=== PATIENT | female | born 1965 | race Caucasian/White ===

== ENCOUNTER 2016-07-28 15:19 | Emergency (ER) | payer OTHER, BC ==
[~2016-07-28 15:19] MED LIST: AVALOX; CEFT2ADD IM; DIFL150T OR; EFFE150C OR; HYDR25TA6 OR; IBUP800T OR; LEVAQUIN PO; LISI40TA OR; LODINE; LYRI300C OR; PREV30TA OR; VIT D 2000 PO; XOPE1.252 IN; ZYZOL PO
[2016-07-28] MEDS ORDERED: PERCOCET 5MG/325MG TAB As Ordered ONE (16:57)
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
--- NOTE | 2016-07-28 18:33 | REP ---
Bilateral wrist series: Eight views: History: Trauma. Findings: Four views of the right wrist demonstrate normal bones, joints, and soft tissues. No fracture or subluxation is seen. Four views of the left wrist demonstrate normal bones, joints, and soft tissues as well. Impression: Negative bilateral wrist series. No fracture seen. Signed by Oziel Davison MD 07/28/2016 08:06 P
--- NOTE | 2016-07-28 18:34 | REP ---
Right knee series: Five views: History: Trauma. Findings: There is medial and patellofemoral compartment osteoarthritic spurring. No fracture or subluxation is seen. No evidence of joint effusion. Impression: Osteoarthritis. No fracture or other acute bony abnormality. Signed by Oziel Davison MD 07/28/2016 08:06 P
--- NOTE | 2016-07-28 18:35 | REP ---
Left ankle series: Four views: History: Trauma. Comparison radiographs of the left foot are reviewed from 11/27/2010. Findings: Four views of the left ankle demonstrate tibiotalar osteophyte formation posteriorly. Plantar calcaneal spurring is noted. No fracture is seen. Ankle mortise is intact. Impression: No fracture noted. Signed by Oziel Davison MD 07/28/2016 08:06 P
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
== END 2016-07-28 17:51 | disposition home or self-care (01) ==
LOC: M ED 15:19
DX: S60.211A Contusion of right wrist, initial encounter (principal); S60.212A Contusion of left wrist, initial encounter; S80.01XA Contusion of right knee, initial encounter; S90.02XA Contusion of left ankle, initial encounter; J30.2 Other seasonal allergic rhinitis; M06.9 Rheumatoid arthritis, unspecified; I10 Essential (primary) hypertension; Z79.899 Other long term (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; Z91.030 Bee allergy status; V49.40XA Driver injured in collision with unspecified motor vehicles in traffic accident, initial encounter; Y92.410 Unspecified street and highway as the place of occurrence of the external cause; Y93.89 Activity, other specified; Y99.9 Unspecified external cause status

== ENCOUNTER → 2016-08-05 | Outpatient (CLI) | payer BC, OTHER ==
[~2016-08-05] MED LIST changes: +METHACHOLINE KIT (J7674) INH ONE
== END ==
LOC: M CARPUL 07-15 13:00
PROVIDERS: ATTEND Nurse Practitioner Adult Health
DX: R05 Cough (principal); Z53.9 Procedure and treatment not carried out, unspecified reason

== ENCOUNTER → 2016-08-08 | Outpatient (CLI) | payer OTHER, BC ==
[~2016-08-08] MED LIST changes: -METHACHOLINE KIT (J7674) INH ONE
--- NOTE | 2016-08-08 12:51 | REP ---
THORACIC SPINE, THREE VIEWS: HISTORY: Muscle strain. There is no acute fracture or subluxation. The intervertebral discs are normal in height. Osteophytes are present in the mid and lower thoracic spine. A dorsal column stimulator is present in the spinal canal with the tip at the T6-7 level. IMPRESSION: Degenerative change as described above. Signed by Ramu Dunbar MD 08/08/2016 01:02 P
--- NOTE | 2016-08-08 12:53 | REP ---
LUMBAR SPINE, FIVE VIEWS: HISTORY: Muscle strain. COMPARISON: 02/09/2005. The patient is status post L5-S1 anterior and posterior spinal fusion. Metal cages are present anteriorly and metal rods and pedicle screws posteriorly. There is no acute fracture or subluxation. The L3-4 and L4-5 intervertebral discs are decreased in height consistent with disc degeneration. Osteophytes are present on L3 and 4. The facet joints are normal in appearance. IMPRESSION: The patient is status post L5-S1 anterior and posterior spinal fusion. There is anatomic alignment of the lumbar spine. Signed by Ramu Dunbar MD 08/08/2016 01:02 P
== END ==
LOC: M RAD 11:58
PROVIDERS: ATTEND Nurse Practitioner Family
DX: M51.34 Other intervertebral disc degeneration, thoracic region (principal); M51.26 Other intervertebral disc displacement, lumbar region; M54.16 Radiculopathy, lumbar region; M96.1 Postlaminectomy syndrome, not elsewhere classified; Z98.1 Arthrodesis status; M25.539 Pain in unspecified wrist; G62.9 Polyneuropathy, unspecified; I10 Essential (primary) hypertension; T14.8 Other injury of unspecified body region; Y92.89 Other specified places as the place of occurrence of the external cause; M25.572 Pain in left ankle and joints of left foot; M25.561 Pain in right knee

== ENCOUNTER → 2016-08-15 | Outpatient (CLI) | payer BC, OTHER ==
--- NOTE | 2016-08-15 17:06 | REP ---
Focused left breast sonography: History: Left breast cellulitis 4 o'clock. Question abscess. Findings: The left breast is scanned at about the 4 o'clock region. No abnormal fluid collection is seen. Slightly heterogeneous fibroglandular background echotexture is seen. Impression: BIRADS category 1 negative focused left breast sonography. No evidence of mass or abscess. Signed by Oziel Davison MD 08/15/2016 05:47 P
== END ==
LOC: M RAD 14:55
PROVIDERS: ATTEND Family Medicine
DX: N61.0 Mastitis without abscess (principal)

== ENCOUNTER → 2017-01-01 | Outpatient (CLI) | payer OTHER, BC ==
[2017-01-01 11:45] LABS: ANION GAP 8 MEQ/L (8-16); BLOOD UREA NITROGEN 13 MG/DL (7-18); CALCIUM LEVEL 8.7 MG/DL (8.5-10.1); CARBON DIOXIDE LEVEL 31 MEQ/L (21-32); CHLORIDE LEVEL 102 MEQ/L (98-107); CREATININE FOR GFR 0.62 MG/DL (0.55-1.02); GLOMERULAR FILTRATION RATE > 60.0 (>51); GLUCOSE, FASTING 133 MG/DL (70-105); SODIUM LEVEL 141 MEQ/L (136-145)
== END ==
LOC: M LAB 10:54
PROVIDERS: ATTEND Orthopaedic Surgery
DX: Z51.81 Encounter for therapeutic drug level monitoring (principal); Z79.899 Other long term (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

== ENCOUNTER → 2017-01-05 | Outpatient (CLI) | payer BC, OTHER ==
[2017-01-05 14:53] LABS: ANION GAP 11 MEQ/L (8-16); BLOOD UREA NITROGEN 14 MG/DL (7-18); CALCIUM LEVEL 8.2 MG/DL (8.5-10.1); CARBON DIOXIDE LEVEL 27 MEQ/L (21-32); CHLORIDE LEVEL 103 MEQ/L (98-107); CREATININE FOR GFR 0.56 MG/DL (0.55-1.02); GLOMERULAR FILTRATION RATE > 60.0 (>51); GLUCOSE, FASTING 117 MG/DL (70-105); POTASSIUM SERUM 3.5 MEQ/L (3.5-5.1); SODIUM LEVEL 141 MEQ/L (136-145)
== END ==
LOC: M WUC 12:32
PROVIDERS: ATTEND Physician Assistant Medical
DX: R73.01 Impaired fasting glucose (principal); Z79.899 Other long term (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

== ENCOUNTER 2017-05-19 09:04 | Outpatient (RCR) | payer OTHER | END 2017-05-31 | LOC: M PT 09:04 | DX: Z51.89 Encounter for other specified aftercare (principal); M25.561 Pain in right knee; G89.29 Other chronic pain | CPT/HCPCS: 97010 ==

== ENCOUNTER 2017-06-03 12:47 | Outpatient (RCR) | payer OTHER | END 2017-07-01 | LOC: M PT 12:47 | DX: Z51.89 Encounter for other specified aftercare (principal); M25.511 Pain in right shoulder; G89.29 Other chronic pain | CPT/HCPCS: 97010 ==

== ENCOUNTER → 2017-07-17 | Outpatient (CLI) | payer BC, OTHER ==
[2017-07-17 13:26] LABS: BASO # 0.1 10^3/uL (0.0-0.2); BASO % 0.7 % (0.0-1.0); EOS # 0.2 10^3/uL (0.0-0.50); EOS % 2.6 % (0.0-3.0); HEMATOCRIT 39.2 % (36.0-47.0); HEMOGLOBIN 12.6 g/dl (12.0-16.0); IMMATURE GRANULOCYTE % 0.4 % (0-3.0); LYMPH # 3.2 10^3/uL (1.5-4.5); LYMPH % 46.2 % (24.0-44.0); MEAN CORPUSCULAR HEMOGLOBIN 29.2 pg (27.0-33.0); MEAN CORPUSCULAR HGB CONC 32.1 g/dl (32.0-36.5); MEAN CORPUSCULAR VOLUME 90.7 fl (80.0-96.0); MONO # 0.3 10^3/uL (0.0-0.8); MONO % 4.9 % (0.0-5.0); NEUTROPHILS # 3.1 10^3/uL (1.8-7.7); NEUTROPHILS % 45.2 % (36.0-66.0); PLATELET COUNT, AUTOMATED 267 10^3/uL (150-450); RED BLOOD COUNT 4.32 10^6/uL (4.00-5.40); RED CELL DISTRIBUTION WIDTH 13.5 % (11.5-14.5); WHITE BLOOD COUNT 6.9 10^3/uL (4.0-10.0)
[2017-07-17 13:48] LABS: ESTIMATED AVERAGE GLUCOSE 137 MG/DL (60-110); HEMOGLOBIN A1c 6.4 %
[2017-07-17 13:54] LABS: ALBUMIN/GLOBULIN RATIO 1.21 (1.00-1.93); ALKALINE PHOSPHATASE 72 U/L (45-117); ALT/SGPT 42 U/L (12-78); ANION GAP 7 MEQ/L (8-16); AST/SGOT 22 U/L (7-37); BILIRUBIN,TOTAL 0.6 MG/DL (0.2-1.0); BLOOD UREA NITROGEN 17 MG/DL (7-18); CALCIUM LEVEL 8.7 MG/DL (8.5-10.1); CARBON DIOXIDE LEVEL 32 MEQ/L (21-32); CHLORIDE LEVEL 102 MEQ/L (98-107); CHOLESTEROL LEVEL 155 MG/DL (<200); CHOLESTEROL RISK RATIO 2.719 (<5); CREATININE FOR GFR 0.68 MG/DL (0.55-1.30); GLOMERULAR FILTRATION RATE > 60.0 (>51); GLUCOSE, FASTING 108 MG/DL (70-100); HDL CHOLESTEROL 57 MG/DL (>40); NON-HDL-C 98 MG/DL; POTASSIUM SERUM 3.9 MEQ/L (3.5-5.1); SODIUM LEVEL 141 MEQ/L (136-145); TOTAL PROTEIN 7.3 GM/DL (6.4-8.2); TRIGLYCERIDES LEVEL 145 MG/DL (<150)
[2017-07-17 14:07] LABS: CREATININE, URINE 29.7 MG/DL; MALB URINE SIEMENS < 5.0 MG/L; MAU/CREAT RATIO 16.8 MCG/MG (0.0-30.0)
== END ==
LOC: M SMT 11:46
DX: E11.9 Type 2 diabetes mellitus without complications (principal); I10 Essential (primary) hypertension
CPT/HCPCS: 80053

== ENCOUNTER 2017-11-26 07:58 | Day surgery (SDC) | payer BC, OTHER ==
[~2017-11-26 07:58] MED LIST changes: -AVALOX; -CEFT2ADD IM; -DIFL150T OR; -EFFE150C OR; -HYDR25TA6 OR; -IBUP800T OR; -LEVAQUIN PO; +LIDOCAINE 2% INJ 100 MG/5 ML SDV (FOR ANES.) As Ordered; -LISI40TA OR; -LODINE; -LYRI300C OR; -PREV30TA OR; +PROPOFOL 200 MG/20 ML VIAL As Ordered; -VIT D 2000 PO; -XOPE1.252 IN; -ZYZOL PO
[2017-11-26] MEDS: NS 1,000 ML IV (08:15)
[2017-11-26] MEDS ORDERED: LABETALOL HCL 100 MG/20 ML VIAL As Ordered ×2 (09:12)
== END 2017-11-26 10:04 | disposition home or self-care (01) ==
LOC: M OPP 07:58
DX: Z12.11 Encounter for screening for malignant neoplasm of colon (principal); R00.8 Other abnormalities of heart beat; I10 Essential (primary) hypertension; E78.5 Hyperlipidemia, unspecified; E11.9 Type 2 diabetes mellitus without complications; M06.9 Rheumatoid arthritis, unspecified; M54.9 Dorsalgia, unspecified; M79.7 Fibromyalgia; M35.00 Sjogren syndrome, unspecified; M51.9 Unspecified thoracic, thoracolumbar and lumbosacral intervertebral disc disorder; F41.9 Anxiety disorder, unspecified; R51 Headache; Z97.8 Presence of other specified devices; Z78.0 Asymptomatic menopausal state; G47.30 Sleep apnea, unspecified; J45.909 Unspecified asthma, uncomplicated; Z98.1 Arthrodesis status; Z98.84 Bariatric surgery status; Z88.1 Allergy status to other antibiotic agents; Z91.030 Bee allergy status; Z79.4 Long term (current) use of insulin; Z79.899 Other long term (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
CPT/HCPCS: G0121

== ENCOUNTER → 2018-02-15 | Outpatient (CLI) | payer BC, OTHER ==
[2018-02-15 15:08] LABS: ANION GAP 10 MEQ/L (8-16); BLOOD UREA NITROGEN 24 MG/DL (7-18); CALCIUM LEVEL 9.1 MG/DL (8.5-10.1); CARBON DIOXIDE LEVEL 30 MEQ/L (21-32); CHLORIDE LEVEL 102 MEQ/L (98-107); CHOLESTEROL LEVEL 137 MG/DL (<200); CHOLESTEROL RISK RATIO 2.537 (<5); GLOMERULAR FILTRATION RATE > 60.0 (>51); GLUCOSE, FASTING 113 MG/DL (70-100); HDL CHOLESTEROL 54 MG/DL (>40); LDL CHOLESTEROL 59 MG/DL (<100); NON-HDL-C 83 MG/DL; SODIUM LEVEL 142 MEQ/L (136-145); TRIGLYCERIDES LEVEL 119 MG/DL (<150)
[2018-02-15 15:27] LABS: ESTIMATED AVERAGE GLUCOSE 128 MG/DL (60-110); HEMOGLOBIN A1c 6.1 %
== END ==
LOC: M SMT 08:47
DX: E11.9 Type 2 diabetes mellitus without complications (principal)
CPT/HCPCS: 83036

== ENCOUNTER → 2018-06-07 | Outpatient (CLI) | payer OTHER, BC ==
[~2018-06-07] MED LIST changes: +ALDA25TA2 PO; +ATOR40TA75 PO; +AVALOX; +CEFT2ADD IM; +CLON1TAB8 PO; +CYCL10TA PO; +DICL75TA PO; +DIFL150T OR; +EFFE150C PO; +FISH1000 PO; +GABA-843 PO; +HUMI40KI2 SC; +HYDR-3716 PO; +HYDR25TA6 OR; +HYDR25TAB PO; +IBUP800T OR; +LEUC5TA PO; +LEVAQUIN PO; -LIDOCAINE 2% INJ 100 MG/5 ML SDV (FOR ANES.) As Ordered; +LISI40TA OR; +LODINE; +LOSA100T50 PO; +LYRI300C OR; +METF10004 PO; +METH2.5T48 PO; +POTA10TA16 PO; +POTA10TA17 PO; +PREV30TA OR; -PROPOFOL 200 MG/20 ML VIAL As Ordered; +REST0.057 OU; +VIT D 2000 PO; +XOPE1.252 IN; +ZYZOL PO
[2018-06-07 13:31] LABS: BLOOD UREA NITROGEN 21 MG/DL (7-18); CALCIUM LEVEL 8.3 MG/DL (8.5-10.1); CARBON DIOXIDE LEVEL 27 MEQ/L (21-32); CHLORIDE LEVEL 104 MEQ/L (98-107); CREATININE FOR GFR 0.71 MG/DL (0.55-1.30); GLOMERULAR FILTRATION RATE > 60.0 (>51); GLUCOSE, FASTING 129 MG/DL (70-100); POTASSIUM SERUM 3.8 MEQ/L (3.5-5.1); SODIUM LEVEL 141 MEQ/L (136-145)
[2018-06-07 14:06] LABS: HEMOGLOBIN A1c 6.6 %
== END ==
LOC: M WUC 09:52
PROVIDERS: ATTEND Family Medicine
DX: I10 Essential (primary) hypertension (principal); E11.9 Type 2 diabetes mellitus without complications

== ENCOUNTER → 2018-09-21 | Outpatient (CLI) | payer BC, OTHER, MEDICARE ==
[~2018-09-21] MED LIST changes: +ACTE20IN SC; +BACL10TA2; +CEVI30CAP PO; +KLON0.5T PO; +LACRILUBE
[2018-09-21 19:06] LABS: BASO # 0.1 10^3/uL (0.0-0.2); BASO % 1.1 % (0.0-1.0); EOS # 0.3 10^3/uL (0.0-0.50); EOS % 3.9 % (0.0-3.0); HEMOGLOBIN 13.4 g/dl (12.0-15.5); LYMPH # 3.2 10^3/uL (1.5-4.5); LYMPH % 39.7 % (24.0-44.0); MEAN CORPUSCULAR HGB CONC 33.5 g/dl (32.0-36.5); MEAN CORPUSCULAR VOLUME 95.5 fl (80.0-96.0); MONO # 0.6 10^3/uL (0.0-0.8); MONO % 7.6 % (0.0-5.0); NEUTROPHILS # 3.8 10^3/uL (1.8-7.7); NEUTROPHILS % 46.8 % (36.0-66.0); PLATELET COUNT, AUTOMATED 291 10^3/uL (150-450); RED BLOOD COUNT 4.19 10^6/uL (4.00-5.40)
[2018-09-21 20:08] LABS: ALBUMIN 4.2 GM/DL (3.2-5.2); ALT/SGPT 35 U/L (12-78); BILIRUBIN,TOTAL 0.5 MG/DL (0.2-1.0); BLOOD UREA NITROGEN 19 MG/DL (7-18); CALCIUM LEVEL 8.7 MG/DL (8.5-10.1); CARBON DIOXIDE LEVEL 29 MEQ/L (21-32); CHLORIDE LEVEL 104 MEQ/L (98-107); CREATININE FOR GFR 0.92 MG/DL (0.55-1.30); FREE T4 1.03 NG/DL (0.76-1.46); GLOMERULAR FILTRATION RATE > 60.0 (>51); GLUCOSE, FASTING 75 MG/DL (70-100); POTASSIUM SERUM 4.3 MEQ/L (3.5-5.1); SODIUM LEVEL 141 MEQ/L (136-145); TOTAL 25(OH) VITAMIN D 36.8 NG/ML (30.0-100.0); TOTAL PROTEIN 7.2 GM/DL (6.4-8.2)
== END ==
LOC: M SMT 14:19
PROVIDERS: ATTEND Physician Assistant
DX: R53.83 Other fatigue (principal)

== ENCOUNTER → 2018-09-22 | Outpatient (REF) | payer OTHER, MEDICARE | LOC: M LAB REF 18:08 | PROVIDERS: ATTEND Physician Assistant | DX: J20.9 Acute bronchitis, unspecified (principal) ==

== ENCOUNTER → 2018-10-27 | Outpatient (CLI) | payer OTHER, MEDICARE ==
[2018-10-27 18:28] LABS: ALBUMIN 4.1 GM/DL (3.2-5.2); ALT/SGPT 56 U/L (12-78); BILIRUBIN,TOTAL 0.8 MG/DL (0.2-1.0); BLOOD UREA NITROGEN 17 MG/DL (7-18); CALCIUM LEVEL 8.8 MG/DL (8.5-10.1); CARBON DIOXIDE LEVEL 30 MEQ/L (21-32); CHLORIDE LEVEL 103 MEQ/L (98-107); CREATININE FOR GFR 0.78 MG/DL (0.55-1.30); GLOMERULAR FILTRATION RATE > 60.0 (>51); GLUCOSE, FASTING 115 MG/DL (70-100); MAGNESIUM LEVEL 1.6 MG/DL (1.8-2.4); POTASSIUM SERUM 3.6 MEQ/L (3.5-5.1); SODIUM LEVEL 142 MEQ/L (136-145)
[2018-10-27 18:43] LABS: BASO # 0.1 10^3/uL (0.0-0.2); BASO % 1.2 % (0.0-1.0); EOS # 0.2 10^3/uL (0.0-0.50); EOS % 2.8 % (0.0-3.0); HEMATOCRIT 37.8 % (36.0-47.0); HEMOGLOBIN 12.8 g/dl (12.0-15.5); LYMPH # 2.3 10^3/uL (1.5-4.5); MEAN CORPUSCULAR HEMOGLOBIN 31.9 pg (27.0-33.0); MEAN CORPUSCULAR HGB CONC 33.9 g/dl (32.0-36.5); MEAN CORPUSCULAR VOLUME 94.3 fl (80.0-96.0); MONO # 0.6 10^3/uL (0.0-0.8); MONO % 9.1 % (0.0-5.0); NEUTROPHILS # 3.3 10^3/uL (1.8-7.7); NEUTROPHILS % 51.4 % (36.0-66.0); PLATELET COUNT, AUTOMATED 251 10^3/uL (150-450); RED BLOOD COUNT 4.01 10^6/uL (4.00-5.40); WHITE BLOOD COUNT 6.5 10^3/uL (4.0-10.0)
== END ==
LOC: M SMT 14:46
PROVIDERS: ATTEND Physician Assistant
DX: R19.7 Diarrhea, unspecified (principal)

== ENCOUNTER → 2018-12-14 | Outpatient (CLI) | payer OTHER, MEDICARE ==
[2018-12-14 17:57] LABS: ALBUMIN 4.3 GM/DL (3.2-5.2); ALT/SGPT 38 U/L (12-78); BILIRUBIN,TOTAL 0.7 MG/DL (0.2-1.0); BLOOD UREA NITROGEN 15 MG/DL (7-18); CALCIUM LEVEL 9.3 MG/DL (8.5-10.1); CARBON DIOXIDE LEVEL 31 MEQ/L (21-32); CHLORIDE LEVEL 102 MEQ/L (98-107); CREATININE FOR GFR 0.73 MG/DL (0.55-1.30); GLOMERULAR FILTRATION RATE > 60.0 (>51); GLUCOSE, FASTING 92 MG/DL (70-100); POTASSIUM SERUM 3.4 MEQ/L (3.5-5.1); SODIUM LEVEL 140 MEQ/L (136-145); TOTAL PROTEIN 7.2 GM/DL (6.4-8.2)
[2018-12-14 18:43] LABS: HEMOGLOBIN A1c 5.8 %
== END ==
LOC: M SMT 14:31
PROVIDERS: ATTEND Physician Assistant
DX: Z01.818 Encounter for other preprocedural examination (principal); E11.9 Type 2 diabetes mellitus without complications

== ENCOUNTER → 2019-03-17 | Outpatient (CLI) | payer OTHER, MEDICARE ==
[2019-03-17 13:18] LABS: BASO # 0.1 10^3/uL (0.0-0.2); BASO % 1.2 % (0.0-1.0); EOS # 0.2 10^3/uL (0.0-0.5); EOS % 3.6 % (0.0-3.0); HEMATOCRIT 39.2 % (36.0-47.0); HEMOGLOBIN 13.2 g/dl (12.0-15.5); LYMPH # 2.2 10^3/uL (1.5-5.0); LYMPH % 44.4 % (24.0-44.0); MEAN CORPUSCULAR HEMOGLOBIN 31.2 pg (27.0-33.0); MEAN CORPUSCULAR HGB CONC 33.7 g/dl (32.0-36.5); MEAN CORPUSCULAR VOLUME 92.7 fl (80.0-96.0); MONO # 0.4 10^3/uL (0.0-0.8); MONO % 8.8 % (0.0-5.0); NEUTROPHILS # 2.1 10^3/uL (1.5-8.5); NEUTROPHILS % 41.8 % (36.0-66.0); PLATELET COUNT, AUTOMATED 202 10^3/uL (150-450); RED BLOOD COUNT 4.23 10^6/uL (4.00-5.40)
[2019-03-17 13:31] LABS: ALT/SGPT 26 U/L (12-78); BILIRUBIN,TOTAL 0.8 MG/DL (0.2-1.0); BLOOD UREA NITROGEN 13 MG/DL (7-18); CALCIUM LEVEL 9.1 MG/DL (8.5-10.1); CARBON DIOXIDE LEVEL 26 MEQ/L (21-32); CHLORIDE LEVEL 108 MEQ/L (98-107); CREATININE FOR GFR 0.77 MG/DL (0.55-1.30); FREE T4 0.84 NG/DL (0.76-1.46); GLOMERULAR FILTRATION RATE > 60.0 (>51); GLUCOSE, FASTING 118 MG/DL (70-100); POTASSIUM SERUM 3.6 MEQ/L (3.5-5.1); SODIUM LEVEL 142 MEQ/L (136-145); THYROID STIMULATING HORMONE 0.776 uIU/ML (0.358-3.740); TOTAL PROTEIN 6.8 GM/DL (6.4-8.2)
[2019-03-17 13:37] LABS: HEMOGLOBIN A1c 6.1 %
== END ==
LOC: M WUC 10:46
PROVIDERS: ATTEND Family Medicine
DX: R63.4 Abnormal weight loss (principal); E11.9 Type 2 diabetes mellitus without complications

== ENCOUNTER → 2019-04-08 | Outpatient (REF) | payer OTHER, MEDICARE | LOC: M LAB REF 12:09 | PROVIDERS: ATTEND Internal Medicine Gastroenterology | DX: R19.7 Diarrhea, unspecified (principal); R10.84 Generalized abdominal pain ==

== ENCOUNTER → 2019-04-26 | Outpatient (CLI) | payer BC, OTHER, MEDICARE ==
[2019-04-26 15:33] LABS: BLOOD UREA NITROGEN 11 MG/DL (7-18); GLOMERULAR FILTRATION RATE > 60.0 (>51)
== END ==
LOC: M LAB 14:24
PROVIDERS: ATTEND Family Medicine
DX: R19.7 Diarrhea, unspecified (principal)

== ENCOUNTER → 2019-05-08 | Outpatient (CLI) | payer BC, OTHER, MEDICARE ==
[2019-05-08 20:18] LABS: ALBUMIN 3.8 GM/DL (3.2-5.2); ALT/SGPT 27 U/L (12-78); BILIRUBIN,TOTAL 0.6 MG/DL (0.2-1.0); BLOOD UREA NITROGEN 13 MG/DL (7-18); CALCIUM LEVEL 8.9 MG/DL (8.5-10.1); CARBON DIOXIDE LEVEL 32 MEQ/L (21-32); CHLORIDE LEVEL 104 MEQ/L (98-107); CREATININE FOR GFR 0.76 MG/DL (0.55-1.30); GLOMERULAR FILTRATION RATE > 60.0 (>51); GLUCOSE, FASTING 108 MG/DL (70-100); POTASSIUM SERUM 3.7 MEQ/L (3.5-5.1); SODIUM LEVEL 141 MEQ/L (136-145)
== END ==
LOC: M WUC 15:23
PROVIDERS: ATTEND Internal Medicine Gastroenterology
DX: R10.84 Generalized abdominal pain (principal); R19.7 Diarrhea, unspecified; R11.2 Nausea with vomiting, unspecified

== ENCOUNTER → 2019-05-16 | Outpatient (CLI) | payer BC, OTHER, MEDICARE ==
[~2019-05-16] MED LIST changes: +GASTROGRAFIN SOLUTION 30ML (Q9963) As Ordered ONE; +ISOVUE-370 76% 100ML VIAL (Q9967) As Ordered ONE
--- NOTE | 2019-05-16 14:18 | REP ---
CT ABDOMEN AND PELVIS WITH ORAL AND IV CONTRAST: TECHNIQUE: Axial contrast enhanced images from the lung bases to the pubic symphysis using 100 mL Isovue 370 intravenous contrast material with multiplanar reformations. The visualized lung bases demonstrate no infiltrate. The liver demonstrates a cyst at the dome 1.6 cm in diameter. No biliary dilatation is seen. Spleen is normal in size with no intrinsic abnormality. There is a left adrenal nodule, which is unchanged since the prior CT of 06/08/2015 measuring 1.5 cm in diameter. Pancreas demonstrates no mass. Kidneys demonstrate no mass or hydronephrosis. There is no abdominal aortic aneurysm. There is no adenopathy. There is no free air or free fluid. There is no bowel wall thickening. The patient has had a hysterectomy. There is a cystic structure in the left ovary which is unchanged since the 06/08/2015 CT measuring 1.5 cm in diameter. Urinary bladder is mildly distended and appears grossly unremarkable. Metallic fixation is seen at the lumbosacral junction. Surgical sutures are seen in the upper abdomen. IMPRESSION: Stable left adrenal nodule and stable small cystic structure left ovary. No adenopathy, free air or free fluid. No bowel wall abnormality. No pelvic mass. Electronically Signed by Jose Joy MD 05/17/2019 03:55 P
== END ==
LOC: M RAD 11:11
PROVIDERS: ATTEND Internal Medicine Gastroenterology
DX: R10.84 Generalized abdominal pain (principal); R19.7 Diarrhea, unspecified; R11.2 Nausea with vomiting, unspecified
CPT/HCPCS: 74177; Q9963; Q9967

== ENCOUNTER → 2019-07-12 | Outpatient (REF) | payer OTHER, MEDICARE ==
[~2019-07-12] MED LIST changes: -GASTROGRAFIN SOLUTION 30ML (Q9963) As Ordered ONE; -ISOVUE-370 76% 100ML VIAL (Q9967) As Ordered ONE
== END ==
LOC: M LAB REF 14:45
PROVIDERS: ATTEND Internal Medicine Gastroenterology
DX: R19.7 Diarrhea, unspecified (principal); K58.0 Irritable bowel syndrome with diarrhea; R10.9 Unspecified abdominal pain; R63.4 Abnormal weight loss

== ENCOUNTER → 2019-07-18 | Outpatient (CLI) | payer BC, OTHER, MEDICARE ==
[~2019-07-18] MED LIST changes: +E-Z-PAQUE 96% w/w SUSP 176GM BTL As Ordered ONE
--- NOTE | 2019-07-19 10:55 | REP ---
Examination Requested: SBFT Reason For Exam: Diarrhea Small Bowel Follow Through The procedure was performed by ARIK Buckner, under the direct supervision of Dr. Davison. The images were reviewed with Dr. Davison. The stewardesses teacher film shows no organomegaly or pathological masses. There is a dorsal column stimulator in the right upper quadrant. The transverse colon is distended with air. There is moderate amount of stool visualized in the ascending and descending colon. The barium was administered and the barium column was followed through the small bowel to the level of the terminal ileum. Small bowel transit time was approximately 5 hours and 30 minutes. During fluoroscopy gentle palpation shows all loops are freely mobile and pliable. There are no fixed or angulated loops. The small bowel mucosal pattern is normal in course and caliber. There is no transition to suggest a partial small-bowel obstruction. Spot filming of the terminal ileum shows it to be unremarkable. Impression: 1. Delayed small bowel transit with unremarkable spot imaging of the terminal ileum. 0.5 minutes of fluoroscopy time was utilized for this procedure. Some fluoroscopic images are performed with last image hold technology. These images require no additional radiation. Reviewed by ARIK Toney 07/18/2019 04:38 P Electronically Signed by Oziel Davison MD 07/19/2019 10:46 A
== END ==
LOC: M RAD 08:06
PROVIDERS: ATTEND Internal Medicine Gastroenterology
DX: R19.7 Diarrhea, unspecified (principal)

== ENCOUNTER → 2019-08-19 | Outpatient (REF) | payer OTHER, MEDICARE ==
[~2019-08-19] MED LIST changes: -E-Z-PAQUE 96% w/w SUSP 176GM BTL As Ordered ONE
== END ==
LOC: M LAB REF 15:18
PROVIDERS: ATTEND Physician Assistant
DX: J06.9 Acute upper respiratory infection, unspecified (principal)
CPT/HCPCS: 87486; 87581; 87633; 87798; U0002

== ENCOUNTER → 2019-10-03 | Outpatient (CLI) | payer OTHER, MEDICARE ==
[~2019-10-03] MED LIST changes: +CYCL-707 PO; -CYCL10TA PO
[2019-10-03 12:51] LABS: BLOOD UREA NITROGEN 21 MG/DL (7-18); CREATININE FOR GFR 0.76 MG/DL (0.55-1.30); GLOMERULAR FILTRATION RATE > 60.0 (>51)
[2019-10-06 08:06] LABS: GASTRIN 18 pg/mL (0-115); SEROTONIN QUANTITATIVE LEVEL 9 ng/mL (0-420)
== END ==
LOC: M WUC 09:16
PROVIDERS: ATTEND Internal Medicine Gastroenterology
DX: R19.7 Diarrhea, unspecified (principal)

== ENCOUNTER → 2019-10-30 | Outpatient (CLI) | payer BC, MEDICARE | LOC: M LAB 08:04 | PROVIDERS: ATTEND Internal Medicine Gastroenterology ==

== ENCOUNTER → 2019-10-31 | Outpatient (REF) | payer BC, MEDICARE | LOC: M LAB REF 10:38 | PROVIDERS: ATTEND Internal Medicine Gastroenterology | DX: K31.89 Other diseases of stomach and duodenum (principal); K22.8 Other specified diseases of esophagus; K22.2 Esophageal obstruction; Z48.815 Encounter for surgical aftercare following surgery on the digestive system ==

== ENCOUNTER 2020-01-19 10:47 | Emergency (ER) | payer BC, OTHER, MEDICARE ==
--- NOTE | 2020-01-19 11:36 | REPVR ---
PROCEDURE INFORMATION: Exam: XR Chest, 1 View Exam date and time: 01/19/2020 11:15 AM Age: 54 years old Clinical indication: Cough and dyspnea; Additional info: Dyspnea/cough TECHNIQUE: Imaging protocol: XR of the chest Views: 1 view. COMPARISON: CR Chest, 1 view 09/01/2018 7:51 PM FINDINGS: Tubes, catheters and devices: AICD. Neuro muscular stimulation device. Lungs: Hypoinflation, without acute airspace disease. Pleural space: No pleural effusion. Heart/Mediastinum: No cardiomegaly. Bones/joints: Right shoulder arthroplasty. Degenerative change. Gastrointestinal tract: Bowel dilatation and prominent stool in the visualized upper abdomen. IMPRESSION: Hypoinflation, without acute airspace or pleural disease. Electronically signed by: Lucien Gomes On 01/19/2020 11:37:09 AM
[2020-01-19 12:37] LABS: BASO # 0.1 10^3/uL (0.0-0.2); BASO % 0.7 % (0.0-1.0); EOS # 0.1 10^3/uL (0.0-0.5); EOS % 1.8 % (0.0-3.0); HEMATOCRIT 39.7 % (36.0-47.0); HEMOGLOBIN 13.4 g/dl (12.0-15.5); LYMPH # 1.2 10^3/uL (1.5-5.0); LYMPH % 17.4 % (24.0-44.0); MEAN CORPUSCULAR HGB CONC 33.8 g/dl (32.0-36.5); MEAN CORPUSCULAR VOLUME 94.7 fl (80.0-96.0); MONO # 0.4 10^3/uL (0.0-0.8); MONO % 5.8 % (0.0-5.0); NEUTROPHILS % 73.7 % (36.0-66.0); PLATELET COUNT, AUTOMATED 152 10^3/uL (150-450); RED BLOOD COUNT 4.19 10^6/uL (4.00-5.40); WHITE BLOOD COUNT 6.8 10^3/uL (4.0-10.0)
[2020-01-19 13:11] LABS: ALBUMIN 3.4 GM/DL (3.2-5.2); ALT/SGPT 74 U/L (12-78); BILIRUBIN,DIRECT 0.1 MG/DL (0.0-0.2); BILIRUBIN,TOTAL 0.6 MG/DL (0.2-1.0); BLOOD UREA NITROGEN 19 MG/DL (7-18); CALCIUM LEVEL 8.3 MG/DL (8.5-10.1); CARBON DIOXIDE LEVEL 30 MEQ/L (21-32); CHLORIDE LEVEL 106 MEQ/L (98-107); CK-MB VALUE MASS < 1.0 NG/ML (<3.6); CPK CREATINE PHOSPHOKINASE 66 U/L (26-192); CREATININE FOR GFR 0.76 MG/DL (0.55-1.30); GLOMERULAR FILTRATION RATE > 60.0 (>51); GLUCOSE, FASTING 114 MG/DL (70-100); MB/CK RELATIVE INDEX 1.52 (< OR =4); NT-PRO BNP 127 PG/ML (<125); POTASSIUM SERUM 3.9 MEQ/L (3.5-5.1); SODIUM LEVEL 139 MEQ/L (136-145); TOTAL PROTEIN 6.5 GM/DL (6.4-8.2); TROPONIN I < 0.02 NG/ML (< 0.10)
[2020-01-19 14:45] VITALS: BP 133/58
--- NOTE | 2020-02-09 13:17 | ECGEPIP ---
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
== END 2020-01-19 14:45 | disposition home or self-care (01) ==
LOC: M ED 10:47
DX: J06.9 Acute upper respiratory infection, unspecified (principal); R94.31 Abnormal electrocardiogram [ECG] [EKG]; I10 Essential (primary) hypertension; K21.9 Gastro-esophageal reflux disease without esophagitis; M06.9 Rheumatoid arthritis, unspecified; Z98.84 Bariatric surgery status; Z88.1 Allergy status to other antibiotic agents; Z91.030 Bee allergy status; Z79.899 Other long term (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

== ENCOUNTER → 2020-02-08 | Outpatient (CLI) | payer OTHER, BC, MEDICARE ==
[2020-02-08 18:47] LABS: BASO # 0.1 10^3/uL (0.0-0.2); EOS # 0.2 10^3/uL (0.0-0.5); EOS % 1.8 % (0.0-3.0); HEMATOCRIT 39.6 % (36.0-47.0); HEMOGLOBIN 13.4 g/dl (12.0-15.5); LYMPH # 3.3 10^3/uL (1.5-5.0); LYMPH % 34.8 % (24.0-44.0); MEAN CORPUSCULAR HEMOGLOBIN 32.6 pg (27.0-33.0); MEAN CORPUSCULAR HGB CONC 33.8 g/dl (32.0-36.5); MEAN CORPUSCULAR VOLUME 96.4 fl (80.0-96.0); MONO # 0.7 10^3/uL (0.0-0.8); NEUTROPHILS # 5.2 10^3/uL (1.5-8.5); NEUTROPHILS % 54.6 % (36.0-66.0); PLATELET COUNT, AUTOMATED 216 10^3/uL (150-450); RED BLOOD COUNT 4.11 10^6/uL (4.00-5.40); WHITE BLOOD COUNT 9.6 10^3/uL (4.0-10.0)
[2020-02-08 18:55] LABS: ALBUMIN 4.2 GM/DL (3.2-5.2); ALT/SGPT 54 U/L (12-78); BLOOD UREA NITROGEN 21 MG/DL (7-18); CALCIUM LEVEL 8.9 MG/DL (8.5-10.1); CARBON DIOXIDE LEVEL 31 MEQ/L (21-32); CHLORIDE LEVEL 103 MEQ/L (98-107); CHOLESTEROL LEVEL 151 MG/DL (<200); CHOLESTEROL RISK RATIO 1.986 (<5); CREATININE FOR GFR 0.78 MG/DL (0.55-1.30); GLOMERULAR FILTRATION RATE > 60.0 (>51); GLUCOSE, FASTING 109 MG/DL (70-100); HDL CHOLESTEROL 76 MG/DL (>40); LDL CHOLESTEROL 51 MG/DL (<100); NON-HDL-C 75 MG/DL; POTASSIUM SERUM 3.3 MEQ/L (3.5-5.1); SODIUM LEVEL 139 MEQ/L (136-145); TOTAL PROTEIN 6.6 GM/DL (6.4-8.2); TRIGLYCERIDES LEVEL 118 MG/DL (<150)
[2020-02-08 19:12] LABS: HEMOGLOBIN A1c 6.7 %
== END ==
LOC: M WUC 11:25
PROVIDERS: ATTEND Family Medicine
DX: I10 Essential (primary) hypertension (principal); E11.9 Type 2 diabetes mellitus without complications; E78.2 Mixed hyperlipidemia

== ENCOUNTER → 2020-05-21 | Outpatient (REF) | payer OTHER, MEDICARE | LOC: M LAB REF 17:46 | PROVIDERS: ATTEND Family Medicine | DX: N39.0 Urinary tract infection, site not specified (principal) ==

== ENCOUNTER → 2020-05-23 | Outpatient (REF) | payer OTHER, MEDICARE | LOC: M LAB REF 17:51 | PROVIDERS: ATTEND Family Medicine | DX: R07.89 Other chest pain (principal); R50.9 Fever, unspecified ==

== ENCOUNTER 2020-07-11 17:45 | Inpatient (IN) | payer BC, OTHER, MEDICARE ==
[~2020-07-11] VITALS: Ht 162.6 cm; Wt 94.0 kg
[2020-07-11] MEDS: HYOSCYAMINE SULFATE 0.125 MG SUBL TABLET PO SCH (03:00)
[2020-07-11] MEDS: OMEGA-3 1000MG CAPSULE PO SCH (03:00)
[~2020-07-11 17:45] MED LIST changes: +GABA-282 PO; -GABA-843 PO; +HYDR-3490 PO; -HYDR25TAB PO
--- OUTSIDE RECORDS SUMMARY | 2020-07-11 17:52 | CCD ---
Author Organization Unknown Address [address] [place] [address] Phone [phone] Care Team Providers Care Generator Technician Name Role Phone GERARDO OGLESBY DO 3 [phone] Allergies Code Code System Name Reaction Severity Status Onset 850419 RxNorm Venom- honey Bee Active 09/27/19 16 723 RxNorm Amoxicillin Rash Mild to Moderate Active Medications Name Status Start Date Stop Date Actemra 1 injection every week Completed 06/21/2020 Actemra 162 mg/0.9 mL subcutaneous syringe Active Not available albuterol sulfate HFA 90 mcg/actuation a erosol inhaler INHALE 2 PUFFS EVERY 4 HOURS NEEDED FOR WHEEZING Active Not available amitriptyline 25 mg tablet Completed 06/21 amitriptyline 50 mg tablet TAKE 1 TABLET BY MOUTH EVERY NIGHT AT BEDTIME Active Not available aspirin 81 mg tablet,delayed release Completed 01/04/2019 atorvastatin 40 mg tablet TAKE 1 TABLET BY MOUTH ONCE EVERY EVENING Active Not available baclofen 10 mg tablet Active Not availa ble Belsomra 20 mg tablet Active Not availa ble carisoprodol 350 mg tablet Completed 06/21 cefdinir 300 mg capsule Completed 01/06/20 cefuroxime axetil 500 mg tablet Completed 06/21/2020 cevimeline 30 mg capsule TAKE 1 CAPSULE BY MOUTH THREE TIMES A DAY Active Not available cholestyramine (with sugar) 4 gram powder for susp in a packet A ctive Not available clindamycin HCl 300 mg capsule Completed 0 06/21/2020 clonazepam 1 mg disintegrating tablet DISSOLVE 1 TAB BY MOUTH DAILY IN THE MORNING FOR ANXIETY NEEDED & WITH EVENING DOSE /EQUAL 3MG Active Not available clonazepam 2 mg tablet TAKE 1 TABLET BY MOUTH ONCE NIGHTLY AT BEDTIME Active Not available colesevelam 625 mg tablet TAKE 1 TABLET BY MOUTH TWICE A DAY Active Not available cyclobenzaprine 10 mg tablet Completed diclofenac sodium 25 mg tablet,delayed r elease Take 1 tablet twice a day by oral route. Completed 06/21/2020 diclofenac sodium 75 mg tablet,delayed release Completed 06/21/2020 dicyclomine 10 mg capsule Completed 2020 dicyclomine 20 mg tablet Completed 021 diphenoxylate-atropine 2.5 mg-0.025 mg t ablet TAKE 1 TABLET BY MOUTH 4 TIMES A DAY NEEDED FOR DIARRHEA Active Not available doxycycline hyclate 100 mg tablet Completed 01/05/2019 doxycycline monohydrate 100 mg tablet Completed 07/26/2019 epinephrine 0.3 mg/0.3 mL injection, auto-injector Active Not available Fish Oil 1,000 mg (120 mg-180 mg) capsul e Take 1 capsule twice a day by oral route. Active Not available Flucelvax Quad (PF) 60 mcg (15 mcg x 4)/0.5 mL IM syringe PHARMACY ADMINISTERED Active Not available fluconazole 100 mg tablet Completed 2018 fluconazole 150 mg tablet TAKE 1 TABLET BY MOUTH THEN REPEAT IN 3 DAYS IF SYMPTOMS NOT IMPROVED Active Not available Fluzone Quad (PF) 60 mcg (15 m cg x 4)/0.5 mL IM syringe TO BE ADMINISTERED BY PHARMACIST FOR IMMUNIZATION Active Not available gabapentin 300 mg capsule Completed 2019 GaviLyte-G 236 gram-22.74 gram-6.74 gram-5.86 gram oral solution Active Not available hydrochlorothiazide 25 mg tablet TAKE 1 TABLET BY MOUTH ONCE DAILY. Active Not available hydrocodone 7.5 mg-acetaminophen 300 mg tablet Take 1 tablet as needed by oral route. Completed 07/21/2018 hydrocodone 7.5 mg-acetaminophen 325 mg tablet Take 1 tablet 3 times a day by oral route as needed. Active Not available hyoscyamine ER 0.375 mg tablet,extended release,12 hr TAKE 1 TABLET BY MOUTH TWICE A DAY Active Not available hyoscyamine sulfate 0.125 mg tablet Active Not available leucovorin calcium 5 mg tablet Active N ot available losartan 100 mg tablet TAKE 1 TABLET BY MOUTH ONCE DAILY Active Not a vailable metformin 1,000 mg tablet Completed 2020 methotrexate sodium 2.5 mg tablet Active Not available metoprolol tartrate 25 mg tablet Active Not available metronidazole 500 mg tablet Active Not available Narcan 4 mg/actuation nasal spray Active Not available nystatin 100,000 unit/gram topical cream APPLY TO RASH UNDER THE ABDOMINAL SKIN FOLDS TWICE DAILY Active Not available nystatin 100,000 unit/mL oral suspension Active Not available ondansetron 8 mg disintegrating tablet Completed 01/04/2019 Orencia ClickJect 125 mg/mL subcutaneous auto-injector Inject 1 mL every week by subcutaneous route. Active Not available oxycodone 5 mg tablet as needed Completed 01/04/2019 07/26/2019 Ozempic 0.25 mg or 0.5 mg (2 mg/1.5 mL) subcutaneous pen injector INJECT 0.5 MG SUBCUTANEOUSLY ONCE WEEKLY Active Not available phenazopyridine 200 mg tablet TAKE 1 TABLET BY MOUTH THREE TIMES A DAY FOR 7 DAYS Active Not available potassium chloride 20 mEq oral packet Take 1 packet every day by oral route. Active Not available potassium chloride ER 10 mEq tablet,extended release Active Not available potassium chloride ER 20 mEq tablet,extended release Completed 01/04/2019 potassium citrate ER 10 mEq (1,080 mg) t ablet,extended release Take 1 tablet every day by oral route. Active Not available prednisone 10 mg tablet Completed 06/21/19 prednisone 20 mg tablet Completed 07/26/19 20 prednisone 5 mg tablet Active Not avail able promethazine 25 mg tablet as needed Active Not available Restasis 0.05 % eye drops in a dropperet te INSTILL 1 DROP INTO BOTH EYES BY OPHTHALMIC ROUTE EVERY 12 HOURS Active Not available spironolactone 25 mg tablet TAKE 1 TABLET BY MOUTH EVERY DAY Active Not av ailable sulfamethoxazole 800 mg-trimethoprim 160 mg tablet TAKE 1 TABLET BY MOUTH TWICE A DAY FOR 10 DAYS Completed 06/21/2020 Suprep Bowel Prep Kit 17.5 gram-3.13 gram-1.6 gram oral solution Active Not available triamcinolone acetonide 0.1 % topical cr eam as needed Active Not available venlafaxine ER 150 mg capsule,extended release 24 hr Active Not available venlafaxine ER 75 mg capsule,extended re lease 24 hr TAKE 1 CAPSULE BY MOUTH EVERY DAY, TAKE WITH 150MG Active Not available Viberzi 75 mg tablet TAKE 1 TABLET BY MOUTH EVERY DAY Active Not av ailable Xifaxan 550 mg tablet Completed 06/21/2020 Problems Name Status Onset Date Source Neuropathy Active 08/17/2013 History Hypertensive Disorder Active 08/17/2013 History Post-laminectomy Syndrome Active 08/17/2013 Histor y Lumbosacral Radiculopathy Active 08/17/2013 Histor y Neuralgia Unknown 08/17/2013 History Pain in Left Foot Active 08/17/2013 History Transient Arthropathy Unknown 08/17/2013 History Displacement of Lumbar Intervertebral Disc without Myelopath y Unknown 09/07/2013 History Prolapsed Lumbar Intervertebral Disc Active 09/07/2013 History Traumatic AND/OR Non-traumatic Injury Active 07/31/2016 History Pain in Right Knee Active 07/31/2016 History Finding of Ankle or Foot Unknown 07/31/2016 History Finding of Wrist Region Unknown 07/31/2016 History Muscle Pain Active 02/13/2017 History Finding of Upper Limb Unknown 03/17/2017 History Inflammation of Sacroiliac Joint Active 03/09/2018 History Procedures Date Name Performed by Prosthetic Arthroplasty of Shoulder Info rmation not available 10/25/2019 CT, Lumbar Spine, W/o Contrast [facility] [address] [place] [address] (Work Place) 11/29/2019 CT, Lumbar Spine, W/o Contrast [facility] [address] [address] (Work Place) Notes: T&A in 1974, ovarian cysts and D& C in 1980 and 1985, breast reduction in 1998, total vaginal hysterectomy in 1999, laser discetomy L5-S1 in 1994 (Dr. Fisher), lumbar fusion with hardware ([address] Fisher [address] Sarmiento in [place]), gastric bypass in 2007, TVT in 2008, right knee surgery Dr. Beckford 01/15/2017, right rotator cuff Jul 28, 2017 08/24/2017 Results Lab Results Date Name Specimen Result Interpretation Description Value Range Status Address 07/26/2019 Drug Screen, Urine Urine No observation recorde d. [facility]: [address] [place] [address] 07/26/2019 [employer] Pdf Report UR No observation recorded. [facility]: [address] [place] [address] 07/26/2019 Drug Screen, Urine Urine Amphetamines: negati ve Main Office: [address], [place] Urine Thc negative Main Off ice: [address], [place] Urine Cocaine: negative Main Office: [address], [place] Urine Opiates: negative Main Office: [address], [place] Urine Barbiturates: negative Main Office: [address], [place] Urine Benzodiazepines: negative Main Office: [address], [place] Urine Methamphetamine negative Main Office: [address], [place] Urine Pcp negative Main Off ice: [address], [place] Urine Mtd negative Main Off ice: [address], [place] Urine Oxy negative Main Off ice: [address], [place] 07/26/2019 Tricyclic Antidepressants, Quantitative, Urine U Tricyclics Ur Ql Cfm >=10 NG/mL >=10 NG/mL Final [employer] [facility]: [address] [place] [address] U Amitrip Ur Cfm-mcnc 153 NG/mL >=10 N G/mL Final [employer] [employer]: [address] [place] [address] U Nortrip Ur Cfm-mcnc 24 NG/mL >=10 NG /mL Final [employer]: [address] [place] [address] 07/26/2019 Baclofen, QN, Urine U Baclofen Ur Ql C fm <500 NG/mL >=500 NG/mL Final [employer]: [address] [place] [address] 07/26/2019 Cyclobenzaprine, Quant, Urine U Cyclobenzaprine Ur Ql <10 NG/mL >=10 NG/mL Final [employer]: [address] [place] [address] 07/26/2019 Drug Screen, Urine U Buprenorphine Ur Ql Cfm <1 NG/mL >=1 NG/mL Final [employer]: [address] [place] [address] U Alcohol Metabolites Ur Ql Cfm <200 N G/mL >=200 NG/mL Final [employer]: [address] [place] [address] U Ethyl Glucuronide Ur Cfm-mcnc <500 N G/mL >=500 NG/mL Final [employer]: [address] [place] [address] U Ethyl Sulfate Ur Cfm-mcnc <200 NG/mL >=200 NG/mL Final [employer]: [address] [place] [address] U Tapentadol Ur Ql Cfm <100 NG/mL >=10 0 NG/mL Final [employer]: [address] [place] [address] U Amphetamines Ur Ql Cfm <0 NG/mL >=0 NG/mL Final [employer]: [address] [place] [address] U Benzodiaz Ur Ql Cfm >=50 NG/mL >=50 NG/mL Final [employer]: [address] [place] [address] U 7Aminoclonazepam Ur Cfm-mcnc 917 NG/ mL >=50 NG/mL Final [employer]: [address] [place] [address] U Gabapentinpregabalin Ur Ql Cfm <5 mc g/mL >=5 mcg/mL Final [employer]: [address] [place] [address] U Bze Ur Ql Cfm <50 NG/mL >=50 NG/mL F inal [employer]: [address] [place] [address] U Opiates Ur Ql Cfm <100 NG/mL >=100 N G/mL Final [employer]: [address] [place] [address] U 6Mam Ur Ql Cfm <10 NG/mL >=10 NG/mL Final [employer]: [address] [place] [address] U Methadone Ur Ql Cfm <200 NG/mL >=200 NG/mL Final [employer]: [address] [place] [address] U Meperidine Ur Ql Cfm <100 NG/mL >=10 0 NG/mL Final [employer]: [address] [place] [address] U Fentanyl+norfentanyl Ur Ql Cfm <5 NG /mL >=5 NG/mL Final [employer]: [address] [place] [address] U Carisoprodol+meprob Ur Ql Scn <200 N G/mL >=200 NG/mL Final [employer]: [address] [place] [address] U Tramadol Ur Ql Cfm <100 NG/mL >=100 NG/mL Final [employer]: [address] [place] [address] U Cotinine Ur Ql Cfm <125 NG/mL >=125 NG/mL Final [employer]: [address] [place] [address] U Normal pH Ur 8.01 4.5 - 9.0 Final [employer]: [address] [place] [address] U Normal Creat Ur-mcnc 69.8 mg/dL 20 - 370 mg /dL Final [employer]: [address] [place] [address] 07/26/2019 Antidepressants, Qualitative, Urine U Sn Reuptake Inhibitors Ur Ql >=50 NG/mL >=50 NG/mL Final [employer] [facility]: [address] [place] [address] U Venlafaxine Ur Cfm-mcnc 1800 NG/mL > =5 NG/mL Final [employer]: [address] [place] [address] U Odv Ur Cfm-mcnc [address] NG/mL >=50 NG/ mL Final [employer]: [address] [place] [address] 07/26/2019 Drug Screen, Urine [place] [address] NG/mL >=5 NG/mL Final [employer]: [address] [place] [address] UR Normal Amitrip Ur CMP 178 NG/mL >=10 NG/mL Final [employer] [facility]: [address] [place] [address] UR Normal Clonazepam Ur CMP 917 NG/mL >=50 NG/ mL Final [employer]: [address] [place] [address] UR ABNORMAL Cyclobenzaprine Ur CMP <10 NG/mL > =10 NG/mL Final [facility]: [address] [place] [address] UR ABNORMAL Baclofen Ur CMP <500 NG/mL >=500 N G/mL Final [facility] [employer]: [address] [place] [address] UR ABNORMAL Hydrocodone Ur CMP <100 NG/mL >=10 0 NG/mL Final [facility]: [address] [place] [address] 04/08/2019 Gastrointestinal (GI) Panel STOOL No observatio n recorded. : 830 [facility] 04/08/2019 Chymotrypsin, Stool Normal Chymotrypsin, St ool 2.5 U/g 2.30- 51.40 U/g [facility]: 83 0 [facility] 04/08/2019 Fat Fecal Qualitative Normal Fats Neutral norm al . [facility]: 830 [facility] Normal Fats Total normal . Final [facility]: 830 [facility] 04/08/2019 Calprotectin, Stool Normal Calprotectin Sto ol 24 ug/g 0-120 ug/g [facility]: 83 0 [facility] Past Encounters 06/21/2020 Pain in Right Knee; Pain in Left Foot; Post-laminectomy Syndrome; Inflammation of Sacroiliac Joint; Muscle Pain; Degeneration of Lumbar Intervertebral Disc; Degeneration of Lumbosacral Intervertebral Disc; Displacement of Lumbar Intervertebral Disc without Myelopathy; Intervertebral Disc Disorder; Spondylosis without Myelopathy; Lumbosacral Spondylosis without Myelopathy; Lumbar Radiculopathy; Long-term Drug Therapy Wendi Christiansonjuvencio Magdaleno PERMIT TECHNICIAN: [address] [facility], [place] [address], Ph. 03/30/2020 Pain in Right Knee; Pain in Left Foot; Post-laminectomy Syndrome; Inflammation of Sacroiliac Joint; Muscle Pain; Degeneration of Lumbar Intervertebral Disc; Degeneration of Lumbosacral Intervertebral Disc; Displacement of Lumbar Intervertebral Disc without Myelopathy; Intervertebral Disc Disorder; Spondylosis without Myelopathy; Lumbosacral Spondylosis without Myelopathy; Lumbar Radiculopathy; Long-term Drug Therapy Wendi Dolan PERMIT TECHNICIAN: [address] [address], [place] [address], Ph. 01/23/2020 Pain in Right Knee; Pain in Left Foot; Post-laminectomy Syndrome; Inflammation of Sacroiliac Joint; Muscle Pain; Degeneration of Lumbar Intervertebral Disc; Degeneration of Lumbosacral Intervertebral Disc; Displacement of Lumbar Intervertebral Disc without Myelopathy; Intervertebral Disc Disorder; Spondylosis without Myelopathy; Lumbosacral Spondylosis without Myelopathy; Lumbar Radiculopathy; Long-term Drug Therapy Wendi Dolan PERMIT TECHNICIAN: [address] [facility], [place] [address], Ph. 12/28/2019 Pain in Right Knee; Pain in Left Foot; Post-laminectomy Syndrome; Inflammation of Sacroiliac Joint; Muscle Pain; Degeneration of Lumbar Intervertebral Disc; Degeneration of Lumbosacral Intervertebral Disc; Displacement of Lumbar Intervertebral Disc without Myelopathy; Intervertebral Disc Disorder; Spondylosis without Myelopathy; Lumbosacral Spondylosis without Myelopathy; Lumbar Radiculopathy; Long-term Drug Therapy Wendi Dolan PERMIT TECHNICIAN: [address] [facility], [place] [address], Ph. 11/29/2019 Pain in Right Knee; Pain in Left Foot; Post-laminectomy Syndrome; Inflammation of Sacroiliac Joint; Muscle Pain; Degeneration of Lumbar Intervertebral Disc; Degeneration of Lumbosacral Intervertebral Disc; Displacement of Lumbar Intervertebral Disc without Myelopathy; Intervertebral Disc Disorder; Spondylosis without Myelopathy; Lumbosacral Spondylosis without Myelopathy; Lumbar Radiculopathy; Long-term Drug Therapy Wendi Dolan PERMIT TECHNICIAN: [address] [facility], [place] [address], Ph. 10/25/2019 Pain in Right Knee; Pain in Left Foot; Post-laminectomy Syndrome; Inflammation of Sacroiliac Joint; Muscle Pain; Degeneration of Lumbar Intervertebral Disc; Degeneration of Lumbosacral Intervertebral Disc; Displacement of Lumbar Intervertebral Disc without Myelopathy; Intervertebral Disc Disorder; Spondylosis without Myelopathy; Lumbosacral Spondylosis without Myelopathy; Lumbar Radiculopathy; Long-term Drug Therapy Wendi Dolan PERMIT TECHNICIAN: [address] [address], Ph. 09/26/2019 Pain in Right Knee; Pain in Left Foot; Post-laminectomy Syndrome; Inflammation of Sacroiliac Joint; Muscle Pain; Degeneration of Lumbar Intervertebral Disc; Degeneration of Lumbosacral Intervertebral Disc; Displacement of Lumbar Intervertebral Disc without Myelopathy; Intervertebral Disc Disorder; Spondylosis without Myelopathy; Lumbosacral Spondylosis without Myelopathy; Lumbar Radiculopathy; Long-term Drug Therapy Wendi Dolan PERMIT TECHNICIAN: [address] [address], Ph. 07/26/2019 Pain in Right Knee; Pain in Left Foot; Post-laminectomy Syndrome; Inflammation of Sacroiliac Joint; Muscle Pain; Degeneration of Lumbar Intervertebral Disc; Degeneration of Lumbosacral Intervertebral Disc; Displacement of Lumbar Intervertebral Disc without Myelopathy; Intervertebral Disc Disorder; Spondylosis without Myelopathy; Lumbosacral Spondylosis without Myelopathy; Lumbar Radiculopathy; Long-term Drug Therapy Wendi Dolan PERMIT TECHNICIAN: [address], [place] [address], Ph. 06/14/2019 Pain in Right Knee; Pain in Left Foot; Post-laminectomy Syndrome; Inflammation of Sacroiliac Joint; Muscle Pain; Degeneration of Lumbar Intervertebral Disc; Degeneration of Lumbosacral Intervertebral Disc; Displacement of Lumbar Intervertebral Disc without Myelopathy; Intervertebral Disc Disorder; Spondylosis without Myelopathy; Lumbosacral Spondylosis without Myelopathy; Lumbar Radiculopathy Wendi Jimenez Kanikasarmadmonty, PERMIT TECHNICIAN: [address], [place] [address], Ph. 02/11/2019 Pain in Right Knee; Pain in Left Foot; Post-laminectomy Syndrome; Inflammation of Sacroiliac Joint; Muscle Pain; Degeneration of Lumbar Intervertebral Disc; Degeneration of Lumbosacral Intervertebral Disc; Displacement of Lumbar Intervertebral Disc without Myelopathy; Intervertebral Disc Disorder; Spondylosis without Myelopathy; Lumbosacral Spondylosis without Myelopathy; Lumbar Radiculopathy Wendi Tony Magdaleno PERMIT TECHNICIAN: [address] [facility] [address], [place] [address], Ph. 01/04/2019 Pain in Right Knee; Pain in Left Foot; Post-laminectomy Syndrome; Inflammation of Sacroiliac Joint; Muscle Pain; Degeneration of Lumbar Intervertebral Disc; Degeneration of Lumbosacral Intervertebral Disc; Displacement of Lumbar Intervertebral Disc without Myelopathy; Intervertebral Disc Disorder; Spondylosis without Myelopathy; Lumbosacral Spondylosis without Myelopathy; Lumbar Radiculopathy Wendi Tony Magdaleno, PERMIT TECHNICIAN: [address], [place] [address], Ph. 09/01/2018 Pain in Right Knee; Pain in Left Foot; Post-laminectomy Syndrome; Inflammation of Sacroiliac Joint; Muscle Pain; Degeneration of Lumbar Intervertebral Disc; Degeneration of Lumbosacral Intervertebral Disc; Displacement of Lumbar Intervertebral Disc without Myelopathy; Intervertebral Disc Disorder; Spondylosis without Myelopathy; Lumbosacral Spondylosis without Myelopathy; Lumbar Radiculopathy Wendialejandro Dolan, PERMIT TECHNICIAN: [address], [place] [address], Ph. 07/21/2018 Pain in Right Knee; Pain in Left Foot; Post-laminectomy Syndrome; Inflammation of Sacroiliac Joint; Muscle Pain; Degeneration of Lumbar Intervertebral Disc; Degeneration of Lumbosacral Intervertebral Disc; Displacement of Lumbar Intervertebral Disc without Myelopathy; Intervertebral Disc Disorder; Spondylosis without Myelopathy; Lumbosacral Spondylosis without Myelopathy; Lumbar Radiculopathy Wendi Dolan, PERMIT TECHNICIAN: [address], [place] [address], Ph. 06/09/2018 Pain in Right Knee; Pain in Left Foot; Post-laminectomy Syndrome; Inflammation of Sacroiliac Joint; Muscle Pain; Degeneration of Lumbar Intervertebral Disc; Degeneration of Lumbosacral Intervertebral Disc; Displacement of Lumbar Intervertebral Disc without Myelopathy; Intervertebral Disc Disorder; Spondylosis without Myelopathy; Lumbosacral Spondylosis without Myelopathy; Lumbar Radiculopathy Wendi Dolan, PERMIT TECHNICIAN: [address], [facility] [place] [address], Ph. Social History Tobacco Smoking Status Never Smoker Vaccine List None recorded. Plan of Care Reminders Provider Appointments None recorded. Lab None recorded. Referral None recorded. Procedures None recorded. Surgeries None recorded. Imaging None recorded. Vitals 11/29/2019 11:30AM Telehealth Height 5 ft 4 in 07/26/2019 11:00AM FOLLOW-UP Height Blood Pressure 5 ft 4 in 129/81 mm[Hg] 06/14/2019 03:30PM FOLLOW-UP Height Blood Pressure 5 ft 4 in 140/80 mm[Hg] 02/11/2019 11:30AM FOLLOW-UP Height Weight BMI Blood Pressure 5 ft 4 in 188 lbs 32.3 kg/m2 128/984 mm[Hg] 01/04/2019 03:00PM FOLLOW-UP Height Weight BMI Blood Pressure 5 ft 4 in 188 lbs 32.3 kg/m2 145/86 mm[Hg] 09/01/2018 10:30AM FOLLOW-UP Height Blood Pressure 5 ft 4 in 140/84 mm[Hg] 07/21/2018 10:15AM FOLLOW-UP Height Weight BMI Blood Pressure 5 ft 4 in 221 lbs 37.9 kg/m2 153/74 mm[Hg] 06/09/2018 01:30PM FOLLOW-UP Blood Pressure 140/91 mm[Hg] 03/09/2018 Blood Pressure 158/86 mm[Hg] 12/31/2017 Weight BMI Blood Pressure 234 lbs 40.31 kg/m2 153/83 mm[Hg] 08/24/2017 Weight BMI Blood Pressure 234 lbs 40.31 kg/m2 163/85 mm[Hg] 06/26/2017 Weight BMI Blood Pressure 234 lbs 40.31 kg/m2 147/93 mm[Hg] 04/17/2017 Weight BMI Blood Pressure 234 lbs 40.31 kg/m2 122/76 mm[Hg] 03/17/2017 Weight BMI Blood Pressure 233 lbs 40.14 kg/m2 158/94 mm[Hg] 03/03/2017 Blood Pressure 142/80 mm[Hg] 02/13/2017 Blood Pressure 134/64 mm[Hg] 01/01/2017 Blood Pressure 134/86 mm[Hg] 10/29/2016 Blood Pressure 154/101 mm[Hg] 10/03/2016 Blood Pressure 128/78 mm[Hg] 08/28/2016 Blood Pressure 146/91 mm[Hg] 07/31/2016 Blood Pressure 123/62 mm[Hg] 02/13/2016 Blood Pressure 147/83 mm[Hg] 12/12/2015 Blood Pressure 128/61 mm[Hg] 09/27/2015 Blood Pressure 153/91 mm[Hg] 03/17/2014 Blood Pressure 99/64 mm[Hg] 02/17/2014 Blood Pressure 116/70 mm[Hg] 01/20/2014 Weight BMI Blood Pressure 202 lbs 34.80 kg/m2 116/73 mm[Hg] 12/20/2013 Blood Pressure 125/75 mm[Hg] 12/15/2013 Blood Pressure 136/70 mm[Hg] 12/07/2013 Blood Pressure 136/68 mm[Hg] 11/23/2013 Blood Pressure 136/85 mm[Hg] 09/07/2013 Blood Pressure 134/80 mm[Hg] 08/17/2013 Height Weight BMI Blood Pressure 5 ft 4 in 225 lbs 38.76 kg/m2 123/89 mm[Hg]
--- OUTSIDE RECORDS SUMMARY | 2020-07-11 17:53 | CCD | Continuity of Care Document ---
Author Author [facility] Organization [facility] Address Unknown Phone Unavailable Care Team Providers [employer] Leader Name Role Phone Wall Sky DOHERTY Unavailable Unavailable Allergies, Adverse Reactions, Alerts Substance Reaction Status Criticality amoxicillin Hives / Skin Rash Active No Information No Known Drug Allergies Active No Information Medications Medication Instructions Dosage Effective Dates (start - stop) Sta tus Comments Orencia ClickJect 125 mg/mL subcutaneous auto-injector inject 1 milliliter by subcutaneous route every week 125 MG - Active methotrexate sodium 2.5 mg tablet take 8 Tablet by oral route ev mara week - Active CEVIMELINE HCL 30 MG CAPSULE TAKE 1 CAPSULE BY MOUTH THREE TIMES A DAY - Active LEUCOVORIN CALCIUM 5 MG TAB TAKE 1 TABLET BY MOUTH EVERY WEEK 5 MG - Active Actemra 162 mg/0.9 mL subcutaneous syringe INJECT ONE SYRINGE SUBCUTANEOUSLY EVERY 7 DAYS. KEEP REFRIGERATED. - Active cyclobenzaprine 10 mg tablet TAKE 1 TABLET BY MOUTH 3 TIMES TEMI Y DIRECTED - Active LOSARTAN POTASSIUM (unknown strength) take 1 tablet by oral route every day Not Available - Active Viberzi 75 mg tablet take 1 tablet by oral route every day 75 MG - Active Ozempic 0.25 mg or 0.5 mg (2 mg/1.5 mL) subcutaneous p en injector inject (0.25MG) by subcutaneous route every week for 4 weeks then inject 0.5 mg subcutaneously once weekly using rotating injectionsites 0.25 MG - Active amitriptyline 25 mg tablet take 1 tablet by oral route ever y day at bedtime 25 MG - Active hyoscyamine sulfate 0.125 mg tablet take 1 tablet by o ral route every 4 hours as needed 0.125 MG - Active clonazepam 2 mg tablet take 1 tablet by oral route 3 times every da y 2 MG - Active Fiber (psyllium husk) 0.52 gram capsule - Active LOPRESSOR (unknown strength) take 1 tablet by oral rou te 2 times every day with meals Not Available - Active triamcinolone acetonide 0.1 % topical cream apply by t opical route 2 times every day a thin layer to the affected area(s) 0.00 - Active Lipitor 40 mg tablet take 1 tablet by oral route every day 40 MG - Active Klonopin 1 mg tablet take 1 tablet by oral route every bedtime as needed 1 MG - Active baclofen 10 mg tablet take 1 tablet by oral route 3 times every day 10 MG - Active dicyclomine 10 mg capsule take 1 capsule by oral route ever y day as needed 10 MG - Active Lomotil 2.5 mg-0.025 mg tablet take 1 Tablet by oral r oute 2 times every day as needed 2.5 MG - Active Fish Oil 1,000 mg (120 mg-180 mg) capsule - Active Restasis 0.05 % eye drops in a dropperette instill 1 d rop by ophthalmic route every 12 hours into affected eye(s) 1.00 drop - Active hydrocodone 7.5 mg-acetaminophen 325 mg tablet take 1 tablet by oral route every 4 hours as needed for pain 1 tablet - Active spironolactone 25 mg Tab take 1/2 Tablet (12.5MG) by oral r oute every day 12.5 MG - Active Klor-Con 10 10 mEq Tab take 1 Tablet (10MEQ) by or al route 2 times every day with food 10 MEQ - Active OTC SUPPLEMENTS mvi, D3 400 units bid, [id number] units bid - Active Orencia ClickJect 125 mg/mL subcutaneous auto-injector inject 1 milliliter by subcutaneous route every week 125 MG - No Longer Active Problems Condition Type Effective Dates (start - stop) Clinical S tatus Comments Unspecified juvenile rheumatoid arthritis, multiple si zoie Diagnosis interpretation (observable entity) - Other longterm (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 Diagnosis inter pretation (observable entity) Unspecified juvenile rheumatoid arthritis, multiple si zoie Diagnosis interpretation (observable entity) Other longterm (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 Diagnosis inter pretation (observable entity) Pain in joint Diagnosis interpretation (observable entity) Unspecified juvenile rheumatoid arthritis, multiple si zoie Diagnosis interpretation (observable entity) Other door liner helper (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 Diagnosis inter pretation (observable entity) Pain in joint Diagnosis interpretation (observable entity) Unspecified juvenile rheumatoid arthritis, multiple si zoie Diagnosis interpretation (observable entity) Other longterm (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 Diagnosis inter pretation (observable entity) Sicca syndrome, unspecified Diagnosis interpretation (observable en tity) Unspecified juvenile rheumatoid arthritis, multiple si zoie Diagnosis interpretation (observable entity) Sicca syndrome, unspecified Diagnosis interpretation (observable en tity) Other longterm (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 Diagnosis inter pretation (observable entity) Diarrhea, unspecified Diagnosis interpretation (observable entity) Unspecified juvenile rheumatoid arthritis, multiple si zoie Diagnosis interpretation (observable entity) Sicca syndrome, unspecified Diagnosis interpretation (observable en tity) Fibromyalgia Diagnosis interpretation (observable entity) Osteoarthritis Diagnosis interpretation (observable entity) Other door liner helper (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 Diagnosis inter pretation (observable entity) Candidal stomatitis Diagnosis interpretation (observable entity) Sicca syndrome, unspecified Diagnosis interpretation (observable en tity) Unspecified juvenile rheumatoid arthritis, multiple si zoie Diagnosis interpretation (observable entity) Fibromyalgia Diagnosis interpretation (observable entity) Unspecified juvenile rheumatoid arthritis, multiple si zoie Diagnosis interpretation (observable entity) Other longterm (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 Diagnosis inter pretation (observable entity) Unspecified juvenile rheumatoid arthritis, multiple si zoie Diagnosis interpretation (observable entity) Sicca syndrome, unspecified Diagnosis interpretation (observable en tity) Fibromyalgia Diagnosis interpretation (observable entity) Other door liner helper (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 Diagnosis inter pretation (observable entity) Diarrhea Diagnosis interpretation (observable entity) Unspecified juvenile rheumatoid arthritis, multiple si zoie Diagnosis interpretation (observable entity) Sicca syndrome, unspecified Diagnosis interpretation (observable en tity) Fibromyalgia Diagnosis interpretation (observable entity) Other door liner helper (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 Diagnosis inter pretation (observable entity) Unspecified juvenile rheumatoid arthritis, multiple si zoie Diagnosis interpretation (observable entity) Fibromyalgia Diagnosis interpretation (observable entity) Other door liner helper (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 Diagnosis inter pretation (observable entity) Sicca syndrome, unspecified Diagnosis interpretation (observable en tity) Unspecified juvenile rheumatoid arthritis, multiple si zoie Diagnosis interpretation (observable entity) Fibromyalgia Diagnosis interpretation (observable entity) Other door liner helper (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 Diagnosis inter pretation (observable entity) Acute sinusitis Diagnosis interpretation (observable entity) Sicca syndrome Diagnosis interpretation (observable entity) Juvenile rheumatoid arthritis of multiple sites Diagno sis interpretation (observable entity) Other door liner helper (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 Diagnosis inter pretation (observable entity) Fibromyalgia Diagnosis interpretation (observable entity) Sicca syndrome Diagnosis interpretation (observable entity) Juvenile rheumatoid arthritis of multiple sites Diagno sis interpretation (observable entity) Fibromyalgia Diagnosis interpretation (observable entity) Other longterm (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 Diagnosis inter pretation (observable entity) Juvenile rheumatoid arthritis of multiple sites Diagno sis interpretation (observable entity) Fibromyalgia Diagnosis interpretation (observable entity) Other door liner helper (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 Diagnosis inter pretation (observable entity) Pain in joint of lt foot Diagnosis interpretation (observable entit y) Pain in joint of rt foot Diagnosis interpretation (observable entit y) Juvenile rheumatoid arthritis of multiple sites Diagno sis interpretation (observable entity) Other door liner helper (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 Diagnosis inter pretation (observable entity) Fibromyalgia Diagnosis interpretation (observable entity) Pain in right shoulder Diagnosis interpretation (observable entity) Juvenile rheumatoid arthritis of multiple sites Diagno sis interpretation (observable entity) Fibromyalgia Diagnosis interpretation (observable entity) Other longterm (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 Diagnosis inter pretation (observable entity) Pain in right knee Diagnosis interpretation (observable entity) Juvenile rheumatoid arthritis of multiple sites Diagno sis interpretation (observable entity) Other door liner helper (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 Diagnosis inter pretation (observable entity) Medial epicondylitis, right elbow Diagnosis interpretation ( observable entity) Pain in right knee Diagnosis interpretation (observable entity) Pain in left knee Diagnosis interpretation (observable entity) Fibromyalgia Diagnosis interpretation (observable entity) Juvenile rheumatoid arthritis of multiple sites Diagno sis interpretation (observable entity) Other longterm (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 Diagnosis inter pretation (observable entity) Pain in right knee Diagnosis interpretation (observable entity) Cough Diagnosis interpretation (observable entity) Juvenile rheumatoid arthritis of multiple sites Diagno sis interpretation (observable entity) Fibromyalgia Diagnosis interpretation (observable entity) Other longterm (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 Diagnosis inter pretation (observable entity) Juvenile rheumatoid arthritis of multiple sites Diagno sis interpretation (observable entity) Cervicalgia Diagnosis interpretation (observable entity) Other longterm (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 Diagnosis inter pretation (observable entity) Fibromyalgia Diagnosis interpretation (observable entity) Juvenile rheumatoid arthritis of multiple sites Diagno sis interpretation (observable entity) Fibromyalgia Diagnosis interpretation (observable entity) Other door liner helper (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 Diagnosis inter pretation (observable entity) Juvenile rheumatoid arthritis of multiple sites Diagno sis interpretation (observable entity) Other longterm (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 Diagnosis inter pretation (observable entity) Fibromyalgia Diagnosis interpretation (observable entity) Other specified abnormal findings of blood chemistry D iagnosis interpretation (observable entity) Juvenile rheumatoid arthritis of multiple sites Diagno sis interpretation (observable entity) Fibromyalgia Diagnosis interpretation (observable entity) Other door liner helper (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 Diagnosis inter pretation (observable entity) Juvenile rheumatoid arthritis of multiple sites Diagno sis interpretation (observable entity) Fibromyalgia Diagnosis interpretation (observable entity) Lumbosacral intervertebral disc disorder Diagnosis int erpretation (observable entity) Rheumatoid arthritis, unspecified Diagnosis interpretation ( observable entity) Other door liner helper (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 Diagnosis inter pretation (observable entity) Juvenile rheumatoid arthritis of multiple sites Diagno sis interpretation (observable entity) Other longterm (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 Diagnosis inter pretation (observable entity) High risk drug monitoring status Problem (finding) - A ctive Mapped from [facility] Chronic Conditions table on 10/09/2014 by the ICD9 to SNOMED Bulk Mapping Utility. The mapped diagnosis code was nurse wound use of medication, V58.69, added by Lucho Amador MD, with responsible provider Lucho Amador MD. Onset date 03/26/2012; last addressed on 04/04/2014. Juvenile rheumatoid arthritis Problem (finding) - Acti ve Mapped from [facility] Chronic Conditions table on 09/12/2014 by the ICD9 to SNOMED Bulk Mapping Utility. 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 Onset date 03/26/2012; last addressed on 04/04/2014. Rheumatoid factor negative Problem (finding) - Active Procedures Procedure Date No Information Results Test Name Date and Time Measure Units Reference Range Abnormal Flag St atus Comments No Information Advance Directives Directive Yes / No Effective Date File Name No Information Encounters Encounter Description Practice Location Reason(s) For Visit Diagnose s Date Provider Providers Copied on Encounter [facility], [address] [place] [address], [id number], tel:[phone] [facility] No Information Kev Swanson. [address] [place] [address], [id number], [place]. tel:[phone] [facility], [address] [place] [address], [id number], [place] tel:[phone] [facility] Unspecified juvenile rheumatoid arthritis, multiple sitesOther longterm (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 Wiley Osuna. [address] [place] [address], [id number], [place]. tel:[phone] Referring Provider: [place], [address] [facility] [address], [place], [place], [id number]. tel:[phone] [facility], [address] [place] [address], [id number], [place] tel:[phone] [facility] No Information Wiley Osuna. [address] [place] [address], [id number], [place]. tel:[phone] [facility], [address] [place] [address], [id number], [place] tel:[phone] [facility] No Information Wiley Osuna. [address] [place] [address], [id number], [place]. tel:[phone] [facility], [address] [place] [address], [id number], [place] tel:[phone] [facility] No Information Perry Yepez. [address] [place] [address], [id number], [place]. tel:[phone] [facility], [address] [place] [address], [id number], [place] tel:[phone] [facility] No Information Wiley Osuna. [address] [place] [address], [id number], [place]. tel:[phone] [facility], [address] [place] [address], [id number], [place] tel:[phone] [facility] Unspecified juvenile rheumatoid arthritis, multiple sitesOther door liner helper (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Pain in joint Wiley Osuna. [address] [place], [place], [id number], [place]. tel:[phone] Referring Provider: Cele Choi, [address] [place] [address]. tel:[phone] [facility], [address] [place] [address], [id number], [place] tel:[phone] [facility] Unspecified juvenile rheumatoid arthritis, multiple sitesOther door liner helper (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Pain in joint Wiley Osuna. [address] [place] [address], [id number], [place]. tel:[phone] Specialist: Sky Rodriguez MD, [address] [place] [address], [address]. tel:[phone]: Ilan Ha MD, [address] [place] [address], [address]. tel:[phone] Provider: Cele Choi, [address] [place] [address]. tel:[phone] [facility], [address] [place] [address], [id number], [place] tel:[phone] [facility] Unspecified juvenile rheumatoid arthritis, multiple sitesOther longterm (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Sicca syndrome, unspecified Wiley Osuna. [address] [place] [address], [id number], [place]. tel:[phone] Specialist: Sky Rodriguez MD, [address] [place] [address], [address]. tel:[phone]: Ilan Ha MD, [address] [place] [address], [address]. tel:[phone] Provider: Cele Choi, [address] [place] [address]. tel:[phone] [facility], [address] [place] [address], [id number], [place] tel:[phone] [facility] Unspecified juvenile rheumatoid arthritis, multiple sitesSicca syndrome, unspecifiedOther door liner helper (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Diarrhea, unspecified Perry Yepez. [address] [place] [address], [id number], [place]. tel:[phone] Specialist: Sky Rodriguez MD, [address] [place] [address], [address]. tel:[phone]: Ilan Ha MD, [address] [place] [address], [address]. tel:[phone] Provider: Cele Choi, [address] [place] [address]. tel:[phone] [facility], [address] [place] [address], [id number], [place] tel:[phone] [facility] Unspecified juvenile rheumatoid arthritis, multiple sitesSicca syndrome, unspecifiedFibromyalgiaOsteoarthritisOther door liner helper (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 Wiley Osuna. [address] [place] [address], [id number], [place]. tel:[phone] Specialist: Sky Rodriguez MD, [address] [place] [address], [address]. tel:[phone]: Ilan Ha MD, [address] [place] [address], [address]. tel:[phone]: Efrain Yepez MD, [address] [place] [address], [place], [address]. tel:[phone] Provider: Cele Choi, [address] [place] [address]. tel:[phone] [facility], [address] [place] [address], [id number], [place] tel:[phone] [facility] Candidal stomatitisSicca syndrome, unspecifiedUnspecified juvenile rheumatoid arthritis, multiple sitesFibromyalgia Wiley Osuna. [address] [place] [address], [id number], [place]. tel:[phone] Specialist: Sky Rodriguez MD, [address] [place] [address], [address]. tel:[phone]: Ilan Ha MD, [address] [place] [address], [address]. tel:[phone]: Efrain Yepez MD, [facility] [place], [address]. tel:[phone] Provider: Cele Choi, [address] [place] [address]. tel:[phone] [facility], [address] [place] [address], [id number], [place] tel:[phone] [facility] Unspecified juvenile rheumatoid arthritis, multiple sitesOther door liner helper (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 Wiley Osuna. [address] [place] [address], [id number], [place]. tel:[phone] Specialist: Sky Rodriguez MD, [address] [place] [address], [address]. tel:[phone]: Ilan Ha MD, [address] [place] [address], [address]. tel:[phone]: Efrain Yepez MD, [facility] [place], [address]. tel:[phone] Provider: Cele Choi, [address] [place] [address]. tel:[phone] [facility], [address] [place] [address], [id number], [place] tel:[phone] [facility] Unspecified juvenile rheumatoid arthritis, multiple sitesSicca syndrome, unspecifiedFibromyalgiaOther longterm (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Diarrhea Perry Yepez. [address] [place] [address], [id number], [place]. tel:[phone] Specialist: Sky Rodriguez MD, [address], [place], [address]. tel:[phone]: Ilan Ha MD, [address] [place] [address], [address]. tel:[phone]: Efrain Yepez MD, [address], [place], [address]. tel:[phone] Provider: Cele Choi, [address] [place] [address]. tel:[phone] [facility], [address] [place] [address], [id number], [place] tel:[phone] [facility] Unspecified juvenile rheumatoid arthritis, multiple sitesSicca syndrome, unspecifiedFibromyalgiaOther longterm (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 Wiley Osuna. [address] [place] [address], [id number], [place]. tel:[phone] Specialist: Sky Rodriguez MD, [address], [place], [address]. tel:[phone]: Ilan Ha MD, [address] [place] [address], [address]. tel:[phone]: Efrain Yepez MD, [address], [place], [address]. tel:[phone] Provider: Cele Choi, [address] [place] [address]. tel:[phone] [facility], [address] [place] [address], [id number], [place] tel:[phone] [facility] Unspecified juvenile rheumatoid arthritis, multiple sitesFibromyalgiaOther door liner helper (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Sicca syndrome, unspecified Luzma Osuna. [address] [place] [address], [id number], [place]. tel:[phone] Specialist: Sky Rodriguez MD, [address] [place] [address], [address]. tel:[phone]: Ilan Ha MD, [address] [place] [address], [address]. tel:[phone]: Efrain Yepez MD, [facility], [place], [address]. tel:[phone] Provider: Cele Choi, [address] [place] [address]. tel:[phone] [facility], [address] [place] [address], [id number], [place] tel:[phone] [facility] Unspecified juvenile rheumatoid arthritis, multiple sitesFibromyalgiaOther longterm (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Acute sinusitisSicca syndrome Sagar Yepez. [address] [place] [address], [id number], [place]. tel:[phone] Specialist: Sky Rodriguez MD, [address] [place] [address], [address]. tel:[phone]: Ilan Ha MD, [address] [place] [address], [address]. tel:[phone]: Efrain Yepez MD, [facility], [place], [address]. tel:[phone] Provider: Cele Choi, [address] [place] [address]. tel:[phone] [facility], [address] [place] [address], [id number], [place] tel:[phone] [facility] Juvenile rheumatoid arthritis of multiple sitesOther door liner helper (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FibromyalgiaSicca syndrome [facility]. [address] [place], [place], [id number], [place]. tel:[phone] Specialist: Sky Rodriguez MD, [address] [place] [address], [address]. tel:[phone]: Ilan Ha MD, [address] [place] [address], [address]. tel:[phone] Specialist: Efrain Yepez MD, [facility] [place], [address]. tel:[phone] Provider: Cele Choi, [address] [place] [address]. tel:[phone] [facility], [address] [place] [address], [id number], [place] tel:[phone] [facility] Juvenile rheumatoid arthritis of multiple sitesFibromyalgiaOther door liner helper (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 Perry Yepez. [address] [place], [place], [id number], [place]. tel:[phone] Specialist: Sky Rodriguez MD, [address] [place] [address], [address]. tel:[phone]: Ilan Ha MD, [address] [place] [address], [address]. tel:[phone]: Efrain Yepez MD, [facility] [place], [address]. tel:[phone] Provider: Cele Choi, [address] [place] [address]. tel:[phone] [facility], [address] [place] [address], [id number], [place] tel:[phone] [facility] Juvenile rheumatoid arthritis of multiple sitesFibromyalgiaOther door liner helper (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Pain in joint of lt footPain in joint of rt foot Ninfa Arteaga. [address] [place] [address], [id number], [place]. tel:[phone] Specialist: Sky Rodriguez MD, [address] [facility], [place], [address]. tel:[phone]: Ilan Ha MD, [address] [place], [address]. tel:[phone]: Efrain Yepez MD, [address] [place] [address], [place], [address]. tel:[phone] Provider: Cele Choi, [address] [place] [address]. tel:[phone] [facility], [address] [place] [address], [id number], [place] tel:[phone] [facility] Juvenile rheumatoid arthritis of multiple sitesOther longterm (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FibromyalgiaPain in right shoulder Perry krishnan. [address] [place] [address], [id number], [place]. tel:[phone] Referring Provider: Cele Choi, [address] [place] [address]. tel:[phone] [facility], [address] [place] [address], [id number], [place] tel:[phone] [facility] Juvenile rheumatoid arthritis of multiple sitesFibromyalgiaOther longterm (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Pain in right knee Perry Yepez. [address] [place] [address], [id number], [place]. tel:[phone] Referring Provider: Cele Choi, [address] [place] [address]. tel:[phone] [facility], [address] [place] [address], [id number], [place] tel:[phone] [facility] Juvenile rheumatoid arthritis of multiple sitesOther door liner helper (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Medial epicondylitis, right elbowPain in right kneePain in left kneeFibromyalgia [facility]. [address] [place], [place], [id number], [place]. tel:[phone] Referring Provider: Cele Choi, [address] [facility] [address], [place]. tel:[phone] [facility], [address] [place] [address], [id number], [place] tel:[phone] [facility] Juvenile rheumatoid arthritis of multiple sitesOther longterm (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Pain in right kneeCough [facility]. [address] [place] [address], [id number], [place]. tel:[phone] Referring Provider: Cele Choi [address] tel:[phone] [facility], [address] [place] [address], [id number], [place] tel:[phone] [facility] Juvenile rheumatoid arthritis of multiple sitesFibromyalgiaOther door liner helper (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 Jo-Ann Levy. [address] [place], [place], [id number], [place]. tel:[phone] Referring Provider: Cele Choi, [address] tel:[phone] [facility], [address] [place] [address], [id number], [place] tel:[phone] [facility] Juvenile rheumatoid arthritis of multiple sitesCervicalgiaOther longterm (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Fibromyalgia Perry Yepez. [address] [place], [place], [id number], [place]. tel:[phone] Referring Provider: Cele Choi, [address] tel:[phone] [facility], [address] [place] [address], [id number], [place] tel:[phone] [facility] Juvenile rheumatoid arthritis of multiple sitesFibromyalgiaOther door liner helper (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 Maximus Bela. [address] [place] [address], [id number], [place]. tel:[phone] Referring Provider: Luiza Henderson [address] tel:[phone] [facility], [address] [place] [address], [id number], [place] tel:[phone] [facility] Juvenile rheumatoid arthritis of multiple sitesOther longterm (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Fibromyalgia Perry Yepez. [address] [place] [address], [id number], [place]. tel:[phone] Referring Provider: Luiza Henderson [address] tel:[phone] [facility], [address] [place] [address], [id number], [place] tel:[phone] [facility] Other specified abnormal findings of blood chemistry Brandyn Levy. [address] [place] [address], [id number], [place]. tel:[phone] [facility], [address] [place] [address], [id number], [place] tel:[phone] [facility] Juvenile rheumatoid arthritis of multiple sitesFibromyalgiaOther longterm (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 Jo-Ann Levy. [address] [place] [address], [id number], [place]. tel:[phone] Referring Provider: Luiza Henderson [facility] [address], [place]. tel:[phone] [facility], [address] [place] [address], [id number], [place] tel:[phone] [facility] Juvenile rheumatoid arthritis of multiple sitesFibromyalgiaLumbosacral intervertebral disc disorder [facility] Bela. [address] [place] [address], [id number], [place]. tel:[phone] Referring Provider: Luiza Henderson [address] tel:[phone] [facility], [address] [place] [address], [id number], [place] tel:[phone] [facility] Rheumatoid arthritis, unspecifiedOther longterm (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 Morgan Ludwig. [address] [place] [address], [id number], [place]. tel:[phone] Referring Provider: Luiza Henderson [address] tel:[phone] [facility], [address] [place] [address], [id number], [place] tel:[phone] [facility] Juvenile rheumatoid arthritis of multiple sitesOther door liner helper (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 Morgan Ludwig. [address] [place] [address], [id number], [place]. tel:[phone] Referring Provider: Luiza Henderson [address] tel:[phone] [facility], [address] [place] [address], [id number], [place] tel:[phone] [facility] No Information [facility] Bela. [address] [place] [address], [id number], [place]. tel:[phone] Referring Provider: Luiza eHnderson [address] tel:[phone] [facility], [address] [place] [address], [place], [id number], tel:[phone] [facility] No Information Perry Yepez. [address] [place], [place], [id number], [place]. tel:[phone] Referring Provider: Cele Choi [address] tel:[phone] [facility], [address] [place] [address], [id number], tel:[phone] [facility] No Information Perry Yepez. [address] [place] [address], [id number], [place]. tel:[phone] Referring Provider: Cele Choi [address] tel:[phone] [facility], [address] [place] [address], [id number], [place] tel:[phone] [facility] No Information Morgan Ludwig. [address] [place] [address], [id number], . tel:[phone] Referring Provider: Cele Choi [address] [place] [address]. tel:[phone] [facility], [address] [place] [address], [id number], tel:[phone] [facility] No Information Ciroyesy Yepez. [address] [place], [place], [id number], [place]. tel:[phone] Referring Provider: Cele Choi [address] [place] [address]. tel:[phone] Family History Family Member Type Diagnosis Age At Onset Mother Problem (finding) Immunizations Vaccine Date Status Comments Flucelvax administered Source: Othe r Provider Influenza, injectable, MDCK, preservativ e free, 0.5 mL dosage, Flucelvax Quad administered Source: Other Provid er Influenza, injectable, MDCK, Flucelvax Quad 18 administered Source: Other Provider Influenza, injectable, quadrivalent, spl it virus, 18 years or older Afluria Quad administered Note: approx ; Sourc e: Other Provider Influenza, injectable, trivalent, split virus, 4 years and older, Fluvirin administered Note: Invalid docume nted admin date was . ; Source: Other Provider Influenza, split virus, injectable, 3 years and older Fluvirin [id number] administered Source: Other Provider Influenza virus vaccine, Injection administered Source: Other Provider pneumo (2 yrs or older) (PPV23) administered Source: Source Unspecified Influenza virus vaccine, Injection administered Source: Source Unspecified pneumo (2 yrs or older) (PPV23) administered Source: Source Unspecified Payers Payer name Insurance type Covered democrat ID Authorization(s ) [facility] [id number] Medicare MB [id number] Social History Type Description Quantity Date Captured Comments Alcohol Use Details Unknown Caffeine Use Details Unknown Tobacco Use Status No Information Smoking Status No Information Sex Female Vital Signs Date / Time: Height Weight BMI Pulse Rate Blood Pressure Temperatu re Respiratory Rate Body Surface Area Head Circumference BMI percentile Pulse Ox In haled Ox No Information Chief Complaint And Reason For Visit No Information Reason For Referral Reason For Referral No Information Plan Of Treatment Date Type Action Status Referral Ordered: *FOOT X-RAY, 2 VIEWS Right foot ordered Referral Ordered: *ANKLE X-RAYS, 2 VIEWS Left ankle ordered Referral Ordered: *ANKLE X-RAYS, 2 VIEWS Right ankle ordered Referral Ordered: *FOOT X-RAY, 2 VIEWS Left foot ordered Referral Ordered: *KNEE X-RAY, 1 OR 2 VIEWS Right knee ordered Referral Ordered: *KNEE X-RAY, 1 OR 2 VIEWS Left knee ordered Referral Ordered: CERVICAL SPINE X-RAY, COMPLETE AND FLEXION EXTENSION ordered Appointment Elena Marroquin BOOKED History Of Present Illness Encounter Date Complaint History Of Present I llness No Information Functional Status Date Functional Assessment No Information Medications Administered Medication Instructions Dosage Effective Dates (start - stop) Sta tus Comments No Information Instructions Date Instruction Additional Informati on Risks/benefits of medications reviewed Risks/benefits of medications discussed, handout given on [facility] Conservative medical care me asures discussed. Moderate activities regarding symptomatic joints. Labs ordered to check disease activity. Call if symptoms return Labs ordered to check blood counts, liver and kidney functions to monitor safety of medication. Discussed / Reviewed Labs continue same medication plan call if symptoms worsen Risks/benefits of medications reviewed Labs ordered to check disease activity. Call if symptoms return Labs ordered to check blood counts, liver and kidney functions to monitor safety of medication. Discussed / Reviewed Labs continue same medication plan call if symptoms worsen Risks/benefits of medications reviewed Labs ordered to check disease activity. Call if symptoms return Labs ordered to check blood counts, liver and kidney functions to monitor safety of medication. Discussed / Reviewed Labs continue same medication plan call if symptoms worsen Risks/benefits of medications reviewed Labs ordered to check disease activity. Call if symptoms return Labs ordered to check blood counts, liver and kidney functions to monitor safety of medication. Discussed / Reviewed Labs continue same medication plan call if symptoms worsen Risks/benefits of medications reviewed Conservative medical care me asures discussed. Moderate activities regarding symptomatic joints. Educated regarding diagnosis and treatme nt options. Call if symptoms return call if symptoms worsen Discussed importance of hold ing DMARDs/ biologics if patient develops an infection and to notify the treating physician Risks/benefits of medications reviewed Conservative medical care me asures discussed. Moderate activities regarding symptomatic joints. For sleep, the need to add a dequate relaxation, rest and exercise was discussed Labs ordered to check disease activity. Call if symptoms return Labs ordered to check blood counts, liver and kidney functions to monitor safety of medication. Daily range of motion exercises for symp tomatic joints recommended. Discussed / Reviewed Labs continue same medication plan call if symptoms worsen Call if symptoms return Labs ordered to check blood counts, liver and kidney functions to monitor safety of medication. Discussed / Reviewed Labs hold medication and call if any side eff ect develops continue same medication plan call if symptoms worsen Risks/benefits of medications reviewed Discussed importance of hold ing DMARDs/ biologics if patient develops an infection and to notify the treating physician Labs ordered to check disease activity. Risks/benefits of medications reviewed Labs ordered to check disease activity. Call if symptoms return Labs ordered to check blood counts, liver and kidney functions to monitor safety of medication. Discussed / Reviewed Labs continue same medication plan Weight reduction urged. Risks/benefits of medications reviewed Discussed importance of hold ing DMARDs/ biologics if patient develops an infection and to notify the treating physician Stretching Labs ordered to check disease activity. Yoga Labs ordered to check blood counts, liver and kidney functions to monitor safety of medication. Discussed / Reviewed Labs Patient plan printed and given along wit h recommendations call if symptoms worsen maintain adequate water intake every day Reviewed importance of compl iance/adherence to medications prescribed Diet: avoid alcohol Avoid live vaccines Avoid live vaccines Discussed importance of hold ing DMARDs/ biologics if patient develops an infection and to notify the treating physician call if symptoms worsen Avoid live vaccines Discussed importance of hold ing DMARDs/ biologics if patient develops an infection and to notify the treating physician Stretching Labs ordered to check disease activity. Labs ordered to check blood counts, liver and kidney functions to monitor safety of medication. Daily range of motion exercises for symp tomatic joints recommended. call if symptoms worsen Exercise more Risks/benefits of medications reviewed Discussed importance of hold ing DMARDs/ biologics if patient develops an infection and to notify the treating physician Risks/benefits of medications reviewed Labs ordered to check disease activity. Labs ordered to check blood counts, liver and kidney functions to monitor safety of medication. Discussed / Reviewed Labs Physical Examination Exam Findings Details No Information
--- OUTSIDE RECORDS SUMMARY | 2020-07-11 17:53 | CCD | Continuity of Care Document ---
Author Author [facility] Organization [facility] Address Unknown Phone Unavailable Care Team Providers Care Hyster Machine Operator Name Role Phone Wall Sky DOHERTY Unavailable [...] OTC SUPPLEMENTS mvi, D3 400 units bid, [id number] units bid - Active Orencia ClickJect 125 mg/mL subcutaneous auto-injector inject 1 milliliter by subcutaneous route every week 125 MG - No Longer Active Problems Condition Type Effective Dates (start - stop) Clinical S tatus Comments Unspecified juvenile rheumatoid arthritis, multiple si zoie Diagnosis interpretation (observable entity) - Other chcf (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 Diagnosis inter pretation (observable entity) Unspecified juvenile rheumatoid arthritis, multiple si zoie Diagnosis interpretation (observable entity) Other chcf (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 Diagnosis inter pretation (observable entity) Pain in joint Diagnosis interpretation (observable entity) Unspecified juvenile rheumatoid arthritis, multiple si zoie Diagnosis interpretation (observable entity) Other long term acute care registered nurse (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 Diagnosis inter pretation (observable entity) Pain in joint Diagnosis interpretation (observable entity) Unspecified juvenile rheumatoid arthritis, multiple si zoie Diagnosis interpretation (observable entity) Other chcf (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 Diagnosis inter pretation (observable entity) Sicca syndrome, unspecified Diagnosis interpretation (observable en tity) Unspecified juvenile rheumatoid arthritis, multiple si zoie Diagnosis interpretation (observable entity) Sicca syndrome, unspecified Diagnosis interpretation (observable en tity) Other chcf (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 Diagnosis inter pretation (observable entity) Diarrhea, unspecified Diagnosis interpretation (observable entity) Unspecified juvenile rheumatoid arthritis, multiple si zoie Diagnosis interpretation (observable entity) Sicca syndrome, unspecified Diagnosis interpretation (observable en tity) Fibromyalgia Diagnosis interpretation (observable entity) Osteoarthritis Diagnosis interpretation (observable entity) Other long term acute care registered nurse (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 Diagnosis inter pretation (observable entity) Candidal stomatitis Diagnosis interpretation (observable entity) Sicca syndrome, unspecified Diagnosis interpretation (observable en tity) Unspecified juvenile rheumatoid arthritis, multiple si zoie Diagnosis interpretation (observable entity) Fibromyalgia Diagnosis interpretation (observable entity) Unspecified juvenile rheumatoid arthritis, multiple si zoie Diagnosis interpretation (observable entity) Other chcf (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 Diagnosis inter pretation (observable entity) Unspecified juvenile rheumatoid arthritis, multiple si zoie Diagnosis interpretation (observable entity) Sicca syndrome, unspecified Diagnosis interpretation (observable en tity) Fibromyalgia Diagnosis interpretation (observable entity) Other long term acute care registered nurse (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 Diagnosis inter pretation (observable entity) Diarrhea Diagnosis interpretation (observable entity) Unspecified juvenile rheumatoid arthritis, multiple si zoie Diagnosis interpretation (observable entity) Sicca syndrome, unspecified Diagnosis interpretation (observable en tity) Fibromyalgia Diagnosis interpretation (observable entity) Other long term acute care registered nurse (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 Diagnosis inter pretation (observable entity) Unspecified juvenile rheumatoid arthritis, multiple si zoie Diagnosis interpretation (observable entity) Fibromyalgia Diagnosis interpretation (observable entity) Other long term acute care registered nurse (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 Diagnosis inter pretation (observable entity) Sicca syndrome, unspecified Diagnosis interpretation (observable en tity) Unspecified juvenile rheumatoid arthritis, multiple si zoie Diagnosis interpretation (observable entity) Fibromyalgia Diagnosis interpretation (observable entity) Other long term acute care registered nurse (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 Diagnosis inter pretation (observable entity) Acute sinusitis Diagnosis interpretation (observable entity) Sicca syndrome Diagnosis interpretation (observable entity) Juvenile rheumatoid arthritis of multiple sites Diagno sis interpretation (observable entity) Other long term acute care registered nurse (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 Diagnosis inter pretation (observable entity) Fibromyalgia Diagnosis interpretation (observable entity) Sicca syndrome Diagnosis interpretation (observable entity) Juvenile rheumatoid arthritis of multiple sites Diagno sis interpretation (observable entity) Fibromyalgia Diagnosis interpretation (observable entity) Other chcf (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 Diagnosis inter pretation (observable entity) Juvenile rheumatoid arthritis of multiple sites Diagno sis interpretation (observable entity) Fibromyalgia Diagnosis interpretation (observable entity) Other long term acute care registered nurse (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 Diagnosis inter pretation (observable entity) Pain in joint of lt foot Diagnosis interpretation (observable entit y) Pain in joint of rt foot Diagnosis interpretation (observable entit y) Juvenile rheumatoid arthritis of multiple sites Diagno sis interpretation (observable entity) Other long term acute care registered nurse (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 Diagnosis inter pretation (observable entity) Fibromyalgia Diagnosis interpretation (observable entity) Pain in right shoulder Diagnosis interpretation (observable entity) Juvenile rheumatoid arthritis of multiple sites Diagno sis interpretation (observable entity) Fibromyalgia Diagnosis interpretation (observable entity) Other chcf (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 Diagnosis inter pretation (observable entity) Pain in right knee Diagnosis interpretation (observable entity) Juvenile rheumatoid arthritis of multiple sites Diagno sis interpretation (observable entity) Other long term acute care registered nurse (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 Diagnosis inter pretation (observable entity) Medial epicondylitis, right elbow Diagnosis interpretation ( observable entity) Pain in right knee Diagnosis interpretation (observable entity) Pain in left knee Diagnosis interpretation (observable entity) Fibromyalgia Diagnosis interpretation (observable entity) Juvenile rheumatoid arthritis of multiple sites Diagno sis interpretation (observable entity) Other chcf (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 Diagnosis inter pretation (observable entity) Pain in right knee Diagnosis interpretation (observable entity) Cough Diagnosis interpretation (observable entity) Juvenile rheumatoid arthritis of multiple sites Diagno sis interpretation (observable entity) Fibromyalgia Diagnosis interpretation (observable entity) Other chcf (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 Diagnosis inter pretation (observable entity) Juvenile rheumatoid arthritis of multiple sites Diagno sis interpretation (observable entity) Cervicalgia Diagnosis interpretation (observable entity) Other chcf (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 Diagnosis inter pretation (observable entity) Fibromyalgia Diagnosis interpretation (observable entity) Juvenile rheumatoid arthritis of multiple sites Diagno sis interpretation (observable entity) Fibromyalgia Diagnosis interpretation (observable entity) Other long term acute care registered nurse (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 Diagnosis inter pretation (observable entity) Juvenile rheumatoid arthritis of multiple sites Diagno sis interpretation (observable entity) Other chcf (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 Diagnosis inter pretation (observable entity) Fibromyalgia Diagnosis interpretation (observable entity) Other specified abnormal findings of blood chemistry D iagnosis interpretation (observable entity) Juvenile rheumatoid arthritis of multiple sites Diagno sis interpretation (observable entity) Fibromyalgia Diagnosis interpretation (observable entity) Other long term acute care registered nurse (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 Diagnosis inter pretation (observable entity) Juvenile rheumatoid arthritis of multiple sites Diagno sis interpretation (observable entity) Fibromyalgia Diagnosis interpretation (observable entity) Lumbosacral intervertebral disc disorder Diagnosis int erpretation (observable entity) Rheumatoid arthritis, unspecified Diagnosis interpretation ( observable entity) Other long term acute care registered nurse (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 Diagnosis inter pretation (observable entity) Juvenile rheumatoid arthritis of multiple sites Diagno sis interpretation (observable entity) Other chcf (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 Diagnosis inter pretation (observable entity) High risk drug monitoring status Problem (finding) - A ctive Mapped from [facility] Chronic Conditions table on 10/09/2014 by the ICD9 to [employer] Bulk Mapping Utility. The mapped diagnosis code was termite helper use of medication, V58.69, added by Lucho Amador MD, with responsible provider Lucho Amador MD. Onset date 03/26/2012; last addressed on 04/04/2014. Juvenile rheumatoid arthritis Problem (finding) - Acti ve Mapped from [facility] Chronic Conditions table on 09/12/2014 by the [...] s Date Provider Providers Copied on Encounter [facility], [address] [place] [address], [id number], tel:[phone] Critical [facility] hospital No Information Kev Swanson. [address] [place] [address], [id number], [place]. tel:[phone] [facility], [address] [place] [address], [id number], [place] tel:[phone] [facility] Unspecified juvenile rheumatoid arthritis, multiple sitesOther chcf (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 Wiley Osuna. [address] [place] [address], [id number], [place]. tel:[phone] Referring Provider: [place], [address] [facility] [address], [place], [place], [id number]. tel:[phone] [facility], [address] [place] [address], [id number], [place] tel:[phone] [facility] No Information Wiley Osuna. [address] [place] [address], [id number], [place]. tel:[phone] [facility], [address] [place] [address], [id number], [place] tel:[phone] [facility] No Information Perry Yepez. [address] [place] [address], [id number], [place]. tel:[phone] [facility], [address] [place] [address], [id number], [place] tel:[phone] [facility] No Information Wiley Osuna. [address] [place] [address], [id number], [place]. tel:[phone] [facility], [address] [place] [address], [id number], [place] tel:[phone] [facility] Unspecified juvenile rheumatoid arthritis, multiple sitesOther chcf (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Pain in joint Wiley Osuna. [address] [place] [address] [place], [id number], [place]. tel:[phone] Referring Provider: Cele Choi [address] [place] [address]. tel:[phone] [facility], [address] [place] [address], [id number], [place] tel:[phone] [facility] Unspecified juvenile rheumatoid arthritis, multiple sitesOther chcf (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Pain in joint Wiley Osuna. [address] [place] [address], [id number], [place]. tel:[phone] Specialist: Sky Rodriguez MD, [address] [place] [address], [address]. tel:[phone]: Ilan Ha MD, [address] [place] [address], [address]. tel:[phone] Provider: Cele Choi [address] tel:[phone] [facility], [address] [place] [address], [id number], [place] tel:[phone] [facility] Unspecified juvenile rheumatoid arthritis, multiple sitesOther long term acute care registered nurse (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Sicca syndrome, unspecified Wiley Osuna. [address] [place] [address], [id number], [place]. tel:[phone] Specialist: Sky Rodriguez MD, [address] [place] [address], [address]. tel:[phone]: Ilan Ha MD, [address] [place] [address], [address]. tel:[phone] Provider: Cele Choi [address] tel:[phone] [facility], [address] [place] [address], [id number], [place] tel:[phone] [facility] Unspecified juvenile rheumatoid arthritis, multiple sitesSicca syndrome, unspecifiedOther long term acute care registered nurse (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Diarrhea, unspecified Perry Yepez. [address] [place] [address], [id number], [place]. tel:[phone] Specialist: Sky Rodriguez MD, [address] [place] [address], [address]. tel:[phone]: Ilan Ha MD, [address] [place] [address], [address]. tel:[phone] Provider: Cele Choi, [address] [place] [address]. tel:[phone] [facility], [address] [place] [address], [id number], [place] tel:[phone] [facility] Unspecified juvenile rheumatoid arthritis, multiple sitesSicca syndrome, unspecifiedFibromyalgiaOsteoarthritisOther long term acute care registered nurse (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 Wiley Osuna. [address] [place] [address], [id number], [place]. tel:[phone] Specialist: Sky Rodriguez MD, [address] [place] [address], [address]. tel:[phone]: Ilan Ha MD, [address] [place] [address], [address]. tel:[phone]: Efrain Yepez MD, [address] [place] [address], [address]. tel:[phone] Provider: Cele Choi, [address] tel:[phone] [facility], [address] [place] [address], [id number], [place] tel:[phone] [facility] Candidal stomatitisSicca syndrome, unspecifiedUnspecified juvenile rheumatoid arthritis, multiple sitesFibromyalgia Wiley Osuna. [address] [place] [address], [id number], [place]. tel:[phone] Specialist: Sky Rodriguez MD, [address] [place] [address], [address]. tel:[phone]: Ilan Ha MD, [address] [place] [address], [address]. tel:[phone]: Efrain Yepez MD, [facility] [place], [address]. tel:[phone] Provider: Cele Choi, [address] [place] [address]. tel:[phone] [facility], [address] [place] [address], [id number], [place] tel:[phone] [facility] Unspecified juvenile rheumatoid arthritis, multiple sitesOther long term acute care registered nurse (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 Wiley Osuna. [address] [place] [address], [id number], [place]. tel:[phone] Specialist: Sky Rodriguez MD, [address] [place] [address], [address]. tel:[phone]: Ilan Ha MD, [address] [place] [address], [address]. tel:[phone]: Efrain Yepez MD, [facility] [place], [address]. tel:[phone] Provider: Cele Choi, [address] [place] [address]. tel:[phone] [facility], [address] [place] [address], [id number], [place] tel:[phone] [facility] Unspecified juvenile rheumatoid arthritis, multiple sitesSicca syndrome, unspecifiedFibromyalgiaOther long term acute care registered nurse (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Diarrhea Perry Yepez. [address] [place] [address], [id number], [place]. tel:[phone] Specialist: Sky Rodriguez MD, [address] [place] [address], [address]. tel:[phone]: Ilan Ha MD, [address] [place] [address], [address]. tel:[phone]: Efrain Yepez MD, [address] [place] [address], [address]. tel:[phone] Provider: Cele Choi, [address] [place] [address]. tel:[phone] [facility], [address] [place] [address], [id number], [place] tel:[phone] [facility] Unspecified juvenile rheumatoid arthritis, multiple sitesSicca syndrome, unspecifiedFibromyalgiaOther long term acute care registered nurse (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 Wiley Osuna. [address] [place] [address], [id number], [place]. tel:[phone] Specialist: Sky Rodriguez MD, [address] [place] [address], [address]. tel:[phone]: Ilan Ha MD, [address] [place] [address], [address]. tel:[phone]: Efrain Yepez MD, [address] [place] [address], [address]. tel:[phone] Provider: Cele Choi, [address] [place] [address]. tel:[phone] [facility], [address] [place] [address], [id number], [place] tel:[phone] [facility] Unspecified juvenile rheumatoid arthritis, multiple sitesFibromyalgiaOther chcf (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Sicca syndrome, unspecified Luzma Osuna. [address] [place] [address], [id number], [place]. tel:[phone] Specialist: Sky Rodriguez MD, [address] [place] [address], [address]. tel:[phone]: Ilan Ha MD, [address] [place] [address], [address]. tel:[phone]: Efrain Yepez MD, [address] [place] [address], [address]. tel:[phone] Provider: Cele Choi, [address] tel:[phone] [facility], [address] [place] [address], [id number], [place] tel:[phone] [facility] Unspecified juvenile rheumatoid arthritis, multiple sitesFibromyalgiaOther long term acute care registered nurse (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Acute sinusitisSicca syndrome [facility]. [address] [place] [address], [id number], [place]. tel:[phone] Specialist: Sky Rodriguez MD, [address] [place] [address], [address]. tel:[phone]: Ilan Ha MD, [address] [place] [address], [address]. tel:[phone]: Efrain Yepez MD, [address] [place] [address], [place], [address]. tel:[phone] Provider: Cele Choi, [address] tel:[phone] [facility], [address] [place] [address], [id number], [place] tel:[phone] [facility] Juvenile rheumatoid arthritis of multiple sitesOther long term acute care registered nurse (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FibromyalgiaSicca syndrome [facility]. [address] [place] [address], [id number], [place]. tel:[phone] Specialist: Sky Rodriguez MD, [address] [place] [address], [address]. tel:[phone]: Ilan Ha MD, [address] [place] [address], [address]. tel:[phone] Specialist: Efrain Yepez MD, [place], [address]. tel:[phone] Provider: Cele Choi, [address] [place] [address]. tel:[phone] [facility], [address] [place] [address], [id number], tel:[phone] [facility] Juvenile rheumatoid arthritis of multiple sitesFibromyalgiaOther chcf (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 Perry Yepez. [address] [place] [address], [id number], . tel:[phone] Specialist: Sky Rodriguez MD, [address] [place] [address], [address]. tel:[phone]: Ilan Ha MD, [address] [place] [address], [address]. tel:[phone]: Efrain Yepez MD, [address] [place], [place] [address]eulogio, [place], [address]. tel:[phone] Provider: Cele Cohi, [address] [place] [address]. tel:[phone] [facility], [address] [place] [address], [id number], tel:[phone] [facility] Juvenile rheumatoid arthritis of multiple sitesFibromyalgiaOther chcf (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Pain in joint of lt footPain in joint of rt foot Ninfa Arteaga. [address] [place] [address], [id number], [place]. tel:[phone] Specialist: Sky Rodriguez MD, [address] [place] [address], [address]. tel:[phone]: Ilan Ha MD, [address] [place] [address], [address]. tel:[phone]: Efrain Yepez MD, [address] [facility], [place], [address]. tel:[phone] Provider: Cele Choi [address] [place] [address]. tel:[phone] [facility], [address] [place] [address], [id number], [place] tel:[phone] [facility] Juvenile rheumatoid arthritis of multiple sitesOther long term acute care registered nurse (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FibromyalgiaPain in right shoulder Perry krishnan. [address] [place] [address], [id number], [place]. tel:[phone] Referring Provider: Cele Choi, [address] [place] [address]. tel:[phone] [facility], [address] [place] [address], [id number], [place] tel:[phone] [facility] Juvenile rheumatoid arthritis of multiple sitesFibromyalgiaOther long term acute care registered nurse (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Pain in right knee Perry Yepez. [address] [place] [address], [id number], [place]. tel:[phone] Referring Provider: Cele Choi, [address] [place] [address]. tel:[phone] [facility], [address] [place] [address], [id number], [place] tel:[phone] [facility] Juvenile rheumatoid arthritis of multiple sitesOther chcf (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Medial epicondylitis, right elbowPain in right kneePain in left kneeFibromyalgia Maximus Cramer. [address] [place] [address], [id number], [place]. tel:[phone] Referring Provider: Cele Choi [address] [place] [address]. tel:[phone] [facility], [address], [place], [id number], [place] tel:[phone] [facility] Juvenile rheumatoid arthritis of multiple sitesOther chcf (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Pain in right kneeCough [facility]. [address], [place], [id number], [place]. tel:[phone] Referring Provider: Cele Choi [address] [place] [address], [place]. tel:[phone] [facility], [address] [place] [address], [id number], [place] tel:[phone] [facility] Juvenile rheumatoid arthritis of multiple sitesFibromyalgiaOther long term acute care registered nurse (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 Jo-Ann Levy. [address], [place], [id number], [place]. tel:[phone] Referring Provider: Cele Choi [address] [place] [address]. tel:[phone] [facility], [address] [place] [address], [id number], [place] tel:[phone] [facility] Juvenile rheumatoid arthritis of multiple sitesCervicalgiaOther long term acute care registered nurse (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Fibromyalgia Perry Yepez. [address] [place], [place], [id number], [place]. tel:[phone] Referring Provider: Cele Choi [address] [place] [address]. tel:[phone] [facility], [address] [place] [address], [id number], [place] tel:[phone] [facility] Juvenile rheumatoid arthritis of multiple sitesFibromyalgiaOther long term acute care registered nurse (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 [facility] Bela. [address], [place], [id number], [place]. tel:[phone] Referring Provider: Luiza Henderson [address] tel:[phone] [facility], [address] [place] [address], [id number], [place] tel:[phone] [facility] Juvenile rheumatoid arthritis of multiple sitesOther [facility] (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Fibromyalgia Perry Yepez. [address] [place], [place], [id number], [place]. tel:[phone] Referring Provider: Cele Choi [address] tel:[phone] [facility], [address] [place] [address], [id number], [place] tel:[phone] [facility] Other specified abnormal findings of blood chemistry Brandyn Levy. [address] [place] [address], [id number], [place]. tel:[phone] [facility], [address] [place] [address], [id number], [place] tel:[phone] [facility] Juvenile rheumatoid arthritis of multiple sitesFibromyalgiaOther [facility] (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 Jo-Ann Levy. [address] [place] [place], [place], [id number], [place]. tel:[phone] Referring Provider: Luiza Henderson [address] tel:[phone] [facility], [address] [place] [address], [id number], [place] tel:[phone] [facility] Juvenile rheumatoid arthritis of multiple sitesFibromyalgiaLumbosacral intervertebral disc disorder Maximus Cramer. [address] [place] [address], [id number], [place]. tel:[phone] Referring Provider: Luiza Henderson [address] tel:[phone] [facility], [address] [place] [address], [id number], tel:[phone] [facility] Rheumatoid arthritis, unspecifiedOther long term acute care registered nurse (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 Morgan Ludwig. [address] [place] [address], [id number], [place]. tel:[phone] Referring Provider: Cele Choi 3 [facility] [address] [place] [address]. tel:[phone] [facility], [address] [place] [address], [id number], tel:[phone] [facility] Juvenile rheumatoid arthritis of multiple sitesOther [facility] (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 Morgan Ludwig. [address] [place] [address], [id number], [place]. tel:[phone] Referring Provider: Cele Choi 3 [facility] [address] , [place], [place]. tel:[phone] [facility], [address] [place] [address], [id number], [place] tel:[phone] [facility] No Information Maximus Ramiresher. [address] [place] [address], [id number], [place]. tel:[phone] Referring Provider: Cele Choi 3 [facility] [address] [place] [address]. tel:[phone] [facility], [address] [place] [address], [id number], [place] tel:[phone] [facility] No Information Perry Yepez. [address] [place] [address], [id number], [place]. tel:[phone] Referring Provider: Luiza Henderson [facility] [address], [place]. tel:[phone] [facility], [address] [place] [address], [id number], [place] tel:[phone] [facility] No Information Perry Yepez. [address] [place], [place], [id number], [place]. tel:[phone] Referring Provider: Cele Choi [address] tel:[phone] [facility], [address] [place] [address], [id number], [place] tel:[phone] [facility] No Information Morgan Ludwig. [address] [place] [address], [id number], [place]. tel:[phone] Referring Provider: Cele Choi [address] tel:[phone] [facility], [address] [place] [address], [id number], [place] tel:[phone] [facility] No Information Ciroyesy Yepez. [address] [place] [address], [id number], [place]. tel:[phone] Referring Provider: Cele Choi [address] tel:[phone] Family History Family Member Type Diagnosis Age [...] virus, injectable, 3 years and older Fluvirin [id number] administered Source: Other Provider Influenza virus vaccine, Injection administered Source: Other Provider pneumo (2 yrs or older) (PPV23) administered Source: Source Unspecified Influenza virus vaccine, Injection administered Source: Source Unspecified pneumo (2 yrs or older) (PPV23) administered Source: Source Unspecified Payers Payer name Insurance type Covered green party ID Authorization(s ) [facility] [id number] Medicare MB [id number] Social History Type Description Quantity Date Captured Comments Sex Female Smoking Status No Information Vital Signs Date / Time: Height Weight [...]
--- OUTSIDE RECORDS SUMMARY | 2020-07-11 17:53 | CCD | Continuity of Care Document ---
Author Author [facility] Organization [facility] Address Unknown Phone Unavailable Care Team Providers Care Merchandising Lead Name Role Phone Wall Sky DOHERTY Unavailable [...] OTC SUPPLEMENTS mvi, D3 400 units bid, [id number] units bid - Active Orencia ClickJect 125 mg/mL subcutaneous auto-injector inject 1 milliliter by subcutaneous route every week 125 MG - No Longer Active Problems Condition Type Effective Dates (start - stop) Clinical S tatus Comments Unspecified juvenile rheumatoid arthritis, multiple si zoie Diagnosis interpretation (observable entity) - Other senior living (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 Diagnosis inter pretation (observable entity) Unspecified juvenile rheumatoid arthritis, multiple si zoie Diagnosis interpretation (observable entity) Other senior living (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 Diagnosis inter pretation (observable entity) Pain in joint Diagnosis interpretation (observable entity) Unspecified juvenile rheumatoid arthritis, multiple si zoie Diagnosis interpretation (observable entity) 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 Diagnosis inter pretation (observable entity) Pain in joint Diagnosis interpretation (observable entity) Unspecified juvenile rheumatoid arthritis, multiple si zoie Diagnosis interpretation (observable entity) Other senior living (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 Diagnosis inter pretation (observable entity) Sicca syndrome, unspecified Diagnosis interpretation (observable en tity) Unspecified juvenile rheumatoid arthritis, multiple si zoie Diagnosis interpretation (observable entity) Sicca syndrome, unspecified Diagnosis interpretation (observable en tity) Other senior living (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 Diagnosis inter pretation (observable entity) Diarrhea, unspecified Diagnosis interpretation (observable entity) Unspecified juvenile rheumatoid arthritis, multiple si zoie Diagnosis interpretation (observable entity) Sicca syndrome, unspecified Diagnosis interpretation (observable en tity) Fibromyalgia Diagnosis interpretation (observable entity) Osteoarthritis Diagnosis interpretation (observable entity) 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 Diagnosis inter pretation (observable entity) Candidal stomatitis Diagnosis interpretation (observable entity) Sicca syndrome, unspecified Diagnosis interpretation (observable en tity) Unspecified juvenile rheumatoid arthritis, multiple si zoie Diagnosis interpretation (observable entity) Fibromyalgia Diagnosis interpretation (observable entity) Unspecified juvenile rheumatoid arthritis, multiple si zoie Diagnosis interpretation (observable entity) Other senior living (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 Diagnosis inter pretation (observable entity) Unspecified juvenile rheumatoid arthritis, multiple si zoie Diagnosis interpretation (observable entity) Sicca syndrome, unspecified Diagnosis interpretation (observable en tity) Fibromyalgia Diagnosis interpretation (observable entity) 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 Diagnosis inter pretation (observable entity) Diarrhea Diagnosis interpretation (observable entity) Unspecified juvenile rheumatoid arthritis, multiple si zoie Diagnosis interpretation (observable entity) Sicca syndrome, unspecified Diagnosis interpretation (observable en tity) Fibromyalgia Diagnosis interpretation (observable entity) 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 Diagnosis inter pretation (observable entity) Unspecified juvenile rheumatoid arthritis, multiple si zoie Diagnosis interpretation (observable entity) Fibromyalgia Diagnosis interpretation (observable entity) 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 Diagnosis inter pretation (observable entity) Sicca syndrome, unspecified Diagnosis interpretation (observable en tity) Unspecified juvenile rheumatoid arthritis, multiple si zoie Diagnosis interpretation (observable entity) Fibromyalgia Diagnosis interpretation (observable entity) 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 Diagnosis inter pretation (observable entity) Acute sinusitis Diagnosis interpretation (observable entity) Sicca syndrome Diagnosis interpretation (observable entity) Juvenile rheumatoid arthritis of multiple sites Diagno sis interpretation (observable entity) 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 Diagnosis inter pretation (observable entity) Fibromyalgia Diagnosis interpretation (observable entity) Sicca syndrome Diagnosis interpretation (observable entity) Juvenile rheumatoid arthritis of multiple sites Diagno sis interpretation (observable entity) Fibromyalgia Diagnosis interpretation (observable entity) Other senior living (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 Diagnosis inter pretation (observable entity) Juvenile rheumatoid arthritis of multiple sites Diagno sis interpretation (observable entity) Fibromyalgia Diagnosis interpretation (observable entity) 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 Diagnosis inter pretation (observable entity) Pain in joint of lt foot Diagnosis interpretation (observable entit y) Pain in joint of rt foot Diagnosis interpretation (observable entit y) Juvenile rheumatoid arthritis of multiple sites Diagno sis interpretation (observable entity) 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 Diagnosis inter pretation (observable entity) Fibromyalgia Diagnosis interpretation (observable entity) Pain in right shoulder Diagnosis interpretation (observable entity) Juvenile rheumatoid arthritis of multiple sites Diagno sis interpretation (observable entity) Fibromyalgia Diagnosis interpretation (observable entity) Other senior living (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 Diagnosis inter pretation (observable entity) Pain in right knee Diagnosis interpretation (observable entity) Juvenile rheumatoid arthritis of multiple sites Diagno sis interpretation (observable entity) 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 Diagnosis inter pretation (observable entity) Medial epicondylitis, right elbow Diagnosis interpretation ( observable entity) Pain in right knee Diagnosis interpretation (observable entity) Pain in left knee Diagnosis interpretation (observable entity) Fibromyalgia Diagnosis interpretation (observable entity) Juvenile rheumatoid arthritis of multiple sites Diagno sis interpretation (observable entity) Other senior living (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 Diagnosis inter pretation (observable entity) Pain in right knee Diagnosis interpretation (observable entity) Cough Diagnosis interpretation (observable entity) Juvenile rheumatoid arthritis of multiple sites Diagno sis interpretation (observable entity) Fibromyalgia Diagnosis interpretation (observable entity) Other senior living (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 Diagnosis inter pretation (observable entity) Juvenile rheumatoid arthritis of multiple sites Diagno sis interpretation (observable entity) Cervicalgia Diagnosis interpretation (observable entity) Other senior living (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 Diagnosis inter pretation (observable entity) Fibromyalgia Diagnosis interpretation (observable entity) Juvenile rheumatoid arthritis of multiple sites Diagno sis interpretation (observable entity) Fibromyalgia Diagnosis interpretation (observable entity) 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 Diagnosis inter pretation (observable entity) Juvenile rheumatoid arthritis of multiple sites Diagno sis interpretation (observable entity) Other senior living (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 Diagnosis inter pretation (observable entity) Fibromyalgia Diagnosis interpretation (observable entity) Other specified abnormal findings of blood chemistry D iagnosis interpretation (observable entity) Juvenile rheumatoid arthritis of multiple sites Diagno sis interpretation (observable entity) Fibromyalgia Diagnosis interpretation (observable entity) 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 Diagnosis inter pretation (observable entity) Juvenile rheumatoid arthritis of multiple sites Diagno sis interpretation (observable entity) Fibromyalgia Diagnosis interpretation (observable entity) Lumbosacral intervertebral disc disorder Diagnosis int erpretation (observable entity) Rheumatoid arthritis, unspecified Diagnosis interpretation ( observable entity) 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 Onset date 03/26/2012; last addressed on 04/04/2014. Juvenile rheumatoid arthritis Problem (finding) - Acti ve Mapped from [facility] Chronic Conditions table on 09/12/2014 by the ICD9 to SNOMED Bulk Mapping Utility. 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 Onset date 03/26/2012; last addressed on 04/04/2014. Rheumatoid factor negative Problem (finding) - Active Procedures Procedure Date PHONE E/M BY PHYS 5-10 MIN Results Test Name Date and Time Measure Units Reference Range Abnormal Flag St atus Comments No Information Advance Directives Directive Yes / No Effective Date File Name No Information Encounters Encounter Description Practice Location Reason(s) For Visit Diagnose s Date Provider Providers Copied on Encounter [facility], [address], [place], [id number], [place] tel:[phone] [facility] No Information Kev Swanson. [address] [place] [address], [id number], [place]. tel:[phone] PHONE E/M BY NATANAEL 5-10 MIN [facility], [address] [place] [address], [id number], [place] tel:[phone] [facility] Unspecified juvenile rheumat oid arthritis, multiple sites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 Wiley Osuna. [address] [place] [address], [id number], [place]. tel:[phone] Referring Provider: Ivon Phelps DO, [facility] [address], [place], [place], [id number]. tel:[phone] [facility], [address] [place] [address], [id number], [place] tel:[phone] [facility] No Information Wiley Osuna. [address] [place] [address], [id number], [place]. tel:[phone] [facility], [address] [place] [address], [id number], [place] tel:[phone] [facility] No Information Perry Yepez. [address] [place] [address], [id number], [place]. tel:[phone] [facility], [address] [place] [address], [id number], [place] tel:[phone] [facility] No Information Wiley Osuna. [address] [place] [address], [id number], [place]. tel:[phone] [facility], [address] [place] [address], [id number], [place] tel:[phone] [facility] Unspecified juvenile rheumatoid arthritis, multiple sites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Pain in joint Wiley Eppss. [address], [place], [id number], [place]. tel:[phone] Referring Provider: Cele Choi, [address] [place] [address]. tel:[phone] [facility], [address] [place] [address], [id number], [place] tel:[phone] [facility] Unspecified juvenile rheumatoid arthritis, multiple sites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Pain in joint Wiley Enrrique. [address], [place], [id number], [place]. tel:[phone] Specialist: Sky Rodriguez MD, [address] [place] [address], [address]. tel:[phone]: Ilan Ha MD, [address] [place] [address], [address]. tel:[phone] Provider: Cele Choi, [address] [place] [address]. tel:[phone] [facility], [address] [place] [address], [id number], [place] tel:[phone] [facility] Unspecified juvenile rheumatoid arthritis, multiple sites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Sicca syndrome, unspecified Wiley Osuna. [address] [place] [address], [id number], [place]. tel:[phone] Specialist: Sky Rodriguez MD, [address] [place] [address], [address]. tel:[phone]: Ilan Ha MD, [address] [place] [address], [address]. tel:[phone] Provider: Cele Choi, [address] [place] [address]. tel:[phone] [facility], [address] [place] [address], [id number], [place] tel:[phone] [facility] Unspecified juvenile rheumatoid arthritis, multiple sitesSicca syndrome, unspecified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Diarrhea, unspecified Perry Lucho. [address] [place] [address], [id number], [place]. tel:[phone] Specialist: Sky Rodriguez MD, [address] [place] [address], [address]. tel:[phone]: Ilan Ha MD, [address] [place] [address], [address]. tel:[phone] Provider: Cele Choi, [address] [place] [address]. tel:[phone] [facility], [address] [place] [address], [id number], [place] tel:[phone] [facility] Unspecified juvenile rheumatoid arthritis, multiple sitesSicca syndrome, unspecifiedFibromyalgiaOsteoarthritis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 Wiley Osuna. [address] [place] [address], [id number], [place]. tel:[phone] Specialist: Sky Rodriguez MD, [address] [place] [address], [address]. tel:[phone]: Ilan Ha MD, [address] [place] [address], [address]. tel:[phone]: Efrain Yepez MD, [address] [place] [address], [place], [address]. tel:[phone] Provider: Cele Choi, [address] [place] [address]. tel:[phone] [facility], [address] [place] [address], [id number], [place] tel:[phone] [facility] Candidal stomatitisSicca syndrome, unspecifiedUnspecified juvenile rheumatoid arthritis, multiple sitesFibromyalgia Wiley Osuna. [address] [place] [address], [id number], [place]. tel:[phone] Specialist: Sky Rodriguez MD, [address] [place] [address], [address]. tel:[phone]: Ilan Ha MD, [address] [place] [address], [address]. tel:[phone]: Efrain Yepez MD, [address] [place], [address]. tel:[phone] Provider: Cele Choi, [address] [place] [address]. tel:[phone] [facility], [address] [place] [address], [id number], [place] tel:[phone] [facility] Unspecified juvenile rheumatoid arthritis, multiple sites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 Wiley Osuna. [address] [place] [address], [id number], [place]. tel:[phone] Specialist: kSy Rodriguez MD, [address] [place] [address], [address]. tel:[phone]: Ilan Ha MD, [address] [place] [address], [address]. tel:[phone]: Efrain Yepez MD, [address] [place], [address]. tel:[phone] Provider: Cele Choi, [address] [place] [address]. tel:[phone] [facility], [address] [place] [address], [id number], [place] tel:[phone] [facility] Unspecified juvenile rheumatoid arthritis, multiple sitesSicca syndrome, unspecifiedFibromyalgia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Diarrhea Perry Yepez. [address] [place] [address], [id number], [place]. tel:[phone] Specialist: Sky Rodriguez MD, [address], [place], [address]. tel:[phone]: Ilan Ha MD, [address] [place] [address], [address]. tel:[phone]: Efrain Yepez MD, [address] [place], [address]. tel:[phone] Provider: Cele Choi, [address] [place] [address]. tel:[phone] [facility], [address] [place] [address], [id number], [place] tel:[phone] [facility] Unspecified juvenile rheumatoid arthritis, multiple sitesSicca syndrome, unspecifiedFibromyalgia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 Wiley Osuna. [address] [place] [address], [id number], [place]. tel:[phone] Specialist: Sky Rodriguez MD, [address], [place], [address]. tel:[phone]: Ilan Ha MD, [address] [place] [address], [address]. tel:[phone]: Efrain Yepez MD, [address] [facility], [address]. tel:[phone] Provider: Cele Choi, [address] [place] [address]. tel:[phone] [facility], [address] [place] [address], [id number], [place] tel:[phone] [facility] Unspecified juvenile rheumatoid arthritis, multiple sitesFibromyalgia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Sicca syndrome, unspecified Luzma Osuna. [address] [place] [address], [id number], [place]. tel:[phone] Specialist: Sky Rodriguez MD, [address] [place] [address], [address]. tel:[phone]: Ilan Ha MD, [address] [place] [address], [address]. tel:[phone]: Efrain Yepez MD, [address] [facility], [place], [address]. tel:[phone] Provider: Cele Choi, [address] [place] [address]. tel:[phone] [facility], [address] [place] [address], [id number], [place] tel:[phone] [facility] Unspecified juvenile rheumatoid arthritis, multiple sitesFibromyalgiaOther senior living (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Acute sinusitisSicca syndrome [facility]. [address] [place] [address], [id number], [place]. tel:[phone] Specialist: Sky Rodriguez MD, [address] [place] [address], [address]. tel:[phone]: Ilan Ha MD, [address] [place] [address], [address]. tel:[phone]: Efrain Yepez MD, [address] [place] [address], [place], [address]. tel:[phone] Provider: Cele Choi, [address] [place] [address]. tel:[phone] [facility], [address] [place] [address], [id number], [place] tel:[phone] [facility] Juvenile rheumatoid arthritis of multiple sitesOther senior living (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FibromyalgiaSicca syndrome [facility]. [address], [place], [id number], [place]. tel:[phone] Specialist: Sky Rodriguez MD, [address] [place] [address], [address]. tel:[phone]: Ilan Ha MD, [address] [place] [address], [address]. tel:[phone] Specialist: Efrain Yepez MD, [address] [place] [address], [address]. tel:[phone] Provider: Cele Choi, [address] [place] [address]. tel:[phone] [facility], [address] [place] [address], [id number], [place] tel:[phone] [facility] Juvenile rheumatoid arthritis of multiple sitesFibromyalgiaOther senior living (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 Perry Yepez. [address] [place] [address], [id number], [place]. tel:[phone] Specialist: Sky Rodriguez MD, [address] [place] [address], [address]. tel:[phone]: Ilan Ha MD, [address] [place] [address], [address]. tel:[phone]: Efrain Yepez MD, [address] [place] [address], [address]. tel:[phone] Provider: Ceel Choi, [address] [place] [address]. tel:[phone] [facility], [address] [place] [address], [id number], [place] tel:[phone] [facility] Juvenile rheumatoid arthritis of multiple sitesFibromyalgia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Pain in joint of lt footPain in joint of rt foot Ninfa Arteaga. [address] [place] [address], [id number], [place]. tel:[phone] Specialist: Sky Rodriguez MD, [address] [place] [address], [address]. tel:[phone]: Ilan Ha MD, [address] [facility], [place], [address]. tel:[phone]: Efrain Yepez MD, [address] [place] [address], [place], [address]. tel:[phone] Provider: Cele Choi, [address] [place] [address]. tel:[phone] [facility], [address] [place] [address], [id number], [place] tel:[phone] [facility] Juvenile rheumatoid arthritis of multiple sites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FibromyalgiaPain in right shoulder Perry krishnan. [address] [place] [address], [id number], [place]. tel:[phone] Referring Provider: Cele Choi, [address] [place] [address]. tel:[phone] [facility], [address] [place] [address], [id number], [place] tel:[phone] [facility] Juvenile rheumatoid arthritis of multiple sitesFibromyalgiaOther senior living (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Pain in right knee Perry Yepez. [address] [place] [address], [id number], [place]. tel:[phone] Referring Provider: Cele Choi, [address] [place] [address]. tel:[phone] [facility], [address] [place] [address], [id number], [place] tel:[phone] [facility] Juvenile rheumatoid arthritis of multiple sites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Medial epicondylitis, right elbowPain in right kneePain in left kneeFibromyalgia Maximus Cramer. [address] [place] [address], [id number], [place]. tel:[phone] Referring Provider: Cele Choi [address] [facility] [address], [place]. tel:[phone] [facility], [address] [place] [address], [id number], tel:[phone] [facility] Juvenile rheumatoid arthritis of multiple sites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Pain in right kneeCough [facility]. [address] [place] [address], [id number], [place]. tel:[phone] Referring Provider: Cele Choi, [address] tel:[phone] [facility], [address] [place] [address], [id number], [place] tel:[phone] [facility] Juvenile rheumatoid arthritis of multiple sitesFibromyalgia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 Jo-Ann Levy. [address] [place] [address], [id number], [place]. tel:[phone] Referring Provider: Cele Choi, [address] tel:[phone] [facility], [address] [place] [address], [id number], [place] tel:[phone] [facility] Juvenile rheumatoid arthritis of multiple sitesCervicalgiaOther senior living (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Fibromyalgia Perry Yepez. [address], [place], [id number], [place]. tel:[phone] Referring Provider: Cele Choi [address] tel:[phone] [facility], [address] [place] [address], [id number], [place] tel:[phone] [facility] Juvenile rheumatoid arthritis of multiple sitesFibromyalgiaOther senior living (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 [facility]. [address] [place] [address], [id number], [place]. tel:[phone] Referring Provider: Luiza Henderson [address] tel:[phone] [facility], [address] [place] [address], [id number], [place] tel:[phone] [facility] Juvenile rheumatoid arthritis of multiple sites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Fibromyalgia Mtanos Lucho. [address], [place], [id number], [place]. tel:[phone] Referring Provider: Luiza Henderson [address] tel:[phone] [facility], [address] [place] [address], [id number], [place] tel:[phone] [facility] Other specified abnormal findings of blood chemistry Brandyn Levy. [address] [place] [address], [id number], [place]. tel:[phone] [facility], [address] [place] [address], [id number], [place] tel:[phone] [facility] Juvenile rheumatoid arthritis of multiple sitesFibromyalgiaOther senior living (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 Jo-Ann Levy. [address] [place], [place], [id number], [place]. tel:[phone] Referring Provider: Luiza Henderson [address] [address], [place], [place]. tel:[phone] [facility], [address] [place] [address], [id number], [place] tel:[phone] [facility] Juvenile rheumatoid arthritis of multiple sitesFibromyalgiaLumbosacral intervertebral disc disorder [facility]. [address] [place] [address] [place], [id number], [place]. tel:[phone] Referring Provider: Luiza Henderson [address] tel:[phone] [facility], [address] [place] [address], [id number], [place] tel:[phone] [facility] Rheumatoid arthritis, unspecified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 Morgan Ludwig. [address] [place] [address], [id number], [place]. tel:[phone] Referring Provider: Luiza Henderson [address] tel:[phone] [facility], [address] [place] [address], [id number], [place] tel:[phone] [facility] Juvenile rheumatoid arthritis of multiple sitesOther senior living (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 Morgan Ludwig. [address] [place] [address], [id number], [place]. tel:[phone] Referring Provider: Luiza Henderson [address] tel:[phone] [facility], [address] [place] [address], [id number], [place] tel:[phone] [facility] No Information Machoveraul Bela. [address] [place] [address], [id number], [place]. tel:[phone] Referring Provider: Luiza Henderson [address] tel:[phone] [facility], [address] [place] [address], [id number], [place] tel:[phone] [facility] No Information Perry Yepez. [address] [place] [address], [id number], [place]. tel:[phone] Referring Provider: Cele Choi 3 [facility] [address], [place]. tel:[phone] [facility], [address] [place] [address], [id number], tel:[phone] [facility] No Information Perry Lucho. [address] [place] [address], [id number], . tel:[phone] Referring Provider: Cele Choi [address] tel:[phone] [facility], [address] [place] [address], [id number], tel:[phone] [facility] No Information Morgan Ludwig. [address] [place] [address], [id number], . tel:[phone] Referring Provider: Cele Choi [address] tel:[phone] [facility], [address] [place] [address], [id number], tel:[phone] [facility] No Information Perry Yepez. [address] [place] [address], [id number], . tel:[phone] Referring Provider: Cele Choi [address] tel:[phone] Family History Family Member Type Diagnosis Age At Onset Mother Problem (finding) Immunizations Vaccine Date Status Comments Flucelvax administered Source: Othe r Provider Influenza, injectable, MDCK, preservativ e free, 0.5 mL dosage, Flucelvax Quad administered Source: Other Provid er Influenza, injectable, MDCK, Flucelvax Quad 18 administered Source: Other Provider Influenza, injectable, quadrivalent, spl it virus, 18 years or older Afluria Quad 9437-7768 administered Note: approx ; Sourc e: Other Provider Influenza, injectable, trivalent, split virus, 4 years and older, Fluvirin administered Note: Invalid docume nted admin date was . ; Source: Other Provider Influenza, split virus, injectable, 3 years and older Fluvirin administered Source: Other Provider Influenza virus vaccine, Injection administered Source: Other Provider pneumo (2 yrs or older) (PPV23) administered Source: Source Unspecified Influenza virus vaccine, Injection administered Source: Source Unspecified pneumo (2 yrs or older) (PPV23) administered Source: Source Unspecified Payers Payer name Insurance type Covered green party ID Authorization(s ) [facility] [id number] Medicare MB [id number] Social History Type Description Quantity Date Captured [...] AND FLEXION EXTENSION ordered Appointment Elena Marroquin [place] History Of Present Illness Encounter Date Complaint [...]
--- OUTSIDE RECORDS SUMMARY | 2020-07-11 17:54 | CCD | Continuity of Care Document ---
Author Author [facility] Organization [facility] Address Unknown Phone Unavailable Care Team Providers Care Braille Teacher Name Role Phone Enrrique Jama NP Unavailable Unavailable Allergies, Adverse Reactions, Alerts Substance Reaction Status Criticality amoxicillin Hives / Skin Rash Active No Information No Known Drug Allergies Active No Information Medications Medication Instructions Dosage Effective Dates (start - stop) Sta tus Comments methotrexate sodium 2.5 mg tablet take 8 Tablet by oral route ev mara week - Active CEVIMELINE HCL 30 MG CAPSULE TAKE 1 CAPSULE BY MOUTH THREE TIMES A DAY - Active LEUCOVORIN CALCIUM 5 MG TAB TAKE 1 TABLET BY MOUTH EVERY WEEK 5 MG - Active Orencia ClickJect 125 mg/mL subcutaneous auto-injector inject 1 milliliter by subcutaneous route every week 125 MG - Active Actemra 162 mg/0.9 mL [...] OTC SUPPLEMENTS mvi, D3 400 units bid, [id number] units bid - Active Problems Condition Type Effective Dates (start - stop) Clinical S tatus Comments Unspecified juvenile rheumatoid arthritis, multiple si zoie Diagnosis interpretation (observable entity) Other correction (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 Diagnosis inter pretation (observable entity) Pain in joint Diagnosis interpretation (observable entity) Unspecified juvenile rheumatoid arthritis, multiple si zoie Diagnosis interpretation (observable entity) Other rat exterminator (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 Diagnosis inter pretation (observable entity) Pain in joint Diagnosis interpretation (observable entity) Unspecified juvenile rheumatoid arthritis, multiple si zoie Diagnosis interpretation (observable entity) Other correction (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 Diagnosis inter pretation (observable entity) Sicca syndrome, unspecified Diagnosis interpretation (observable en tity) Unspecified juvenile rheumatoid arthritis, multiple si zoie Diagnosis interpretation (observable entity) Sicca syndrome, unspecified Diagnosis interpretation (observable en tity) Other correction (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 Diagnosis inter pretation (observable entity) Diarrhea, unspecified Diagnosis interpretation (observable entity) Unspecified juvenile rheumatoid arthritis, multiple si zoie Diagnosis interpretation (observable entity) Sicca syndrome, unspecified Diagnosis interpretation (observable en tity) Fibromyalgia Diagnosis interpretation (observable entity) Osteoarthritis Diagnosis interpretation (observable entity) Other correction (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 Diagnosis inter pretation (observable entity) Candidal stomatitis Diagnosis interpretation (observable entity) Sicca syndrome, unspecified Diagnosis interpretation (observable en tity) Unspecified juvenile rheumatoid arthritis, multiple si zoie Diagnosis interpretation (observable entity) Fibromyalgia Diagnosis interpretation (observable entity) Unspecified juvenile rheumatoid arthritis, multiple si zoie Diagnosis interpretation (observable entity) Other correction (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 Diagnosis inter pretation (observable entity) Unspecified juvenile rheumatoid arthritis, multiple si zoie Diagnosis interpretation (observable entity) Sicca syndrome, unspecified Diagnosis interpretation (observable en tity) Fibromyalgia Diagnosis interpretation (observable entity) Other rat exterminator (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 Diagnosis inter pretation (observable entity) Diarrhea Diagnosis interpretation (observable entity) Unspecified juvenile rheumatoid arthritis, multiple si zoie Diagnosis interpretation (observable entity) Sicca syndrome, unspecified Diagnosis interpretation (observable en tity) Fibromyalgia Diagnosis interpretation (observable entity) Other correction (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 Diagnosis inter pretation (observable entity) Unspecified juvenile rheumatoid arthritis, multiple si zoie Diagnosis interpretation (observable entity) Fibromyalgia Diagnosis interpretation (observable entity) Other rat exterminator (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 Diagnosis inter pretation (observable entity) Sicca syndrome, unspecified Diagnosis interpretation (observable en tity) Unspecified juvenile rheumatoid arthritis, multiple si zoie Diagnosis interpretation (observable entity) Fibromyalgia Diagnosis interpretation (observable entity) Other rat exterminator (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 Diagnosis inter pretation (observable entity) Acute sinusitis Diagnosis interpretation (observable entity) Sicca syndrome Diagnosis interpretation (observable entity) Juvenile rheumatoid arthritis of multiple sites Diagno sis interpretation (observable entity) Other rat exterminator (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 Diagnosis inter pretation (observable entity) Fibromyalgia Diagnosis interpretation (observable entity) Sicca syndrome Diagnosis interpretation (observable entity) Juvenile rheumatoid arthritis of multiple sites Diagno sis interpretation (observable entity) Fibromyalgia Diagnosis interpretation (observable entity) Other correction (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 Diagnosis inter pretation (observable entity) Juvenile rheumatoid arthritis of multiple sites Diagno sis interpretation (observable entity) Fibromyalgia Diagnosis interpretation (observable entity) Other correction (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 Diagnosis inter pretation (observable entity) Pain in joint of lt foot Diagnosis interpretation (observable entit y) Pain in joint of rt foot Diagnosis interpretation (observable entit y) Juvenile rheumatoid arthritis of multiple sites Diagno sis interpretation (observable entity) Other correction (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 Diagnosis inter pretation (observable entity) Fibromyalgia Diagnosis interpretation (observable entity) Pain in right shoulder Diagnosis interpretation (observable entity) Juvenile rheumatoid arthritis of multiple sites Diagno sis interpretation (observable entity) Fibromyalgia Diagnosis interpretation (observable entity) Other rat exterminator (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 Diagnosis inter pretation (observable entity) Pain in right knee Diagnosis interpretation (observable entity) Juvenile rheumatoid arthritis of multiple sites Diagno sis interpretation (observable entity) Other rat exterminator (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 Diagnosis inter pretation (observable entity) Medial epicondylitis, right elbow Diagnosis interpretation ( observable entity) Pain in right knee Diagnosis interpretation (observable entity) Pain in left knee Diagnosis interpretation (observable entity) Fibromyalgia Diagnosis interpretation (observable entity) Juvenile rheumatoid arthritis of multiple sites Diagno sis interpretation (observable entity) Other rat exterminator (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 Diagnosis inter pretation (observable entity) Pain in right knee Diagnosis interpretation (observable entity) Cough Diagnosis interpretation (observable entity) Juvenile rheumatoid arthritis of multiple sites Diagno sis interpretation (observable entity) Fibromyalgia Diagnosis interpretation (observable entity) Other correction (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 Diagnosis inter pretation (observable entity) Juvenile rheumatoid arthritis of multiple sites Diagno sis interpretation (observable entity) Cervicalgia Diagnosis interpretation (observable entity) Other correction (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 Diagnosis inter pretation (observable entity) Fibromyalgia Diagnosis interpretation (observable entity) Juvenile rheumatoid arthritis of multiple sites Diagno sis interpretation (observable entity) Fibromyalgia Diagnosis interpretation (observable entity) Other correction (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 Diagnosis inter pretation (observable entity) Juvenile rheumatoid arthritis of multiple sites Diagno sis interpretation (observable entity) Other rat exterminator (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 Diagnosis inter pretation (observable entity) Fibromyalgia Diagnosis interpretation (observable entity) Other specified abnormal findings of blood chemistry D iagnosis interpretation (observable entity) Juvenile rheumatoid arthritis of multiple sites Diagno sis interpretation (observable entity) Fibromyalgia Diagnosis interpretation (observable entity) Other rat exterminator (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 Diagnosis inter pretation (observable entity) Juvenile rheumatoid arthritis of multiple sites Diagno sis interpretation (observable entity) Fibromyalgia Diagnosis interpretation (observable entity) Lumbosacral intervertebral disc disorder Diagnosis int erpretation (observable entity) Rheumatoid arthritis, unspecified Diagnosis interpretation ( observable entity) Other correction (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 Diagnosis inter pretation (observable entity) Juvenile rheumatoid arthritis of multiple sites Diagno sis interpretation (observable entity) Other rat exterminator (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 Diagnosis inter pretation (observable entity) High risk drug monitoring status Problem (finding) - A ctive Mapped from [facility] Chronic Conditions table on 10/09/2014 by the ICD9 to [employer] Bulk Mapping Utility. The mapped diagnosis code was rat exterminator use of medication, V58.69, added by Lucho Amador MD, with responsible provider Lucho Amador MD. Onset date 03/26/2012; last addressed on 04/04/2014. Juvenile rheumatoid arthritis Problem (finding) - Acti ve Mapped from [facility] Chronic Conditions table on 09/12/2014 by the [...] s Date Provider Providers Copied on Encounter [facility], [address] [place] [address], [id number], tel:[phone] [facility] No Information Wiley Osuna. [address] [place] [address], [id number], . tel:[phone] [facility], [address] [place] [address], [id number], tel:[phone] [facility] No Information Wiley Osuna. [address] [place] [address], [id number], [place]. tel:[phone] [facility], [address] [place] [address], [id number], [place] tel:[phone] [facility] No Information Perry Yepez. [address] [place] [address], [id number], [place]. tel:[phone] [facility], [address] [place] [address], [id number], [place] tel:[phone] [facility] No Information Wiley Osuna. [address] [place] [address], [id number], [place]. tel:[phone] [facility], [address] [place] [address], [id number], [place] tel:[phone] [facility] Unspecified juvenile rheumatoid arthritis, multiple sitesOther correction (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Pain in joint Wiley Osuna. [address] [place] [address], [id number], [place]. tel:[phone] Referring Provider: Cele Choi, [address] [place] [address]. tel:[phone] [facility], [address] [place] [address], [id number], [place] tel:[phone] [facility] Unspecified juvenile rheumatoid arthritis, multiple sitesOther rat exterminator (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Pain in joint Wiley Osuna. [address] [place] [address], [id number], [place]. tel:[phone] Specialist: Sky Rodriguez MD, [address] [place], [address]. tel:[phone]: Ilan Ha MD, [address] [place], [address]. tel:[phone] Provider: Cele Choi, [address] tel:[phone] [facility], [address] [place] [address], [id number], [place] tel:[phone] [facility] Unspecified juvenile rheumatoid arthritis, multiple sitesOther correction (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Sicca syndrome, unspecified Wiley Osuna. [address] [place] [address], [id number], [place]. tel:[phone] Specialist: Sky Rodriguez MD, [address] [place] [address], [address]. tel:[phone]: Ilan Ha MD, [address] [place] [address], [address]. tel:[phone] Provider: Cele Choi, [address] tel:[phone] [facility], [address] [place] [address], [id number], [place] tel:[phone] [facility] Unspecified juvenile rheumatoid arthritis, multiple sitesSicca syndrome, unspecifiedOther correction (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Diarrhea, unspecified Perry Yepez. [address] [place] [address], [id number], [place]. tel:[phone] Specialist: Sky Rodriguez MD, [address] [place] [address], [address]. tel:[phone]: Ilan Ha MD, [address] [place] [address], [address]. tel:[phone] Provider: Cele Choi, [address] tel:[phone] [facility], [address] [place] [address], [id number], [place] tel:[phone] [facility] Unspecified juvenile rheumatoid arthritis, multiple sitesSicca syndrome, unspecifiedFibromyalgiaOsteoarthritisOther rat exterminator (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 Wiley Osuna. [address] [place] [address], [id number], [place]. tel:[phone] Specialist: Sky Rodriguez MD, [address] [place] [address], [address]. tel:[phone]: Ilna Ha MD, [address] [place] [address], [address]. tel:[phone]: Efrain Yepez MD, [address] [place], [address]. tel:[phone] Provider: Cele Choi, [address] [place] [address]. tel:[phone] [facility], [address] [place] [address], [id number], [place] tel:[phone] [facility] Candidal stomatitisSicca syndrome, unspecifiedUnspecified juvenile rheumatoid arthritis, multiple sitesFibromyalgia Wiley Osuna. [address] [place] [address], [id number], [place]. tel:[phone] Specialist: Sky Rodriguez MD, [address] [place] [address], [address]. tel:[phone]: Ilan Ha MD, [address] [place] [address], [address]. tel:[phone]: Efrain Yepez MD, [facility] GarciaGeorge C[facility] [place], [address]. tel:[phone] Provider: Cele Choi, [address] [place] [address]. tel:[phone] [facility], [address] [place] [address], [id number], [place] tel:[phone] [facility] Unspecified juvenile rheumatoid arthritis, multiple sitesOther correction (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 Wiley Osuna. [address] [place] [address], [id number], [place]. tel:[phone] Specialist: Sky Rodriguez MD, [address], [place], [address]. tel:[phone]: Ilan Ha MD, [address] [place] [address], [address]. tel:[phone]: Efrain Yepez MD, [address] [place], [address]. tel:[phone] Provider: Cele Choi, [address] tel:[phone] [facility], [address] [place] [address], [id number], [place] tel:[phone] [facility] Unspecified juvenile rheumatoid arthritis, multiple sitesSicca syndrome, unspecifiedFibromyalgiaOther correction (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Diarrpremier health [facility] Perry Yepez. [address] [place] [address], [id number], [place]. tel:[phone] Specialist: Sky Rodriguez MD, [address], [place], [address]. tel:[phone]: Ilan Ha MD, [address] [place] [address], [address]. tel:[phone]: Efrain Yepez MD, [address], [place], [address]. tel:[phone] Provider: Cele Choi, [address] tel:[phone] [facility], [address] [place] [address], [id number], [place] tel:[phone] [facility] Unspecified juvenile rheumatoid arthritis, multiple sitesSicca syndrome, unspecifiedFibromyalgiaOther rat exterminator (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 Wiley Osuna. [address] [place] [address] [place], [id number], [place]. tel:[phone] Specialist: Sky Rodriguez MD, [address] [place] [address], [address]. tel:[phone]: Ilan Ha MD, [address] [place] [address], [address]. tel:[phone]: Efrain Yepez MD, [address] [place] [address], [address]. tel:[phone] Provider: Cele Choi, [address] [place] [address]. tel:[phone] [facility], [address] [place] [address], [id number], [place] tel:[phone] [facility] Unspecified juvenile rheumatoid arthritis, multiple sitesFibromyalgiaOther correction (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Sicca syndrome, unspecified Luzma Osuna. [address] [place] [address], [id number], [place]. tel:[phone] Specialist: Sky Rodriguez MD, [address] [place] [address], [address]. tel:[phone]: Ilan Ha MD, [address] [place] [address], [address]. tel:[phone]: Efrain Yepez MD, [address] [place] [address], [address]. tel:[phone] Provider: Cele Choi, [address] [place] [address]. tel:[phone] [facility], [address] [place] [address], [id number], [place] tel:[phone] [facility] Unspecified juvenile rheumatoid arthritis, multiple sitesFibromyalgiaOther rat exterminator (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Acute sinusitisSicca syndrome Sagar Yepez. [address] [place] [address], [id number], [place]. tel:[phone] Specialist: Sky Rodriguez MD, [address] [place] [address], [address]. tel:[phone]: Ilan Ha MD, [address] [place] [address], [address]. tel:[phone]: Efrain Yepez MD, [facility] [place], [address]. tel:[phone] Provider: Cele Choi, [address] [place] [address]. tel:[phone] [facility], [address] [place] [address], [id number], [place] tel:[phone] [facility] Juvenile rheumatoid arthritis of multiple sitesOther rat exterminator (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FibromyalgiaSicca syndrome [facility]. [address] [place] [address], [id number], [place]. tel:[phone] Specialist: Sky Rodriguez MD, [address] [place] [address], [address]. tel:[phone]: Ilan Ha MD, [address] [place] [address], [address]. tel:[phone] Specialist: Efrain Yepez MD, [address] [place] [address], [address]. tel:[phone] Provider: Cele Choi, [address] [place] [address]. tel:[phone] [facility], [address] [place] [address], [id number], [place] tel:[phone] [facility] Juvenile rheumatoid arthritis of multiple sitesFibromyalgiaOther correction (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 Perry Yepez. [address] [place], [place], [id number], [place]. tel:[phone] Specialist: Sky Rodriguez MD, [address] [place] [address], [address]. tel:[phone]: Ilan Ha MD, [address] [place] [address], [address]. tel:[phone]: Efrain Yepez MD, [address] [place] [address], [address]. tel:[phone] Provider: Cele Choi, [address] tel:[phone] [facility], [address] [place] [address], [id number], [place] tel:[phone] [facility] Juvenile rheumatoid arthritis of multiple sitesFibromyalgiaOther correction (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Pain in joint of lt footPain in joint of rt foot Ninfa Arteaga. [address] [place] [address], [id number], . tel:[phone] Specialist: Sky Rodriguez MD, [address] [place] [address], [address]. tel:[phone]: Ilan Ha MD, [address] [place] [address], [address]. tel:[phone]: Efrain Yepez MD, [address] [place] [address], [address]. tel:[phone] Provider: Cele Choi, [address] tel:[phone] [facility], [address] [place] [address], [id number], [place] tel:[phone] [facility] Juvenile rheumatoid arthritis of multiple sitesOther rat exterminator (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FibromyalgiaPain in right shoulder Perry epstein [address] [place] [address], [id number], [place]. tel:[phone] Referring Provider: Cele Choi, [address] tel:[phone] [facility], [address] [place], [place], [id number], [place] tel:[phone] [facility] Juvenile rheumatoid arthritis of multiple sitesFibromyalgiaOther rat exterminator (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Pain in right knee Perry Yepez. [address] [place], [place], [id number], [place]. tel:[phone] Referring Provider: Cele Choi, [address] [place] [address]. tel:[phone] [facility], [address] [place] [address], [id number], [place] tel:[phone] [facility] Juvenile rheumatoid arthritis of multiple sitesOther rat exterminator (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Medial epicondylitis, right elbowPain in right kneePain in left kneeFibromyalgia Maya Bela. [address] [place] [address], [id number], [place]. tel:[phone] Referring Provider: Cele Choi [address] tel:[phone] [facility], [address] [place] [address], [id number], [place] tel:[phone] [facility] Juvenile rheumatoid arthritis of multiple sitesOther rat exterminator (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Pain in right kneeCough Wangconfluence health Bela. [address] [place], [place], [id number], [place]. tel:[phone] Referring Provider: Cele Choi, [address] [place] [address]. tel:[phone] [facility], [address] [place] [address], [id number], [place] tel:[phone] [facility] Juvenile rheumatoid arthritis of multiple sitesFibromyalgiaOther correction (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 Jo-Ann Levy. [address] [place], [place], [id number], [place]. tel:[phone] Referring Provider: Luiza [address] [address], [place], [place]. tel:[phone] [facility], [address] [place] [address], [id number], [place] tel:[phone] [facility] Juvenile rheumatoid arthritis of multiple sitesCervicalgiaOther rat exterminator (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Fibromyalgia Perry Yepez. [address] [place], [place], [id number], [place]. tel:[phone] Referring Provider: Cele Choi [address] tel:[phone] [facility], [address] [place] [address], [id number], [place] tel:[phone] [facility] Juvenile rheumatoid arthritis of multiple sitesFibromyalgiaOther correction (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 Maximus Cramer. [address] [place] [address], [id number], [place]. tel:[phone] Referring Provider: Luiza Henderson [address] [address], [place], [place]. tel:[phone] [facility], [address] [place] [address], [id number], [place] tel:[phone] [facility] Juvenile rheumatoid arthritis of multiple sitesOther rat exterminator (current) drug therapyFibromyalgia Perry Yepez. [address] [place], [place], [id number], [place]. tel:[phone] Referring Provider: Cele Choi [address] [address], [place], [place]. tel:[phone] [facility], [address] [place] [address], [id number], [place] tel:[phone] [facility] Other specified abnormal findings of blood chemistry Brandyn lai Mildred. [address] [place] [address], [id number], [place]. tel:[phone] [facility], [address] [place] [address], [id number], [place] tel:[phone] [facility] Juvenile rheumatoid arthritis of multiple sitesFibromyalgiaOther correction (current) drug therapy Jo-Ann Mildred. [address] [place], [place], [id number], [place]. tel:[phone] Referring Provider: Luiza Henderson [address] tel:[phone] [facility], [address] [place] [address], [id number], [place] tel:[phone] [facility] Juvenile rheumatoid arthritis of multiple sitesFibromyalgiaLumbosacral intervertebral disc disorder Maximus Cramer. [address] [place] [address], [id number], [place]. tel:[phone] Referring Provider: Luiza Henderson [address] tel:[phone] [facility], [address] [place] [address], [id number], [place] tel:[phone] [facility] Rheumatoid arthritis, unspecifiedOther rat exterminator (current) drug therapy Morgan Ludwig. [address] [place] [address], [id number], [place]. tel:[phone] Referring Provider: Luiza Henderson [address] tel:[phone] [facility], [address] [place] [address], [id number], [place] tel:[phone] [facility] Juvenile rheumatoid arthritis of multiple sitesOther rat exterminator (current) drug therapy Morgan Ludwig. [address] [place] [address], [id number], [place]. tel:[phone] Referring Provider: Luiza Henderson [facility] [address], [place], [place]. tel:[phone] [facility], [address] [place] [address], [id number], [place] tel:[phone] [facility] No Information Maximus Bela. [address] [place], [place], [id number], [place]. tel:[phone] Referring Provider: Luiza Henderson [facility] [address], [place], [place]. tel:[phone] [facility], [address] [place] [address], [id number], [place] tel:[phone] [facility] No Information Perry Yepez. [address] [place] [address], [id number], [place]. tel:[phone] Referring Provider: Luiza Henderson [facility] [address], [place]. tel:[phone] [facility], [address] [place] [address], [id number], [place] tel:[phone] [facility] No Information Perry Yepez. [address] [place] [address], [id number], [place]. tel:[phone] Referring Provider: Luiza Henderson [facility] [address] , [place], [place]. tel:[phone] [facility], [address] [place] [address], [id number], [place] tel:[phone] [facility] No Information Morgan Ludwig. [address] [place], [place], [id number], [place]. tel:[phone] Referring Provider: Cele Choi, [address] [facility] [address], [place]. tel:[phone] [facility], [address] [place], [place], [id number], tel:[phone] [facility] No Information Perry Yepez. [address] [place], [place], [id number], . tel:[phone] Referring Provider: Cele Choi, [address] [facility] [address], [place]. tel:[phone] Family History Family Member Type Diagnosis Age [...] virus, injectable, 3 years and older Fluvirin [id number] administered Source: Other Provider Influenza virus vaccine, Injection administered Source: Other Provider pneumo (2 yrs or older) (PPV23) administered Source: Source Unspecified Influenza virus vaccine, Injection administered Source: Source Unspecified pneumo (2 yrs or older) (PPV23) administered Source: Source Unspecified Payers Payer name Insurance type Covered republican ID Authorization(s ) Kam CALVIN [id number] Medicare MB [id number] Social History Type Description Quantity Date Captured [...] Risks/benefits of medications discussed, handout given on [employer] Conservative medical care me asures discussed. Moderate [...]
--- OUTSIDE RECORDS SUMMARY | 2020-07-11 17:54 | CCD | Continuity of Care Document ---
Author Author [facility] Organization [facility] Address Unknown Phone Unavailable Care Team Providers Care Adobe Architect Name Role Phone Enrrique Jama NP Unavailable [...] OTC SUPPLEMENTS mvi, D3 400 units bid, [id number] units bid - Active methotrexate sodium 2.5 mg tablet take 8 Tablet by oral route e very week 20 MG - No Longer Active methotrexate sodium 2.5 mg tablet take 8 Tablet by oral route e very week 20 MG - No Longer Active Problems Condition Type Effective Dates (start - stop) Clinical S tatus Comments Unspecified juvenile rheumatoid arthritis, multiple si zoie Diagnosis interpretation (observable entity) Other retirement (current) drug therapy Diagnosis inter pretation (observable entity) Pain in joint Diagnosis interpretation (observable entity) Unspecified juvenile rheumatoid arthritis, multiple si zoie Diagnosis interpretation (observable entity) Other intermodal dispatcher (current) drug therapy Diagnosis inter pretation (observable entity) Pain in joint Diagnosis interpretation (observable entity) Unspecified juvenile rheumatoid arthritis, multiple si zoie Diagnosis interpretation (observable entity) Other retirement (current) drug therapy Diagnosis inter pretation (observable entity) Sicca syndrome, unspecified Diagnosis interpretation (observable en tity) Unspecified juvenile rheumatoid arthritis, multiple si zoie Diagnosis interpretation (observable entity) Sicca syndrome, unspecified Diagnosis interpretation (observable en tity) Other intermodal dispatcher (current) drug therapy Diagnosis inter pretation (observable entity) Diarrhea, unspecified Diagnosis interpretation (observable entity) Unspecified juvenile rheumatoid arthritis, multiple si zoie Diagnosis interpretation (observable entity) Sicca syndrome, unspecified Diagnosis interpretation (observable en tity) Fibromyalgia Diagnosis interpretation (observable entity) Osteoarthritis Diagnosis interpretation (observable entity) Other intermodal dispatcher (current) drug therapy Diagnosis inter pretation (observable entity) Candidal stomatitis Diagnosis interpretation (observable entity) Sicca syndrome, unspecified Diagnosis interpretation (observable en tity) Unspecified juvenile rheumatoid arthritis, multiple si zoie Diagnosis interpretation (observable entity) Fibromyalgia Diagnosis interpretation (observable entity) Unspecified juvenile rheumatoid arthritis, multiple si zoie Diagnosis interpretation (observable entity) Other retirement (current) drug therapy Diagnosis inter pretation (observable entity) Unspecified juvenile rheumatoid arthritis, multiple si zoie Diagnosis interpretation (observable entity) Sicca syndrome, unspecified Diagnosis interpretation (observable en tity) Fibromyalgia Diagnosis interpretation (observable entity) Other retirement (current) drug therapy Diagnosis inter pretation (observable entity) Diarrhea Diagnosis interpretation (observable entity) Unspecified juvenile rheumatoid arthritis, multiple si zoie Diagnosis interpretation (observable entity) Sicca syndrome, unspecified Diagnosis interpretation (observable en tity) Fibromyalgia Diagnosis interpretation (observable entity) Other retirement (current) drug therapy Diagnosis inter pretation (observable entity) Unspecified juvenile rheumatoid arthritis, multiple si zoie Diagnosis interpretation (observable entity) Fibromyalgia Diagnosis interpretation (observable entity) Other retirement (current) drug therapy Diagnosis inter pretation (observable entity) Sicca syndrome, unspecified Diagnosis interpretation (observable en tity) Unspecified juvenile rheumatoid arthritis, multiple si zoie Diagnosis interpretation (observable entity) Fibromyalgia Diagnosis interpretation (observable entity) Other retirement (current) drug therapy Diagnosis inter pretation (observable entity) Acute sinusitis Diagnosis interpretation (observable entity) Sicca syndrome Diagnosis interpretation (observable entity) Juvenile rheumatoid arthritis of multiple sites Diagno sis interpretation (observable entity) Other retirement (current) drug therapy Diagnosis inter pretation (observable entity) Fibromyalgia Diagnosis interpretation (observable entity) Sicca syndrome Diagnosis interpretation (observable entity) Juvenile rheumatoid arthritis of multiple sites Diagno sis interpretation (observable entity) Fibromyalgia Diagnosis interpretation (observable entity) Other retirement (current) drug therapy Diagnosis inter pretation (observable entity) Juvenile rheumatoid arthritis of multiple sites Diagno sis interpretation (observable entity) Fibromyalgia Diagnosis interpretation (observable entity) Other intermodal dispatcher (current) drug therapy Diagnosis inter pretation (observable entity) Pain in joint of lt foot Diagnosis interpretation (observable entit y) Pain in joint of rt foot Diagnosis interpretation (observable entit y) Juvenile rheumatoid arthritis of multiple sites Diagno sis interpretation (observable entity) Other intermodal dispatcher (current) drug therapy Diagnosis inter pretation (observable entity) Fibromyalgia Diagnosis interpretation (observable entity) Pain in right shoulder Diagnosis interpretation (observable entity) Juvenile rheumatoid arthritis of multiple sites Diagno sis interpretation (observable entity) Fibromyalgia Diagnosis interpretation (observable entity) Other intermodal dispatcher (current) drug therapy Diagnosis inter pretation (observable entity) Pain in right knee Diagnosis interpretation (observable entity) Juvenile rheumatoid arthritis of multiple sites Diagno sis interpretation (observable entity) Other retirement (current) drug therapy Diagnosis inter pretation (observable entity) Medial epicondylitis, right elbow Diagnosis interpretation ( observable entity) Pain in right knee Diagnosis interpretation (observable entity) Pain in left knee Diagnosis interpretation (observable entity) Fibromyalgia Diagnosis interpretation (observable entity) Juvenile rheumatoid arthritis of multiple sites Diagno sis interpretation (observable entity) Other intermodal dispatcher (current) drug therapy Diagnosis inter pretation (observable entity) Pain in right knee Diagnosis interpretation (observable entity) Cough Diagnosis interpretation (observable entity) Juvenile rheumatoid arthritis of multiple sites Diagno sis interpretation (observable entity) Fibromyalgia Diagnosis interpretation (observable entity) Other intermodal dispatcher (current) drug therapy Diagnosis inter pretation (observable entity) Juvenile rheumatoid arthritis of multiple sites Diagno sis interpretation (observable entity) Cervicalgia Diagnosis interpretation (observable entity) Other intermodal dispatcher (current) drug therapy Diagnosis inter pretation (observable entity) Fibromyalgia Diagnosis interpretation (observable entity) Juvenile rheumatoid arthritis of multiple sites Diagno sis interpretation (observable entity) Fibromyalgia Diagnosis interpretation (observable entity) Other retirement (current) drug therapy Diagnosis inter pretation (observable entity) Juvenile rheumatoid arthritis of multiple sites Diagno sis interpretation (observable entity) Other intermodal dispatcher (current) drug therapy Diagnosis inter pretation (observable entity) Fibromyalgia Diagnosis interpretation (observable entity) Other specified abnormal findings of blood chemistry D iagnosis interpretation (observable entity) Juvenile rheumatoid arthritis of multiple sites Diagno sis interpretation (observable entity) Fibromyalgia Diagnosis interpretation (observable entity) Other retirement (current) drug therapy Diagnosis inter pretation (observable entity) Juvenile rheumatoid arthritis of multiple sites Diagno sis interpretation (observable entity) Fibromyalgia Diagnosis interpretation (observable entity) Lumbosacral intervertebral disc disorder Diagnosis int erpretation (observable entity) Rheumatoid arthritis, unspecified Diagnosis interpretation ( observable entity) Other retirement (current) drug therapy Diagnosis inter pretation (observable entity) Juvenile rheumatoid arthritis of multiple sites Diagno sis interpretation (observable entity) Other intermodal dispatcher (current) drug therapy Diagnosis inter pretation (observable entity) High risk drug monitoring status Problem (finding) - A ctive Mapped from [facility] Chronic Conditions table on 10/09/2014 by the ICD9 to SNOM[employer] Bulk Mapping Utility. 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 Onset date 03/26/2012; last addressed on 04/04/2014. Juvenile rheumatoid arthritis Problem (finding) - Acti ve Mapped from [facility] Chronic Conditions table on 09/12/2014 by the [...] s Date Provider Providers Copied on Encounter [facility], [address] [place] [address], [id number], [place] tel:[phone] [facility] No Information Wiley Osuna. [address] [place] [address], [id number], [place]. tel:[phone] [facility], [address] [place] [address], [id number], [place] tel:[phone] [facility] No Information Perry Yepez. [address] [place], [place], [id number], [place]. tel:[phone] [facility], [address] [place] [address], [id number], [place] tel:[phone] [facility] No Information Wiley Enrrique. [address] [place] [address], [id number], [place]. tel:[phone] [facility], [address] [place] [address], [id number], [place] tel:[phone] [facility] Unspecified juvenile rheumatoid arthritis, multiple sitesOther intermodal dispatcher (current) drug therapyPain in joint Wiley Osuna. [address] [place] [address], [id number], [place]. tel:[phone] Referring Provider: Cele Choi, [address] [place] [address]. tel:[phone] [facility], [address] [place] [address], [id number], [place] tel:[phone] [facility] Unspecified juvenile rheumatoid arthritis, multiple sitesOther retirement (current) drug therapyPain in joint Wiley Osuna. [address] [place] [address], [id number], [place]. tel:[phone] Specialist: Sky Rodriguez MD, [address] [facility], [place], [address]. tel:[phone]: Ilan Ha MD, [address] [place], [address]. tel:[phone] Provider: Cele Choi, [address] tel:[phone] [facility], [address] [place] [address], [id number], [place] tel:[phone] [facility] Unspecified juvenile rheumatoid arthritis, multiple sitesOther retirement (current) drug therapySicca syndrome, unspecified Wiley Osuna. [address] [place] [address], [id number], [place]. tel:[phone] Specialist: Sky Rodriguez MD, [address] [place] [address], [address]. tel:[phone]: Ilan Ha MD, [address] [place] [address], [address]. tel:[phone] Provider: Cele Choi, [address] [place] [address]. tel:[phone] [facility], [address] [place] [address], [id number], [place] tel:[phone] [facility] Unspecified juvenile rheumatoid arthritis, multiple sitesSicca syndrome, unspecifiedOther retirement (current) drug therapyDiarrhea, unspecified Perry Yepez. [address] [place] [address], [id number], [place]. tel:[phone] Specialist: Sky Rodriguez MD, [address] [place] [address], [address]. tel:[phone]: Ilan Ha MD, [address] [place] [address], [address]. tel:[phone] Provider: Cele Choi, [address] [place] [address]. tel:[phone] [facility], [address] [place] [address], [id number], [place] tel:[phone] [facility] Unspecified juvenile rheumatoid arthritis, multiple sitesSicca syndrome, unspecifiedFibromyalgiaOsteoarthritisOther retirement (current) drug therapy Wiley Osuna. [address] [place] [address], [id number], [place]. tel:[phone] Specialist: Sky Rodriguez MD, [address] [place] [address], [address]. tel:[phone]: Ilan Ha MD, [address] [place] [address], [address]. tel:[phone]: Efrain Yepez MD, [address] [place] [address], [address]. tel:[phone] Provider: Cele Choi, [address] [place] [address]. tel:[phone] [facility], [address] [place] [address], [id number], [place] tel:[phone] [facility] Candidal stomatitisSicca syndrome, unspecifiedUnspecified juvenile rheumatoid arthritis, multiple sitesFibromyalgia Wiley Osuna. [address] [place] [address], [id number], [place]. tel:[phone] Specialist: Sky Rodriguez MD, [address] [place] [address], [address]. tel:[phone]: Ilan Ha MD, [address] [place] [address], [address]. tel:[phone]: Efrain Yepez MD, [address] [place] [address], [place], [address]. tel:[phone] Provider: Cele Choi, [address] [place] [address]. tel:[phone] [facility], [address] [place] [address], [id number], [place] tel:[phone] [facility] Unspecified juvenile rheumatoid arthritis, multiple sitesOther intermodal dispatcher (current) drug therapy Wiley Osuna. [address] [place] [address], [id number], [place]. tel:[phone] Specialist: Sky Rodriguez MD, [address], [place], [address]. tel:[phone]: Ilan Ha MD, [address] [place] [address], [address]. tel:[phone]: Efrain Yepez MD, [address] [place], [address]. tel:[phone] Provider: Cele Choi, [address] [place] [address]. tel:[phone] [facility], [address] [place] [address], [id number], [place] tel:[phone] [facility] Unspecified juvenile rheumatoid arthritis, multiple sitesSicca syndrome, unspecifiedFibromyalgiaOther intermodal dispatcher (current) drug therapyDiarrhea Perry Yepez. [address] [place] [address], [id number], [place]. tel:[phone] Specialist: Sky Rodriguez MD, [address], [place], [address]. tel:[phone]: Ilan Ha MD, [address] [place] [address], [address]. tel:[phone]: Efrain Yepez MD, [address] [place] [address], [address]. tel:[phone] Provider: Cele Choi, [address] [place] [address]. tel:[phone] [facility], [address] [place] [address], [id number], [place] tel:[phone] [facility] Unspecified juvenile rheumatoid arthritis, multiple sitesSicca syndrome, unspecifiedFibromyalgiaOther intermodal dispatcher (current) drug therapy Wiley Osuna. [address] [place] [address], [id number], [place]. tel:[phone] Specialist: Sky Rodriguez MD, [address] [place] [address], [address]. tel:[phone]: Ilan Ha MD, [address] [place] [address], [address]. tel:[phone]: Efrain Yepez MD, [address] [place] [address], [address]. tel:[phone] Provider: Cele Choi, [address] [place] [address]. tel:[phone] [facility], [address] [place] [address], [id number], [place] tel:[phone] [facility] Unspecified juvenile rheumatoid arthritis, multiple sitesFibromyalgiaOther intermodal dispatcher (current) drug therapySicca syndrome, unspecified Tydom yaquelin Osuna. [address] [place] [address], [id number], [place]. tel:[phone] Specialist: Sky Rodriguez MD, [address] [place] [address], [address]. tel: [phone]: Ilan Ha MD, [address] [place] [address], [address]. tel:[phone]: Efrain Yepez MD, [address] [place] [address], [address]. tel:[phone] Provider: Cele Choi, [address] [place] [address]. tel:[phone] [facility], [address] [place] [address], [id number], [place] tel:[phone] [facility] Unspecified juvenile rheumatoid arthritis, multiple sitesFibromyalgiaOther retirement (current) drug therapyAcute sinusitisSicca syndrome Sagar browne Lucho. [address] [place] [address], [id number], [place]. tel:[phone] Specialist: Sky Rodriguez MD, [address] [place] [address], [address]. tel:[phone]: Ilan Ha MD, [address] [place] [address], [address]. tel:[phone]: Efrain Yepez MD, [address] [place] [address], [address]. tel:[phone] Provider: Cele Choi, [address] [place] [address]. tel:[phone] [facility], [address] [place] [address], [id number], [place] tel:[phone] [facility] Juvenile rheumatoid arthritis of multiple sitesOther retirement (current) drug therapyFibromyalgiaSicca syndrome [facility]. [address] [place] [address], [id number], [place]. tel:[phone] Specialist: Sky Rodriguez MD, [address] [place] [address], [address]. tel:[phone]: Ilan Ha MD, [address] [place] [address], [address]. tel:[phone] Specialist: Efrain Yepez MD, [address] [place] [address], [address]. tel:[phone] Provider: Cele Choi, [address] [place] [address]. tel:[phone] [facility], [address] [place] [address], [id number], [place] tel:[phone] [facility] Juvenile rheumatoid arthritis of multiple sitesFibromyalgiaOther retirement (current) drug therapy Perry Yepez. [address] [place] [address], [id number], [place]. tel:[phone] Specialist: Sky Rodriguez MD, [address] [place] [address], [address]. tel:[phone]: Ilan Ha MD, [address] [place] [address], [address]. tel:[phone]: Efrain Yepez MD, [facility] [address], [place], [address]. tel:[phone] Provider: Cele Choi, [address] [place] [address]. tel:[phone] [facility], [address] [place] [address], [id number], [place] tel:[phone] [facility] Juvenile rheumatoid arthritis of multiple sitesFibromyalgiaOther retirement (current) drug therapyPain in joint of lt footPain in joint of rt foot Ninfa Arteaga. [address] [place] [address], [id number], [place]. tel:[phone] Specialist: Sky Rodriguez MD, [address] [place] [address], [address]. tel:[phone]: Ilan Ha MD, [address] [place] [address], [address]. tel:[phone]: Efrain Yepez MD, [facility] [address], [place], [address]. tel:[phone] Provider: eCle Choi, [address] [place] [address]. tel:[phone] [facility], [address] [place] [address], [id number], [place] tel:[phone] [facility] Juvenile rheumatoid arthritis of multiple sitesOther intermodal dispatcher (current) drug therapyFibromyalgiaPain in right shoulder Perry krishnan. [address] [place] [address], [id number], [place]. tel:[phone] Referring Provider: Cele Choi, [address] tel:[phone] [facility], [address] [place] [address], [id number], [place] tel:[phone] [facility] Juvenile rheumatoid arthritis of multiple sitesFibromyalgiaOther intermodal dispatcher (current) drug therapyPain in right knee Perry Yepez. [address] [place], [place], [id number], [place]. tel:[phone] Referring Provider: Cele Choi [address] [place] [address]. tel:[phone] [facility], [address] [place], [place], [id number], [place] tel:[phone] [facility] Juvenile rheumatoid arthritis of multiple sitesOther retirement (current) drug therapyMedial epicondylitis, right elbowPain in right kneePain in left kneeFibromyalgia [facility] Bela. [address] [place], [place], [id number], [place]. tel:[phone] Referring Provider: Cele Choi [address] [place] [address]. tel:[phone] [facility], [address] [place] [address], [id number], [place] tel:[phone] [facility] Juvenile rheumatoid arthritis of multiple sitesOther intermodal dispatcher (current) drug therapyPain in right kneeCough [facility] Bela. [address] [place], [place], [id number], [place]. tel:[phone] Referring Provider: Cele Choi [address] [place] [address]. tel:[phone] [facility], [address] [place], [place], [id number], [place] tel:[phone] [facility] Juvenile rheumatoid arthritis of multiple sitesFibromyalgiaOther retirement (current) drug therapy Jo-Ann Levy. [address] [place], [place], [id number], [place]. tel:[phone] Referring Provider: Luiza Henderson [facility] [address] [place], [place]. tel:[phone] [facility], [address] [place] [address], [id number], tel:[phone] [facility] Juvenile rheumatoid arthritis of multiple sitesCervicalgiaOther intermodal dispatcher (current) drug therapyFibromyalgia Perry Yepez. [address] [place] [address], [id number], [place]. tel:[phone] Referring Provider: Cele Choi [address] [facility] [address], [place]. tel:[phone] [facility], [address] [place] [address], [id number], [place] tel:[phone] [facility] Juvenile rheumatoid arthritis of multiple sitesFibromyalgiaOther retirement (current) drug therapy Maximus Cramer. [address] [place] [address], [id number], [place]. tel:[phone] Referring Provider: Cele Choi [address] [facility] [address] [place], [place]. tel:[phone] [facility], [address] [place] [address], [id number], [place] tel:[phone] [facility] Juvenile rheumatoid arthritis of multiple sitesOther retirement (current) drug therapyFibromyalgia Perry Yepez. [address] [place] [address], [id number], [place]. tel:[phone] Referring Provider: Cele Choi 3 [facility], [place], [place]. tel:[phone] [facility], [address] [place] [address], [id number], [place] tel:[phone] [facility] Other specified abnormal findings of blood chemistry Brandyn Levy. [address] [place] [address], [id number], [place]. tel:[phone] [facility], [address] [place] [address], [id number], [place] tel:[phone] [facility] Juvenile rheumatoid arthritis of multiple sitesFibromyalgiaOther retirement (current) drug therapy Jo-Ann Levy. [address] [place] [address], [id number], . tel:[phone] Referring Provider: Cele Choi [address] tel:[phone] [facility], [address] [place] [address], [id number], tel:[phone] [facility] Juvenile rheumatoid arthritis of multiple sitesFibromyalgiaLumbosacral intervertebral disc disorder Maximus Cramer. [address] [place] [address], [id number], . tel:[phone] Referring Provider: Cele Choi [address] tel:[phone] [facility], [address] [place] [address], [id number], [place] tel:[phone] [facility] Rheumatoid arthritis, unspecifiedOther retirement (current) drug therapy Morgan Ludwig. [address] [place] [address], [id number], [place]. tel:[phone] Referring Provider: Luiza Henderson [address] tel:[phone] [facility], [address] [place] [address], [id number], [place] tel:[phone] [facility] Juvenile rheumatoid arthritis of multiple sitesOther intermodal dispatcher (current) drug therapy Morgan Ludwig. [address] [place] [address], [id number], [place]. tel:[phone] Referring Provider: Luiza Henderson [facility] [address], [place], [place]. tel:[phone] [facility], [address] [place] [address], [id number], [place] tel:[phone] [facility] No Information Wangfrances Cramer. [address] [place], [place], [id number], [place]. tel:[phone] Referring Provider: Luiza Henderson [facility] [address], [place], [place]. tel:[phone] [facility], [address] [place] [address], [id number], [place] tel:[phone] [facility] No Information Yancijerzy Yepez. [address] [place] [address], [id number], [place]. tel:[phone] Referring Provider: Luiza Henderson [facility] [address] [place] [address]. tel:[phone] [facility], [address] [place] [address], [id number], [place] tel:[phone] [facility] No Information Perry Yepez. [address] [place] [address], [id number], [place]. tel:[phone] Referring Provider: Cele Choi 3 [facility] [address], [place]. tel:[phone] [facility], [address] [place] [address], [id number], [place] tel:[phone] [facility] No Information Morgan Ludwig. [address] [place], [place], [id number], [place]. tel:[phone] Referring Provider: Luiza Henderson [address] tel:[phone] [facility], [address] [place], [place], [id number], [place] tel:[phone] [facility] No Information Perry Yepez. [address] [place], [place], [id number], [place]. tel:[phone] Referring Provider: Cele Choi, 3 [facility] [address], [place], [place]. tel:[phone] Family History Family Member Type Diagnosis Age [...] virus, injectable, 3 years and older Fluvirin [id number] administered Source: Other Provider Influenza virus vaccine, Injection administered Source: Other Provider pneumo (2 yrs or older) (PPV23) administered Source: Source Unspecified Influenza virus vaccine, Injection administered Source: Source Unspecified pneumo (2 yrs or older) (PPV23) administered Source: Source Unspecified Payers Payer name Insurance type Covered republican ID Authorization(s ) Kam CALVIN [id number] Medicare MB [id number] Social History Type Description Quantity Date Captured [...] tablet take 8 Tablet by oral route e very week 20 MG - No Longer Active Instructions Date Instruction Additional Informati on Risks/benefits of medications reviewed Risks/benefits of medications discussed, handout given on [facility] Conservative medical care me asures discussed. Moderate [...] infection and to notify the treating physician Conservative medical care me asures discussed. Moderate activities regarding symptomatic joints. continue same medication plan call if symptoms worsen For sleep, the need to add a dequate relaxation, rest and exercise was discussed Labs ordered to check disease activity. Call if symptoms return Labs ordered to check blood counts, liver and kidney functions to monitor safety of medication. Daily range of motion exercises for symp tomatic joints recommended. Risks/benefits of medications reviewed Discussed / Reviewed Labs Call if symptoms return Labs ordered to check blood counts, liver and kidney functions to monitor safety of medication. Discussed / Reviewed Labs call if symptoms worsen hold medication and call if any side eff ect develops continue same medication plan Risks/benefits of medications reviewed Discussed importance of hold ing DMARDs/ biologics if patient develops an infection and to notify the treating physician Labs ordered to check disease activity. Discussed / Reviewed Labs continue same medication plan Risks/benefits of medications reviewed Labs ordered to check disease activity. Call if symptoms return Labs ordered to check blood counts, liver and kidney functions to monitor safety of medication. Weight reduction urged. Risks/benefits of medications reviewed [...] the treating physician call if symptoms worsen Stretching Labs ordered to check disease activity. Labs ordered to check blood counts, liver and kidney functions to monitor safety of medication. Daily range of motion exercises for symp tomatic joints recommended. call if symptoms worsen Avoid live vaccines Discussed importance of hold ing DMARDs/ biologics if patient develops an infection and to notify the treating physician Exercise more Risks/benefits of medications reviewed Discussed [...]
--- OUTSIDE RECORDS SUMMARY | 2020-07-11 17:54 | CCD | Continuity of Care Document ---
Author Author Elena FAYE D.O. Organization Unknown Address [facility] [address] [place] [address] Phone [phone] Care Team Providers Care Resistor Inspector Name Role Phone Ivon Faye D.O. AUTM [phone] Problems Active Problems Provider Date Hyperlipidemia Ivon Faye D.O. Onset: 2014 Essential hypertension Ivon Faye D.O. Onset: Chronic polyarticular juvenile rheumatoid arthritis Ivon Bang D.O. Onset: 08/14/2014 Generalized anxiety disorder Ivon Faye D.O. Onse t: 08/14/2014 Allergic rhinitis Ivon Faye D.O. Onset: 2014 Bariatric Surgery Status Ivon Faye D.O. Onset: 0 08/14/2014 Migraine with aura Ivon Faye D.O. Onset: 2014 Bursitis Ivon Faye D.O. Onset: 2014 Headache Ivon Faye D.O. Onset: 2014 Insomnia Ivon Faye D.O. Onset: 2014 Nonallopathic lesion of the pelvic region Ivon spain D.O. Onset: 08/14/2014 Refractory migraine with aura Ivon Faye D.O. Ons et: 08/17/2014 Acute upper respiratory infection of multiple sites Ivon Bang D.O. Onset: 09/11/2014 Nonallopathic lesion of the thoracic region Michelle CraigOPaulo Onset: 11/08/2014 Nonallopathic lesion of sacral region Michelle FowlerOPaulo Onset: 11/08/2014 Nonallopathic lesion of lumbar region Michelle FowlerOPaulo Onset: 11/08/2014 Arthralgia of the pelvic region and thigh Ivon Miles erMichelleOPaulo Onset: 11/08/2014 Nonallopathic lesion of the head region Lia Fowler.OPaulo Onset: 11/08/2014 Obstructive sleep apnea syndrome Michelle FowlerOPaulo Onset: 12/25/2014 Thromboembolism of vein Michelle FowlerO. Onset: Contact dermatitis Ivon Faye D.O. Onset: 2015 Heart sounds abnormal Ivon Faye D.O. Onset: 12/2015 Neoplasm of uncertain behavior of breast Ivon Madrigal rRegulo Onset: 08/21/2015 Obesity Ivon Faye D.O. Onset: 2015 Body mass index 30+ - obesity Ivon Faye D.O. Ons et: 08/21/2015 Low back pain Ivon Faye D.O. Onset: 2015 Pain in limb Ivon Faye D.O. Onset: 2015 Fibromyalgia Lia Fowler.O. Onset: 2015 Immunization Lia Fowler.OPaulo Onset: 2015 Psychophysiologic insomnia Lia Fowler.OPaulo Onset: 03/24/2016 Mastitis Lia Fowler.O. Onset: 2016 Cellulitis Lia Fowler.OPaulo Onset: 2016 Mixed hyperlipidemia Ivon Faye D.O. Onset: 04/10 Type 2 diabetes mellitus CHRISTEN Lynch Onset: 018 Social History Type Date Description Comments Sex Unknown ETOH Use Denies alcohol use Tobacco Use Start: Unknown Patient has never smoked Smoking Status Reviewed: 05/21/20 Patient has never smoked Allergies, Adverse Reactions, Alerts Active Allergies Reaction Severity Comments Date Bee Sting 08/17/2014 Amoxicillin Hives Severe 04/27/2018 Inactive Allergies NKDA 08/14/2014 Medications Active Medications SIG Qnty Indications Ordering Provide r Date Fluconazole 150mg Tablets 1 tablet then repeat in 3 days if symptoms not improved 2tabs B37.2 Ivon Faye D.O. 05/21/2020 Nystatin 550448Qcti/GM Cream apply to rash under the abdominal skin folds twice daily 90gm B37.2 Lia Fowler.O. 05/21/2020 Sulfamethoxazole/Trimethoprim DS 800-160mg Tablets one tablet by mouth twice daily for 10 days 20tabs N39. 0 Lia Miguel.O. 05/21/2020 Pyridium 200mg Tablets 1 by mouth three times a day for 7 days 21tabs N39.0 Ivon Faye D.O . 05/21/2020 Ozempic (0.25 Or 0.5 MG/Dose) 2mg/1.5ML Solution Pen-Inject 0.5 mg inject Subcutaneously once weekly 4.5ml E11.9 Ivon Faye D.O. 03/28/2020 Potassium Chloride ER 10Meq Tablet s ER Take 2 Tablets By Mouth Every Morning And 1 Tablet Every Night 270tabs Lia Fowler.O. 08/25/2019 Clonazepam 1mg Tablets Dispers 1 tab by mouth daily in the morning for anxiety as needed with evening dose to equal 3mg daily istop: [id number] 60tabs F41.1 Lia Fowler.O . 06/21/2019 Clonazepam 2mg Tablets 1 tab by mouth every day at bedtime istop: [id number] 30tabs F41.1 Michelle HolbrookO. 06/20/2019 Levalbuterol HCL 1.25mg/3ML Nebuli zer Inhale 1 Vial Via Nebulizer Every 4 Hours as Needed 144units Michelle MiguelOPaulo 03/16/2018 Venlafaxine HCL ER 75mg Caps ER 24 HR Take 1 Capsule By Mouth Every Day, Take With 150MG 90caps Michelle FowlerOPaulo 01/25/2018 Replacement Cpap Machine set to [id number] with heated humidifier and heated tubing 1units G47.33 Michelle FowlerOPaulo 12/14 Atorvastatin Calcium 40mg Tablets take 1 tablet by mouth once every evening 90tabs E78.2 Michelle VivasOPaulo 04/10/2017 Hydrochlorothiazide 25mg Tablets Take 1 Tablet By Mouth Once Daily. 90tabs Michelle FowlerOPaulo 06/25/2016 Losartan Potassium 100mg Tablets Take 1 Tablet By Mouth Once Daily 90tabs I10 Michelle FowlerOPaulo 07/09/2015 Triamcinolone Acetonide 0.1% Cream apply externally to affected skin on lower leg twice a day as needed for flare ups 80gm L30.9 Michelle FowlerOPaulo 07/09/2015 C-Pap Mask And Supplies icd-9 code: 327.23 Dispense 1 mask and necessary supplies for 1 year supply Prognosis: Fair Duration: 99 1units G47. 33 Michelle FowlerOPaulo 12/25/2014 Epipen 2-Christian 0.3mg/0 .3ML Solution Auto-Inject inject once in anterolateral thigh may r epeat after 5-15 min if symptoms persist 2units Z91.030 Michelle FowlerOPaulo 08/17 Multivitamins Capsules 1 by mouth every day 30caps Michelle FowlerOPaulo 08/14 Spironolactone 25mg Tablets Take 1 Tablet By Mouth Every Day 90tabs Michelle FowlerOPaulo Venlafaxine HCL ER 150mg Caps ER 2 4HR take 1 capsule by mouth every day 90caps Michelle AndinoO. 08/14/2014 Cholestyramine 4gm Packet 1 packet twice a day Unknown Diphenoxylate-Atropine 2.5-0.025mg Tablets take one tablets by mouth every 6 hours as needed for diarrhea istop#: [id number] Unknown Hyoscyamine Sulfate 0.125mg Tablet s two tabs four times a day as needed for pain Unknow n Dicyclomine HCL 10mg Capsules 1 tablets every three times a day as needed for pain Unkno wn Amitriptyline HCL 50mg Tablets 1 by mouth every day at bedtime Unknown Promethazine HCL 25mg Tablets 1 tab by mouth every 6 hours nausea Unknown Oxycodone HCL 5mg Tablets 1-2 tablets by mouth every 4 hours as needed for up to 3 days U nknown Cyclobenzaprine HCL 10mg Tablets 1 tablets by mouth 3 times a day 540tabs Lia Fowler.O . Acetaminophen 325mg Tablets take 2 tabs by mouth every 6 hours as needed for pain Unknown Metoprolol Tartrate 25mg Tablets 1 tab by mouth twice a day 180tabs Lia Fowler.O. Actemra 162mg/0.9ML Soln Prefill S yringe inject 0.9 ml SQ weekly Unknown 00 Cevimeline HCL 30mg Capsules 1 by mouth 3 times a day Unknown Leucovorin Calcium 5mg Tablets 1 tab every Z01.818 Unknown Lacri Lube OU QHS Unknown Restasis 0.05% Emulsion Unknown Fish Oil 1000mg Capsules 1 by mouth twice a day Unknown Methotrexate 2.5mg Tablets take 8 tabs 1x a week Unknown Dorsal Column Stimulator Unknown History Medications Prednisone 10mg Tablets 4 tabs daily for 5 days then 3 tabs for 3 days then 2 tabs for 2 days then 1 tab daily for 2 days, then go back to tapered dose rheumatolog qs J20.9 Ivon Carrasco D.O. 01/26/2020 - 03/28/2020 Cefuroxime Axetil 500mg Tablets 1 by mouth twice a day x 10 days 20tabs J20.9 Lia Fowler.O. 01/26/2020 - 03/28/2020 Medications Administered in Office Medication SIG Qnty Indications Ordering Provider Date Injection Ceftriaxone Sodium Per 250 MG (Rocephin) Injection Lia Vivas.OPaulo 05/23/2020 Injection Ceftriaxone Sodium Per 250 MG (Rocephin) Injection Lia Vivas.O. 05/21/2020 Immunization Administration Single Or Co mbination Injection CHRISTEN Lynch Immunization Administration Single Or Co mbination Injection Nurse 03/09/2018 Immunization Administration Single Or Co mbination Injection Lia Fowler .O. 04/10/2017 Immunization Administration Single Or Co mbination Injection Lia Fowler .O. 03/24/2016 Injection Ketorolac Tromethamine Per 15 MG (Toradol) Injection CHRISTEN Rizo 05/08/2015 Therapeutic, Prophylactic Or Diagnostic Injection Subq/Im Injection Lia Vivas.O. 05/08/2015 Immunizations CPT Code Status Date Vaccine Lot # [id number] Given 06/20/2019 Pneumococcal Con jugate Vaccine 13 Valent For Intramuscular Use [id number] U-Flu Given 03/28/2019 Influenza,Unspecified [id number] Given 09/21/2018 Tetanus, Diphthe steven Toxoids/Acellular Pertussis Vaccine 7 Or > [id number] 86644 Given 03/09/2018 Influenza Vaccin e Quadrivalent Preser/Antibiotic Free Im Use [id number] Given 04/10/2017 Influenza Vaccin e Quadrivalent Preser/Antibiotic Free Im Use [id number] 18967 Given 03/24/2016 Influenza Virus Vaccine, Quadrivalent, Split, Preservative Free [id number] Vital Signs Date Vital Result Comment 05/23/2020 3:29pm BP Systolic 140 mmHg BP Diastolic 84 mmHg Height 64 inches 5'4" Weight 189.00 lb BMI (Body Mass Index) 32.4 kg/m2 Heart Rate 121 /min Respiratory Rate 18 /min Body Temperature 99.4 F O2 % BldC Oximetry 97 % Orange Body Weight 120 lb 05/21/2020 3:58pm BP Systolic 132 mmHg BP Diastolic 88 mmHg Height 64 inches 5'4" Heart Rate 112 /min Respiratory Rate 20 /min Body Temperature 98.6 F O2 % BldC Oximetry 99 % Orange Body Weight 120 lb Results Test Acquired Date Facility Test Result H/L Range Note Inhouse Ua 05/21/2020 Inhouse Inhouse Leukocytes +++ Inhouse Nitrite + Inhouse Urobilinogen ++ Inhouse Protein ++ Inhouse PH 7.0 Inhouse Hemoglobin large Inhouse Specific [place] 1.007 Inhouse Ketones +++ Inhouse Bilirubin + Inhouse Glucose <pending> Laboratory test finding 05/21/[address] [address] [phone] Urine Culture FULL REPORT IN L <SEE NOTE> Normal 1 Comprehensive Metabolic Profil 02/08/[address] [address] [phone] Glucose, Fasting 109 mg/dL High 70-100 Blood Urea Nitrogen 21 mg/dL High 7-18 Creatinine For GFR 0.78 mg/dL Normal 0.55-1.30 Glomerular Filtration Rate > 60.0 Normal >51 2 Sodium Level 139 mEq/L Normal 136-145 Potassium Serum 3.3 mEq/L Low 3.5-5.1 Chloride Level 103 mEq/L Normal 98-107 Carbon Dioxide Level 31 mEq/L Normal 21-32 Anion Gap 5 mEq/L Low 8-16 Calcium Level 8.9 mg/dL Normal 8.5-10.1 Ast/Sgot 19 U/L Normal 7-37 Alt/SGPT 54 U/L Normal 12-78 Alkaline Phosphatase 50 U/L Normal 45-117 Bilirubin,Total 1.0 mg/dL Normal 0.2-1.0 Total Protein 6.6 GM/DL Normal 6.4-8.2 Albumin 4.2 GM/DL Normal 3.2-5.2 Albumin/Globulin Ratio 1.8 Normal 1.2-2.2 Hemoglobin A1c 02/08/[address] [address] [phone] Hemoglobin A1c 6.7 % Normal 3 Estimated Average Glucose 146 mg/dL High 60-110 Lipid Panel 02/08/[address] [id number] [phone] Triglycerides Level 118 mg/dL Normal <150 Cholesterol Level 151 mg/dL Normal <200 HDL Cholesterol 76 mg/dL Normal >40 LDL Cholesterol 51 mg/dL Normal <100 Non-HDL-C 75 mg/dL Normal Cholesterol Risk Ratio 1.986 Normal <5 CBC With Differential 02/08/[address] [id number] [phone] White Blood Count 9.6 10 Normal 4.0-10.0 Red Blood Count 4.11 10 Normal 4.00-5.40 Hemoglobin 13.4 g/dL Normal 12.0-15.5 Hematocrit 39.6 % Normal 36.0-47.0 Mean Corpuscular Volume 96.4 fl High 80.0-96.0 Mean Corpuscular Hemoglobin 32.6 pg Normal 27.0-33.0 Mean Corpuscular HGB Conc 33.8 g/dL Normal 32.0-36.5 Red Cell Distribution Width 13.0 % Normal 11.5-14.5 Platelet Count, Automated 216 10 Normal 150-450 Neutrophils % 54.6 % Normal 36.0-66.0 Lymph % 34.8 % Normal 24.0-44.0 Scott % 7.0 % High 0.0-5.0 Eos % 1.8 % Normal 0.0-3.0 Baso % 1.0 % Normal 0.0-1.0 Immature Granulocyte % 0.8 % Normal 0-3.0 Nucleated Red Blood Cell % 0.0 % Normal 0-0 Neutrophils # 5.2 10 Normal 1.5-8.5 Lymph # 3.3 10 Normal 1.5-5.0 Scott # 0.7 10 Normal 0.0-0.8 Eos # 0.2 10 Normal 0.0-0.5 Baso # 0.1 10 Normal 0.0-0.2 1 FULL REPORT IN LAB NOTES (eC W and [facility]). ORGANISM 1: ESCHERICHIA COLI COLONY COUNT >100,000 ORGANISM 1: ESCHERICHIA COLI ESCHERICHIA COLI: REACTION TRIMETHOPRIM/SULFAMETHOXAZOLE IV 160mg TMP & 800mg SMXq6h <=20 S TRIMETHOPRIM/SULFAMETHOXAZOLE PO Bactrim DS Bid <=20 S AMPICILLIN IV 500mg q6h <=2 S AMPICILLIN PO 500mg q6h fasting <=2 S GENTAMICIN IV 80mg q8h <=1 S NITROFURANTOIN PO 100mg BID <=16 S CEFAZOLIN IV 1gm q8h <=4 S LEVOFLOXACIN IV 500mg qd <=0.12 S LEVOFLOXACIN PO 250mg qd <=0.12 S LEVOFLOXACIN PO 500mg qd <=0.12 S TOBRAMYCIN IV 80mg q8h <=1 S CEFTRIAXONE IV 1gm q24h <=1 S CEFTAZIDIME IV 1gm q8h <=1 S AMPICILLIN/SULBACTAM IV 1.5g q6h <=2 S PIPERACILLIN/TAZOBACTAM IV 2.25 gm q6h <=4 S AZTREONAM IV 1gm q8h <=1 S ERTAPENEM IV 1gm qd <=0.5 S MEROPENEM IV 1 gm q8h <=0.25 S MEROPENEM IV 500 mg q8h <=0.25 S TIGECYCLINE IV 50mg q12h <=0.5 S CEFEPIME IV 1 gm q12h <=1 S CEFEPIME IV 2 gm q12h <=1 S EXTD BRD SPCTRM BETA LACTAMASE IV NEGATIVE FOR ESBL 2 Units are mL/min/1.73 m2 Chronic Kidney Disease Staging per NKF: Stage I & II GFR >=60 Normal to Mildly Decreased Stage III GFR 30-59 Moderately Decreased Stage IV GFR 15-29 Severely Decreased Stage V GFR <15 Very Little GFR Left ESRD GFR <15 on [employer]RILLING [employer] OPERATOR 3 REFERENCE RANGES: <=5.6% NORMAL 5.7-6.4% SUGGESTS IMPAIRED GLUCOSE META BOLISM/PREDIABETIC >= 6.5% ABNORMAL Procedures Description No Information Available Medical Devices Description No Information Available Encounters Type Date Location Provider Dx Diagnosis Office Visit 05/23/2020 3:30p [facility] Manpreet Faye D.O. N39.0 Urinary tract infection, sit e not specified R07.89 Other chest pain R50.9 Fever, unspecified Office Visit 05/21/2020 3:40p [facility] Manpreet Faye D.O. N39.0 Urinary tract infection, sit e not specified M08.00 Unsp juvenile rheumatoid art hritis of unspecified site B37.2 Candidiasis of skin and nail Office Visit 03/28/2020 11:20a Family Medicine [facility] Ivon Faye, D.O. I10 Essential (primary) hyperten janina E11.9 Type 2 diabetes mellitus wit hout complications G47.33 Obstructive sleep apnea (filiberto lt) (pediatric) F41.1 Generalized anxiety disorder E78.2 Mixed hyperlipidemia K58.0 Irritable bowel syndrome wit h diarrhea M08.00 Unsp juvenile rheumatoid art hritis of unspecified site M79.7 Fibromyalgia Z88.1 Allergy status to other anti biotic agents Z79.899 Other terminal system operator (current) dr nahs therapy Z79.84 director long term care (current) use of o ral hypoglycemic drugs Z79.52 director long term care (current) use of s ystemic steroids Office Visit 01/26/2020 2:30p Family [facility] Ivon Faye D.O. J20.9 Acute bronchitis, unspecifie d Office Visit 12/19/2019 10:40a Family [facility] CHRISTEN Lynch Z00.00 Encntr for general adult med ical exam w/o abnormal findings Z12.31 Encntr screen mammogram for malignant neoplasm of breast Assessments Date Code Description Provider 05/23/2020 N39.0 Urinary tract infection, site no t specified Ivon Phelps, D.O. 05/23/2020 R07.89 Other chest pain Ivon blackmon D.O. 05/23/2020 R50.9 Fever, unspecified Ivon Grimes, D.O. 05/21/2020 N39.0 Urinary tract infection, site no t specified Ivon Fairchild- Lenin, D.O. 05/21/2020 M08.00 Unspecified juvenile rheumatoid arthritis of unspecified sit Ivon Faye, D.O. 05/21/2020 B37.2 Candidiasis of skin and nail Molly Faye, D.O. 03/28/2020 I10 Essential (primary) hypertension Ivon Faye, D.O. 03/28/2020 E11.9 Type 2 diabetes mellitus without complications Ivon Phelps D.O. 03/28/2020 G47.33 Obstructive sleep apnea (adult) (pediatric) Ivon Phelps D.O. 03/28/2020 F41.1 Generalized anxiety disorder Molly jasmin Yunier D.O. 03/28/2020 E78.2 Mixed hyperlipidemia Ivon Choi D.O. 03/28/2020 K58.0 Irritable bowel syndrome with di arrhea Ivon Faye D.O. 03/28/2020 M08.00 Unspecified juvenile rheumatoid arthritis of unspecified sit Ivon Faye D.O. 03/28/2020 M79.7 Fibromyalgia Ivon ortiz D.O. 03/28/2020 Z88.1 Allergy status to other antibiot ic agents Ivon Faye D.O. 03/28/2020 Z79.899 Other terminal system operator (current) drug t herapy Lia Fowler.O. 03/28/2020 Z79.84 snf (current) use of oral hypoglycemic drugs Ivon Faye D.O. 03/28/2020 Z79.52 snf (current) use of syste [place] steroids Ivon Phelps D.O. 01/26/2020 J20.9 Acute bronchitis, unspecified Hunter Faye D.O. 12/19/2019 Z00.00 Encounter for genera l adult medical examination without abnormal findings CHRISTEN Lynch 12/19/2019 Z12.31 Encounter for screen ing mammogram for malignant neoplasm of breast CHRISTEN Lynch Plan of Treatment Future Appointment(s):* 06/28/2020 11:00 am - CHRISTEN Lynch at [facility] Functional Status Description No Information Available Mental Status Description No Information Available Referrals Description No Information Available
--- OUTSIDE RECORDS SUMMARY | 2020-07-11 17:54 | CCD | Continuity of Care Document ---
Author Author [facility] Organization [facility] Address Unknown Phone Unavailable Care Team Providers Care Human Resources Generalist Name Role Phone Enrrique Jama NP Unavailable [...] OTC SUPPLEMENTS mvi, D3 400 units bid, [id number] units bid - Active methotrexate sodium 2.5 mg tablet take 8 Tablet by oral route e very week 20 MG - No Longer Active cevimeline 30 mg capsule TAKE 1 CAPSULE BY MOUTH THREE TIMES A D AY - No Longer Active methotrexate sodium 2.5 mg tablet take 8 Tablet by oral route e very week 20 MG - No Longer Active Problems Condition Type Effective Dates (start - stop) Clinical S tatus Comments Unspecified juvenile rheumatoid arthritis, multiple si zoie Diagnosis interpretation (observable entity) Other assisted (current) drug therapy Diagnosis inter pretation (observable entity) Pain in joint Diagnosis interpretation (observable entity) Unspecified juvenile rheumatoid arthritis, multiple si zoie Diagnosis interpretation (observable entity) Other administrative services assistant (current) drug therapy Diagnosis inter pretation (observable entity) Pain in joint Diagnosis interpretation (observable entity) Unspecified juvenile rheumatoid arthritis, multiple si zoie Diagnosis interpretation (observable entity) Other assisted (current) drug therapy Diagnosis inter pretation (observable entity) Sicca syndrome, unspecified Diagnosis interpretation (observable en tity) Unspecified juvenile rheumatoid arthritis, multiple si zoie Diagnosis interpretation (observable entity) Sicca syndrome, unspecified Diagnosis interpretation (observable en tity) Other assisted (current) drug therapy Diagnosis inter pretation (observable entity) Diarrhea, unspecified Diagnosis interpretation (observable entity) Unspecified juvenile rheumatoid arthritis, multiple si ozie Diagnosis interpretation (observable entity) Sicca syndrome, unspecified Diagnosis interpretation (observable en tity) Fibromyalgia Diagnosis interpretation (observable entity) Osteoarthritis Diagnosis interpretation (observable entity) Other assisted (current) drug therapy Diagnosis inter pretation (observable entity) Candidal stomatitis Diagnosis interpretation (observable entity) Sicca syndrome, unspecified Diagnosis interpretation (observable en tity) Unspecified juvenile rheumatoid arthritis, multiple si zoie Diagnosis interpretation (observable entity) Fibromyalgia Diagnosis interpretation (observable entity) Unspecified juvenile rheumatoid arthritis, multiple si zoie Diagnosis interpretation (observable entity) Other administrative services assistant (current) drug therapy Diagnosis inter pretation (observable entity) Unspecified juvenile rheumatoid arthritis, multiple si zoie Diagnosis interpretation (observable entity) Sicca syndrome, unspecified Diagnosis interpretation (observable en tity) Fibromyalgia Diagnosis interpretation (observable entity) Other assisted (current) drug therapy Diagnosis inter pretation (observable entity) Diarrhea Diagnosis interpretation (observable entity) Unspecified juvenile rheumatoid arthritis, multiple si zoie Diagnosis interpretation (observable entity) Sicca syndrome, unspecified Diagnosis interpretation (observable en tity) Fibromyalgia Diagnosis interpretation (observable entity) Other administrative services assistant (current) drug therapy Diagnosis inter pretation (observable entity) Unspecified juvenile rheumatoid arthritis, multiple si zoie Diagnosis interpretation (observable entity) Fibromyalgia Diagnosis interpretation (observable entity) Other assisted (current) drug therapy Diagnosis inter pretation (observable entity) Sicca syndrome, unspecified Diagnosis interpretation (observable en tity) Unspecified juvenile rheumatoid arthritis, multiple si zoie Diagnosis interpretation (observable entity) Fibromyalgia Diagnosis interpretation (observable entity) Other administrative services assistant (current) drug therapy Diagnosis inter pretation (observable entity) Acute sinusitis Diagnosis interpretation (observable entity) Sicca syndrome Diagnosis interpretation (observable entity) Juvenile rheumatoid arthritis of multiple sites Diagno sis interpretation (observable entity) Other administrative services assistant (current) drug therapy Diagnosis inter pretation (observable entity) Fibromyalgia Diagnosis interpretation (observable entity) Sicca syndrome Diagnosis interpretation (observable entity) Juvenile rheumatoid arthritis of multiple sites Diagno sis interpretation (observable entity) Fibromyalgia Diagnosis interpretation (observable entity) Other assisted (current) drug therapy Diagnosis inter pretation (observable entity) Juvenile rheumatoid arthritis of multiple sites Diagno sis interpretation (observable entity) Fibromyalgia Diagnosis interpretation (observable entity) Other assisted (current) drug therapy Diagnosis inter pretation (observable entity) Pain in joint of lt foot Diagnosis interpretation (observable entit y) Pain in joint of rt foot Diagnosis interpretation (observable entit y) Juvenile rheumatoid arthritis of multiple sites Diagno sis interpretation (observable entity) Other assisted (current) drug therapy Diagnosis inter pretation (observable entity) Fibromyalgia Diagnosis interpretation (observable entity) Pain in right shoulder Diagnosis interpretation (observable entity) Juvenile rheumatoid arthritis of multiple sites Diagno sis interpretation (observable entity) Fibromyalgia Diagnosis interpretation (observable entity) Other administrative services assistant (current) drug therapy Diagnosis inter pretation (observable entity) Pain in right knee Diagnosis interpretation (observable entity) Juvenile rheumatoid arthritis of multiple sites Diagno sis interpretation (observable entity) Other administrative services assistant (current) drug therapy Diagnosis inter pretation (observable entity) Medial epicondylitis, right elbow Diagnosis interpretation ( observable entity) Pain in right knee Diagnosis interpretation (observable entity) Pain in left knee Diagnosis interpretation (observable entity) Fibromyalgia Diagnosis interpretation (observable entity) Juvenile rheumatoid arthritis of multiple sites Diagno sis interpretation (observable entity) Other assisted (current) drug therapy Diagnosis inter pretation (observable entity) Pain in right knee Diagnosis interpretation (observable entity) Cough Diagnosis interpretation (observable entity) Juvenile rheumatoid arthritis of multiple sites Diagno sis interpretation (observable entity) Fibromyalgia Diagnosis interpretation (observable entity) Other administrative services assistant (current) drug therapy Diagnosis inter pretation (observable entity) Juvenile rheumatoid arthritis of multiple sites Diagno sis interpretation (observable entity) Cervicalgia Diagnosis interpretation (observable entity) Other assisted (current) drug therapy Diagnosis inter pretation (observable entity) Fibromyalgia Diagnosis interpretation (observable entity) Juvenile rheumatoid arthritis of multiple sites Diagno sis interpretation (observable entity) Fibromyalgia Diagnosis interpretation (observable entity) Other assisted (current) drug therapy Diagnosis inter pretation (observable entity) Juvenile rheumatoid arthritis of multiple sites Diagno sis interpretation (observable entity) Other administrative services assistant (current) drug therapy Diagnosis inter pretation (observable entity) Fibromyalgia Diagnosis interpretation (observable entity) Other specified abnormal findings of blood chemistry D iagnosis interpretation (observable entity) Juvenile rheumatoid arthritis of multiple sites Diagno sis interpretation (observable entity) Fibromyalgia Diagnosis interpretation (observable entity) Other administrative services assistant (current) drug therapy Diagnosis inter pretation (observable entity) Juvenile rheumatoid arthritis of multiple sites Diagno sis interpretation (observable entity) Fibromyalgia Diagnosis interpretation (observable entity) Lumbosacral intervertebral disc disorder Diagnosis int erpretation (observable entity) Rheumatoid arthritis, unspecified Diagnosis interpretation ( observable entity) Other administrative services assistant (current) drug therapy Diagnosis inter pretation (observable entity) Juvenile rheumatoid arthritis of multiple sites Diagno sis interpretation (observable entity) Other administrative services assistant (current) drug therapy Diagnosis inter pretation (observable entity) High risk drug monitoring status Problem (finding) - A ctive Mapped from [facility] Chronic Conditions table on 10/09/2014 by the ICD9 to [employer]OM[employer] Bulk Mapping Utility. The mapped diagnosis code was longterm use of medication, V58.69, added by Lucho Amador MD, with responsible provider Lucho Amador MD. Onset date 03/26/2012; last addressed on 04/04/2014. Juvenile rheumatoid arthritis Problem (finding) - Acti ve Mapped from [facility] Chronic Conditions table on 09/12/2014 [...] s Date Provider Providers Copied on Encounter [facility], [address] [place], [place], [id number], [place] tel:[phone] [facility] No Information Wiley Osuna. [address] [place] [address], [id number], [place]. tel:[phone] [facility], [address] [place] [address], [id number], [place] tel:[phone] [facility] No Information Perry Yepez. [address] [place] [address], [id number], [place]. tel:[phone] [facility], [address] [place] [address], [id number], [place] tel:[phone] [facility] No Information Wiley Osuna. [address] [place] [address], [id number], [place]. tel:[phone] [facility], [address] [place] [address], [id number], [place] tel:[phone] [facility] Unspecified juvenile rheumatoid arthritis, multiple sitesOther administrative services assistant (current) drug therapyPain in joint Wiley Osuna. [address] [place] [address], [id number], [place]. tel:[phone] Referring Provider: Cele Choi, [address] [place] [address]. tel:[phone] [facility], [address] [place] [address], [id number], [place] tel:[phone] [facility] No Information Perry Yepez. [address] [place] [address], [id number], [place]. tel:[phone] [facility], [address] [place] [address], [id number], [place] tel:[phone] [facility] Unspecified juvenile rheumatoid arthritis, multiple sitesOther administrative services assistant (current) drug therapyPain in joint Wiley Osuna. [address] [place] [address], [id number], [place]. tel:[phone] Specialist: Sky Rodriguez MD, [address] [place] [address], [address]. tel:[phone]: Ilan Ha MD, [address] [place] [address], [address]. tel:[phone] Provider: Cele Choi, [address] [place] [address]. tel:[phone] [facility], [address] [place] [address], [id number], [place] tel:[phone] [facility] Unspecified juvenile rheumatoid arthritis, multiple sitesOther administrative services assistant (current) drug therapySicca syndrome, unspecified Tykristin Enrrique. [address] [place] [address], [id number], [place]. tel:[phone] Specialist: Sky Rodriguez MD, [address] [place] [address], [address]. tel:[phone]: Ilan Ha MD, [address] [place] [address], [address]. tel:[phone] Provider: Cele Choi, [address] [place] [address]. tel:[phone] [facility], [address] [place] [address], [id number], [place] tel:[phone] [facility] Unspecified juvenile rheumatoid arthritis, multiple sitesSicca syndrome, unspecifiedOther administrative services assistant (current) drug therapyDiarrhea, unspecified Perry Yepez. [address] [place] [address], [id number], [place]. tel:[phone] Specialist: Sky Rodriguez MD, [address] [place] [address], [address]. tel:[phone]: Ilan Ha MD, [address] [place] [address], [address]. tel:[phone] Provider: Cele Choi, [address] tel:[phone] [facility], [address] [place] [address], [id number], [place] tel:[phone] [facility] Unspecified juvenile rheumatoid arthritis, multiple sitesSicca syndrome, unspecifiedFibromyalgiaOsteoarthritisOther administrative services assistant (current) drug therapy Wiley Osuna. [address] [place] [address], [id number], [place]. tel:[phone] Specialist: Sky Rodriguez MD, [address] [place] [address], [address]. tel:[phone]: Ilan Ha MD, [address] [place] [address], [address]. tel:[phone]: Efrain Yepez MD, [address] [place], [address]. tel:[phone] Provider: Cele Choi, [address] tel:[phone] [facility], [address] [place] [address], [id number], [place] tel:[phone] [facility] Candidal stomatitisSicca syndrome, unspecifiedUnspecified juvenile rheumatoid arthritis, multiple sitesFibromyalgia Wiley Osuna. [address] [place] [address], [id number], [place]. tel:[phone] Specialist: Sky Rodriguez MD, [address] [place] [address], [address]. tel:[phone]: Ilan Ha MD, [address] [place] [address], [address]. tel:[phone]: Efrain Yepez MD, [address] [place], [address]. tel:[phone] Provider: Cele Choi, [address] tel:[phone] [facility], [address] [place] [address], [id number], [place] tel:[phone] [facility] Unspecified juvenile rheumatoid arthritis, multiple sitesOther assisted (current) drug therapy Wiley Osuna. [address] [place] [address], [id number], [place]. tel:[phone] Specialist: Sky Rodriguez MD, [address], [place], [address]. tel:[phone]: Ilan Ha MD, [address] [place] [address], [address]. tel:[phone]: Efrain Yepez MD, [address] [place], [address]. tel:[phone] Provider: Cele Choi, [address] [place] [address]. tel:[phone] [facility], [address] [place] [address], [id number], [place] tel:[phone] [facility] Unspecified juvenile rheumatoid arthritis, multiple sitesSicca syndrome, unspecifiedFibromyalgiaOther administrative services assistant (current) drug therapyDiarrhea Perry eYpez. [address] [place] [address], [id number], [place]. tel:[phone] Specialist: Sky Rodriguez MD, [address], [place], [address]. tel:[phone]: Ilan Ha MD, [address] [place] [address], [address]. tel:[phone]: Efrain Yepez MD, [address] [place], [address]. tel:[phone] Provider: Cele Choi, [address] [place] [address]. tel:[phone] [facility], [address] [place] [address], [id number], [place] tel:[phone] [facility] Unspecified juvenile rheumatoid arthritis, multiple sitesSicca syndrome, unspecifiedFibromyalgiaOther assisted (current) drug therapy Wiley Osuna. [address] [place] [address], [id number], [place]. tel:[phone] Specialist: Sky Rodriguez MD, [address] [place] [address], [address]. tel:[phone]: Ilan Ha MD, [address] [place] [address], [address]. tel:[phone]: Efrain Yepez MD, [address] [place], [address]. tel:[phone] Provider: Cele Choi, [address] [place] [address]. tel:[phone] [facility], [address] [place] [address], [id number], [place] tel:[phone] [facility] Unspecified juvenile rheumatoid arthritis, multiple sitesFibromyalgiaOther assisted (current) drug therapySicca syndrome, unspecified Luzma Osuna. [address] [place] [address], [id number], [place]. tel:[phone] Specialist: Sky Rodriguez MD, [address] [place] [address], [address]. tel:[phone]: Ilan Ha MD, [address] [place] [address], [address]. tel:[phone]: Efrain Yepez MD, [address] [place], [address]. tel:[phone] Provider: Cele Choi, [address] [place] [address]. tel:[phone] [facility], [address] [place] [address], [id number], [place] tel:[phone] [facility] Unspecified juvenile rheumatoid arthritis, multiple sitesFibromyalgiaOther administrative services assistant (current) drug therapyAcute sinusitisSicca syndrome Sagar Yepez. [address] [place] [address], [id number], [place]. tel:[phone] Specialist: Sky Rodriguez MD, [address] [place] [address], [address]. tel:[phone]: Ilan Ha MD, [address] [place] [address], [address]. tel:[phone]: Efrain Yepez MD, [facility] [address], [place], [address]. tel:[phone] Provider: Cele Choi, [address] [place] [address]. tel:[phone] [facility], [address] [place] [address], [id number], [place] tel:[phone] [facility] Juvenile rheumatoid arthritis of multiple sitesOther administrative services assistant (current) drug therapyFibromyalgiaSicca syndrome [facility]. [address] [place] [address], [id number], [place]. tel:[phone] Specialist: Sky Rodriguez MD, [address] [place] [address], [address]. tel:[phone]: Ilan Ha MD, [address] [place] [address], [address]. tel:[phone] Specialist: Efrain Yepez MD, [facility] [address], [place], [address]. tel:[phone] Provider: Cele Choi, [address] [place] [address]. tel:[phone] [facility], [address] [place] [address], [id number], [place] tel:[phone] [facility] Juvenile rheumatoid arthritis of multiple sitesFibromyalgiaOther assisted (current) drug therapy Perry Yepez. [address] [place] [address], [id number], [place]. tel:[phone] Specialist: Sky Rodriguez MD, [address] [place] [address], [address]. tel:[phone]: Ilan Ha MD, [address] [place] [address], [address]. tel:[phone]: Efrain Yepez MD, [place], [address]. tel:[phone] Provider: Cele Choi, [address] [place] [address]. tel:[phone] [facility], [address] [place] [address], [id number], [place] tel:[phone] [facility] Juvenile rheumatoid arthritis of multiple sitesFibromyalgiaOther administrative services assistant (current) drug therapyPain in joint of lt footPain in joint of rt foot Ninfa Arteaga. [address] [place] [address], [id number], [place]. tel:[phone] Specialist: Sky Rodriguez MD, [address] [place] [address], [address]. tel:[phone]: Ilan Ha MD, [address] [place] [address], [address]. tel:[phone]: Efrain Yepez MD, [facility] [address], [address]. tel:[phone] Provider: Cele Choi, [address] [place] [address]. tel:[phone] [facility], [address] [place] [address], [id number], [place] tel:[phone] [facility] Juvenile rheumatoid arthritis of multiple sitesOther assisted (current) drug therapyFibromyalgiaPain in right shoulder Perry krishnan. [address] [place], [place], [id number], [place]. tel:[phone] Referring Provider: Cele Choi, [address] tel:[phone] [facility], [address] [place] [address], [id number], [place] tel:[phone] [facility] Juvenile rheumatoid arthritis of multiple sitesFibromyalgiaOther administrative services assistant (current) drug therapyPain in right knee Perry Yepez. [address] [place], [place], [id number], [place]. tel:[phone] Referring Provider: Cele Choi, [address] tel:[phone] [facility], [address] [place] [address], [id number], [place] tel:[phone] [facility] Juvenile rheumatoid arthritis of multiple sitesOther administrative services assistant (current) drug therapyMedial epicondylitis, right elbowPain in right kneePain in left kneeFibromyalgia [facility] Bel[facility]. [address] [place], [place], [id number], [place]. tel:[phone] Referring Provider: Cele Choi, [address] [place] [address]. tel:[phone] [facility], [address] [place] [address], [id number], [place] tel:[phone] [facility] Juvenile rheumatoid arthritis of multiple sitesOther administrative services assistant (current) drug therapyPain in right kneeCough [facility]. [address] [place], [place], [id number], [place]. tel:[phone] Referring Provider: Cele Choi, [address] tel:[phone] [facility], [address] [place] [address], [id number], [place] tel:[phone] [facility] Juvenile rheumatoid arthritis of multiple sitesFibromyalgiaOther administrative services assistant (current) drug therapy TylerPraveenaCem Levy. [address] [place], [place], [id number], [place]. tel:[phone] Referring Provider: Cele Choi [address] tel:[phone] [facility], [address] [place] [address], [id number], [place] tel:[phone] [facility] Juvenile rheumatoid arthritis of multiple sitesCervicalgiaOther administrative services assistant (current) drug therapyFibromyalgia Perry Yepez. [address] [place], [place], [id number], [place]. tel:[phone] Referring Provider: Cele Choi [address] tel:[phone] [facility], [address] [place] [address], [id number], [place] tel:[phone] [facility] Juvenile rheumatoid arthritis of multiple sitesFibromyalgiaOther assisted (current) drug therapy Maximus Cramer. [address] [place], [place], [id number], [place]. tel:[phone] Referring Provider: Cele Choi [address] tel:[phone] [facility], [address] [place] [address], [id number], [place] tel:[phone] [facility] Juvenile rheumatoid arthritis of multiple sitesOther assisted (current) drug therapyFibromyalgia Perry Yepez. [address] [place], [place], [id number], [place]. tel:[phone] Referring Provider: Cele Choi [address] [place] [address]. tel:[phone] [facility], [address] [place] [address], [id number], [place] tel:[phone] [facility] Other specified abnormal findings of blood chemistry Brandyn Levy. [address] [place] [address], [id number], [place]. tel:[phone] [facility], [address] [place] [address], [id number], [place] tel:[phone] [facility] Juvenile rheumatoid arthritis of multiple sitesFibromyalgiaOther administrative services assistant (current) drug therapy Jo-Ann Levy. [address] [place] [address], [id number], [place]. tel:[phone] Referring Provider: Luiza Henderson [address] tel:[phone] [facility], [address] [place] [address], [id number], [place] tel:[phone] [facility]th[facility] Juvenile rheumatoid arthritis of multiple sitesFibromyalgiaLumbosacral intervertebral disc disorder Maya Bela. [address] [place] [address], [id number], [place]. tel:[phone] Referring Provider: Cele Choi [address] tel:[phone] Arthritis [facility], [address] [place] [address], [id number], [place] tel:[phone] [facility]th[facility] Rheumatoid arthritis, unspecifiedOther assisted (current) drug therapy Morgan Ludwig. [address] [place] [address], [id number], [place]. tel:[phone] Referring Provider: Luiza Henderson [facility] [address], [place], [place]. tel:[phone] [facility], [address] [place] [address], [id number], [place] tel:[phone] Arthritis [facility] Juvenile rheumatoid arthritis of multiple sitesOther administrative services assistant (current) drug therapy Morgan Ludwig. [address] [place] [address], [id number], [place]. tel:[phone] Referring Provider: Cele Choi 3 [facility] [address], [place], [place]. tel:[phone] [facility], [address] [place] [address], [id number], [place] tel:[phone] [facility] No Information Maximus Bela. [address] [place] [address], [id number], [place]. tel:[phone] Referring Provider: Cele Choi 3 [facility] [address] [place] [address]. tel:[phone] Arthritis [facility], [address] [place] [address], [id number], [place] tel:[phone] [facility] No Information Perry Yepez. [address] [place], [place], [id number], [place]. tel:[phone] Referring Provider: Cele Choi 3 [facility] [address], [place], [place]. tel:[phone] [facility], [address] [place] [address], [id number], [place] tel:[phone] [facility]th[facility] No Information Perry Yepez. [address] [place], [place], [id number], [place]. tel:[phone] Referring Provider: Cele Choi 3 [facility] [address], [place], [place]. tel:[phone] [facility], [address] [place], [place], [id number], [place] tel:[phone] [facility] No Information Morgan Ludwig. [address] [place], [place], [id number], [place]. tel:[phone] Referring Provider: Cele Choi, [address] tel:[phone] [facility], [address] [place], [place], [id number], [place] tel:[phone] [facility] No Information Perry Yepez. [address] [place], [place], [id number], [place]. tel:[phone] Referring Provider: Cele Choi, [address] tel:[phone] Family History Family Member Type Diagnosis Age [...] virus, injectable, 3 years and older Fluvirin [id number] administered Source: Other Provider Influenza virus vaccine, Injection administered Source: Other Provider pneumo (2 yrs or older) (PPV23) administered Source: Source Unspecified Influenza virus vaccine, Injection administered Source: Source Unspecified pneumo (2 yrs or older) (PPV23) administered Source: Source Unspecified Payers Payer name Insurance type Covered alliance party ID Authorization(s ) Kam CALVIN [id number] Medicare MB [id number] Social History Type Description Quantity Date Captured [...] Risks/benefits of medications discussed, handout given on [employer] Conservative medical care me asures discussed. Moderate [...]
--- OUTSIDE RECORDS SUMMARY | 2020-07-11 17:54 | CCD ---
Continuity of Care Document (CCD) Created on: 05/24/2020 Elena Marroquin External Reference #: [id number] : [id number] Sex: Female Author Author Elena FAYE D.O. Organization Unknown Address [facility] [employer] [address] [place] [address] Phone [phone] Care Team Providers Care Field Traffic Investigator Name Role Phone Ivon Faye D.O. AUTM Problems Active Problems Provider Date Hyperlipidemia Ivon [...] 2tabs B37.2 Ivon Faye D.O. 05/21/2020 Nystatin 092589Samd/GM Cream apply to rash under the abdominal [...] evening dose to equal 3mg daily istop: [id number] 60tabs F41.1 Lia Fowler.O . 06/21/2019 Clonazepam 2mg Tablets 1 tab by mouth every day at bedtime istop: [id number] 30tabs F41.1 Michelle HolbrookO. 06/20/2019 Levalbuterol HCL 1.25mg/3ML Nebuli zer Inhale 1 Vial Via Nebulizer Every 4 Hours as Needed 144units Michelle MiguelOPaulo 03/16/2018 Venlafaxine HCL ER 75mg Caps ER 24 HR Take 1 Capsule By Mouth Every Day, Take With 150MG 90caps Michelle FowlerOPaulo 01/25/2018 Replacement Cpap Machine set to +[id number] with heated humidifier and heated tubing 1units [...] 6 hours as needed for diarrhea istop#: [id number] Unknown Hyoscyamine Sulfate 0.125mg Tablet s two [...] back to tapered dose rheumatolog qs J20.9 Ivno Carrasco D.O. 01/26/2020 - 03/28/2020 Cefuroxime Axetil [...] CPT Code Status Date Vaccine Lot # [id number] Given 06/20/2019 Pneumococcal Con jugate Vaccine 13 Valent For Intramuscular Use [id number] U-Flu Given 03/28/2019 Influenza,Unspecified [id number] Given 09/21/2018 Tetanus, Diphthe steven Toxoids/Acellular Pertussis Vaccine 7 Or > [id number] Given 03/09/2018 Influenza Vaccin e Quadrivalent Preser/Antibiotic Free Im Use [id number] 64339 Given 04/10/2017 Influenza Vaccin e Quadrivalent Preser/Antibiotic Free Im Use [id number] 17156 Given 03/24/2016 Influenza Virus Vaccine, Quadrivalent, Split, Preservative Free [id number] Vital Signs Date Vital Result Comment 05/23/2020 3:29pm BP Systolic 140 mmHg BP Diastolic 84 mmHg Height 64 inches 5'4" Weight 189.00 lb BMI (Body Mass Index) 32.4 kg/m2 Heart Rate 121 /min Respiratory Rate 18 /min Body Temperature 99.4 F O2 % BldC Oximetry 97 % [place] Body Weight 120 lb 05/21/2020 3:58pm BP Systolic 132 mmHg BP Diastolic 88 mmHg Height 64 inches 5'4" Heart Rate 112 /min Respiratory Rate 20 /min Body Temperature 98.6 F O2 % BldC Oximetry 99 % [place] Body Weight 120 lb Results Test Acquired Date Facility Test Result H/L Range Note Respiratory Panel 05/23/2020 [facility] [address] [address] [phone] Respiratory Panel This respiratory <SEE NOTE> 1 Inhouse Ua 05/21/2020 Inhouse Inhouse Leukocytes +++ Inhouse Nitrite + Inhouse Urobilinogen ++ Inhouse Protein ++ Inhouse PH 7.0 Inhouse Hemoglobin large Inhouse Specific [place] 1.007 Inhouse Ketones +++ Inhouse Bilirubin + Inhouse Glucose <pending> Laboratory test finding 05/21/[address] [address] [phone] Urine Culture FULL REPORT IN L <SEE NOTE> Normal 2 Comprehensive Metabolic Profil 02/08/[address] [address] [phone] Glucose, Fasting 109 mg/dL High 70-100 Blood Urea Nitrogen 21 mg/dL High 7-18 Creatinine For GFR 0.78 mg/dL Normal 0.55-1.30 Glomerular Filtration Rate > 60.0 Normal >51 3 Sodium Level 139 mEq/L Normal 136-145 Potassium [...] Ratio 1.8 Normal 1.2-2.2 Hemoglobin A1c 02/08/2020 [facility] [address] [address] [phone] Hemoglobin A1c 6.7 % Normal 4 Estimated Average Glucose 146 mg/dL High 60-110 Lipid Panel 02/08/2020 [facility] [address] [place] [address] [phone] Triglycerides Level 118 mg/dL Normal <150 Cholesterol Level 151 mg/dL Normal <200 HDL Cholesterol 76 mg/dL Normal >40 LDL Cholesterol 51 mg/dL Normal <100 Non-HDL-C 75 mg/dL Normal Cholesterol Risk Ratio 1.986 Normal <5 CBC With Differential 02/08/2020 [facility] [address] [place] [address] [phone] White Blood Count 9.6 10 Normal 4.0-10.0 [...] 36.0-66.0 Lymph % 34.8 % Normal 24.0-44.0 Patrick % 7.0 % High 0.0-5.0 Eos % 1.8 % Normal 0.0-3.0 Baso % 1.0 % Normal 0.0-1.0 Immature Granulocyte % 0.8 % Normal 0-3.0 Nucleated Red Blood Cell % 0.0 % Normal 0-0 Neutrophils # 5.2 10 Normal 1.5-8.5 Lymph # 3.3 10 Normal 1.5-5.0 Patrick # 0.7 10 Normal 0.0-0.8 Eos # 0.2 10 Normal 0.0-0.5 Baso # 0.1 10 Normal 0.0-0.2 1 This respiratory PCR panel d etects Influenza A H1, H3 and 2009 H1 viruses, Influenza B virus, Resp iratory Syncytial Virus, Human metapneumovirus, Parainfluenza virus 1, 2, 3 and 4, Adenovirus, Rhinovirus/Enterovirus, Coronavirus HKU1, NL63, OC43, 229E and SARS-CoV-2 (COVID 19), Bordetella pertussis, Bordetella parapertussis, Mycoplasma pneumoniae and Chlamydia pneumoniae. NEGATIVE by MULTIPLEXED NUCLEIC ACID PCR SARS-CoV-2 (COVID 19) NEGATIVE - SARS-CoV-2 (COVID19) 2 FULL REPORT IN LAB NOTES (eC W and Medarnaldo). ORGANISM 1: ESCHERICHIA COLI COLONY COUNT >100,000 [...] SPCTRM BETA LACTAMASE IV NEGATIVE FOR ESBL 3 Units are mL/min/1.73 m2 Chronic Kidney Disease Staging per NKF: Stage I & II GFR >=60 Normal to Mildly Decreased Stage III GFR 30-59 Moderately Decreased Stage IV GFR 15-29 Severely Decreased Stage V GFR <15 Very Little GFR Left ESRD GFR <15 on SIGHTER 4 REFERENCE RANGES: <=5.6% NORMAL 5.7-6.4% SUGGESTS IMPAIRED GLUCOSE META BOLISM/PREDIABETIC >= 6.5% ABNORMAL Procedures Description No Information Available Medical Devices Description No Information Available Encounters Type Date Location Provider Dx Diagnosis Office Visit 05/23/2020 3:30p [facility] Lia Fowler.OPaulo N39.0 Urinary tract infection, sit e not specified R07.89 Other chest pain R50.9 Fever, unspecified Office Visit 05/21/2020 3:40p [facility] Lia Fowler.OPaulo N39.0 Urinary tract infection, sit e not specified 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 I10 Essential (primary) hyperten janina E11.9 Type 2 diabetes mellitus wit hout complications G47.33 Obstructive sleep apnea (filiberto lt) (pediatric) F41.1 Generalized anxiety disorder E78.2 Mixed hyperlipidemia K58.0 Irritable bowel syndrome wit h diarrhea M08.00 Uns juvenile rheumatoid art hritis of unspecified site M79.7 Fibromyalgia Z88.1 Allergy status to other anti biotic agents Z79.899 Other intermediate teacher (current) dr charity therapy Z79.84 senior living (current) use of o ral hypoglycemic drugs Z79.52 senior living (current) use of s ystemic steroids Office Visit 01/26/2020 2:30p [facility] Ivon Faye D.OPaulo J20.9 Acute bronchitis, unspecifie d Office Visit 12/19/2019 10:40a [facility] CHRISTEN Lynch Z00.00 Encntr for general adult med ical exam w/o abnormal findings Z12.31 Encntr screen mammogram for malignant neoplasm of breast Assessments Date Code Description Provider 05/23/2020 N39.0 Urinary tract infection, site no t specified Ivon Phelps D.OPaulo 05/23/2020 R07.89 Other chest pain Michelle GuillaumeOPaulo 05/23/2020 R50.9 Fever, unspecified Ivon Grimes, D.O. 05/21/2020 N39.0 Urinary tract infection, site no t specified Ivon Phelps, D.O. 05/21/2020 M08.00 Unspecified juvenile rheumatoid arthritis of unspecified sit Ivon Faye, D.O. 05/21/2020 B37.2 Candidiasis of skin and nail Molly jasmin Yunier, D.O. 03/28/2020 I10 Essential (primary) hypertension Ivon Faye, D.O. 03/28/2020 E11.9 Type 2 diabetes mellitus without complications Ivon Phelps, D.O. 03/28/2020 G47.33 Obstructive sleep apnea (adult) (pediatric) Ivon Phelps, D.O. 03/28/2020 F41.1 Generalized anxiety disorder Molly jasmin Yunier, D.O. 03/28/2020 E78.2 Mixed hyperlipidemia Ivon Choi, D.O. 03/28/2020 K58.0 Irritable bowel syndrome with di arrhea Ivon Faye, D.O. 03/28/2020 M08.00 Unspecified juvenile rheumatoid arthritis of unspecified sit Ivon Faye, D.O. 03/28/2020 M79.7 Fibromyalgia Ivon ortiz, D.O. 03/28/2020 Z88.1 Allergy status to other antibiot ic agents Ivon Faye, D.O. 03/28/2020 Z79.899 Other intermediate teacher (current) drug t herapy Ivon Faye, D.O. 03/28/2020 Z79.84 long term care administrator (current) use of oral hypoglycemic drugs Ivon Faye, D.O. 03/28/2020 Z79.52 senior living (current) use of syste lourdes steroids Ivon Phelps, D.O. 01/26/2020 J20.9 Acute bronchitis, unspecified Hunter Faye, D.O. 12/19/2019 Z00.00 Encounter for genera l adult medical examination without abnormal findings CHRISTEN Lynch 12/19/2019 Z12.31 Encounter for screen ing mammogram for malignant neoplasm of breast CHRISTEN Lynch Plan of Treatment Future Appointment(s):* 06/28/2020 11:00 am - CHRISTEN Lynch at [facility] Functional Status Description No Information Available Mental Status Description No Information Available Referrals Description No Information Available
--- OUTSIDE RECORDS SUMMARY | 2020-07-11 17:55 | CCD | Continuity of Care Document ---
Author Author Elena FAYE D.O. Organization Unknown Address [facility] [employer] [address] [place] [address] Phone [phone] Care Team Providers Care Medical Records Field Technician Name Role Phone Ivon Faye D.O. AUTM [phone] Problems Active Problems Provider Date Hyperlipidemia Ivon [...] limb Ivon Faye D.O. Onset: 2015 Fibromyalgia iLa Fowler.O. Onset: 2015 Immunization Lia Fowler.OPaulo Onset: [...] 2tabs B37.2 Ivon Faye D.O. 05/21/2020 Nystatin 597681Rzyf/GM Cream apply to rash under the abdominal [...] evening dose to equal 3mg daily istop: 085471714 60tabs F41.1 Lia Fowler.O . 06/21/2019 Clonazepam 2mg Tablets 1 tab by mouth every day at bedtime istop: 403702581 30tabs F41.1 Michelle HolbrookO. 06/20/2019 Levalbuterol HCL 1.25mg/3ML Nebuli zer Inhale 1 Vial Via Nebulizer Every 4 Hours as Needed 144units Michelle MiguelOPaulo 03/16/2018 Venlafaxine HCL ER 75mg Caps ER 24 HR Take 1 Capsule By Mouth Every Day, Take With 150MG 90caps Michelle FowlerOPaulo 01/25/2018 Replacement Cpap Machine set to +[id number] with heated humidifier and heated tubing 1units [...] as needed for flare ups 80gm L30.9 Mihcelle FowlerOPaulo 07/09/2015 C-Pap Mask And Supplies icd-9 [...] 6 hours as needed for diarrhea istop#: [id number] Unknown Hyoscyamine Sulfate 0.125mg Tablet s two [...] a day x 10 days 20tabs J20.9 Michelle FowlerOPaulo 01/26/2020 - 03/28/2020 Medications Administered in Office Medication SIG Qnty Indications Ordering Provider Date Injection Ceftriaxone Sodium Per 250 MG (Rocephin) Injection Michelle VivasOPaulo 05/21/2020 Immunization Administration Single Or Co mbination Injection CHRISTEN Lynch Immunization Administration Single Or Co mbination Injection Nurse 03/09/2018 Immunization Administration Single Or Co mbination Injection Lia Fowler .OPaulo 04/10/2017 Immunization Administration Single Or Co mbination Injection Lia Fowler .OPaulo 03/24/2016 Injection Ketorolac Tromethamine Per 15 MG (Toradol) Injection CHRISTEN Rizo 05/08/2015 Therapeutic, Prophylactic Or Diagnostic Injection Subq/Im Injection Michelle VivasOPaulo 05/08/2015 Immunizations CPT Code Status Date Vaccine Lot # [id number] Given 06/20/2019 Pneumococcal Con jugate Vaccine 13 Valent For Intramuscular Use [id number] U-Flu Given 03/28/2019 Influenza,Unspecified 92165 Given 09/21/2018 Tetanus, Diphthe steven Toxoids/Acellular Pertussis Vaccine 7 Or > [id number] 72188 Given 03/09/2018 Influenza Vaccin e Quadrivalent Preser/Antibiotic Free Im Use [id number] 74106 Given 04/10/2017 Influenza Vaccin e Quadrivalent Preser/Antibiotic Free Im Use [id number] 15269 Given 03/24/2016 Influenza Virus Vaccine, Quadrivalent, Split, Preservative Free [id number] Vital Signs Date Vital Result Comment 05/21/2020 3:58pm BP Systolic 132 mmHg BP Diastolic 88 mmHg Height 64 inches 5'4" Heart Rate 112 /min Respiratory Rate 20 /min Body Temperature 98.6 F O2 % BldC Oximetry 99 % [place] Body Weight 120 lb 03/28/2020 11:33am BP Systolic 132 mmHg BP Diastolic 76 mmHg Height 64 inches 5'4" Weight 202.50 lb BMI (Body Mass Index) 34.8 kg/m2 Heart Rate 96 /min Respiratory Rate 18 /min Body Temperature 98.9 F O2 % BldC Oximetry 98 % [place] Body Weight 120 lb Results Test Acquired Date Facility Test Result H/L Range Note Comprehensive Metabolic Profil 02/08/[address] [address] [phone] Glucose, Fasting 109 mg/dL High 70-100 Blood Urea Nitrogen 21 mg/dL High 7-18 Creatinine For GFR 0.78 mg/dL Normal 0.55-1.30 Glomerular Filtration Rate > 60.0 Normal >51 1 Sodium Level 139 mEq/L Normal 136-145 Potassium [...] Ratio 1.8 Normal 1.2-2.2 Hemoglobin A1c 02/08/[address] [address] [phone] Hemoglobin A1c 6.7 % Normal 2 Estimated Average Glucose 146 mg/dL High 60-110 Lipid Panel 02/08/[address] [address] [phone] Triglycerides Level 118 mg/dL Normal <150 Cholesterol Level 151 mg/dL Normal <200 HDL Cholesterol 76 mg/dL Normal >40 LDL Cholesterol 51 mg/dL Normal <100 Non-HDL-C 75 mg/dL Normal Cholesterol Risk Ratio 1.986 Normal <5 CBC With Differential 02/08/[address] [address] [phone] White Blood Count 9.6 10 Normal 4.0-10.0 [...] 36.0-66.0 Lymph % 34.8 % Normal 24.0-44.0 [place] % 7.0 % High 0.0-5.0 Eos % 1.8 % Normal 0.0-3.0 Baso % 1.0 % Normal 0.0-1.0 Immature Granulocyte % 0.8 % Normal 0-3.0 Nucleated Red Blood Cell % 0.0 % Normal 0-0 Neutrophils # 5.2 10 Normal 1.5-8.5 Lymph # 3.3 10 Normal 1.5-5.0 [place] # 0.7 10 Normal 0.0-0.8 Eos # 0.2 10 Normal 0.0-0.5 Baso # 0.1 10 Normal 0.0-0.2 1 Units are mL/min/1.73 m2 Chronic Kidney Disease Staging per NKF: Stage I & II GFR >=60 Normal to Mildly Decreased Stage III GFR 30-59 Moderately Decreased Stage IV GFR 15-29 Severely Decreased Stage V GFR <15 Very Little GFR Left ESRD GFR <15 on CHILD AND ADOLESCENT PSYCHIATRIST 2 REFERENCE RANGES: <=5.6% NORMAL 5.7-6.4% SUGGESTS IMPAIRED GLUCOSE META BOLISM/PREDIABETIC >= 6.5% ABNORMAL Procedures Description No Information Available Medical Devices Description No Information Available Encounters Type Date Location Provider Dx Diagnosis Office Visit 05/21/2020 3:40p [facility] Manpreet Faye D.O. 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 J20.9 Acute bronchitis, unspecifie d Office Visit 12/19/2019 10:40a [facility] CHRISTEN Lynch Z00.00 Encntr for general adult med ical exam w/o abnormal findings Z12.31 Encntr screen mammogram for malignant neoplasm of breast Assessments Date Code Description Provider 05/21/2020 N39.0 Urinary tract infection, site no [...] 03/28/2020 F41.1 Generalized anxiety disorder Molly jasmin Faye D.O. 03/28/2020 E78.2 Mixed hyperlipidemia Ivon Choi, D.O. 03/28/2020 K58.0 Irritable bowel syndrome with di arrhea Ivon Faye, D.O. 03/28/2020 M08.00 Unspecified juvenile rheumatoid arthritis of unspecified sit Ivon Faye D.O. 03/28/2020 M79.7 Fibromyalgia Michelle CraigOPaulo 03/28/2020 Z88.1 Allergy status to other antibiot ic agents Lia Fowler.O. 03/28/2020 Z79.899 Other retirement (current) drug t herapy Lia Fowler.O. 03/28/2020 Z79.84 correction (current) use of oral hypoglycemic drugs Lia Fowler.O. 03/28/2020 Z79.52 termite helper (current) use of syste lourdes steroids Lia Miguel.OPaulo 01/26/2020 J20.9 Acute bronchitis, unspecified Michelle LangfordOPaulo 12/19/2019 Z00.00 Encounter for genera l adult medical examination without abnormal findings CHRISTEN Lynch 12/19/2019 Z12.31 Encounter for screen ing mammogram for malignant neoplasm of breast CHRISTEN Lynch Plan of Treatment Future Appointment(s):* 06/28/2020 11:00 am - CHRISTEN Lynch at [facility] Functional Status Description No Information Available Mental Status Description No Information Available Referrals Description No Information Available
--- OUTSIDE RECORDS SUMMARY | 2020-07-11 17:55 | CCD | Continuity of Care Document ---
Author Author Elena FAYE D.O. Organization Unknown Address [facility] [address] [place] [address] Phone [phone] Care Team Providers Care Template Clerk Name Role Phone Ivon Faye D.O. AUTM [...] Lia Fowler.OPaulo Onset: 2016 Mixed hyperlipidemia Ivon Fyae D.O. Onset: 04/10 Type 2 diabetes mellitus [...] 2tabs B37.2 Ivon Faye D.O. 05/21/2020 Nystatin [id number]/GM Cream apply to rash under the abdominal [...] evening dose to equal 3mg daily istop: [id number] 60tabs F41.1 Lia Fowler.O . 06/21/2019 Clonazepam 2mg Tablets 1 tab by mouth every day at bedtime istop: [id number] 30tabs F41.1 Michelle HolbrookO. 06/20/2019 Levalbuterol HCL 1.25mg/3ML Nebuli zer Inhale 1 Vial Via Nebulizer Every 4 Hours as Needed 144units Michelle MiguelOPaulo 03/16/2018 Venlafaxine HCL ER 75mg Caps ER 24 HR Take 1 Capsule By Mouth Every Day, Take With 150MG 90caps Michelle FowlerOPaulo 01/25/2018 Replacement Cpap Machine set to [id number] with heated humidifier and heated tubing 1units [...] 6 hours as needed for diarrhea istop#: [id number] Unknown Hyoscyamine Sulfate 0.125mg Tablet s two [...] CPT Code Status Date Vaccine Lot # 36369 Given 06/20/2019 Pneumococcal Con jugate Vaccine 13 Valent For Intramuscular Use [id number] U-Flu Given 03/28/2019 Influenza,Unspecified 83877 Given 09/21/2018 Tetanus, Diphthe steven Toxoids/Acellular Pertussis Vaccine 7 Or > [id number] 06931 Given 03/09/2018 Influenza Vaccin e Quadrivalent Preser/Antibiotic Free Im Use [id number] 75390 Given 04/10/2017 Influenza Vaccin e Quadrivalent Preser/Antibiotic Free Im Use [id number] Given 03/24/2016 Influenza Virus Vaccine, Quadrivalent, Split, Preservative Free [id number] Vital Signs Date Vital Result Comment 05/21/2020 3:58pm BP Systolic 132 mmHg BP Diastolic 88 mmHg Height 64 inches 5'4" Heart Rate 112 /min Respiratory Rate 20 /min Body Temperature 98.6 F O2 % BldC Oximetry 99 % [place] Body Weight 120 lb 03/28/2020 11:33am BP Systolic 132 mmHg BP Diastolic 76 mmHg Height 64 inches 5'4" Weight 202.50 lb BMI (Body Mass Index) 34.8 kg/m2 Heart Rate 96 /min Respiratory Rate 18 /min Body Temperature 98.9 F O2 % BldC Oximetry 98 % [place] Body Weight 120 lb Results Test Acquired Date Facility Test Result H/L Range Note Inhouse Ua 05/21/2020 Inhouse Inhouse Leukocytes +++ Inhouse Nitrite + Inhouse Urobilinogen ++ Inhouse Protein ++ Inhouse PH 7.0 Inhouse Hemoglobin large Inhouse Specific [place] 1.007 Inhouse Ketones +++ Inhouse Bilirubin + Inhouse Glucose <pending> Laboratory test finding 05/21/[address] [address] [phone] Urine Culture FULL REPORT IN L <SEE NOTE> Normal 1 Comprehensive Metabolic Profil 02/08/[address] [address] [phone] Glucose, Fasting 109 mg/dL High 70-100 Blood [...] Ratio 1.8 Normal 1.2-2.2 Hemoglobin A1c 02/08/[address] [address] [phone] Hemoglobin A1c 6.7 % Normal 3 Estimated Average Glucose 146 mg/dL High 60-110 Lipid Panel 02/08/[address] [address] [phone] Triglycerides Level 118 mg/dL Normal <150 Cholesterol Level 151 mg/dL Normal <200 HDL Cholesterol 76 mg/dL Normal >40 LDL Cholesterol 51 mg/dL Normal <100 Non-HDL-C 75 mg/dL Normal Cholesterol Risk Ratio 1.986 Normal <5 CBC With Differential 02/08/[address] [id number] [phone] White Blood Count 9.6 10 Normal 4.0-10.0 [...] 36.0-66.0 Lymph % 34.8 % Normal 24.0-44.0 [place] % 7.0 % High 0.0-5.0 Eos % 1.8 % Normal 0.0-3.0 Baso % 1.0 % Normal 0.0-1.0 Immature Granulocyte % 0.8 % Normal 0-3.0 Nucleated Red Blood Cell % 0.0 % Normal 0-0 Neutrophils # 5.2 10 Normal 1.5-8.5 Lymph # 3.3 10 Normal 1.5-5.0 [place] # 0.7 10 Normal 0.0-0.8 Eos # [...] Little GFR Left ESRD GFR <15 on BUILDING INSPECTOR 3 REFERENCE RANGES: <=5.6% NORMAL 5.7-6.4% SUGGESTS IMPAIRED GLUCOSE META BOLISM/PREDIABETIC >= 6.5% ABNORMAL Procedures Description No Information Available Medical Devices Description No Information Available Encounters Type Date Location Provider Dx Diagnosis Office Visit 05/21/2020 3:40p [facility] Manpreet Faye D.O. 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 J20.9 Acute bronchitis, unspecifie d Office Visit 12/19/2019 10:40a [facility] CHRISTEN Lynch Z00.00 Encntr for general adult med ical exam w/o abnormal findings Z12.31 Encntr screen mammogram for malignant neoplasm of breast Assessments Date Code Description Provider 05/21/2020 N39.0 Urinary tract infection, site no t specified Ivon Phelps D.O. 05/21/2020 M08.00 Unspecified juvenile rheumatoid arthritis of unspecified sit Ivon Faye D.O. 05/21/2020 B37.2 Candidiasis of skin and nail Molly Faye D.O. 03/28/2020 I10 Essential (primary) hypertension Ivon Faye D.O. 03/28/2020 E11.9 Type 2 diabetes mellitus without complications Ivon Phelps D.O. 03/28/2020 G47.33 Obstructive sleep apnea (adult) (pediatric) Ivon Phelps D.O. 03/28/2020 F41.1 Generalized anxiety disorder Molly Faye D.O. 03/28/2020 E78.2 Mixed hyperlipidemia Ivon Choi D.O. 03/28/2020 K58.0 Irritable bowel syndrome with di arrhea Ivon Faye D.O. 03/28/2020 M08.00 Unspecified juvenile rheumatoid arthritis of unspecified sit Ivon Faye D.O. 03/28/2020 M79.7 Fibromyalgia Ivon ortiz D.O. 03/28/2020 Z88.1 Allergy status to other antibiot ic agents Lia Fowler.O. 03/28/2020 Z79.899 Other filler leaf cutter long (current) drug t herapy Lia Fowler.O. 03/28/2020 Z79.84 moth exterminator (current) use of oral hypoglycemic drugs Lia Fowler.O. 03/28/2020 Z79.52 moth exterminator (current) use of syste [place] steroids Lia Miguel.O. 01/26/2020 J20.9 Acute bronchitis, unspecified Hunter Faye D.OPaulo 12/19/2019 Z00.00 Encounter for genera l adult [...]
--- OUTSIDE RECORDS SUMMARY | 2020-07-11 17:55 | CCD ---
Continuity of Care Document (CCD) Created on: 05/21/2020 Elena Marroquin External Reference #: [id number] : [id number] Sex: Female Author Author Elena FAYE D.O. Organization Unknown Address [facility] [employer] [address] [place] [address] Phone [phone] Care Team Providers Care Special Procedure Technologist Name Role Phone Ivon Faye D.O. AUTM [...] 2tabs B37.2 Ivon Faye D.O. 05/21/2020 Nystatin 289479Tzpw/GM Cream apply to rash under the abdominal [...] evening dose to equal 3mg daily istop: [id number] 60tabs F41.1 Lia Fowler.O . 06/21/2019 Clonazepam 2mg Tablets 1 tab by mouth every day at bedtime istop: [id number] 30tabs F41.1 Michelle HolbrookO. 06/20/2019 Levalbuterol HCL 1.25mg/3ML Nebuli zer Inhale 1 Vial Via Nebulizer Every 4 Hours as Needed 144units Michelle MiguelOPaulo 03/16/2018 Venlafaxine HCL ER 75mg Caps ER 24 HR Take 1 Capsule By Mouth Every Day, Take With 150MG 90caps Michelle FowlerOPaulo 01/25/2018 Replacement Cpap Machine set to [id number] with heated humidifier and heated tubing 1units [...] 6 hours as needed for diarrhea istop#: [id number] Unknown Hyoscyamine Sulfate 0.125mg Tablet s two [...] CPT Code Status Date Vaccine Lot # 61510 Given 06/20/2019 Pneumococcal Con jugate Vaccine 13 Valent For Intramuscular Use [id number] U-Flu Given 03/28/2019 Influenza,Unspecified 19651 Given 09/21/2018 Tetanus, Diphthe steven Toxoids/Acellular Pertussis Vaccine 7 Or > [id number] 16272 Given 03/09/2018 Influenza Vaccin e Quadrivalent Preser/Antibiotic Free Im Use [id number] 69309 Given 04/10/2017 Influenza Vaccin e Quadrivalent Preser/Antibiotic Free Im Use [id number] 73263 Given 03/24/2016 Influenza Virus Vaccine, Quadrivalent, Split, Preservative Free [id number] Vital Signs Date Vital Result Comment 05/21/2020 3:58pm BP Systolic 132 mmHg BP Diastolic 88 mmHg Height 64 inches 5'4" Heart Rate 112 /min Respiratory Rate 20 /min Body Temperature 98.6 F O2 % BldC Oximetry 99 % [place] Body Weight 120 lb 03/28/2020 11:33am BP Systolic 132 mmHg BP Diastolic 76 mmHg Height 64 inches 5'4" Weight 202.50 lb BMI (Body Mass Index) 34.8 kg/m2 Heart Rate 96 /min Respiratory Rate 18 /min Body Temperature 98.9 F O2 % BldC Oximetry 98 % [place] Body Weight 120 lb Results Test Acquired Date Facility Test Result H/L Range Note Inhouse Ua 05/21/2020 Inhouse Inhouse Leukocytes +++ Inhouse Nitrite + Inhouse Urobilinogen ++ Inhouse Protein ++ Inhouse PH 7.0 Inhouse Hemoglobin large Inhouse Specific [place] 1.007 Inhouse Ketones +++ Inhouse Bilirubin + Inhouse Glucose <pending> Comprehensive Metabolic Profil 02/08/[address] [address] [phone] Glucose, Fasting 109 mg/dL High 70-100 Blood [...] Ratio 1.8 Normal 1.2-2.2 Hemoglobin A1c 02/08/[address] [facility] [address] [address] [phone] Hemoglobin A1c 6.7 % Normal 2 Estimated Average Glucose 146 mg/dL High 60-110 Lipid Panel 02/08/[address] [facility] [address] [address] [phone] Triglycerides Level 118 mg/dL Normal <150 Cholesterol Level 151 mg/dL Normal <200 HDL Cholesterol 76 mg/dL Normal >40 LDL Cholesterol 51 mg/dL Normal <100 Non-HDL-C 75 mg/dL Normal Cholesterol Risk Ratio 1.986 Normal <5 CBC With Differential 02/08/[address] [address]61 [phone] White Blood Count 9.6 10 Normal 4.0-10.0 [...] 36.0-66.0 Lymph % 34.8 % Normal 24.0-44.0 [place] % 7.0 % High 0.0-5.0 Eos % 1.8 % Normal 0.0-3.0 Baso % 1.0 % Normal 0.0-1.0 Immature Granulocyte % 0.8 % Normal 0-3.0 Nucleated Red Blood Cell % 0.0 % Normal 0-0 Neutrophils # 5.2 10 Normal 1.5-8.5 Lymph # 3.3 10 Normal 1.5-5.0 [place] # 0.7 10 Normal 0.0-0.8 Eos # 0.2 10 Normal 0.0-0.5 Baso # 0.1 10 Normal 0.0-0.2 1 Units are mL/min/1.73 m2 Chronic Kidney Disease Staging per NKF: Stage I & II GFR >=60 Normal to Mildly Decreased Stage III GFR 30-59 Moderately Decreased Stage IV GFR 15-29 Severely Decreased Stage V GFR <15 Very Little GFR Left ESRD GFR <15 on RUG HOOKER 2 REFERENCE RANGES: <=5.6% NORMAL 5.7-6.4% SUGGESTS IMPAIRED GLUCOSE META BOLISM/PREDIABETIC >= 6.5% ABNORMAL Procedures Description No Information Available Medical Devices Description No Information Available Encounters Type Date Location Provider Dx Diagnosis Office Visit 05/21/2020 3:40p [facility] Manpreet Faye D.O. 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 J20.9 Acute bronchitis, unspecifie d Office Visit 12/19/2019 10:40a Family [facility] CHRISTEN Lynch Z00.00 Encntr for general [...] E11.9 Type 2 diabetes mellitus without complications Lia Miguel.O. 03/28/2020 G47.33 Obstructive sleep apnea (adult) (pediatric) Ivon Phelps D.O. 03/28/2020 F41.1 Generalized anxiety disorder Molly Faye D.O. 03/28/2020 E78.2 Mixed hyperlipidemia Ivon Choi D.O. 03/28/2020 K58.0 Irritable bowel syndrome with di arrhea Lia Fowler.O. 03/28/2020 M08.00 Unspecified juvenile rheumatoid arthritis of unspecified sit Lia Fowler.O. 03/28/2020 M79.7 Fibromyalgia Lia Craig.O. 03/28/2020 Z88.1 Allergy status to other antibiot ic agents Lia Fowler.O. 03/28/2020 Z79.899 Other rat exterminator (current) drug t herapy Lia Fowler.O. 03/28/2020 Z79.84 nursing home (current) use of oral hypoglycemic drugs Lia Fowler.O. 03/28/2020 Z79.52 nursing home (current) use of syste lourdes steroids Lia Miguel.O. 01/26/2020 J20.9 Acute bronchitis, unspecified Lia Langford.O. 12/19/2019 Z00.00 Encounter for genera l adult medical examination without abnormal findings CHRISTEN Lynch 12/19/2019 Z12.31 Encounter for screen ing mammogram for malignant neoplasm of breast CHRISTEN Lynch Plan of Treatment Future Appointment(s):* 06/28/2020 11:00 am - CHRISTEN Lynch at [facility] Functional Status Description No Information Available Mental Status Description No Information Available Referrals Description No Information Available
--- OUTSIDE RECORDS SUMMARY | 2020-07-11 17:55 | CCD | Continuity of Care Document ---
Author Author Elena FAYE D.O. Organization Unknown Address [facility] [employer] [address] [place] [address] Phone [phone] Care Team Providers Care Nuclear Equipment Operator Name Role Phone Ivon Faye D.O. AUTM [...] 2tabs B37.2 Ivon Faye D.O. 05/21/2020 Nystatin 343469Yvuo/GM Cream apply to rash under the abdominal [...] evening dose to equal 3mg daily istop: [id number] 60tabs F41.1 Lia Fowler.O . 06/21/2019 Clonazepam 2mg Tablets 1 tab by mouth every day at bedtime istop: [id number] 30tabs F41.1 Michelle HolbrookO. 06/20/2019 Levalbuterol HCL 1.25mg/3ML Nebuli zer Inhale 1 Vial Via Nebulizer Every 4 Hours as Needed 144units Michelle MiguelOPaulo 03/16/2018 Venlafaxine HCL ER 75mg Caps ER 24 HR Take 1 Capsule By Mouth Every Day, Take With 150MG 90caps Michelle FowlerOPaulo 01/25/2018 Replacement Cpap Machine set to +[id number] with heated humidifier and heated tubing 1units [...] 6 hours as needed for diarrhea istop#: [id number] Unknown Hyoscyamine Sulfate 0.125mg Tablet s two [...] CPT Code Status Date Vaccine Lot # 34274 Given 06/20/2019 Pneumococcal Con jugate Vaccine 13 Valent For Intramuscular Use [id number] U-Flu Given 03/28/2019 Influenza,Unspecified 66189 Given 09/21/2018 Tetanus, Diphthe steven Toxoids/Acellular Pertussis Vaccine 7 Or > [id number] 83233 Given 03/09/2018 Influenza Vaccin e Quadrivalent Preser/Antibiotic Free Im Use [id number] 92730 Given 04/10/2017 Influenza Vaccin e Quadrivalent Preser/Antibiotic Free Im Use [id number] 86678 Given 03/24/2016 Influenza Virus Vaccine, Quadrivalent, Split, Preservative Free [id number] Vital Signs Date Vital Result Comment 05/21/2020 3:58pm BP Systolic 132 mmHg BP Diastolic 88 mmHg Height 64 inches 5'4" Heart Rate 112 /min Respiratory Rate 20 /min Body Temperature 98.6 F O2 % BldC Oximetry 99 % [place] Body Weight 120 lb 03/28/2020 11:33am BP Systolic 132 mmHg BP Diastolic 76 mmHg Height 64 inches 5'4" Weight 202.50 lb BMI (Body Mass Index) 34.8 kg/m2 Heart Rate 96 /min Respiratory Rate 18 /min Body Temperature 98.9 F O2 % BldC Oximetry 98 % [place] Body Weight 120 lb Results Test Acquired Date Facility Test Result H/L Range Note Comprehensive Metabolic Profil 02/08/[address] [address] [phone] Glucose, Fasting 109 mg/dL High 70-100 Blood [...] Ratio 1.8 Normal 1.2-2.2 Hemoglobin A1c 02/08/[address] [address] [phone] Hemoglobin A1c 6.7 % Normal 2 Estimated Average Glucose 146 mg/dL High 60-110 Lipid Panel 02/08/[address] [address] [phone] Triglycerides Level 118 mg/dL Normal <150 Cholesterol Level 151 mg/dL Normal <200 HDL Cholesterol 76 mg/dL Normal >40 LDL Cholesterol 51 mg/dL Normal <100 Non-HDL-C 75 mg/dL Normal Cholesterol Risk Ratio 1.986 Normal <5 CBC With Differential 02/08/[address] [address] [phone] White Blood Count 9.6 10 Normal 4.0-10.0 [...] 36.0-66.0 Lymph % 34.8 % Normal 24.0-44.0 [place] % 7.0 % High 0.0-5.0 Eos % 1.8 % Normal 0.0-3.0 Baso % 1.0 % Normal 0.0-1.0 Immature Granulocyte % 0.8 % Normal 0-3.0 Nucleated Red Blood Cell % 0.0 % Normal 0-0 Neutrophils # 5.2 10 Normal 1.5-8.5 Lymph # 3.3 10 Normal 1.5-5.0 [place] # 0.7 10 Normal 0.0-0.8 Eos # 0.2 10 Normal 0.0-0.5 Baso # 0.1 10 Normal 0.0-0.2 1 Units are mL/min/1.73 m2 Chronic Kidney Disease Staging per NKF: Stage I & II GFR >=60 Normal to Mildly Decreased Stage III GFR 30-59 Moderately Decreased Stage IV GFR 15-29 Severely Decreased Stage V GFR <15 Very Little GFR Left ESRD GFR <15 on STAGE PRODUCER 2 REFERENCE RANGES: <=5.6% NORMAL 5.7-6.4% SUGGESTS IMPAIRED GLUCOSE META BOLISM/PREDIABETIC >= 6.5% ABNORMAL Procedures Description No Information Available Medical Devices Description No Information Available Encounters Type Date Location Provider Dx Diagnosis Office Visit 05/21/2020 3:40p [facility] Manpreet Faye D.O. 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 Ivon Faye D.O. J20.9 Acute bronchitis, unspecifie d Office Visit 12/19/2019 10:40a [facility] CHRISTEN Lynch Z00.00 Encntr for general adult [...] ic agents Lia Fowler.O. 03/28/2020 Z79.899 Other [facility] (current) drug t herapy Lia Fowler.O. 03/28/2020 Z79.84 group home (current) use of oral hypoglycemic drugs Lia Fowler.O. 03/28/2020 Z79.52 buttermaker helper (current) use of syste lourdes steroids Lia Miguel.OPaulo 01/26/2020 J20.9 Acute bronchitis, unspecified Michelle LangfordOPaulo 12/19/2019 Z00.00 Encounter for genera l adult medical examination without abnormal findings CHRISTEN Lynch 12/19/2019 Z12.31 Encounter for screen ing mammogram for malignant neoplasm of breast CHRISTEN Lynch Plan of Treatment Future Appointment(s):* 06/28/2020 11:00 am - CHRISTEN Lynch at [facility] Functional Status Description No Information Available Mental Status Description No Information Available Referrals Description No Information Available
--- OUTSIDE RECORDS SUMMARY | 2020-07-11 17:55 | CCD | Continuity of Care Document ---
Author Author Elena FAYE D.O. Organization Unknown Address [facility] [address] [place] [address] Phone [phone] Care Team Providers Care Floor Clerk Name Role Phone Ivon Faye D.O. AUTM Problems Active Problems Provider Date Hyperlipidemia Ivno Faye D.O. Onset: 2014 Essential hypertension Ivon [...] 2tabs B37.2 Ivon Faye D.O. 05/21/2020 Nystatin [id number]/GM Cream apply to rash under the abdominal [...] evening dose to equal 3mg daily istop: [id number] 60tabs F41.1 Lia Fowler.O . 06/21/2019 Clonazepam 2mg Tablets 1 tab by mouth every day at bedtime istop: [id number] 30tabs F41.1 Michelle HolbrookO. 06/20/2019 Levalbuterol HCL 1.25mg/3ML Nebuli zer Inhale 1 Vial Via Nebulizer Every 4 Hours as Needed 144units Michelle MiguelOPaulo 03/16/2018 Venlafaxine HCL ER 75mg Caps ER 24 HR Take 1 Capsule By Mouth Every Day, Take With 150MG 90caps Michelle FowlerOPaulo 01/25/2018 Replacement Cpap Machine set to [id number] with heated humidifier and heated tubing 1units [...] 6 hours as needed for diarrhea istop#: [id number] Unknown Hyoscyamine Sulfate 0.125mg Tablet s two [...] CPT Code Status Date Vaccine Lot # [id number] Given 06/20/2019 Pneumococcal Con jugate Vaccine 13 Valent For Intramuscular Use [id number] U-Flu Given 03/28/2019 Influenza,Unspecified [id number] Given 09/21/2018 Tetanus, Diphthe steven Toxoids/Acellular Pertussis Vaccine 7 Or > [id number] Given 03/09/2018 Influenza Vaccin e Quadrivalent Preser/Antibiotic Free Im Use [id number] 65979 Given 04/10/2017 Influenza Vaccin e Quadrivalent Preser/Antibiotic Free Im Use [id number] Given 03/24/2016 Influenza Virus Vaccine, Quadrivalent, Split, Preservative Free [id number] Vital Signs Date Vital Result Comment 05/23/2020 3:29pm BP Systolic 140 mmHg BP Diastolic 84 mmHg Height 64 inches 5'4" Weight 189.00 lb BMI (Body Mass Index) 32.4 kg/m2 Heart Rate 121 /min Respiratory Rate 18 /min Body Temperature 99.4 F O2 % BldC Oximetry 97 % [place] Body Weight 120 lb 05/21/2020 3:58pm BP Systolic 132 mmHg BP Diastolic 88 mmHg Height 64 inches 5'4" Heart Rate 112 /min Respiratory Rate 20 /min Body Temperature 98.6 F O2 % BldC Oximetry 99 % [place] Body Weight 120 lb Results Test Acquired Date Facility Test Result H/L Range Note Inhouse Ua 05/21/2020 Inhouse Inhouse Leukocytes +++ Inhouse Nitrite + Inhouse Urobilinogen ++ Inhouse Protein ++ Inhouse PH 7.0 Inhouse Hemoglobin large Inhouse Specific [place] 1.007 Inhouse Ketones +++ Inhouse Bilirubin + Inhouse Glucose <pending> Laboratory test finding 05/21/[address] [address] [phone] Urine Culture FULL REPORT IN L <SEE NOTE> Normal 1 Comprehensive Metabolic Profil 02/08/[address] [address] [phone] Glucose, Fasting 109 mg/dL High 70-100 Blood [...] Ratio 1.8 Normal 1.2-2.2 Hemoglobin A1c 02/08/[address] [address] [phone] Hemoglobin A1c 6.7 % Normal 3 Estimated Average Glucose 146 mg/dL High 60-110 Lipid Panel 02/08/[address] [id number] [phone] Triglycerides Level 118 mg/dL Normal <150 Cholesterol Level 151 mg/dL Normal <200 HDL Cholesterol 76 mg/dL Normal >40 LDL Cholesterol 51 mg/dL Normal <100 Non-HDL-C 75 mg/dL Normal Cholesterol Risk Ratio 1.986 Normal <5 CBC With Differential 02/08/[address] [id number] [phone] White Blood Count 9.6 10 Normal 4.0-10.0 [...] 36.0-66.0 Lymph % 34.8 % Normal 24.0-44.0 [place] % 7.0 % High 0.0-5.0 Eos % 1.8 % Normal 0.0-3.0 Baso % 1.0 % Normal 0.0-1.0 Immature Granulocyte % 0.8 % Normal 0-3.0 Nucleated Red Blood Cell % 0.0 % Normal 0-0 Neutrophils # 5.2 10 Normal 1.5-8.5 Lymph # 3.3 10 Normal 1.5-5.0 [place] # 0.7 10 Normal 0.0-0.8 Eos # [...] Little GFR Left ESRD GFR <15 on MEDICAL RECORDS CUSTODIAN 3 REFERENCE RANGES: <=5.6% NORMAL 5.7-6.4% SUGGESTS IMPAIRED GLUCOSE META BOLISM/PREDIABETIC >= 6.5% ABNORMAL Procedures Description No Information Available Medical Devices Description No Information Available Encounters Type Date Location Provider Dx Diagnosis Office Visit 05/23/2020 3:30p [facility] Manpreet Faye D.O. N39.0 Urinary tract infection, sit e not specified R07.89 Other chest pain R50.9 Fever, unspecified Office Visit 05/21/2020 3:40p [facility] Manpreet Faye D.O. 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 Ivon Faye, D.O. 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 J20.9 Acute bronchitis, unspecifie d Office Visit 12/19/2019 10:40a Family [facility] CHRISTEN Lynch Z00.00 Encntr for general [...] Yunier D.O. 03/28/2020 E78.2 Mixed hyperlipidemia Ivon Charlene Choi D.O. 03/28/2020 K58.0 Irritable bowel syndrome with di arrhea Lia Fowler.O. 03/28/2020 M08.00 Unspecified juvenile rheumatoid arthritis of unspecified sit Ivon Faye D.O. 03/28/2020 M79.7 Fibromyalgia Ivon ortiz D.O. 03/28/2020 Z88.1 Allergy status to other antibiot ic agents Ivon Faye D.O. 03/28/2020 Z79.899 Other termite treater (current) drug t herapy Lia Fowler.O. 03/28/2020 Z79.84 longterm (current) use of oral hypoglycemic drugs Ivon Faye D.O. 03/28/2020 Z79.52 longterm (current) use of syste [place] steroids Ivon Phelps D.O. 01/26/2020 J20.9 Acute bronchitis, unspecified Hunter Faye D.O. 12/19/2019 Z00.00 Encounter for genera l adult medical examination without abnormal findings CHRISTEN Lynch 12/19/2019 Z12.31 Encounter for screen ing mammogram for malignant neoplasm of breast CHRISTEN Lynch Plan of Treatment Future Appointment(s):* 06/28/2020 11:00 am - CHRISTEN Lynch at [facility] 05/23/2020 - Ivon Faye D.O.* N39.0 Urinary tract infection, site not specified* Comments:* continue bactrim, 500 mg IM rocephin given today * R07.89 Other chest pain* New Labs:* Respiratory Panel, Ordered: 05/23/20 * Comments:* Given chest pain, fatigue and fever despite treatment of UTI, will check for COVID * R50.9 Fever, unspecified* New Labs:* Respiratory Panel, Ordered: 05/23/20 Functional Status Description No Information Available Mental Status Description No Information Available Referrals Description No Information Available
--- OUTSIDE RECORDS SUMMARY | 2020-07-11 17:56 | CCD | Continuity of Care Document ---
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 Role Phone Enrrique Jama NP Unavailable Unavailable Allergies, Adverse Reactions, Alerts Substance Reaction Status Criticality amoxicillin Hives / Skin Rash Active No Information No Known Drug Allergies Active No Information Medications Medication Instructions Dosage Effective Dates (start - stop) Sta tus Comments Orencia ClickJect 125 mg/mL subcutaneous auto-injector inject 1 milliliter by subcutaneous route every week 125 MG - Active cevimeline 30 mg capsule TAKE 1 CAPSULE BY MOUTH THREE TIMES A D AY - Active Actemra 162 mg/0.9 mL subcutaneous syringe INJECT ONE SYRINGE SUBCUTANEOUSLY EVERY 7 DAYS. KEEP REFRIGERATED. - Active leucovorin calcium 5 mg tablet take 1 tablet by oral route ever y week 5 MG - Active cyclobenzaprine 10 mg tablet TAKE 1 TABLET BY MOUTH 3 TIMES TEMI Y DIRECTED - Active methotrexate sodium 2.5 mg tablet take 8 Tablet by oral route e very week 20 MG - Active LOSARTAN POTASSIUM (unknown strength) take [...] OTC SUPPLEMENTS mvi, D3 400 units bid, [id number] units bid - Active Problems Condition Type Effective Dates (start - stop) Clinical S tatus Comments Unspecified juvenile rheumatoid arthritis, multiple si zoie Diagnosis interpretation (observable entity) Other long-term (current) drug therapy Diagnosis inter pretation (observable entity) Pain in joint Diagnosis interpretation (observable entity) Unspecified juvenile rheumatoid arthritis, multiple si zoie Diagnosis interpretation (observable entity) 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 rig manager (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 Diagnosis inter pretation (observable entity) Pain in joint Diagnosis interpretation (observable entity) Unspecified juvenile rheumatoid arthritis, multiple si zoie Diagnosis interpretation (observable entity) Other rig manager (current) drug therapy Diagnosis inter pretation (observable entity) Sicca syndrome, unspecified Diagnosis interpretation (observable en tity) Unspecified juvenile rheumatoid arthritis, multiple si zoie Diagnosis interpretation (observable entity) Sicca syndrome, unspecified Diagnosis interpretation (observable en tity) Other rig manager (current) drug therapy Diagnosis inter pretation (observable entity) Diarrhea, unspecified Diagnosis interpretation (observable entity) Unspecified juvenile rheumatoid arthritis, multiple si zoie Diagnosis interpretation (observable entity) Sicca syndrome, unspecified Diagnosis interpretation (observable en tity) Fibromyalgia Diagnosis interpretation (observable entity) Osteoarthritis Diagnosis interpretation (observable entity) Other rig manager (current) drug therapy Diagnosis inter pretation (observable entity) Candidal stomatitis Diagnosis interpretation (observable entity) Sicca syndrome, unspecified Diagnosis interpretation (observable en tity) Unspecified juvenile rheumatoid arthritis, multiple si zoie Diagnosis interpretation (observable entity) Fibromyalgia Diagnosis interpretation (observable entity) Unspecified juvenile rheumatoid arthritis, multiple si zoie Diagnosis interpretation (observable entity) Other rig manager (current) drug therapy Diagnosis inter pretation (observable entity) Unspecified juvenile rheumatoid arthritis, multiple si zoie Diagnosis interpretation (observable entity) Sicca syndrome, unspecified Diagnosis interpretation (observable en tity) Fibromyalgia Diagnosis interpretation (observable entity) Other long-term (current) drug therapy Diagnosis inter pretation (observable entity) Diarrhea Diagnosis interpretation (observable entity) Unspecified juvenile rheumatoid arthritis, multiple si zoie Diagnosis interpretation (observable entity) Sicca syndrome, unspecified Diagnosis interpretation (observable en tity) Fibromyalgia Diagnosis interpretation (observable entity) Other rig manager (current) drug therapy Diagnosis inter pretation (observable entity) Unspecified juvenile rheumatoid arthritis, multiple si zoie Diagnosis interpretation (observable entity) Fibromyalgia Diagnosis interpretation (observable entity) Other long-term (current) drug therapy Diagnosis inter pretation (observable entity) Sicca syndrome, unspecified Diagnosis interpretation (observable en tity) Unspecified juvenile rheumatoid arthritis, multiple si zoie Diagnosis interpretation (observable entity) Fibromyalgia Diagnosis interpretation (observable entity) Other long-term (current) drug therapy Diagnosis inter pretation (observable entity) Acute sinusitis Diagnosis interpretation (observable entity) Sicca syndrome Diagnosis interpretation (observable entity) Juvenile rheumatoid arthritis of multiple sites Diagno sis interpretation (observable entity) Other long-term (current) drug therapy Diagnosis inter pretation (observable entity) Fibromyalgia Diagnosis interpretation (observable entity) Sicca syndrome Diagnosis interpretation (observable entity) Juvenile rheumatoid arthritis of multiple sites Diagno sis interpretation (observable entity) Fibromyalgia Diagnosis interpretation (observable entity) Other long-term (current) drug therapy Diagnosis inter pretation (observable entity) Juvenile rheumatoid arthritis of multiple sites Diagno sis interpretation (observable entity) Fibromyalgia Diagnosis interpretation (observable entity) Other rig manager (current) drug therapy Diagnosis inter pretation (observable entity) Pain in joint of lt foot Diagnosis interpretation (observable entit y) Pain in joint of rt foot Diagnosis interpretation (observable entit y) Juvenile rheumatoid arthritis of multiple sites Diagno sis interpretation (observable entity) Other long-term (current) drug therapy Diagnosis inter pretation (observable entity) Fibromyalgia Diagnosis interpretation (observable entity) Pain in right shoulder Diagnosis interpretation (observable entity) Juvenile rheumatoid arthritis of multiple sites Diagno sis interpretation (observable entity) Fibromyalgia Diagnosis interpretation (observable entity) Other long-term (current) drug therapy Diagnosis inter pretation (observable entity) Pain in right knee Diagnosis interpretation (observable entity) Juvenile rheumatoid arthritis of multiple sites Diagno sis interpretation (observable entity) Other rig manager (current) drug therapy Diagnosis inter pretation (observable entity) Medial epicondylitis, right elbow Diagnosis interpretation ( observable entity) Pain in right knee Diagnosis interpretation (observable entity) Pain in left knee Diagnosis interpretation (observable entity) Fibromyalgia Diagnosis interpretation (observable entity) Juvenile rheumatoid arthritis of multiple sites Diagno sis interpretation (observable entity) Other long-term (current) drug therapy Diagnosis inter pretation (observable entity) Pain in right knee Diagnosis interpretation (observable entity) Cough Diagnosis interpretation (observable entity) Juvenile rheumatoid arthritis of multiple sites Diagno sis interpretation (observable entity) Fibromyalgia Diagnosis interpretation (observable entity) Other long-term (current) drug therapy Diagnosis inter pretation (observable entity) Juvenile rheumatoid arthritis of multiple sites Diagno sis interpretation (observable entity) Cervicalgia Diagnosis interpretation (observable entity) Other long-term (current) drug therapy Diagnosis inter pretation (observable entity) Fibromyalgia Diagnosis interpretation (observable entity) Juvenile rheumatoid arthritis of multiple sites Diagno sis interpretation (observable entity) Fibromyalgia Diagnosis interpretation (observable entity) Other long-term (current) drug therapy Diagnosis inter pretation (observable entity) Juvenile rheumatoid arthritis of multiple sites Diagno sis interpretation (observable entity) Other rig manager (current) drug therapy Diagnosis inter pretation (observable entity) Fibromyalgia Diagnosis interpretation (observable entity) Other specified abnormal findings of blood chemistry D iagnosis interpretation (observable entity) Juvenile rheumatoid arthritis of multiple sites Diagno sis interpretation (observable entity) Fibromyalgia Diagnosis interpretation (observable entity) Other rig manager (current) drug therapy Diagnosis inter pretation (observable entity) Juvenile rheumatoid arthritis of multiple sites Diagno sis interpretation (observable entity) Fibromyalgia Diagnosis interpretation (observable entity) Lumbosacral intervertebral disc disorder Diagnosis int erpretation (observable entity) Rheumatoid arthritis, unspecified Diagnosis interpretation ( observable entity) Other rig manager (current) drug therapy Diagnosis inter pretation (observable entity) Juvenile rheumatoid arthritis of multiple sites Diagno sis interpretation (observable entity) Other rig manager (current) drug therapy Diagnosis inter pretation (observable entity) High risk drug monitoring status Problem (finding) - A ctive Mapped from [facility] Chronic Conditions table on 10/09/2014 by the ICD9 to [employer] Bulk Mapping Utility. The mapped diagnosis code was intermediate use of medication, V58.69, added by Lucho Amador MD, with responsible provider Lucho Amador MD. Onset date 03/26/2012; last addressed on 04/04/2014. Juvenile rheumatoid arthritis Problem (finding) - Acti ve Mapped from [facility] Chronic Conditions table on 09/12/2014 by the [...] s Date Provider Providers Copied on Encounter [facility], [address] [place] [address], [id number], [place] tel:[phone] [facility] No Information Wiley Osuna. [address] [place] [address], [id number], [place]. tel:[phone] [facility], [address] [place] [address], [id number], [place] tel:[phone] [facility] Unspecified juvenile rheumatoid arthritis, multiple sitesOther rig manager (current) drug therapyPain in joint Wiley Osuna. [address] [place], [place], [id number], [place]. tel:[phone] Referring Provider: Cele Choi, [address] [place] [address]. tel:[phone] [facility], [address] [place] [address], [id number], [place] tel:[phone] [facility] No Information Perry eYpez. [address] [place], [place], [id number], [place]. tel:[phone] [facility], [address] [place] [address], [id number], [place] tel:[phone] [facility] Unspecified juvenile rheumatoid arthritis, multiple sitesOther long-term (current) drug therapyPain in joint Wiley Osuna. [address] [place], [place], [id number], [place]. tel:[phone] Specialist: Sky Rodriguez MD, [address] [place] [address], [address]. tel:[phone]: Ilan Ha MD, [address] [place] [address], [address]. tel:[phone] Provider: Cele Choi, [address] tel:[phone] [facility], [address] [place] [address], [id number], [place] tel:[phone] [facility] Unspecified juvenile rheumatoid arthritis, multiple sitesOther rig manager (current) drug therapySicca syndrome, unspecified Wiley Osuna. [address] [facility] [place], [id number], [place]. tel:[phone] Specialist: Sky Rodriguez MD, [address] [place] [address], [address]. tel:[phone]: Ilan Ha MD, [address] [place] [address], [address]. tel:[phone] Provider: Cele Choi, [address] [place] [address]. tel:[phone] [facility], [address] [place] [address], [id number], [place] tel:[phone] [facility] Unspecified juvenile rheumatoid arthritis, multiple sitesSicca syndrome, unspecifiedOther long-term (current) drug therapyDiarrhea, unspecified Perry Yepez. [address] [place] [address], [id number], [place]. tel:[phone] Specialist: Sky Rodriguez MD, [address] [place] [address], [address]. tel:[phone]: Ilan Ha MD, [address] [place] [address], [address]. tel:[phone] Provider: Cele Choi, [address] [place] [address]. tel:[phone] [facility], [address] [place] [address], [id number], [place] tel:[phone] [facility] Unspecified juvenile rheumatoid arthritis, multiple sitesSicca syndrome, unspecifiedFibromyalgiaOsteoarthritisOther long-term (current) drug therapy Wiley Osuna. [address] [place] [address], [id number], [place]. tel:[phone] Specialist: Sky Rodriguez MD, [address] [place] [address], [address]. tel:[phone]: Ilan Ha MD, [address] [place] [address], [address]. tel:[phone]: Efrain Yepez MD, [address] [place] [address], [place], [address]. tel:[phone] Provider: Cele Choi, [address] tel:[phone] [facility], [address] [place] [address], [id number], [place] tel:[phone] [facility] Candidal stomatitisSicca syndrome, unspecifiedUnspecified juvenile rheumatoid arthritis, multiple sitesFibromyalgia Wiley Osuna. [address] [place] [address], [id number], [place]. tel:[phone] Specialist: Sky Rodriguez MD, [address] [place] [address], [address]. tel:[phone]: Ilan Ha MD, [address] [place] [address], [address]. tel:[phone]: Efrain Yepez MD, [facility] [address] [place], [address]. tel:[phone] Provider: Cele Choi [address] tel:[phone] [facility], [address] [place] [address], [id number], [place] tel:[phone] [facility] Unspecified juvenile rheumatoid arthritis, multiple sitesOther long-term (current) drug therapy Wiley Osuna. [address] [place] [address], [id number], [place]. tel:[phone] Specialist: Sky Rodriguez MD, [address] [place] [address], [address]. tel:[phone]: Ilan Ha MD, [address] [place] [address], [address]. tel:[phone]: Efrain Yepez MD, [facility] [address] [place], [address]. tel:[phone] Provider: Cele Choi, [address] [place] [address]. tel:[phone] [facility], [address] [place] [address], [id number], [place] tel:[phone] [facility] Unspecified juvenile rheumatoid arthritis, multiple sitesSicca syndrome, unspecifiedFibromyalgiaOther rig manager (current) drug therapyDiarrhea Perry Lucho. [address] [place] [address], [id number], [place]. tel:[phone] Specialist: Sky Rodriguez MD, [address], [place], [address]. tel:[phone]: Ilan Ha MD, [address] [place] [address], [address]. tel:[phone]: Efrain Yepez MD, [facility], [place], [address]. tel:[phone] Provider: Cele Choi, [address] [place] [address]. tel:[phone] [facility], [address] [place] [address], [id number], [place] tel:[phone] [facility] Unspecified juvenile rheumatoid arthritis, multiple sitesSicca syndrome, unspecifiedFibromyalgiaOther rig manager (current) drug therapy Morganelaine Enrrique. [address] [place] [address], [id number], [place]. tel:[phone] Specialist: Sky Rodriguez MD, [address], [place], [address]. tel:[phone]: Ilan Ha MD, [address] [place] [address], [address]. tel:[phone]: Efrain Yepez MD, [facility] [place], [address]. tel:[phone] Provider: Cele Choi, [address] [place] [address]. tel:[phone] [facility], [address] [place] [address], [id number], [place] tel:[phone] [facility] Unspecified juvenile rheumatoid arthritis, multiple sitesFibromyalgiaOther long-term (current) drug therapySicca syndrome, unspecified Luzma Osuna. [address] [place] [address], [id number], [place]. tel:[phone] Specialist: Sky Rodriguez MD, [address] [place] [address], [address]. tel:[phone]: Ilan Ha MD, [address] [place] [address], [address]. tel:[phone]: Efrain Yepez MD, [facility], [place], [address]. tel:[phone] Provider: Cele Choi, [address] [place] [address]. tel:[phone] [facility], [address] [place] [address], [id number], [place] tel:[phone] [facility] Unspecified juvenile rheumatoid arthritis, multiple sitesFibromyalgiaOther rig manager (current) drug therapyAcute sinusitisSicca syndrome Ne hollie Yepez. [address] [place] [address], [id number], [place]. tel:[phone] Specialist: Sky Rodriguez MD, [address] [place] [address], [address]. tel:[phone]: Ilan Ha MD, [address] [place] [address], [address]. tel:[phone]: Efrain Yepez MD, [facility], [place], [address]. tel:[phone] Provider: Cele Choi, [address] [place] [address]. tel:[phone] [facility], [address] [place] [address], [id number], [place] tel:[phone] [facility] Juvenile rheumatoid arthritis of multiple sitesOther rig manager (current) drug therapyFibromyalgiaSicca syndrome [facility] Bela. [address] [place] [address], [id number], [place]. tel:[phone] Specialist: Sky Rodriguez MD, [address] [place] [address], [address]. tel:[phone]: Ilan Ha MD, [address] [place] [address], [address]. tel:[phone] Specialist: Efrain Yepez MD, [facility] [address] [place], [address]. tel:[phone] Provider: Cele Choi, [address] [place] [address]. tel:[phone] [facility], [address] [place] [address], [id number], [place] tel:[phone] [facility] Juvenile rheumatoid arthritis of multiple sitesFibromyalgiaOther long-term (current) drug therapy Perry Yepez. [address] [place] [address], [id number], [place]. tel:[phone] Specialist: Sky Rodriguez MD, [address] [place] [address], [address]. tel:[phone]: Ilan Ha MD, [address] [place] [address], [address]. tel:[phone]: Efrain Yepez MD, [facility] [address], [place], [address]. tel:[phone] Provider: Cele Choi[address] tel:[phone] [facility], [address] [place] [address], [id number], [place] tel:[phone] [facility] Juvenile rheumatoid arthritis of multiple sitesFibromyalgiaOther long-term (current) drug therapyPain in joint of lt footPain in joint of rt foot Ninfa Arteaga. [address] [place] [address], [id number], [place]. tel:[phone] Specialist: Sky Rodriguez MD, [address] [facility], [place], [address]. tel:[phone]: Ilan Ha MD, [address] [place], [address]. tel:[phone]: Efrain Yepez MD, [address] [place] [address], [place], [address]. tel:[phone] Provider: Cele Choi, [address] [place] [address]. tel:[phone] [facility], [address] [place] [address], [id number], [place] tel:[phone] [facility] Juvenile rheumatoid arthritis of multiple sitesOther long-term (current) drug therapyFibromyalgiaPain in right shoulder Perry krishnan. [address] [place] [address], [id number], [place]. tel:[phone] Referring Provider: Cele Choi, [address] [place] [address]. tel:[phone] [facility], [address] [place] [address], [id number], [place] tel:[phone] [facility] Juvenile rheumatoid arthritis of multiple sitesFibromyalgiaOther long-term (current) drug therapyPain in right knee Perry Yepez. [address] [place] [address], [id number], [place]. tel:[phone] Referring Provider: Cele Choi, [address] [place] [address]. tel:[phone] [facility], [address] [place] [address], [id number], [place] tel:[phone] [facility] Juvenile rheumatoid arthritis of multiple sitesOther rig manager (current) drug therapyMedial epicondylitis, right elbowPain in right kneePain in left kneeFibromyalgia [facility]. [address] [place] [address], [id number], [place]. tel:[phone] Referring Provider: Cele Choi [address] tel:[phone] [facility], [address] [place] [address], [id number], [place] tel:[phone] [facility] Juvenile rheumatoid arthritis of multiple sitesOther long-term (current) drug therapyPain in right kneeCough [facility]. [address] [place] [address], [id number], [place]. tel:[phone] Referring Provider: Cele Choi [address] tel:[phone] [facility], [address] [place] [address], [id number], [place] tel:[phone] [facility] Juvenile rheumatoid arthritis of multiple sitesFibromyalgiaOther rig manager (current) drug therapy Jo-Ann Levy. [address] [place], [place], [id number], [place]. tel:[phone] Referring Provider: Luiza Henderson [address] tel:[phone] [facility], [address] [place] [address], [id number], [place] tel:[phone] [facility] Juvenile rheumatoid arthritis of multiple sitesCervicalgiaOther rig manager (current) drug therapyFibromyalgia Perry Yepez. [address] [place], [place], [id number], [place]. tel:[phone] Referring Provider: Cele Choi [address] tel:[phone] [facility], [address] [place] [address], [id number], [place] tel:[phone] [facility] Juvenile rheumatoid arthritis of multiple sitesFibromyalgiaOther rig manager (current) drug therapy Maximus Bela. [address] [place] [address], [id number], [place]. tel:[phone] Referring Provider: Luiza Henderson [facility] [address], [place]. tel:[phone] [facility], [address] [place] [address], [id number], [place] tel:[phone] [facility] Juvenile rheumatoid arthritis of multiple sitesOther long-term (current) drug therapyFibromyalgia Perry Yepez. [address] [place] [address], [id number], [place]. tel:[phone] Referring Provider: Cele Choi 3 [facility] [address], [place]. tel:[phone] [facility], [address] [place] [address], [id number], [place] tel:[phone] [facility] Other specified abnormal findings of blood chemistry Brandyn Levy. [address] [place] [address], [id number], [place]. tel:[phone] [facility], [address] [place] [address], [id number], [place] tel:[phone] [facility] Juvenile rheumatoid arthritis of multiple sitesFibromyalgiaOther rig manager (current) drug therapy Jo-Ann Levy. [address] [place], [place], [id number], [place]. tel:[phone] Referring Provider: Cele Choi 3 [facility] [address], [place]. tel:[phone] [facility], [address] [place] [address], [id number], [place] tel:[phone] [facility] Juvenile rheumatoid arthritis of multiple sitesFibromyalgiaLumbosacral intervertebral disc disorder [facility] Bela. [address] [place] [address], [id number], [place]. tel:[phone] Referring Provider: Cele Choi [address] tel:[phone] [facility], [address] [place] [address], [id number], [place] tel:[phone] [facility] Rheumatoid arthritis, unspecifiedOther long-term (current) drug therapy Morgan Ludwig. [address] [place] [address], [id number], [place]. tel:[phone] Referring Provider: Luiza Henderson [address] tel:[phone] [facility], [address] [place] [address], [id number], [place] tel:[phone] [facility] Juvenile rheumatoid arthritis of multiple sitesOther long-term (current) drug therapy Morgan Ludwig. [address] [place] [address], [id number], [place]. tel:[phone] Referring Provider: Luiza Henderson [address] tel:[phone] [facility], [address] [place] [address], [id number], [place] tel:[phone] [facility] No Information [facility] Bela. [address] [place] [address], [id number], [place]. tel:[phone] Referring Provider: Luiza Henderson [facility] [address], [place]. tel:[phone] [facility], [address] [place] [address], [id number], [place] tel:[phone] [facility] No Information Yancijerzy Yepez. [address] [place] [address], [id number], [place]. tel:[phone] Referring Provider: Luiza Henderson [address] tel:[phone] [facility], [address] [place] [address], [id number], [place] tel:[phone] [facility] No Information Perry Yepez. [address] [place] [address], [id number], [place]. tel:[phone] Referring Provider: Luiza Henderson [address] tel:[phone] [facility], [address] [place] [address], [id number], [place] tel:[phone] [facility] No Information Morgan Ludwig. [address] [place] [address], [id number], [place]. tel:[phone] Referring Provider: Luiza Henderson [address] tel:[phone] [facility], [address] [place] [address], [id number], [place] tel:[phone] [facility] No Information Perry Yepez. [address] [place] [address], [id number], [place]. tel:[phone] Referring Provider: Luiza Henderson [address] tel:[phone] Family History Family Member Type Diagnosis Age [...] virus, injectable, 3 years and older Fluvirin [id number] administered Source: Other Provider Influenza virus vaccine, Injection administered Source: Other Provider pneumo (2 yrs or older) (PPV23) administered Source: Source Unspecified Influenza virus vaccine, Injection administered Source: Source Unspecified pneumo (2 yrs or older) (PPV23) administered Source: Source Unspecified Payers Payer name Insurance type Covered green party ID Authorization(s ) [facility] [id number] Medicare MB [id number] Social History Type Description Quantity Date Captured [...] physician Labs ordered to check disease activity. Call [...]
--- OUTSIDE RECORDS SUMMARY | 2020-07-11 17:56 | CCD | Continuity of Care Document ---
Author Author [facility] Organization [facility] Address Unknown Phone Unavailable Care Team Providers Care Sample Room Supervisor Name Role Phone Enrrique Jama NP [...] OTC SUPPLEMENTS mvi, D3 400 units bid, [id number] units bid - Active Problems Condition Type Effective Dates (start - stop) Clinical S tatus Comments Unspecified juvenile rheumatoid arthritis, multiple si zoie Diagnosis interpretation (observable entity) Other group home (current) drug therapy Diagnosis inter pretation (observable entity) Pain in joint Diagnosis interpretation (observable entity) Unspecified juvenile rheumatoid arthritis, multiple si zoie Diagnosis interpretation (observable entity) Other buttermaker (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) drug therapy Diagnosis inter pretation (observable entity) Pain in joint Diagnosis interpretation (observable entity) Unspecified juvenile rheumatoid arthritis, multiple si zoie Diagnosis interpretation (observable entity) Other buttermaker (current) drug therapy Diagnosis inter pretation (observable entity) Sicca syndrome, unspecified Diagnosis interpretation (observable en tity) Unspecified juvenile rheumatoid arthritis, multiple si zoie Diagnosis interpretation (observable entity) Sicca syndrome, unspecified Diagnosis interpretation (observable en tity) Other buttermaker (current) drug therapy Diagnosis inter pretation (observable entity) Diarrhea, unspecified Diagnosis interpretation (observable entity) Unspecified juvenile rheumatoid arthritis, multiple si zoie Diagnosis interpretation (observable entity) Sicca syndrome, unspecified Diagnosis interpretation (observable en tity) Fibromyalgia Diagnosis interpretation (observable entity) Osteoarthritis Diagnosis interpretation (observable entity) Other buttermaker (current) drug therapy Diagnosis inter pretation (observable entity) Candidal stomatitis Diagnosis interpretation (observable entity) Sicca syndrome, unspecified Diagnosis interpretation (observable en tity) Unspecified juvenile rheumatoid arthritis, multiple si zoie Diagnosis interpretation (observable entity) Fibromyalgia Diagnosis interpretation (observable entity) Unspecified juvenile rheumatoid arthritis, multiple si zoie Diagnosis interpretation (observable entity) Other buttermaker (current) drug therapy Diagnosis inter pretation (observable entity) Unspecified juvenile rheumatoid arthritis, multiple si zoie Diagnosis interpretation (observable entity) Sicca syndrome, unspecified Diagnosis interpretation (observable en tity) Fibromyalgia Diagnosis interpretation (observable entity) Other group home (current) drug therapy Diagnosis inter pretation (observable entity) Diarrhea Diagnosis interpretation (observable entity) Unspecified juvenile rheumatoid arthritis, multiple si zoie Diagnosis interpretation (observable entity) Sicca syndrome, unspecified Diagnosis interpretation (observable en tity) Fibromyalgia Diagnosis interpretation (observable entity) Other buttermaker (current) drug therapy Diagnosis inter pretation (observable entity) Unspecified juvenile rheumatoid arthritis, multiple si zoie Diagnosis interpretation (observable entity) Fibromyalgia Diagnosis interpretation (observable entity) Other group home (current) drug therapy Diagnosis inter pretation (observable entity) Sicca syndrome, unspecified Diagnosis interpretation (observable en tity) Unspecified juvenile rheumatoid arthritis, multiple si zoie Diagnosis interpretation (observable entity) Fibromyalgia Diagnosis interpretation (observable entity) Other group home (current) drug therapy Diagnosis inter pretation (observable entity) Acute sinusitis Diagnosis interpretation (observable entity) Sicca syndrome Diagnosis interpretation (observable entity) Juvenile rheumatoid arthritis of multiple sites Diagno sis interpretation (observable entity) Other group home (current) drug therapy Diagnosis inter pretation (observable entity) Fibromyalgia Diagnosis interpretation (observable entity) Sicca syndrome Diagnosis interpretation (observable entity) Juvenile rheumatoid arthritis of multiple sites Diagno sis interpretation (observable entity) Fibromyalgia Diagnosis interpretation (observable entity) Other group home (current) drug therapy Diagnosis inter pretation (observable entity) Juvenile rheumatoid arthritis of multiple sites Diagno sis interpretation (observable entity) Fibromyalgia Diagnosis interpretation (observable entity) Other buttermaker (current) drug therapy Diagnosis inter pretation (observable entity) Pain in joint of lt foot Diagnosis interpretation (observable entit y) Pain in joint of rt foot Diagnosis interpretation (observable entit y) Juvenile rheumatoid arthritis of multiple sites Diagno sis interpretation (observable entity) Other group home (current) drug therapy Diagnosis inter pretation (observable entity) Fibromyalgia Diagnosis interpretation (observable entity) Pain in right shoulder Diagnosis interpretation (observable entity) Juvenile rheumatoid arthritis of multiple sites Diagno sis interpretation (observable entity) Fibromyalgia Diagnosis interpretation (observable entity) Other group home (current) drug therapy Diagnosis inter pretation (observable entity) Pain in right knee Diagnosis interpretation (observable entity) Juvenile rheumatoid arthritis of multiple sites Diagno sis interpretation (observable entity) Other buttermaker (current) drug therapy Diagnosis inter pretation (observable entity) Medial epicondylitis, right elbow Diagnosis interpretation ( observable entity) Pain in right knee Diagnosis interpretation (observable entity) Pain in left knee Diagnosis interpretation (observable entity) Fibromyalgia Diagnosis interpretation (observable entity) Juvenile rheumatoid arthritis of multiple sites Diagno sis interpretation (observable entity) Other group home (current) drug therapy Diagnosis inter pretation (observable entity) Pain in right knee Diagnosis interpretation (observable entity) Cough Diagnosis interpretation (observable entity) Juvenile rheumatoid arthritis of multiple sites Diagno sis interpretation (observable entity) Fibromyalgia Diagnosis interpretation (observable entity) Other group home (current) drug therapy Diagnosis inter pretation (observable entity) Juvenile rheumatoid arthritis of multiple sites Diagno sis interpretation (observable entity) Cervicalgia Diagnosis interpretation (observable entity) Other group home (current) drug therapy Diagnosis inter pretation (observable entity) Fibromyalgia Diagnosis interpretation (observable entity) Juvenile rheumatoid arthritis of multiple sites Diagno sis interpretation (observable entity) Fibromyalgia Diagnosis interpretation (observable entity) Other group home (current) drug therapy Diagnosis inter pretation (observable entity) Juvenile rheumatoid arthritis of multiple sites Diagno sis interpretation (observable entity) Other buttermaker (current) drug therapy Diagnosis inter pretation (observable entity) Fibromyalgia Diagnosis interpretation (observable entity) Other specified abnormal findings of blood chemistry D iagnosis interpretation (observable entity) Juvenile rheumatoid arthritis of multiple sites Diagno sis interpretation (observable entity) Fibromyalgia Diagnosis interpretation (observable entity) Other buttermaker (current) drug therapy Diagnosis inter pretation (observable entity) Juvenile rheumatoid arthritis of multiple sites Diagno sis interpretation (observable entity) Fibromyalgia Diagnosis interpretation (observable entity) Lumbosacral intervertebral disc disorder Diagnosis int erpretation (observable entity) Rheumatoid arthritis, unspecified Diagnosis interpretation ( observable entity) Other buttermaker (current) drug therapy Diagnosis inter pretation (observable entity) Juvenile rheumatoid arthritis of multiple sites Diagno sis interpretation (observable entity) Other buttermaker (current) drug therapy Diagnosis inter pretation (observable entity) High risk drug monitoring status Problem (finding) - A ctive Mapped from [facility] Chronic Conditions table on 10/09/2014 by the ICD9 to SNOM[employer] Bulk Mapping Utility. The mapped diagnosis code was penitentiary use of medication, V58.69, added by Lucho Amador MD, with responsible provider Lucho Amador MD. Onset date 03/26/2012; last addressed on 04/04/2014. Juvenile rheumatoid arthritis Problem (finding) - Acti ve Mapped from [facility] Chronic Conditions table on 09/12/2014 by the [...] s Date Provider Providers Copied on Encounter [facility], [address] [place] [address], [id number], [place] tel:[phone] [facility] No Information Wiley Osuna. [address] [place] [address], [id number], [place]. tel:[phone] [facility], [address] [place] [address], [id number], [place] tel:[phone] [facility] Unspecified juvenile rheumatoid arthritis, multiple sitesOther buttermaker (current) drug therapyPain in joint Wiley Osuna. [address], [place], [id number], [place]. tel:[phone] Referring Provider: Cele Choi, [address] [place] [address]. tel:[phone] [facility], [address] [place] [address], [id number], [place] tel:[phone] [facility] No Information Perry Yepez. [address] [place], [place], [id number], [place]. tel:[phone] [facility], [address] [place] [address], [id number], [place] tel:[phone] [facility] Unspecified juvenile rheumatoid arthritis, multiple sitesOther group home (current) drug therapyPain in joint Wiley Osuna. [address], [place], [id number], [place]. tel:[phone] Specialist: Sky Rodriguez MD, [address] [place] [address], [address]. tel:[phone]: Ilan Ha MD, [address] [place] [address], [address]. tel:[phone] Provider: Cele Choi, [address] tel:[phone] [facility], [address] [place] [address], [id number], [place] tel:[phone] [facility] Unspecified juvenile rheumatoid arthritis, multiple sitesOther buttermaker (current) drug therapySicca syndrome, unspecified Wiley Osuna. [address] [facility] [place], [id number], [place]. tel:[phone] Specialist: Sky Rodriguez MD, [address] [place] [address], [address]. tel:[phone]: Ilan Ha MD, [address] [place] [address], [address]. tel:[phone] Provider: Cele Choi, [address] [place] [address]. tel:[phone] [facility], [address] [place] [address], [id number], [place] tel:[phone] [facility] Unspecified juvenile rheumatoid arthritis, multiple sitesSicca syndrome, unspecifiedOther group home (current) drug therapyDiarrhea, unspecified Perry Yepez. [address] [place] [address], [id number], [place]. tel:[phone] Specialist: Sky Rodriguez MD, [address] [place] [address], [address]. tel:[phone]: Ilan Ha MD, [address] [place] [address], [address]. tel:[phone] Provider: Cele Choi, [address] [place] [address]. tel:[phone] [facility], [address] [place] [address], [id number], [place] tel:[phone] [facility] Unspecified juvenile rheumatoid arthritis, multiple sitesSicca syndrome, unspecifiedFibromyalgiaOsteoarthritisOther group home (current) drug therapy Wiley Osuna. [address] [place] [address], [id number], [place]. tel:[phone] Specialist: Sky Rodriguez MD, [address] [place] [address], [address]. tel:[phone]: Ilan Ha MD, [address] [place] [address], [address]. tel:[phone]: Efrain Yepez MD, [address] [place] [address], [place], [address]. tel:[phone] Provider: Cele Choi, [address] tel:[phone] [facility], [address] [place] [address], [id number], [place] tel:[phone] [facility] Candidal stomatitisSicca syndrome, unspecifiedUnspecified juvenile rheumatoid arthritis, multiple sitesFibromyalgia Wiley Osuna. [address] [place] [address], [id number], [place]. tel:[phone] Specialist: Sky Rodriguez MD, [address] [place] [address], [address]. tel:[phone]: Ilan Ha MD, [address] [place] [address], [address]. tel:[phone]: Efrain Yepez MD, [facility] [address] [place], [address]. tel:[phone] Provider: Cele Choi [address] tel:[phone] [facility], [address] [place] [address], [id number], [place] tel:[phone] [facility] Unspecified juvenile rheumatoid arthritis, multiple sitesOther group home (current) drug therapy Wiley Osuna. [address] [place] [address], [id number], [place]. tel:[phone] Specialist: Sky Rodriguez MD, [address] [place] [address], [address]. tel:[phone]: Ilan Ha MD, [address] [place] [address], [address]. tel:[phone]: Efrain Yepez MD, [facility] [address] [place], [address]. tel:[phone] Provider: Cele Choi, [address] [place] [address]. tel:[phone] [facility], [address] [place] [address], [id number], [place] tel:[phone] [facility] Unspecified juvenile rheumatoid arthritis, multiple sitesSicca syndrome, unspecifiedFibromyalgiaOther buttermaker (current) drug therapyDiarrhea Perry Lucho. [address] [place] [address], [id number], [place]. tel:[phone] Specialist: Sky Rodriguez MD, [address], [place], [address]. tel:[phone]: Ilan Ha MD, [address] [place] [address], [address]. tel:[phone]: Efrain Yepez MD, [facility], [place], [address]. tel:[phone] Provider: Cele Choi, [address] [place] [address]. tel:[phone] [facility], [address] [place] [address], [id number], [place] tel:[phone] [facility] Unspecified juvenile rheumatoid arthritis, multiple sitesSicca syndrome, unspecifiedFibromyalgiaOther buttermaker (current) drug therapy Morganelaine Enrrique. [address] [place] [address], [id number], [place]. tel:[phone] Specialist: Sky Rodriguez MD, [address], [place], [address]. tel:[phone]: Ilan Ha MD, [address] [place] [address], [address]. tel:[phone]: Efrain Yepez MD, [facility] [place], [address]. tel:[phone] Provider: Cele Choi, [address] [place] [address]. tel:[phone] [facility], [address] [place] [address], [id number], [place] tel:[phone] [facility] Unspecified juvenile rheumatoid arthritis, multiple sitesFibromyalgiaOther group home (current) drug therapySicca syndrome, unspecified Luzma Osuna. [address] [place] [address], [id number], [place]. tel:[phone] Specialist: Sky Rodriguez MD, [address] [place] [address], [address]. tel:[phone]: Ilan Ha MD, [address] [place] [address], [address]. tel:[phone]: Efrain Yepez MD, [facility], [place], [address]. tel:[phone] Provider: Cele Choi, [address] [place] [address]. tel:[phone] [facility], [address] [place] [address], [id number], [place] tel:[phone] [facility] Unspecified juvenile rheumatoid arthritis, multiple sitesFibromyalgiaOther buttermaker (current) drug therapyAcute sinusitisSicca syndrome Or hollie Yepez. [address] [place] [address], [id number], [place]. tel:[phone] Specialist: Sky Rodriguez MD, [address] [place] [address], [address]. tel:[phone]: Ilan Ha MD, [address] [place] [address], [address]. tel:[phone]: Efrain Yepez MD, [facility], [place], [address]. tel:[phone] Provider: Cele Choi, [address] [place] [address]. tel:[phone] [facility], [address] [place] [address], [id number], [place] tel:[phone] [facility] Juvenile rheumatoid arthritis of multiple sitesOther buttermaker (current) drug therapyFibromyalgiaSicca syndrome [facility]. [address] [place] [address], [id number], [place]. tel:[phone] Specialist: Sky Rodriguez MD, [address] [place] [address], [address]. tel:[phone]: Ilan Ha MD, [address] [place] [address], [address]. tel:[phone] Specialist: Efrain Yepez MD, [facility] [address] [place], [address]. tel:[phone] Provider: Cele Choi, [address] [place] [address]. tel:[phone] [facility], [address] [place] [address], [id number], [place] tel:[phone] [facility] Juvenile rheumatoid arthritis of multiple sitesFibromyalgiaOther group home (current) drug therapy Perry Yepez. [address] [place] [address], [id number], [place]. tel:[phone] Specialist: Sky Rodriguez MD, [address] [place] [address], [address]. tel:[phone]: Ilan Ha MD, [address] [place] [address], [address]. tel:[phone]: Efrain Yepez MD, [facility] [address] [place], [address]. tel:[phone] Provider: Cele Choi[address] tel:[phone] [facility], [address] [place] [address], [id number], [place] tel:[phone] [facility] Juvenile rheumatoid arthritis of multiple sitesFibromyalgiaOther group home (current) drug therapyPain in joint of lt footPain in joint of rt foot Ninfa Arteaga. [address] [place] [address], [id number], [place]. tel:[phone] Specialist: Sky Rodriguez MD, [address] [facility], [place], [address]. tel:[phone]: Ilan Ha MD, [address] [place], [address]. tel:[phone]: Efrain Yepez MD, [address] [place] [address], [place], [address]. tel:[phone] Provider: Cele Choi, [address] [place] [address]. tel:[phone] [facility], [address] [place] [address], [id number], [place] tel:[phone] [facility] Juvenile rheumatoid arthritis of multiple sitesOther group home (current) drug therapyFibromyalgiaPain in right shoulder Perry krishnan. [address] [place] [address], [id number], [place]. tel:[phone] Referring Provider: Cele Choi, [address] [place] [address]. tel:[phone] [facility], [address] [place] [address], [id number], [place] tel:[phone] [facility] Juvenile rheumatoid arthritis of multiple sitesFibromyalgiaOther group home (current) drug therapyPain in right knee Perry Yepez. [address] [place] [address], [id number], [place]. tel:[phone] Referring Provider: Cele Choi, [address] [place] [address]. tel:[phone] [facility], [address] [place] [address], [id number], [place] tel:[phone] [facility] Juvenile rheumatoid arthritis of multiple sitesOther buttermaker (current) drug therapyMedial epicondylitis, right elbowPain in right kneePain in left kneeFibromyalgia [facility]. [address] [place] [address], [id number], [place]. tel:[phone] Referring Provider: Cele Choi [address] tel:[phone] [facility], [address] [place] [address], [id number], [place] tel:[phone] [facility] Juvenile rheumatoid arthritis of multiple sitesOther group home (current) drug therapyPain in right kneeCough [facility]. [address] [place] [address], [id number], [place]. tel:[phone] Referring Provider: Cele Choi [address] tel:[phone] [facility], [address] [place] [address], [id number], [place] tel:[phone] [facility] Juvenile rheumatoid arthritis of multiple sitesFibromyalgiaOther buttermaker (current) drug therapy Jo-Ann Levy. [address] [place], [place], [id number], [place]. tel:[phone] Referring Provider: Luiza Henderson [address] tel:[phone] [facility], [address] [place] [address], [id number], [place] tel:[phone] [facility] Juvenile rheumatoid arthritis of multiple sitesCervicalgiaOther buttermaker (current) drug therapyFibromyalgia Perry Yepez. [address] [place], [place], [id number], [place]. tel:[phone] Referring Provider: Cele Choi [address] tel:[phone] [facility], [address] [place] [address], [id number], [place] tel:[phone] [facility] Juvenile rheumatoid arthritis of multiple sitesFibromyalgiaOther buttermaker (current) drug therapy Maximus Bela. [address] [place] [address], [id number], [place]. tel:[phone] Referring Provider: Luiza Henderson [facility] [address], [place]. tel:[phone] [facility], [address] [place] [address], [id number], [place] tel:[phone] [facility] Juvenile rheumatoid arthritis of multiple sitesOther group home (current) drug therapyFibromyalgia Perry Yepez. [address] [place] [address], [id number], [place]. tel:[phone] Referring Provider: Cele Choi 3 [facility] [address], [place]. tel:[phone] [facility], [address] [place] [address], [id number], [place] tel:[phone] [facility] Other specified abnormal findings of blood chemistry Brandyn Levy. [address] [place] [address], [id number], [place]. tel:[phone] [facility], [address] [place] [address], [id number], [place] tel:[phone] [facility] Juvenile rheumatoid arthritis of multiple sitesFibromyalgiaOther buttermaker (current) drug therapy Jo-Ann Levy. [address] [place], [place], [id number], [place]. tel:[phone] Referring Provider: Cele Choi [facility] [address], [place]. tel:[phone] [facility], [address] [place] [address], [id number], [place] tel:[phone] [facility] Juvenile rheumatoid arthritis of multiple sitesFibromyalgiaLumbosacral intervertebral disc disorder [facility] [place]a. [address] [place] [address], [id number], [place]. tel:[phone] Referring Provider: Cele Choi [address] tel:[phone] [facility], [address] [place] [address], [id number], [place] tel:[phone] [facility] Rheumatoid arthritis, unspecifiedOther group home (current) drug therapy Morgan Ludwig. [address] [place] [address], [id number], [place]. tel:[phone] Referring Provider: Luiza Henderson [address] tel:[phone] [facility], [address] [place] [address], [id number], [place] tel:[phone] [facility] Juvenile rheumatoid arthritis of multiple sitesOther group home (current) drug therapy Morgan Ludwig. [address] [place] [address], [id number], [place]. tel:[phone] Referring Provider: Luiza Henderson [address] tel:[phone] [facility], [address] [place] [address], [id number], [place] tel:[phone] [facility] No Information [facility] [place] [address] [place] [address], [id number], [place]. tel:[phone] Referring Provider: Luiza Henderson [facility] [address], [place]. tel:[phone] [facility], [address] [place] [address], [id number], [place] tel:[phone] [facility] No Information Yancijerzy Yepez. [address] [place] [address], [id number], [place]. tel:[phone] Referring Provider: Luiza Henderson [address] tel:[phone] [facility], [address] [place] [address], [id number], [place] tel:[phone] [facility] No Information Perry Yepez. [address] [place] [address], [id number], [place]. tel:[phone] Referring Provider: Luiza Henderson [address] tel:[phone] [facility], [address] [place] [address], [id number], [place] tel:[phone] [facility] No Information Morgan Ludwig. [address] [place] [address], [id number], [place]. tel:[phone] Referring Provider: Luiza Henderson [address] tel:[phone] [facility], [address] [place] [address], [id number], [place] tel:[phone] [facility] No Information Perry Yepez. [address] [place] [address], [id number], [place]. tel:[phone] Referring Provider: Luiza Henderson [address] tel:[phone] Family History Family Member Type Diagnosis Age [...] virus, injectable, 3 years and older Fluvirin [id number] administered Source: Other Provider Influenza virus vaccine, Injection administered Source: Other Provider pneumo (2 yrs or older) (PPV23) administered Source: Source Unspecified Influenza virus vaccine, Injection administered Source: Source Unspecified pneumo (2 yrs or older) (PPV23) administered Source: Source Unspecified Payers Payer name Insurance type Covered alliance party ID Authorization(s ) [facility] [id number] Medicare MB [id number] Social History Type Description Quantity Date Captured [...]
--- OUTSIDE RECORDS SUMMARY | 2020-07-11 18:08 | CCD ---
Author Author [facility] Address Unknown Phone Unavailable Care Team Providers Care Deblocker Name Role Phone Ryan NEWELL MD Unavailable Unavailable Ryan NEWELL MD Unavailable Unavailable Ryan NEWELL MD Unavailable Unavailable Ryan NEWELL MD Unavailable Unavailable Ryan NEWELL MD Unavailable Unavailable Ryan NEWELL MD Unavailable Unavailable Ryan NEWELL MD Unavailable Unavailable Ryan NEWELL MD Unavailable Unavailable Ryan NWEELL MD Unavailable Unavailable Ryan NEWELL MD Unavailable Unavailable Ryan NEWELL MD Unavailable Unavailable Ryan NEWELL MD Unavailable Unavailable Ryan NEWELL MD Unavailable Unavailable Ryan NEWELL MD Unavailable Unavailable Ryan NEWELL MD Unavailable Unavailable Ryan NEWELL MD Unavailable Unavailable Ryan NEWELL MD Unavailable Unavailable Ryan NEWELL MD Unavailable Unavailable Ryan NEWELL MD Unavailable Unavailable Ryan NEWELL MD Unavailable Unavailable Ryan NEWELL MD Unavailable Unavailable Ryan NEWELL MD Unavailable Unavailable Ryan NEWELL MD Unavailable Unavailable Ryan NEWELL MD Unavailable Unavailable Ryan NEWELL MD Unavailable Unavailable Ryan NEWELL MD Unavailable Unavailable SETTERRyan MD Unavailable Unavailable SETTERRyan MD Unavailable Unavailable SETTERRyan MD Unavailable Unavailable SETTERRyan MD Unavailable Unavailable SETTER, Ryan PURVIS MD Unavailable Unavailable SETTER, Ryan PURVIS MD Unavailable Unavailable SETTER, Ryan PURVIS MD Unavailable Unavailable SETTERRyan MD Unavailable Unavailable SETTERRyan MD Unavailable Unavailable SETTER, Ryan PURVIS MD Unavailable Unavailable SETTER, Ryan PURVIS MD Unavailable Unavailable SETTER, Ryan PURVIS MD Unavailable Unavailable SETTER, Ryan PURVIS MD Unavailable Unavailable SETTER, Ryan PURVIS MD Unavailable Unavailable SETTER, Ryan PURVIS MD Unavailable Unavailable SETTER, Ryan PURVIS MD Unavailable Unavailable SETTER, Ryan PURVIS MD Unavailable Unavailable SETTER, Ryan PURVIS MD Unavailable Unavailable SETTER, Ryan PURVIS MD Unavailable Unavailable SETTER, Ryan PURVIS MD Unavailable Unavailable SETTERRyan MD Unavailable Unavailable SETTERRyan MD Unavailable Unavailable SETTER, Ryan PURVIS MD Unavailable Unavailable SETTER, Ryan PURVIS MD Unavailable Unavailable SETTERRyan MD Unavailable Unavailable SETTERRyan MD Unavailable Unavailable SETTERRyan MD Unavailable Unavailable SETTERRyan MD Unavailable Unavailable SETTERRyan MD Unavailable Unavailable SETTERRyan MD Unavailable Unavailable SETTERRyan MD Unavailable Unavailable SETTERRyan MD Unavailable Unavailable SETTERRyan MD Unavailable Unavailable SETTERRyan MD Unavailable Unavailable SETTERRyan MD Unavailable Unavailable SETTERRyan MD Unavailable Unavailable SETTERRyan MD Unavailable Unavailable SETTERRyan MD Unavailable Unavailable SETTERRyan MD Unavailable Unavailable SETTERRyan MD Unavailable Unavailable SETTERRyan MD Unavailable Unavailable SETTERRyan MD Unavailable Unavailable SETTERRyan MD Unavailable Unavailable SETTERRyan MD Unavailable Unavailable SETTERRyan MD Unavailable Unavailable SETTERRyan MD Unavailable Unavailable SETTERRyan MD Unavailable Unavailable SETTERRyan MD Unavailable Unavailable SETTERRyan MD Unavailable Unavailable SETTERRyan MD Unavailable Unavailable SETTERRyan MD Unavailable Unavailable SETTERRyan MD Unavailable Unavailable SETTERRyan MD Unavailable Unavailable SETTERRyan MD Unavailable Unavailable SETTERRyan MD Unavailable Unavailable SETTERRyan MD Unavailable Unavailable SETTER, Ryan PURVIS MD Unavailable Unavailable SETTER, Ryan PURVIS MD Unavailable Unavailable SETTER, Ryan PURVIS MD Unavailable Unavailable SETTER, Ryan PURVIS MD Unavailable Unavailable SETTER, Ryan PURVIS MD Unavailable Unavailable SETTER, Ryan PURVIS MD Unavailable Unavailable SETTER, Ryan PURVIS MD Unavailable Unavailable SETTER, Ryan PURVIS MD Unavailable Unavailable SETTER, Ryan PURVIS MD Unavailable Unavailable SETTER, Ryan PURVIS MD Unavailable Unavailable SETTER, Ryan PURVIS MD Unavailable Unavailable SETTER, Ryan PURVIS MD Unavailable Unavailable SETTER, Ryan PURVIS MD Unavailable Unavailable SETTER, Ryan PURVIS MD Unavailable Unavailable SETTER, Ryan PURVIS MD Unavailable Unavailable SETTER, Ryan PURVIS MD Unavailable Unavailable SETTER, Ryan PURVIS MD Unavailable Unavailable SETTER, Ryan PURVIS MD Unavailable Unavailable SETTER, Ryan PURVIS MD Unavailable Unavailable SETTER, Ryan PURVIS MD Unavailable Unavailable SETTER, Ryan PURVIS MD Unavailable Unavailable SETTER, Ryan PURVIS MD Unavailable Unavailable SETTER, Ryan PURVIS MD Unavailable Unavailable SETTER, Ryan PURVIS MD Unavailable Unavailable SETTER, Ryan PURVIS MD Unavailable Unavailable Wall MEDIA MARKETING MANAGER, A Hyun Unavailable [phone] Wall MEDIA MARKETING MANAGER, A Hyun Unavailable [phone] Wall MEDIA MARKETING MANAGER, A Hyun Unavailable [phone] Wall MEDIA MARKETING MANAGER, A Hyun Unavailable [phone] Wall MEDIA MARKETING MANAGER, A Hyun Unavailable [phone] Sunita Sen MD Unavailable Unavailable Sunita Sen MD Unavailable Unavailable Al Sunita Esparza MD Unavailable Unavailable Sunita Sen MD Unavailable Unavailable Al Sunita Esparza MD Unavailable Unavailable Sunita Sen MD Unavailable Unavailable Al Sunita Esparza MD Unavailable Unavailable Sunita Sen MD Unavailable Unavailable Sunita Sen MD Unavailable Unavailable Sunita Sen MD Unavailable Unavailable Sunita Sen MD Unavailable Unavailable Sunita Sen MD Unavailable Unavailable Sunita Sen MD Unavailable Unavailable Sunita Sen MD Unavailable Unavailable Sunita Sen MD Unavailable Unavailable Sunita Sen MD Unavailable Unavailable Sunita Sen MD Unavailable Unavailable Al Mudamgha, A Ali MD Unavailable Unavailable Al Mudamgha, A Ali MD Unavailable Unavailable Al Mudamgha, A Ali MD Unavailable Unavailable Al Mudamgha, A Ali MD Unavailable Unavailable Al Mudamgha, A Ali MD Unavailable Unavailable Al Mudamgha, A Ali MD Unavailable Unavailable Al Mudamgha, A Ali MD Unavailable Unavailable Al Mudamgha, A Ali MD Unavailable Unavailable Al Mudamgha, A Ali MD Unavailable Unavailable Al Mudamgha, A Ali MD Unavailable Unavailable Al Mudamgha, A Ali MD Unavailable Unavailable Al Mudamgha, A Ali MD Unavailable Unavailable Al Mudamgha, A Ali MD Unavailable Unavailable Al Mudamgha, A Ali MD Unavailable Unavailable Al Mudamgha, A Ali MD Unavailable Unavailable Al Mudamgha, A Ali MD Unavailable Unavailable Al Mudamgha, A Ali MD Unavailable Unavailable Al Mudamgha, A Ali MD Unavailable Unavailable Al Mudamgha, A Ali MD Unavailable Unavailable Al Mudamgha, A Ali MD Unavailable Unavailable Al Mudamgha, A Ali MD Unavailable Unavailable Al Mudamgha, A Ali MD Unavailable Unavailable Al Mudamgha, A Ali MD Unavailable Unavailable Al Mudamgha, A Ali MD Unavailable Unavailable Al Mudamgha, A Ali MD Unavailable Unavailable Al Mudamgha, A Ali MD Unavailable Unavailable Al Mudamgha, A Ali MD Unavailable Unavailable Al Mudamgha, A Ali MD Unavailable Unavailable Al Mudamgha, A Ali MD Unavailable Unavailable Al Mudamgha, A Ali MD Unavailable Unavailable Al Mudamgha, A Ali MD Unavailable Unavailable Al Mudamgha, A Ali MD Unavailable Unavailable Al Mudamgha, A Ali MD Unavailable Unavailable Al Mudamgha, A Ali MD Unavailable Unavailable Al Mudamgha, A Ali MD Unavailable Unavailable Al Mudamgha, A Ali MD Unavailable Unavailable Al Mudamgha, A Ali MD Unavailable Unavailable Al Mudamgha, A Ali MD Unavailable Unavailable Al Mudamgha, A Ali MD Unavailable Unavailable Al Mudamgha, A Ali MD Unavailable Unavailable Al Mudamgha, A Ali MD Unavailable Unavailable Al Mudamgha, A Ali MD Unavailable Unavailable Al Mudamgha, A Ali MD Unavailable Unavailable Al Mudamgha, A Ali MD Unavailable Unavailable Al Mudamgha, A Ali MD Unavailable Unavailable Al Mudamgha, A Ali MD Unavailable Unavailable Al Mudamgha, Sunita Foy MD Unavailable Unavailable Al Mudamgha, Sunita Foy MD Unavailable Unavailable Al Mudamgha, Sunita Foy MD Unavailable Unavailable Al Mudamgha, Sunita Foy MD Unavailable Unavailable Al Mudamgha, Sunita Foy MD Unavailable Unavailable Al Mudamgha, Sunita Foy MD Unavailable Unavailable Al Mudamgha, Sunita Foy MD Unavailable Unavailable Al Mudamgha, Sunita Foy MD Unavailable Unavailable Al Mudamgha, Sunita Foy MD Unavailable Unavailable Al Mudamgha, Sunita Foy MD Unavailable Unavailable Al Mudamgha, Sunita Foy MD Unavailable Unavailable Al Mudamgha, Sunita Foy MD Unavailable Unavailable Al Mudamgha, Sunita Foy MD Unavailable Unavailable Al Mudamgha, Sunita Foy MD Unavailable Unavailable Al Mudamgha, Sunita Foy MD Unavailable Unavailable Al Mudamgha, Sunita Foy MD Unavailable Unavailable Al Mudamgha, Sunita Foy MD Unavailable Unavailable Jumalon, M Wendi MEDIA MARKETING MANAGER Unavailable Unavailable Jumalon, M Wendi MEDIA MARKETING MANAGER Unavailable Unavailable Jumalon, M Wendi MEDIA MARKETING MANAGER Unavailable Unavailable Jumalon, M Wendi MEDIA MARKETING MANAGER Unavailable Unavailable Jumalon, M Wendi MEDIA MARKETING MANAGER Unavailable Unavailable Jumalon, M Wendi MEDIA MARKETING MANAGER Unavailable Unavailable Jumalon, M Wendi MEDIA MARKETING MANAGER Unavailable Unavailable Jumalon, M Wendi MEDIA MARKETING MANAGER Unavailable Unavailable Jumalon, M Wendi MEDIA MARKETING MANAGER Unavailable Unavailable Jumalon, M Wendi MEDIA MARKETING MANAGER Unavailable Unavailable Jumalon, M Wendi MEDIA MARKETING MANAGER Unavailable Unavailable Jumalon, M Wendi MEDIA MARKETING MANAGER Unavailable Unavailable Jumalon, M Wendi MEDIA MARKETING MANAGER Unavailable Unavailable Jumalon, M Wendi MEDIA MARKETING MANAGER Unavailable Unavailable Jumalon, M Wendi MEDIA MARKETING MANAGER Unavailable Unavailable Jumalon, M Wendi MEDIA MARKETING MANAGER Unavailable Unavailable Jumalon, M Wendi MEDIA MARKETING MANAGER Unavailable Unavailable Jumalon, M Wendi MEDIA MARKETING MANAGER Unavailable Unavailable Jumalon, M Wendi MEDIA MARKETING MANAGER Unavailable Unavailable Jumalon, M Wendi MEDIA MARKETING MANAGER Unavailable Unavailable Jumalon, M Wendi MEDIA MARKETING MANAGER Unavailable Unavailable Jumalon, M Wendi MEDIA MARKETING MANAGER Unavailable Unavailable Jumalon, M Wendi MEDIA MARKETING MANAGER Unavailable Unavailable Jumalon, M Wendi MEDIA MARKETING MANAGER Unavailable Unavailable Jumalon, M Wendi MEDIA MARKETING MANAGER Unavailable Unavailable Jumalon, M Wendi MEDIA MARKETING MANAGER Unavailable Unavailable Jumalon, M Wendi MEDIA MARKETING MANAGER Unavailable Unavailable Jumalon, M Wendi MEDIA MARKETING MANAGER Unavailable Unavailable Berlin, Lexa PA Unavailable Unavailable Berlin, Lexa PA Unavailable Unavailable Berlin, Lexa PA Unavailable Unavailable Berlin, Lexa PA Unavailable Unavailable Berlin, Lexa PA Unavailable Unavailable Berlin, Lexa PA Unavailable Unavailable Berlin, Lexa PA Unavailable Unavailable Berlin, Lexa PA Unavailable Unavailable Berlin, Lexa PA Unavailable Unavailable Berlin, Lexa PA Unavailable Unavailable Berlin, Lexa PA Unavailable Unavailable Berlin, Lexa PA Unavailable Unavailable Berlin, Lexa PA Unavailable Unavailable Berlin, Lexa PA Unavailable Unavailable Berlin, Lexa PA Unavailable Unavailable Berlin, Lexa PA Unavailable Unavailable Berlin, Lexa PA Unavailable Unavailable Berlin, Lexa PA Unavailable Unavailable Berlin, Lexa PA Unavailable Unavailable Berlin, Lexa PA Unavailable Unavailable Berlin, Lexa PA Unavailable Unavailable Berlin, Lexa PA Unavailable Unavailable Berlin, Lexa PA Unavailable Unavailable Berlin, Lexa PA Unavailable Unavailable Berlin, Lexa PA Unavailable Unavailable Berlin, Lexa PA Unavailable Unavailable Berlin, Lexa PA Unavailable Unavailable Berlin, Lexa PA Unavailable Unavailable Berlin, Lexa PA Unavailable Unavailable Berlin, Lexa PA Unavailable Unavailable Berlin, Lexa PA Unavailable Unavailable Berlin, Lexa PA Unavailable Unavailable Berlin, Lexa PA Unavailable Unavailable Berlin, Lexa PA Unavailable Unavailable Berlin, Lexa PA Unavailable Unavailable Berlin, Lexa PA Unavailable Unavailable Berlin, Lexa PA Unavailable Unavailable Berlin, Lexa PA Unavailable Unavailable Berlin, Lexa PA Unavailable Unavailable Berlin, Lexa PA Unavailable Unavailable Berlin, Lexa PA Unavailable Unavailable [place], Lexa PA Unavailable Unavailable Berlin, Lexa PA Unavailable Unavailable Berlin, Lexa PA Unavailable Unavailable [place], Lexa PA Unavailable Unavailable Berlin, Lexa PA Unavailable Unavailable Berlin, Lexa PA Unavailable Unavailable Berlin, Lexa PA Unavailable Unavailable Berlin, Lexa PA Unavailable Unavailable MEDENT_806, NA Unavailable Unavailable Tucker, Esau Norma RPA Unavailable Unavailable Tucker, [place] Norma RPA Unavailable Unavailable Tucker, [place] Norma RPA Unavailable Unavailable Tucker, [place] Norma RPA Unavailable Unavailable Tucker, [place] Norma RPA Unavailable Unavailable Tucker, Esau Norma RPA Unavailable Unavailable Tucker, Esau Norma RPA Unavailable Unavailable Tucker, [place] Norma RPA Unavailable Unavailable Tucker, [place] Norma RPA Unavailable Unavailable Tucker, Esau Norma RPA Unavailable Unavailable Tucker, [place] Norma RPA Unavailable Unavailable Tucker, [place] Norma RPA Unavailable Unavailable Tucker, [place] Norma RPA Unavailable Unavailable Tucker, Esau Norma RPA Unavailable Unavailable Tucker, [place] Norma RPA Unavailable Unavailable Tucker, [place] Norma RPA Unavailable Unavailable Tucker, [place] Norma RPA Unavailable Unavailable Tucker, Esau Norma RPA Unavailable Unavailable Tucker, Esau Norma RPA Unavailable Unavailable Tucker, [place] Norma RPA Unavailable Unavailable Tucker, Esau Norma RPA Unavailable Unavailable Tucker, Esau Norma RPA Unavailable Unavailable Tucker, Esau Norma RPA Unavailable Unavailable MARK-CAROLEE, GERARDO DO Unavailable Unavailable MARK-CAROLEE, GERARDO DO Unavailable Unavailable MARK-CAROLEE, GERARDO DO Unavailable Unavailable MARK-CAROLEE, GERARDO DO Unavailable Unavailable MARK-CAROLEE, GERARDO DO Unavailable Unavailable MARK-CAROLEE, GERARDO DO Unavailable Unavailable MARK-CAROLEE, GERARDO DO Unavailable Unavailable MARK-CAROLEE, GERARDO DO Unavailable Unavailable MARK-CAROLEE, GERARDO DO Unavailable Unavailable MARK-CAROLEE, GERARDO DO Unavailable Unavailable MARK-CAROLEE, GERARDO DO Unavailable Unavailable MARK-CAROLEE, GERARDO DO Unavailable Unavailable MARK-CAROLEE, GERARDO DO Unavailable Unavailable MARK-CAROLEE, GERRADO DO Unavailable Unavailable MARK-CAROLEE, GERARDO DO Unavailable Unavailable MARK-CAROLEE, GERARDO DO Unavailable Unavailable MARK-CAROLEE, GERARDO DO Unavailable Unavailable MARK-CAROLEE, GERARDO DO Unavailable Unavailable MARK-CAROLEE, GERARDO DO Unavailable Unavailable MARK-CAROLEE, GERARDO DO Unavailable Unavailable MARK-CAROLEE, GERARDO DO Unavailable Unavailable MARK-CAROLEE, GERARDO DO Unavailable Unavailable MARK-CAROLEE, GERARDO DO Unavailable Unavailable MARK-CAROLEE, GERARDO DO Unavailable Unavailable MARK-CAROLEE, GERARDO DO Unavailable Unavailable MARK-CAROLEE, GERARDO DO Unavailable Unavailable MARK-CAROLEE, GERARDO DO Unavailable Unavailable MARK-CAROLEE, GERARDO DO Unavailable Unavailable MARK-CAROLEE, GERARDO DO Unavailable Unavailable MARK-CAROLEE, GERARDO DO Unavailable Unavailable MARK-CAROLEE, GERARDO DO Unavailable Unavailable MARK-CAROLEE, GERARDO DO Unavailable Unavailable MARK-CAROLEE, GERARDO DO Unavailable Unavailable MARK-CAROLEE, GERARDO DO Unavailable Unavailable MARK-CAROLEE, GERARDO DO Unavailable Unavailable MARK-CAROLEE, GERARDO DO Unavailable Unavailable MARK-CAROLEE, GERARDO DO Unavailable Unavailable MARK-CAROLEE, GERARDO DO Unavailable Unavailable MARK-CAROLEE, GERARDO DO Unavailable Unavailable MARK-CAROLEE, GERARDO DO Unavailable Unavailable MARK-CAROLEE, GERARDO DO Unavailable Unavailable MARK-CAROLEE, GERARDO DO Unavailable Unavailable MARK-CAROLEE, GERARDO DO Unavailable Unavailable MARK-CAROLEE, GERARDO DO Unavailable Unavailable MARK-CAROLEE, GERARDO DO Unavailable Unavailable MARK-CAROLEE, GERARDO DO Unavailable Unavailable MARK-CAROLEE, GERARDO DO Unavailable Unavailable MARK-CAROLEE, GERARDO DO Unavailable Unavailable MARK-CAROLEE, GERARDO DO Unavailable Unavailable MARK-CAROLEE, GERARDO DO Unavailable Unavailable MARK-CAROLEE, GERARDO DO Unavailable Unavailable MARK-CAROLEE, GERARDO DO Unavailable Unavailable MARK-CAROLEE, GERARDO DO Unavailable Unavailable MARK-CAROLEE, GERARDO DO Unavailable Unavailable MARK-CAROLEE, GERARDO DO Unavailable Unavailable MARK-CAROLEE, GERARDO DO Unavailable Unavailable MARK-CAROLEE, GERARDO DO Unavailable Unavailable MARK-CAROLEE, GERARDO DO Unavailable Unavailable MARK-CAROLEE, GERARDO DO Unavailable Unavailable MARK-CAROLEE, GERARDO DO Unavailable Unavailable MARK-CAROLEE, GERARDO DO Unavailable Unavailable MARK-CAROLEE, GERARDO DO Unavailable Unavailable MARK-CAROLEE, GERARDO DO Unavailable Unavailable MARK-CAROLEE, GERARDO DO Unavailable Unavailable MARK-CAROLEE, GERARDO DO Unavailable Unavailable MARK-CAROLEE, GERARDO DO Unavailable Unavailable MARK-CAROLEE, GERARDO DO Unavailable Unavailable MARK-CAROLEE, GERARDO DO Unavailable Unavailable MARK-CAROLEE, GERARDO DO Unavailable Unavailable MARK-CAROLEE, GERARDO DO Unavailable Unavailable MARK-CAROLEE, GERARDO DO Unavailable Unavailable MARK-CAROLEE, GERARDO DO Unavailable Unavailable MARK-CAROLEE, GERARDO DO Unavailable Unavailable MARK-CAROLEE, GERARDO DO Unavailable Unavailable MARK-CAROLEE, GERARDO DO Unavailable Unavailable MARK-CAROLEE, GERARDO DO Unavailable Unavailable MARK-CAROLEE, GERARDO DO Unavailable Unavailable MARK-CAROLEE, GERARDO DO Unavailable Unavailable MARK-CAROLEE, GERARDO DO Unavailable Unavailable MARK-CAROLEE, GERARDO DO Unavailable Unavailable MARK-CAROLEE, GERARDO DO Unavailable Unavailable MARK-CAROLEE, GERARDO DO Unavailable Unavailable Jumalon, M Wendi MEDIA MARKETING MANAGER Unavailable Unavailable Jumalon, M Wendi MEDIA MARKETING MANAGER Unavailable Unavailable Jumalon, M Wendi MEDIA MARKETING MANAGER Unavailable Unavailable Jumalon, M Wendi MEDIA MARKETING MANAGER Unavailable Unavailable Jumalon, M Wendi MEDIA MARKETING MANAGER Unavailable Unavailable Jumalon, M Wendi MEDIA MARKETING MANAGER Unavailable Unavailable Jumalon, M Wendi MEDIA MARKETING MANAGER Unavailable Unavailable Jumalon, M Wendi MEDIA MARKETING MANAGER Unavailable Unavailable Jumalon, M Wendi MEDIA MARKETING MANAGER Unavailable Unavailable Jumalon, M Wendi MEDIA MARKETING MANAGER Unavailable Unavailable Jumalon, M Wendi MEDIA MARKETING MANAGER Unavailable Unavailable Jumalon, M Wendi MEDIA MARKETING MANAGER Unavailable Unavailable Jumalon, M Wendi MEDIA MARKETING MANAGER Unavailable Unavailable Jumalon, M Wendi MEDIA MARKETING MANAGER Unavailable Unavailable Jumalon, M Wendi MEDIA MARKETING MANAGER Unavailable Unavailable Jumalon, M Wendi MEDIA MARKETING MANAGER Unavailable Unavailable Jumalon, M Wendi MEDIA MARKETING MANAGER Unavailable Unavailable Jumalon, M Wendi MEDIA MARKETING MANAGER Unavailable Unavailable Jumalon, M Wendi MEDIA MARKETING MANAGER Unavailable Unavailable Jumalon, M Wendi MEDIA MARKETING MANAGER Unavailable Unavailable Jumalon, M Wendi MEDIA MARKETING MANAGER Unavailable Unavailable Jumalon, M Wendi MEDIA MARKETING MANAGER Unavailable Unavailable Jumalon, M Wendi MEDIA MARKETING MANAGER Unavailable Unavailable Jumalon, M Wendi MEDIA MARKETING MANAGER Unavailable Unavailable Jumalon, M Wendi MEDIA MARKETING MANAGER Unavailable Unavailable Jumalon, M Wendi MEDIA MARKETING MANAGER Unavailable Unavailable Jumalon, M Wendi MEDIA MARKETING MANAGER Unavailable Unavailable Lucho Amador MD Unavailable Unavailable Lucho Amador MD Unavailable Unavailable Lucho Amador MD Unavailable Unavailable Lucho Amador MD Unavailable Unavailable Lucho Amador MD Unavailable Unavailable Lucho Amador MD Unavailable Unavailable Lucho Amador MD Unavailable Unavailable Lucho Amador MD Unavailable Unavailable MtanosLucho MD Unavailable Unavailable MtanosLucho MD Unavailable Unavailable MtanosLucho MD Unavailable Unavailable MtanosLucho MD Unavailable Unavailable MtanosLucho MD Unavailable Unavailable MtanosLucho MD Unavailable Unavailable MtanosLucho MD Unavailable Unavailable MtanosLucho MD Unavailable Unavailable MtanosLucho MD Unavailable Unavailable MtanosLucho MD Unavailable Unavailable MtanosLucho MD Unavailable Unavailable MtanosLucho MD Unavailable Unavailable MtanosLucho MD Unavailable Unavailable MtanosLucho MD Unavailable Unavailable MtanosLucho MD Unavailable Unavailable MtanosLucho MD Unavailable Unavailable MtanosLucho MD Unavailable Unavailable MtanosLucho MD Unavailable Unavailable MtanosLucho MD Unavailable Unavailable MtanosLucho MD Unavailable Unavailable MtanosLucho MD Unavailable Unavailable MtanosLucho MD Unavailable Unavailable MtanosLucho MD Unavailable Unavailable MtanosLucho MD Unavailable Unavailable MtanoLucho bertrand MD Unavailable Unavailable MtanoLucho bertrand MD Unavailable Unavailable MtanosLucho MD Unavailable Unavailable MtanosLucho MD Unavailable Unavailable MtanosLucho MD Unavailable Unavailable MtanosLucho MD Unavailable Unavailable MtanosLucho MD Unavailable Unavailable MtanosLucho MD Unavailable Unavailable MtanoLucho bertrand MD Unavailable Unavailable MtanosLucho MD Unavailable Unavailable MtanosLucho MD Unavailable Unavailable MtanosLucho MD Unavailable Unavailable MtanosLucho MD Unavailable Unavailable MtanosLucho MD Unavailable Unavailable MtanosLucho MD Unavailable Unavailable MtanoLucho bertrand MD Unavailable Unavailable MtanoLucho bertrand MD Unavailable Unavailable MtanosLucho MD Unavailable Unavailable MtanosLucho MD Unavailable Unavailable MtanosLucho MD Unavailable Unavailable MtanosLucho MD Unavailable Unavailable MtanosLucho MD Unavailable Unavailable MtanosLucho MD Unavailable Unavailable MtanosLucho MD Unavailable Unavailable MtanosLucho MD Unavailable Unavailable MtanosLucho MD Unavailable Unavailable MtanosLucho MD Unavailable Unavailable MtanosLucho MD Unavailable Unavailable MtanosLucho MD Unavailable Unavailable MtanosLucho MD Unavailable Unavailable MtanosLucho MD Unavailable Unavailable MtanosLucho MD Unavailable Unavailable MtanosLucho MD Unavailable Unavailable MtanosLucho MD Unavailable Unavailable MtanosLucho MD Unavailable Unavailable MtanosLucho MD Unavailable Unavailable MtanosLucho MD Unavailable Unavailable MtanosLucho MD Unavailable Unavailable MtanosLucho MD Unavailable Unavailable MtanosLucho MD Unavailable Unavailable Mtanos, Lucho DAVIS Unavailable Unavailable Mtanos, Lucho DAVIS Unavailable Unavailable Mtanos, Lucho DAVIS Unavailable Unavailable Mtanos, Lucho DAVIS Unavailable Unavailable Mtanos, Lucho DAVIS Unavailable Unavailable Mtanos, Lucho DAVIS Unavailable Unavailable MtanosLucho MD Unavailable Unavailable MtanosLucho MD Unavailable Unavailable MtanosLucho MD Unavailable Unavailable Mtanos, Lucho DAVIS Unavailable Unavailable Mtanos, Lucho DAVIS Unavailable Unavailable Mtanos, Lucho DAVIS Unavailable Unavailable Mtanos, Lucho DAVIS Unavailable Unavailable Mtanos, Lucho DAVIS Unavailable Unavailable MtanosLucho MD Unavailable Unavailable Mtanos, Lucho DAVIS Unavailable Unavailable Mtanos, Lucho DAVIS Unavailable Unavailable Mtanos, Lucho DAVIS Unavailable Unavailable Mtanos, Lucho DAVIS Unavailable Unavailable Mtanos, Lucho DAVIS Unavailable Unavailable Mtanos, Lucho DAVIS Unavailable Unavailable MtanosLucho MD Unavailable Unavailable MtanosLucho MD Unavailable Unavailable MtanosLucho MD Unavailable Unavailable MtanosLucho MD Unavailable Unavailable Mtanos, Lucho DAVIS Unavailable Unavailable Mtanos, Lucho DAVIS Unavailable Unavailable Mtanos, Lucho DAVIS Unavailable Unavailable MARK-CAROLEE, GERARDO DO Unavailable Unavailable MARK-CAROLEE, GERARDO DO Unavailable Unavailable MARK-CAROLEE, GERARDO DO Unavailable Unavailable MARK-CAROLEE, GERARDO DO Unavailable Unavailable MARK-CAROLEE, GERARDO DO Unavailable Unavailable MARK-CAROLEE, GERARDO DO Unavailable Unavailable MARK-CAROLEE, GERARDO DO Unavailable Unavailable MARK-CAROLEE, GERARDO DO Unavailable Unavailable MARK-CAROLEE, GERARDO DO Unavailable Unavailable MARK-CAROLEE, GERARDO DO Unavailable Unavailable MARK-CAROLEE, GERARDO DO Unavailable Unavailable MARK-CAROLEE, GERARDO DO Unavailable Unavailable MARK-CAROLEE, GERARDO DO Unavailable Unavailable MARK-CAROLEE, GERARDO DO Unavailable Unavailable MARK-CAROLEE, GERARDO DO Unavailable Unavailable MARK-CAROLEE, GERARDO DO Unavailable Unavailable MARK-CAROLEE, GERARDO DO Unavailable Unavailable MARK-CAROLEE, GERARDO DO Unavailable Unavailable MARK-CAROLEE, GERARDO DO Unavailable Unavailable MARK-CAROLEE, GERARDO DO Unavailable Unavailable MARK-CAROLEE, GERARDO DO Unavailable Unavailable MARK-CAROLEE, GERARDO DO Unavailable Unavailable MARK-CAROLEE, GERARDO DO Unavailable Unavailable MARK-CAROLEE, GERARDO DO Unavailable Unavailable MARK-CAROLEE, GERARDO DO Unavailable Unavailable MARK-CAROLEE, GERARDO DO Unavailable Unavailable MARK-CAROLEE, GERARDO DO Unavailable Unavailable MARK-CAROLEE, GERARDO DO Unavailable Unavailable MARK-CAROLEE, GERARDO DO Unavailable Unavailable MARK-CAROLEE, GERARDO DO Unavailable Unavailable MARK-CAROLEE, GERARDO DO Unavailable Unavailable MARK-CAROLEE, GERARDO DO Unavailable Unavailable MARK-CAROLEE, GERARDO DO Unavailable Unavailable MARK-CAROLEE, GERARDO DO Unavailable Unavailable MARK-CAROLEE, GERARDO DO Unavailable Unavailable MARK-CAROLEE, GERARDO DO Unavailable Unavailable MARK-CAROLEE, GERARDO DO Unavailable Unavailable MARK-CAROLEE, GERARDO DO Unavailable Unavailable MARK-CAROLEE, GERARDO DO Unavailable Unavailable MARK-CAROLEE, GERARDO DO Unavailable Unavailable MARK-CAROLEE, GERARDO DO Unavailable Unavailable MARK-CAROLEE, GERARDO DO Unavailable Unavailable MARK-CAROLEE, GERARDO DO Unavailable Unavailable MARK-CAROLEE, GERARDO DO Unavailable Unavailable MARK-CAROLEE, GERARDO DO Unavailable Unavailable MARK-CAROLEE, GERARDO DO Unavailable Unavailable MARK-CAROLEE, GERARDO DO Unavailable Unavailable MARK-CAROLEE, GERARDO DO Unavailable Unavailable MARK-CAROLEE, GERARDO DO Unavailable Unavailable MARK-CAROLEE, GERARDO DO Unavailable Unavailable MARK-CAROLEE, GERARDO DO Unavailable Unavailable MARK-CAROLEE, GERARDO DO Unavailable Unavailable MARK-CAROLEE, GERARDO DO Unavailable Unavailable MARK-CAROLEE, GERARDO DO Unavailable Unavailable MARK-CAROLEE, GERARDO DO Unavailable Unavailable MARK-CAROLEE, GERARDO DO Unavailable Unavailable MARK-CAROLEE, GERARDO DO Unavailable Unavailable MARK-CAROLEE, GERARDO DO Unavailable Unavailable MARK-CAROLEE, GERARDO DO Unavailable Unavailable MARK-CAROLEE, GERARDO DO Unavailable Unavailable MARK-CAROLEE, GERARDO DO Unavailable Unavailable MARK-CAROLEE, GERARDO DO Unavailable Unavailable MARK-CAROLEE, GERARDO DO Unavailable Unavailable MARK-CAROLEE, GERARDO DO Unavailable Unavailable MARK-CAROLEE, GERARDO DO Unavailable Unavailable MARK-CAROLEE, GERARDO DO Unavailable Unavailable MARK-CAROLEE, GERARDO DO Unavailable Unavailable MARK-CAROLEE, GERARDO DO Unavailable Unavailable MARK-CAROLEE, GERARDO DO Unavailable Unavailable MARK-CAROLEE, GERARDO DO Unavailable Unavailable MARK-CAROLEE, GERARDO DO Unavailable Unavailable MARK-CAROLEE, GERARDO DO Unavailable Unavailable MARK-CAROLEE, GERARDO DO Unavailable Unavailable MARK-CAROLEE, GERARDO DO Unavailable Unavailable MARK-CAROLEE, GERARDO DO Unavailable Unavailable MARK-CAROLEE, GERARDO DO Unavailable Unavailable MARK-CAROLEE, GERARDO DO Unavailable Unavailable MARK-CAROLEE, GERARDO DO Unavailable Unavailable MARK-CAROLEE, GERARDO DO Unavailable Unavailable MARK-CAROLEE, GERARDO DO Unavailable Unavailable MARK-CAROLEE, GERARDO DO Unavailable Unavailable MARK-CAROLEE, GERARDO DO Unavailable Unavailable Pikarsky, Enrrique 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 Unavailable Unavailable Pikarsky, Enrrique 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 Unavailable Unavailable Pikarsky, Enrrique 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 Unavailable Unavailable Pikarsky, Enrrique 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 Unavailable Unavailable Pikarsky, Enrrique 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 Unavailable Unavailable Pikarsky, Enrrique 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 Unavailable Unavailable Pikarsky, Enrrique 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 Unavailable Unavailable Pikarsky, Enrrique 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 Unavailable Unavailable Pikarsky, Enrrique 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 Unavailable Unavailable Pikarsky, Enrrique 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 Unavailable Unavailable Pikarsky, Enrrique 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 Unavailable Unavailable Pikarsky, Enrrique 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 Unavailable Unavailable Pikarsky, Enrrique 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 Unavailable Unavailable Pikarsky, Enrrique 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 Unavailable Unavailable Pikarsky, Enrrique 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 Unavailable Unavailable Pikarsky, Enrrique 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 Unavailable Unavailable Pikarsky, Enrrique 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 Unavailable Unavailable Pikarsky, Enrrique 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 Unavailable Unavailable Pikarsky, Enrrique 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 Unavailable Unavailable Pikarsky, Enrrique 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 Unavailable Unavailable Pikarsky, Enrrique 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 Unavailable Unavailable Pikarsky, Enrrique 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 Unavailable Unavailable Pikarsky, Enrrique 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 Unavailable Unavailable Pikarsky, Enrrique 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 Unavailable Unavailable RODRÍGUEZ (PATRICIA), Josefa STERN MD Unavailable Unavailab my ARREGUIN (PATRICIA), Josefa STERN MD Unavailable Unavailab my ARREGUIN (PATRICIA), Josefa STERN MD Unavailable Unavailab le RODRÍGUEZ (PATRICIA), Josefa STERN MD Unavailable Unavailab le RODRÍGUEZ (PATRICIA), Josefa STERN MD Unavailable Unavailab le RODRÍGUEZ (PATRICIA), Josefa STERN MD Unavailable Unavailab le RODRÍGUEZ (PATRICIA), Josefa STERN MD Unavailable Unavailab le RODRÍGUEZ (PATRICIA), Josefa STERN MD Unavailable Unavailab le RODRÍGUEZ (PATRICIA), Josefa STERN MD Unavailable Unavailab le RODRÍGUEZ (PATRICIA), Josefa STERN MD Unavailable Unavailab le RODRÍGUEZ (PATRICIA), Josefa STERN MD Unavailable Unavailab le RODRÍGUEZ (PATRICIA), Josefa STERN MD Unavailable Unavailab le RODRÍGUEZ (PATRICIA), Josefa STERN MD Unavailable Unavailab le RODRÍGUEZ (PATRICIA), Josefa STERN MD Unavailable Unavailab le RODRÍGUEZ (PATRICIA), Josefa STERN MD Unavailable Unavailab le RODRÍGUEZ (PATRICIA), Josefa STERN MD Unavailable Unavailab le RODRÍGUEZ (PATRICIA), Josefa STERN MD Unavailable Unavailab le RODRÍGUEZ (PATRICIA), Josefa STERN MD Unavailable Unavailab le RODRÍGUEZ (PATRICIA), Josefa STERN MD Unavailable Unavailab le RODRÍGUEZ (PATRICIA), Josefa STERN MD Unavailable Unavailab le RODRÍGUEZ (PATRICIA), Josefa STERN MD Unavailable Unavailab le RODRÍGUEZ (PATRICIA), Josefa STERN MD Unavailable Unavailab le RODRÍGUEZ (PATRICIA), Josefa STREN MD Unavailable Unavailab le RODRÍGUEZ (PATRICIA), Josefa STERN MD Unavailable Unavailab le RODRÍGUEZ (PATRICIA), Josefa STERN MD Unavailable Unavailab le RODRÍGUEZ (PATRICIA), Josefa STERN MD Unavailable Unavailab le RODRÍGUEZ (PATRICIA), Josefa STERN MD Unavailable Unavailab le RODRÍGUEZ (PATRICIA), Josefa STERN MD Unavailable Unavailab le RODRÍGUEZ (PATRICIA), Josefa STERN MD Unavailable Unavailab le RODRÍGUEZ (PATRICIA), Josefa STERN MD Unavailable Unavailab le RODRÍGUEZ (PATRICIA), Josefa STERN MD Unavailable Unavailab le RODRÍGUEZ (PATRICIA), Josefa STERN MD Unavailable Unavailab le RODRÍGUEZ (PATRICIA), Josefa STERN MD Unavailable Unavailab le RODRÍGUEZ (PATRICIA), Josefa STERN MD Unavailable Unavailab le RODRÍGUEZ (PATRICIA), Josefa STERN MD Unavailable Unavailab le RODRÍGUEZ (PATRICIA), Josefa STERN MD Unavailable Unavailab le RODRÍGUEZ (PATRICIA), Josefa STERN MD Unavailable Unavailab le RODRÍGUEZ (PATRICIA), Josefa STERN MD Unavailable Unavailab le RODRÍGUEZ (PATRICIA), Josefa STERN MD Unavailable Unavailab le RODRÍGUEZ (PATRICIA), Josefa STERN MD Unavailable Unavailab le RODRÍGUEZ (PATRICIA), Josefa STERN MD Unavailable Unavailab le RODRÍGUEZ (PATRICIA), Josefa STERN MD Unavailable Unavailab le RODRÍGUEZ (PATRICIA), Josefa STERN MD Unavailable Unavailab le RODRÍGUEZ (PATRICIA), Josefa STERN MD Unavailable Unavailab le RODRÍGUEZ (PATRICIA), Josefa STERN MD Unavailable Unavailab le RODRÍGUEZ (PATRICIA), Josefa STERN MD Unavailable Unavailab le RODRÍGUEZ (PATRICIA), Josefa STERN MD Unavailable Unavailab le RODRÍGUEZ (PATRICIA), Josefa STERN MD Unavailable Unavailab le RODRÍGUEZ (PATRICIA), Josefa STERN MD Unavailable Unavailab le RODRÍGUEZ (PATRICIA), Josefa STERN MD Unavailable Unavailab le RODRÍGUEZ (PATRICIA), Josefa STERN MD Unavailable Unavailab le RODRÍGUEZ (PATRICIA), Josefa STERN MD Unavailable Unavailab le RODRÍGUEZ (PATRICIA), Josefa STERN MD Unavailable Unavailab le RODRÍGUEZ (PATRICIA), Josefa STERN MD Unavailable Unavailab le RODRÍGUEZ (PATRICIA), Josefa STERN MD Unavailable Unavailab le RODRÍGUEZ (PATRICIA), Josefa STERN MD Unavailable Unavailab le RODRÍGUEZ (PATRICIA), Josefa STERN MD Unavailable Unavailab le RODRÍGUEZ (PATRICIA), Josefa STERN MD Unavailable Unavailab le RODRÍGUEZ (PATRICIA), Josefa STERN MD Unavailable Unavailab le RODRÍGUEZ (PATRICIA), Josefa STERN MD Unavailable Unavailab le RODRÍGUEZ (PATRICIA), Josefa STERN MD Unavailable Unavailab le RODRÍGUEZ (PATRICIA), Josefa STERN MD Unavailable Unavailab le ORDRÍGUEZ (PATRICIA), Josefa STERN MD Unavailable Unavailab le RODRÍGUEZ (PATRICIA), Josefa STERN MD Unavailable Unavailab le RODRÍGUEZ (PATRICIA), Josefa STERN MD Unavailable Unavailab le RODRÍGUEZ (PATRICIA), Josefa STERN MD Unavailable Unavailab le RODRÍGUEZ (PATRICIA), Josefa STERN MD Unavailable Unavailab le RODRÍGUEZ (PATRICIA), Josefa STERN MD Unavailable Unavailab le RODRÍGUEZ (PATRICIA), Josefa STERN MD Unavailable Unavailab le RODRÍGUEZ (PATRICIA), Josefa STERN MD Unavailable Unavailab le RODRÍGUEZ (PATRICIA), Josefa STERN MD Unavailable Unavailab le RODRÍGUEZ (PATRICIA), Josefa STERN MD Unavailable Unavailab le RODRÍGUEZ (PATRICIA), Josefa STERN MD Unavailable Unavailab le RODRÍGUEZ (PATRICIA), Josefa STERN MD Unavailable Unavailab le RODRÍGUEZ (PATRICIA), Josefa JARRED MD Unavailable Unavailab le RODRÍGUEZ (PATRICIA), M JARRED MD Unavailable Unavailab le RODRÍGUEZ (PATRICIA), M JARRED MD Unavailable Unavailab le RODRÍGUEZ (PATRICIA), M JARRED MD Unavailable Unavailab le RODRÍGUEZ (PATRICIA), M JARRED MD Unavailable Unavailab le RODRÍGUEZ (PATRICIA), M JARRED MD Unavailable Unavailab le RODRÍGUEZ (PATRICIA), M JARRED MD Unavailable Unavailab le RODRÍGUEZ (PATRICIA), M JARRED MD Unavailable Unavailab le RODRÍGUEZ (PATRICIA), M JARRED MD Unavailable Unavailab le RODRÍGUEZ (PATRICIA), M JARRED MD Unavailable Unavailab le RODRÍGUEZ (PATRICIA), M JARRED MD Unavailable Unavailab le RODRÍGUEZ (PATRICIA), M JARRED MD Unavailable Unavailab le RODRÍGUEZ (PATRICIA), M JARRED MD Unavailable Unavailab le RODRÍGUEZ (PATRICIA), M JARRED MD Unavailable Unavailab le ORDRÍGUEZ (PATRICIA), M JARRED MD Unavailable Unavailab le RODRÍGUEZ (PATRICIA), M JARRED MD Unavailable Unavailab le RODRÍGUEZ (PATRICIA), M JARRED MD Unavailable Unavailab le RODRÍGUEZ (PATRICIA), M JARRED MD Unavailable Unavailab le RODRÍGUEZ (PATRICIA), M JARRED MD Unavailable Unavailab le Re-disclosure Warning The records that you are about to access may contain information from federally-assisted alcohol or drug abuse programs. If such information is present, then the following federally mandated warning applies: This information has been disclosed to you from records protected by federal confidentiality rules (42 CFR part 2). The federal rules prohibit you from making any further disclosure of this information unless further disclosure is expressly permitted by the written consent of the person to whom it pertains or as otherwise permitted by 42 CFR part 2. A general authorization for the release of medical or other information is NOT sufficient for this purpose. The Federal rules restrict any use of the information to criminally investigate or prosecute any alcohol or drug abuse patient.The records that you are about to access may contain highly sensitive health information, the redisclosure of which is protected by Article 27-F of the [facility] Public Health law. If you continue you may have access to information: Regarding HIV / AIDS; Provided by facilities licensed or operated by the [facility] Office of Mental Health; or Provided by the [facility] Office for People With Developmental Disabilities. If such information is present, then the following [facility] mandated warning applies: This information has been disclosed to you from confidential records which are protected by state law. State law prohibits you from making any further disclosure of this information without the specific written consent of the person to whom it pertains, or as otherwise permitted by law. Any unauthorized further disclosure in violation of state law may result in a fine or snf sentence or both. A general authorization for the release of medical or other information is NOT sufficient authorization for further disc losure. Allergies and Adverse Reactions Type Description Substance Reaction Status Data Source(s ) DRUG INGREDI AMOXICILLIN Amoxicillin Rash [facility] Family History Family Member Name Family Member Gender Family Member Status Date o f Status Description Data Source(s) Unknown Female Problem (finding) 10/01/2011 12:00:00 AM EDT [facility] ([facility]) Unknown Male Problem MEDENT ([facility] ) Unknown Unknown Problem MEDENT ([facility], [facility]) Unknown Female Problem MEDENT ([facility]) Encounters Encounter Providers Location Date Indications Data Source(s ) Outpatient Attender: GERARDO OGLESBY DO [facility] 07/11/2020 03:00:00 PM EST MEDENT ([facility]) Wendi Dolan NP: [id number], [place] [address], Ph. Attender: Wendi Dolan [facility] - [facility] - Main Office 06/21/2020 12:00:00 AM EST THUE NA ([facility]) Attender: Hyun Angulo [facility] 01:34:00 PM EST - 06/11/2020 01:34:00 PM EST [facility] ([facility]) PHONE E/M BY PHYS 5-10 MIN Attender: Enrrique [facility] 06/07/2020 01:51:00 PM EST - 06/07/2020 01:51:00 PM ES T Unspecified juvenile rheumatoid arthritis, multiple sitesOther snf (current) drug therapy [facility] ([facility]) Unspecified juvenile rheumatoid arthriti s, multiple sites Other snf (current) drug therapy Attender: Enrrique Jama NP [facility] 06/05/2020 02:30:00 PM EST - 06/05/2020 02:30:00 PM EST [facility] ( [facility]) Attender: Enrrique Jama NP [facility] 05/31/2020 09:44:00 AM EST - 05/31/2020 09:44:00 AM EST [facility] ( [facility]) Outpatient Attender: GERARDO OGLESBY [facility] 05/23/2020 02:30:00 PM EST MEDENT ([facility]) Attender: Enrrique Jama NP [facility] 05/22/2020 03:34:00 PM EST - 05/22/2020 03:34:00 PM EST [facility] ( [facility]) Outpatient Attender: GERARDO OGLESBY [facility] 05/21/2020 02:40:00 PM EST MEDENT ([facility]) Attender: Lucho Amaodr MD [facility] 05/18/2020 09:34:00 AM EST - 05/18/2020 09:34:00 AM EST [facility] ( [facility]) Attender: Enrrique Jama NP [facility] 05/10/2020 09:13:00 AM EST - 05/10/2020 09:13:00 AM EST [facility] ( [facility]) Outpatient Attender: Law Sen MD BF-BF 05/07/2020 01:23:2 7 PM EST [facility] Attender: Enrrique Jama NP [facility] 05/03/2020 09:13:00 AM EST - 05/03/2020 09:13:00 AM EST [facility] ( [facility]) Attender: Enrrique Jama NP [facility] 04/25/2020 04:06:00 PM EST - 04/25/2020 04:06:00 PM EST [facility] ( [facility]) Attender: Enrrique Jama NP [facility] 04/23/2020 11:40:00 AM EST - 04/23/2020 11:40:00 AM EST Pain in jointOther intermediate manager (current) drug therapyUnspecified juvenile rheumatoid arthritis, multiple sites [facility] ([facility]) Pain in joint Other snf (current) drug therapy Unspecified juvenile rheumatoid arthriti s, multiple sites Attender: JARRED ARREGUIN MD ([place]) 0 08:20:11 PM EST [facility] Attender: JARRED ARREGUIN MD ([place]) 0 08:20:11 PM EST [facility] Wendi Dolan, 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: [address], [place] [address], Ph. Attender: Wendi Dolan [facility] - [facility] - [facility] 03/30/2020 12:00:00 AM EDT ATHJob MINER ([facility]) Wendi Dolan, 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: [address], [place] [address], Ph. Attender: Wendi Dolan [facility] - [facility] - [facility] 03/30/2020 12:00:00 AM EDT ATHE NA ([facility]) Outpatient Attender: GERARDO OGLESBY DO [facility] 03/28/2020 11:20:00 AM EDT MEDENT ([facility]) Attender: JARRED ARREGUIN MD ([place]) 0 08:20:10 PM EDT [facility] Attender: JARRED ARREGUIN MD ([place]) 0 08:20:10 PM EDT [facility] Attender: JARRED ARREGUIN MD ([place]) 0 08:20:10 PM EDT [facility] Attender: Lucho Amador MD [facility] 02/28/2020 11:04:00 AM EDT - 02/28/2020 11:04:00 AM EDT Marvin ( [facility]) Attender: Lucho Amador MD [facility] 02/24/2020 03:55:00 PM EDT - 02/24/2020 03:55:00 PM EDT [facility] ( [facility]) OutpatientOFFICE/OUTPATIENT VISIT, EST Attender: Enrrique zhao NP [facility] 02/20/2020 11:40:00 AM EDT - 02/20/2020 11:40:00 AM ED T Pain in jointOther snf (current) drug therapyUnspecified juvenile rheumatoid arthritis, multiple sites [facility] ([facility]) Pain in joint Other intermediate manager (current) drug therapy Unspecified juvenile rheumatoid arthriti s, multiple sites Attender: Enrrique Jama NP [facility] 02/08/2020 01:46:00 PM EDT - 02/08/2020 01:46:00 PM EDT [facility] ( [facility]) Outpatient Attender: Law Sen MD BF-BF 01/30/2020 12:00:0 0 AM EDT [facility] Outpatient Attender: GERARDO OGLESBY DO [facility] 01/26/2020 02:30:00 PM EDT MEDENT ([facility]) OutpatientOFFICE/OUTPATIENT VISIT, EST Attender: Enrrique zhao NP [facility] 01/26/2020 11:00:00 AM EDT - 01/26/2020 11:00:00 AM ED T Sicca syndrome, unspecifiedOther intermediate manager (current) drug therapyUnspecified juvenile rheumatoid arthritis, multiple sites [facility] Sicca syndrome, unspecified Other intermediate manager (current) drug therapy Unspecified juvenile rheumatoid arthriti s, multiple sites Wendi Dolan, 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: [address], [place] [address], Ph. Attender: Wendi Dolan [facility] - [facility] [place] [facility] - Main Office 01/23/2020 12:00:00 AM EDT ATHE KRISTOFER ([facility]) Wendi Dolan, 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: [address], [facility] [place] [address], Ph. Attender: Wendi Dolan [facility] - [facility] 01/23/2020 12:00:00 AM EDT ATHE NA ([facility]) Wendi Dolan, 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: [address], [place] [address], Ph. Attender: Wendi Dolan [facility] 01/23/2020 12:00:00 AM EDT ATHE NA ([facility]) Outpatient Attender: HYUN NEWELL MD [id number] 01/05/2020 12:00:00 AM EDT [facility] Outpatient Referrer: HYUN NEWELL MD 01/05/2020 12:0 0:00 AM EDT Presence of right artificial shoulder joint [facility] Presence of right artificial shoulder venessa int Wendi Dolan, 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: [address], [place] [address], Ph. Attender: Wendi Dolan [facility] - [facility] 12/28/2019 12:00:00 AM EDT ATHE NA ([facility]) Wendi Dolan, 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: [address], [place] [address], Ph. Attender: Wendi Dolan [facility] - [facility] 12/28/2019 12:00:00 AM EDT ATHE NA ([facility]) Wendi Dolan, 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: [address], [place] [address], Ph. Attender: Wendi Dolan [facility] - [facility] 12/28/2019 12:00:00 AM EDT ATHE NA ([facility]) Wendi Jimenez Kanikasarmadmonty, 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: [address], [place] [address], Ph. Attender: Wendi Dolan [facility] - [facility] 12/28/2019 12:00:00 AM EDT ATHE NA ([facility]) Outpatient Attender: Norma Ceballos RPA 12/21/2019 12:00:00 AM EDT [facility] Attender: JARRED ARREGUIN MD ([place]) 0 08:20:07 PM EDT [facility] Attender: JARRED ARREGUIN MD ([place]) 0 08:20:07 PM EDT [facility] Outpatient Attender: Lexa VELÁSQUEZ [facility] 12/19/2019 10:40:00 AM EDT MEDMIRELA ([facility]) Attender: JARRED ARREGUIN MD ([place]) 0 08:20:07 PM EDT [facility] Attender: Lucho Amador [facility] 12/01/2019 08:51:00 AM EDT - 12/01/2019 08:51:00 AM EDT [facility] ( [facility]) [facility]: [facility]ador [facility] 11/29/2019 04:42:00 PM EDT - 11/29/2019 04:42:00 PM EDT [facility] ( [facility]) Wendialejandro Dolan, 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: [address], [place] [address], Ph. Attender: Wendi Dolan [facility] - [facility] [place] [facility] 11/29/2019 12:00:00 AM EDT ATHJob NA ([facility] [place]) Wendi Sammyjaspreetlauri Dolan, 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: [address], [place] [address], Ph. Attender: Wendialejandro Dolan [facility] - [facility] Office 11/29/2019 12:00:00 AM EDT ATHE NA ([facility] [place]) Wendi Dolan, 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: [address], [place] [address], Ph. Attender: Wendi Dolan [facility]NA[facility] - [facility] 11/29/2019 12:00:00 AM EDT ATHE NA ([facility] [place]) Wendi Dolan, 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: [address], [address], [place] [address], Ph. Attender: Wendi Dolan [facility]ETING MANA[facility] - [facility] 11/29/2019 12:00:00 AM EDT ATHE NA ([facility] [place]) Wendi Dolan, 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: [address], [place] [address], Ph. Attender: Wendi Dolan MEDIA [facility]ETING [facility]NA[facility] - [facility] 11/29/2019 12:00:00 AM EDT ATHE NA ([facility]) Attender: Lucho Amador MD [facility] 11/22/2019 01:28:00 PM EDT - 11/22/2019 01:28:00 PM EDT [facility] Outpatient Referrer: Wendi Darnellon MEDIA MARKETING MANAGER 11/15/2019 08:39:0 0 AM EDT [facility] Outpatient Referrer: Wendi Kanikamalon MEDIA MARKETING MANAGER 11/15/2019 08:39:0 0 AM EDT [facility] Outpatient Referrer: Wendi Boudreauxmalon MEDIA MARKETING MANAGER 11/14/2019 03:18:0 0 PM EDT [facility] Outpatient Referrer: Wendi Kanikamalon MEDIA MARKETING MANAGER 11/14/2019 01:31:0 0 PM EDT [facility] Outpatient Referrer: Wendi Darnellon MEDIA MARKETING MANAGER 11/10/2019 09:22:0 0 AM EDT [facility] Outpatient Referrer: GERARDO OGLESBY DO 11/10/2019 09 :20:00 AM EDT [facility] OutpatientOFFICE/OUTPATIENT VISIT, EST Attender: Lucho espino MD [facility] 10/26/2019 02:40:00 PM EDT - 10/26/2019 02:40:00 PM ED T Diarrhea, unspecifiedOther snf (current) drug therapySicca syndrome, unspecifiedUnspecified juvenile rheumatoid arthritis, multiple sites [facility] ([facility]) Diarrhea, unspecified Other intermediate manager (current) drug therapy Sicca syndrome, unspecified Unspecified juvenile rheumatoid arthriti s, multiple sites Wendi Francolauri Dolan, 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: [address], [place] [address], Ph. Attender: Wendi Dolan [facility] - [facility] Office 10/25/2019 12:00:00 AM EDT JAIRO ([facility] [place]) Wendi Dolan, 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: [address], [place] [address], Ph. Attender: Wendi Dolan [facility] - [facility] Office 10/25/2019 12:00:00 AM EDT JAIRO ([facility] [place]) Wendi Dolan, 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: [address], [place] [address], Ph. Attender: Wendi Dolan [facility] - [facility] 10/25/2019 12:00:00 AM EDT JAIRO ([facility] [place]) Wendi Dolan, 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: [address], [place] [address], Ph. Attender: Wendi Dolan [facility] - [facility] Office 10/25/2019 12:00:00 AM EDT JAIRO ([facility] [place]) Wendi Jimenez Magdaleno, 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: [address], [place] [address], Ph. Attender: Wendi Dolan MEDIA MARKETING MANAGER [place] - [facility] Office 10/25/2019 12:00:00 AM EDT JAIRO ([facility] [place]) Wendi Dolan, 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: [address], [place] [address], Ph. Attender: Wendi Dolan MEDIA MARKETING MANAGER [place] - [facility] Office 10/25/2019 12:00:00 AM EDT JAIRO ([facility] [place]) Outpatient Attender: Law Sen MD [facility] 10/17/2019 12:00:0 0 AM EDT [facility] Wendi Dolan, 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: [address], [place] [address], Ph. Attender: Wendi Dolan MEDIA MARKETING MANAGER [place] - [facility] Office 09/26/2019 12:00:00 AM EDT JAIRO ([facility] [place]) Wendi Dolan, 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: [address], [place] [address], Ph. Attender: Wendi Dolan MEDIA MARKETING MANAGER [place] - [facility] Office 09/26/2019 12:00:00 AM EDT JAIRO ([facility] [place]) Wendi Dolan, 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: [address], [place] [address], Ph. Attender: Wendi Dolan MEDIA MARKETING MANAGER [place] - [facility] Office 09/26/2019 12:00:00 AM EDT JAIRO ([facility] [place]) Wendi Dolan, 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: [address], [place] [address], Ph. Attender: Wendi Dolan MEDIA MARKETING MANAGER [place] - [facility] Main Office 09/26/2019 12:00:00 AM EDT JAIRO ([facility] [place]) Wendi Dolan, 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: [address], [place] [address], Ph. Attender: Wendi Dolan [facility] - [facility] 09/26/2019 12:00:00 AM EDT JAIRO ([facility] [place]) Wendi Dolan, 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: [address], [place] [address], Ph. Attender: Wendi Dolan [facility] - [facility] 09/26/2019 12:00:00 AM EDT JAIRO ([facility] [place]) Wendi Dolan, 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: [address], [place] [address], Ph. Attender: Wendi Dolan [facility] - [facility] 09/26/2019 12:00:00 AM EDT JAIRO ([facility] [place]) Attender: Enrrique Jama NP [facility] 09/20/2019 11:14:00 AM EDT - 09/20/2019 11:14:00 AM EDT Marvin ( [facility]) Outpatient Attender: GERARDO OGLESBY DO [facility] 09/19/2019 11:00:00 AM EDT BERNADETTE ([facility]) Attender: Enrrique Jama NP [facility] 09/02/2019 02:13:00 PM EDT - 09/02/2019 02:13:00 PM EDT Marvin ( [facility]) Outpatient Attender: KRISTOFER FLEMING_[address] [facility] 08/19/2019 01:00:00 PM EDT MEDMIRELA ([facility]) Attender: Enrrique Jama NP [facility] 08/08/2019 11:16:00 AM EDT - 08/08/2019 11:16:00 AM EDT [facility] ( [facility]) Outpatient Referrer: GERARDO OGLESBY DO 07/26/2019 10 :44:00 AM EST [facility] Wendi Dolan, 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: [address], [place] [address], Ph. Attender: Wendi Dolan MEDIA MARKETING MANA[facility] - [facility] 07/26/2019 12:00:00 AM EST ATHE NA ([facility] [place]) Wendi Dolan, 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: [address], [address], [place] [address], Ph. Attender: Wnedi Dolan MEDIA MARKETING MANAGERD[facility] - [facility] 07/26/2019 12:00:00 AM EST ATHE NA ([facility] [place]) Wendi Dolan, 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: [address], [address], [place] [address], Ph. Attender: Wendi Dolan MEDIA MARKETING [facility]NA[facility] - [facility] 07/26/2019 12:00:00 AM EST ATHE NA ([facility] [place]) Wendi Dolan, 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: [address], [place] [address], Ph. Attender: Wendi Dolan MEDIA MARKETING MANA[facility] - [facility] 07/26/2019 12:00:00 AM EST ATHE NA ([facility] [place]) Wendi Dolan, 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: [address], [place] [address], Ph. Attender: Wendi Dolan MEDIA MARKETING [facility]NA[facility] - [facility] 07/26/2019 12:00:00 AM EST ATHE NA ([facility] [place]) Wendi Dolna, 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: [address], [place] [address], Ph. Attender: Wendi Dolan [facility] 07/26/2019 12:00:00 AM EST ATHE NA ([facility]) Wendi Dolan, 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: [address], [place] [address], Ph. Attender: Wendi Dolan [facility] 07/26/2019 12:00:00 AM EST ATHE NA ([facility]) Wendi Dolan, 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: [address], [place] [address], Ph. Attender: Wendi Dolan [facility] 07/26/2019 12:00:00 AM EST ATHE NA ([facility]) OutpatientOFFICE/OUTPATIENT VISIT, EST Attender: Enrrique zhao NP [facility] 07/12/2019 04:00:00 PM EST - 07/12/2019 04:00:00 PM ES T Other intermediate manager (current) drug therapyOsteoarthritisFibromyalgiaSicca syndrome, unspecifiedUnspecified juvenile rheumatoid arthritis, multiple sites [facility] ([facility]) Other intermediate manager (current) drug therapy Osteoarthritis Fibromyalgia Sicca syndrome, unspecified Unspecified juvenile rheumatoid arthriti s, multiple sites Outpatient Attender: aLw Sen MD [facility] 07/11/2019 12:00:0 0 AM EST [facility] Attender: JARRED ARREGUIN MD ([place]) 0 08:20:01 PM EST Gastroenterology and Hepatology [facility] Outpatient Attender: Lexa VELÁSQUEZ [facility] 06/20/2019 09:20:00 AM EST MEDENT ([facility]) Outpatient Attender: Law Sen MD [facility] 06/16/2019 12:00:0 0 AM EST [facility] Attender: Lucho Amador MD [facility] 06/14/2019 11:30:00 AM EST - 06/14/2019 11:30:00 AM EST Marvin ( [facility]) Wendi Dolan, 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: [address], [place] [address], Ph. Attender: Wendi Dolan [facility] - [facility] 06/14/2019 12:00:00 AM EST ATHE NA ([facility] [place]) Wendi Dolan, 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: [address], [place] [address], Ph. Attender: Wendi Magdaleno [facility] - [facility] 06/14/2019 12:00:00 AM EST ATHE NA ([facility] [place]) Wendi Dolan, 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: [address], [place] [address], Ph. Attender: Wendijob Dolan [facility] - [facility] 06/14/2019 12:00:00 AM EST ATHE NA ([facility] [place]) Wendi Dolan, 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: [address], [place] [address], Ph. Attender: Wendi Dolan [facility] - [facility] 06/14/2019 12:00:00 AM EST ATHE NA ([facility] [place]) Wendi Jimenez Kanikajonathan, 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: [address], [place] [address], Ph. Attender: Wendi Dolan [facility] - [facility] 06/14/2019 12:00:00 AM EST ATHE NA ([facility] [place]) Wendi Dolan, 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: [address], [place] [address], Ph. Attender: Wendi Dolan [facility] 06/14/2019 12:00:00 AM EST ATHE NA ([facility]) Wendi Dolan, 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: [address], [place] [address], Ph. Attender: Wendi Dolan [facility] 06/14/2019 12:00:00 AM EST ATHE NA ([facility]) Wendi Dolan, 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: [address], [place] [address], Ph. Attender: Wendi Dolan [facility] 06/14/2019 12:00:00 AM EST ATHE NA ([facility]) Wendi Dolan, 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: [address], [place] [address], Ph. Attender: Wendi Dolan [facility] 06/14/2019 12:00:00 AM EST ATHE NA ([facility]) Outpatient Referrer: GERARDO OGLESBY DO 06/07/2019 09 :17:00 PM EST [facility] Attender: Enrrique Jama NP [facility] 06/06/2019 12:18:00 PM EST - 06/06/2019 12:18:00 PM EST [facility] ( [facility]) Outpatient Attender: Norma Ceballos RPA [id number] 12/2018 12:00:00 AM EDT - 03/08/2019 05:25:52 PM EDT Presence of right artificial shoulder joint [facility] Presence of right artificial shoulder venessa int Immunizations Vaccine Date Status Description Data Source(s) Influenza, injectable, MDCK, preservative free, jenny valent 02/20/2020 12:00:00 AM EDT completed Flucelvax [facility] Source: Other Provider Pneumococcal conjugate PCV 13 06/20/2019 10:07:00 AM EST completed MEDENT ([facility]) Medications Medication Brand Name Start Date Product Form Dose Route Admi nistrative Instructions Pharmacy Instructions Status Indications Reaction Description Data Source(s) Orencia ClickJect 125 mg/mL subcutaneous auto-injector 1 ML abatacept 125 MG/ML Auto-Injector 06/11/2020 12:00:00 AM EST 1.00 mL SUBCUTANEOUS active 1 ML abatacept 125 MG/ML Auto-Injector [Orencia] [facility] ([facility]) Injection Ceftriaxone Sodium Per 250 MG (Rocephin) 05/23/2020 12:00:00 AM EST completed MEDENT ([facility]) Medication administered onsite Methotrexate 2.5 MG Oral Tablet methotrexate sodium 2. 5 mg tablet methotrexate sodium 2.5 mg tablet 05/22/2020 12:00:00 AM EST 8 {tbl} ORAL completed take 8 Tablet by oral route every week [facility] ([facility]) Methotrexate 2.5 MG Oral Tablet methotrexate sodium 2. 5 mg tablet methotrexate sodium 2.5 mg tablet 05/22/2020 12:00:00 AM EST active take 8 Tablet by oral route every week [facility] ([facility]) Injection Ceftriaxone Sodium Per 250 MG (Rocephin) 05/21/2020 12:00:00 AM EST completed MEDENT ([facility]) Medication administered onsite Nystatin [id number] UNT/ML Topical Cream Nystatin 05/21/2020 12:00:00 AM EST active MEDENT ([facility]) Phenazopyridine hydrochloride 200 MG Oral Tablet [Pyridium] Pyridium 05/21/2020 12:00:00 AM EST ORAL completed MEDENT ([facility]) Sulfamethoxazole 800 MG / Trimethoprim 160 MG Oral Tab let Sulfamethoxazole/Trimethoprim DS 05/21/2020 12:00:00 AM EST ORAL completed MEDENT ([facility]) Fluconazole 150 MG Oral Tablet Fluconazole 05/21/2020 12:00:00 AM EST completed [facility]ENT ([facility]) cevimeline 30 MG Oral Capsule CEVIMELINE HCL 30 MG CAP NICOLASA CEVIMELINE HCL 30 MG CAPSULE 05/18/2020 12:00:00 AM EST active TAKE 1 CAPSULE BY MOUTH THREE TIMES A DAY [facility] ([facility]) Leucovorin 5 MG Oral Tablet LEUCOVORIN CALCIUM 5 MG TA B LEUCOVORIN CALCIUM 5 MG TAB 05/10/2020 12:00:00 AM EST 1 {tbl} ORAL active TAKE 1 TABLET BY MOUTH EVERY WEEK Next ([facility]) Orencia ClickJect 125 mg/mL subcutaneous auto-injector 1 ML abatacept 125 MG/ML Auto-Injector 04/23/2020 12:00:00 AM EST 1.00 mL SUBCUTANEOUS completed 1 ML abatacept 125 MG/ML Auto-Injector [Orencia] Sigifredo judy ([facility]) Ozempic (0.25 Or 0.5 MG/Dose) Ozempic (0.25 Or 0.5 MG/Dose) 03/28/2020 12:00:00 AM EDT active MEDENT ([facility]) Prednisone 5 MG Oral Tablet PREDNISONE 5 MG TABLET PREDNISON E 5 MG TABLET 02/28/2020 12:00:00 AM EDT 1 {tbl} ORAL active TAKE 1 TABLET BY MOUTH TWICE A DAY [facility] ([facility]) cevimeline 30 MG Oral Capsule cevimeline 30 mg capsule cevim nohelia 30 mg capsule 02/24/2020 12:00:00 AM EDT completed TAKE 1 CAPSULE BY MOUTH THREE TIMES A DAY [facility] ([facility]) 0.9 ML tocilizumab 180 MG/ML Prefilled S yringe [Actemra] Actemra 162 mg/0.9 mL subcutaneous syringe Actemra 162 mg/0.9 mL subcutaneous syringe 02/20/2020 12:00:00 AM EDT active 0.9 ML tocilizumab 180 MG/ML Prefilled Syringe [Actemra] [facility] ([facility]) Leucovorin 5 MG Oral Tablet leucovorin calcium 5 mg ta blet leucovorin calcium 5 mg tablet 02/20/2020 12:00:00 AM EDT 1 {tbl} ORAL active take 1 tablet by oral route every week [facility] ([facility]) Cyclobenzaprine hydrochloride 10 MG Oral Tablet cyclob enzaprine 10 mg tablet cyclobenzaprine 10 mg tablet 02/20/2020 12:00:00 AM EDT active TAKE 1 TABLET BY MOUTH 3 TIMES DAILY DIRECTED [facility] ([facility]) Cefuroxime 500 MG Oral Tablet Cefuroxime Axetil 01/26/2020 12:00:00 A M EDT ORAL completed MEDENT ([facility]) Prednisone 10 MG Oral Tablet Prednisone 01/26/2020 12:00:00 AM EDT completed MEDENT ([facility]) Methotrexate 2.5 MG Oral Tablet methotrexate sodium 2. 5 mg tablet methotrexate sodium 2.5 mg tablet 01/26/2020 12:00:00 AM EDT 8 {tbl} ORAL completed take 8 Tablet by oral route every week [facility] ([facility]) 100 mg 12/06/2019 12:00:00 AM EDT tablet 90 TAKE ONE TABLET BY MOUTH EVERY DAY TAKE ONE TABLET BY MOUTH EVERY DAY SOLD: 12/09/2019 [facility] 0.9 ML tocilizumab 180 MG/ML Prefilled Syringe [Actemr a] ACTEMRA PFS 162MG/0.9M ACTEMRA PFS 162MG/0.9M 12/01/2019 12:00:00 AM EDT completed 0.9 ML tocilizumab 180 MG/ML Prefilled Syringe [Actemra] [facility] ([facility]) Prednisone 5 MG Oral Tablet prednisone 5 mg tablet prednison e 5 mg tablet 11/29/2019 12:00:00 AM EDT 1 {tbl} ORAL completed take 1 tablet by oral route 2 times every day [facility] ([facility]) Prednisone 5 MG Oral Tablet prednisone 5 mg tablet prednison e 5 mg tablet 10/26/2019 12:00:00 AM EDT 1 {tbl} ORAL completed take 1 tablet by oral route 2 times every day [facility] ([facility]) cevimeline 30 MG Oral Capsule cevimeline 30 mg capsule cevim nohelia 30 mg capsule 09/20/2019 12:00:00 AM EDT completed TAKE 1 CAPSULE BY MOUTH THREE TIMES A DAY [facility] ([facility]) Leucovorin 5 MG Oral Tablet LEUCOVORIN CALCIUM 5 MG TA B LEUCOVORIN CALCIUM 5 MG TAB 09/02/2019 12:00:00 AM EDT 1 {tbl} ORAL completed TAKE 1 TABLET BY MOUTH EVERY WEEK Next ([facility]) Potassium Chloride 10 MEQ Extended Release Oral Tablet Potas sium Chloride ER 08/25/2019 12:00:00 AM EDT active MEDENT ([facility]) Methotrexate 2.5 MG Oral Tablet METHOTREXATE 2.5MG METHOTREX ATE 2.5MG 08/08/2019 12:00:00 AM EDT 6 {tbl} ORAL completed TAKE 6 TABLETS BY MOUTH ONCE EVERY WEEK. Marvin ([facility]) Cyclobenzaprine hydrochloride 10 MG Oral Tablet cyclob enzaprine 10 mg tablet cyclobenzaprine 10 mg tablet 07/12/2019 12:00:00 AM EST completed TAKE 1 TABLET BY MOUTH 3 TIMES DAILY DIRECTED [facility] ([facility]) Clonazepam 1 MG Disintegrating Oral Tablet Clonazepam 06/21/2019 12:00:00 AM EST ORAL active MEDENT ([facility]) Clonazepam 2 MG Oral Tablet Clonazepam 06/20/2019 12:00:00 AM EST ORAL active MEDENT ([facility]) 0.9 ML tocilizumab 180 MG/ML Prefilled Syringe [Actemr a] ACTEMRA PFS 162MG/0.9M ACTEMRA PFS 162MG/0.9M 06/14/2019 12:00:00 AM EST completed 0.9 ML tocilizumab 180 MG/ML Prefilled Syringe [facility]ra] [facility] Leucovorin 5 MG Oral Tablet LEUCOVORIN CALCIUM 5 MG TA B LEUCOVORIN CALCIUM 5 MG TAB 06/06/2019 12:00:00 AM EST 1 {tbl} ORAL completed TAKE 1 TABLET BY MOUTH EVERY WEEK Next ([facility]) gabapentin 300 MG Oral Capsule GABAPENTIN 300 MG CAPSU LE GABAPENTIN 300 MG CAPSULE 05/11/2019 12:00:00 AM EST completed TAKE 1 CAPSULE BY MOUTH TWICE A DAY [facility] ([facility]) Nystatin [id number] UNT/ML Oral Suspension nystatin 100,00 0 unit/mL oral suspension nystatin 100,000 unit/mL oral suspension 04/05/2019 12:00:00 AM EST completed take 5 milliliter by oral route 4 times every day for 2 weeks Next ([facility]) Cyclobenzaprine hydrochloride 10 MG Oral Tablet cyclob enzaprine 10 mg tablet cyclobenzaprine 10 mg tablet 04/05/2019 12:00:00 AM EST completed TAKE 1 TABLET BY MOUTH 3 TIMES DAILY DIRECTED [facility] ([facility]) Methotrexate 2.5 MG Oral Tablet methotrexate sodium 2. 5 mg tablet methotrexate sodium 2.5 mg tablet 04/05/2019 12:00:00 AM EST 6 {tbl} ORAL completed take 6 Tablet by oral route every week [facility] ([facility]) Leucovorin 5 MG Oral Tablet leucovorin calcium 5 mg ta blet leucovorin calcium 5 mg tablet 03/16/2019 12:00:00 AM EDT 1 {tbl} ORAL complet ed take 1 tablet by oral route every week [facility] ([facility]) cevimeline 30 MG Oral Capsule CEVIMELINE HCL 30 MG CAP NICOLASA CEVIMELINE HCL 30 MG CAPSULE 03/14/2019 12:00:00 AM EDT completed TAKE 1 CAPSULE BY MOUTH THREE TIMES A DAY [facility] ([facility]) Oxycodone Hydrochloride 5 MG Oral Tablet oxycodone 5 m g tablet as needed oxycodone 5 mg tablet as needed 01/04/2019 12:00:00 AM EDT completed oxycodone hydrochloride 5 MG Oral Tablet JIARO ([facility]) Oxycodone Hydrochloride 5 MG Oral Tablet oxycodone 5 m g tablet as needed oxycodone 5 mg tablet as needed 01/04/2019 12:00:00 AM EDT completed oxycodone hydrochloride 5 MG Oral Tablet JAIRO ([facility]) Oxycodone Hydrochloride 5 MG Oral Tablet oxycodone 5 m g tablet as needed oxycodone 5 mg tablet as needed 01/04/2019 12:00:00 AM EDT completed oxycodone hydrochloride 5 MG Oral Tablet JARIO ([facility]) Oxycodone Hydrochloride 5 MG Oral Tablet oxycodone 5 m g tablet as needed oxycodone 5 mg tablet as needed 01/04/2019 12:00:00 AM EDT completed Oxycodone Hydrochloride 5 MG Oral Tablet JAIRO ([facility]) Oxycodone Hydrochloride 5 MG Oral Tablet oxycodone 5 m g tablet as needed oxycodone 5 mg tablet as needed 01/04/2019 12:00:00 AM EDT completed Oxycodone Hydrochloride 5 MG Oral Tablet JAIRO ([facility]) Oxycodone Hydrochloride 5 MG Oral Tablet oxycodone 5 m g tablet as needed oxycodone 5 mg tablet as needed 01/04/2019 12:00:00 AM EDT completed oxycodone hydrochloride 5 MG Oral Tablet JAIRO ([facility]) Oxycodone Hydrochloride 5 MG Oral Tablet oxycodone 5 m g tablet as needed oxycodone 5 mg tablet as needed 01/04/2019 12:00:00 AM EDT completed oxycodone hydrochloride 5 MG Oral Tablet JAIRO ([facility]) Oxycodone Hydrochloride 5 MG Oral Tablet oxycodone 5 m g tablet as needed oxycodone 5 mg tablet as needed 01/04/2019 12:00:00 AM EDT completed oxycodone hydrochloride 5 MG Oral Tablet JAIRO ([facility]) 0.9 ML tocilizumab 180 MG/ML Prefilled S yringe [Actemra] Actemra 162 mg/0.9 mL subcutaneoussyringe Actemra 162 mg/0.9 mL subcutaneoussyringe 12/09/2018 12:00:00 AM EDT 0.90 mL SUBCUTANEOUS completed 0.9 ML tocilizumab 180 MG/ML Prefilled Syringe [Actemra] [facility] ([facility]) Potassium Chloride 10 MEQ Extended Relea se Oral Tablet potassium chloride ER 10 mEq tablet,extended release potassium chloride ER 10 mEq tablet,exte nded release completed Potassi um Chloride 10 MEQ Extended Release Oral Tablet JAIRO ([facility]) Prednisone 20 MG Oral Tablet prednisone 20 mg tablet prednisone 20 mg tablet completed Prednisone 20 MG Oral Tablet JAIRO ([facility]) gabapentin 300 MG Oral Capsule gabapentin 300 mg capsu le gabapentin 300 mg capsule completed gabapentin 300 MG Oral Capsule JAIRO ([facility]) gabapentin 300 MG Oral Capsule gabapentin 300 mg capsu le gabapentin 300 mg capsule completed gabapentin 300 MG Oral Capsule JAIRO ([facility]) Prednisone 20 MG Oral Tablet prednisone 20 mg tablet prednisone 20 mg tablet completed prednisone 20 MG Oral Tablet JAIRO ([facility]) Diclofenac Sodium 75 MG Delayed Release Oral Tablet diclofenac sodium 75 mg tablet,delayed release diclofenac sodium 75 mg tablet,delayed release completed diclofenac sodium 75 MG Katharine yed Release Oral Tablet JAIRO ([facility]) Prednisone 20 MG Oral Tablet prednisone 20 mg tablet prednisone 20 mg tablet completed prednisone 20 MG Oral Tablet JAIRO ([facility]) Dicyclomine Hydrochloride 10 MG Oral Capsule dicyclomi ne 10 mg capsule dicyclomine 10 mg capsule completed dicyclomine hydrochloride 10 MG Oral Capsule JAIRO ([facility]) gabapentin 300 MG Oral Capsule gabapentin 300 mg capsu le gabapentin 300 mg capsule completed gabapentin 300 MG Oral Capsule JAIRO ([facility]) Prednisone 20 MG Oral Tablet prednisone 20 mg tablet prednisone 20 mg tablet completed prednisone 20 MG Oral Tablet JAIRO ([facility]) Doxycycline Monohydrate 100 MG Oral Tabl et doxycycline monohydrate 100 mg tablet doxycycline monohydrate 100 mg tablet completed doxycycline monohydrate 100 MG Oral Tablet JAIRO ([facility]) Hydrochlorothiazide 12.5 MG Oral Tablet hydrochlorothi azide 12.5 mg Tab hydrochlorothiazide 12.5 mg Tab 1.00 {tbl} ORAL co mpleted take 1 tablet (12.5MG) by oral route every day [facility] ([facility]) Doxycycline Monohydrate 100 MG Oral Tabl et doxycycline monohydrate 100 mg tablet doxycycline monohydrate 100 mg tablet completed doxycycline monohydrate 100 MG Oral Tablet JAIRO ([facility]) Metformin hydrochloride 1000 MG Oral Tablet metformin 1,000 mg tablet metformin 1,000 mg tablet completed metformin hydrochloride 1000 MG Oral Tablet JAIRO ([facility]) Actemra 1 injection every week completed Actemra JAIRO ([facility]) Colesevelam hydrochloride 625 MG Oral Tablet colesevel am 625 mg tablet colesevelam 625 mg tablet 1 {tbl} ORAL completed take 1 tablet by oral route 2 times every day with a meal and liquid [facility] ([facility]) 24 HR venlafaxine 150 MG Extended Releas e Oral Capsule [Effexor] Effexor XR 150 mg capsule,extended release Effexor XR 150 mg capsule,extended release 1.00 {capsule} ORAL completed 24 HR venl afaxine 150 MG Extended Release Oral Capsule [Effexor] [facility] ([facility]) Fluzone Quad [id number] (PF) 60 mcg (15 mcg x 4)/0.5 mL IM syringe [id number] completed 0.5 ML influen za A virus A/[place]/07/2017 (H1N1) antigen 0.03 MG/ML / influenza A virus A/ (H3N2) antigen 0.03 MG/ML / influenza B virus B/ antigen 0.03 MG/ML / influenza B virus B/[facility] antigen 0.03 MG/ML Prefilled Syringe [Fluzone Quadrivalent ] JAIRO ([facility]) Prednisone 5 MG Oral Tablet prednisone 5 mg tablet prednisone 5 mg ta blet completed Prednisone 5 MG Oral Tablet JAIR[facility] ([facility]) gabapentin 300 MG Oral Capsule gabapentin 300 mg capsu le gabapentin 300 mg capsule completed gabapentin 300 MG Oral Capsule JAIRO ([facility]) Sulfamethoxazole 800 MG / Trimethoprim 1 60 MG Oral Tablet sulfamethoxazole 800 mg-trimethoprim 160 mg tablet TAKE 1 TABLET BY MOUTH TWICE A DAY FOR 10 DAYS sulfamethoxazole 800 mg-trimethoprim 160 mg tablet TAKE 1 TABLET BY MOUTH TWICE A DAY FOR 10 DAYS completed sulfamethoxazole 800 MG / trimethoprim 160 MG Oral Tablet JAIRO ([facility]) Doxycycline Monohydrate 100 MG Oral Tabl et doxycycline monohydrate 100 mg tablet doxycycline monohydrate 100 mg tablet completed doxycycline monohydrate 100 MG Oral Tablet JAIRO ([facility]) Prednisone 5 MG Oral Tablet prednisone 5 mg tablet prednisone 5 mg ta blet completed Prednisone 5 MG Oral Tablet JAIRO ([facility]) Diclofenac Sodium 25 MG Delayed Release Oral Tablet diclofenac sodium 25 mg tablet,delayed release Take 1 tablet twice a day by oral route. diclofenac sodium 25 mg tablet,delayed release Take 1 tablet twice a day by oral route. 1 completed diclofenac sod ium 25 MG Delayed Release Oral Tablet JAIRO ([facility]) Cefuroxime 500 MG Oral Tablet cefuroxime axetil 500 mg tablet cefuroxime axetil 500 mg tablet completed cefuroxi me 500 MG Oral Tablet JAIRO ([facility]) gabapentin 300 MG Oral Capsule gabapentin 300 mg capsu le gabapentin 300 mg capsule completed gabapentin 300 MG Oral Capsule JAIRO ([facility]) Prednisone 20 MG Oral Tablet prednisone 20 mg tablet prednisone 20 mg tablet completed prednisone 20 MG Oral Tablet JAIRO ([facility]) Prednisone 20 MG Oral Tablet prednisone 20 mg tablet prednisone 20 mg tablet completed prednisone 20 MG Oral Tablet JAIRO ([facility]) Doxycycline Monohydrate 100 MG Oral Tabl et doxycycline monohydrate 100 mg tablet doxycycline monohydrate 100 mg tablet completed doxycycline monohydrate 100 MG Oral Tablet JAIRO ([facility]) gabapentin 300 MG Oral Capsule gabapentin 300 mg capsu le gabapentin 300 mg capsule completed gabapentin 300 MG Oral Capsule JAIRO ([facility]) Clindamycin 300 MG Oral Capsule clindamycin HCl 300 mg capsule clindamycin HCl 300 mg capsule completed clindam ycin 300 MG Oral Capsule JAIRO ([facility]) Doxycycline Monohydrate 100 MG Oral Tabl et doxycycline monohydrate 100 mg tablet doxycycline monohydrate 100 mg tablet completed doxycycline monohydrate 100 MG Oral Tablet JAIRO ([facility]) Fluzone Quad [id number] (PF) 60 mcg (15 mcg x 4)/0.5 mL IM syringe [id number] completed 0.5 ML influen za A virus A/ (H1N1) antigen 0.03 MG/ML / influenza A virus A/[place] (H3N2) antigen 0.03 MG/ML / influenza B virus B/[place] antigen 0.03 MG/ML / influenza B virus B/[facility] antigen 0.03 MG/ML Prefilled Syringe [Fluzone Quadrivalent ] JAIRO ([facility]) Doxycycline Monohydrate 100 MG Oral Tabl et doxycycline monohydrate 100 mg tablet doxycycline monohydrate 100 mg tablet completed Doxycycline Monohydrate 100 MG Oral Tablet JAIRO ([facility]) Dicyclomine Hydrochloride 20 MG Oral Tablet dicyclomin e 20 mg tablet dicyclomine 20 mg tablet completed d icyclomine hydrochloride 20 MG Oral Tablet JAIRO ([facility]) Carisoprodol 350 MG Oral Tablet carisoprodol 350 mg ta blet carisoprodol 350 mg tablet completed carisoprodol 35 0 MG Oral Tablet JAIRO ([facility]) Prednisone 20 MG Oral Tablet prednisone 20 mg tablet prednisone 20 mg tablet completed Prednisone 20 MG Oral Tablet JAIRO ([facility]) Prednisone 10 MG Oral Tablet prednisone 10 mg tablet prednisone 10 mg tablet completed prednisone 10 MG Oral Tablet JAIRO ([facility]) rifaximin 550 MG Oral Tablet [XIFAXAN] Xifaxan 550 mg tablet Xifaxan 550 mg tablet completed rifaximin 550 M G Oral Tablet [XIFAXAN] JAIRO ([facility]) Prednisone 20 MG Oral Tablet prednisone 20 mg tablet prednisone 20 mg tablet completed prednisone 20 MG Oral Tablet JAIRO ([facility]) Cyclobenzaprine hydrochloride 10 MG Oral Tablet cyclob enzaprine 10 mg tablet cyclobenzaprine 10 mg tablet completed cyclobenzaprine hydrochloride 10 MG Oral Tablet JAIRO ([facility]) Doxycycline Monohydrate 100 MG Oral Tabl et doxycycline monohydrate 100 mg tablet doxycycline monohydrate 100 mg tablet completed Doxycycline Monohydrate 100 MG Oral Tablet JAIRO ([facility]) gabapentin 300 MG Oral Capsule gabapentin 300 mg capsu le gabapentin 300 mg capsule completed gabapentin 300 MG Oral Capsule JAIRO ([facility]) Amitriptyline Hydrochloride 25 MG Oral Tablet amitript yline 25 mg tablet amitriptyline 25 mg tablet completed amitriptyline hydrochloride 25 MG Oral Tablet JAIRO ([facility]) Prednisone 5 MG Oral Tablet prednisone 5 mg tablet prednisone 5 mg ta blet completed prednisone 5 MG Oral Tablet JAIRO ([facility]) gabapentin 300 MG Oral Capsule gabapentin 300 mg capsu le gabapentin 300 mg capsule completed gabapentin 300 MG Oral Capsule JAIRO ([facility]) Fluzone Quad [id number] (PF) 60 mcg (15 mcg x 4)/0.5 mL IM syringe [id number] 785 completed 0.5 ML influen za A virus A/ (H1N1) antigen 0.03 MG/ML / influenza A virus A/ (H3N2) antigen 0.03 MG/ML / influenza B virus B/ antigen 0.03 MG/ML / influenza B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 xD1+Cbr5RrpNvbqodmGg9o93bQI6v3sJl55cY5u8fwcdpEqw5tPfdBuFMCiLsBp+HpKw+financial examiner+LxyNGhD [file] 833+MACEDONIAN+rD6JBDLU3CnSHgaM74ccmtlcFgXM021tBAsfaCcYMNROt+INw9twt2crGF4289aB7mO7TyjG8 9WQ5zlJ8EJLN7I4WoWm1oo8ctWKft7Wlg3vnWmdh9i i8XJVChRotfIU+dLeHEU1nDXOYOht5HVDgUrfDB36pmlq9Fw/0odl7zu8yFdsBc+hH5qzUW4ZathR7Cv 6sYTZlRiDhXUywZBTA+Y0mM9SJvTRhCbl7Pu8SCNo1cFidYgNZCnKMqApFaFsr01nU1z7rKgYC5EKjLA YBWNcIQTxEAH6u+pFWd8TGuIkuf6+zmtLK2D1ozWIN HMB9KcJ9u0vqM/QlXuUSvweVG18gBLpha4eAIoIsjX3IxpjcxTG0KDM6IlqB3XdxS0FOvOyFMrqqSoka O9kPaTqTZvC+s0xrMg5t0IGZc49odTiHahTeVrTpV1ukFKtwLy6Qt583hsZfqqbYPVrZeMBv0Gs9IgZu Zjl/2S8Hu0LswJEzNKLd0/AbCRclGxMeY1U4ecnqx0 TH7TuBAlEKlnYoZR8cL1beFKHUqtts6SGzYCew+th5sAnTvpAiHt3WeX9xcgt2KZCtzRIUVFZ8RDD7g1 yFvbuPI2a9bJTsJgSCEGpFraODKQx3Y8US4oM8gKFTGPmJ9XXtoX4s3MHmMzeLPaPwcWNEO4+YT1+00X 2h5j3aMQq2dqOr4q9x1+Tf0wcMz4jWQ1+ZKIKeZfZI qIagK/yE4o+PkFpp4vhvx8C9zwU30k5OQiUzf9rBjyxF4Tcg24Cxho+80e1Mi6+UgubwzGhH7R3DgDYy arfaXjjF8Nm7nE9jdw5SSHEmSPDTrWdr7OgVjUApvHXQEjCvVe52tTKYM4XqL/CACb86IcnMOLU1M6Lq 0xTrB1aB21k1xKaXTIlBw1vYI1po3/yboHbULsRpiJ 43ewT+Fzong0PHo+Q32diyP/tcEaStEu0dw24cYr10IT8sHhtGvYOZBeerSyGmKN5j4LTo6Qm8DEhoWN eW5Vohi/B/efbfBMPNNAP4YZ8NqzbCOALhNV9o0eJ+line 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+GtXuuT/sXgRMDZIJ6YcRM/Zh6OuAB65bUDR [file] Lbfc9kCllKPQg5DNjz9+Bgmja5b703lXvVeXkWOClCqvqVbvJyoEjS2ZS3Twvl+DiSLc8ylqJnwE+CANAL BOAT CAPTAIN [file] /ZU+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/qY+loM8jGd00ZMtk33V55ptBFIlbyPKeyP6 [file] dough puncher/vp3dhhFKagrk1sfn6anDfaMsICqmEBAbPssm4oU [file] QWaOkirkropEI5a/Moisés/bbFyjXLIuCzWrfDivqk970xNtXbx1+Nw7W0mHCxkCQpYqIptNP/2T//n8rr/ [file] 33htQ8uhsBFuiks3kIm+pW+xdFXy+María/svFhpW3fqgeUG4Dnpss/1fMyroGSPnQp1KYF4wgYViN6wm8 [file] 9uL9rOfBbueDXWkDjOvF14/WiCV3/8liSvipqaJ7EXZcBGDL7esD7/+NbkiS+OJpz/Medical Insurance Claims Specialist/OKFiNCehlLq [file] VR64TOPBu9YSMyGwJIv5Smthdv6A3FQSAqRxjJ/patient service coordinator [file] ru6XHsA5BHK1uLQdTb4LIrVxIlQyLJmeGUVYYm== ID Date Data Source [id number] 02/20/2020 11:32:00 AM EDT [facility] ([facility]) Name Value Range Interpretation Code Description Data Moni rce(s) Supporting Document(s) <0.2 0.0-0.5 CRP [facility] ([facility]) ID Date Data Source [id number] 02/20/2020 11:32:00 AM EDT [facility] ([facility]) Name Value Range Interpretation Code Description Data Moni rce(s) Supporting Document(s) >60 eGFR [facility] ([facility]) 0.9 mg/dL 0.6-1.2 CREATININE [facility] ([facility]) ID Date Data Source [id number] 02/20/2020 11:32:00 AM EDT [facility] ([facility]) Name Value Range Interpretation Code Description Data Moni rce(s) Supporting Document(s) 27 U/L 15-37 AST [facility] ([facility]) ID Date Data Source [id number] 02/20/2020 11:32:00 AM EDT [facility] ([facility]) Name Value Range Interpretation Code Description Data Moni rce(s) Supporting Document(s) 43 U/L 30-65 ALT [facility] ([facility]) ID Date Data Source [id number] 02/20/2020 11:32:00 AM EDT [facility] ([facility]) Name Value Range Interpretation Code Description Data Moni rce(s) Supporting Document(s) 4.0 g/dL 3.4-4.4 ALB [facility] ([facility]) ID Date Data Source [id number] 02/20/2020 11:32:00 AM EDT [facility] ([facility]) Name Value Range Interpretation Code Description Data Moni rce(s) Supporting Document(s) <2 0-20 ESR [facility] ([facility]) ID Date Data Source [id number] 02/20/2020 11:32:00 AM EDT [facility] ([facility]) Name Value Range Interpretation Code Description Data Moni rce(s) Supporting Document(s) 7.2 10*3/uL 3.7-10.1 WBC [facility] ([facility]) 4.23 10*6/uL 3.50-5.50 RBC [facility] ([facility]) 13.6 g/dL 12.0-16.0 HGB [facility] ([facility]) 40.9 % 36.0-48.0 HCT [facility] ([facility]) 96.7 fL 80.0-100.0 MCV [facility] ([facility]) 32.2 pg 26.0-34.0 MCH [facility] ([facility]) 33.3 g/dL 31.0-37.0 MCHC [facility] ([facility]) 12.5 % 10.0-15.0 RDW [facility] ([facility]) 232 10*3/uL 150-500 PLATELETS [facility] ([facility]) 5.22 10*3/uL 2.10-8.00 NED# [facility] ([facility]) 6.8 fL 6.0-10.0 MPV [facility] ([facility]) 1.51 10*3/uL 1.00-5.00 LYM# [facility] ([facility]) 0.35 10*3/uL 0.10-1.00 MONO# [facility] ([facility]) 0.1 10*3/uL 0.0-0.5 EOS# [facility] ([facility]) 0.1 10*3/uL 0.0-0.2 BASO# [facility] ([facility]) 20.9 % 25.0-50.0 Below low normal LYM% [facility] ([facility]) 72.2 % 50.0-80.0 NED% [facility] ([facility]) 4.9 % 2.0-10.0 MONO% [facility] ([facility]) 1.1 % 0.0-5.0 EOS% [facility] ([facility]) 0.9 % 0.0-4.0 BASO% [facility] ([facility]) ID Date Data Source [id number] 02/08/2020 03:13:00 PM EDT [facility] ([facility]) Name Value Range Interpretation Code Description Data Moni rce(s) Supporting Document(s) White Blood Count 9.6 10 4.0-10.0 Normal (applies to non-numeri c results) [facility] Red Blood Count 4.11 10 4.00-5.40 Normal (applies to non-numeric results) [facility] Mean Corpuscular Volume 96.4 fl 80.0-96.0 Above high normal [facility] ([facility]) Hemoglobin 13.4 g/dL 12.0-15.5 Normal (applies to non-numeric resul ts) [facility] Hematocrit 39.6 % 36.0-47.0 Normal (applies to non-numeric resul ts) [facility] Mean Corpuscular Hemoglobin 32.6 pg 27.0-33.0 Norm al (applies to non-numeric results) [facility] ([facility]) Mean Corpuscular HGB Conc 33.8 g/dL 32.0-36.5 Normal (applies to non-numeric results) [facility] ([facility]) Neutrophils % 54.6 % 36.0-66.0 Normal (applies to non-numeric re sults) [facility] ([facility]) Red Cell Distribution Width 13.0 % 11.5-14.5 Norm al (applies to non-numeric results) [facility] ([facility]) Platelet Count, Automated 216 10 150-450 Normal (applies to non-numeric results) [facility] ([facility] Eos % 1.8 % 0.0-3.0 Normal (applies to non-numeric resul ts) [facility] ([facility]) [place] % 7.0 % 0.0-5.0 Above high normal [facility] ([facility] Lymph % 34.8 % 24.0-44.0 Normal (applies to non-numeric resul ts) [facility] ([facility] Baso % 1.0 % 0.0-1.0 Normal (applies to non-numeric resul ts) [facility] ([facility] Nucleated Red Blood Cell % 0.0 % 0-0 Normal (applies to n on-numeric results) [facility] ([facility]) Immature Granulocyte % 0.8 % 0-3.0 Normal (applies to non-n umeric results) [facility] ([facility] Lymph # 3.3 10 1.5-5.0 Normal (applies to non-numeric resul ts) [facility] ([facility] Neutrophils # 5.2 10 1.5-8.5 Normal (applies to non-numeric re sults) [facility] ([facility] Baso # 0.1 10 0.0-0.2 Normal (applies to non-numeric resul ts) [facility] ([facility] Eos # 0.2 10 0.0-0.5 Normal (applies to non-numeric resul ts) [facility] ([facility] [place] # 0.7 10 0.0-0.8 Normal (applies to non-numeric resul ts) [facility] ([facility]) ID Date Data Source [id number] 02/08/2020 03:13:00 PM EDT [facility]) Name Value Range Interpretation Code Description Data Moni rce(s) Supporting Document(s) Cholesterol Level 151 mg/dL Normal (applies to non-numeri c results) [facility] ([facility]) Triglycerides Level 118 mg/dL Normal (applies to non-nume godfrey results) [facility] ([facility] LDL Cholesterol 51 mg/dL Normal (applies to non-numeric results) [facility] ([facility] HDL Cholesterol 76 mg/dL Normal (applies to non-numeric results) [facility] ([facility] Non-HDL-C 75 mg/dL Normal (applies to non-numeric resul ts) [facility] ([facility] Cholesterol Risk Ratio 1.986 Normal (applies to non-n umeric results) [facility] ([facility]) ID Date Data Source [id number] 02/08/2020 03:13:00 PM EDT [facility] ([facility]) Name Value Range Interpretation Code Description Data Moni rce(s) Supporting Document(s) Hemoglobin A1c 6.7 % Normal (applies to non-numeric r esults) [facility] [facility]) <content>REFERENCE RANGES:</content><br/ ><content></content>
<content><=5.6% NORMAL</content>
<content>5.7-6.4% SUGGESTS IMPAIRED GLUCOSE METABOLISM/PREDIABETIC</content>
<content>>= 6.5% ABNORMAL</content>
<content></content> Estimated Average Glucose 146 mg/dL 60-110 Above high normal [facility] ([facility]) ID Date Data Source [id number] 02/08/2020 03:13:00 PM EDT [facility] ([facility]) Name Value Range Interpretation Code Description Data Moni rce(s) Supporting Document(s) Glucose, Fasting 109 mg/dL 70-100 Above high normal [facility] Blood Urea Nitrogen 21 mg/dL 7-18 Above high normal [facility] ([facility]) Creatinine For GFR 0.78 mg/dL 0.55-1.30 Normal (applies to non -numeric results) [facility] ([facility]) Glomerular Filtration Rate Laboratory test result Normal (applies to non- numeric results) [facility] ([facility]) <content>Units are mL/min/1.73 m2</content>
<content></content>
<content>Chronic Kidney Disease Staging per NKF:</content>
<content></content>
<content>Stage I & II GFR >=60 Normal to Mildly Decreased</content>
<content>Stage III GFR 30- 59 Moderately Decreased</content>
<content>Stage IV GFR 15-29 Severely Decreased</content>
<content>Stage V GFR <15 Very Little GFR Left</content>
<content>ESRD GFR <15 on RETIREMENT CONSULTANT</content>
<content></content> Sodium Level 139 meq/L 136-145 Normal (applies to non-numeric res ults) [facility] Potassium Serum 3.3 meq/L 3.5-5.1 Below low normal [facility] ([facility]) Chloride Level 103 meq/L 98-107 Normal (applies to non-numeric r esults) [facility] ([facility]) Anion Gap 5 meq/L 8-16 Below low normal [facility] ( [facility] Carbon Dioxide Level 31 meq/L 21-32 Normal (applies to non-num negar results) [facility] ([facility]) Alt/SGPT 54 U/L 12-78 Normal (applies to non-numeric resul ts) [facility] ([facility]) Ast/Sgot 19 U/L 7-37 Normal (applies to non-numeric resul ts) [facility] ([facility]) Calcium Level 8.9 mg/dL 8.5-10.1 Normal (applies to non-numeric re sults) [facility] ([facility]) Total Protein 6.6 GM/DL 6.4-8.2 Normal (applies to non-numeric re sults) [facility] ([facility]) Bilirubin,Total 1.0 mg/dL 0.2-1.0 Normal (applies to non-numeric results) [facility] ([facility]) Alkaline Phosphatase 50 U/L 45-117 Normal (applies to non-num negar results) [facility] Albumin/Globulin Ratio 1.8 1.2-2.2 Normal (applies to non-n umeric results) [facility] ([facility]) Albumin 4.2 GM/DL 3.2-5.2 Normal (applies to non-numeric resul ts) [facility] ID Date Data Source [id number] 02/01/2020 05:23:20 PM EDT [facility] NT INFORMATIONPatient MRN Name Date of Age Gend*PT [id number] Elena Marroquin 1965 54 years F ---PT Location Admission Date/Time Visit ID Attending Provider --- --- --- --- EPI ID CSN Admitting Provider [id number] ---Name: Elena MarroquinDOB: 1965Date: 02/01/20CIED Remote CheckImplanted Device 07/11/2019Device Seat Scooper Machine MedtronicDevice type Single Chamber ICDMRI Conditional Device -Device was remotely interrogated and the following were evaluated:Battery statusSummary arrhythmia logsNew observationsFidelity of the EGM signalIntegrity of leads and lead impendence were reevaluatedConclusion:Normal ICD function.No significant changes continue to monitor.Signature: Law Vasquez MD, [facility], [facility] CENTERCardiac Electrophysiology and Arrhythmia ServiceDate: February 01, 2020Time: 5:23 PMThis document or parts of this document, were dictated using [employer]. A reasonable attempt at proofreading has been made to minimize errors.Please call with any questions or corrections. Name Value Range Interpretation Code Description Data Moni rce(s) Supporting Document(s) ID Date Data Source [id number] 01/26/2020 11:17:00 AM EDT [facility] ([facility]) Name Value Range Interpretation Code Description Data Moni rce(s) Supporting Document(s) <0.2 0.0-0.5 CRP [facility]) ID Date Data Source [id number] 01/26/2020 11:17:00 AM EDT [facility] ([facility]) Name Value Range Interpretation Code Description Data Moni rce(s) Supporting Document(s) 0.8 mg/dL 0.6-1.2 CREATININE [facility] ([facility]) >60 eGFR [facility] ([facility]) ID Date Data Source [id number] 01/26/2020 11:17:00 AM EDT [facility] ([facility]) Name Value Range Interpretation Code Description Data Moni rce(s) Supporting Document(s) 28 U/L 15-37 AST [facility] ([facility]) ID Date Data Source [id number] 01/26/2020 11:17:00 AM EDT [facility] ([facility]) Name Value Range Interpretation Code Description Data Moni rce(s) Supporting Document(s) 70 U/L 30-65 Above high normal ALT [facility]) ID Date Data Source [id number] 01/26/2020 11:17:00 AM EDT [facility] ([facility]) Name Value Range Interpretation Code Description Data Moni rce(s) Supporting Document(s) 4.3 g/dL 3.4-4.4 ALB [facility] ([facility]) ID Date Data Source [id number] 01/26/2020 11:17:00 AM EDT [facility] ([facility]) Name Value Range Interpretation Code Description Data Moni rce(s) Supporting Document(s) <2 0-20 ESR [facility] ([facility]) ID Date Data Source [id number] 01/26/2020 11:17:00 AM EDT [facility] ([facility]) Name Value Range Interpretation Code Description Data Moni rce(s) Supporting Document(s) 7.9 10*3/uL 3.7-10.1 WBC [facility] ([facility]) 4.42 10*6/uL 3.50-5.50 RBC [facility] 13.9 g/dL 12.0-16.0 HGB [facility] ([facility]) 43.5 % 36.0-48.0 HCT [facility] ([facility]) 98.2 fL 80.0-100.0 MCV [facility] ([facility]) 32.1 g/dL 31.0-37.0 MCHC [facility] ([facility]) 31.5 pg 26.0-34.0 MCH [facility] ([facility]) 12.9 % 10.0-15.0 RDW [facility] ([facility]) 222 10*3/uL 150-500 PLATELETS [facility] ([facility]) 6.5 fL 6.0-10.0 MPV [facility] ([facility]) 5.05 10*3/uL 2.10-8.00 NED# [facility] ([facility]) 1.88 10*3/uL 1.00-5.00 LYM# [facility] ([facility]) 0.69 10*3/uL 0.10-1.00 MONO# [facility] ([facility]) 0.2 10*3/uL 0.0-0.5 EOS# [facility] ([facility]) 0.1 10*3/uL 0.0-0.2 BASO# [facility] ([facility]) 23.8 % 25.0-50.0 Below low normal LYM% [facility] 64.0 % 50.0-80.0 NED% [facility] 8.8 % 2.0-10.0 MONO% [facility] ([facility] 1.1 % 0.0-4.0 BASO% [facility] ([facility]) 2.3 % 0.0-5.0 EOS% [facility] ID Date Data Source [id number] 01/15/2020 08:58:50 AM EDT [facility] Name Value Range Interpretation Code Description Data Moni rce(s) Supporting Document(s) Progress Note [facility] YGAZTn7oWbOGQcMh13/VJDbiBDGky7UyJPfjNWp2DKluHTYkJ2PlCPF9mL1tOFS7LDoOVyQcCrYgAQQ0 lbm [file] AgICAgICAgICAgICAgICAgICAgICAgICAgICAgICAg ICAgICAgICAgICAgICAgICAgDQogICAgICAgICAgICAgICAgICAgICAgICAgICAgICAgICAgICAgICAg ICAgICAgICAgICAgICAgICAgICAgICAgICAgICAgICAgICAgICAgICAgICAgICAgICAgICAgICAgICAg DQogICAgICAgICAgICAgICAgICAgICAgICAgICAgIC AgICAgICAgICAgICAgICAgICAgICAgICAgICAgICAgICAgICAgICAgICAgICAgICAgICAgICAgICAgIC AgICAgICAgICAgDQogICAgICAgICAgICAgICAgICAgICAgICAgICAgICAgICAgICAgICAgICAgICAgIC AgICAgICAgICAgICAgICAgICAgICAgICAgICAgICAg ICAgICAgICAgICAgICAgICAgICAgDQogICAgICAgICAgICAgICAgICAgICAgICAgICAgICAgICAgICAg ICAgICAgICAgICAgICAgICAgICAgICAgICAgICAgICAgICAgICAgICAgICAgICAgICAgICAgICAgICAg ICAgDQogICAgICAgICAgICAgICAgICAgICAgICAgIC AgICAgICAgICAgICAgICAgICAgICAgICAgICAgICAgICAgICAgICAgICAgICAgICAgICAgICAgICAgIC AgICAgICAgICAgICAgDQogICAgICAgICAgICAgICAgICAgICAgICAgICAgICAgICAgICAgICAgICAgIC AgICAgICAgICAgICAgICAgICAgICAgICAgICAgICAg ICAgICAgICAgICAgICAgICAgICAgICAgDQogICAgICAgICAgICAgICAgICAgICAgICAgICAgICAgICAg ICAgICAgICAgICAgICAgICAgICAgICAgICAgICAgICAgICAgICAgICAgICAgICAgICAgICAgICAgICAg ICAgICAgDQogICAgICAgICAgICAgICAgICAgICAgIC AgICAgICAgICAgICAgICAgICAgICAgICAgICAgICAgICAgICAgICAgICAgICAgICAgICAgICAgICAgIC AgICAgICAgICAgICAgICAgDQogICAgICAgICAgICAgICAgICAgICAgICAgICAgICAgICAgICAgICAgIC AgICAgICAgICAgICAgICAgICAgICAgICAgICAgICAg MZYxMJTpRCGuINKrJVBrEATiFWFcMOHjLRZtQTe3O4qqBXJgQDFnWY9sONh6Kz8+FMtQBkOoNKI8xaRw tF8MKU6lp3RzENscDHMcx6LdEGy0CX2WUTFeBCbjKB0YHOhyti8LYNHeHLZngOLJp5nvGyFjIQU0SNQf YjkhWT2RLMXoO7ltcmPjQHTzYTUQDXpgXXFIDYbhLN FCTJDqUZCdGlGySSloYJ2Uh3FyeXP2GIx+Mt2SXH7id3ZiGAhxUDWnUT9pvq5PSPgZBhAoH3GxscN5JX WjOEYdCc1AGWYpPNQyzPYjPyJgOIAVWiRaS5IfgB23QMZTBz9+KWyoneAhJmzHJsAcRLRkw0MdWDj2OZ 1ZVKFuEEk7lTHfPJNlL9Hsv5KeNq28PCJpFqgkS2E0 oX4yPaXPSNJ4QPEqDU0HOEK4BJlvOu6oIENiVHHqVjR2ASCSLX1XHMUvZRPnfLEgZKVuNEZETQ8AMTxm RXO2LVIaxjXaqGFyRXhkHZ8JTERausTmNzMcEEGYYPd+Jk9CTD7ww0UfYZqrPjZyXM8xjr3IJIhWUoPq V7H2aYIjL1U8YMehUq1FMPTfXCUeEczfGHQVLNpuIO 8LBB5asrB2XQ0LzQJmKJNcODMcdGGlZWt8L48nmVKoDWuhSL7UHAS+Aurea+Rh9KHUHpNBCnLWArIcRpDU MCEoAbZ9UpH4YVq4YcQ0EwPY27mUbhjiQnHDtzMI9IKS4oEDNeMHFDUD3CyKKztD3vmuLbOXGaGKKFMr AvR10ykMJfDNInGUKdKYCbBa3IEVGwK2SmgqKhjIda csYoXFPfRMZHNQ5EEMzpxnLqoZNpbXsfJB71lVrlYD1YSp7RFpBbGM5pio2WdCQuOj9PJLJoDM5ZKOHc KHMsHBGvDNG9AVXdVgUrJQioQYGzWQCiQCN8FPHaCIMxHS0GIvCaEHInDjnuIKQfDKVvIJPctq4OUBDm SYUbCYk8WZPlZJHcVWNtLSxnAHSeYDCzDBP6RVZgIB RlPS7MSfAdXKQpGGE9RvpiAKZvDOTiwd6NHWOtDFNcApS3WaPrRAOjWPBkJYyrPQAnUSW0HNCcCHLmUE LjOK3YMmGiLQQyRIEhHkPlJHYnXSDjfe8TUMIuIKAtEQsoLSCgMNFbCDNpSLbdILJhJWR1YJT8TMXyTJ RbEU1CNwZoCLWiBVKeWDLmYNYyDHHcsw7PYUEmDHZc AXTaBDPdHAJyGHVgXLmjKEKjXWEqTlugBPXmCNVvPX5RNiIxYMHhNRU1HusfNPMnAFVjon4KUDPfOSYq ZMO0PUQkYUWfOFIvQVwzLFNrFDBaGuAiEPJzKOWdEJ4COaZmMWStLBL8ViJlXCAlFMYjys1JWYAaQFWq CtQgTBZjQHDuZTCuCIufWKUxGZN8QAEmBXQyWALqFY 7SZrRqROTmJnE0YmOmADEyCZCwtx8HAJFuBVFuKOb5NMKsTAEcSYLgDCtsULIyRAH8SlN7CZWwOKMsUD 8RAeOmKDDgBzDbIgNoRPNzNHLudr9OHLFnMBAvDuXyGLYgUBHoWJUmHQclVIZfWDR9IOJgLBFaGPQkTZ 7EOqIvBHHrOzG8BLPeBYCfMKIcfu9PCPQmFXQzHuGz AoCtTKBfNYYrXOsgFBNxFEA9LXE5AOZxEOOfMV3ABmCjHUSyZua5WAGpBCKtVAWmio4OJPQpWOJyNJCx RVTrMLEbBDGoEIhuNNZuMKE8DNrkVZIrGZOdGL7VLbWrLICtVos4JSImABZyGDDobg3OKETxZTJgHEYd XZOlOROaTOJpEEq9rgBwpMXdAUu0CK0OO5EypkKlFv GLQz7Qv210CITmUTUvFo4AJ4esZe4zNEGbLKIIRm4INBc3H9CwG4LrLHx8DTW0ACUuYqMdMhG8GViuL7 QgXUB0TXS+JPlrQwPcDWM7VSSmKjO9CHC8I7OkXRQ4WXY8QHKvAgibXA5aTNYNSq7+DQpzdGFydHhyZW YHMkEvCkY0IEimPDEPLy4K ID Date Data Source [id number] 01/06/2020 09:15:08 AM EDT [facility] XR SHOULDER COMPLETE [id number] RESULTIn terpreted by:YUSRA [place] SHOULDERCLINICAL STATEMENT: Status post right shoulder arthroplasty.TECHNIQUE: 2 views of the right shoulder. COMPARISON: 03/08/2019.FINDINGS: The patient is status post total right shoulder arthroplasty. The hardware appears intact and properly aligned. No acute periprosthetic fracture or dislocation is identified. No abnormal lucency is demonstrated, to suggest loosening or infection. The soft tissues appear unremarkable.IMPRESSION: Since 03/08/2019, No significant interval change.Status post total right shoulder arthroplasty, with stable postoperative changes. This document has been electronically signed by Enrrique Hogue MD on 01/06/2020 9:12 AM Name Value Range Interpretation Code Description Data Moni rce(s) Supporting Document(s) ID Date Data Source [id number] 12/20/2019 11:45:00 AM EDT [facility] Name Value Range Interpretation Code Description Data Moni rce(s) Supporting Document(s) Follow Up [facility] CQDLIc6qKsGXDyQfZRYkExwRSJqxQGvqTZSsD6Z0EVcaLk2UOWucwlRkCMUkFp2+BUOiPL7vda2sVVTn gMy [file] gun fitter+jV2WWaT6trO5vwZJQeHcO7TY469BzvgBXdDIKm [file] fwzfK9bnduejXi53DekK/line 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+ed/09R45wn3n8KABrtKOJ4Ik2jSSCLHzljBF9gpwUL5zCXp4elgPJ4Ip [file] nVY9d/Mary Kay/naW7jBSwe8FEbD/onwLHydtHzeIQdvfq+KImz7CDqsSka7XnQO4AI9B2D879AHRoGi7kZs [file] JBh6gTAnX7lvYUkcaC/IA/dirt shoveler+ZaVs+YGdgN+c9AcE [file] 8AqBrlvVB+ttrZuxbDK29csRGrXXtDWZ8YW5V8l+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 [file] +9Ai/7EaYrZyS83AJc39gXSzvL33MuePQ8pvl83Qxh8ZQ7EahsG1beix7Dz1Gy+staffing director/HfloeDhZHTE2 D9rzxT8M3G6poW4R6m1WEHvay3mWhuMLVLLFlBUadCtqvxWa88RMshYzVlqF8V0QMnBkKM181b/line 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+8q [file] 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/2AoEzGYggwk16EaP5iWTocaV4rXQQc/Zssx29G7qGEg6oFcHf6FlCvAfLnLspe8C6hG3sys2wu4i [file] 6kKSrRNIaqQOZB/78jJqt0Unka+mZA9dWYf0L1w/wedding coordinator MmPhSApwHSzs743cEaOGa1GuAMn/qtLz+MhN1f+maiNM/X8av+0r762NegFjkG5343/BaC6yHdSxkxt7 gD3Y7CIsK33vA6Mo1U/7UWmbK1MaUUOsKJ6RnvKR3Q1/ScJyOfcbMrzjRKnXcFP1eR81kuGdXL2Q17Hg 87Kp/1NOLiDxxLiIVZUb4u1kCA29lYoo1s4LL9Kstz fHv9jrYIQg6bfJiTIFuS58rjqDMBXwQkXESHKZvXMi78I5L2HQUPdD2EjuT9Wxs/pk63ZqbrALncZCoS rekjiuiDJvaMxxq1ohXrC/71/DIpHsRzQ2fJ4eciI0SaF75V89mYMHccq2CqgaLMd7iJamHhQjKw8k0r Kelsey/Jf0CFtAZ/12Dbb4VpWYyytq6x+oPeth+IHgCk8L [file] i4TYMaDmKRF/José Manuel/r7nB5rvoq2gAMvJS3bUEQuvgeFYjOremwXUy4qY87fcgXHdcYDC4US6CLIMr22U6 [file] EjtGQL2GQNf2d+2Xko4rZqbkPm7c534kM/NM/VIDAL/DFmKt3xVwDTv/Pks6sgT2I8IyB422w1bfLnX/wQ Ft8QAtl0TEYj09dk/rD8BHZ21uISRMWGkfqMqIjr9b05CwU0m+3AmhINs6Zk7i2VSEWyTNHyBpHiSJ6z escXhIdvws/S4yZrXk9ta3ycd+wGdBDPhAbC+KIqr8 +5vr+2o2MkHBbvmg6kzU1rf45n1CTF5y4CGNMPSFVm7pFkkXVBI3fCr9NZ6Je4+qFi3+VDN+m1oHN6Y7 Bj+/pdMU26F3akyLvtI/uqrlMJX/welding machine operator+Go9sL35b+osiEmCPrP7wSroNbuNLW2+/JGtvUGtlm/gGIfR [file] Carlos A+6/1+8a1rLdatSvGjygWX9CIIMG/FnyLpl3/Ql9eRBZiaKOWMBalDUkzHCJkbAlhSsi3uIhXbylc8 [file] AJF6Q4EVLpl2+37U/8ow2VJVvGKajFpzl5Kk//wedger and gluer+pXGwlDwgMQ8qYLqwWdzsKLoc16nWn76XdtGnuH [file] ik3Lk6vwhxTPjscD14BT2PK+vGjYKWjYoOU5O05zqQK8TcJlvdSoSViUrlSw3f2a1uQXSaP//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+qq4A [file] 5YXGtH3ac9bAoyVtCRHEKpOEhFg/MATT/lPR+YNm/pwq ghMhb0tRHoRU2RfLNwM/pYr+71uKu4ykvTzKUTcBbPCXIsne6MJEUNHmW31/ISymLhq4rWYX5wXsui9k f6qbYv4HyEkerb3XZux3wOpTyTxeVm2p+cdcmgaAi/dosVTFYaJ1SofB8NDJaxr768mVrVcUHBxQyAtU U5n6qKmZobv7p9gxRQK8CHpZpPBXWGG3vB2Sx0h8Mg 2s4Y/zPa1bRK5sAmlnIE3vtcn1ON8A6ReRbG3sYcqQGxqJJE+eo0uq0DXAmrH3tL2diVlhR259qQXlVA UNAZrOPJrimPNeUwjL9KjXYDnTyKKiJSyRE0QbOo41HxyyUSf9VEnMmLBi2HEYDNqPUkmM7NlvueKjqw +0PTWUFet1Jl+0qcH0wsyly4oU4ni7hck+RBpfq/oM lJyVrYykDh2fs6q50tIw/veg5tOm+rsOqudF8Q2vXAVAFcv0vvohT6GycVQY1gjY1qbophOKhVViRhCz 6/2u8f5HmcjszpBVKTh4kLAjbAp0GStpgMEbm5DTTPT5AWHtZcDUJoAC07kPywluxvVffDJ9psOLwU+o KTUPK2YeeR7cCc+37/tjNn9jrhNp0wvT9BUVrxFcZH /adobe architect+HvMC5M8tqhGH5EcUeZGoCiOoRal8XQWsKhB38Bz9A8AqaC8W8uTXbfh5/e4FOHon9Sj6em81vKs [file] 8nQG1gLKbjRaA3PMq+x35VrVd40UR/ground instructor advanced/Ab+uG+F/xJtHvP5wgVpZaKr+sCAdFKbfNCKN7pwVrJTjVG [file] 8P3dR4nOnKOc6bWy0PmBx3SclXg36r+vp securities+8JvxzRJuNl+egqvP+pQF/BJhUvNSfpG1R8tVMdsk0XJv8r [file] Q/y3+uVP9mJ72O/matt+q236rQQzLJCIAWWjOXIzTBUVueJO+MKDuDP3jhcQe4A3s2vgQCif8170hw1mou zdMEL3lgza1fmTpYGjuKen2mMcRTpbiwa36gxE5MRRxZP8hbmysMXXV+41HW43qOgGb3ASBPHx4Zm09i 8T5nqFjeOh2fRJK8Q4OgYUsrXsPC7LB0oox25jMwdw iNvpHXx7PQUMkBByuSg0iAfxgiHHf1gCM14OE/Bbl9yUq1vMfkWoV6YbonZ4HB7wn8ImkQ9pm4Zr/osha inspector [file] 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 OPERATOR/3ArnsuimBY1ij432f1h4ypD8LhttqbdUEKApF1aMyRQb43pEJoPwUFS9jdVVl0+zsPcPD30i3pwW [file] XXh/Af3j8jqYncAgXPkiTT2cEyQrTd1KKrk3cU+clinical orthoptist [file] /b+awU4N4VPPn8Pp43Q/8VKXLp+T1/U7cKrQos [file] 1Q6TWZD7LBvNPIDBaOLSYIQr0SaCN5r2RSv9sVq+wedding coordinator RBNgU4QPlRu8+GD4+RDLqPXe04Bk8c5Zkjihys1QlWMam+/mfB8/Qzp6os48r4cda+601LrqEh32oJWu CkJBdpvqSfIQ9FQrha7RrbVlA9vXm135bYYsAT9wqjw7Z0/mDADVhv6jK5zgSMYG/p9SiRC9aMS6HZ75 O49Zcjbbyuy8cIx3SpvVVOnA/srRbBf6Si5Ry9uWf9 Y1aPLwSLVcg+3tyv7RsH50zPz0kA9w3tYTaxZPwanE67lhQL2M+bgl6KUA/7jti2u8N2UTsKC3BoRRpt o8xb60tHsJRGjTIL2wC1najlQvbmDPguG8maasKev8vJw5P6VN719i/Q8ctPOfxoEbxvBOf9Mnrzv6bD GdE1ii6Lo4VGOf9sdk5PaHUZ+AFLNhFtpImU39rlLm 7xaEVH2+RBbxSp3UtaHhU+38z7SV43MTDmgQ3koieDAICxonRn0ihHHQqdJ97vocy/biwiHLPQEuhqjx uc/nuidYnt3vZoGnVSUIeBiBWKLzdQTxEHuKKlGgVmhnOWCjtnKR312HVKnH9UoqyZxM+xJyqxA0uZAM P74GsecGVoPwkXOYHkOWKZotcVhRDOIfP1K8y+cZkC ik/3hcNxymZLN2Yb+cM8z/QkYhKu6OMSj3dlOmuJTo37CbDefGypEbmOyCumqmc1oDln4zo9wMFLsiSy g8kbPCcWTUt5/BRLZqKVVyr0nZMivSS01N486ySHuh4Ew4qMjD1ZfDACHTrVfpYKNg5y7RkJpsyc6exv FyAwQJ2tEpmyQpYCfxZpl8FQKmai3S+lc3rSU+Simin [file] bwrKDE0l+6q8cd4pmW32q3+display manager/Xhu8eMAWscFZjpXJq7THXK+wZLCUM7esH6QkB+Fm7YLwIERx9F4/g [file] [facility] HospitalqmvOPdyOhA7/uzcDQyRE1tqjcyOqO7Py [file] 1b8dMmu5cJYfKMjzVwZP18MHpUrd9iix8sHrDr4J9j88tZ8ajyq+XMHfkCz92tki6jjg/lUqstdv/CHIEF RADIOLOGY DiNqqvWc7ivzhIK0ELQb1x6P+QSWewOTTfRo16W9+j GNimJ8DBL3bW5mKIqshJQAafRVyqKTGiPr4xT5cRlMQCaI61+goQCBKnoPi8MjzTjjEhMELkwHR08fyc WjC0f1L2Jg29f0Sjm/fwn/wsVZLLA1a6Q6Ke2wh4zBxJJaVVVNLM/37a11IEphotrhhBdbhJfLyF0udp NuEgRTUAoWOmUIi4Yj2Jq8lXBSwGwVTodZ0W9IXnIc f9cfX6ppQj5PjH/WGL+k4bFVSCTPSCh1Sq46b/JRfbCo5AGqKt1232SerqMnc/hUP+4gjwtDC2CENHxl 25zHVU4KKTg3bT7ea+mTIFCK0aadcnnPIITiDp9AQjUYyuAhwEBJtNXnjmQC7/fvHA/3Y9yAPELUOOdG hH8FvexJ96cNzeq6lSUiWF7wvKCQntppK/bjiwpMRI D5ic+odV7gYpMG6e/BVhsbceC3hcTMGDWkrw3MXO7BmVQZxspYe+qAsXN5Gg93iR5Zw0hVdjADOVW8Yq pBp/KdmNa6NRVOjCMMZ1k9M4SaG2c5QryT5GJokOcoF41zX3/iR+6bpU14MAZFKa4QEpv+5NYbQWVZpi 03bR0ndOfH81Aa/AY9KdYs4rkqOqHlEgoMtXSVSpbZ 7nXP4BEB7szDvTO4xz1vQI+oGt8aZXiy4pF5biKRA/JKdyEHJDEBsuME5HuZzxim39X1aF6rFW76zz20 Shanti/k3GFX6/2kDTjyvnleT6ON6pXd2NE4b4EEwKId4QlXTqh2X5q7KdQj4LJ+MzF3pN0iVM380B2jp7d [file] student services vice president+N87HW/9NL/GYihMzuE1Kw8PF+FUtvEVKLw0kfk [file] HEALTH AND SAFETY MANAGER+ObI5wLcSzsPvaANJP0qRAOBXVp4hYzCljl4HWn [file] TzWADiWBVPWIod7V5zyhlFLyuXR6jThAlDNRYwJpfY6260yWnRkDx17q0eAzht/terrazzo installer//mkm8Rmiyv2LC [file] 0/r8Zj4x0uiheSozu4/brass reclaimer+ftvOU1GchTlFjw8SKMByEh0mTcQ+u2ttutRQLZ9DOxylivSRV2J3YluN2 [file] JUAN M/aOIr6NILmboSSlST1jPDcAV2QY/lmw5eK2AMVqux4HH1DbPbHo1BFajbOOBEtrKgYDPeEeyaCh2j [file] Jean-Pierre+N5B/mmmWfUVm6zmlcMIc95WRIUD6S/LKB3PsB2 [file] xHX9eIDH8mNVG74L5cEaSsKI6dynMwQbYyjqi8J2Y57GvaFhd+jig builder/jffXsDvW84KE60WaVTceIomLY [file] K4RE470tnsj485IGEE36Yi4vVjm79B4KpN43hBUXoK /+rOEefZ56hCTI3zjwqVzYYql+rnvcU4oU6zO+5Sk5//N84gNq66gbVmnFSWs4F7g+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+3FmpR3xzo3D [file] yYtb/Medical Insurance Claims Specialist/usu9p1KdqqgPs88fGVjbHnjug6YinYw9wP [file] [facility]/9+xcbT6bR5Cnk2XxJZ9eYkEWMvW5YUGNGDMB+TY7svwqH5NgZoIjcceNcHRz9HR21p8Yp0n9H5B7 [file] zkha/R0IeArgtCXbkYO0e5Ye2FaAdOhNtJwIoj+lens assistant [file] 6zMuoEBW9yjxpiFTsh3BgISn1EIrEVcryNrWR86MG97egRZdQpmcv5ZozyGnSBTdVY6Z+ya8Mdkb+Kevin IOjPphOLQ98IBA8/CTuPkgcSJy5UbOrq54AcjrpEWcDg+4kPDvE7WtmxYZB+aJrjrTHekVZUeOJtwJZX LBx6PVlhVLUlNG4W9nKrT99i7RRSBMCje+eq7DaH6Q akbldvbH2aWkzufnvZ9yAO24wKKGOPT44QckcSAil7ndPMzbDJNrbNElNicHKUNtvCjPAdwmQ5z//gary Wy3EF8112lsz2Tn20OtmaiAkHhDPZQLEBYtL94/u7p44/fffImrbe4QIk5HEOpj4dWSB3QlZpN2nN0oR lREeWRoN2HTbATp5/6PgeD7Nyfn+6VceJ71vZ9Yh9g YwH1z7eg4yYt9nWaEGbu1FnLSt2dci1NE80FwhoQbI/R4IJ/J8LQlJj819ZrgzAqCRUIpae10pdo5X4b x/+9D+f1jqYFmB42ME6ZRWIMUcF+pu/D+XZlMBeHoyxR4R5RA+aoUouUL7LOhdB2CSzHDqamJmTaC4Qu Yv5LXcVkDEl2Crvadh8P3cHN9ECB8ISEAScLl57pQ5 AGL6gnKM9E/Anco6UQX+FtPoh4tOTAOKGZ97xxGIfvPu0Kr7FPFIHcBlVaBqD/cKMWff6Ns8GeMn67U5 SKALExJcqetTAV+lRKIFi8Gx5HkkjgSHJL8xuaK2FiB6bj94QyGQGiybME7xbH4t+kZW/OxSAOqfrKf4 Ec4V472nRZqfK7tJ76D9pbbaAziE3lXOwHf9oa16vb zP5L+JCdc4n937OIFfRs3dCyko1EdDWnjHYkV1drkSV0qTHHQG8enHqFFcplG16bv3Dl5tNXA1Vp3B36 sb1W6Tv7rZloKJ3q0+pIlTMqsh6LV9jLdO2EM+x86jeyNnhqvKojOsPtx3uDBuG7bmnLrsfyG5D+4Rx4 f9EAjWth9U/jIB0GhaOg7j/N8YO8PWDa8zhFPcDcJM VZP/gprza78T9w+/+/diARGlUdB/wedding coordinator/j/B/n/zj/f+uviue9h5Uz4qFqTOb6hddk2DUq/uAGKyKm7njj [file] 8ADyuBwpfYcOe+B/AGl+OaS41DyhkVMsCJYTzaOBnzHxptAogTL8O/w/Miguel Ángel/6EqhbG5xFvsmhEQbUPGJ [file] +hwqncpqOSS2zfmlRRe7x714deBtk8v77v7zlVpF0hWGnAFNZrqgABt9+w9C94Otrb0Z6Mb08XczsN or8o6/9MJVxLsIvgWwn1rPE6ryWGqFgWQGRb+2V2v4wd3D8+Fzh0kGSvB3+BqaKkUcSc7yH4eSUn/eLj 8JC+PQ5GU6UPHCn+FGdmBdGTMOtkq+P1K5OiiI7XvE krZprE7HKS6fTqiTR1lgKB/PhR5vVT8PNHk/qNXjfiDfL+HQDW9/W5CQ7XAJUiEtrTbuOpBxiHRxV/DT j9tWBMn7PTvWz7TvzMye7kMp37P/E8bkOQUf3+5qh+5Bl8rjzot2utl92QM3T8E+LMIB5s3D9I2BJe17 XPsV4yUTN540YEySefyFw7MUZ8QEQIrLGHe33XA7zg ZJRoC+A9loYlGF45JoSbPQ5RQny0jISFsGEq9j1Ey3l4myA6jKNq66POLlJFAwvCp+zzoxacEgAZP+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 [file] f76nMZWen5xx1G21Ah98T7FleS83BymAUHKy9id+line 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 [file] FS08sZ3DyfouFXDgjV4zTRI+CebgOutc3VDsVOobwFcN4B4vAZ2ajkhI9EDeJgSUyIBUSmWSXLvLW/wedding coordinator DZGKK629UJ9oFPj5KLH9R5GLn5znchKCirYiqz4DuB 6zQIE81Du8KuQCj1YUgd8HHmFSBm/4bT7awxU7nuSdbQfrenGgYHhJW+46nUHGLcQ92HkJXL3nDMuzL4 96Lmhs8XJlpWSnjMdLbSNhtSu0GW6/Lom4D1FOFp11T89Q6DVIppo/yp3TVZQwyhrM1WQhY03eTKXHzf OaDnNtikIWZlt/aPHSeJbAUR8BHGqOiw5Aq0/W9DbJ VU1BVFT89YFgL1GwsJNQB7tEesfuPfZWsxc0dntAFmZomvUU9TNcF30rSONakgAVvUnoI29snUIMxb1P GClAEp0KBjYznOzOiOcW++XYU3yUnem7514svh0C6GU6HCZReETcsXGQFIOzylaE9DV4MGtRTNoySXWo qGTDM6DrTVc4O8GQfYo6Oxng73wbDOOCQ7CQPG22vG uUe3I1DLNoNm4XtIsJX2uMTeWuFPj8nywxYZKWpg+cpCLs0zvXKpLxZMVxbClIGDFmUb0NXa807shIDs wn7I3tRzthR+sTKrtaHuLjSEKXtN0q13hoVEwJ8VB119DnssI833hVQvADgab507dN1boY7RU6H1vsKV lw/gKDSfqf7dpEGWe4cQIyObRJEyZWaBwdZa96nbW1 Nnh6vGLMq0faYrvFLn8Tyz1q/SD6SZgc8a3yQ32e8FFMcFHJ4dTAgDInWMQ+y/I5+8mRpzysp3iz5+Wilfredo [file] Efraín/AWU7567JYid10DRErZ7OnjBohF5KS4qFhc4M+kG9W51rb0sh33mTAP0gnno6GVh4MLY6ihg+bvog [file] zcG0kTDKi0B5ANKKMMUBJZOIP7EaCfZGMNRDdCSNVzIuVXVsA8ABV+SEveE0GZPOZ4STXYDsegDvR2Nh I1G3N7QuTCV4N8CytIWb7mW5Meu4DmNTNgUGVtSJ6lnuAzNWDtCb5MsBibLMEmA3U7fOIhP2sSHBQiVg TbPDT4CQEyMq2foCRxAC5SIqqvE2HpOEJwVLMAIIFS Akx+QXDSB9OrxzaVSN4gDxW8tgbHRZY1iWcOWNfVgQwYBRQYURYqwBBJDhZkIyJoo3w3BZBULnTyK1nQ 3YbSIiLYWIRio4KATmDRRaVDJj9KPL8fi8AfUGYoQPmvxkJlDnqLAOfzlWUjfLqoLTQDAgXfVrRjQGCG OhLzTP3R ID Date Data Source [id number] 12/09/2019 12:00:00 AM EDT [facility] Maxine Zhong MD Patient Name: SHAHID MARROQUIN [place]job Date of : 1965[place] [address] Date of Exam: 12/09/2019PH#: Fax: [phone] ____EXAM: ABDOMEN AP (KUB) X-RAYCLINICAL INFORMATION: Check for video endocapsule.COMPARISON: 12/07/2019.The digital endovideo capsule over the pelvis on the previous study is nolonger present and has been passed. No other significant changes.Chica Mcadams, LORIE/Vanessa you for referring ELENA MARROQUIN to our office. Electronically Signed - CHICA MCADAMS MD 12/12/19 9:42 Name Value Range Interpretation Code Description Data Moni rce(s) Supporting Document(s) ID Date Data Source [id number] 12/07/2019 12:00:00 AM EDT [facility] Jarred Arreguin MD Patient Name: Christi MARROQUIN [facility] Date of : 1965 [address] [place] Date of Exam: 12/07/2019AMANDA Leach [id number]#: Fax: [phone] EXAM: ABDOMEN AP (KUB) X-RAYCLINICAL INFORMATION: Ingested endocamera, not yet passed.Comparison 12/05/2019.FINDINGS:Compared to the previous study, the endocamera in the right upper quadrantis now in the upper pelvis overlying the left 4th sacral segment.Therefore, it is either distal ileum or rectosigmoid in location. No otherchanges.Chica Mcadams, LORIE/Jonnathan you for referring ELENA MARROQUIN to our office. Electronically Signed - CHICA MCADAMS MD 12/07/19 16:12 Name Value Range Interpretation Code Description Data Moni rce(s) Supporting Document(s) ID Date Data Source [id number] 12/05/2019 12:00:00 AM EDT [facility] Ilan Ha MD Patient Name: ELENA [id number] Date of : 1965[address] Date of Exam: 12/05/2019AMANDA Ojeda [id number]#: Fax: [phone] EXAM: ABDOMEN AP (KUB) X-RAYCLINICAL INFORMATION: Swallowed small digital camera (presumably formedical use). Evaluate for foreign body in the intestine. Please evaluatefor retained foreign body. Also history of clinically significantdiarrhea.These images were obtained using digital radiography.Comparison small bowel series with KUB 07/18/2019, CT 05/16/2019.FINDINGS:Pedicle screws, arch bars at L5 and S1 with disc spacers at that level,unchanged. There is a dorsal column stimulator battery unit overlying theright mid-abdomen about the L2 level. Also superimposed over thetransverse process of L2 is a ingested endoluminal digital camera device.This is superimposed over proximal transverse process or small bowelloop/stomach in the left upper quadrant. I do see a curvilinear stapleline overlying the left u pper quadrant from prior surgery.The small bowel loops are not abnormally dilated. The right colon, hepaticflexure and proximal transverse colon are well filled. Air distends theproximal transverse colon and there is abundant stool in the right colonand hepatic flexure. Smaller amounts in transverse and proximal leftcolon.IMPRESSION:The ingested endoluminal digital camera is seen in the right upper quadrantoverlying either the proximal transverse colon or in the smallbowel/duodenum within that right upper quadrant.Chica Mcadams, LORIE/Jonnathan you for referring ELENA MARROQUIN to our office. Electronically Signed - CHICA MCADAMS MD 12/05/19 17:31 Name Value Range Interpretation Code Description Data Moni rce(s) Supporting Document(s) ID Date Data Source [id number] 11/15/2019 12:00:00 AM EDT [facility] Wendi Grahamp Patient Name: ELENA [id number] Date of : 1965[address] [facility]: [facility]2019[facility] [id number] Fax: [phone] EXAM: CT LUMBAR SPINE WITHOUT CONTRASTCLINICAL INFORMATION: Lumbar radiculopathy.TECHNIQUE: Axial non-contrast images from mid-T11 through mid- sacrum withcoronal and sagittal reformations.FINDINGS:Patient is noted to be post posterior fixation and laminectomy at L5.Alignment and lordosis is maintained. The vertebral bodies are otherwiseintact and without acute fracture/compression injury or subluxation.T12-L1: Mild disc space narrowing with marginal osteophytosis isappreciated along with small posterior disc bulge. The lateral recessesand neural foramen are patent and there is no evidence for canal stenosis.L1-2: Disc space is normal. No significant disc bulge. Lateral recessand neural foramen are patent. No canal stenosis.L2-3: Very subtle posterior disc bulge noted without disc space narrowing. Lateral recesses and neural foramen are patent. No evidence for canalstenosis.L3-4: There is 2.5mm of retrolisthesis along with pmdqn-kf-wmmuinna discbulge/protrusion, mild disc space narrowing, endplate sclerosis, and mildhypertrophic facet changes. Associated ligamentous hypertrophy cause mildcanal stenosis with narrowing to the lateral recess and very subtleforaminal narrowing. No obvious impingement on the exiting nerve rootsnoted.L4-5: A small posterior disc bulge is noted along with hypertrophic facetchanges and ligamentum hypertrophy causing mild canal stenosis andnarrowing to the lateral recess. Neural foramen appear patent and withoutimpingement on the exiting nerve roots.L5-S1: Evidence for prior discectomy and posterior fixation with normalalignment and appropriate disc heith preserved. Postersurgicalhypertrophic facet changes are appreciated although the neural foramenappear patent and without obvious impingement on the exiting nerve roots.Impression:Detailed analysis as described above should be correlated with thepatient's symptoms.ELISE Armas/Jonnathan you for referring ELENA MARROQUIN to our office. Electronically Signed - WM CAT MD 12/22/19 7:50 Name Value Range Interpretation Code Description Data Moni rce(s) Supporting Document(s) ID Date Data Source [id number] 11/01/2019 11:30:00 AM EDT [facility] Name Value Range Interpretation Code Description Data Moni rce(s) Supporting Document(s) Follow Up [facility] MMBBWo8sZsQOQfSuFPKiPiwPLRokIQvuOCIzS4I1EAooWl7JLNqxwbBaMTKuIq3+FHWfLQ4djd7oFDRg gMy [file] Ofdha7oytyj4WZd42l44Vd/o46A39lqIXoRCOcT4l9AHIzu1PF2sgeaU5HekJ2I/QuGzsEJS5PVbW/dough puncher [file] FISLJnxj2BVVjG8c2SlQdwV3PsCoYWbhW2Ll/bE5U3yTpdBK+0ozZ6Oj8oKr8SISl/5flsU/vp securities/w1hGV [file] TuD8M1qr9RBh3ZcafYFfGfBxeg99nYx3+FLAKE CUTTER OPERATOR+n93GzWPRuqRxoOSZFDKcd9wt/Y2ybgcei3KEcgAJ0sv [file] Ann-Marie+5ur4S3v9GCYWaJHAAeNQLCFehoEyLzDy2u2QnsKHAVp4HQ8d9HoFKu61Qu5Ex2Z2MyaTzbu5J4hG [file] Y4ksat2iZ/L+9OeL0yhN9slFOPJrK6b8mm6ZcWwgkNV46o+5fbZJY+weatherization operations manager+Vwrr7/xxlgYL4RlgY3cXSF [file] supervisor boilermaking shop/tMG1ZO4N7/QBFL/PtyHtgpvkzSiNO+fWYSLh8n5VTjV7CKx75XJsm/n7koSsQwBaxfyonJT5e442 [file] Ravin+z8TwyoeK1AfqXyYlhN/VImoD+xTI6u8jWPbJ0Gzz9TCKwd/a2VxW/odx0WyIvWbpErEvjs8tIOcl 8kKqmPYgxd870GwXONjP3AmJduIvwsCAvI1m0X0lo4 mGTUM9ZeXXIS4dbo2EpwovezVbV0TKstdIl+ZRFTUHSFzu0c99zc9saPLI12agFbt9oHTjZKl/Tge0Ts GQiSGyerPcOUmbFN3N2bN3T2MC2d4Zq8Wm4GtYv3KWoJJRkP7dJ5exzbmGXVJg5EuR9piBld88G86zVl 6Qp3DBI7aE/npVGOagPNB+6cozXc4And04JieDz/1A Gk6zQTbBTbYqjzT/COYc48JCgUnVRrRsfPPTWzk+kNDu9hirJp3FIRi0eQV0hrMIGDBRSwrcz7HyTGYe vAIwcB2fn/H9AqRtmU1lWzTon7zdhqe32/9Qq7Qit1siU53+/+JBQEmtI0YRd95j0J7T+mu8hWq6zjC5 BVTKtUiLQJ/50/2O1Qn6KjEIrUBopNHacxXZEJKWXz 1Im4yf6LbXaaB91UPK0PskEEmImB5LnEXWdPQn+fishing vessel captain+hnGkUTx4w0YwVMtP4iSMepz7vl4j2n7NEe7c0 [file] V3ANtMPiL7q97nb+94Q/mFTko/JORGE LUIS/IMd7qoJjSxHu viiYAXCYnku9iXYcU1Ntg55hBH3RAgLnt1HFbDh36oSIAGVOGlrZrn03UnPeHv3AiTOavdb3Z9jvx98T 2XnvMALmc0nmTzgcqRl0hsJZIx9SOTp15Jdsr8qk8lLF+mAuFe/TsbSXxpvmU4gUtS5TW61e35iAnQ0O AeX2obtn6wsJb4z3oZ0pZ5nROemTe768yR2mZByU3P ArNeWzb8VgA0B14WYMAU3Q+iJJmW1zpw4jVTG9IdjJGK4MNfh5+sDN+ajLEWBs53xE6C1ZTO7ioQ/SDb yoXfED+MpYXmJ9tyEvZwEAmY16/BeXn4b/KeA04BzyG2w8V8n6I5Ouz1kw/y5ka70PwY2hOn9ZQUwM/n AOGslgCamKuJ4csiZI8i/mAsuvXUBCjh75SIymJS1/ EPkw0WaSH4z1iD+slPQVXwEXGDvF2ZY9n8tIvm1JfFAHsPEMihBkIt6GEBZcs54x2Yp8N+cBBas1oiPX +/xCxDsMB4rOcd9PdjgpCpOwehjveKRNE+F/Oxg0u16fUu1np46iXdXcRa/wUtcYZjF2NpWCRTLql4jV t0ndrB5jatpmm9jBu8CrGdo4UOaLj82iyc1g4yV1lS LV5wpQXw6i8oxUv/HU2ss0b/4MHTVW6d6nnx7Tcc7nfwzxdjIlu/lUSZlmDe6EakEZImgSKtrTh7wdHF EUFzMddL1MdZC/DDfi+qbVKkCM//0hEvhC9ozzGW+Ihjqv3HLGF7NphJ3nboPZSN+oQpVQd7yEjRH/GUILLERMINA [file] 7CkkG8HebEXQWmpCtrcSkEkucPDGL9+f36gsRmw8H8YXS/S+8tyU6m0qmcAxg8KkW/wedding coordinator/9ZThONFq93O [file] pPsqz3Rvc3VEyRI/0nm8Z28o+6OLHTiBCYQ5zhn9N/mAusqFKgAwYdhuNWDS5QqmCp+/José Manuel+ISet/RkA [file] 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+X1CDKmOPSDSLE/YDvLbHOBjMQvgmWSEUw/x2sTsSErYhp4nbGifUxvIKPmXVR1pCUMnjQqWHAxWkZ [file] dough puncher+d4M0Z7OPjGVkP1h/+fKqTc/Rmr/9KEcVCwYtfm7t3z3bhbsHyO9WoFQKKhyI98PFL1g1YaziKxuje [file] 1HiGW5GT3yiwiXEAjDLhDzThXWa+dough puncher/XL2/5hpxniPvRTWX5/cOnGwh0Q07mai8Pry33X1v/etC92KEx [file] 5mWCflE5VLOySEaFICcSc9SScFIlj+IQdanMKRh3UcdX5D2I/Dulce Maria/SUPAsshi6DsS3m2GBCoynuYdmOT [file] vp securities/bfl52OMTO4Ni5bCr+KUdxSVUYM/9/yrNQixt1fv8pjQ26aGuwwx/2RyzdnModew3o8qzCvVEOxeut [file] 92NNM/tro1gg/PH6234AS4nh27yDTqZl2Vvan50BzqrG34B5P1jheV8LXL3JSgd+dough puncher/MmTy8RP2IXPrJ [file] /czVyiFE45EK5FdoSWA7z6lol8J/1+K+HlTzTf5 [file] Nt/I/HFSTTMyjRWVhLRm7WAVr56z7NkOFrAwbh [file] 0EZuul24iSz3HGs9MTIRZEHAALY5oHNtO5iLPMTaBFjdWJaxStQSf9Nt5bUQdWXOkc1ro3thfTiWk/line 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 5Rp7t2JRExmpKoVuKhyHwDzPwPBmXV925rVDsPIJRP tKdaJ2y0hqYhQcx/oegRYhU5x9jDAVHRJvxSMr+i2BXD/fk+HHtP83ICLI17Adqew9FveoY4hF0+n21N OWe45P0RT6BWLHPqmQ7ijUE0XsTJz1w+vch7NCXLTtWpZRlVbVDDs6bg09eMprOY5+PMH+cIJ1FgYErS aQEx57Wr/se0mKqm+D0ElY9k7Vr7pWRnTbLz/lEFFG /HGQJD6Svuc8s5x7n3NRnt5ZmGriefDJfOyUB5VK1yY6qzJFSIe7b+EN1KC4gN9lpRGz7BmPtshYp+cQ ey6uo8FoS8/5kcbDas+CMqGmRT7zBzZE16NcJ9b52HNX9OpYxcYfM6RD+ZmqIK4dcwbDI2n5WZ6vfvSe lT/bRx4gy9/O4jxaV4+j+AQrw/xD0A+lDE6ri7YG7t zxSy5KZHbo8QadkpkzDzsLFFIl68S3Fg8WPvAfdGzzbp26rbb/RDls661WJAwTfnmO8uZmL7VI0VFDoP ckBQTu4JeIG+rfkdJlWEacsQR/PD14eeWw6SMFpLVy4PQmdYhalkfNk41J3yevkAwrdhG7r168hNN3uP wynu35hieegNgKtJZ2mat/YK1o79DVlxfY5bmTDxUp SCtWPzwtmtjr0NIvfu/v9aGfuheyVAiP+DaD0UvJySHgzOqhN/aMVatp/ifU36Epo3ufPb3zUln9sx5S p4e6KXzW+tF5+FybI+uPzXIB1IfIBvVN+9+L51brM+MFC3e2WarISgalgqeXLIoLbCDZo41EOKIgyo44 l2obzzri27BVEJPax5dozVtdcmNqc5jpwlaisqwqDb [file] G5MvVUR+wGgKPC8gKGQPqkIIJivhyFQKuE7aM7avMnpP6/nuclear waste management engineer/sRFBqG3u5sOSn5N2uzxraAqr850FEc [file] z1VehlhHvMQR6tpsw3hBjzDiMYRLOMLtMOzxYW/3kzsNwm+495bRHmp4g9NS82B+Matt/EMDdJ1lQJWXh5 EGUiXgEDQJp/51NCVQxVqfbMOw049k3d7vANjqistl X5pLJ3Y0oIllkQrMOGXhsnJdCtOdDydYqlJvAza9HzpjxZYKTVhiF9hNhmzXP0OVUabeZeP3R9M+C7nk zTPyXdyJDFlN02b52Q3RnlEvkqiMYUye2jWbs29i9SoY33LgeluJsrWl0e33WmTDjSt/QH1dzr5EaTz1 6crEfwNlborh1ub6MlJf5fAP5QqljIAqWQlarO7xha TXnqSqeEiLKxsTPqu8Qe7Wi71I0SLbm2RyMvR3IF1N5AJApTZQTjbDXe6YQb6QfNCMvTmGt5TNz/AMK7 HwyNHNHhOy+KUS1IE8FfcMcoillK6X1DjzdvGdRCYI2ulsNs+Fs7HghYYgYVw3KvXXoPUwGbz6PxCihR eTVu3k764OrUXMtnkyWF/UD1p7HnDO80sRVgP30wK2 xyDZH6gB9YH3EyBnMwPekM/[place]/klfevynPHbVxdRxsauqG0J0bTuMG7mniArOR0BPtccFM4KN/Nr0XD Fe0oFkTGx4Dh0vHsZp8cIADpMh5zbqPwUVMBD5+sUlZPsBFDOAd62dGrL5n8u676Ok2WYsSfq2boYuXC SAOzE3rp2unUEOO4lwYJQ/VARBSe3jOro/QBFhDkYN 4WDIg7cVv3wmf6Aer4xYH3wv/6bYs5ugD5HY8kY8Dzc71wj7CZ7Ghn9LUK2NdD847nHxV/5iHDNJtn89 m1kMOBIRHa9k02BEisefwy1XdpLNP2goISO7TY+GKKqXUby8rkK8aRqy6E55iiAWDKiJ+kImUf3+zjLC u7PCNzYLYAAEYmrhRvrowuj7LIQHE8wKMZAUamlpmu [file] C9OL79ypjChv6mv80Jgyd01tHU4m8saGy/care home+czHI+MJSgUGf8RgUszEkcSU5T8H+36Q9L3djSsX+4V [file] 2rkyQaK2D7zSTit/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 The performance characteristics of this product have not been established. Results should not be used as a diagnostic procedure without confirmation of the diagnosis by another medically established diagnostic product or procedure. Performed at: - Lab[address] [id number] Acute Dialysis Registered Nurse: Gay Leyva MD, Phone: [phone] ID Date Data Source [id number] 10/26/2019 02:37:00 PM EDT [facility] ([facility]) Name Value Range Interpretation Code Description Data Moni rce(s) Supporting Document(s) 32 ng/mL (31-100) 25 HYDROXY VIT D @ [facility] ([facility]) A REVIEW OF THE LITERATURE SUGGESTS THEF OLLOWING RANGES FOR THE CLASSIFICATIONOF 25-OH VITAMIN D STATUS: VITAMIN D STATUS 25-OH VITAMIN D DEFICIENCY <20 NG/MLINSUFFICIENCY 20-30 NG/MLSUFFICIENCY 31 - 100 NG/MLTOXICITY > 100 NG/ML A PEDIATRIC REFERENCE RANGE HAS NOT BEENESTABLISHED USING THIS METHOD.Unless otherwise specified, testing performed by Laboratory [facility] [address] [place] [id number]

ID Date Data Source [id number] 10/26/2019 02:37:00 PM EDT [facility] ([facility]) Name Value Range Interpretation Code Description Data Moni rce(s) Supporting Document(s) 42 U/L (25-115) [facility]YLASE [facility]) Unless otherwise specified, testing perf ormed by Laboratory [facility] [address] [place] [address] 230[address]

ID Date Data Source [id number] 10/26/2019 02:37:00 PM EDT [facility] ([facility]) Name Value Range Interpretation Code Description Data Moni rce(s) Supporting Document(s) 4.4 g/dL (3.5-4.6) ALBUMIN [facility] ([facility]) Unless otherwise specified, testing perf ormed by Laboratory [facility] [address] [place] [address]97[address]

ID Date Data Source [id number] 10/26/2019 02:37:00 PM EDT [facility] ([facility]) Name Value Range Interpretation Code Description Data Moni rce(s) Supporting Document(s) 49 U/L (12-78) ALT (SGPT) [facility] ([facility]) Unless otherwise specified, testing perf ormed by Laboratory [facility] [address] [place] [address] 25874

ID Date Data Source [id number] 10/26/2019 02:37:00 PM EDT [facility] ([facility]) Name Value Range Interpretation Code Description Data Moni rce(s) Supporting Document(s) 25 U/L (11-39) AST (SGOT) [facility] ([facility]) Unless otherwise specified, testing perf ormed by Laboratory [facility] [place] [address]

ID Date Data Source [id number] 10/26/2019 02:37:00 PM EDT [facility]) Name Value Range Interpretation Code Description Data Moni rce(s) Supporting Document(s) 0.94 mg/dL (0.60-1.00) CREATININE [facility] ([facility]) GFR INTERPRETATION [facility] ([facility]) --NORMAL KIDNEY FUNCTION OR MILD DISEASE - GFR >OR= 60CHRONIC KIDNEY DISEASE - GFR 15 - 59RENAL FAILURE - GFR <15 Est. GFR calculation based on the MDRDstudy equation, which assumes a steadystate for creatinine. Est. GFR should notbe used for medication dosing.Unless otherwise specified, testing performed by [facility] [place] [address] [place] [address]

>60 (>59) GFR [facility] ([facility]) >60 (>59) GFR ( AMER) [facility] ([facility]) ID Date Data Source [id number] 10/26/2019 02:37:00 PM EDT [facility] ([facility]) Name Value Range Interpretation Code Description Data Moni rce(s) Supporting Document(s) <0.3 (0.0-0.5) C REACTIVE PROTEIN @ [facility] ( [facility]) Unless otherwise specified, testing perf ormed by Laboratory [facility] [address] [place] [address]

ID Date Data Source [id number] 10/26/2019 02:37:00 PM EDT [facility] ([facility]) Name Value Range Interpretation Code Description Data Moni rce(s) Supporting Document(s) 2 mm/h (0-30) ESR [facility] ([facility] Unless otherwise specified, testing perf ormed by Laboratory [facility] [address] [place] [address] 32685

ID Date Data Source [id number] 10/26/2019 02:37:00 PM EDT [facility] ([facility]) Name Value Range Interpretation Code Description Data Moni rce(s) Supporting Document(s) 127 U/L (65-230) LIPASE [facility] Unless otherwise specified, testing perf ormed by Laboratory [facility] [address] [place] [address] 29887

ID Date Data Source [id number] 10/26/2019 02:37:00 PM EDT [facility] ([facility]) Name Value Range Interpretation Code Description Data Moni rce(s) Supporting Document(s) 6.4 10*3/uL (4.1-11.0) WBC [facility] ([facility]) 4.49 10*6/uL (4.00-5.40) RBC [facility]) 42.4 % (36.0-47.0) HCT [facility] ([facility]) 14.3 g/dL (12.0-16.0) HGB [facility] ([facility]) 94.6 fL (80.0-95.0) MCV [facility] ([facility]) 31.9 pg (27.0-32.0) MCH [facility] ([facility]) 13.5 % (10.5-14.5) RDW [facility] ([facility]) 33.7 g/dL (32.0-36.0) MCHC [facility] ([facility]) 237 10*3/uL (150-450) PLT [facility] ([facility]) 27.5 % (16.0-52.0) LYMPH % [facility] ([facility]) 8.6 fL (7.1-10.7) MPV [facility] ([facility]) 59.5 % (35.0-75.0) NEUT % [facility] ([facility]) 2.3 % (0.0-5.0) EOS % [facility] 9.6 % (0.0-8.0) Above high normal MONO % [facility] ([facility]) 3.8 10*3/uL (1.8-7.7) NEUT # [facility] ([facility]) 1.1 % (0.0-4.0) BASO % [facility] 1.8 10*3/uL (1.2-4.8) LYMPH # [facility] ([facility]) 0.6 10*3/uL (0.0-0.8) MONO # [facility] ([facility]) 0.1 10*3/uL (0.0-0.5) EOS # [facility] ([facility]) 0.1 10*3/uL (0.0-0.2) BASO # [facility] ([facility]) Unless otherwise specified, testing perf ormed by [facility] [address] [place] [address]

ID Date Data Source [id number]/26/2019 07:19:26 PM EDT [facility] Name Value Range Interpretation Code Description Data Moni rce(s) Supporting Document(s) WBC 6.4 10*3/uL (4.1-11.0) Laboratory [facility] RBC 4.49 10*6/uL (4.00-5.40) Laboratory [facility] CORE HGB 14.3 g/dL (12.0-16.0) [facility] [facility] HCT 42.4 % (36.0-47.0) [facility] MCV 94.6 fL (80.0-95.0) [facility] MCH 31.9 pg (27.0-32.0) [facility] MCHC 33.7 g/dL (32.0-36.0) [facility] RDW 13.5 % (10.5-14.5) [facility] PLT 237 10*3/uL (150-450) [facility] MPV 8.6 fL (7.1-10.7) [facility] NEUT % 59.5 % (35.0-75.0) [facility] LYMPH % 27.5 % (16.0-52.0) [facility] [facility] MONO % 9.6 % (0.0-8.0) H [facility] EOS % 2.3 % (0.0-5.0) [facility] BASO % 1.1 % (0.0-4.0) [facility] NEUT # 3.8 10*3/uL (1.8-7.7) [facility] LYMPH # 1.8 10*3/uL (1.2-4.8) [facility] MONO # 0.6 10*3/uL (0.0-0.8) [facility] Eosinophils [#/volume] in Blood by Automated count 0.1 10*3/uL (0.0-0 .5) [facility] BASO # 0.1 10*3/uL (0.0-0.2) [facility] ID Date Data Source [id number] 10/26/2019 07:40:04 PM EDT [facility] Name Value Range Interpretation Code Description Data Moni rce(s) Supporting Document(s) ESR 2 mm/h (0-30) [facility] ID Date Data Source [id number]/26/2019 07:59:31 PM EDT [facility] [employer] Name Value Range Interpretation Code Description Data Omni rce(s) Supporting Document(s) 25 HYDROXY VIT D @ 32 ng/mL (31-100) Laboratory [facility] A REVIEW OF THE LITERATURE SUGGESTS THEF OLLOWING RANGES FOR THE CLASSIFICATIONOF 25-OH VITAMIN D STATUS: VITAMIN D STATUS 25-OH VITAMIN D DEFICIENCY <20 NG/MLINSUFFICIENCY 20-30 NG/MLSUFFICIENCY 31 - 100 NG/MLTOXICITY > 100 NG/ML A PEDIATRIC REFERENCE RANGE HAS NOT BEENESTABLISHED USING THIS METHOD. ID Date Data Source [id number]/26/2019 08:18:02 PM EDT [facility] [employer] Name Value Range Interpretation Code Description Data Moni rce(s) Supporting Document(s) ALBUMIN 4.4 g/dL (3.5-4.6) Laboratory [facility] ID Date Data Source [id number]/26/2019 08:18:02 PM EDT Laboratory [facility] [employer] Name Value Range Interpretation Code Description Data Moni rce(s) Supporting Document(s) ALT (SGPT) 49 U/L (12-78) Laboratory [facility] ID Date Data Source 2015010210/26/2019 08:18:02 PM EDT [facility] [employer] Name Value Range Interpretation Code Description Data Moni rce(s) Supporting Document(s) AMYLASE 42 U/L (25-115) Laboratory [facility] ID Date Data Source 2015010210/26/2019 08:18:02 PM EDT Laboratory [facility] [place] Name Value Range Interpretation Code Description Data Moni rce(s) Supporting Document(s) AST (SGOT) 25 U/L (11-39) Laboratory [facility] ID Date Data Source 2015010210/26/2019 08:18:02 PM EDT Laboratory [facility] [employer] Name Value Range Interpretation Code Description Data Moni rce(s) Supporting Document(s) CREATININE 0.94 mg/dL (0.60-1.00) Laboratory [facility] GFR >60 ml/min/1.73m2 (>59) Laboratory [facility] GFR ( AMER) >60 ml/min/1.73m2 (>59) Laboratory [facility] GFR INTERPRETATION Laboratory [facility] --NORMAL KIDNEY FUNCTION OR MILD DISEASE - GFR >OR= 60CHRONIC KIDNEY DISEASE - GFR 15 - 59RENAL FAILURE - GFR <15 Est. GFR calculation based on the MDRDstudy equation, which assumes a steadystate for creatinine. Est. GFR should notbe used for medication dosing. ID Date Data Source 2015010210/26/2019 08:18:02 PM EDT Laboratory [facility] Name Value Range Interpretation Code Description Data Moni rce(s) Supporting Document(s) LIPASE 127 U/L (65-230) [facility] ID Date Data Source 2015010210/26/2019 08:18:02 PM EDT Laboratory [facility] Name Value Range Interpretation Code Description Data Moni rce(s) Supporting Document(s) C REACTIVE PROTEIN @ <0.3 mg/dL (0.0-0.5) [facility] Source [id number] 10/26/2019 09:15:00 AM EDT [facility] Name Value Range Interpretation Code Description Data Moni rce(s) Supporting Document(s) EGD [facility] GESGFj4vHiZKWaEgPIPjKveTDDpqLZfuJBCwE6T1INljUg8OYIogntEwFASoDe8+NWKbFJ6mww9eQOOk gMy 4wDGCvJsdkN8OeMVWeb86WMSYzJXxXXwNtHeGcKIL2DFVnJcOyUSO9YlSaPoaxGU7jSYP1GKOrAHomMP HaBONoZmIqFHFpWB4qWWkrJRaeAs9OGM1nz8NdYFKpRWQhLmhWILkhPNyvYUCtCZVaLTKjU325skQvKq 9SxGOeOZm1YOSdZgE8SEOoIoM4IBInKc6hIpQlu0Xs G8OqMPc0J2yCJhwoR6DgHTofDE3fJHV1BGFpLe8ZkVktNPsoACLIZ9lwOsChNMZfPNMMRc5+Pj4+DWVu VJ3amp66DOYcg6McNKx4M8H4dVLzF9SdA7SeOMBthLBUj5puTgOmITK0YNDpFtiuIZ6OWLQoiZWmZWQh YGyfPR6thiPjkEJ9AW2KjCohMGZlZVUAXi4+Pi9QYX GyfeBxZeYyATZhR53hrYMweKNuYwcjTKEHEB4+BEZwSI8zha76NHHvv0PyLCz2R9sfhou7gTUfKTNjWG NsQgMyMGItIY8mVG9OtNC2dVUmOX2PbBRqLY2KzAVwNI2RA4IiDWO3J3PnqFMojwUcH4NsHTWeVOUlz8 AcDK9EZ0WHAVRvANNuS4NaiS6wN4KlH6WxJ6Xownkd OUMISl9PlPL9wXMhEEBcF6ilwDiycPXuPMzvL6BgfEWLADQKj27dj48kdvFeVX8+l0SxXMNiMBq10jn0 ZVAcX/lcVPVYEwr8IEbdZVHiDoAOwd7gK1smDuF1JKa0KvhyaCY4I9rKqTLX0//tjsx6fvw5mk/eD+/z 3YDVyb6+k6qo6jVa9iGr4PTNMPsvXJURdUQOGRKR52 gefWe5XMaodFutvSfP+NSwNNSPeBGax2qF6G6Vx2YOgqPiJvP00+Lu2lmk8kpj0cHs8+Lm/WmuAP1ek2 ZHQyfGwCDmfEv+lvP/PO04HZwvjDtegqHGWgSKCnQYQ+OxB1ZMRJJxSdoUNT2tAXbYIwBqe8Wfs3M8VU CPDXiFAAS+QgQiISEi/u31+ymSLELRes2R2HDNK0wF [file] PAO1w5mk+eXO2KxfRyOPWtTRrXhyNKCnvRhZm85QTtIRH6Q6l/wedding coordinator/LOAJnL99ivmEi7memi0cl/Wg2ID /CabK/TybQbGfvug1n6qgn0F/+SyXxxOwKDbPmXle9kCAEb0zlhxYWdBMlqJOyi/klz48qm6V+VH2iBM jOtvTJhasGGbZ7L+uEnMA/dNXQCKFuL65Ps62xi9YK 0PGuGTAFh6hqx+jyHkBQE5xDwzf1Jq43l11GOqNPAgnxuVplNXKzx6Sj1BbPX+9DsAvIBvI5tvWsG/H6 bxr6n8yd6b/q9o8ekfLoGchexetHiUmSjl7Xm5FI/Q+oLL9wAkAszEQs8/zO8wzljQmMnMWW+2z5BlRa pCeSfrSMqZprJpMB7y1z9VIfrgIY++phcybrILdYpz DA/+ue4YHuzJrsW9hi3KWV+EqV8AxL42H8vVAltKHfwKCRnzzAhpYXntE8qa5LO+8vOQaPf1p5Zbtpi [file] HgD6o54FUbGUQoukgtT8j3seMdczbciEuEKF8xK/ezLpi0NWXde2mQgAVrpwy0ZrnRq9PljFMqWU1/line 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 [file] 2Goc7xIS8YWfRuOTYKaTpwctqCOMDtF0DYncrcR6kUc2mnshLKTUz7vS/EpqAfcYQ1N8l+245d3fR+line 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 m3h1QnIQIaGlUEeomFteSND3PPIAcxfaYFsZNck9uz jlaSdaHOW5HViltZCTSZc5Gt1meOqu7lIHfRuRX13rD6h53yE2rkhav4V8bS+sVhkstzx4y67shxmK5Y 0kxWFG5A0O4X9jI2JEsrNVfGhuZFE7aRuzUHQ5RvMv3nSozVQ/VjxvX59Igo1dN0c1d4b553e6I5jBuG r9GR94TKD80N9LbzVZQXWLKhY6NfYpgtsPjDaVmvab T3A86Hu97flBKbmZBeAOt+KegOWLKTqfyLsaYxZ6zEuYd5weSKF3bre9rcftHNnTIj+UKWZxP4x/MpSE C0XXH/gqkZ1bWcAHWBNPPj3v1s4bZ7+Cp8Ur6CJzkd4Vyk9OPEEJwvnbe8SbRViLsotRXhIvAy+88X5V 43v2tbsIVWtMzIA20dMxfC0DxiaBU30/qimBzu4Ajs mlWhDMUXb2UXcc75x82NQ1POmpzAXj264dhiWFbQH7Q+g1Xy4F8NcQP4B/lmLPdjo7WmlJYk9CBzCwji tc/9pFXLnLTcqVoffuTVrNlNQiOvnBomseAjc8fjvygrzC9zHpdR/cE/guillermina++RVU3S8TugujRUva8h9g2 [file] v+3/unC2Xnz4/ULnHtE3cvVqhkyqKWJkn5Gk3nyspR+LSYWydOLm2tk30IbrV48VIftKft/v4+O0+senior information security consultant [file] n0oYG8TOjj0i/uyqhrEkUYVcEKRzR0qDK6SWsVoeImmUopDyvhoca8EjNmr/Medical Insurance Claims Specialist//LiSivGlX7XwNpFxh [file] F6otc0BlyM78EO5A7eceYU7gryedwkLAfGkzj4ULK7ipRwcQUpdkmLYaLOZCpHW8iF+wedding coordinator+oIrhYJHcnQ [file] PjSJs4QwW6YITVYxJlVU8J ID Date Data Source [id number] 10/23/2019 10:05:00 AM EDT [facility] Name Value Range Interpretation Code Description Data Moni rce(s) Supporting Document(s) SARS-COV-2 RNA RESP QL QAMAR+PROBE [facility] This lab was ordered by [facility] and reported by [email or web address]. ID Date Data Source [id number] 10/25/2019 02:38:00 AM EDT [facility] FASTING: UNKNOWNReceived: 10/24/2019 at 19:26:00 QPT: [facility] [place], [address], [address] [place] [address], [phone], Juan Arevalo MD Name Value Range Interpretation Code Description Data Moni rce(s) Supporting Document(s) SARS CoV 2 RNA NOT DETECTED Normal (applies to non-numeric results) [facility] A Not Detected (negative) test result fo r this testmeans that SARS- CoV-2 RNA was not present in the specimenabove the limit of detection. A negative result does notrule out the possibility of COVID-19 and should not beused as the sole basis for treatment or patient managementdecisions. If COVID-19 is still suspected, based onexposure history together with other clinical findings,re- testing should be considered in consultation with[facility] health authorities. Laboratory test results shouldalways be considered in the context of clinicalobservations and epidemiological data in making a finaldiagnosis and patient management decisions.Please review the "Fact Sheets" and FDA authorizedlabeling available for health care providers andpatients using the following websites:https://www.[employer].com/home/Covid-19/HCP/NAAT/fact-jiglr1xyhfl://www.[employer]iance Science/home /Covid-19/Patients/NAAT/fact-pvhma9Pzmj test has been authorized by the FDA under anEmergency Use Authorization (EUA) for use by authorizedlaboratories.Due to the current public health emergency, [facility] is receiving a high volume of samples froma wide variety of swabs and media for COVID-19 testing.In order to serve patients during this public healthcrisis, samples from appropriate clinical sources arebeing tested. Negative test results derived fromspecimens received in non-commercially manufacturedviral collection and transport media, or in media andsample collection kits not yet authorized by FDA forCOVID-19 testing should be cautiously evaluated and thepatient potentially subjected to extra precautions suchas additional clinical monitoring, including collectionof an additional specimen.Methodology: Nucleic Acid Amplification Test (NAAT)includes PCR or TMAAdditional information about COVID-19 can be foun jenifer the [employer] website:www.[employer].Compliance Science/Covid19. Your request to have a duplicate copy faxed has been acknowledged. Queued to: [id number] ID Date Data Source [id number] 10/21/2019 07:14:02 PM EDT [facility] NT INFORMATIONPatient MRN Name Date of Age Gend*PT [id number] Elena Marroquin 1965 54 years F ---PT Location Admission Date/Time Visit ID Attending Provider --- --- --- --- EPI ID CSN Admitting Provider [id number] ---Name: Elena MarroquinDOB: 1965Date: 10/21/19CIED Remote CheckImplanted Device 07/11/2019Device Seat Scooper Machine MedtronicDevice type Single Chamber ICDMRI Conditional Device -Device was remotely interrogated and the following were evaluated:Battery statusSummary arrhythmia logsNew observationsFidelity of the EGM signalIntegrity of leads and lead impendence were reevaluatedConclusion:Normal ICD function.No significant changes continue to monitor.Signature: Law Vasquez MD, [facility], RSCardiac Electrophysiology and Arrhythmia ServiceDate: October 21, 2019Time: 7:13 PMThis document or parts of this document, were dictated using Clozeware. A reasonable attempt at proofreading has been made to minimize errors.Please call with any questions or corrections. Name Value Range Interpretation Code Description Data Moni rce(s) Supporting Document(s) ID Date Data Source [id number] 10/21/2019 07:14:02 PM EDT [facility]PAT[facility] NT INFORMATIONPatient MRN Name Date of Age Gend*PT [id number] Elena Marroquin 1965 54 years F ---PT Location Admission Date/Time Visit ID Attending Provider --- --- --- --- EPI ID CSN Admitting Provider [id number] ---Heart Failure Management ReportPatient has a history of ventricular tachycardia. According to this report,patient has not had VT/VF. There is not evidence of AT/AF. In regards toOptivol, patient has not crossed fluid threshold. Average ventricular responseat night is 65.Marge Mitchell NPThijerzy document or parts of this document, were dictated using Cloz[employer]are. A reasonable attempt at proofreading has been made to minimize errors.Please call with any questions or corrections. Name Value Range Interpretation Code Description Data Moni rce(s) Supporting Document(s) ID Date Data Source [id number] 08/19/2019 01:06:00 PM EDT [facility] Name Value Range Interpretation Code Description Data Moni rce(s) Supporting Document(s) Coronavirus 2019 Nasopharygeal Laboratory test result [facility] ([facility]) Testing was performed using the eliza(R) SARS-CoV-2 test. This test was developed and its performance characteristics determined by [employer]. This test has not been FDA cleared or approved. This test has been authorized by FDA under an Emergency Use Authorization (EUA). This test is only authorized for the duration of time the declaration that circumstances exist justifying the authorization of the emergency use of in vitro diagnostic tests for detection of SARS-CoV-2 virus and/or diagnosis of COVID-19 infection under section 564(b)(1) of the Act, 21 U.S.C. 360bbb-3(b)(1), unless the authorization is terminated or revoked sooner. Performed at: [facility] [id number] Acute Dialysis Registered Nurse: Susie Cantor MD, Phone: [phone] Not Detected ID Date Data Source [id number] 08/19/2019 01:06:00 PM EDT [facility] ([facility]) Name Value Range Interpretation Code Description Data Moni rce(s) Supporting Document(s) Respiratory Panel Laboratory test result [facility] ([facility]) This respiratory PCR panel detects Influ nalini A H1, H3 and 2009 H1 viruses, Influenza B virus, Resp iratory syncytial virus, Human metapneumovirus, Parainfluenza virus 1, 2, 3 and 4, Adenovirus, Rhinovirus/Enterovirus, Coronavirus HKU1, NL63, OC43 and 229E, Bordetella pertussis, Mycoplasma pneumoniae and Chlamydia pneumoniae. NEGATIVE by MULTIPLEXED NUCLEIC ACID PCR ID Date Data Source [id number] 08/19/2019 01:06:00 PM EDT [facility] Name Value Range Interpretation Code Description Data Moni rce(s) Supporting Document(s) SARS CORONAVIRUS 2 RNA [facility] This lab was ordered by [facility] and reported by [facility]. ID Date Data Source [id number] 07/26/2019 01:05:00 PM EST [facility] ([facility]) Name Value Range Interpretation Code Description Data Moni rce(s) Supporting Document(s) THC negative Thc [facility] ([facility]) Amphetamines: negative Amphetamines: [facility] ([facility]) Opiates: negative Opiates: [facility] ([facility]) Cocaine: negative Cocaine: [facility] ([facility]) Barbiturates: negative Barbiturates: [facility] ([facility]) Benzodiazepines: negative Benzodiazepines: AT ROGELIO ([facility]) Methamphetamine negative Methamphetamine ATHE NA ([facility]) PCP negative Pcp [facility] ([facility]) MTD negative Mtd [facility] ([facility]) OXY negative Oxy [facility] ([facility]) ID Date Data Source [id number] 07/26/2019 01:05:00 PM EST [facility] ([facility]) Name Value Range Interpretation Code Description Data Moni rce(s) Supporting Document(s) Amphetamines: negative Amphetamines: [facility] ([facility]) Cocaine: negative Cocaine: [facility] ([facility] THC negative Thc [facility] ([facility] Barbiturates: negative Barbiturates: [facility] ([facility]) Opiates: negative Opiates: [facility] ([facility] PCP negative Pcp [facility] ([facility] Methamphetamine negative Methamphetamine ATHE NA ([facility]) Benzodiazepines: negative Benzodiazepines: AT ROGELIO ([facility]) MTD negative Mtd [facility] ([facility] OXY negative Oxy [facility] ([facility]) ID Date Data Source [id number] 07/26/2019 01:05:00 PM EST [facility] ([facility]) Name Value Range Interpretation Code Description Data Moni rce(s) Supporting Document(s) THC negative Thc [facility] ([facility]) Amphetamines: negative Amphetamines: [facility] ([facility]) Opiates: negative Opiates: [facility] ([facility] Cocaine: negative Cocaine: [facility] ([facility] Benzodiazepines: negative Benzodiazepines: AT ROGELIO ([facility]) Barbiturates: negative Barbiturates: [facility] ([facility]) Methamphetamine negative Methamphetamine ATHE NA ([facility]) OXY negative Oxy [facility] ([facility] PCP negative Pcp [facility] ([facility]) MTD negative Mtd [facility] ([facility]) ID Date Data Source [id number] 07/26/2019 01:05:00 PM EST [facility] ([facility]) Name Value Range Interpretation Code Description Data Moni rce(s) Supporting Document(s) THC negative Thc [facility] ([facility]) Amphetamines: negative Amphetamines: [facility] ([facility]) Cocaine: negative Cocaine: [facility] ([facility]) Barbiturates: negative Barbiturates: [facility] ([facility]) Opiates: negative Opiates: [facility] ([facility] Benzodiazepines: negative Benzodiazepines: AT ROGELIO ([facility]) OXY negative Oxy [facility] ([facility] Methamphetamine negative Methamphetamine ATHE NA ([facility]) MTD negative Mtd [facility] ([facility]) PCP negative Pcp [facility] ([facility]) ID Date Data Source [id number] 07/26/2019 01:05:00 PM EST [facility] ([facility]) Name Value Range Interpretation Code Description Data Moni rce(s) Supporting Document(s) Amphetamines: negative Amphetamines: [facility] ([facility]) THC negative Thc [facility] ([facility] Cocaine: negative Cocaine: [facility] ([facility]) Opiates: negative Opiates: [facility] ([facility] Methamphetamine negative Methamphetamine ATHE NA ([facility]) Barbiturates: negative Barbiturates: [facility] ([facility]) PCP negative Pcp [facility] ([facility] Benzodiazepines: negative Benzodiazepines: AT ROGELIO ([facility]) MTD negative Mtd [facility] ([facility]) OXY negative Oxy [facility] ([facility]) ID Date Data Source [id number] 07/26/2019 01:05:00 PM EST [facility] ([facility]) Name Value Range Interpretation Code Description Data Moni rce(s) Supporting Document(s) THC negative Thc [facility] ([facility]) Amphetamines: negative Amphetamines: [facility] ([facility]) Opiates: negative Opiates: [facility] ([facility] Cocaine: negative Cocaine: [facility] ([facility]) Benzodiazepines: negative Benzodiazepines: AT ROGELIO ([facility]) Barbiturates: negative Barbiturates: [facility] ([facility]) PCP negative Pcp [facility] ([facility] Methamphetamine negative Methamphetamine ATHE NA ([facility]) MTD negative Mtd [facility] ([facility]) OXY negative Oxy [facility] ([facility]) ID Date Data Source [id number] 07/26/2019 01:05:00 PM EST [facility] ([facility]) Name Value Range Interpretation Code Description Data Moni rce(s) Supporting Document(s) Cocaine: negative Cocaine: [facility] ([facility]) Amphetamines: negative Amphetamines: [facility] ([facility]) THC negative Thc [facility] ([facility]) Benzodiazepines: negative Benzodiazepines: AT ROGELIO ([facility]) Opiates: negative Opiates: [facility] ([facility]) Barbiturates: negative Barbiturates: [facility] ([facility]) PCP negative Pcp [facility] ([facility] Methamphetamine negative Methamphetamine ATHE NA ([facility]) OXY negative Oxy [facility] ([facility] MTD negative Mtd [facility] ([facility]) ID Date Data Source [id number] 07/26/2019 12:00:00 AM EST [facility] ([facility]) Name Value Range Interpretation Code Description Data Omni rce(s) Supporting Document(s) ID Date Data Source [id number] 07/26/2019 12:00:00 AM EST [facility] ([facility]) Name Value Range Interpretation Code Description Data Moni rce(s) Supporting Document(s) ID Date Data Source [id number] 07/26/2019 12:00:00 AM EST [facility] ([facility]) Name Value Range Interpretation Code Description Data Moni rce(s) Supporting Document(s) venlafaxine ur CMP 96170 NG/mL >=5 normal Venlafaxine Ur C MP [facility] ([facility]) amitrip ur CMP 178 NG/mL >=10 normal Amitrip Ur CMP [facility] ([facility]) cyclobenzaprine ur CMP <10 >=10 Abnormal (applies to non-numeric results) Cyclobenzaprine Ur CMP [facility] ([facility]) clonazepam ur CMP 917 NG/mL >=50 normal Clonazepam Ur CMP [facility] ([facility]) baclofen ur CMP <500 >=500 Abnormal (applies to non- numeric results) Baclofen Ur CMP [facility] ([facility]) hydrocodone ur CMP <100 >=100 Abnormal (applies to n on-numeric results) Hydrocodone Ur CMP [facility] ([facility]) ID Date Data Source [id number] 07/26/2019 12:00:00 AM EST [facility] ([facility]) Name Value Range Interpretation Code Description Data Moni rce(s) Supporting Document(s) odv ur cfm-mcnc 54879 NG/mL >=50 Odv Ur Cfm-mcnc ATH KRUPA ([facility]) sn reuptake inhibitors ur ql >=50 >=50 Sn Reup take Inhibitors Ur Ql [facility] ([facility]) venlafaxine ur cfm-mcnc 1800 NG/mL >=5 Venlafaxine Ur Cfm-mcnc [facility] ([facility]) ID Date Data Source [id number] 07/26/2019 12:00:00 AM EST [facility] ([facility]) Name Value Range Interpretation Code Description Data Moni rce(s) Supporting Document(s) Buprenorphine [Presence] in Urine by Confirmatory method <1 >=1 Buprenorphine Ur Ql Cfm [facility] ([facility]) Ethyl sulfate [Mass/volume] in Urine by Confirmatory method <200 >=200 Ethyl Sulfate Ur Cfm-mcnc [facility] ([facility]) Tapentadol [Presence] in Urine by Confirmatory method <100 >=100 Tapentadol Ur Ql Cfm [facility] ([facility]) alcohol metabolites ur ql cfm <200 >=200 Alcoho l Metabolites Ur Ql Cfm [facility] ([facility]) Ethyl glucuronide [Mass/volume] in Urine by Confirmatory method <50 0 >=500 Ethyl Glucuronide Ur [facility] ([facility]) Benzodiazepines [Presence] in Urine by Confirmatory method >=50 >=50 Benzodiaz Ur Ql [facility] ([facility]) Amphetamines [Presence] in Urine by Confirmatory method <0 >=0 Amphetamines Ur Ql [facility] ([facility]) gabapentinpregabalin ur ql [facility] <5 >=5 Gabap entinpregabalin Ur Ql [facility] ([facility]) 7-Aminoclonazepam [Mass/volume] in Urine by Confirmatory method 917 NG/mL >=50 7Aminoclonazepam Ur [facility] ([facility]) Opiates [Presence] in Urine by Confirmatory method <100 >=1 00 Opiates Ur Ql [facility] ([facility]) Methadone [Presence] in Urine by Confirmatory method <200 > =200 Methadone Ur Ql [facility] ([facility]) Cocaine [Presence] in Urine by Confirmatory method <50 >=50 Bze Ur Ql [facility] ([facility]) 6-Monoacetylmorphine (6-SHALONDA) [Presence] in Urine by Confirma tory method <10 >=10 6Mam Ur Ql [facility] ([facility]) Tramadol [Presence] in Urine by Confirmatory method <100 >= 100 Tramadol Ur Ql [facility] ([facility]) Carisoprodol+Meprobamate [Presence] in Urine by Screen method <200 >=200 Carisoprodol+meprob Ur Ql [facility] ([facility]) Meperidine [Presence] in Urine by Confirmatory method <100 >=100 Meperidine Ur Ql [facility] ([facility]) Fentanyl+Norfentanyl [Presence] in Urine by Confirmatory method <5 >=5 Fentanyl+norfentanyl Ur Ql [facility] ([facility]) Cotinine [Presence] in Urine by Confirmatory method <125 >= 125 Cotinine Ur Ql [facility] ([facility]) Creatinine [Mass/volume] in Urine 69.8 mg/dL 20 - 370 normal Cr eat Ur-mcnc [facility] ([facility]) pH of Urine 4.5 - 9.0 normal pH Ur [facility] ([facility] ID Date Data Source [id number] 07/26/2019 12:00:00 AM EST [facility] ([facility]) Name Value Range Interpretation Code Description Data Moni rce(s) Supporting Document(s) Cyclobenzaprine [Presence] in Urine by Confirmatory method <10 >=10 Cyclobenzaprine Ur Ql [facility] ([facility]) ID Date Data Source [id number] 07/26/2019 12:00:00 AM EST [facility] ([facility]) Name Value Range Interpretation Code Description Data Moni rce(s) Supporting Document(s) baclofen ur ql cfm <500 >=500 Baclofen Ur Ql Cf m [facility] ([facility]) ID Date Data Source [id number] 07/26/2019 12:00:00 AM EST [facility] ([facility]) Name Value Range Interpretation Code Description Data Moni rce(s) Supporting Document(s) Amitriptyline [Mass/volume] in Urine by Confirmatory method 153 NG/ mL >=10 Amitrip Ur Cfm-mcnc [facility] ([facility]) Tricyclic antidepressants [Presence] in Urine by Confirmatory me thod >=10 >=10 Tricyclics Ur Ql Cfm [facility] ([facility]) Nortriptyline [Mass/volume] in Urine by Confirmatory method 24 NG/m L >=10 Nortrip Ur Cfm-mcnc [facility] ([facility]) ID Date Data Source [id number] 07/26/2019 12:00:00 AM EST [facility] ([facility]) Name Value Range Interpretation Code Description Data Moni rce(s) Supporting Document(s) ID Date Data Source [id number] 07/26/2019 12:00:00 AM EST [facility] ([facility]) Name Value Range Interpretation Code Description Data Moni rce(s) Supporting Document(s) ID Date Data Source [id number] 07/26/2019 12:00:00 AM EST [facility] ([facility]) Name Value Range Interpretation Code Description Data Moni rce(s) Supporting Document(s) venlafaxine ur CMP 28614 NG/mL >=5 normal Venlafaxine Ur C MP [facility] ([facility]) baclofen ur CMP <500 >=500 Abnormal (applies to non- numeric results) Baclofen Ur CMP [facility] ([facility]) amitrip ur CMP 178 NG/mL >=10 normal Amitrip Ur CMP [facility] ([facility]) cyclobenzaprine ur CMP <10 >=10 Abnormal (applies to non-numeric results) Cyclobenzaprine Ur CMP [facility] ([facility]) clonazepam ur CMP 917 NG/mL >=50 normal Clonazepam Ur CMP [facility] ([facility]) hydrocodone ur CMP <100 >=100 Abnormal (applies to n on-numeric results) Hydrocodone Ur CMP [facility] ([facility]) ID Date Data Source [id number] 07/26/2019 12:00:00 AM EST [facility] ([facility]) Name Value Range Interpretation Code Description Data Moni rce(s) Supporting Document(s) venlafaxine ur cfm-mcnc 1800 NG/mL >=5 Venlafaxine Ur Cfm-mcnc JAIRO ([facility]) sn reuptake inhibitors ur ql >=50 >=50 Sn Reup take Inhibitors Ur Ql JAIRO ([facility]) odv ur cfm-mcnc 17035 NG/mL >=50 Odv Ur Cfm-mcnc ATH KRUPA ([facility]) ID Date Data Source [id number] 07/26/2019 12:00:00 AM EST JAIRO ([facility]) Name Value Range Interpretation Code Description Data Moni rce(s) Supporting Document(s) Buprenorphine [Presence] in Urine by Confirmatory method <1 >=1 Buprenorphine Ur Ql [facility] ([facility]) Ethyl glucuronide [Mass/volume] in Urine by Confirmatory method <50 0 >=500 Ethyl Glucuronide Ur [facility] ([facility]) Ethyl sulfate [Mass/volume] in Urine by Confirmatory method <200 >=200 Ethyl Sulfate Ur [facility] ([facility]) alcohol metabolites ur ql cfm <200 >=200 Alcoho l Metabolites Ur Ql [facility] ([facility]) Tapentadol [Presence] in Urine by Confirmatory method <100 >=100 Tapentadol Ur Ql [facility] ([facility]) Benzodiazepines [Presence] in Urine by Confirmatory method >=50 >=50 Benzodiaz Ur Ql [facility] ([facility]) 7-Aminoclonazepam [Mass/volume] in Urine by Confirmatory method 917 NG/mL >=50 7Aminoclonazepam Ur [facility] ([facility]) Amphetamines [Presence] in Urine by Confirmatory method <0 >=0 Amphetamines Ur Ql [facility] ([facility]) 6-Monoacetylmorphine (6-SHALONDA) [Presence] in Urine by Confirma tory method <10 >=10 6Mam Ur Ql [facility] ([facility]) gabapentinpregabalin ur ql cfm <5 >=5 Gabap entinpregabalin Ur Ql [facility] ([facility]) Opiates [Presence] in Urine by Confirmatory method <100 >=1 00 Opiates Ur Ql [facility] ([facility]) Cocaine [Presence] in Urine by Confirmatory method <50 >=50 Bze Ur Ql [facility] ([facility]) Meperidine [Presence] in Urine by Confirmatory method <100 >=100 Meperidine Ur Ql [facility] ([facility]) Fentanyl+Norfentanyl [Presence] in Urine by Confirmatory method <5 >=5 Fentanyl+norfentanyl Ur Ql [facility] ([facility]) Carisoprodol+Meprobamate [Presence] in Urine by Screen method <200 >=200 Carisoprodol+meprob Ur Ql Scn JAIRO ([facility]) Methadone [Presence] in Urine by Confirmatory method <200 > =200 Methadone Ur Ql Cfm JAIRO ([facility]) Tramadol [Presence] in Urine by Confirmatory method <100 >= 100 Tramadol Ur Ql Cfm JAIRO ([facility]) Cotinine [Presence] in Urine by Confirmatory method <125 >= 125 Cotinine Ur Ql Cfm JAIRO ([facility]) Creatinine [Mass/volume] in Urine 69.8 mg/dL 20 - 370 normal Cr eat Ur-mcnc JAIRO ([facility]) pH of Urine 4.5 - 9.0 normal pH Ur JAIRO ([facility]) ID Date Data Source [id number] 07/26/2019 12:00:00 AM EST JAIRO ([facility]) Name Value Range Interpretation Code Description Data Moni rce(s) Supporting Document(s) Cyclobenzaprine [Presence] in Urine by Confirmatory method <10 >=10 Cyclobenzaprine Ur Ql JAIRO ([facility]) ID Date Data Source [id number] 07/26/2019 12:00:00 AM EST JAIRO ([facility]) Name Value Range Interpretation Code Description Data Moni rce(s) Supporting Document(s) baclofen ur ql cfm <500 >=500 Baclofen Ur Ql Cf m JAIRO ([facility]) ID Date Data Source [id number] 07/26/2019 12:00:00 AM EST JAIRO ([facility]) Name Value Range Interpretation Code Description Data Moni rce(s) Supporting Document(s) Amitriptyline [Mass/volume] in Urine by Confirmatory method 153 NG/ mL >=10 Amitrip Ur Cfm-mcnc JAIRO ([facility]) Tricyclic antidepressants [Presence] in Urine by Confirmatory me thod >=10 >=10 Tricyclics Ur Ql Cfm JAIOR ([facility]) Nortriptyline [Mass/volume] in Urine by Confirmatory method 24 NG/m L >=10 Nortrip Ur Cfm-mcnc JAIRO ([facility]) ID Date Data Source [id number] 07/26/2019 12:00:00 AM EST JAIRO ([facility]) Name Value Range Interpretation Code Description Data Moni rce(s) Supporting Document(s) ID Date Data Source [id number] 07/26/2019 12:00:00 AM EST JAIRO ([facility]) Name Value Range Interpretation Code Description Data Moni rce(s) Supporting Document(s) ID Date Data Source [id number] 07/26/2019 12:00:00 AM EST JAIRO ([facility]) Name Value Range Interpretation Code Description Data Moni rce(s) Supporting Document(s) Amitriptyline [Mass/volume] in Urine by Confirmatory method 153 NG/ mL >=10 Amitrip Ur Cfm-mcnc JAIRO ([facility]) Nortriptyline [Mass/volume] in Urine by Confirmatory method 24 NG/m L >=10 Nortrip Ur Cfm-mcnc JAIRO ([facility]) Tricyclic antidepressants [Presence] in Urine by Confirmatory me thod >=10 >=10 Tricyclics Ur Ql Cfm JAIRO ([facility]) ID Date Data Source [id number] 07/26/2019 12:00:00 AM EST JAIRO ([facility]) Name Value Range Interpretation Code Description Data Moni rce(s) Supporting Document(s) ID Date Data Source [id number] 07/26/2019 12:00:00 AM EST JAIRO ([facility]) Name Value Range Interpretation Code Description Data Moni rce(s) Supporting Document(s) ID Date Data Source [id number] 07/26/2019 12:00:00 AM EST JAIRO ([facility]) Name Value Range Interpretation Code Description Data Moni rce(s) Supporting Document(s) amitrip ur CMP 178 NG/mL >=10 normal Amitrip Ur CMP JAIRO ([facility]) venlafaxine ur CMP 37340 NG/mL >=5 normal Venlafaxine Ur C MP JAIRO ([facility]) clonazepam ur CMP 917 NG/mL >=50 normal Clonazepam Ur CMP JAIRO ([facility]) baclofen ur CMP <500 >=500 Abnormal (applies to non- numeric results) Baclofen Ur CMP JAIRO ([facility]) hydrocodone ur CMP <100 >=100 Abnormal (applies to n on-numeric results) Hydrocodone Ur CMP JAIRO ([facility]) cyclobenzaprine ur CMP <10 >=10 Abnormal (applies to non-numeric results) Cyclobenzaprine Ur CMP JAIRO ([facility]) ID Date Data Source [id number] 07/26/2019 12:00:00 AM EST JAIRO ([facility]) Name Value Range Interpretation Code Description Data Moni rce(s) Supporting Document(s) odv ur cfm-mcnc 73085 NG/mL >=50 Odv Ur Cfm-mcnc ATH KRUPA ([facility]) venlafaxine ur cfm-mcnc 1800 NG/mL >=5 Venlafaxine Ur Cfm-mcnc JAIRO ([facility]) sn reuptake inhibitors ur ql >=50 >=50 Sn Reup take Inhibitors Ur Ql JAIRO ([facility]) ID Date Data Source [id number] 07/26/2019 12:00:00 AM EST JAIRO ([facility]) Name Value Range Interpretation Code Description Data Moni rce(s) Supporting Document(s) Buprenorphine [Presence] in Urine by Confirmatory method <1 >=1 Buprenorphine Ur Ql Cfm JAIRO ([facility]) Ethyl glucuronide [Mass/volume] in Urine by Confirmatory method <50 0 >=500 Ethyl Glucuronide Ur Cfm-mcnc JAIRO ([facility]) alcohol metabolites ur ql cfm <200 >=200 Alcoho l Metabolites Ur Ql [facility] ([facility]) Benzodiazepines [Presence] in Urine by Confirmatory method >=50 >=50 Benzodiaz Ur Ql [facility] ([facility]) 7-Aminoclonazepam [Mass/volume] in Urine by Confirmatory method 917 NG/mL >=50 7Aminoclonazepam Ur [facility] ([facility]) Amphetamines [Presence] in Urine by Confirmatory method <0 >=0 Amphetamines Ur Ql [facility] ([facility]) Ethyl sulfate [Mass/volume] in Urine by Confirmatory method <200 >=200 Ethyl Sulfate Ur [facility] ([facility]) Tapentadol [Presence] in Urine by Confirmatory method <100 >=100 Tapentadol Ur Ql [facility] ([facility]) gabapentinpregabalin ur ql [facility] <5 >=5 Gabap entinpregabalin Ur Ql [facility] ([facility]) Opiates [Presence] in Urine by Confirmatory method <100 >=1 00 Opiates Ur Ql [facility] ([facility]) Cocaine [Presence] in Urine by Confirmatory method <50 >=50 Bze Ur Ql [facility] ([facility]) 6-Monoacetylmorphine (6-SHALONDA) [Presence] in Urine by Confirma tory method <10 >=10 6Mam Ur Ql [facility] ([facility]) Carisoprodol+Meprobamate [Presence] in Urine by Screen method <200 >=200 Carisoprodol+meprob Ur Ql [facility] ([facility]) Fentanyl+Norfentanyl [Presence] in Urine by Confirmatory method <5 >=5 Fentanyl+norfentanyl Ur Ql [facility] ([facility]) Meperidine [Presence] in Urine by Confirmatory method <100 >=100 Meperidine Ur Ql [facility] ([facility]) Methadone [Presence] in Urine by Confirmatory method <200 > =200 Methadone Ur Ql [facility] ([facility]) Creatinine [Mass/volume] in Urine 69.8 mg/dL 20 - 370 [facility]) Cotinine [Presence] in Urine by Confirmatory method <125 >= 125 Cotinine Ur Ql Cfm JAIRO ([facility]) Tramadol [Presence] in Urine by Confirmatory method <100 >= 100 Tramadol Ur Ql Cfm JAIRO ([facility]) pH of Urine 4.5 - 9.0 normal pH Ur JAIRO ([facility]) ID Date Data Source [id number] 07/26/2019 12:00:00 AM EST JAIRO ([facility]) Name Value Range Interpretation Code Description Data Moni rce(s) Supporting Document(s) Cyclobenzaprine [Presence] in Urine by Confirmatory method <10 >=10 Cyclobenzaprine Ur Ql JAIRO ([facility]) ID Date Data Source [id number] 07/26/2019 12:00:00 AM EST JAIRO ([facility]) Name Value Range Interpretation Code Description Data Moni rce(s) Supporting Document(s) baclofen ur ql cfm <500 >=500 Baclofen Ur Ql Cf m JAIRO ([facility]) ID Date Data Source [id number] 07/26/2019 12:00:00 AM EST JAIRO ([facility]) Name Value Range Interpretation Code Description Data Moni rce(s) Supporting Document(s) Amitriptyline [Mass/volume] in Urine by Confirmatory method 153 NG/ mL >=10 Amitrip Ur Cfm-mcnc JAIRO ([facility]) Tricyclic antidepressants [Presence] in Urine by Confirmatory me thod >=10 >=10 Tricyclics Ur Ql Cfm JAIRO ([facility]) Nortriptyline [Mass/volume] in Urine by Confirmatory method 24 NG/m L >=10 Nortrip Ur Cfm-mcnc JAIRO ([facility]) ID Date Data Source [id number] 07/26/2019 12:00:00 AM EST JAIRO ([facility]) Name Value Range Interpretation Code Description Data Moni rce(s) Supporting Document(s) ID Date Data Source [id number] 07/26/2019 12:00:00 AM EST JAIRO ([facility]) Name Value Range Interpretation Code Description Data Moni rce(s) Supporting Document(s) ID Date Data Source [id number] 07/26/2019 12:00:00 AM EST JAIRO ([facility]) Name Value Range Interpretation Code Description Data Moni rce(s) Supporting Document(s) venlafaxine ur CMP 57402 NG/mL >=5 normal Venlafaxine Ur C MP JAIRO ([facility]) cyclobenzaprine ur CMP <10 >=10 Abnormal (applies to non-numeric results) Cyclobenzaprine Ur CMP JAIRO ([facility]) clonazepam ur CMP 917 NG/mL >=50 normal Clonazepam Ur CMP JAIRO ([facility]) amitrip ur CMP 178 NG/mL >=10 normal Amitrip Ur CMP JAIRO ([facility]) baclofen ur CMP <500 >=500 Abnormal (applies to non- numeric results) Baclofen Ur CMP JAIRO ([facility]) hydrocodone ur CMP <100 >=100 Abnormal (applies to n on-numeric results) Hydrocodone Ur CMP JAIRO ([facility]) ID Date Data Source [id number] 07/26/2019 12:00:00 AM EST JAIRO ([facility]) Name Value Range Interpretation Code Description Data Moni rce(s) Supporting Document(s) sn reuptake inhibitors ur ql >=50 >=50 Sn Reup take Inhibitors Ur Ql JAIRO ([facility]) venlafaxine ur cfm-mcnc 1800 NG/mL >=5 Venlafaxine Ur Cfm-mcnc JAIRO ([facility]) odv ur cfm-mcnc 44172 NG/mL >=50 Odv Ur Cfm-mcnc ATH KRUPA ([facility]) ID Date Data Source [id number] 07/26/2019 12:00:00 AM EST JAIRO ([facility]) Name Value Range Interpretation Code Description Data Moni rce(s) Supporting Document(s) alcohol metabolites ur ql cfm <200 >=200 Alcoho l Metabolites Ur Ql [facility] ([facility]) Buprenorphine [Presence] in Urine by Confirmatory method <1 >=1 Buprenorphine Ur Ql [facility] ([facility]) Ethyl sulfate [Mass/volume] in Urine by Confirmatory method <200 >=200 Ethyl Sulfate Ur [facility] ([facility]) Ethyl glucuronide [Mass/volume] in Urine by Confirmatory method <50 0 >=500 Ethyl Glucuronide Ur [facility] ([facility]) Tapentadol [Presence] in Urine by Confirmatory method <100 >=100 Tapentadol Ur Ql [facility] ([facility]) Benzodiazepines [Presence] in Urine by Confirmatory method >=50 >=50 Benzodiaz Ur Ql [facility] ([facility]) 7-Aminoclonazepam [Mass/volume] in Urine by Confirmatory method 917 NG/mL >=50 7Aminoclonazepam Ur [facility] ([facility]) Amphetamines [Presence] in Urine by Confirmatory method <0 >=0 Amphetamines Ur Ql [facility] ([facility]) Opiates [Presence] in Urine by Confirmatory method <100 >=1 00 Opiates Ur Ql [facility] ([facility]) Cocaine [Presence] in Urine by Confirmatory method <50 >=50 Bze Ur Ql [facility] ([facility]) gabapentinpregabalin ur ql [facility] <5 >=5 Gabap entinpregabalin Ur Ql [facility] ([facility]) Methadone [Presence] in Urine by Confirmatory method <200 > =200 Methadone Ur Ql [facility] ([facility]) 6-Monoacetylmorphine (6-SHALONDA) [Presence] in Urine by Confirma tory method <10 >=10 6Mam Ur Ql [facility] ([facility]) Meperidine [Presence] in Urine by Confirmatory method <100 >=100 Meperidine Ur Ql Cfm JAIRO ([facility]) Tramadol [Presence] in Urine by Confirmatory method <100 >= 100 Tramadol Ur Ql Cfm JAIRO ([facility]) Carisoprodol+Meprobamate [Presence] in Urine by Screen method <200 >=200 Carisoprodol+meprob Ur Ql Scn JAIRO ([facility]) Cotinine [Presence] in Urine by Confirmatory method <125 >= 125 Cotinine Ur Ql Cfm JAIRO ([facility]) Fentanyl+Norfentanyl [Presence] in Urine by Confirmatory method <5 >=5 Fentanyl+norfentanyl Ur Ql Cfm JAIRO ([facility]) Creatinine [Mass/volume] in Urine 69.8 mg/dL 20 - 370 normal Cr eat Ur-mcnc JAIRO ([facility]) pH of Urine 4.5 - 9.0 normal pH Ur JAIRO ([facility]) ID Date Data Source [id number] 07/26/2019 12:00:00 AM EST JAIRO ([facility]) Name Value Range Interpretation Code Description Data Moni rce(s) Supporting Document(s) Cyclobenzaprine [Presence] in Urine by Confirmatory method <10 >=10 Cyclobenzaprine Ur Ql JAIRO ([facility]) ID Date Data Source [id number] 07/26/2019 12:00:00 AM EST JAIRO ([facility]) Name Value Range Interpretation Code Description Data Moni rce(s) Supporting Document(s) baclofen ur ql cfm <500 >=500 Baclofen Ur Ql Cf m JAIRO ([facility]) ID Date Data Source [id number] 07/26/2019 12:00:00 AM EST JAIRO ([facility]) Name Value Range Interpretation Code Description Data Moni rce(s) Supporting Document(s) Amitriptyline [Mass/volume] in Urine by Confirmatory method 153 NG/ mL >=10 Amitrip Ur Cfm-mcnc JAIRO ([facility]) Nortriptyline [Mass/volume] in Urine by Confirmatory method 24 NG/m L >=10 Nortrip Ur Cfm-mcnc JAIRO ([facility]) Tricyclic antidepressants [Presence] in Urine by Confirmatory me thod >=10 >=10 Tricyclics Ur Ql Cfm JAIRO ([facility]) ID Date Data Source [id number] 07/26/2019 12:00:00 AM EST JAIRO ([facility]) Name Value Range Interpretation Code Description Data Moni rce(s) Supporting Document(s) venlafaxine ur CMP 87965 NG/mL >=5 normal Venlafaxine Ur C MP JAIRO ([facility]) amitrip ur CMP 178 NG/mL >=10 normal Amitrip Ur CMP JAIRO ([facility]) clonazepam ur CMP 917 NG/mL >=50 normal Clonazepam Ur CMP JAIRO ([facility]) cyclobenzaprine ur CMP <10 >=10 Abnormal (applies to non-numeric results) Cyclobenzaprine Ur CMP JAIRO ([facility]) baclofen ur CMP <500 >=500 Abnormal (applies to non- numeric results) Baclofen Ur CMP JAIRO ([facility]) hydrocodone ur CMP <100 >=100 Abnormal (applies to n on-numeric results) Hydrocodone Ur CMP JAIRO ([facility]) ID Date Data Source [id number] 07/26/2019 12:00:00 AM EST JAIRO ([facility]) Name Value Range Interpretation Code Description Data Moni rce(s) Supporting Document(s) sn reuptake inhibitors ur ql >=50 >=50 Sn Reup take Inhibitors Ur Ql JAIRO ([facility]) odv ur cfm-mcnc 22128 NG/mL >=50 Odv Ur Cfm-mcnc ATH KRUPA ([facility]) venlafaxine ur cfm-mcnc 1800 NG/mL >=5 Venlafaxine Ur Cfm-mcnc JAIRO ([facility]) ID Date Data Source [id number] 07/26/2019 12:00:00 AM EST JAIRO ([facility]) Name Value Range Interpretation Code Description Data Moni rce(s) Supporting Document(s) Buprenorphine [Presence] in Urine by Confirmatory method <1 >=1 Buprenorphine Ur Ql [facility] ([facility]) Ethyl glucuronide [Mass/volume] in Urine by Confirmatory method <50 0 >=500 Ethyl Glucuronide Ur [facility] ([facility]) alcohol metabolites ur ql cfm <200 >=200 Alcoho l Metabolites Ur Ql [facility] ([facility]) Tapentadol [Presence] in Urine by Confirmatory method <100 >=100 Tapentadol Ur Ql [facility] ([facility]) Ethyl sulfate [Mass/volume] in Urine by Confirmatory method <200 >=200 Ethyl Sulfate Ur [facility] ([facility]) 7-Aminoclonazepam [Mass/volume] in Urine by Confirmatory method 917 NG/mL >=50 7Aminoclonazepam Ur [facility] ([facility]) Amphetamines [Presence] in Urine by Confirmatory method <0 >=0 Amphetamines Ur Ql [facility] ([facility]) Benzodiazepines [Presence] in Urine by Confirmatory method >=50 >=50 Benzodiaz Ur Ql [facility] ([facility]) gabapentinpregabalin ur ql cfm <5 >=5 Gabap entinpregabalin Ur Ql [facility] ([facility]) Cocaine [Presence] in Urine by Confirmatory method <50 >=50 Bze Ur Ql [facility] ([facility]) Opiates [Presence] in Urine by Confirmatory method <100 >=1 00 Opiates Ur Ql [facility] ([facility]) 6-Monoacetylmorphine (6-SHALONDA) [Presence] in Urine by Confirma tory method <10 >=10 6Mam Ur Ql [facility] ([facility]) Meperidine [Presence] in Urine by Confirmatory method <100 >=100 Meperidine Ur Ql [facility] ([facility]) Fentanyl+Norfentanyl [Presence] in Urine by Confirmatory method <5 >=5 Fentanyl+norfentanyl Ur Ql Cfm JAIRO ([facility]) Methadone [Presence] in Urine by Confirmatory method <200 > =200 Methadone Ur Ql Cfm JAIRO ([facility]) Tramadol [Presence] in Urine by Confirmatory method <100 >= 100 Tramadol Ur Ql Cfm JAIRO ([facility]) Carisoprodol+Meprobamate [Presence] in Urine by Screen method <200 >=200 Carisoprodol+meprob Ur Ql Scn JAIRO ([facility]) pH of Urine 4.5 - 9.0 normal pH Ur JAIRO ([facility]) Creatinine [Mass/volume] in Urine 69.8 mg/dL 20 - 370 normal Cr eat Ur-mcnc JAIRO ([facility]) Cotinine [Presence] in Urine by Confirmatory method <125 >= 125 Cotinine Ur Ql Cfm JAIRO ([facility]) ID Date Data Source [id number] 07/26/2019 12:00:00 AM EST JAIRO ([facility]) Name Value Range Interpretation Code Description Data Moni rce(s) Supporting Document(s) Cyclobenzaprine [Presence] in Urine by Confirmatory method <10 >=10 Cyclobenzaprine Ur Ql JAIRO ([facility]) ID Date Data Source [id number] 07/26/2019 12:00:00 AM EST JAIRO ([facility]) Name Value Range Interpretation Code Description Data Moni rce(s) Supporting Document(s) baclofen ur ql cfm <500 >=500 Baclofen Ur Ql Cf m JAIRO ([facility]) ID Date Data Source [id number] 07/26/2019 12:00:00 AM EST JAIRO ([facility]) Name Value Range Interpretation Code Description Data Moni rce(s) Supporting Document(s) Tricyclic antidepressants [Presence] in Urine by Confirmatory me thod >=10 >=10 Tricyclics Ur Ql Cfm JAIRO ([facility]) Amitriptyline [Mass/volume] in Urine by Confirmatory method 153 NG/ mL >=10 Amitrip Ur Cfm-mcnc JAIRO ([facility]) Nortriptyline [Mass/volume] in Urine by Confirmatory method 24 NG/m L >=10 Nortrip Ur Cfm-mcnc JAIRO ([facility]) ID Date Data Source [id number] 07/26/2019 12:00:00 AM EST JAIRO ([facility]) Name Value Range Interpretation Code Description Data Moni rce(s) Supporting Document(s) ID Date Data Source [id number] 07/26/2019 12:00:00 AM EST JAIRO ([facility]) Name Value Range Interpretation Code Description Data Moni rce(s) Supporting Document(s) ID Date Data Source [id number] 07/26/2019 12:00:00 AM EST JAIRO ([facility]) Name Value Range Interpretation Code Description Data Moni rce(s) Supporting Document(s) amitrip ur CMP 178 NG/mL >=10 normal Amitrip Ur CMP JAIRO ([facility]) venlafaxine ur CMP 48720 NG/mL >=5 normal Venlafaxine Ur C MP JAIRO ([facility]) clonazepam ur CMP 917 NG/mL >=50 normal Clonazepam Ur CMP JAIRO ([facility]) cyclobenzaprine ur CMP <10 >=10 Abnormal (applies to non-numeric results) Cyclobenzaprine Ur CMP JAIRO ([facility]) hydrocodone ur CMP <100 >=100 Abnormal (applies to n on-numeric results) Hydrocodone Ur CMP JAIRO ([facility]) baclofen ur CMP <500 >=500 Abnormal (applies to non- numeric results) Baclofen Ur CMP JAIRO ([facility]) ID Date Data Source [id number] 07/26/2019 12:00:00 AM EST JAIRO ([facility]) Name Value Range Interpretation Code Description Data Moni rce(s) Supporting Document(s) venlafaxine ur cfm-mcnc 1800 NG/mL >=5 Venlafaxine Ur Cfm-mcnc JAIR[facility] ([facility]) sn reuptake inhibitors ur ql >=50 >=50 Sn Reup take Inhibitors Ur Ql JAIRO ([facility]) odv ur cfm-mcnc 11152 NG/mL >=50 Odv Ur Cfm-mcnc ATH KRUPA ([facility]) ID Date Data Source [id number] 07/26/2019 12:00:00 AM EST JAIRO ([facility]) Name Value Range Interpretation Code Description Data Moni rce(s) Supporting Document(s) Buprenorphine [Presence] in Urine by Confirmatory method <1 >=1 Buprenorphine Ur Ql [facility] ([facility]) Tapentadol [Presence] in Urine by Confirmatory method <100 >=100 Tapentadol Ur Ql [facility] ([facility]) Ethyl sulfate [Mass/volume] in Urine by Confirmatory method <200 >=200 Ethyl Sulfate Ur [facility] JAIRO ([facility]) Ethyl glucuronide [Mass/volume] in Urine by Confirmatory method <50 0 >=500 Ethyl Glucuronide Ur [facility] JAIRO ([facility]) alcohol metabolites ur ql cfm <200 >=200 Alcoho l Metabolites Ur Ql Cfm HULL ([facility]) Amphetamines [Presence] in Urine by Confirmatory method <0 >=0 Amphetamines Ur Ql [facility] ([facility]) 7-Aminoclonazepam [Mass/volume] in Urine by Confirmatory method 917 NG/mL >=50 7Aminoclonazepam Ur [facility] JAIRO ([facility]) Benzodiazepines [Presence] in Urine by Confirmatory method >=50 >=50 Benzodiaz Ur Ql [facility] JAIRO ([facility]) Opiates [Presence] in Urine by Confirmatory method <100 >=1 00 Opiates Ur Ql [facility] JAIRO ([facility]) 6-Monoacetylmorphine (6-SHALONDA) [Presence] in Urine by Confirma tory method <10 >=10 6Mam Ur Ql Cfm JAIR[facility] ([facility]) Cocaine [Presence] in Urine by Confirmatory method <50 >=50 Bze Ur Ql Cfm JAIRO ([facility]) gabapentinpregabalin ur ql cfm <5 >=5 Gabap entinpregabalin Ur Ql Cfm HULL ([facility]) Methadone [Presence] in Urine by Confirmatory method <200 > =200 Methadone Ur Ql Cfm JAIRO ([facility]) Fentanyl+Norfentanyl [Presence] in Urine by Confirmatory method <5 >=5 Fentanyl+norfentanyl Ur Ql Cfm [facility] ([facility]) Meperidine [Presence] in Urine by Confirmatory method <100 >=100 [facility] Tramadol [Presence] in Urine by Confirmatory method <100 >= 100 [facility] pH of Urine 4.5 - 9.0 normal pH Ur [facility]ULL ([facility]) Carisoprodol+Meprobamate [Presence] in Urine by Screen method <200 >=200 Carisoprodol+meprob Ur Ql Scn JAIRO ([facility]) Cotinine [Presence] in Urine by Confirmatory method <125 >= 125 [facility] Creatinine [Mass/volume] in Urine 69.8 mg/dL 20 - 370 normal Cr eat Ur-mcnc HULL ([facility]) ID Date Data Source [id number] 07/26/2019 12:00:00 AM EST JAIRO ([facility]) Name Value Range Interpretation Code Description Data Moni rce(s) Supporting Document(s) Cyclobenzaprine [Presence] in Urine by Confirmatory method <10 >=10 Cyclobenzaprine Ur Ql HULL ([facility]) ID Date Data Source [id number] 07/26/2019 12:00:00 AM EST JAIRO ([facility]) Name Value Range Interpretation Code Description Data Moni rce(s) Supporting Document(s) baclofen ur ql cfm <500 >=500 Baclofen Ur Ql Cf m JAIRO ([facility]) ID Date Data Source [id number] 07/26/2019 12:00:00 AM EST JAIRO ([facility]) Name Value Range Interpretation Code Description Data Moni rce(s) Supporting Document(s) Tricyclic antidepressants [Presence] in Urine by Confirmatory me thod >=10 >=10 Tricyclics Ur Ql Cfm JAIRO ([facility]) Nortriptyline [Mass/volume] in Urine by Confirmatory method 24 NG/m L >=10 Nortrip Ur Cfm-mcnc JAIRO ([facility]) Amitriptyline [Mass/volume] in Urine by Confirmatory method 153 NG/ mL >=10 Amitrip Ur Cfm-mcnc JAIRO ([facility]) ID Date Data Source [id number] 07/26/2019 12:00:00 AM EST JAIRO ([facility]) Name Value Range Interpretation Code Description Data Moni rce(s) Supporting Document(s) ID Date Data Source [id number] 07/26/2019 12:00:00 AM EST JAIRO ([facility]) Name Value Range Interpretation Code Description Data Moni rce(s) Supporting Document(s) ID Date Data Source [id number] 07/26/2019 12:00:00 AM EST JAIRO ([facility]) Name Value Range Interpretation Code Description Data Moni rce(s) Supporting Document(s) venlafaxine ur CMP 30421 NG/mL >=5 normal Venlafaxine Ur C MP JAIRO ([facility]) amitrip ur CMP 178 NG/mL >=10 normal Amitrip Ur CMP JAIRO ([facility]) clonazepam ur CMP 917 NG/mL >=50 normal Clonazepam Ur CMP JAIRO ([facility]) hydrocodone ur CMP <100 >=100 Abnormal (applies to n on-numeric results) Hydrocodone Ur CMP JAIRO ([facility]) baclofen ur CMP <500 >=500 Abnormal (applies to non- numeric results) Baclofen Ur CMP JAIRO ([facility]) cyclobenzaprine ur CMP <10 >=10 Abnormal (applies to non-numeric results) Cyclobenzaprine Ur CMP JAIRO ([facility]) ID Date Data Source [id number] 07/26/2019 12:00:00 AM EST JAIRO ([facility]) Name Value Range Interpretation Code Description Data Moni rce(s) Supporting Document(s) sn reuptake inhibitors ur ql >=50 >=50 Sn Reup take Inhibitors Ur Ql JAIRO ([facility]) venlafaxine ur cfm-mcnc 1800 NG/mL >=5 Venlafaxine Ur Cfm-mcnc JAIRO ([facility]) odv ur cfm-mcnc 77051 NG/mL >=50 Odv Ur Cfm-mcnc ATH KRUPA ([facility]) ID Date Data Source [id number] 07/26/2019 12:00:00 AM EST JAIRO ([facility]) Name Value Range Interpretation Code Description Data Moni rce(s) Supporting Document(s) Buprenorphine [Presence] in Urine by Confirmatory method <1 >=1 Buprenorphine Ur Ql Cfm JAIRO ([facility]) alcohol metabolites ur ql cfm <200 >=200 Alcoho l Metabolites Ur Ql Cfm JAIRO ([facility]) Tapentadol [Presence] in Urine by Confirmatory method <100 >=100 Tapentadol Ur Ql Cfm JAIRO ([facility]) Ethyl glucuronide [Mass/volume] in Urine by Confirmatory method <50 0 >=500 Ethyl Glucuronide Ur Cfm-mcnc JAIRO ([facility]) Ethyl sulfate [Mass/volume] in Urine by Confirmatory method <200 >=200 Ethyl Sulfate Ur Cfm-mcnc JAIRO ([facility]) Amphetamines [Presence] in Urine by Confirmatory method <0 >=0 Amphetamines Ur Ql Cfm JAIRO ([facility]) gabapentinpregabalin ur ql cfm <5 >=5 Gabap entinpregabalin Ur Ql [facility] ([facility]) 7-Aminoclonazepam [Mass/volume] in Urine by Confirmatory method 917 NG/mL >=50 7Aminoclonazepam Ur [facility] ([facility]) Benzodiazepines [Presence] in Urine by Confirmatory method >=50 >=50 Benzodiaz Ur Ql [facility] ([facility]) Opiates [Presence] in Urine by Confirmatory method <100 >=1 00 Opiates Ur Ql [facility] ([facility]) 6-Monoacetylmorphine (6-SHALONDA) [Presence] in Urine by Confirma tory method <10 >=10 6Mam Ur Ql [facility] ([facility]) Cocaine [Presence] in Urine by Confirmatory method <50 >=50 Bze Ur Ql [facility] ([facility]) Fentanyl+Norfentanyl [Presence] in Urine by Confirmatory method <5 >=5 Fentanyl+norfentanyl Ur Ql [facility] ([facility]) Carisoprodol+Meprobamate [Presence] in Urine by Screen method <200 >=200 Carisoprodol+meprob Ur Ql [facility] ([facility]) Methadone [Presence] in Urine by Confirmatory method <200 > =200 Methadone Ur Ql [facility] ([facility]) Meperidine [Presence] in Urine by Confirmatory method <100 >=100 Meperidine Ur Ql [facility] ([facility]) pH of Urine 4.5 - 9.0 normal pH Ur [facility]ULL ([facility]) Tramadol [Presence] in Urine by Confirmatory method <100 >= 100 Tramadol Ur Ql [facility] ([facility]) Cotinine [Presence] in Urine by Confirmatory method <125 >= 125 Cotinine Ur Ql [facility] ([facility]) Creatinine [Mass/volume] in Urine 69.8 mg/dL 20 - 370 normal Cr eat [facility] ([facility]) ID Date Data Source [id number] 07/26/2019 12:00:00 AM EST JAIRO ([facility]) Name Value Range Interpretation Code Description Data Moni rce(s) Supporting Document(s) Cyclobenzaprine [Presence] in Urine by Confirmatory method <10 >=10 Cyclobenzaprine Ur Ql JAIRO ([facility]) ID Date Data Source [id number] 07/26/2019 12:00:00 AM EST JAIRO ([facility]) Name Value Range Interpretation Code Description Data Moni rce(s) Supporting Document(s) baclofen ur ql cfm <500 >=500 Baclofen Ur Ql Cf m JAIRO ([facility]) ID Date Data Source [id number] 07/13/2019 07:11:44 AM EST [facility] INFORMATIONPatient MRN Name Date of Age Gend*PT [id number] Marroquin Elena 1965 54 years F ---PT Location Admission Date/Time Visit ID Attending Provider --- --- --- --- EPI ID CSN Admitting Provider [id number] ---Name: Elena MarroquinDOB: 1965Date: 07/13/19CIED Remote CheckImplanted Device 07/11/2019Device Seat Scooper Machine MedtronicDevice type Single Chamber ICDMRI Conditional Device -Device was remotely interrogated and the following were evaluated:Battery statusSummary arrhythmia logsNew observationsFidelity of the EGM signalIntegrity of leads and lead impendence were reevaluatedConclusion:Normal ICD function.No significant changes continue to monitor.Signature: Law Vasquez MD, [facility], FHRSCardiac Electrophysiology and Arrhythmia ServiceDate: July 13, 2019Time: 7:11 AMThis document or parts of this document, were dictated using [employer]. A reasonable attempt at proofreading has been made to minimize errors.Please call with any questions or corrections. Name Value Range Interpretation Code Description Data Moni rce(s) Supporting Document(s) ID Date Data Source [id number] 07/13/2019 07:11:44 AM EST [facility]PAT[facility] NT INFORMATIONPatient MRN Name Date of Age Gend*PT [id number] Elena Marroquin 1965 54 years F ---PT Location Admission Date/Time Visit ID Attending Provider --- --- --- --- EPI ID CSN Admitting Provider [id number] ---Heart Failure Management ReportPatient has a history of ventricular tachycardia. According to this report,patient has not had VT/VF. There is not evidence of AT/AF. In regards toOptivol, patient has not crossed fluid threshold. Average ventricular responseat night is 65.Marge Mitchell NPThis document or parts of this document, were dictated using [employer] A reasonable attempt at proofreading has been made to minimize errors.Please call with any questions or corrections. Name Value Range Interpretation Code Description Data Moni rce(s) Supporting Document(s) ID Date Data Source [id number] 07/12/2019 04:17:00 PM EST [facility] ([facility]) Name Value Range Interpretation Code Description Data Moni rce(s) Supporting Document(s) <0.2 0.0-1.0 CRP [facility] ([facility]) ID Date Data Source [id number] 07/12/2019 04:17:00 PM EST [facility] ([facility]) Name Value Range Interpretation Code Description Data Moni rce(s) Supporting Document(s) 1.0 mg/dL 0.6-1.2 CREATININE [facility] ([facility]) 57.4 mL/min/1.73m eGFR [facility] ([facility]) ID Date Data Source [id number] 07/12/2019 04:17:00 PM EST [facility] ([facility]) Name Value Range Interpretation Code Description Data Moni rce(s) Supporting Document(s) 34 U/L 15-37 AST [facility] ([facility]) ID Date Data Source [id number] 07/12/2019 04:17:00 PM EST [facility] ([facility]) Name Value Range Interpretation Code Description Data Moni rce(s) Supporting Document(s) 69 U/L 30-65 Above high normal ALT [facility] ([facility]) ID Date Data Source [id number] 07/12/2019 04:17:00 PM EST [facility] ([facility]) Name Value Range Interpretation Code Description Data Moni rce(s) Supporting Document(s) 4.4 g/dL 3.4-4.4 ALB [facility] ([facility]) ID Date Data Source [id number] 07/12/2019 04:17:00 PM EST [facility] ([facility]) Name Value Range Interpretation Code Description Data Moni rce(s) Supporting Document(s) <2 0-20 ESR [facility] ([facility]) ID Date Data Source [id number] 07/12/2019 04:17:00 PM EST [facility] ([facility]) Name Value Range Interpretation Code Description Data Moni rce(s) Supporting Document(s) 4.67 10*6/uL 3.50-5.50 RBC [facility] ([facility]) 7.9 10*3/uL 3.7-10.1 WBC [facility] ([facility]) 14.7 g/dL 12.0-16.0 HGB [facility] ([facility]) 43.8 % 36.0-48.0 HCT [facility] ([facility]) 93.7 fL 80.0-100.0 MCV [facility] ([facility]) 31.4 pg 26.0-34.0 MCH [facility] ([facility]) 33.5 g/dL 31.0-37.0 MCHC [facility] ([facility]) 11.8 % 10.0-15.0 RDW [facility] ([facility]) 7.0 fL 6.0-10.0 MPV [facility] ([facility]) 241 10*3/uL 150-500 PLATELETS [facility] ([facility]) 3.76 10*3/uL 2.10-8.00 NED# [facility] ([facility]) 0.50 10*3/uL 0.10-1.00 MONO# [facility] ([facility]) 3.27 10*3/uL 1.00-5.00 LYM# [facility] ([facility]) 0.2 10*3/uL 0.0-0.5 EOS# [facility] ([facility]) 0.2 10*3/uL 0.0-0.2 BASO# [facility] ([facility]) 47.6 % 50.0-80.0 Below low normal NED% [facility] 6.3 % 2.0-10.0 MONO% [facility] ([facility]) 41.4 % 25.0-50.0 LYM% [facility] ([facility]) 2.8 % 0.0-5.0 EOS% [facility] ([facility]) 1.9 % 0.0-4.0 BASO% [facility] ([facility]) ID Date Data Source [id number] 07/21/2019 04:40:00 AM EST [facility] FASTING: UNKNOWNReceived: 07/15/2019 at 00:43:00 EZ: [facility],, [address] [place], [address], Korin Jean MD,PhD,DAYAN Name Value Range Interpretation Code Description Data Moni rce(s) Supporting Document(s) Chymotrypsin [Enzymatic activity/mass] in Stool 2.5 U/g 2.3-51.4 [facility] This test was developed and its analytic al performancecharacteristics have been determined by [facility]. It has not beencleared or approved by FDA. This assay has been validatedpursuant to the CLIA regulations and is used for clinicalpurposes. ID Date Data Source [id number] 06/30/2019 03:00:00 PM EST [facility] Name Value Range Interpretation Code Description Data Moni rce(s) Supporting Document(s) Follow Up [facility] PIZKJw5zVkUNGdNpQKWzDovBQDcgYFjmASNbD9A1IAbeVn3HATjrzoNlRVKhQv9+OOSwIC8tmt8nONDh gMy [file] A4m9CKcSM8tlX5ZaihFLVG3+4rUCOvc020ddSxr7HB7Qwk8ABxawDF6djnn5ZOctk05rLtZQh2nQ/Carlos A [file] w3cxVw8OSKreKu4+Medical Insurance Claims Specialist+17y9LZDXQUDGtmzZufTQJb1Hremj8b+wAmKsaXTjBmI66Onik7JYewBYdrzk9 [file] yp/iXCGi/R25PCa4ssZz7jgxtw5z3q2+line 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/Ak5rcy3e/+QEQZI/nNw1zrSFupziXsGYmVP+fXwEfAPFu jB5ZosMspppuIEqPv/Zk9l8fM5CSAzpVtG4h5EA7kDZaGtlZZ7+UTGe7gUOh7TsLw4AHQcG5+Qpz91RK oPtcK4Pyz7U0p8IOe/JJSjxB3QKdW8rQX8x8MM8iEw FM5w7qQYz227yw537W0ET0wKxmSh+roF7RPPEV99N8xj1+/LIAo7ahQ6qREhGmndmpjyoF2HsMXOTp2g IEb0+1vU0X4EX/141y9AQlWbMwAwGP2L/hxqZmm672VOooil6JRjzXVP3Vuq9R/P2V7+MNIVuBVJnOCj iqSJ+PWTJtRzv0dE3CX8BXzKcNa4NaUiuoBmbG4Jpf BHCmDODaxRkp+cVbdfJWAdmPsRXczyWTH2Y9eJfzL6aaTyucNRuxTrRt5pwJI46AJHsgSa78XOP7rQvH QE5ccxeo1UWSpFvP8nKICwwhwUPDlwSk2pHgA5SRPPY06IpU5fSUKnpVda4Epe3IdJpfydwjdCDD1QAj M5Kv49BosUfNo9/3tnKoWeJlxcLIxrPInEYJhwkkkM o2udrLqoFc8fWG1jFccm5np3fvNXuWzaQ63mMC0E617dPubd4nN+DP02Bzcu+XJUPjUhX72edUf2GJpV BuWbQ7hi6xW1OGV8LiLsGXet3ncNCitMsj78ikV75qpjhRjim0Dt4Bz6f02rifP6I15pZfD4MVe+aw7L RY8NBRisudxue4sp04GdyVH31hU1Zm4iAmSNqQ/Alfredo [file] XtKf8Q/Tq/HwYkx3iCMZQiCcxpadLcJNDfDqPTs7Jdl7LElqL+rrPZy20pawhswdvMnRSOMP2gsq/Manager Legal [file] SS6ObQibDQMHu9umAbmxoxLMjB1UbIprn4WQdvc6lLxr4jiwq5/chapter relations administrator/kfCiUIOJLhS/pswI0hz6QQ90w [file] tUYGJsGf8U8v9BytwsRlX6uq1kxw6GgIwI/pDHn9rcqUPBhs/7H+Dulce Maria+2AmbU8aGyVUJqRw8matwQcEw [file] 4wErMetDorLXxzr8/Meño+dyU855JyoBHOUbYFU424 [file] 7SoM3v9BtNr76j/Juan A/n8Qu4R31Hf7yFlenqdh761mHo2xX74vy1h25aG0wlnj9AAdk8PCobvrb1D3W [file] bqh7IaUNE3CawStDFXDszfPAEPKWjpvb6Fa6N8dJCypSKG3P0xeyNt4/Vidal+NVzVZf+8tdofhCA7rgch KcG4rfolOSod+vx9Y8a8Hytqdt9ATbFK6nZF7NgDix58rEw5LiHtqOHUe/Mvirqz4/gsSI4YhJe1FJNJ nvv2nrFUnXIVmD0mcqFaP3gYkqNiVGRNYujFuBLATa RC8SQgGlVmKafqk3q04SdR8xNYwIgbJqGIU4Xp6YQ0ykRhSBiQK/JwCjsGCdyrHYK5W2hS+K6lwDCAcz 3x7E04KeMQGhbQdn9blGUy9OfXWaGSRJ4GvGULC//r0rnZEHshvSWZmzODGCkkELfuHcgWFI+XQMSX+j TOv1z5D6SSYHDl6NJqGz70Gtvb91N8X6rwIumOqoeF CcijmLlsFQwEbb6qR/kz7O/j32VgfFjRhEAuaGzUSxN4vzSrXYtaVIaHWIh+4+vu88KwD0dvR4WNpZjN vnExOj+Tl1ltqbQwhEV4/HlYkaTJ7yAEou16rXgEcNu+qo5DOgZcLJcdB0Y6gZv2TuKwFeaMUyewp6Or p5Cyj9V0XIuwOaNEho5ORv2VUCFqoQSEAnhg1rGK9W AmrxfrV93vR9xQKn7JNzObSlsf9qY49DNUlhYIez22uDaA2Dy+CibchDxuhwh4ENbsfSLUSCMMN3v1x0 IQGmzjEK1POFdh4fk3HEtunh/PSv3igfNQcp9BwmBbC71er2uRYsu71brbRFJiVPaWnUglodL+8wAuEN hXQJdfor9Jnj0jEjQC/tqNrIU2x2TcW3KPX8Czom4h EoWoWnf02pdF/PYYiXVTvnvnYw0z8s/jk+b8l5HAjPs8pl27nypMemaWc/uP7GQBNC6DPYHpiIBF/4BD dough puncher+uOpnCE4D2lR0L08+lfbuZ6NJE+nRKB/8qPTTEj5guwpG7vqvcMaU+snmRZolIyufO4sUl6z6L7egy [file] MITzajkw43hbJm/ZEgPi+Qr7FJ2tLT1SRBCPsheZBfq4c1buXO2Daf5ahduqtr9Lk09M6v1qious/CUSTOMER SERVICER [file] lAXGi7ad080rmvPawFEgdvncBk+ParnDZ/V8K6DlAS3AkF8oiEj/mottler operator+GyOSb8vHUBU6IXh4chETVu9d [file] Fátima/kTG9TYeh4FipOFcanwPPzyMCzE8LUmtpcsIhSc [file] ZzqCQt+Segun/4xjQdDTRSrgp0t6H2VoA37oaSNQic2Dm8CzDPk20IG1qFPUyeTm9vFD5r5GwrLv39w82j 9sHn0Ni/0rRQyem8Qp23YE741BAv96wHKmSCh6Z/zpmhYsbjqrHSrbXPXlyu387UKlelIcD0cjWcVbaz 6uXvllguNJmQaVACE+rV+sanitation engineer+KuP1RIqNd11YR+NY0 [file] YvtYVtfujJFflX6dFknUYmkMTG4LAzn5C+[place]/cFmCEFmePk5c17g3hN3sR0sc6HJxi9cfUI4DeMnuFP [file] 4vKgjlOSfTYBpjiNAzrdUyn6XvMp94MAFd7mjg9I37/ORjx3tSW9/oTJ5cHsa6JW+UzC6tmSu0y2+BARREL WASHER [file] DX+E1uhUQMY/BPtbpZBX/+75tR0jr9W+b9vwen [file] 88BHXth3/2dcNg+AErmgf1tFqXfMbiLrujCux3ZWrwJ1pe0iYCY0RrO7qQWxQBDSSV/WEB ANALYTICS DEVELOPER/15lVsYwfw [file] Mary [file] 0GFLL+7zgOgnbrRJiGPZJHgMS/Mlk3CXyMsna8F/wedding coordinator [file] qaJwCf0yHR13hQ8pPBeyMXCANf+q1p4ZTvROqA7/OSwjDIBWUdm9KIcYvqi+blocker and cutter contact lens+XVF47goolsaimQvn [file] bwZMWjTJoJbzaYRV77+e9hb1nDK2jKtnJdDcgalqC2Z3fXi785qA7Z+Pu9ft+tOpBolfurQAoF4AP+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 [file] Miguel Ángel+bICv8ueoSd1TFr1KtFw5AQkKhC2Da5dA5uwTSt [file] cGf/5nQGjXY/Md5u4CkQ6RxJmeKqLf88Mi+GnszJl1H3Y2OQDntK+yu243P2QAHBPYzbrizIf/line 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/h/Q [file] 2a41lDTMOXCG5QcAcFL7MfacbCqKA1pk/Víctor/V4z1GnSG/J3E73Msnozfz6lFHojKS9jjTDscWso6ZoH [file] x2u/hogshead roller+ZPVa77cmayg8iFXFC6ba3ztytXowkQkyNYR9bpScFV/nMMH/8ea2lSv1snYbbN4BGOLSh7Qg Pn+6ODfaW2/xDwedXfFn++ex7TWC6+4Hq66lGz65r2 RH9p+V+M7D95/7fx/jgZQNY20d6KYF6SbrM7WLSxWto3FSdYV7Z0LQVJe/mGcc8Qe2mvCgRxk2YgD1up bYm4ZXnON5NdDnx6sg8rqmV/oB//T9u3Y23q++Vahe+ma9Gv5DKTwzYwftb958rXLzKfZNW1CrtpLYWe8 RGO0RlwBZOOjnc5kyMCyFI/+pRlVc1saHK1fjywcSD y07aZ4YF98KPF3KGiw1W7XE9G2LlCQ/eCR7pQ0vAHO8KN3o+nfzvczOQxwS3Hyu9wAqTxBvFIzmIgbSF PmakhxAA1FgrPeI6vPDLXjBFnOM2PbP9dtt/4SbUzaIsqCNrNQP6DyTsUlfENmsqCik7v/MQGiE1nV8E hk9jLM7bLfA/H5htWoI4TqmRhD65/7h5V7fqdjhwWL DQ1h4ag/FB1BvmKokvAYzeQMb2e36XsHhxaxrVzVbzsImD89SRwheD6j1qeiXsiwgg/pgcCr6ZwArJO+ 2WPm4mqVru3SlHYQt4OtcUQMH9HeKjBv5UHs0ywW8ohES0wzHdhA4WnE9kL+TfB0jlIkUd5M0Bpu7vrM ds7Bx4vWYN4NQm5al5IoNb+aHDiMWKENY2YMf4HXpc /c0r6fIe8pcucF5tnb6N4+iWy5Kj82ohMUCz9wH1lcO9UtiDhA0KaUh7+XGQMOupN+7KCfSrlPuKVfFc Y08E6eO/PNHG+3w82S31OUs2W6W0DuEQXPue+sll8M9hJtNRgK5lYBecZ2VfBoEn5u9yiaNcprS1exej 8G1pZCw7H0dRxeP8nE0MqGGtQg2wd9pJmjIqg+28Ya qR9xZuo19MnxQIP6HIBAymV49kI7ckSlXFv2E/7eIm4CvAFhl3E4iwlcODWZZJKjIiPk2AsjmoDX0E7Q cXfErK/ZEFONIDXayOEK6BloeSL9eL7TssAo24TvQ+NIKITA+kMsr0Rf89QJgatY2o3y54y0JnvXfbnVBHMa 2KQuzVRuF4p2/Ah9GzQQIVvC4+5554D/wy0trkMh5l Rxpsq0oHDicmqMwbVas7gCF9zXVnF3Z8XOjmLHJ8wff3b+psEfinq9L+Kt7nxJvZjz4ufrQMAtnYyAq6 keOU5Q8IaGV0k5CuPwn8OjkqUHRzPIs0WbsHHNslAiqbq3iihUcSXKGN+PjlOJb0Zvr0TiL2vZ5bTWfR 2Dd3LhQjtj1lsSaxcCcG8xWdipXBDynucXahJ3Kqil /P1sWzTomKa0ro1qSdcBRqbR5G0INg8XcAKynKTSTDrijkXZlrjialJnsJXzSpFsJAUwCBfooEs673Mp 3jmQc94IdlEmH55j5muiI6YSc329xZMTGgtgKYwYlwftAByl7MuRGP16vsqQLX5COBzgvTfV0mJj+hE0 QTaEjDDbLVLsAZ05cX4MKJUuemdEv0k+Q7bh2JSk/N aqJb4hOitOOl7a7zNY36k1o3cbmmpXHXU9gkTQWj2E5+GOPsCRn9UwmxYvGR+bUjs3CHc7E3YTRMQg+r Xb39rNvP+QY5HwdwxFmtCYjLK70zktoCjV5zXYYyIrizCX39Rt+OTRQunH9vOjy4lR023lsrrjSbt7id 7TFVPyDOUgqxRawyfukLc//5JDmNFa92yUvXbjzg [file] +R+IadlYC1FtAvsXmgDgz+fátima+4LqUY6bOlSt85c3NpYIHpQwQ37mkNu/5Q0DvA+B8pSUJZPu1si0Ele [file] line 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/uJbEJA0Sn+U080pRnJVWjHyW82VadoPIMjGez8tdzTbGswDeuL6K5OcDJRjpOdHFmp2OMeTR5DB7t [file] 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/6AWxSvBBxkVb36/QZM62RNt/4Ek/q+hGCm24e/A [file] dough puncher+VNFtdyCgQ+CtmD34mB5GUPfCFEQsWoq/D3/02nSh1sc+PokOgeJ+zByvUq7rcwjHFHODzshYJ+9nK [file] battery plate assembler/MRQ3PGQXVpfq6kPNepHMTv+zvniBLWGzgOcTtekiEa9uHI/w9DCyFyXAKXw813oB1OyJxy25omeU [file] residential lawn specialist/SnwNtjEJvw9watjIqfjQI9hmjMgryvCvjod/Ug [file] X9E4GAOfDZJQYQziFFUQSpA6EXFDSWMwIMRLMOlEAMUuJDhwDEsmATB6OGUBWYK8HvR+UQ4He933HTLk DIFZX1hhCn2eExGaIYCyJ0j2VMSoAC8PlIGqJW5NAt HbJ8aaLbCmKHXwNA5+s1SeCCPzOEw42kUiAZNVXnQAqnbc6kYHicYPxJOBSTXpgNOlHFKWX6NolFXV1Z 92UACYnsZbN9PLmPjGHS9iYcQQlOX5RxYjzVlDytPU8bnVpBTlEwWDfPTXWZmyrbTjhNLeFX8SGbGeHI 8exm0NIrP2LJN5oKGpBd7BSNp7KGK1EI1DAQCPJ8Q= ID Date Data Source [id number] 06/22/2019 07:19:51 AM EST [facility] INFORMATIONPatient MRN Name Date of Age Gend*PT [id number] Elena Marroquin 1965 54 years F ---PT Location Admission Date/Time Visit ID Attending Provider --- --- --- --- EPI ID CSN Admitting Provider [id number] ---Name: Elena MarroquinDOB: 1965Date: 06/22/19CIED Remote CheckImplanted Device 06/17/2019Device Seat Scooper Machine MedtronicDevice type Single Chamber ICDMRI Conditional Device -Device was remotely interrogated and the following were evaluated:Battery statusSummary arrhythmia logsNew observationsFidelity of the EGM signalIntegrity of leads and lead impendence were reevaluatedConclusion:Normal ICD function.No significant changes continue to monitor.Signature: Law Vasquez MD, FACC, RSCardiac Electrophysiology and Arrhythmia ServiceDate: June 22, 2019Time: 7:19 AMThis document or parts of this document, were dictated using [employer]. A reasonable attempt at proofreading has been made to minimize errors.Please call with any questions or corrections. Name Value Range Interpretation Code Description Data Moni rce(s) Supporting Document(s) ID Date Data Source [id number] 06/22/2019 07:19:51 AM EST [facility] NT INFORMATIONPatient MRN Name Date of Age Gend*PT [id number] Elena Marroquin 1965 54 years F ---PT Location Admission Date/Time Visit ID Attending Provider --- --- --- --- EPI ID CSN Admitting Provider [id number] ---Heart Failure Management ReportPatient has a history of ventricular tachycardia. According to this report,patient has not had VT/VF. There is not evidence of AT/AF. In regards toOptivol, patient has not crossed fluid threshold. Average ventricular responseat night is 70.Low Torres document or parts of this document, were dictated using [employer] A reasonable attempt at proofreading has been made to minimize errors.Please call with any questions or corrections. Name Value Range Interpretation Code Description Data Moni rce(s) Supporting Document(s) Procedure Social History Code Duration Value Status Description Data Source(s ) Caffeine Use Details 06/07/2020 12:00:00 AM EST completed soda, 8 oz [facility] ([facility]) Smoking 06/07/2020 12:00:00 AM EST Unknown if ever smoked comp leted Unknown if ever smoked [facility] ([facility]) Smoking 05/21/2020 12:00:00 AM EST Patient has never smoked co mpleted Patient has never smoked [facility] ([facility]) Alcohol Use Details 02/20/2020 12:00:00 AM EDT completed wine 1 drink rarely [facility] ([facility]) 02/20/2020 12:00:00 AM EDT Never smoked tobacco comple alexys Never smoked tobacco [facility] ([facility]) Alcohol intake 01/15/2020 12:00:00 AM EDT Current non-d crystal of alcohol (finding) completed Current non-drinker of alcohol (finding) [facility] Tobacco use and exposure 01/15/2020 12:00:00 AM EDT Never used co mpleted Never used [facility] Smoking 01/15/2020 12:00:00 AM EDT Never smoker completed Never s [facility] Caffeine Use Details 07/12/2019 12:00:00 AM EST soda, 8 oz completed soda, 8 oz [facility] ([facility]) Vital Signs ID Date Data Source UNK Name Value Range Interpretation Code Description Data Source(s) Redig body weight 120 [lb_av] 120 [lb_av] MEDEN T ([facility]) Oxygen saturation in Arterial blood by Pulse oximetry 93 % 93 % [facility] Body temperature 99.2 [degF] 99.2 [degF] [facility] Respiratory rate 18 /min 18 /min [facility] ( [facility] Heart rate 112 /min 112 /min [facility] ([facility]) Body height 64 [in_i] 64 [in_i] [facility] ([facility]) 5'4" Diastolic blood pressure 78 mm[Hg] 78 mm[Hg] [facility] ([facility]) Systolic blood pressure 128 mm[Hg] 128 mm[Hg] M [facility] ([facility]) Redig body weight 120 [lb_av] 120 [lb_av] MED[facility] T ([facility] Oxygen saturation in Arterial blood by Pulse oximetry 97 % 97 % [facility] ([facility] Body temperature 99.4 [degF] 99.4 [degF] [facility] Respiratory rate 18 /min 18 /min [facility] ( [facility] Heart rate 121 /min 121 /min [facility] ([facility] Body mass index (BMI) [Ratio] 32.4 kg/m2 32.4 k g/m2 [facility] ([facility]) Body weight 189.00 [lb_av] 189.00 [lb_av] MED[facility] T ([facility] Body height 64 [in_i] 64 [in_i] [facility] 5'4" Diastolic blood pressure 84 mm[Hg] 84 mm[Hg] [facility] ([facility] Systolic blood pressure 140 mm[Hg] 140 mm[Hg] [facility] Redig body weight 120 [lb_av] 120 [lb_av] [facility] T ([facility]) Oxygen saturation in Arterial blood by Pulse oximetry 99 % 99 % [facility] ([facility] Body temperature 98.6 [degF] 98.6 [degF] [facility] ([facility]) Respiratory rate 20 /min 20 /min [facility] ( [facility] Heart rate 112 /min 112 /min [facility] ([facility] Body height 64 [in_i] 64 [in_i] [facility] ([facility] 5'4" Diastolic blood pressure 88 mm[Hg] 88 mm[Hg] [facility] ([facility]) Systolic blood pressure 132 mm[Hg] 132 mm[Hg] M EDENT ([facility]) Redig body weight 120 [lb_av] 120 [lb_av] MED[facility] T ([facility]) Oxygen saturation in Arterial blood by Pulse oximetry 98 % 98 % [facility] ([facility] Body temperature 98.9 [degF] 98.9 [degF] [facility] ([facility]) Respiratory rate 18 /min 18 /min [facility] ( [facility] Heart rate 96 /min 96 /min [facility] ([facility] Body mass index (BMI) [Ratio] 34.8 kg/m2 34.8 k g/m2 [facility] ([facility] Body weight 202.50 [lb_av] 202.50 [lb_av] MED[facility] T ([facility] Body height 64 [in_i] 64 [in_i] [facility] ([facility]) 5'4" Diastolic blood pressure 76 mm[Hg] 76 mm[Hg] [facility] ([facility]) Systolic blood pressure 132 mm[Hg] 132 mm[Hg] M EDENT ([facility]) Body mass index (BMI) [Ratio] 34.33 kg/m2 Overweight 34.33 kg/m2 [facility] ([facility]) Diastolic blood pressure 72 mm[Hg] 72 mm[Hg] [facility] ([facility]) Systolic blood pressure 104 mm[Hg] 104 mm[Hg] N extGen ([facility]) Body weight 90.718 kg 90.718 kg [facility] ([facility] Body height 162.56 cm 162.56 cm [facility] ([facility] Respiratory rate 20 /min 20 /min [facility] ( [facility] Heart rate 59 /min 59 /min [facility] ([facility] Body mass index (BMI) [Ratio] 34.5 kg/m2 34.5 k g/m2 [facility] ([facility] Body weight 201.12 [lb_av] 201.12 [lb_av] MED[facility] T ([facility] Body height 64 [in_i] 64 [in_i] [facility] ([facility]) 5'4" Diastolic blood pressure 80 mm[Hg] 80 mm[Hg] [facility] ([facility]) Systolic blood pressure 137 mm[Hg] 137 mm[Hg] M EDENT ([facility]) Redig body weight 120 [lb_av] 120 [lb_av] MED[facility] T ([facility]) Oxygen saturation in Arterial blood by Pulse oximetry 100 % 100 % [facility] ([facility] Body temperature 98.3 [degF] 98.3 [degF] [facility] ([facility] Body mass index (BMI) [Ratio] 34.84 kg/m2 Overweight 34.84 kg/m2 [facility] ([facility]) Diastolic blood pressure 80 mm[Hg] 80 mm[Hg] [facility] ([facility]) Systolic blood pressure 142 mm[Hg] 142 mm[Hg] N [facility] ([facility] Body weight 92.079 kg 92.079 kg [facility] ([facility] Body height 162.56 cm 162.56 [facility] Oxygen saturation in Arterial blood by Pulse oximetry 92 % 92 % [facility] ([facility] Body temperature 99.0 [degF] 99.0 [degF] [facility] ([facility]) Respiratory rate 20 /min 20 /min [facility] ( [facility] Heart rate 102 /min 102 /min [facility] ([facility] Body mass index (BMI) [Ratio] 33.0 kg/m2 33.0 k g/m2 [facility] ([facility] Body weight 192.38 [lb_av] 192.38 [lb_av] MED[facility] T ([facility]) Body height 64 [in_i] 64 [in_i] [facility] 5'4" Diastolic blood pressure 78 mm[Hg] 78 mm[Hg] [facility] ([facility]) Systolic blood pressure 134 mm[Hg] 134 mm[Hg] M EDENT ([facility]) Body height 64 [in_i] 64 [in_i] JA[facility] ([facility]) Body height 64 [in_i] 64 [in_i] [facility] ([facility]) Body height 64 [in_i] 64 [in_i] [facility] ([facility]) Body height 64 [in_i] 64 [in_i] [facility] ([facility]) Body height 64 [in_i] 64 [in_i] [facility] ([facility]) Body mass index (BMI) [Ratio] 31.41 kg/m2 Overweight 31.41 kg/m2 [facility] ([facility]) Diastolic blood pressure 74 mm[Hg] 74 mm[Hg] [facility] ([facility]) Systolic blood pressure 128 mm[Hg] 128 mm[Hg] N extGen ([facility]) Body weight 83.007 kg 83.007 kg [facility] ([facility]) Body height 162.56 cm 162.56 cm [facility] ([facility]) Oxygen saturation in Arterial blood by Pulse oximetry 97 % 97 % [facility] ([facility]) Body temperature 98.9 [degF] 98.9 [degF] [facility] ([facility]) Respiratory rate 18 /min 18 /min [facility] ( [facility] Heart rate 76 /min 76 /min [facility] ([facility]) Body mass index (BMI) [Ratio] 31.4 kg/m2 31.4 k g/m2 [facility] ([facility] Body weight 183.00 [lb_av] 183.00 [lb_av] MED[facility] T ([facility] Body height 64 [in_i] 64 [in_i] [facility] ([facility] 5'4" Diastolic blood pressure 84 mm[Hg] 84 mm[Hg] [facility] ([facility]) Systolic blood pressure 128 mm[Hg] 128 mm[Hg] M [facility] ([facility]) Systolic blood pressure 129 mm[Hg] 129 mm[Hg] A THE[facility] ([facility]) Body height 64 [in_i] 64 [in_i] [facility] ([facility]) Diastolic blood pressure 81 mm[Hg] 81 mm[Hg] [facility] ([facility]) Systolic blood pressure 129 mm[Hg] 129 mm[Hg] A [facility] ([facility]) Body height 64 [in_i] 64 [in_i] [facility] ([facility]) Diastolic blood pressure 81 mm[Hg] 81 mm[Hg] [facility] ([facility]) Systolic blood pressure 129 mm[Hg] 129 mm[Hg] A THE[facility] ([facility]) Body height 64 [in_i] 64 [in_i] [facility] ([facility]) Diastolic blood pressure 81 mm[Hg] 81 mm[Hg] [facility] ([facility]) Systolic blood pressure 129 mm[Hg] 129 mm[Hg] A [facility] ([facility]) Body height 64 [in_i] 64 [in_i] [facility] ([facility]) Diastolic blood pressure 81 mm[Hg] 81 mm[Hg] [facility] ([facility]) Systolic blood pressure 129 mm[Hg] 129 mm[Hg] A THE[facility] ([facility]) Body height 64 [in_i] 64 [in_i] [facility] ([facility]) Diastolic blood pressure 81 mm[Hg] 81 mm[Hg] [facility] ([facility]) Systolic blood pressure 129 mm[Hg] 129 mm[Hg] A [facility] ([facility]) Body height 64 [in_i] 64 [in_i] [facility] ([facility]) Diastolic blood pressure 81 mm[Hg] 81 mm[Hg] [facility] ([facility]) Systolic blood pressure 129 mm[Hg] 129 mm[Hg] A THE[facility] ([facility]) Body height 64 [in_i] 64 [in_i] [facility] ([facility]) Diastolic blood pressure 81 mm[Hg] 81 mm[Hg] [facility] ([facility]) Systolic blood pressure 129 mm[Hg] 129 mm[Hg] A THE[facility] ([facility]) Body height 64 [in_i] 64 [in_i] [facility] ([facility]) Diastolic blood pressure 81 mm[Hg] 81 mm[Hg] [facility] ([facility]) Body mass index (BMI) [Ratio] 30.21 kg/m2 Overweight 30.21 kg/m2 [facility] ([facility]) Diastolic blood pressure 58 mm[Hg] 58 mm[Hg] [facility] ([facility]) Systolic blood pressure 98 mm[Hg] 98 mm[Hg] N extGen ([facility]) Body weight 79.832 kg 79.832 kg [facility] Body height 162.56 cm 162.56 cm [facility] Oxygen saturation in Arterial blood by Pulse oximetry 99 % 99 % [facility] ([facility]) Body temperature 99.1 [degF] 99.1 [degF] [facility] ([facility]) Respiratory rate 18 /min 18 /min [facility] ( [facility] Heart rate 65 /min 65 /min [facility] ([facility]) Body mass index (BMI) [Ratio] 30.7 kg/m2 30.7 k g/m2 [facility] ([facility] Body weight 179.12 [lb_av] 179.12 [lb_av] MED[facility] T ([facility]) Body height 64 [in_i] 64 [in_i] [facility] ([facility]) 5'4" Diastolic blood pressure 84 mm[Hg] 84 mm[Hg] [facility] ([facility]) Systolic blood pressure 128 mm[Hg] 128 mm[Hg] M [facility] ([facility]) Systolic blood pressure 140 mm[Hg] 140 mm[Hg] A THE[facility] ([facility]) Body height 64 [in_i] 64 [in_i] [facility] ([facility]) Diastolic blood pressure 80 mm[Hg] 80 mm[Hg] [facility] ([facility]) Systolic blood pressure 140 mm[Hg] 140 mm[Hg] A [facility] ([facility]) Body height 64 [in_i] 64 [in_i] [facility] ([facility]) Diastolic blood pressure 80 mm[Hg] 80 mm[Hg] [facility] ([facility]) Body height 64 [in_i] 64 [in_i] [facility] ([facility]) Diastolic blood pressure 80 mm[Hg] 80 mm[Hg] [facility] ([facility]) Systolic blood pressure 140 mm[Hg] 140 mm[Hg] A [facility] ([facility]) Body height 64 [in_i] 64 [in_i] [facility] ([facility]) Diastolic blood pressure 80 mm[Hg] 80 mm[Hg] [facility] ([facility]) Systolic blood pressure 140 mm[Hg] 140 mm[Hg] A [facility] ([facility]) Body height 64 [in_i] 64 [in_i] [facility] ([facility]) Diastolic blood pressure 80 mm[Hg] 80 mm[Hg] [facility] ([facility]) Systolic blood pressure 140 mm[Hg] 140 mm[Hg] A [facility] ([facility]) Systolic blood pressure 140 mm[Hg] 140 mm[Hg] A [facility] ([facility]) Body height 64 [in_i] 64 [in_i] [facility] ([facility]) Diastolic blood pressure 80 mm[Hg] 80 mm[Hg] [facility] ([facility]) Diastolic blood pressure 80 mm[Hg] 80 mm[Hg] [facility] ([facility]) Systolic blood pressure 140 mm[Hg] 140 mm[Hg] A [facility] ([facility]) Body height 64 [in_i] 64 [in_i] [facility] ([facility]) Diastolic blood pressure 80 mm[Hg] 80 mm[Hg] [facility] ([facility]) Systolic blood pressure 140 mm[Hg] 140 mm[Hg] A [facility] ([facility]) Body height 64 [in_i] 64 [in_i] [facility] ([facility]) Systolic blood pressure 140 mm[Hg] 140 mm[Hg] A THE[facility] ([facility]) Body height 64 [in_i] 64 [in_i] [facility] ([facility]) Diastolic blood pressure 80 mm[Hg] 80 mm[Hg] [facility] ([facility] Patient Treatment Plan of Care Planned Activity Planned Date Details Description Data Source (s) Orencia ClickJect 125 mg/mL subcutaneous auto-injector 06/11/2020 12:00:00 AM EST [facility] ([facility]) Methotrexate 2.5 MG Oral Tablet 05/22/2020 12:00:00 AM EST [facility] ([facility]) Methotrexate 2.5 MG Oral Tablet 05/22/2020 12:00:00 AM EST [facility] ([facility]) cevimeline 30 MG Oral Capsule 05/18/2020 12:00:00 AM EST [facility] ([facility]) Leucovorin 5 MG Oral Tablet 05/10/2020 12:00:00 AM EST [facility] ([facility]) Orencia ClickJect 125 mg/mL subcutaneous auto-injector 04/23/2020 12:00:00 AM EST [facility] ([facility]) Prednisone 5 MG Oral Tablet 02/28/2020 12:00:00 AM EDT [facility] ([facility]) cevimeline 30 MG Oral Capsule 02/24/2020 12:00:00 AM EDT [facility] ([facility]) Cyclobenzaprine hydrochloride 10 MG Oral Tablet 02/20/2020 12:00:00 AM EDT [facility] ([facility]) 0.9 ML tocilizumab 180 MG/ML Prefilled Syringe [Actemr a] 02/20/2020 12:00:00 AM EDT [facility] ([facility]) Leucovorin 5 MG Oral Tablet 02/20/2020 12:00:00 AM EDT [facility] ([facility]) Methotrexate 2.5 MG Oral Tablet 01/26/2020 12:00:00 AM EDT [facility] ([facility]) 0.9 ML tocilizumab 180 MG/ML Prefilled Syringe [Actemr a] 12/01/2019 12:00:00 AM EDT [facility] ([facility]) Prednisone 5 MG Oral Tablet 11/29/2019 12:00:00 AM EDT [facility] ([facility]) Prednisone 5 MG Oral Tablet 10/26/2019 12:00:00 AM EDT [facility] ([facility]) cevimeline 30 MG Oral Capsule 09/20/2019 12:00:00 AM EDT [facility] ([facility]) Leucovorin 5 MG Oral Tablet 09/02/2019 12:00:00 AM EDT [facility] ([facility]) Methotrexate 2.5 MG Oral Tablet 08/08/2019 12:00:00 AM EDT [facility] ([facility]) Cyclobenzaprine hydrochloride 10 MG Oral Tablet 07/12/2019 12:00:00 AM EST [facility] ([facility]) 0.9 ML tocilizumab 180 MG/ML Prefilled Syringe [Actemr a] 06/14/2019 12:00:00 AM EST [facility] ([facility]) Leucovorin 5 MG Oral Tablet 06/06/2019 12:00:00 AM EST [facility] ([facility]) gabapentin 300 MG Oral Capsule 05/11/2019 12:00:00 AM EST [facility] ([facility]) Nystatin [id number] UNT/ML Oral Suspension 04/05/2019 12:00:00 AM EST [facility] ([facility]) Methotrexate 2.5 MG Oral Tablet 04/05/2019 12:00:00 AM EST [facility] ([facility]) Cyclobenzaprine hydrochloride 10 MG Oral Tablet 04/05/2019 12:00:00 AM EST [facility] ([facility]) Leucovorin 5 MG Oral Tablet 03/16/2019 12:00:00 AM EDT [facility] ([facility]) cevimeline 30 MG Oral Capsule 03/14/2019 12:00:00 AM EDT [facility] ([facility]) Oxycodone Hydrochloride 5 MG Oral Tablet 01/04/2019 12:00:00 AM EDT [facility] ([facility]) Oxycodone Hydrochloride 5 MG Oral Tablet 01/04/2019 12:00:00 AM EDT [facility] ([facility]) Oxycodone Hydrochloride 5 MG Oral Tablet 01/04/2019 12:00:00 AM EDT [facility] ([facility]) Oxycodone Hydrochloride 5 MG Oral Tablet 01/04/2019 12:00:00 AM EDT [facility] ([facility]) Oxycodone Hydrochloride 5 MG Oral Tablet 01/04/2019 12:00:00 AM EDT [facility] ([facility]) Oxycodone Hydrochloride 5 MG Oral Tablet 01/04/2019 12:00:00 AM EDT [facility] ([facility]) Oxycodone Hydrochloride 5 MG Oral Tablet 01/04/2019 12:00:00 AM EDT [facility] ([facility]) Oxycodone Hydrochloride 5 MG Oral Tablet 01/04/2019 12:00:00 AM EDT [facility] ([facility]) 0.9 ML tocilizumab 180 MG/ML Prefilled Syringe [Actemr a] 12/09/2018 12:00:00 AM EDT [facility] ([facility]) rifaximin 550 MG Oral Tablet [XIFAXAN] [facility] ([facility]) Sulfamethoxazole 800 MG / Trimethoprim 160 MG Oral Tablet [facility] ([facility]) Prednisone 20 MG Oral Tablet [facility] ([facility]) Prednisone 10 MG Oral Tablet [facility] ([facility]) Metformin hydrochloride 1000 MG Oral Tablet [facility] ([facility]) gabapentin 300 MG Oral Capsule [facility] ([facility]) Doxycycline Monohydrate 100 MG Oral Tablet [facility] ([facility]) Dicyclomine Hydrochloride 20 MG Oral Tablet [facility] ([facility]) Dicyclomine Hydrochloride 10 MG Oral Capsule [facility] ([facility]) Diclofenac Sodium 75 MG Delayed Release Oral Tablet [facility] ([facility]) Diclofenac Sodium 25 MG Delayed Release Oral Tablet [facility] ([facility]) Cyclobenzaprine hydrochloride 10 MG Oral Tablet [facility] ([facility]) Clindamycin 300 MG Oral Capsule [facility] ([facility]) Cefuroxime 500 MG Oral Tablet [facility] ([facility]) Carisoprodol 350 MG Oral Tablet [facility] ([facility]) Amitriptyline Hydrochloride 25 MG Oral Tablet [facility] ([facility]) Actemra 1 injection every week [facility] ([facility]) Prednisone 20 MG Oral Tablet [facility] ([facility]) gabapentin 300 MG Oral Capsule [facility] ([facility]) Doxycycline Monohydrate 100 MG Oral Tablet [facility] ([facility]) Prednisone 20 MG Oral Tablet [facility] ([facility]) gabapentin 300 MG Oral Capsule [facility] ([facility]) Doxycycline Monohydrate 100 MG Oral Tablet [facility] ([facility]) Prednisone 20 MG Oral Tablet [facility] ([facility]) gabapentin 300 MG Oral Capsule [facility] ([facility]) Doxycycline Monohydrate 100 MG Oral Tablet [facility] ([facility]) Prednisone 20 MG Oral Tablet [facility] ([facility]) gabapentin 300 MG Oral Capsule [facility] ([facility]) Doxycycline Monohydrate 100 MG Oral Tablet [facility] ([facility]) Prednisone 5 MG Oral Tablet [facility] ([facility]) Prednisone 20 MG Oral Tablet [facility] ([facility]) gabapentin 300 MG Oral Capsule [facility] ([facility]) Fluzone Quad (PF) 60 mcg (15 mcg x 4)/0.5 mL IM syringe [facility] ([facility]) Doxycycline Monohydrate 100 MG Oral Tablet [facility] ([facility]) Prednisone 5 MG Oral Tablet [facility] ([facility]) Prednisone 20 MG Oral Tablet [facility] ([facility]) gabapentin 300 MG Oral Capsule [facility] ([facility]) Fluzone Quad (PF) 60 mcg (15 mcg x 4)/0.5 mL IM syringe [facility] ([facility]) Doxycycline Monohydrate 100 MG Oral Tablet [facility] ([facility]) Prednisone 5 MG Oral Tablet [facility] ([facility]) Prednisone 20 MG Oral Tablet [facility] ([facility]) Potassium Chloride 10 MEQ Extended Release Oral Tablet [facility] ([facility]) gabapentin 300 MG Oral Capsule [facility] ([facility]) Fluzone Quad (PF) 60 mcg (15 mcg x 4)/0.5 mL IM syringe [facility] ([facility]) Doxycycline Monohydrate 100 MG Oral Tablet [facility] ([facility]) Hydrochlorothiazide 12.5 MG Oral Tablet [facility] ([facility]) 24 HR venlafaxine 150 MG Extended Release Oral Capsule [Effexor] [facility] ([facility]) Colesevelam hydrochloride 625 MG Oral Tablet [facility] ([facility])
[2020-07-11] MEDS ORDERED: NS 1,000 ML IV ONE (19:15)
[2020-07-11] MEDS ORDERED: ACETAMINOPHEN TAB 650MG DOSE (2X325MG) PO ONE ×2 (19:15→22:15)
[2020-07-11 19:48] LABS: BASO # 0.1 10^3/uL (0.0-0.2); BASO % 0.3 % (0.0-1.0); HEMATOCRIT 37.7 % (36.0-47.0); HEMOGLOBIN 12.6 g/dl (12.0-15.5); LYMPH # 1.5 10^3/uL (1.5-5.0); LYMPH % 6.7 % (24.0-44.0); MEAN CORPUSCULAR HEMOGLOBIN 31.7 pg (27.0-33.0); MEAN CORPUSCULAR HGB CONC 33.4 g/dl (32.0-36.5); MONO # 0.8 10^3/uL (0.0-0.8); MONO % 3.6 % (0.0-5.0); NEUTROPHILS # 19.6 10^3/uL (1.5-8.5); NEUTROPHILS % 88.6 % (36.0-66.0); PLATELET COUNT, AUTOMATED 194 10^3/uL (150-450); RED BLOOD COUNT 3.97 10^6/uL (4.00-5.40); WHITE BLOOD COUNT 22.2 10^3/uL (4.0-10.0)
[2020-07-11] MEDS ORDERED: NS 1,690 ML in IV 1 EA IV ONE (20:15)
[2020-07-11] MEDS ORDERED: LevoFLOXacin IV 750 MG in IV 1 EA IV ONE (20:15)
--- OUTSIDE RECORDS SUMMARY | 2020-07-11 20:30 | CCD ---
Author Author [facility] Organization [facility] Address Unknown Phone Unavailable Care Team Providers Care Candy Cutter Machine Name Role Phone Ryan NEWELL MD Unavailable [...] SETTER, Ryan PURVIS MD Unavailable Unavailable SETTER, Rayn PURVIS MD Unavailable Unavailable SETTER, Ryan PURVIS MD Unavailable Unavailable SETTER, Ryan PURVIS MD Unavailable Unavailable Wall DIRECTOR SMB SALES, A Hyun Unavailable [phone] Wall DIRECTOR SMB SALES, A Hyun Unavailable [phone] Wall DIRECTOR [employer] SAL[employer], A Hyun Unavailable [phone] Wall DIRECTOR [employer] SAL[employer], A Hyun Unavailable [phone] Wall DIRECTOR [employer] SAL[employer], A Hyun Unavailable [phone] Sunita Sen MD Unavailable Unavailable Sunita Sen [...] Foy MD Unavailable Unavailable Jumalon, M Wendi DIRECTOR SMB SALES Unavailable Unavailable Jumalon, M Wendi DIRECTOR SMB SALES Unavailable Unavailable Jumalon, M Wendi DIRECTOR SMB SALES Unavailable Unavailable Jumalon, M Wendi DIRECTOR SMB SALES Unavailable Unavailable Jumalon, M Wendi DIRECTOR SMB SALES Unavailable Unavailable Jumalon, M Wendi DIRECTOR SMB SALES Unavailable Unavailable Jumalon, M Wendi DIRECTOR SMB SALES Unavailable Unavailable Jumalon, M Wendi DIRECTOR SMB SALES Unavailable Unavailable Jumalon, M Wendi DIRECTOR SMB SALES Unavailable Unavailable Jumalon, M Wendi DIRECTOR SMB SALES Unavailable Unavailable Jumalon, M Wendi DIRECTOR SMB SALES Unavailable Unavailable Jumalon, M Wendi DIRECTOR SMB SALES Unavailable Unavailable Jumalon, M Wendi DIRECTOR SMB SALES Unavailable Unavailable Jumalon, M Wendi DIRECTOR SMB SALES Unavailable Unavailable Jumalon, M Wendi DIRECTOR SMB SALES Unavailable Unavailable Jumalon, M Wendi DIRECTOR SMB SALES Unavailable Unavailable Jumalon, M Wendi DIRECTOR SMB SALES Unavailable Unavailable Jumalon, M Wendi DIRECTOR SMB SALES Unavailable Unavailable Jumalon, M Wendi DIRECTOR SMB SALES Unavailable Unavailable Jumalon, M Wendi DIRECTOR SMB SALES Unavailable Unavailable Jumalon, M Wendi DIRECTOR SMB SALES Unavailable Unavailable Jumalon, M Wendi DIRECTOR SMB SALES Unavailable Unavailable Jumalon, M Wendi DIRECTOR SMB SALES Unavailable Unavailable Jumalon, M Wendi DIRECTOR SMB SALES Unavailable Unavailable Jumalon, M Wendi DIRECTOR SMB SALES Unavailable Unavailable Jumalon, M Wendi DIRECTOR SMB SALES Unavailable Unavailable Jumalon, M Wendi DIRECTOR SMB SALES Unavailable Unavailable Jumalon, M Wendi DIRECTOR SMB SALES Unavailable Unavailable Berlin, Lexa PA Unavailable Unavailable Berlin, Lexa PA Unavailable Unavailable Berlin, Lexa PA Unavailable Unavailable Berlin, Lexa PA Unavailable Unavailable Berlin, Lexa PA Unavailable Unavailable Berlin, Lexa PA Unavailable Unavailable Berlin, Lexa PA Unavailable Unavailable Beriln, Lexa PA Unavailable Unavailable Berlin, Lexa PA [...] Unavailable Unavailable Berlin, Lexa PA Unavailable Unavailable Belrin, Lexa PA Unavailable Unavailable Berlin, Lexa PA Unavailable Unavailable Berlin, Lexa PA Unavailable Unavailable Berlin, Lexa PA Unavailable Unavailable Berlin, Lexa PA Unavailable Unavailable Berlin, Lexa PA Unavailable Unavailable Berlin, Lexa PA Unavailable Unavailable Berlin, Lexa PA Unavailable Unavailable Berlin, Lexa PA Unavailable Unavailable Berlni, Lexa PA Unavailable Unavailable Berlin, Lexa PA Unavailable Unavailable Berlin, Lexa PA Unavailable Unavailable Berlin, Lexa PA Unavailable Unavailable Berlin, Lexa PA Unavailable Unavailable Berlin, Lexa PA Unavailable Unavailable Berlin, Lexa PA Unavailable Unavailable Berlin, Lexa PA Unavailable Unavailable Berlin, Lexa PA Unavailable Unavailable Berlin, Lexa PA Unavailable Unavailable MEDENT_806, NA Unavailable Unavailable Tucker, Esau Norma RPA Unavailable Unavailable Tucker, Onia Norma RPA Unavailable Unavailable Tucker, Onia Norma RPA Unavailable Unavailable Tucker, Onia Norma RPA Unavailable Unavailable Tucker, Onia Norma RPA Unavailable Unavailable Tucker, Esau Norma RPA Unavailable Unavailable Tucker, Esau Norma RPA Unavailable Unavailable Tucker, Onia Norma RPA Unavailable Unavailable Tucker, Onia Norma RPA Unavailable Unavailable Tucker, Esau Norma RPA Unavailable Unavailable Tucker, Onia Norma RPA Unavailable Unavailable Tucker, Onia Norma RPA Unavailable Unavailable Tucker, Onia Norma RPA Unavailable Unavailable Tucker, Esau Norma RPA Unavailable Unavailable Tucker, Onia Norma RPA Unavailable Unavailable Tucker, Onia Norma RPA Unavailable Unavailable Tucker, Onia Norma RPA Unavailable Unavailable Tucker, Esau Norma RPA Unavailable Unavailable Tucker, Esau Norma RPA Unavailable Unavailable Tucker, Onia Norma RPA Unavailable Unavailable Tucker, Esau Norma [...] GERARDO DO Unavailable Unavailable Jumalon, M Wendi DIRECTOR SMB SALES Unavailable Unavailable Jumalon, M Wendi DIRECTOR SMB SALES Unavailable Unavailable Jumalon, M Wendi DIRECTOR SMB SALES Unavailable Unavailable Jumalon, M Wendi DIRECTOR SMB SALES Unavailable Unavailable Jumalon, M Wendi DIRECTOR SMB SALES Unavailable Unavailable Jumalon, M Wendi DIRECTOR SMB SALES Unavailable Unavailable Jumalon, M Wendi DIRECTOR SMB SALES Unavailable Unavailable Jumalon, M Wendi DIRECTOR SMB SALES Unavailable Unavailable Jumalon, M Wendi DIRECTOR SMB SALES Unavailable Unavailable Jumalon, M Wendi DIRECTOR SMB SALES Unavailable Unavailable Jumalon, M Wendi DIRECTOR SMB SALES Unavailable Unavailable Jumalon, M Wendi DIRECTOR SMB SALES Unavailable Unavailable Jumalon, M Wendi DIRECTOR SMB SALES Unavailable Unavailable Jumalon, M Wendi DIRECTOR SMB SALES Unavailable Unavailable Jumalon, M Wendi DIRECTOR SMB SALES Unavailable Unavailable Jumalon, M Wendi DIRECTOR SMB SALES Unavailable Unavailable Jumalon, M Wendi DIRECTOR SMB SALES Unavailable Unavailable Jumalon, M Wendi DIRECTOR SMB SALES Unavailable Unavailable Jumalon, M Wendi DIRECTOR SMB SALES Unavailable Unavailable Jumalon, M Wendi DIRECTOR SMB SALES Unavailable Unavailable Jumalon, M Wendi DIRECTOR SMB SALES Unavailable Unavailable Jumalon, M Wendi DIRECTOR SMB SALES Unavailable Unavailable Jumalon, M Wendi DIRECTOR SMB SALES Unavailable Unavailable Jumalon, M Wendi DIRECTOR SMB SALES Unavailable Unavailable Jumalon, M Wendi DIRECTOR SMB SALES Unavailable Unavailable Jumalon, M Wendi DIRECTOR SMB SALES Unavailable Unavailable Jumalon, M Wendi DIRECTOR SMB SALES Unavailable Unavailable Lucho Amador MD Unavailable Unavailable [...] Unavailable Unavailable MARK-CAROLEE, GERARDO DO Unavailable Unavailable AMRK-CAROLEE, GERARDO DO Unavailable Unavailable MARK-CAROLEE, GERARDO DO [...] Unavailable Unavailable MARK-CAROLEE, GERARDO DO Unavailable Unavailable MARK-ACROLEE, GERARDO DO Unavailable Unavailable MARK-CAROLEE, GERARDO DO Unavailable Unavailable MARK-CAROLEE, GERARDO DO Unavailable Unavailable MARK-CAROLEE, GERARDO DO Unavailable Unavailable MARK-CAROLEE, GERARDO DO Unavailable Unavailable MARK-CAROLEE, GERARDO DO Unavailable Unavailable MARK-CAROLEE, GERARDO DO Unavailable Unavailable MARK-CAROLEE, GERARDO DO Unavailable Unavailable Pikarsky, Enrrique VIDEO EDITING INTERNSHIP Unavailable Unavailable Pikarsky, Enrrique VIDEO EDITING INTERNSHIP Unavailable Unavailable Pikarsky, Enrrique VIDEO EDITING INTERNSHIP Unavailable Unavailable Pikarsky, Enrrique VIDEO EDITING INTERNSHIP Unavailable Unavailable Pikarsky, Enrrique VIDEO EDITING INTERNSHIP Unavailable Unavailable Pikarsky, Enrrique VIDEO EDITING INTERNSHIP Unavailable Unavailable Pikarsky, Enrrique VIDEO EDITING INTERNSHIP Unavailable Unavailable Pikarsky, Enrrique VIDEO EDITING INTERNSHIP Unavailable Unavailable Pikarsky, Enrrique VIDEO EDITING INTERNSHIP Unavailable Unavailable Pikarsky, Enrrique VIDEO EDITING INTERNSHIP Unavailable Unavailable Pikarsky, Enrrique VIDEO EDITING INTERNSHIP Unavailable Unavailable Pikarsky, Enrrique VIDEO EDITING INTERNSHIP Unavailable Unavailable Pikarsky, Enrrique VIDEO EDITING INTERNSHIP Unavailable Unavailable Pikarsky, Enrrique VIDEO EDITING INTERNSHIP Unavailable Unavailable Pikarsky, Enrrique VIDEO EDITING INTERNSHIP Unavailable Unavailable Pikarsky, Enrrique VIDEO EDITING INTERNSHIP Unavailable Unavailable Pikarsky, Enrrique VIDEO EDITING INTERNSHIP Unavailable Unavailable Pikarsky, Enrrique VIDEO EDITING INTERNSHIP Unavailable Unavailable Pikarsky, Enrrique VIDEO EDITING INTERNSHIP Unavailable Unavailable Pikarsky, Enrrique VIDEO EDITING INTERNSHIP Unavailable Unavailable Pikarsky, Enrrique VIDEO EDITING INTERNSHIP Unavailable Unavailable Pikarsky, Enrrique VIDEO EDITING INTERNSHIP Unavailable Unavailable Pikarsky, Enrrique VIDEO EDITING INTERNSHIP Unavailable Unavailable Pikarsky, Enrrique VIDEO EDITING INTERNSHIP Unavailable Unavailable RODRÍGUEZ (PATRICIA), Josefa STERN MD [...] (PATRICIA), Josefa STERN MD Unavailable Unavailab le RODRGÍUEZ (PATRICIA), Josefa STERN MD Unavailable Unavailab le [...] Josefa STERN MD Unavailable Unavailab le RODRÍGUEZ (PTARICIA), Josefa STERN MD Unavailable Unavailab le RODRÍGUEZ (PATRICIA), Josefa STERN MD Unavailable Unavailab le RODRÍGUEZ (PATRICIA), Josefa STERN MD Unavailable Unavailab le RODRÍGUEZ (PTARICIA), Josefa STERN MD Unavailable Unavailab le RODRÍGUEZ [...] is protected by Article 27-F of the [facility] Public Health law. If you continue you may have access to information: Regarding HIV / AIDS; Provided by facilities licensed or operated by the [facility] Office of Mental Health; or Provided by the [facility] Office for People With Developmental Disabilities. If such information is present, then the following [facility] mandated warning applies: This information has [...] law may result in a fine or detention sentence or both. A general authorization for the release of medical or other information is NOT sufficient authorization for further disc losure. Allergies and Adverse Reactions Type Description Substance Reaction Status Data Source(s ) DRUG INGREDI AMOXICILLIN Amoxicillin [facility] Family History Family Member Name Family Member Gender Family Member Status Date o f Status Description Data Source(s) Unknown Female Problem (finding) 10/01/2011 12:00:00 AM EDT [facility] ([facility]) Unknown Male Problem MEDENT ([facility] ) Unknown Unknown Problem MEDENT ([facility]) Unknown Female Problem MEDENT ([facility]) Encounters Encounter Providers Location Date Indications Data Source(s ) Outpatient Attender: GERARDO OGLESBY DO [facility] 07/11/2020 03:00:00 PM EST MEDENT ([facility]) Wendi Dolan NP: [id number], [place] [address], Ph. Attender: Wendi Dolan [facility] - [facility] - Main Office 06/21/2020 12:00:00 AM EST THUE NA ([facility]) Attender: Hyun Angulo [facility] 01:34:00 PM EST - 06/11/2020 01:34:00 PM EST [facility] ([facility]) PHONE E/M BY PHYS 5-10 MIN Attender: [facility] 06/07/2020 01:51:00 PM EST - 06/07/2020 01:51:00 PM ES T Unspecified juvenile rheumatoid arthritis, multiple sitesOther detention (current) drug therapy [facility] ([facility]) Unspecified juvenile rheumatoid arthriti s, multiple sites Other detention (current) drug therapy Attender: Enrrique Jama NP [facility] 06/05/2020 02:30:00 PM EST - 06/05/2020 02:30:00 PM EST [facility] ( [facility]) Attender: Enrrique Jama NP [facility] 05/31/2020 09:44:00 AM EST - 05/31/2020 09:44:00 AM EST [facility] ( [facility]) Outpatient Attender: GERARDO OGLESBY [facility] 05/23/2020 02:30:00 PM EST MEDENT ([facility]) Attender: Enrrique Jama NP [facility] 05/22/2020 03:34:00 PM EST - 05/22/2020 03:34:00 PM EST [facility] ( [facility]) Outpatient Attender: GERARDO OGLESBY [facility] 05/21/2020 02:40:00 PM EST MEDENT ([facility]) Attender: Lucho Amador MD [facility] 05/18/2020 09:34:00 AM EST - 05/18/2020 09:34:00 AM EST [facility] ( [facility]) Attender: Enrrique Jama NP [facility] 05/10/2020 09:13:00 AM EST - 05/10/2020 09:13:00 AM EST [facility] ( [facility]) Outpatient Attender: Law Sen MD [facility] 05/07/2020 01:23:2 7 PM EST [facility] Attender: Enrrique Jama NP [facility] 05/03/2020 09:13:00 AM EST - 05/03/2020 09:13:00 AM EST [facility] ( [facility]) Attender: Enrrique Jama NP [facility] 04/25/2020 04:06:00 PM EST - 04/25/2020 04:06:00 PM EST [facility] ( [facility]) Attender: Enrrique Jama NP [facility] 04/23/2020 11:40:00 AM EST - 04/23/2020 11:40:00 AM EST Pain in jointOther long term acute care registered nurse (current) drug therapyUnspecified juvenile rheumatoid arthritis, multiple sites [facility] ([facility]) Pain in joint Other detention (current) drug therapy Unspecified juvenile rheumatoid arthriti s, multiple sites Attender: JARRED ARREGUIN MD ([facility]) 0 08:20:11 PM EST [facility] Attender: JARRED ARREGUIN MD ([place]) 0 08:20:11 PM EST [facility] Wendi Dolan, VIDEO EDITING INTERNSHIP: [address], [place] [address], Ph. Attender: Wendi Dolan [facility] - [facility] - [facility] 03/30/2020 12:00:00 AM EDT ATHJob MINER ([facility]) Wendi Dolan, VIDEO EDITING INTERNSHIP: [address], [place] [address], Ph. Attender: Wendi Dolan [facility] - [facility] - [facility] 03/30/2020 12:00:00 AM EDT ATHE NA ([facility]) Outpatient Attender: GERARDO OGLESBY DO [facility] 03/28/2020 11:20:00 AM EDT MEDENT ([facility]) Attender: JARRED ARREGUIN MD ([place]) 0 08:20:10 PM EDT [facility] Attender: JARRED ARREGUIN MD ([place]) 0 08:20:10 PM EDT [facility] Attender: JARRED ARREGUIN MD ([place]) 0 08:20:10 PM EDT [facility] Attender: Lucho Amador MD [facility] 02/28/2020 11:04:00 AM EDT - 02/28/2020 11:04:00 AM EDT [facility] ( [facility]) Attender: Lucho Amador MD [facility] 02/24/2020 03:55:00 PM EDT - 02/24/2020 03:55:00 PM EDT [facility] ( [facility]) OutpatientOFFICE/OUTPATIENT VISIT, EST Attender: Enrrique zhao NP [facility] 02/20/2020 11:40:00 AM EDT - 02/20/2020 11:40:00 AM ED T Pain in jointOther detention (current) drug therapyUnspecified juvenile rheumatoid arthritis, multiple sites [facility] ([facility]) Pain in joint Other long term acute care registered nurse (current) drug therapy Unspecified juvenile rheumatoid arthriti s, multiple sites Attender: Enrrique Jama NP [facility] 02/08/2020 01:46:00 PM EDT - 02/08/2020 01:46:00 PM EDT [facility] ( [facility]) Outpatient Attender: Law Sen MD BF-BF 01/30/2020 12:00:0 0 AM EDT [facility] Outpatient Attender: GERARDO OGLESBY DO [facility] 01/26/2020 02:30:00 PM EDT MEDENT ([facility]) OutpatientOFFICE/OUTPATIENT VISIT, EST Attender: Enrrique zhao NP [facility] 01/26/2020 11:00:00 AM EDT - 01/26/2020 11:00:00 AM ED T Sicca syndrome, unspecifiedOther long term acute care registered nurse (current) drug therapyUnspecified juvenile rheumatoid arthritis, [facility] Sicca syndrome, unspecified Other long term acute care registered nurse (current) drug therapy Unspecified juvenile rheumatoid arthriti s, multiple sites Wendi Dolan, VIDEO EDITING INTERNSHIP: [address], [place] [address], Ph. Attender: Wendi Dolan [facility] - [facility] - Main Office 01/23/2020 12:00:00 AM EDT ATHE KRISTOFER ([facility]) Wendi Dolan, VIDEO EDITING INTERNSHIP: [address], [place] [place] [address], Ph. Attender: Wendi Dolan [facility] 01/23/2020 12:00:00 AM EDT ATHE NA ([facility]) Wendi Dolan, VIDEO EDITING INTERNSHIP: [address], [place] [address], Ph. Attender: Wendi Dolan [facility] - [facility] 01/23/2020 12:00:00 AM EDT ATHE NA ([facility]) Outpatient Attender: HYUN NEWELL MD [id number] 01/05/2020 12:00:00 AM EDT [facility] Outpatient Referrer: HYUN NEWELL MD 01/05/2020 12:0 0:00 AM EDT Presence of right artificial shoulder joint [facility] Presence of right artificial shoulder venessa int Wendi Dolan, VIDEO EDITING INTERNSHIP: [address], [place] [address], Ph. Attender: Wendi Dolan [facility] - [facility] 12/28/2019 12:00:00 AM EDT ATHE NA ([facility]) Wendi Dolan, VIDEO EDITING INTERNSHIP: [address], [place] [address], Ph. Attender: Wendi Dolan [facility] 12/28/2019 12:00:00 AM EDT ATHE NA ([facility]) Wendi Dolan, VIDEO EDITING INTERNSHIP: [address], [place] [address], Ph. Attender: Wendi Dolan [facility] - [facility] 12/28/2019 12:00:00 AM EDT ATHE NA ([facility]) Wendi Jimenez Kanikasarmadmonty, VIDEO EDITING INTERNSHIP: [address], [place] [address], Ph. Attender: Wendi Dolan [facility] - [facility] 12/28/2019 12:00:00 AM EDT ATHE NA ([facility]) Outpatient Attender: Norma Ceballos RPA 12/21/2019 12:00:00 AM EDT [facility] Attender: JARRED ARREGUIN MD ([place]) 0 08:20:07 PM EDT [facility] Attender: JARRED ARREGUIN MD ([place]) 0 08:20:07 PM EDT [facility] Outpatient Attender: Lexa VELÁSQUEZ [facility] 12/19/2019 10:40:00 AM EDT MEDMIRELA ([facility]) Attender: JARRED ARREGUIN MD ([place]) 0 08:20:07 PM EDT [facility] Attender: Lucho Amador [facility] 12/01/2019 08:51:00 AM EDT - 12/01/2019 08:51:00 AM EDT [facility] ( [facility]) [facility]: [facility] 11/29/2019 04:42:00 PM EDT - 11/29/2019 04:42:00 PM EDT [facility] ( [facility]) Wendialejandro Dolan, VIDEO EDITING INTERNSHIP: [address], [place] [address], Ph. Attender: Wendi Dolan [facility] - [facility] - [facility] 11/29/2019 12:00:00 AM EDT ATHJob NA ([facility]) Wendi Sammyjaspreetlauri Dolan, VIDEO EDITING INTERNSHIP: [address], [place] [address], Ph. Attender: Wendialejandro Dolan [facility] - [facility] Office 11/29/2019 12:00:00 AM EDT ATHE NA ([facility]) Wendi Dolan, VIDEO EDITING INTERNSHIP: [address], [place] [address], Ph. Attender: Wendi Dolan [facility] - [facility] 11/29/2019 12:00:00 AM EDT ATHE NA ([facility]) Wendi Dolan, VIDEO EDITING INTERNSHIP: [address], [address], [place] [address], Ph. Attender: Wendi Dolan [facility]OR [facility] - [facility] 11/29/2019 12:00:00 AM EDT ATHE NA ([facility]) Wendi Dolan, VIDEO EDITING INTERNSHIP: [address], [place] [address], Ph. Attender: Wendi Dolan [facility] 11/29/2019 12:00:00 AM EDT ATHE NA ([facility]) Attender: Lucho Amador MD [facility] 11/22/2019 01:28:00 PM EDT - 11/22/2019 01:28:00 PM [facility] Outpatient Referrer: Wendi Darnellon DIRECTOR [employer] SAL[employer] 11/15/2019 08:39:0 0 AM EDT [facility] Outpatient Referrer: Wendi Kanikamalon DIRECTOR [employer] SAL[employer] 11/15/2019 08:39:0 0 AM EDT [facility] Outpatient Referrer: Wendi Boudreauxmalon DIRECTOR [employer] SAL[employer] 11/14/2019 03:18:0 0 PM EDT [facility] Outpatient Referrer: Wendi Kanikamalon DIRECTOR [employer] SAL[employer] 11/14/2019 01:31:0 0 PM EDT [facility] Outpatient Referrer: Wendi Darnellon DIRECTOR [employer] SAL[employer] 11/10/2019 09:22:0 0 AM EDT [facility] Outpatient Referrer: GERARDO OGLESBY DO 11/10/2019 09 :20:00 AM EDT [facility] OutpatientOFFICE/OUTPATIENT VISIT, EST Attender: Lucho espino MD [facility] 10/26/2019 02:40:00 PM EDT - 10/26/2019 02:40:00 PM ED T Diarrhea, unspecifiedOther detention (current) drug therapySicca syndrome, unspecifiedUnspecified juvenile rheumatoid arthritis, multiple sites [facility] ([facility]) Diarrhea, unspecified Other long term acute care registered nurse (current) drug therapy Sicca syndrome, unspecified Unspecified juvenile rheumatoid arthriti s, multiple sites Wendi Francolauri Dolan, VIDEO EDITING INTERNSHIP: [address], [place] [address], Ph. Attender: Wendi Dolan [facility] 10/25/2019 12:00:00 AM EDT JAIRO ([facility]) Wendi Dolan, V[employer] EDITING INTERNSHIP: [address], [place] [address], Ph. Attender: Wendi Dolan [facility] 10/25/2019 12:00:00 AM EDT JAIRO ([facility]) Wendi Dolan, V[employer] EDITING INTERNSHIP: [address], [place] [address], Ph. Attender: Wendi Dolan [facility] 10/25/2019 12:00:00 AM EDT JAIRO ([facility]) Wendi Dolan, V[employer] EDITING INTERNSHIP: [address], [place] [address], Ph. Attender: Wendi Dolan [facility] 10/25/2019 12:00:00 AM EDT JAIRO ([facility]) Wendi Jimenez Magdaleno, V[employer] EDITING INTERNSHIP: [address], [place] [address], Ph. Attender: Wendi Dolan DIRECTOR [employer] SAL[employer] [place] [facility] 10/25/2019 12:00:00 AM EDT JAIRO ([facility]) Wendi Dolan, [employer] INTER[employer]HIP: [address], [place] [address], Ph. Attender: Wendi Dolan DIRECTOR [employer] [place] - [facility] Office 10/25/2019 12:00:00 AM EDT JAIRO ([facility]) Outpatient Attender: Law Sen MD BF-BF 10/17/2019 12:00:0 0 AM EDT [facility] Wendi Dolan, VIDEO EDITING INTERNSHIP: [address], [place] [address], Ph. Attender: Wendi Dolan DIRECTOR [employer] [place] - [facility] Office 09/26/2019 12:00:00 AM EDT JAIRO ([facility]) Wendi Dolan, [employer] INTERNSHIP: [address], [place] [address], Ph. Attender: Wendi Dolan DIRECTOR [employer] [place] - [facility] Office 09/26/2019 12:00:00 AM EDT JAIRO ([facility]) Wendi Dolan, [employer] INTERNSHIP: [address], [place] [address], Ph. Attender: Wendi Dolan DIRECTOR [employer] [place] - [facility] Office 09/26/2019 12:00:00 AM EDT JAIRO ([facility]) Wendi Dolan, [employer] INTERNSHIP: [address], [place] [address], Ph. Attender: Wendi Dolan DIRECTOR [employer] [place] - [facility] Main Office 09/26/2019 12:00:00 AM EDT JAIRO ([facility]) Wendi Dolan, [employer] EDITING INTERNSHIP: [address], [place] [address], Ph. Attender: Wendi Dolan [facility] - [facility] Office 09/26/2019 12:00:00 AM EDT JAIRO ([facility]) Wendi Dolan, [employer] INTERNSHIP: [address], [place] [address], Ph. Attender: Wendi Dolan [facility] - [facility] Office 09/26/2019 12:00:00 AM EDT JAIRO ([facility]) Wendi Dolan, [employer] INTERNSHIP: [address], [place] [address], Ph. Attender: Wendi Dolan [facility] - [facility] Office 09/26/2019 12:00:00 AM EDT JAIRO ([facility]) Attender: Enrrique Jama NP [facility] 09/20/2019 11:14:00 AM EDT - 09/20/2019 11:14:00 AM EDT Marvin ( [facility]) Outpatient Attender: GERARDO OGLESBY DO [facility] 09/19/2019 11:00:00 AM EDT [facility] ([facility]) Attender: Enrrique Jama NP [facility] 09/02/2019 02:13:00 PM EDT - 09/02/2019 02:13:00 PM EDT Marvin ( [facility]) Outpatient Attender: KRISTOFER FLEMING_[id number] [facility] 08/19/2019 01:00:00 PM EDT MEDMIRELA ([facility]) Attender: Enrriuqe Jama NP [facility] 08/08/2019 11:16:00 AM EDT - 08/08/2019 11:16:00 AM EDT [facility] ( [facility]) Outpatient Referrer: GERARDO OGLESBY DO 07/26/2019 10 :44:00 AM EST [facility] Wendi Dolan, VIDEO EDITING INTERNSHIP: [address], [place] [address], Ph. Attender: Wendi [facility] 07/26/2019 12:00:00 AM EST ATHE NA ([facility]) Wendi Dolan, V[employer] EDITING INTERNSHIP: [address], [address], [place] [address], Ph. Attender: Wendi Dolan [facility]OR [facility] [place] 07/26/2019 12:00:00 AM EST ATHE NA ([facility]) Wendi Dolan, V[employer] EDITING INTERNSHIP: [address], [address], [place] [address], Ph. Attender: Wendi Dolan [facility]OR [facility] [place] 07/26/2019 12:00:00 AM EST ATHE NA ([facility]) Wendi Dolan, [employer] EDITING INTERNSHIP: [address], [place] [address], Ph. Attender: Wendi Dolan [facility]OR [facility] [place] [facility] 07/26/2019 12:00:00 AM EST ATHE NA ([facility]) Wendi Dolan, [employer] EDITING INTERNSHIP: [address], [place] [address], Ph. Attender: Wendi Dolan [facility]OR [facility] [place] [facility] 07/26/2019 12:00:00 AM EST ATHE NA ([facility]) Wendi Dolan, V[employer] EDITING INTERNSHIP: [address], [place] [address], Ph. Attender: Wendi Dolan [facility] 07/26/2019 12:00:00 AM EST ATHE NA ([facility]) Wendi Dolan, VIDEO EDITING INTERNSHIP: [address], [place] [address], Ph. Attender: Wendi Dolan [facility] 07/26/2019 12:00:00 AM EST ATHE NA ([facility]) Wendi Dolan, V[employer] EDITING INTERNSHIP: [address], [place] [address], Ph. Attender: Wendi Dolan [facility] 07/26/2019 12:00:00 AM EST ATHE NA ([facility]) OutpatientOFFICE/OUTPATIENT VISIT, EST Attender: Enrrique zhao NP [facility] 07/12/2019 04:00:00 PM EST - 07/12/2019 04:00:00 PM ES T Other long term acute care registered nurse (current) drug therapyOsteoarthritisFibromyalgiaSicca syndrome, unspecifiedUnspecified juvenile rheumatoid arthritis, multiple sites [facility] ([facility]) Other long term acute care registered nurse (current) drug therapy Osteoarthritis Fibromyalgia Sicca syndrome, unspecified Unspecified juvenile rheumatoid arthriti s, multiple sites Outpatient Attender: Law Sen MD BF-BF 07/11/2019 12:00:0 0 AM EST [facility] Attender: JARRED ARREGUIN MD ([place]) 0 08:20:01 PM EST [facility]ology [facility] Hepat[facility] Outpatient Attender: Lexa VELÁSQUEZ [facility] 06/20/2019 09:20:00 AM EST [facility] ([facility]) Outpatient Attender: Law Sen MD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 Supporting Document(s) EKG Laboratory test result [facility] ([facility]) ID Date Data Source [id number] 05/23/2020 03:40:00 PM EST [facility] ([facility]) Name Value Range Interpretation Code Description Data Moni rce(s) Supporting Document(s) Respiratory Panel Laboratory test result [facility] ([facility]) This respiratory PCR panel detects Influ nalini [...] - SARS-CoV-2 (COVID19) ID Date Data Source [id number] 05/23/2020 03:40:00 PM EST [facility] Name Value Range Interpretation Code Description Data Moni rce(s) Supporting Document(s) SARS-CoV-2 (COVID 19) [facility] This lab was ordered by [facility] a nd reported by [facility]. ID Date Data Source [id number] 05/21/2020 04:48:00 PM EST [facility] ([facility]) Name Value Range Interpretation Code Description Data Moni rce(s) Supporting Document(s) Inhouse Leukocytes Laboratory test result [facility] ([facility]) Inhouse Nitrite Laboratory test result [facility] ([facility]) Inhouse Protein Laboratory test result [facility] ([facility]) Inhouse Urobilinogen Laboratory test result [facility] ([facility]) Inhouse Specific [place] 1.007 [facility] ([facility]) Inhouse PH 7.0 [facility] ([facility]) Inhouse Hemoglobin Laboratory test result [facility] ([facility]) Inhouse Ketones Laboratory test result [facility] ([facility]) Inhouse Glucose Laboratory test result [facility] ([facility]) Inhouse Bilirubin Laboratory test result [facility] ([facility]) ID Date Data Source [id number] 05/21/2020 04:43:00 PM EST [facility] ([facility]) Name Value Range Interpretation Code Description Data Moni rce(s) Supporting Document(s) Bacteria identified in Urine by Culture Laboratory test result Normal (applies to non-numeric results) [facility] ([facility]) <content>FULL REPORT IN LAB NOTES (eCW a [...] FOR ESBL</content>
<content></content> ID Date Data Source [id number] 05/13/2020 08:34:40 AM EST [facility] INFORMATIONPatient MRN Name Date of Age Gend*PT [id number] Elena Marroquin 1965 55 years F ---PT Location Admission Date/Time Visit ID Attending Provider --- --- --- --- EPI ID CSN Admitting Provider [id number] ---Name: Elena MarroquinDOB: 1965Date: 05/13/20CIED Remote CheckImplanted Device 07/11/2019Device Yard Operator MedtronicDevice type Single Chamber ICDMRI Conditional Device -Device was remotely interrogated and the following were evaluated:Battery statusSummary arrhythmia logsNew observationsFidelity of the EGM signalIntegrity of leads and lead impendence were reevaluatedConclusion:Normal ICD function.No significant changes continue to monitor.Signature: Law Vasquez MD, [facility], RSCardiac Electrophysiology and Arrhythmia ServiceDate: May 13, 2020Time: 8:34 AMThis document or parts of this document, were dictated using COVEGAware. A reasonable attempt at proofreading has been made to minimize errors.Please call with any questions or corrections. Name Value Range Interpretation Code Description Data Moni rce(s) Supporting Document(s) ID Date Data Source [id number] 04/25/2020 08:34:00 PM EST [facility] FASTING: UNKNOWNReceived: 04/24/2020 at 08:42:00 V6O: [facility], , [address] [place] [address], [phone], Mannie Castellon MD,PhD Name Value Range Interpretation [...] Passed [facility] ID Date Data Source [id number] 04/11/2020 12:30:00 PM EST [facility] Name Value Range Interpretation Code Description Data Moni rce(s) Supporting Document(s) Follow Up [facility] SRXPIb8aBwRZBeTvASNhDjyVGTfcEKfzNHPoS0A8LYasLa3QWFxrxtLjHDQsLt9+KXDjAK8cor1iVLVb gMy 9oUFOnGrtdI5EhRYDvb83RYDIfAUuHFjIzMnPgSWBaSQN3XEW3JSE8MdJzAldhPY3pRPM7RRNtIUlaEL TwNWAaOJNvSFvpZD0cAMoySPjtZj3JVW3jt5UbUTZpGHUtMzsTOAqrWCwbECVsWWDmNEYfQ906iwZwVc 1NzIJjZCw5IERnZjB8CVVfBiW4DOTcKjTuJaEtZFRv PQZfLCWSVPC1TUYtRx6qMhAhb2GxW3CvYEp1O2rDDccxY7DiKOlfHN9iPQP1HIDwYl9TdAkmXRujBWIA B0eaCnIeHXEeFULJB2mkBhDiQGWrMLRDZ1vnDwFdXVazJBFHW2oeFpAzBcKePUXEUh0+Pj4+GSQkST2w og18ITLqt2MmUMz3K4B3cFDoA0KqR9DbJTWnyLSSv2 rwCkUiVEB3PFMuQmdjBM3SFOOgvEIjPSVmGEblQO0wfxYvbYD4LO7LnBjxUIFrTSWEWv9+Jy7EBYAmwn KsYuQpQSOxV16rqLBlgUIlVyckHUNOYE4+WOQgXC9znd24VQQfp7RuBMm1V7rkaxj4kMDiYeTqSJOoAq TtNSNlVD6nAG6NrMG9tKGjEF8MfQSbNQ8VyVOcCV5P I6YmGLS6G9YuyRFnlsCzV9KcDWPwNVVyz0EoQH3GY4MYPCSgLJRbG2QajQ1pX4XbY8TxV6YmdpwkQPHA Nt4BtOI6lBMrSYItY8vdjSwbiFXnAGqrF8UogITWPUMJz41mk34gmlNwRM4+e6YmOYRfWFs61hw4THUn YfdnYpyITSEFwVGQWVpECeenff0rWkLtEmW3BqtE5b 8cHTJ0Io8G5CS56nv8Q6AFp1lph6w/2/tS6PauBzbyDu/BdjAM2cnjs1/XABIAVGRkFGQkVBQUlDdvUN Cj3VHz6UUkcY++q8GrF9MyFDfmJ3EpCzWp+oYYKHDXz8KRsWhEf8TBbg5QuIxwiMWXu/3cnjM3suHLYk 7YSBJKdH533Ha7/9/01p6ZNULaN9mTqCwPxTpID3OF [file] José Miguel+g0g0HHYINYC4o0Y69AehIgTl6R8KNHz5lz0Ho [file] RK2aY75WQUZOEeWeaNCPLnHEMZYTGoBThixKcUUOz6 njf3qAtc9F2LTrs6RzPvcLrZVc4H3m2wgjFj17u6o7ZysJ0+GXBXAMAoS9qgcu06+CJcxZ0Iq0fnxdbA jJbCaVFlOYF9p9w9At8Iz1pEB53RrhLW7aohH+Gfi/HzvTk7ZIUY5brqnpDUcQOXag/wbJY7l3qgbuuj DHwhPrLbWg6p6FoqG7jylk+q8oWVAJolLjQ5RP32nP aDcXZ3jHohJ/BabXmGDlRNJ8Mr00z8OT9zLSY8ismXWCnsHEzae/sMWkRasjxbPOrbL+P6EPd1rf/8Fi VZkIlR1/UWlWmzskqH1cffGexpB/ShXzv8NfB6F8+NKEZl3ETfqovs7lpSmBMp289RMsgTUTwkZ3HELS X8TLUrW3R10Ufkze8OldTG3JGs+J4rqO9rLMwRYT4m 2B634I0kwkio84c1JImtDSPemAK9xY/Uo2OWvCj3TnzD2C6UDN+tPA8oi9bP/7t+3XTnHxYdnRIvU98a VvhZc1DefWMCUYQQtQZRIhzdGW7zKW+5SV63mlKEkl+yOuCC54p4PVGcOQ5TZD6ucwJMbWI07yzCFz/r VIDEO EDITING INTERNSHIP/Wts49Kz04lgVLss5ho5vHrieNrV988x+fPe9OW5 lT5+TxW4x0PcTGpRLKuf9MvsszqkaAGjqpyr+cEDzDKeUSQMOU8PlL9KU6azzOVJXJNjSEpVJo/SOFV9 upuqlfxB9OcHG6eK9usLGJGKL5V35KsCizscrdR8GS+qRiHKcHokidR2mUnenYD68AqiqKxZCE5khpGL E1q8sgpbBUBWSAvWIgsUGt65ZzRvwCGZKXpMTEUUSi [file] grapple yarder operator/f9UBPE3V5dV1eY5oSW663PaSz2JAbfElzVMnrp118u2F09ozJ9oRbKzBlp7AoSp2rB0Va+iNmrKH tz4Uxe4ZA9LsfWr01/5XPIzzAc/FKvN0PfrY+SGmcw HXdIX3yULDGQ7bYGx7Xawu+9KJ9m7kMULYK+5PvOwxlueYWNkQ7MA19sigE/Iud4GknscLk+vYWIkzvQ QqRyce0O+UMlfzFa4fOVeLv03aZyWTadGxPEt/GCirG1d78fFUOVKJa0HDfNQlJcIdBmBhb69bPFLRY2 8Hwm+hLJat/c71n0Kcbz0NV4DgKmvIU0gyQ+2C6YOY N6/GgpOeyoWCVw9qg6xvQ4b+4cLL+5c3I2B7o4yhRM863BjFgA1eHrjgPxc2R36Id3FbVxeb3lXl7oFN ma18KwjUfy0iOKGHFmmOtcWo9//Yu56ebD4VNzIn6fo6Ra7JEyRt3Ndgh65wRX36QcJDrGL5coOpRWcj XWXk4O8JguaZWLUWR72MSKHnRza9rKXo1nAEPPOUQm [file] v/JQKF9SW+deputy chief counsel/C2NKKCxqMilGF3CPXM0U9iWugx70 [file] ZEHbQND9ZdHXsWi3OCnw9GgXIe/oxrGWW1Rxyrmxiac4DGw0yA/Technology Solutions Architect+JN8R64nETt3im3qEEf0HLZCQph [file] seafood specialist/zoxI2L0luKUSJlQIEOxon6AlxRlvnCZOFw7pja [file] 7uS3RWKYRZfrROd3D8pq30jj/i5IsyO+X6jBG/CONSTRUCTION AREA MANAGER/xIRmssjCTbeS5ALVB7cGEySH5nrDUlP3sVNk/JA [file] tVKNszGsZt0GRB9wx7kEAhK8XhGgy8GFdoGx66pOEENyxDIbzckppK2IXjtdDSAqbW0Si9lcKNVq5+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 [file] Z872Wcb3uwUNn8Sr/EawnAk2SD3T7Cz/62vS+0ptfH4qP2TNBRfKPKqf3qorJDuE+9KMYqNz+tTic/CONSTRUCTION AREA MANAGER [file] G8llqCsYmW4SGRRE3XE6waAjfsVE2/4yC7yrAnN9hneiEfu6XjqcE8bEY2yrhOAaQGVTDn/vp marketing services and skin+neK5nP [file] Z59q9n8O42Rik2iIZ73JoUzu4Sm7+vp marketing services and skin+fRsuiSYRWT [file] 8371NJrImF9eVAcXh+4zbeEPajTi80RY56pvMn+ [file] LmEw6hkG+bobtail driver/hb8CknWEglSPA8pfw8KNPheK+lI2T7UX/PZyFzQPog8TWjZseXX0MMslACZW2Kl0KEL [file] Technology Solutions Architect/xaVek69t8nkgJNFfuCCBAi3sAsHYDHtrqghQs+zXsTmRFnIrlEV3sXsLQJIJ69dPru0mSNP/1fX70 [file] ED3mi0h7AILtQKlTZfWXN87MTs8NhG4sa7j1DIjqikkLmEnMhGGQf3p5/Ig7eL+/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+09DpfvG1tUapT N4iceoP7Lio2BSBFaoyUz6FtCiIwPSuQjMc/H0pJSe FaQyGbQyWOl9M877dP/XQnCdy0g+syyI7LmhPUBJSgRp2yBWrGnQeKMSB/CImdtZC+UnQwcpLIpsEUEd bd2zknpZRH5oLKjk2llzDwFJCWbz9nTdblzp/BUgXN3MtHkAhlFWnxn2rrBKYNMULZTWygF+n/cJYRWK /PzlUOH421wN4QkFtdpp8ag2+FRw65y63pSbcczvq7 dsnpgvgtkMtb6VleZSjqbdZsD7D1CCB/aQW/brent/WuGRGR+I6HuXR2WW8SPlJIdtW5/efLP06dDGjoyL [file] Coordinator Of Online Programs+p3df6LHXYBGnuzNTU0YJQ3RM1EaWZ86xkvOCzL1Ug1t0LIttx/Gz1cesKkOlHb4W3zj/X9gFd2gcd [file] nIrYqYN9Z+leZ7uhPwuAOc6SuhWnIC/BhTTYubjKtpSvJBGpsENPE8cwwA8mOz/nxBxRWLss+Lori+Ayp PHWt9qkdnY4R9t0DH+A3CE2VUghjtmbrYWX6yQsU7fMVy5bembcGytPAGqyrsRzxBEMzhh4/rJAQHLnq 8GK7mmKRaEhOjfVoQFRf5Y5OX27mJPztgfxKnuanV4 N61RPimFDK/tP0IDjW6wIKpVSdNf91BjcwPXIbSouGFO7q/J52uSiP8Vl0aAFXJw65VoaxIomiOnw/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 [file] WnMywPf9rKe41ofcNXWVHaonpd77/8RfdfGPUR3ej7QUJitZTNIqanl9VkdZrU2m3BTO07XZbu+c/Dilcia ao0GwmE9hb7Kpf5jxuTrJqyo6Wsxy1t7JmRUzkv8WBM9VjF7XHkUqSuHim1O0uIMWiBsQyd6jw2yACuJ +PkkfNHtKXOGM5fb15aVEVZIG+xy5za//0LCsrd [file] pULRfp6SPxnDQReDep9RoVEbP+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/5LmatuZurme/sNDQ0c2yB1ot8jxJrnhTmzDNXSi8jrle+FMvKfl heMO4BP7cn0aLQDeTW9l9O+CK6oslqKV1cfZMkMCJi7iYCdf5SHTc6SZ3CyUoERyibMLWjqG5EMauT/P MFtVIRC3uGaUkF5esi7tuq6OWPBu6wRpl3oNgA9a7I Ever+AkVxTgrz9U3TV+NxLRefda6+W88u3LzQrCpezXK38wj7SrfM/YrRbrZeF7FmX+GiycuciedtC4O8 [file] +VY9YRSPVIZ26mJkLc2l6Zm4YrASZXvdZBEL+Rje421uKC/c3lsqksMU0ha040q9i+Fátima/z9XQyEO3rU [file] PMj/cloth dyer/cp7WaRbjzlFFifEE+3exV+dfU/PEeuUNY3IzeGYcRgAw30Y4RM/cvBVIxwLfkx8A+XvNap5L [file] OmKmkbQnMqlkJMkskcHWXcCWSl0sDDxC8N1gdR7TPQbRul+Coordinator Of Online Programs/AWkbSjQQaq7hM/8z1Fa2gqFMhLkXiB [file] sLEwEqUTzOMULEPJEjJY7UIGR8l9cyH4mUb/Bne7bFusZfbI9LhMKWxrXL8/bbfmjP0qUJwJQEwIU/CONSTRUCTION AREA MANAGER [file] DGSXPSGiMuRLhomuEfsCHuZC2VLpTdZU5mxl1XUlD1EGI5pCRgVv7GHdR9RFC1Kj0YJYBZP2U= ID Date Data Source [id number] 03/23/2020 11:00:00 AM EDT [facility] Name Value Range Interpretation Code Description Data Moni rce(s) Supporting Document(s) Hydrogen Breath Test [facility] JHBHCu2aGgKXIzRcCLTrEwrWKNeoKHtmDDEoZ6K7QUqzQw6OFEuwsxXmPLEtJp1+RMXpFF3tef7wCKXk gMy [file] xD1+Eom7GfkStnngpbVs4w38aJG9y4nKq55uG0a5svvtzGto4gXpsTiNHPoItMw+HpKw+curb machine operator+LxyNGhD [file] Eeph3bWwsTTKm2PGtg5+Twvdw6v731gHhPpMpVLYqEvssAlzFwiQvY4KH7Cxpn+CyPNt8idvUvkV+HEAD FIELD HOCKEY COACH [file] /ZU+VIDEO EDITING INTERNSHIP/qY+bmF5sEm29IUld53E19xnRIWddrSHhaZ2 [file] 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/tt7pfaOQvtok1yxb3ixFpfLeAMxqFAEmQfsi5cV [file] ZQlHabtkwgdSP8l/Moisés/spZywMZGxKqSbzDeuwj344sJyVis4+Rk2K0aRJnuTWmPwQmdFB/2T//n8rr/ [file] 20feS3keiWSwlcf8lMn+pW+xdFXy+María/lqThvD2gphhML8Evcyn/5lElufHRYxZt2LVG0adHHdN7rc8 [file] 5aO4lRoSjjdUHNdJrLxC45/WiCV3/9lzCyubhkG5UTOyFMYL9ukF1/+NbkiS+OJpz/Technology Solutions Architect/OKFiNCehlLq [file] HZ48JWEUi9WGQqRuKLm1Umnxfw1X3ZLVMsHdkT/computer repair engineer [file] zk7GPpX2YTI6bKUtEw2MRhNoAtQgTWdkUDKOVq== ID Date Data Source [id number] 02/20/2020 11:32:00 AM EDT [facility] ([facility]) Name Value Range Interpretation Code Description Data Moni rce(s) Supporting Document(s) <0.2 0.0-0.5 CRP [facility] ([facility]) ID Date Data Source [id number] 02/20/2020 11:32:00 AM EDT [facility] ([facility]) Name Value Range Interpretation Code Description Data Moni rce(s) Supporting Document(s) >60 eGFR [facility] ([facility]) 0.9 mg/dL 0.6-1.2 CREATININE [facility] ([facility]) ID Date Data Source [id number] 02/20/2020 11:32:00 AM EDT [facility] ([facility]) Name Value Range Interpretation Code Description Data Moni rce(s) Supporting Document(s) 27 U/L 15-37 AST [facility] ([facility]) ID Date Data Source [id number] 02/20/2020 11:32:00 AM EDT [facility] ([facility]) Name Value Range Interpretation Code Description Data Moni rce(s) Supporting Document(s) 43 U/L 30-65 ALT [facility] ([facility]) ID Date Data Source [id number] 02/20/2020 11:32:00 AM EDT [facility] ([facility]) Name Value Range Interpretation Code Description Data Moni rce(s) Supporting Document(s) 4.0 g/dL 3.4-4.4 ALB [facility] ([facility]) ID Date Data Source [id number] 02/20/2020 11:32:00 AM EDT [facility] ([facility]) Name Value Range Interpretation Code Description Data Moni rce(s) Supporting Document(s) <2 0-20 ESR [facility] ([facility]) ID Date Data Source [id number] 02/20/2020 11:32:00 AM EDT [facility] ID Date Data Source [id number] 02/08/2020 03:13:00 PM EDT [facility] ([facility]) Name Value Range Interpretation Code Description Data Moni rce(s) Supporting Document(s) White Blood Count 9.6 10 4.0-10.0 Normal (applies to non-numeri c results) [facility] ([facility]) Red Blood Count 4.11 10 4.00-5.40 Normal (applies to non-numeric results) [facility] ([facility]) Mean Corpuscular Volume 96.4 fl 80.0-96.0 Above high normal [facility] ([facility]) Hemoglobin 13.4 g/dL 12.0-15.5 Normal (applies to non-numeric resul ts) [facility] ([facility]) Hematocrit 39.6 % 36.0-47.0 Normal (applies to non-numeric resul ts) [facility] ([facility]) Mean Corpuscular Hemoglobin 32.6 pg 27.0-33.0 Norm al (applies to non-numeric results) [facility] ([facility]) Mean Corpuscular HGB Conc 33.8 g/dL 32.0-36.5 Normal (applies to non-numeric results) [facility] ([facility]) Neutrophils % 54.6 % 36.0-66.0 Normal (applies to non-numeric re sults) [facility] ([facility]) Red Cell Distribution Width 13.0 % 11.5-14.5 Norm al (applies to non-numeric results) [facility] ([facility]) Platelet Count, Automated 216 10 150-450 Normal (applies to non-numeric results) [facility] ([facility]) Eos % 1.8 % 0.0-3.0 Normal (applies to non-numeric resul ts) [facility] ([facility]) [place] % 7.0 % 0.0-5.0 Above high normal [facility] ([facility]) Lymph % 34.8 % 24.0-44.0 Normal (applies to non-numeric resul ts) [facility] ([facility]) Baso % 1.0 % 0.0-1.0 Normal (applies to non-numeric resul ts) [facility] ([facility]) Nucleated Red Blood Cell % 0.0 % 0-0 Normal (applies to n on-numeric results) [facility] ([facility]) Immature Granulocyte % 0.8 % 0-3.0 Normal (applies to non-n umeric results) [facility] ([facility]) Lymph # 3.3 10 1.5-5.0 Normal (applies to non-numeric resul ts) [facility] ([facility]) Neutrophils # 5.2 10 1.5-8.5 Normal (applies to non-numeric re sults) [facility] ([facility]) Baso # 0.1 10 0.0-0.2 Normal (applies to non-numeric resul ts) [facility] ([facility]) Eos # 0.2 10 0.0-0.5 Normal (applies to non-numeric resul ts) [facility] ([facility]) [place] # 0.7 10 0.0-0.8 Normal (applies to non-numeric resul ts) [facility] ([facility]) ID Date Data Source [id number] 02/08/2020 03:13:00 PM EDT [facility] ([facility]) Name Value Range Interpretation Code Description Data Moni rce(s) Supporting Document(s) Cholesterol Level 151 mg/dL Normal (applies to non-numeri c results) [facility] ([facility]) Triglycerides Level 118 mg/dL Normal (applies to non-nume godfrey results) [facility] ([facility]) LDL Cholesterol 51 mg/dL Normal (applies to non-numeric results) [facility] ([facility]) HDL Cholesterol 76 mg/dL Normal (applies to non-numeric results) [facility] ([facility]) Non-HDL-C 75 mg/dL Normal (applies to non-numeric resul ts) [facility] ([facility]) Cholesterol Risk Ratio 1.986 Normal (applies to non-n umeric results) [facility] ([facility]) ID Date Data Source [id number] 02/08/2020 03:13:00 PM EDT [facility] ([facility]) Name Value Range Interpretation Code Description Data Moni rce(s) Supporting Document(s) Hemoglobin A1c 6.7 % Normal (applies to non-numeric r esults) [facility] ([facility]) <content>REFERENCE RANGES:</content><br/ ><content></content>
<content><=5.6% NORMAL</content>
<content>5.7-6.4% SUGGESTS IMPAIRED GLUCOSE METABOLISM/PREDIABETIC</content>
<content>>= 6.5% ABNORMAL</content>
<content></content> Estimated Average Glucose 146 mg/dL 60-110 Above high normal [facility] ([facility]) ID Date Data Source [id number] 02/08/2020 03:13:00 PM EDT [facility] ([facility]) Name Value Range Interpretation Code Description Data Moni rce(s) Supporting Document(s) Glucose, Fasting 109 mg/dL 70-100 Above high normal [facility] Blood Urea Nitrogen 21 mg/dL 7-18 Above high normal [facility] ([facility]) Creatinine For GFR 0.78 mg/dL 0.55-1.30 Normal (applies to non -numeric results) [facility] ([facility]) Glomerular Filtration Rate Laboratory test result Normal (applies to non- numeric results) [facility] ([facility]) <content>Units are mL/min/1.73 m2</content>
<content></content>
<content>Chronic Kidney Disease Staging per NKF:</content>
<content></content>
<content>Stage I & II GFR >=60 Normal to Mildly Decreased</content>
<content>Stage III GFR 30- 59 Moderately Decreased</content>
<content>Stage IV GFR 15-29 Severely Decreased</content>
<content>Stage V GFR <15 Very Little GFR Left</content>
<content>ESRD GFR <15 on TIME ANALYSIS CLERK</content>
<content></content> Sodium Level 139 meq/L 136-145 Normal (applies to non-numeric res ults) [facility] Potassium Serum 3.3 meq/L 3.5-5.1 Below low normal [facility] ([facility]) Chloride Level 103 meq/L 98-107 Normal (applies to non-numeric r esults) [facility] ([facility]) Anion Gap 5 meq/L 8-16 Below low normal [facility] ( [facility]) Carbon Dioxide Level 31 meq/L 21-32 Normal (applies to non-num negar results) [facility] ([facility]) Alt/SGPT 54 U/L 12-78 Normal (applies to non-numeric resul ts) [facility] ([facility]) Ast/Sgot 19 U/L 7-37 Normal (applies to non-numeric resul ts) [facility] ([facility]) Calcium Level 8.9 mg/dL 8.5-10.1 Normal (applies to non-numeric re sults) [facility] ([facility]) Total Protein 6.6 GM/DL 6.4-8.2 Normal (applies to non-numeric re sults) [facility] ([facility]) Bilirubin,Total 1.0 mg/dL 0.2-1.0 Normal (applies to non-numeric results) [facility] ([facility]) Alkaline Phosphatase 50 U/L 45-117 Normal (applies to non-num negar results) [facility] ([facility]) Albumin/Globulin Ratio 1.8 1.2-2.2 Normal (applies to non-n umeric results) [facility] ([facility]) Albumin 4.2 GM/DL 3.2-5.2 Normal (applies to non-numeric resul ts) [facility] ([facility]) ID Date Data Source [id number] 02/01/2020 05:23:20 PM EDT [facility] INFORMATIONPatient MRN Name Date of Age Gend*PT [id number] Elena Marroquin 1965 54 years F ---PT Location Admission Date/Time Visit ID Attending Provider --- --- --- --- EPI ID CSN Admitting Provider [id number] ---Name: Elena MarroquinDOB: 1965Date: 02/01/20CIED Remote CheckImplanted Device 07/11/2019Device Yard Operator MedtronicDevice type Single Chamber ICDMRI Conditional Device -Device was remotely interrogated and the following were evaluated:Battery statusSummary arrhythmia logsNew observationsFidelity of the EGM signalIntegrity of leads and lead impendence were reevaluatedConclusion:Normal ICD function.No significant changes continue to monitor.Signature: Law Vasquez MD, [facility], [facility]ENTERCardiac Electrophysiology and Arrhythmia ServiceDate: February 01, 2020Time: 5:23 PMThis document or parts of this document, were dictated using Rent[employer]software. A reasonable attempt at proofreading has been made to minimize errors.Please call with any questions or corrections. Name Value Range Interpretation Code Description Data Moni rce(s) Supporting Document(s) ID Date Data Source [id number] 01/26/2020 11:17:00 AM EDT [facility] ([facility]) Name Value Range Interpretation Code Description Data Moni rce(s) Supporting Document(s) <0.2 0.0-0.5 CRP [facility]) ID Date Data Source [id number] 01/26/2020 11:17:00 AM EDT [facility] ([facility]) Name Value Range Interpretation Code Description Data Moni rce(s) Supporting Document(s) 0.8 mg/dL 0.6-1.2 CREATININE [facility] ([facility]) >60 eGFR [facility]) ID Date Data Source [id number] 01/26/2020 11:17:00 AM EDT [facility] ([facility]) Name Value Range Interpretation Code Description Data Moni rce(s) Supporting Document(s) 28 U/L 15-37 AST [facility]) ID Date Data Source [id number] 01/26/2020 11:17:00 AM EDT [facility] ([facility]) Name Value Range Interpretation Code Description Data Moni rce(s) Supporting Document(s) 70 U/L 30-65 Above high normal ALT [facility]) ID Date Data Source [id number] 01/26/2020 11:17:00 AM EDT [facility] ([facility]) Name Value Range Interpretation Code Description Data Moni rce(s) Supporting Document(s) 4.3 g/dL 3.4-4.4 ALB [facility] ([facility]) ID Date Data Source [id number] 01/26/2020 11:17:00 AM EDT [facility] ([facility]) Name Value Range Interpretation Code Description Data Moni rce(s) Supporting Document(s) <2 0-20 ESR [facility] ([facility]) ID Date Data Source [id number] 01/26/2020 11:17:00 AM EDT [facility] [...] 2.3 % 0.0-5.0 EOS% [facility] ID Date Data Source [id number] 01/15/2020 08:58:50 AM EDT [facility] Name Value Range Interpretation Code Description Data Moni rce(s) Supporting Document(s) Progress Note [facility] MMRRWh0xMpOKDsWq68/BRArhSCBsi8EqTCklKHs8THwiZCEmI2SyMIY0qL4vHTK7TZuCQpHxMtCgSFA4 lbm [file] AgICAgICAgICAgICAgICAgICAgICAgICAgICAgICAg ICAgICAgICAgICAgICAgICAgDQogICAgICAgICAgICAgICAgICAgICAgICAgICAgICAgICAgICAgICAg ICAgICAgICAgICAgICAgICAgICAgICAgICAgICAgICAgICAgICAgICAgICAgICAgICAgICAgICAgICAg DQogICAgICAgICAgICAgICAgICAgICAgICAgICAgIC AgICAgICAgICAgICAgICAgICAgICAgICAgICAgICAgICAgICAgICAgICAgICAgICAgICAgICAgICAgIC AgICAgICAgICAgDQogICAgICAgICAgICAgICAgICAgICAgICAgICAgICAgICAgICAgICAgICAgICAgIC AgICAgICAgICAgICAgICAgICAgICAgICAgICAgICAg ICAgICAgICAgICAgICAgICAgICAgDQogICAgICAgICAgICAgICAgICAgICAgICAgICAgICAgICAgICAg ICAgICAgICAgICAgICAgICAgICAgICAgICAgICAgICAgICAgICAgICAgICAgICAgICAgICAgICAgICAg ICAgDQogICAgICAgICAgICAgICAgICAgICAgICAgIC AgICAgICAgICAgICAgICAgICAgICAgICAgICAgICAgICAgICAgICAgICAgICAgICAgICAgICAgICAgIC AgICAgICAgICAgICAgDQogICAgICAgICAgICAgICAgICAgICAgICAgICAgICAgICAgICAgICAgICAgIC AgICAgICAgICAgICAgICAgICAgICAgICAgICAgICAg ICAgICAgICAgICAgICAgICAgICAgICAgDQogICAgICAgICAgICAgICAgICAgICAgICAgICAgICAgICAg ICAgICAgICAgICAgICAgICAgICAgICAgICAgICAgICAgICAgICAgICAgICAgICAgICAgICAgICAgICAg ICAgICAgDQogICAgICAgICAgICAgICAgICAgICAgIC AgICAgICAgICAgICAgICAgICAgICAgICAgICAgICAgICAgICAgICAgICAgICAgICAgICAgICAgICAgIC AgICAgICAgICAgICAgICAgDQogICAgICAgICAgICAgICAgICAgICAgICAgICAgICAgICAgICAgICAgIC AgICAgICAgICAgICAgICAgICAgICAgICAgICAgICAg TNAvXQAhCFCwQDIzZKRoTCIbCLQcXMEqCWDtCGo3G1xaUBQdIULvKI7sHPd5Pk7+FLuGByXxGMW4voQz sH1QKL5ej9KmDByuJMDzx6WnTGr7ZI7FTHBuRKyfAJ4MTQgyoi2BBHVhBUIyhUIFu2wiEtPaIKV3AOWa YzgaVP6PMNHyB5lzmdQlASAdQOLWFOyfKYHOUNscAQ NSOOSlLNVfRpDxDNsgKT2Gy6CfiFU5CCa+Qn1JQM0oc8QeHCyfWAQtFN7ago1YTIbOHdEtE1WctsU8DW JaTREzGe3UCUCbGVIctJPeAwHlRNFSNtAaA9XfwL16ZLGBPw5+JGjtyvLvGsvUQlXeDEHkv5CiGYs3XP 1CSYRlNYf8pMLaSSAaB9Uvo2VrDe30SFDqVmpqS7P4 yD7pPhBCOVK3MPStKD0MSIB0HEydJt4eFSNzZHKkLjG5BFHIYX3HBPZnQEWucAQzPHHdREUZQG9WEEsa NCC6CFSkveVbzTNcZGjvVE4SGIQeycYySeNqFCZXJYj+Dz2CLZ5as1ZxWGgzWgWzEE1jgl4MYHtZEqJo U8U9iGAxT2F2AKvxKc1VINWhNOKeIkpzDGKAZEqbZQ 3HVA6qntS0ZA6FlMOfFGLxTIUtaHQqLZh8R47wfGJtTBgoTW6VUGW+Aurea+Kj5CVOJzJKRbODYfQsWoSW YTVqZmU0GjP2SCj3ZgI9OzCB18vWoqmqXfTPotWG2BFM3uWEDlMVXFLA9LdVAtgV1hexFcBVXnMUISUx MxC68wjEUhYWKsTFZbIUKfOo7TGSMbC5IemaUhuXqh ziJfHMZnSQLZLA5CPBavyuTgwJJhoWpiLI60zTflFI9TTa3VUmLlSW1uoh4KlXEwMo7ZPDAiJF5RALEy ADShMDYhCSR0AGQmQfThEKohKXTlUVBvODC5WRTlGDZrTK7RNuNmUAAfVyqoAMWjSVNgUSQfhd2JMJNf LZDgPAk3EDLgCIKyQDIcDYfiRJTeXRNoDMU5KZFxLW RkRE0OOoBiJPMpBUJ0UbbpSJWpWIKhch6ZATFvCTCuEeN5PuFkZHVjSHCuVLeaNPBaOMS9XFDeWHMcBU BiMZ5XNlFbKCQzNKXaWdFiZPInGELhyy4FFINzDEImFDznEOSmHFGhGNQqEOkuFREwECS0CPT9RGFrBZ JeBF2YMmCrQAPgRBWsETTxVJVqURTfmv0AYMJsRFFl MWYyWMLaQAVkPZCwGLxpGNHrJFHfPievJQZzKPMzTV1JQtHjWNPjDON2CsvgJTWsPZOlav8PLZPpLNBi ZXM9QHUfXGAeLHVaPOgvTYIhTNHrPsKbBPXcBKPjBW8JWwKkTAHpHDB4RfTcKGEwXWEzcd2WISXsFRUn AlWkIBMuMGXtODXnAQywKOBdRLT8NHPdGTLxNQZxDH 7OEoWhIPDfJeF0KbMnQFMnXPYlub5SXMUkCAIyCSm6QQItZQPzHUZnUWfdVRDjFNO7XaY8MXCsYRWiJV 0YRqLwHYXeOsMyEkSaRNQcGGTjae4RMTZkAKGuYsZzMSTvFMFmEWDlHDrqUALjXWK2HJSjGHYtYAFiMC 2VQeKkWJDqVvX0RCVmJIUdKABqxh3UYELbERBnLnZl SgZdHQLgVIQnEWzuCJQoVUM1AFV7WFPcMBPvKP5TNsTwBAUdJsu4PVStQACxDHVckd0YKZBnNEEgZGGi VTZfJRGdODSsQPspDJQcRWZ4EPowEMGgPTPrUI2RErOfUUUvMfm8QFUvXZMtVJQsre3PRPVyJBJoDGPz DEFvSAKfFZDcFAe4fsVdhPZpUOf8SW9JV6XnlvCgNz BRPi9Tl352QSThTXChHc5AU4prRx2uMWEaWMXAMh2RIGq9V8IxH5GzLMa2EJU2VFXbDmTzCgQ9WCwsY7 IsYUE2DHD+GCjtUmVoRNP6PMAyBsV8PVB1I3IkJCE4LXQ0CWXpTlevGX3vHSXNVb1+DQpzdGFydHhyZW ZBBfYqKjO0KSdpJRWHDf0B ID Date Data Source [id number] 01/06/2020 09:15:08 AM EDT [facility] XR SHOULDER COMPLETE [id number] RESULTIn terpreted by:YUSRA [place] SHOULDERCLINICAL STATEMENT: Status [...] rce(s) Supporting Document(s) ID Date Data Source [id number] 12/20/2019 11:45:00 AM EDT [facility] Name Value Range Interpretation Code Description Data Moni rce(s) Supporting Document(s) Follow Up [facility] ZLZPIt8wOgWJNhNzCNLbYjxGFPqtOYuuSRKmV0K6JOoqCz2PEIdarrQcCAUqLh8+BQCdQQ6rrw1nMBEd gMy [file] forest ranger technician+aQ0DPtF4qyC6gtFEWoYmR0KO356CweeGCaSVTi [file] gxodN4kdzizmIs85HnsE/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+ed/35B43ul0m0CRDmcKDU3Lj5jSJRWArexVS3uouNA2iFSu5xrkWA1Km [file] nVY9d/Mary Kay/brY8xDIhc8LLfN/onwLHydtHzeIQdvfq+OLyp6AEjrEje9NnMZ3IW7R6E561BEEcWn1mFb [file] ZQi6lKRlW2zbONrilL/[place]/life science teacher+ZaVs+YGdgN+c9AcE [file] dp/CONSTRUCTION AREA MANAGER/QQdTb3prq+IUW3RjNFJhHr9zdg+dFlBci/HEPZv00c7azn9gBV0dGoKTgfQeRhfBZqrywrWElN [file] 8AqBrlvVB+gtmVtxfGR65ilFYnUBpMUG8EV6X4k+VIDEO EDITING INTERNSHIP [file] +9Ai/4BoZhAnG41EMn42oYAivF58AmjGS3qqk98Fqw8WA9HbosV3hfof8Hx4Ym+bioinformatics software engineer/HfloeDhZHTE2 D6gzuX6T2A9axG6P3k5OJVtni7sBkzXHOIZEvZJujKeeomFh10MXehRtMvjX7F9UFwNkTO684f/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+8q [file] international controller/1GiEvBUkuyh14BpS8pAQculD8uUFXz/Vcfj73Y0zTLu7sBnNa8GxHlGlZxUdbf3L2mL8uqg0ih1h [file] 6kKSrRNIaqQOZB/73kPeo9Wwvg+tOM6uHPm3E9p/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 IjWcIBolJFtu650nBcZLf6RbVEp/qtLz+MhN1f+maiNM/X8av+1o708RmgFzuV0958/TmB6jHlRreag1 lD6W7ZPtQ48mF0Hw4Q/4UOxgI6PpTRZdJS2AmfFX5H4/RqWuVbhvWmhfKFkSbRT3uB76riXjFK5F18Ek 87Kp/2ZXVrRsnDpDMZAf3x3aWC30yBlg0h2PJ8Wwum lJi5gmQPXg7poVvCOJuZ60lwyIJKPaNcDNRHNSvUVl86W7R0CJUOcY1NrkO4Hor/wa86MehuMHxrUIkW vehtpjuNEocQhpi2prDaI/71/SZdRxUzH5vF3thgT1ZtH94N36sNIZecl0NdggASu6qLhmQsKcBm4h1q Kelsey/Bt6VJoFO/22Fen7CvPBlabl8m+oPeth+WXqOg5T [file] d4XDFqFiBWL/José Manuel/n5kL3vbcq7rQCiVY0sVZKpxkiJJjOuaxqCAc6bJ55yhwEQxyNSL2MU7TAVUk15F1 [file] WamCJB0HWJa7z+8Nqu6oYckmSm8d022rW/GA/VIDAL/LBwYt4aFpZKa/Vgw7ryY8Y1KsM777o0bjBjE/wQ Ch1NRwa4RUBa46ti/bL1UEV62aYCRSQRccmUqYmw1q13UiZ8m+1IzkVHx1Xk8i8YOQVxEFFhAtIyPY7t escXhIdvws/O6dKjOd6gs5wmp+wGdBDPhAbC+KIqr8 +5vr+9r8ReUDpsiu8rvF1xj69x5MNW0d2MRXFAROFt9wJlaUKKF7kFc8EB2Ms7+qFi3+VDN+j0zTY4K6 Bj+/lhPK28B1jqbGjjL/uqrlMJX/benefits manager+Ot8qR45y+xovWqTTrB3jFxoAqpBGE8+/JGtvUGtlm/gGIfR [file] Carlos A+6/1+0y3aMphaSwAisdIS0QHRYF/FnyLpl3/Wy0mOTZiqNXCSUkcPJxjAGKeqYdoBgd7vLtUxyef9 [file] TPA8A3UOVcd7+37U/7rg9KCSlNXqtRwzm5Ak//eco industrial development consultant+rFTpxGfrKI2vITkqRnzpUJkc36pJu36TqhVadQ [file] zx6Bs0hjpuWJpigB46KV4FW+tDrORKpUwLX0Z71xjZX9WvSbisOaLEvTvsQf5s2g4nBVHdB//VIDEO EDITING INTERNSHIP+qq4A [file] 7WZLqW4ow4wUtgTkXGFLAjVIcWb/MATT/lPR+YNm/pwq yqIgj9lIVlTF2KpJPcY/pYr+44tEx9avuNyHPPtUwEBGVshj0FMOOWSyV92/WQnyXla0tQXL1dSuma1s a9clJd7EnMarbi8NQsr3hWrEiKdrYl4g+cdcmgaAi/wpuAJCAuD7FraG3FZTwpa711nQoSlYCUgDiVtY D0n0rHyPyvh7y7exRKT0BLuBwQDJTYS1yO0Yf9p2Nh 2s4Y/mAr0zCL3vNxfhTF2yxvq7QM7B8YrUyY1xWzuOVakHVJ+me7el8MULgkU5dD8leHbwU684oDLeQE YKTSxXRLysxYIbDlmR3NpSCLeMlFMoINsJA1EbWk54NlxxZSp9KDfPgYPp6ICOLLaSCoaK5RzgavKfaz +6ZVVKHpz2Ny+4dfI7tdezt8hU5xt6vub+RBpfq/oM rZoOgTdoVz8bv3w74xPw/vqd8zWv+dvGeykN3U4pXXDAUbe8kxxoF5PjzOYY2waQ4omwidTWbGViVtGk 6/0z3j8ZzzpmqjJWQWn9yPSfnTr6IMgmfKKhf4BWNFZ8TVNuVaBBAjCT76gTstwbflXvpDC9mxFRaJ+o XPNUU1TmjC0mSt+37/jeMh9eppWn5udE5XLTlkTwXP /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 mill 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+EkOW2L4baeJV1GsWeYKgSwFyHxo4CCPqRvG84Ty5X7CebJ5E2sKCvfd6/o1COStu0Gb2hl90mDx [file] 1mPK2gHCzqEwT5CRd+w52BeGp95UU/gas leak tester/Ab+uG+F/fRhRxH0rnEwUtYm+rUFsOXofGCZP0yhCcLSeNR [file] 9N3xY8zSqCHo3uNg0TfKi7LarSk51k+vp marketing services and skin+8JvxzRJuNl+egqvP+pQF/OYcGoDNuuS6Q6nYWimw3IAr6k [file] Q/y3+wYJ6oL13R/matt+x549dVUwAIAAFSXkKCIqYGYEhrDJ+KKCqCA4einZz7G4i4bcMFmt3676lh5unm voBPO3xiwt8ttFqFEhwNgc1nAcGGuynuz55xnU4CAUoFX8sootmMFVQ+14WE65jGhXq0JFKDNq0Xu15b 1J0xbRlyEl7fNUZ1O8AwJWthSmSN2HF5ugv25hBptd iRzgUKo1BOHDdPYniFl6eRipnzPCz9cJF32HJ/Kxw8dAk4uJaxCeH1VuojS6XC9hk9UhuG8fz2Jv/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 [file] OFFICE WORKFORCE PLANNER/0UwsevtvDZ1oc382b3c7nnL7PvbmrqyRWOWcF2eMbLQs98sAAgBaLMS3rrQLz8+xbUsMW39y8loB [file] XXh/Zi6p5dyCpuUhBSloJX5cJhXqNo6SOpt1pE+dial mounter [file] /b+dbE3X1GPKa1Fu39P/8VKXLp+T1/T0eTlLsr [file] 1T1LONM7DNeVKUXTcTGCFEIq2YeQE7s9SKi4pZp+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 CFGgH8JKhHa3+GD4+ISIwQYp68Bj7l4Jlnzpvb4OrECcb+/mfB8/Bai8dw25r6pwn+921SxjQt09jGRf LdUUogqhDoGL5NIaoj2UsbSlR3eAv610uIEoZO3qcgz3G2/bHOCFss9hS4reOGUM/o6HiDP2iUJ2NT39 K18Hrvxugzk6qPk3GoyKOKdW/rtHkFi8Nx7Xz9jYf5 V1zZFiQDLtl+1hqr8CnN17aDy8hM0d3dGQpmQNulnL71skOS6Q+kqa3LAS/6mgn0b3G8TIxJU3TdBItp e1da27vIrZJPmGCQ9hV6esdvRzvsUMarL8hpzdVvi4vEw5P9VB585f/C5llWXmmfPxpeBHd7Augzh0yI CsM0wy4Ki3TRQi9ets5VdOCH+GQKGlGsjFiU73fqBx 5ipHTZ5+IQffKh4OtjCqK+88j9MJ43TAMeaH2uzelQHCTvdaUk6sxVLRjvO67gwfh/biwiHLPQEuhqjx uc/whvjExf2tGjYtJVGBdXaVRVJioIXgTQdLNzLiWjwbPQKuhmYD111OVKxI8KvkbXgI+sOewfU8iGUE C72OmssCQnBbpOIINdXBXCqmiZvHIMXwI9W1s+cZkC ik/4yrDjowDFY9Xa+cM8z/VdCqCk7WXUn5fkKznMCc85RsWnkGygKoqExYqkxwf3gEno3oi6hROHmlFe u2deAJwHHBq9/TTUIySVDes7eDVvnOH80O503kXNfv5Ku6eGsC5WkVQLEDdGjaRHMz1l0KkDqjot8jpd OgZrEQ6xYwnmXoZUxePgy2GKWisi0C+lc3rSU+Simin [file] jxsTIH2n+3w7ex1udK79m2+commercial loan officer/Ajo6tYNGfnSXbsMIb9WVBR+fENZFG1ejY7EmD+Ma5HDnJPQf2O3/g [file] [facility]uxMi[facility] HospitalqmvOPdyOhA7/qoyLBuSU1gzqkpRfU9Lg [file] 3x9pBrm4zVDhUHvpUaTQ04WBcFmc7vhe1cCePe8H0q25eU6vtgb+IOJvkUr34vue2oel/lUqstdv/VICE PRESIDENT OF TALENT ACQUISITION AgOsopIg4tvqbUN3IZMt8r3J+ARXbyIJFoDd81L8+j GIttD1CKE0dF1eVNmdfHYYsfGKkpMTLjLw7xJ0kGmRHUvR59+hlFOHEwsFq8NasIyoDfPKWvcEJ82qic VdF4z5I9Fd50d1Dhi/fwn/kuLNEMX0s8H3Ou0hh6wIvMKgMMIOSJ/16x64XJigpbppvDtdzPwBmX8dci VmEkGQVJnHEyVBl0Gd6Av5fSFOsNxNUhyF1H2JSmGn p1tgC6yyJt2DbM/WGL+f3rYPUYFJCCn9Eu47v/IDzuCz8OOoBx5461IlwgOap/hUP+1accvYN3TWSAxa 03dHIS3DOBa2vP2rn+gGUXDV5lltxyfFUYUaYo3XLuYPpmMmtCWEkWMaydEJ5/fvHA/7I4dJDNGYQMsH yO6UjawW14hDlpm6pKMyVL1vfFMTofkeR/bjiwpMRI D5ic+aqJ9gBjEF3g/ORwgianZ5xlCEUJYzij8DIA6XdWAKnptOn+pXhTK3Aq90iC6Uv0mXrvLFJAK3Rh pBp/EgeVn1FJVCyVUHK3m1W6XmM9i0RwdU0LYcwCzuK07wK7/iR+5joO76NLTZFn1HOwh+5NYbQWVZpi 25lD4kxIeU53Jw/XY2IpJk6fiwJfKsZgkXtRMLTapZ 7uBH0UJT8geYyKB8oq4fLE+xFg7fFIro5mT7nvYDL/MTwfJZWMSFqqOO6SsYvpcr80E2kV0iMT22ig68 Shanti/k3GFX6/5hBTvluaonR0AR5mEr0HU2c4SYtQWj5FkCSna9L3v2KiBn7VC+QqE4bI3nFR946Q0zu0c [file] senior firewall engineer+N87HW/9NL/HOwbMdnC4Ip3EN+GWipBNOHy4jeh [file] FRYER LINE HELPER+IfT6iYsNnzDteGOIT8yWMPFYNz9aEhQtgm2ZQg [file] NfZIHxAHHPGDbr4Y0ksboPKzgCU9oDoEpFQDDeOuqW5992oNxSkFw39z1vEquo/rv mechanic//vxn8Lnxbj2MB [file] 0/w9Cf7d8vimzTvoy5/flour broker+nivCS0DbhSrSmt9FSZBvPx1xBxR+v9itssFCNF4WOdyvfqTER6L1UdlJ2 [file] JUAN M/fQNc1FRZavaPKeKP3kOYyIL2TI/yys4mF7DFYkib8CH0KuEsAv9RVglqPRGJzeKxQXOmHwcyAy1x [file] Jean-Pierre+N5B/dafPiYHo8lmrzLEz82XPINC7M/NYD2UoV5 [file] pQK2tGRN8gWZN11O7cKwCiZA1gmkLvRwJkwhm7T8M84UwnCbr+retail support associate/ztgDxMcX80XS35FpTBwaYgkLK [file] K3QK214bivl667VPGO47Io2sWzf24U0RvA87rDKRsY /+nOKudC76tJIA8sehuLsDBkr+wclfE6iV3eE+5Sk5//W18qBi45suQczPHCn2X0g+VIDEO EDITING INTERNSHIP+9UqiC8vyy3I [file] yYtb/Technology Solutions Architect/rku3v7MifpmBk88aBWypDzzqq6ExpJv8aG [file] [facility]/9+uiwF8lE5Bxo0LxRV3jKhQBPoZ7BUWLMGQU+FG7llguJ5QnHqBpepoLhFHs3UB03h7Gc3a6L3N3 [file] zkha/O2KnMwzuLCkpND2t6Xa9WwPyKhAxMfOqt+starch dumper [file] 7uZjpDCP4byamzEAil8MoMLp7ORyLRkkoBjGT39KY82gbBDvBbdnq6BvipHzXOIuSS4Z+vr8Ywio+Kevin TFyQhcZKB90BNL3/TKyPfsbUPs5SiNqt90ApzkvAEhIn+2qRLlQ4DnteRIK+aJrjrTHekVZUeOJtwJZX PBa4NHqtHDTcQI8H2tZuV99h2TPYDRXhy+af9BuZ8P nnagmkpO1nKqfqgepP8fEW52aEORMWP30KwgzIXbi4xpDGizVWDufIViVeePNXZpgMdMMnauA1s//gary Da6YX0794rjc6Ng58QhxvuJnAaXIZVWNLLeO11/u7p44/eyrVcoxr5ZZl0NSBfi9dUNQ7RvNiL2mA8nU nNWfQPpZ0XJrVJc8/5BicU9Kjcw+0GunU60vS5Rx2j GgV5x2as5cPj0cUzSGdn9KpCKf6hpj2BX23JecyErR/R4IJ/F6MLgXc098ZagwZjIKXHwks30xhm3K1f x/+9D+g0obLMzS45SH8BGMDOPpE+pu/D+TAtUDvDmbpF0X8VJ+lpEisIA1LGefE0JOmHZltlJtKbB0Bj Vj0EFvTzOCs5Qusnkj5S8hKU5ZTZ2GBOHVmJs92tR8 ELT2eaLG6C/Gnfc9QLO+HzOjx9cGWXTVDB93lfCQdkHf2Kv2ZRBZMfYfHuAgI/cUWFin1Lk4GqSh43F7 SKALExJcqetTAV+hNWWUm1Qy3FucueBOLQ4czqR1FsV0vw32WpIFUebjVI0emD0l+kZW/OxSAOqfrKf4 Dx9U246eQWuzC5tF71Z9htzuWszT1cLRuVw5hg07ru zP5L+RGhi7l625ZSAsLi3nGnfm0DtWPrcWGgF5uocRR4tRUJFX8geUqYPgrjP61oy0Xt3pCVF1Fa5N13 zl7L6Er0dLtaXH5y6+aKrTEsnb2AM9wQsX7ZP+h65nvyFvjoxYehYjYgg3rOSwT7cpfSdyfcC4C+4Rx4 q0QWxUhv2W/dAB1RcxOs4f/S5DT5DETw0ruLDjAmYP VZP/rgynh30W0m+/+/diARGlUdB/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/j/B/n/zj/f+jhpfl6u6Yi1kQsOZi5wjiu5XSu/lWEYyPq4ilq [file] 8ADyuBwpfYcOe+B/AGl+PcC23UmbyEKzQTFMimBRcsJdlxBufVF1I/w/Miguel Ángel/0FnsbA6mByihqGZtVKXE [file] +ciwwpatBPQ5hthmFUo7i279qlCkv4u71f6utYyV1mCDxEZPRewyFOb5+e5T28Djzl7I4Ln82ZqmtE or8o6/1AKQfWiTdoDag6pVW7rfSLvDwKJNKd+0C1x5ya8U6+Wpm4gLBaE4+ZvbTxBwGx0oS3aYBo/eLj 8JC+FC9NC4PNLOj+FGdmBdGTMOtkq+H2K9WblP3TkE ikQepT6QOW8oRvfWJ7eyKJ/YiE0hLJ3MHMv/qNXjfiDfL+HQDW9/U1OR1BOAWwKeeRvmGwFvpWRdR/DT h3xUQKl9LFuXq9QekIxk9gMi17I/F3ouJXPz1+5qh+7Nd2xufoc8czm91KP4C8A+OMDL6s2Q2S0IUh87 TQxA0uKKK884DJxDxonZu4GIX5EJNHpOGZq37GV5mj ZJRoC+A2zfYzOT38OcQmQT0SQgk0cWTQiDFg3j9Sx6k3vbS7qSQm96QUVtGWZtfMf+zzoxacEgAZP+VIDEO EDITING INTERNSHIP [file] p07yCHNbs7es4J21Za27Z9QxrF12ZvoJYDAu3zk+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 [file] OG68bV1IomavZMBgrR8wMNT+FkdsQsjc5XGtAKrreLaJ8N7zKJ4rnifJ3TGkUwKRhWYEExURZPeVZ/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 KIPNQ333OU3lHSy5OLB2J0OAs1egyqUTbeWhtd5ZhD 9yZEQ39Ar3GfLJs8TIpn9YRmXGYs/5dH8iepK1elZneKkmizYsNAlZJ+26fMULPuK20VlYGS6sRDteR0 33Vvwq2AZazGYrbAaTlCIewOy4BA3/Fre6Q1BULt22M55Z9AKFvqt/ax3GVOVwvmeD0PTjJ17pKFCXwn OaDnNtikIWZlt/qGHKfIrPGI6MDFaBkd0Lq0/W9DbJ JJ7DTTG02KUdZ0OhgCSQV5uTvfrrUpJQnju7uicQZiKhxbTR7XMfP38cDCMfmaBFtYvhO97gjVQDsd5R PQlTUa4UUkZmtZfQcGdK++HTU0tYlpv9526dbd7W1PL5PMALvHEnbWZQGTGuefyL9QN1UPfEINvwDVVj uJMBR3BxZQq0X5HQgSs0Ykbn26pnXCRJD8CIJZ71tL yPh5M3BSPqGy4RvOaDF7hLYiAfHHt4ewoyPFCNda+fxNXf9kaMQfTtULUwhDyEXEPeHe0COw860eaZWc th3G4aHoivP+vRIuktDzQzDXWJpM6a63jwRQzD8PE924WpliC173jSXlMSsec278gO5ioC0BG0J7zzYZ lw/nGHLmbu2lmACFe6jYUxClJCFqHFgShiWc13noK7 Zka1nCKFd9xpDgjXLs6Pkr0n/DM9EOfz5z3xR81l7ORUkFPJ2xQEyXXpHFC+y/I5+1dKwnzex3tc0+Wilfredo [file] Efraín/TZX2267LAbh97UYUtI7KjwHruW6KW7eIew3D+hW8L97qx7yw52lYQR0jkfu9IQf7DXW3gky+bvog [file] keD8vYOWf0V7FMNSWKWJVPPUG9FzDrMWSONAaABHBlVlVWHeD9NYI+BLhlT3ZUFVT8QUIIFslsGdL4Qj U3B3F9GjMBN5J7SzrVEw8jW5Nip3HiIEWuPKSoKO9crxQpPCKvGb3TvHrcPOEfS0C4rUPyU5hNOBErXe VcMEG8DLFgLl0tgIBvPM6ZCrwpS7DqVUSyTZOTYGHK Akx+DRFKH6LdjnbYAK1zJiJ5dyjFGFA4rMjGVApVoDyZJBCKTGCrxXRLFpIoHcQrj8h7LIOVDmHuP3kN 3JiOWmRUHUSjm1MWIeOQNbCFYb3TNU0wi1RfKGYqUQzmlqNdGqwQABqzsFBelGdeRKDEXgVcXgPmBCXP AjNlTZ5Z ID Date Data Source [id number] 12/09/2019 12:00:00 AM EDT [facility] Maxine Zhong MD Patient Name: SHAHID MARROQUIN [place]job Date of : 1965[place] [address] Date of Exam: 12/09/2019PH#: Fax: [phone] ____EXAM: ABDOMEN AP (KUB) X-RAYCLINICAL INFORMATION: [...] rce(s) Supporting Document(s) ID Date Data Source [id number] 12/07/2019 12:00:00 AM EDT [facility] Jarred Arreguin MD Patient Name: Christi MARROQUIN [facility] Date of : 1965 [address] [place] Date of Exam: 12/07/2019AMANDA Leach [id number]#: Fax: [phone] EXAM: ABDOMEN AP (KUB) X-RAYCLINICAL [...] rce(s) Supporting Document(s) ID Date Data Source [id number] 12/05/2019 12:00:00 AM EDT [facility] Ilan Ha MD Patient Name: ELENA [id number] Date of : 1965[address] Date of Exam: 12/05/2019AMANDA Ojeda [id number]#: Fax: [phone] EXAM: ABDOMEN AP (KUB) X-RAYCLINICAL [...] rce(s) Supporting Document(s) ID Date Data Source [id number] 11/15/2019 12:00:00 AM EDT [facility] Wendi Grahamp Patient Name: ELENA [id number] Date of : 1965[address] [facility]: [facility] [id number]#: Fax: [phone] EXAM: CT LUMBAR SPINE WITHOUT [...] There is 2.5mm of retrolisthesis along with mpual-wg-vfbqdsge discbulge/protrusion, mild disc space narrowing, endplate sclerosis, [...] rce(s) Supporting Document(s) ID Date Data Source [id number] 11/01/2019 11:30:00 AM EDT [facility] Name Value Range Interpretation Code Description Data Moni rce(s) Supporting Document(s) Follow Up [facility] DVILFq3cNtYKChUfYLIuCmcRCKocECmaEWMaZ4V0WXdyOx7RRTydvpOsIDOfAz2+LVVtUN1rzl1nJRYu gMy [file] Nnxqy7oseri0VTu88y18Ew/b67E74vbSViQPMrZ6k8MZJen0BV4pcdhJ0DybB5H/TnIsjUPB3OWuP/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 [file] JELRGkvb5KRGpC5g6PlEzhB6ZvZaJFdiG6Ci/jH8R2gEmdES+2akF5La0gSr6OEWz/5flsU/vp marketing services and skin/w1hGV [file] Ann-Marie+1oc6Q8w3XKRKhKDSJyJUQCBjxaSgTnIg8v6VkiWLWCi8UA2q0RwOLt62Xg9Cc9W0CakMxjc0R2eP [file] T9eejn7pU/L+9ExX2irE9bsZHFUyX6v0jm1SjDyhaRL31v+5fbZJY+kennel assistant+Vwrr7/argvBK9SgwU7mSJX [file] production control scheduler/zLJ5QJ3V1/QBFL/PtyHtgpvkzSiNO+fWRJVw2o5TZlW6WNs80DEmc/z1mlLlFyZcvzvyiIN7s751 [file] Z0KUdQCiF8p48rp+94Q/mFTko/JORGE LUIS/CPv1yfYfAfFw oqsQACPTqnn4mCGyT0Euw15mXV7VThBvj0CJyRg29nWXIFYGAsvUlr48KrEfFc3TmGSjofq7W6rdi09U 1KnhSHVzd8ndSrlnxDm9ehZOYm5SHNr02Efme4na6bGS+mAuFe/ParRGwptuG9fSvK9IJ75t60kLnL4R EcE7rtgf5jxNn6w5sL0fF9kOIesJz720kF0cLBfZ6Z NmKaCcn7AjQ0F58OJLJX0F+dLWjA5ygv7xPGN6AgkZCY6SKbj4+sDN+klLQHTq68bE0X8XHP3rqC/SDb yoXfED+JgJHsY7hhFoBxLWzO89/BeXn4b/HaL60FujW9b6X3l3C0Air2zu/j7da89KtP3rZy1TGXtW/n TJFkpqZlgUdV4xrgCP6y/gTodyVPZHzi66MLobOV8/ XBqf2RdKI5b5wQ+ohQLGRbNAFKpO8SS5a1xInv7YqXGVbWUZgkTgWi5NFTNno36x8Ut2L+bHOkh3aiWN +/aJmLdAW3tMqm0OcobcFaYobwzviSFET+F/Gnu0a61rBt3on39mWnNlWy/sLjqFFeM9DgCOLRXkl9dE v2ppcE8bfqkxg2iZd9VmYna1BTnYn44urb3f6oP0mI WG2ohKXs3f5kgZy/DJ4xm6w/8LQHHP3w8abv7Guz9ghrturyWae/cVLMuxTe7ExqVHVnnLBizPa4ffSA CCReVivH2FcAK/DDfi+qbVKkCM//3wYeqT1ihiNR+Ddssi2ELAM2RvtY6sfyWDJL+gJbAJe0vHlOD/GUILLERMINA [file] 5XlhC3GdqQRKQpjZlbhXrNoerHZAE4+t98cfGpy2T8DDI/S+9xgG7v0chdYlk2UkO/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/8TGxJMVl48T [file] wJrvc6Xxw5JKfFJ/9si3C76m+7XWSUxFEKC7kjq1N/oShtkLYvNfIzmwEWGK0FjyCr+/José Manuel+ISet/RkA [file] VIDEO EDITING INTERNSHIP+L9MGQdBUXNTKB/YDvLbHOBjMQvgmWSEUw/j7qKeBSxUbo1lsSfnHduSQMgXFV4zSCBaaPjUXHjPaJ [file] 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+e9P1X4MYnEAsK4a/+fKqTc/Rmr/0UKjGNwKsih9t3z5hahgYpV2RaQUZJhdZ50ZQP5k4AxcsYmjpc [file] 3HaJS0PH5rmgpRXYwSMoRsYfKQy+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/XL2/7krxfiQjNGUB5/pEaXnh7S10lti7Ypz12W2y/sfD89FJh [file] 5mVYveE8OZUxDWrZCDxXt2SKeRZsm+LFabtQNTp8QtjQ7A0L/Dulce Maria/ZMFBzyml2BmO5c4MZGdmvfSaoJE [file] vp marketing services and skin/uay26EEXU5Lt9jJp+KUdxSVUYM/9/umWYosv1rr6kcG90oIzwtb/0StbahXmzmk9v6kyToOZBypcg [file] 92NNM/tro1gg/TE5032RV2mp21wSWoIx6Kxxr11AdbdN70Q7F4ijbH1EET3IZtc+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/NvLg2US5HPWkB [file] /dpFutLX50LL5NykXQP0g7zxj6L/1+K+HlTzTf5 [file] Nt/I/OEGEBUysZZBvRQi9SLOn15i0KgNWpWska [file] 2MTzxm90vQx1NLm5FOOORLZOYKI9qRRhN8lYENScBXmdXOznPvOMn5Ni6gPJtLIHuv4ln7zxaVaCu/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 9Ei3a6GZRfiiDdUbQgrFcDkOoQUzWC544uRTjEAKYM eUinW6e6cdYpCcg/wmwCMrT1c5lNLHZNNozEXf+i2BXD/fk+EPlM63AFRV98Qtmlz7HzdbL4mP4+n21N UJh68O1PQ6BVWYMwfY2qzNM9KbHLc4u+kzb3GKFEDhKyYAkRpZNRb9gx17vIsmST2+PMH+dXS3PzSHhU nDEb75Kp/pm9cSln+G8DuT7f6Pb4oAWaYbNx/lEFFG /OOFWM3Jcwp9p7n8b7BTyq6FtAwdktFKlXkNR6DQ6zC3uzJVUNn1k+CP5MR4aW5dnJIp8YsQexiPc+cQ hl6jo3OiE5/5kcbDas+UPvMmVQ2qZmJF68SiZ7t03IEU9EbIvkXtD2ZT+MnoOS2zmwzYS4l4SP0rlrSi lT/mWe3mv0/P3fizP9+j+AQrw/xD0A+uPF2hg2KJ6o wqSv0JODog0DirwxuqFkiCBFQp72Q4Rd4XAeGfoFddlb66dzg/AOep492LGLhNmcxM3iCcO6LV3CMOrG ozHPPw8QyFC+rfkdJlWEacsQR/SG43vxQd8AFIjCHh1NGrhXdwkfmFl68I0szrxGqymrY3s268xEJ9aM liwo35ajchrMwNxFT5fmf/ZX9n37SQrwbI0zaTWxEo LRhADzmwwlbl2SIwxt/q6qTdkzlcKGzE+MjK1UiZnJXdkXsgC/aMVatp/cbZ51Trf8exLd6aBag3ff0Y a6n3CYmW+tF5+FybI+mMjKYX5GnZAiRL+9+L51brM+WFM1i2DrkPUyzwyrlTXGzScBLCl52RLKKxij53 j3lklmtw96FWQGSkd4utkNphluXdd9emsqeqwlwoXv [file] N6RiTQR+dAeSAM0pSIWJwwSQHiunwBOLbF6qY1syHziY3/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/wFKQhZ9a3jLVc9I3ygsoiAgh793RXr [file] LClC1Kh3XD9IY/bfFDRzai3BLa1NcEX9sPQk9td+2B7f49dKJrh6nlM1nvk3TJ3jxI+4/nSHG1ceM+Coordinator Of Online Programs [file] 3jorWmL1U4qYFcs/CnHFqFQP4VNPDwI7Z3c1ElOBLweQvJk11dI4oIwL24i2qyyYYw4eSMHsG68B/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 The performance characteristics of this product have not been established. Results should not be used as a diagnostic procedure without confirmation of the diagnosis by another medically established diagnostic product or procedure. Performed at: - [facility] [id number] Plant General Manager: Gay Leyva MD, Phone: [phone] ID Date Data Source [id number] 10/26/2019 02:37:00 PM EDT [facility] ([facility]) Name Value Range Interpretation Code Description Data Moni rce(s) Supporting Document(s) 32 ng/mL (31-100) 25 HYDROXY VIT D @ [facility] ([facility]) A REVIEW OF THE LITERATURE SUGGESTS THEF OLLOWING RANGES FOR THE CLASSIFICATIONOF 25-OH VITAMIN D STATUS: VITAMIN D STATUS 25-OH VITAMIN D DEFICIENCY <20 NG/MLINSUFFICIENCY 20-30 NG/MLSUFFICIENCY 31 - 100 NG/MLTOXICITY > 100 NG/ML A PEDIATRIC REFERENCE RANGE HAS NOT BEENESTABLISHED USING THIS METHOD.Unless otherwise specified, testing performed by Laboratory [facility] [employer] [facility] [address] [place] [address]

ID Date Data Source [id number] 10/26/2019 02:37:00 PM EDT [email or web address] ([facility]) Name Value Range Interpretation Code Description Data Moni rce(s) Supporting Document(s) 42 U/L (25-115) [facility]YLASE [facility]) Unless otherwise specified, testing perf ormed by [facility] [address] [place] [address]

ID Date Data Source [id number] 10/26/2019 02:37:00 PM EDT [email or web address] ([facility] Name Value Range Interpretation Code Description Data Moni rce(s) Supporting Document(s) 4.4 g/dL (3.5-4.6) ALBUMIN [facility]) Unless otherwise specified, testing perf ormed by [facility] [employer] [facility] [address] [place] [address]

ID Date Data Source [id number] 10/26/2019 02:37:00 PM EDT [email or web address] ([facility] Name Value Range Interpretation Code Description Data Moni rce(s) Supporting Document(s) 49 U/L (12-78) ALT (SGPT) [email or web address] ([facility]) Unless otherwise specified, testing perf ormed by [facility] [address] [place] [address]

ID Date Data Source [id number] 10/26/2019 02:37:00 PM EDT [email or web address] ([facility] [employer] [facility] [facility] Name Value Range Interpretation Code Description Data Moni rce(s) Supporting Document(s) 25 U/L (11-39) AST (SGOT) [facility] ([facility] [employer] [facility] [employer] Unless otherwise specified, testing perf ormed by [facility] [place] [address]

ID Date Data Source [id number] 10/26/2019 02:37:00 PM EDT [employer] [facility] [facility] Name Value Range Interpretation Code Description Data Moni rce(s) Supporting Document(s) 0.94 mg/dL (0.60-1.00) CREATININE [facility] ([facility]) GFR INTERPRETATION [facility] ([facility]) --NORMAL KIDNEY FUNCTION OR MILD DISEASE - GFR >OR= 60CHRONIC KIDNEY DISEASE - GFR 15 - 59RENAL FAILURE - GFR <15 Est. GFR calculation based on the MDRDstudy equation, which assumes a steadystate for creatinine. Est. GFR should notbe used for medication dosing.Unless otherwise specified, testing performed by [facility] [facility] [place] [address]

>60 (>59) GFR [facility] ([facility]) >60 (>59) GFR ( AMER) [facility] ([facility]) ID Date Data Source [id number] 10/26/2019 02:37:00 PM EDT [email or web address] ([facility] [employer] [facility] [employer] Name Value Range Interpretation Code Description Data Moni rce(s) Supporting Document(s) <0.3 (0.0-0.5) C REACTIVE PROTEIN @ [facility] ( [facility]) Unless otherwise specified, testing perf ormed by [facility] [facility] [address] [place] [address]

ID Date Data Source [id number] 10/26/2019 02:37:00 PM EDT [facility] ([facility]) Name Value Range Interpretation Code Description Data Moni rce(s) Supporting Document(s) 2 mm/h (0-30) ESR [facility] ([facility] Unless otherwise specified, testing perf ormed by [facility] [facility] [address] [place] [address]

ID Date Data Source [id number] 10/26/2019 02:37:00 PM EDT [facility] ([facility]) Name Value Range Interpretation Code Description Data Moni rce(s) Supporting Document(s) 127 U/L (65-230) LIPASE [facility] ([facility] Unless otherwise specified, testing perf ormed by [facility] [facility] [address] [place] [address]

ID Date Data Source [id number] 10/26/2019 02:37:00 PM EDT [facility] ([facility] [...] % (0.0-5.0) EOS % [facility] 9.6 % (0.0-8.0) Above high normal MONO % [facility] ([facility]) 3.8 10*3/uL (1.8-7.7) NEUT # [facility] ([facility]) 1.1 % (0.0-4.0) BASO % [facility] ([facility]) 1.8 10*3/uL (1.2-4.8) LYMPH # [facility] ([facility]) 0.6 10*3/uL (0.0-0.8) MONO # [facility] ([facility]) 0.1 10*3/uL (0.0-0.5) EOS # [facility] ([facility]) 0.1 10*3/uL (0.0-0.2) BASO # [facility] ([facility]) Unless otherwise specified, testing perf ormed by [facility] [employer] [address] [place] [address]

ID Date Data Source [id number]/26/2019 07:19:26 PM EDT Laboratory [facility] Name Value Range Interpretation Code Description Data Moni rce(s) Supporting Document(s) WBC 6.4 10*3/uL (4.1-11.0) Laboratory Allian ce of [facility] RBC 4.49 10*6/uL (4.00-5.40) Laboratory Chao an[facility] of [facility] CORE HGB 14.3 g/dL (12.0-16.0) Laboratory Allianc [...] - CORE MPV 8.6 fL (7.1-10.7) [facility] [place] - CORE NEUT % 59.5 % (35.0-75.0) [facility] [place] - [place] LYMPH % 27.5 % (16.0-52.0) [facility] [place] - CORE MONO % 9.6 % (0.0-8.0) H [facility] [place] [facility] [place] - CORE EOS % 2.3 % (0.0-5.0) [facility] [place] [facility] [place] - CORE BASO % 1.1 % (0.0-4.0) [facility] [place] [facility] [place] - CORE NEUT # 3.8 10*3/uL (1.8-7.7) Laboratory [facility] of [place] - CORE LYMPH # 1.8 10*3/uL (1.2-4.8) [facility] [place] - CORE MONO # 0.6 10*3/uL (0.0-0.8) [facility] [place] - CORE Eosinophils [#/volume] in Blood by Automated count 0.1 10*3/uL (0.0-0 .5) [facility] [place] [facility] [place] - [place]ORE BASO # 0.1 10*3/uL (0.0-0.2) [facility] [place] - [facility] ID Date Data Source [id number] 10/26/2019 07:40:04 PM EDT [facility] [place] - [facility] Name Value Range Interpretation Code Description Data Moni rce(s) Supporting Document(s) ESR 2 mm/h (0-30) Laboratory [facility] ID Date Data Source [id number]/26/2019 07:59:31 PM EDT Laboratory [facility] [employer] Name Value Range Interpretation Code Description Data Moni rce(s) Supporting Document(s) 25 HYDROXY VIT D @ 32 ng/mL (31-100) Laboratory [facility] A REVIEW OF THE LITERATURE SUGGESTS THEF OLLOWING RANGES FOR THE CLASSIFICATIONOF 25-OH VITAMIN D STATUS: VITAMIN D STATUS 25-OH VITAMIN D DEFICIENCY <20 NG/MLINSUFFICIENCY 20-30 NG/MLSUFFICIENCY 31 - 100 NG/MLTOXICITY > 100 NG/ML A PEDIATRIC REFERENCE RANGE HAS NOT BEENESTABLISHED USING THIS METHOD. ID Date Data Source [id number]/26/2019 08:18:02 PM EDT Laboratory [facility] [employer] Name Value Range Interpretation Code Description Data Moni rce(s) Supporting Document(s) ALBUMIN 4.4 g/dL (3.5-4.6) Laboratory [facility] ID Date Data Source [id number]/26/2019 08:18:02 PM EDT [facility] [employer] Name Value Range Interpretation Code Description Data Moni rce(s) Supporting Document(s) ALT (SGPT) 49 U/L (12-78) Laboratory [facility] ID Date Data Source [id number]/26/2019 08:18:02 PM EDT [facility] [employer] Name Value Range Interpretation Code Description Data Moni rce(s) Supporting Document(s) AMYLASE 42 U/L (25-115) Laboratory [facility] ID Date Data Source [id number]/26/2019 08:18:02 PM EDT Laboratory [facility] [employer] Name Value Range Interpretation Code Description Data Moni rce(s) Supporting Document(s) AST (SGOT) 25 U/L (11-39) Laboratory [facility] ID Date Data Source [id number]/26/2019 08:18:02 PM EDT Laboratory [facility] [employer] Name Value Range Interpretation Code Description Data Moni rce(s) Supporting Document(s) CREATININE 0.94 mg/dL (0.60-1.00) Laboratory Allia nce of [facility] GFR >60 ml/min/1.73m2 (>59) Laboratory [facility] of [facility] GFR ( AMER) >60 ml/min/1.73m2 (>59) Laboratory [facility] GFR INTERPRETATION Laboratory [facility] --NORMAL KIDNEY FUNCTION OR MILD DISEASE - GFR >OR= 60CHRONIC KIDNEY DISEASE - GFR 15 - 59RENAL FAILURE - GFR <15 Est. GFR calculation based on the MDRDstudy equation, which assumes a steadystate for creatinine. Est. GFR should notbe used for medication dosing. ID Date Data Source [id number]/26/2019 08:18:02 PM EDT Laboratory [facility] Name Value Range Interpretation Code Description Data Moni rce(s) Supporting Document(s) LIPASE 127 U/L (65-230) [facility] ID Date Data Source [id number]/26/2019 08:18:02 PM EDT Laboratory [facility] Name Value Range Interpretation Code Description Data Moni rce(s) Supporting Document(s) C REACTIVE PROTEIN @ <0.3 mg/dL (0.0-0.5) [facility] ID Date Data Source [id number] 10/26/2019 09:15:00 AM EDT [facility] Name Value Range Interpretation Code Description Data Moni rce(s) Supporting Document(s) EGD [facility] DLODQq1cWuTFViYoMQLqPypBQAayBWeiTJEwB6F6ZYdpOp8MKUgewyHeAXFtUv3+GDTfRN5lap5xXJFm gMy 4jVHJxJrpxY2ElYNEqc64FQTJnHQcVNpFgQnArOJU1FDHbCuKrURS7QaMcLagbKJ0fMYW8GHZiQEsjJF IjHGAsHzSbJRLwZQ5yIBilPTtuXi6GNK5js3TgVTDhYBImLznVAHaaBJdlUGNcJYLuKWUzC107btMsZf 1VjPKcBHk5QCGhOqZ8FQWrIuT2EFMeJo7wCeKtl5Mc A4KbRQu8J7gCTypoI3LmDEghAH2oQQV1YUIjQb3RaIstLHjrIKZHT3nfJiYbHQVePDMLYa9+Pj4+DWVu ZN2aic87AJGoy1OiMOe3N6L7tXSoN1VrM0MeOSUuvUHVc6mcJeNgPQT9USEjQhrqIM7NURGcrLObUGWj XRqbRP3sraWznEJ0OD8UfIvlBIQdYBKXIm7+Pi9QYX ZlgwOpUxNeAVOpM58nmWPyiOSqHpruDDUXCQ8+NNEoMJ5fqr06PSXpc6PrWRe8V9yimkm9sSXiKEToYO LuKcGgLDUxJB8tRL0CkTL4vOWmTU3OdLRxAO2HlVWuPE4BY4BlTBX5T3UriOJlyhJvT4UwJJAnJRSys6 YhVD2OQ3VBMJGiFSGiO2GatE7iT6HcY1ZpZ9Nlstzg SYOQXj9BjMP1uLEkZCIwS0bybBqviUQiQAbnE5IwgCNHZXOEq49zx07iotTfIB4+u0WxBCAxMBz56ts8 ZVAcX/zcPBCFHcx3RVkzFDVoZlZMlv5kZ7htCzF8BLu7KqqfbMS1C2kRkEXY2//vrzf1trm3pv/eD+/z 7XXEvq4+v3fc8qRk3wNq7LTQZBrtCRVQeOSHKUPA66 mdfNk5HMmjuJsphYbV+WKyLRFScJSgb4tA3F4Rs9FKpfCaEsB19+Ju7bek7xer4kPz3+Lm/CclNN3fx8 ZHQyfGwCDmfEv+lvP/SM68NTjmaGuggqWTZgOERvDLP+AaB1PGYKZqYgcZHW9wTQtXPjNxq6Aif1Q4PU CPDXiFAAS+QgQiISEi/u31+xfUNTCFry0S9BDVE1zH [file] UXK4j8hb+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/NHXVrF53azqFf9fnsu7iy/Wg2ID /CabK/XdiOgJnnsc9v3hdb2K/+JvGzbCuTCrNvVfx2mQKFs5qbbxUMbPZlyXOuo/fpv69yl1Q+VH2iBM zXlwNAghsLTcH6L+uEnMA/mGUDOHIeU05By62lr4AB 0AUtVSLUg7xve+mlLlMOD3mBulk9Cz99b95WYnVZLausdTkxNHNhj2Xu2VbYD+4JsIdOMqP2qyKeO/H6 vww9p5nt1s/k7n3yzxZjIslsudtVjDrAlw7Om4OL/Q+wPH1lOhBrjYYc6/lD6tkzcGlIqMJB+8s3ExVb mCiKerAWbTdeAeLH4x9p5OWmjvBJ++phcybrILdYpz DA/+eu4UXrlXlnY0sl2JNQ+IvT3VfJ12J1mNGkcZEczTZUxqdJadRFrlF5lk5MA+1cATfFl7b0Yriac [file] NoN5m24VReUZXlupybZ5u2vfLijcxyiNiEXI1kQ/jtBbs8EFUlv9mJjNJpubt6YniMd1OcrWZrPO4/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 [file] 9Uud3wLD6DEsEnGJIWiRxvqpbAAWBfP9ENlwrrM4qPj1unbeMHGQx2qG/VbtRfuWF2T3f+160b4iY+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 k8e5UmCYEtApBBqiiHyiPSA2ISIKmbhgRFqQFyv5un xfsPixDWX8HWphbDVYOBe5Tt6hiPyo7yGBgHcMB36eO7q96tO2wbpoj1Q4kM+cYkppzpd0l79nnzoZ6Y 7kmLLD2U9Q6I8dN2YCyfVDdJkvAYX9zFcyDEA5FcHb6yYjiGB/IuctO18Pig6tE6q1o0x610i7C5dQbW l3DT21AUB61K3RttAKNIYGSqE4CbDshheQkQnZbjwn E6K39Tz63plCZlaWHmXQl+WybRCIFVqhiOagBeJ9jPdRw4acEAW9fen7vtvhAAsALt+OHGKyH0y/MpSE C0XXH/lowW9fLzXABURTHz3x8l2bA2+Vu6Bu4AZnbs3Lzl2QEJRGdroxt6PeKCrCjjtUHuYtMt+88X5V 98g3mgdQFXbOyIS16aLqkO3JsdhIE26/baaKpk5Agt cgLwWNRUl9MRnn15t53PG8DOismRXx775qmvCTjNV6P+h3Qh5E6EbRN7C/lnEJycp1ZyrSQr1MHdSjkj tc/1dWJWqNRidCdjggWKmSjXVcEdsOnjtaZph6xttzqugE3iLuqF/cE/guillermina++PUT0D0DqyavEXja6i5o4 [file] v+3/yeD2Vwv3/JToCeO5ixDaikorSQAwn5Xo2decrA+CWXQtdIXe9lc89SzyL48SNyaGfj/v4+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 ID Date Data Source [id number] 10/25/2019 02:38:00 AM EDT [facility] FASTING: UNKNOWNReceived: 10/24/2019 at 19:26:00 QPT: [facility] [place], [address], [address] [place] [address], [id number], Juan Arevalo MD Name Value Range Interpretation [...] findings,re- testing should be considered in [facility]. Laboratory test results shouldalways be considered in the context of clinicalobservations and epidemiological data in making a finaldiagnosis and patient management decisions.Please review the "Fact Sheets" and FDA authorizedlabeling available for health care providers andpatients using the following websites:https://www.[employer]com/home/Covid-19/HCP/NAAT/fact-wshyu5bleoq://www.[employer]/home /Covid-19/Patients/NAAT/fact-antjw4Ifki test has been authorized by the FDA [...] about COVID-19 can be foun jenifer the [employer] website:www.[employer].[facility]/Covid19. Your request to have a duplicate copy faxed has been acknowledged. Queued to: [id number] ID Date Data Source [id number] 10/21/2019 07:14:02 PM EDT [facility] INFORMATIONPatient MRN Name Date of Age Gend*PT [id number] Elena Marroquin 1965 54 years F ---PT Location Admission Date/Time Visit ID Attending Provider --- --- --- --- EPI ID CSN Admitting Provider [id number] ---Name: Elena MarroquinDOB: 1965Date: 10/21/19CIED Remote CheckImplanted Device 07/11/2019Device Yard Operator MedtronicDevice type Single Chamber ICDMRI Conditional Device -Device was remotely interrogated and the following were evaluated:Battery statusSummary arrhythmia logsNew observationsFidelity of the EGM signalIntegrity of leads and lead impendence were reevaluatedConclusion:Normal ICD function.No significant changes continue to monitor.Signature: Law Vasquez MD, [facility], RSCardiac Electrophysiology and Arrhythmia ServiceDate: October 21, 2019Time: 7:13 PMThis document or parts of this document, were dictated using [employer]. A reasonable attempt at proofreading has been made to minimize errors.Please call with any questions or corrections. Name Value Range Interpretation Code Description Data Moni rce(s) Supporting Document(s) ID Date Data Source [id number] 10/21/2019 07:14:02 PM EDT [facility] INFORMATIONPatient MRN Name Date of Age Gend*PT [id number] Elena Marroquin 1965 54 years F ---PT Location Admission Date/Time Visit ID Attending Provider --- --- --- --- EPI ID CSN Admitting Provider [id number] ---Heart Failure Management ReportPatient has a history of ventricular tachycardia. According to this report,patient has not had VT/VF. There is not evidence of AT/AF. In regards toOptivol, patient has not crossed fluid threshold. Average ventricular responseat night is 65.Marge Mitchell NPThijerzy document or parts of this document, were dictated using COVEGAware. A reasonable attempt at proofreading has been made to minimize errors.Please call with any questions or corrections. Name Value Range Interpretation Code Description Data Moni rce(s) Supporting Document(s) ID Date Data Source [id number] 08/19/2019 01:06:00 PM EDT [facility]) Name Value Range Interpretation Code Description Data Moni rce(s) Supporting Document(s) Coronavirus 2019 Nasopharygeal Laboratory test result [facility] ([facility]) Testing was performed using the eliza(R) SARS-CoV-2 test. This test was developed and its performance characteristics determined by [facility]. This test has not been FDA cleared [...] or revoked sooner. Performed at: [facility] [id number] Plant General Manager: Susie Cantor MD, Phone: [phone] Not Detected ID Date Data Source [id number] 08/19/2019 01:06:00 PM EDT [facility] ([facility]) Name Value Range Interpretation Code Description Data Moni rce(s) Supporting Document(s) Respiratory Panel Laboratory test result [facility] ([facility]) This respiratory PCR panel detects Influ nalini A H1, H3 and 2009 H1 viruses, Influenza B virus, Resp iratory syncytial virus, Human metapneumovirus, Parainfluenza virus 1, 2, 3 and 4, Adenovirus, Rhinovirus/Enterovirus, Coronavirus HKU1, NL63, OC43 and 229E, Bordetella pertussis, Mycoplasma pneumoniae and Chlamydia pneumoniae. NEGATIVE by MULTIPLEXED NUCLEIC ACID PCR ID Date Data Source [id number] 08/19/2019 01:06:00 PM EDT [facility] Name Value Range Interpretation Code Description Data Moni rce(s) Supporting Document(s) SARS CORONAVIRUS 2 RNA [facility] This lab was ordered by [facility] and reported by [facility]. ID Date Data Source [id number] 07/26/2019 01:05:00 PM EST [facility] ([facility]) Name Value Range Interpretation Code Description Data Moni rce(s) Supporting Document(s) THC negative Thc [facility] ([facility]) Amphetamines: negative Amphetamines: [facility] ([facility]) Opiates: negative Opiates: [facility] ([facility]) Cocaine: negative Cocaine: [facility] ([facility]) Barbiturates: negative Barbiturates: [facility] ([facility]) Benzodiazepines: negative Benzodiazepines: AT ROGELIO ([facility]) Methamphetamine negative Methamphetamine ATHE NA ([facility]) PCP negative Pcp [facility] ([facility]) MTD negative Mtd [facility] ([facility]) OXY negative Oxy [facility] ([facility]) ID Date Data Source [id number] 07/26/2019 01:05:00 PM EST [facility] ([facility]) Name Value Range Interpretation Code Description Data Moni rce(s) Supporting Document(s) Amphetamines: negative Amphetamines: [facility] ([facility]) Cocaine: negative Cocaine: [facility] THC negative Thc [facility] ([facility] Barbiturates: negative Barbiturates: [facility] ([facility]) Opiates: negative Opiates: [facility] ([facility] PCP negative Pcp [facility] ([facility] Methamphetamine negative Methamphetamine ATHE NA ([facility]) Benzodiazepines: negative Benzodiazepines: AT ROGELIO ([facility]) MTD negative Mtd [facility] ([facility] OXY negative Oxy [facility] ([facility]) ID Date Data Source [id number] 07/26/2019 01:05:00 PM EST [facility] [facility]) Name Value Range Interpretation Code Description Data Moni rce(s) Supporting Document(s) THC negative Thc JAIRO ([facility]) Amphetamines: negative Amphetamines: JAIRO ([facility]) Opiates: negative Opiates: JAIRO ([facility]) Cocaine: negative Cocaine: JAIRO ([facility]) Benzodiazepines: negative Benzodiazepines: AT ROGELIO ([facility]) Barbiturates: negative Barbiturates: JAIRO ([facility]) Methamphetamine negative Methamphetamine ATHE NA ([facility]) OXY negative Oxy JAIRO ([facility]) PCP negative Pcp JAIRO ([facility]) MTD negative Mtd JAIRO ([facility]) ID Date Data Source [id number] 07/26/2019 01:05:00 PM EST JAIRO ([facility]) Name Value Range Interpretation Code Description Data Moni rce(s) Supporting Document(s) THC negative Thc JAIRO ([facility]) Amphetamines: negative Amphetamines: JAIRO ([facility]) Cocaine: negative Cocaine: JAIRO ([facility]) Barbiturates: negative Barbiturates: JAIRO ([facility]) Opiates: negative Opiates: JAIRO ([facility]) Benzodiazepines: negative Benzodiazepines: AT ROGELIO ([facility]) OXY negative Oxy JAIRO ([facility]) Methamphetamine negative Methamphetamine ATHE NA ([facility]) MTD negative Mtd JAIRO ([facility]) PCP negative Pcp JAIRO ([facility]) ID Date Data Source [id number] 07/26/2019 01:05:00 PM EST JAIRO ([facility]) Name Value Range Interpretation Code Description Data Moni rce(s) Supporting Document(s) Amphetamines: negative Amphetamines: JAIRO ([facility]) THC negative Thc JAIRO ([facility]) Cocaine: negative Cocaine: JAIRO ([facility]) Opiates: negative Opiates: JAIRO ([facility]) Methamphetamine negative Methamphetamine ATHE NA ([facility]) Barbiturates: negative Barbiturates: JAIRO ([facility]) PCP negative Pcp JAIRO ([facility]) Benzodiazepines: negative Benzodiazepines: AT ROGELIO ([facility]) MTD negative Mtd JAIRO ([facility]) OXY negative Oxy JAIRO ([facility]) ID Date Data Source [id number] 07/26/2019 01:05:00 PM EST JAIRO ([facility]) Name Value Range Interpretation Code Description Data Moni rce(s) Supporting Document(s) THC negative Thc JAIRO ([facility]) Amphetamines: negative Amphetamines: JAIRO ([facility]) Opiates: negative Opiates: JAIRO ([facility]) Cocaine: negative Cocaine: JAIRO ([facility]) Benzodiazepines: negative Benzodiazepines: AT ROGELIO ([facility]) Barbiturates: negative Barbiturates: JAIRO ([facility]) PCP negative Pcp JAIRO ([facility]) Methamphetamine negative Methamphetamine ATHE NA ([facility]) MTD negative Mtd JAIRO ([facility]) OXY negative Oxy JAIRO ([facility]) ID Date Data Source [id number] 07/26/2019 01:05:00 PM EST JAIRO ([facility]) Name Value Range Interpretation Code Description Data Moni rce(s) Supporting Document(s) Cocaine: negative Cocaine: JAIRO ([facility]) Amphetamines: negative Amphetamines: JAIRO ([facility]) THC negative Thc JAIRO ([facility]) Benzodiazepines: negative Benzodiazepines: AT ROGELIO ([facility]) Opiates: negative Opiates: JAIRO ([facility]) Barbiturates: negative Barbiturates: JAIRO ([facility]) PCP negative Pcp JAIRO ([facility]) Methamphetamine negative Methamphetamine ATHE NA ([facility]) OXY negative Oxy JAIRO ([facility]) MTD negative Mtd JAIRO ([facility]) ID Date Data Source [id number] 07/26/2019 12:00:00 AM EST JAIRO ([facility]) Name Value Range Interpretation Code Description Data Moni rce(s) Supporting Document(s) ID Date Data Source [id number] 07/26/2019 12:00:00 AM EST JAIRO ([facility]) Name Value Range Interpretation Code Description Data Moni rce(s) Supporting Document(s) ID Date Data Source [id number] 07/26/2019 12:00:00 AM EST JAIRO ([facility]) Name Value Range Interpretation Code Description Data Moni rce(s) Supporting Document(s) venlafaxine ur CMP 24960 NG/mL >=5 normal Venlafaxine Ur C MP JAIRO ([facility]) amitrip ur CMP 178 NG/mL >=10 normal Amitrip Ur CMP JAIRO ([facility]) cyclobenzaprine ur CMP <10 >=10 Abnormal (applies to non-numeric results) Cyclobenzaprine Ur CMP JAIRO ([facility]) clonazepam ur CMP 917 NG/mL >=50 normal Clonazepam Ur CMP JAIRO ([facility]) baclofen ur CMP <500 >=500 Abnormal (applies to non- numeric results) Baclofen Ur CMP JAIRO ([facility]) hydrocodone ur CMP <100 >=100 Abnormal (applies to n on-numeric results) Hydrocodone Ur CMP JAIRO ([facility]) ID Date Data Source [id number] 07/26/2019 12:00:00 AM EST JAIRO ([facility]) Name Value Range Interpretation Code Description Data Moni rce(s) Supporting Document(s) odv ur cfm-mcnc 35065 NG/mL >=50 Odv Ur Cfm-mcnc ATH KRUPA ([facility]) sn reuptake inhibitors ur ql >=50 >=50 Sn Reup take Inhibitors Ur Ql JAIRO ([facility]) venlafaxine ur cfm-mcnc 1800 NG/mL >=5 Venlafaxine Ur Cfm-mcnc JAIRO ([facility]) ID Date Data Source [id number] 07/26/2019 12:00:00 AM EST JAIRO ([facility]) Name Value Range Interpretation Code Description Data Moni rce(s) Supporting Document(s) Buprenorphine [Presence] in Urine by Confirmatory method <1 >=1 Buprenorphine Ur Ql Cfm JAIRO ([facility]) Ethyl sulfate [Mass/volume] in Urine by Confirmatory method <200 >=200 Ethyl Sulfate Ur Cfm-mcnc JAIRO ([facility]) Tapentadol [Presence] in Urine by Confirmatory method <100 >=100 Tapentadol Ur Ql Cfm JAIRO ([facility]) alcohol metabolites ur ql cfm <200 >=200 Alcoho l Metabolites Ur Ql Cfm JAIRO ([facility]) Ethyl glucuronide [Mass/volume] in Urine by Confirmatory method <50 0 >=500 Ethyl Glucuronide Ur [facility] ([facility]) Benzodiazepines [Presence] in Urine by Confirmatory method >=50 >=50 Benzodiaz Ur Ql [facility] ([facility]) Amphetamines [Presence] in Urine by Confirmatory method <0 >=0 Amphetamines Ur Ql [facility] ([facility]) gabapentinpregabalin ur ql [facility] <5 >=5 Gabap entinpregabalin Ur Ql [facility] ([facility]) 7-Aminoclonazepam [Mass/volume] in Urine by Confirmatory method 917 NG/mL >=50 7Aminoclonazepam Ur [facility] ([facility]) Opiates [Presence] in Urine by Confirmatory method <100 >=1 00 Opiates Ur Ql [facility] ([facility]) Methadone [Presence] in Urine by Confirmatory method <200 > =200 Methadone Ur Ql [facility] ([facility]) Cocaine [Presence] in Urine by Confirmatory method <50 >=50 Bze Ur Ql [facility] ([facility]) 6-Monoacetylmorphine (6-SHALONDA) [Presence] in Urine by Confirma tory method <10 >=10 6Mam Ur Ql [facility] ([facility]) Tramadol [Presence] in Urine by Confirmatory method <100 >= 100 Tramadol Ur Ql [facility] ([facility]) Carisoprodol+Meprobamate [Presence] in Urine by Screen method <200 >=200 Carisoprodol+meprob Ur Ql [facility] ([facility]) Meperidine [Presence] in Urine by Confirmatory method <100 >=100 Meperidine Ur Ql [facility] ([facility]) Fentanyl+Norfentanyl [Presence] in Urine by Confirmatory method <5 >=5 Fentanyl+norfentanyl Ur Ql [facility] ([facility]) Cotinine [Presence] in Urine by Confirmatory method <125 >= 125 Cotinine Ur Ql [facility] ([facility]) Creatinine [Mass/volume] in Urine 69.8 mg/dL 20 - 370 normal Cr eat Ur-mcnc JAIRO ([facility]) pH of Urine 4.5 - 9.0 normal pH Ur JAIRO ([facility]) ID Date Data Source [id number] 07/26/2019 12:00:00 AM EST JAIRO ([facility]) Name Value Range Interpretation Code Description Data Moni rce(s) Supporting Document(s) Cyclobenzaprine [Presence] in Urine by Confirmatory method <10 >=10 Cyclobenzaprine Ur Ql JAIRO ([facility]) ID Date Data Source [id number] 07/26/2019 12:00:00 AM EST JAIRO ([facility]) Name Value Range Interpretation Code Description Data Moni rce(s) Supporting Document(s) baclofen ur ql cfm <500 >=500 Baclofen Ur Ql Cf m JAIRO ([facility]) ID Date Data Source [id number] 07/26/2019 12:00:00 AM EST JAIRO ([facility]) Name Value Range Interpretation Code Description Data Moni rce(s) Supporting Document(s) Amitriptyline [Mass/volume] in Urine by Confirmatory method 153 NG/ mL >=10 Amitrip Ur Cfm-mcnc JAIRO ([facility]) Tricyclic antidepressants [Presence] in Urine by Confirmatory me thod >=10 >=10 Tricyclics Ur Ql Cfm JAIRO ([facility]) Nortriptyline [Mass/volume] in Urine by Confirmatory method 24 NG/m L >=10 Nortrip Ur Cfm-mcnc JAIRO ([facility]) ID Date Data Source [id number] 07/26/2019 12:00:00 AM EST JAIRO ([facility]) Name Value Range Interpretation Code Description Data Moni rce(s) Supporting Document(s) ID Date Data Source [id number] 07/26/2019 12:00:00 AM EST JAIRO ([facility]) Name Value Range Interpretation Code Description Data Moni rce(s) Supporting Document(s) ID Date Data Source [id number] 07/26/2019 12:00:00 AM EST JAIRO ([facility]) Name Value Range Interpretation Code Description Data Moni rce(s) Supporting Document(s) venlafaxine ur CMP 15902 NG/mL >=5 normal Venlafaxine Ur C MP JAIRO ([facility]) baclofen ur CMP <500 >=500 Abnormal (applies to non- numeric results) Baclofen Ur CMP JAIRO ([facility]) amitrip ur CMP 178 NG/mL >=10 normal Amitrip Ur CMP JAIRO ([facility]) cyclobenzaprine ur CMP <10 >=10 Abnormal (applies to non-numeric results) Cyclobenzaprine Ur CMP JAIRO ([facility]) clonazepam ur CMP 917 NG/mL >=50 normal Clonazepam Ur CMP JAIRO ([facility]) hydrocodone ur CMP <100 >=100 Abnormal (applies to n on-numeric results) Hydrocodone Ur CMP JAIRO ([facility]) ID Date Data Source [id number] 07/26/2019 12:00:00 AM EST JAIRO ([facility]) Name Value Range Interpretation Code Description Data Moni rce(s) Supporting Document(s) venlafaxine ur cfm-mcnc 1800 NG/mL >=5 Venlafaxine Ur Cfm-mcnc JAIRO ([facility]) sn reuptake inhibitors ur ql >=50 >=50 Sn Reup take Inhibitors Ur Ql JAIRO ([facility]) odv ur cfm-mcnc 25811 NG/mL >=50 Odv Ur Cfm-mcnc ATH KRUPA ([facility]) ID Date Data Source [id number] 07/26/2019 12:00:00 AM EST JAIRO ([facility]) Name Value Range Interpretation Code Description Data Moni rce(s) Supporting Document(s) Buprenorphine [Presence] in Urine by Confirmatory method <1 >=1 Buprenorphine Ur Ql [facility] ([facility]) Ethyl glucuronide [Mass/volume] in Urine by Confirmatory method <50 0 >=500 Ethyl Glucuronide Ur [facility] ([facility]) Ethyl sulfate [Mass/volume] in Urine by Confirmatory method <200 >=200 Ethyl Sulfate Ur [facility] ([facility]) alcohol metabolites ur ql cfm <200 >=200 Alcoho l Metabolites Ur Ql [facility] ([facility]) Tapentadol [Presence] in Urine by Confirmatory method <100 >=100 Tapentadol Ur Ql [facility] ([facility]) Benzodiazepines [Presence] in Urine by Confirmatory method >=50 >=50 Benzodiaz Ur Ql [facility] ([facility]) 7-Aminoclonazepam [Mass/volume] in Urine by Confirmatory method 917 NG/mL >=50 7Aminoclonazepam Ur [facility] ([facility]) Amphetamines [Presence] in Urine by Confirmatory method <0 >=0 Amphetamines Ur Ql [facility] ([facility]) 6-Monoacetylmorphine (6-SHALONDA) [Presence] in Urine by Confirma tory method <10 >=10 6Mam Ur Ql [facility] ([facility]) gabapentinpregabalin ur ql cfm <5 >=5 Gabap entinpregabalin Ur Ql [facility] ([facility]) Opiates [Presence] in Urine by Confirmatory method <100 >=1 00 Opiates Ur Ql [facility] ([facility]) Cocaine [Presence] in Urine by Confirmatory method <50 >=50 Bze Ur Ql [facility] ([facility]) Meperidine [Presence] in Urine by Confirmatory method <100 >=100 Meperidine Ur Ql [facility] ([facility]) Fentanyl+Norfentanyl [Presence] in Urine by Confirmatory method <5 >=5 Fentanyl+norfentanyl Ur Ql [facility] ([facility]) Carisoprodol+Meprobamate [Presence] in Urine by Screen method <200 >=200 Carisoprodol+meprob Ur Ql Scn JAIRO ([facility]) Methadone [Presence] in Urine by Confirmatory method <200 > =200 Methadone Ur Ql Cfm JAIRO ([facility]) Tramadol [Presence] in Urine by Confirmatory method <100 >= 100 Tramadol Ur Ql Cfm JAIRO ([facility]) Cotinine [Presence] in Urine by Confirmatory method <125 >= 125 Cotinine Ur Ql Cfm JAIRO ([facility]) Creatinine [Mass/volume] in Urine 69.8 mg/dL 20 - 370 normal Cr eat Ur-mcnc JAIRO ([facility]) pH of Urine 4.5 - 9.0 normal pH Ur JAIRO ([facility]) ID Date Data Source [id number] 07/26/2019 12:00:00 AM EST JAIRO ([facility]) Name Value Range Interpretation Code Description Data Moni rce(s) Supporting Document(s) Cyclobenzaprine [Presence] in Urine by Confirmatory method <10 >=10 Cyclobenzaprine Ur Ql JAIRO ([facility]) ID Date Data Source [id number] 07/26/2019 12:00:00 AM EST JAIRO ([facility]) Name Value Range Interpretation Code Description Data Moni rce(s) Supporting Document(s) baclofen ur ql cfm <500 >=500 Baclofen Ur Ql Cf m JAIRO ([facility]) ID Date Data Source [id number] 07/26/2019 12:00:00 AM EST JAIRO ([facility]) Name Value Range Interpretation Code Description Data Moni rce(s) Supporting Document(s) Amitriptyline [Mass/volume] in Urine by Confirmatory method 153 NG/ mL >=10 Amitrip Ur Cfm-mcnc JAIRO ([facility]) Tricyclic antidepressants [Presence] in Urine by Confirmatory me thod >=10 >=10 Tricyclics Ur Ql Cfm JAIRO ([facility]) Nortriptyline [Mass/volume] in Urine by Confirmatory method 24 NG/m L >=10 Nortrip Ur Cfm-mcnc JAIRO ([facility]) ID Date Data Source [id number] 07/26/2019 12:00:00 AM EST JAIRO ([facility]) Name Value Range Interpretation Code Description Data Moni rce(s) Supporting Document(s) ID Date Data Source [id number] 07/26/2019 12:00:00 AM EST JAIRO ([facility]) Name Value Range Interpretation Code Description Data Moni rce(s) Supporting Document(s) ID Date Data Source [id number] 07/26/2019 12:00:00 AM EST JAIRO ([facility]) Name Value Range Interpretation Code Description Data Moni rce(s) Supporting Document(s) Amitriptyline [Mass/volume] in Urine by Confirmatory method 153 NG/ mL >=10 Amitrip Ur Cfm-mcnc JAIRO ([facility]) Nortriptyline [Mass/volume] in Urine by Confirmatory method 24 NG/m L >=10 Nortrip Ur Cfm-mcnc JAIRO ([facility]) Tricyclic antidepressants [Presence] in Urine by Confirmatory me thod >=10 >=10 Tricyclics Ur Ql Cfm JAIRO ([facility]) ID Date Data Source [id number] 07/26/2019 12:00:00 AM EST JAIRO ([facility]) Name Value Range Interpretation Code Description Data Moni rce(s) Supporting Document(s) ID Date Data Source [id number] 07/26/2019 12:00:00 AM EST JAIRO ([facility]) Name Value Range Interpretation Code Description Data Moni rce(s) Supporting Document(s) ID Date Data Source [id number] 07/26/2019 12:00:00 AM EST JAIRO ([facility]) Name Value Range Interpretation Code Description Data Moni rce(s) Supporting Document(s) amitrip ur CMP 178 NG/mL >=10 normal Amitrip Ur CMP JAIRO ([facility]) venlafaxine ur CMP 46609 NG/mL >=5 normal Venlafaxine Ur C MP JAIRO ([facility]) clonazepam ur CMP 917 NG/mL >=50 normal Clonazepam Ur CMP JAIRO ([facility]) baclofen ur CMP <500 >=500 Abnormal (applies to non- numeric results) Baclofen Ur CMP JAIRO ([facility]) hydrocodone ur CMP <100 >=100 Abnormal (applies to n on-numeric results) Hydrocodone Ur CMP JAIRO ([facility]) cyclobenzaprine ur CMP <10 >=10 Abnormal (applies to non-numeric results) Cyclobenzaprine Ur CMP JAIRO ([facility]) ID Date Data Source [id number] 07/26/2019 12:00:00 AM EST JAIRO ([facility]) Name Value Range Interpretation Code Description Data Moni rce(s) Supporting Document(s) odv ur cfm-mcnc 60204 NG/mL >=50 Odv Ur Cfm-mcnc ATH KRUPA ([facility]) venlafaxine ur cfm-mcnc 1800 NG/mL >=5 Venlafaxine Ur Cfm-mcnc JAIRO ([facility]) sn reuptake inhibitors ur ql >=50 >=50 Sn Reup take Inhibitors Ur Ql JAIRO ([facility]) ID Date Data Source [id number] 07/26/2019 12:00:00 AM EST JAIRO ([facility]) Name Value Range Interpretation Code Description Data Moni rce(s) Supporting Document(s) Buprenorphine [Presence] in Urine by Confirmatory method <1 >=1 Buprenorphine Ur Ql Cfm JAIRO ([facility]) Ethyl glucuronide [Mass/volume] in Urine by Confirmatory method <50 0 >=500 Ethyl Glucuronide Ur Cfm-mcnc JAIRO ([facility]) alcohol metabolites ur ql cfm <200 >=200 Alcoho l Metabolites Ur Ql [facility] ([facility]) Benzodiazepines [Presence] in Urine by Confirmatory method >=50 >=50 Benzodiaz Ur Ql [facility] ([facility]) 7-Aminoclonazepam [Mass/volume] in Urine by Confirmatory method 917 NG/mL >=50 7Aminoclonazepam Ur [facility] ([facility]) Amphetamines [Presence] in Urine by Confirmatory method <0 >=0 Amphetamines Ur Ql [facility] ([facility]) Ethyl sulfate [Mass/volume] in Urine by Confirmatory method <200 >=200 Ethyl Sulfate Ur [facility] ([facility]) Tapentadol [Presence] in Urine by Confirmatory method <100 >=100 Tapentadol Ur Ql [facility] ([facility]) gabapentinpregabalin ur ql [facility] <5 >=5 Gabap entinpregabalin Ur Ql [facility] ([facility]) Opiates [Presence] in Urine by Confirmatory method <100 >=1 00 Opiates Ur Ql [facility] ([facility]) Cocaine [Presence] in Urine by Confirmatory method <50 >=50 Bze Ur Ql [facility] ([facility]) 6-Monoacetylmorphine (6-SHALONDA) [Presence] in Urine by Confirma tory method <10 >=10 6Mam Ur Ql [facility] ([facility]) Carisoprodol+Meprobamate [Presence] in Urine by Screen method <200 >=200 Carisoprodol+meprob Ur Ql [facility] ([facility]) Fentanyl+Norfentanyl [Presence] in Urine by Confirmatory method <5 >=5 Fentanyl+norfentanyl Ur Ql [facility] ([facility]) Meperidine [Presence] in Urine by Confirmatory method <100 >=100 Meperidine Ur Ql [facility] ([facility]) Methadone [Presence] in Urine by Confirmatory method <200 > =200 Methadone Ur Ql [facility] ([facility]) Creatinine [Mass/volume] in Urine 69.8 mg/dL 20 - 370 normal [facility]) Cotinine [Presence] in Urine by Confirmatory method <125 >= 125 Cotinine Ur Ql Cfm JAIRO ([facility]) Tramadol [Presence] in Urine by Confirmatory method <100 >= 100 Tramadol Ur Ql Cfm JAIRO ([facility]) pH of Urine 4.5 - 9.0 normal pH Ur JAIRO ([facility]) ID Date Data Source [id number] 07/26/2019 12:00:00 AM EST JAIRO ([facility]) Name Value Range Interpretation Code Description Data Moni rce(s) Supporting Document(s) Cyclobenzaprine [Presence] in Urine by Confirmatory method <10 >=10 Cyclobenzaprine Ur Ql JAIRO ([facility]) ID Date Data Source [id number] 07/26/2019 12:00:00 AM EST JAIRO ([facility]) Name Value Range Interpretation Code Description Data Moni rce(s) Supporting Document(s) baclofen ur ql cfm <500 >=500 Baclofen Ur Ql Cf m JAIRO ([facility]) ID Date Data Source [id number] 07/26/2019 12:00:00 AM EST JAIRO ([facility]) Name Value Range Interpretation Code Description Data Moni rce(s) Supporting Document(s) Amitriptyline [Mass/volume] in Urine by Confirmatory method 153 NG/ mL >=10 Amitrip Ur Cfm-mcnc JAIRO ([facility] [facility] Tricyclic antidepressants [Presence] in Urine by Confirmatory me thod >=10 >=10 Tricyclics Ur Ql Cfm JAIRO ([facility]) Nortriptyline [Mass/volume] in Urine by Confirmatory method 24 NG/m L >=10 Nortrip Ur Cfm-mcnc JAIRO ([facility]) ID Date Data Source [id number] 07/26/2019 12:00:00 AM EST JAIRO ([facility]) Name Value Range Interpretation Code Description Data Moni rce(s) Supporting Document(s) ID Date Data Source [id number] 07/26/2019 12:00:00 AM EST JAIRO ([facility]) Name Value Range Interpretation Code Description Data Moni rce(s) Supporting Document(s) ID Date Data Source [id number] 07/26/2019 12:00:00 AM EST JAIRO ([facility]) Name Value Range Interpretation Code Description Data Moni rce(s) Supporting Document(s) venlafaxine ur CMP 78990 NG/mL >=5 normal Venlafaxine Ur C MP JAIRO ([facility]) cyclobenzaprine ur CMP <10 >=10 Abnormal (applies to non-numeric results) Cyclobenzaprine Ur CMP JAIRO ([facility]) clonazepam ur CMP 917 NG/mL >=50 normal Clonazepam Ur CMP JAIRO ([facility]) amitrip ur CMP 178 NG/mL >=10 normal Amitrip Ur CMP JAIRO ([facility]) baclofen ur CMP <500 >=500 Abnormal (applies to non- numeric results) Baclofen Ur CMP JAIRO ([facility]) hydrocodone ur CMP <100 >=100 Abnormal (applies to n on-numeric results) Hydrocodone Ur CMP JAIRO ([facility]) ID Date Data Source [id number] 07/26/2019 12:00:00 AM EST JAIRO ([facility]) Name Value Range Interpretation Code Description Data Moni rce(s) Supporting Document(s) sn reuptake inhibitors ur ql >=50 >=50 Sn Reup take Inhibitors Ur Ql JAIRO ([facility]) venlafaxine ur cfm-mcnc 1800 NG/mL >=5 Venlafaxine Ur Cfm-mcnc JAIRO ([facility]) odv ur cfm-mcnc 92621 NG/mL >=50 Odv Ur Cfm-mcnc ATH KRUPA ([facility]) ID Date Data Source [id number] 07/26/2019 12:00:00 AM EST JAIRO ([facility]) Name Value Range Interpretation Code Description Data Moni rce(s) Supporting Document(s) alcohol metabolites ur ql cfm <200 >=200 Alcoho l Metabolites Ur Ql [facility]) Buprenorphine [Presence] in Urine by Confirmatory method <1 >=1 Buprenorphine Ur Ql [facility] ([facility]) Ethyl sulfate [Mass/volume] in Urine by Confirmatory method <200 >=200 Ethyl Sulfate Ur [facility] ([facility]) Ethyl glucuronide [Mass/volume] in Urine by Confirmatory method <50 0 >=500 Ethyl Glucuronide Ur [facility] ([facility]) Tapentadol [Presence] in Urine by Confirmatory method <100 >=100 Tapentadol Ur Ql [facility]) Benzodiazepines [Presence] in Urine by Confirmatory method >=50 >=50 Benzodiaz Ur Ql [facility] ([facility]) 7-Aminoclonazepam [Mass/volume] in Urine by Confirmatory method 917 NG/mL >=50 7Aminoclonazepam Ur [facility] ([facility]) Amphetamines [Presence] in Urine by Confirmatory method <0 >=0 Amphetamines Ur Ql [facility] ([facility]) Opiates [Presence] in Urine by Confirmatory method <100 >=1 00 Opiates Ur Ql [facility] ([facility]) Cocaine [Presence] in Urine by Confirmatory method <50 >=50 Bze Ur Ql [facility] ([facility]) gabapentinpregabalin ur ql [facility] <5 >=5 Gabap entinpregabalin Ur Ql [facility] ([facility]) Methadone [Presence] in Urine by Confirmatory method <200 > =200 Methadone Ur Ql [facility] ([facility]) 6-Monoacetylmorphine (6-SHALONDA) [Presence] in Urine by Confirma tory method <10 >=10 6Mam Ur Ql [facility] ([facility]) Meperidine [Presence] in Urine by Confirmatory method <100 >=100 Meperidine Ur Ql Cfm JAIRO ([facility]) Tramadol [Presence] in Urine by Confirmatory method <100 >= 100 Tramadol Ur Ql Cfm JAIRO ([facility]) Carisoprodol+Meprobamate [Presence] in Urine by Screen method <200 >=200 Carisoprodol+meprob Ur Ql Scn JAIRO ([facility]) Cotinine [Presence] in Urine by Confirmatory method <125 >= 125 Cotinine Ur Ql Cfm JAIRO ([facility]) Fentanyl+Norfentanyl [Presence] in Urine by Confirmatory method <5 >=5 Fentanyl+norfentanyl Ur Ql Cfm JAIRO ([facility]) Creatinine [Mass/volume] in Urine 69.8 mg/dL 20 - 370 normal Cr eat Ur-mcnc JAIRO ([facility]) pH of Urine 4.5 - 9.0 normal pH Ur [facility]IRO ([facility]) ID Date Data Source [id number] 07/26/2019 12:00:00 AM EST JAIRO ([facility]) Name Value Range Interpretation Code Description Data Moni rce(s) Supporting Document(s) Cyclobenzaprine [Presence] in Urine by Confirmatory method <10 >=10 Cyclobenzaprine Ur Ql JAIRO ([facility]) ID Date Data Source [id number] 07/26/2019 12:00:00 AM EST JAIRO ([facility]) Name Value Range Interpretation Code Description Data Moni rce(s) Supporting Document(s) baclofen ur ql cfm <500 >=500 Baclofen Ur Ql Cf m JAIRO ([facility]) ID Date Data Source [id number] 07/26/2019 12:00:00 AM EST JAIRO ([facility]) Name Value Range Interpretation Code Description Data Moni rce(s) Supporting Document(s) Amitriptyline [Mass/volume] in Urine by Confirmatory method 153 NG/ mL >=10 Amitrip Ur Cfm-mcnc JAIRO ([facility]) Nortriptyline [Mass/volume] in Urine by Confirmatory method 24 NG/m L >=10 Nortrip Ur Cfm-mcnc JAIRO ([facility]) Tricyclic antidepressants [Presence] in Urine by Confirmatory me thod >=10 >=10 Tricyclics Ur Ql Cfm JAIRO ([facility]) ID Date Data Source [id number] 07/26/2019 12:00:00 AM EST JAIRO ([facility]) Name Value Range Interpretation Code Description Data Moni rce(s) Supporting Document(s) venlafaxine ur CMP 10065 NG/mL >=5 normal Venlafaxine Ur C MP JAIRO ([facility]) amitrip ur CMP 178 NG/mL >=10 normal Amitrip Ur CMP JAIRO ([facility]) clonazepam ur CMP 917 NG/mL >=50 normal Clonazepam Ur CMP JAIRO ([facility]) cyclobenzaprine ur CMP <10 >=10 Abnormal (applies to non-numeric results) Cyclobenzaprine Ur CMP JAIRO ([facility]) baclofen ur CMP <500 >=500 Abnormal (applies to non- numeric results) Baclofen Ur CMP JAIRO ([facility]) hydrocodone ur CMP <100 >=100 Abnormal (applies to n on-numeric results) Hydrocodone Ur CMP JAIRO ([facility]) ID Date Data Source [id number] 07/26/2019 12:00:00 AM EST JAIRO ([facility]) Name Value Range Interpretation Code Description Data Moni rce(s) Supporting Document(s) sn reuptake inhibitors ur ql >=50 >=50 Sn Reup take Inhibitors Ur Ql JAIRO ([facility]) odv ur cfm-mcnc 33632 NG/mL >=50 Odv Ur Cfm-mcnc ATH KRUPA ([facility]) venlafaxine ur cfm-mcnc 1800 NG/mL >=5 Venlafaxine Ur Cfm-mcnc JAIRO ([facility]) ID Date Data Source [id number] 07/26/2019 12:00:00 AM EST JAIRO ([facility]) Name Value Range Interpretation Code Description Data Moni rce(s) Supporting Document(s) Buprenorphine [Presence] in Urine by Confirmatory method <1 >=1 Buprenorphine Ur Ql [facility] ([facility]) Ethyl glucuronide [Mass/volume] in Urine by Confirmatory method <50 0 >=500 Ethyl Glucuronide Ur [facility] ([facility]) alcohol metabolites ur ql cfm <200 >=200 Alcoho l Metabolites Ur Ql [facility] ([facility]) Tapentadol [Presence] in Urine by Confirmatory method <100 >=100 Tapentadol Ur Ql [facility] ([facility]) Ethyl sulfate [Mass/volume] in Urine by Confirmatory method <200 >=200 Ethyl Sulfate Ur [facility] ([facility]) 7-Aminoclonazepam [Mass/volume] in Urine by Confirmatory method 917 NG/mL >=50 7Aminoclonazepam Ur [facility] ([facility]) Amphetamines [Presence] in Urine by Confirmatory method <0 >=0 Amphetamines Ur Ql [facility] ([facility]) Benzodiazepines [Presence] in Urine by Confirmatory method >=50 >=50 Benzodiaz Ur Ql [facility] ([facility]) gabapentinpregabalin ur ql cfm <5 >=5 Gabap entinpregabalin Ur Ql [facility] ([facility]) Cocaine [Presence] in Urine by Confirmatory method <50 >=50 Bze Ur Ql [facility] ([facility]) Opiates [Presence] in Urine by Confirmatory method <100 >=1 00 Opiates Ur Ql [facility] ([facility]) 6-Monoacetylmorphine (6-SHALONDA) [Presence] in Urine by Confirma tory method <10 >=10 6Mam Ur Ql [facility] ([facility]) Meperidine [Presence] in Urine by Confirmatory method <100 >=100 Meperidine Ur Ql [facility] ([facility]) Fentanyl+Norfentanyl [Presence] in Urine by Confirmatory method <5 >=5 Fentanyl+norfentanyl Ur Ql Cfm JAIRO ([facility]) Methadone [Presence] in Urine by Confirmatory method <200 > =200 Methadone Ur Ql Cfm JAIRO ([facility]) Tramadol [Presence] in Urine by Confirmatory method <100 >= 100 Tramadol Ur Ql Cfm JAIRO ([facility]) Carisoprodol+Meprobamate [Presence] in Urine by Screen method <200 >=200 Carisoprodol+meprob Ur Ql Scn JAIRO ([facility]) pH of Urine 4.5 - 9.0 normal pH Ur JAIRO ([facility]) Creatinine [Mass/volume] in Urine 69.8 mg/dL 20 - 370 normal Cr eat Ur-mcnc JAIRO ([facility]) Cotinine [Presence] in Urine by Confirmatory method <125 >= 125 Cotinine Ur Ql Cfm JAIRO ([facility]) ID Date Data Source [id number] 07/26/2019 12:00:00 AM EST JAIRO ([facility]) Name Value Range Interpretation Code Description Data Moni rce(s) Supporting Document(s) Cyclobenzaprine [Presence] in Urine by Confirmatory method <10 >=10 Cyclobenzaprine Ur Ql JAIRO ([facility]) ID Date Data Source [id number] 07/26/2019 12:00:00 AM EST JAIRO ([facility]) Name Value Range Interpretation Code Description Data Moni rce(s) Supporting Document(s) baclofen ur ql cfm <500 >=500 Baclofen Ur Ql Cf m JAIRO ([facility]) ID Date Data Source [id number] 07/26/2019 12:00:00 AM EST AJIRO ([facility]) Name Value Range Interpretation Code Description Data Moni rce(s) Supporting Document(s) Tricyclic antidepressants [Presence] in Urine by Confirmatory me thod >=10 >=10 Tricyclics Ur Ql Cfm JAIRO ([facility]) Amitriptyline [Mass/volume] in Urine by Confirmatory method 153 NG/ mL >=10 Amitrip Ur Cfm-mcnc JAIRO ([facility]) Nortriptyline [Mass/volume] in Urine by Confirmatory method 24 NG/m L >=10 Nortrip Ur Cfm-mcnc JAIRO ([facility]) ID Date Data Source [id number] 07/26/2019 12:00:00 AM EST JAIRO ([facility]) Name Value Range Interpretation Code Description Data Moni rce(s) Supporting Document(s) ID Date Data Source [id number] 07/26/2019 12:00:00 AM EST JAIRO ([facility]) Name Value Range Interpretation Code Description Data Moni rce(s) Supporting Document(s) ID Date Data Source [id number] 07/26/2019 12:00:00 AM EST JAIRO ([facility]) Name Value Range Interpretation Code Description Data Moni rce(s) Supporting Document(s) amitrip ur CMP 178 NG/mL >=10 normal Amitrip Ur CMP JAIRO ([facility]) venlafaxine ur CMP 01562 NG/mL >=5 normal Venlafaxine Ur C MP JAIRO ([facility]) clonazepam ur CMP 917 NG/mL >=50 normal Clonazepam Ur CMP JAIRO ([facility]) cyclobenzaprine ur CMP <10 >=10 Abnormal (applies to non-numeric results) Cyclobenzaprine Ur CMP JAIRO ([facility]) hydrocodone ur CMP <100 >=100 Abnormal (applies to n on-numeric results) Hydrocodone Ur CMP JAIRO ([facility]) baclofen ur CMP <500 >=500 Abnormal (applies to non- numeric results) Baclofen Ur CMP JAIRO ([facility]) ID Date Data Source [id number] 07/26/2019 12:00:00 AM EST JAIRO ([facility]) Name Value Range Interpretation Code Description Data Moni rce(s) Supporting Document(s) venlafaxine ur cfm-mcnc 1800 NG/mL >=5 Venlafaxine Ur Cfm-mcnc JAIRO ([facility]) sn reuptake inhibitors ur ql >=50 >=50 Sn Reup take Inhibitors Ur Ql JAIRO ([facility]) odv ur cfm-mcnc 37466 NG/mL >=50 Odv Ur Cfm-mcnc ATH KRUPA ([facility]) ID Date Data Source [id number] 07/26/2019 12:00:00 AM EST JAIRO ([facility]) Name Value Range Interpretation Code Description Data Moni rce(s) Supporting Document(s) Buprenorphine [Presence] in Urine by Confirmatory method <1 >=1 Buprenorphine Ur Ql [facility] ([facility]) Tapentadol [Presence] in Urine by Confirmatory method <100 >=100 Tapentadol Ur Ql [facility] ([facility]) Ethyl sulfate [Mass/volume] in Urine by Confirmatory method <200 >=200 Ethyl Sulfate Ur [facility] ([facility]) Ethyl glucuronide [Mass/volume] in Urine by Confirmatory method <50 0 >=500 Ethyl Glucuronide Ur [facility] ([facility]) alcohol metabolites ur ql cfm <200 >=200 Alcoho l Metabolites Ur Ql Cfm PETACA ([facility]) Amphetamines [Presence] in Urine by Confirmatory method <0 >=0 Amphetamines Ur Ql [facility] ([facility]) 7-Aminoclonazepam [Mass/volume] in Urine by Confirmatory method 917 NG/mL >=50 7Aminoclonazepam Ur [facility] ([facility]) Benzodiazepines [Presence] in Urine by Confirmatory method >=50 >=50 Benzodiaz Ur Ql [facility] JAIRO ([facility]) Opiates [Presence] in Urine by Confirmatory method <100 >=1 00 Opiates Ur Ql [facility] JAIRO ([facility]) 6-Monoacetylmorphine (6-SHALONDA) [Presence] in Urine by Confirma tory method <10 >=10 6Mam Ur Ql Cfm JAIRO ([facility]) Cocaine [Presence] in Urine by Confirmatory method <50 >=50 Bze Ur Ql Cfm JAIRO ([facility]) gabapentinpregabalin ur ql cfm <5 >=5 Gabap entinpregabalin Ur Ql Cfm PETACA ([facility]) Methadone [Presence] in Urine by Confirmatory method <200 > =200 Methadone Ur Ql Cfm JAIRO ([facility]) Fentanyl+Norfentanyl [Presence] in Urine by Confirmatory method <5 >=5 Fentanyl+norfentanyl Ur Ql Cfm PETACA ([facility]) Meperidine [Presence] in Urine by Confirmatory method <100 >=100 [facility] Tramadol [Presence] in Urine by Confirmatory method <100 >= 100 [facility] pH of Urine 4.5 - 9.0 normal pH Ur [facility] ([facility]) Carisoprodol+Meprobamate [Presence] in Urine by Screen method <200 >=200 Carisoprodol+meprob Ur Ql Scn JAIRO ([facility]) Cotinine [Presence] in Urine by Confirmatory method <125 >= 125 [facility] Creatinine [Mass/volume] in Urine 69.8 mg/dL 20 - 370 normal Cr eat Ur-mcnc [facility]ACA ([facility]) ID Date Data Source [id number] 07/26/2019 12:00:00 AM EST JAIRO ([facility]) Name Value Range Interpretation Code Description Data Moni rce(s) Supporting Document(s) Cyclobenzaprine [Presence] in Urine by Confirmatory method <10 >=10 Cyclobenzaprine Ur Ql [facility] ([facility]) ID Date Data Source [id number] 07/26/2019 12:00:00 AM EST JAIRO ([facility]) Name Value Range Interpretation Code Description Data Moni rce(s) Supporting Document(s) baclofen ur ql cfm <500 >=500 Baclofen Ur Ql Cf m JAIRO ([facility]) ID Date Data Source [id number] 07/26/2019 12:00:00 AM EST JAIRO ([facility]) Name Value Range Interpretation Code Description Data Moni rce(s) Supporting Document(s) Tricyclic antidepressants [Presence] in Urine by Confirmatory me thod >=10 >=10 Tricyclics Ur Ql Cfm JAIRO ([facility]) Nortriptyline [Mass/volume] in Urine by Confirmatory method 24 NG/m L >=10 Nortrip Ur Cfm-mcnc JAIRO ([facility]) Amitriptyline [Mass/volume] in Urine by Confirmatory method 153 NG/ mL >=10 Amitrip Ur Cfm-mcnc JAIRO ([facility]) ID Date Data Source [id number] 07/26/2019 12:00:00 AM EST JAIRO ([facility]) Name Value Range Interpretation Code Description Data Moni rce(s) Supporting Document(s) ID Date Data Source [id number] 07/26/2019 12:00:00 AM EST JAIRO ([facility]) Name Value Range Interpretation Code Description Data Moni rce(s) Supporting Document(s) ID Date Data Source [id number] 07/26/2019 12:00:00 AM EST JAIRO ([facility]) Name Value Range Interpretation Code Description Data Moni rce(s) Supporting Document(s) venlafaxine ur CMP 59123 NG/mL >=5 normal Venlafaxine Ur C MP JAIRO ([facility]) amitrip ur CMP 178 NG/mL >=10 normal Amitrip Ur CMP JAIRO ([facility]) clonazepam ur CMP 917 NG/mL >=50 normal Clonazepam Ur CMP JAIRO ([facility]) hydrocodone ur CMP <100 >=100 Abnormal (applies to n on-numeric results) Hydrocodone Ur CMP JAIRO ([facility]) baclofen ur CMP <500 >=500 Abnormal (applies to non- numeric results) Baclofen Ur CMP JAIRO ([facility]) cyclobenzaprine ur CMP <10 >=10 Abnormal (applies to non-numeric results) Cyclobenzaprine Ur CMP JAIRO ([facility]) ID Date Data Source [id number] 07/26/2019 12:00:00 AM EST JAIRO ([facility]) Name Value Range Interpretation Code Description Data Moni rce(s) Supporting Document(s) sn reuptake inhibitors ur ql >=50 >=50 Sn Reup take Inhibitors Ur Ql JAIRO ([facility]) venlafaxine ur cfm-mcnc 1800 NG/mL >=5 Venlafaxine Ur Cfm-mcnc JAIRO ([facility]) odv ur cfm-mcnc 96379 NG/mL >=50 Odv Ur Cfm-mcnc ATH KRUPA ([facility]) ID Date Data Source [id number] 07/26/2019 12:00:00 AM EST JAIRO ([facility]) Name Value Range Interpretation Code Description Data Moni rce(s) Supporting Document(s) Buprenorphine [Presence] in Urine by Confirmatory method <1 >=1 Buprenorphine Ur Ql Cfm JAIRO ([facility]) alcohol metabolites ur ql cfm <200 >=200 Alcoho l Metabolites Ur Ql Cfm JAIRO ([facility]) Tapentadol [Presence] in Urine by Confirmatory method <100 >=100 Tapentadol Ur Ql Cfm JAIRO ([facility]) Ethyl glucuronide [Mass/volume] in Urine by Confirmatory method <50 0 >=500 Ethyl Glucuronide Ur Cfm-mcnc JAIRO ([facility]) Ethyl sulfate [Mass/volume] in Urine by Confirmatory method <200 >=200 Ethyl Sulfate Ur Cfm-mcnc JAIRO ([facility]) Amphetamines [Presence] in Urine by Confirmatory method <0 >=0 Amphetamines Ur Ql Cfm JAIRO ([facility]) gabapentinpregabalin ur ql cfm <5 >=5 Gabap entinpregabalin Ur Ql [facility] ([facility]) 7-Aminoclonazepam [Mass/volume] in Urine by Confirmatory method 917 NG/mL >=50 7Aminoclonazepam Ur Cfm-[facility] ([facility]) Benzodiazepines [Presence] in Urine by Confirmatory method >=50 >=50 Benzodiaz Ur Ql [facility] ([facility]) Opiates [Presence] in Urine by Confirmatory method <100 >=1 00 Opiates Ur Ql [facility] ([facility]) 6-Monoacetylmorphine (6-SHALONDA) [Presence] in Urine by Confirma tory method <10 >=10 6Mam Ur Ql [facility] ([facility]) Cocaine [Presence] in Urine by Confirmatory method <50 >=50 Bze Ur Ql [facility] ([facility]) Fentanyl+Norfentanyl [Presence] in Urine by Confirmatory method <5 >=5 Fentanyl+norfentanyl Ur Ql [facility] ([facility]) Carisoprodol+Meprobamate [Presence] in Urine by Screen method <200 >=200 Carisoprodol+meprob Ur Ql [facility] ([facility]) Methadone [Presence] in Urine by Confirmatory method <200 > =200 Methadone Ur Ql [facility] ([facility]) Meperidine [Presence] in Urine by Confirmatory method <100 >=100 Meperidine Ur Ql [facility] ([facility]) pH of Urine 4.5 - 9.0 normal pH Ur [facility] ([facility]) Tramadol [Presence] in Urine by Confirmatory method <100 >= 100 Tramadol Ur Ql [facility] ([facility]) Cotinine [Presence] in Urine by Confirmatory method <125 >= 125 Cotinine Ur Ql [facility] ([facility]) Creatinine [Mass/volume] in Urine 69.8 mg/dL 20 - 370 normal Cr eat Ur-[facility] ([facility]) ID Date Data Source [id number] 07/26/2019 12:00:00 AM EST JAIRO ([facility]) Name Value Range Interpretation Code Description Data Moni rce(s) Supporting Document(s) Cyclobenzaprine [Presence] in Urine by Confirmatory method <10 >=10 Cyclobenzaprine Ur Ql JAIRO ([facility]) ID Date Data Source [id number] 07/26/2019 12:00:00 AM EST JAIRO ([facility]) Name Value Range Interpretation Code Description Data Moni rce(s) Supporting Document(s) baclofen ur ql cfm <500 >=500 Baclofen Ur Ql Cf m JAIRO ([facility]) ID Date Data Source [id number] 07/13/2019 07:11:44 AM [facility] INFORMATIONPatient MRN Name Date of Age Gend*PT [id number] Marroquin Elena 1965 54 years F ---PT Location Admission Date/Time Visit ID Attending Provider --- --- --- --- EPI ID CSN Admitting Provider [id number] ---Name: Elena MarroquinDOB: 1965Date: 07/13/19CIED Remote CheckImplanted Device 07/11/2019Device Yard Operator MedtronicDevice type Single Chamber ICDMRI Conditional Device -Device was remotely interrogated and the following were evaluated:Battery statusSummary arrhythmia logsNew observationsFidelity of the EGM signalIntegrity of leads and lead impendence were reevaluatedConclusion:Normal ICD function.No significant changes continue to monitor.Signature: Law Vasquez MD, [facility], FHRSCardiac Electrophysiology and Arrhythmia ServiceDate: July 13, 2019Time: 7:11 AMThis document or parts of this document, were dictated using RentersQsoftware. A reasonable attempt at proofreading has been made to minimize errors.Please call with any questions or corrections. Name Value Range Interpretation Code Description Data Moni rce(s) Supporting Document(s) ID Date Data Source [id number] 07/13/2019 07:11:44 AM EST [facility]PAT[facility] NT INFORMATIONPatient MRN Name Date of Age Gend*PT [id number] Elena Marroquin 1965 54 years F ---PT Location Admission Date/Time Visit ID Attending Provider --- --- --- --- EPI ID CSN Admitting Provider [id number] ---Heart Failure Management ReportPatient has a history of ventricular tachycardia. According to this report,patient has not had VT/VF. There is not evidence of AT/AF. In regards toOptivol, patient has not crossed fluid threshold. Average ventricular responseat night is 65.Marge Mitchell NPThis document or parts of this document, were dictated using AcceloWeb. A reasonable attempt at proofreading has been made to minimize errors.Please call with any questions or corrections. Name Value Range Interpretation Code Description Data Moni rce(s) Supporting Document(s) ID Date Data Source [id number] 07/12/2019 04:17:00 PM EST [facility] ([facility]) Name Value Range Interpretation Code Description Data Moni rce(s) Supporting Document(s) <0.2 0.0-1.0 CRP [facility]) ID Date Data Source [id number] 07/12/2019 04:17:00 PM EST [facility] ([facility]) Name Value Range Interpretation Code Description Data Moni rce(s) Supporting Document(s) 1.0 mg/dL 0.6-1.2 CREATININE [facility] ([facility]) 57.4 mL/min/1.73m eGFR [facility]) ID Date Data Source [id number] 07/12/2019 04:17:00 PM EST [facility] ([facility]) Name Value Range Interpretation Code Description Data Moni rce(s) Supporting Document(s) 34 U/L 15-37 AST [facility]) ID Date Data Source [id number] 07/12/2019 04:17:00 PM EST [facility] ([facility]) Name Value Range Interpretation Code Description Data Moni rce(s) Supporting Document(s) 69 U/L 30-65 Above high normal ALT [facility]) ID Date Data Source [id number] 07/12/2019 04:17:00 PM EST [facility] ([facility]) Name Value Range Interpretation Code Description Data Moni rce(s) Supporting Document(s) 4.4 g/dL 3.4-4.4 ALB [facility]) ID Date Data Source [id number] 07/12/2019 04:17:00 PM EST [facility] ([facility]) Name Value Range Interpretation Code Description Data Moni rce(s) Supporting Document(s) <2 0-20 ESR [facility]) ID Date Data Source [id number] 07/12/2019 04:17:00 PM EST [facility] ID Date Data Source [id number] 07/21/2019 04:40:00 AM EST [facility] FASTING: UNKNOWNReceived: 07/15/2019 at 00:43:00 EZ: [facility],, [address] [place], [address], Korin Jean MD,PhD,DAYAN Name Value Range Interpretation Code Description Data Moni rce(s) Supporting Document(s) Chymotrypsin [Enzymatic activity/mass] in Stool 2.5 U/g 2.3-51.4 [facility] This test was developed and its analytic al performancecharacteristics have been determined by [facility]. It has not beencleared or approved by FDA. This assay has been validatedpursuant to the CLIA regulations and is used for clinicalpurposes. ID Date Data Source [id number] 06/30/2019 03:00:00 PM EST [facility] Name Value Range Interpretation Code Description Data Moni rce(s) Supporting Document(s) Follow Up [facility] UGYZUk2mVvBMFgDgIUCwMqsYJMfhUPlvVHMxT2W3IRgwUm0JTKxrfvNnIFTnQl9+JOXwHR3lkr4pTKKl gMy [file] Wy8o58W67N4f+2NfOdlX3/g9Ch1N/lYdy4oOWH1679 Pccrz6jDvxQ6f6sUWaVJcZpJf3mFzHQw48Z3QstbTHDWL2dc0oy2V62SU3mlDgGVvOJgTU5pmpTCA4KZ ghJGS9cZ9fQJhVImsi8UZ++bDm4328zLpIPyXoVBwayFQFEHTqvyPLWUt5wluflDFp1CmE3fpKVsSr4G g0Dl17xW43MPWgwvcnl7uABRVp5QTAN4Yc+NXKUB0G Tiv4GsU8yk9acxGShVJAC4oCgzw0eK47bKvv6yMKGAht6RAOShKtDBX715Mb5RIyv6ApgudbNklxIQxH 4p3bWct2lJb+IFISn1k+ZKGHlFEvfyn/NGOMjzye/AvPF7yGZRC7sMZseloCtTFES11s/7haOFtRO9rr bYN60Tr00yE38OkDYPwhqLOpxRD/Dd4wc5Srpf+9aX 3M1bYJErLftP0U3xa6uZHFoGO4G/e2ZbV2fDFYf5EC+090oO8SKgnOAsstERKj1akDKpSKbP9SlZMWut uqqNNf8TV3/EW+oU6ZpaEaKP9KegVMsD1JkXhg8AEBxXx64C/cLE5eoh1XQYQyIuRqWS18W5ZiQGDco8 7ZExG9CFt4X7b9n5KFMg0VTrnenV+e6Q+7L2kzocO2 ZgGKRIm9wXdxsVLel59kKMeRGcO9Z0kjzWzKXI9W+97eYoapHtL7k7vG9IK1cgLSEvz1STb7XB+NEW KOLIGANEK/b [file] T4x2RZpAC0ynU6KhdrWHBK2+2tWSBkb292kbSry6WN4Ypb1JGadzEK7cbhd0GMawf56dLxFGe0tJ/Carlos A [file] g1smVm8XMUhdVb2+Technology Solutions Architect+29u2HYIJLKCYissEoqFIIf5Gphpk0d+eCjMfyPRuUeC48Xttv8PRgfORxebv4 [file] yp/iXCGi/N90ZYj0pzOr0nvtxp1p4l7+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/Mc4kxk9p/+QEQZI/qJp5fmTDokweWjJRhJN+fXwEfAPFu mM6FbgTvgsfmXObFh/Qy3b8gV0WXZinCgT2y9YS3bPAkEexDE4+LXYx7gJSp9RdCt5HLYiX2+Qir67TP tGuzE8Luv3X1a2JGx/JFBilP4KNwN6dHU3c5AG3qBk YG4b9yIYf130fh709M1OD0wTcqMv+yoJ9YPJNL51V0uy5+/UETx4wnT6gKKgLunvpbbcsX5XhCHYXi6w IEb0+7sM4L8TT/845b1SGdIqWrRxGC1A/kicGtl322HYweme0HPcbJHU2Llh2G/P2V7+MNIVuBVJnOCj iqSJ+VEYSdCgb6hX6RP5FPjAhFk1RyQdppCgyL9Bsi BHCmDODaxRkp+pXyirEDYgxEiMHhfeMDP8K1cCbpQ7xmVyshJQpnIoGf8seKE89YNUudYj77FGC8cVbA OF4xwkgn1TMFlVhK9yQKTzjoeUITrdRr9fEcN8UHPNC13QkO6hZKJasOxw1Eup9LzUnzklgwuDKX7RHb Z8No05PhpNuYx7/3tnKoWeJlxcLIxrPInEYJhwkkkM w4ihpDutXz4cMW6nTdxh6tl7sbBChJhjZ76pVU6U935iHgdg9dF+GA81Pbim+VDEOeCwN97sbVm0ISqT WvBnX9wu2nA2QXN6XeLrRWav5ziTObvSom33mpO85wyduCqpr4Tc0Cu1i40kowE9B90vMxH1OLy+aw7L IU1LCPyfycber8fl10OqkCZ04oQ3De7zCmRIrJ/Alfredo [file] XtKf8Q/Tq/QjDgg6dVDEXkPtqoqvVuZZCnYvFNr9Jqz8ZVxuC+vyBTy31uvpavhexHnHICOH7eft/Local Superintendent [file] NU4AdTgcDDICa6qzUydyhfFQtD3PfDdho3GYfme6vUoz9uysl8/health spa manager/kfCiUIOJLhS/awfQ2gp3ZU00q [file] wODYGiIv2N5z7GjayhSjA7up5hsp2TuFwQ/oBAf5ojlNDBrx/7H+Dulce Maria+2MqdQ0zPeKDBjBm2hfljPnOl [file] 1iStRhaSgqWGhuw9/Meño+gbC546DtpXOFAtOVS590 [file] G/2PVEJOs6aljObFzPs76grFb9hwQwV/5NmLlsJas4fJUgqEuSpV4L8o2/2cfRw/CONSTRUCTION AREA MANAGER/AD7OhtWwx3RuE [file] 4YpA0i2HyPt53n/Juan A/o3Rx4F32Yi6oSzinqur626jJx1gB47ld3p94nM0uozr7FEdm1HBpfzbq7C3Z [file] pbx7GoDMC2KkuTuAZNAkgnRNRBNLmkuy2Lf8G8rFYqaXXW6I1nniTq5/Vidal+NVzVZf+2rmqrwZG0oolh BlL7qnleDGhb+bb2V7i2Bpektp2FQbNK7eSD4BaQet23vUp7FtQqiPUVw/Mvirqz4/kkCN2FmTo4VDJI mwx5dlUIgQEBaB4jvfEyM9sKdjBqBMOEBajQjQJUYs EK1URlThWhEpspn0k78ExO6pKPqYlrAvOOQ6De9OP7qcDcDCmJC/OwKtrJSttzEXC1C0uA+T1pzRHEqp 2b8V74CvBTFlwSty4xvYNi3HvQPfKYAU5KoVZNP//n3ouSUTcnsJKTtcDJSDokLCiwVyrSHA+XQMSX+j CIs5l2I4VCNBMw6MWoMz25Pyvr37N9U9ivJenHghdG LtftdQuhWHnGbf3vX/kz7O/j65EvdTuOsPWsxZbKHeQ5jsZkIFhlADsSOOj+4+vz85OfW0jwI6OZgKtD vnExOj+Pw1xrazDzkSO3/JtWkkEY7sDBqe92xZbBbHd+aa1NBiVvQKynM0B7iWp6NqIwXbhDJbgil0Qo a3Rah5G4DEntObNNob9EBt8IUJCxbPDPZndl8lVF3D LhebkxP40kY2oIOn1DSnGpKqmn3kF64HBOpdQDhj94fFwY7Eo+DcgddLmlclm4DLhsxUIUWSWCY5b1t0 QEFhotBT1FVGyj1xo3SEuvpd/UPq4mptSOvu2VjrIyZ15bz8nUAxb77orfICEwCEsIjXnbypX+8wAuEN xTRPqbdz8Whn2dWpEX/diLyIJ3q3FbO2NSR9Yorq7s GgGcSxa53zbD/KLClLULzauuXn7r1p/jk+r5t8RBdIe7mm15dkeBglvBt/sM9JZQDZ6COISanTVT/4BD 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+kEwvAV9Q1lI8R54+znblI0ZYA+nRKB/5tUPRNo4bgmbP1dsgvDaH+qkiCTijYjaiI0eSm5g5J3kmf [file] SRWrlshi28wqUi/ZEgPi+Gn6VY6nBQ9BSLGBckvBNah2v6ksNK8Ytx5osdihtu2Ru79A4d8vxwjg/AIRPLANE FUELER [file] aEMKd6yy409dnyRuaNSoebzjKz+ParnDZ/O1M9SgGL6QcC0kvAm/pc tech+KoGRm2pPRJL6DDx1xbYMYg1k [file] Fátima/fXX2SJaz7OyeUDkqyoCBfyUJwQ5YNfrneiEdKo [file] ZzqCQt+Segun/6mvBcIRGLypg2b3W2XdL13tvUUHsm2Pv2NdFUn31UY7tJLSccCy8wZB6e1VjzBd38n14v 3xJp8Cq/3jMWkdj1Cw03BL648JIn32nAFaJKv6S/oobwDrzybpUNaoNAQkxh996CCvugEiU3nhFkIrjo 6uXvllguNJmQaVACE+rV+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 driver+EwH8GXzQv65US+NY0 [file] RlnCHzrxhYWoqW5pSdxPAmmHCY7IIka4Q+[place]/vBbDLMlgMc8x17i5aY6dY5ts3VNwx9zoWN9WaUfpUR [file] 4fWfveTUrOHWhbeWBqtbVfl3ZtUl78GFUn5mun1S96/FUbg1bBZ1/dAP8lIzc8BY+FyG9bxYk0i7+LOCK 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 [file] DX+X2vxMGED/BPtbpZBX/+04kB7cu0O+b9vwen [file] 32QHWrc7/2dcNg+LXxlzb4eXwCzDwaSeymZha5IOfnZ2zb0tNFQ1MjT6rNHyEUJGZS/TOOL/DIE MAKER/15lVsYwfw [file] pUS0Ak/PzDa+senior care+A03CO+cM+SJN5VTsUYBL3EvE5v [file] Mary [file] 0GFLL+7zgOgnbrRJiGPZJHgMS/Yyf3GLrAbcv4T/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 [file] yfDjNa0kFB54gS9mUXphBYMDUl+o3z6JMmWScY0/PQdqIURBEqf9ACrPyhe+lockstitch machine operator+UPW36tahvvmfyCow [file] uvWVMaUJvKxpoCGF92+i2gs6hVR0aEitThDsvdfxG2E5oRy456pY0N+Pu9ft+rYbAzxwuqUQmB9PC+VIDEO EDITING INTERNSHIP [file] Miguel Ángel+bPSu7gyqPw7YHr8EyHg0KFpDkS3Fh2lU4vuOQa [file] cGf/5nQGjXY/Rn3a8CdZ3DxAjjVbRa63Lc+HazrBo9O0M0BTExuD+vy475C3QVEORRdpxvtRq/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/h/Q [file] 4v38hCGGCKBT7FtJkII7PermfRzEO1jd/Víctor/H2i3IjHU/J4P56Ecmxpbk8rHPkvUM6kqBHvxDnx2KnU [file] x2u/cnc operator machinist+NSJt24fulnv1pSVWW9bp1utfxWzndMohXVL7djJpMP/nMMH/1gb0iPg2gnWlsS9XXOKDr1Ft Pn+8VBtrR0/xDwedXfFn++wo1PLZ0+6Cs55vVv04y4 RH9p+V+M7D95/7fx/xpMLVJ37b7VFE2SlcP0BDShRul8TVoFK9T5VYIFl/jDfi3Wo9wrWjNtz8IbF0su tFt4LVpHX0IyTqh9es8vmqK/oB//I7v0X85w++Vahe+xe1Aw9ESNozGrlvz453iILoLeKFJ0ErosNOAm1 RHB2NhoJPFOucc7frZLuRM/+zBsSi7tlOF2qocfqQA m72rM4JH84MFY2ILtm8R7SI7K1AdWF/zCB9oH3aHYB5FX6r+nwgstmINgsE7Rbz4iEpSzDfQJeqBbeDH NuluivOO4WseFxK1uRBCCjRFmDL7YoS8ekx/6DoRzuYdhBOjPNM5KgWtNllYPxezNxf7e/SQOhV3eJ1G da2cMQ3jOiQ/K1ioYtN7KdmOjC53/9h5K3zizupaOZ NJ6i3oc/RO5MetTzbbBNndBKt2h02TgZtfxdtSoAkubApP00DNijvQ2n6nilDvpslc/dbnZn4GqZkHV+ 8IMp9odPnl9GmADUa5BdcIIZE0EzFvKx8PTg5rdQ1xsZQ9akZvcY5CjW9qZ+ByM8nxIzIh9F1Jyq8hfE cl0Gj4dDSG9OFp6nx9UuPg+fITiNGQSRC7BKr7EEay /y9t0cYe8waqtY3vog5W8+tSb5Go69xnBIUi1jG3lxK4NuqFaW3HlLs8+XGQMOupN+7KCfSrlPuKVfFc T14J4lF/PNHG+7b64R50KOn3R5N1LgEVSWti+hil1E4cJdTCeM5pWMqyJ4FiBxXl2g3jgrXnomV9kvbb 8A5cVCt6B6uGrpD9hT0TcKAqMs3lx0tAigCrn+28Ya iI7vOrf92VlvODG2UGMTcwR90yX8uiBdRJp9O/4mGi3DhPQut7K8enasDDXBBIOxZbDv5YwzafCS4T5A cXfErK/XUYQRTVZwwDVQ9QodhRP7xF4TwfNn72GcK+NIKITA+kCbc8Tk69GQbbpC6f5x74c6SimKbuoTUNEi 7MGpmSSkU3b4/Bl3XbANFAfU7+5554D/vf2acrQv9g Lrfyl8vRZgbjqWjkOkg1oYT9xGTdG3U5GHewPNS9ine4w+gdYduhw3Y+Ot4faNfHvo0unmJSYtpUpJl1 wrHN5O5UeXI5b6LhHlg0ZsslVVUlRGz9FizFWFftIcick9jjsDjPFMZV+BtdIGv0Blw4QlP0jJ6pYIoF 6Eb1IgKemv9rmEqjfSaO2lDjnkFFHlotaHlwO8Wlvq /N9lVoPqwCu8zl4gIieRLopQ8S2IAt1BrDKsqKXTJUrvvsYMsebubkLztGHmJpQzVRMnSPixqYi878Wj 9yvMo10JmrTnO56p0dwtR6EUh921zLLMPhgdHOpYrgmlGOnj3GrTJP38hkpXFA5IHHpdgMwV8iCj+hE0 SHsYfPGmOJJeSL03uJ0MUOUdspuBq6e+X7ls1EOu/N gyXt7uVkiWSk1t3nDO41q0v2crwlkDUBE6hoKUCx1D3+EHUbJBa9NgbkGgTS+cHnq3KTl5U6PVTEMh+r Jg96eXiZ+PD9QbsipAteKVkHY62kextToI6hWHLyLbaaQV32Le+UCUNdwT7cSen3kR246chpjfJcv2uo 7TFVPyDOUgqxRawyfukLc//5LJmXZv69bOxZqpts [file] +R+SrgmMN6ViPyqEjsWda+fátima+3UnWU1aGvKf36k6XeVCAtVgJ26qmJu/5Q0DvA+H8gNMNMCw6jh5Dld [file] 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/pTmGNN7Ip+P656sTkSRCtKaQ64NhkiCPEjEag6ayfGpKihZemM2G3JlUPKjlQvHAom6BQdSW7GF9k [file] VIDEO EDITING INTERNSHIP/5GSkIxTZfmIa15/ORN24SWc/4Ek/q+vMPc89i/A [file] 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+VNFtdyCgQ+RgjM02aI2WARtPANIbClb/D3/21uQg8xh+PokOgeJ+iXyjRn8vjdfRLUMKxqeVE+9nK [file] coding specialist home health/NOI5DJHBGkpz2aPOpkFLUw+rcrjXFRGcgFtOczsyLa2rKP/q8PCnDhLCVBv019sA3LcJyf45biaL [file] pound keeper/NziTvnJEst6vxduZvnzAY4ubpVpmkfZswbj/Ug [file] R4V8DOTwUQCAKYftFPTYHmT0YFLRQFSrCUFDDGvHNZSyELsjUGvxQEF3FCAJYEO4JzJ+EY7Gv304PKSl VONFZ1jpHj4yKvXnIQKwW7k3LXByBC3UhOZpCT9HWr OcT4fkNmUjKKMjWA1+i8OrRBBnQVv66aWxMWJQUhERyebh2mZNcqCXyESBKUOniMRuEQVXU3HsySJE0Q 79NPXMyiDyK5DWqLlERV1aStNJyMY0MuSpkOpQczKV3lrAyOZqDwSKqDRJJEryjcTloAOsJZ0QWhIiDP 1dno2CEiS9SSS3uQZnVn0FRRi7IXV7VL0RDNQCS7A= ID Date Data Source [id number] 06/22/2019 07:19:51 AM EST [facility] INFORMATIONPatient MRN Name Date of Age Gend*PT [id number] Elena Marroquin 1965 54 years F ---PT Location Admission Date/Time Visit ID Attending Provider --- --- --- --- EPI ID CSN Admitting Provider [id number] ---Name: Elena MarroquinDOB: 1965Date: 06/22/19CIED Remote CheckImplanted Device 06/17/2019Device Yard Operator MedtronicDevice type Single Chamber ICDMRI Conditional Device -Device was remotely interrogated and the following were evaluated:Battery statusSummary arrhythmia logsNew observationsFidelity of the EGM signalIntegrity of leads and lead impendence were reevaluatedConclusion:Normal ICD function.No significant changes continue to monitor.Signature: Law Vasquez MD, FACC, RSCardiac Electrophysiology and Arrhythmia ServiceDate: June 22, 2019Time: 7:19 AMThis document or parts of this document, were dictated using COVEGAware. A reasonable attempt at proofreading has been made to minimize errors.Please call with any questions or corrections. Name Value Range Interpretation Code Description Data Moni rce(s) Supporting Document(s) ID Date Data Source [id number] 06/22/2019 07:19:51 AM EST [facility] INFORMATIONPatient MRN Name Date of Age Gend*PT [id number] Elena Marroquin 1965 54 years F ---PT Location Admission Date/Time Visit ID Attending Provider --- --- --- --- EPI ID CSN Admitting Provider [id number] ---Heart Failure Management ReportPatient has a history of ventricular tachycardia. According to this report,patient has not had VT/VF. There is not evidence of AT/AF. In regards toOptivol, patient has not crossed fluid threshold. Average ventricular responseat night is 70.Low Torres document or parts of this document, were dictated using [employer]elo[employer]. A reasonable attempt at proofreading has been [...] co mpleted Patient has never smoked [facility] ([facility]) Alcohol Use Details 02/20/2020 12:00:00 AM EDT completed wine 1 drink rarely [facility] ([facility]) 02/20/2020 12:00:00 AM EDT Never smoked tobacco comple alexys Never smoked tobacco [facility] ([facility]) Alcohol intake 01/15/2020 12:00:00 AM EDT Current non-d crystal of alcohol (finding) completed Current non-drinker of alcohol (finding) [facility] Tobacco use and exposure 01/15/2020 12:00:00 AM EDT Never used co mpleted Never used [facility] Smoking 01/15/2020 12:00:00 AM EDT Never smoker completed Never s [facility] Caffeine Use Details 07/12/2019 12:00:00 AM EST soda, 8 oz completed soda, 8 oz [facility] ([facility]) Vital Signs ID Date Data Source UNK Name Value Range Interpretation Code Description Data Source(s) [place] body weight 120 [lb_av] 120 [lb_av] [facility] ([facility]) Oxygen saturation in Arterial blood by Pulse oximetry 93 % 93 % [facility] Body temperature 99.2 [degF] 99.2 [degF] [facility] ([facility]) Respiratory rate 18 /min 18 /min [facility] ( [facility]) Heart rate 112 /min 112 /min [facility] ([facility]) Body height 64 [in_i] 64 [in_i] [facility] ([facility]) 5'4" Diastolic blood pressure 78 mm[Hg] 78 mm[Hg] [facility] ([facility]) Systolic blood pressure 128 mm[Hg] 128 mm[Hg] [facility] ([facility]) [place] body weight 120 [lb_av] 120 [lb_av] [facility] ([facility]) Oxygen saturation in Arterial blood by Pulse oximetry 97 % 97 % [facility] ([facility]) Body temperature 99.4 [degF] 99.4 [degF] [facility]) Respiratory rate 18 /min 18 /min [facility] ( [facility]) Heart rate 121 /min 121 /min [facility] ([facility]) Body mass index (BMI) [Ratio] 32.4 kg/m2 32.4 k g/m2 [facility] ([facility]) Body weight 189.00 [lb_av] 189.00 [lb_av] [facility] ([facility]) Body height 64 [in_i] 64 [in_i] [facility] ([facility]) 5'4" Diastolic blood pressure 84 mm[Hg] 84 mm[Hg] [facility] ([facility]) Systolic blood pressure 140 mm[Hg] 140 mm[Hg] [facility] [place] body weight 120 [lb_av] 120 [lb_av] [facility] ([facility]) Oxygen saturation in Arterial blood by Pulse oximetry 99 % 99 % [facility]) Body temperature 98.6 [degF] 98.6 [degF] [facility] ([facility]) Respiratory rate 20 /min 20 /min [facility] ( [facility]) Heart rate 112 /min 112 /min [facility] ([facility]) Body height 64 [in_i] 64 [in_i] [facility] ([facility]) 5'4" Diastolic blood pressure 88 mm[Hg] 88 mm[Hg] [facility] ([facility]) Systolic blood pressure 132 mm[Hg] 132 mm[Hg] M [facility] ([facility]) [place] body weight 120 [lb_av] 120 [lb_av] [facility] ([facility]) Oxygen saturation in Arterial blood by Pulse oximetry 98 % 98 % [facility] ([facility]) Body temperature 98.9 [degF] 98.9 [degF] [facility] ([facility]) Respiratory rate 18 /min 18 /min [facility] ( [facility]) Heart rate 96 /min 96 /min [facility] ([facility]) Body mass index (BMI) [Ratio] 34.8 kg/m2 34.8 k g/m2 [facility] ([facility]) Body weight 202.50 [lb_av] 202.50 [lb_av] MEDEN T ([facility]) Body height 64 [in_i] 64 [in_i] [facility] ([facility]) 5'4" Diastolic blood pressure 76 mm[Hg] 76 mm[Hg] [facility] ([facility]) Systolic blood pressure 132 mm[Hg] 132 mm[Hg] M EDENT ([facility]) Body mass index (BMI) [Ratio] 34.33 kg/m2 Overweight 34.33 kg/m2 [facility] ([facility]) Diastolic blood pressure 72 mm[Hg] 72 mm[Hg] [facility] ([facility]) Systolic blood pressure 104 mm[Hg] 104 mm[Hg] N [facility] ([facility]) Body weight 90.718 kg 90.718 kg [facility] ([facility]) Body height 162.56 cm 162.56 cm [facility] ([facility]) Respiratory rate 20 /min 20 /min [facility] ( [facility]) Heart rate 59 /min 59 /min [facility] ([facility]) Body mass index (BMI) [Ratio] 34.5 kg/m2 34.5 k g/m2 [facility] ([facility]) Body weight 201.12 [lb_av] 201.12 [lb_av] MEDEN T ([facility]) Body height 64 [in_i] 64 [in_i] [facility] ([facility]) 5'4" Diastolic blood pressure 80 mm[Hg] 80 mm[Hg] [facility] ([facility]) Systolic blood pressure 137 mm[Hg] 137 mm[Hg] M EDENT ([facility]) [place] body weight 120 [lb_av] 120 [lb_av] MEDEN T ([facility]) Oxygen saturation in Arterial blood by Pulse oximetry 100 % 100 % [facility] ([facility]) Body temperature 98.3 [degF] 98.3 [degF] [facility] ([facility]) Body mass index (BMI) [Ratio] 34.84 kg/m2 Overweight 34.84 kg/m2 [facility] ([facility]) Diastolic blood pressure 80 mm[Hg] 80 mm[Hg] [facility] ([facility]) Systolic blood pressure 142 mm[Hg] 142 mm[Hg] N [facility] ([facility]) Body weight 92.079 kg 92.079 kg [facility] ([facility]) Body height 162.56 cm 162.56 [facility] Oxygen saturation in Arterial blood by Pulse oximetry 92 % 92 % [facility] ([facility]) Body temperature 99.0 [degF] 99.0 [degF] [facility] ([facility]) Respiratory rate 20 /min 20 /min [facility] ( [facility]) Heart rate 102 /min 102 /min [facility] ([facility]) Body mass index (BMI) [Ratio] 33.0 kg/m2 33.0 k g/m2 [facility] ([facility]) Body weight 192.38 [lb_av] 192.38 [lb_av] MEDEN T ([facility]) Body height 64 [in_i] 64 [in_i] [facility] ([facility] 5'4" Diastolic blood pressure 78 mm[Hg] 78 mm[Hg] [facility] ([facility]) Systolic blood pressure 134 mm[Hg] 134 mm[Hg] M EDENT ([facility]) Body height 64 [in_i] 64 [in_i] JAIRO ([facility]) Body height 64 [in_i] 64 [in_i] [facility] ([facility]) Body height 64 [in_i] 64 [in_i] [facility] ([facility]) Body height 64 [in_i] 64 [in_i] JA[facility] ([facility]) Body height 64 [in_i] 64 [in_i] JAIR[facility] ([facility]) Body mass index (BMI) [Ratio] 31.41 kg/m2 Overweight 31.41 kg/m2 [facility] ([facility]) Diastolic blood pressure 74 mm[Hg] 74 mm[Hg] [facility] ([facility]) Systolic blood pressure 128 mm[Hg] 128 mm[Hg] N [facility] ([facility]) Body weight 83.007 kg 83.007 kg [facility] ([facility]) Body height 162.56 cm 162.56 cm [facility] ([facility]) Oxygen saturation in Arterial blood by Pulse oximetry 97 % 97 % [facility] ([facility]) Body temperature 98.9 [degF] 98.9 [degF] [facility] ([facility]) Respiratory rate 18 /min 18 /min [facility] ( [facility]) Heart rate 76 /min 76 /min [facility] ([facility]) Body mass index (BMI) [Ratio] 31.4 kg/m2 31.4 k g/m2 [facility] ([facility]) Body weight 183.00 [lb_av] 183.00 [lb_av] MEDEN T ([facility]) Body height 64 [in_i] 64 [in_i] [facility] ([facility]) 5'4" Diastolic blood pressure 84 mm[Hg] 84 mm[Hg] [facility] ([facility]) Systolic blood pressure 128 mm[Hg] 128 mm[Hg] M EDENT ([facility]) Systolic blood pressure 129 mm[Hg] 129 mm[Hg] A THENA ([facility]) Body height 64 [in_i] 64 [in_i] JAIRO ([facility]) Diastolic blood pressure 81 mm[Hg] 81 mm[Hg] [facility] ([facility]) Systolic blood pressure 129 mm[Hg] 129 mm[Hg] A THENA ([facility]) Body height 64 [in_i] 64 [in_i] JAIR[facility] ([facility]) Diastolic blood pressure 81 mm[Hg] 81 mm[Hg] [facility] ([facility]) Systolic blood pressure 129 mm[Hg] 129 mm[Hg] A THENA ([facility]) Body height 64 [in_i] 64 [in_i] JAIRO ([facility]) Diastolic blood pressure 81 mm[Hg] 81 mm[Hg] JAIRO ([facility]) Systolic blood pressure 129 mm[Hg] 129 mm[Hg] A THENA ([facility]) Body height 64 [in_i] 64 [in_i] JAIRO ([facility]) Diastolic blood pressure 81 mm[Hg] 81 mm[Hg] JAIR[facility] ([facility]) Systolic blood pressure 129 mm[Hg] 129 mm[Hg] A THENA ([facility]) Body height 64 [in_i] 64 [in_i] JAIRO ([facility]) Diastolic blood pressure 81 mm[Hg] 81 mm[Hg] JAIRO ([facility]) Systolic blood pressure 129 mm[Hg] 129 mm[Hg] A THENA ([facility]) Body height 64 [in_i] 64 [in_i] JAIRO ([facility]) Diastolic blood pressure 81 mm[Hg] 81 mm[Hg] JAIRO ([facility]) Systolic blood pressure 129 mm[Hg] 129 mm[Hg] A THENA ([facility]) Body height 64 [in_i] 64 [in_i] JAIRO ([facility]) Diastolic blood pressure 81 mm[Hg] 81 mm[Hg] [facility] [facility]) Systolic blood pressure 129 mm[Hg] 129 mm[Hg] A THENA ([facility]) Body height 64 [in_i] 64 [in_i] JAIRO ([facility]) Diastolic blood pressure 81 mm[Hg] 81 mm[Hg] JAIRO ([facility]) Body mass index (BMI) [Ratio] 30.21 kg/m2 Overweight 30.21 kg/m2 Next[facility] ([facility]) Diastolic blood pressure 58 mm[Hg] 58 mm[Hg] [facility] ([facility]) Systolic blood pressure 98 mm[Hg] 98 mm[Hg] N extGen ([facility]) Body weight 79.832 kg 79.832 kg [facility] ([facility]) Body height 162.56 cm 162.56 cm [facility] ([facility]) Oxygen saturation in Arterial blood by Pulse oximetry 99 % 99 % MEDENT ([facility]) Body temperature 99.1 [degF] 99.1 [degF] MEDENT ([facility]) Respiratory rate 18 /min 18 /min MEDENT ( [facility]) Heart rate 65 /min 65 /min MEDENT ([facility]) Body mass index (BMI) [Ratio] 30.7 kg/m2 30.7 k g/m2 MEDENT ([facility]) Body weight 179.12 [lb_av] 179.12 [lb_av] MEDEN T ([facility]) Body height 64 [in_i] 64 [in_i] MEDENT ([facility]) 5'4" Diastolic blood pressure 84 mm[Hg] 84 mm[Hg] MEDENT ([facility]) Systolic blood pressure 128 mm[Hg] 128 mm[Hg] M EDENT ([facility]) Systolic blood pressure 140 mm[Hg] 140 mm[Hg] A THENA ([facility]) Body height 64 [in_i] 64 [in_i] JAIRO ([facility]) Diastolic blood pressure 80 mm[Hg] 80 mm[Hg] JAIRO ([facility]) Systolic blood pressure 140 mm[Hg] 140 mm[Hg] A THENA ([facility]) Body height 64 [in_i] 64 [in_i] JAIRO ([facility]) Diastolic blood pressure 80 mm[Hg] 80 mm[Hg] JAIRO ([facility]) Body height 64 [in_i] 64 [in_i] JAIRO ([facility]) Diastolic blood pressure 80 mm[Hg] 80 mm[Hg] JAIRO ([facility]) Systolic blood pressure 140 mm[Hg] 140 mm[Hg] A THENA ([facility]) Body height 64 [in_i] 64 [in_i] JAIRO ([facility]) Diastolic blood pressure 80 mm[Hg] 80 mm[Hg] JAIRO ([facility]) Systolic blood pressure 140 mm[Hg] 140 mm[Hg] A THENA ([facility]) Body height 64 [in_i] 64 [in_i] JAIRO ([facility]) Diastolic blood pressure 80 mm[Hg] 80 mm[Hg] JAIRO ([facility]) Systolic blood pressure 140 mm[Hg] 140 mm[Hg] A THENA ([facility]) Systolic blood pressure 140 mm[Hg] 140 mm[Hg] A THENA ([facility]) Body height 64 [in_i] 64 [in_i] JAIRO ([facility]) Diastolic blood pressure 80 mm[Hg] 80 mm[Hg] JAIRO ([facility]) Diastolic blood pressure 80 mm[Hg] 80 mm[Hg] JAIRO ([facility]) Systolic blood pressure 140 mm[Hg] 140 mm[Hg] A THENA ([facility]) Body height 64 [in_i] 64 [in_i] JAIRO ([facility]) Diastolic blood pressure 80 mm[Hg] 80 mm[Hg] JAIRO ([facility]) Systolic blood pressure 140 mm[Hg] 140 mm[Hg] A THENA ([facility]) Body height 64 [in_i] 64 [in_i] JAIRO ([facility]) Systolic blood pressure 140 mm[Hg] 140 mm[Hg] A THENA ([facility]) Body height 64 [in_i] 64 [in_i] JAIRO ([facility]) Diastolic blood pressure 80 mm[Hg] 80 mm[Hg] JAIRO ([facility]) Patient Treatment Plan of Care Planned Activity [...] a] 06/14/2019 12:00:00 AM EST [facility] ([facility]) Leucovorin 5 MG Oral Tablet 06/06/2019 12:00:00 AM EST [facility] ([facility]) gabapentin 300 MG Oral Capsule 05/11/2019 12:00:00 AM EST [facility] ([facility]) Nystatin [id number] UNT/ML Oral Suspension 04/05/2019 12:00:00 AM EST [...] 01/04/2019 12:00:00 AM EDT JAIRO ([facility]) Oxycodone Hydrochloride 5 MG Oral Tablet 01/04/2019 12:00:00 AM EDT JAIRO ([facility]) Oxycodone Hydrochloride 5 MG Oral Tablet 01/04/2019 12:00:00 AM EDT JAIRO ([facility]) Oxycodone Hydrochloride 5 MG Oral Tablet 01/04/2019 12:00:00 AM EDT JAIRO ([facility]) Oxycodone Hydrochloride 5 MG Oral Tablet 01/04/2019 12:00:00 AM EDT JAIRO ([facility]) Oxycodone Hydrochloride 5 MG Oral Tablet 01/04/2019 12:00:00 AM EDT JAIRO ([facility]) Oxycodone Hydrochloride 5 MG Oral Tablet 01/04/2019 12:00:00 AM EDT JAIRO ([facility]) Oxycodone Hydrochloride 5 MG Oral Tablet 01/04/2019 12:00:00 AM EDT JAIRO ([facility]) 0.9 ML tocilizumab 180 MG/ML Prefilled Syringe [Actemr a] 12/09/2018 12:00:00 AM EDT [facility] ([facility]) rifaximin 550 MG Oral Tablet [XIFAXAN] JAIRO ([facility]) Sulfamethoxazole 800 MG / Trimethoprim 160 MG Oral Tablet JAIRO ([facility]) Prednisone 20 MG Oral Tablet JAIRO ([facility]) Prednisone 10 MG Oral Tablet JAIRO ([facility]) Metformin hydrochloride 1000 MG Oral Tablet JAIRO ([facility]) gabapentin 300 MG Oral Capsule JAIRO ([facility]) Doxycycline Monohydrate 100 MG Oral Tablet JAIRO ([facility]) Dicyclomine Hydrochloride 20 MG Oral Tablet JAIRO ([facility]) Dicyclomine Hydrochloride 10 MG Oral Capsule JAIRO ([facility]) Diclofenac Sodium 75 MG Delayed Release Oral Tablet JAIRO ([facility]) Diclofenac Sodium 25 MG Delayed Release Oral Tablet JAIRO ([facility]) Cyclobenzaprine hydrochloride 10 MG Oral Tablet JAIRO ([facility]) Clindamycin 300 MG Oral Capsule JAIRO ([facility]) Cefuroxime 500 MG Oral Tablet JAIRO ([facility]) Carisoprodol 350 MG Oral Tablet JAIRO ([facility]) Amitriptyline Hydrochloride 25 MG Oral Tablet JAIRO ([facility]) Actemra 1 injection every week JAIRO ([facility]) Prednisone 20 MG Oral Tablet JAIRO ([facility]) gabapentin 300 MG Oral Capsule JAIRO ([facility]) Doxycycline Monohydrate 100 MG Oral Tablet JAIRO ([facility]) Prednisone 20 MG Oral Tablet JAIRO ([facility]) gabapentin 300 MG Oral Capsule JAIRO ([facility]) Doxycycline Monohydrate 100 MG Oral Tablet JAIRO ([facility]) Prednisone 20 MG Oral Tablet JAIRO ([facility]) gabapentin 300 MG Oral Capsule JAIRO ([facility]) Doxycycline Monohydrate 100 MG Oral Tablet JAIRO ([facility]) Prednisone 20 MG Oral Tablet JAIRO ([facility]) gabapentin 300 MG Oral Capsule JAIRO ([facility]) Doxycycline Monohydrate 100 MG Oral Tablet JAIRO ([facility]) Prednisone 5 MG Oral Tablet JAIRO ([facility]) Prednisone 20 MG Oral Tablet JAIRO ([facility]) gabapentin 300 MG Oral Capsule JAIRO ([facility]) Fluzone Quad (PF) 60 mcg (15 mcg x 4)/0.5 mL IM syringe JAIRO ([facility]) Doxycycline Monohydrate 100 MG Oral Tablet JAIRO ([facility]) Prednisone 5 MG Oral Tablet JAIRO ([facility]) Prednisone 20 MG Oral Tablet JAIRO ([facility]) gabapentin 300 MG Oral Capsule JAIRO ([facility]) Fluzone Quad (PF) 60 mcg (15 mcg x 4)/0.5 mL IM syringe JAIRO ([facility]) Doxycycline Monohydrate 100 MG Oral Tablet JAIRO ([facility]) Prednisone 5 MG Oral Tablet JAIRO ([facility]) Prednisone 20 MG Oral Tablet JAIRO ([facility]) Potassium Chloride 10 MEQ Extended Release Oral Tablet JAIRO ([facility]) gabapentin 300 MG Oral Capsule JAIRO ([facility]) Fluzone Quad (PF) 60 mcg (15 mcg x 4)/0.5 mL IM syringe JAIRO ([facility]) Doxycycline Monohydrate 100 MG Oral Tablet JAIRO ([facility]) Hydrochlorothiazide 12.5 MG Oral Tablet [facility] ([facility]) 24 HR venlafaxine 150 MG Extended Release Oral Capsule [Effexor] [facility] ([facility]) Colesevelam hydrochloride 625 MG Oral Tablet [facility] ([facility])
[2020-07-11] MEDS ORDERED: ISOVUE-370 76% 100ML VIAL As Ordered ONE (20:37)
[2020-07-11 20:45] LABS: ALBUMIN 3.3 GM/DL (3.2-5.2); BILIRUBIN,DIRECT 0.2 MG/DL (0.0-0.2); TOTAL PROTEIN 6.7 GM/DL (6.4-8.2)
[2020-07-11] MEDS ORDERED: DICY10CA13 PO (20:45)
[2020-07-11] MEDS ORDERED: METH2.5T48 PO (20:45)
[2020-07-11] MEDS ORDERED: VENL75CA2 PO (20:45)
[2020-07-11] MEDS ORDERED: PRED5TA PO (20:45)
[2020-07-11] MEDS ORDERED: NYST10CR TOP (20:45)
[2020-07-11] MEDS ORDERED: LEUC5TA PO (20:45)
[2020-07-11] MEDS ORDERED: VITMTA PO (20:45)
[2020-07-11] MEDS ORDERED: AMIT50TA PO (20:45)
[2020-07-11] MEDS ORDERED: LOMO2.5T PO (20:45)
[2020-07-11] MEDS ORDERED: CLON1TAB17 PO (20:45)
[2020-07-11] MEDS ORDERED: SPIR-10 PO (20:45)
[2020-07-11] MEDS ORDERED: CYCL-707 PO (20:45)
[2020-07-11] MEDS ORDERED: OZEM2INJ SC (20:45)
[2020-07-11] MEDS ORDERED: HYDR-4514 PO (20:45)
[2020-07-11] MEDS ORDERED: METO25TA4 PO (20:45)
[2020-07-11] MEDS ORDERED: OREN1INJ SC (20:45)
[2020-07-11] MEDS ORDERED: CLON2TAB7 PO (20:45)
[2020-07-11] MEDS ORDERED: HYDR-3490 PO (20:45)
[2020-07-11] MEDS ORDERED: VIBE1TAB PO (20:45)
[2020-07-11] MEDS ORDERED: LOSA100T50 PO (20:45)
[2020-07-11] MEDS ORDERED: CEVI1CAP PO (20:45)
[2020-07-11] MEDS ORDERED: VENL150C43 PO (20:45)
[2020-07-11] MEDS ORDERED: ATOR40TA75 PO (20:45)
[2020-07-11] MEDS ORDERED: HYOS0.374 PO (20:45)
[2020-07-11] MEDS ORDERED: FISH1000 PO (20:46)
[2020-07-11 21:27] LABS: RSV AMPLIFICATION NEGATIVE (NEGATIVE)
--- NOTE | 2020-07-11 21:55 | REPVR ---
PROCEDURE INFORMATION: Exam: CT Abdomen And Pelvis With Contrast Exam date and time: 07/11/2020 8:41 PM Age: 55 years old Clinical indication: Abdominal pain; Generalized; Additional info: L flank pain, urinary hesitancy, UTI, chronic back pain TECHNIQUE: Imaging protocol: Computed tomography of the abdomen and pelvis with contrast. Radiation optimization: All CT scans at this facility use at least one of these dose optimization techniques: automated exposure control; mA and/or kV adjustment per patient size (includes targeted exams where dose is matched to clinical indication); or iterative reconstruction. Contrast material: ISOVUE 370; Contrast volume: 100 ml; Contrast route: INTRAVENOUS (IV); COMPARISON: CT ABD PELVIS WITH CONTRAST 05/16/2019 12:59 PM FINDINGS: Lungs: There is hazy infiltrate at the left lung base. Pleural spaces: There is no evidence of pleural effusion. Heart: There is mild cardiac enlargement with no evidence of pericardial effusion. Liver: There is a 1.5 cm cyst upper aspect of the right lobe of the liver and unchanged. Gallbladder and bile ducts: Gallbladder is fluid filled and appearing within the range of normal. Pancreas: There is some fatty infiltration of the pancreas. Spleen: Normal. No splenomegaly. Adrenal glands: Normal appearing adrenal glands. Kidneys and ureters: There is enhancement of both kidneys. The left kidney is swollen. There is mild prominence of the left renal pelvis and left ureter. There is hazy increased density throughout the left pararenal space and all new since the previous examination of 05/16/2019. There is fluid along the left paracolic space as well extending to pelvis. This may be secondary to previous obstruction with extravasation of urine and associated pyelonephritis. Stomach and bowel: The patient is status post gastric bypass. The stomach is anastomosis to small bowel and anterior to the transverse colon. This has changed position since 05/16/2019 examination and has become more midline. This anastomosed loop of small bowel is narrowed compared to 05/16/2019. Perhaps utilization of oral contrast and following this would be helpful for further evaluation. There is also an anastomosis at the left lower quadrant which appears patent. Appendix: The cecum is in the right pelvis and the appendix appears within the range of normal. Intraperitoneal space: There is no evidence pneumoperitoneum. Vasculature: There is opacification of the SMV and the SMA. There is opacification of the aorta which appears intact. Lymph nodes: Unremarkable. No enlarged lymph nodes. Urinary bladder: Normal urinary bladder. Reproductive: Patient is status post hysterectomy. There is a 2 cm cyst of the left ovary. Bones/joints: There is a screw and bar device L5-S1 with an opaque spacing graft at the L5-S1 disc space. Soft tissues: Unremarkable. IMPRESSION: 1. The left kidney is swollen and there is mild dilatation and stranding at the left ureter. 2. Stranding density in the left pararenal space surrounding the left kidney and some fluid along the left paracolic space to the pelvis. This may be secondary to partial obstruction and pyelonephritis. The changes surrounding the left kidney could be secondary to infection and extravasation urine. 3. There is a gastric bypass. However, the anastomosis of the stomach to the small bowel and surgical clips is anterior to the transverse colon and this has shifted to the midline from the left abdomen since the previous exam. This segment is now tapered. Suggest correlation with oral contrast to be followed through this segment with CT. Findings were discussed with MERCED ROTH at 07/11/2020 9:55 PM EST. Electronically signed by: Ignacio Nielsen On 07/11/2020 21:55:26 PM
[2020-07-11] MEDS ORDERED: MORPHINE 4 MG/ML 1ML VIAL/SYRINGE (J2270) IV ONE (22:15)
[2020-07-11] MEDS ORDERED: ONDANSETRON 4MG/2ML VIAL IV ONE (22:15)
[2020-07-11] MEDS ORDERED: PHENAZOPYRIDINE 100 MG TAB PO ONE (22:15)
[2020-07-11] MEDS ORDERED: ONDANSETRON 4MG/2ML VIAL IV PRN (23:30)
[2020-07-11] MEDS ORDERED: MORPHINE 2 MG/ML 1ML VIAL (J2270) IV PRN (23:30)
[2020-07-11] MEDS ORDERED: LOMOTIL 2.5MG/0.025MG TABLET PO PRN (23:45)
[2020-07-11] MEDS ORDERED: NYSTATIN CREAM 15 GM TOP PRN (23:45)
[2020-07-11] MEDS ORDERED: DICYCLOMINE 10 MG CAP PO PRN (23:45)
[2020-07-11 23:51] LABS: CALCIUM LEVEL 8.7 MG/DL (8.5-10.1); CREATININE FOR GFR 1.21 MG/DL (0.55-1.30); GLOMERULAR FILTRATION RATE 48.8 (>51); POTASSIUM SERUM 3.5 MEQ/L (3.5-5.1)
--- OUTSIDE RECORDS SUMMARY | 2020-07-11 23:52 | CCD ---
Author Author [facility] Organization [facility] Address Unknown Phone Unavailable Care Team Providers Care Valve Pipe Irrigator Name Role Phone Ryan NEWELL MD Unavailable [...] SETTER, Ryan PURVIS MD Unavailable Unavailable Wall [employer] RETAILER SALES CONSULTANT, A Hyun Unavailable [phone] Wall [employer] RETAILER SALES CONSULTANT, A Hyun Unavailable [phone] Wall [employer] RETAILER SALES CONSULTANT, A Hyun Unavailable [phone] Wall [employer] RETAILER SALES CONSULTANT, A Hyun Unavailable [phone] Wall [employer] RETAILER SALES CONSULTANT, A Hyun Unavailable [phone] Sunita Sen MD Unavailable Unavailable Sunita Sen [...] Foy MD Unavailable Unavailable Jumalon, M Wendi [employer] RETAILER SALES CONSULTANT Unavailable Unavailable Jumalon, M Wendi [employer] RETAILER SALES CONSULTANT Unavailable Unavailable Jumalon, M Wendi [employer] RETAILER SALES CONSULTANT Unavailable Unavailable Jumalon, M Wendi [employer] RETAILER SALES CONSULTANT Unavailable Unavailable Jumalon, M Wendi [employer] RETAILER SALES CONSULTANT Unavailable Unavailable Jumalon, M Wendi [employer] RETAILER SALES CONSULTANT Unavailable Unavailable Jumalon, M Wendi [employer] RETAILER SALES CONSULTANT Unavailable Unavailable Jumalon, M Wendi [employer] RETAILER SALES CONSULTANT Unavailable Unavailable Jumalon, M Wendi [employer] RETAILER SALES CONSULTANT Unavailable Unavailable Jumalon, M Wendi [employer] RETAILER SALES CONSULTANT Unavailable Unavailable Jumalon, M Wendi [employer] RETAILER SALES CONSULTANT Unavailable Unavailable Jumalon, M Wendi [employer] RETAILER SALES CONSULTANT Unavailable Unavailable Jumalon, M Wendi [employer] RETAILER SALES CONSULTANT Unavailable Unavailable Jumalon, M Wendi [employer] RETAILER SALES CONSULTANT Unavailable Unavailable Jumalon, M Wendi [employer] RETAILER SALES CONSULTANT Unavailable Unavailable Jumalon, M Wendi [employer] RETAILER SALES CONSULTANT Unavailable Unavailable Jumalon, M Wendi [employer] RETAILER SALES CONSULTANT Unavailable Unavailable Jumalon, M Wendi [employer] RETAILER SALES CONSULTANT Unavailable Unavailable Jumalon, M Wendi [employer] RETAILER SALES CONSULTANT Unavailable Unavailable Jumalon, M Wendi [employer] RETAILER SALES CONSULTANT Unavailable Unavailable Jumalon, M Wendi [employer] RETAILER SALES CONSULTANT Unavailable Unavailable Jumalon, M Wendi [employer] RETAILER SALES CONSULTANT Unavailable Unavailable Jumalon, M Wendi [employer] RETAILER SALES CONSULTANT Unavailable Unavailable Jumalon, M Wendi [employer] RETAILER SALES CONSULTANT Unavailable Unavailable Jumalon, M Wendi [employer] RETAILER SALES CONSULTANT Unavailable Unavailable Jumalon, M Wendi [employer] RETAILER SALES CONSULTANT Unavailable Unavailable Jumalon, M Wendi [employer] RETAILER SALES CONSULTANT Unavailable Unavailable Jumalon, M Wendi [employer] RETAILER SALES CONSULTANT Unavailable Unavailable Berlin, Lexa PA Unavailable Unavailable [...] Tucker, Esau Norma RPA Unavailable Unavailable Tucker, Valdosta Norma RPA Unavailable Unavailable Utcker, Valdosta Norma RPA Unavailable Unavailable Tucker, Valdosta Norma RPA Unavailable Unavailable Tucker, Valdosta Norma RPA Unavailable Unavailable Tucker, Esau Norma RPA Unavailable Unavailable Tucker, Esau Norma RPA Unavailable Unavailable Tucker, Valdosta Norma RPA Unavailable Unavailable Tucker, Valdosta Norma RPA Unavailable Unavailable Tucker, Esau Norma RPA Unavailable Unavailable Tucker, Valdosta Norma RPA Unavailable Unavailable Tucker, [place] Norma RPA Unavailable Unavailable Tucker, [place] Norma RPA Unavailable Unavailable Tucker, Esau Norma RPA Unavailable Unavailable Tucker, Valdosta Norma RPA Unavailable Unavailable Tucker, Valdosta Norma RPA Unavailable Unavailable Tucker, Valdosta Norma RPA Unavailable Unavailable Tucker, Esau Norma RPA Unavailable Unavailable Tucker, Esau Norma RPA Unavailable Unavailable Tucker, Valdosta Norma RPA Unavailable Unavailable Tucker, Esau Norma [...] GERARDO DO Unavailable Unavailable Jumalon, M Wendi [employer] RETAILER SALES CONSULTANT Unavailable Unavailable Jumalon, M Wnedi [employer] RETAILER SALES CONSULTANT Unavailable Unavailable Jumalon, M Wendi [employer] RETAILER SALES CONSULTANT Unavailable Unavailable Jumalon, M Wendi [employer] RETAILER SALES CONSULTANT Unavailable Unavailable Jumalon, M Wendi [employer] RETAILER SALES CONSULTANT Unavailable Unavailable Jumalon, M Wendi [employer] RETAILER SALES CONSULTANT Unavailable Unavailable Jumalon, M Wendi [employer] RETAILER SALES CONSULTANT Unavailable Unavailable Jumalon, M Wendi [employer] RETAILER SALES CONSULTANT Unavailable Unavailable Jumalon, M Wendi [employer] RETAILER SALES CONSULTANT Unavailable Unavailable Jumalon, M Wendi [employer] RETAILER SALES CONSULTANT Unavailable Unavailable Jumalon, M Wendi [employer] RETAILER SALES CONSULTANT Unavailable Unavailable Jumalon, M Wendi [employer] RETAILER SALES CONSULTANT Unavailable Unavailable Jumalon, M Wendi [employer] RETAILER SALES CONSULTANT Unavailable Unavailable Jumalon, M Wendi [employer] RETAILER SALES CONSULTANT Unavailable Unavailable Jumalon, M Wendi [employer] RETAILER SALES CONSULTANT Unavailable Unavailable Jumalon, M Wendi [employer] RETAILER SALES CONSULTANT Unavailable Unavailable Jumalon, M Wendi [employer] RETAILER SALES CONSULTANT Unavailable Unavailable Jumalon, M Wendi [employer] RETAILER SALES CONSULTANT Unavailable Unavailable Jumalon, M Wendi [employer] RETAILER SALES CONSULTANT Unavailable Unavailable Jumalon, M Wendi [employer] RETAILER SALES CONSULTANT Unavailable Unavailable Jumalon, M Wendi [employer] RETAILER SALES CONSULTANT Unavailable Unavailable Jumalon, M Wendi [employer] RETAILER SALES CONSULTANT Unavailable Unavailable Jumalon, M Wendi [employer] RETAILER SALES CONSULTANT Unavailable Unavailable Jumalon, M Wendi [employer] RETAILER SALES CONSULTANT Unavailable Unavailable Jumalon, M Wendi [employer] RETAILER SALES CONSULTANT Unavailable Unavailable Jumalon, M Wendi [employer] RETAILER SALES CONSULTANT Unavailable Unavailable Jumalon, M Wendi [employer] RETAILER SALES CONSULTANT Unavailable Unavailable Lucho Amador MD Unavailable Unavailable Lucho Amador MD Unavailable Unavailable Lucho Amador MD Unavailable Unavailable uLcho Amador MD Unavailable Unavailable Lucho Amador MD [...] Unavailable MARK-CAROLEE, GERARDO DO Unavailable Unavailable MARK-CAROLEE, GERADRO DO Unavailable Unavailable MARK-CAROLEE, GERARDO DO Unavailable [...] MARK-CAROLEE, GERARDO DO Unavailable Unavailable Pikarsky, Enrrique MERCHANDISE DELIVERER Unavailable Unavailable Pikarsky, Enrrique MERCHANDISE DELIVERER Unavailable Unavailable Pikarsky, Enrrique MERCHANDISE DELIVERER Unavailable Unavailable Pikarsky, Enrrique MERCHANDISE DELIVERER Unavailable Unavailable Pikarsky, Enrrique MERCHANDISE DELIVERER Unavailable Unavailable Pikarsky, Enrrique MERCHANDISE DELIVERER Unavailable Unavailable Pikarsky, Enrrique MERCHANDISE DELIVERER Unavailable Unavailable Pikarsky, Enrrique MERCHANDISE DELIVERER Unavailable Unavailable Pikarsky, Enrrique MERCHANDISE DELIVERER Unavailable Unavailable Pikarsky, Enrrique MERCHANDISE DELIVERER Unavailable Unavailable Pikarsky, Enrrique MERCHANDISE DELIVERER Unavailable Unavailable Pikarsky, Enrrique MERCHANDISE DELIVERER Unavailable Unavailable Pikarsky, Enrrique MERCHANDISE DELIVERER Unavailable Unavailable Pikarsky, Enrrique MERCHANDISE DELIVERER Unavailable Unavailable Pikarsky, Enrrique MERCHANDISE DELIVERER Unavailable Unavailable Pikarsky, Enrrique MERCHANDISE DELIVERER Unavailable Unavailable Pikarsky, Enrrique MERCHANDISE DELIVERER Unavailable Unavailable Pikarsky, Enrrique MERCHANDISE DELIVERER Unavailable Unavailable Pikarsky, Enrrique MERCHANDISE DELIVERER Unavailable Unavailable Pikarsky, Enrrique MERCHANDISE DELIVERER Unavailable Unavailable Pikarsky, Enrrique MERCHANDISE DELIVERER Unavailable Unavailable Pikarsky, Enrrique MERCHANDISE DELIVERER Unavailable Unavailable Pikarsky, Enrrique MERCHANDISE DELIVERER Unavailable Unavailable Pikarsky, Enrrique MERCHANDISE DELIVERER Unavailable Unavailable Pikarsky, Enrrique MERCHANDISE DELIVERER Unavailable Unavailable RODRÍGUEZ (PATRICIA), Josefa STERN MD Unavailable Unavailab my ARREGUIN (PATRICIA), Josefa STERN MD Unavailable Unavailab le RODRÍGUEZ (APTRICIA), Josefa STERN MD Unavailable Unavailab le RODRÍGUEZ [...] (PATRICIA), Josefa STERN MD Unavailable Unavailab le RODÍRGUEZ (PATRICIA), Josefa STERN MD Unavailable Unavailab le [...] (PATRICIA), Josefa STERN MD Unavailable Unavailab le RODRÍGEUZ (PATRICIA), Josefa STERN MD Unavailable Unavailab le [...] STERN MD Unavailable Unavailab le RODRÍGUEZ (PATRICIA), M JARRED MD Unavailable Unavailab le RODRÍGUEZ (PATRICIA), M JARRED MD Unavailable Unavailab le RODRÍGUEZ (PATRICIA), M JARRED MD Unavailable Unavailab le RODRÍGUEZ (PATRICIA), M JARRED MD Unavailable Unavailab le RODRÍGUEZ (PATRICIA), M JARRED MD Unavailable Unavailab le RODRÍGUEZ (PATRICIA), M JARRED MD Unavailable Unavailab le RODRÍGUEZ (PTARICIA), M JARRED MD Unavailable Unavailab le RODRÍGUEZ [...] is protected by Article 27-F of the [facility] Public Health law. If you continue you may have access to information: Regarding HIV / AIDS; Provided by facilities licensed or operated by the [facility] Office of Mental Health; or Provided by the [facility] Office for People With Developmental Disabilities. If such information is present, then the following [facility] mandated warning applies: This information has [...] law may result in a fine or senior living sentence or both. A general authorization for the release of medical or other information is NOT sufficient authorization for further disc losure. Allergies and Adverse Reactions Type Description Substance Reaction Status Data Source(s ) DRUG INGREDI AMOXICILLIN Amoxicillin Rash [facility] Family History Family Member Name Family Member Gender Family Member Status Date o f Status Description Data Source(s) Unknown Female Problem (finding) 10/01/2011 12:00:00 AM EDT [facility] ([facility]) Unknown Male Problem MEDENT ([facility] ) Unknown Unknown Problem MEDENT ([facility]) Unknown Female Problem MEDENT ([facility]) Encounters Encounter Providers Location Date Indications Data Source(s ) Outpatient Attender: GERARDO OGLESBY DO Family [facility] 07/11/2020 03:00:00 PM EST MEDENT ([facility]) Wendi Dolan NP: [id number], [address], [place] [address], Ph. Attender: Wendi Dolan [facility] - [facility] - Main Office 06/21/2020 12:00:00 AM EST SHAYNE MINER ([facility]) Attender: Hyun Angulo [facility] 06/11/2020 01:34:00 PM EST - 06/11/2020 01:34:00 PM EST NextGen ([facility]) PHONE E/M BY PHYS 5-10 MIN Attender: Enrrique [facility] 06/07/2020 01:51:00 PM EST - 06/07/2020 01:51:00 PM ES T Unspecified juvenile rheumatoid arthritis, multiple sitesOther buttermaker helper (current) drug therapy NextGen ([facility]) Unspecified juvenile rheumatoid arthriti s, multiple sites Other buttermaker helper (current) drug therapy Attender: Enrrique Jama NP [facility] 06/05/2020 02:30:00 PM EST - 06/05/2020 02:30:00 PM EST Next[facility] ( [facility]) Attender: Enrrique Jama NP [facility] 05/31/2020 09:44:00 AM EST - 05/31/2020 09:44:00 AM EST Next[facility] ( [facility]) Outpatient Attender: GERARDO OGLESBY [facility] 05/23/2020 02:30:00 PM EST MEDENT ([facility]) Attender: Enrrique Jama NP [facility] 05/22/2020 03:34:00 PM EST - 05/22/2020 03:34:00 PM EST NextGen ( [facility]) Outpatient Attender: GERARDO OGLESBY [facility] 05/21/2020 02:40:00 PM EST MEDENT ([facility]) Attender: Lucho Amador MD [facility] 05/18/2020 09:34:00 AM EST - 05/18/2020 09:34:00 AM EST [facility] ( [facility]) Attender: Enrrique Jama NP [facility] 05/10/2020 09:13:00 AM EST - 05/10/2020 09:13:00 AM EST [facility] ( [facility]) Outpatient Attender: Law Sen MD BF-[facility] 05/07/2020 01:23:2 7 PM EST [facility] Attender: Enrrique Jama NP [facility] 05/03/2020 09:13:00 AM EST - 05/03/2020 09:13:00 AM EST [facility] ( [facility]) Attender: Enrrique Jama NP [facility] 04/25/2020 04:06:00 PM EST - 04/25/2020 04:06:00 PM EST [facility] ( [facility]) Attender: Enrrique Jama NP [facility] 04/23/2020 11:40:00 AM EST - 04/23/2020 11:40:00 AM EST Pain in jointOther intermediate (current) drug therapyUnspecified juvenile rheumatoid arthritis, multiple sites Next[facility] ([facility]) Pain in joint Other intermediate (current) drug therapy Unspecified juvenile rheumatoid arthriti s, multiple sites Attender: JARRED ARREGUIN MD ([facility]) 0 08:20:11 PM EST [facility] Attender: JARRED ARREGUIN MD ([place]) 0 08:20:11 PM EST [facility] Wendi Dolan, MERCHANDISE DELIVERER: [address], [place] [address], Ph. Attender: Wendi Dolan [facility] - [facility] - [facility] 03/30/2020 12:00:00 AM EDT ATHJob MINER ([facility]) Wendi Dolan, MERCHANDISE DELIVERER: [address], [place] [address], Ph. Attender: Wendi Dolan [facility] 03/30/2020 12:00:00 AM EDT SHAYNE MINER ([facility]) Outpatient Attender: GERARDO OGLESBY DO [facility] 03/28/2020 11:20:00 AM EDT MEDENT ([facility]) Attender: JARRED ARREGUIN MD ([place]) 0 08:20:10 PM EDT [facility] Attender: JARRED ARREGUIN MD ([place]) 0 08:20:10 PM EDT [facility] Attender: JARRED ARREGUIN MD ([place]) 0 08:20:10 PM EDT [facility] Attender: Lucho Amador MD [facility] 02/28/2020 11:04:00 AM EDT - 02/28/2020 11:04:00 AM EDT [facility] ( [facility]) Attender: Lucho Amador MD [facility] 02/24/2020 03:55:00 PM EDT - 02/24/2020 03:55:00 PM EDT Next ( [facility]) OutpatientOFFICE/OUTPATIENT VISIT, EST Attender: Enrrique zhao NP [facility] 02/20/2020 11:40:00 AM EDT - 02/20/2020 11:40:00 AM ED T Pain in jointOther intermediate (current) drug therapyUnspecified juvenile rheumatoid arthritis, multiple sites [facility] ([facility]) Pain in joint Other buttermaker helper (current) drug therapy Unspecified juvenile rheumatoid arthriti s, multiple sites Attender: Enrrique Jama NP [facility] 02/08/2020 01:46:00 PM EDT - 02/08/2020 01:46:00 PM EDT [facility] ( [facility]) Outpatient Attender: Law Sen MD BF-BF 01/30/2020 12:00:0 0 AM EDT [facility] Outpatient Attender: GERARDO OGLESBY DO Family [facility] 01/26/2020 02:30:00 PM EDT MEDENT ([facility]) OutpatientOFFICE/OUTPATIENT VISIT, EST Attender: Enrrique zhao NP [facility] 01/26/2020 11:00:00 AM EDT - 01/26/2020 11:00:00 AM ED T Sicca syndrome, unspecifiedOther buttermaker helper (current) drug therapyUnspecified juvenile rheumatoid arthritis, multiple sites [facility] ([facility]) Sicca syndrome, unspecified Other intermediate (current) drug therapy Unspecified juvenile rheumatoid arthriti s, multiple sites Wendi Dolan MERCHANDISE DELIVERER: [address], [place] [address], Ph. Attender: Wendi Dolan [facility] - [facility] - Main Office 01/23/2020 12:00:00 AM EDT ATHE NA ([facility]) Wendi Dolan MERCHANDISE DELIVERER: [address], [place] [address], Ph. Attender: Wendi Dolan [facility] 01/23/2020 12:00:00 AM EDT ATHE NA ([facility]) Wendi Dolan, MERCHANDISE DELIVERER: [address], [place] [address], Ph. Attender: Wendi Dolan [facility] 01/23/2020 12:00:00 AM EDT ATHE NA ([facility]) Outpatient Attender: HYUN NEWELL MD [id number] 01/05/2020 12:00:00 AM EDT [facility] Outpatient Referrer: HYUN NEWELL MD 01/05/2020 12:0 0:00 AM EDT Presence of right artificial shoulder joint [facility] Presence of right artificial shoulder venessa int Wendi Dolan, MERCHANDISE DELIVERER: [address], [place] [address], Ph. Attender: Wendi Dolan [facility] 12/28/2019 12:00:00 AM EDT ATHE NA ([facility]) Wendi Dolan, MERCHANDISE DELIVERER: [address], [place] [address], Ph. Attender: Wendi Dolan [facility] 12/28/2019 12:00:00 AM EDT ATHE NA ([facility]) Wendi Dolan, MERCHANDISE DELIVERER: [address], [place] [address], Ph. Attender: Wendi Dolan [facility] 12/28/2019 12:00:00 AM EDT ATHE NA ([facility]) Wendi Jimenez Magdaleno, MERCHANDISE DELIVERER: [address], [place] [address], Ph. Attender: Wendi Dolan [facility] - [facility] - [facility] Office 12/28/2019 12:00:00 AM EDT ATHE NA ([facility]) Outpatient Attender: Norma Ceballos RPA 12/21/2019 12:00:00 AM EDT [facility] Attender: JARRED ARREGUIN MD ([place]) 0 08:20:07 PM EDT [facility] Attender: JARRED ARREGUIN MD ([place]) 0 08:20:07 PM EDT [facility] Outpatient Attender: Lexa VELÁSQUEZ [facility] 12/19/2019 10:40:00 AM EDT MEDMIRELA ([facility]) Attender: JARRED ARREGUIN MD ([place]) 0 08:20:07 PM EDT [facility] Attender: Lucho [facility]ador [facility] 12/01/2019 08:51:00 AM EDT - 12/01/2019 08:51:00 AM EDT [facility] ( [facility]) Attender: Lucho Amador MD [facility] 11/29/2019 04:42:00 PM EDT - 11/29/2019 04:42:00 PM EDT [facility] ( [facility]) Wendi Dolan, MERCHANDISE DELIVERER: [address], [place] [address], Ph. Attender: Wendi Dolan [facility] - [facility] - [facility] 11/29/2019 12:00:00 AM EDT ATHE NA ([facility]) Wendi Dolan, MERCHANDISE DELIVERER: [address], [place] [address], Ph. Attender: Wendi Dolan [facility] - [facility] - [facility] Office 11/29/2019 12:00:00 AM EDT ATHE NA ([facility]) Wendi Dolan, MERCHANDISE DELIVERER: [address], [place] [address], Ph. Attender: Wendi Dolan [facility] - [facility] Office 11/29/2019 12:00:00 AM EDT ATHE NA ([facility]) Wendi Dolan, MERCHANDISE DELIVERER: [address], [address], [place] [address], Ph. Attender: Wendi Dolan [facility] - [facility] - [facility] Office 11/29/2019 12:00:00 AM EDT ATHE NA ([facility]) Wendi Dolan, MERCHANDISE DELIVERER: [address], [place] [address], Ph. Attender: Wendi Dolan [facility] - [facility] - [facility] Office 11/29/2019 12:00:00 AM EDT ATHE NA ([facility]) Attender: [facility]ador [facility] 11/22/2019 01:28:00 PM EDT - 11/22/2019 01:28:00 PM [facility]T [facility] Outpatient Referrer: Wendi Darnellon [employer] RETAILER SALES CONSULTANT 11/15/2019 08:39:0 0 AM EDT [facility] Outpatient Referrer: Wendi Darnellon [employer] RETAILER SALES CONSULTANT 11/15/2019 08:39:0 0 AM EDT [facility] Outpatient Referrer: Wendi Darnellon [employer] RETAILER SALES CONSULTANT 11/14/2019 03:18:0 0 PM EDT [facility] Outpatient Referrer: Wendi Darnellon [employer] RETAILER SALES CONSULTANT 11/14/2019 01:31:0 0 PM EDT [facility] Outpatient Referrer: Wendi Darnellon [employer] RETAILER SALES CONSULTANT 11/10/2019 09:22:0 0 AM EDT [facility] Outpatient Referrer: GERARDO OGLESBY DO 11/10/2019 09 :20:00 AM EDT [facility] OutpatientOFFICE/OUTPATIENT VISIT, EST Attender: Lucho espino MD [facility] 10/26/2019 02:40:00 PM EDT - 10/26/2019 02:40:00 PM ED T Diarrhea, unspecifiedOther buttermaker helper (current) drug therapySicca syndrome, unspecifiedUnspecified juvenile rheumatoid arthritis, multiple sites [facility] ([facility]) Diarrhea, unspecified Other buttermaker helper (current) drug therapy Sicca syndrome, unspecified Unspecified juvenile rheumatoid arthriti s, multiple sites Wendi Francolauri Dolan, MERCHANDISE DELIVERER: [address], [place] [address], Ph. Attender: Wendi Dolan [facility] Main Office 10/25/2019 12:00:00 AM EDT JAIRO ([facility]) Wendi Francoaddisonbobby Magdaleno, MERCHANDISE DELIVERER: [address], [place] [address], Ph. Attender: Wendi Dolan [facility] Main Office 10/25/2019 12:00:00 AM EDT JAIRO ([facility]) Wendi Dolan, MERCHANDISE DELIVERER: [address], [place] [address], Ph. Attender: Wendi Dolan [facility] Main Office 10/25/2019 12:00:00 AM EDT JAIRO ([facility]) Wendi Jimenez Kanikajonathan, MERCHANDISE DELIVERER: [address], [place] [address], Ph. Attender: Wendi Mannmonty [employer] RETAILER SALES CONSULTANT [place] - [facility] Main Office 10/25/2019 12:00:00 AM EDT JAIRO ([facility]) Wendi Sammyjaspreetlauri Dolan, MERCHANDISE DELIVERER: [address], [place], [place] [address], Ph. Attender: Wendi Dolan [facility] - [facility] Office 10/25/2019 12:00:00 AM EDT JAIRO ([facility]) Wendi Dolan, MERCHANDISE DELIVERER: [address], [place] [address], Ph. Attender: Wendi Dolan [facility] - [facility] Office 10/25/2019 12:00:00 AM EDT JAIRO ([facility]) Outpatient Attender: Law Sen MD BF-BF 10/17/2019 12:00:0 0 AM EDT [facility] Wendi Dolan, MERCHANDISE DELIVERER: [address], [place] [address], Ph. Attender: Wendi Dolan [facility] - [facility] Office 09/26/2019 12:00:00 AM EDT JAIRO ([facility]) Wendi Dolan, MERCHANDISE DELIVERER: [address], [place] [address], Ph. Attender: Wendi Dolan [facility] - [facility] 09/26/2019 12:00:00 AM EDT JAIRO ([facility]) Wendi Dolan, MERCHANDISE DELIVERER: [address], [place] [address], Ph. Attender: Wendi Dolan [facility] - [facility] Office 09/26/2019 12:00:00 AM EDT JAIRO ([facility]) Wendi Dolan, MERCHANDISE DELIVERER: [address], [place] [address], Ph. Attender: Wendi Dolan [facility] - [facility] Main Office 09/26/2019 12:00:00 AM EDT JAIRO ([facility]) Wendi Dolan, MERCHANDISE DELIVERER: [address], [place] [address], Ph. Attender: Wendi Dolan [facility] - [facility] [place] - Main Office 09/26/2019 12:00:00 AM EDT JAIRO ([facility]) Wendi Dolan, MERCHANDISE DELIVERER: [address], [place] [address], Ph. Attender: Wendi Dolan [facility] - [facility] Main Office 09/26/2019 12:00:00 AM EDT JAIRO ([facility]) Wendi Dolan, MERCHANDISE DELIVERER: [address], [place] [address], Ph. Attender: Wendi Dolan [facility] - [facility] Office 09/26/2019 12:00:00 AM EDT JAIRO ([facility]) Attender: Enrrique Jama NP [facility] 09/20/2019 11:14:00 AM EDT - 09/20/2019 11:14:00 AM EDT [facility] ( [facility]) Outpatient Attender: GERARDO OGLESBY DO [facility] 09/19/2019 11:00:00 AM EDT MEDMIRELA ([facility]) Attender: Enrrique Jama NP [facility] 09/02/2019 02:13:00 PM EDT - 09/02/2019 02:13:00 PM EDT [facility] ( [facility]) Outpatient Attender: KRISTOFER FLEMING_806 [facility] 08/19/2019 01:00:00 PM EDT MEDMIRELA ([facility]) Attender: Enrrique Pikarsky MERCHANDISE DELIVERER [facility] 08/08/2019 11:16:00 AM EDT - 08/08/2019 11:16:00 AM EDT Marvin ( [facility]) Outpatient Referrer: GERARDO OGLESBY DO 07/26/2019 10 :44:00 AM EST [facility] Wendi Dolan, MERCHANDISE DELIVERER: [address], [place] [address], Ph. Attender: Wendi [facility] 07/26/2019 12:00:00 AM EST ATHE NA ([facility]) Wendi Dolan, MERCHANDISE DELIVERER: [address], [place] [address], Ph. Attender: Wendi [facility]olan [facility] 07/26/2019 12:00:00 AM EST ATHE NA ([facility]) Wendi Dolan, MERCHANDISE DELIVERER: [address], [place] [address], Ph. Attender: Wendi [facility]olan [facility] 07/26/2019 12:00:00 AM EST ATHE NA ([facility]) Wendi Dolan, MERCHANDISE DELIVERER: [address], [place] [address], Ph. Attender: Wendi [facility]olan [facility] 07/26/2019 12:00:00 AM EST ATHE NA ([facility]) Wendi Dolan, MERCHANDISE DELIVERER: [address], [place] [address], Ph. Attender: Wendi Dolan [facility] 07/26/2019 12:00:00 AM EST ATHE NA ([facility]) Wendi Dolan, MERCHANDISE DELIVERER: [address], [place] [address], Ph. Attender: Wendi Dolan [facility] 07/26/2019 12:00:00 AM EST ATHE NA ([facility]) Wendi Dolan, MERCHANDISE DELIVERER: [address], [place] [address], Ph. Attender: Wendi Dolan [facility] 07/26/2019 12:00:00 AM EST ATHE NA ([facility]) Wendi Dolan, MERCHANDISE DELIVERER: [address], [place] [address], Ph. Attender: Wendi Dolan [facility] 07/26/2019 12:00:00 AM EST ATHE NA ([facility]) OutpatientOFFICE/OUTPATIENT VISIT, EST Attender: Enrrique zhao NP [facility] 07/12/2019 04:00:00 PM EST - 07/12/2019 04:00:00 PM ES T Other buttermaker helper (current) drug therapyOsteoarthritisFibromyalgiaSicca syndrome, unspecifiedUnspecified juvenile rheumatoid arthritis, multiple sites [facility] ([facility]) Other intermediate (current) drug therapy Osteoarthritis Fibromyalgia Sicca syndrome, unspecified Unspecified juvenile rheumatoid arthriti s, multiple sites Outpatient Attender: Law Sen MD BF-BF 07/11/2019 12:00:0 0 AM EST [facility] Attender: JARRED ARREGUIN MD ([place]) 0 08:20:01 PM EST Gastroenterology and Hepatology [facility] Outpatient Attender: Lexa VELÁSQUEZ [facility] 06/20/2019 09:20:00 AM EST MEDENT ([facility]) Outpatient Attender: Law Sen MD BF-BF 06/16/2019 12:00:0 0 AM EST [facility] Attender: Lucho Amador MD [facility] 06/14/2019 11:30:00 AM EST - 06/14/2019 11:30:00 AM EST Marvin ( [facility]) Wendi Dolan, MERCHANDISE DELIVERER: [address], [place] [address], Ph. Attender: Wendi Dolan [facility] - [facility]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 Buckner U/W Commercial Self UNITED HEALTHCARE O [id number] S [id number] [employer] [place] Commercial Family Depende nt EXCELL BCBS B [id number] S V BLUE CROSS O [id number] S [id number] BLUE CROSS O [id number] S [id number] DIDI C [id number] Self [id number] Problems, Conditions, and Diagnoses Code Display Name Description Problem Type Effective Dates Data Source(s) I42.9 Cardiomyopathy, unspecified Cardiomyopathy, unspecifie d Diagnosis 05/07/2020 01:23:27 PM EST [facility] Z96.611 Presence of right artificial shoulder venessa int Presence of right artificial shoulder joint Diagnosis 01/05/2020 10:42:31 AM EDT [facility] I47.2 Ventricular tachycardia Ventricular tachycardia Diagno sis 10/19/2019 09:21:52 AM EDT [facility] Surgeries/Procedures Procedure Description Date Indications Data Source(s) Electrocardiogram Complete 07/11/2020 12:00:00 AM EST BERNADETTE ([facility]) PHONE E/M BY PHYS 5-10 MIN 06/07/2020 [...] 12:00:00 AM EDT JAIRO ([facility]) OFFICE/OUTPATIENT VISIT, EST 07/12/2019 12:00:00 [...] Source [id number] 07/11/2020 05:03:00 PM EST [facility] ([facility]) Name Value Range Interpretation Code Description Data Moni rce(s) Supporting Document(s) EKG Laboratory test result [facility] ([facility]) ID Date Data Source [id number] 05/23/2020 03:40:00 PM EST [facility] ([facility]) Name Value Range Interpretation Code Description Data Moni rce(s) Supporting Document(s) Respiratory Panel Laboratory test result [facility] ([facility]) This respiratory PCR panel detects Influ nalini [...] - SARS-CoV-2 (COVID19) ID Date Data Source [id number] 05/23/2020 03:40:00 PM EST [facility] Name Value Range Interpretation Code Description Data Moni rce(s) Supporting Document(s) SARS-CoV-2 (COVID 19) [facility] This lab was ordered by [facility] a nd reported by [facility]. ID Date Data Source [id number] 05/21/2020 04:48:00 PM EST [facility] ([facility]) Name Value Range Interpretation Code Description Data Moni rce(s) Supporting Document(s) Inhouse Leukocytes Laboratory test result [facility] ([facility]) Inhouse Nitrite Laboratory test result [facility] ([facility]) Inhouse Protein Laboratory test result [facility] ([facility]) Inhouse Urobilinogen Laboratory test result [facility] ([facility]) Inhouse Specific [place] 1.007 [facility] ([facility]) Inhouse PH 7.0 [facility] ([facility]) Inhouse Hemoglobin Laboratory test result [facility] ([facility]) Inhouse Ketones Laboratory test result [facility] ([facility]) Inhouse Glucose Laboratory test result [facility] ([facility]) Inhouse Bilirubin Laboratory test result [facility] ([facility]) ID Date Data Source [id number] 05/21/2020 04:43:00 PM EST [facility] ([facility]) Name Value Range Interpretation Code Description Data Moni rce(s) Supporting Document(s) Bacteria identified in Urine by Culture Laboratory test result Normal (applies to non-numeric results) [facility] ([facility]) <content>FULL REPORT IN LAB NOTES (eCW a [...] FOR ESBL</content>
<content></content> ID Date Data Source [id number] 05/13/2020 08:34:40 AM EST [facility] NT INFORMATIONPatient MRN Name Date of Age Gend*PT [id number] Elena Marroquin 1965 55 years F ---PT Location Admission Date/Time Visit ID Attending Provider --- --- --- --- EPI ID CSN Admitting Provider [id number] ---Name: Elena MarroquinDOB: 1965Date: 05/13/20CIED Remote CheckImplanted Device 07/11/2019Device Housekeeper Manager MedtronicDevice type Single Chamber ICDMRI Conditional Device -Device was remotely interrogated and the following were evaluated:Battery statusSummary arrhythmia logsNew observationsFidelity of the EGM signalIntegrity of leads and lead impendence were reevaluatedConclusion:Normal ICD function.No significant changes continue to monitor.Signature: Law Vasquez MD, FAC, RSCardiac Electrophysiology and Arrhythmia ServiceDate: May 13, 2020Time: 8:34 AMThis document or parts of this document, were dictated using [employer]. A reasonable attempt at proofreading has been made to minimize errors.Please call with any questions or corrections. Name Value Range Interpretation Code Description Data Moni rce(s) Supporting Document(s) ID Date Data Source [id number] 04/25/2020 08:34:00 PM EST [facility] FASTING: UNKNOWNReceived: 04/24/2020 at 08:42:00 V6O: [facility] , [address] [place] [address], [id number], Mannie Castellon MD,PhD Name Value Range Interpretation [...] Passed [facility] ID Date Data Source [id number] 04/11/2020 12:30:00 PM EST [facility] Name Value Range Interpretation Code Description Data Moni rce(s) Supporting Document(s) Follow Up [facility] LTSIJb7gNuHLLqDsQOBsVbvDVDhrFXaoQPLlY9V8JFbkDr5JDZvlfcMvOYXhDj8+JMHjOC3cyz0jNDYn gMy 9yKIXuXkogL0HbAWFom33DRDQeADuEBvXkLtNoUGEtALJ4YBT0PBA7CiXoYujgNE5rORL7VZFjWArtPU DwPNBuSWVzIOheYI7wVYncWUpmWq0JGQ9es1XlKONbHPZbZlaZTHlgHVgmZQRmZHDmIUPfZ840dhTjXo 7HqGTgSAw5FRTdTeO4FDKxVqF0ZWAcEaNeVyPgOWFy VINqLXCCSII3XZEdFm4sTgXgr5ApY4UgDVv7C9zQEbqlK5XvBGuzVP4rBXO8MEPcNl4AxPgnOFqyXYUL C5naTcHeWFOoUKZNX4gzNjBdFCJgEZALR6dtJnGnEDckLQROW1phJiRhIjCuVAAOJo9+Pj4+YSIvAY4a qz76GDPqy0ZnYLh9G0S3eJVkP5YaB3WnXKUdfPUQm9 hyKdEeQZD3SXQcRkkbMI9YCQVwjYWzXEJmNAltLQ0ftpEcqZG2AE4FgUmkTWFfLRWENr0+Fy6RMPZmze YpVbPtWRUnC73bmSQplLRfIbxsGAJMVL0+AGGkXO6fgo62PCNzq6KiXKg7N6izums6wWCfJdEkZZFnPe OqSUIzMU4dCD4SjQM4wOHrKX0IrNExAW5CoWMuPO4J X2MzCGM8B1OqfQGkakPfJ6RyESZzZJMad0HoTI4KK6WJOGHqBGWlP6SufP4nQ7WlZ3EpR8JojissUEWW Fl3PiIV6wWAjISZgL3rmvMvkkETuCUigC1QxoBDLQUPPd05yu84tsqWyXR9+y4YvWXCcZDk16ou3AUJr AcbkLcyCMYHWqPZIQLtPRjehhm0pIiXfHaK0RneJ4v 4lJUP3Tc6Z8UH03xe8I4ROw5uvq1s/2/lE7PrkKzdnZm/VvgVZ7dday8/XABIAVGRkFGQkVBQUlDdvUN Ts1LJj7NQogY++d2GrE5YbOJtwS1HgIcCk+cQLEJMGp9HMrToJj0XNwu8PkNblvYKIu/8bokZ7glKMYi 5UDIDIhJ957Hl8/9/82t8TZQQoA6pXvIcMcGpNY3HS [file] José Miguel+s4e5ZTFHGUX1v7R48ArsBbUb0Q9FUAq7pi9Tz [file] CN3uW02YSWYHZgHmaDAVKaOSCSOLNnCHnmrGaXMMt7 qhb4fYoe6V5HZas8BxActWzFBz1O3b0wzmVg98p1v2FwjV1+WYHMHQNrL6rksc68+UOzmT3Gh8hmpgyJ sJsCwWTkUAL8w1u5Ct5Te9tMG75YvjOJ1dckH+Gfi/OvfVo0IBRN8arpepUXqATSsc/keKJ2l6kripxq VVgtMrQzRz8l1BaiN0kghv+l5fFSOIstEwH2SH51zI zEbDX2hOnsT/YncWjIToHQV0Ic50c9ES8cPWO6irhLJJxuYLxwr/sMWkRasjxbPOrbL+E8VJh0ez/8Fi VZkIlR1/TEyJuquakF8lamAwdhL/GcNhb2JmC9N0+JDGYy2PIhuzff4nyDfDRs363KCqcSHNozA1ITLV K1WCUeJ0G60Swwux5MhfOU2ATb+W1scB9lPUiHIT0f 6U488R1xjyne04c3RPveQDMxlUH8sA/Cq3GJmZb5HtzL1C6ZDF+dYB2mo9kM/7t+7CNeIfKepFYcO75d GbpBf6YkhQCWDMYOvDEMYabmWJ3jJF+3JZ60gtMRho+oXxJB93y6ZOZsAB9HXK9tjcNWzWN93utENb/r MERCHANDISE DELIVERER/Yij98Te50gxHXcb6bi5eDkgdFqK616l+mHg7JC1 lT5+MdT4w2SlKYwBFZli7CtwnbcnxWIzkruj+cNRnMYqLDAYRP1HhE6HF2bckWVWFWEyNZqQDb/SOFV9 xjosrjhX1KqSP8nZ3uxARZMHA9K24JyGydddyyC5ZU+zRnXObGtolpR0dIdllUC92DpocBaPZI9qnnKD B4t6oczvAYDOOHyRVpdQCm17LtOxiHZBSNzTNLEAFr [file] purchaser 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/f9ZGLI3Q1zR6rL9kSF492IeFx4KImiBhoKQhcj315r0J06usJ1lRsSgLin6CnQv2uW0Zq+iNmrKH nr1Pbt9OF3TjbKz98/5XPIzzAc/AQyZ6EgmH+SGmcw XEbOZ6tHKVEC1xAAm6Usbm+8XE5z1nBVQNA+8LwSpzgnsNOKaF1MG78eksH/Bia7WsxoaGn+vYWIkzvQ GzAjdc1T+INkaoNq6iFRbWq99yVoJSnnFwNWi/XEasS9n20tCSONEEa3FOkQZtFgAkBqCkx35iVDGOL0 8Hwm+hLJat/w49a4Sjkh5LP5SjLkcAF0xeB+2C6YOY N6/CfbAfgcYAGp4jz9qyQ3r+4cLL+7m9I6I6q9deHJ979HyKdP8eLkhdEvb4T26Vj3KgUbub2cJt1dGE sh75OtxCcj3zGDXTGfrDkuLt1//To72yrK6FWpPt3tl1Wd2AAkMt1Qlsp45iSA37XdVRsTS6thEaGXdh FADd4C8KketCMDXOS52PEWMnIbg2mGZu1bGYGJVZMl [file] v/MJHQ3SG+organic gardening teacher/E5WRQYpgXwyZA7HQAO5D2hIogu32 [file] UMKxREK6ZdZVaEj8DDgr7ZdNOe/uprJTP6Yfcvmbnrb7KAy3jV/Hosted Services Analyst+TQ5B95dYTl7hi3hHVm7NHUWRec [file] long-term+V9UobzBOwotZiAP6vo2mOHnj95fdj8EEWzaS8s [file] middleware architect/cikC1B0fyWTZReVAARgml0GmyGffgFKDMb6oux [file] CAR PUSHER/zWFkqeaCGgvO6ZAEA7qGGjOX5aoYNnW1bISf/JA [file] nRWFrkFjFn1CCN6pq7qOJhH5EkJav2ATtsRy86yFFQFiuYUugyvaxN7QXisoKMOjtN9Nb9vfDIGg7+machine repairer maintenance [file] L835Wgn4zrVXe8Os/ShalPj7IN7M9Bq/62vS+7wdyF4xL8CRNGsAIMmo3xrcMCiA+9KMYqNz+tTic/MOLD CAR PUSHER [file] X8safGkQtZ3NFNNW3ZW0hhXwqhCC5/8vZ7ebDyU8ixaiMsp2CjcuC2wGP1xejQPsHTPJSn/vp human resources+neK5nP [file] Q03f4h1X04Fxz1fEU26HjGeb0Uq2+vp human resources+fRsuiSYRWT [file] 3272DAwRsD9hPSqYe+6yrjADoaAu85LF68fyJo+ [file] OlTh4egE+movement assembler/rk3VfeNWoeFIH5aok4PJMtpV+lT6T7PI/PMcCfBHtf2GFeTafUP3SOxtWQYM6Eb1HZC [file] Hosted Services Analyst/eoYol84t4zutFUCrmAADYo4yGaUVYLfljmsEd+kBmItZReHbtIW8iAvDVJTS25lEcl6sYOK/1fX70 [file] LS9eo9r1LDKeXApNPiKXT01NSr4XkB5rq4p5JBznjpnQrFeZrMVMa1n6/Ig7eL+/kaiako kohanga reo+10YqdkU5fHizV P5jdhvE4Cic6JRZRbrnNi5EtKfYlHQrZoGw/H0pJSe EpQmEkPoFYu4U709wD/TQnImy1s+lmdR0BkfINKLOxVz4qOWcVdVgEIML/CImdtZC+UnQwcpLIpsEUEd ac3rjawRCJ1rKDkf4gdoVxLGDKup5nDlwzgi/IDoXL7SdWjOvdRPbws8hsLCZNIQWJGZzhX+n/cJYRWK /MyqAXL840pZ0TxLkqeo1tr8+IMw12h91pOxzhpmg3 lpogoecgxSaz7KgyQVcxwgCoG7F7UER/aQW/brent/WuGRGR+V2DtBW1NV5CHsDFavS4/rlLD47tNDvusZ [file] Ping Pong Table Assembler+k3sc6UOCCBJuylBCR3ZRM1IN8QdDH84gvpYXhF7Qx8f2IXuqm/Ys3eouAhHcOz3O7nq/A9nGx7qes [file] mLlKhMC3E+wuM0xfLxfZPs6IfhQeAO/UjYODcpgPvySsTJErfLJAS1nusH1sVr/nxBxRWLss+Lori+Ayp GJOn3aamwH9D3j6GH+X7VO9IYsygojqfULI8iQqJ0fUBg5yiogkJgeSTWdswrYwsREHppd0/rJAQHLnq 3QU1hkACaDqCowGlMQVg7B1ID16dWJlaqxgObzjsI5 L26TOasORL/zE5IRnG4jYGdJFqTh19XcreQIToJjhAOH6d/Y05mOlO8Kl1dJUYXn44TprzHawhGpc/repairer finished metal [file] SvLpcZy4gUq45xtgFKOMMddymq74/6XpoqMMNZ5fw5SBAslUEJEojky9LqoZeC2e3GYH90NBuk+c/Dilcia tj9FgvB6vw9Jls0fbjWtGtnr7Vpav1i1GeTMwny8ERJ0IgJ2TGfKnTqQal6D4oSYLdZyZag9ob9cVOzA +FjqqEDjQORAP7ng12wHECKTX+xy5za//0LCsrd [file] pLJVeu1RInsMUFiVwc9QcVTrM+kaiako kohanga reo/5LmatuZurme/fVKQ0c6wF4xg1vuYjzaAdrPJSQh9crvk+FMvKfl tuGC4WN1hy0uJARnFD9w4U+CX1jqbyNI7pnQGsZWJk0eNCpj2WPId5OU5FqNbPIlwjZETqmL8YCxzB/P RQmGHXI0oBvOfQ1uem1piu8QGUUe1wRnu0cCvD4w4L Ever+AzAdTmww0F6TC+NxLRefda6+S81u7UkRhPjjcZP81cz8XmbY/UkBinBoE9LaI+PqizfwptmhV1Q7 [file] +CU7KQZFPWO25iEiXv2g2Nh9GmOJLYcyARJT+Uuf868wHR/f6kpiutHI4uh823u2z+Fátima/o6KHqPG6qZ [file] [facility]+39wMDKycx7cYS5HTKAFtFySNtuokFaFM4R6UILv4rt+Oy2OR/ZJAiuivH+ITe5jZIgqRhjV4 [file] PMj/park maintenance technician/ef9RoVgxugCNhkGN+3exV+dfU/HBdwOVK1MsyXVqGwGh17A6NM/amWPHpaRxgj2Z+OdNwa6U [file] VyTmwgVoJwswOMajrfGZYaJJGj7zNMmH7J0bzL4LYTkUkx+Ping Pong Table Assembler/EMxlSxNChg7zL/8w5Jj9udQUtHoOfT [file] fQToDmRGqBDQNCMOPvPY0FFWM9o2wrP5wWq/Eta4oCjiFimR0GaRCHuoUN0/iawdtB3yQLrYNEbQF/MOLD CAR PUSHER [file] BGYRZKPqIwNVqhtoCshCEwWQ7XSqEpOO0ikn3LQzO0LGD6iOImRm7FMfY3ZCR6Nl5MNABBM6D= ID Date Data Source [id number] 03/23/2020 11:00:00 AM EDT [facility] Name Value Range Interpretation Code Description Data Moni rce(s) Supporting Document(s) Hydrogen Breath Test [facility] NIRHXz2lCnTJFxRmFUBdJjrCXKxsIJpaWOPaJ8Q9CGpbZk9QYOzajjLmPLWaXc0+FXAqBW1qec3dLUTa gMy [file] 833+URDU+nN4ULFKC7ClYTydH52wqjpjeWlBJ095sLLgcgKhGWLZTa+SWz8oqb1zdZJ3887nC1jG1NlnH6 5WF8pgS7KWHB7F3PfTi0sk8uaCQef8Qtf8glAone0h t6WYKNxUdtoLK+vXgZAO4pUZMEVcz6QUJdMpoGF90igkd1Ge/7tdt1wa5hHarHb+bT6juIF3OaxbX3Dc 6sYTZlRiDhXUywZBTA+C5qG8QBlGXqJfp8Gp5ZTYq2iWmtMyDYIeGVbQdHnHsd15fA6r3xAsKR9HEhJE TXKWaTHShPFV1u+qGTx4EAiAfsz4+hayUL3H3qhFIX ICC7WuL3i1lzA/UgHuADbykWD74jBQmxg7yGDuKflR4GyzgfdKS7WJF6CbnA2BawE4QZvCfSAsqbSkpi H3rXyPeWUsV+c2vkPn2d5JYNs10zvXpUvgTcQgDfP9mlDXfvKv5Vs348xfTgipqVQWzQzHHe1De5DbUt Zjl/9J7Wd1IgjOLsAJCy4/PnOPgtTvSqQ4Y2tqjrw9 TP0JdSGmASkzKwBO5jP7ndCTNBhxmh9RVsEOux+kk6tCqJphErOr3YpQ6deeo0TPChtWMJQMW6QGX0b9 kUdrtPD0q1uROaGrONBOnFqpFKIZd3J8IK2aF5bAJLIItR3FFkyY1e6IAxRebKBhMnpINQB8+YT1+00X 3y3g8zECw4icRi7j7f8+Nn8poIp4aQC5+ZKIKeZfZI qIagK/yE4o+QuDtg4qxmv6P4iwE90e7KTkBgb4mSxvvI6Nay99Avai+14z9Lp4+TueufyTqA7F7XxJGk opfmKtyV2Bv0dV5htm9JWBQdUERNdRlb4BtTmNAmuSMDLdCsSt90jVJTU8UeP/HAJk64AgkYDTG1Y2Ib 7jTmO9vW38u0aJyPQDhTn9ySH1es1/yboHbULsRpiJ 43ewT+Micya3ASr+N49mqmC/imUaCaGj1jl20aEo01VM1tAmaEbPCXVgkvJnSzVT1v4VHo8Xg9HMdmKX kY2Duli/B/hneyVSMTSIL9ZF5VcwuZJRSiQT0m7vA+kaiako kohanga reo+GtXuuT/mRzAKQTIC5JrZV/Kr2AzFQ13lBIV [file] Urys4iUzfDCRf3OTlc8+Tkoia7n168pOuGgYyJHYsTdrwAtyAcyZaB8QO1Gfsw+FsUUm4tfqZozP+EXECUTIVE HOUSEKEEPER [file] /ZU+MERCHANDISE DELIVERER/qY+kfF9kEs23TGho64J52hgJDMgeuAHqaH7 [file] machine repairer maintenance/sn9ilrPRambn3lki5hqTybFhCAllQSZiThcp4fO [file] EMsLahrvskmLG0a/Moisés/wmNvhUQMmJzVusAwgkg120tZjRbs4+Qy5E0iRVhvYClZhVfoDW/2T//n8rr/ [file] 33isR1xmoXQucxm2uAm+pW+xdFXy+María/kvRyvI9useeBG2Kplmw/1xPdypVBEkKb8EBF0yiBXaL5kt4 [file] 1wC0sNoNbsoVHCkIpNqW67/WiCV3/2xyTjgvoxQ9DASzBMYJ9eqH9/+NbkiS+OJpz/Hosted Services Analyst/OKFiNCehlLq [file] AY44JVQZt6FLMjQaGKq8Kvkkik7E7UIZIyTisA/cadd instructor [file] uf1ELhB0RYH7mGRiFm3ABjUyUlSwRBtoKGWJSu== ID Date Data Source [id number] 02/20/2020 11:32:00 AM EDT [facility] ([facility]) Name Value Range Interpretation Code Description Data Moni rce(s) Supporting Document(s) <0.2 0.0-0.5 CRP [facility]) ID Date Data Source [id number] 02/20/2020 11:32:00 AM EDT [facility] ([facility]) Name Value Range Interpretation Code Description Data Moni rce(s) Supporting Document(s) >60 eGFR [facility] ([facility]) 0.9 mg/dL 0.6-1.2 CREATININE [facility] ([facility]) ID Date Data Source [id number] 02/20/2020 11:32:00 AM EDT [facility] ([facility]) Name Value Range Interpretation Code Description Data Moni rce(s) Supporting Document(s) 27 U/L 15-37 AST [facility]) ID Date Data Source [id number] 02/20/2020 11:32:00 AM EDT [facility] ([facility]) Name Value Range Interpretation Code Description Data Moni rce(s) Supporting Document(s) 43 U/L 30-65 ALT [facility]) ID Date Data Source [id number] 02/20/2020 11:32:00 AM EDT [facility] ([facility]) Name Value Range Interpretation Code Description Data Moni rce(s) Supporting Document(s) 4.0 g/dL 3.4-4.4 ALB [facility]) ID Date Data Source [id number] 02/20/2020 11:32:00 AM EDT [facility] ([facility]) Name Value Range Interpretation Code Description Data Moni rce(s) Supporting Document(s) <2 0-20 ESR [facility]) ID Date Data Source [id number] 02/20/2020 11:32:00 AM EDT [facility] ID Date Data Source [id number] 02/08/2020 03:13:00 PM EDT [facility] ([facility]) Name Value Range Interpretation Code Description Data Moni rce(s) Supporting Document(s) White Blood Count 9.6 10 4.0-10.0 Normal (applies to non-numeri c results) [facility] Red Blood Count 4.11 10 4.00-5.40 Normal (applies to non-numeric results) [facility] Mean Corpuscular Volume 96.4 fl 80.0-96.0 Above high normal [facility] ([facility]) Hemoglobin 13.4 g/dL 12.0-15.5 Normal (applies to non-numeric resul ts) [facility]) Hematocrit 39.6 % 36.0-47.0 Normal (applies to non-numeric resul ts) [facility]) Mean Corpuscular Hemoglobin 32.6 pg 27.0-33.0 Norm al (applies to non-numeric results) [facility] ([facility]) Mean Corpuscular HGB Conc 33.8 g/dL 32.0-36.5 Normal (applies to non-numeric results) [facility] ([facility]) Neutrophils % 54.6 % 36.0-66.0 Normal (applies to non-numeric re sults) [facility] ([facility]) Red Cell Distribution Width 13.0 % 11.5-14.5 Norm al (applies to non-numeric results) [facility] ([facility]) Platelet Count, Automated 216 10 150-450 Normal (applies to non-numeric results) [facility] ([facility]) Eos % 1.8 % 0.0-3.0 Normal (applies to non-numeric resul ts) [facility] ([facility]) [place] % 7.0 % 0.0-5.0 Above high normal [facility] ([facility]) Lymph % 34.8 % 24.0-44.0 Normal (applies to non-numeric resul ts) [facility] ([facility]) Baso % 1.0 % 0.0-1.0 Normal (applies to non-numeric resul ts) [facility] ([facility]) Nucleated Red Blood Cell % 0.0 % 0-0 Normal (applies to n on-numeric results) [facility] ([facility]) Immature Granulocyte % 0.8 % 0-3.0 Normal (applies to non-n umeric results) [facility] ([facility]) Lymph # 3.3 10 1.5-5.0 Normal (applies to non-numeric resul ts) [facility] ([facility]) Neutrophils # 5.2 10 1.5-8.5 Normal (applies to non-numeric re sults) [facility] ([facility]) Baso # 0.1 10 0.0-0.2 Normal (applies to non-numeric resul ts) [facility] ([facility]) Eos # 0.2 10 0.0-0.5 Normal (applies to non-numeric resul ts) [facility] ([facility]) [place] # 0.7 10 0.0-0.8 Normal (applies to non-numeric resul ts) [facility] ([facility]) ID Date Data Source [id number] 02/08/2020 03:13:00 PM EDT [facility]) Name Value Range Interpretation Code Description Data Moni rce(s) Supporting Document(s) Cholesterol Level 151 mg/dL Normal (applies to non-numeri c results) [facility] ([facility]) Triglycerides Level 118 mg/dL Normal (applies to non-nume godfrey results) [facility] ([facility]) LDL Cholesterol 51 mg/dL Normal (applies to non-numeric results) [facility] ([facility]) HDL Cholesterol 76 mg/dL Normal (applies to non-numeric results) [facility] ([facility]) Non-HDL-C 75 mg/dL Normal (applies to non-numeric resul ts) [facility] ([facility]) Cholesterol Risk Ratio 1.986 Normal (applies to non-n umeric results) [facility] ([facility]) ID Date Data Source [id number] 02/08/2020 03:13:00 PM EDT [facility] ([facility]) Name Value Range Interpretation Code Description Data Moni rce(s) Supporting Document(s) Hemoglobin A1c 6.7 % Normal (applies to non-numeric r esults) [facility] ([facility]) <content>REFERENCE RANGES:</content><br/ ><content></content>
<content><=5.6% NORMAL</content>
<content>5.7-6.4% SUGGESTS IMPAIRED GLUCOSE METABOLISM/PREDIABETIC</content>
<content>>= 6.5% ABNORMAL</content>
<content></content> Estimated Average Glucose 146 mg/dL 60-110 Above high normal [facility] ([facility]) ID Date Data Source [id number] 02/08/2020 03:13:00 PM EDT [facility] ([facility]) Name Value Range Interpretation Code Description Data Moni rce(s) Supporting Document(s) Glucose, Fasting 109 mg/dL 70-100 Above high normal [facility] ([facility]) Blood Urea Nitrogen 21 mg/dL 7-18 Above high normal [facility] Creatinine For GFR 0.78 mg/dL 0.55-1.30 Normal (applies to non -numeric results) [facility] ([facility]) Glomerular Filtration Rate Laboratory test result Normal (applies to non- numeric results) [facility] ([facility]) <content>Units are mL/min/1.73 m2</content>
<content></content>
<content>Chronic Kidney Disease Staging per NKF:</content>
<content></content>
<content>Stage I & II GFR >=60 Normal to Mildly Decreased</content>
<content>Stage III GFR 30- 59 Moderately Decreased</content>
<content>Stage IV GFR 15-29 Severely Decreased</content>
<content>Stage V GFR <15 Very Little GFR Left</content>
<content>ESRD GFR <15 on [facility]</content>
<content></content> Sodium Level 139 meq/L 136-145 Normal (applies to non-numeric res ults) [facility] Potassium Serum 3.3 meq/L 3.5-5.1 Below low normal [facility] ([facility]) Chloride Level 103 meq/L 98-107 Normal (applies to non-numeric r esults) [facility] ([facility]) Anion Gap 5 meq/L 8-16 Below low normal [facility] ( [facility]) Carbon Dioxide Level 31 meq/L 21-32 Normal (applies to non-num negar results) [facility] Alt/SGPT 54 U/L 12-78 Normal (applies to non-numeric resul ts) [facility] ([facility]) Ast/Sgot 19 U/L 7-37 Normal (applies to non-numeric resul ts) [facility] ([facility]) Calcium Level 8.9 mg/dL 8.5-10.1 Normal (applies to non-numeric re sults) [facility] ([facility]) Total Protein 6.6 GM/DL 6.4-8.2 Normal (applies to non-numeric re sults) [facility] ([facility]) Bilirubin,Total 1.0 mg/dL 0.2-1.0 Normal (applies to non-numeric results) [facility]) Alkaline Phosphatase 50 U/L 45-117 Normal (applies to non-num negar results) [facility]) Albumin/Globulin Ratio 1.8 1.2-2.2 Normal (applies to non-n umeric results) [facility] ([facility]) Albumin 4.2 GM/DL 3.2-5.2 Normal (applies to non-numeric resul ts) [facility] ([facility]) ID Date Data Source [id number] 02/01/2020 05:23:20 PM EDT [facility] NT INFORMATIONPatient MRN Name Date of Age Gend*PT [id number] Elena Marroquin 1965 54 years F ---PT Location Admission Date/Time Visit ID Attending Provider --- --- --- --- EPI ID CSN Admitting Provider [id number] ---Name: Elena MarroquinDOB: 1965Date: 02/01/20CIED Remote CheckImplanted Device 07/11/2019Device Housekeeper Manager MedtronicDevice type Single Chamber ICDMRI Conditional Device -Device was remotely interrogated and the following were evaluated:Battery statusSummary arrhythmia logsNew observationsFidelity of the EGM signalIntegrity of leads and lead impendence were reevaluatedConclusion:Normal ICD function.No significant changes continue to monitor.Signature: Law Vasquez MD, [facility], RSCardiac Electrophysiology and Arrhythmia ServiceDate: February 01, 2020Time: 5:23 PMThis document or parts of this document, were dictated using Zhilabssoftware. A reasonable attempt at proofreading has been made to minimize errors.Please call with any questions or corrections. Name Value Range Interpretation Code Description Data Moni rce(s) Supporting Document(s) ID Date Data Source [id number] 01/26/2020 11:17:00 AM EDT [facility] ([facility]) Name Value Range Interpretation Code Description Data Moni rce(s) Supporting Document(s) <0.2 0.0-0.5 CRP [facility]) ID Date Data Source [id number] 01/26/2020 11:17:00 AM EDT [facility] ([facility]) Name Value Range Interpretation Code Description Data Moni rce(s) Supporting Document(s) 0.8 mg/dL 0.6-1.2 CREATININE [facility] ([facility]) >60 eGFR [facility] ID Date Data Source [id number] 01/26/2020 11:17:00 AM EDT [facility] ([facility]) Name Value Range Interpretation Code Description Data Moni rce(s) Supporting Document(s) 28 U/L 15-37 AST [facility] ([facility]) ID Date Data Source [id number] 01/26/2020 11:17:00 AM EDT [facility] ([facility]) Name Value Range Interpretation Code Description Data Moni rce(s) Supporting Document(s) 70 U/L 30-65 Above high normal ALT [facility]) ID Date Data Source [id number] 01/26/2020 11:17:00 AM EDT [facility] ([facility]) Name Value Range Interpretation Code Description Data Moni rce(s) Supporting Document(s) 4.3 g/dL 3.4-4.4 ALB [facility] ID Date Data Source [id number] 01/26/2020 11:17:00 AM EDT [facility] ([facility]) Name Value Range Interpretation Code Description Data Moni rce(s) Supporting Document(s) <2 0-20 ESR [facility] ID Date Data Source [id number] 01/26/2020 11:17:00 AM EDT [facility] [...] 1.1 % 0.0-4.0 BASO% [facility] 2.3 % 0.0-5.0 EOS% [facility] ID Date Data Source [id number] 01/15/2020 08:58:50 AM EDT [facility] Name Value Range Interpretation Code Description Data Moni rce(s) Supporting Document(s) Progress Note [facility] OYHBAw2gHjGJOqAo25/XVPoqWKTiz5KeFKenAQz4VScyUHYeW0CbFTF5xQ4rBRQ3FMkFHgVxOcJhBSW7 lbm [file] AgICAgICAgICAgICAgICAgICAgICAgICAgICAgICAg ICAgICAgICAgICAgICAgICAgDQogICAgICAgICAgICAgICAgICAgICAgICAgICAgICAgICAgICAgICAg ICAgICAgICAgICAgICAgICAgICAgICAgICAgICAgICAgICAgICAgICAgICAgICAgICAgICAgICAgICAg DQogICAgICAgICAgICAgICAgICAgICAgICAgICAgIC AgICAgICAgICAgICAgICAgICAgICAgICAgICAgICAgICAgICAgICAgICAgICAgICAgICAgICAgICAgIC AgICAgICAgICAgDQogICAgICAgICAgICAgICAgICAgICAgICAgICAgICAgICAgICAgICAgICAgICAgIC AgICAgICAgICAgICAgICAgICAgICAgICAgICAgICAg ICAgICAgICAgICAgICAgICAgICAgDQogICAgICAgICAgICAgICAgICAgICAgICAgICAgICAgICAgICAg ICAgICAgICAgICAgICAgICAgICAgICAgICAgICAgICAgICAgICAgICAgICAgICAgICAgICAgICAgICAg ICAgDQogICAgICAgICAgICAgICAgICAgICAgICAgIC AgICAgICAgICAgICAgICAgICAgICAgICAgICAgICAgICAgICAgICAgICAgICAgICAgICAgICAgICAgIC AgICAgICAgICAgICAgDQogICAgICAgICAgICAgICAgICAgICAgICAgICAgICAgICAgICAgICAgICAgIC AgICAgICAgICAgICAgICAgICAgICAgICAgICAgICAg ICAgICAgICAgICAgICAgICAgICAgICAgDQogICAgICAgICAgICAgICAgICAgICAgICAgICAgICAgICAg ICAgICAgICAgICAgICAgICAgICAgICAgICAgICAgICAgICAgICAgICAgICAgICAgICAgICAgICAgICAg ICAgICAgDQogICAgICAgICAgICAgICAgICAgICAgIC AgICAgICAgICAgICAgICAgICAgICAgICAgICAgICAgICAgICAgICAgICAgICAgICAgICAgICAgICAgIC AgICAgICAgICAgICAgICAgDQogICAgICAgICAgICAgICAgICAgICAgICAgICAgICAgICAgICAgICAgIC AgICAgICAgICAgICAgICAgICAgICAgICAgICAgICAg TOCuDGPtSUJaCFDyXEOnJARlDSOkEPCjGXIzTMz2N8mmTKHmXIKhMS7tYZl2Qu9+JQhFMpOtSQM6wvVk pX3TZV4it3IeEIbpSRJlf6PaRVa4ME1LVBJhKSmiFQ0CCJceuo9EKYYbIRVbiBLUc8qnUxJfIBG1UAMl XsznZX4OWDYjX4oylfLkTASsMJCXYKypIQZBKDmvLY NVZELoRTXyAxEjDWjyQC8Wv3TnuUJ2DFs+Bj1DDP3in0MxIOglVXYaBX7xrl7JAMzZEjSeZ9ShshI4PC IgERMxAw8RJERsEEYqkWOsKzGzKUNXVpLvF9RbkC30KFKTXi8+YKbrtdCcMoxDQsDdTTGry1NuNTo6IO 7YPCZnVZb9vDRnDYToF8Odj9ZePx06LVDzBpnxC0U3 bW0zRlCFKCO1SXFfKA6NXJX8OYgmOn3jKWUbKCItFcJ7HXUHHF9TUEWtQBLdpYQhMEOhEYPMHE7NLDtr MZA5ZLPgavQqrALvGXwsBO3BDECvvcLpZmCgQKKVOOf+Kx1SSR3ag4ZnGDkxWlMiPT4lez4YXNpPNoNr Q4I1qMLxJ0M0ACrwJp2WAXYuFYBjEfssNZHFQThpSN 8ORV4yjwT6NI4NgAKdJPWnSNRpmDSrSNm3I91zuXOrTFayTQ6ICUO+Aurea+Kl6QOAUmIZQsNIAfCyXvKR GNPtCiK3BcC7VHp8IkB3QeCL02nStjxdKoGVtfXP4JHP2hGEBdPKBJVI6UtQGoeB8hjzReYCZyVUTBJc HrB30whXIpVFNoQMVvONXbSr0XXGBlL8CckaIgnShd pvAyLYDaVHLGBT9ZXOoarbWuqSYaxXtjAG71uJybSL9HAq0YTrMsDR3pes9VoNQrCu5JEUKuWT3LWLEl VEYbTEKeAYK1IDRfNwEtYBiuUWMcIEIsOPE8CZOzOXEuXQ1XRnWsWNIuRpzeUPAnWWPdNKCvji2OMGMx KYQsQYv5GEMrLFCvYTWzTJwzQJKqQMQcYGT2EVMlEX GcRG5EBqFbNTRtBER1CrdlHKVwXYUzym1VQLPfOCUbMqZ4ElMuBADmDJLjPHtjAFHrRLB6VCOoJUJyCZ MlUD3ZHcJuXQDtMMHpVeJrDTHhCHZwrd6EBIXsJLDcSQnnKNLqDNQhIAUdGBsnSHYaMOL6WGB0SKWmFW HrMO4VRwGvSTOeEINeXLPbCBUaDERxzi2HPYEiAZJt AFQeAJAxKYCkHWZhVFlsRVAsCBOpXndvEOLbYEYcZF5DSfSlSOLfPWW4SwkfSGAdKDEgrt9UWFDyICDg SKX4VLXiMFJwXYUdGGjdXFZfUTBjCgIwJAThMZIuVF3RFbWpNEHoCBA4XuYgCPYyIOIwcw5EFJPnZLAc KkXoFVOaDOTvAEGhYTriSDZsNCB5YFHtKFJfJSOeVZ 9LXdYfWCRkMxX8YiSxWJGuCHLvbx7RUJFoOAVaKVu3BSWvJKIlJKKjOMtpGHMbJHY4XgP1BYIgPAIoJW 7QIyHuEQIuMfPvMaHcGYSoQRMygl9NBNUpZKXwJuUpLJBoIQEzAKCnLZfsISQyXZK9ACTzIFZhAKGaND 2ILiUnMCBaImF5LICdJPCvAYBkwn0JIBLbMSFyZyCq EeVhHPPwFGVvUPvyEBVvZUW6FOX5KNBdCKYqWU2LKlFvDTRfLkp0WYBmLPAuZIXiyf0KPCOdESHdYXRn PXOuXIGbFXCvQPzjIHGmJHK1WVlgYJNmCZLeQC4VRaYxMIDeXyt2TCKfXMMfSXQqzr5ACRBqCRVmYPKh RJVxDIBmUWNpUJs9upFirMFrZUn9DA3DT4HpauUjBw GKBk4Wn984QKXfFYAoEd3TL2knLy8zNGLaCYROXn7QBVw2K0FyZ5LeKTp9LJR1HRZtDcBgNoV0MFyuM5 DqXLM9WWH+VZtpJrGaSLX2SDWsXgZ5HDA4O5FaBGC1SVP4HLJnBhdlVQ5jBWTJTu8+DQpzdGFydHhyZW QNKbPiTuB5OCdaCCEWEe7Y ID Date Data Source [id number] [facility]/06[facility] [id number] RESULTIn terpreted by:YUSRA [place] SHOULDERCLINICAL STATEMENT: Status [...] rce(s) Supporting Document(s) ID Date Data Source [id number] 12/20/2019 11:45:00 AM EDT [facility] Name Value Range Interpretation Code Description Data Moni rce(s) Supporting Document(s) Follow Up [facility] WAJGBw6cFlVUXjPpYFUmVdgKBJvaRXonHQTbD1X3LJeoUl3BVWbtetHzBQWzMy7+ESZlPN2obr4kRDAp gMy [file] tHdQ6ylvYlISgsux9nrYaPXmxzPrcZwxioZmiGtuZY8/h/Wk9JVUzVDZ8YONi798mW6BaB/Ll/B/[facility] [file] commercial real estate agent+oS9LWjA6sxP6ssZJUnBbO6ZP729WaseAIrJOZx [file] nvauG2wogxqgHl30PbxO/kaiako kohanga reo+ed/53V95gc8n0PBFkhNIX7Cc5xCLLGUyryHJ1aezRJ9zOEx2spkVL6Fl [file] nVY9d/Mary Kay/ygO1sNAau3UOeU/onwLHydtHzeIQdvfq+HWig2BLhzBwu5IaCP8GV8W3J979XTOgRp4lRe [file] CWz8uBWsQ0qkPLbafL/GA/pharmacy order entry technician+ZaVs+YGdgN+c9AcE [file] dp/MOLD CAR PUSHER/UGxEq4eic+GPN2UbYUYnJt1whp+dFlBci/ATFLp31g5cdx9pZU9jHbHOneFbYbqZZfwtwaGByQ [file] 8AqBrlvVB+jtpOprjAG15nnBGyKMnDUV7DL8X1a+MERCHANDISE DELIVERER [file] +9Ai/2IhTeFjM52JEi44nPRsyX60WrzNU0ksa63Bvy0AX3HnglS7vzld6Ko8Dn+ham stripper/HfloeDhZHTE2 M8lruE0Y2D0kkS1O3b9XJIxtd3oDznWSIYZJkXJadSejfhJo76XTovHdHeaS6B4VNsCfKT045s/kaiako kohanga reo+8q [file] president financial institution/2ByCdYSxdvr46LsJ3wQLsaoA4xKOCf/Ruud11S9yMNy8jQnAd2VcQyTeRdXipz1T7eW5zrw8dz6l [file] 6kKSrRNIaqQOZB/30lHno5Ndqz+tFE2mSBj4F7r/repairer finished metal MhKpQIjfWKdp854aEqAPm0SyGHg/qtLz+MhN1f+maiNM/X8av+6l897SvrUmtL0078/XbX4qIlYmjvu2 cY3U6UYwF82aP0Nv9U/3UHdcF5BnTBMbQH4ZprXP2W8/WtTbTbryHpewMWuRgDW0nZ52twEvBD0O91Ug 87Kp/3CTXcWodBxLNPTt6r3oWP00dTmx1b2FQ2Iwoj eKq6geVZZw3tbDvOEUvM15iqkSIQAeGnVQBDXJvYHm52B5N8MZTJoI6SbyD6Qxn/es45CofgZDuyWJiV oetbyjzBGnkTdpu2awAwM/71/QKpOxIyP0dE4rzrQ1UnV39S17eDBYoud9DsjeTHb7kKjiHmZdDy8h7u Kelsey/Lw0ZAfMW/92Iez8AjRXrazn2a+oPeth+QRzHi9A [file] v8MHNfJvHBU/José Manuel/b4mV9yhpz3lIDwTH5cXQTklruSJxTygyaNSy1lJ09mhxLEfhJKH2FM5OGLIa90F2 [file] SumDAI2HFMv2t+0Psq4yGydsEq8s697dC/TX/VIDAL/NHaCt2bWuCYe/Sti4lbA9U4ZkF686z1yaBnK/wQ Xp0AIam7SAId59qm/wQ4JHV06yVQPNHXoldAwSxt6i50SjI2e+6JbtNHu6Bo7s3BYCGxLPKuIhDmFS7g escXhIdvws/J5eDiBt9ro5zzr+wGdBDPhAbC+KIqr8 +5vr+3a5EiBZzzpq2ikZ8qa48c4LXU7v5TREBVIIMb1gAvuDQAG1lWs9TL1Co1+qFi3+VDN+o4nXP6B4 Bj+/vcLI15Z4amqVnjU/uqrlMJX/mask inspector+Kd4dR24u+mtjLgLYxG5gFlwTgyEYM0+/JGtvUGtlm/gGIfR [file] Carlos A+6/1+3p3zGodoAfDopwXA5QILAZ/FnyLpl3/Nk7zMGHocNHFSVxeKQuuRTHbvQpmTaa1oDaVlizo0 [file] ILR5M2DJXxp3+37U/8lg6YZTfYPfqRhqf2Pg//inside sales account executive+lSJagOiuGX3sVLwzRyboLVpw54zPl82EvxAocO [file] ag1Uz7ynepSNzenA99VV0GO+jNkKCCyNuPF6T02kbXR7SiEiabFeIPeQzgXf3b3h8sGCZzT//MERCHANDISE DELIVERER+qq4A [file] 1SIZnZ6ay3tVuzKmLDZWPlKAqFu/MATT/lPR+YNm/pwq avUmw0mVYhCA9FwWPdA/pYr+67aMa6uctOwXCAzFgZLUFnnu9PYBMYKiE81/OSniWeq9gAZO5gIvxo8a i7ejCi3JbKgrgq4FNem6eNhDsDzzJc3z+cdcmgaAi/itsKSONvR2QszN0ZRYyzd132dKiTuZNVjRaOdL D0k1fVgGlta6e8gdKAT7WStOaIJQPWL7kJ6Se4i6Cu 2s4Y/wTk8uEQ7sQijsQL0fxcw3WC7Z9YjTyI3cWdfWJdySYC+ch4go8UJYnjA0fP2szNdaY042hXNdUW MQYEgBRXonuHWsDorR6IjEJGlWgNLeSEjRQ1FcMa36LsanLRn6EMcUbIGt6XRCGLjSTegN7IxizeXayu +9LQMCSle0Jj+7txJ0aoicf6kL5fa6wpk+RBpfq/oM cOxJgPaxKh6ew4e53sFq/ovi9tQt+upIbhlH4T4oSWHULsy9haqaS8AgfZWT3zbO9crhxnVBpEJhIkWx 6/4e4n5JpinjuuVTGNc2vGGgtVn2KZnsvEAhz8NOUZE9MMFeOvZGZrGI50wQfctfqvPsbMK3xvDFhJ+o UXZEB1NxyQ9jBk+37/gjKs7smwZd1rkP1SAGtyUpQH /medical record administrator+FdGC3A5csyLK0WcSbLMfFxPyCjx8UKJoBxT56Co5U8PszR9K1eOVwsb2/h7LZOpu3Fb6tc56yTs [file] 6xBJ4aHOzjCzN3WWd+s09PrKc08TF/registered occupational therapist/Ab+uG+F/xTwDnP7fjJhVjMk+aZTeZTpkXXRF6gzEnVDeRO [file] 1T5sU9uNuOHb0jLa9HbXi6NjtLq39f+vp human resources+8JvxzRJuNl+egqvP+pQF/TVtHlKHrzW1I5bCJumq9LZz5i [file] Q/y3+aKL8dI22L/matt+e611pXZbSPIUYZLnVJYjJYASmuRZ+YSXzAT3cloMd9R8a7xfZOzn4098vd4etf wtCRY3escl9hcHnMAvrXhr1kVtYAaqapl91kgR5QBMhGW2xeyqgGLNV+01OV95cTvHr1RCTGLd1Qs75n 5S3gxGwuHi0cCJU9L6UsLIyyCoLM6SC5umz40lXbvh aJazTOt1FPUPuPApyUt0sOudzfLSn0lPL32KS/Owb2qHv8cCboQsA7TaecD8JW6fs8WsyV3zn5Tb/lead cook [file] SOLAR MECHANICAL ENGINEER/8IyohrgiOQ7bj002h8s8umG0YremjvcRUOBlJ6uZsMMu69sNCrGkMEX3lyWEf7+ohIqKS48v6daA [file] XXh/Iy9v3niYleEmCRcpKV9sOgLyCo5CCqx4vB+terrazzo grinder [file] /b+fbJ0D6HDWv1Cv78L/8VKXLp+T1/K1qKgOjs [file] 3D5CAJY2VQpKPVPLzHQXNBNs1DjHX2u4ZEd2mSe+repairer finished metal HNHqK5HFsYb9+GD4+FUToOOz98Il7g1Oboyptp6TnAAer+/mfB8/Rth5nc95k4ndm+742YxwIq77tEKk McOVvvtdHcSO3BQnlq4JlnBmC0wKf364cHPpWZ9xdrx0A6/iHPOLzn4wW8wnSNEL/r3GvMC8zLE9KC12 B48Wndjexxn0kIc6OqaJUToI/uvHcNj6Pu3Nz1yVu6 V1aNOmESJwt+5thn8ElG49mRe1lA4f2pFBflOQueyI92hiOF4H+uff3KTQ/2nuw4f8I7TEaEQ8CkAFse t6al18uDrUJIhWZD7cB1tzlqTxhcOThiU5llgqHss5uFz9Z1VC858d/U9uuLUwspRgkxBKd0Pxwpb2wE QjJ3cw8Qs8UMVf4tuh1LjPDI+TDYCiTbtYyD05cqDa 7cuJSI5+PLnySf0GbmRbB+13c1ZG97LTOkaQ2nzlfBQFKacvAu5lrXFQgdA54wkfh/biwiHLPQEuhqjx uc/zbnbFqf0yQyEcMRFCdXkEUVXdhDElPFhEDdFtIujhLRUqnqQF742URKdY1KxflRdB+zXwaeT7sUSR D99GaplGBpUxgBEXSnYKWViwoAnQOHOxM4M7v+cZkC ik/1dkKuhgCQV0Id+cM8z/GeFlRl2FVAn6frMgtCBc39EkYteCflFxoLfFcrmih1qAcl2om2fRPBxnYv c4zbJXhWXQb5/DWEGdOFEqp2dJKgbRC23K473nALqv2Fx2bVkE9QsUZCCDuSfjPKZp2u1ElPkcdg0rca BaGdFA1oZlmzYoURdbLbr8WXXitl2B+lc3rSU+Simin [file] zyyPUY9n+8a9jy2nyT16o3+deckhand fishing vessel/Qnc7zTBJunGUgvVMl9TQRK+yPPWNK6rmY2QqO+Iw5YOlDSUn8U8/g [file] 8GMP4q67fIbH2oU/ashley+7nhaCwHEpxfBj34sCAQwv85zEFZuA7r6LH3h7df2DDlvQHtQyxfKrizyFuQp AIC08RhtGQ6e3caXA/d5KbXSd9kTsElg1/hQQleqdw LDLDnR1ejyd4aQqn0ufqXMbmtWNQTG3nAm/KBT4ZkBL/H0yBglN4ZtUPjcvMYtDfuVfroLV0RDjTfcVw vk4vZgsRwepck571H9TVCljw+ACS6LvlvoQZ62CSmEE02ym6NCKoiO8I1UnbFEeg0b36H4hLEnyD3hj5 nursing home/By9J/KFScF8mjDMGJvS73/KPWaBVmMGggSODTv [file] 6s6iSeu8zHXyWChiOzYM81KKkXcy4ssa0rDbEx4T5y09qK7oxag+KBHujPz57ysm3sxg/lUqstdv/PACK PULLER NsHqjkBp7ayegMK4XABq3f6F+IIGzbABUsBq74U1+j LCbwD5VSF1mW2yMSlkfPYTfnDFtjGDRpDr0vT1qQqHGIcX34+fpZNLJnfGl7MfzGidLlMOTbnNF10nyy MfN9q5K3Lo68d7Hek/fwn/rvMUANQ1w0C2Yu0ce2uFqARwOBOSPR/82g35XEwqyrszgTodmFdXzZ6who KiJgHEZQkTMcQWd7Xy1Bs1zQJMoLsXEkrM3H7OUjMd q5tzL8prWe0BpE/WGL+t4zBILIQDRTy0Nv73s/HRiyBp8SJzRh8102MvvgVni/hUP+4izbgRW8NTDZwa 25gBTZ5UXWl0nE8cn+jTTTSQ8uxwgzhMRPEbWz3RXnBRztUpnAKOiGYbogUM9/fvHA/5Q5oHQELHCVuD oN0MfzcA59aPuhs6nVEePD5zkSUFpjwpB/bjiwpMRI D5ic+pfI5yBwRU9e/BQmrgnwI6waVBUBXbac8EAU4DlJJYvetEn+vMjOH0Oz89vY8Lp3bNkeIQZWV4Lk pBp/FjjCx9YYRIjOHDW7q7X5VaV6h5MjjU0SNghRufN61iL0/iR+6rbG75HRHXKn5DTpi+5NYbQWVZpi 21yQ6oeErK36Jp/YB7TjJr0jjhOhDwIqdTrZGMIrwA 1yQW9ODO9rzUxLK8bo8qGN+iNr2tIUus1uE7ifADE/RTahKOJKOMvkVO4NsUyzem76J6uJ6uGO75li04 Shanti/k3GFX6/3eSBnrcfppK8RM5oXh0EV0r9EWtWLe3QcBOiu2D6i2BwAw9XI+MpE5oM3eOZ137X0aj9v [file] director of casework+N87HW/9NL/OXvzBsuW3Ao8ZF+CIypNDJCa9cru [file] [facility]+mpp/4an0Ot/iJ6IBXP6FnIKqEUz9gjzMpsvew2rcOKeztCJkoZjThWQ9ABOQ8IwFpSA52QruMGZ [file] ASSORTER LAUNDRY+CcB0yZhPrsIwgAXHG9oVBWQWSh9dNiJmdt5XQk [file] VnJFLbMKOIWMty2I8fsnvCJjhIH5xYfWoMGMKaYknV0578uQsLaUp98m2kGurs/revolving field assembler//gto3Urimn4TO [file] 0/j1Jn6h9mabwWyzx0/blueprint duplicator+tyrFQ6VbnNzJfw2PPHJgCl4gSoX+g8rlhfDUGG4YBwjzxqTPD4W1ObqB4 [file] JUAN M/uYJb5NTDjoeNIxLM9jZAtJQ2KL/cjg7dP3UXHemb2LB3IgFjKf1XHepcFTLJkiSoLTLpTteyNs3v [file] Jean-Pierre+N5B/wavViPBg8ymrrIYa56HZURS5S/TRG5VxW6 [file] vXI5cQUV3pKGZ28T4iVyAoCF9ajjXoVtHleep4P9Z11KlgExd+fur examiner/cqsPsRkL76SX87BuUYpwJxbJE [file] S1VV041adst170TVSD69Uy1eIjx56E8RpR90gRULdU /+zUXvfQ26lEAE7bqqxUxBVfh+buypT6xT9jC+5Sk5//T61iZz93coIvxMRWz6O4p+MERCHANDISE DELIVERER+2EudM7bll7K [file] yYtb/[employer] [file] zkha/W7RjLaeaLZqyEL6r3Ny9NgSvPzKwJfBbs+staff auditor [file] 9xOzyFGS0suejbVGbn2AzJYo0BRqDKvekXfFV85FZ93roBRaQvnix5GstoPoCNDzSP4Q+rr7Uvqm+Kevin GEnZxhQRA88MTL2/QVqAtbjVHw2IwNrg95EsokoWKaLr+1xNRrN0CgoxIFG+aJrjrTHekVZUeOJtwJZX DEr2KBjrXWJtRY6H5dLxE64u1MCCNZDuc+nk1CsX4V sgsruifA2dNyxmtkjS8yNY25aAOUAVN95IrzaKZao5aqTSbzFXIqtPUkLqgGPKLbuWnRQjtbJ1a//gary Pk1KV1424ksp8Pl29CcyddAkWcVWRUOTMRuN83/u7p44/vlvAbenb6XBd5YSUnv2lHOC0BwMpK9gV5qE jPRpUUoM6OXjXQs9/1BnaG0Sqcd+9AdsX54mM7Lr7p CwU1q2nk2lAw6kWrIPky0XeOEt8jgd9GI18EsmeMsT/R4IJ/Y7NLbGr129HuveWaEWGFxtv12jin5Y3z x/+9D+e4nbRSyJ70EP6JRRKXKlG+pu/D+JXpYSvNnbwK4S3GA+hbYgjJS8YGyoE0VXbBZvdiZdQyQ1Zr Hd2PBhFaHBz4Ffcvhj9U1pJM0AEX8DWUKOmWh43aR8 TWG7jnZK6U/Txtk9NJS+HrPre3jKJVMPSK25ooLQxzCp1We7MBEIMaKmQtQnZ/iGGUrv0Yd9EiFq85M9 SKALExJcqetTAV+wXNQVz9Dc7SfufpHWYY6umrK7ZzK4bi43NiACJsfaXC1roN1f+kZW/OxSAOqfrKf4 Hz9F343zBQckD0eD08B4eivdRukD7vLUuUy2eh31ip zP5L+KTsu3k599UCDwFr8uHbrr4YsPFvqWFnF0ldiYQ1gEMBUD6bxLmPGvpsE05ld6Qn3hLOA9Vw1Z21 eg3S5Nq3kBvnRZ0d5+wZdYOfer8BI5fBnC8GK+i63jeyWbgcxQdqUdJct1aMAjP7njeIiamuX9S+4Rx4 u5ITxVak6M/rLK5LhdAz7x/T5UL9NQXb4eePTkGxIB VZP/rfnki07N8h+/+/diARGlUdB/repairer finished metal/j/B/n/zj/f+wcwel1t3Ax5yQgGYz1cowj9WKd/wVCSkIe8dxn [file] 8ADyuBwpfYcOe+B/AGl+WpW16GkyeDMjGQRHrcMWerEtilOzhRS7T/w/Miguel Ángel/8ZrzbC1aPsmcuUEwVFBK [file] +jyuysxvCPP8fzubBBt2s600bqJra7s63t9fwFvE6pYRuURSJehvFCn5+y0F10Cvfc0L1Ev39XgihF or8o6/2HVChQrSpmZkf9eHU6mxJYbCeEDXQn+9Y6i8gv8M6+Ywb2lLVyM9+XkbPmWwBl7aV3zEXl/eLj 8JC+LM3BX9XSYKv+FGdmBdGTMOtkq+O1Q0DekD3GrT laUjyA6WBJ7fDzrPZ4zkMR/BgU0rHH0HCKu/qNXjfiDfL+HQDW9/J7HJ5FRXReCzdMmqWmFlkJMgP/DT u7pMOZk0PUqDt8LxqVyf1mTz43Z/X7fxJRHm9+5qh+3Qq7ygkbh0fck52GD0I6T+PSGI0o8W8K6UJj92 BAeC3cZUR522NYsNgofAx7ZAP0BKNXrOQQv07PQ2si ZJRoC+X8knIoXS96FsGjHR8DEyk9oMMIjFDx4q7Un0g6qdQ4xKYh01GCDaJSTehRx+zzoxacEgAZP+MERCHANDISE DELIVERER [file] z71iTYPva5yr5O40Az51U4AraH52EegFBKHw1eg+kaiako kohanga reo [file] CR46pF7OhzlnYSNzjU0aLAW+PnghHrdz5ECnSCqtxEdT4U3qIB2sdvhF7YVuTpOGtKIRSdLVMEcJE/repairer finished metal RTHCJ484CC0fZHi5FCD4X5KMz4mosuVLhcSsox9WmR 0hZVO83Ae5SqWKy0NSws9CKnHFNs/5gY7xeqV1iuOdcUdgfjWoUZvHN+50qOTHArS88LzEUK8wZPkwB2 01Fsyu5CUelPDiwGlZmCDpeIi6FA5/Nuz0I2GQTj53Z22E0GFWwog/hw0FAKLsshnN0IGtU29pEFMRii OaDnNtikIWZlt/eWNGwEaTIA4CDUeBub1Os5/W9DbJ QP9BZZU99UXzF8QvaXTQY5aOhpvjJtNKgja9exnIOzSlfrFG7MHpD86xVSVaitEPsDprI74veZFXyj3W MHcDZn1WJoGjkNnCsJaC++REI1gWtsv9788elw5Z6SA1TKAJyXWtzDSYFXSlpaoO2LE9HPqQUYgyJFTw oJEVC4SfQZo4R1GRoNm1Ubmg54pbIPJRE7HUYU37iP uEv7C7KMGcWt3IdUuEH4aXEwQxFYl9ijdzMZZXch+toMTo5leGRhKqYXMduFsLFJLmBe6SNy991znMFg mv1Z0oOggpP+cPCsusOzJzZVKNkC0l33qpFOvX1UW009VxfuP955uCZjIEryb366nS4daF9XA3V4rnJY lw/sMTWjsr4uiUMNd3lQDiIkWOXmBOkLntDi43ksY3 Nbn2eZSHy9hqYkwUVm6Qpd4b/VX3ZBwp0z7iS63b9NQVsTYH2pANgFWkYHL+y/I5+8vNsiypk0lr7+Wilfredo [file] Efraín/XSM1830DJgh27YJRcB9RmlNdgN3KL1fNih7Z+uY5K98mr1eo76cLLD7dmpp3OEu1OVG6jdd+bvog [file] ikY1cQAWl1O8HWITHFACHNTWN1RmAjHEKNDRbTQDLmYhQMHpE7VAB+JRngI4BEJUO3PCCHDlvxNjE3Qb P5A3U5WwKPC3O4NrwLNp5gT2Llu4YwUZBdYZSsSJ8mgdHuHNBxPh7JeQmoFWAsC0U5vJZbT4sAVQJrKo IrRJU5TIIrEs4cbUEoKL4LNnriY9WhYIQdAMAYRDAZ Akx+QEYKN8TspvqTBQ4kCfP5lskKXSQ7lCwONCvPvIcNOENPXJBuhPJNXdSpXcYxv8b6JIEOWjMxA5oO 5YzSZfYGLTJmz6AEReEKBwFPNw1TWP0wq0NbDUGdLEohxgFuZneGENikfFOvkNxeIYUBJxBwDtDuPVCQ HdCyZY1Q ID Date Data Source [id number] 12/09/2019 12:00:00 AM EDT [facility] Maxine Zhong MD Patient Name: SHAHID MARROQUIN [address] Date [place] : 1965[place] [address] Date of Exam: 12/09/2019PH#: Fax: [phone] ____EXAM: ABDOMEN AP (KUB) X-RAYCLINICAL INFORMATION: [...] rce(s) Supporting Document(s) ID Date Data Source [id number] 12/07/2019 12:00:00 AM EDT [facility] Jarred Arreguin MD Patient Name: Christi MARROQUIN [facility] Date of : 1965 [address] [place] H Date of Exam: 12/07/2019LidrewAMANDA thacker [id number]#: Fax: [phone] EXAM: ABDOMEN AP (KUB) X-RAYCLINICAL [...] rce(s) Supporting Document(s) ID Date Data Source [id number] 12/05/2019 12:00:00 AM EDT [facility] Ilan Ha MD Patient Name: ELENA [id number] Date of : 1965[address] Date of Exam: 12/05/2019AMANDA Ojeda [id number]#: Fax: [phone] EXAM: ABDOMEN AP (KUB) X-RAYCLINICAL [...] rce(s) Supporting Document(s) ID Date Data Source [id number] 11/15/2019 12:00:00 AM EDT [facility] Wendi Dolan Information Security Risk Analyst Patient Name: ELENA [id number] Date of : 1965[address] Date of Exam: [facility]2019[facility] [id number]#: Fax: [phone] EXAM: CT LUMBAR SPINE WITHOUT [...] There is 2.5mm of retrolisthesis along with ytvrs-tq-ymmwiwoo discbulge/protrusion, mild disc space narrowing, endplate sclerosis, [...] rce(s) Supporting Document(s) ID Date Data Source [id number] 11/01/2019 11:30:00 AM EDT [facility] Name Value Range Interpretation Code Description Data Moni rce(s) Supporting Document(s) Follow Up [facility] CDPGWs2zZcERChKhQLYpSktZJLuxCEoyKHHqP3M4XBnxAi1HZVextoHdDEFwKk7+KQAdVV5lyv6oZDPe gMy [file] Vxzqt2wkrxv0AQd22w57Gc/k71X07tjDXvOCApP0w3GNTpm2OO1vbeyU0MipV9E/XuBdoNFY5BAgG/machine repairer maintenance [file] XMEMUswi0ABNsZ3q8JdCleQ5ZaHiHNtgT8Vh/iV1S7rOlkEI+1adC2Np8vOk8EPIl/5flsU/vp human resources/w1hGV [file] Ann-Marie+0wv7I6a8FNJTzBKDSoYWMEXttzNuLdMq2v6IysESCZx5ZZ0w7NjOPy42Cj2Tr8I1IhxUtyw1B0vY [file] K3gufm2qI/L+3HdZ8baN1sxIIWFsN6m7sw5ObFfpeJB47v+5fbZJY+high climber+Vwrr7/udieGH9DyuK8xUCA [file] chemicals distiller/jPG5WX1R1/QBFL/PtyHtgpvkzSiNO+oQHGDn2y2KHeT0SDw21XToh/f7dhZhSmLrvxujuTP2r194 [file] B7SPqVMyC5o14cs+94Q/mFTko/JORGE LUIS/LZo7foUgLiXq vfpNGKNJzmu5lKCyR6Yoa62vIG6HLoXqn9ZBpFp72cOVXTYVAwzZvs58NePrSd1ObKGdqwb0F7scp57D 4BggNBDjh5tpUnsvxVc4rlUPGw6HKQp33Holp4kt8mGP+mAuFe/OjqNXuanvF1gJeG9GG26m43cHvO6Y YeI6nhdr6sjRh7l8eX4vF3jYQxkMo177jD1fCEoO9D MvXdAnf9OoW7N14MNQVI2V+kXQeF7pnu1aMPG3XpxQMR1BCxw9+sDN+bxJFHSt84iH4U9SPT5isT/SDb yoXfED+IjKMeN1mmPgTyBEfW82/BeXn4b/NxZ73FgaE4j3N5b1W1Egx9hy/y8qg66MeW7iUu1KOOlO/n ARXlcjWnkVwV8ommKZ4r/rKecfZDMMre17MIycBJ5/ NSvr4OhNB9i2lJ+npGLPHdGDIXeR4GU3s1qIzy4StKSOpKKOtiUjPh7ZHAIsf53t2Pe4E+nDOoc1kiBS +/uRaSzUP0hMja2XbyopLoUxltzpxXNGQ+F/Fgq9d35lWf3me46aHzMxWb/yZucULnN8SqQXIXGab2zN v2zkhT9setmau8nJl4JbYqw1MLgTo22qjs9k7tC0tX CA6yhCWd3a6zuZw/NX8oi3u/2EOKNX9f7xao2Ezx5cibytezDym/pBFCerDg0MqjBWDokJZtoNx4heDR YCDyYaaY5VnKZ/DDfi+qbVKkCM//9sSbbX2vzzEV+Wqnod3DSJA7YeoX5taaAMTH+pElLXd9zFyPO/GUILLERMINA [file] 1YjaD6EtlKXDBxfZknkXlLxqpYTGY1+e75fuFmp2A8TNS/S+5dtS4n7qvoYfq5RwM/repairer finished metal/7CGgUFZf79J [file] oYotu2Qxg9XKsWL/5zu6N03i+6BIVCjNGRB5kxk7A/uVtaoRSfEsRloeJKPA8VcbXo+/José Manuel+ISet/RkA [file] MERCHANDISE DELIVERER+Y8CEJmGSJKMMC/YDvLbHOBjMQvgmWSEUw/d4wCqGQyAlw0uzJhzBagEXYuHSV7aZEZbxLaETGsEgJ [file] machine repairer maintenance+a0H6H4ZTkHWlH0o/+fKqTc/Rmr/4ZIzVWcUvsx7f7n9fdapWsB7GfVMGPawV08IEL1j6StlpImxgr [file] 6NrSF1DC6wrvtJJKcYDtQgCgSWr+machine repairer maintenance/XL2/9uivckUeAVTO5/rMySti2L99fku8Kqv67S8b/wkX85QCr [file] 1eLVptQ5WHYnBWuWJAcBs7JUiBTdd+VSdqsQJHq1XymL6V7A/Dulce Maria/UOPGztio1ZhC5c0PTMwhtsAsnAP [file] T2p2U9bHSg+cc1BOSa/gbDTYZZi/s/mFYCPg/KC2Ba34xed/nursing home+ujZtDwavXBPXPBal2V+7jh+niV3y [file] vp human resources/ced33ZCIY5Dw4uSn+KUdxSVUYM/9/pyUMfjz9ik8meZ85vGaxzf/0VaqlwCdxhp9d5omEcLPIxqvc [file] 92NNM/tro1gg/AW5438XD3ii83nMItEu7Oyuo79TvbmW98O4Q3caaM8FEX2LZoz+machine repairer maintenance/ZxOq9LK4GGOiD [file] [facility]+utFR2CRO3n60yiP5/gCcbIVTCesk4rO9z2aAP [file] /shFjxPK11PC7UnpGNH8g5vhw8K/1+K+HlTzTf5 [file] Nt/I/DSQUONrkMOEqNIu1IVAi82x0EtNCkWiwd [file] 1TTjlc46mIv3ZRu0XCDHPMMHVSD3gGRiF5nBKKRzRTxoGMabMrKDk5Ks0bWCaGGDxt8jy7bxtFsLj/kaiako kohanga reo 1Ie7z0BTHeogKyZoJciTnFmFlPMbLG773zZIdGKUGQ bPhhU3d8uoGfRii/ybtUZgQ6j4rWGXKZTroZIg+i2BXD/fk+JQtA94QQLP86Ahvgo2KmxvF1jZ9+n21N CAr00N8LR3NWXUSjmG6rmRA9EjZCf0q+mvl5JGGGBfAjTQoGdSOZq4st20iBfeCO5+PMH+oTB1YwIKnY aPDz97Lk/di7dYsw+D5WzS9o9Vg7lAVsTjPx/lEFFG /GKMYD3Flfc5p5s4i9LGrg5EuEvpdfGJdKoXQ2XW3cR9tnCXAHd1x+KV4XF7lX3mpRYe4CeNwwgQz+cQ sd5sx3ZcX4/5kcbDas+GHdUxJB5wZgFS03NcO3c25TYR8QfMzaFyE3VA+ZpyFU3dlyvEH6p8DT6gcbGc lT/tQq3yr5/J4aciB7+j+AQrw/xD0A+uER7rv4WO5p coLw3EYZlk5LzadabnEgrTMCOl61Q0Nc2VJbSmyVslvk22hnq/CXyl079VKLrRccpI5fWfB5CY6GRCrJ dfDOAr0OuCF+rfkdJlWEacsQR/JK13fcHj9ATBhQEf3UJorTiswjaBc98Z2fxkfPjfquB1y137aRU8lI zbjr99zceevCtGoMK3gya/JE6y76AOcxaE9qnLPvIw LRfTJopemgel0ZAlum/n0nEsphwzGEfC+BvF3EiToYDmuVwbN/aMVatp/hfQ25Tih1zmMf3uEyw7rf4R l0d5EXlQ+tF5+FybI+kEyWXG3TdMDoYA+9+L51brM+AHI0b4EroQOatrozeJIFtFiWUQd77WSAOiqs22 l4ppnsqq67DWACOsc3jtnSvpklTip6ydhztqzcnoDm [file] C7AhLCA+cLkYNA5qPLLFshUYUrdqrCIOaU7vS7bnFprZ9/information technology account manager/sAJWgS3i6cDJo1Y4igguaBik488DXk [file] DKoP2Qs9TU8NP/muQHLmhk3YDt7HnLQ5gQFj3cz+1B7b82iUFkd4itW9qoc4NP7fzK+4/lPKE1qbW+Ping Pong Table Assembler [file] n2KpecaWvCVJ4nmyh7fYmoVrSRCNRSIhKVolGZ/3kzsNwm+679sBGzm8t8CA89V+Matt/DXCdG4nCNHHa0 EGUiXgEDQJp/29JSLKtXdqyATn348x7t0vIJtywluf K9bTV4N8cRljcVmBQBWetmVzFqYxIojRnlKlLer7OassfJDQQVcqZ0hRqltLC0YOFbgsLqP2K5C+C7nk sLJyNbsHASmF76e09J3CymMpqdoEEWls3hJsc74k5EtC96NsfukCdgZd8h94ZsLLuPt/PK4rif0KzUt0 4ztFpaMsacfu5il2UjXz7wFA1SgtyYYkXJnigK4ygt EVjiZizCqKDolNIlx2Ih7Ie76M2LNmw9CmCjE2HE6U2VMPhLQENuaFHj2XLg6HuCBIgZrGh4BZm/AMK7 HwyNHNHhOy+FAG4TZ4KcbLaudipG8T4RbvmiWdIAGM5papTl+Oo5QemFCjATk7CkRFxAWtCqs5YaAbpG uXDu5a265RbREXuzjuCV/VB0f4DxIC17bKIbK79iE9 gkYHL4eM5MN0EiEsDqJfsQ/[place]/snxumwzAUeXxuBknfbdE5P0aXzXH2hytMdUC1BArvrKM5LZ/Nr0XD Pp9bXyCAo3Ew2aYmPo6iDEXbCd1aheKcVGBXZ3+wFgRQwAXOZJy66gElS9s9a760Qg4MSuHzl3heMoKT ONWzT1eh1ohFVYY7kxNOC/WEWHZn6rYuj/QBFhDkYN 7ZVGc4gYy7qbz4Hgt7wDJ1ho/8nVs4dvT4RE7dL0Qou26ve4WO5Cgn3HFJ0YxJ285iVfO/3tEIICon37 v5eJEBKGYq4w58RUelmkjd6XciBTW4lzNZM0BP+XFCvJMhh0jfZ1qEce6W47enJEITqB+kImUf3+zjLC v4PVCtGTRGTBRglbMifhhuj2AINMG4aWUHPMwgunsz [file] zOmy9UaRdRjEHQE+uni8ql8b1bFBTwYfGc/surgical forceps fabricator/3bQAc8du9v8A7TA56yM9BqDakYtMmhZ9vJu4ofqMj LhXGrP98wHarWNE4COG34XA+dC/+L8TKqS1P36X9HE Vn48mr9Bs2XldN+I254k0RPnq4MhlEw7GDXJI+8veFD+vFguoFeo/g+OaGwIFqPthsdRYF5mr+hgzV/t 1a18Ayy00AOp3bcj96jPz7+OrahlKIdbYFu6VE5rW9tvUzZCNtq2f6lW6OY1n2Hzjeo1gsX3LAIJ+r0d kV9AhtiiuQ6G5M1362Iat3vmV3d7zobyMEdHZIxx2z yfyJEJgCp3431n1yrIfr+xxv8UNODbInktnSkx6uzJZfMgQazUg5/21iHKozkApQn4DIfslsKjms/PIh fgj2yfcZF/D/doXtnBsSlNOSWtBSqbIrYJzZxdCURZiC1SMMkK5HXwIZCmXPX2XwUatIvqfKiMGWUHnx SKRR3584Hw7D38go0a5493qypgaLL+VIqs4exIG029 [file] 6xrwZgK3M6aTApm/TcFOzIJO0SFMKxO2B9j8CkCMAxeSxFy76vD8yBhM56n5pjtVCd3xHDIcQ03Q/liaison engineer [file] LWI2iVPzFj3LTCz5TqmdMX9LZLUWI5E= ID Date Data Source [id number] 10/30/2019 08:44:00 AM EDT [facility] ([facility]) Name Value Range Interpretation Code Description Data Moni rce(s) Supporting Document(s) Vasoactive intestinal peptide [Mass/volume] in Serum or Plas ma 43.0 pg/mL 0.0-58.8 Normal (applies to non-numeric results) [facility] ([facility]) Results for this test are for research p urposes only by the assay's computerized mill mill recorder. The performance characteristics of this product have not been established. Results should not be used as a diagnostic procedure without confirmation of the diagnosis by another medically established diagnostic product or procedure. Performed at: - [facility] [id number] [address] Traffic Consultant: Gay Leyva MD, Phone: [phone] ID Date Data Source [id number] 10/26/2019 02:37:00 PM EDT [employer] ([facility]) Name Value Range Interpretation Code Description Data Moni rce(s) Supporting Document(s) 32 ng/mL (31-100) 25 HYDROXY VIT D @ [facility] ([facility]) A REVIEW OF THE LITERATURE SUGGESTS THEF OLLOWING RANGES FOR THE CLASSIFICATIONOF 25-OH VITAMIN D STATUS: VITAMIN D STATUS 25-OH VITAMIN D DEFICIENCY <20 NG/MLINSUFFICIENCY 20-30 NG/MLSUFFICIENCY 31 - 100 NG/MLTOXICITY > 100 NG/ML A PEDIATRIC REFERENCE RANGE HAS NOT BEENESTABLISHED USING THIS METHOD.Unless otherwise specified, testing performed by [facility] [place] [address]

ID Date Data Source [id number] 10/26/2019 02:37:00 PM EDT [facility] ([facility]) Name Value Range Interpretation Code Description Data Moni rce(s) Supporting Document(s) 42 U/L (25-115) [facility] ([facility]) Unless otherwise specified, testing perf ormed by [facility] [address] [place] [address]

ID Date Data Source [id number] 10/26/2019 02:37:00 PM EDT [facility] ([facility]) Name Value Range Interpretation Code Description Data Moni rce(s) Supporting Document(s) 4.4 g/dL (3.5-4.6) ALBUMIN [facility] ([facility]) Unless otherwise specified, testing perf ormed by [facility] [address] [place] [address]

ID Date Data Source [id number] 10/26/2019 02:37:00 PM EDT [facility] ([facility]) Name Value Range Interpretation Code Description Data Moni rce(s) Supporting Document(s) 49 U/L (12-78) ALT (SGPT) [email or web address] ([facility]) Unless otherwise specified, testing perf ormed by [facility] [address] [place] [address]

ID Date Data Source [id number] 10/26/2019 02:37:00 PM EDT [facility] ([facility]) Name Value Range Interpretation Code Description Data Moni rce(s) Supporting Document(s) 25 U/L (11-39) AST (SGOT) [facility] ([facility]) Unless otherwise specified, testing perf ormed by [facility] [address] [place] [address]

ID Date Data Source [id number] 10/26/2019 02:37:00 PM EDT [facility] ([employer]) Name Value Range Interpretation Code Description Data Moni rce(s) Supporting Document(s) 0.94 mg/dL (0.60-1.00) [facility]ATININE [facility] ([facility]) GFR INTERPRETATION [facility] ([employer]) --NORMAL KIDNEY FUNCTION OR MILD DISEASE - GFR >OR= 60CHRONIC KIDNEY DISEASE - GFR 15 - 59RENAL FAILURE - GFR <15 Est. GFR calculation based on the MDRDstudy equation, which assumes a steadystate for creatinine. Est. GFR should notbe used for medication dosing.Unless otherwise specified, testing performed by [facility] [address] [place] [address]

>60 (>59) GFR [facility] ([facility]) >60 (>59) GFR ( AMER) [facility] ([facility]) ID Date Data Source [id number] 10/26/2019 02:37:00 PM EDT [facility] ([employer]) Name Value Range Interpretation Code Description Data Moni rce(s) Supporting Document(s) <0.3 (0.0-0.5) C REACTIVE PROTEIN @ [facility] ( [facility]) Unless otherwise specified, testing perf ormed by [facility] [address] [place] [address]

ID Date Data Source [id number] 10/26/2019 02:37:00 PM EDT [facility] ([facility]) Name Value Range Interpretation Code Description Data Moni rce(s) Supporting Document(s) 2 mm/h (0-30) ESR [facility] ([facility]) Unless otherwise specified, testing perf ormed by [facility] [address] [place] [address]

ID Date Data Source [id number] 10/26/2019 02:37:00 PM EDT [facility] ([facility]) Name Value Range Interpretation Code Description Data Moni rce(s) Supporting Document(s) 127 U/L (65-230) LIPASE [facility] ([facility]) Unless otherwise specified, testing perf ormed by [facility] [address] [place] [address]

ID Date Data Source [id number] 10/26/2019 02:37:00 PM EDT [facility] [...] 31.9 pg (27.0-32.0) MCH [facility] ([facility]) 13.5 % (10.5-14.5) RDW [facility] ([facility]) 33.7 g/dL (32.0-36.0) MCHC [facility] ([facility]) 237 10*3/uL (150-450) PLT [facility] ([facility]) 27.5 % (16.0-52.0) LYMPH % [facility] ([facility]) 8.6 fL (7.1-10.7) MPV [facility] ([facility]) 59.5 % (35.0-75.0) NEUT % [facility] ([facility]) 2.3 % (0.0-5.0) EOS % [facility] ([facility]) 9.6 % (0.0-8.0) Above high normal MONO % [facility] ([facility]) 3.8 10*3/uL (1.8-7.7) NEUT # [facility] ([facility]) 1.1 % (0.0-4.0) BASO % [facility] ([facility]) 1.8 10*3/uL (1.2-4.8) LYMPH # [facility] ([facility]) 0.6 10*3/uL (0.0-0.8) MONO # [facility] ([facility]) 0.1 10*3/uL (0.0-0.5) EOS # [facility] ([facility]) 0.1 10*3/uL (0.0-0.2) BASO # [facility] ([facility]) Unless otherwise specified, testing perf ormed by [facility] [place] [facility] [address] [place] [id number]

ID Date Data Source [id number]/26/2019 07:19:26 PM EDT [facility] Name Value Range Interpretation Code Description Data Moni rce(s) Supporting Document(s) WBC 6.4 10*3/uL (4.1-11.0) Laboratory [facility] RBC 4.49 10*6/uL (4.00-5.40) Laboratory [facility] HGB 14.3 g/dL (12.0-16.0) [facility] HCT 42.4 % (36.0-47.0) [facility] MCV 94.6 fL (80.0-95.0) [facility] MCH 31.9 pg (27.0-32.0) [facility] MCHC 33.7 g/dL (32.0-36.0) [facility] RDW 13.5 % (10.5-14.5) [facility] PLT 237 10*3/uL (150-450) [facility] MPV 8.6 fL (7.1-10.7) [facility] [place] [facility] NEUT % 59.5 % (35.0-75.0) [facility] LYMPH % 27.5 % (16.0-52.0) [facility] MONO % 9.6 % (0.0-8.0) H [facility] [place] [facility] EOS % 2.3 % (0.0-5.0) [facility] [place] [facility] BASO % 1.1 % (0.0-4.0) [facility] [place] [facility] NEUT # 3.8 10*3/uL (1.8-7.7) [facility] LYMPH # 1.8 10*3/uL (1.2-4.8) [facility] MONO # 0.6 10*3/uL (0.0-0.8) [facility] Eosinophils [#/volume] in Blood by Automated count 0.1 10*3/uL (0.0-0 .5) [facility] [place] [facility] BASO # 0.1 10*3/uL (0.0-0.2) [facility] ID Date Data Source [id number] 10/26/2019 07:40:04 PM EDT [facility] Name Value Range Interpretation Code Description Data Moni rce(s) Supporting Document(s) ESR 2 mm/h (0-30) [facility] [place] [facility] ID Date Data Source [id number]/26/2019 07:59:31 PM EDT [facility] Name Value Range Interpretation Code Description Data Moni rce(s) Supporting Document(s) 25 HYDROXY VIT D @ 32 ng/mL (31-100) Laboratory [facility] A REVIEW OF THE LITERATURE SUGGESTS THEF OLLOWING RANGES FOR THE CLASSIFICATIONOF 25-OH VITAMIN D STATUS: VITAMIN D STATUS 25-OH VITAMIN D DEFICIENCY <20 NG/MLINSUFFICIENCY 20-30 NG/MLSUFFICIENCY 31 - 100 NG/MLTOXICITY > 100 NG/ML A PEDIATRIC REFERENCE RANGE HAS NOT BEENESTABLISHED USING THIS METHOD. ID Date Data Source [id number]/26/2019 08:18:02 PM EDT [facility] Name Value Range Interpretation Code Description Data Moni rce(s) Supporting Document(s) ALBUMIN 4.4 g/dL (3.5-4.6) [facility] [place] [facility] ID Date Data Source [id number]/26/2019 08:18:02 PM EDT [facility] Name Value Range Interpretation Code Description Data Moni rce(s) Supporting Document(s) ALT (SGPT) 49 U/L (12-78) [facility] [place] [facility] ID Date Data Source [id number]/26/2019 08:18:02 PM EDT [facility] Name Value Range Interpretation Code Description Data Moni rce(s) Supporting Document(s) AMYLASE 42 U/L (25-115) [facility] [place] [facility] ID Date Data Source [id number]/26/2019 08:18:02 PM EDT [facility] Name Value Range Interpretation Code Description Data Moni rce(s) Supporting Document(s) AST (SGOT) 25 U/L (11-39) [facility] [place] [facility] ID Date Data Source [id number]/26/2019 08:18:02 PM EDT [facility] Name Value Range Interpretation Code Description Data Moni rce(s) Supporting Document(s) CREATININE 0.94 mg/dL (0.60-1.00) Laboratory [facility] GFR >60 ml/min/1.73m2 (>59) Laboratory [facility] GFR ( AMER) >60 ml/min/1.73m2 (>59) [facility] [place] [facility] GFR INTERPRETATION Laboratory [facility] --NORMAL KIDNEY FUNCTION OR MILD DISEASE - GFR >OR= 60CHRONIC KIDNEY DISEASE - GFR 15 - 59RENAL FAILURE - GFR <15 Est. GFR calculation based on the MDRDstudy equation, which assumes a steadystate for creatinine. Est. GFR should notbe used for medication dosing. ID Date Data Source [id number]/26/2019 08:18:02 PM EDT [facility] Name Value Range Interpretation Code Description Data Moni rce(s) Supporting Document(s) LIPASE 127 U/L (65-230) [facility] ID Date Data Source [id number]/26/2019 08:18:02 PM EDT [facility] Name Value Range Interpretation Code Description Data Moni rce(s) Supporting Document(s) C REACTIVE PROTEIN @ <0.3 mg/dL (0.0-0.5) [facility] ID Date Data Source [id number] 10/26/2019 09:15:00 AM EDT [facility] Name Value Range Interpretation Code Description Data Moni rce(s) Supporting Document(s) EGD [facility] WFFBKt8jEeEOKaKzIFSfIcnJVVlgEHtxEQIwA3X6BQkjOp8QZEcflhFuLKScMx8+ALCpVQ8bel2xXNKk gMy 2sRQGyIdsoZ5ZaMBWyk80HQCRiXYuQLzMgOyUqZXB8KWQwIlZmYWH1CaMdBsxxOY4vCAL0IJIwUStlDB VtDBIrPpBxWFYcRB5lSFwtGXvlMq3AUN4tk4IrCJKuOEWxZecDBGlxNOgiEMDbQNTySLMbH904gjHqDu 6KsPEgJXx9IMDxLjQ9NATgJjO1FQDpMl7nKuVyv8Lc Y3NqHBf0P4yTQqeuQ1EcUIkmYZ7wZVD1CHIwAj6BpQoyAIkpSDWFZ6ifRfKaLYUnEWQDZs1+Pj4+DWVu UA5bqa41FESaj0SmTCd9U3W9xMAeA1LqS2QrMPUpcNBNr9bfFaZpLGU1UCTuJamuFL2OMVMvtDGtZLKs YEokZV2yydJdxRD9NI5BuNbrXFWzNSVHSx0+Pi9QYX RgdyLcPsRqIRIxK47poNPkmFRxDxiaRPYSMJ7+CEPvJY6lni76DSWae2GgABd8T0ivhhp4yETxNYFxIC DxDuCaIRZdJX2dFS8OlYR8fADxAZ1PiDRuRK5JzADcSZ8QS9SfAYC6B2HvpJFykyAvI5GuLEEqOUMmo0 VgVZ6RC0DGGPMdZSBfL2PwuJ4cY5YsV1QwV0Fjufkt KYGAPh4SrEQ3bYHbCYKpY9rjuYvzaYWkTTpxC3WruOMCICQFk50zx21raiXdYA8+y0KcBXXhCRa03tp9 ZVAcX/hnMGHOCpt3HZioUTWeViRCxj0sR2jvAzM2RXt5WzudhTT0C6aWkMTF4//aonc9gzy9yu/eD+/z 5YBLps0+i3yv5aZz1mHa7RDXYXzmCJKKnIOWEWJL33 ieoKc5TLyxpXdkxTuX+HPdRPRLwHZse6zW0Y9Go8JWmxQsOqB65+Mw2syn9dee8cSj7+Lm/YpfEV0ds2 ZHQyfGwCDmfEv+lvP/YG25AMutiBmwglOVVpHLViRMM+HgC3UYPPWxOliVUT0yXEbMPbMie8Sed0V1HR CPDXiFAAS+QgQiISEi/u31+ylUQIPTii1W2FLHW9hT [file] OBD7d0gm+qBQ2XvlSzBPLgDEvMnyKCUghPxCt46AEiQIV7O8u/repairer finished metal/BFZDtC60ugfXg7tvpd3rv/Wg2ID /CabK/EoeHeXncah5g8hft7L/+WzPfdNxURiAfJmp1oBAMj8mxnuKLzVAasNNqp/bzd94fc4K+VH2iBM gAvyPAyaaCZzB5L+uEnMA/wUEHYVOfH11Wl43re2OJ 6GXbCCLGe1vxk+udThJKD2dVbcn4Ey26j66YOaVCUfqzqQjzBWZkm6Wa0HeZI+5ReZiTQlM2vhWxH/H6 qha2r6ly6h/d2e4pscRvGjoyksoFsHdCgw4Bd6BO/Q+jLF4dClRjoBIt5/gA8xosjKjBqYWC+9n7SeDh wDpPxwGMjYnyJaIE4o9j7JRcjmPB++phcybrILdYpz DA/+fe0YMrpLtwO0pl6FCN+UlR5LyE77Q2cORooKIrbJTZsusUmkXDpuM8yf6CF+4hMSlGu7h7Dfvoe [file] JaN9m67HPzQTEatoysN7e0abXuvupgsPhOSO9wQ/fjLfp6MHCod8iCqRHukms0ImxPt4CltXDqCG5/kaiako kohanga reo [file] 4Gmw2kGU0NQdFgUDHOqYsmbweDQHGhF9JKziqgY4vJz9pdtpZHIHt0mI/SpuWwnTX1T7a+947q0eA+kaiako kohanga reo o5b5MhZFKpQiNYovjPpzNRW7WYJDmfajTRxYHmi2jd bquLgfJCK9MWccgASIKMf6Wl3ksYbm4kVRvMsAO53dR7z62xO9rsozd5J3tN+sLbvuzwe1l90qqytP0F 2quKZU3J2N8B1eZ6AEkmMVcEjgMPW5fBapKTD3NpGs0wPdtVX/WjowB47Xbz0gL8q4f2e890f3V7sEiU t5PF70TTE06L9VnkNZKSQSThU7PqAmcaeJvQwYhvrw A6Z96Ef65svDMqkOWuNXv+OzwKGJOXxdaCrfNmI5gXxBy7lhIRO9bda0mhiyXTmKZp+OKEWzS3y/MpSE C0XXH/lecW5aLbNBHMQBRz2b0d6wS5+Qi0Tm3VUxqj0Lej7VUYIVbkmwy8LjOSjDvcbIFoAvMv+88X5V 54x8qgyCHWhXeCC53wYkcW6QdesJP13/albAyb5Nkh ybByVCKSo9TVhe05q54QC2KSrnzJKx544oimQVyHZ6M+l2Ym6A6TsBO6S/jjQXvds2FmeQNo3QGnXlpo tc/7tXISbAEngDntzcTKlHsHQvWosXmqafOlq9qxhpruoE3rGloG/cE/guillermina++MSR2F2KlxpfJZuu5l0w5 [file] v+3/xcJ2Xrc0/ANiPlM8feKcmnkeHICew8Lh2cgjbU+GDJXvlTCx7cy29AeqU16CGzzLqn/v4+O0+color technician [file] f6hRO1QGtq4o/odjqjHiDCZnUWMjI8aBO8YYkJbvLcoLqlGltmnfg9KrEch/Hosted Services Analyst//IeHbxVxC4DmMyDap [file] Z8wyb5IuoC54HK3Y0uxvOG3jiirfmfVRjTinm2PWO0xbLzoYLazgiLIhRNDSaXA8kY+repairer finished metal+oIrhYJHcnQ [file] DzSJp2FqP0ZEPDJnQyYJ2P ID Date Data Source [id number] 10/23/2019 10:05:00 AM EDT [facility] Name Value Range Interpretation Code Description Data Moni rce(s) Supporting Document(s) SARS-COV-2 RNA RESP QL QAMAR+PROBE [facility] This lab was ordered by [facility] and reported by XGIMI MILACA. ID Date Data Source [id number] 10/25/2019 02:38:00 AM EDT [facility] FASTING: UNKNOWNReceived: 10/24/2019 at 19:26:00 QPT: [facility], [address], [address] [place], [address], Juan Arevalo MD Name Value Range Interpretation [...] findings,re- testing should be considered in [facility]. Laboratory test results shouldalways be considered in the context of clinicalobservations and epidemiological data in making a finaldiagnosis and patient management decisions.Please review the "Fact Sheets" and FDA authorizedlabeling available for health care providers andpatients using the following websites:https://www.[employer].com/home/Covid-19/HCP/NAAT/fact-ayxok7qsopb://www.[employer].com/home /Covid-19/Patients/NAAT/fact-qjgzo6Mubh test has been authorized by the FDA under anEmergency Use Authorization (EUA) for use by authorizedlaboratories.Due to the current public health emergency, [facility] is receiving a high volume of samples [...] about COVID-19 can be foun jenifer the [employer] website:www.[facility] [employer].com/Covid19. Your request to have a duplicate copy faxed has been acknowledged. Queued to: [id number] ID Date Data Source [id number] 10/21/2019 07:14:02 PM EDT [facility] NT INFORMATIONPatient MRN Name Date of Age Gend*PT [id number] Elena Marroquin 1965 54 years F ---PT Location Admission Date/Time Visit ID Attending Provider --- --- --- --- EPI ID CSN Admitting Provider [id number] ---Name: Elena MarroquinDOB: 1965Date: 10/21/19CIED Remote CheckImplanted Device 07/11/2019Device Housekeeper Manager MedtronicDevice type Single Chamber ICDMRI Conditional Device -Device was remotely interrogated and the following were evaluated:Battery statusSummary arrhythmia logsNew observationsFidelity of the EGM signalIntegrity of leads and lead impendence were reevaluatedConclusion:Normal ICD function.No significant changes continue to monitor.Signature: Law Vasquez MD, [facility], RSCardiac Electrophysiology and Arrhythmia ServiceDate: October 21, 2019Time: 7:13 PMThis document or parts of this document, were dictated using [employer]. A reasonable attempt at proofreading has been made to minimize errors.Please call with any questions or corrections. Name Value Range Interpretation Code Description Data Moni rce(s) Supporting Document(s) ID Date Data Source [id number] 10/21/2019 07:14:02 PM EDT [facility] NT INFORMATIONPatient MRN Name Date of Age Gend*PT [id number] Elena Marroquin 1965 54 years F ---PT Location Admission Date/Time Visit ID Attending Provider --- --- --- --- EPI ID CSN Admitting Provider [id number] ---Heart Failure Management ReportPatient has a history of ventricular tachycardia. According to this report,patient has not had VT/VF. There is not evidence of AT/AF. In regards toOptivol, patient has not crossed fluid threshold. Average ventricular responseat night is 65.Low Torres document or parts of this document, were dictated using [employer]. A reasonable attempt at proofreading has been made to minimize errors.Please call with any questions or corrections. Name Value Range Interpretation Code Description Data [facility](s) Supporting Document(s) ID Date Data Source [id number] 08/19/2019 01:06:00 PM EDT [facility] ([facility]) Name Value Range Interpretation Code Description Data [facility](s) Supporting Document(s) Coronavirus 2019 Nasopharygeal Laboratory test result [facility] ([facility]) Testing was performed using the eliza(R) SARS-CoV-2 test. This test was developed and its performance characteristics determined by [employer]. This test has not been FDA cleared [...] is terminated or revoked sooner. Performed at: - [address] [id number] Freight Traffic Consultant: Susie Cantor MD, Phone: [phone] Not Detected ID Date Data Source [id number] 08/19/2019 01:06:00 PM EDT [facility] ([facility]) Name Value Range Interpretation Code Description Data Moni rce(s) Supporting Document(s) Respiratory Panel Laboratory test result [facility] ([facility]) This respiratory PCR panel detects Influ nalini A H1, H3 and 2009 H1 viruses, Influenza B virus, Resp iratory syncytial virus, Human metapneumovirus, Parainfluenza virus 1, 2, 3 and 4, Adenovirus, Rhinovirus/Enterovirus, Coronavirus HKU1, NL63, OC43 and 229E, Bordetella pertussis, Mycoplasma pneumoniae and Chlamydia pneumoniae. NEGATIVE by MULTIPLEXED NUCLEIC ACID PCR ID Date Data Source [id number] 08/19/2019 01:06:00 PM EDT [facility] Name Value Range Interpretation Code Description Data Moni rce(s) Supporting Document(s) SARS CORONAVIRUS 2 RNA [facility] This lab was ordered by [facility] and reported by [facility]. ID Date Data Source [id number] 07/26/2019 01:05:00 PM EST [facility] ([facility]) Name Value Range Interpretation Code Description Data Moni rce(s) Supporting Document(s) THC negative Thc [facility] ([facility]) Amphetamines: negative Amphetamines: [facility] ([facility]) Opiates: negative Opiates: [facility] ([facility]) Cocaine: negative Cocaine: [facility] ([facility]) Barbiturates: negative Barbiturates: [facility] ([facility]) Benzodiazepines: negative Benzodiazepines: AT ROGELIO ([facility]) Methamphetamine negative Methamphetamine ATHE NA ([facility]) PCP negative Pcp [facility] ([facility]) MTD negative Mtd [facility] ([facility]) OXY negative Oxy [facility] ([facility]) ID Date Data Source [id number] 07/26/2019 01:05:00 PM EST [facility] ([facility]) Name Value Range Interpretation Code Description Data Moni rce(s) Supporting Document(s) Amphetamines: negative Amphetamines: [facility] ([facility]) Cocaine: negative Cocaine: [facility] ([facility] THC negative Thc [facility] ([facility]) Barbiturates: negative Barbiturates: [facility] ([facility]) Opiates: negative Opiates: [facility] ([facility]) PCP negative Pcp [facility] ([facility] Methamphetamine negative Methamphetamine ATHE NA ([facility]) Benzodiazepines: negative Benzodiazepines: AT ROGELIO ([facility]) MTD negative Mtd [facility] ([facility]) OXY negative Oxy [facility] ([facility]) ID Date Data Source [id number] 07/26/2019 01:05:00 PM EST [facility] ([facility]) Name Value Range Interpretation Code Description Data Moni rce(s) Supporting Document(s) THC negative Thc [facility] ([facility]) Amphetamines: negative Amphetamines: [facility] ([facility]) Opiates: negative Opiates: [facility] ([facility]) Cocaine: negative Cocaine: [facility] ([facility]) Benzodiazepines: negative Benzodiazepines: AT ROGELIO ([facility]) Barbiturates: negative Barbiturates: [facility]O ([facility]) Methamphetamine negative Methamphetamine ATHE NA ([facility]) OXY negative Oxy [facility] ([facility]) PCP negative Pcp [facility] ([facility]) MTD negative Mtd [facility] ([facility]) ID Date Data Source [id number] 07/26/2019 01:05:00 PM EST [facility] ([facility]) Name Value Range Interpretation Code Description Data Moni rce(s) Supporting Document(s) THC negative Thc [facility] ([facility]) Amphetamines: negative Amphetamines: [facility] ([facility]) Cocaine: negative Cocaine: [facility] ([facility]) Barbiturates: negative Barbiturates: [facility]O ([facility]) Opiates: negative Opiates: [facility] ([facility]) Benzodiazepines: negative Benzodiazepines: AT ROGELIO ([facility]) OXY negative Oxy [facility] ([facility]) Methamphetamine negative Methamphetamine ATHE NA ([facility] MTD negative Mtd [facility] ([facility]) PCP negative Pcp [facility] ([facility]) ID Date Data Source [id number] 07/26/2019 01:05:00 PM EST [facility] ([facility]) Name Value Range Interpretation Code Description Data Moni rce(s) Supporting Document(s) Amphetamines: negative Amphetamines: [facility] ([facility]) THC negative Thc [facility] ([facility]) Cocaine: negative Cocaine: [facility] ([facility]) Opiates: negative Opiates: [facility] ([facility]) Methamphetamine negative Methamphetamine ATHE NA ([facility]) Barbiturates: negative Barbiturates: [facility]O ([facility]) PCP negative Pcp [facility] ([facility]) Benzodiazepines: negative Benzodiazepines: AT ROGELIO ([facility]) MTD negative Mtd [facility] ([facility]) OXY negative Oxy [facility] ([facility]) ID Date Data Source [id number] 07/26/2019 01:05:00 PM EST [facility] ([facility]) Name Value Range Interpretation Code Description Data Moni rce(s) Supporting Document(s) THC negative Thc [facility] ([facility]) Amphetamines: negative Amphetamines: [facility]O ([facility]) Opiates: negative Opiates: [facility] ([facility]) Cocaine: negative Cocaine: [facility] ([facility]) Benzodiazepines: negative Benzodiazepines: AT ROGELIO ([facility]) Barbiturates: negative Barbiturates: JAIRO ([facility]) PCP negative Pcp [facility] ([facility]) Methamphetamine negative Methamphetamine ATHE NA ([facility]) MTD negative Mtd [facility] ([facility] OXY negative Oxy [facility] ([facility]) ID Date Data Source [id number] 07/26/2019 01:05:00 PM EST [facility] ([facility]) Name Value Range Interpretation Code Description Data Moni rce(s) Supporting Document(s) Cocaine: negative Cocaine: [facility] ([facility]) Amphetamines: negative Amphetamines: [facility] ([facility]) THC negative Thc [facility] ([facility]) Benzodiazepines: negative Benzodiazepines: AT ROGELIO ([facility]) Opiates: negative Opiates: [facility] ([facility]) Barbiturates: negative Barbiturates: [facility] ([facility]) PCP negative Pcp [facility] ([facility]) Methamphetamine negative Methamphetamine ATHE NA ([facility]) OXY negative Oxy [facility] ([facility]) MTD negative Mtd [facility] ([facility]) ID Date Data Source [id number] 07/26/2019 12:00:00 AM EST [facility] ([facility]) Name Value Range Interpretation Code Description Data Moni rce(s) Supporting Document(s) ID Date Data Source [id number] 07/26/2019 12:00:00 AM EST [facility] ([facility]) Name Value Range Interpretation Code Description Data Moni rce(s) Supporting Document(s) ID Date Data Source [id number] 07/26/2019 12:00:00 AM EST [facility] ([facility]) Name Value Range Interpretation Code Description Data Moni rce(s) Supporting Document(s) [place]lafaxine [place] CMP 89701 NG/mL >=5 normal Venlafaxine Ur C MP [facility] ([facility]) amitrip ur CMP 178 NG/mL >=10 normal Amitrip Ur CMP [facility] ([facility]) cyclobenzaprine ur CMP <10 >=10 Abnormal (applies to non-numeric results) Cyclobenzaprine Ur CMP [facility] ([facility]) clonazepam ur CMP 917 NG/mL >=50 normal Clonazepam Ur CMP [facility] ([facility]) baclofen ur CMP <500 >=500 Abnormal (applies to non- numeric results) Baclofen Ur CMP [facility] ([facility]) hydrocodone ur CMP <100 >=100 Abnormal (applies to n on-numeric results) Hydrocodone Ur CMP [facility] ([facility]) ID Date Data Source [id number] 07/26/2019 12:00:00 AM EST [facility] ([facility]) Name Value Range Interpretation Code Description Data Moni rce(s) Supporting Document(s) odv ur cfm-mcnc 83637 NG/mL >=50 Odv Ur Cfm-mcnc ATH KRUPA ([facility]) sn reuptake inhibitors ur ql >=50 >=50 Sn Reup take Inhibitors Ur Ql [facility] ([facility]) venlafaxine ur cfm-mcnc 1800 NG/mL >=5 Venlafaxine Ur Cfm-mcnc [facility] ([facility]) ID Date Data Source [id number] 07/26/2019 12:00:00 AM EST [facility] ([facility]) Name Value Range Interpretation Code Description Data Moni rce(s) Supporting Document(s) Buprenorphine [Presence] in Urine by Confirmatory method <1 >=1 Buprenorphine Ur Ql Cfm [facility] ([facility]) Ethyl sulfate [Mass/volume] in Urine by Confirmatory method <200 >=200 Ethyl Sulfate Ur Cfm-mcnc [facility] ([facility]) Tapentadol [Presence] in Urine by Confirmatory method <100 >=100 Tapentadol Ur Ql Cfm [facility] ([facility]) alcohol metabolites ur ql cfm <200 >=200 Alcoho l Metabolites Ur Ql [facility] ([facility]) Ethyl glucuronide [Mass/volume] in Urine by Confirmatory method <50 0 >=500 Ethyl Glucuronide Ur [facility] ([facility]) Benzodiazepines [Presence] in Urine by Confirmatory method >=50 >=50 Benzodiaz Ur Ql [facility] ([facility]) Amphetamines [Presence] in Urine by Confirmatory method <0 >=0 Amphetamines Ur Ql [facility] ([facility]) gabapentinpregabalin ur ql cf <5 >=5 Gabap entinpregabalin Ur Ql [facility] ([facility]) 7-Aminoclonazepam [Mass/volume] in Urine by Confirmatory method 917 NG/mL >=50 7Aminoclonazepam Ur [facility] ([facility]) Opiates [Presence] in Urine by Confirmatory method <100 >=1 00 Opiates Ur Ql [facility] ([facility]) Methadone [Presence] in Urine by Confirmatory method <200 > =200 Methadone Ur Ql [facility] ([facility]) Cocaine [Presence] in Urine by Confirmatory method <50 >=50 Bze Ur Ql [facility] ([facility]) 6-Monoacetylmorphine (6-SHALONDA) [Presence] in Urine by Confirma tory method <10 >=10 6Mam Ur Ql [facility] ([facility]) Tramadol [Presence] in Urine by Confirmatory method <100 >= 100 Tramadol Ur Ql [facility] ([facility]) Carisoprodol+Meprobamate [Presence] in Urine by Screen method <200 >=200 Carisoprodol+meprob Ur Ql [facility] ([facility]) Meperidine [Presence] in Urine by Confirmatory method <100 >=100 Meperidine Ur Ql [facility] ([facility]) Fentanyl+Norfentanyl [Presence] in Urine by Confirmatory method <5 >=5 Fentanyl+norfentanyl Ur Ql [facility] ([facility]) Cotinine [Presence] in Urine by Confirmatory method <125 >= 125 Cotinine Ur Ql Cfm [facility] ([facility]) Creatinine [Mass/volume] in Urine 69.8 mg/dL 20 - 370 normal Cr eat Ur-mcnc [facility] ([facility]) pH of Urine 4.5 - 9.0 normal pH Ur [facility] ([facility] ID Date Data Source [id number] 07/26/2019 12:00:00 AM EST [facility] ([facility]) Name Value Range Interpretation Code Description Data Moni rce(s) Supporting Document(s) Cyclobenzaprine [Presence] in Urine by Confirmatory method <10 >=10 Cyclobenzaprine Ur Ql [facility] ([facility]) ID Date Data Source [id number] 07/26/2019 12:00:00 AM EST [facility] ([facility]) Name Value Range Interpretation Code Description Data Moni rce(s) Supporting Document(s) baclofen ur ql cfm <500 >=500 Baclofen Ur Ql Cf m [facility] ([facility]) ID Date Data Source [id number] 07/26/2019 12:00:00 AM EST [facility] ([facility]) Name Value Range Interpretation Code Description Data Moni rce(s) Supporting Document(s) Amitriptyline [Mass/volume] in Urine by Confirmatory method 153 NG/ mL >=10 Amitrip Ur Cfm-mcnc [facility] ([facility]) Tricyclic antidepressants [Presence] in Urine by Confirmatory me thod >=10 >=10 Tricyclics Ur Ql Cfm [facility] ([facility]) Nortriptyline [Mass/volume] in Urine by Confirmatory method 24 NG/m L >=10 Nortrip Ur Cfm-mcnc [facility] ([facility]) ID Date Data Source [id number] 07/26/2019 12:00:00 AM EST [facility] ([facility]) Name Value Range Interpretation Code Description Data Moni rce(s) Supporting Document(s) ID Date Data Source [id number] 07/26/2019 12:00:00 AM EST [facility] ([facility]) Name Value Range Interpretation Code Description Data Moni rce(s) Supporting Document(s) ID Date Data Source [id number] 07/26/2019 12:00:00 AM EST [facility] ([facility]) Name Value Range Interpretation Code Description Data Moni rce(s) Supporting Document(s) venlafaxine ur CMP 48845 NG/mL >=5 normal Venlafaxine Ur C MP [facility] ([facility]) baclofen ur CMP <500 >=500 Abnormal (applies to non- numeric results) Baclofen Ur CMP [facility] ([facility]) amitrip ur CMP 178 NG/mL >=10 normal Amitrip Ur CMP [facility] ([facility]) cyclobenzaprine ur CMP <10 >=10 Abnormal (applies to non-numeric results) Cyclobenzaprine Ur CMP [facility] ([facility]) clonazepam ur CMP 917 NG/mL >=50 normal Clonazepam Ur CMP [facility] ([facility]) hydrocodone ur CMP <100 >=100 Abnormal (applies to n on-numeric results) Hydrocodone Ur CMP [facility] ([facility]) ID Date Data Source [id number] 07/26/2019 12:00:00 AM EST [facility] ([facility]) Name Value Range Interpretation Code Description Data Moni rce(s) Supporting Document(s) venlafaxine ur cfm-mcnc 1800 NG/mL >=5 Venlafaxine Ur Cfm-mcnc [facility] ([facility]) sn reuptake inhibitors ur ql >=50 >=50 Sn Reup take Inhibitors Ur Ql [facility] ([facility]) odv ur cfm-mcnc 25275 NG/mL >=50 Odv Ur Cfm-mcnc ATH KRUPA ([facility]) ID Date Data Source [id number] 07/26/2019 12:00:00 AM EST [facility] ([facility]) Name Value Range Interpretation Code Description [facility] Document(s) Buprenorphine [Presence] in Urine by Confirmatory method <1 >=1 Buprenorphine Ur Ql [facility] ([facility]) Ethyl glucuronide [Mass/volume] in Urine by Confirmatory method <50 0 >=500 Ethyl Glucuronide Ur [facility] ([facility]) Ethyl sulfate [Mass/volume] in Urine by Confirmatory method <200 >=200 Ethyl Sulfate Ur [facility] ([facility]) alcohol metabolites ur ql cfm <200 >=200 Alcoho l Metabolites Ur Ql [facility] ([facility]) Tapentadol [Presence] in Urine by Confirmatory method <100 >=100 Tapentadol Ur Ql [facility] ([facility]) Benzodiazepines [Presence] in Urine by Confirmatory method >=50 >=50 Benzodiaz Ur Ql [facility] ([facility]) 7-Aminoclonazepam [Mass/volume] in Urine by Confirmatory method 917 NG/mL >=50 7Aminoclonazepam Ur [facility] ([facility]) Amphetamines [Presence] in Urine by Confirmatory method <0 >=0 Amphetamines Ur Ql [facility] ([facility]) 6-Monoacetylmorphine (6-SHALONDA) [Presence] in Urine by Confirma tory method <10 >=10 6Mam Ur Ql [facility] ([facility]) gabapentinpregabalin ur ql cfm <5 >=5 Gabap entinpregabalin Ur Ql [facility] ([facility]) Opiates [Presence] in Urine by Confirmatory method <100 >=1 00 Opiates Ur Ql [facility] ([facility]) Cocaine [Presence] in Urine by Confirmatory method <50 >=50 Bze Ur Ql [facility] ([facility]) Meperidine [Presence] in Urine by Confirmatory method <100 >=100 Meperidine Ur Ql [facility] ([facility]) Fentanyl+Norfentanyl [Presence] in Urine by Confirmatory method <5 >=5 Fentanyl+norfentanyl Ur Ql [facility] ([facility]) Carisoprodol+Meprobamate [Presence] in Urine by Screen method <200 >=200 Carisoprodol+meprob Ur Ql Scn [facility] ([facility]) Methadone [Presence] in Urine by Confirmatory method <200 > =200 Methadone Ur Ql Cfm JAIRO ([facility]) Tramadol [Presence] in Urine by Confirmatory method <100 >= 100 Tramadol Ur Ql Cfm JAIRO ([facility]) Cotinine [Presence] in Urine by Confirmatory method <125 >= 125 Cotinine Ur Ql Cfm JAIRO ([facility]) Creatinine [Mass/volume] in Urine 69.8 mg/dL 20 - 370 normal Cr eat Ur-mcnc JAIRO ([facility]) pH of Urine 4.5 - 9.0 normal pH Ur JAIRO ([facility]) ID Date Data Source [id number] 07/26/2019 12:00:00 AM EST JAIRO ([facility]) Name Value Range Interpretation Code Description Data Moni rce(s) Supporting Document(s) Cyclobenzaprine [Presence] in Urine by Confirmatory method <10 >=10 Cyclobenzaprine Ur Ql JAIRO ([facility]) ID Date Data Source [id number] 07/26/2019 12:00:00 AM EST JAIRO ([facility]) Name Value Range Interpretation Code Description Data Moni rce(s) Supporting Document(s) baclofen ur ql cfm <500 >=500 Baclofen Ur Ql Cf m JAIRO ([facility]) ID Date Data Source [id number] 07/26/2019 12:00:00 AM EST JAIRO ([facility]) Name Value Range Interpretation Code Description Data Moni rce(s) Supporting Document(s) Amitriptyline [Mass/volume] in Urine by Confirmatory method 153 NG/ mL >=10 Amitrip Ur Cfm-mcnc JAIRO ([facility]) Tricyclic antidepressants [Presence] in Urine by Confirmatory me thod >=10 >=10 Tricyclics Ur Ql Cfm JAIRO ([facility]) Nortriptyline [Mass/volume] in Urine by Confirmatory method 24 NG/m L >=10 Nortrip Ur Cfm-mcnc JAIRO ([facility]) ID Date Data Source [id number] 07/26/2019 12:00:00 AM EST JAIRO ([facility]) Name Value Range Interpretation Code Description Data Moni rce(s) Supporting Document(s) ID Date Data Source [id number] 07/26/2019 12:00:00 AM EST JAIRO ([facility]) Name Value Range Interpretation Code Description Data Moni rce(s) Supporting Document(s) ID Date Data Source [id number] 07/26/2019 12:00:00 AM EST JAIRO ([facility]) Name Value Range Interpretation Code Description Data Moni rce(s) Supporting Document(s) Amitriptyline [Mass/volume] in Urine by Confirmatory method 153 NG/ mL >=10 Amitrip Ur Cfm-mcnc JAIRO ([facility]) Nortriptyline [Mass/volume] in Urine by Confirmatory method 24 NG/m L >=10 Nortrip Ur Cfm-mcnc JIARO ([facility]) Tricyclic antidepressants [Presence] in Urine by Confirmatory me thod >=10 >=10 Tricyclics Ur Ql Cf JAIRO ([facility]) ID Date Data Source [id number] 07/26/2019 12:00:00 AM EST JAIRO ([facility]) Name Value Range Interpretation Code Description Data Moni rce(s) Supporting Document(s) ID Date Data Source [id number] 07/26/2019 12:00:00 AM EST JAIRO ([facility]) Name Value Range Interpretation Code Description Data Moni rce(s) Supporting Document(s) ID Date Data Source [id number] 07/26/2019 12:00:00 AM EST JAIRO ([facility]) Name Value Range Interpretation Code Description Data Moni rce(s) Supporting Document(s) amitrip ur CMP 178 NG/mL >=10 normal Amitrip Ur CMP JAIRO ([facility]) venlafaxine ur CMP 86421 NG/mL >=5 normal Venlafaxine Ur C MP JAIRO ([facility]) clonazepam ur CMP 917 NG/mL >=50 normal Clonazepam Ur CMP JAIRO ([facility]) baclofen ur CMP <500 >=500 Abnormal (applies to non- numeric results) Baclofen Ur CMP JAIRO ([facility]) hydrocodone ur CMP <100 >=100 Abnormal (applies to n on-numeric results) Hydrocodone Ur CMP JAIRO ([facility]) cyclobenzaprine ur CMP <10 >=10 Abnormal (applies to non-numeric results) Cyclobenzaprine Ur CMP JAIRO ([facility]) ID Date Data Source [id number] 07/26/2019 12:00:00 AM EST JAIRO ([facility]) Name Value Range Interpretation Code Description Data Moni rce(s) Supporting Document(s) odv ur cfm-mcnc 80148 NG/mL >=50 Odv Ur Cfm-mcnc ATH KRUPA ([facility]) venlafaxine ur cfm-mcnc 1800 NG/mL >=5 Venlafaxine Ur Cfm-mcnc JAIRO ([facility]) sn reuptake inhibitors ur ql >=50 >=50 Sn Reup take Inhibitors Ur Ql JAIRO ([facility]) ID Date Data Source [id number] 07/26/2019 12:00:00 AM EST JAIRO ([facility]) Name Value Range Interpretation Code Description Data Moni rce(s) Supporting Document(s) Buprenorphine [Presence] in Urine by Confirmatory method <1 >=1 Buprenorphine Ur Ql Cfm JAIRO ([facility]) Ethyl glucuronide [Mass/volume] in Urine by Confirmatory method <50 0 >=500 Ethyl Glucuronide Ur Cfm-mcnc JAIRO ([facility]) alcohol metabolites ur ql cfm <200 >=200 Alcoho l Metabolites Ur Ql [facility] ([facility]) Benzodiazepines [Presence] in Urine by Confirmatory method >=50 >=50 Benzodiaz Ur Ql [facility] ([facility]) 7-Aminoclonazepam [Mass/volume] in Urine by Confirmatory method 917 NG/mL >=50 7Aminoclonazepam Ur [facility] ([facility]) Amphetamines [Presence] in Urine by Confirmatory method <0 >=0 Amphetamines Ur Ql [facility] ([facility]) Ethyl sulfate [Mass/volume] in Urine by Confirmatory method <200 >=200 Ethyl Sulfate Ur [facility] ([facility]) Tapentadol [Presence] in Urine by Confirmatory method <100 >=100 Tapentadol Ur Ql [facility] ([facility]) gabapentinpregabalin ur ql cf <5 >=5 Gabap entinpregabalin Ur Ql [facility] ([facility]) Opiates [Presence] in Urine by Confirmatory method <100 >=1 00 Opiates Ur Ql [facility] ([facility]) Cocaine [Presence] in Urine by Confirmatory method <50 >=50 Bze Ur Ql [facility] ([facility]) 6-Monoacetylmorphine (6-SHALONDA) [Presence] in Urine by Confirma tory method <10 >=10 6Mam Ur Ql [facility] ([facility]) Carisoprodol+Meprobamate [Presence] in Urine by Screen method <200 >=200 Carisoprodol+meprob Ur Ql [facility] ([facility]) Fentanyl+Norfentanyl [Presence] in Urine by Confirmatory method <5 >=5 Fentanyl+norfentanyl Ur Ql [facility] ([facility]) Meperidine [Presence] in Urine by Confirmatory method <100 >=100 Meperidine Ur Ql [facility] ([facility]) Methadone [Presence] in Urine by Confirmatory method <200 > =200 Methadone Ur Ql [facility] ([facility]) Creatinine [Mass/volume] in Urine 69.8 mg/dL 20 - 370 normal Cr eat Ur-mcnc JAIRO ([facility]) Cotinine [Presence] in Urine by Confirmatory method <125 >= 125 Cotinine Ur Ql Cfm JAIRO ([facility]) Tramadol [Presence] in Urine by Confirmatory method <100 >= 100 Tramadol Ur Ql Cfm JAIRO ([facility]) pH of Urine 4.5 - 9.0 normal pH Ur JAIRO ([facility]) ID Date Data Source [id number] 07/26/2019 12:00:00 AM EST JAIRO ([facility]) Name Value Range Interpretation Code Description Data Moni rce(s) Supporting Document(s) Cyclobenzaprine [Presence] in Urine by Confirmatory method <10 >=10 Cyclobenzaprine Ur Ql JAIRO ([facility]) ID Date Data Source [id number] 07/26/2019 12:00:00 AM EST JAIRO ([facility]) Name Value Range Interpretation Code Description Data Moni rce(s) Supporting Document(s) baclofen ur ql cfm <500 >=500 Baclofen Ur Ql Cf m JAIRO ([facility]) ID Date Data Source [id number] 07/26/2019 12:00:00 AM EST JAIRO ([facility]) Name Value Range Interpretation Code Description Data Moni rce(s) Supporting Document(s) Amitriptyline [Mass/volume] in Urine by Confirmatory method 153 NG/ mL >=10 Amitrip Ur Cfm-mcnc JAIRO ([facility]) Tricyclic antidepressants [Presence] in Urine by Confirmatory me thod >=10 >=10 Tricyclics Ur Ql Cfm JAIRO ([facility]) Nortriptyline [Mass/volume] in Urine by Confirmatory method 24 NG/m L >=10 Nortrip Ur Cfm-mcnc JAIRO ([facility]) ID Date Data Source [id number] 07/26/2019 12:00:00 AM EST JAIRO ([facility]) Name Value Range Interpretation Code Description Data Moni rce(s) Supporting Document(s) ID Date Data Source [id number] 07/26/2019 12:00:00 AM EST JAIRO ([facility]) Name Value Range Interpretation Code Description Data Moni rce(s) Supporting Document(s) ID Date Data Source [id number] 07/26/2019 12:00:00 AM EST JAIRO ([facility]) Name Value Range Interpretation Code Description Data Moni rce(s) Supporting Document(s) venlafaxine ur CMP 66414 NG/mL >=5 normal Venlafaxine Ur C MP JAIRO ([facility]) cyclobenzaprine ur CMP <10 >=10 Abnormal (applies to non-numeric results) Cyclobenzaprine Ur CMP JAIRO ([facility]) clonazepam ur CMP 917 NG/mL >=50 normal Clonazepam Ur CMP JAIRO ([facility]) amitrip ur CMP 178 NG/mL >=10 normal Amitrip Ur CMP JAIRO ([facility]) baclofen ur CMP <500 >=500 Abnormal (applies to non- numeric results) Baclofen Ur CMP JAIRO ([facility]) hydrocodone ur CMP <100 >=100 Abnormal (applies to n on-numeric results) Hydrocodone Ur CMP JAIRO ([facility]) ID Date Data Source [id number] 07/26/2019 12:00:00 AM EST JAIRO ([facility]) Name Value Range Interpretation Code Description Data Moni rce(s) Supporting Document(s) sn reuptake inhibitors ur ql >=50 >=50 Sn Reup take Inhibitors Ur Ql JAIRO ([facility]) venlafaxine ur cfm-mcnc 1800 NG/mL >=5 Venlafaxine Ur Cfm-mcnc JAIRO ([facility]) odv ur cfm-mcnc 88311 NG/mL >=50 Odv Ur Cfm-mcnc ATH KRUPA ([facility]) ID Date Data Source [id number] 07/26/2019 12:00:00 AM JUAN A ANIDNOENA ([facility]) Name Value Range Interpretation Code Description Data Moni rce(s) Supporting Document(s) alcohol metabolites ur ql cfm <200 >=200 Alcoho l Metabolites Ur Ql [facility] ([facility]) Buprenorphine [Presence] in Urine by Confirmatory method <1 >=1 Buprenorphine Ur Ql [facility] ([facility]) Ethyl sulfate [Mass/volume] in Urine by Confirmatory method <200 >=200 Ethyl Sulfate Ur [facility] ([facility]) Ethyl glucuronide [Mass/volume] in Urine by Confirmatory method <50 0 >=500 Ethyl Glucuronide Ur [facility] ([facility]) Tapentadol [Presence] in Urine by Confirmatory method <100 >=100 Tapentadol Ur Ql [facility] ([facility]) Benzodiazepines [Presence] in Urine by Confirmatory method >=50 >=50 Benzodiaz Ur Ql [facility] ([facility]) 7-Aminoclonazepam [Mass/volume] in Urine by Confirmatory method 917 NG/mL >=50 7Aminoclonazepam Ur [facility] ([facility]) Amphetamines [Presence] in Urine by Confirmatory method <0 >=0 Amphetamines Ur Ql [facility] ([facility]) Opiates [Presence] in Urine by Confirmatory method <100 >=1 00 Opiates Ur Ql [facility] ([facility]) Cocaine [Presence] in Urine by Confirmatory method <50 >=50 Bze Ur Ql [facility] ([facility]) gabapentinpregabalin ur ql [facility] <5 >=5 Gabap entinpregabalin Ur Ql [facility] ([facility]) Methadone [Presence] in Urine by Confirmatory method <200 > =200 Methadone Ur Ql [facility] ([facility]) 6-Monoacetylmorphine (6-SHALONDA) [Presence] in Urine by Confirma tory method <10 >=10 6Mam Ur Ql [facility] ([facility]) Meperidine [Presence] in Urine by Confirmatory method <100 >=100 Meperidine Ur Ql Cfm JAIRO ([facility]) Tramadol [Presence] in Urine by Confirmatory method <100 >= 100 Tramadol Ur Ql Cfm JAIRO ([facility]) Carisoprodol+Meprobamate [Presence] in Urine by Screen method <200 >=200 Carisoprodol+meprob Ur Ql Scn JAIRO ([facility]) Cotinine [Presence] in Urine by Confirmatory method <125 >= 125 Cotinine Ur Ql Cfm JAIRO ([facility]) Fentanyl+Norfentanyl [Presence] in Urine by Confirmatory method <5 >=5 Fentanyl+norfentanyl Ur Ql Cfm JAIRO ([facility]) Creatinine [Mass/volume] in Urine 69.8 mg/dL 20 - 370 normal Cr eat Ur-mcnc JAIRO ([facility]) pH of Urine 4.5 - 9.0 normal pH Ur JAIRO ([facility]) ID Date Data Source [id number] 07/26/2019 12:00:00 AM EST JAIRO ([facility]) Name Value Range Interpretation Code Description Data Moni rce(s) Supporting Document(s) Cyclobenzaprine [Presence] in Urine by Confirmatory method <10 >=10 Cyclobenzaprine Ur Ql JAIRO ([facility]) ID Date Data Source [id number] 07/26/2019 12:00:00 AM EST JAIRO ([facility]) Name Value Range Interpretation Code Description Data Moni rce(s) Supporting Document(s) baclofen ur ql cfm <500 >=500 Baclofen Ur Ql Cf m JAIRO ([facility]) ID Date Data Source [id number] 07/26/2019 12:00:00 AM EST JAIRO ([facility]) Name Value Range Interpretation Code Description Data Moni rce(s) Supporting Document(s) Amitriptyline [Mass/volume] in Urine by Confirmatory method 153 NG/ mL >=10 Amitrip Ur Cfm-mcnc JAIRO ([facility]) Nortriptyline [Mass/volume] in Urine by Confirmatory method 24 NG/m L >=10 Nortrip Ur Cfm-mcnc JAIRO ([facility]) Tricyclic antidepressants [Presence] in Urine by Confirmatory me thod >=10 >=10 Tricyclics Ur Ql Cfm JAIRO ([facility]) ID Date Data Source [id number] 07/26/2019 12:00:00 AM EST JAIRO ([facility]) Name Value Range Interpretation Code Description Data Moni rce(s) Supporting Document(s) venlafaxine ur CMP 81928 NG/mL >=5 normal Venlafaxine Ur C MP JAIRO ([facility]) amitrip ur CMP 178 NG/mL >=10 normal Amitrip Ur CMP JAIRO ([facility]) clonazepam ur CMP 917 NG/mL >=50 normal Clonazepam Ur CMP JAIRO ([facility]) cyclobenzaprine ur CMP <10 >=10 Abnormal (applies to non-numeric results) Cyclobenzaprine Ur CMP JAIRO ([facility]) baclofen ur CMP <500 >=500 Abnormal (applies to non- numeric results) Baclofen Ur CMP JAIRO ([facility]) hydrocodone ur CMP <100 >=100 Abnormal (applies to n on-numeric results) Hydrocodone Ur CMP JAIRO ([facility]) ID Date Data Source [id number] 07/26/2019 12:00:00 AM EST JAIRO ([facility]) Name Value Range Interpretation Code Description Data Moni rce(s) Supporting Document(s) sn reuptake inhibitors ur ql >=50 >=50 Sn Reup take Inhibitors Ur Ql JAIRO ([facility]) odv ur cfm-mcnc 49939 NG/mL >=50 Odv Ur Cfm-mcnc ATH KRUPA ([facility]) venlafaxine ur cfm-mcnc 1800 NG/mL >=5 Venlafaxine Ur Cfm-mcnc JAIRO ([facility]) ID Date Data Source [id number] 07/26/2019 12:00:00 AM JUAN A ANDINOENA ([facility]) Name Value Range Interpretation Code Description Data Moni rce(s) Supporting Document(s) Buprenorphine [Presence] in Urine by Confirmatory method <1 >=1 Buprenorphine Ur Ql [facility] ([facility]) Ethyl glucuronide [Mass/volume] in Urine by Confirmatory method <50 0 >=500 Ethyl Glucuronide Ur [facility] ([facility]) alcohol metabolites ur ql cfm <200 >=200 Alcoho l Metabolites Ur Ql [facility] ([facility]) Tapentadol [Presence] in Urine by Confirmatory method <100 >=100 Tapentadol Ur Ql [facility] ([facility]) Ethyl sulfate [Mass/volume] in Urine by Confirmatory method <200 >=200 Ethyl Sulfate Ur [facility] ([facility]) 7-Aminoclonazepam [Mass/volume] in Urine by Confirmatory method 917 NG/mL >=50 7Aminoclonazepam Ur [facility] ([facility]) Amphetamines [Presence] in Urine by Confirmatory method <0 >=0 Amphetamines Ur Ql [facility] ([facility]) Benzodiazepines [Presence] in Urine by Confirmatory method >=50 >=50 Benzodiaz Ur Ql [facility] ([facility]) gabapentinpregabalin ur ql m <5 >=5 Gabap entinpregabalin Ur Ql [facility] ([facility]) Cocaine [Presence] in Urine by Confirmatory method <50 >=50 Bze Ur Ql [facility] ([facility]) Opiates [Presence] in Urine by Confirmatory method <100 >=1 00 Opiates Ur Ql [facility] ([facility]) 6-Monoacetylmorphine (6-SHALONDA) [Presence] in Urine by Confirma tory method <10 >=10 6Mam Ur Ql [facility] ([facility]) Meperidine [Presence] in Urine by Confirmatory method <100 >=100 Meperidine Ur Ql [facility] ([facility]) Fentanyl+Norfentanyl [Presence] in Urine by Confirmatory method <5 >=5 Fentanyl+norfentanyl Ur Ql Cfm JAIRO ([facility]) Methadone [Presence] in Urine by Confirmatory method <200 > =200 Methadone Ur Ql Cfm JAIRO ([facility]) Tramadol [Presence] in Urine by Confirmatory method <100 >= 100 Tramadol Ur Ql Cfm JAIRO ([facility]) Carisoprodol+Meprobamate [Presence] in Urine by Screen method <200 >=200 Carisoprodol+meprob Ur Ql Scn JAIRO ([facility]) pH of Urine 4.5 - 9.0 normal pH Ur JAIRO ([facility]) Creatinine [Mass/volume] in Urine 69.8 mg/dL 20 - 370 normal Cr eat Ur-mcnc JAIRO ([facility]) Cotinine [Presence] in Urine by Confirmatory method <125 >= 125 Cotinine Ur Ql Cf JAIRO ([facility]) ID Date Data Source [id number] 07/26/2019 12:00:00 AM EST JAIRO ([facility]) Name Value Range Interpretation Code Description Data Moni rce(s) Supporting Document(s) Cyclobenzaprine [Presence] in Urine by Confirmatory method <10 >=10 Cyclobenzaprine Ur Ql JAIRO ([facility]) ID Date Data Source [id number] 07/26/2019 12:00:00 AM EST JAIRO ([facility]) Name Value Range Interpretation Code Description Data Moni rce(s) Supporting Document(s) baclofen ur ql cfm <500 >=500 Baclofen Ur Ql Cf m JAIRO ([facility]) ID Date Data Source [id number] 07/26/2019 12:00:00 AM EST JAIRO ([facility]) Name Value Range Interpretation Code Description Data Moni rce(s) Supporting Document(s) Tricyclic antidepressants [Presence] in Urine by Confirmatory me thod >=10 >=10 Tricyclics Ur Ql Cfm JAIRO ([facility]) Amitriptyline [Mass/volume] in Urine by Confirmatory method 153 NG/ mL >=10 Amitrip Ur Cfm-mcnc JAIRO ([facility]) Nortriptyline [Mass/volume] in Urine by Confirmatory method 24 NG/m L >=10 Nortrip Ur Cfm-mcnc JAIRO ([facility]) ID Date Data Source [id number] 07/26/2019 12:00:00 AM EST JAIRO ([facility]) Name Value Range Interpretation Code Description Data Moni rce(s) Supporting Document(s) ID Date Data Source [id number] 07/26/2019 12:00:00 AM EST JAIRO ([facility]) Name Value Range Interpretation Code Description Data Moni rce(s) Supporting Document(s) ID Date Data Source [id number] 07/26/2019 12:00:00 AM EST JAIRO ([facility]) Name Value Range Interpretation Code Description Data Moni rce(s) Supporting Document(s) amitrip ur CMP 178 NG/mL >=10 normal Amitrip Ur CMP JAIRO ([facility]) venlafaxine ur CMP 07904 NG/mL >=5 normal Venlafaxine Ur C MP JAIRO ([facility]) clonazepam ur CMP 917 NG/mL >=50 normal Clonazepam Ur CMP JAIRO ([facility]) cyclobenzaprine ur CMP <10 >=10 Abnormal (applies to non-numeric results) Cyclobenzaprine Ur CMP JAIRO ([facility]) hydrocodone ur CMP <100 >=100 Abnormal (applies to n on-numeric results) Hydrocodone Ur CMP JAIRO ([facility]) baclofen ur CMP <500 >=500 Abnormal (applies to non- numeric results) Baclofen Ur CMP JAIRO ([facility]) ID Date Data Source [id number] 07/26/2019 12:00:00 AM EST JAIRO ([facility]) Name Value Range Interpretation Code Description Data Moni rce(s) Supporting Document(s) venlafaxine ur [facility]-mcnc 1800 NG/mL >=5 Venlafaxine Ur [facility]-nc JAIRO ([facility]) sn reuptake inhibitors ur ql >=50 >=50 Sn Reup take Inhibitors Ur Ql JAIRO ([facility]) odv ur [facility]-mcnc 43972 NG/mL >=50 Odv Ur [facility]-nc ATH KRUPA ([facility]) ID Date Data Source [id number] 07/26/2019 12:00:00 AM JUAN A GILL ([facility]) Name Value Range Interpretation Code Description Data Moni rce(s) Supporting Document(s) Buprenorphine [Presence] in Urine by Confirmatory method <1 >=1 Buprenorphine Ur Ql [facility] ([facility]) Tapentadol [Presence] in Urine by Confirmatory method <100 >=100 Tapentadol Ur Ql [facility] ([facility]) Ethyl sulfate [Mass/volume] in Urine by Confirmatory method <200 >=200 Ethyl Sulfate Ur [facility] JAIRO ([facility]) Ethyl glucuronide [Mass/volume] in Urine by Confirmatory method <50 0 >=500 Ethyl Glucuronide Ur [facility] JAIRO ([facility]) alcohol metabolites ur ql cfm <200 >=200 Alcoho l Metabolites Ur Ql [facility] ([facility]) Amphetamines [Presence] in Urine by Confirmatory method <0 >=0 Amphetamines Ur Ql [facility] ([facility]) 7-Aminoclonazepam [Mass/volume] in Urine by Confirmatory method 917 NG/mL >=50 7Aminoclonazepam Ur [facility] ([facility]) Benzodiazepines [Presence] in Urine by Confirmatory method >=50 >=50 Benzodiaz Ur Ql [facility] ([facility]) Opiates [Presence] in Urine by Confirmatory method <100 >=1 00 Opiates Ur Ql [facility] ([facility]) 6-Monoacetylmorphine (6-SHALONDA) [Presence] in Urine by Confirma tory method <10 >=10 6Mam Ur Ql [facility] ([facility]) Cocaine [Presence] in Urine by Confirmatory method <50 >=50 Bze Ur Ql [facility] ([facility]) gabapentinpregabalin ur ql cfm <5 >=5 Gabap entinpregabalin Ur Ql [facility] ([facility]) Methadone [Presence] in Urine by Confirmatory method <200 > =200 Methadone Ur Ql [facility] ([facility]) Fentanyl+Norfentanyl [Presence] in Urine by Confirmatory method <5 >=5 Fentanyl+norfentanyl Ur Ql [facility] ([facility]) Meperidine [Presence] in Urine by Confirmatory method <100 >=100 Meperidine Ur Ql [facility] ([facility]) Tramadol [Presence] in Urine by Confirmatory method <100 >= 100 Tramadol Ur Ql [facility] ([facility]) pH of Urine 4.5 - 9.0 normal pH Ur [facility] ([facility] Carisoprodol+Meprobamate [Presence] in Urine by Screen method <200 >=200 Carisoprodol+meprob Ur Ql [facility] ([facility]) Cotinine [Presence] in Urine by Confirmatory method <125 >= 125 Cotinine Ur Ql [facility] [facility] ([facility]) Creatinine [Mass/volume] in Urine 69.8 mg/dL 20 - 370 normal Cr eat Ur-mcnc [facility] ([facility]) ID Date Data Source [id number] 07/26/2019 12:00:00 AM EST [facility] ([facility]) Name Value Range Interpretation Code Description Data Moni rce(s) Supporting Document(s) Cyclobenzaprine [Presence] in Urine by Confirmatory method <10 >=10 Cyclobenzaprine Ur Ql [facility] ([facility]) ID Date Data Source [id number] 07/26/2019 12:00:00 AM EST [facility] ([facility]) Name Value Range Interpretation Code Description Data Moni rce(s) Supporting Document(s) baclofen ur ql cfm <500 >=500 Baclofen Ur Ql Cf m [facility] ([facility]) ID Date Data Source [id number] 07/26/2019 12:00:00 AM EST [facility] ([facility]) Name Value Range Interpretation Code Description Data Moni rce(s) Supporting Document(s) Tricyclic antidepressants [Presence] in Urine by Confirmatory me thod >=10 >=10 Tricyclics Ur Ql [facility] ([facility]) Nortriptyline [Mass/volume] in Urine by Confirmatory method 24 NG/m L >=10 Nortrip Ur Cfm-mcnc [facility] ([facility]) Amitriptyline [Mass/volume] in Urine by Confirmatory method 153 NG/ mL >=10 Amitrip Ur Cfm-mcnc [facility] ([facility]) ID Date Data Source [id number] 07/26/2019 12:00:00 AM EST [facility] ([facility]) Name Value Range Interpretation Code Description Data Moni rce(s) Supporting Document(s) ID Date Data Source [id number] 07/26/2019 12:00:00 AM EST [facility] ([facility]) Name Value Range Interpretation Code Description Data Moni rce(s) Supporting Document(s) ID Date Data Source [id number] 07/26/2019 12:00:00 AM EST [facility] ([facility]) Name Value Range Interpretation Code Description Data Moni rce(s) Supporting Document(s) venlafaxine ur CMP 03369 NG/mL >=5 normal Venlafaxine Ur C MP [facility] ([facility]) amitrip ur CMP 178 NG/mL >=10 normal Amitrip Ur CMP [facility] ([facility]) clonazepam ur CMP 917 NG/mL >=50 normal Clonazepam Ur CMP [facility] ([facility]) hydrocodone ur CMP <100 >=100 Abnormal (applies to n on-numeric results) Hydrocodone Ur CMP [facility] ([facility]) baclofen ur CMP <500 >=500 Abnormal (applies to non- numeric results) Baclofen Ur CMP [facility] ([facility]) cyclobenzaprine ur CMP <10 >=10 Abnormal (applies to non-numeric results) Cyclobenzaprine Ur CMP [facility] ([facility]) ID Date Data Source [id number] 07/26/2019 12:00:00 AM EST [facility] ([facility]) Name Value Range Interpretation Code Description Data Moni rce(s) Supporting Document(s) sn reuptake inhibitors ur ql >=50 >=50 Sn Reup take Inhibitors Ur Ql [facility] ([facility]) venlafaxine ur cfm-mcnc 1800 NG/mL >=5 Venlafaxine Ur Cfm-mcnc [facility] ([facility]) odv ur cfm-mcnc 06354 NG/mL >=50 Odv Ur Cfm-mcnc ATH [facility] ([facility]) ID Date Data Source [id number] 07/26/2019 12:00:00 AM EST [facility] ([facility]) Name Value Range Interpretation Code Description Data Moni rce(s) Supporting Document(s) Buprenorphine [Presence] in Urine by Confirmatory method <1 >=1 Buprenorphine Ur Ql [facility] ([facility]) alcohol metabolites ur ql cfm <200 >=200 Alcoho l Metabolites Ur Ql [facility] ([facility]) Tapentadol [Presence] in Urine by Confirmatory method <100 >=100 Tapentadol Ur Ql [facility] ([facility]) Ethyl glucuronide [Mass/volume] in Urine by Confirmatory method <50 0 >=500 Ethyl Glucuronide Ur Cfm-mcnc [facility] ([facility]) Ethyl sulfate [Mass/volume] in Urine by Confirmatory method <200 >=200 Ethyl Sulfate Ur Cfm-mcnc [facility] ([facility]) Amphetamines [Presence] in Urine by Confirmatory method <0 >=0 Amphetamines Ur Ql [facility] ([facility]) gabapentinpregabalin ur ql cfm <5 >=5 Gabap entinpregabalin Ur Ql [facility] ([facility]) 7-Aminoclonazepam [Mass/volume] in Urine by Confirmatory method 917 NG/mL >=50 7Aminoclonazepam Ur [facility] ([facility]) Benzodiazepines [Presence] in Urine by Confirmatory method >=50 >=50 Benzodiaz Ur Ql [facility] ([facility]) Opiates [Presence] in Urine by Confirmatory method <100 >=1 00 Opiates Ur Ql [facility] ([facility]) 6-Monoacetylmorphine (6-SHALONDA) [Presence] in Urine by Confirma tory method <10 >=10 6Mam Ur Ql [facility] ([facility]) Cocaine [Presence] in Urine by Confirmatory method <50 >=50 Bze Ur Ql [facility] ([facility]) Fentanyl+Norfentanyl [Presence] in Urine by Confirmatory method <5 >=5 Fentanyl+norfentanyl Ur Ql [facility] ([facility]) Carisoprodol+Meprobamate [Presence] in Urine by Screen method <200 >=200 Carisoprodol+meprob Ur Ql [facility] ([facility]) Methadone [Presence] in Urine by Confirmatory method <200 > =200 Methadone Ur Ql [facility] ([facility]) Meperidine [Presence] in Urine by Confirmatory method <100 >=100 Meperidine Ur Ql [facility] ([facility]) pH of Urine 4.5 - 9.0 normal pH Ur [facility] ([facility]) Tramadol [Presence] in Urine by Confirmatory method <100 >= 100 Tramadol Ur Ql [facility] ([facility]) Cotinine [Presence] in Urine by Confirmatory method <125 >= 125 Cotinine Ur Ql [facility] ([facility]) Creatinine [Mass/volume] in Urine 69.8 mg/dL 20 - 370 normal Cr eat [facility] ([facility]) ID Date Data Source [id number] 07/26/2019 12:00:00 AM EST [facility] ([facility]) Name Value Range Interpretation Code Description Data Moni rce(s) Supporting Document(s) Cyclobenzaprine [Presence] in Urine by Confirmatory method <10 >=10 Cyclobenzaprine Ur Ql [facility] ([facility]) ID Date Data Source [id number] 07/26/2019 12:00:00 AM EST [facility] ([facility]) Name Value Range Interpretation Code Description Data Moni rce(s) Supporting Document(s) baclofen ur ql cfm <500 >=500 Baclofen Ur Ql Cf m [facility] ([facility]) ID Date Data Source [id number] 07/13/2019 07:11:44 AM [facility] NT INFORMATIONPatient MRN Name Date of Age Gend*PT [id number] Elena Marroquin 1965 54 years F ---PT Location Admission Date/Time Visit ID Attending Provider --- --- --- --- EPI ID CSN Admitting Provider [id number] ---Name: Elena LopezDOB: 1965Date: 07/13/19CIED Remote CheckImplanted Device 07/11/2019Device Housekeeper Manager MedtronicDevice type Single Chamber ICDMRI Conditional Device -Device was remotely interrogated and the following were evaluated:Battery statusSummary arrhythmia logsNew observationsFidelity of the EGM signalIntegrity of leads and lead impendence were reevaluatedConclusion:Normal ICD function.No significant changes continue to monitor.Signature: Law Vasquez MD, [facility], RSCardiac Electrophysiology and Arrhythmia ServiceDate: July 13, 2019Time: 7:11 AMThis document or parts of this document, were dictated using [employer]. A reasonable attempt at proofreading has been made to minimize errors.Please call with any questions or corrections. Name Value Range Interpretation Code Description Data Moni rce(s) Supporting Document(s) ID Date Data Source [id number] 07/13/2019 07:11:44 AM EST [facility] NT INFORMATIONPatient MRN Name Date of Age Gend*PT [id number] Elena Marroquin 1965 54 years F ---PT Location Admission Date/Time Visit ID Attending Provider --- --- --- --- EPI ID CSN Admitting Provider [id number] ---Heart Failure Management ReportPatient has a history of ventricular tachycardia. According to this report,patient has not had VT/VF. There is not evidence of AT/AF. In regards toOptivol, patient has not crossed fluid threshold. Average ventricular responseat night is 65.Low Torres document or parts of this document, were dictated using [employer]. A reasonable attempt at proofreading has been made to minimize errors.Please call with any questions or corrections. Name Value Range Interpretation Code Description Data Moni rce(s) Supporting Document(s) ID Date Data Source [id number] 07/12/2019 04:17:00 PM EST [facility] ([facility]) Name Value Range Interpretation Code Description Data Moni rce(s) Supporting Document(s) <0.2 0.0-1.0 CRP [facility] ([facility]) ID Date Data Source [id number] 07/12/2019 04:17:00 PM EST [facility] ([facility]) Name Value Range Interpretation Code Description Data Moni rce(s) Supporting Document(s) 1.0 mg/dL 0.6-1.2 CREATININE [facility] ([facility]) 57.4 mL/min/1.73m eGFR [facility] ([facility]) ID Date Data Source [id number] 07/12/2019 04:17:00 PM EST [facility] ([facility]) Name Value Range Interpretation Code Description Data Moni rce(s) Supporting Document(s) 34 U/L 15-37 AST [facility] ([facility]) ID Date Data Source [id number] 07/12/2019 04:17:00 PM EST [facility] ([facility]) Name Value Range Interpretation Code Description Data Moni rce(s) Supporting Document(s) 69 U/L 30-65 Above high normal ALT [facility] ([facility]) ID Date Data Source [id number] 07/12/2019 04:17:00 PM EST [facility] ([facility]) Name Value Range Interpretation Code Description Data Moni rce(s) Supporting Document(s) 4.4 g/dL 3.4-4.4 ALB [facility] ([facility]) ID Date Data Source [id number] 07/12/2019 04:17:00 PM EST [facility] ([facility]) Name Value Range Interpretation Code Description Data Moni rce(s) Supporting Document(s) <2 0-20 ESR [facility] ([facility]) ID Date Data Source [id number] 07/12/2019 04:17:00 PM EST [facility] ID Date Data Source [id number] 07/21/2019 04:40:00 AM EST [facility] FASTING: UNKNOWNReceived: 07/15/2019 at 00:43:00 EZ: [facility], [address] [place], [address], Korin Jean MD,PhD,DAYAN Name Value Range Interpretation Code Description Data Moni rce(s) Supporting Document(s) Chymotrypsin [Enzymatic activity/mass] in Stool 2.5 U/g 2.3-51.4 [facility] This test was developed and its analytic al performancecharacteristics have been determined by [facility]. It has not beencleared or approved by FDA. This assay has been validatedpursuant to the CLIA regulations and is used for clinicalpurposes. ID Date Data Source [id number] 06/30/2019 03:00:00 PM EST [facility] Name Value Range Interpretation Code Description Data Moni rce(s) Supporting Document(s) Follow Up [facility] APZTOh0nOyCKYkGfJOBxCliTKSxcFDbxKPTtB7B7IJviWf7KIHohnuHuXIEmBj2+LDOuWU7muz6rCNVh gMy [file] Ee4u70B56Y2y+6YrHikO2/g9Ch1N/fTlq5jSAF9114 Unpgt4eJnsZ9i4hXXcVXxLjSl1nZcLEy92L2McijGGLAO8mv9kw3E78YK0sgEvUHyEVvIY5ygcTQR5ST qwTUG5iB1rYAdWYupe8QM++xZh7536zOlPRmFsYAfdyNERFNThlnOLZZe1ybhyiXEx9LdF1evNAgJx6N w4Mp20mF98FILtriimw1bIJXLz3EKPS0Kp+MUZJC1V Efn3IvH7th9cvtYGbOMTF9wYhtb1qA05dGsd8wOXBYjv7WLPIaGoOHJ258Zx1ATtu4FbhzueQpjhRYpC 1b7kUgc1tDh+JVBGj3u+ZKGHlFEvfyn/NGOMjzye/UqWW7dFXXP8lDNnphlHtZKXD23n/1chHYcUP3rw zMH22Lv82qF93SrCPUstoVXxvJZ/Bt9mc8Cdny+9aX 8W3uXZSjWufM9F7kc9aWVFwZT1L/w4OeY9fATSl6HG+478jN8SZfkVIaxnJSZw4daSRoAGaK5LzQQKpq qjkHUd8RC8/EW+rM7TkoLuZD6LrgPXvG6VqDsg8CPDfZl60Q/bXV9qbb1LBSTvHpYyYF90T8XqHOBcz2 1JDrL4IXw6I2d9e8AEFp6HGfcvhF+e6Q+6Q6yxonQ8 EmLBOHj7qJnvhJLxl98qPEkJYnB4W9ysyXzQRT0U+62oDrmwHrP0m6pP7DJ4ccFHZfh0DRw0EZ+FÁTIMA/b [file] J6h1ASvBC8tqV4YamlWLQK0+8hLKCel308rmPfy8AQ5Uik3ZCxjzZJ2asip9SChaw05vMdHDx1bA/Carlos A [file] jXBmfNq0+LqTgRjQZ+1vTMztXT9MrWct/zcYM2emM8dqE463JiS+skilled nursing/mxMoNvIKjr0yQe/09yiscNnW [file] h9plGn6XRXzvTn3+Hosted Services Analyst+11u8QTZJJHXWwhyDkgHZBm7Tuqdt5q+qQfIxcLLwVhE98Xnhw9DRinTKxbcy6 [file] yp/iXCGi/B66NIq1cjAq3dsxxf4r5d5+kaiako kohanga reo/Zi5iry1u/+QEQZI/cKr6mfAMrqvtRzDYjMN+fXwEfAPFu rS7VxwEqqbjoOGcOw/Vg4k6dX5KSWshRvV6m8FK5kXEcMrtQU5+MUIa3nZJv3HeMo0OOCpM9+Vld82JO uLbhM1Hlv0P2t9BBr/RXIuaO4MCvO8qPM3w6LQ5wPe MN6n3vQVc495jc686K1HN6gFwjLc+ldA1MNBEE40M9vr6+/WSKl9lxT6nVJdKudlejiwnA6WmTELFt7h IEb0+8kV6Z3WU/105u0ABgPyDtDpVZ8H/ridHgj621KIgdha2PRbmUJH6Sev3H/P2V7+MNIVuBVJnOCj iqSJ+STQNtKax1vZ1LO1GZwSoHt0TaPvlxNijF6Hqy BHCmDODaxRkp+nFrubWAZnvOgWXewaRRL2E5rViuK2lnTxhnSOtrPhJd9ovWR74WGZqiGf66ZGP4vNhS HF8hphoy7IMYvAoV9dFZKmtzaWXCsmCd1jUiM1QXOAQ95VpA3sJLZylVwo3Gwp9PtUnbfrgyqACU0HRf D1Ph06SecTzBc7/3tnKoWeJlxcLIxrPInEYJhwkkkM b1nioVbdFt3cBI6sDupv4pw6aqZIdKcpZ99sLO8W853eIiwd5fL+UT42Mcej+PEKEwMxC06bsDf4XFhR CeRfP2bd1eY3BRR8IyBoTVqz6kmFIjaYvj75saT23laxdDrrf7Zp8Kc5m17grqR4V46mUcB6ITm+aw7L RZ5AVVpimancr1hr27WylQW28iW0Op7sXzGMmA/Alfredo [file] XtKf8Q/Tq/HwOfe9yFFQWcEulgnsMjLFEdBwNHb2Svv3PIxhD+xfSAm43pkzzykigQqEPTPO2hyg/Confectionery Maker [file] XX9MgGmuECFUi7hoTjdissPAhE2YqYyxt2ETzmr7fYkt3jefx4/educational manager/kfCiUIOJLhS/qjzP1tu7ZJ66t [file] fYMVNiJx6Z5o1EfllgMnI8js9huc6TdEwW/jJEy6quvRLYcv/7H+Dulce Maria+0RfaR4zQjOOXtBu4mdysPpWd [file] 8hGbWenAffCDsir2/Meño+njZ919GtoYEHItIBO804 [file] G/3RCSLAw4ipjFaZsMt05wcNl8qvFlH/9ZcBrxSyd7iRDqqDeNzS8Q6n7/2cfRw/MOLD CAR PUSHER/XI8SviGtl9AwX [file] 6UgV9o8IqFs72p/Juan A/x2Zu7W61Mu8kXnrtcsx722xEd2yQ30ts3e19jC7ieia8YMio1LKcurwi6H5W [file] cfj7FjIKD1IdmDtJEFJbmvJCASYExbeu3Ik7R5bSMlzTBF4J1tafVq8/Vidal+NVzVZf+3wjfprVX9ogvi AkI6etgaGFuh+lt2C7g5Sjtnbc3MOvOU9zPJ2AuKvy18iGu3XuVxgHQZm/Mvirqz4/llOU8VjCz1VKDU knp7doQEtBNQwQ3icdTdA3kBbdUvPYEDRptOhSZCTf IS1FLwMwSvWbvgq6f42AaJ1mDDhVzmVuDUG5Fd6ZV2kcPbAVyOZ/AaEgdZSnmgUQJ1G2xL+U2ooCTOur 6g9M74IoOALfwDzc3fsROy7QqRHsDHYX0FnOEZS//z4pcZSDxemORFvcGGBQhzWZhpElfXPI+XQMSX+j JRq0e0J1ORXZYu0RLpBk46Idvy53E0R1ysSzxIdgwL MvhtqAajWJcEpc7kW/kz7O/g47EayYtDsXUlfByBXtT2yuWpPItrIJsZLPr+4+pc64DnW3bdP2FXiXzS vnExOj+Ep5tvfqSclAL5/IwLglDL1jBMio55xHpVdDj+ho0XLeWbVYhlX3Q1bCm7GlFbYytYScvzx6Jk x3Pds4Z5AWslGeKZtd2NKt0CTNMujSZPDyev1tFC2F LlpodzX41cR6nEOx7JJmGpHsth2iV23MIItvNRfk06xNtS2Sa+UcuvsKotbac4LJotoKASKFCLV6d4a3 OUMasyUR2FKWqp0uf4WPyosn/PBt1pcbSUnc8XdkLeH08lq3oYJaj78dvaOFMuQIoBeMxwuaE+8wAuEN fMMRgtzk7Iem0hHoWX/oeXxOB4k6YkF4XCS8Pspa0l VwThOse94csX/XQUmMMZqybgQr6k5g/jk+e5a3XWzBd5zq41ocmPmhzMk/lX2KCHRS7ATYGluFSK/4BD machine repairer maintenance+tGtnPT9C9nU6B92+cntpI8XLX+nRKB/8mHZLDz6vhbmJ5ckwrYyU+keiWIvvMdvnW7xBc2p2C0apu [file] OPERATOR [file] uPADx3px694awnQuoLKmxwotXi+ParnDZ/W9F6PnEE3UcS0lvIl/merchandise team manager+VvGWm3pROIM4YXy0kbWZFk5q [file] Fátima/kVT3ABsq1TcsHXllrwOXfiDRyV9UJmjabdWlQn [file] ZzqCQt+Segun/7vdTbSJUIhkw0k5I3FhV08xsXCRcs1Hy7XqAQp43TB1hOFLknCj8kAY1h1WlpKl97n43f 1gIw4Eq/3jUPmhc1Tn48ID889ZUx86bWNjPDo1L/bhqsBzerdwGTvwJSIkdp651DAibmSiS0riMvZqrp 6uXvllguNJmQaVACE+rV+training and development professional+TwI5BXnWc53RS+NY0 [file] FeeZWdjuqIEhiR7uKzdRTqbLSP7ZRby8M+[place]/hUnABFjhXu6m56z2kU9aW4ht7VOwb7scMF5IiPcbRY [file] 9uTygnPZoVBZbciFOlxfGmh4UyZf99PMLh8wxd4G87/YMcd0iRL0/xQP0zUpw2OJ+EvR4luNv7t3+AUTOMATIC 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 [file] DX+I3uyXZHZ/BPtbpZBX/+43fR9zb3Q+b9vwen [file] 78BWCoi1/2dcNg+WNjhtw8uMtAgTwnUdmwPvj7NYevV8jg3yYAZ3TuM9iBWbRQAQKO/CASE WORKER/15lVsYwfw [file] Mary [file] 0GFLL+7zgOgnbrRJiGPZJHgMS/Qmu1GRdDwrn0C/repairer finished metal [file] iyOdEv3eWB77vQ5qOWjiCTWDDg+c5c3RZiPEiK8/ENfmSQIVAcx0SXvWapm+occupational therapy professor+CRY44yonrejrzWby [file] ocNMZtZNrMapoNDH48+y4wm8bIC8gAbbSiAlkkxmM6T4sDj597aB5G+Pu9ft+lAzFwfhicWJyN5SU+MERCHANDISE DELIVERER [file] Miguel Ángel+pMFc8mabMg0GZy5MqIn7GYnRfE8Hs6hB8tjQMt [file] kohanga reo/h/Q [file] 7u03wKYYLYAT8QpLpDH7TtbgrKjPG1bw/Víctor/M4a7IiZO/H8W97Mizlkww7fPAzaXS1rnDWltWgc3RnC [file] x2u/director executive communications+ZWRw56ylvxd4cDYPM0vs2jhulBrkbVohUCR5viAoUM/nMMH/7in4iKj6ngEqnN5WHHEAx2Cf Pn+3TQqsX9/xDwedXfFn++ri6UGS3+9Yx87wBg03o4 RH9p+V+M7D95/7fx/gwQDEB62a8LTH3VavG1QJCfExm1RPmJH0P3WDIVf/qLzl4Hb3bgXwJwh9JzG8kb rOu1YOhEJ7NvJnt7xh3uysC/oB//A7n7I16d++Vahe+dw4Fy4AIMsnOmtjf915vKGvBbTQX2KlrzLJIr8 IKA8XfuXIUKtie9hgPZeAT/+pRqZj9brVP3zzzciVG b07aS0ZH01VVT6LIve9L3ML9Y8PeZA/sXD7eK4lFHK3RJ3k+bblaohKVcsX8Gis4iUfLlRlGDkaIcrHN WmpjdoGW8ToxMeG7nZPAZwRZoEY3CeO6awn/1XdWdlYvpYZsRGS2YsZjBiiOQxieLdp7h/RBXaQ1dX7N cc9oUX0eHoO/Y5qeNpD9XyeVrN88/9x9C8majmzrZD OH2w1vf/CH2YyfStifLYbeABd4g33FiBvkywfLhWychExM75GUqlaQ2m7ctrCqwmuc/lpiSj5MdPjJB+ 0UCc1qcTfy3EfJXZr0TrmZXPF7AcCgFi5GWp6oiD5qdDP0lmWkuD6CeY8bX+SrN5isUjUr4K6Rch3lpJ ps7Ir8eYQM6HUj9dd4IjJh+oMRtRTUECD2MDd9CNln /c0q3lOa3bcvtH0xmt5C6+dEi3Yx84yzYRRp2eC4isI1YodCaP6SjGy4+XGQMOupN+7KCfSrlPuKVfFc V26D2yH/PNHG+7y82K49UBu0N3W6CvJGGTns+hnn6V6jDiYMiI4uMAaaM3VtErKx1y6aciAoroA2eqer 5F8gHOz4F1mZgfA2eR6UjFKrTo2gk1fHzpQer+28Ya vI5aQib38HawWZS5PZJHqbB28yP7nhDtJZa0V/9vEh9OvJJfz0D9qlerJJIIDIJzTgPc7EllocUW5G9H cXfErK/XJWRPYNPllLHT5BtfbFT3vU2AsqPp42PeI+NIKITA+nMiv0Ya62DSobhC6f1t35t7BweKmaqVPYQr [file] +R+KxxtJH4YaUckVsdMbs+fátima+5IkDF8jWjJy40w1MdOMDzFhR29mkMa/5Q0DvA+G2pEFHVSs4oq8Ewo [file] kaiako kohanga reo/vLnBWF1Qa+B338kFxIJUlHwZ54TqewUNXuFua4jlhSyVjiWlwH1V6JeRPYmzEeINke3TVsGC8FL1h [file] MERCHANDISE DELIVERER/0IDkEbCUhcGg54/BGK00RXl/4Ek/q+kLJe15e/A [file] machine repairer maintenance+VNFtdyCgQ+WjxP35lJ9CYIqKBBAlQme/D3/39jFp5vc+PokOgeJ+fYcoPm2tzdfQCLRHoybEB+9nK [file] portable trackman/PLB2HLGIQgsj0vHFpoWFFj+hkleKXYGtlMiPxntgAg5gVS/e4SZqAiIRDAj996mM9MoThy90tylW [file] rehabilitation therapy aide/NbrIzpKYkm1jwpeNwplAN4gtnBpqlhJsymj/Ug [file] D1J1VLSkCRXFQZlpQIXAWoO0XFLRDQLbOZPZPJyNVUXbBLtvKUhaDEI1ZUESTXC9DuY+WA2Tt541DHGt DPFAB5nbVa8cJvNzZLRjA1d9HKBeMD2VwSTzJM0HHr LwR2xkBuKfPVRuYU8+s5FeTILjVNw70tOiDABYPhTIccux4kYSbzYYwYMRTTUlsAPoUMJWP0EdzPJC7I 76ZQQSnnOeJ1BFaPkCGN9vRjIIjPR3TyApaTyQedCT5apLgFYfBvOCwHSFGXtqopAalPIeIE2KUcXvZT 7hpg6MVaV7TUW4mUWvMw1PQCq5GBS4NW4OQXUKQ2W= ID Date Data Source [id number] 06/22/2019 07:19:51 AM EST [facility] NT INFORMATIONPatient MRN Name Date of Age Gend*PT [id number] Elena Marroquin 1965 54 years F ---PT Location Admission Date/Time Visit ID Attending Provider --- --- --- --- EPI ID CSN Admitting Provider [id number] ---Name: Elena MarroquinDOB: 1965Date: 06/22/19CIED Remote CheckImplanted Device 06/17/2019Device Housekeeper Manager MedtronicDevice type Single Chamber ICDMRI Conditional Device -Device was remotely interrogated and the following were evaluated:Battery statusSummary arrhythmia logsNew observationsFidelity of the EGM signalIntegrity of leads and lead impendence were reevaluatedConclusion:Normal ICD function.No significant changes continue to monitor.Signature: Law Vasquez MD, FACC, RSCardiac Electrophysiology and Arrhythmia ServiceDate: June 22, 2019Time: 7:19 AMThis document or parts of this document, were dictated using [employer]. A reasonable attempt at proofreading has been made to minimize errors.Please call with any questions or corrections. Name Value Range Interpretation Code Description Data Moni rce(s) Supporting Document(s) ID Date Data Source [id number] 06/22/2019 07:19:51 AM EST [facility] NT INFORMATIONPatient MRN Name Date of Age Gend*PT [id number] Elena Marroquin 1965 54 years F ---PT Location Admission Date/Time Visit ID Attending Provider --- --- --- --- EPI ID CSN Admitting Provider [id number] ---Heart Failure Management ReportPatient has a history of ventricular tachycardia. According to this report,patient has not had VT/VF. There is not evidence of AT/AF. In regards toOptivol, patient has not crossed fluid threshold. Average ventricular responseat night is 70.Low [place] document or parts of this document, were dictated using [employer]. A reasonable attempt at proofreading has been [...] co mpleted Patient has never smoked [facility] ([facility]) Alcohol Use Details 02/20/2020 12:00:00 AM EDT completed wine 1 drink rarely [facility] ([facility]) 02/20/2020 12:00:00 AM EDT Never smoked tobacco comple alexys Never smoked tobacco [facility] ([facility]) Alcohol intake 01/15/2020 12:00:00 AM EDT Current non-d crystal of alcohol (finding) completed Current non-drinker of alcohol (finding) [facility] Tobacco use and exposure 01/15/2020 12:00:00 AM EDT Never used co mpleted Never used [facility] Smoking 01/15/2020 12:00:00 AM EDT Never smoker completed Never s [facility] Caffeine Use Details 07/12/2019 12:00:00 AM EST soda, 8 oz completed soda, 8 oz [facility] ([facility]) Vital Signs ID Date Data Source UNK Name Value Range Interpretation Code Description Data Source(s) [place] body weight 120 [lb_av] 120 [lb_av] [facility] ([facility]) Oxygen saturation in Arterial blood by Pulse oximetry 93 % 93 % [facility] ([facility]) Body temperature 99.2 [degF] 99.2 [degF] [facility] Respiratory rate 18 /min 18 /min [facility] Heart rate 112 /min 112 /min [facility] ([facility]) Body height 64 [in_i] 64 [in_i] [facility] ([facility]) 5'4" Diastolic blood pressure 78 mm[Hg] 78 mm[Hg] [facility] ([facility]) Systolic blood pressure 128 mm[Hg] 128 mm[Hg] M [facility] ([facility]) [place] body weight 120 [lb_av] 120 [lb_av] MED[facility] ([facility]) Oxygen saturation in Arterial blood by Pulse oximetry 97 % 97 % [facility] ([facility]) Body temperature 99.4 [degF] 99.4 [degF] [facility] Respiratory rate 18 /min 18 /min [facility] ( [facility]) Heart rate 121 /min 121 /min [facility] ([facility]) Body mass index (BMI) [Ratio] 32.4 kg/m2 32.4 k g/m2 [facility] Body weight 189.00 [lb_av] 189.00 [lb_av] [facility] T ([facility]) Body height 64 [in_i] 64 [in_i] [facility] ([facility]) 5'4" Diastolic blood pressure 84 mm[Hg] 84 mm[Hg] [facility] ([facility]) Systolic blood pressure 140 mm[Hg] 140 mm[Hg] [facility] [place] body weight 120 [lb_av] 120 [lb_av] MED[facility] T ([facility]) Oxygen saturation in Arterial blood by Pulse oximetry 99 % 99 % [facility] ([facility]) Body temperature 98.6 [degF] 98.6 [degF] [facility] ([facility]) Respiratory rate 20 /min 20 /min [facility] Heart rate 112 /min 112 /min [facility] ([facility]) Body height 64 [in_i] 64 [in_i] [facility] ([facility]) 5'4" Diastolic blood pressure 88 mm[Hg] 88 mm[Hg] [facility] ([facility]) Systolic blood pressure 132 mm[Hg] 132 mm[Hg] M EDENT ([facility]) [place] body weight 120 [lb_av] 120 [lb_av] [facility] T ([facility]) Oxygen saturation in Arterial blood by Pulse oximetry 98 % 98 % [facility] ([facility]) Body temperature 98.9 [degF] 98.9 [degF] [facility] Respiratory rate 18 /min 18 /min [facility] ( [facility]) Heart rate 96 /min 96 /min [facility] ([facility]) Body mass index (BMI) [Ratio] 34.8 kg/m2 34.8 k g/m2 [facility] ([facility]) Body weight 202.50 [lb_av] 202.50 [lb_av] [facility] ([facility]) Body height 64 [in_i] 64 [in_i] [facility] ([facility]) 5'4" Diastolic blood pressure 76 mm[Hg] 76 mm[Hg] [facility]) Systolic blood pressure 132 mm[Hg] 132 mm[Hg] M EDENT ([facility]) Body mass index (BMI) [Ratio] 34.33 kg/m2 Overweight 34.33 kg/m2 [facility] ([facility]) Diastolic blood pressure 72 mm[Hg] 72 mm[Hg] [facility] ([facility]) Systolic blood pressure 104 mm[Hg] 104 mm[Hg] N [facility] ([facility]) Body weight 90.718 kg 90.718 kg [facility] ([facility] Body height 162.56 cm 162.56 cm [facility] ([facility]) Respiratory rate 20 /min 20 /min [facility] ( [facility]) Heart rate 59 /min 59 /min [facility] ([facility]) Body mass index (BMI) [Ratio] 34.5 kg/m2 34.5 k g/m2 [facility] ([facility]) Body weight 201.12 [lb_av] 201.12 [lb_av] [facility] T ([facility]) Body height 64 [in_i] 64 [in_i] [facility] ([facility]) 5'4" Diastolic blood pressure 80 mm[Hg] 80 mm[Hg] [facility] ([facility]) Systolic blood pressure 137 mm[Hg] 137 mm[Hg] M EDENT ([facility]) [place] body weight 120 [lb_av] 120 [lb_av] [facility] ([facility]) Oxygen saturation in Arterial blood by Pulse oximetry 100 % 100 % [facility] Body temperature 98.3 [degF] 98.3 [degF] [facility]) Body mass index (BMI) [Ratio] 34.84 kg/m2 Overweight 34.84 kg/m2 [facility] ([facility]) Diastolic blood pressure 80 mm[Hg] 80 mm[Hg] [facility] ([facility]) Systolic blood pressure 142 mm[Hg] 142 mm[Hg] N [facility] ([facility]) Body weight 92.079 kg 92.079 kg [facility] Body height 162.56 cm 162.56 cm [facility] ([facility]) Oxygen saturation in Arterial blood by Pulse oximetry 92 % 92 % [facility]) Body temperature 99.0 [degF] 99.0 [degF] [facility] ([facility]) Respiratory rate 20 /min 20 /min [facility]) Heart rate 102 /min 102 /min [facility] ([facility]) Body mass index (BMI) [Ratio] 33.0 kg/m2 33.0 k g/m2 [facility] ([facility]) Body weight 192.38 [lb_av] 192.38 [lb_av] MED[facility] ([facility]) Body height 64 [in_i] 64 [in_i] [facility] ([facility]) 5'4" Diastolic blood pressure 78 mm[Hg] 78 mm[Hg] [facility] ([facility]) Systolic blood pressure 134 mm[Hg] 134 mm[Hg] M EDENT ([facility]) Body height 64 [in_i] 64 [in_i] JAIRO ([facility]) Body height 64 [in_i] 64 [in_i] JAIR[facility] ([facility]) Body height 64 [in_i] 64 [in_i] JAIRO ([facility]) Body height 64 [in_i] 64 [in_i] JAIRO ([facility]) Body height 64 [in_i] 64 [in_i] JAIRO ([facility]) Body mass index (BMI) [Ratio] 31.41 kg/m2 Overweight 31.41 kg/m2 [facility] ([facility]) Diastolic blood pressure 74 mm[Hg] 74 mm[Hg] [facility] ([facility]) Systolic blood pressure 128 mm[Hg] 128 mm[Hg] N [facility] ([facility]) Body weight 83.007 kg 83.007 kg [facility] ([facility]) Body height 162.56 cm 162.56 cm [facility] ([facility]) Oxygen saturation in Arterial blood by Pulse oximetry 97 % 97 % [facility]) Body temperature 98.9 [degF] 98.9 [degF] [facility]) Respiratory rate 18 /min 18 /min [facility] ( [facility]) Heart rate 76 /min 76 /min [facility] ([facility]) Body mass index (BMI) [Ratio] 31.4 kg/m2 31.4 k g/m2 [facility] ([facility]) Body weight 183.00 [lb_av] 183.00 [lb_av] MED[facility] T ([facility]) Body height 64 [in_i] 64 [in_i] [facility] ([facility]) 5'4" Diastolic blood pressure 84 mm[Hg] 84 mm[Hg] [facility] ([facility]) Systolic blood pressure 128 mm[Hg] 128 mm[Hg] M EDENT ([facility]) Systolic blood pressure 129 mm[Hg] 129 mm[Hg] A THENA ([facility]) Body height 64 [in_i] 64 [in_i] JAIRO ([facility]) Diastolic blood pressure 81 mm[Hg] 81 mm[Hg] JAIRO ([facility]) Systolic blood pressure 129 mm[Hg] 129 mm[Hg] A THENA ([facility]) Body height 64 [in_i] 64 [in_i] JAIRO ([facility]) Diastolic blood pressure 81 mm[Hg] 81 mm[Hg] JAIRO ([facility]) Systolic blood pressure 129 mm[Hg] 129 mm[Hg] A THENA ([facility]) Body height 64 [in_i] 64 [in_i] JAIRO ([facility]) Diastolic blood pressure 81 mm[Hg] 81 mm[Hg] JAIRO ([facility]) Systolic blood pressure 129 mm[Hg] 129 mm[Hg] A THENA ([facility]) Body height 64 [in_i] 64 [in_i] JAIRO ([facility]) Diastolic blood pressure 81 mm[Hg] 81 mm[Hg] JAIRO ([facility]) Systolic blood pressure 129 mm[Hg] 129 mm[Hg] A THENA ([facility]) Body height 64 [in_i] 64 [in_i] JAIRO ([facility]) Diastolic blood pressure 81 mm[Hg] 81 mm[Hg] JAIRO ([facility]) Systolic blood pressure 129 mm[Hg] 129 mm[Hg] A THENA ([facility]) Body height 64 [in_i] 64 [in_i] JAIRO ([facility]) Diastolic blood pressure 81 mm[Hg] 81 mm[Hg] JAIRO ([facility]) Systolic blood pressure 129 mm[Hg] 129 mm[Hg] A THENA ([facility]) Body height 64 [in_i] 64 [in_i] JAIRO ([facility]) Diastolic blood pressure 81 mm[Hg] 81 mm[Hg] JAIRO ([facility]) Systolic blood pressure 129 mm[Hg] 129 mm[Hg] A THENA ([facility]) Body height 64 [in_i] 64 [in_i] JAIRO ([facility]) Diastolic blood pressure 81 mm[Hg] 81 mm[Hg] JAIRO ([facility]) Body mass index (BMI) [Ratio] 30.21 kg/m2 Overweight 30.21 kg/m2 [facility] ([facility]) Diastolic blood pressure 58 mm[Hg] 58 mm[Hg] [facility] ([facility]) Systolic blood pressure 98 mm[Hg] 98 mm[Hg] N [facility] ([facility]) Body weight 79.832 kg 79.832 kg [facility] ([facility]) Body height 162.56 cm 162.56 cm [facility] ([facility]) Oxygen saturation in Arterial blood by Pulse oximetry 99 % 99 % [facility] ([facility]) Body temperature 99.1 [degF] 99.1 [degF] [facility] ([facility]) Respiratory rate 18 /min 18 /min [facility] ( [facility]) Heart rate 65 /min 65 /min [facility] ([facility]) Body mass index (BMI) [Ratio] 30.7 kg/m2 30.7 k g/m2 [facility] ([facility]) Body weight 179.12 [lb_av] 179.12 [lb_av] MED[facility] T ([facility]) Body height 64 [in_i] 64 [in_i] [facility] ([facility]) 5'4" Diastolic blood pressure 84 mm[Hg] 84 mm[Hg] [facility] ([facility]) Systolic blood pressure 128 mm[Hg] 128 mm[Hg] M EDENT ([facility]) Systolic blood pressure 140 mm[Hg] 140 mm[Hg] A THENA ([facility]) Body height 64 [in_i] 64 [in_i] JAIRO ([facility]) Diastolic blood pressure 80 mm[Hg] 80 mm[Hg] JAIRO ([facility]) Systolic blood pressure 140 mm[Hg] 140 mm[Hg] A THENA ([facility]) Body height 64 [in_i] 64 [in_i] JAIRO ([facility]) Diastolic blood pressure 80 mm[Hg] 80 mm[Hg] JAIRO ([facility]) Body height 64 [in_i] 64 [in_i] JAIRO ([facility]) Diastolic blood pressure 80 mm[Hg] 80 mm[Hg] JAIRO ([facility]) Systolic blood pressure 140 mm[Hg] 140 mm[Hg] A THENA ([facility]) Body height 64 [in_i] 64 [in_i] JAIRO ([facility]) Diastolic blood pressure 80 mm[Hg] 80 mm[Hg] JAIRO ([facility]) Systolic blood pressure 140 mm[Hg] 140 mm[Hg] A THENA ([facility]) Body height 64 [in_i] 64 [in_i] JAIRO ([facility]) Diastolic blood pressure 80 mm[Hg] 80 mm[Hg] JAIRO ([facility]) Systolic blood pressure 140 mm[Hg] 140 mm[Hg] A THENA ([facility]) Systolic blood pressure 140 mm[Hg] 140 mm[Hg] A THENA ([facility]) Body height 64 [in_i] 64 [in_i] JAIRO ([facility]) Diastolic blood pressure 80 mm[Hg] 80 mm[Hg] JAIRO ([facility]) Diastolic blood pressure 80 mm[Hg] 80 mm[Hg] JAIRO ([facility]) Systolic blood pressure 140 mm[Hg] 140 mm[Hg] A THENA ([facility]) Body height 64 [in_i] 64 [in_i] JAIRO ([facility]) Diastolic blood pressure 80 mm[Hg] 80 mm[Hg] JAIRO ([facility]) Systolic blood pressure 140 mm[Hg] 140 mm[Hg] A THENA ([facility]) Body height 64 [in_i] 64 [in_i] JAIRO ([facility]) Systolic blood pressure 140 mm[Hg] 140 mm[Hg] A THENA ([facility]) Body height 64 [in_i] 64 [in_i] JAIRO ([facility]) Diastolic blood pressure 80 mm[Hg] 80 mm[Hg] JAIRO ([facility]) Patient Treatment Plan of Care Planned Activity Planned Date Details Description Data Source (s) Orencia ClickJect 125 mg/mL subcutaneous auto-injector 06/11/2020 12:00:00 AM EST [facility] ([facility]) Methotrexate 2.5 MG Oral Tablet 05/22/2020 [...] auto-injector 04/23/2020 12:00:00 AM EST [facility] ([facility]) Prednisone 5 MG Oral Tablet 02/28/2020 12:00:00 AM EDT [facility] ([facility]) cevimeline 30 MG Oral Capsule 02/24/2020 12:00:00 AM EDT [facility] ([facility]) Cyclobenzaprine hydrochloride 10 MG Oral Tablet 02/20/2020 12:00:00 AM EDT [facility] ([facility]) 0.9 ML tocilizumab 180 MG/ML Prefilled Syringe [Actemr a] 02/20/2020 12:00:00 AM EDT [facility] ([facility]) Leucovorin 5 MG Oral Tablet 02/20/2020 [...] a] 06/14/2019 12:00:00 AM EST [facility] ([facility]) Leucovorin 5 MG Oral Tablet 06/06/2019 12:00:00 AM EST [facility] ([facility]) gabapentin 300 MG Oral Capsule 05/11/2019 12:00:00 AM EST [facility] ([facility]) Nystatin [id number] UNT/ML Oral Suspension 04/05/2019 12:00:00 AM EST [...] 01/04/2019 12:00:00 AM EDT JAIRO ([facility]) Oxycodone Hydrochloride 5 MG Oral Tablet 01/04/2019 12:00:00 AM EDT JAIRO ([facility]) Oxycodone Hydrochloride 5 MG Oral Tablet 01/04/2019 12:00:00 AM EDT JAIRO ([facility]) Oxycodone Hydrochloride 5 MG Oral Tablet 01/04/2019 12:00:00 AM EDT JAIRO ([facility]) Oxycodone Hydrochloride 5 MG Oral Tablet 01/04/2019 12:00:00 AM EDT JAIRO ([facility]) Oxycodone Hydrochloride 5 MG Oral Tablet 01/04/2019 12:00:00 AM EDT JAIRO ([facility]) Oxycodone Hydrochloride 5 MG Oral Tablet 01/04/2019 12:00:00 AM EDT JAIRO ([facility]) Oxycodone Hydrochloride 5 MG Oral Tablet 01/04/2019 12:00:00 AM EDT JAIRO ([facility]) 0.9 ML tocilizumab 180 MG/ML Prefilled Syringe [Actemr a] 12/09/2018 12:00:00 AM EDT [facility] ([facility]) rifaximin 550 MG Oral Tablet [XIFAXAN] JAIRO ([facility]) Sulfamethoxazole 800 MG / Trimethoprim 160 MG Oral Tablet [facility] ([facility]) Prednisone 20 MG Oral Tablet [facility] ([facility]) Prednisone 10 MG Oral Tablet [facility] ([facility]) Metformin hydrochloride 1000 MG Oral Tablet [facility] ([facility]) gabapentin 300 MG Oral Capsule JA[facility] ([facility]) Doxycycline Monohydrate 100 MG Oral Tablet [facility] ([facility]) Dicyclomine Hydrochloride 20 MG Oral Tablet [facility] ([facility]) Dicyclomine Hydrochloride 10 MG Oral Capsule JAIR[facility] ([facility]) Diclofenac Sodium 75 MG Delayed Release Oral Tablet [facility] ([facility]) Diclofenac Sodium 25 MG Delayed Release Oral Tablet [facility] ([facility]) Cyclobenzaprine hydrochloride 10 MG Oral Tablet [facility] ([facility]) Clindamycin 300 MG Oral Capsule [facility] ([facility]) Cefuroxime 500 MG Oral Tablet [facility] ([facility]) Carisoprodol 350 MG Oral Tablet [facility] ([facility]) Amitriptyline Hydrochloride 25 MG Oral Tablet [facility] ([facility]) Actemra 1 injection every week JAIR[facility] ([facility]) Prednisone 20 MG Oral Tablet [facility] ([facility]) gabapentin 300 MG Oral Capsule JAIR[facility] ([facility]) Doxycycline Monohydrate 100 MG Oral Tablet [facility] ([facility]) Prednisone 20 MG Oral Tablet [facility] ([facility]) gabapentin 300 MG Oral Capsule JAIR[facility] ([facility]) Doxycycline Monohydrate 100 MG Oral Tablet JA[facility] ([facility]) Prednisone 20 MG Oral Tablet [facility] ([facility]) gabapentin 300 MG Oral Capsule JAIR[facility] ([facility]) Doxycycline Monohydrate 100 MG Oral Tablet [facility] ([facility]) Prednisone 20 MG Oral Tablet JA[facility] ([facility]) gabapentin 300 MG Oral Capsule JAIR[facility] ([facility]) Doxycycline Monohydrate 100 MG Oral Tablet [facility] ([facility]) Prednisone 5 MG Oral Tablet [facility] ([facility]) Prednisone 20 MG Oral Tablet JA[facility] ([facility]) gabapentin 300 MG Oral Capsule JAIR[facility] ([facility]) Fluzone Quad (PF) 60 mcg (15 mcg x 4)/0.5 mL IM syringe JAIRO ([facility]) Doxycycline Monohydrate 100 MG Oral Tablet JAIR[facility] ([facility]) Prednisone 5 MG Oral Tablet [facility] ([facility]) Prednisone 20 MG Oral Tablet [facility] ([facility]) gabapentin 300 MG Oral Capsule JAIR[facility] ([facility]) Fluzone Quad (PF) 60 mcg (15 mcg x 4)/0.5 mL IM syringe JAIRO ([facility]) Doxycycline Monohydrate 100 MG Oral Tablet [facility] ([facility]) Prednisone 5 MG Oral Tablet [facility] ([facility]) Prednisone 20 MG Oral Tablet [facility] ([facility]) Potassium Chloride 10 MEQ Extended Release Oral Tablet [facility] ([facility]) gabapentin 300 MG Oral Capsule JAIR[facility] ([facility]) Fluzone Quad (PF) 60 mcg (15 mcg x 4)/0.5 mL IM syringe JAIRO ([facility]) Doxycycline Monohydrate 100 MG Oral Tablet JAIRO ([facility]) Hydrochlorothiazide 12.5 MG Oral Tablet [facility] ([facility]) 24 HR venlafaxine 150 MG Extended Release Oral Capsule [Effexor] [facility] ([facility]) Colesevelam hydrochloride 625 MG Oral Tablet [facility] ([facility])
--- NOTE | 2020-07-11 23:57 | HPEPDOC ---
General Date of Admission Jul 11, 2020 at 23:33 Date of Service: Jul 11, 2020 Chief Complaint The patient is a 55-year-old female admitted with a reason for visit of Pyelonephritis,Sepsis. Source: Patient Exam Limitations: No limitations Timing/Duration: Week(s) Severity: Mild, Moderate Associated Symptoms: Fever, Chills, Loss of appetite History of Present Illness Patient is a 55 yo female with hx of UTI in 2016 presented to [facility] due to fever and chills which started last night as well as intermittent inability to urinate starting 3 weeks ago. She also reported associated left sided flank pain and dysuria. Left flank pain is a 6/10 constant ache. Denies nausea, vomiting, suprapubic tenderness, urgency, or frequency. Reported urinary hesitancy. She reported her urine looks dirty but denies blood in her urine. Reported chronic diarrhea related to her IBS, but her diarrhea seems to be more severe than usual; denies blood in stool. Denies hx of kidney stone. Patient reported that she had a bad UTI around [place] and she received Rocephin and PO antibiotics which improved her symptoms at that time. Home Medications Scheduled Abatacept (Orencia) 125 Mg/1 Ml Syringe, 125 MG SC QWEEK, (Reported) SUNDAYS Amitriptyline HCl (Amitriptyline HCl) 50 Mg Tablet, 50 MG PO QHS, (Reported) Atorvastatin Calcium (Atorvastatin Calcium) 40 Mg Tablet, 40 MG PO QHS, (Reported) Cevimeline HCl (Cevimeline HCl) 30 Mg Capsule, 30 MG PO TID, (Reported) Eluxadoline (Viberzi) 75 Mg Tablet, 75 MG PO QHS, (Reported) Hydrochlorothiazide (Hydrochlorothiazide) 25 Mg Tablet, 25 MG PO DAILY, (Reported) Hyoscyamine Sulfate (Hyoscyamine Sulfate ER) 0.375 Mg Tab.er.12h, 0.375 MG PO BID, (Reported) Leucovorin Calcium (Leucovorin Calcium) 5 Mg Tablet, 5 MG PO QWEEK, (Reported) THURSDAYS Losartan Potassium (Losartan Potassium) 100 Mg Tablet, 100 MG PO DAILY, (Reported) Methotrexate Sodium (Methotrexate) 2.5 Mg Tablet, 20 MG PO QWEEK, (Reported) THURSDAY EVENING Metoprolol Tartrate (Metoprolol Tartrate) 25 Mg Tablet, 25 MG PO BID, (Reported) Multivitamins (Thera M Plus Tablet) 1 Each Tablet, 1 TAB PO DAILY, (Reported) Ever[place]-3 Fatty Acids/Fish Oil (Fish Oil 1,000 mg Capsule) 1 Each Capsule, 1,000 MG PO BID, (Reported) Prednisone (Prednisone) 5 Mg Tablet, 5 MG PO BID, (Reported) Semaglutide (Ozempic) 0.25 Mg/0.2 Ml Pen.injctr, 0.5 MG SC QWEEK, (Reported) SUNDAYS Spironolactone (Spironolactone) 25 Mg Tablet, 25 MG PO DAILY, (Reported) Venlafaxine HCl (Venlafaxine HCl ER) 75 Mg Cap.er.24h, 75 MG PO DAILY, (Reported) Venlafaxine HCl (Venlafaxine HCl ER) 150 Mg Cap.er.24h, 150 MG PO DAILY, (Reported) Scheduled PRN Clonazepam (Clonazepam) 2 Mg Tablet, 2 MG PO QHS PRN for SLEEP, (Reported) Clonazepam (Clonazepam) 1 Mg Tab.rapdis, 1 MG PO BID PRN for ANXIETY, (Reported) Cyclobenzaprine HCl (Cyclobenzaprine HCl) 10 Mg Tablet, 10 MG PO TID PRN for MUSCLE SPASMS, (Reported) Dicyclomine HCl (Dicyclomine HCl) 10 Mg Capsule, 10 MG PO TID PRN for ABDOMINAL PAIN, (Reported) Diphenoxylate HCl/Atropine (Lomotil 2.5-0.025 mg Tablet) 1 Each Tablet, 1 TAB PO TID PRN for DIARRHEA, (Reported) Hydrocodone/Acetaminophen (Hydrocodone-Acetamin 7.5-325) 1 Each Tablet, 1 TAB PO Q8H PRN for PAIN, (Reported) Nystatin (Nystatin) 15 Gm Cream..g., 1 APLCT TOP BID PRN for RASH/ITCHING, (Reported) APPLY TO ABDOMINAL FOLDS Allergies Coded Allergies: bee venom protein (honey bee) (Verified Allergy, Severe, PALPITATIONS, SWELLING, DYSPNEA, 09/01/18) amoxicillin (Verified Allergy, Intermediate, rash, 07/11/20) erythromycin base (Verified Allergy, Unknown, 09/01/18) Past Medical History Medical History HTN Rheumatoid arthritis IBS Sjogrens UTI(Klebsiella) Ovarian cysts Surgical History May 1975 T&A Jun 1980 Ovarian cyst Jul 1985 Ovarian cyst Jan 1987, Mar 1988, October 1989, Mar 1997 Child July 1989 herniated disc Jun 1998 TVH November 1998 B/l breast reduction October 2002 IVT Jul 2004 Spinal fusion L5-S1 Jun 2005 Repair spinal fusion L5-S1 Apr 2008 Gastric bypass 2013 Trial Dorsal column stimulator Dec 2016 repair to right knee torn meniscus Jul 2017 Repair right torn rotator cuff August 2018 V. tach 230, cardiovertedX1\2, transferred to [facility] had heart cath, all normal. ICD implanted 08/2018 Family History Father: lung CA, Alzheimer's dementia, hyperlipidemia, smoking history Mother: CKD Social History * Smoker: Denies Alcohol: Denies Drugs: denies A-FIB/CHADSVASC A-FIB History Current/History of A-Fib/PAF?: No Review of Systems Constitutional: Reports: Chills, Fever Eyes: Denies: Vision change ENT: Denies: Dysphagia, Sore Throat Skin: Denies: Rash Pulmonary: Reports: Cough Cardiovascular: Denies: Chest Pain, Palpitations Gastrointestinal: Reports: Abdominal Pain, Diarrhea; Denies: Nausea, Vomiting, Constipation, Hematochezia Genitourinary: Reports: Dysuria, Retention; Denies: Frequency, Incontinence, Hematuria Musculoskeletal: Reports: Back Pain Neurological: Denies: Confusion Psych: Reports: Mood Normal Physical Examination General Exam: Positive: Alert, Mild Distress, Moderate Distress Eye Exam: Positive: Conjunctiva & lids normal ENT Exam: Positive: Atraumatic, Mucous membr. moist/pink Neck Exam: Positive: Supple Chest Exam: Positive: Clear to auscultation, Normal air movement; Negative: Rales, Rhonchi, Wheezing Heart Exam: Positive: Tachycardic, Regular Rhythm Abdomen Exam: Positive: Normal bowel sounds, Soft, Tenderness (diffuse) Extremity Exam: Negative: Cyanosis Skin Exam: Positive: Other skin issue (warm/elevated temperature) Neuro Exam: Positive: Normal Speech, Normal Tone Psych Exam: Positive: Mental status NL, Anxiety, Memory Intact Vital Signs Vital Signs Date Time Temp Pulse Resp B/P (MAP) Pulse Ox O2 Delivery O2 Flow Rate FiO2 07/11/20 22:41 18 Room Air 07/11/20 22:06 103.2 124 138/80 (99) 95 Laboratory Data Labs 24H Laboratory Tests 2 07/11/20 18:11: Urine Color YELLOW, Urine Appearance HAZY, Urine pH 6.0, Urine Specific [place] 1.011, Urine Protein 1+H, Urine Glucose (UA) NEGATIVE, Urine Ketones TRACEH, Urine Blood 2+H, Urine Nitrite POSITIVEH, Urine Bilirubin NEGATIVE, Urine Urobilinogen 0.2, Urine Leukocyte Esterase 3+H, Urine WBC (Auto) 102H, Urine RBC (Auto) 13H, Urine Hyaline Casts (Auto) 0, Urine Bacteria (Auto) 1+H, Urine Squamous Epithelial Cells 1, Urine Sperm (Auto) 07/11/20 19:40: Immature Granulocyte % (Auto) 0.8, Neutrophils (%) (Auto) 88.6H, Lymphocytes (%) (Auto) 6.7L, Monocytes (%) (Auto) 3.6, Eosinophils (%) (Auto) 0.0, Basophils (%) (Auto) 0.3, Neutrophils # (Auto) 19.6H, Lymphocytes # (Auto) 1.5, Monocytes # (Auto) 0.8, Eosinophils # (Auto) 0.0, Basophils # (Auto) 0.1, Nucleated Red Blood Cells % (auto) 0.0, Lactic Acid Level 1.9 07/11/20 20:04: Total Bilirubin 1.0, Direct Bilirubin 0.2, Aspartate Amino Transf (AST/SGOT) 26, Alanine Aminotransferase (ALT/SGPT) 25, Alkaline Phosphatase 57, Total Protein 6.7, Albumin 3.3, Albumin/Globulin Ratio 1.0L, Lipase 24L 07/11/20 20:38: Coronavirus (COVID-19)(PCR) NEGATIVE, Influenza Type A (RT-PCR) NEGATIVE, Influenza Type B (RT-PCR) NEGATIVE, Respiratory Syncytial Virus (PCR) NEGATIVE CBC/BMP Laboratory Tests 07/11/20 19:40 Microbiology Microbiology 07/11/20 Blood Culture, Received Pending 07/11/20 Blood Culture, Received Pending 07/11/20 Urine Culture, Received Pending Assessment/Plan 1. Sepsis 07/03 left sided pyelonephritis -4/4 SIRS criteria with UA indicating UTI. IV levaquin. -I&O, BMP, tylenol/zofran/pain control PRN, vital signs -patient reported urinary retention, will place soares catheter -S/p 30mL/kg NS bolus from ER, BP currently stable -Patient also reported cough, will order CXR 2. Acute kidney injury -2/2 to sepsis -Baseline creatinine 0.78. On admission 1.21 -IVF 3. Hypertension -Given patient's sepsis condition. Will hold patient's home anti-HTN medications -May resume anti-HTN medications if BP elevated 4. IBS -Cont home Hyoscyamine, bentyl, and Lomotil. -Other home IBS medication not available in-house. May consider use home med 5. Depression/anxiety. -Cont home med Venlafaxine, Amitriptyline, and Clonazepam 6. Abnormal CT finding -CT abd/pelvis suggest a shift in anastomosis of stomach and small bowel. Recommending CT follow through with oral contrast DVT prophylaxis: lovenox, SCD, TEDS Plan / VTE VTE Prophylaxis Ordered?: Yes GME ATTESTATION My faculty preceptor for this patient encounter was physically present during the encounter and was fully available. All aspects of the patient interview, examination, medical decision making process, and medical care plan development were reviewed and approved by the faculty preceptor. The faculty preceptor is aware and concurs with the plan as stated in the body of this note and will attest to such by his/her cosignature. ATTENDING NOTE I, Joseph Underwood DO, performed a history and physical examination of the patient and discussed her management with the resident, Portillo Ellington DO. I reviewed the resident's note and agree with the documented findings and plan of care PORTILLO ELLINGTON DO Jul 11, 2020 23:57 JOSEPH UNDERWOOD DO Jul 12, 2020 04:54
[2020-07-12] VITALS (7 sets, daily range): BP systolic 93–124; BP diastolic 52–57
--- NOTE | 2020-07-12 00:14 | REPVR ---
PROCEDURE INFORMATION: Exam: XR Chest, 1 View Exam date and time: 07/11/2020 11:43 PM Age: 55 years old Clinical indication: Other: Cough; Additional info: Cough, fever TECHNIQUE: Imaging protocol: XR of the chest Views: 1 view. COMPARISON: CR PORTABLE CHEST X-RAY 01/19/2020 11:15 AM FINDINGS: Tubes, catheters and devices: Left chest AICD. Lungs: Unremarkable. No consolidation. Pleural spaces: Unremarkable. No pleural effusion. No pneumothorax. Heart/Mediastinum: Unremarkable. No cardiomegaly. Bones/joints: Status post right shoulder arthroplasty. IMPRESSION: No acute cardiopulmonary pathology. Electronically signed by: Brent Carrillo On 07/12/2020 00:14:49 AM
[2020-07-12] MEDS: predniSONE 5 MG TAB PO SCH ×3 (02:45→22:07)
[2020-07-12] MEDS: ATORVASTATIN 20 MG TAB PO SCH ×2 (02:45→22:06)
[2020-07-12] MEDS: AMITRIPTYLINE 50 MG TAB PO SCH ×2 (03:34→22:07)
[2020-07-12] MEDS ORDERED: NS 500 ML IV SCH (03:45)
[2020-07-12] MEDS ORDERED: POTASSIUM CHLORIDE 10 MEQ SR TABLET PO ONE (04:00)
[2020-07-12] MEDS: ACETAMINOPHEN TAB 650MG DOSE (2X325MG) PO PRN ×2 (04:33→16:20)
[2020-07-12 06:40] LABS: BLOOD UREA NITROGEN 13 MG/DL (7-18); CALCIUM LEVEL 7.7 MG/DL (8.5-10.1); CARBON DIOXIDE LEVEL 23 MEQ/L (21-32); CHLORIDE LEVEL 109 MEQ/L (98-107); CREATININE FOR GFR 0.95 MG/DL (0.55-1.30); GLOMERULAR FILTRATION RATE > 60.0 (>51); GLUCOSE, FASTING 147 MG/DL (70-100); MAGNESIUM LEVEL 1.3 MG/DL (1.8-2.4); PHOSPHORUS LEVEL 2.8 MG/DL (2.5-4.9); POTASSIUM SERUM 3.3 MEQ/L (3.5-5.1); SODIUM LEVEL 141 MEQ/L (136-145)
[2020-07-12 06:41] LABS: HEMATOCRIT 35.9 % (36.0-47.0); HEMOGLOBIN 11.9 g/dl (12.0-15.5); MEAN CORPUSCULAR HGB CONC 33.1 g/dl (32.0-36.5); MEAN CORPUSCULAR VOLUME 93.5 fl (80.0-96.0); PLATELET COUNT, AUTOMATED 158 10^3/uL (150-450); RED BLOOD COUNT 3.84 10^6/uL (4.00-5.40); WHITE BLOOD COUNT 21.4 10^3/uL (4.0-10.0)
[2020-07-12 07:32] LABS: LYMPHOCYTES 2 % (16-44); MONOCYTES 1 % (0-5); NEUTROPHILS 94 % (28-66); PLATELET ESTIMATE NORMAL (NORMAL)
--- NOTE | 2020-07-12 07:51 | IPNPDOC ---
Text Note Date of Service The patient was seen on 07/12/20. NOTE Subjective: Patient was seen and examined this morning at bedside. Patient says she's feeling little bit better than at time of admission. Still feeling weak and tired. Still complaining of left flank pain. Denies any shortness of breath or chest pain. Denies any abdominal pain. There is no acute overnight event since time of admission. Says that her fever and chills are better now. She has a Mao in place and her urine output has been better. Objective: Constitutional: Awake and alert, in some mild distress appears weak ENT: Sclera are clear Respiratory: Lungs CTA bilaterally. No respiratory distress. No use of accessory muscles. Cardiovascular: RRR S1 and S2 are normal, no murmur Gastrointestinal: Abdomen is soft, non distended, non tender, BS present. Musculoskeletal: No peripheral edema. Left CVA tenderness. Neurologic: No focal neurological deficit. Mental Status: A&O x3, normal affect Skin: Warm, dry Assessment/plan: 55-year-old female presents to the hospital due to fever and chills found to have sepsis suspected to be secondary to pyelonephritis admitted to the medical unit for medical management. # Sepsis secondary to pyelonephritis with bacteremia: Left CVA tenderness. Confirmed on CT abdomen. Prelim blood culture results are positive for gram- negative rods likely E coli. Urine culture pending. Currently on IV levofloxacin. Continue IV fluids. Lactate 1.9 at time of admission. # NAYELY: This is likely secondary to sepsis with pyelonephritis and appears to have resolved with IV fluids. Avoid nephrotoxins. Monitor BMP. # Hypertension: Blood pressure currently low in the context of sepsis. Hold antihypertensives. Monitor and titrate as needed. # Hypokalemia and hypomagnesemia: Replace as needed and monitor electrolytes # IBS: Continue home medications. # Depression/anxiety: Continue home medications # Abnormal CT finding: CT abd/pelvis suggest a shift in anastomosis of stomach and small bowel. Recommending CT follow through with oral contrast # DVT prophylaxis: Lovenox A Yousef Hospitalist VS,Marcelle, I+O VS, Marcelle, I+O Laboratory Tests 07/11/20 19:40 07/11/20 20:04 07/12/20 05:30 07/12/20 06:22 Vital Signs Date Time Temp Pulse Resp B/P (MAP) Pulse Ox O2 Delivery O2 Flow Rate FiO2 07/12/20 07:13 97.3 92 20 95/55 (73) 93 Room Air I&O- Last 24 Hours up to 6 AM 07/12/20 06:00 Intake Total 2150 ml Output Total 200 ml Balance 1950 ml WES LAKE MD Jul 12, 2020 07:51
[2020-07-12] MEDS: ENOXAPARIN 40MG/0.4ML SYRINGE (J1650 PER 10MG) SC SCH (08:35)
[2020-07-12] MEDS: GASTROGRAFIN SOLUTION 30ML PO SCH ×2 (08:36→09:30)
[2020-07-12] MEDS: NS 1,000 ML IV SCH ×2 (08:36→22:04)
[2020-07-12] MEDS: HYOSCYAMINE SULFATE 0.125 MG SUBL TABLET PO SCH ×2 (08:36→22:06)
[2020-07-12] MEDS: OMEGA-3 1000MG CAPSULE PO SCH ×2 (08:37→22:06)
[2020-07-12] MEDS: MULTIVITAMINS/MINERALS THERAP 1 TAB PO SCH (08:37)
[2020-07-12] MEDS: VENLAFAXINE **XR** 75MG CAPSULE PO SCH ×2 (08:37→08:39)
[2020-07-12] MEDS ORDERED: HYOSCYAMINE SULFATE 0.125 MG SUBL TABLET PO SCH (09:00)
[2020-07-12] MEDS ORDERED: NS 1,000 ML IV ONE (10:00)
[2020-07-12] MEDS: MAG SULF 1GM/100ML (MAG RUN) 1 GM in IV 1 EA IV SCH ×3 (11:32→13:40)
[2020-07-12] MEDS: GASTROGRAFIN SOLUTION 30ML (Q9963) PO SCH ×2 (14:05→14:35)
[2020-07-12] MEDS ORDERED: PIPERACILLIN/TAZOBACTAM SOD 4.5 GM in D5W MINI-BAG PLUS 50 ML IV SCH (16:30)
--- NOTE | 2020-07-12 16:37 | REP ---
INDICATION: Possible stomach/small bowel anastomosis. COMPARISON: Comparison CT study July 11, 2020 and May 16, 2019.. TECHNIQUE: Helical scanning is acquired and 3 mm axial images are reformatted. Coronal and sagittal MPR images are generated. Oral contrast was administered. FINDINGS: Digital preliminary button inspector radiograph demonstrates air and stool in the proximal and distal colon. No small bowel dilation is seen. There is gaseous distention of a loop of of what appears to be sigmoid colon. There is a small cyst in the upper portion of the liver again noted. No other focal liver lesion is seen. Spleen is unremarkable. Normal adrenal glands are seen. Patient is status post gastric bypass. The gastrojejunostomy appears intact. The if air in loops is again noted to be anterior to the transverse colon which is a common surgical technique. It does extend in the mid abdomen similar to the most recent prior study but does not have an abnormal appearance. There is no evidence of obstruction. Contrast is seen extending through the small bowel and labeling the right colon at the time of the scan. There is no evidence of free intraperitoneal air, abnormal fluid collection or abscess. Again noted is edematous stranding adjacent to the pancreatic tail and surrounding left kidney and extending in the left pericolic gutter. There is mild increased density in the urine within the renal pelvis which may be residual contrast from the previous day's scan. The perinephric stranding and perirenal stranding may reflect pyelonephritis or conceivably pancreatitis. In any event it is essentially unchanged. Mao catheter and some air are seen in the urinary bladder. No other abnormality. IMPRESSION: Edematous inflammatory appearing stranding in the perinephric fat and the left pericolic gutter similar to the scan done July 11, 2020. Ileus pattern in the bowel gas. Question pyelonephritis. Status post gastric bypass. No pathologic abnormality noted with the gastro jejunal anastomosis. <Electronically signed by Dinesh Davison > 07/12/20 [id number]
[2020-07-12] MEDS: LIDOCAINE 5% (LIDODERM) PATCH TD SCH (17:00)
[2020-07-12] MEDS ORDERED: LevoFLOXacin IV 750 MG in IV 1 EA IV SCH (21:00)
[2020-07-12] MEDS ORDERED: LevoFLOXacin IV 500 MG in IV 1 EA IV SCH (21:00)
[2020-07-12] MEDS: LevoFLOXacin IV 750 MG in IV 1 EA IV SCH (22:05)
[2020-07-13 00:04] VITALS: BP 115/68
[2020-07-13] MEDS: **NOTE PATIENT COMMENT** MISC XX SCH (04:35)
[2020-07-13 04:48] VITALS: BP 125/68
[2020-07-13 05:35] LABS: BASO % 0.1 % (0.0-1.0); EOS % 0.1 % (0.0-3.0); HEMATOCRIT 28.8 % (36.0-47.0); LYMPH # 0.6 10^3/uL (1.5-5.0); LYMPH % 4.4 % (24.0-44.0); MEAN CORPUSCULAR HEMOGLOBIN 31.6 pg (27.0-33.0); MEAN CORPUSCULAR HGB CONC 33.7 g/dl (32.0-36.5); MEAN CORPUSCULAR VOLUME 93.8 fl (80.0-96.0); MONO # 0.5 10^3/uL (0.0-0.8); NEUTROPHILS # 11.4 10^3/uL (1.5-8.5); NEUTROPHILS % 90.6 % (36.0-66.0); PLATELET COUNT, AUTOMATED 144 10^3/uL (150-450); RED BLOOD COUNT 3.07 10^6/uL (4.00-5.40); WHITE BLOOD COUNT 12.6 10^3/uL (4.0-10.0)
[2020-07-13 05:44] LABS: HEMOGLOBIN 9.7 g/dl (12.0-15.5)
[2020-07-13 05:55] LABS: BLOOD UREA NITROGEN 18 MG/DL (7-18); CALCIUM LEVEL 7.2 MG/DL (8.5-10.1); CARBON DIOXIDE LEVEL 27 MEQ/L (21-32); CHLORIDE LEVEL 109 MEQ/L (98-107); CREATININE FOR GFR 0.89 MG/DL (0.55-1.30); GLOMERULAR FILTRATION RATE > 60.0 (>51); GLUCOSE, FASTING 200 MG/DL (70-100); POTASSIUM SERUM 3.5 MEQ/L (3.5-5.1); SODIUM LEVEL 144 MEQ/L (136-145)
[2020-07-13 07:31] VITALS: BP 136/76
[2020-07-13 07:51] LABS: MAGNESIUM LEVEL 1.7 MG/DL (1.8-2.4)
[2020-07-13] MEDS: ACETAMINOPHEN TAB 650MG DOSE (2X325MG) PO PRN ×2 (08:11→09:19)
[2020-07-13] MEDS: clonazePAM 1 MG TAB PO PRN ×2 (08:11→20:41)
[2020-07-13] MEDS: MULTIVITAMINS/MINERALS THERAP 1 TAB PO SCH (08:54)
[2020-07-13] MEDS: HYOSCYAMINE SULFATE 0.125 MG SUBL TABLET PO SCH ×2 (08:54→20:33)
[2020-07-13] MEDS: OMEGA-3 1000MG CAPSULE PO SCH ×2 (08:54→20:33)
[2020-07-13] MEDS: predniSONE 5 MG TAB PO SCH ×2 (08:54→20:33)
[2020-07-13] MEDS: VENLAFAXINE **XR** 75MG CAPSULE PO SCH ×2 (08:54→09:09)
[2020-07-13] MEDS: ENOXAPARIN 40MG/0.4ML SYRINGE (J1650 PER 10MG) SC SCH (08:55)
[2020-07-13] MEDS ORDERED: MAG SULF 1GM/100ML (MAG RUN) 1 GM in IV 1 EA IV ONE (09:00)
[2020-07-13] MEDS ORDERED: POTASSIUM CHLORIDE 10 MEQ SR TABLET PO ONE (10:45)
--- NOTE | 2020-07-13 10:46 | IPNPDOC ---
Text Note Date of Service The patient was seen on 07/13/20. NOTE Subjective: Patient was seen and examined this morning at bedside. Told me she's feeling much more comfortable than she was yesterday feel stronger and less sleepy and tired. There is no acute overnight events. Patient denies that she has back pain at her flank anymore. Patient denies any chest pain or shortness of breath. Denies abdominal pain. Has been able to eat and tolerated her diet well. He's been making good amounts of urine. Objective: Constitutional: Awake and alert, in no apparent distress this morning very comfortable compared to yesterday ENT: Sclera are clear Respiratory: Lungs CTA bilaterally. No respiratory distress. No use of accessory muscles. Cardiovascular: RRR S1 and S2 are normal, no murmur Gastrointestinal: Abdomen is soft, non distended, non tender, BS present. Musculoskeletal: No peripheral edema. Left CVA tenderness resolved today Neurologic: No focal neurological deficit. Mental Status: A&O x3, normal affect Skin: Warm, dry Assessment/plan: 55-year-old female presents to the hospital due to fever and chills found to have sepsis suspected to be secondary to pyelonephritis admitted to the medical unit for medical management. # Sepsis secondary to pyelonephritis with E coli bacteremia: Left CVA tenderness, now resolved. Confirmed on CT abdomen. Prelim blood culture results are positive for gram-negative rods likely E coli. Urine culture hobbs sensitive E Coli. Currently on IV levofloxacin. Continue IV fluids. Lactate 1.9 at time of admission. Afebrile >24hr # NAYELY: This is likely secondary to sepsis with pyelonephritis and appears to have resolved with IV fluids. Avoid nephrotoxins. Monitor BMP. # Hypertension: Blood pressure much better today. Hold antihypertensives. Monitor and titrate as needed. # Hypokalemia and hypomagnesemia: Replace as needed and monitor electrolytes # IBS: Continue home medications. # Depression/anxiety: Continue home medications # Abnormal CT finding: CT abd/pelvis suggest a shift in anastomosis of stomach and small bowel. Recommending CT follow through with oral contrast: No patholo gic abnormality noted with the gastro jejunal anastomosis. # DVT prophylaxis: Lovenox A Yousef Hospitalist VS,Marcelle, I+O VS, Marcelle, I+O Laboratory Tests 07/13/20 05:11 Vital Signs Date Time Temp Pulse Resp B/P (MAP) Pulse Ox O2 Delivery O2 Flow Rate FiO2 07/13/20 07:31 97.9 96 18 136/76 (96) 95 Room Air I&O- Last 24 Hours up to 6 AM 07/13/20 06:00 Intake Total 4640 ml Output Total 2950 ml Balance 1690 ml WES LA[place] MD Jul 13, 2020 10:46
[2020-07-13 12:00] VITALS: BP 134/73
[2020-07-13] MEDS: EXCEDRIN MIGRAINE TABLET PO PRN ×2 (12:16→20:41)
--- NOTE | 2020-07-13 13:57 | ECGEPIP ---
[facility] Test Date: 2020-07-12 Pat Name: MEG CARDOZA Department: Room: [place] [address] Gender: Female Physician General Internal Medicine: : 1965 Requested By: PORTILLO ELLINGTON Order Number: [id number] Reading MD: Goldy Adkins Measurements Intervals [place] Rate: 100 P: 58 UT: 168 QRS: 69 QRSD: 116 T: 35 QT: 370 QTc: 477 Interpretive Statements Sinus rhythm with frequent premature ventricular complexes Low voltage QRS Incomplete right bundle branch block Prolonged QTc interval when compared to tracing done 01-19-20 Electronically Signed on 07-13-2020 8:30:58 EST by Goldy Adkins
[2020-07-13 15:52] VITALS: BP 139/64
[2020-07-13] MEDS: LIDOCAINE 5% (LIDODERM) PATCH TD SCH (17:11)
[2020-07-13 20:00] VITALS: BP 128/70
[2020-07-13] MEDS: ATORVASTATIN 20 MG TAB PO SCH (20:33)
[2020-07-13] MEDS: LevoFLOXacin IV 750 MG in IV 1 EA IV SCH (20:33)
[2020-07-13] MEDS: AMITRIPTYLINE 50 MG TAB PO SCH (20:33)
[2020-07-14] VITALS: BP 133/76
[2020-07-14] MEDS: **NOTE PATIENT COMMENT** MISC XX SCH (03:21)
[2020-07-14 04:00] VITALS: BP 123/59
[2020-07-14 05:23] LABS: BASO % 0.3 % (0.0-1.0); EOS % 0.2 % (0.0-3.0); HEMATOCRIT 32.8 % (36.0-47.0); HEMOGLOBIN 10.7 g/dl (12.0-15.5); LYMPH # 0.6 10^3/uL (1.5-5.0); LYMPH % 10.8 % (24.0-44.0); MEAN CORPUSCULAR HEMOGLOBIN 31.3 pg (27.0-33.0); MEAN CORPUSCULAR HGB CONC 32.6 g/dl (32.0-36.5); MEAN CORPUSCULAR VOLUME 95.9 fl (80.0-96.0); MONO # 0.3 10^3/uL (0.0-0.8); MONO % 5.5 % (2.0-8.0); NEUTROPHILS # 4.8 10^3/uL (1.5-8.5); NEUTROPHILS % 82.3 % (36.0-66.0); PLATELET COUNT, AUTOMATED 160 10^3/uL (150-450); RED BLOOD COUNT 3.42 10^6/uL (4.00-5.40); WHITE BLOOD COUNT 5.8 10^3/uL (4.0-10.0)
[2020-07-14 05:40] LABS: BLOOD UREA NITROGEN 15 MG/DL (7-18); CALCIUM LEVEL 7.1 MG/DL (8.5-10.1); CARBON DIOXIDE LEVEL 28 MEQ/L (21-32); CHLORIDE LEVEL 111 MEQ/L (98-107); CREATININE FOR GFR 0.78 MG/DL (0.55-1.30); GLOMERULAR FILTRATION RATE > 60.0 (>51); GLUCOSE, FASTING 192 MG/DL (70-100); SODIUM LEVEL 145 MEQ/L (136-145)
[2020-07-14 08:00] VITALS: BP 146/86
[2020-07-14] MEDS: HYOSCYAMINE SULFATE 0.125 MG SUBL TABLET PO SCH (09:33)
[2020-07-14] MEDS: VENLAFAXINE **XR** 75MG CAPSULE PO SCH ×2 (09:34)
[2020-07-14] MEDS: OMEGA-3 1000MG CAPSULE PO SCH (09:34)
[2020-07-14] MEDS: predniSONE 5 MG TAB PO SCH (09:34)
[2020-07-14] MEDS: ENOXAPARIN 40MG/0.4ML SYRINGE (J1650 PER 10MG) SC SCH (09:34)
[2020-07-14] MEDS: MULTIVITAMINS/MINERALS THERAP 1 TAB PO SCH (09:34)
--- NOTE | 2020-07-14 10:49 | DS.PDOC ---
Discharge Summary General Date of Admission Jul 11, 2020 at 23:33 Date of Discharge 07/14/20 Discharge Summary PROCEDURES PERFORMED DURING STAY: [None]. ADMITTING DIAGNOSES: 1. Sepsis secondary to pyelonephritis 2. Acute kidney injury DISCHARGE DIAGNOSES: 1. Sepsis secondary to pyelonephritis with E coli bacteremia 2. acute kidney injury COMPLICATIONS/CHIEF COMPLAINT: Pyelonephritis,Sepsis. HISTORY OF PRESENT ILLNESS/ HOSPITAL COURSE: 55-year-old female presents to the hospital due to fever and chills found to have sepsis suspected to be secondary to pyelonephritis admitted to the medical unit for medical management. # Sepsis secondary to pyelonephritis with E coli bacteremia: Left CVA tenderne ss, now resolved. Confirmed on CT abdomen. blood culture results are positive E coli. Urine culture hobbs sensitive E Coli. Currently on IV levofloxacin. Lactate 1.9 at time of admission. Afebrile >48hr. Will continue treatment at discharge with PO levofloxacin. # NAYELY: This is likely secondary to sepsis with pyelonephritis and appears to have resolved with IV fluids # Hypertension: Blood pressure much better, was initially hypotensive. Hold antihypertensives. PCP to resume/titrate anti-hypertensives as appropriate. BP normal without medications at time of discharge. # Hypokalemia and hypomagnesemia: Replaced. resolved. # IBS: Continue home medications. # Depression/anxiety: Continue home medications # Abnormal CT finding: CT abd/pelvis suggest a shift in anastomosis of stomach and small bowel. Recommending CT follow through with oral contrast: No pathologic abnormality noted with the gastro jejunal anastomosis. DISCHARGE MEDICATIONS: Please see below. ALLERGIES: Please see below. PHYSICAL EXAMINATION ON DISCHARGE: Feels well and they have discharge no complaints today feeling ready to go home denies any CVA tenderness no more fevers or chills. VITAL SIGNS: Please see below. Constitutional: Awake and alert, in no apparent distress this morning very comfortable ENT: Sclera are clear Respiratory: Lungs CTA bilaterally. No respiratory distress. No use of accessory muscles. Cardiovascular: RRR S1 and S2 are normal, no murmur Gastrointestinal: Abdomen is soft, non distended, non tender, BS present. Musculoskeletal: No peripheral edema. Left CVA tenderness resolved Neurologic: No focal neurological deficit. Mental Status: A&O x3, normal affect Skin: Warm, dry LABORATORY DATA: Please see below. IMAGING: See chart PROGNOSIS: Fair ACTIVITY: [As tolerated]. DIET: Low-salt diet DISPOSITION: Home DISCHARGE INSTRUCTIONS: Please follow up with your primary care physician within 1 week from discharge. If you do not have one, please follow up with us to schedule an appointment. Please keep all of your follow up appointments. Please call central to book your appointments with hospital specialists. Please take all your medications as prescribed. Please call/come to Clinic or go to the Emergency Department if - Temp >101, intractable Nausea/Vomiting, Diarrhea, Mouth sores, Headaches, Altered mental status, Seizures, sudden onset of swelling, bleeding, shortness of breath or chest pain. ITEMS TO FOLLOWUP ON ON OUTPATIENT: 1. Follow-up with primary care physician within 5 days of discharge 2. Take antibiotics as prescribed DISCHARGE CONDITION: [Stable]. TIME SPENT ON DISCHARGE: 40 minutes. Vital Signs/I&Os Vital Signs Date Time Temp Pulse Resp B/P (MAP) Pulse Ox O2 Delivery O2 Flow Rate FiO2 07/14/20 08:00 96.6 81 18 146/86 (106) 97 Room Air I&O- Last 24 Hours up to 6 AM 07/14/20 06:00 Intake Total 1080 ml Output Total 2800 ml Balance -1720 ml Laboratory Data Labs 24H Laboratory Tests 2 07/13/20 11:26: Lab Scanned Report Miscellaneous Lab 07/14/20 05:00: Immature Granulocyte % (Auto) 0.9, Neutrophils (%) (Auto) 82.3H, Lymphocytes (%) (Auto) 10.8L, Monocytes (%) (Auto) 5.5H, Eosinophils (%) (Auto) 0.2, Basophils (%) (Auto) 0.3, Neutrophils # (Auto) 4.8, Lymphocytes # (Auto) 0.6L, Monocytes # (Auto) 0.3, Eosinophils # (Auto) 0.0, Basophils # (Auto) 0.0, Nucleated Red B lood Cells % (auto) 0.0, Anion Gap 6L, Glomerular Filtration Rate > 60.0, Calcium Level 7.1L CBC/BMP Laboratory Tests 07/14/20 05:00 Microbiology Microbiology 07/11/20 Blood Culture - Final, Complete Escherichia Coli 07/11/20 Blood Culture - Preliminary, Resulted No Growth after 48 hours. All Specime... 07/11/20 Urine Culture - Final, Complete Escherichia Coli Discharge Medications Scheduled Abatacept (Orencia) 125 Mg/1 Ml Syringe, 125 MG SC QWEEK, (Reported) SUNDAYS Amitriptyline HCl (Amitriptyline HCl) 50 Mg Tablet, 50 MG PO QHS, (Reported) Atorvastatin Calcium (Atorvastatin Calcium) 40 Mg Tablet, 40 MG PO QHS, (Reported) Cevimeline HCl (Cevimeline HCl) 30 Mg Capsule, 30 MG PO TID, (Reported) Eluxadoline (Viberzi) 75 Mg Tablet, 75 MG PO QHS, (Reported) Hydrochlorothiazide (Hydrochlorothiazide) 25 Mg Tablet, 25 MG PO DAILY, (Reported) Hyoscyamine Sulfate (Hyoscyamine Sulfate ER) 0.375 Mg Tab.er.12h, 0.375 MG PO BID, (Reported) Leucovorin Calcium (Leucovorin Calcium) 5 Mg Tablet, 5 MG PO QWEEK, (Reported) THURSDAYS Losartan Potassium (Losartan Potassium) 100 Mg Tablet, 100 MG PO DAILY, (Reported) Methotrexate Sodium (Methotrexate) 2.5 Mg Tablet, 20 MG PO QWEEK, (Reported) THURSDAY EVENINGS Metoprolol Tartrate (Metoprolol Tartrate) 25 Mg Tablet, 25 MG PO BID, (Reported) Multivitamins (Thera M Plus Tablet) 1 Each Tablet, 1 TAB PO DAILY, (Reported) [place]-3 Fatty Acids/Fish Oil (Fish Oil 1,000 mg Capsule) 1 Each Capsule, 1,000 MG PO BID, (Reported) Prednisone (Prednisone) 5 Mg Tablet, 5 MG PO BID, (Reported) Semaglutide (Ozempic) 0.25 Mg/0.2 Ml Pen.injctr, 0.5 MG SC QWEEK, (Reported) SUNDAYS Spironolactone (Spironolactone) 25 Mg Tablet, 25 MG PO DAILY, (Reported) Venlafaxine HCl (Venlafaxine HCl ER) 75 Mg Cap.er.24h, 75 MG PO DAILY, (Reported) Venlafaxine HCl (Venlafaxine HCl ER) 150 Mg Cap.er.24h, 150 MG PO DAILY, (Reported) Scheduled PRN Clonazepam (Clonazepam) 2 Mg Tablet, 2 MG PO QHS PRN for SLEEP, (Reported) Clonazepam (Clonazepam) 1 Mg Tab.rapdis, 1 MG PO BID PRN for ANXIETY, (Reported) Cyclobenzaprine HCl (Cyclobenzaprine HCl) 10 Mg Tablet, 10 MG PO TID PRN for MUS CANDIDA SPASMS, (Reported) Dicyclomine HCl (Dicyclomine HCl) 10 Mg Capsule, 10 MG PO TID PRN for ABDOMINAL PAIN, (Reported) Diphenoxylate HCl/Atropine (Lomotil 2.5-0.025 mg Tablet) 1 Each Tablet, 1 TAB PO TID PRN for DIARRHEA, (Reported) Hydrocodone/Acetaminophen (Hydrocodone-Acetamin 7.5-325) 1 Each Tablet, 1 TAB PO Q8H PRN for PAIN, (Reported) Nystatin (Nystatin) 15 Gm Cream..g., 1 APLCT TOP BID PRN for RASH/ITCHING, (Reported) APPLY TO ABDOMINAL FOLDS Allergies Coded Allergies: bee venom protein (honey bee) (Verified Allergy, Severe, PALPITATIONS, SWELLING, DYSPNEA, 09/01/18) amoxicillin (Verified Allergy, Intermediate, rash, 07/11/20) erythromycin base (Verified Allergy, Unknown, 09/01/18) WES LAKE MD Jul 14, 2020 10:49
[2020-07-14] MEDS ORDERED: LEVO750T13 PO (10:51)
[2020-07-14] MEDS: clonazePAM 1 MG TAB PO PRN (11:46)
[2020-07-14] MEDS: ACETAMINOPHEN TAB 650MG DOSE (2X325MG) PO PRN (11:46)
== END 2020-07-14 13:25 | disposition home or self-care (01) | DRG 720 ==
LOC: M ED 17:45 → M ED INP 23:33 → M PCU 07-12 02:15
PROVIDERS: ADMIT Internal Medicine; ATTEND Family Medicine
DX: A41.51 Sepsis due to Escherichia coli [E. coli] (principal); N17.9 Acute kidney failure, unspecified; E83.42 Hypomagnesemia; N10 Acute pyelonephritis; I10 Essential (primary) hypertension; E87.6 Hypokalemia; M06.9 Rheumatoid arthritis, unspecified; F41.9 Anxiety disorder, unspecified; F32.9 Major depressive disorder, single episode, unspecified; Z79.899 Other long term (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; Z79.52 Long term (current) use of systemic steroids; Z91.030 Bee allergy status; Z88.0 Allergy status to penicillin; Z95.0 Presence of cardiac pacemaker; K58.9 Irritable bowel syndrome, unspecified

== ENCOUNTER → 2020-07-23 | Outpatient (CLI) | payer BC, OTHER, MEDICARE ==
[~2020-07-23] MED LIST changes: +AMIT50TA PO; +CEVI1CAP PO; +CLON1TAB17 PO; +CLON2TAB7 PO; +DICY10CA13 PO; +HYDR-4514 PO; +HYOS0.374 PO; +LEVO750T13 PO; +LOMO2.5T PO; +METO25TA4 PO; +NYST10CR TOP; +OREN1INJ SC; +OZEM2INJ SC; +PRED5TA PO; +SPIR-10 PO; +VENL150C43 PO; +VENL75CA2 PO; +VIBE1TAB PO; +VITMTA PO
[2020-07-23 14:19] LABS: BASO # 0.1 10^3/uL (0.0-0.2); BASO % 0.9 % (0.0-1.0); EOS # 0.1 10^3/uL (0.0-0.5); HEMATOCRIT 39.2 % (36.0-47.0); HEMOGLOBIN 12.7 g/dl (12.0-15.5); LYMPH # 2.6 10^3/uL (1.5-5.0); LYMPH % 21.2 % (24.0-44.0); MEAN CORPUSCULAR HEMOGLOBIN 31.4 pg (27.0-33.0); MEAN CORPUSCULAR HGB CONC 32.4 g/dl (32.0-36.5); MEAN CORPUSCULAR VOLUME 96.8 fl (80.0-96.0); MONO # 0.7 10^3/uL (0.0-0.8); MONO % 5.7 % (2.0-8.0); NEUTROPHILS # 8.5 10^3/uL (1.5-8.5); NEUTROPHILS % 69.5 % (36.0-66.0); PLATELET COUNT, AUTOMATED 382 10^3/uL (150-450); RED BLOOD COUNT 4.05 10^6/uL (4.00-5.40); WHITE BLOOD COUNT 12.3 10^3/uL (4.0-10.0)
[2020-07-23 15:02] LABS: BLOOD UREA NITROGEN 18 MG/DL (7-18); CALCIUM LEVEL 8.6 MG/DL (8.5-10.1); CARBON DIOXIDE LEVEL 31 MEQ/L (21-32); CHLORIDE LEVEL 103 MEQ/L (98-107); CREATININE FOR GFR 0.88 MG/DL (0.55-1.30); GLOMERULAR FILTRATION RATE > 60.0 (>51); GLUCOSE, FASTING 131 MG/DL (70-100); POTASSIUM SERUM 4.2 MEQ/L (3.5-5.1); SODIUM LEVEL 140 MEQ/L (136-145)
== END ==
LOC: M PLALAB 10:53
PROVIDERS: ATTEND Family Medicine
DX: N17.9 Acute kidney failure, unspecified (principal); N10 Acute pyelonephritis

== ENCOUNTER 2020-08-07 16:55 | Emergency (ER) | payer BC, OTHER, MEDICARE ==
[~2020-08-07] VITALS: Ht 162.6 cm; Wt 89.1 kg
[2020-08-07] MEDS ORDERED: LIDOCAINE 2% 5ML JELLY UROJET TOP ONE (18:20)
[2020-08-07 18:48] LABS: APPEARANCE, URINE CLEAR (CLEAR); BACTERIA, URINE AUTO NEGATIVE (NEGATIVE); BILIRUBIN, URINE AUTO NEGATIVE (NEGATIVE); BLOOD, URINE BLOOD 1+ (NEGATIVE); COLOR, URINE YELLOW (YELLOW); GLUCOSE, URINE (UA) AUTO NEGATIVE (NEGATIVE); KETONE, URINE AUTO NEGATIVE (NEGATIVE); LEUKOCYTE ESTERASE, URINE AUTO TRACE (NEGATIVE); MUCUS, URINE SMALL (NEGATIVE); NITRITE, URINE AUTO NEGATIVE (NEGATIVE); PROTEIN, URINE AUTO NEGATIVE (NEGATIVE); RBC, URINE AUTO 4 /HPF (0-3); SPECIFIC GRAVITY URINE AUTO 1.015 (1.002-1.035); SQUAMOUS EPITHELIAL CELL UR AU 0 /HPF (0-6); UROBILINOGEN, URINE AUTO 0.2 mg/dL (0.0-2.0); WBC, URINE AUTO 2 /HPF (0-3)
[2020-08-07] MEDS ORDERED: PHENAZOPYRIDINE 100 MG TAB PO ONE (19:10)
[2020-08-07] MEDS ORDERED: PYRI1TAB5 PO (19:12)
[2020-08-07 20:00] VITALS: BP 182/80
== END 2020-08-07 20:08 | disposition home or self-care (01) ==
LOC: M ED 16:55
DX: R33.9 Retention of urine, unspecified (principal); R10.2 Pelvic and perineal pain; I10 Essential (primary) hypertension; M06.9 Rheumatoid arthritis, unspecified; M35.00 Sjogren syndrome, unspecified; F33.9 Major depressive disorder, recurrent, unspecified; Z88.1 Allergy status to other antibiotic agents; Z91.030 Bee allergy status; Z79.899 Other long term (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

== ENCOUNTER 2020-09-19 18:44 | Observation (INO) | payer BC, OTHER, MEDICARE ==
[~2020-09-19] VITALS: Ht 165.1 cm; Wt 86.5 kg
[~2020-09-19 18:44] MED LIST changes: -ACET650T61 PO; -DOXY100T PO; -EPIP0.3I2 IM; -FLOM0.4C39 PO; -METO50TA7 PO; -XARE20TA PO
[2020-09-19 19:22] LABS: BASO % 0.3 % (0.0-1.0); EOS # 0.1 10^3/uL (0.0-0.5); EOS % 0.4 % (0.0-3.0); HEMATOCRIT 42.5 % (36.0-47.0); HEMOGLOBIN 14.1 g/dl (12.0-15.5); LYMPH # 1.9 10^3/uL (1.5-5.0); LYMPH % 12.7 % (24.0-44.0); MEAN CORPUSCULAR HEMOGLOBIN 30.4 pg (27.0-33.0); MEAN CORPUSCULAR HGB CONC 33.2 g/dl (32.0-36.5); MEAN CORPUSCULAR VOLUME 91.6 fl (80.0-96.0); MONO % 6.5 % (2.0-8.0); NEUTROPHILS # 11.7 10^3/uL (1.5-8.5); NEUTROPHILS % 79.8 % (36.0-66.0); PLATELET COUNT, AUTOMATED 247 10^3/uL (150-450); RED BLOOD COUNT 4.64 10^6/uL (4.00-5.40); WHITE BLOOD COUNT 14.7 10^3/uL (4.0-10.0)
[2020-09-19 20:07] LABS: ALBUMIN 3.8 GM/DL (3.2-5.2); ALT/SGPT 24 U/L (12-78); BILIRUBIN,DIRECT 0.3 MG/DL (0.0-0.2); BILIRUBIN,TOTAL 0.9 MG/DL (0.2-1.0); BLOOD UREA NITROGEN 11 MG/DL (7-18); CALCIUM LEVEL 8.7 MG/DL (8.5-10.1); CARBON DIOXIDE LEVEL 33 MEQ/L (21-32); CHLORIDE LEVEL 97 MEQ/L (98-107); CK-MB VALUE MASS < 1.0 NG/ML (<3.6); CPK CREATINE PHOSPHOKINASE 74 U/L (26-192); CREATININE FOR GFR 0.78 MG/DL (0.55-1.30); GLOMERULAR FILTRATION RATE > 60.0 (>51); GLUCOSE, FASTING 124 MG/DL (70-100); LIPASE 26 U/L (73-393); MAGNESIUM LEVEL 1.6 MG/DL (1.8-2.4); MB/CK RELATIVE INDEX 1.35 (< OR =4); NT-PRO BNP 432 PG/ML (<125); POTASSIUM SERUM 2.5 MEQ/L (3.5-5.1); SODIUM LEVEL 140 MEQ/L (136-145); TOTAL PROTEIN 7.3 GM/DL (6.4-8.2); TROPONIN I 0.02 NG/ML (< 0.10)
[2020-09-19] MEDS ORDERED: POTASSIUM CHLORIDE 10 MEQ SR TABLET PO ONE (20:35)
[2020-09-19] MEDS ORDERED: MAG SULF 1GM/100ML (MAG RUN) 1 GM in IV 1 EA IV ONE (20:35)
[2020-09-19] MEDS ORDERED: METHOTREXATE 2.5 MG TAB (J8610 PER 2.5MG) PO SCH (21:00)
[2020-09-19] MEDS ORDERED: TAMSULOSIN 0.4 MG CAP PO SCH (21:00)
[2020-09-19] MEDS ORDERED: AMITRIPTYLINE 50 MG TAB PO SCH (21:00)
[2020-09-19] MEDS ORDERED: ATORVASTATIN 20 MG TAB PO SCH (21:00)
[2020-09-19] MEDS ORDERED: KCL 10MEQ/100ML SWI (KRUN) 10 MEQ in IV 1 EA IV ONE (21:35)
[2020-09-19] MEDS ORDERED: FLOM0.4C39 PO (21:45)
[2020-09-19] MEDS ORDERED: EPIP0.3I2 IM (21:45)
[2020-09-19] MEDS ORDERED: LOSA100T50 PO (21:45)
[2020-09-19] MEDS ORDERED: ACET650T61 PO (21:45)
[2020-09-19] MEDS ORDERED: CEVI1CAP PO (21:45)
[2020-09-19] MEDS ORDERED: clonazePAM 1 MG TAB PO PRN (22:30)
[2020-09-19] MEDS ORDERED: DICYCLOMINE 10 MG CAP PO PRN (22:30)
[2020-09-19] MEDS ORDERED: ACETAMINOPHEN TAB 650MG DOSE (2X325MG) PO PRN (22:30)
[2020-09-19] MEDS ORDERED: CYCLOBENZAPRINE 10MG TABLET PO PRN (22:30)
[2020-09-19] MEDS ORDERED: NYSTATIN CREAM 15 GM TOP PRN (22:30)
[2020-09-19] MEDS ORDERED: ANEXSIA, NORCO 7.5MG/325MG TABLET(HYDROCODONE/APAP) PO PRN (22:30)
[2020-09-19 22:50] VITALS: BP 120/75
[2020-09-19] MEDS: METOPROLOL TART 25 MG TABLET PO SCH (23:46)
--- NOTE | 2020-09-19 23:57 | IPNPDOC ---
Text Note Date of Service The patient was seen on 09/19/20. NOTE Time of service 930pm is a 55 yr old F w a hx of Vtach w ICD placement, ASHLEY, Gastric bypass HTN, RA, IBS, Sjogrens, & Anxiety who has had URI symptoms and presented to the hospital for evaluation after her ICD fired she will be admitted for management of Vtac likely 2/2 hypokalemia and hypomagnesemia, electrolyte abnormalites 2/2 poor PO intake and Rhinovirus infection. 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 per Louise Hannah's H&P VS,Marcelle, I+O VS, Marcelle, I+O Laboratory Tests 09/19/20 18:53 Vital Signs Date Time Temp Pulse Resp B/P (MAP) Pulse Ox O2 Delivery O2 Flow Rate FiO2 09/19/20 23:46 104 120/75 09/19/20 22:50 98.9 19 95 Room Air GREGORY STOUT MD Sep 19, 2020 23:57
--- NOTE | 2020-09-20 00:10 | HPEPDOC ---
[facility] Medical History & Physical Date of Admission Sep 19, 2020 Date of Service: Sep 19, 2020 Primary Care Physician: GERARDO OGLESBY DO Attending Physician: GREGORY STOUT MD History and Physical CHIEF COMPLAINT: Chest pain HISTORY OF PRESENT ILLNESS: This is a 55 year old female who had a defibrillator placed in 2019 due to v- tach; her cath prior to have the device placed was negative. Today she presented to the ED accompanied by ; she was sitting in the car in the parking lot of [employer] when she felt like something hit her in her chest. She was unsure of what happened initially but later realized that her defibrillator went off. This is the first time her defibrillator went off since she got it in 2019. She denies chest pain, palpitations, or shortness of breath prior to defibrillator shocking her. The only sx pt had was diaphoresis and "feeling hot". She had one episode of vomiting on Thursday but no other episodes since then, had decreased appetite, abd "cramping" that is chronic for her but has been increasing in frequency since the past three days. The defib interrogation report from [facility] showed that pt was in SVT with HR in the 230's for about 7 minutes prior. REVIEW OF SYSTEMS: 12 point review of systems negative other than what is stated above. PAST MEDICAL/SURGICAL HISTORY: HTN. RA. IBS. Sjogrens. Anxiety. GERD. Fibromyalgia. Recurrent UTI's. Ovarian cysts. Chronic back pain. ICD implanted in 2019. R shoulder replacement. R knee ACL repair. Spinal fusion L5-S2. Gastric bypass 2007. Trial dorsal column stimulator in 2013. SOCIAL HISTORY: Pt is and lives at home with her , daughter, and her grandchildren, denies any tobacco use, EtOH use, or illicit/recreational drug use. FAMILY HISTORY: Mother has hx of CKD, CAD, and HTN. Father has hx of lung CA and hyperlipidemia ALLERGIES: Please see below. HOME MEDICATIONS: Please see below. PHYSICAL EXAMINATION: VITAL SIGNS: Temperature 97.8, pulse 110, respiratory rate 22, blood pressure 136/90, pulse oximetry 97% on room air. GENERAL APPEARANCE: Pt is sitting comfortably at rest. Does not appear to be in any acute distress. HEENT: NC/AT. EOMI. Normal conjunctiva and lids. No scleral icterus. CARDIOVASCULAR: Tachycardic. Regular rhythm. No murmurs, rubs, or gallops appreciated. LUNGS: Decreased breath sounds to bilateral lung bases but no wheezes, rales, or rhonchi. ABDOMEN: Abd soft and non tender to palpation. Normoactive bowel sounds in all four quadrants. EXTREMITIES: 2+ pitting edema to BLE to shins. NEUROLOGICAL: No focal neurologic deficits appreciated. Pt is able to ambulate without difficulty and is able to answer questions and have conversations without issues. LABORATORY DATA: IMAGING: CXR (09/20/19) No acute cardiopulmonary disease or significant change from prior exam. MICROBIOLOGY: Human Rhinovirus/Enterovirus ASSESSMENT/PLAN: Patient is a 55 year old female with PMH of V-tach s/p ICD implant 2018, HTN, RA, IBS, Sjogrens, recurrent UTI's, fibromyalgia, GERD, and anxiety who presented to the ED accompanied by with complaints of chest pain; Report obtained in regards to defibrillator events showed that pt was in SVT; she will be admitted for SVT likely 2/2 hypokalemia/hypomagnesemia. #SVT s/p defibrillator shock - Pt has hx of ventricular tachycardia that required transfer to [facility] in [place]. She had cardiac cath done at that time that was normal and she subsequently had an ICD placed. - She has not had her defibrillator go off since placement and this is the first event. - According to event records obtained, it appears that pt was in SVT with HR in the 230's for 7 minutes prior to shock from defibrillator. - Her EKG done in ED was unremarkable. - She is tachycardic with HR in the 110's. However, looking back into her records, it appears that pt runs slightly tachycardic. - Her recent cardiac event is likely 2/2 hypokalemia and hypomagnesemia as her K was 2.5 and Mg was 1.6. - Continue home medication Metoprolol for rate control. - Pt senior property manager is Dr. Foy in [place]. Day team can contact him for more information at [phone] if needed. - Will replete K and Mg. See below. - Pt placed on telemetry monitoring. Will continue to monitor. #Hypokalemia - Pt is hypokalemic at 2.5. She is symptomatic with SVT. - She reports one episode of vomiting on Thursday. This is less likely the etiology of her hypokalemia as she only had one episode of vomiting a few days ago and none since then. - Hypokalemia may be exacerbated by her hypomagnesemia. - She has had decreased oral intake due to decreased appetite and nausea. This may be contributing to her hypokalemia. - Pt discontinued her Prednisone that she has been taking for a year one week ago. She states that she gradually tapered prior to discontinuing. As pt was chronically on 5 mg Prednisone BID, this may be a possible cause of hypokalemia however low on etiology due to discontinuation one week ago. - She is on tamsulosin at home which may be contributing to her hypokalemia. - She is on spironolactone at home. - She was given KCl 40 meq PO once and KCl 10 meq IV once while in the ED. - Will continue to replete K as needed. - Will continue to monitor K levels. #Hypomagnesemia - May be 2/2 recent decreased oral intake. - Pt was given 1 mag run while in the ED. - Will continue to replete Mg and monitor Mg levels. #Human rhinovirus/enterovirus infection - Pt has been having URI like sx with cough, rhinorrhea, sore throat, and fever for the past couple of days. - Pt was tested positive for human rhinovirus/enterovirus infection while in the ED. - CXR done outpatient was reported to show no cardiopulmonary disease. - Pulmonary examination was unremarkable. No wheezes, rales, or rhonchi was appreciated. - She was started on quinolone abx by her PCP but that is not indicated at this time with a viral infection. No abx will be started/continued at this time. - Tylenol PRN ordered for fever. - Will continue to monitor. #Rheumatoid arthritis - Continue home medication Methotrexate. - Continue home medication leucovorin. #Neurogenic bladder - Continue home medication Tamsulosin. #Hypertension - Continue home medication Metoprolol. - Continue home medication losartan. - Continue home medication spironolactone. #IBS - Continue home medication dicyclomine PRN. #Chronic back pain - Continue home medication Cyclobenzaprine PRN. - Continue home medication Hydrocodone bitart/acetaminophen as needed. #Anxiety/Depression - Continue home medication Amitriptyline. - Continue home medication venlafaxine. #Insomnia - Continue home medication Clonazepam 2mg PRN. DVT Prophylaxis: Lovenox 40 mg SC Daily. Disposition: home after at least 2 midnight's stay Resident attestation: Travis Lentz, DO, saw and examined the patient with Louise Lockwood OMS-III. We discussed the case together and with our attending. I agree with the assessment and plan and the note as it is written above. Home Medications Scheduled Abatacept (Orencia) 125 Mg/1 Ml Syringe, 125 MG SC QWEEK SUNDAYS Amitriptyline HCl (Amitriptyline HCl) 50 Mg Tablet, 50 MG PO QHS Atorvastatin Calcium (Atorvastatin Calcium) 40 Mg Tablet, 40 MG PO QHS Cevimeline HCl (Cevimeline HCl) 30 Mg Capsule, 30 MG PO BID Doxycycline Hyclate (Doxycycline Hyclate) 100 Mg Tablet, 100 MG PO BID Eluxadoline (Viberzi) 75 Mg Tablet, 75 MG PO QHS Hyoscyamine Sulfate (Hyoscyamine Sulfate ER) 0.375 Mg Tab.er.12h, 0.375 MG PO BID Leucovorin Calcium (Leucovorin Calcium) 5 Mg Tablet, 5 MG PO QWEEK THURSDAYS Losartan Potassium (Losartan Potassium) 100 Mg Tablet, 100 MG PO DAILY Methotrexate Sodium (Methotrexate) 2.5 Mg Tablet, 20 MG PO QWEEK THURSDAY EVENINGS Metoprolol Tartrate (Metoprolol Tartrate) 50 Mg Tablet, 50 MG PO BID Multivitamins (Thera M Plus Tablet) 1 Each Tablet, 1 TAB PO DAILY [place]-3 Fatty Acids/Fish Oil (Fish Oil 1,000 mg Capsule) 1 Each Capsule, 1,000 MG PO BID Rivaroxaban (Xarelto) 20 Mg Tablet, 20 MG PO DAILY with food Semaglutide (Ozempic) 0.25 Mg/0.2 Ml Pen.injctr, 0.5 MG SC QWEEK SUNDAYS Spironolactone (Spironolactone) 25 Mg Tablet, 25 MG PO DAILY Tamsulosin HCl (Flomax) 0.4 Mg Capsule, 0.4 MG PO QHS Venlafaxine HCl (Venlafaxine HCl ER) 75 Mg Cap.er.24h, 75 MG PO DAILY TAKES WITH 150MG FOR 225MG TOTAL Venlafaxine HCl (Venlafaxine HCl ER) 150 Mg Cap.er.24h, 150 MG PO DAILY TAKES WITH 75MG FOR 225MG TOTAL Scheduled PRN Acetaminophen (Tylenol Arthritis) 650 Mg Tablet.er, 1,300 MG PO BID PRN for PAIN Cevimeline HCl (Cevimeline HCl) 30 Mg Capsule, 30 MG PO DAILY PRN for DRY MOUTH Clonazepam (Clonazepam) 2 Mg Tablet, 2 MG PO QHS PRN for SLEEP Clonazepam (Clonazepam) 1 Mg Tab.rapdis, 1 MG PO BID PRN for ANXIETY Cyclobenzaprine HCl (Cyclobenzaprine HCl) 10 Mg Tablet, 10 MG PO TID PRN for MUSCLE SPASMS Dicyclomine HCl (Dicyclomine HCl) 10 Mg Capsule, 10 MG PO TID PRN for ABDOMINAL PAIN Diphenoxylate HCl/Atropine (Lomotil 2.5-0.025 mg Tablet) 1 Each Tablet, 1 TAB PO QID PRN for DIARRHEA Epinephrine (Epipen 2-Christian) 0.3 Mg/0.3 Ml Auto.injct, 0.3 MG IM ASDIRECTED PRN for ANAPHYLAXIS Hydrocodone/Acetaminophen (Hydrocodone-Acetamin 7.5-325) 1 Each Tablet, 1 TAB PO Q8H PRN for PAIN Nystatin (Nystatin) 15 Gm Cream..g., 1 APLCT TOP BID PRN for RASH/ITCHING APPLY TO ABDOMINAL FOLDS Allergies Coded Allergies: bee venom protein (honey bee) (Verified Allergy, Severe, PALPITATIONS, SWELLING, DYSPNEA, 08/07/20) amoxicillin (Verified Allergy, Intermediate, rash, 08/07/20) erythromycin base (Verified Allergy, Unknown, 08/07/20) A-FIB/CHADSVASC A-FIB History Current/History of A-Fib/PAF?: No GME ATTESTATION GME ATTESTATION My faculty preceptor for this patient encounter was physically present during the encounter and was fully available. All aspects of the patient interview, examination, medical decision making process, and medical care plan development were reviewed and approved by the faculty preceptor. The faculty preceptor is aware and concurs with the plan as stated in the body of this note and will attest to such by his/her cosignature. ATTENDING NOTE I examined the patient, discussed the case with Louise Lockwood and , edited the note and agree with the findings as documented. Time of service 930pm is a 55 yr old F w a hx of Vtach w ICD placement, ASHLEY, Gastric bypass HTN, RA, IBS, Sjogrens, & Anxiety who has had URI symptoms and presented to the hospital for evaluation after her ICD fired she will be admitted for management of Vtac likely 2/2 hypokalemia and hypomagnesemia, electrolyte abnormalities 2/2 poor PO intake and Rhinovirus infection. 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
[2020-09-20 00:55] LABS: CK-MB VALUE MASS < 1.0 NG/ML (<3.6); CPK CREATINE PHOSPHOKINASE 58 U/L (26-192); MAGNESIUM LEVEL 1.9 MG/DL (1.8-2.4); MB/CK RELATIVE INDEX 1.72 (< OR =4); POTASSIUM SERUM 2.6 MEQ/L (3.5-5.1); TROPONIN I 0.03 NG/ML (< 0.10)
[2020-09-20] MEDS ORDERED: MAGNESIUM OXIDE 400MG TAB (MAG-OX) PO ONE (01:35)
[2020-09-20] MEDS: POTASSIUM CHLORIDE 10 MEQ SR TABLET PO SCH ×3 (02:00→04:53)
[2020-09-20 04:00] VITALS: BP 159/86
[2020-09-20 07:08] LABS: HEMATOCRIT 39.4 % (36.0-47.0); MEAN CORPUSCULAR HEMOGLOBIN 30.4 pg (27.0-33.0); MEAN CORPUSCULAR VOLUME 92.3 fl (80.0-96.0); PLATELET COUNT, AUTOMATED 233 10^3/uL (150-450); RED BLOOD COUNT 4.27 10^6/uL (4.00-5.40); WHITE BLOOD COUNT 12.7 10^3/uL (4.0-10.0)
[2020-09-20 07:23] LABS: HEMOGLOBIN A1c 5.8 %
[2020-09-20 07:25] LABS: BLOOD UREA NITROGEN 10 MG/DL (7-18); CALCIUM LEVEL 8.6 MG/DL (8.5-10.1); CARBON DIOXIDE LEVEL 35 MEQ/L (21-32); CHLORIDE LEVEL 103 MEQ/L (98-107); CREATININE FOR GFR 0.53 MG/DL (0.55-1.30); GLOMERULAR FILTRATION RATE > 60.0 (>51); GLUCOSE, FASTING 98 MG/DL (70-100); MAGNESIUM LEVEL 2.2 MG/DL (1.8-2.4); POTASSIUM SERUM 3.7 MEQ/L (3.5-5.1); SODIUM LEVEL 141 MEQ/L (136-145)
[2020-09-20 08:00] VITALS: BP 119/62
[2020-09-20 09:00] VITALS: BP 129/83
[2020-09-20] MEDS ORDERED: MULTIVITAMINS/MINERALS THERAP 1 TAB PO SCH (09:00)
[2020-09-20] MEDS ORDERED: LEUCOVORIN 5 MG TAB PO SCH (09:00)
[2020-09-20] MEDS ORDERED: DOXYCYCLINE HYCLATE 100MG TABLET PO SCH (09:00)
[2020-09-20] MEDS ORDERED: ENOXAPARIN 40MG/0.4ML SYRINGE (J1650 PER 10MG) SC SCH (09:00)
[2020-09-20] MEDS ORDERED: LOSARTAN 50MG TABLET PO SCH (09:00)
[2020-09-20] MEDS ORDERED: SPIRONOLACTONE 25 MG TAB PO SCH (09:00)
[2020-09-20] MEDS ORDERED: POTASSIUM CHLORIDE 10 MEQ SR TABLET PO ONE (09:00)
[2020-09-20] MEDS ORDERED: VENLAFAXINE **XR** 75MG CAPSULE PO SCH ×2 (09:00)
--- NOTE | 2020-09-20 09:01 | IPNPDOC ---
Text Note Date of Service The patient was seen on 09/20/20. NOTE Subjective: Patient was seen and examined this morning at bedside. Patient tells me she feels well she hasn't had any more shocks from AICD. She denies any chest pain or palpitations. She denies shortness of breath. Denies dysuria. Denies fevers or chills. Objective: Constitutional: Awake and alert, in no apparent distress ENT: Sclera are clear. Mucosa is moist. Respiratory: Lungs CTA bilaterally. No respiratory distress. Cardiovascular: Irregular heart rate. No JVD. AICD in place. Gastrointestinal: Abdomen is soft, non distended, non tender, BS present. Musculoskeletal: No edema. No joint deformities. Neurologic: No focal neurological deficit. Mental Status: A&O x3, normal affect Skin: Warm, dry Assessment/plan: Inappropriate AICD shock New onset atrial fibrillation Previously diagnosed community-acquired pneumonia Patient's pacemaker was interrogated [employer] and [email or web address] was used to transmit patient stated to her voice pathologist in [place] Dr. Law Sen. I spoke with him after he reviewed her events it appears that patient has intermi ttent atrial fibrillation her heart rate was over 200 which led the AICD to liver shock inappropriately. Dr. Foy recommended patient to be started on anti- coagulation was Xarelto 20 g daily. He also recommended increasing her dose of metoprolol tartrate from 25 twice a day to [address] Melvin was comfortable with her being discharged home today and to follow-up with their practice next week in clinic. Patient has had no events on telemetry monitoring while admitted for observation. I also continued treatment for patient's previously diagnosed community-acquired pneumonia with doxycycline. The patient's urinalysis was positive however she does frequently self catheterize and does not have symptoms of urinary tract infection no dysuria. A [facility] Hospitalist Marcelle MERRITT, I+O Marcelle MERRITT, I+O Laboratory Tests 09/19/20 18:53 09/20/20 00:10 09/20/20 06:10 Vital Signs Date Time Temp Pulse Resp B/P (MAP) Pulse Ox O2 Delivery O2 Flow Rate FiO2 09/20/20 08:00 98.4 98 18 119/62 (81) 90 Room Air I&O- Last 24 Hours up to 6 AM 09/20/20 06:00 Intake Total 180 ml Balance 180 ml WES LAKE MD Sep 20, 2020 09:01
--- NOTE | 2020-09-20 09:45 | REP ---
INDICATION: History of PNA recently. Still has cough and leukocytosis. COMPARISON: Comparison chest x-ray September 19, 2020.. TECHNIQUE: Single-view. FINDINGS: Patient is status post right shoulder arthroplasty, dorsal column stimulator, and cardiac pacemaker. Monitoring electrodes are seen. Heart size is borderline unchanged. The lung ching are well inflated and clear. Pulmonary vasculature is not increased. No evidence of pleural effusion or infiltrate. IMPRESSION: Pacemaker and dorsal column stimulator in place. Right shoulder replacement. No active disease. <Electronically signed by Dinesh Davison > 09/20/20 0388
[2020-09-20 09:53] VITALS: BP 129/83
[2020-09-20] MEDS: METOPROLOL TART 25 MG TABLET PO SCH (09:54)
[2020-09-20 11:26] VITALS: BP 138/89
[2020-09-20 12:26] LABS: APPEARANCE, URINE HAZY (CLEAR); BACTERIA, URINE AUTO 1+ (NEGATIVE); BILIRUBIN, URINE AUTO NEGATIVE (NEGATIVE); BLOOD, URINE BLOOD NEGATIVE (NEGATIVE); COLOR, URINE AMBER (YELLOW); GLUCOSE, URINE (UA) AUTO NEGATIVE (NEGATIVE); KETONE, URINE AUTO 1+ mg/dL (NEGATIVE); LEUKOCYTE ESTERASE, URINE AUTO TRACE (NEGATIVE); MUCUS, URINE SMALL (NEGATIVE); NITRITE, URINE AUTO POSITIVE (NEGATIVE); PROTEIN, URINE AUTO 1+ mg/dL (NEGATIVE); RBC, URINE AUTO 16 /HPF (0-3); SPECIFIC GRAVITY URINE AUTO 1.017 (1.002-1.035); SQUAMOUS EPITHELIAL CELL UR AU 0 /HPF (0-6); WBC, URINE AUTO 27 /HPF (0-3)
[2020-09-20] MEDS ORDERED: METO50TA7 PO (12:39)
[2020-09-20] MEDS ORDERED: DOXY100T PO (12:39)
[2020-09-20] MEDS ORDERED: XARE20TA PO (12:40)
--- NOTE | 2020-09-20 13:02 | ECGEPIP ---
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
== END 2020-09-20 15:30 | disposition home or self-care (01) ==
LOC: M ED 18:44 → M ED INP 20:57 → INTOOBSV 20:57 → ENRESERV 22:18 → M PCU 22:55
PROVIDERS: ADMIT Internal Medicine; ATTEND Internal Medicine
DX: T82.897A Other specified complication of cardiac prosthetic devices, implants and grafts, initial encounter (principal); Z45.02 Encounter for adjustment and management of automatic implantable cardiac defibrillator; I48.91 Unspecified atrial fibrillation; J18.9 Pneumonia, unspecified organism; I10 Essential (primary) hypertension; M06.9 Rheumatoid arthritis, unspecified; K58.8 Other irritable bowel syndrome; E87.6 Hypokalemia; E83.42 Hypomagnesemia; M35.00 Sjogren syndrome, unspecified; K21.9 Gastro-esophageal reflux disease without esophagitis; F41.9 Anxiety disorder, unspecified; Z79.01 Long term (current) use of anticoagulants; Z79.899 Other long term (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; G47.33 Obstructive sleep apnea (adult) (pediatric); Z98.84 Bariatric surgery status; Z91.030 Bee allergy status; Z88.0 Allergy status to penicillin; Z88.1 Allergy status to other antibiotic agents; M79.7 Fibromyalgia; Y71.8 Miscellaneous cardiovascular devices associated with adverse incidents, not elsewhere classified
CPT/HCPCS: 36415; 71045; 80048; 80076; 81001; 82550; 82553; 83036; 83690; 83735; 83880; 84132; 84145; 84484; 85025; 85027; 87798; 93005; 93041; 94760; 96360; 96361; 96372; 99285; J1650; J3475; J8610

== ENCOUNTER → 2020-09-19 | Outpatient (CLI) | payer BC, OTHER, MEDICARE ==
[~2020-09-19] MED LIST changes: +ACET650T61 PO; +DOXY100T PO; +EPIP0.3I2 IM; +FLOM0.4C39 PO; +METO50TA7 PO; +PYRI1TAB5 PO; +XARE20TA PO
--- NOTE | 2020-09-19 18:29 | REP ---
INDICATION: PNEUMONIA DUE TO OTHER SPECIFIED BACTERIA. COMPARISON: 07/11/2020 a portable exam TECHNIQUE: PA and lateral views FINDINGS: The superior mediastinal structures are midline. The cardiac silhouette is enlarged. The diaphragmatic surfaces of the lungs are regular, and the costophrenic angles are clear. The pulmonary ching are unchanged. No acute patchy parenchymal opacities or pleural effusions have developed. The single chamber bipolar pacemaker devices stable. There is no change in appearance of the dorsal column stimulator. There is no change in the osseous structures.. IMPRESSION: No acute cardiopulmonary disease or significant change from the prior exam. <Electronically signed by Mak Subramanian > 09/19/20 1549
== END ==
LOC: M RAD 17:22
PROVIDERS: ATTEND Physician Assistant
DX: J15.8 Pneumonia due to other specified bacteria (principal)

== ENCOUNTER → 2020-09-25 | Outpatient (REF) | payer OTHER, MEDICARE ==
[~2020-09-25] MED LIST changes: +ACET650T61 PO; +DOXY100T PO; +EPIP0.3I2 IM; +FLOM0.4C39 PO; +METO50TA7 PO; +XARE20TA PO
[2020-09-25 13:36] LABS: BASO # 0.1 10^3/uL (0.0-0.2); BASO % 1.7 % (0.0-1.0); EOS # 0.2 10^3/uL (0.0-0.5); EOS % 3.7 % (0.0-3.0); HEMATOCRIT 37.4 % (36.0-47.0); HEMOGLOBIN 12.2 g/dl (12.0-15.5); LYMPH # 2.1 10^3/uL (1.5-5.0); LYMPH % 40.7 % (24.0-44.0); MEAN CORPUSCULAR HEMOGLOBIN 30.7 pg (27.0-33.0); MEAN CORPUSCULAR HGB CONC 32.6 g/dl (32.0-36.5); MONO # 0.4 10^3/uL (0.0-0.8); MONO % 7.2 % (2.0-8.0); NEUTROPHILS # 2.4 10^3/uL (1.5-8.5); NEUTROPHILS % 46.3 % (36.0-66.0); PLATELET COUNT, AUTOMATED 307 10^3/uL (150-450); RED BLOOD COUNT 3.98 10^6/uL (4.00-5.40); WHITE BLOOD COUNT 5.2 10^3/uL (4.0-10.0)
[2020-09-25 14:05] LABS: ERYTHROCYTE SEDIMENTATION RATE 29 mm/hr (0-30)
[2020-09-25 14:12] LABS: HEMOGLOBIN A1c 5.9 %
[2020-09-25 14:18] LABS: ALBUMIN 3.4 GM/DL (3.2-5.2); ALT/SGPT 23 U/L (12-78); BILIRUBIN,TOTAL 0.3 MG/DL (0.2-1.0); BLOOD UREA NITROGEN 20 MG/DL (7-18); CALCIUM LEVEL 8.7 MG/DL (8.5-10.1); CARBON DIOXIDE LEVEL 32 MEQ/L (21-32); CHLORIDE LEVEL 105 MEQ/L (98-107); CREATININE FOR GFR 0.66 MG/DL (0.55-1.30); FOLATE > 24.0 NG/ML; GLOMERULAR FILTRATION RATE > 60.0 (>51); GLUCOSE, FASTING 86 MG/DL (70-100); POTASSIUM SERUM 3.4 MEQ/L (3.5-5.1); RHEUMATOID FACTOR QUANT < 10.0 IU/ML (<15.0); SODIUM LEVEL 142 MEQ/L (136-145); TOTAL PROTEIN 6.7 GM/DL (6.4-8.2); VITAMIN B12 LEVEL 454 PG/ML
[2020-09-26 10:22] LABS: ALBUMIN 3.86 GM/DL (3.29-5.55); ALBUMIN % 57.6 % (55.8-66.1); ALPHA-1-GLOBULIN % 6.1 % (2.9-4.9); ALPHA-1-GLOBULINS 0.41 GM/DL (0.17-0.41); ALPHA-2-GLOBULINS 0.83 GM/DL (0.42-0.99); ALPHA-2-GLOBULINS % 12.4 % (7.1-11.8); BETA-1-GLOBULINS 0.44 GM/DL (0.28-0.60); BETA-1-GLOBULINS % 6.5 % (4.7-7.2); BETA-2-GLOBULINS % 4.5 % (3.2-6.5); GAMMA GLOBULIN % 12.9 % (11.1-18.8); GAMMA GLOBULINS 0.86 GM/DL (0.65-1.58)
[2020-09-26 11:33] LABS: DRVV SCREEN 81.4 SEC
[2020-09-26 11:42] LABS: DRVV CONFIRM 55.7 SEC; LUPUS CONFIRM RATIO 1.4
[2020-09-26 11:43] LABS: NORMALIZED RATIO 1.43 (0.00-1.20)
[2020-09-28 04:11] LABS: HEXAGONAL PHASE PHOSPHOLIPID 0 sec (0-11)
[2020-10-03 15:08] LABS: ANCA-ATYPICAL <1:20 titer (Neg:<1:20); ANTI DS-DNA AB Negative (Negative); ANTINUCLEAR ANTIBODIES DIRECT Negative (Negative); CYTOPLASMIC NEUTROP AB ANCA-C <1:20 titer (Neg:<1:20); PERINUCLEAR AB ANCA-P <1:20 titer (Neg:<1:20); SJOGREN'S ANTI SS-A <0.2 AI (0.0-0.9); SJOGREN'S ANTI SS-B <0.2 AI (0.0-0.9); VITAMIN B1 LEVEL WHOLE BLOOD 144.9 nmol/L (66.5-200.0); VITAMIN B6,PYRIDOXAL PHOSPHATE 10.2 ug/L (2.0-32.8); VITAMIN E(ALPHA TOCOPHEROL) 8.3 mg/L (7.0-25.1); VITAMIN E(GAMMA TOCOPHEROL) 1.1 mg/L (0.5-5.5)
== END ==
LOC: M PLALAB 13:21
PROVIDERS: ATTEND Psychiatry & Neurology Neurology
DX: E87.6 Hypokalemia (principal); I48.91 Unspecified atrial fibrillation

== ENCOUNTER → 2020-10-23 | Outpatient (CLI) | payer BC, OTHER, MEDICARE ==
[~2020-10-23] MED LIST changes: +ISOVUE-370 76% 100ML VIAL As Ordered ONE
--- NOTE | 2020-10-23 09:18 | REPVR ---
PROCEDURE INFORMATION: Exam: CT Head Without And With Contrast Exam date and time: 10/23/2020 9:03 AM Age: 55 years old Clinical indication: Pain; Headache; Additional info: Tremors, lbp TECHNIQUE: Imaging protocol: Computed tomography of the head without and with intravenous contrast. Radiation optimization: All CT scans at this facility use at least one of these dose optimization techniques: automated exposure control; mA and/or kV adjustment per patient size (includes targeted exams where dose is matched to clinical indication); or iterative reconstruction. Contrast material: ISO 370; Contrast volume: 75 ml; Contrast route: INTRAVENOUS (IV); COMPARISON: CT Head without contrast 08/16/2014 4:55 PM FINDINGS: Brain: Examination of the brain demonstrates normal structure and attenuation.The cortical pino / white matter interfaces are preserved throughout the brain.No acute infarction, masses or hemorrhage is seen. Cerebral ventricles: The ventricular system is not dilated and is appropriate for the patient's age. Bones/joints: Unremarkable. No acute fracture. Paranasal sinuses: Visualized sinuses are unremarkable. No fluid levels. Mastoid air cells: Visualized mastoid air cells are well aerated. Soft tissues: Unremarkable. IMPRESSION: 1. No acute infarction, masses or hemorrhage is seen. No acute intracranial abnormality is identified. 2. No abnormal contrast enhancement is seen. Electronically signed by: Ambrocio Hernandez On 10/23/2020 09:18:03 AM
--- NOTE | 2020-10-23 09:23 | REPVR ---
PROCEDURE INFORMATION: Exam: CT Lumbar Spine Without Contrast Exam date and time: 10/23/2020 9:03 AM Age: 55 years old Clinical indication: Low back pain; Additional info: Tremors, lbp TECHNIQUE: Imaging protocol: Computed tomography images of the lumbar spine without contrast. Radiation optimization: All CT scans at this facility use at least one of these dose optimization techniques: automated exposure control; mA and/or kV adjustment per patient size (includes targeted exams where dose is matched to clinical indication); or iterative reconstruction. COMPARISON: CR Spine. Lumbosacral, complete 08/08/2016 12:07 PM FINDINGS: Vertebrae: Examination reveals the patient to be status post posterior spinal fusion with laminectomy at L5 and S1 levels. Stable disc prosthesis at L5-S1 level.Metallic beam hardening artifact slightly limits evaluation in this region. There is mild degenerative retrolisthesis of L3 on L4.Otherwise,The lumbar vertebral bodies are normal in height and alignment.No acute fracture or dislocation is seen. Discs/Spinal canal/Neural foramina: At L1-L2 and L2-L3 levels, no significant disc herniation is seen. At L3-L4 level, the disc is moderately reduced in height with mild adjacent degenerative endplate changes. There is a moderate diffuse posterior herniation. Moderate facet arthropathy.There is moderate spinal canal stenosis, with an AP canal dimension of 8 mm. There is moderate bilateral foraminal stenosis. The L4-L5 disc reveals a small diffuse posterior herniation. Moderate facet arthropathy.There is mild spinal canal narrowing, with an AP canal dimension of 10 mm. There is mild bilateral foraminal stenosis. Epidural space: There is no evidence of epidural masses or hemorrhage. Soft tissues: The prevertebral soft tissues appear normal. IMPRESSION: 1. CT scan of the lumbar spine reveals stable postsurgical changes and multilevel degenerative spondylitic changes and degenerative disc disease as described above. 2. Examination reveals the patient to be status post posterior spinal fusion with laminectomy at L5 and S1 levels. Stable disc prosthesis at L5-S1 level.Metallic beam hardening artifact slightly limits evaluation in this region. There is mild degenerative retrolisthesis of L3 on L4.Otherwise,The lumbar vertebral bodies are normal in height and alignment.No acute fracture or dislocation is seen. Electronically signed by: Ambrocio Hernandez On 10/23/2020 09:23:08 AM
== END ==
LOC: M RAD 08:37
PROVIDERS: ATTEND Psychiatry & Neurology Neurology
DX: M47.816 Spondylosis without myelopathy or radiculopathy, lumbar region (principal); M51.36 Other intervertebral disc degeneration, lumbar region; M43.16 Spondylolisthesis, lumbar region; R25.1 Tremor, unspecified
CPT/HCPCS: 70470; 72131; Q9967

== ENCOUNTER → 2020-11-21 | Outpatient (CLI) | payer BC, OTHER, MEDICARE ==
[~2020-11-21] MED LIST changes: -ISOVUE-370 76% 100ML VIAL As Ordered ONE
== END ==
LOC: M CARPUL 10:17
PROVIDERS: ATTEND Physician Assistant
DX: I48.91 Unspecified atrial fibrillation (principal)

== ENCOUNTER 2020-12-11 18:46 | Emergency (ER) | payer BC, OTHER, MEDICARE ==
[~2020-12-11] VITALS: Ht 165.1 cm; Wt 86.8 kg
--- NOTE | 2020-12-11 19:32 | REP ---
INDICATION: CHEST PAIN. COMPARISON: Comparison chest x-ray September 20, 2020. TECHNIQUE: Portable upright AP chest radiograph. FINDINGS: EKG monitoring electrodes overlie the chest. A unipolar pacemaker is seen in the right heart view of the left side. There is a dorsal column stimulator lead in place in the thoracic spinal canal and a prosthetic right shoulder arthroplasty is seen.. Heart is not enlarged. Pulmonary vasculature is not increased. Pleural angles are sharp. No infiltrate is seen. IMPRESSION: No acute disease. Pacemaker in place.. <Electronically signed by Dinesh Davison > 12/11/201927
[2020-12-11 20:21] LABS: BASO # 0.1 10^3/uL (0.0-0.2); BASO % 0.9 % (0.0-1.0); EOS # 0.1 10^3/uL (0.0-0.5); EOS % 1.6 % (0.0-3.0); HEMATOCRIT 34.5 % (36.0-47.0); HEMOGLOBIN 11.7 g/dl (12.0-15.5); LYMPH # 2.4 10^3/uL (1.5-5.0); LYMPH % 38.1 % (24.0-44.0); MEAN CORPUSCULAR HGB CONC 33.9 g/dl (32.0-36.5); MEAN CORPUSCULAR VOLUME 91.3 fl (80.0-96.0); MONO # 0.5 10^3/uL (0.0-0.8); NEUTROPHILS # 3.3 10^3/uL (1.5-8.5); NEUTROPHILS % 51.1 % (36.0-66.0); PLATELET COUNT, AUTOMATED 235 10^3/uL (150-450); RED BLOOD COUNT 3.78 10^6/uL (4.00-5.40); WHITE BLOOD COUNT 6.4 10^3/uL (4.0-10.0)
[2020-12-11 20:32] LABS: INR 1.54; PARTIAL THROMBOPLASTIN TIME 35.6 SECONDS (24.2-38.5); PROTHROMBIN TIME 18.8 SECONDS (12.5-14.3)
[2020-12-11 20:44] LABS: BLOOD UREA NITROGEN 19 MG/DL (7-18); CALCIUM LEVEL 8.5 MG/DL (8.5-10.1); CARBON DIOXIDE LEVEL 30 MEQ/L (21-32); CHLORIDE LEVEL 106 MEQ/L (98-107); CK-MB VALUE MASS 1.1 NG/ML (<3.6); CPK CREATINE PHOSPHOKINASE 99 U/L (26-192); CREATININE FOR GFR 0.65 MG/DL (0.55-1.30); GLOMERULAR FILTRATION RATE > 60.0 (>51); GLUCOSE, FASTING 115 MG/DL (70-100); MB/CK RELATIVE INDEX 1.11 (< OR =4); POTASSIUM SERUM 3.4 MEQ/L (3.5-5.1); SODIUM LEVEL 143 MEQ/L (136-145); TROPONIN I < 0.02 NG/ML (< 0.10)
[2020-12-11 23:02] VITALS: BP 108/59
--- NOTE | 2020-12-12 20:35 | ECGEPIP ---
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
== END 2020-12-11 23:05 | disposition home or self-care (01) ==
LOC: M ED 18:46
DX: I47.2 Ventricular tachycardia (principal); I48.91 Unspecified atrial fibrillation; I10 Essential (primary) hypertension; Z88.1 Allergy status to other antibiotic agents; Z88.7 Allergy status to serum and vaccine; Z91.030 Bee allergy status; Z95.810 Presence of automatic (implantable) cardiac defibrillator; Z98.84 Bariatric surgery status

== ENCOUNTER → 2021-01-08 | Outpatient (REF) | payer OTHER, MEDICARE | LOC: M LAB REF 19:15 | PROVIDERS: ATTEND Family Medicine | DX: N61.1 Abscess of the breast and nipple (principal) ==

== ENCOUNTER 2021-01-22 11:33 | Emergency (ER) | payer BC, OTHER, MEDICARE ==
[~2021-01-22] VITALS: Ht 165.1 cm; Wt 85.5 kg
--- OUTSIDE RECORDS SUMMARY | 2021-01-22 11:41 | CCD | Continuity of Care Document ---
Author Author Elena ALTAMIRANO Organization Unknown Address [address] [place] [address] Phone [phone] Care Team Providers Care Veneer Stacker Name Role Phone Ivon Faye DO AUTM [phone] Problems Description No Information Available Social History Type Date Description Comments Sex Unknown Allergies, Adverse Reactions, Alerts Description No Information Available Medications Description No Information Available Immunizations Description No Information Available Vital Signs Description No Information Available Results Test Acquired Date Facility Test Result H/L Range Note Comprehensive Metabolic Profil 09/25/2020 [facility] Glucose, Fasting 86 mg/dL Normal 70-100 Blood Urea Nitrogen 20 mg/dL High 7-18 Creatinine For GFR 0.66 mg/dL Normal 0.55-1.30 Glomerular Filtration Rate > 60.0 Normal >51 1 Sodium Level 142 mEq/L Normal 136-145 Potassium Serum 3.4 mEq/L Low 3.5-5.1 Chloride Level 105 mEq/L Normal 98-107 Carbon Dioxide Level 32 mEq/L Normal 21-32 Anion Gap 5 mEq/L Low 8-16 Calcium Level 8.7 mg/dL Normal 8.5-10.1 Ast/Sgot 14 U/L Normal 7-37 Alt/SGPT 23 U/L Normal 12-78 Alkaline Phosphatase 70 U/L Normal 45-117 Bilirubin,Total 0.3 mg/dL Normal 0.2-1.0 Total Protein 6.7 GM/DL Normal 6.4-8.2 Albumin 3.4 GM/DL Normal 3.2-5.2 Albumin/Globulin Ratio 1.0 Low 1.2-2.2 Serum Protein Electrophoresis 09/25/2020 [facility] Albumin % 57.6 % Normal 55.8-66.1 False-6-Trfawwfq % 6.1 % High 2.9-4.9 Jqzmq-6-Pkjgrvmyy % 12.4 % High 7.1-11.8 Lpwh-8-Figdeswqt % 6.5 % Normal 4.7-7.2 Ahpq-1-Pewiicnri % 4.5 % Normal 3.2-6.5 Gamma Globulin % 12.9 % Normal 11.1-18.8 Albumin 3.86 GM/DL Normal 3.29-5.55 Itsjq-5-Tutogsbnz 0.41 GM/DL Normal 0.17-0.41 Kevhd-8-Djrnpamjd 0.83 GM/DL Normal 0.42-0.99 Pmqh-6-Mjmmiysih 0.44 GM/DL Normal 0.28-0.60 Oepe-0-Euyewtlfa 0.30 GM/DL Normal 0.19-0.55 Gamma Globulins 0.86 GM/DL Normal 0.65-1.58 Total Protein 6.7 GM/DL Normal 6.4-8.2 Spep Interpretation SEE COMMENT Normal 2 Spep Pathologist Review REV'D BY O ADJAP <SEE NOTE> Normal 3 Laboratory test finding 09/25/2020 [facility] Thyroid Stimulating Hormone 1.060 uIU/ML Normal 0.358-3.740 Vitamin B12 & Folate 09/25/2020 [facility] Vitamin B12 Level 454 pg/mL Normal 4 Folate > 24.0 NG/ML Normal 5 Laboratory test finding 09/25/2020 [facility] Syphilis NONREACTIVE Normal Nonreactive Rheumatoid Factor Quant < 10.0 IU/mL Normal <15.0 Lupus Type Anticoagulant Scree 09/25/2020 [facility] PTT Lupus Type Anticoag Screen 2.0 High 0-1.2 6 Laboratory test finding 09/25/2020 [facility] Lupus Confirm Stago 1.43 High 0.00-1.20 7 Hemoglobin A1c 09/25/2020 [facility] Hemoglobin A1c 5.9 % Normal 8 Estimated Average Glucose 123 mg/dL High 60-110 CBC With Differential 09/25/2020 [facility] White Blood Count 5.2 10 Normal 4.0-10.0 Red Blood Count 3.98 10 Low 4.00-5.40 Hemoglobin 12.2 g/dL Normal 12.0-15.5 Hematocrit 37.4 % Normal 36.0-47.0 Mean Corpuscular Volume 94.0 fl Normal 80.0-96.0 Mean Corpuscular Hemoglobin 30.7 pg Normal 27.0-33.0 Mean Corpuscular HGB Conc 32.6 g/dL Normal 32.0-36.5 Red Cell Distribution Width 13.1 % Normal 11.5-14.5 Platelet Count, Automated 307 10 Normal 150-450 Neutrophils % 46.3 % Normal 36.0-66.0 Lymph % 40.7 % Normal 24.0-44.0 Esmeralda % 7.2 % Normal 2.0-8.0 Eos % 3.7 % High 0.0-3.0 Baso % 1.7 % High 0.0-1.0 Immature Granulocyte % 0.4 % Normal 0-3.0 Nucleated Red Blood Cell % 0.0 % Normal 0-0 Neutrophils # 2.4 10 Normal 1.5-8.5 Lymph # 2.1 10 Normal 1.5-5.0 Esmeralda # 0.4 10 Normal 0.0-0.8 Eos # 0.2 10 Normal 0.0-0.5 Baso # 0.1 10 Normal 0.0-0.2 Laboratory test finding 09/25/2020 [facility] Erythrocyte Sedimentation Rate 29 mm/hr Normal 0-30 Lupus Screen Confirmation 09/25/2020 [facility] Hexagonal Phase Phospholipid 0 sec Normal 0-11 Comment For Hexagonal Confirm1 (SEE NOTE) Normal . 9 Vitamin E Level 09/25/2020 [facility] Vitamin E(Alpha Tocopherol) 8.3 mg/L Normal 7.0-25.1 Vitamin E(Gamma Tocopherol) 1.1 mg/L Normal 0.5-5.5 10 Anti-Neutrophil Cytoplasmic AB 09/25/2020 [facility] Cytoplasmic Neutrop AB Anca-C <1:20 titer Normal Neg:<1:20 Perinuclear AB Anca-P <1:20 titer Normal Neg:<1:20 11 Anca-Atypical <1:20 titer Normal Neg:<1:20 12 Laboratory test finding 09/25/2020 [facility] Vitamin B1 Level Whole Blood 144.9 nmol/L Normal 66.5-200.0 13 Vitamin B6,Pyridoxal Phosphate 10.2 ug/L Normal 2.0-32.8 14 Antinuclear Antibodies 09/25/2020 [facility] Antinuclear Antibodies Direct Negative Normal Negative Sjogren's Anti SS-A <0.2 AI Normal 0.0-0.9 Sjogren's Anti SS-B <0.2 AI Normal 0.0-0.9 Anti Double Strand Dna Ne 09/25/2020 [facility] Anti DS-Dna AB Negative Normal Negative 1 Units are mL/min/1.73 m2 Chronic Kidney Disease Staging per NKF: Stage I & II GFR >=60 Normal to Mildly Decreased Stage III GFR 30-59 Moderately Decreased Stage IV GFR 15-29 Severely Decreased Stage V GFR <15 Very Little GFR Left ESRD GFR <15 on [employer] 2 NO M-SPIKE(S)NOTED. 3 REV'D BY O MANJINDER 4 VITAMIN B12 NORMAL RANGE NORMAL 247 - 911 PG/ML INDETERMINATE 211 - 246 PG/ML DEFICIENT LESS THAN 211 PG/ML 5 FOLATE NORMAL RANGE NORMAL GREATER THAN 5.4 NG/ML INDETERMINATE 3.4-5.4 NG/ML DEFICIENT LESS THAN 3.4 NG/ML 6 RESULT IS 1.2 OR GREATER, FURTHER TESTING INDICATED. SEE RESULTS BELOW. INTERPRETATION This test is to screen those individuals that may have a circulating lupus anticoagulant. If the LA Screen test is normal, and/or the LA Confirm test is normal, the presence of a Lupus Anticoagulant (LA) is unlikely, but does not completely exclude LA-like activity. If both tests or the LA Confirm test are elevated, the specimen will be reflexed to a hexagonal phase phospholipid test through our reference laboratory for confirmation. A positive hexagonal phase phospholipid is indicative of LA. A negative hexagonal phase phospholipid test may indicate a coagulation factor deficiency or a specific inhibitor. 7 NORMALIZED RATIO IS EQUAL TO OR GREATER THAN 1.20 LA IS PRESENT. SPECIMEN WILL BE SENT TO [facility], [address] [place], [place]. [address] REFERE [facility] FOR CONFIRMATION. 8 REFERENCE RANGES: <=5.6% NORMAL 5.7-6.4% SUGGESTS IMPAIRED GLUCOSE META BOLISM/PREDIABETIC >= 6.5% ABNORMAL 9 . Results do not indicate the presence of a Lupus Anticoagulant: abnormal high screening results (PTT-LA, dRVVT, mixing studies), may be due to medication (heparin, warfarin, aspirin), Factor inhibitors, anticardiolipin antibodies, or poor specimen integrity. Performed at: [address] [id number] [address]: Gay Leyva MD, Phone: [phone] Reference intervals for alph a and gamma-tocopherol determined from National Health and Nutrition Examination Survey, 7037-1811. Individuals with alpha-tocopherol levels less than 5.0 mg/L are considered vitamin E deficient. 11 The presence of positive flu orescence exhibiting P-ANCA or C-ANCA patterns alone is not specific for the diagnosis of Bright's Granulomatosis (WG) or microscopic polyangiitis. Decisions about treatment should not be based solely on ANCA IFA results. The International ANCA Group Consensus recommends follow up testing of positive sera with both NV- 3 and MPO-ANCA enzyme immunoassays. As m any as 5% serum samples are positive only by EIA. Ref. AM J Clin Pathol 1999;111:507-513. 12 The atypical pANCA pattern h as been observed in a significant percentage of patients with ulcerative colitis, primary sclerosing cholangitis and autoimmune hepatitis. 13 Specimen Comment: Test(s) 07 0141-Vitamin E(Alpha Tocopherol); 075153- Specimen Comment: Vitamin E(Gamma Tocopherol); 521594-Owtessx B6; 139928- Specimen Comment: Vit. B1, Whole Blood Specimen Comment: was developed and its performance characteristics Specimen Comment: determined by [employer]. It has not been cleared or approved Specimen Comment: by the Food and Drug Administration. 14 Specimen Comment: Test(s) 07 0141-Vitamin E(Alpha Tocopherol); 931137- Specimen Comment: Vitamin E(Gamma Tocopherol); 180344-Igmvckh B6; 262540- Specimen Comment: Vit. B1, Whole Blood Specimen Comment: was developed and its performance characteristics Specimen Comment: determined by [employer]. It has not been cleared or approved Specimen Comment: by the Food and Drug Administration. Procedures Date Code Description Status 11/26/2020 58326 EEG Recording Awake & Asleep Com pleted 11/26/2020 75546 EEG Recording Awake & Asleep Com pleted 08/27/2020 96012 Nerve Conduction 11-12 Studies C ompleted 08/27/2020 39034 Needle Electromyography Complete , Five Or More Muscles Studied Completed 08/27/2020 71353 Needle Electromyography Complete , Five Or More Muscles Studied Completed 08/20/2020 45457 Nerve Conduction 9-10 Studies Co mpleted 08/20/2020 33625 Needle Electromyography Complete , Five Or More Muscles Studied Completed 08/20/2020 19877 Needle Electromyography Complete , Five Or More Muscles Studied Completed 08/18/2020 39122 Sympathetic Skin Responses Compl eted 08/18/2020 02300 Test Autonomic Nervous System, C ardiovagal Innervation Completed 08/18/2020 71583 Artery Study Extremity Mult Leve ls Bilateral Completed 08/18/2020 26716 Artery Study Extremity Mult Leve ls Bilateral Completed 08/16/2020 92334 Office/Outpatient New Moderate M DM 45-59 Minutes Completed Medical Devices Description No Information Available Encounters Type Date Location Provider Dx Diagnosis Office Visit 08/16/2020 2:30p Main office - [place] Diana Gayle M.D. M79.605 Pain in left leg M79.604 Pain in right leg M79.601 Pain in right arm M79.602 Pain in left arm R25.8 Other abnormal involuntary m ovements M54.5 Low back pain R41.3 Other amnesia M54.2 Cervicalgia M62.9 Disorder of muscle, unspecif ied Assessments Date Code Description Provider 11/26/2020 R41.3 Other amnesia Dayne Ochoa 11/26/2020 R41.3 Other amnesia EEG 11/26/2020 R25.1 Tremor, unspecified Diana NaliniDayne duvallDPaulo 11/26/2020 R25.1 Tremor, unspecified EEG 08/27/2020 M79.605 Pain in left leg Catrachita Sheppard 08/27/2020 M79.604 Pain in right leg Dayne Sheppard 08/27/2020 M54.89 Other dorsalgia Harris Foy M.D. 08/27/2020 R20.2 Paresthesia of skin Harris Foy M.D. 08/20/2020 M62.9 Disorder of muscle, unspecified Harris Foy M.D. 08/20/2020 G56.01 Carpal tunnel syndrome, right up per limb Dayne SheppardDPaulo 08/20/2020 G56.02 Carpal tunnel syndrome, left upp er limb Harris Foy M.D. 08/18/2020 G60.8 Other hereditary and idiopathic neuropathies Dayne OchoaDPaulo 08/18/2020 G60.8 Other hereditary and idiopathic neuropathies Ans/VS 08/18/2020 I70.223 Atherosclerosis of n ative arteries of extremities with rest pain, bilateral legs Diana Gayle, M.DPaulo 08/18/2020 I70.223 Atherosclerosis of n ative arteries of extremities with rest pain, bilateral legs Ans/VS 08/18/2020 I70.228 Atherosclerosis of n ative arteries of extremities with rest pain, other extremity Josefa Ochoa.DPaulo 08/18/2020 I70.228 Atherosclerosis of n ative arteries of extremities with rest pain, other extremity Ans/VS 08/16/2020 M79.605 Pain in left leg Diana Nalini, M .D. 08/16/2020 M79.604 Pain in right leg Diana Nalini, M.D. 08/16/2020 M79.601 Pain in right arm Diana Gayle, M.D. 08/16/2020 M79.602 Pain in left arm Diana Gayle, M .D. 08/16/2020 R25.8 Other abnormal involuntary movem ents Diana Gayle M.DPaulo 08/16/2020 M54.5 Low back pain Diana Gayle M. DPaulo 08/16/2020 R41.3 Other amnesia Diana Gayle M. DPaulo 08/16/2020 M54.2 Cervicalgia Diana Gayle M. DPaulo 08/16/2020 M62.9 Disorder of muscle, unspecified Diana Gayle M.D. Plan of Treatment Future Appointment(s):* 12/17/2020 2:00 pm - Amisha Raymond P.A.-C. at [facility] Functional Status Description No Information Available Mental Status Description No Information Available Referrals Description No Information Available
--- OUTSIDE RECORDS SUMMARY | 2021-01-22 11:41 | CCD | Continuity of Care Document ---
Author Author Elena CARMONA P.A.-C. Organization Unknown Address [address] [place] [address] Phone [phone] Care Team Providers Care Brazing Machine Feeder Name Role Phone Ivon Faye DO AUTM [phone] Problems Description No Information Available Social History Type Date Description Comments Sex Unknown Allergies, Adverse Reactions, Alerts Description No Information Available Medications Description No Information Available Immunizations Description No Information Available Vital Signs Description No Information Available Results Test Acquired Date Facility Test Result H/L Range Note Comprehensive Metabolic Profil 09/25/2020 [facility] Glucose, Fasting 86 mg/dL Normal 70-100 Blood [...] 1.0 Low 1.2-2.2 Serum Protein Electrophoresis 09/25/2020 [facility] Albumin % 57.6 % Normal 55.8-66.1 Uunvc-2-Hpeiyywu % 6.1 % High 2.9-4.9 Kuqss-7-Kyftsamfr % 12.4 % High 7.1-11.8 Vrff-1-Bcptcpznc % 6.5 % Normal 4.7-7.2 Mget-4-Kqrafriuv % 4.5 % Normal 3.2-6.5 Gamma Globulin % 12.9 % Normal 11.1-18.8 Albumin 3.86 GM/DL Normal 3.29-5.55 Ojycv-4-Cliexruhu 0.41 GM/DL Normal 0.17-0.41 Nemgm-5-Jfafzxphs 0.83 GM/DL Normal 0.42-0.99 Ibfg-2-Azwyobxsv 0.44 GM/DL Normal 0.28-0.60 Tius-1-Hzocyjgau 0.30 GM/DL Normal 0.19-0.55 Gamma Globulins 0.86 GM/DL Normal 0.65-1.58 Total Protein 6.7 GM/DL Normal 6.4-8.2 Spep Interpretation SEE COMMENT Normal 2 Spep Pathologist Review REV'D BY O ADJAP <SEE NOTE> Normal 3 Laboratory test finding 09/25/2020 [facility] Thyroid Stimulating Hormone 1.060 uIU/ML Normal 0.358-3.740 Vitamin B12 & Folate 09/25/2020 [facility] Vitamin B12 Level 454 pg/mL Normal 4 Folate > 24.0 NG/ML Normal 5 Laboratory test finding 09/25/2020 [facility] Syphilis NONREACTIVE Normal Nonreactive Rheumatoid Factor Quant < 10.0 IU/mL Normal <15.0 Lupus Type Anticoagulant Scree 09/25/2020 [facility] PTT Lupus Type Anticoag Screen 2.0 High 0-1.2 6 Laboratory test finding 09/25/2020 [facility] Lupus Confirm Stago 1.43 High 0.00-1.20 7 Hemoglobin A1c 09/25/2020 [facility] Hemoglobin A1c 5.9 % Normal 8 Estimated Average Glucose 123 mg/dL High 60-110 CBC With Differential 09/25/2020 [facility] White Blood Count 5.2 10 Normal 4.0-10.0 [...] 36.0-66.0 Lymph % 40.7 % Normal 24.0-44.0 [place] % 7.2 % Normal 2.0-8.0 Eos % 3.7 % High 0.0-3.0 Baso % 1.7 % High 0.0-1.0 Immature Granulocyte % 0.4 % Normal 0-3.0 Nucleated Red Blood Cell % 0.0 % Normal 0-0 Neutrophils # 2.4 10 Normal 1.5-8.5 Lymph # 2.1 10 Normal 1.5-5.0 [place] # 0.4 10 Normal 0.0-0.8 Eos # 0.2 10 Normal 0.0-0.5 Baso # 0.1 10 Normal 0.0-0.2 Laboratory test finding 09/25/2020 [facility] Erythrocyte Sedimentation Rate 29 mm/hr Normal 0-30 Lupus Screen Confirmation 09/25/2020 [facility] Hexagonal Phase Phospholipid 0 sec Normal 0-11 Comment For Hexagonal Confirm1 (SEE NOTE) Normal . 9 Vitamin E Level 09/25/2020 [facility] Vitamin E(Alpha Tocopherol) 8.3 mg/L Normal 7.0-25.1 Vitamin E(Gamma Tocopherol) 1.1 mg/L Normal 0.5-5.5 10 Anti-Neutrophil Cytoplasmic AB 09/25/2020 [facility] Cytoplasmic Neutrop AB Anca-C <1:20 titer Normal Neg:<1:20 Perinuclear AB Anca-P <1:20 titer Normal Neg:<1:20 11 Anca-Atypical <1:20 titer Normal Neg:<1:20 12 Laboratory test finding 09/25/2020 [facility] Vitamin B1 Level Whole Blood 144.9 nmol/L Normal 66.5-200.0 13 Vitamin B6,Pyridoxal Phosphate 10.2 ug/L Normal 2.0-32.8 14 Antinuclear Antibodies 09/25/2020 [facility] Antinuclear Antibodies Direct Negative Normal Negative Sjogren's Anti SS-A <0.2 AI Normal 0.0-0.9 Sjogren's Anti SS-B <0.2 AI Normal 0.0-0.9 Anti Double Strand Dna Ne 09/25/2020 [facility] DS-Dna AB Negative Normal Negative 1 Units are mL/min/1.73 m2 Chronic Kidney Disease Staging per NKF: Stage I & II GFR >=60 Normal to Mildly Decreased Stage III GFR 30-59 Moderately Decreased Stage IV GFR 15-29 Severely Decreased Stage V GFR <15 Very Little GFR Left ESRD GFR <15 on CONTENT EDITOR 2 NO M-SPIKE(S)NOTED. 3 REV'D BY O [...] IS PRESENT. SPECIMEN WILL BE SENT TO [facility], [address] [place], [place]. [address] REFERE [facility] FOR CONFIRMATION. 8 REFERENCE RANGES: <=5.6% NORMAL 5.7-6.4% SUGGESTS IMPAIRED GLUCOSE META BOLISM/PREDIABETIC >= 6.5% ABNORMAL 9 . Results do not indicate the presence of a Lupus Anticoagulant: abnormal high screening results (PTT-LA, dRVVT, mixing studies), may be due to medication (heparin, warfarin, aspirin), Factor inhibitors, anticardiolipin antibodies, or poor specimen integrity. Performed at: [address] [id number] Inspector: Gay Leyva MD, Phone: [phone] Reference intervals for alph a and gamma-tocopherol determined from National Health and Nutrition Examination Survey, 8733-3693. Individuals with alpha-tocopherol levels less than 5.0 [...] up testing of positive sera with both MN- 3 and MPO-ANCA enzyme immunoassays. As m any as 5% serum samples are positive only by EIA. Ref. AM J Clin Pathol 1999;111:507-513. 12 The atypical pANCA pattern h as been observed in a significant percentage of patients with ulcerative colitis, primary sclerosing cholangitis and autoimmune hepatitis. 13 Specimen Comment: Test(s) 07 0141-Vitamin E(Alpha Tocopherol); 906221- Specimen Comment: Vitamin E(Gamma Tocopherol); 153841-Eqpmxyp B6; 640810- Specimen Comment: Vit. B1, Whole Blood Specimen Comment: was developed and its performance characteristics Specimen Comment: determined by [employer]. It has not been cleared or approved Specimen Comment: by the Food and Drug Administration. 14 Specimen Comment: Test(s) 07 0141-Vitamin E(Alpha Tocopherol); 965995- Specimen Comment: Vitamin E(Gamma Tocopherol); 229782-Zyenoeo B6; 237371- Specimen Comment: Vit. B1, Whole Blood Specimen Comment: was developed and its performance characteristics Specimen Comment: determined by [facility]. It has not been cleared or approved Specimen Comment: by the Food and Drug Administration. Procedures Date Code Description Status 11/26/2020 24754 EEG Recording Awake & Asleep Com pleted 11/26/2020 57155 EEG Recording Awake & Asleep Com pleted 08/27/2020 96229 Nerve Conduction 11-12 Studies C ompleted 08/27/2020 32803 Needle Electromyography Complete , Five Or More Muscles Studied Completed 08/27/2020 22471 Needle Electromyography Complete , Five Or More Muscles Studied Completed 08/20/2020 46697 Nerve Conduction 9-10 Studies Co mpleted 08/20/2020 89110 Needle Electromyography Complete , Five Or More Muscles Studied Completed 08/20/2020 78398 Needle Electromyography Complete , Five Or More Muscles Studied Completed 08/18/2020 55334 Sympathetic Skin Responses Compl eted 08/18/2020 90929 Test Autonomic Nervous System, C ardiovagal Innervation Completed 08/18/2020 73732 Artery Study Extremity Mult Leve ls Bilateral Completed 08/18/2020 90507 Artery Study Extremity Mult Leve ls Bilateral Completed 08/16/2020 78302 Office/Outpatient New Moderate M DM 45-59 Minutes Completed Medical Devices Description No Information Available Encounters Type Date Location Provider Dx Diagnosis Office Visit 08/16/2020 2:30p Main office - [facility] Gayle M.D. M79.605 Pain in left leg M79.604 Pain in right leg M79.601 Pain in right arm M79.602 Pain in left arm R25.8 Other abnormal involuntary m ovements M54.5 Low back pain R41.3 Other amnesia M54.2 Cervicalgia M62.9 Disorder of muscle, unspecif ied Assessments Date Code Description Provider 12/17/2020 G25.0 Essential tremor Malinda Dyson.ACornelioCPaulo 12/17/2020 M54.2 Cervicalgia Malinda Dyson.A.-CPaulo 12/17/2020 G56.03 Carpal tunnel syndrome, bilatera l upper limbs Malinda Dyson.A.-CPaulo 12/17/2020 M54.5 Low back pain Malinda Dyson.APaulo-CPaulo 12/17/2020 R26.81 Unsteadiness on feet Juvenal Mackey-C. 11/26/2020 R41.3 Other amnesia Diana Nalini, M. D. 11/26/2020 R41.3 Other amnesia EEG 11/26/2020 R25.1 Tremor, unspecified Diana Nalini , M.D. 11/26/2020 R25.1 Tremor, unspecified EEG 08/27/2020 M79.605 Pain in left leg HarrisJosefa Lugo.D . 08/27/2020 M79.604 Pain in right leg Harris Foy, M. D. 08/27/2020 M54.89 Other dorsalgia Josefa Sheppard.DPaulo 08/27/2020 R20.2 Paresthesia of skin Dayne SheppardDPaulo 08/20/2020 M62.9 Disorder of muscle, unspecified Josefa Sheppard.DPaulo 08/20/2020 G56.01 Carpal tunnel syndrome, right up per limb Josefa Sheppard.DPaulo 08/20/2020 G56.02 Carpal tunnel syndrome, left upp er limb Dayne SheppardDPaulo 08/18/2020 G60.8 Other hereditary and idiopathic neuropathies Diana Nalini, M.DPaulo 08/18/2020 G60.8 Other hereditary and idiopathic neuropathies Ans/VS 08/18/2020 I70.223 Atherosclerosis of n ative arteries of extremities with rest pain, bilateral legs Diana Nalini, M.D. 08/18/2020 I70.223 Atherosclerosis of n ative arteries of extremities with rest pain, bilateral legs Ans/VS 08/18/2020 I70.228 Atherosclerosis of n ative arteries of extremities with rest pain, other extremity Diana Nalini, M.D. 08/18/2020 I70.228 Atherosclerosis of n ative arteries of extremities with rest pain, other extremity Ans/VS 08/16/2020 M79.605 Pain in left leg Diana Nalini, M .D. 08/16/2020 M79.604 Pain in right leg Diana Nalini, M.D. 08/16/2020 M79.601 Pain in right arm Diana Nalini, M.D. 08/16/2020 M79.602 Pain in left arm Diana Nalini, M .D. 08/16/2020 R25.8 Other abnormal involuntary movem ents Diana Gyale M.D. 08/16/2020 M54.5 Low back pain Dayne Ochoa 08/16/2020 R41.3 Other amnesia Dayne Ochoa 08/16/2020 M54.2 Cervicalgia Dayne Ochoa 08/16/2020 M62.9 Disorder of muscle, unspecified Diana Gayle M.D. Plan of Treatment No Information Available Functional Status Description No Information Available Mental Status Description No Information Available Referrals Description No Information Available
--- OUTSIDE RECORDS SUMMARY | 2021-01-22 11:41 | CCD | Continuity of Care Document ---
Author Author Elena HADDAD DO Organization Unknown Address [address] [facility] [address] [place] [address] Phone [phone] Care Team Providers Care Hydraulic Jack Mechanic Name Role Phone Wilner Haddad DO AUTM [phone] Problems Description No Information Available Social History Type Date Description Comments Sex Unknown ETOH Use Rarely consumes alcohol Tobacco Use Start: Unknown Patient has never smoked Allergies, Adverse Reactions, Alerts Active Allergies Criticality Reaction | Severity Comments Date Bee Sting Unable to assess criticality 01/18/2021 Medications Active Medications SIG Qnty Indications Ordering Provide r Date Lopressor 50mg Tablets take one tablet by mouth twice a day 60tabs Wilner Haddad DO 2020 Methotrexate 2.5mg Tablets 8 tabs every thursday 32tabs Wilner Haddad DO 01/19/20 21 Leucovorin Calcium 5mg Tablets 1 Daily 90tabs Wilner Haddad DO 01/18/2021 Venlafaxine HCL ER 225mg Tablets E R 24HR 1 by mouth every day 90tabs Wilner Haddad DO 01/18 Spironolactone 25mg Tablets 1 by mouth every day 90tabs Wilner Haddad DO 01/19/20 21 Triamcinolone Acetonide 0.1% Cream as directed on rash bid times a day. 15gm Wilner waterman DO 01/18/2021 Hydrocodone-Acetaminophen 7.5-325mg Tablets 11 q8h/prn 90tabs Wilner Haddad DO 12/31 Immunizations Description No Information Available Vital Signs Date Vital Result Comment 01/18/2021 10:33am BP Systolic 138 mmHg BP Diastolic 78 mmHg Heart Rate 80 /min Height 63 inches 5'3" Weight 189.12 lb O2 % BldC Oximetry 99 % BMI (Body Mass Index) 33.5 kg/m2 Results Test Acquired Date Facility Test Result H/L Range Note Laboratory test finding 01/18/2021 [place] Learning Technologist tari randolph Service Order Clerk: Dr Segundo Haddad [place], [place] [id number] [phone] TSH <pending> Procedures Description No Information Available Medical Devices Description No Information Available Encounters Description No Information Available Assessments Date Code Description Provider 01/18/2021 R03.0 Elevated blood-press ure reading without diagnosis of hypertension Wilner Haddad DO 01/18/2021 E66.09 Obesity Wilner vasquez DO 01/18/2021 Z00.00 Encounter for genera l adult medical examination without abnormal findings Wilner Haddad DO Plan of Treatment 01/18/2021 - Wilner Haddad DO* R03.0 Elevated blood-pressure reading without diagnosis of hypertension * E66.09 Obesity * Z00.00 Encounter for general adult medical examination without abnormal findings * All * New Medication:* Lopressor 50 mg - take one tablet by mouth twice a day * Methotrexate 2.5 mg - 8 tabs every thursday * Leucovorin Calcium 5 mg - 1 Daily * Venlafaxine HCL ER 225 mg - 1 by mouth every day * Spironolactone 25 mg - 1 by mouth every day * Triamcinolone Acetonide 0.1 % - as directed on rash bid times a day. * Hydrocodone-Acetaminophen 7.5-325 mg - 11 q8h/prn * - Functional Status Description No Information Available Mental Status Description No Information Available Referrals Description No Information Available
--- OUTSIDE RECORDS SUMMARY | 2021-01-22 11:41 | CCD | Continuity of Care Document ---
Author Author Elena RAYMOND P.A.-C. Organization Unknown Address [address] [place] [address] Phone [phone] Care Team Providers Care Tobacco Sieve Operator Name Role Phone Ivon Faye DO AUTM [phone] Problems Description No Information Available Social History Type Date Description Comments Sex Unknown Allergies, Adverse Reactions, Alerts Active Allergies Reaction Severity Comments Date Amoxicillin 12/18/2020 Bee Sting 12/18/2020 Medications Description No Information Available Immunizations Description No Information Available Vital Signs Date Vital Result Comment 12/17/2020 6:10am BP Systolic 110 mmHg BP Diastolic 78 mmHg Heart Rate 76 /min Respiratory Rate 16 /min Results Test Acquired Date Facility Test Result H/L Range Note Comprehensive Metabolic Profil 09/25/2020 [facility] Glucose, Fasting 86 mg/dL Normal 70-100 [...] 1.0 Low 1.2-2.2 Serum Protein Electrophoresis 09/25/2020 [facility] Albumin % 57.6 % Normal 55.8-66.1 Rgwos-6-Jxdytlbj % 6.1 % High 2.9-4.9 Xdupr-4-Stawapuaa % 12.4 % High 7.1-11.8 Rrhj-2-Lxgvvymru % 6.5 % Normal 4.7-7.2 Xurz-9-Bovrzkgeb % 4.5 % Normal 3.2-6.5 Gamma Globulin % 12.9 % Normal 11.1-18.8 Albumin 3.86 GM/DL Normal 3.29-5.55 Mcxpw-8-Uhjipywcj 0.41 GM/DL Normal 0.17-0.41 Wauqx-8-Ajgnxttbw 0.83 GM/DL Normal 0.42-0.99 Zlvr-6-Iblfvjhce 0.44 GM/DL Normal 0.28-0.60 Rgca-3-Bzmjzhlpw 0.30 GM/DL Normal 0.19-0.55 Gamma Globulins 0.86 GM/DL Normal 0.65-1.58 Total Protein 6.7 GM/DL Normal 6.4-8.2 Spep Interpretation SEE COMMENT Normal 2 Spep Pathologist Review REV'D BY O ADJAP <SEE NOTE> Normal 3 Laboratory test finding 09/25/2020 [facility] Thyroid Stimulating Hormone 1.060 uIU/ML Normal 0.358-3.740 Vitamin B12 & Folate 09/25/2020 [facility] Vitamin B12 Level 454 pg/mL Normal 4 Folate > 24.0 NG/ML Normal 5 Laboratory test finding 09/25/2020 [facility] Syphilis NONREACTIVE Normal Nonreactive Rheumatoid Factor Quant < 10.0 IU/mL Normal <15.0 Lupus Type Anticoagulant Scree 09/25/2020 [facility] PTT Lupus Type Anticoag Screen 2.0 High 0-1.2 6 Laboratory test finding 09/25/2020 [facility] Lupus Confirm Stago 1.43 High 0.00-1.20 7 Hemoglobin A1c 09/25/2020 [facility] Hemoglobin A1c 5.9 % Normal 8 Estimated Average Glucose 123 mg/dL High 60-110 CBC With Differential 09/25/2020 [facility] White Blood Count 5.2 10 Normal [...] 36.0-66.0 Lymph % 40.7 % Normal 24.0-44.0 [place] % 7.2 % Normal 2.0-8.0 Eos % 3.7 % High 0.0-3.0 Baso % 1.7 % High 0.0-1.0 Immature Granulocyte % 0.4 % Normal 0-3.0 Nucleated Red Blood Cell % 0.0 % Normal 0-0 Neutrophils # 2.4 10 Normal 1.5-8.5 Lymph # 2.1 10 Normal 1.5-5.0 [place] # 0.4 10 Normal 0.0-0.8 Eos # 0.2 10 Normal 0.0-0.5 Baso # 0.1 10 Normal 0.0-0.2 Laboratory test finding 09/25/2020 [facility] Erythrocyte Sedimentation Rate 29 mm/hr Normal 0-30 Lupus Screen Confirmation 09/25/2020 [facility] Hexagonal Phase Phospholipid 0 sec Normal 0-11 Comment For Hexagonal Confirm1 (SEE NOTE) Normal . 9 Vitamin E Level 09/25/2020 [facility] Vitamin E(Alpha Tocopherol) 8.3 mg/L Normal 7.0-25.1 Vitamin E(Gamma Tocopherol) 1.1 mg/L Normal 0.5-5.5 10 Anti-Neutrophil Cytoplasmic AB 09/25/2020 [facility] Cytoplasmic Neutrop AB Anca-C <1:20 titer Normal Neg:<1:20 Perinuclear AB Anca-P <1:20 titer Normal Neg:<1:20 11 Anca-Atypical <1:20 titer Normal Neg:<1:20 12 Laboratory test finding 09/25/2020 [facility] Vitamin B1 Level Whole Blood 144.9 nmol/L Normal 66.5-200.0 13 Vitamin B6,Pyridoxal Phosphate 10.2 ug/L Normal 2.0-32.8 14 Antinuclear Antibodies 09/25/2020 [facility] Antinuclear Antibodies Direct Negative Normal Negative Sjogren's Anti SS-A <0.2 AI Normal 0.0-0.9 Sjogren's Anti SS-B <0.2 AI Normal 0.0-0.9 Anti Double Strand Dna Ne 09/25/2020 [facility] Anti DS-Dna AB Negative Normal Negative 1 Units are mL/min/1.73 m2 Chronic Kidney Disease Staging per NKF: Stage I & II GFR >=60 Normal to Mildly Decreased Stage III GFR 30-59 Moderately Decreased Stage IV GFR 15-29 Severely Decreased Stage V GFR <15 Very Little GFR Left ESRD GFR <15 on ORGANIZATIONAL DEVELOPMENT SPECIALIST 2 NO M-SPIKE(S)NOTED. 3 REV'D BY Claudia DUNBAR 4 VITAMIN B12 NORMAL RANGE NORMAL 247 [...] IS PRESENT. SPECIMEN WILL BE SENT TO [facility], [address] [place]. [address] REFERE [facility] FOR CONFIRMATION. 8 REFERENCE RANGES: <=5.6% NORMAL 5.7-6.4% SUGGESTS IMPAIRED GLUCOSE META BOLISM/PREDIABETIC >= 6.5% ABNORMAL 9 . Results do not indicate the presence of a Lupus Anticoagulant: abnormal high screening results (PTT-LA, dRVVT, mixing studies), may be due to medication (heparin, warfarin, aspirin), Factor inhibitors, anticardiolipin antibodies, or poor specimen integrity. Performed at: [address] [id number] [employer] Tester: Gay Leyva MD, Phone: [phone] Reference intervals for alph a and gamma-tocopherol determined from National Health and Nutrition Examination Survey, 0235-2490. Individuals with alpha-tocopherol levels less than 5.0 [...] up testing of positive sera with both CT- 3 and MPO-ANCA enzyme immunoassays. As m any as 5% serum samples are positive only by EIA. Ref. AM J Clin Pathol 1999;111:507-513. 12 The atypical pANCA pattern h as been observed in a significant percentage of patients with ulcerative colitis, primary sclerosing cholangitis and autoimmune hepatitis. 13 Specimen Comment: Test(s) 07 0141-Vitamin E(Alpha Tocopherol); 733023- Specimen Comment: Vitamin E(Gamma Tocopherol); 446519-Zlffpdk B6; 281022- Specimen Comment: Vit. B1, Whole Blood Specimen Comment: was developed and its performance characteristics Specimen Comment: determined by [employer]. It has not been cleared or approved Specimen Comment: by the Food and Drug Administration. 14 Specimen Comment: Test(s) 07 0141-Vitamin E(Alpha Tocopherol); 001768- Specimen Comment: Vitamin E(Gamma Tocopherol); 079946-Soeygrz B6; 401123- Specimen Comment: Vit. B1, Whole Blood Specimen Comment: was developed and its performance characteristics Specimen Comment: determined by [facility]. It has not been cleared or approved Specimen Comment: by the Food and Drug Administration. Procedures Date Code Description Status 12/17/2020 64367 Office/Outpatient Established Mo d MDM 30-39 Min Completed 11/26/2020 87889 EEG Recording Awake & Asleep Com pleted 11/26/2020 80339 EEG Recording Awake & Asleep Com pleted 08/27/2020 50994 Nerve Conduction 11-12 Studies C ompleted 08/27/2020 62081 Needle Electromyography Complete , Five Or More Muscles Studied Completed 08/27/2020 95784 Needle Electromyography Complete , Five Or More Muscles Studied Completed 08/20/2020 95048 Nerve Conduction 9-10 Studies Co mpleted 08/20/2020 00702 Needle Electromyography Complete , Five Or More Muscles Studied Completed 08/20/2020 02269 Needle Electromyography Complete , Five Or More Muscles Studied Completed 08/18/2020 18803 Sympathetic Skin Responses Compl eted 08/18/2020 96965 Test Autonomic Nervous System, C ardiovagal Innervation Completed 08/18/2020 92218 Artery Study Extremity Mult Leve ls Bilateral Completed 08/18/2020 06767 Artery Study Extremity Mult Leve ls Bilateral Completed 08/16/2020 87323 Office/Outpatient New Moderate M DM 45-59 Minutes Completed Medical Devices Description No Information Available Encounters Type Date Location Provider Dx Diagnosis Office Visit 12/17/2020 2:00p Main office - Zavalla Amsiha acuna P.A.-CPaulo G25.0 Essential tremor G56.03 Carpal tunnel syndrome, bila teral upper limbs M54.5 Low back pain R26.81 Unsteadiness on feet Office Visit 08/16/2020 2:30p Main office - [place] Diana Gayle M.D. M79.605 Pain in left leg M79.604 Pain in right leg M79.601 Pain in right arm M79.602 Pain in left arm R25.8 Other abnormal involuntary m ovements M54.5 Low back pain R41.3 Other amnesia M54.2 Cervicalgia M62.9 Disorder of muscle, unspecif ied Assessments Date Code Description Provider 12/17/2020 G25.0 Essential tremor Amisha Raymond P.A.-CPaulo 12/17/2020 G56.03 Carpal tunnel syndrome, bilatera l upper limbs Malinda Dyson.A.-CPaulo 12/17/2020 M54.5 Low back pain Amisha Raymond P.A.-CPaulo 12/17/2020 R26.81 Unsteadiness on feet Brandon MackeyAPaulo-CPaulo 11/26/2020 R41.3 Other amnesia Diana Gayle M. DPaulo 11/26/2020 R41.3 Other amnesia EEG 11/26/2020 R25.1 Tremor, unspecified Diana Nalini , M.DPaulo 11/26/2020 R25.1 Tremor, unspecified EEG 08/27/2020 M79.605 Pain in left leg Catrachita Sheppard 08/27/2020 M79.604 Pain in right leg Dayne Sheppard 08/27/2020 M54.89 Other dorsalgia Harris Foy M.D. 08/27/2020 R20.2 Paresthesia of skin Harris Foy M.D. 08/20/2020 M62.9 Disorder of muscle, unspecified Harris Foy M.D. 08/20/2020 G56.01 Carpal tunnel syndrome, right up per limb Harris Foy M.D. 08/20/2020 G56.02 Carpal tunnel syndrome, left upp er limb Harris Foy M.D. 08/18/2020 G60.8 Other hereditary and idiopathic neuropathies Diana Gayle M.D. 08/18/2020 G60.8 Other hereditary and idiopathic neuropathies Ans/VS 08/18/2020 I70.223 Atherosclerosis of n ative arteries of extremities with rest pain, bilateral legs Diana Gayle M.D. 08/18/2020 I70.223 Atherosclerosis of n ative arteries of extremities with rest pain, bilateral legs Ans/VS 08/18/2020 I70.228 Atherosclerosis of n ative arteries of extremities with rest pain, other extremity Diana Gayle M.D. 08/18/2020 I70.228 Atherosclerosis of n ative arteries of extremities with rest pain, other extremity Ans/VS 08/16/2020 M79.605 Pain in left leg Diana Nalini, M .D. 08/16/2020 M79.604 Pain in right leg Diana Nalini, M.D. 08/16/2020 M79.601 Pain in right arm Diana Nalini, M.D. 08/16/2020 M79.602 Pain in left arm Diana Nalini, M .D. 08/16/2020 R25.8 Other abnormal involuntary movem ents Diana Nalini, M.D. 08/16/2020 M54.5 Low back pain Diana Nalini, M. D. 08/16/2020 R41.3 Other amnesia Diana Gayle, M. D. 08/16/2020 M54.2 Cervicalgia Diana Gayle, M. D. 08/16/2020 M62.9 Disorder of muscle, unspecified Diana Josefa Gayle.Michelle Plan of Treatment Future Appointment(s):* 03/21/2021 11:45 am - Amisha Raymond P.A.-C. at Main office [facility] 12/17/2020 - Amisha Raymond P.A.-C.* G25.0 Essential tremor* Comments:* Mild on exam. She declines additional medications at this time. * G56.03 Carpal tunnel syndrome, bilateral upper limbs* Comments:* She denies paresthesias in the upper extremities. She has weakness. Consider orthopedic referral. * M54.5 Low back pain* Comments:* Follow up with [facility]. * R26.81 Unsteadiness on feet* Comments:* She was advised to use a walker when necessary. ANS report will be forwarded to her PCP and machine clothing man. * Follow up:* 3 months Functional Status Description No Information Available Mental Status Description No Information Available Referrals Description No Information Available
--- OUTSIDE RECORDS SUMMARY | 2021-01-22 11:41 | CCD ---
Author Author [facility] Organization [facility] Address Unknown Phone Unavailable Care Team Providers Care Rim Fire Priming Tool Setter Name Role Phone Kenrick Boyd Unavailable PROBLEMS Type Condition ICD9-CM Code FYR58-BY Code Onset Dates Condition S tatus W/U Status Risk SNOMED Code Notes Problem Rectocele N81.6 Active confirmed 567239428 Problem Urinary retention R33.9 Active confirmed 26 0008650 Problem Symptomatic menopausal or female climacteric states 627.2 Active confirmed 86504688 Problem Candidiasis of vulva and vagina 112.1 Active confi rmed 85743019 Problem 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 Active confirmed 876488039 Problem Vaginitis and vulvovaginitis 616.10 Active confirme d 405512711 ALLERGIES Allergen (clinical drug ingredient) Drug/Non Drug Allergy do cumented on EMR Reaction Allergy Type Onset Date Status erythromycin Erythromycin(ND Code:[address]-69) Stomach cramps Drug Allergy Active amoxicillin Amoxicillin(ND Code:[address]-63) rash Drug Aller gy Active Bees Palpitation, anaphylaxsis Non Drug Allergy Active ENCOUNTERS from 1965 to 2020-12-14 Encounter Location Date Provider Diagnosis [facility] [address] [phone] [place] [address] Nov, Kenrick Boyd Urinary retention R33.9 IMMUNIZATIONS No Information SOCIAL HISTORY Sex Assigned At : Social History Observation Description Sex Assigned At Unknown Language: Question Answer Notes Languages spoken: Pashto Congregational: Question Answer Notes Congregational No sikh beliefs that would impact health care. Alcohol Screening: Question Answer Notes Did you have a drink containing alcohol in the past year? No Points 0 Interpretation Negative REASON FOR REFERRAL No Information VITAL SIGNS Weight 193 lbs Nov, Height 64 in Nov, BMI 33.12 kg/m2 Nov, Heart Rate 83 /min Nov, Respiratory Rate 19 /min Nov, Temperature 96.8 degrees Fahrenheit Nov, Oximetry 99 Nov, Blood pressure systolic 150 mm Hg Nov, Blood pressure diastolic 81 mm Hg Nov, MEDICATIONS Medication SIG (Take, Route, Frequency, Duration) Notes Start Da te End Date Status Biotin 1000 MCG 1 tab(s) p.o. twice a day for 30 day(s) Active prednisoLONE 10 mg 2 tab(s) p.o. three times a day for 5 days for 3 0 day(s) Not-Taking Plaquenil 200 MG 1 tab(s) p.o. twice a day for 10 day(s) Active Flomax 0.4 MG 1 capsule Orally Once a day for 30 day(s) Active Leflunomide 10mg 1 tablet p.o. Once a day for 30 day(s) Not-Taking Wellbutrin 10 mg 1 tab(s) p.o. twice a day for 30 day(s) Not-Taking Spironolactone 25mg 1 tab(s) p.o. once a day for 30 day(s) Active Bactrim DS 800-160 MG 1 tablet Orally as directed- 1 hour prior to cystoscopy Jul, Not-Taking Diflucan 150 MG 1 tablet Orally take one September repe at 1 wk prn for 14 days Jun, Not-Taking Terazol 7 0.4 % 1 application at bedtime ext ernally genital area Once a day for 7 day(s) Jun, Not-Taking Hydrochlorothiazide 12.5 12.5mg 1 tab(s) oral once a day Not-Taking Lisinopril 40 40 mg 1 tab(s) oral once a day Active Flexeril 20 mg 1 tab(s) p.o. at night Active Cymbalta 90mg 1 cap(s) p.o. Once a day for 30 day(s) Not-Taking Vitamin E 400 UNIT 1 capsule p.o. once a day for 30 day(s) Active Xyzal 5 MG 1 tab(s) Orally Once a day for 30 day(s) Active Catheters - as directed 14 fr indwelling soares catheter, exchange every 4 weeks for 30 Days Oct, Not-Taking Potassium 10 meq 1 tab(s) Orally twice a day Not-Taking Fluconazole 200 MG 1 tablet Orally Once for 1 days Jul, Not-Taking Effexor XR 150 MG 1 capsule with food Orally Once a day Active Vitamin D3 Super Strength 1000 UNIT 1 tab(s) Orally once a day Not-Taking Leander Urinary Leg Bag - as directed change weekly for 30 Days Oct, Active PROCEDURES No Information RESULTS No Results REASON FOR VISIT urinary retention MEDICAL (GENERAL) HISTORY Type Description Date Medical History high blood pressure Medical History anxiety Medical History GERD Medical History environmental allergies Medical History fibromyalgia Medical History juvenile RA Dr Amador Surgical History Hysterectomy, partial; ovaries intact Surgical History tonsils/adenoids Surgical History D&Cs x 2 Surgical History 3 back surgeries: L5 S1, 2 fusions, herman iated disc Surgical History gastric bypass Surgical History breast reduction Surgical History trial back surgery 12/13/13 Surgical History Dorsal column simulator 02/20/14 Surgical History TVT 2007 Surgical History cysto Hospitalization History 3 weeks ago sepsis Goals Section No Information Health Concerns No Information MEDICAL EQUIPMENT No Information MENTAL STATUS No Information FUNCTIONAL STATUS No Information ASSESSMENTS Encounter Date Diagnosis Assessment Notes Treatment Notes Treatm ent Clinical Notes Nov, Urinary retention (ICD-10 - R33.9) PVR today is 63 cc. She has not self catheted in a month d/t difficulty with rectocele. Her surgery is on hold d/t multiple personal factors. Discussed she is emptying out today, so we can leave the catheter out, but if she has any problems urinating or starts getting UTI's she can come back in and have a catheter placed with a plug on the end (per pt request). Pt questioning if she needs Flomax, discussed it gets in and out of your system very quickly, she can try coming off it for a few days and see if she notices a difference. F/U in 2 months to recheck. PLAN OF TREATMENT Treatment Notes Assessment Notes Clinical Notes Urinary retention PVR today is 63 cc.S he has not self catheted in a month d/t difficulty with rectocele. Her surgery is on hold d/t multiple personal factors.Discussed she is emptying out today, so we can leave the catheter out, but if she has any problems urinating or starts getting UTI's she can come back in and have a catheter placed with a plug on the end (per pt request).Pt questioning if she needs Flomax, discussed it gets in and out of your system very quickly, she can try coming off it for a few days and see if she notices a difference.F/U in 2 months to recheck. Treatment Notes Test Name Order Date uro PVR (Post Voiding Residual) Bladder Scan 2020-11-29 5 Next Appt Details 2 Months Reason:urinary retention Provider Name:Carmen Cohen, 2021-01-30 6 11:30:00 AM, [address], , [place], [address], Follow Up:2 Monthsurinary retention Insurance Providers Payer Name Payer Address Payer Phone Insured Name Patient Relati onship to Insured Coverage Start Date Coverage End Date [facility] [address] [facility] [id number] [phone] MEG CARDOZA MEDICARE Part A and B [address] [facility] [address] MEG CARDOZA self
--- OUTSIDE RECORDS SUMMARY | 2021-01-22 11:41 | CCD | Continuity of Care Document ---
Author Author Elena ALTAMIRANO Organization Unknown Address [address] [place] [address] Phone [phone] Care Team Providers Care Clinic Administrator Name Role Phone Ivon Faye DO AUTM Problems Description No Information Available Social History Type Date Description Comments Sex Unknown Allergies, Adverse Reactions, Alerts Description No Information Available Medications Description No Information Available Immunizations Description No Information Available Vital Signs Description No Information Available Results Test Acquired Date Facility Test Result H/L Range Note Comprehensive Metabolic Profil 09/25/2020 [facility] with [facility] Glucose, Fasting 86 mg/dL Normal 70-100 [...] 1.0 Low 1.2-2.2 Serum Protein Electrophoresis 09/25/2020 [facility] with [facility] Albumin % 57.6 % Normal 55.8-66.1 Tlvcu-1-Azoqifvy % 6.1 % High 2.9-4.9 Hxmlj-6-Tysprmizy % 12.4 % High 7.1-11.8 Gttu-3-Uylmgynne % 6.5 % Normal 4.7-7.2 Dlyn-8-Rcqngunno % 4.5 % Normal 3.2-6.5 Gamma Globulin % 12.9 % Normal 11.1-18.8 Albumin 3.86 GM/DL Normal 3.29-5.55 Ydkrz-4-Oqakdrqgk 0.41 GM/DL Normal 0.17-0.41 Waatf-0-Tolkilfnu 0.83 GM/DL Normal 0.42-0.99 Boiy-5-Poqnmlmbe 0.44 GM/DL Normal 0.28-0.60 Ayhz-0-Qztepjyjv 0.30 GM/DL Normal 0.19-0.55 Gamma Globulins 0.86 GM/DL Normal 0.65-1.58 Total Protein 6.7 GM/DL Normal 6.4-8.2 Spep Interpretation SEE COMMENT Normal 2 Spep Pathologist Review REV'D BY O ADJAP <SEE NOTE> Normal 3 Laboratory test finding 09/25/2020 [facility] Thyroid Stimulating Hormone 1.060 uIU/ML Normal 0.358-3.740 Vitamin B12 & Folate 09/25/2020 [facility] with [facility] Vitamin B12 Level 454 pg/mL Normal 4 Folate > 24.0 NG/ML Normal 5 Laboratory test finding 09/25/2020 [facility] with [facility] Syphilis NONREACTIVE Normal Nonreactive Rheumatoid Factor Quant < 10.0 IU/mL Normal <15.0 Lupus Type Anticoagulant Scree 09/25/2020 [facility] with [facility] PTT Lupus Type Anticoag Screen 2.0 High 0-1.2 6 Laboratory test finding 09/25/2020 [facility] with [facility] Lupus Confirm Stago 1.43 High 0.00-1.20 7 Hemoglobin A1c 09/25/2020 [facility] with [facility] Hemoglobin A1c 5.9 % Normal 8 Estimated Average Glucose 123 mg/dL High 60-110 CBC With Differential 09/25/2020 [facility] with [facility] White Blood Count 5.2 10 Normal [...] 36.0-66.0 Lymph % 40.7 % Normal 24.0-44.0 Worth % 7.2 % Normal 2.0-8.0 Eos % 3.7 % High 0.0-3.0 Baso % 1.7 % High 0.0-1.0 Immature Granulocyte % 0.4 % Normal 0-3.0 Nucleated Red Blood Cell % 0.0 % Normal 0-0 Neutrophils # 2.4 10 Normal 1.5-8.5 Lymph # 2.1 10 Normal 1.5-5.0 Worth # 0.4 10 Normal 0.0-0.8 Eos # 0.2 10 Normal 0.0-0.5 Baso # 0.1 10 Normal 0.0-0.2 Laboratory test finding 09/25/2020 [facility] Erythrocyte Sedimentation Rate 29 mm/hr Normal 0-30 Lupus Screen Confirmation 09/25/2020 [facility] with [facility] Hexagonal Phase Phospholipid 0 sec Normal 0-11 Comment For Hexagonal Confirm1 (SEE NOTE) Normal . 9 Vitamin E Level 09/25/2020 [facility] Vitamin E(Alpha Tocopherol) 8.3 mg/L Normal 7.0-25.1 Vitamin E(Gamma Tocopherol) 1.1 mg/L Normal 0.5-5.5 10 Anti-Neutrophil Cytoplasmic AB 09/25/2020 [facility] with [facility] Cytoplasmic Neutrop AB Anca-C <1:20 titer Normal Neg:<1:20 Perinuclear AB Anca-P <1:20 titer Normal Neg:<1:20 11 Anca-Atypical <1:20 titer Normal Neg:<1:20 12 Laboratory test finding 09/25/2020 [facility] with [facility] Vitamin B1 Level Whole Blood 144.9 nmol/L Normal 66.5-200.0 13 Vitamin B6,Pyridoxal Phosphate 10.2 ug/L Normal 2.0-32.8 14 Antinuclear Antibodies 09/25/2020 [facility] with [facility] Antinuclear Antibodies Direct Negative Normal Negative Sjogren's Anti SS-A <0.2 AI Normal 0.0-0.9 Sjogren's Anti SS-B <0.2 AI Normal 0.0-0.9 Anti Double Strand Dna Ne 09/25/2020 [facility]ed with [facility] Anti DS-Dna AB Negative Normal Negative 1 Units are mL/min/1.73 m2 Chronic Kidney Disease Staging per NKF: Stage I & II GFR >=60 Normal to Mildly Decreased Stage III GFR 30-59 Moderately Decreased Stage IV GFR 15-29 Severely Decreased Stage V GFR <15 Very Little GFR Left ESRD GFR <15 on CREATIVE SERVICES SPECIALIST 2 NO M-SPIKE(S)NOTED. 3 REV'D BY O [...] IS PRESENT. SPECIMEN WILL BE SENT TO [facility], [address] [place], [place]. [address] REFERE [facility] FOR CONFIRMATION. 8 REFERENCE RANGES: <=5.6% NORMAL 5.7-6.4% SUGGESTS IMPAIRED GLUCOSE META BOLISM/PREDIABETIC >= 6.5% ABNORMAL 9 . Results do not indicate the presence of a Lupus Anticoagulant: abnormal high screening results (PTT-LA, dRVVT, mixing studies), may be due to medication (heparin, warfarin, aspirin), Factor inhibitors, anticardiolipin antibodies, or poor specimen integrity. Performed at: [address] [id number] 61 Hose Sprayer: Gay Leyva MD, Phone: [phone] 10 Reference intervals for alph a and gamma-tocopherol determined from National Health and Nutrition Examination Survey, 9705-0550. Individuals with alpha-tocopherol levels less than 5.0 [...] up testing of positive sera with both ID- 3 and MPO-ANCA enzyme immunoassays. As m any as 5% serum samples are positive only by EIA. Ref. AM J Clin Pathol 1999;111:507-513. 12 The atypical pANCA pattern h as been observed in a significant percentage of patients with ulcerative colitis, primary sclerosing cholangitis and autoimmune hepatitis. 13 Specimen Comment: Test(s) 07 0141-Vitamin E(Alpha Tocopherol); 074644- Specimen Comment: Vitamin E(Gamma Tocopherol); 846855-Bpaedco B6; 210726- Specimen Comment: Vit. B1, Whole Blood Specimen Comment: was developed and its performance characteristics Specimen Comment: determined by [facility]. It has not been cleared or approved Specimen Comment: by the Food and Drug Administration. 14 Specimen Comment: Test(s) 07 0141-Vitamin E(Alpha Tocopherol); 856203- Specimen Comment: Vitamin E(Gamma Tocopherol); 915646-Digehzy B6; 065110- Specimen Comment: Vit. B1, Whole Blood Specimen Comment: was developed and its performance characteristics Specimen Comment: determined by [facility]. It has not been cleared or approved Specimen Comment: by the Food and Drug Administration. Procedures Date Code Description Status 08/27/2020 26244 Nerve Conduction 11-12 Studies C ompleted 08/27/2020 84945 Needle Electromyography Complete , Five Or More Muscles Studied Completed 08/27/2020 76065 Needle Electromyography Complete , Five Or More Muscles Studied Completed 08/20/2020 30967 Nerve Conduction 9-10 Studies Co mpleted 08/20/2020 59026 Needle Electromyography Complete , Five Or More Muscles Studied Completed 08/20/2020 34769 Needle Electromyography Complete , Five Or More Muscles Studied Completed 08/18/2020 51368 Sympathetic Skin Responses Compl eted 08/18/2020 97118 Test Autonomic Nervous System, C ardiovagal Innervation Completed 08/18/2020 11491 Artery Study Extremity Mult Leve ls Bilateral Completed 08/18/2020 70464 Artery Study Extremity Mult Leve ls Bilateral Completed 08/16/2020 22037 Office/Outpatient New Moderate M DM 45-59 Minutes Completed Medical Devices Description No Information Available Encounters Type Date Location Provider Dx Diagnosis Office Visit 08/16/2020 2:30p Main office - [place] Diana Gayle M.D. M79.605 Pain in left leg M79.604 Pain in right leg M79.601 Pain in right arm M79.602 Pain in left arm R25.8 Other abnormal involuntary m ovements M54.5 Low back pain R41.3 Other amnesia M54.2 Cervicalgia M62.9 Disorder of muscle, unspecif ied Assessments Date Code Description Provider 08/27/2020 M79.605 Pain in left leg Catrachita [...] Other hereditary and idiopathic neuropathies Diana Gayle M.DPaulo 08/18/2020 G60.8 Other hereditary and idiopathic [...] 08/16/2020 R25.8 Other abnormal involuntary movem ents Dianaus Gayle M.DPaulo 08/16/2020 M54.5 Low back pain Josefa Ochoa. DPaulo 08/16/2020 R41.3 Other amnesia DianaJosefa Lr. DPaulo 08/16/2020 M54.2 Cervicalgia Diana Gayle M. DPaulo 08/16/2020 M62.9 Disorder of muscle, unspecified Diana Gayle M.D. Plan of Treatment Future Appointment(s):* 12/17/2020 2:00 pm - Amisha Raymond P.A.-C. at Main office - [place] Functional Status Description No Information Available Mental Status Description No Information Available Referrals Description No Information Available
--- OUTSIDE RECORDS SUMMARY | 2021-01-22 11:41 | CCD | Continuity of Care Document ---
Author Author Elena HADDAD DO Organization Unknown Address [address] [address] Phone [phone] Care Team Providers Care Dry Cleaner Presser Name Role Phone Wilner Haddad DO AUTM [phone] Problems Active Problems Provider Date Fibromyalgia Wilner Haddad DO Onset: 1 Dysthymia Wilner Haddad DO Onset: 1 Generalized anxiety disorder Wilner Haddad DO Onset: 01/18/2021 Irritable bowel syndrome with diarrhea Wilner Haddad DO Onset: 01/18/2021 Sjogren's syndrome Wilner Haddad DO Onset: 1 Rheumatoid arthritis Wilner Haddad DO Onset: 01/19/20 21 Ventricular tachycardia Wilner Haddad DO Onset: 01/18 Paroxysmal atrial fibrillation Wilner Haddad DO Onset : 01/18/2021 Essential hypertension Wilner Haddad DO Onset: 2020 Obesity Wilner Haddad DO Onset: 1 Social History Type Date Description Comments Sex Unknown ETOH Use Rarely consumes alcohol Tobacco Use Start: Unknown Patient has never smoked Allergies, Adverse Reactions, Alerts Active Allergies Criticality Reaction | Severity Comments Date Bee Sting Unable to assess criticality 01/18/2021 Medications Active Medications SIG Qnty Indications Ordering Provide r Date Cevimeline HCL 30mg Capsules 1 po tid 270caps Wilner Haddad DO 01/18/2021 Xarelto 20mg Tablets take one tablet by mouth every day with food 90tabs Lia Aguilar 01/18/2021 Orencia 125mg/ml Soln Prefill Syri nge 1 ml every week on thursday Wilner Haddad, DO Amiodarone HCL 200mg Tablets Wilner Haddad, DO 01/18/2021 Tamsulosin HCL 0.4mg Capsules 1 daily 1/2 hour after same meal 90caps Wilner Haddad, DO Amitriptyline HCL 50mg Tablets take one tablet by mouth at bedtime 90tabs Wilner Haddad, DO 01/18/2021 Viberzi 75mg Tablets 1 daily 90tabs Wilner Haddad, DO 01/18/2021 Hyoscyamine Sulfate ER 0.375mg Tablets ER 12HR twice a day as needed 180tabs Wilner Haddad , DO 01/18/2021 Diphenoxylate-Atropine 2.5-0.025mg Tablets 1-2 tabs po q8h 90tabs Wilner Haddad, DO 0 01/18/2021 Dicyclomine HCL 20mg Tablets take one capsule po tid 270tabs Wilner Haddad, DO 01/19/20 21 Lopressor 50mg Tablets take one tablet by mouth twice a day 60tabs Wilner Haddad, 2020 [facility] Fish Oil 1000mg Capsules Wilner Haddad, DO 01/18/2021 Diclofenac Sodium 75mg Tablets DR 1 by mouth twice a day as needed 180tabs Wilner Haddad, DO 01/18/2021 Atorvastatin Calcium 40mg Tablets 1 by mouth every day 90tabs Wilner Haddad, 01/19/20 21 Hydrocodone-Acetaminophen 7.5-325mg Tablets 11 q8h/prn 90tabs Wilner Haddad DO 12/31 Triamcinolone Acetonide 0.1% Cream as directed on rash bid times a day. 15gm Wilner waterman, DO 01/18/2021 Spironolactone 25mg Tablets 1 by mouth every day 90tabs Wilner Haddad, DO 01/19/20 21 Venlafaxine HCL ER 225mg Tablets E R 24HR 1 by mouth every day 90tabs Wilner Haddad, DO 01/18 Leucovorin Calcium 5mg Tablets 1 Daily 90tabs Nileshedy Celeste, DO 01/18/2021 Methotrexate 2.5mg Tablets 8 tabs every thursday 32tabs Wilner Haddad, DO 01/19/20 21 Immunizations Description No Information Available Vital Signs Date Vital Result Comment 01/18/2021 10:33am BP Systolic 138 mmHg BP Diastolic 78 mmHg Heart Rate 80 /min Height 63 inches 5'3" Weight 189.12 lb O2 % BldC Oximetry 99 % BMI (Body Mass Index) 33.5 kg/m2 Results Test Acquired Date Facility Test Result H/L Range Note Complete Blood Count 01/18/2021 [place] [employer] Mobility Architect Manager: Dr Segundo [place] [address] [phone] WBC 8.6 x10*3/UL 4.1 - 10.9 RBC 4.04 x10*6/UL Low 4.20 - 6.30 Hemoglobin 12.8 g/dL 12.0 - 18.0 Hematocrit 36.1 % Low 37.0 - 51.0 MCV 89.4 fL 80.0 - 97.0 MCH 31.7 pg 26.0 - 32.0 MCHC 35.5 g/dL 31.0 - 38.0 RDW 13.2 % 11.6 - 13.7 PLT 340 x10*3/UL 140 - 440 MPV 7.4 FL Low 7.8 - 11.0 Lymph % 28.4 % 10.0 - 58.5 Mid % 6.1 % 1.7 - 9.3 Neut % 65.5 % 37.0 - 92.0 Lymph # 2.4 x10*3/UL 0.6 - 4.1 Mid # 0.6 x10*3/UL 0.1 - 0.6 Neut # 5.6 x10*3/UL 2.0 - 7.8 Comprehensive Chem Profile 01/18/2021 [place] [facility] Mobility Architect Manager: [place] [address] [phone] Glucose 112 mg/dL High 74 - 99 1 BUN 17 mg/dL 7 - 18 Creatinine 0.9 mg/dL 0.6 - 1.3 Sodium 140 mEq/L 136 - 145 Potassium 3.2 mEq/L Low 3.5 - 5.1 2 Chloride 103 mEq/L 98 - 107 Carbon Dioxide 30 mEq/L 21 - 32 Calcium 8.7 mg/dL 8.5 - 10.1 Alk. Phosphatase 82 mg/dL 46 - 116 Total Bilirubin 0.3 mg/dL 0.2 - 1.0 Ast (Sgot) 23 U/L 15 - 37 Alt (SGPT) 32 U/L 12 - 78 Albumin 4.0 g/dL 3.4 - 5.0 Total Protein 7.0 g/dL 6.4 - 8.2 A/G Ratio 1.33 CALC 1.00 - 1.90 GFR >= 60 mL/min >60 GFR >= 60 mL/min >60 3 Lipid Profile 01/18/2021 [place] [facility] Mobility Architect Manager: Dr Segundo [place] [address] [phone] Cholesterol 135 mg/dL 131 - 200 Triglycerides 41 mg/dL 30 - 150 HDL Cholesterol 60 mg/dL 35 - 60 LDL (Calculated) 67 CALC 50 - 159 Laboratory test finding 01/18/2021 [place] [employer] is, Mobility Architect Manager: Dr Segundo [place] [address] [phone] Thyroid Stimulating Hormone 1.96 uIU/mL 0.3 6 - 3.74 Microalbumin/Creatinine Urine 01/18/2021 [facility], Mobility Architect Manager: Dr Segundo [place]add[place] [address] [phone] Microalbumin Urine 10.0 mg/L 1.3 - 20.0 Urine Creatinine 156.4 mg/dL High 30.0 - 125.0 Microalb/Creat Ratio 6.4 ug/mg 0.0 - 30.0 1 100-125 mg/dL PRE-DIABET ES/FASTING >126 mg/dL DIABETES/FASTING 2 NOTE: RESULT VERIFIED. 3 CHRONIC KIDNEY DISEASE STAGI NG PER NKF STAGE I & II GFR >= 60 NORMAL TO MILDLY DECREASED STAGE III GFR 30-59 MODERATELY DECREASED STAGE IV GFR 15-29 SEVERELY DECREASED STAGE V GFR <15 VERY LITTLE GFR LEFT ESRD GFR <15 ON REVENUE CYCLE ADMINISTRATOR Procedures Description No Information Available Medical Devices Description No Information Available Encounters Description No Information Available Assessments Date Code Description Provider 01/18/2021 I10 Essential (primary) hypertension Wilner Haddad, DO 01/18/2021 I48.0 Paroxysmal atrial fibrillation C hristedy Haddad, DO 01/18/2021 I47.2 Ventricular tachycardia Jim Haddad, DO 01/18/2021 E66.09 Obesity Wilner jeffreyg, DO 01/18/2021 M06.9 Rheumatoid arthritis, unspecifie d Wilner Haddad, DO 01/18/2021 M35.00 Sicca syndrome, unspecified Chri stopher Haddad, DO 01/18/2021 M79.7 Fibromyalgia Wilner jeffreyg, DO 01/18/2021 K58.0 Irritable bowel syndrome with di arrhea Wilner Haddad, DO 01/18/2021 F41.1 Generalized anxiety disorder Chr aviva Haddad, DO 01/18/2021 F34.1 Dysthymic disorder Wilner catherine, DO 01/18/2021 B02.8 Zoster with other complications Wilner Haddad DO Plan of Treatment Future Appointment(s):* 02/20/2021 10:20 am - Wilner Haddad DO at [facility] 01/18/2021 - Wilner Haddad DO* I10 Essential (primary) hypertension * I48.0 Paroxysmal atrial fibrillation * I47.2 Ventricular tachycardia * E66.09 Obesity * M06.9 Rheumatoid arthritis, unspecified * M35.00 Sicca syndrome, unspecified * M79.7 Fibromyalgia * K58.0 Irritable bowel syndrome with diarrhea * F41.1 Generalized anxiety disorder * F34.1 Dysthymic disorder * B02.8 Zoster with other complications * All * New Medication:* Lopressor 50 [...] Hydrocodone-Acetaminophen 7.5-325 mg - 11 q8h/prn * Atorvastatin Calcium 40 mg - 1 by mouth every day * Diclofenac Sodium 75 mg - 1 by mouth twice a day as needed * [facility] Fish Oil 1000 mg - * Cevimeline HCL 30 mg - 1 po tid * Dicyclomine HCL 20 mg - take one capsule po tid * Diphenoxylate-Atropine 2.5-0.025 mg - 1-2 tabs po q8h * Hyoscyamine Sulfate ER 0.375 mg - twice a day as needed * Viberzi 75 mg - 1 daily * Amitriptyline HCL 50 mg - take one tablet by mouth at bedtime * Tamsulosin HCL 0.4 mg - 1 daily 1/2 hour after same meal * Amiodarone HCL 200 mg - * Orencia 125 mg/ml - 1 ml every week on thursday * Xarelto 20 mg - take one tablet by mouth every day with food Functional Status Description No Information Available Mental Status Description No Information Available Referrals Description No Information Available
--- OUTSIDE RECORDS SUMMARY | 2021-01-22 11:46 | CCD ---
Author Author [facility] [employer] Organization 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 Active confirmed 614576383 Problem Vaginitis and vulvovaginitis 616.10 Active confirme d 241512940 ALLERGIES Allergen (clinical drug ingredient) Drug/Non Drug Allergy do cumented on EMR Reaction Allergy Type Onset Date Status erythromycin Erythromycin(ND Code:[address]-58) Stomach cramps Drug Allergy Active amoxicillin Amoxicillin(NDC Code:[address]-95) rash Drug Aller gy Active Bees Palpitation, anaphylaxsis Non Drug Allergy Active ENCOUNTERS from 1965 to 2020-11-16 Encounter Location Date Provider Diagnosis [facility] [address] [phone] [place] [phone] Oct, Carmen Cohen Urinary retention R33.9 IMMUNIZATIONS No Information SOCIAL HISTORY Sex Assigned At : Social History Observation Description Sex Assigned At Unknown Language: Question Answer Notes Languages spoken: Polish Catholic: Question Answer Notes Catholic No buddhist beliefs that would impact health care. Alcohol Screening: Question Answer Notes Did you have a drink containing alcohol in the past year? No Points 0 Interpretation Negative REASON FOR REFERRAL No Information VITAL SIGNS No information MEDICATIONS Medication SIG (Take, Route, Frequency, Duration) Notes Start Da te End Date Status Lisinopril 40 40 mg 1 tab(s) oral once a day Active Fluconazole 200 MG 1 tablet Orally Once for 1 days Jul, Not-Taking Hydrochlorothiazide 12.5 12.5mg 1 tab(s) oral once a day Not-Taking Spironolactone 25mg 1 tab(s) p.o. once a day for 30 day(s) Active Leflunomide 10mg 1 tablet p.o. Once a day for 30 day(s) Not-Taking Biotin 1000 MCG 1 tab(s) p.o. twice a day for 30 day(s) Active Potassium 10 meq 1 tab(s) Orally twice a day Not-Taking Effexor XR 150 MG 1 capsule with food Orally Once a day Active prednisoLONE 10 mg 2 tab(s) p.o. three times a day for 5 days for 3 0 day(s) Not-Taking Cymbalta 90mg 1 cap(s) p.o. Once a day for 30 day(s) Not-Taking Vitamin E 400 UNIT 1 capsule p.o. once a day for 30 day(s) Active Wellbutrin 10 mg 1 tab(s) p.o. twice a day for 30 day(s) Not-Taking Terazol 7 0.4 % 1 application at bedtime ext ernally genital area Once a day for 7 day(s) Jun, Not-Taking [place] Urinary Leg Bag - as directed change weekly for 30 Days Oct, Active Bactrim DS 800-160 MG 1 tablet Orally as directed- 1 hour prior to cystoscopy Jul, Active Diflucan 150 MG 1 tablet Orally take one , september repe at 1 wk prn for 14 days Jun, Not-Taking Vitamin D3 Super Strength 1000 UNIT 1 tab(s) Orally once a day Not-Taking Catheters - as directed 14 fr indwelling soares catheter, exchange every 4 weeks for 30 Days Oct, Active Flexeril 20 mg 1 tab(s) p.o. at night Active Plaquenil 200 MG 1 tab(s) p.o. twice a day for 10 day(s) Active Xyzal 5 MG 1 tab(s) Orally Once a day for 30 day(s) Active PROCEDURES No Information RESULTS No Results REASON FOR VISIT questions about catheter MEDICAL (GENERAL) HISTORY Type Description Date Medical History high blood pressure Medical History anxiety Medical History GERD Medical History environmental allergies Medical History fibromyalgia Medical History juvenile RA Dr Amador Surgical History Hysterectomy, partial; ovaries intact 19 99 Surgical History tonsils/adenoids Surgical History D&Cs x [...] Notes Treatment Notes Treatm ent Clinical Notes Oct, Urinary retention (ICD-10 - R33.9) PLAN OF TREATMENT Medication Medication Name Sig Start Date Stop Date Catheters - as directed 14 fr indwelling soares catheter, exchange every 4 weeks for 30 Days Oct, [place] Urinary Leg Bag - as directed change weekly for 30 Days Oct, Next Appt Details Provider Name:Kenrick Boyd, 2020-12-13 10:15:00 AM, [address], , [place], [address], Insurance Providers Payer Name Payer Address Payer Phone Insured Name Patient Relati onship to Insured Coverage Start Date Coverage End Date MEDICARE Part A and B [address] [facility] [id number] [phone] [facility] [address] [facility] [id number] MEG CARDOZA
[2021-01-22] MEDS ORDERED: BACTDSTA PO (11:54)
--- OUTSIDE RECORDS SUMMARY | 2021-01-22 12:03 | CCD ---
Author Author [facility] Organization [facility] Address Unknown Phone Unavailable Care Team Providers Care Journeyman Operator Assistant Name Role Phone Samuel Moore MD Unavailable Unavailable Samuel Moore MD Unavailable Unavailable Samuel Moore MD Unavailable Unavailable Samuel Moore MD Unavailable Unavailable Samuel Moore MD Unavailable Unavailable Samuel Moore MD Unavailable Unavailable Samuel Moore MD Unavailable Unavailable Samuel Moore MD Unavailable Unavailable Samuel Moore MD Unavailable Unavailable Samuel Moore MD Unavailable Unavailable Samuel Moore MD Unavailable Unavailable Samuel Moore MD Unavailable Unavailable Samuel Moore MD Unavailable Unavailable Samuel Moore MD Unavailable Unavailable Samuel Moore MD Unavailable Unavailable Kabbli, R Gangadhara MD Unavailable Unavailable Kabbli, R Sanjaygadhara MD Unavailable Unavailable Kabbli, R Sanjaygadhara MD Unavailable Unavailable Kabbli, R Sanjaygadhara MD Unavailable Unavailable Kabbli, R Sanjaygadhara MD Unavailable Unavailable Kabbli, R Sanjaygadhara MD Unavailable Unavailable Kabbli, R Sanjaygadhara MD Unavailable Unavailable Kabbli, R Sanjaygadhara MD Unavailable Unavailable Kabbli, R Gangadhara MD Unavailable Unavailable Kabbli, R Sanjaygadhara MD Unavailable Unavailable Kabbli, R Gangadhara MD Unavailable Unavailable Kabbli, R Gangadhara MD Unavailable Unavailable Kabbli, R Sanjaygadhara MD Unavailable Unavailable Kabbli, R Sanjaygadhara MD Unavailable Unavailable Kabbli, R Sanjaygacori MD Unavailable Unavailable Kabbli, R Sanjaygacori MD Unavailable Unavailable Kabbli, R Sanjaygacori MD Unavailable Unavailable Kabbdonnie, R Sanjaygacori MD Unavailable Unavailable Kabbli, R Sanjaygadhcarlin MD Unavailable Unavailable Kabbli, R Sanjaygacori MD Unavailable Unavailable Berlin, Lexa PA Unavailable Unavailable [...] Unavailable Unavailable Berlin, Lexa PA Unavailable Unavailable Trickey, J Amisha PA Unavailable Unavailable Trickey, J Amisha PA Unavailable Unavailable Trickey, J Amisha PA Unavailable Unavailable Trickey, J Amisha PA Unavailable Unavailable Trickey, J Amisha PA Unavailable Unavailable Trickey, J Amisha PA Unavailable Unavailable Trickey, J Amisha PA Unavailable Unavailable Trickey, J Amisha PA Unavailable Unavailable Trickey, J Amisha PA Unavailable Unavailable Trickey, J Amisha PA Unavailable Unavailable Trickey, J Amisha PA Unavailable Unavailable Trickey, J Amisha PA Unavailable Unavailable Trickey, J Amisha PA Unavailable Unavailable Trickey, J Amisha PA Unavailable Unavailable Trickey, J Amisha PA Unavailable Unavailable Trickey, J Amisha PA Unavailable Unavailable Trickey, J Amisha PA Unavailable Unavailable Trickey, J Amisha PA Unavailable Unavailable Trickey, J Amisha PA Unavailable Unavailable Trickey, J Amisha PA Unavailable Unavailable Trickey, J Amisha PA Unavailable Unavailable Trickey, J Amisha PA Unavailable Unavailable Trickey, J Amisha PA Unavailable Unavailable Trickey, J Amisha PA Unavailable Unavailable Trickey, J Amisha PA Unavailable Unavailable Trickey, J Amisha PA Unavailable Unavailable Trickey, J Amisha PA Unavailable Unavailable Trickey, J Amisha PA Unavailable Unavailable Trickey, J Amisha PA Unavailable Unavailable Trickey, J Amisha PA Unavailable Unavailable Trickey, J Amisha PA Unavailable Unavailable Trickey, J Amisha PA Unavailable Unavailable Trickey, J Amisha PA Unavailable Unavailable Trickey, J Amisha PA Unavailable Unavailable Trickey, J Amisha PA Unavailable Unavailable Trickey, J Amisha PA Unavailable Unavailable Trickey, J Amisha PA Unavailable Unavailable Trickey, J Amisha PA Unavailable Unavailable Trickey, J Amisha PA Unavailable Unavailable Trickey, Ryan Duncana PA Unavailable Unavailable Trickey, Ryan Duncana PA Unavailable Unavailable Trickey, Ryan Duncana PA Unavailable Unavailable Trickey, Ryan Duncana PA Unavailable Unavailable Trickey, Ryan Duncana PA Unavailable Unavailable Trickey, Ryan Duncana PA Unavailable Unavailable Trickey, Ryan Duncana PA Unavailable Unavailable Trickey, Ryan Duncana PA Unavailable Unavailable Trickey, Ryan Duncana PA Unavailable Unavailable Trickey, Ryan Amisha PA Unavailable Unavailable Jumalon, M Wendi CAMERA MAKER Unavailable Unavailable Jumalon, M Wendi CAMERA MAKER Unavailable Unavailable Jumalon, M Wendi CAMERA MAKER Unavailable Unavailable Jumalon, M Wendi CAMERA MAKER Unavailable Unavailable Jumalon, M Wendi CAMERA MAKER Unavailable Unavailable Jumalon, M Wendi CAMERA MAKER Unavailable Unavailable Jumalon, M Wendi CAMERA MAKER Unavailable Unavailable Jumalon, M Wendi CAMERA MAKER Unavailable Unavailable Jumalon, M Wendi CAMERA MAKER Unavailable Unavailable Jumalon, M Wendi CAMERA MAKER Unavailable Unavailable Jumalon, M Wnedi CAMERA MAKER Unavailable Unavailable Jumalon, M Wendi CAMERA MAKER Unavailable Unavailable Jumalon, M Wendi CAMERA MAKER Unavailable Unavailable Jumalon, M Wendi CAMERA MAKER Unavailable Unavailable Jumalon, M Wendi CAMERA MAKER Unavailable Unavailable Jumalon, M Wendi CAMERA MAKER Unavailable Unavailable Jumalon, M Wendi CAMERA MAKER Unavailable Unavailable Jumalon, M Wendi CAMERA MAKER Unavailable Unavailable Jumalon, M Wendi CAMERA MAKER Unavailable Unavailable Jumalon, M Wendi CAMERA MAKER Unavailable Unavailable Jumalon, M Wendi CAMERA MAKER Unavailable Unavailable Jumalon, M Wendi CAMERA MAKER Unavailable Unavailable Jumalon, M Wendi CAMERA MAKER Unavailable Unavailable Jumalon, M Wendi CAMERA MAKER Unavailable Unavailable Jumalon, M Wendi CAMERA MAKER Unavailable Unavailable Jumalon, M Wendi CAMERA MAKER Unavailable Unavailable Jumalon, M Wendi CAMERA MAKER Unavailable Unavailable Jumalon, M Wendi CAMERA MAKER Unavailable Unavailable Jumalon, M Wendi CAMERA MAKER Unavailable Unavailable Jumalon, M Wendi CAMERA MAKER Unavailable Unavailable Wall CAMERA MAKER, A Hyun Unavailable [phone] Wall CAMERA MAKER, A Hyun Unavailable [phone] Wall CAMERA MAKER, A Hyun Unavailable [phone] Wall CAMERA MAKER, A Hyun Unavailable [phone] Wall CAMERA MAKER, A Hyun Unavailable [phone] Wall CAMERA MAKER, A Hyun Unavailable [phone] Tucker, Esau Norma RPA Unavailable Unavailable Tucker, Esau Norma RPA Unavailable Unavailable Tucker, [place] Norma RPA Unavailable Unavailable Tucker, [place] Norma RPA Unavailable Unavailable Tucker, Esau Norma RPA Unavailable Unavailable Tucker, Esau Norma RPA Unavailable Unavailable Tucker, [place] Norma RPA Unavailable Unavailable Tucker, [place] Norma RPA Unavailable Unavailable Tucker, [place] Norma RPA Unavailable Unavailable Tucker, Esau Norma RPA Unavailable Unavailable Tucker, Esau Norma RPA Unavailable Unavailable Tucker, [place] Norma RPA Unavailable Unavailable Tucker, [place] Norma RPA Unavailable Unavailable Tucker, Esau Norma RPA Unavailable Unavailable Tucker, [place] Norma RPA Unavailable Unavailable Tucker, [place] Norma RPA Unavailable Unavailable Tucker, Esau Norma RPA Unavailable Unavailable Tucker, Esau Norma RPA Unavailable Unavailable Tucker, [place] Norma RPA Unavailable Unavailable Tucker, Esau Norma RPA Unavailable Unavailable Tucker, [place] Norma RPA Unavailable Unavailable Tucker, Esau Norma RPA Unavailable Unavailable Tucker, Esau Norma RPA Unavailable Unavailable Tucker, Esau Norma RPA Unavailable Unavailable Tucker, [place] Norma RPA Unavailable Unavailable MtaLucho hayward MD Unavailable Unavailable MtaLucho hayward MD Unavailable Unavailable MtanoLucho bertrand MD Unavailable Unavailable MtaLucho hayward MD Unavailable Unavailable MtaLucho hayward MD Unavailable Unavailable MtaLucho hayward MD Unavailable Unavailable MtaLucho hayward MD Unavailable Unavailable MtaLucho hayward MD Unavailable Unavailable MtaLucho hayward MD Unavailable Unavailable MtaLucho hayward MD Unavailable Unavailable MtaLucho hayward MD Unavailable Unavailable MtaLucho hayward MD Unavailable Unavailable MtaLucho hayward MD Unavailable Unavailable MtaLucho hayward MD Unavailable Unavailable MtaLucho hayward MD Unavailable Unavailable MtaLucho hayward MD Unavailable Unavailable MtaLucho hayward MD Unavailable Unavailable MtaLucho hayward MD Unavailable Unavailable MtanoLucho bertrand MD Unavailable Unavailable MtaLucoh hayward MD Unavailable Unavailable MtaLucho hayward MD Unavailable Unavailable MtaLucho hayward MD Unavailable Unavailable MtaLucho hayward MD Unavailable Unavailable MtaLucho hayward MD Unavailable Unavailable MtanoLucho bertrand MD Unavailable [...] MD Unavailable Unavailable MtanosLucho MD Unavailable Unavailable MtanosLcuho MD Unavailable Unavailable MtanosLucho MD Unavailable Unavailable [...] Unavailable Unavailable Mtanos, Lucho DAVIS Unavailable Unavailable RODRÍGUEZ (PATRICIA), Josefa STERN MD Unavailable Unavailab le RODRÍGUEZ (PATRICIA), Josefa STERN MD Unavailable Unavailab le RODRÍGUEZ (PATRICIA), Josefa STERN MD Unavailable Unavailab le RODRÍGUEZ (PATRICIA), Josefa STERN MD Unavailable Unavailab le RODRÍGUEZ (PATRICIA), Josefa STERN MD Unavailable Unavailab le RODRÍGUEZ (PATRICIA), Josefa STERN MD Unavailable Unavailab le RODRÍGUEZ (PATRICIA), Josefa STERN MD Unavailable Unavailab le RODRÍGUEZ (PATRICIA), oJsefa STERN MD Unavailable Unavailab le RODRÍGUEZ (PATRICIA), Josefa STERN MD Unavailable Unavailab le RODRÍGUEZ (PATRICIA), Josefa STERN MD Unavailable Unavailab le RODRÍGUEZ (PATRICAI), Josefa STERN MD Unavailable Unavailab le RODRÍGUEZ (PATRICIA), Josefa STERN MD Unavailable Unavailab le RODRÍGUEZ (PATRICIA), Josefa STERN MD Unavailable Unavailab le RODRÍGUEZ (PATRICIA), Josefa STERN MD Unavailable Unavailab le RODRÍGUEZ (PATRICIA), Josefa STERN MD Unavailable Unavailab le RODRÍGUEZ (PATRICIA), Josefa STERN MD Unavailable Unavailab le RODRÍGUEZ (PATRIICA), Josefa STERN MD Unavailable Unavailab le RODRÍGUEZ [...] (PATRICIA), Josefa STERN MD Unavailable Unavailab le Pikarsky, Enrrique CLEAT FEEDER Unavailable Unavailable Pikarsky, Enrrique CLEAT FEEDER Unavailable Unavailable Pikarsky, Enrrique CLEAT FEEDER Unavailable Unavailable Pikarsky, Enrrique CLEAT FEEDER Unavailable Unavailable Pikarsky, Enrrique CLEAT FEEDER Unavailable Unavailable Pikarsky, Enrrique CLEAT FEEDER Unavailable Unavailable Pikarsky, Enrrique CLEAT FEEDER Unavailable Unavailable Pikarsky, Enrrique CLEAT FEEDER Unavailable Unavailable Pikarsky, Enrrique CLEAT FEEDER Unavailable Unavailable Pikarsky, Enrrique CLEAT FEEDER Unavailable Unavailable Pikarsky, Enrrique CLEAT FEEDER Unavailable Unavailable Pikarsky, Enrrique CLEAT FEEDER Unavailable Unavailable Pikarsky, Enrrique CLEAT FEEDER Unavailable Unavailable Pikarsky, Enrrique CLEAT FEEDER Unavailable Unavailable Pikarsky, Enrrique CLEAT FEEDER Unavailable Unavailable Pikarsky, Enrrique CLEAT FEEDER Unavailable Unavailable Pikarsky, Enrrique CLEAT FEEDER Unavailable Unavailable Pikarsky, Enrrique CLEAT FEEDER Unavailable Unavailable Pikarsky, Enrrique CLEAT FEEDER Unavailable Unavailable Pikarsky, Enrrique CLEAT FEEDER Unavailable Unavailable Pikarsky, Enrrique CLEAT FEEDER Unavailable Unavailable Pikarsky, Enrrique CLEAT FEEDER Unavailable Unavailable Pikarsky, Enrrique CLEAT FEEDER Unavailable Unavailable Pikarsky, Enrrique CLEAT FEEDER Unavailable Unavailable Pikarsky, Enrrique CLEAT FEEDER Unavailable Unavailable Pikarsky, Enrrique CLEAT FEEDER Unavailable Unavailable Pikarsky, Enrrique CLEAT FEEDER Unavailable Unavailable Pikarsky, Enrrique CLEAT FEEDER Unavailable Unavailable LUCY, REAGAN MD Unavailable Unavailable LUCY, REAGAN MD Unavailable Unavailable LUCY, REAGAN MD Unavailable Unavailable LUCY, REAGAN MD Unavailable Unavailable LUCY, REAGAN MD Unavailable Unavailable LUCY, REAGAN MD Unavailable Unavailable LUCY, REAGAN MD Unavailable Unavailable LUCY, REAGAN MD Unavailable Unavailable LUCY, REAGAN MD Unavailable Unavailable LUCY, REAGAN MD Unavailable Unavailable LUCY, REAGAN MD Unavailable Unavailable LUCY, REAGAN MD Unavailable Unavailable LUCY, REAGAN MD Unavailable Unavailable LUCY, REAGAN MD Unavailable Unavailable LUCY, REAGAN MD Unavailable Unavailable LUCY, REAGAN MD Unavailable Unavailable LUCY, REAGAN MD Unavailable Unavailable LUCY, REAGAN MD Unavailable Unavailable ULCY, REAGAN MD Unavailable Unavailable LUCY, REAGAN MD Unavailable Unavailable LUCY, REAGAN MD Unavailable Unavailable LUCY, REAGAN MD Unavailable Unavailable LUCY, REAGAN MD Unavailable Unavailable LUCY, REAGAN MD Unavailable Unavailable LUCY, REAGAN MD Unavailable Unavailable LUCY, REAGAN MD Unavailable Unavailable LUCY, REAGAN MD Unavailable Unavailable LUCY, REAGAN MD Unavailable Unavailable LUCY, REAGAN MD Unavailable Unavailable LUCY, REAGAN MD Unavailable Unavailable LUCY, REAGAN MD Unavailable Unavailable LUCY, REAGAN MD Unavailable Unavailable LUCY, REAGAN MD Unavailable Unavailable LUCY, REAGAN MD Unavailable Unavailable LUCY, REAGAN MD Unavailable Unavailable LUCY, REAGAN MD Unavailable Unavailable LUCY, REAGAN MD Unavailable Unavailable LUCY, REAGAN MD Unavailable Unavailable LUCY, REAGAN MD Unavailable Unavailable LUCY, REAGAN MD Unavailable Unavailable LUCY, REAGAN MD Unavailable Unavailable LUCY, REAGAN MD Unavailable Unavailable LUCY, REAGAN MD Unavailable Unavailable ZABOROWSKI, J JOLANTA CLEAT FEEDER Unavailable Unavailable ZABOROWSKI, J JOLANTA CLEAT FEEDER Unavailable Unavailable ZABOROWSKI, J JOLANTA CLEAT FEEDER Unavailable Unavailable ZABOROWSKI, J JOLANTA CLEAT FEEDER Unavailable Unavailable ZABOROWSKI, J JOLANTA CLEAT FEEDER Unavailable Unavailable ZABOROWSKI, J JOLANTA CLEAT FEEDER Unavailable Unavailable ZABOROWSKI, J JOLANTA CLEAT FEEDER Unavailable Unavailable ZABOROWSKI, J JOLANTA CLEAT FEEDER Unavailable Unavailable ZABOROWSKI, J JOLANTA CLEAT FEEDER Unavailable Unavailable ZABOROWSKI, J JOLANTA CLEAT FEEDER Unavailable Unavailable ZABOROWSKI, J JOLANTA CLEAT FEEDER Unavailable Unavailable ZABOROWSKI, J JOLANTA CLEAT FEEDER Unavailable Unavailable ZABOROWSKI, J JOLANTA CLEAT FEEDER Unavailable Unavailable ZABOROWSKI, J JOLANTA CLEAT FEEDER Unavailable Unavailable ZABOROWSKI, J JOLANTA CLEAT FEEDER Unavailable Unavailable ZABOROWSKI, J JOLANTA CLEAT FEEDER Unavailable Unavailable ZABOROWSKI, J JOLANTA CLEAT FEEDER Unavailable Unavailable ZABOROWSKI, J JOLANTA CLEAT FEEDER Unavailable Unavailable ZABOROWSKI, J JOLANTA CLEAT FEEDER Unavailable Unavailable ZABOROWSKI, J JOLANTA CLEAT FEEDER Unavailable Unavailable ZABOROWSKI, J JOLANTA CLEAT FEEDER Unavailable Unavailable ZABOROWSKI, J JOLANTA CLEAT FEEDER Unavailable Unavailable ZABOROWSKI, J JOLANTA CLEAT FEEDER Unavailable Unavailable ZABOROWSKI, J JOLANTA CLEAT FEEDER Unavailable Unavailable ZABOROWSKI, J JOLANTA CLEAT FEEDER Unavailable Unavailable ZABOROWSKI, J JOLANTA CLEAT FEEDER Unavailable Unavailable ZABOROWSKI, J JOLANTA CLEAT FEEDER Unavailable Unavailable ZABOROWSKI, J JOLANTA CLEAT FEEDER Unavailable Unavailable ZABOROWSKI, J JOLANTA CLEAT FEEDER Unavailable Unavailable ZABOROWSKI, J JOLANTA CLEAT FEEDER Unavailable Unavailable ZABOROWSKI, J JOLANTA CLEAT FEEDER Unavailable Unavailable ZABOROWSKI, J JOLANTA CLEAT FEEDER Unavailable Unavailable ZABOROWSKI, J JOLANTA CLEAT FEEDER Unavailable Unavailable ZABOROWSKI, J JOLANTA CLEAT FEEDER Unavailable Unavailable ZABOROWSKI, J JOLANTA CLEAT FEEDER Unavailable Unavailable ZABOROWSKI, J JOLANTA CLEAT FEEDER Unavailable Unavailable ZABOROWSKI, J JOLANTA CLEAT FEEDER Unavailable Unavailable ZABOROWSKI, J JOLANTA CLEAT FEEDER Unavailable Unavailable ZABOROWSKI, J JOLANTA CLEAT FEEDER Unavailable Unavailable ZABOROWSKI, J JOLANTA CLEAT FEEDER Unavailable Unavailable ZABOROWSKI, J JOLANTA CLEAT FEEDER Unavailable Unavailable ZABOROWSKI, J JOLANTA CLEAT FEEDER Unavailable Unavailable ZABOROWSKI, J JOLANTA CLEAT FEEDER Unavailable Unavailable ZABOROWSKI, J JOLANTA CLEAT FEEDER Unavailable Unavailable ZABOROWSKI, J JOLANTA CLEAT FEEDER Unavailable Unavailable ZABOROWSKI, J JOLANTA CLEAT FEEDER Unavailable Unavailable ZABOROWSKI, J JOLANTA CLEAT FEEDER Unavailable Unavailable ZABOROWSKI, J JOLANTA CLEAT FEEDER Unavailable Unavailable Ryan NEWELL MD Unavailable Unavailable [...] Unavailable SETTER, Ryan PURVIS MD Unavailable Unavailable MARK-CAROLEE, GERARDO DO Unavailable Unavailable [...] Unavailable Unavailable MARK-CAROLEE, GERARDO DO Unavailable Unavailable Sunita Sen MD Unavailable Unavailable [...] Al Mudamgha, A Ali MD Unavailable Unavailable Re-disclosure Warning The records that you are [...] is protected by Article 27-F of the [facility] Public Health law. If you continue you may have access to information: Regarding HIV / AIDS; Provided by facilities licensed or operated by the [facility] Office of Mental Health; or Provided by the [facility] Office for People With Developmental Disabilities. If such information is present, then the following [facility] mandated warning applies: This information [...] law may result in a fine or mcc sentence or both. A general authorization for the release of medical or other information is NOT sufficient authorization for further disc losure. Allergies and Adverse Reactions Type Description Substance Reaction Status Data Source(s ) Propensity to adverse reactions AMOXICILLIN Amoxicillin Rash [facility] Family History Family Member Name Family Member Gender Family Member Status Date o f Status Description Data Source(s) Unknown Female Problem (finding) 10/01/2011 12:00:00 AM EDT [facility] ([facility]) Encounters Encounter Providers Location Date Indications Data Source(s ) Outpatient Attender: Law Sen MD [email or web address] 01/02/2021 12:00:0 0 AM EDT [facility] Outpatient Attender: Amisha VELÁSQUEZ Main [facility] 12/17/2020 02:00:00 PM EDT [facility] ([facility]) [place] [address] [facility] [address] 12/13/2020 12:00:00 AM EDT eCW1 ([facility]) Outpatient Attender: Law CANALES-BF 12/12/2020 12:00:0 0 AM EDT [facility] Outpatient Attender: Law CANALES-BF 11/19/2020 12:00:0 0 AM EDT [facility] Unknown [address] [facility] [facility] [address] 11/15/2020 12:00:00 AM EDT eCW1 ([facility]) OFFICE/OUTPATIENT VISIT, ESTOutpatient Attender: Enrrique zhao NP 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 10/01/2020 02:06:00 PM EDT - 10/01/2020 02:06:00 PM EDT [facility] ( [facility]) Attender: Lucho Amador MD [facility] 09/26/2020 04:15:00 PM EDT - 09/26/2020 04:15:00 PM EDT [facility] ( [facility]) Outpatient Attender: JOLANTA MITCHELL NP BF-BF 02:23:28 PM EDT - 09/24/2020 03:36:29 PM EDT [facility] Outpatient Attender: Lexa VELÁSQUEZ [facility] 09/19/2020 04:15:00 PM EDT [facility]ENT ([facility]) Outpatient [address] [facility] [address] 09/13/2020 12:00:00 AM EDT eCW1 ([facility]) Wendi Dolan, CLEAT FEEDER: [id number], [address], [place] [address], Ph. Attender: Wendi UMANZOR [place] - [facility] - Main Office 09/10/2020 12:00:00 AM EDT ATHJob NA ([facility]) (Cysto1) Urology [address] [place] [address] 08/29/2020 12:00:00 AM EDT eCW1 ([facility]) Unknown [address] [facility] [id number] 08/29/2020 12:00:00 AM EDT eCW1 ([facility]) Outpatient [address] [facility] [id number] 08/21/2020 12:00:00 AM EDT eCW1 ([facility]) Outpatient Attender: Wing Moore MDConsultant: Matilde Moore MD BF-BF 08/17/2020 12:00:00 AM EDT - 08/17/2020 12:50:52 PM EDT [facility] Outpatient Attender: REAGAN AYALA MD Main office [facility] 08/16/2020 02:30:00 PM EDT MEDENT ([facility]) Outpatient [id number] 08/15/2020 01:35:02 PM EDT [facility] Attender: Lucho Amador MD [facility] 08/13/2020 01:14:00 PM EDT - 08/13/2020 01:14:00 PM EDT [facility] ( [facility]) Outpatient Attender: Law Sen MD BF-BF 08/13/2020 12:00:0 0 AM EDT [facility] Outpatient [address] [facility] [id number] 08/13/2020 12:00:00 AM EDT [facility]CW1 [facility] Unknown [address] [facility] [id number] 08/13/2020 12:00:00 AM EDT eCW1 ([facility] Outpatient [address] [facility] [id number] 08/10/2020 12:00:00 AM EST eCW1 ([facility]) Unknown [address] [facility] [place] [address] 08/10/2020 12:00:00 AM EST eCW1 ([facility]) Unknown [address] [facility] [facility] [address] 08/09/2020 12:00:00 AM EST eCW1 ([facility]) Outpatient [address] [facility] [place] [address] 08/08/2020 12:00:00 AM EST eCW1 ([facility]) Outpatient Attender: GERARDO OGLESBY [facility] 08/06/2020 12:20:00 PM EST MEDENT ([facility]) Attender: Enrrique Jama NP [facility] 08/01/2020 11:25:00 AM EST - 08/01/2020 11:25:00 AM EST [facility] ( [facility]) Wendi Dolan, CLEAT FEEDER: [address], [place] [address], Ph. Attender: Wendi Dolan [facility] 07/31/2020 12:00:00 AM EST ATHE NA ([facility]) Wendi Dolan CLEAT FEEDER: [address], [place] [address], Ph. Attender: Wendi Dolan [facility] 07/31/2020 12:00:00 AM EST ATHE NA ([facility]) Outpatient Attender: GERARDO OGLESBY [facility] 07/23/2020 09:00:00 AM EST MED[facility] ([facility]) Attender: [facility]o [facility]ador [facility] 07/16/2020 09:52:00 AM EST - 07/16/2020 09:52:00 AM EST [facility] ( [facility]) Outpatient Attender: GERARDO [facility] 07/11/2020 03:00:00 PM EST MEDENT ([facility]) Wendi Dolan, CLEAT FEEDER: [address], [place] [address], Ph. Attender: Wendi Dolan [facility] - [facility] 06/21/2020 12:00:00 AM EST ATHE NA ([facility]) Wendi Dolan, CLEAT FEEDER: [address], [place] [address], Ph. Attender: Wendi Dolan [facility] - [facility] 06/21/2020 12:00:00 AM EST ATHE NA ([facility]) Wendi Boudreauxsarmadmonty, CLEAT FEEDER: [address], [place] [address], Ph. Attender: Wendi Dolan [facility] - [facility] 06/21/2020 12:00:00 AM EST ATHE NA ([facility]) Attender: [facility]ulo [facility] 06/11/2020 01:34:00 PM EST - 06/11/2020 01:34:00 PM EST [facility] ([facility]) PHONE E/M BY PHYS 5-10 MIN Attender: Enrrique Jama NP 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 06/05/2020 02:30:00 PM EST - 06/05/2020 02:30:00 PM EST SigifredoGen ( [facility]) Attender: Enrrique Jama NP [facility] 05/31/2020 09:44:00 AM EST - 05/31/2020 09:44:00 AM EST NextGen ( [facility]) Outpatient Attender: GERARDO OGLESBY [facility] 05/23/2020 02:30:00 PM EST MEDENT ([facility]) Attender: Enrrique Jama NP [facility] 05/22/2020 03:34:00 PM EST - 05/22/2020 03:34:00 PM EST NextGen ( [facility]) Outpatient Attender: GERARDO OGLESBY [facility] 05/21/2020 02:40:00 PM EST MEDENT ([facility]) Attender: Lucho Amador MD [facility] 05/18/2020 09:34:00 AM EST - 05/18/2020 09:34:00 AM EST NextGen ( [facility]) Attender: Enrrique Jama NP [facility] 05/10/2020 09:13:00 AM EST - 05/10/2020 09:13:00 AM EST NextGen ( [facility]) Outpatient Attender: Law Sen MD [facility] 05/07/2020 01:23:2 7 PM EST [facility] Attender: Enrrique Jama NP [facility] 05/03/2020 09:13:00 AM EST - 05/03/2020 09:13:00 AM EST Next[facility] ( [facility]) Attender: Enrrique Jama NP [facility] 04/25/2020 04:06:00 PM EST - 04/25/2020 04:06:00 PM EST NextGen ( [facility]) Attender: Enrrique Jama NP 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 Attender: Wendi Dolan [facility] 03/30/2020 12:00:00 AM EDT ATHE NA ([facility]) Wendi Dolan, CLEAT FEEDER: [address], [place] [address], Ph. Attender: Wendi Dolan [facility] 03/30/2020 12:00:00 AM EDT ATHE NA ([facility]) Wendi Dolan, CLEAT FEEDER: [address], [place] [address], Ph. Attender: Wendi Dolan [facility] 03/30/2020 12:00:00 AM EDT ATHE NA ([facility]) Wendi Dolan, CLEAT FEEDER: [address], [place] [address], Ph. Attender: Wendi Dolan [facility] 03/30/2020 12:00:00 AM EDT ATHE NA ([facility]) Outpatient Attender: GERARDO OGLESBY DO [facility] 03/28/2020 11:20:00 AM EDT MEDENT ([facility]) Attender: JARRED ARREGUIN MD ([place]) 0 08:20:10 PM EDT [facility] Attender: JARRED ARREGUIN MD ([place]) 0 08:20:10 PM EDT [facility] Attender: JARRED ARREGUIN MD ([place]) 0 08:20:10 PM EDT [facility] Attender: Lucho Amador MD [facility] 02/28/2020 11:04:00 AM EDT - 02/28/2020 11:04:00 AM EDT NextGen ( [facility]) Attender: Lucho Amador MD [facility] 02/24/2020 03:55:00 PM EDT - 02/24/2020 03:55:00 PM EDT NextGen ( [facility]) OutpatientOFFICE/OUTPATIENT VISIT, EST Attender: Enrrique zhao NP [facility] 02/20/2020 11:40:00 AM EDT - 02/20/2020 11:40:00 AM ED T Pain in joint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Unspecified juvenile rheumatoid arthritis, multiple sites NextGen ([facility]) Pain in joint Other detention (current) drug therapy Unspecified juvenile rheumatoid arthriti s, multiple sites Attender: Enrrique Jama NP [facility] 02/08/2020 01:46:00 PM EDT - 02/08/2020 01:46:00 PM EDT NextGen ( [facility]) Outpatient Attender: Law Sen MD BF-BF 01/30/2020 12:00:0 0 AM EDT [facility] Outpatient Attender: GERARDO OGLESBY DO [facility] Medicine [facility] 01/26/2020 02:30:00 PM EDT MEDENT ([facility] y [facility]) OFFICE/OUTPATIENT VISIT, ESTOutpatient Attender: Enrrique zhao NP 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 Attender: Wendi Dolan [facility] 01/23/2020 12:00:00 AM EDT ATHE NA ([facility]) Wendi Dolan, CLEAT FEEDER: [address], [place] [address], Ph. Attender: Wendi Dolan [facility] - [facility] 01/23/2020 12:00:00 AM EDT ATHE NA ([facility]) Wendi Dolan, CLEAT FEEDER: [address], [place] [address], Ph. Attender: Wendi Dolan [facility] 01/23/2020 12:00:00 AM EDT ATHE NA ([facility]) Wendi Dolan, CLEAT FEEDER: [address], [place] [address], Ph. Attender: Wendi Dolan [facility] 01/23/2020 12:00:00 AM EDT ATHE NA ([facility]) Wendi Dolan, CLEAT FEEDER: [address], [place] [address], Ph. Attender: Wendi Dolan [facility] 01/23/2020 12:00:00 AM EDT ATHE NA ([facility]) Outpatient Attender: HYUN NEWELL MD [id number] 01/05/2020 12:00:00 AM EDT [facility] Outpatient Referrer: HYUN NEWELL MD 01/05/2020 12:0 0:00 AM EDT Presence of right artificial shoulder joint [facility] Presence of right artificial shoulder venessa int Wendi Dolan, CLEAT FEEDER: [address], [address], [place] [address], Ph. Attender: Wendi Dolan [facility] - [facility] 12/28/2019 12:00:00 AM EDT ATHE NA ([facility]) Wnedi Dolan, CLEAT FEEDER: [address], [address], [place] [address], Ph. Attender: Wendi Dolan [facility] - [facility] 12/28/2019 12:00:00 AM EDT ATHE NA ([facility]) Wendi Dolan, CLEAT FEEDER: [address], [place] [address], Ph. Attender: Wendi Dolan [facility] - [facility] 12/28/2019 12:00:00 AM EDT ATHE NA ([facility]) Wendi Dolan, CLEAT FEEDER: [address], [place] [address], Ph. Attender: Wendi Dolan [facility] - [facility] 12/28/2019 12:00:00 AM EDT ATHE NA ([facility]) Wendi Dolan, CLEAT FEEDER: [address], [address], [place] [address], Ph. Attender: Wendi Dolan [facility] - [facility] 12/28/2019 12:00:00 AM EDT ATHE NA ([facility]) Wendi Dolan, CLEAT FEEDER: [address], [place] [address], Ph. Attender: Wendialejandro Boudreauxsarmadmonty [facility] - [facility] 12/28/2019 12:00:00 AM EDT ATHE NA ([facility]) Outpatient Attender: Norma Ceballos RPA 12/21/2019 12:00:00 AM EDT [facility] Attender: JARRED ARREGUIN MD ([place]) 0 08:20:07 PM EDT [facility] Attender: JARRED ARREGUIN MD ([place]) 0 08:20:07 PM EDT [facility] Outpatient Attender: Lexa VELÁSQUEZ [facility] 12/19/2019 10:40:00 AM EDT MEDMIRELA ([facility]) Attender: JARRED ARREGUIN MD ([place]) 0 08:20:07 PM EDT [facility] Attender: [facility]ucho Amador [facility] 12/01/2019 08:51:00 AM EDT - 12/01/2019 08:51:00 AM EDT NextGen ( [facility]) Attender: [facility]ador [facility] 11/29/2019 04:42:00 PM EDT - 11/29/2019 04:42:00 PM EDT NextGen ( [facility]) Wendi Dolan, CLEAT FEEDER: [address], [place] [address], Ph. Attender: Wendi Dolan [facility] 11/29/2019 12:00:00 AM EDT ATHE NA ([facility]) Wendi Dolan, CLEAT FEEDER: [address], [place] [address], Ph. Attender: Wendi Dolan [facility] - [facility] Office 11/29/2019 12:00:00 AM EDT ATHE NA ([facility]) Wendi Dolan, CLEAT FEEDER: [address], [place] [address], Ph. Attender: Wendi Dolan [facility] 11/29/2019 12:00:00 AM EDT ATHE NA ([facility]) Wendi Dolan, CLEAT FEEDER: [address], [place] [address], Ph. Attender: Wendi Dolan [facility] 11/29/2019 12:00:00 AM EDT ATHE NA ([facility]) Wendi Dolan, CLEAT FEEDER: [address], [place] [address], Ph. Attender: Wendi Dolan [facility] 11/29/2019 12:00:00 AM EDT ATHE NA ([facility]) Wendi Dolan, CLEAT FEEDER: [address], [place] [address], Ph. Attender: Wendi Dolan [facility] 11/29/2019 12:00:00 AM EDT ATHJob NA ([facility]) Wendi Dolan, CLEAT FEEDER: [address], [place] [address], Ph. Attender: Wendi Dolan [facility] 11/29/2019 12:00:00 AM EDT ATHE NA ([facility]) Immunizations Vaccine Date Status Description Data Source(s) Covid 19 Pfizer Vaccine 08/24/2020 12:00:00 AM EDT completed Covid 19 Pfizer Vaccine Next[facility] ([facility]) Source: Other Provider COVID-19 VACCINE Pfizer 08/24/2020 12:00:00 AM EDT completed [place] Vaccine Series Complete: YESThis Data wa s Submitted to [facility] Via [facility]. Covid 19 Pfizer Vaccine 08/03/2020 12:00:00 AM EST completed Covid 19 Pfizer Vaccine NextGen ([facility]) Source: Other Provider COVID-19 VACCINE Pfizer 08/03/2020 12:00:00 AM EST completed [place] Vaccine Series Complete: NOThis Data was Submitted to [facility] Via [facility]. Influenza, injectable, MDCK, preservative free, jenny valent 02/20/2020 12:00:00 AM EDT completed Flucelvax NextGen ([facility]) Source: Other Provider Medications Medication Brand Name Start Date Product Form Dose Route Admi nistrative Instructions Pharmacy Instructions Status Indications Reaction Description Data Source(s) Diclofenac Sodium 75 MG Delayed Release Oral Tablet Diclofen ac Sodium 01/18/2021 12:00:00 AM EDT ORAL active M EDENT ([facility]) atorvastatin 40 MG Oral Tablet Atorvastatin Calcium 01/18/2021 1 2:00:00 AM EDT ORAL active MEDENT ( [facility]) Acetaminophen 325 MG / Hydrocodone Bitartrate 7.5 MG O ral Tablet Hydrocodone-Acetaminophen 01/18/2021 12:00:00 AM EDT active MEDENT ([facility]) Triamcinolone Acetonide 1 MG/ML Topical Cream Triamcinolone Acetonide 01/18/2021 12:00:00 AM EDT active M EDENT ([facility]) Spironolactone 25 MG Oral Tablet Spironolactone 01/18/2021 12:00:00 A M EDT ORAL active MEDENT ([facility]) 24 HR venlafaxine 225 MG Extended Release Oral Tablet Venlaf axine HCL ER 01/18/2021 12:00:00 AM EDT ORAL active MEDENT ([facility]) Leucovorin 5 MG Oral Tablet Leucovorin Calcium 01/18/2021 12:00:00 AM EDT active MEDENT ([facility]) Methotrexate 2.5 MG Oral Tablet Methotrexate 01/18/2021 12:00:00 AM EDT active MEDENT ([facility]) Tamsulosin hydrochloride 0.4 MG Oral Capsule Tamsulosin HCL 01/18/2021 12:00:00 AM EDT active MEDENT ([facility]) Amitriptyline Hydrochloride 50 MG Oral Tablet Amitriptyline HCL 01/18/2021 12:00:00 AM EDT ORAL active M EDENT ([facility]) eluxadoline 75 MG Oral Tablet [Viberzi] Viberzi 01/18/2021 12:00:0 0 AM EDT active MEDENT ([facility]) 12 HR Hyoscyamine Sulfate 0.375 MG Extended Release Or al Tablet Hyoscyamine Sulfate ER 01/18/2021 12:00:00 AM EDT active MEDENT ([facility]) Atropine Sulfate 0.025 MG / Diphenoxylate Hydrochlorid e 2.5 MG Oral Tablet Diphenoxylate-Atropine 01/18/2021 12:00:00 AM EDT ORAL active MEDENT ([facility]) Dicyclomine Hydrochloride 20 MG Oral Tablet Dicyclomine HCL 01/18/2021 12:00:00 AM EDT active MEDENT ([facility]) cevimeline 30 MG Oral Capsule Cevimeline HCL 01/18/2021 12:00:00 AM E DT ORAL active MEDENT ([facility]) docosahexaenoic acid 120 MG / Eicosapentaenoic Acid 18 0 MG Oral Capsule [facility] Fish Oil 01/18/2021 12:00:00 AM EDT active MEDENT ([facility]) Metoprolol Tartrate 50 MG Oral Tablet [Lopressor] Lopressor 01/18/2021 12:00:00 AM EDT ORAL active MEDENT ([facility]) rivaroxaban 20 MG Oral Tablet [Xarelto] Xarelto 01/18/2021 12:00:0 0 AM EDT ORAL active MEDENT ([facility]) 1 ML abatacept 125 MG/ML Prefilled Syringe [Orencia] Orencia 01/18/2021 12:00:00 AM EDT active [facility] Amiodarone hydrochloride 200 MG Oral Tablet Amiodarone HCL 01/18/2021 12:00:00 AM EDT active MEDENT ([facility]) Amiodarone hydrochloride 200 MG Oral Tablet amiodarone (PACERONE) 200 MG tablet amiodarone (PACERONE) 200 MG tablet 01/02/2021 12:00:00 AM EDT 200 mg Oral active Take 1 tablet (200 mg total) by mouth daily [facility] rivaroxaban 20 MG Oral Tablet rivaroxaban (Xarelto) 20 MG TABS rivaroxaban (Xarelto) 20 MG TABS 01/01/2021 12:00:00 AM EDT 20 mg Oral active Take 1 tablet (20 mg total) by mouth daily [facility] Catheters - UNK 11/16/2020 12:00:00 AM EDT suspen ded Catheters - eCW1 ([facility]) [facility] - 11/16/2020 12:00:00 A M EDT active [facility] - eCW1 ([facility]) [place] [facility] - 11/16/2020 12:00:00 A M EDT active [facility] - eCW1 ([facility]) Catheters - UNK 11/16/2020 12:00:00 AM EDT active Catheters - eCW1 ([facility]) Cyclobenzaprine hydrochloride 10 MG Oral Tablet cyclob enzaprine 10 mg tablet cyclobenzaprine 10 mg tablet 10/11/2020 12:00:00 AM EDT active TAKE 1 TABLET BY MOUTH 3 TIMES DAILY DIRECTED NextGen ([facility]) Leucovorin 5 MG Oral Tablet leucovorin calcium 5 mg ta blet leucovorin calcium 5 mg tablet 10/11/2020 12:00:00 AM EDT 1 {tbl} ORAL active take 1 tablet by oral route every week [facility] ([facility]) Orencia ClickJect 125 mg/mL subcutaneous auto-injector 1 ML abatacept 125 MG/ML Auto-Injector 10/11/2020 12:00:00 AM EDT 1.00 mL SUBCUTANEOUS active 1 ML abatacept 125 MG/ML Auto-Injector [Orencia] Next[facility] ([facility]) Methotrexate 2.5 MG Oral Tablet methotrexate sodium 2. 5 mg tablet methotrexate sodium 2.5 mg tablet 10/11/2020 12:00:00 AM EDT active take 8 Tablet by oral route every week [facility] ([facility]) cevimeline 30 MG Oral Capsule cevimeline 30 mg capsule cevim nohelia 30 mg capsule 10/11/2020 12:00:00 AM EDT active TAKE 1 CAPSULE BY MOUTH THREE TIMES A DAY [facility] ([facility]) 0.9 ML tocilizumab 180 MG/ML Prefilled S yringe [Actemra] Actemra 162 mg/0.9 mL subcutaneous syringe Actemra 162 mg/0.9 mL subcutaneous syringe 09/26/2020 12:00:00 AM EDT completed 0.9 ML tocilizumab 180 MG/ML Prefilled Syringe [Actemra] NextGen ([facility]) rivaroxaban 20 MG Oral Tablet rivaroxaban (Xarelto) 20 MG TABS rivaroxaban (Xarelto) 20 MG TABS 09/24/2020 12:00:00 AM EDT 20 mg Oral active Take 1 tablet (20 mg total) by mouth daily [facility] Metoprolol Tartrate 50 MG Oral Tablet me toprolol tartrate (LOPRESSOR) 50 MG tablet metoprolol tartrate (LOPRESSOR) 50 MG tablet 09/24/2020 12:0 0:00 AM EDT 50 mg Oral active Take 1 tablet (5 0 mg total) by mouth 2 (two) times a day [facility] doxycycline hyclate 100 MG Oral Tablet doxycycline ( BRA-TABS) 100 MG tablet doxycycline (VIBRA-TABS) 100 MG tablet 09/20/2020 12:00:00 AM EDT active Health system Levofloxacin 750 MG Oral Tablet Levofloxacin 09/19/2020 12:00:00 AM E DT ORAL active MEDENT ([facility]) Tamsulosin hydrochloride 0.4 MG Oral Capsule Tamsulosin HCL 08/28/2020 12:00:00 AM EDT active MEDENT ([facility]) Sulfamethoxazole 800 MG / Trimethoprim 1 60 MG Oral Tablet [Bactrim] Bactrim DS 800-160 MG Bactrim DS 800-160 MG 08/21/2020 12:00:00 AM EDT 1.0 {table t} active Bactrim DS 800-160 MG eCW1 ( [facility]) Sulfamethoxazole 800 MG / Trimethoprim 1 60 MG Oral Tablet [Bactrim] Bactrim DS 800-160 MG Bactrim DS 800-160 MG 08/21/2020 12:00:00 AM EDT 1.0 {table t} active Bactrim DS 800-160 MG eCW1 ( [facility]) Sulfamethoxazole 800 MG / Trimethoprim 1 60 MG Oral Tablet [Bactrim] Bactrim DS 800-160 MG Bactrim DS 800-160 MG 08/21/2020 12:00:00 AM EDT 1.0 {table t} active Bactrim DS 800-160 MG eCW1 ( [facility]) Sulfamethoxazole 800 MG / Trimethoprim 1 60 MG Oral Tablet [Bactrim] Bactrim DS 800-160 MG Bactrim DS 800-160 MG 08/21/2020 12:00:00 AM EDT 1.0 {table t} suspended Bactrim DS 800-160 MG eCW1 ( [facility]) Sulfamethoxazole 800 MG / Trimethoprim 1 60 MG Oral Tablet [Bactrim] Bactrim DS 800-160 MG Bactrim DS 800-160 MG 08/21/2020 12:00:00 AM EDT 1.0 {table t} active Bactrim DS 800-160 MG eCW1 ( [facility]) Sulfamethoxazole 800 MG / Trimethoprim 1 60 MG Oral Tablet [Bactrim] Bactrim DS 800-160 MG Bactrim DS 800-160 MG 08/21/2020 12:00:00 AM EDT 1.0 {table t} active Bactrim DS 800-160 MG eCW1 ( [facility]) Fluconazole 200 MG Oral Tablet Fluconazole 200 MG 08/13/2020 12:00: 00 AM EDT 1.0 {tablet} suspended Fluconazole 200 M G eCW1 ([facility]) Fluconazole 200 MG Oral Tablet Fluconazole 200 MG 08/13/2020 12:00: 00 AM EDT 1.0 {tablet} active Fluconazole 200 MG eCW1 ([facility]) Fluconazole 200 MG Oral Tablet Fluconazole 200 MG 08/13/2020 12:00: 00 AM EDT 1.0 {tablet} active Fluconazole 200 MG eCW1 ([facility]) Fluconazole 200 MG Oral Tablet Fluconazole 200 MG 08/13/2020 12:00: 00 AM EDT 1.0 {tablet} active Fluconazole 200 MG eCW1 ([facility]) Fluconazole 200 MG Oral Tablet Fluconazole 200 MG 08/13/2020 12:00: 00 AM EDT 1.0 {tablet} suspended Fluconazole 200 M G eCW1 ([facility]) Fluconazole 200 MG Oral Tablet Fluconazole 200 MG 08/13/2020 12:00: 00 AM EDT 1.0 {tablet} suspended Fluconazole 200 M G eCW1 ([facility]) Fluconazole 200 MG Oral Tablet Fluconazole 200 MG 08/13/2020 12:00: 00 AM EDT 1.0 {tablet} suspended Fluconazole 200 M G eCW1 ([facility]) Fluconazole 200 MG Oral Tablet Fluconazole 200 MG 08/13/2020 12:00: 00 AM EDT 1.0 {tablet} suspended Fluconazole 200 M G eCW1 ([facility]) cevimeline 30 MG Oral Capsule CEVIMELINE HCL 30 MG CAP NICOLASA CEVIMELINE HCL 30 MG CAPSULE 08/13/2020 12:00:00 AM EDT completed TAKE 1 CAPSULE BY MOUTH THREE TIMES A DAY Next[facility] ([facility]) 200 mg 08/13/2020 12:00:00 AM EDT tablet 1 ONE T ABLET BY MOUTH FOR ONE DOSE ONE TABLET BY MOUTH FOR ONE DOSE SOLD: 08/18/2020 [facility] Fluconazole 200 MG Oral Tablet Fluconazole 200 MG 08/13/2020 12:00: 00 AM EDT 1.0 {tablet} suspended Fluconazole 200 M G eCW1 ([facility]) Tamsulosin hydrochloride 0.4 MG Oral Capsule Tamsulosin HCL 08/06/2020 12:00:00 AM EST ORAL completed MEDENT ([facility]) Covid-19 vaccine, Unspecified 08/03/2020 12:00:00 AM EST completed MEDENT ([facility]) Medication administered onsite Methotrexate 2.5 MG Oral Tablet methotrexate sodium 2. 5 mg tablet methotrexate sodium 2.5 mg tablet 08/01/2020 12:00:00 AM EST completed take 8 Tablet by oral route every week Next[facility] ([facility]) Orencia ClickJect 125 mg/mL subcutaneous auto-injector 1 ML abatacept 125 MG/ML Auto-Injector 06/11/2020 12:00:00 AM EST 1.00 mL SUBCUTANEOUS completed 1 ML abatacept 125 MG/ML Auto-Injector [Orencia] NextG en ([facility]) Injection Ceftriaxone Sodium Per 250 MG (Rocephin) 05/23/2020 12:00:00 AM EST completed MEDENT ([facility]) Medication administered onsite Methotrexate 2.5 MG Oral Tablet methotrexate sodium 2. 5 mg tablet methotrexate sodium 2.5 mg tablet 05/22/2020 12:00:00 AM EST 8 {tbl} ORAL completed take 8 Tablet by oral route every week [facility] ([facility]) Methotrexate 2.5 MG Oral Tablet methotrexate sodium 2. 5 mg tablet methotrexate sodium 2.5 mg tablet 05/22/2020 12:00:00 AM EST completed take 8 Tablet by oral route every week [facility] ([facility]) Fluconazole 150 MG Oral Tablet Fluconazole 05/21/2020 12:00:00 AM EST completed [facility] ([facility]) Phenazopyridine hydrochloride 200 MG Oral Tablet [Pyridium] Pyridium 05/21/2020 12:00:00 AM EST ORAL completed [facility] ([facility]) Sulfamethoxazole 800 MG / Trimethoprim 160 MG Oral Tab let Sulfamethoxazole/Trimethoprim DS 05/21/2020 12:00:00 AM EST ORAL completed [facility] ([facility]) Nystatin 833921 UNT/ML Topical Cream Nystatin 05/21/2020 12:00:00 AM EST active [facility] ([facility]) Injection Ceftriaxone Sodium Per 250 MG (Rocephin) 05/21/2020 12:00:00 AM EST completed [facility] ([facility]) Medication administered onsite cevimeline 30 MG Oral Capsule CEVIMELINE HCL 30 MG CAP NICOLASA CEVIMELINE HCL 30 MG CAPSULE 05/18/2020 12:00:00 AM EST completed TAKE 1 CAPSULE BY MOUTH THREE TIMES A DAY [facility] ([facility]) Leucovorin 5 MG Oral Tablet LEUCOVORIN CALCIUM 5 MG TA B LEUCOVORIN CALCIUM 5 MG TAB 05/10/2020 12:00:00 AM EST 1 {tbl} ORAL completed [...] MG/Dose) 03/28/2020 12:00:00 AM EDT active [facility] ([facility]) Prednisone 5 MG Oral Tablet PREDNISONE 5 MG TABLET PREDNISON E 5 MG TABLET 02/28/2020 12:00:00 AM EDT 1 {tbl} ORAL active TAKE 1 TABLET BY MOUTH TWICE A DAY [facility] ([facility]) cevimeline 30 MG [...] route every week [facility] ([facility]) 0.9 ML tocilizumab 180 MG/ML Prefilled S yringe [Actemra] Actemra 162 mg/0.9 mL subcutaneous syringe Actemra 162 mg/0.9 mL subcutaneous syringe 02/20/2020 12:00:00 AM EDT completed 0.9 ML tocilizumab 180 MG/ML Prefilled Syringe [Actemra] [facility] ([facility]) Cyclobenzaprine hydrochloride 10 MG Oral Tablet cyclob enzaprine 10 mg tablet cyclobenzaprine 10 mg tablet 02/20/2020 12:00:00 AM EDT completed TAKE 1 TABLET BY MOUTH 3 TIMES DAILY DIRECTED [facility] ([facility]) Methotrexate 2.5 MG Oral Tablet methotrexate sodium 2. 5 mg tablet methotrexate sodium 2.5 mg tablet 01/26/2020 12:00:00 AM EDT 8 {tbl} ORAL completed take 8 Tablet by oral route every week [facility] ([facility]) Cefuroxime 500 MG Oral Tablet Cefuroxime Axetil 01/26/2020 12:00:00 A M EDT ORAL completed [facility] ([facility]) Prednisone 10 MG Oral Tablet Prednisone 01/26/2020 12:00:00 AM EDT completed [facility] ([facility]) 100 mg 12/06/2019 12:00:00 AM EDT tablet 90 TAKE ONE TABLET BY MOUTH EVERY DAY TAKE ONE TABLET BY MOUTH EVERY DAY SOLD: 12/09/2019 [facility] 0.9 ML tocilizumab 180 MG/ML Prefilled Syringe [Actemr a] ACTEMRA PFS 162MG/0.9M ACTEMRA PFS 162MG/0.9M 12/01/2019 12:00:00 AM EDT completed 0.9 ML tocilizumab 180 MG/ML Prefilled Syringe [Actemra] [facility] ([facility]) Prednisone 5 MG Oral [...] MOUTH EVERY WEEK [facility] ([facility]) Methotrexate 2.5 MG Oral Tablet METHOTREXATE 2.5MG METHOTREX ATE 2.5MG 08/08/2019 12:00:00 AM EDT 6 {tbl} ORAL completed TAKE 6 TABLETS BY MOUTH ONCE EVERY WEEK. [facility] ([facility]) Cyclobenzaprine hydrochloride 10 MG Oral Tablet cyclob enzaprine 10 mg tablet cyclobenzaprine 10 mg tablet 07/12/2019 12:00:00 AM EST completed TAKE 1 TABLET BY MOUTH 3 TIMES DAILY DIRECTED [facility] ([facility]) 0.9 ML tocilizumab 180 MG/ML Prefilled Syringe [Actemr a] ACTEMRA PFS 162MG/0.9M ACTEMRA PFS 162MG/0.9M 06/14/2019 12:00:00 AM EST completed 0.9 ML tocilizumab 180 MG/ML Prefilled Syringe [Actemra] [facility] ([facility]) Nystatin [id number] UNT/ML Oral Suspension nystatin 100,00 0 unit/mL oral suspension nystatin 100,000 unit/mL oral suspension 04/05/2019 12:00:00 AM EST completed take 5 milliliter by oral route 4 times every day for 2 weeks [facility] ([facility]) Metoprolol Tartrate 25 MG Oral Tablet me toprolol tartrate (LOPRESSOR) 25 MG tablet metoprolol tartrate (LOPRESSOR) 25 MG tablet 09/03/2018 12:0 0:00 AM EDT 25 mg Oral aborted Take 1 tablet (2 5 mg total) by mouth 2 (two) times a day [facility] Losartan Potassium 100 MG Oral Tablet losartan (COZAAR ) 100 MG tablet losartan (COZAAR) 100 MG tablet 05/29/2018 12:00:00 AM EST 100 mg Oral aborted Take 100 mg by mouth daily [facility] Diclofenac Sodium 75 MG Delayed Release Oral Tablet diclofenac (VOLTAREN) 75 MG EC tablet diclofenac (VOLTAREN) 75 MG EC tablet 06/29/2017 12:00:00 AM EST 75 mg Oral aborted Take 75 mg by mouth 2 (t wo) times a day [facility] gabapentin 300 MG Oral Capsule gabapentin (NEURONTIN) 300 MG capsule gabapentin (NEURONTIN) 300 MG capsule 04/24/2017 12:00:00 AM EST 300 mg Oral aborted Take 300 mg by mouth 2 (two) times a day [facility] Clindamycin 300 MG Oral Capsule clindamycin HCl 300 mg capsule clindamycin HCl 300 mg capsule completed clindam ycin 300 MG Oral Capsule [facility] ([facility]) Cefuroxime 500 MG Oral Tablet cefuroxime axetil 500 mg tablet cefuroxime axetil 500 mg tablet completed cefuroxi me 500 MG Oral Tablet [facility] ([facility]) potassium chloride SA (K-DUR,KLOR-CON) 10 MEQ tablet 95916-104-20 20 meq Oral aborted Take 20 mEq by mouth daily [facility] rifaximin 550 MG Oral Tablet [XIFAXAN] Xifaxan 550 mg tablet Xifaxan 550 mg tablet completed rifaximin 550 M G Oral Tablet [XIFAXAN] [facility] ([facility]) Cyclobenzaprine hydrochloride 10 MG Oral Tablet cyclob enzaprine 10 mg tablet cyclobenzaprine 10 mg tablet completed cyclobenzaprine hydrochloride 10 MG Oral Tablet [facility] ([facility]) Cyclosporine 0.5 MG/ML Ophthalmic Suspen jnaina cycloSPORINE (RESTASIS) 0.05 % ophthalmic emulsion cycloSPORINE (RESTASIS) 0.05 % ophthalmic emulsion 1 [drp] aborted Administer 1 drop to bot h eyes 2 (two) times a day [facility] Sulfamethoxazole 800 MG / Trimethoprim 1 60 MG Oral Tablet sulfamethoxazole 800 mg-trimethoprim 160 mg tablet TAKE 1 TABLET BY MOUTH TWICE A DAY FOR 10 DAYS sulfamethoxazole 800 mg-trimethoprim 160 mg tablet TAKE 1 TABLET BY MOUTH TWICE A DAY FOR 10 DAYS completed sulfamethoxazole 800 MG / trimethoprim 160 MG Oral Tablet [facility] ([facility]) Diclofenac Sodium 75 MG Delayed Release Oral Tablet diclofenac sodium 75 mg tablet,delayed release diclofenac sodium 75 mg tablet,delayed release completed diclofenac sodium 75 MG Katharine yed Release Oral Tablet [facility] ([facility]) rifaximin 550 MG Oral Tablet [XIFAXAN] Xifaxan 550 mg tablet Xifaxan 550 mg tablet completed rifaximin 550 M G Oral Tablet [XIFAXAN] [facility] ([facility]) Diclofenac Sodium 25 MG Delayed Release Oral Tablet diclofenac sodium 25 mg tablet,delayed release Take 1 tablet twice a day by oral route. diclofenac sodium 25 mg tablet,delayed release Take 1 tablet twice a day by oral route. 1 completed diclofenac sod ium 25 MG Delayed Release Oral Tablet [facility] ([facility]) Sulfamethoxazole 800 MG / Trimethoprim 1 60 MG Oral Tablet sulfamethoxazole 800 mg-trimethoprim 160 mg tablet TAKE 1 TABLET BY MOUTH TWICE A DAY FOR 10 DAYS sulfamethoxazole 800 mg-trimethoprim 160 mg tablet TAKE 1 TABLET BY MOUTH TWICE A DAY FOR 10 DAYS completed sulfamethoxazole 800 MG / trimethoprim 160 MG Oral Tablet [facility] ([facility]) Actemra 1 injection every week completed Actemra [facility] ([facility]) potassium citrate 10 MEQ Extended Releas e Oral Tablet potassium citrate (UROCIT- K) 10 MEQ (1080 MG) SR tablet potassium citrate (UROCIT-K) 10 MEQ (108 0 MG) SR tablet 20 meq Oral aborted Take 20 mEq by m outh 2 (two) times a day [facility] Dicyclomine Hydrochloride 10 MG Oral Capsule dicyclomi ne 10 mg capsule dicyclomine 10 mg capsule completed dicyclomine hydrochloride 10 MG Oral Capsule [facility] ([facility]) Hydrochlorothiazide 25 MG Oral Tablet hy drochlorothiazide (HYDRODIURIL) 25 MG tablet hydrochlorothiazide (HYDRODIURIL) 25 MG tablet 25 mg O ral aborted Take 25 mg by mouth daily [facility] 24 HR venlafaxine 75 MG Extended Release Oral Capsule venlafaxine (EFFEXOR-XR) 75 MG 24 hr capsule venlafaxine (EFFEXOR-XR) 75 MG 24 hr capsule 75 mg Oral aborted Take 75 mg by mouth daily Along with 150mg dose for 225mg total [facility] Amitriptyline Hydrochloride 25 MG Oral Tablet amitript yline 25 mg tablet amitriptyline 25 mg tablet completed amitriptyline hydrochloride 25 MG Oral Tablet [facility] ([facility]) Prednisone 10 MG Oral Tablet prednisone 10 mg tablet prednisone 10 mg tablet completed prednisone 10 MG Oral Tablet [facility] ([facility]) Prednisone 10 MG Oral Tablet prednisone 10 mg tablet prednisone 10 mg tablet completed prednisone 10 MG Oral Tablet [facility] ([facility]) Diclofenac Sodium 25 MG Delayed Release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 50-159 [facility] ([facility]) ID Date Data Source [id number] 01/18/2021 11:43:00 AM EDT [facility] ([facility]) Name Value Range Interpretation Code Description Data Nancy rce(s) Supporting Document(s) Glucose [Mass/volume] in Serum or Plasma 112 mg/dL 74-99 [facility] ([facility]) 100-125 mg/dL PRE-DIABETES/FASTING >126 mg/dL DIABETES/FASTING Creatinine 0.9 mg/dL 0.6-1.3 MED[facility] ([facility]) Urea nitrogen [Mass/volume] in Serum or Plasma 17 mg/dL 7-18 MED[facility] ([facility]) Sodium [Moles/volume] in Serum or Plasma 140 meq/L 136-145 [facility] ([facility]) Potassium [Moles/volume] in Serum or Plasma 3.2 meq/L 3.5-5.1 [facility] ([facility]) NOTE: RESULT VERIFIED. Carbon dioxide, total [Moles/volume] in Serum or Plasma 30 meq/L 21 -32 [facility] ([facility]) Chloride [Moles/volume] in Serum or Plasma 103 meq/L 98-107 [facility] ([facility]) Alkaline phosphatase isoenzyme [Units/volume] in Serum or Pl asma 82 mg/dL 46-116 [facility] ([facility]) Calcium [Mass/volume] in Serum or Plasma 8.7 mg/dL 8.5-10.1 [facility] Total Bilirubin 0.3 mg/dL 0.2-1.0 [facility] ([facility]) Aspartate aminotransferase [Enzymatic activity/volume] in Serum or Plasma 23 U/L 15-37 [facility] ([facility] ) Proteinase 3 Ab [Units/volume] in Serum 7.0 g/dL 6.4-8.2 [facility] ([facility]) Albumin [Mass/volume] in Serum or Plasma 4.0 g/dL 3.4-5.0 [facility] ([facility]) Alanine aminotransferase [Enzymatic activity/volume] in Seru m or Plasma 32 U/L 12-78 [facility] Glomerular filtration rate/1.73 sq M pre dicted among non-blacks [Volume Rate/Area] in Serum or Plasma by Creatinine-based formula (MDRD) Laboratory test result [facility] A/G Ratio 1.33 CALC 1.00-1.90 [facility]) Glomerular filtration rate/1.73 sq M pre dicted among blacks [Volume Rate/Area] in Serum or Plasma by Creatinine-based formula (MDRD) Laboratory test result MEDENT ([facility]) <content>CHRONIC KIDNEY DISEASE STAGING PER NKF</content>
<content></content>
<content>STAGE I & II GFR >= 60 NORMAL TO MILDLY DECREASED</content>
<content>STAGE III GFR 30-59 MODERATELY DECREASED</content>
<content>STAGE IV GFR 15-29 SEVERELY DECREASED</content>
<content>STAGE V GFR <15 VERY LITTLE GFR LEFT</content>
<content>ESRD GFR <15 ON APPRAISER ART</content>
<content></content> ID Date Data Source [id number] 01/18/2021 11:43:00 AM EDT MED[facility] ([facility]) Name Value Range Interpretation Code Description Data Nancy rce(s) Supporting Document(s) Erythrocytes [#/volume] in Blood by Automated count 4.04 x10*6/UL 4.2 0-6.30 [facility] ([facility]) Leukocytes [#/volume] in Blood by Automated count 8.6 x10*3/UL 4.1-10 .9 [facility] ([facility]) Hematocrit [Volume Fraction] of Blood by Automated count 36.1 % 3 7.0-51.0 [facility] ([facility]) Hemoglobin [Mass/volume] in Blood 12.8 g/dL 12.0-18.0 [facility] ([facility]) MCH 31.7 pg 26.0-32.0 [facility]) MCV 89.4 fL 80.0-97.0 [facility] ([facility]) MCHC 35.5 g/dL 31.0-38.0 [facility] ([facility]) Erythrocyte distribution width [Ratio] by Automated count 13.2 % 11.6-13.7 [facility] ([facility]) Platelets [#/volume] in Blood by Automated count 340 x10*3/UL 140-440 [facility] ([facility]) MPV 7.4 FL 7.8-11.0 [facility]) Mid % 6.1 % 1.7-9.3 [facility] Lymph % 28.4 % 10.0-58.5 [facility]) Lymph # 2.4 x10*3/UL 0.6-4.1 [facility] ([facility]) Neut % 65.5 % 37.0-92.0 [facility]) Mid # 0.6 x10*3/UL 0.1-0.6 [facility] ([facility]) Neut # 5.6 x10*3/UL 2.0-7.8 [facility] ([facility]) ID Date Data Source [id number] 01/02/2021 09:57:11 AM [facility] Name Date of Age Gend*PT [id number] Elena Marroquin 1965 55 years F ---PT Location Admission Date/Time Visit ID Attending Provider --- --- --- --- EPI ID CSN Admitting Provider [id number] ---[facility] [id number] [facility] [address], [address] (First Floor)[place], [place] [address]Qd.: Fax: Xatient: Elena Marroquin : 1965Date: 01/02/21CARDIOLOGY TELEMEDICINE VISITPatient was identified by name and date of .Verbal consent was obtained from the patient for this telemedicine visit.Patient is aware of the risks, limitations, and benefits of a telemedicinevisit.This telemedicine assessment was conducted remotely with the assistance ofgloStream communication technology. Telephone Only Codes [id number]: 21-30 minutesof medical discussion: Telephone Only .Subjective:Elena Marroquin is 55 years female with atrial fibrillationHISTORY OF PRESENT ILLNESS: Patient is evaluated today for atrial fibrillation.She has had some episodes of atrial fibrillation detected by her ICD whichresulted in inappropriate shocks. Both episodes occurred very quickly. Thepatient is petrified of another ICD shock. She has been placed on metoprololand has not had any recurrence at this time.Past Medical History:Diagnosis Date Anxiety and depression 09/02/2018 BMI 36.0-36.9,adult Chronic low back pain Chronic prescription benzodiazepine use Chronic prescription opiate use Essential hypertension Exposure to second hand tobacco smoke father "five packs per day" Fibromyalgia 09/02/2018 History of Shay-en-Y gastric bypass 2008 @ [facility] Dr. Garrido History of systemic steroid therapy quit around 2016 HLD (hyperlipidemia) Hx Bigeminal rhythm - perioperative noted in the past years ago Juvenile rheumatoid arthritis Dx 8 yo Menstrual migraine resolved after hysterectomy years ago NEVILLE on CPAP Sjoegren syndrome 09/02/2018 Well controlled type 2 diabetes mellitus just metformin and dietFAMILY HISTORY: family history includes COPD in her father; Coronary arterydisease (age of onset: 58) in her mother.SOCIAL HISTORY: reports that she is a non-smoker but has been exposed totobacco smoke. She has never used smokeless tobacco. She reports that she doesnot drink alcohol and does not use drugs.REVIEW OF SYSTEMS: Constitutional: Denies palpitations. Denies fever, chills,weight loss or gain. Eyes: Denies blindness. Cardiovascular: Denies chestpain. Respiratory: Denies shortness of breath and dyspnea on exertion. GI:Denies abdominal pain, nausea or vomiting. : Denies dysuria or hematuria.Musculoskeletal: Negative lower extremity edema. Integumentary: Denies rash.Neurologic: Denies seizures. Psychiatric: Denies depression or anxiety.Hematologic: Denies anemia.Current Outpatient Medications: abatacept (ORENCIA) 250 MG injection, Infuse into a venous catheter, Disp: ,Rfl: acetaminophen (Tylenol 8 Hour Arthritis Pain) 650 MG CR tablet, Take 650 mgby mouth every 8 (eight) hours as needed for pain, Disp: , Rfl: amitriptyline (ELAVIL) 50 MG tablet, Take 50 mg by mouth nightly, Disp: ,Rfl: atorvastatin (LIPITOR) 40 MG tablet, Take 40 mg by mouth daily, Disp: , Rfl: cevimeline (EVOXAC) 30 MG capsule, Take 30 mg by mouth 2 (two) times a dayAnd prn, Disp: , Rfl: clonazePAM (KLONOPIN) 1 MG disintegrating tablet, Take 1 mg by mouth 2 (two)times a day as needed , Disp: , Rfl: clonazePAM (KlonoPIN) 2 MG tablet, Take 2 mg by mouth nightly as needed foranxiety, Disp: , Rfl: cyclobenzaprine (FLEXERIL) 10 MG tablet, Take 20 mg by mouth nightly asneeded for muscle spasms , Disp: , Rfl: dicyclomine (BENTYL) 10 MG capsule, Take 20 mg by mouth 4 (four) times a daybefore meals and nightly, Disp: , Rfl: diphenoxylate-atropine (LOMOTIL) 2.5-0.025 MG per tablet, Take 1 tablet bymouth 4 (four) times a day as needed for diarrhea, Disp: , Rfl: doxycycline (VIBRA-TABS) 100 MG tablet, , Disp: , Rfl: Eluxadoline (VIBERZI) 75 MG TABS, Take by mouth, Disp: , Rfl: HYDROcodone-acetaminophen (NORCO) 7.5-325 MG per tablet, Take 1 tablet bymouth every 8 (eight) hours as needed for pain, Disp: , Rfl: hyoscyamine (LEVBID) 0.375 MG 12 hr tablet, hyoscyamine ER 0.375 mgtablet,extended release,12 hr TAKE 1 TABLET BY MOUTH TWICE A DAY, Disp: , Rfl: leucovorin (WELLCOVORIN) 5 MG tablet, Take 5 mg by mouth once a week OnT, Disp: , Rfl: losartan (COZAAR) 100 MG tablet, losartan 100 mg tablet TAKE 1 TABLET BYMOUTH ONCE DAILY, Disp: , Rfl: methotrexate 2.5 MG tablet, Take 20 mg by mouth once a week on Thursday ,Disp: , Rfl: metoprolol tartrate (LOPRESSOR) 50 MG tablet, Take 1 tablet (50 mg total) bymouth 2 (two) times a day, Disp: 180 tablet, Rfl: 3 Multiple Vitamins-Iron (MULTIVITAMIN WITH IRON) TABS, Take 1 tablet by mouthdaily, Disp: , Rfl: nystatin (MYCOSTATIN) cream, nystatin 100,000 unit/gram topical cream APPLYTO RASH UNDER THE ABDOMINAL SKIN FOLDS TWICE DAILY, Disp: , Rfl: OMEGA-3 FATTY ACIDS PO, Take 2 capsules by mouth daily, Disp: , Rfl: rivaroxaban (Xarelto) 20 MG TABS, Take 1 tablet (20 mg total) by mouth daily,Disp: 90 tablet, Rfl: 3 spironolactone (ALDACTONE) 25 MG tablet, spironolactone 25 mg tablet TAKE 1TABLET BY MOUTH EVERY DAY, Disp: , Rfl: tamsulosin (FLOMAX) 0.4 MG CAPS, Take 0.4 mg by mouth daily, Disp: , Rfl: venlafaxine (EFFEXOR-XR) 150 MG 24 hr capsule, Take 150 mg by mouth dailyAlong with 75mg dose for 225mg total, Disp: , Rfl: venlafaxine (EFFEXOR-XR) 75 MG 24 hr capsule, Take 75 mg by mouth daily Takewith the 150 mg daily, Disp: , Rfl:ALLERGIES: is allergic to amoxicillin, erythromycin, penicillins, and venomilhoney bee venom [honey bee venom].Objective:PHYSICAL EXAMINATION: Deferred due to Telemedicine encounterSTUDIES REVIEWED: Previous notes and [facility] transmissionsEKG: Deferred due to telemedicine encounter.Assessment/Plan:ASSESSMENT/PLAN: This is a 55 years female With a history of atrialfibrillation. I had a long discussion with the patient regarding the anatomicaland physiological basis of atrial fibrillation, specifically as it relates tothe pulmonary veins of the left atrium. We discussed medical management,specifically as it relates to a rhythm versus rate controlling strategy. Wewent over the results of the AFFIRM, RACE, and STAR-AF trials in detail.Medical therapy was also discussed. The suppressi on rates for 1A, 1C, Class 3antiarrhythmic drugs, beta blockers, calcium channel blockers, and digoxin wasexplained, as well as the risk for ventricular proarrhythmia was explained.A rate controlling strategy was also discussed in detail as it relates topharmacological therapy using digoxin, beta-blockers, and calcium channelblockers. Also an ablate and pace strategy was explained.EP guided therapy targeting AFib triggers was explained in detail. Thetechnique of pulmonary vein isolation with both radiofrequency energy, as wellas cryoablation was discussed. It was explained to the patient that isolationof the pulmonary vein was the cornerstone for ablation of atrial fibrillation.In addition, in need for repeat ablation was quoted at up to 30%. It was alsoexplained to the patient that in the 1st 3 months post ablation there would kalyn improvement as this is considered the blanking period . In addition it maytake up to year for reverse remodeling to be seen and it may take up to yearbefore a 2nd procedure if needed is offered. During the blanking. It wasexplained to the patient that cardioversion may be needed as well as thepossibility that an antiarrhythmic drug would also need to be used. It wasstressed that within the 1st 3 months post ablation, anticoagulation witheitherCoumadin or 1 of the NOAC's was mandatory regardless of the chads 2vascular score. Entrance into the left atrium via transseptal approach wasexplained. The increased risk of a transseptal was also discussed.The risk of the procedure including but not limited to, vascular injury,perforation, tamponade, pneumothorax, atrial esophageal fistula, phrenic nerveinjury, need for emergent open heart surgery, stroke, and were allexplained. The need for preprocedure CTA to assess pulmonary venous anatomy wasdiscussed. In addition it was explained to the patient that on the day of theprocedure transesophageal ECHO was required to rule out left atrial appendagethrombus. Lastly the need for a general anesthetic and its inherent risks wasalso discussed.At this point the patient would like to proceed with ablation she will bescheduled on an elective basis. In the interim because the patient has such ahigh level of anxiety about getting another ICD shock we will start her onamiodarone and the amiodarone 3 months post ablationThis document or parts of this document, were dictated using DigitalVision. A reasonable attempt at proofreading has been made to minimize errors.Please call with any questions or corrections.I have spent 25 minutes with the patient, counseling/coordinating the patient'scare. I discussed the diagnosis of atrial fibrillation and discussed Managementoption risks and benefitsFollow Up cryoablationSignature: Law Vasquez MD, [facility], RSCardiac Electrophysiology and Arrhythmia ServiceDate: January 02, 2021Time: 9:48 AMThis document or parts of this document, were dictated using DigitalVision. A reasonable attempt at proofreading has been made to minimize errors.Please call with any questions or corrections. Name Value Range Interpretation Code Description Data Nancy rce(s) Supporting Document(s) ID Date Data Source [id number] 12/12/2020 01:38:48 PM [facility]T [facility]FORMATIONPatient MRN Name Date of Age Gend*PT [id number] Elena Marroquin 1965 55 years F ---PT Location Admission Date/Time Visit ID Attending Provider --- --- --- --- EPI ID CSN Admitting Provider [id number] ---Name: Elena MarroquinDOB: 1965Date: 12/12/20CIED Remote CheckImplanted Device 07/11/2019Device Lozenge Maker MedtronicDevice type Single Chamber ICDMRI Conditional Device -Device was remotely interrogated and the following were evaluated:Battery statusSummary arrhythmia logsNew observationsFidelity of the EGM signalIntegrity of leads and lead impendence were reevaluatedConclusion:Normal ICD function.No significant changes continue to monitor.Signature: Law Vasquez MD, [facility], RSCardiac Electrophysiology and Arrhythmia ServiceDate: December 12, 2020Time: 1:38 PMThis document or parts of this document, were dictated using HipLogic. A reasonable attempt at proofreading has been made to minimize errors.Please call with any questions or corrections. Name Value Range Interpretation Code Description Data [facility] rce(s) Supporting Document(s) ID Date Data Source [id number] 11/20/2020 08:23:14 AM EDT [facility] INFORMATIONPatient MRN Name Date of Age Gend*PT [id number] Elena Marroquin 1965 55 years F ---PT Location Admission Date/Time Visit ID Attending Provider --- --- --- --- EPI ID CSN Admitting Provider [id number] ---Heart Failure Management ReportPatient has a history of ventricular tachycardia. According to this report,patient has not had VT/VF. There is evidence of AT/AF; patient is on Xareltofor anticoagulation. In regards to Optivol, patient has not crossed fluidthreshold. Average ventricular response at night is 65.Jolanta Mitchell NPThijerzy document or parts of this document, were dictated using HipLogic. A reasonable attempt at proofreading has been made to minimize errors.Please call with any questions or corrections. Name Value Range Interpretation Code Description Data Nancy rce(s) Supporting Document(s) ID Date Data Source [id number] 11/19/2020 06:17:31 PM EDT [facility] INFORMATIONPatient MRN Name Date of Age Gend*PT [id number] Elena Marroquin 1965 55 years F ---PT Location Admission Date/Time Visit ID Attending Provider --- --- --- --- EPI ID CSN Admitting Provider [id number] ---Name: Elena MarroquinDOB: 1965Date: 11/19/20CIED Remote CheckImplanted Device 07/11/2019Device Lozenge Maker MedtronicDevice type Single Chamber ICDMRI Conditional Device -Device was remotely interrogated and the following were evaluated:Battery statusSummary arrhythmia logsNew observationsFidelity of the EGM signalIntegrity of leads and lead impendence were reevaluatedConclusion:Normal ICD function.No significant changes continue to monitor.Signature: Law Vasquez MD, [facility], RSCardiac Electrophysiology and Arrhythmia ServiceDate: November 19, 2020Time: 6:17 PMThis document or parts of this document, were dictated using WaveSyndicateware. A reasonable attempt at proofreading has been made to minimize errors.Please call with any questions or corrections. Name Value Range Interpretation Code Description Data Nancy rce(s) Supporting Document(s) ID Date Data Source [id number] 10/11/2020 10:04:00 AM EDT [facility] ([facility]) Name Value Range Interpretation Code Description Data Nancy rce(s) Supporting Document(s) <0.2 0.0-0.5 CRP [facility] ([facility]) ID Date Data Source [id number] 10/11/2020 10:04:00 AM EDT [facility] ([facility]) Name Value Range Interpretation Code Description Data Nancy rce(s) Supporting Document(s) 0.9 mg/dL 0.6-1.2 CREATININE [facility] ([facility]) >60 eGFR [facility] ([facility]) >60 eGFR Non- [facility] ([facility]) ID Date Data Source [id number] 10/11/2020 10:04:00 AM EDT [facility] ([facility]) Name Value Range Interpretation Code Description Data Nancy rce(s) Supporting Document(s) 14 mg/dL 10-23 BUN [facility] ([facility]) ID Date Data Source [id number] 10/11/2020 10:04:00 AM EDT [facility] ([facility]) Name Value Range Interpretation Code Description Data Nancy rce(s) Supporting Document(s) 20 U/L 15-37 AST [facility] ([facility]) ID Date Data Source [id number] 10/11/2020 10:04:00 AM EDT [facility] ([facility]) Name Value Range Interpretation Code Description Data Nancy rce(s) Supporting Document(s) 35 U/L 30-65 ALT [facility] ([facility]) ID Date Data Source [id number] 10/11/2020 10:04:00 AM EDT [facility] ([facility]) Name Value Range Interpretation Code Description Data Nancy rce(s) Supporting Document(s) 3.8 g/dL 3.4-4.4 ALB [facility] ([facility]) ID Date Data Source [id number] 10/11/2020 10:04:00 AM EDT [facility] ([facility]) Name Value Range Interpretation Code Description Data Nancy rce(s) Supporting Document(s) 24 mm/Hr 0-20 Above high normal ESR [facility] ([facility]) ID Date Data Source [id number] 10/11/2020 10:04:00 AM EDT [facility] ([facility]) Name Value Range Interpretation Code Description Data Nancy rce(s) Supporting Document(s) 7.6 10*3/uL 3.7-10.1 WBC [facility] ([facility]) 4.38 10*6/uL 3.50-5.50 RBC [facility]) 42.5 % 36.0-48.0 HCT [facility] 13.3 g/dL 12.0-16.0 HGB [facility]) 31.3 g/dL 31.0-37.0 MCHC [facility] ([facility]) 30.4 pg 26.0-34.0 MCH [facility]) 97.0 fL 80.0-100.0 MCV [facility] ([facility]) 310 10*3/uL 150-500 PLATELETS [facility] ([facility]) 13.3 % 10.0-15.0 RDW [facility] 7.5 fL 6.0-10.0 MPV [facility]) 5.02 10*3/uL 2.10-8.00 NED# [facility] ([facility]) 1.69 10*3/uL 1.00-5.00 LYM# [facility] ([facility]) 0.57 10*3/uL 0.10-1.00 MONO# [facility] ([facility]) 0.2 10*3/uL 0.0-0.5 EOS# [facility] ([facility]) 0.1 10*3/uL 0.0-0.2 BASO# [facility] ([facility]) 22.2 % 25.0-50.0 Below low normal LYM% [facility] 65.7 % 50.0-80.0 NED% [facility] 2.8 % 0.0-5.0 EOS% [facility] 7.4 % 2.0-10.0 MONO% [facility] 1.8 % 0.0-4.0 BASO% [facility]) ID Date Data Source [id number] 10/03/2020 12:17:24 PM EDT [facility] INFORMATIONPatient MRN Name Date of Age Gend*PT [id number] Elena Marroquin 1965 55 years F ---PT Location Admission Date/Time Visit ID Attending Provider --- --- --- --- EPI ID CSN Admitting Provider [id number] ---[facility] [address], [address] (First Floor)[place], [place] [address]Uc.: Fax: Katient: Elena Marroquin : 1965Date: 10/03/20CARDIOLOGY TELEMEDICINE VISITPatient was identified by name and date of .Verbal consent was obtained from the patient for this telemedicine visit.Patient is aware of the risks, limitations, and benefits of a telemedicinevisit.This telemedicine assessment was conducted remotely with the assistance ofgloStream communication technology. Telephone Only Codes [id number]: 21-30 minutesof medical discussion: Telephone Only .Subjective:Elena Marroquin is 55 years female with a dilated cardiomyopathyHISTORY OF PRESENT ILLNESS: The patient is evaluated today after she had anepisode on September 19 when her defibrillator fired because of atrial fibrillation.She tells me that she was extremely sick that day. She had not taken any of hermedication. She was found to have a pneumonia. She was having all sorts of GIissues and states all she was doing was drinking water and coffee. She had anepisode of atrial fibrillation detected by her ICD which resulted in aninappropriate shock. At the time she was also found to be hypokalemic with apotassium of 2.5. She was placed on Xarelto and her metoprolol was increased.She has not had any episodes since and today feels good without any complaints.PHx:1. History of VT status post AICD placement which is followed by . Previous cardiac catheterization revealed no obstructive CAD 09/02/20183. Irritable bowel syndrome4. Rheumatoid arthritis5. Hypertension6. Echocardiogram 09/02/2018 revealed normal EF7. Sleep apnea utilizing CPAP8. Hyperlipidemia and is on a statin9. Patient admitted on September 19, 2020 to [facility] after receiving ashock from her defibrillator. Her device was interrogated and it was felt thatshe had an SVT and after further review was felt that she had atrialfibrillation. She was also noted to be hypokalemic with a potassium 2.5. Shewas started on Xarelto and metoprolol was increased.FAMILY HISTORY: family history includes COPD in her father; Coronary arterydisease (age of onset: 58) in her mother.SOCIAL HISTORY: reports that she is a non-smoker but has been exposed totobacco smoke. She has never used smokeless tobacco. She reports that she doesnot drink alcohol and does not use drugs.REVIEW OF SYSTEMS: Constitutional: Denies syncope. Denies fever, chills, weightloss or gain. Eyes: Denies blindness. Cardiovascular: Denies palpitations.Respiratory: Denies shortness of breath and dyspnea on exertion. GI: Deniesabdominal pain, nausea or vomiting. : Denies dysuria or hematuria.Musculoskeletal: Negative lower extremity edema. Integumentary: Denies rash.Neurologic: Denies seizures. Psychiatric: Denies depression or anxiety.Hematologic: Denies anemia.Current Outpatient Medications: abatacept (ORENCIA) 250 MG injection, Infuse into a venous catheter, Disp: ,Rfl: acetaminophen (Tylenol 8 Hour Arthritis Pain) 650 MG CR tablet, Take 650 mgby mouth every 8 (eight) hours as needed for pain, Disp: , Rfl: amitriptyline (ELAVIL) 50 MG tablet, Take 50 mg by mouth nightly, Disp: ,Rfl: atorvastatin (LIPITOR) 40 MG tablet, Take 40 mg by mouth daily, Disp: , Rfl: cevimeline (EVOXAC) 30 MG capsule, Take 30 mg by mouth 2 (two) times a dayAnd prn, Disp: , Rfl: clonazePAM (KLONOPIN) 1 MG disintegrating tablet, Take 1 mg by mouth 2 (two)times a day as needed , Disp: , Rfl: clonazePAM (KlonoPIN) 2 MG tablet, Take 2 mg by mouth nightly as needed foranxiety, Disp: , Rfl: cyclobenzaprine (FLEXERIL) 10 MG tablet, Take 20 mg by mouth nightly asneeded for muscle spasms , Disp: , Rfl: dicyclomine (BENTYL) 10 MG capsule, Take 20 mg by mouth 4 (four) times a daybefore meals and nightly, Disp: , Rfl: diphenoxylate-atropine (LOMOTIL) 2.5-0.025 MG per tablet, Take 1 tablet bymouth 4 (four) times a day as needed for diarrhea, Disp: , Rfl: doxycycline (VIBRA-TABS) 100 MG tablet, , Disp: , Rfl: Eluxadoline (VIBERZI) 75 MG TABS, Take by mouth, Disp: , Rfl: HYDROcodone-acetaminophen (NORCO) 7.5-325 MG per tablet, Take 1 tablet bymouth every 8 (eight) hours as needed for pain, Disp: , Rfl: hyoscyamine (LEVBID) 0.375 MG 12 hr tablet, hyoscyamine ER 0.375 mgtablet,extended release,12 hr TAKE 1 TABLET BY MOUTH TWICE A DAY, Disp: , Rfl: leucovorin (WELLCOVORIN) 5 MG tablet, Take 5 mg by mouth once a week , Disp: , Rfl: losartan (COZAAR) 100 MG tablet, losartan 100 mg tablet TAKE 1 TABLET BYMOUTH ONCE DAILY, Disp: , Rfl: methotrexate 2.5 MG tablet, Take 20 mg by mouth once a week on Thursday ,Disp: , Rfl: metoprolol tartrate (LOPRESSOR) 50 MG tablet, Take 1 tablet (50 mg total) bymouth 2 (two) times a day, Disp: 180 tablet, Rfl: 3 Multiple Vitamins-Iron (MULTIVITAMIN WITH IRON) TABS, Take 1 tablet by mouthdaily, Disp: , Rfl: nystatin (MYCOSTATIN) cream, nystatin 100,000 unit/gram topical cream APPLYTO RASH UNDER THE ABDOMINAL SKIN FOLDS TWICE DAILY, Disp: , Rfl: OMEGA-3 FATTY ACIDS PO, Take 2 capsules by mouth daily, Disp: , Rfl: rivaroxaban (Xarelto) 20 MG TABS, Take 1 tablet (20 mg total) by mouth daily,Disp: 90 tablet, Rfl: 3 Semaglutide,0.25 or 0.5MG/DOS, (Ozempic, 0.25 or 0.5 MG/DOSE,) 2 MG/1.5MLSOPN, Ozempic 0.25 mg or 0.5 mg (2 mg/1.5 mL) subcutaneous pen injector INJECT0.5 MG SUBCUTANEOUSLY ONCE WEEKLY, Disp: , Rfl: spironolactone (ALDACTONE) 25 MG tablet, spironolactone 25 mg tablet TAKE 1TABLET BY MOUTH EVERY DAY, Disp: , Rfl: tamsulosin (FLOMAX) 0.4 MG CAPS, Take 0.4 mg by mouth daily, Disp: , Rfl: venlafaxine (EFFEXOR-XR) 150 MG 24 hr capsule, Take 150 mg by mouth dailyAlong with 75mg dose for 225mg total, Disp: , Rfl: venlafaxine (EFFEXOR-XR) 75 MG 24 hr capsule, Take 75 mg by mouth daily Ta kewith the 150 mg daily, Disp: , Rfl:ALLERGIES: is allergic to amoxicillin, erythromycin, penicillins, and venomilhoney bee venom [honey bee venom].Objective:PHYSICAL EXAMINATION: Deferred due to Telemedicine encounterSTUDIES REVIEWED: [facility] including CareLinktransmission from the defibrillatorEKG: Deferred due to telemedicine encounter.Assessment/Plan:ASSESSMENT/PLAN: This is a 55-year-old female with a dilated cardiomyopathy whohad an inappropriate shock because of atrial fibrillation. The atrialfibrillation certainly could have been due to the acute illness that the patienthad. I would not recommend aggressive treatment for atrial fibrillation at thistime. She should remain on her current dose of metoprolol as well as Xarelto.If over the course of the next 3 months she has not had any further episodes ofatrial fibrillation and I would stop her Xarelto. If she has any recurrence ofatrial fibrillation then I would recommend pulmonary vein isolation. Thepatient will contact me in the next 3 months so I can review the data from herICDI have spent 25 minutes with the patient, counseling/coordinating the patient'scare. I discussed the diagnosis of atrial fibrillation and discussed Managementoption risks and benefitsFollow Up as scheduledSignature: Law Vasquez MD, [facility], RSCardiac Electrophysiology and Arrhythmia ServiceDate: October 03, 2020Time: 12:09 PMThis document or parts of this document, were dictated using DigitalVision. A reasonable attempt at proofreading has been made to minimize errors.Please call with any questions or corrections. Name Value Range Interpretation Code Description Data Nancy rce(s) Supporting Document(s) ID Date Data Source [id number] 09/25/2020 11:15:00 AM EDT [facility] ([facility]) Name Value Range Interpretation Code Description Data Nancy rce(s) Supporting Document(s) Lupus Confirm Stago 1.43 0.00-1.20 [facility] ([facility]) NORMALIZED RATIO IS EQUAL TO OR GREATER THAN 1.20 LA IS PRESENT. SPECIMEN WILL BE SENT TO [facility], [address] [place]. [id number] REF[facility] FOR CONFIRMATION. ID Date Data Source [id number] 09/25/2020 11:15:00 AM EDT [facility] ([facility] ) Name Value Range Interpretation Code Description Data Nancy rce(s) Supporting Document(s) PTT Lupus Type Anticoag Screen 2.0 0-1.2 [facility] ([facility] ) RESULT IS 1.2 OR GREATER, FURTHER TESTING [...] coagulation factor deficiency or a specific inhibitor. ID Date Data Source [id number] 09/25/2020 11:15:00 AM EDT [facility] ([facility] ) Name Value Range Interpretation Code Description Data Nancy rce(s) Supporting Document(s) Reagin Ab [Presence] in Serum by RPR Laboratory test result [facility] ([facility]) Rheumatoid factor [Units/volume] in Serum or Plasma Laboratory test result [facility] ([facility]) ID Date Data Source [id number] 09/25/2020 11:15:00 AM EDT [facility] ([facility]) Name Value Range Interpretation Code Description Data Nancy rce(s) Supporting Document(s) Vitamin B12 Level 454 pg/mL [facility] ([facility]) VITAMIN B12 NORMAL RANGE NORMAL 247 - 911 PG/ML INDETERMINATE 211 - 246 PG/ML DEFICIENT LESS THAN 211 PG/ML Folate Laboratory test result [facility] ([facility]) FOLATE NORMAL RANGE NORMAL GREATER THAN 5.4 NG/ML INDETERMINATE 3.4-5.4 NG/ML DEFICIENT LESS THAN 3.4 NG/ML ID Date Data Source [id number] 09/25/2020 11:15:00 AM EDT [facility] ([facility]) Name Value Range Interpretation Code Description Data Nancy rce(s) Supporting Document(s) Thyrotropin [Units/volume] in Serum or Plasma 1.060 uIU/ML 0.358-3.74 0 [facility] ([facility]) ID Date Data Source [id number] 09/25/2020 11:15:00 AM EDT [facility] ([facility]) Name Value Range Interpretation Code Description Data Nancy rce(s) Supporting Document(s) Albumin % 57.6 % 55.8-66.1 [facility] ([facility]) Bqxqj-7-Dlcnjahvi % 12.4 % 7.1-11.8 [facility] ([facility]) Ztdrx-0-Ostbagix % 6.1 % 2.9-4.9 [facility] ([facility]) Dbvc-4-Agrttxlbf % 6.5 % 4.7-7.2 [facility] ([facility]) Lpww-9-Vywqqsnqv % 4.5 % 3.2-6.5 [facility] ([facility]) Albumin 3.86 GM/DL 3.29-5.55 [facility] ([facility]) Gamma Globulin % 12.9 % 11.1-18.8 [facility] ([facility]) Prfua-5-Wkybeawvt 0.83 GM/DL 0.42-0.99 [facility] ([facility]) Tjrll-5-Eakjocrzc 0.41 GM/DL 0.17-0.41 [facility] ([facility]) Bwbf-4-Rhymrskhu 0.44 GM/DL 0.28-0.60 [facility] ([facility]) Uvlj-1-Lzfsfhjxs 0.30 GM/DL 0.19-0.55 [facility] ([facility]) Total Protein 6.7 GM/DL 6.4-8.2 [facility] ([facility]) Gamma Globulins 0.86 GM/DL 0.65-1.58 [facility] ([facility]) Spep Interpretation Laboratory test result [facility] ([facility]) NO M-SPIKE(S)NOTED. Laboratory test finding (navigational concept) Laboratory test result [facility] ([facility]) REV'D BY Claudia DUNBAR ID Date Data Source [id number] 09/25/2020 11:15:00 AM EDT [facility] ([facility]) Name Value Range Interpretation Code Description Data Nancy rce(s) Supporting Document(s) Glucose, Fasting 86 mg/dL 70-100 [facility] ([facility]) Creatinine For GFR 0.66 mg/dL 0.55-1.30 [facility] ([facility]) Blood Urea Nitrogen 20 mg/dL 7-18 [facility] ([facility]) Glomerular Filtration Rate Laboratory test result [facility] ([facility]) <content>Units are mL/min/1.73 m2</content>
<content></content>
<content>Chronic Kidney Disease Staging per NKF:</content>
<content></content>
<content>Stage I & II GFR >=60 Normal to Mildly Decreased</content>
<content>Stage III GFR 30- 59 Moderately Decreased</content>
<content>Stage IV GFR 15-29 Severely Decreased</content>
<content>Stage V GFR <15 Very Little GFR Left</content>
<content>ESRD GFR <15 on APPRAISER ART</content>
<content></content> Sodium Level 142 meq/L 136-145 [facility] ([facility]) Chloride Level 105 meq/L 98-107 [facility] ([facility]) Potassium Serum 3.4 meq/L 3.5-5.1 [facility] ([facility]) Carbon Dioxide Level 32 meq/L 21-32 [facility] ([facility]) Calcium Level 8.7 mg/dL 8.5-10.1 [facility] ([facility]) Anion Gap 5 meq/L 8-16 [facility] ([facility]) Ast/Sgot 14 U/L 7-37 [facility] ([facility]) Alt/SGPT 23 U/L 12-78 [facility] ([facility]) Alkaline Phosphatase 70 U/L 45-117 [facility] ([facility]) Bilirubin,Total 0.3 mg/dL 0.2-1.0 [facility] ([facility]) Albumin 3.4 GM/DL 3.2-5.2 [facility] ([facility]) Total Protein 6.7 GM/DL 6.4-8.2 [facility] ([facility]) Albumin/Globulin Ratio 1.0 1.2-2.2 [facility] ([facility]) ID Date Data Source [id number] 09/25/2020 11:15:00 AM EDT [facility] ([facility]) Name Value Range Interpretation Code Description Data Nancy rce(s) Supporting Document(s) Laboratory test finding (navigational concept) Laboratory test result [facility] ([facility]) ID Date Data Source [id number] 09/25/2020 11:15:00 AM EDT [facility] ([facility]) Name Value Range Interpretation Code Description Data Nancy rce(s) Supporting Document(s) Sjogren's Anti SS-A Laboratory test result 0.0-0.9 [facility] ([facility]) Antinuclear Antibodies Direct Laboratory test result [facility] ([facility]) Sjogren's Anti SS-B Laboratory test result 0.0-0.9 [facility] ([facility]) ID Date Data Source [id number] 09/25/2020 11:15:00 AM EDT [facility]) Name Value Range Interpretation Code Description Data Nancy rce(s) Supporting Document(s) Thiamine [Mass/volume] in Blood 144.9 nmol/L 66.5-200.0 [facility] ([facility]) Specimen Comment: Test(s) 454059-Lsssbmk E(Alpha Tocopherol); 224198- Specimen Comment: Vitamin E(Gamma Tocopherol); 982749-Lttnrus B6; 614603- Specimen Comment: Vit. B1, Whole Blood Specimen Comment: was developed and its performance characteristics Specimen Comment: determined by [facility]. It has not been cleared or approved Specimen Comment: by the Food and Drug Administration. Pyridoxine [Mass/volume] in Serum or Plasma 10.2 ug/L 2.0-32.8 [facility] ([facility]) Specimen Comment: Test(s) 587734-Oordeeo E(Alpha Tocopherol); 181290- Specimen Comment: Vitamin E(Gamma Tocopherol); 953176-Oqmmcoy B6; 530417- Specimen Comment: Vit. B1, Whole Blood Specimen Comment: was developed and its performance characteristics Specimen Comment: determined by [facility]. It has not been cleared or approved Specimen Comment: by the Food and Drug Administration. ID Date Data Source [id number] 09/25/2020 11:15:00 AM [facility]) Name Value Range Interpretation Code Description Data Nancy rce(s) Supporting Document(s) Cytoplasmic Neutrop AB Anca-C Laboratory test result [facility] ([facility]) Perinuclear AB Anca-P Laboratory test result [facility] ([facility]) The presence of positive fluorescence ex hibiting P-ANCA or C-ANCA patterns alone is not specific for the diagnosis of Bright's Granulomatosis (WG) or microscopic polyangiitis. Decisions about treatment should not be based solely on ANCA IFA results. The International ANCA Group Consensus recommends follow up testing of positive sera with both DC- 3 and MPO-ANCA enzyme immunoassays. As m any as 5% serum samples are positive only by EIA. Ref. AM J Clin Pathol 1999;111:507-513. Anca-Atypical Laboratory test result [facility] ([facility]) The atypical pANCA pattern has been obse rved in a significant percentage of patients with ulcerative colitis, primary sclerosing cholangitis and autoimmune hepatitis. ID Date Data Source [id number] 09/25/2020 11:15:00 AM EDT [facility] ([facility], ) Name Value Range Interpretation Code Description Data Nancy rce(s) Supporting Document(s) Vitamin E(Alpha Tocopherol) 8.3 mg/L 7.0-25.1 [facility] ([facility], ) Vitamin E(Gamma Tocopherol) 1.1 mg/L 0.5-5.5 [facility] ([facility]) Reference intervals for alpha and gamma- tocopherol determined from National Health and Nutrition Examination Survey, 7262-7347. Individuals with alpha-tocopherol levels less than 5.0 mg/L are considered vitamin E deficient. ID Date Data Source [id number] 09/25/2020 11:15:00 AM EDT [facility] ([facility]) Name Value Range Interpretation Code Description Data Nancy rce(s) Supporting Document(s) Hexagonal Phase Phospholipid 0 sec 0-11 [facility] ([facility], ) Comment For Hexagonal Confirm1 Laboratory test result [facility] ([facility]) . Results do not indicate the presence of a Lupus Anticoagulant: abnormal high screening results (PTT-LA, dRVVT, mixing studies), may be due to medication (heparin, warfarin, aspirin), Factor inhibitors, anticardiolipin antibodies, or poor specimen integrity. Performed at: [address] [id number] [address]: Gay Leyva MD, Phone: [phone] ID Date Data Source [id number] 09/25/2020 11:15:00 AM EDT [facility] ([facility]) Name Value Range Interpretation Code Description Data Nancy rce(s) Supporting Document(s) Erythrocyte sedimentation rate by 2H Westergren method 29 mm/hr 0-3 0 [facility] ([facility]) ID Date Data Source [id number] 09/25/2020 11:15:00 AM EDT [facility] ([facility]) Name Value Range Interpretation Code Description Data Nancy rce(s) Supporting Document(s) White Blood Count 5.2 10 4.0-10.0 [facility] ([facility]) Red Blood Count 3.98 10 4.00-5.40 [facility] ([facility]) Hematocrit 37.4 % 36.0-47.0 [facility] ([facility]) Hemoglobin 12.2 g/dL 12.0-15.5 [facility] ([facility]) Mean Corpuscular Volume 94.0 fl 80.0-96.0 [facility] ([facility]) Mean Corpuscular Hemoglobin 30.7 pg 27.0-33.0 [facility] ([facility]) Mean Corpuscular HGB Conc 32.6 g/dL 32.0-36.5 [facility] ([facility]) Red Cell Distribution Width 13.1 % 11.5-14.5 [facility] ([facility]) Platelet Count, Automated 307 10 150-450 [facility] ([facility]) Neutrophils % 46.3 % 36.0-66.0 [facility] ([facility]) Lymph % 40.7 % 24.0-44.0 [facility] ([facility]) [place] % 7.2 % 2.0-8.0 [facility] ([facility]) Eos % 3.7 % 0.0-3.0 [facility] ([facility]) Baso % 1.7 % 0.0-1.0 [facility] Immature Granulocyte % 0.4 % 0-3.0 [facility] ([facility]) Nucleated Red Blood Cell % 0.0 % 0-0 [facility] ([facility]) Lymph # 2.1 10 1.5-5.0 [facility] ([facility]) Neutrophils # 2.4 10 1.5-8.5 [facility] ([facility]) Baso # 0.1 10 0.0-0.2 [facility] ([facility]) Eos # 0.2 10 0.0-0.5 [facility] [place]han # 0.4 10 0.0-0.8 [facility] ([facility]) ID Date Data Source [id number] 09/25/2020 11:15:00 AM EDT [facility] ([facility]) Name Value Range Interpretation Code Description Data Nancy rce(s) Supporting Document(s) Hemoglobin A1c 5.9 % [facility] ([facility], ) <content>REFERENCE RANGES:</content><br/ ><content></content>
<content><=5.6% NORMAL</content>
<content>5.7-6.4% SUGGESTS IMPAIRED GLUCOSE METABOLISM/PREDIABETIC</content>
<content>>= 6.5% ABNORMAL</content>
<content></content> Estimated Average Glucose 123 mg/dL 60-110 [facility] ([facility], ) ID Date Data Source [id number] 09/24/2020 04:04:15 PM EDT [facility] INFORMATIONPatient MRN Name Date of Age Gend*PT [id number] Elena Marroquin 1965 55 years F ---PT Location Admission Date/Time Visit ID Attending Provider --- --- --- --- EPI ID CSN Admitting Provider [id number] ---Cardiology Office NoteName: Elena Lopez Gender: femaleDate of : 1965 Age: 55 yearsPrimary Care Provider / Referring Physician: HILLARY NELSONurrent HistoryChief Complaint: Hospital follow-upHPI:This patient is a 55 years female presents today for follow-up. She has thefollowing medical problem list:1. History of VT status post AICD placement which is followed by a2. Previous cardiac catheterization revealed no obstructive CAD 09/02/20183. Irritable bowel syndrome4. Rheumatoid arthritis5. Hypertension6. Echocardiogram 09/02/2018 revealed normal EF7. Sleep apnea utilizing CPAP8. Hyperlipidemia and is on a statin9. Patient admitted on September 19, 2020 to [facility] after receiving ashock from her defibrillator. Her device was interrogated and it was felt thatshe had an SVT and after further review was felt that she had atrialfibrillation. She was also noted to be hypokalemic with a potassium 2.5. Shewas started on Xarelto and metoprolol was increased.Patient presents today for follow-up. We have reviewed her history. She was into meet with Dr Moore on 08/17/2020. She did have a device check on 08/13/2020nd was noted to be crossing threshold. However when she met with Dr Moore,there was no signs or symptoms of heart failure and she was feeling okay at thatpoint. She then had hospitalization on September 19 with pneumonia and subsequentshocks from her defibrillator. We have reviewed those details of herhospitalization today. She states that she is very "nervous" for herdefibrillator to go off again. She is tolerating the higher dose of metoprolol.She is now on Xarelto. I will give her a telemedicine visit with for him to further review and provide reassurance for her. 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 She currently feels well. Shedoes feel that her pneumonia is resolving. She has not had any chest pain,shortness of breath, lower extremity edema and her weight is been stable.Review of Systems General Denies dizziness or lightheadedness. Denies any recent, unexpectedweight changes. HEENT Denies any loss or change of vision. Denies tinnitus. Respiratory Denies PND, orthopnea, DICKERSON, hemoptysis, cough, or shortness ofbreath. Cardiac Denies chest pain or pressure, denies palpitations GI Denies melena, hematochezia, nausea, or vomiting. MS Denies any lower extremity edema. Neuro Denies speech, motor, or sensory impairment. Psych Denies depression or anxiety. Endo Denies polyuria or polydipsia, denies temperature intolerance. Derm Denies diaphoresis, non-healing skin woundsPast HistoryPast Medical History:Diagnosis Date Anxiety and depression 09/02/2018 BMI 36.0-36.9,adult Chronic low back pain Chronic prescription benzodiazepine use Chronic prescription opiate use Essential hypertension Exposure to second hand tobacco smoke father "five packs per day" Fibromyalgia 09/02/2018 History of Shay-en-Y gastric bypass 2008 @ [facility] Dr. Garrido History of systemic steroid therapy quit around 2016 HLD (hyperlipidemia) Hx Bigeminal rhythm - perioperative noted in the past years ago Juvenile rheumatoid arthritis Dx 8 yo Menstrual migraine resolved after hysterectomy years ago NEVILLE on CPAP Sjoegren syndrome 09/02/2018 Well controlled type 2 diabetes mellitus just metformin and dietPast Surgical History:Procedure Laterality Date ANTERIOR CRUCIATE LIGAMENT REPAIR Right CARDIAC CATHETERIZATION N/A 09/02/2018 Procedure: Left heart cath; Surgeon: Leyla Leger MD; Laterality: N/A; EP STUDY Left 09/03/2018 Procedure: Implant ICD; Surgeon: Law Vasquez MD; Laterality: Left; HYSTERECTOMY LUMBAR SPINE SURGERY multiple - she says first one they forgot to put the screws in and had to goback in later REDUCTION MAMMAPLASTY SHAY-EN-Y PROCEDURE [address] [facility] [address] Garrido SHOULDER SURGERY Bilateral rotator cuff described by patient SPINAL CORD STIMULATOR IMPLANT "Spinal stimulator implant"Family HistoryProblem Relation Age of Onset Coronary artery disease Mother 58 late 50s coronary stenting COPD Father heavy smoker 5 packs per day reported but still alive 79 yo as of 2019Social HistorySocioeconomic History Marital status: Spouse name: Not on file Number of children: Not on file Years of education: Not on file Highest education level: Not on fileOccupational History Not on fileTobacco Use Smoking status: Passive Smoke Exposure - Never Smoker Smokeless tobacco: Never Used Tobacco comment: dad has not smoked in 25 yrsVaping Use Vaping Use: Never usedSubstance and Sexual Activity Alcohol use: No Drug use: No Sexual activity: Not on fileOther Topics Concern Not on fileSocial History Narrative Not on fileSocial Determinants of HealthFinancial Resource Strain: Difficulty of Paying Living Expenses:Food Insecurity: Worried About Running Out of Food in the Last Year: Ran Out of Food in the Last Year:Transportation Needs: Lack of Transportation (Medical): Lack of Transportation (Non-Medical):Physical Activity: Days of Exercise per Week: Minutes of Exercise per Session:Stress: Feeling of Stress :Social Connections: Frequency of Communication with Friends and Family: Frequency of Social Gatherings with Friends and Family: Attends Taoism Services: Active Member of Clubs or Organizations: Attends Club or Organization Meetings: Marital Status:Intimate Partner Violence: Fear of Current or Ex-Partner: Emotionally Abused: Physically Abused: Sexually Abused:Medications and AllergiesALLERGIES/SENSITIVITIES: Amoxicillin, Erythromycin, Penicillins, and Venomilhoney bee venom [honey bee venom]Current Outpatient Medications: abatacept (ORENCIA) 250 MG injection, Infuse into a venous catheter, Disp: ,Rfl: acetaminophen (Tylenol 8 Hour Arthritis Pain) 650 MG CR tablet, Take 650 mgby mouth every 8 (eight) hours as needed for pain, Disp: , Rfl: amitriptyline (ELAVIL) 50 MG tablet, Take 50 mg by mouth nightly, Disp: ,Rfl: atorvastatin (LIPITOR) 40 MG tablet, Take 40 mg by mouth daily, Disp: , Rfl: cevimeline (EVOXAC) 30 MG capsule, Take 30 mg by mouth 2 (two) times a dayAnd prn, Disp: , Rfl: clonazePAM (KLONOPIN) 1 MG disintegrating tablet, Take 1 mg by mouth 2 (two)times a day as needed , Disp: , Rfl: clonazePAM (KlonoPIN) 2 MG tablet, Take 2 mg by mouth nightly as needed foranxiety, Disp: , Rfl: cyclobenzaprine (FLEXERIL) 10 MG tablet, Take 20 mg by mouth nightly asneeded for muscle spasms , Disp: , Rfl: dicyclomine (BENTYL) 10 MG capsule, Take 20 mg by mouth 4 (four) times a daybefore meals and nightly, Disp: , Rfl: diphenoxylate-atropine (LOMOTIL) 2.5-0.025 MG per tablet, Take 1 tablet bymouth 4 (four) times a day as needed for diarrhea, Disp: , Rfl: doxycycline (VIBRA-TABS) 100 MG tablet, , Disp: , Rfl: Eluxadoline (VIBERZI) 75 MG TABS, Take by mouth, Disp: , Rfl: HYDROcodone-acetaminophen (NORCO) 7.5-325 MG per tablet, Take 1 tablet bymouth every 8 (eight) hours as needed for pain, Disp: , Rfl: hyoscyamine (LEVBID) 0.375 MG 12 hr tablet, hyoscyamine ER 0.375 mgtablet,extended release,12 hr TAKE 1 TABLET BY MOUTH TWICE A DAY, Disp: , Rfl: leucovorin (WELLCOVORIN) 5 MG tablet, Take 5 mg by mouth once a week , Disp: , Rfl: losartan (COZAAR) 100 MG tablet, losartan 100 mg tablet TAKE 1 TABLET BYMOUTH ONCE DAILY, Disp: , Rfl: methotrexate 2.5 MG tablet, Take 20 mg by mouth once a week on Thursday ,Disp: , Rfl: metoprolol tartrate (LOPRESSOR) 50 MG tablet, Take 1 tablet (50 mg total) bymouth 2 (two) times a day, Disp: 180 tablet, Rfl: 3 Multiple Vitamins-Iron (MULTIVITAMIN WITH IRON) TABS, Take 1 tablet by mouthdaily, Disp: , Rfl: nystatin (MYCOSTATIN) cream, nystatin 100,000 unit/gram topical cream APPLYTO RASH UNDER THE ABDOMINAL SKIN FOLDS TWICE DAILY, Disp: , Rfl: OMEGA-3 FATTY ACIDS PO, Take 2 capsules by mouth daily, Disp: , Rfl: rivaroxaban (Xarelto) 20 MG TABS, Take 1 tablet (20 mg total) by mouth daily,Disp: 90 tablet, Rfl: 3 Semaglutide,0.25 or 0.5MG/DOS, (Ozempic, 0.25 or 0.5 MG/DOSE,) 2 MG/1.5MLSOPN, Ozempic 0.25 mg or 0.5 mg (2 mg/1.5 mL) subcutaneous pen injector INJECT0.5 MG SUBCUTANEOUSLY ONCE WEEKLY, Disp: , Rfl: spironolactone (ALDACTONE) 25 MG tablet, spironolactone 25 mg tablet TAKE 1TABLET BY MOUTH EVERY DAY, Disp: , Rfl: tamsulosin (FLOMAX) 0.4 MG CAPS, Take 0.4 mg by mouth daily, Disp: , Rfl: venlafaxine (EFFEXOR-XR) 150 MG 24 hr capsule, Take 150 mg by mouth dailyAlong with 75mg dose for 225mg total, Disp: , Rfl: venlafaxine (EFFEXOR-XR) 75 MG 24 hr capsule, Take 75 mg by mouth daily Takewith the 150 mg daily, Disp: , Rfl:PhysicalBMI: Body mass index is 32.45 kg/m .Blood Pressure: BP: 120/84 Pulse: Heart Rate: 80Temperature: Temp: 96.1 F Respirations: Weight: Weight: 88.5 kg (195 lb) O2 Saturation: SpO2: 98 %Physical Exam General Well developed, well nourished, no acute distress Neck Soft and supple without lymphadenopathy or thyromegaly. No JVD. Nobruits. Lungs Clear to auscultation, no crackles, rhonchi, or wheezes Heart Normal S1 S2, no murmurs, clicks, or gallops Musculoskeletal Appears to have normal range of motion x 4 extremities, nojoint swelling. No pedal edema Neuro Alert, orientedx3, no facial asymmetry Derm No rashes, or ulcers Vascular Pulses palpableDiagnosticsLabDone at [facility] CenterEKG: N/AAssessment & Plan1. History of VT and she does have an ICD which is followed through thisoffice. She did have recent shock for rapid atrial fibrillation. She is nowtolerating metoprolol at a higher dose 50 mg p.o. twice daily. She is onXarelto for anticoagulation. It should be noted this was in the setting ofpneumonia, hypokalemia and hypomagnesemia2. Hypertension; her blood pressures under good control with current medicaltherapy3. Sleep apnea; she does utilize CPAP on a regular basis4. Hyperlipidemia; she is on a statin which is followed by primary careI will give patient a telemedicine visit with Dr. Vasquez for his furtherreview and her request to speak with him regarding this event. She does haveplans to follow-up with Dr Moore next year. She knows to contact our office ifshe has any signs or symptoms of cardiovascular concern.We appreciate the opportunity to care for this patient.Signature: Jolanta Mitchell NPDate: September 24, 2020Time: 4:01 [facility] CENTERhis document or parts of this document, were dictated using Wave[employer]. A reasonable attempt at proofreading has been made to minimize errors.Please call with any questions or corrections. Name Value Range Interpretation Code Description Data Nancy rce(s) Supporting Document(s) ID Date Data Source [id number] 09/19/2020 07:27:00 PM EDT [facility] Name Value Range Interpretation Code Description Data Nancy rce(s) Supporting Document(s) SARS-CoV-2 (COVID 19) NEGATIVE - SARS-CoV-2 (COVID19) [facility] This lab was ordered by [facility] a nd reported by [facility]. ID Date Data Source [id number] 09/19/2020 07:27:00 PM EDT [facility] ([facility]) Name Value Range Interpretation Code Description Data Nancy rce(s) Supporting Document(s) Respiratory Panel Laboratory test result [facility] ([facility]) This respiratory PCR panel detects Influ nalini A H1, H3 and 2009 H1 viruses, Influenza B virus, Resp iratory Syncytial Virus, Human metapneumovirus, Parainfluenza virus 1, 2, 3 and 4, Adenovirus, Rhinovirus/Enterovirus, Coronavirus HKU1, NL63, OC43, 229E and SARS-CoV-2 (COVID 19), Bordetella pertussis, Bordetella parapertussis, Mycoplasma pneumoniae and Chlamydia pneumoniae. POSITIVE by MULTIPLEXED NUCLEIC ACID PCR SARS-CoV-2 (COVID 19) NEGATIVE - SARS-CoV-2 (COVID19) ORGANISM 1: HUMAN RHINOVIRUS/ENTEROVIRUS Rhinovirus is noted as causing the "common cold", but may also be involved in precipitating asthma attacks and severe complications. Enteroviruses can be associated with different clinical manifestations, including non-specific respiratory illness. These viruses are closely related and therefore not able to be reliably differentiated. ORGANISM 1: HUMAN RHINOVIRUS/ENTEROVIRUS ID Date Data Source [id number] 09/19/2020 07:10:00 PM EDT [facility] ([facility]) Name Value Range Interpretation Code Description Data Nancy rce(s) Supporting Document(s) Laboratory test finding (navigational concept) 0.02 ng/mL 0 .00-0.08 Normal (applies to non-numeric results) [facility] ([facility]) ID Date Data Source [id number] 09/19/2020 06:53:00 PM EDT [facility] ([facility]) Name Value Range Interpretation Code Description Data Nancy rce(s) Supporting Document(s) Natriuretic peptide.B prohormone N-Terminal [Mass/volu me] in Serum or Plasma 432 pg/mL Above high normal [facility] ([facility]) Magnesium [Mass/volume] in Serum or Plasma 1.6 mg/dL 1.8-2.4 Belo w low normal [facility] ([facility]) Lipase [Enzymatic activity/volume] in Serum or Plasma 26 U/L 73-393 Below low normal [facility] ([facility]) ID Date Data Source [id number] 09/19/2020 06:53:00 PM EDT [facility] ([facility]) Name Value Range Interpretation Code Description Data Nancy rce(s) Supporting Document(s) Glucose, Fasting 124 mg/dL 70-100 Above high normal [facility] ([facility]) Blood Urea Nitrogen 11 mg/dL 7-18 Normal (applies to non-nume godfrey results) [facility] ([facility]) Glomerular Filtration Rate Laboratory test result Normal (applies to non- numeric results) [facility] ([facility]) <content>Units are mL/min/1.73 m2</content>
<content></content>
<content>Chronic Kidney Disease Staging per NKF:</content>
<content></content>
<content>Stage I & II GFR >=60 Normal to Mildly Decreased</content>
<content>Stage III GFR 30-59 Moderately Decreased</content>
<content>Stage IV GFR 15-29 Severely Decreased</content>
<content>Stage V GFR <15 Very Little GFR Left</content>
<content>ESRD GFR <15 on APPRAISER ART</content>
<content></content> Creatinine For GFR 0.78 mg/dL 0.55-1.30 Normal (applies to non -numeric results) [facility] ([facility]) Sodium Level 140 meq/L 136-145 Normal (applies to non-numeric res ults) [facility] ([facility]) Potassium Serum 2.5 meq/L 3.5-5.1 Below lower panic limits [facility] ([facility]) Chloride Level 97 meq/L 98-107 Below low normal [facility] ([facility]) Carbon Dioxide Level 33 meq/L 21-32 Above high normal [facility] Anion Gap 10 meq/L 8-16 Normal (applies to non-numeric resul ts) [facility] ([facility]) Calcium Level 8.7 mg/dL 8.5-10.1 Normal (applies to non-numeric re sults) [facility] ([facility]) ID Date Data Source [id number] 09/19/2020 06:53:00 PM EDT [facility] ([facility]) Name Value Range Interpretation Code Description Data Nancy rce(s) Supporting Document(s) Alt/SGPT 24 U/L 12-78 Normal (applies to non-numeric resul ts) [facility] ([facility]) Ast/Sgot 18 U/L 7-37 Normal (applies to non-numeric resul ts) [facility] ([facility]) Alkaline Phosphatase 83 U/L 45-117 Normal (applies to non-num negar results) [facility] ([facility]) Bilirubin,Total 0.9 mg/dL 0.2-1.0 Normal (applies to non-numeric results) [facility] ([facility]) Bilirubin,Direct 0.3 mg/dL 0.0-0.2 Above high normal [facility] Total Protein 7.3 GM/DL 6.4-8.2 Normal (applies to non-numeric re sults) [facility] ([facility]) Albumin 3.8 GM/DL 3.2-5.2 Normal (applies to non-numeric resul ts) [facility] ([facility]) Albumin/Globulin Ratio 1.1 1.2-2.2 Below low normal [facility] ([facility]) ID Date Data Source [id number] 09/19/2020 06:53:00 PM EDT [facility] ([facility]) Name Value Range Interpretation Code Description Data Nancy rce(s) Supporting Document(s) CPK Creatine Phosphokinase 74 U/L 26-192 Ana Luisa l (applies to non-numeric results) [facility] ([facility]) CK-MB Value Mass Laboratory test result Normal ( applies to non-numeric results) [facility] ([facility]) MB/CK Relative Index 1.35 Normal (applies to non-num negar results) [facility] ([facility]) <content>DIAGNOSIS CRITERIA</content>
<content>MMB ng/ml Relative Index (RI)</content>
<content>NON-AMI < or = 5 N/A</content>
<content>COOK ZONE > 5 < or = 4</content>
<content>AMI > 5 > 4</content>
<content></content> Troponin I 0.02 ng/mL Normal (applies to non-numeric resul ts) [facility] ([facility]) <content>Troponin I Reference Interval f or Siemens [place] LOCI:</content>
<content></content>
<content>99th Percentile= 0.00-0.045 ng/ml</content>
<content></content>
<content>Risk Stratification:</content>
<content><= 0.10 ng/ml Decreased Risk for Adverse Clinical</content>
<content>Events.</content>
<content>0.10-1.50 ng/ml Increased Risk for Adverse Clinical</content>
<content>Events. Evaluation of additional</content>
<content>criterion and/or repeat testing in 2-6</content>
<content>hours is suggested to rule out myocardial</content>
<content>damage.</content>
<content>>= 1.50 ng/ml Indicative of Myocardial Injury.</content>
<content></content> ID Date Data Source [id number] 09/19/2020 06:53:00 PM EDT [facility] ([facility]) Name Value Range Interpretation Code Description Data Nancy rce(s) Supporting Document(s) White Blood Count 14.7 10 4.0-10.0 Above high normal [facility] ([facility]) Red Blood Count 4.64 10 4.00-5.40 Normal (applies to non-numeric results) [facility] ([facility]) Hematocrit 42.5 % 36.0-47.0 Normal (applies to non-numeric resul ts) [facility] ([facility]) Hemoglobin 14.1 g/dL 12.0-15.5 Normal (applies to non-numeric resul ts) [facility] ([facility]) Mean Corpuscular Hemoglobin 30.4 pg 27.0-33.0 Norm al (applies to non-numeric results) [facility] ([facility]) Mean Corpuscular Volume 91.6 fl 80.0-96.0 Normal ( applies to non-numeric results) [facility] ([facility]) Red Cell Distribution Width 13.4 % 11.5-14.5 Norm al (applies to non-numeric results) [facility] ([facility]) Mean Corpuscular HGB Conc 33.2 g/dL 32.0-36.5 Normal (applies to non-numeric results) [facility] ([facility]) Neutrophils % 79.8 % 36.0-66.0 Above high normal [facility] ([facility]) Platelet Count, Automated 247 10 150-450 Normal (applies to non-numeric results) [facility] ([facility]) [place] % 6.5 % 2.0-8.0 Normal (applies to non-numeric resul ts) [facility] ([facility]) Lymph % 12.7 % 24.0-44.0 Below low normal [facility] ( [facility]) Eos % 0.4 % 0.0-3.0 Normal (applies to non-numeric resul ts) [facility] ([facility]) Baso % 0.3 % 0.0-1.0 Normal (applies to non-numeric resul ts) [facility] ([facility]) Immature Granulocyte % 0.3 % 0-3.0 Normal (applies to non-n umeric results) [facility] ([facility]) Nucleated Red Blood Cell % 0.0 % 0-0 Normal (applies to n on-numeric results) [facility] ([facility]) Neutrophils # 11.7 10 1.5-8.5 Above high normal [facility] ([facility]) Lymph # 1.9 10 1.5-5.0 Normal (applies to non-numeric resul ts) [facility] ([facility]) [place] # 1.0 10 0.0-0.8 Above high normal [facility] ([facility]) Eos # 0.1 10 0.0-0.5 Normal (applies to non-numeric resul ts) [facility] ([facility]) Baso # 0.0 10 0.0-0.2 Normal (applies to non-numeric resul ts) [facility] ([facility]) ID Date Data Source [id number] 08/17/2020 05:11:09 PM EDT [facility] INFORMATIONPatient MRN Name Date of Age Gend*PT [id number] Elena Marroquin 1965 55 years F ---PT Location Admission Date/Time Visit ID Attending Provider --- --- --- --- EPI ID CSN Admitting Provider [id number] ---Name: Elena MarroquinDOB: 1965Date: 08/17/20CIED Remote CheckImplanted Device 07/11/2019Device Lozenge Maker MedtronicDevice type Single Chamber ICDMRI Conditional Device -Device was remotely interrogated and the following were evaluated:Battery statusSummary arrhythmia logsNew observationsFidelity of the EGM signalIntegrity of leads and lead impendence were reevaluatedConclusion:Normal ICD function.No significant changes continue to monitor.Signature: Law Vasquez MD, [facility], RSCardiac Electrophysiology and Arrhythmia ServiceDate: August 17, 2020Time: 5:11 PMThis document or parts of this document, were dictated using WaveSyndicateware. A reasonable attempt at proofreading has been made to minimize errors.Please call with any questions or corrections. Name Value Range Interpretation Code Description Data Nancy rce(s) Supporting Document(s) ID Date Data Source [id number] 08/17/2020 05:11:09 PM EDT [facility] INFORMATIONPatient MRN Name Date of Age Gend*PT [id number] Elena Marroquin 1965 55 years F ---PT Location Admission Date/Time Visit ID Attending Provider --- --- --- --- EPI ID CSN Admitting Provider [id number] ---Heart Failure Management ReportPatient has a history of ventricular tachycardia. According to this report,patient has not had VT/VF. There is not evidence of AT/AF. In regards toOptivol, patient has crossed fluid threshold. Average ventricular response atnight is 75.Jolanta Zaborowski, NPThis document or parts of this document, were dictated using WaveSyndicateware. A reasonable attempt at proofreading has been made to minimize errors.Please call with any questions or corrections. Name Value Range Interpretation Code Description Data Nancy rce(s) Supporting Document(s) ID Date Data Source [id number] 08/17/2020 01:34:06 PM EDT [facility] Name Date of Age Gend*PT [id number] Elena Marroquin 1965 55 years F ---PT Location Admission Date/Time Visit ID Attending Provider --- --- --- --- EPI ID CSN Admitting Provider [id number] ---[facility] [facility] [id number] Thompson is a 55 years female.No chief complaint on file.Cardiology History: "Measurement is measurement was 1.1 more closelyHPI: I had the opportunity of seeing Elena Marroquin, a 55 years female.in the office today for cardiovascular follow-up evaluation. 55-year-old femalepast medical history significant for history of VT status post AICD placement.Before the defibrillator placement she had a left heart catheterization nosignificant obstructive CAD. And also she had a transthoracic echocardiogramnormal LV systolic function. She has other multiple medical issues includingirritable bowel syndrome, rheumatoid arthritis and she is on multiplemedication. Initially she was on antihypertensive medication including losartanas well as hydrochlorothiazide but her blood pressure was subsequently was verylow. She denies any chest pain or shortness of breath. She has this chroniccough which was there even before her left heart catheterization. Today she ishere to establish her initial cardiovascular care. Denies any chest pain orshortness of breathROS:CONSTITUTIONAL: No change in weight, No weakness, No fatigue and No fevers,sweats, or chillsEYES:no vision changes or dischargeENT:No hearing loss,rhinitis,hoarseness,massesPULMONARY: No cough, sputum, or hemoptysis, No wheezing, No shortness or breathand No recent change in breathingCARDIOVASCULAR: No chest pain, No shortness of breath, No dyspnea on exertion,No orthopnea, No p aroxysmal nocturnal dyspnea, No edema, No palpitations and NosyncopeGASTROINTESTINAL: No abdominal pain, No change in bowel habits, No significantchange in appetite, No nausea, vomiting, diarrhea, or constipation, Nohematemesis, No blood in stools or black tarry stools, No dysphagiaGU : No dysuria, No frequency, No incontinence and No urgencyHEMATOLOGIC: No coagulation disorder, No anemia, No abnormal bleeding, NobruisingEXTREMITIES: No pain, redness or swelling on the joints,SKIN/INTEGUMENTARY: No rash and No itchingNEUROLOGIC: Normal balance and No weaknessPSYCHIATRIC: No depression, No anxiety and No psychosisALLERGY/IMMUN: No allergic triggersENDOCRINE: No thyroid trouble and No excessive thirst or urinationSLEEP: No sleep disordersALLERGIES/SENSITIVITIES:AllergiesAllergen Reactions Amoxicillin Hives Penicillins Hives Amoxicillin Venomil Honey Bee Venom [Honey Bee Venom] BEE Venom - Palpitations, shortness of breathPMH:Past Medical History:Diagnosis Date Anxiety and depression 09/02/2018 BMI 36.0-36.9,adult Chronic low back pain Chronic prescription benzodiazepine use Chronic prescription opiate use Essential hypertension Exposure to second hand tobacco smoke father "five packs per day" Fibromyalgia 09/02/2018 History of Shay-en-Y gastric bypass 2008 @ [facility] Dr. Garrido History of systemic steroid therapy quit around 2016 HLD (hyperlipidemia) Hx Bigeminal rhythm - perioperative noted in the past years ago Juvenile rheumatoid arthritis Dx 8 yo Menstrual migraine resolved after hysterectomy years ago NEVILLE on CPAP Sjoegren syndrome 09/02/2018 Well controlled type 2 diabetes mellitus just metformin and dietPSH:Past Surgical History:Procedure Laterality Date ANTERIOR CRUCIATE LIGAMENT REPAIR Right CARDIAC CATHETERIZATION N/A 09/02/2018 Procedure: Left heart cath; Surgeon: Leyla Leger MD; Laterality: N/A; EP STUDY Left 09/03/2018 Procedure: Implant ICD; Surgeon: Law Vasquez MD; Laterality: Left; HYSTERECTOMY LUMBAR SPINE SURGERY multiple - she says first one they forgot to put the screws in and had to goback in later REDUCTION MAMMAPLASTY SHAY-EN-Y PROCEDURE [address] [facility] [address] Garrido SHOULDER SURGERY Bilateral rotator cuff described by patient SPINAL CORD STIMULATOR IMPLANT "Spinal stimulator implant"FH:Family HistoryProblem Relation Age of Onset Coronary artery disease Mother 58 late 50s coronary stenting COPD Father heavy smoker 5 packs per day reported but still alive 79 yo as of 2019Social HistorySocioeconomic History Marital status: Spouse name: Not on file Number of children: Not on file Years of education: Not on file Highest education level: Not on fileOccupational History Not on fileSocial Needs Financial resource strain: Not on file Food insecurity: Worry: Not on file Inability: Not on file Transportation needs: Medical: Not on file Non-medical: Not on fileTobacco Use Smoking status: Passive Smoke Exposure - Never Smoker Smokeless tobacco: Never Used Tobacco comment: father 5 packs cigarettes per day around her for yearsSubstance and Sexual Activity Alcohol use: No Drug use: No Sexual activity: Not on fileLifestyle Physical activity: Days per week: Not on file Minutes per session: Not on file Stress: Not on fileRelationships Social connections: Talks on phone: Not on file Gets together: Not on file Attends adventism service: Not on file Active member of club or organization: Not on file Attends meetings of clubs or organizations: Not on file Relationship status: Not on file Intimate partner violence: Fear of current or ex partner: Not on file Emotionally abused: Not on file Physically abused: Not on file Forced sexual activity: Not on fileOther Topics Concern Not on fileSocial History Narrative Not on fileSocial HistorySocial History Narrative Not on fileCURRENT MEDS: Scheduled Meds:Continuous Infusions:PRN Meds:.Histories:Patient Active Problem ListDiagnosis Sustained VT (ventricular tachycardia) 09/01/2018 s/p cardioversion Chronic low back pain Sjoegren syndrome JRA (juvenile rheumatoid arthritis) Fibromyalgia Essential hypertension History of Shay-en-Y gastric bypass HLD (hyperlipidemia) Shoulder pain, bilateral acute since 09/01/2018 pm NEVILLE on CPAPCurrent Outpatient MedicationsMedication Sig Dispense Refill abatacept (ORENCIA) 250 MG injection Infuse into a venous catheter amitriptyline (ELAVIL) 50 MG tablet Take 50 mg by mouth nightly atorvastatin (LIPITOR) 40 MG tablet Take 40 mg by mouth daily cevimeline (EVOXAC) 30 MG capsule Take 30 mg by mouth 3 (three) times a day clonazePAM (KLONOPIN) 1 MG disintegrating tablet Take 1 mg by mouth nightly cyclobenzaprine (FLEXERIL) 10 MG tablet Take 20 mg by mouth nightly as neededfor muscle spasms dicyclomine (BENTYL) 10 MG capsule Take 20 mg by mouth 4 (four) times a daybefore meals and nightly Eluxadoline (VIBERZI) 75 MG TABS Take by mouth HYDROcodone-acetaminophen (NORCO) 7.5-325 MG per tablet Take 1 tablet by mouthevery 8 (eight) hours as needed for pain leucovorin (WELLCOVORIN) 5 MG tablet Take 5 mg by mouth once a week OnT methotrexate 2.5 MG tablet Take 20 mg by mouth once a week on Thursday metoprolol tartrate (LOPRESSOR) 25 MG tablet Take 1 tablet (25 mg total) bymouth 2 (two) times a day 60 tablet 2 Multiple Vitamins-Iron (MULTIVITAMIN WITH IRON) TABS Take 1 tablet by mouthdaily OMEGA-3 FATTY ACIDS PO Take 2 capsules by mouth daily predniSONE (DELTASONE) 5 MG tablet Take 5 mg by mouth 2 (two) times a day tamsulosin (FLOMAX) 0.4 MG CAPS Take 0.4 mg by mouth daily venlafaxine (EFFEXOR-XR) 150 MG 24 hr capsule Take 150 mg by mouth daily Alongwith 75mg dose for 225mg totalNo current facility-administered medications for this visit.Objective:BP 138/80 (BP Location: Left upper arm, Patient Position: Sitting) | Pulse 90| Temp 96.2 F (Temporal) | Resp 20 | Ht 1.651 m (5' 5") | Wt 88.2 kg (194 lb6.4 oz) | SpO2 96% | BMI 32.35 kg/m Examination:General- Conscious alert well orientedIn in no acute distress,cooperative.Neck - No neck vein distention, lymphadenopathy. No definitecarotid bruit, no thyromegaly.Cardiac- Apical impulse not well localized, heart sounds normal inintensity, no definite murmurs, clicks, gallops, rubs.Lungs - Clear to percussion and auscultation, respirations normal.Abdomen - Soft, nontender, no definite hepatosplenomegaly, aorticpulsations not palpable.Extremities - No definite clubbing, cyanosis, varicose veins, pittingedema.Pulses - Bilateral carotid, radial, femoral, popliteal , pedalpulses well palpable and no definite bruits noted.Neurological - No definite localizing or lateralizing neurological signs.Patient is alert well oriented.Psychiatric - Mood and affect appropriate for the clinical setting.Skin/Joints - Skin is warm and dry. No significant swelling in the joints.LABS AND DIAGNOSTIC STUDIESLABS:Lab ResultsComponent Value Date NA 143 09/03/2018 K 4.0 09/03/2018 CL 110 (H) 09/03/2018 CO2 26 09/03/2018 BUN 15 09/03/2018 CREATININE 0.69 09/03/2018 GLU 103 (H) 09/03/2018Lab ResultsComponent Value Date INR 1.09 09/02/2018DIAGNOSTICS:IMAGING:ECG: Normal sinus rhythm, occasional PVCsAssessment:Patient Active Problem ListDiagnosis Sustained VT (ventricular tachycardia) 09/01/2018 s/p cardioversion Chronic low back pain Sjoegren syndrome JRA (juvenile rheumatoid arthritis) Fibromyalgia Essential hypertension History of Shay-en-Y gastric bypass HLD (hyperlipidemia) Shoulder pain, bilateral acute since 09/01/2018 pm NEVILLE on CPAP1. Hyperlipidemia, unspecified hyperlipidemia type POCT AMB EKGVentricular tachycardia status post AICD placement heart catheterization beforethe defibrillator placement no significant obstructive CAD. Echocardiogramnormal LV systolic function.Hypertension: She also had episodes of hypotension recommended to discontinueall antihypertensive medications including losartan, hydrochlorothiazide,Aldactone and also the potassium supplement. Recheck the blood pressure at homeon a regular basis the pressures are consistently more than 140/85 or more shewill start taking losartan 50 mg daily and also she will notify usSleep apnea on CPAPHyperlipidemia on statinI educated the patient about the pathophysiology of the coronary artery diseaseand also the risk factors. And educated how to work with the risk factor todecrease the future risk of for coronary artery disease.The 10-year ASCVD risk score (Franklin NOHELIA Jr., et al., 2013) is: 3.6% Values used to calculate the score: Age: 55 years Sex: Female Is Non- : No Diabetic: No Tobacco smoker: No Systolic Blood Pressure: 138 mmHg Is BP treated: Yes HDL Cholesterol: 44 mg/dL Total Cholesterol: 157 mg/dLFollow- up in cardiology clinic in 12 monthsIf your shortness of breath get worse Or if you noticed increased weight gainor leg swelling Double the dose of Lasix. If there is no improvement in thesymptoms Call your physician.Keep the nitroglycerin with you. If you develop chest pain take nitroglycerinsublingually for every 5 minutes up to 3 times. If there is no improvement insymptoms called 911Strongly recommended to take the medication on a regular basis.Low-salt, low carbohydrate dietKeep yourself physically active, walking is the best exercise.Need a lifelong risk modification including Diet, exercise And taking care ofthe blood pressure, and a cholesterol. keep the blood pressure between<130/85 mmHg and LDL cholesterol level < 100 mg/dlExercise regularly, lose weight and adopt healthy life style. Patient instructedto call sooner than scheduled if there is a worsening of symptoms ordevelopment of new symptoms.The total time spent on this appointment and coordination of care was 40 mins.Out of this time > 20 mins were spent in discussing about various medical issuesas mentioned above, including treatment options. All questions were answered.Patient verbalized understandingThis note has been dictated using voice recognition software. Please disregardany inadvertent grammatical errors. Please do not hesitate to contact our officefor clarifications.CLARENCE Bautista, , FACC, FASE, FASKEVON Name Value Range Interpretation Code Description Data Nancy rce(s) Supporting Document(s) ID Date Data Source [id number] 08/15/2020 03:00:00 PM EDT [facility] Name Value Range Interpretation Code Description Data Nancy rce(s) Supporting Document(s) Follow Up [facility] RUXZGa7pFfEOLkOuDBOxYplQJAslVXqsMMRkE6L4FCuvEo2RPBbksqVfXRBbYf7+XFCuKR9lxf7jRDWi gMy [file] APPLIANCE SERVICE REPRESENTATIVE+HEGcee7tTHKik9lh3V++8od4YyT7kmWX8/TYcS [file] 4xIC6Sun/aUBD79zxCVhvd0izYfjNfphB1rYMA+Juan M [file] /high school admissions representative+4rmkyPDPpojJoQWs5lRaBrnBN3PQTZgY7Elqk7WsVcVSqfquNp+TlNipPMdsHn9SXooC7nG7H6V [file] /vp human resources/mcYnoUqElK25wBrgcw+FTBZn3TEWugmi4R9bJCxtpckywDQG0vz85jH5S6i6dR/EYGOvjQ7b8mws [file] certified pedorthotist/I/oQWrq3daGTRUXScuOj8Z0Qe0dRkM8rjiFfeAX2VmYerEJW/SuXCdMfH+Do+tE2ELHFtFInhLbi [file] pMqMgLBk4Nn5tp3MERK67JlXluIqPuKm7Uq8ffXNTxl13KjBhMWnYEtOzaWvjKv2/2noKZX0eZGk/public relations professional [file] DIRECTOR AUTO+Af+0N9CiDidmygjyDX5AUuYucJFqRPQi6PWj+Ie 5uruDuVjfmyJrzxyVb+3qm99P4GHsKo/s8UR90xIblMphQGxUYxR0z1AkZJrY5G4dVyhcEAfmkZJHpzQ fbzlwbZpkK6acn5Ue05cDyKQYfIL/PdkSP4bnRM839fjqR71vhGDTrY2Z1LeeQSIBjBhryHjE6GnIBAP cGALUJDg4lDc9GnSB4OC+7hlbAogh7rHBV9H2pN7Ab YiZpCgadXG+UtV/yZU5CiRiw1x21eOG5XcqcXtOv96v0fHs40c6x1LeIFuRH0VTCgHPXvsIhO48PK52M PfRU/1vhAqAW6R2pKtUMA0XkT75dbv6HjC6xGk3xdnV2Mw4x0WEDMbprpraIqND3Is+YH33M7YunPbki 4DpjzLhd6t4ghAxc7Dbs80De79K/lZdTNhI+8Lv6vU VKcy9bgBj0bTDJqvHgzQKCYanV5j4R+yiWaEQPZCoMIJqLdm+oXQiT5GPv0P0ADMeC+fcMQDwOdpMLn5 lVPkMhPbLmQAgS1t7VCeM+aQXbgRbm9hmQbHlXq/nRpgpIvMCaPNa8TdgIDaK3nBkyMqR+WsivUPsOOI +tUT5MYQn5m2+eMQXdMxFYiEz/2/yjF7aUCatSHPUn /gXK7m3NT4blQeRc7EO5WeIiAqXulkPqtJJuZYPrkgRZqhi+NnHoqrIxPmvArIfm/M6/oP+zNye7A12k O71biGy7y74q2ityaBPIhNW+dGeQPz2tHmRMjdrm1FzPcjb7T/KFZyWFcxq5smuTUOvRnznxOrxOFpgf OaivvykORgwq3zikyy1xB1/39Yetud/JzzlpWhy9Cw iTusFdxQvvv/Ohl3Uy3jgwT3defdybU7iFxZddi2CzNQSjl/sxHP0rTXuZP3cvwZxKI/IpkfA6o/RP+l hVVSI6UZfYuCZ2+qDtsdo89LbYSW4DGNK1m8xwjywV7vwjT9oWfFz/32295B50oExNEZrMmAPVM5MrsR 9DDvJRaaoJlPK3pZTJNoo/xhjyq7viOeH9v73f86c8 N/lcRGbMnWx5SZ4K/X5rVM85hmtu/6lroI4bilu1OUgyNqqFK6zFlqAwRsfrheNS//1lh1zc/qD7mmB1 4wgbBWH9GadoHCzHMc8zGtc1wYvQSihCqnLqvyI+DVo3ypNi5j8vxLfxikO2pCla21mPWdDbXRgOmlHR GSY10hP0FWCjYWGg/+XWy3k6dyIGp4akNl9T9FJkdt Qn71oYsA+d5UQEy8/FgglN5DfXId/sPm9nHjy98kohEYVbe2uu8zKfTUN3VQVmBy+x1KJdge8wPpsSCs V4qZjyStLQuFIpN7/yiENQgY89DsvrP+feMMoumyXbGcf5zFJejoUybjH+PCdmdQM2uYWigvW8pxYzaV 8lMLsrKToqsoNPo7jGRO8NZoy9+mh+/oEaKN5KPI22 ngjoHnahaeZHh4GTyhYcouGQfmkitzmi3eLJdhCNnw0w+hUIf7n8sMhJUKCM5CKjCY/or95bqBYEpjQz yxAnbrBQB4ZKwXml6h8hon5XxZz93rJ7rb5d3wWhfgPDoRcLtT3oJl1MULWjtakCZ2x8cDyZTbrFC8rj ovL32hTSOTU/O98xHnJW9orsFb+77fa+OrmGBPmPub GpSjrJg73t1tg5qtmYJWLPDacykA82Q4BQaJQ4Ay4/NyaeGJvuC1hVCtRzmDbR4e51Bz30TgpMP76BEo rW0wfHojm89a8LzGaTHzLzWUAgwHF8cJ4v+jL76pzZAEf31qtkbrq0w3sJWs+z86TfvN2MQOaPxsvBKK Qjx6U80/iPr6U3LhnZzfv5b1ViRnMMBZuQTw7K/Office Services Coordinator [file] QC3snbv44p7kdAyBqOZThigjbLG1JIDFTCFlfVekz2hLf4AzLeSBcoMiCk64QFHEIDf/wo6E+Hightower++fundraising coordinator [file] qUM7bjzopddRfJJXVa3Y2ZIQTbTnPE7HMPNPv/+3d specialist [file] NAIL MACHINE OPERATOR/vBYVwg5Eg0Bho3v/n2kazIfNS9ppzq7tm+FssPxXFGFMWRpzNbPVZUwvodYuMGhtNe8t73f6vZGR [file] /e3p4V2B/HjuqIt1Grdv7e2G3Eva0/7o0GmoQx [file] 0vz2ONgi/5KzPeXWp+OnnJiGIt5QsO1UXdEOkyp+Genetic Technologist [file] /uJm0e/URDU+l1dzCxLDcpoV9P8dzHMIE4xBNBjy2yia8qC8gC8ltJXXB9ZyxhLhlgo0dMpGxc+fIMLkBO siNOnn0oRvQ8tLCCn4DbZXukt51W5pbZmHMoJ8If5U YfTksrohIeKmN0B7WdOtmeTNxCXmVt071Yix0Y03FAmaOHIPJCdYJ7y2tnLfSlfKjAdxe0Ppx058IxfP bCxI5ce8Rn27aeytwlM4cKF33Sj5iqkWzzUqZsSinxKgRdBajUKjTpJ4YRSsgC4ZNQL6wb/47Yz1y04K EOlpxPsZRIEozR52GsNl8DgHNscFu82wmhiMwfQQDK AzDoYtflmh+bWm3Ry/kf8Nvb4+Xo+hgak0qp92vqwQ4DhQKRRBO0ZrF5iXxMZPRFfS6UaLogwk39EXus KWXs7MWnaaNjCXIK5xiO99J9ai134igEuDyGNKT9lJqHWB6+PRg2ChIc1oFe74RD3iC1Ntz2p7FI4wdy 8Uph2UVzGml8ojsz445UjepkDs/tFgH7niXVAH8/pediatrics teacher H+xNjdT9x+PVhmKXXn2NZFTYSEcVuVSh9zzF1POtf1HROgkkpvpXjmkbgxH4BdZi5BqfW0MQqDpsWpDv 4wLsgjmMKxsiwV4AbOUezsTfILEqOXC1bPOOcelW2dig/ETaO4LVkwkzFTvCwhBY+mRIsAzDyE/jopCz 9ANY7YQdaBUwI6gqw4xzyw7T48Rj9Rf/jjl1MSum9q 3nwDZ9EebSpNMA899xX0BtxpeAjwdqvjimznzOt7zCj2Zrv3KFBnr/4qlQEcLpSwuqIm52OOHKM/T/BA SjDcvbZz77/u8ytdSV3FcTBjuNqE6ZlCJksDWydA4/HFOKcJ6gsTSv/HeWsyUJA57wxrNHTHOf5B0H8U 9B+3ooKpfgj7claD2Fs92Ir4sqUCyNjVOAd9R3wkuF savCBxGlaq98nji2vetZBErbrV0m8xcD0BhyZu4uk+h7J5gX8uIkLfhXjy+6VZsAXTZziFyV/YP4EWkZ MFg8XqbiT1At8nd7vWq6Gq17HhWTrBeiVMJMJIGbjGB9b88v8ZwtA0eBHtvvrJ3Izs0xlL3yJXRdmGpB Hain5zcJEXJmCPKm/+Aqz3BmXqRN2sUBJIluaXD3Cj N1uF2B0w01axwUMrclkih7YnKvzRC2QRC2WB5+Wn+Idxx9Zg/chMSLPovomBD+JrWnApGzD6nfnIWO7a +GGaI8CVvumrB6vYyXMl0pLHJCOJjl21yRhU1U8QSIpCFJBy5oDzIYg3I+dEJmsv8izSMtc+k8dl+zOF yDOVDGnXVaiBFEY5p0OJz/L42xyYKTCQjDFRwXATUE [file] gjdyJE+Roberto/ueM/QyJErRUjY6aGtj6t5P0zrzd37ObO vJznzinT4PU5SChY76PKw1OpjC2nGalh+PHRQXsadcZfO9jJsw7MOXZgQFWvvtPE4JtkQtu79mM8Au22 Umd8/FwP07mSvt7Ykj5HwW0zgqF4EMc3bevcWp/MXTt1ATNQ85/UMSrhZIKuwqKbx6UxJVCbAfvGCPju 6JMEAPEnB1g2k9k3pFYUuwQdZjEqX16ukOE1j9mkbx uJ1W4pKMdCLVnKteR2Bqt4nrvhn+Vi82m6AbXag+bmQBROzh3qun0LdWaT+HbOL7FHBVeOEajvJrqXum 8TxsGTgo/Oc3OcssNLMOyEnfYn/WG2ft1lvgDKPf+women's studies lecturer/rodyPo51XYi9bY/gkaHkrZKBV6Uodx+8rM6 [file] Juan C+naA0Ofo0v2Ac6sCLb+SsksDPtwJig1zbYbRZGg [file] nde6RzN6QW59K8xOkapokgxMeAQXQ9LQucCGiJxGPkM9gCNTIV4w7aPxGtStmG6jm+teacher of the emotionally disturbed+qcRXraM0KL [file] nnb6Vcposf29pBhGBLddguHPfwwqTX99m8tis1dlah PZ85692qVmbwhPu37MUG+qEG6zPatAoSOKAz0d1iGciudRZw2Z2bP4W6ztIaG7zkG1MMud5nwiZkbUXd buk66u9m/bnTgu+/Xi9QZ7gfDnxT4T/4iFysTKyIjxDGgEhSrw4wk02Ode0pT99byeePtQw8157UJDFn fLW7K7P2tBEqFooniFxp7Fe3cAX3lvtZP+HNdmmWq1 pediatrics teacher+LsAT5EMCvt64oE09+NqO4CVMzJmILVJ1yyS9t35rSln3MMDPV3zmbqX0DzbEMwiKFmEVHzEMSh/BU [file] 6h9tiNx+e2BHYSEC5Am6CVCMzjt7hvNpnkajCUm/Price Accuracy Supervisor [file] pelt salter+zsjV+tfmZsQ75NuODoa3OKLrRCNosfHVW0hH6JobgXKN0WBrJvU0pZD84xNQ5siJ0La0q+4BabyD DdwWuMQtHnPobHmL/eD7O7EWLq22gPUCld8vDrFAQW eRS8yWpUU4MjlhPcpG5PEPenx8x8ysG97oEs3bXhVUSZ4TL+ywU+zm3Gr/6AVkiqFUuGJohOk5zG/XwH DQ58zPcKy7iDFdjto1kK9rL8ocRmZPhsvgACr/EobEnfkGxOcVnEwV/uAxVWposhrNF/x0SNdg3xN9Kj VcpzGMz+drXi8EUJPV8vO/lOghGaM9WOan09fr/J+b WU3WRuy9o07s0mrKknrpCKiizofISp89oXH88pwhCt31F8oUIHVGOZEfojQVz8Y+oq+OX+bg6Pt10pOs ByLP8s2KYaELgCJ1bVfa2vsb+HtFQRr3MUWNO+5J1PYTsGO6Pongvg9PnxYG9ukEgox7ITVaXwMsAvmR 5a317eYqswceo1VpY1EC2QWpRaGavk2gWJcBg1aquG y91dH+uZNyrdCWAbVXFxG2eC4/3/1veroXWE39bjZw/W/lf8uPQzm+ugcZOHfUta/MQ0RcFOsYvGhsgN fhERXt6BzNyXzguk1NU+aKPrhMYOXaIYQcVl7jL0Hm3VL/yHqihG0Ukgp/LlZhBpNiGgOScYW82H0WEG 4/RZ72uX6m56WP6q8f8qrhsxB1pqBB8fV02hT63UNm [file] CF9B3QlZv2Pv0wAi7mRpPiLnU5t7mo28pWfwh/+fisher pound net or trap [file] 5lLiHvL/research leader+hQN9AqQCILd7knAPb2sNE+LOxAVUsF [file] FZYBv2pEFzulU12kE4Cm1NYa+13e2rfLpCXmy9Jmq46Q/DIRECTOR AUTO+kePw8i2LNJi7NAPnDkU33aRfD/44HUPn [file] Barrel Inspector+pgTTtR+Mwj3l3x48u3gfVYeRUPt98D3lvko0zwUc7Qvq/ojL1Dj+M/dDh2PnTe4150kRxfUrtiV2 [file] Pfd23w9Q2ND8mDKnkN8x5eDI9OZSj0Ms/plant pathologist/+nHf+80kEeZJfPU9VHg30YztWjPBzJFav4Z2E0JLYQeK [file] /oaxweoezm2hZK2CjbggNLhhnfia7v3FFs9f/ijcxu UOnbKlJw7aatGUhJYqcpXovYHX+/Cfv6Adv61mKexrp3hw4x+F6isG6n2XgvZwkSJKEkVI6E7Uo56pAD oANH53sCVSNAsZpF0ieGQOmwLvI+i0JgECVL9cefVVErt5xXiHccL7YnbTyYHnaWS+EoSFgzFtFAK/TV 9OWRoQctSaDBdrXex4Z3GRUccdAo9bx2BeuVMyuw4/ Dphokzd70CZWzZYtEuYF4Wca1fK9ttWWrK8F5EsVCl1b7dxHu/RjfWVuTTt4hhtPzXRb9y5DXMwhXb89 c1HSih9dFcH7rUxtFkQhgY7LKgH/lpRNaKYpkAvggshy9ffR0exR2UTv5XoJhOCyDGAkjqx0WwGfL5OK tglTmvbtSnv7rzbmVVi2JAnqcUwbXAZodgErshEBBo rvSTTbB/LyE7wH5byFO1uHsNYzOn6g7lde1M+WIY0ptGNZn36aRbGfbg9h6VPr5z43uYQ6jnI3ScK/W0 vGnmUNLt00WFJDwXkj9kte2Ony4FdwMh1xVap3ZfCP5u7xZwG9+zibaAoqufHpc1aaz+nWL2cVhwACU3 sPumlfnPKuhS7dGXks79qveV+71ucA7as3OLzMV89z jwjA+PgANdVDRLquobRFV7fFIqmszGLkchdLEuIFjiLBzCz2B55ILX5vZ2DZrg2P/jDL9fQn9r9uK/It foMCdfZvUfqFLGaoOGyn517cfJ7hfqNzNUQLu7Zdhytt5FjXftcFdzCQZSEQUAFoSafQvoL7r8CqPVdp wdInXZob2ey43/ENJSM/QQPM/BK6RejF2HaBo0KWDf 5fdyf47pUCh8fLACkQUx93LaZC03t8RDmWKGQv5sA7+dM9E7wJFoYGTq0iLVC+w7Hs7yfcCxRLsnBwen 5kiP5l1BcwbLLTTwOqlAVae3I9oXvSuCa90ri+José Manuel+c34fcA/kM6YeoH7dqynTbcHlmjvp9mqW4CVluQ [file] RRGIB8JsHkF3LLuYVKKGEQI1OAUNGAq4YmR8PmAWJ0 L0HsCGHsZ7UmX1EHN2T2MORJT2NhUKJeRBXTs+QZ8Eo296XPKiRTTAO6kxSj4cLhAfFEIwU3c9DCQvUp 6DoZMmWD7STkAiD4rcQpOvNAGpGI0+u1CjJXOaQUu48zTcPUWCSCLYrvwb9qQOdoVRsJrWBOX1yPV2bX jdS7GLz8SRqscvZ3caQPGChsLctRXiiNeGYjXOhuSK I6IaEFdI0OJl6YmDOQMLd6FTpBwflwfy+ZsWaaRVqdhCl0AgsD8NOFF+C8lWAyHhXJM3kqZpiF1NQL0l x1RxKN7Ex0DcbpM8mkLfRDwuQEK6TCMmQJbxIYZHDq== ID Date Data Source [id number] 08/07/2020 06:25:00 PM EST [facility] ([facility]) Name Value Range Interpretation Code Description Data Nancy rce(s) Supporting Document(s) Urine Culture Laboratory test result Normal (applies t o non-numeric results) [facility] ([facility]) FULL REPORT IN LAB NOTES ([facility] and [facility] ). NO GROWTH CLINICAL SIGNIFICANCE 1 ORGANISM ID Date Data Source [id number] 08/07/2020 06:25:00 PM EST [facility] ([facility]) Name Value Range Interpretation Code Description Data Nancy rce(s) Supporting Document(s) Color, Urine Laboratory test result Normal (applies to non -numeric results) [facility] ([facility]) Appearance, Urine Laboratory test result Normal (applies to non-numeric results) [facility] ([facility]) PH,Urine 5.0 units 5.0-9.0 Normal (applies to non-numeric resul ts) [facility] ([facility]) Specific [place] Urine Auto 1.015 1.002-1.035 Norm al (applies to non-numeric results) [facility] ([facility]) Glucose, Urine (Ua) Auto Laboratory test result Normal (applies to non-numeric results) [facility] ([facility]) Protein, Urine Auto Laboratory test result Ana Luisa l (applies to non-numeric results) [facility] ([facility]) Ketone, Urine Auto Laboratory test result Normal (applies to non-numeric results) [facility] ([facility]) Bilirubin, Urine Auto Laboratory test result Nor mal (applies to non-numeric results) [facility] ([facility]) Urobilinogen, Urine Auto 0.2 mg/dL 0.0-2.0 Normal (applies to non-numeric results) [facility] ([facility]) Nitrite, Urine Auto Laboratory test result Ana Luisa l (applies to non-numeric results) [facility] ([facility]) Leukocyte Esterase, Urine Auto Laboratory test result Abov e high normal [facility] ([facility]) WBC, Urine Auto 2 /HPF 0-3 Normal (applies to non-numeric results) [facility] ([facility]) Blood, Urine Blood Laboratory test result Above high ana luisa l [facility] ([facility]) Bacteria, Urine Auto Laboratory test result Norm al (applies to non-numeric results) [facility] ([facility]) RBC, Urine Auto 4 /HPF 0-3 Above high normal [facility] ([facility]) Squamous Epithelial Cell Ur AU 0 /HPF 0-6 N ormal (applies to non-numeric results) [facility] ([facility]) Mucus, Urine Laboratory test result Normal (applies to non -numeric results) [facility] ([facility]) Hyaline Cast, Urine Auto 0 /LPF 0-1 Normal (applies to non -numeric results) [facility] ([facility]) ID Date Data Source [id number] 07/31/2020 05:19:00 PM EST [facility] ([facility]) Name Value Range Interpretation Code Description Data Nancy rce(s) Supporting Document(s) Amphetamines: negative Amphetamines: JAIRO ([facility]) THC negative Thc [facility] ([facility]) Barbiturates: negative Barbiturates: JAIRO ([facility]) Cocaine: negative Cocaine: JAIRO ([facility]) Opiates: negative Opiates: JAIRO ([facility]) Benzodiazepines: negative Benzodiazepines: AT ROGELIO ([facility]) PCP negative Pcp JAIRO ([facility]) Methamphetamine negative Methamphetamine ATHE NA ([facility]) MTD negative Mtd [facility] ([facility]) OXY negative Oxy [facility] ([facility]) ID Date Data Source [id number] 07/31/2020 12:00:00 AM EST [facility] ([facility]) Name Value Range Interpretation Code Description Data Nancy rce(s) Supporting Document(s) venlafaxine ur CMP >19462 >=5 Venlafaxine Ur CM P JAIR[facility] ([facility]) clonazepam ur CMP >2000 >=50 Clonazepam Ur CMP JAIRO ([facility]) amitrip ur CMP 217 NG/mL >=10 Amitrip Ur CMP JA[facility] ([facility]) baclofen ur CMP <500 >=500 Abnormal (applies to non- numeric results) Baclofen Ur CMP JAIRO ([facility]) hydrocodone ur CMP <100 >=100 Hydrocodone Ur CM P JAIR[facility] ([facility]) ID Date Data Source [id number] 07/31/2020 12:00:00 AM EST [facility] ([facility]) Name Value Range Interpretation Code Description Data Nancy rce(s) Supporting Document(s) biodetect expected Biodetect [facility] ([facility]) ID Date Data Source [id number] 07/31/2020 12:00:00 AM EST [facility] ([facility]) Name Value Range Interpretation Code Description Data Nancy rce(s) Supporting Document(s) Venlafaxine [Mass/volume] in Urine by Confirmatory method >5000 >=5 Venlafaxine Ur Cfm-mcnc JAIRO ([facility]) sn reuptake inhibitors ur ql >=5 >=5 Sn Reup take Inhibitors Ur Ql [facility] ([facility]) Norvenlafaxine [Mass/volume] in Urine by Confirmatory method >6000 >=50 Odv Ur Cfm-mcnc JAIRO ([facility]) ID Date Data Source [id number] 07/31/2020 12:00:00 AM JUAN A ANDINOENA ([facility]) Name Value Range Interpretation Code Description Data Nancy rce(s) Supporting Document(s) alcohol metabolites ur ql cfm <200 >=200 Alcoho l Metabolites Ur Ql [facility] ([facility]) Buprenorphine [Presence] in Urine by Confirmatory method <1 >=1 Buprenorphine Ur Ql [facility] ([facility]) Tapentadol [Presence] in Urine by Confirmatory method <100 >=100 Tapentadol Ur Ql [facility] ([facility]) Ethyl glucuronide [Mass/volume] in Urine by Confirmatory method <50 0 >=500 Ethyl Glucuronide Ur [facility] ([facility]) Ethyl sulfate [Mass/volume] in Urine by Confirmatory method <200 >=200 Ethyl Sulfate Ur [facility] ([facility]) Benzodiazepines [Presence] in Urine by Confirmatory method >=50 >=50 Benzodiaz Ur Ql [facility] ([facility]) Amphetamines [Presence] in Urine by Confirmatory method <0 >=0 Amphetamines Ur Ql [facility] ([facility]) 7-Aminoclonazepam [Mass/volume] in Urine by Confirmatory method >20 00 >=50 7Aminoclonazepam Ur [facility] ([facility]) gabapentinpregabalin ur ql cf <5 >=5 Gabap entinpregabalin Ur Ql [facility] ([facility]) Opiates [Presence] in Urine by Confirmatory method <100 >=1 00 Opiates Ur Ql [facility] ([facility]) Cocaine [Presence] in Urine by Confirmatory method <50 >=50 Bze Ur Ql [facility] ([facility]) 6-Monoacetylmorphine (6-SHALONDA) [Presence] in Urine by Confirma tory method <10 >=10 6Mam Ur Ql [facility] ([facility]) Methadone [Presence] in Urine by Confirmatory method <200 > =200 Methadone Ur Ql [facility] ([facility]) Fentanyl+Norfentanyl [Presence] in Urine by Confirmatory method <5 >=5 Fentanyl+norfentanyl Ur Ql [facility]fm [facility]IR[facility] ([facility]) Meperidine [Presence] in Urine by Confirmatory method <100 >=100 Meperidine Ur Ql Cf JAIRO ([facility]) Carisoprodol+Meprobamate [Presence] in Urine by Screen method <200 >=200 Carisoprodol+meprob Ur Ql Scn JAIRO ([facility]) Tramadol [Presence] in Urine by Confirmatory method <100 >= 100 Tramadol Ur Ql Cfm JAIRO ([facility]) Cotinine [Presence] in Urine by Confirmatory method <125 >= 125 Cotinine Ur Ql Cf JAIRO ([facility]) pH of Urine 4.5 - 9.0 pH Ur [facility] ([facility]) Creatinine [Mass/volume] in Urine 110.6 mg/dL 20 - 370 C reat Ur[facility] JAIR[facility] ([facility]) ID Date Data Source [id number] 07/31/2020 12:00:00 AM EST JAIR[facility] ([facility]) Name Value Range Interpretation Code Description Data Nancy rce(s) Supporting Document(s) baclofen ur ql cfm <500 >=500 Baclofen Ur Ql Cf m JAIRO ([facility]) ID Date Data Source [id number] 07/31/2020 12:00:00 AM EST JAIR[facility] ([facility]) Name Value Range Interpretation Code Description Data Nancy rce(s) Supporting Document(s) Tricyclic antidepressants [Presence] in Urine by Confirmatory me thod >=10 >=10 Tricyclics Ur Ql Cf JAIRO ([facility]) Amitriptyline [Mass/volume] in Urine by Confirmatory method 82 NG/m L >=10 Amitrip Ur [facility] JAIRO ([facility]) Nortriptyline [Mass/volume] in Urine by Confirmatory method 135 NG/ mL >=10 Nortrip Ur [facility] JAIR[facility] ([facility]) ID Date Data Source [id number] 07/31/2020 12:00:00 AM EST JAIRO ([facility]) Name Value Range Interpretation Code Description Data Nancy rce(s) Supporting Document(s) ID Date Data Source [id number] 07/31/2020 12:00:00 AM EST JAIRO ([facility]) Name Value Range Interpretation Code Description Data Nancy rce(s) Supporting Document(s) ID Date Data Source [id number] 07/23/2020 11:06:00 AM EST [facility] ([facility]) Name Value Range Interpretation Code Description Data Nancy rce(s) Supporting Document(s) White Blood Count 12.3 10 4.0-10.0 Above high normal [facility] ([facility]) Red Blood Count 4.05 10 4.00-5.40 Normal (applies to non-numeric results) [facility] ([facility]) Hemoglobin 12.7 g/dL 12.0-15.5 Normal (applies to non-numeric resul ts) [facility] ([facility]) Hematocrit 39.2 % 36.0-47.0 Normal (applies to non-numeric resul ts) [facility] ([facility]) Mean Corpuscular Hemoglobin 31.4 pg 27.0-33.0 Norm al (applies to non-numeric results) [facility] ([facility]) Mean Corpuscular Volume 96.8 fl 80.0-96.0 Above high normal [facility] ([facility]) Mean Corpuscular HGB Conc 32.4 g/dL 32.0-36.5 Normal (applies to non-numeric results) [facility] ([facility]) Platelet Count, Automated 382 10 150-450 Normal (applies to non-numeric results) [facility] ([facility]) Red Cell Distribution Width 13.2 % 11.5-14.5 Norm al (applies to non-numeric results) [facility] ([facility]) Lymph % 21.2 % 24.0-44.0 Below low normal [facility] ( [facility]) Neutrophils % 69.5 % 36.0-66.0 Above high normal MEDE NT ([facility]) Baso % 0.9 % 0.0-1.0 Normal (applies to non-numeric resul ts) [facility] ([facility]) [place] % 5.7 % 2.0-8.0 Normal (applies to non-numeric resul ts) [facility] ([facility]) Eos % 1.0 % 0.0-3.0 Normal (applies to non-numeric resul ts) [facility] ([facility]) Immature Granulocyte % 1.7 % 0-3.0 Normal (applies to non-n umeric results) [facility] ([facility]) Nucleated Red Blood Cell % 0.0 % 0-0 Normal (applies to n on-numeric results) [facility] ([facility]) Lymph # 2.6 10 1.5-5.0 Normal (applies to non-numeric resul ts) [facility] ([facility]) Neutrophils # 8.5 10 1.5-8.5 Normal (applies to non-numeric re sults) [facility] ([facility]) Baso # 0.1 10 0.0-0.2 Normal (applies to non-numeric resul ts) [facility] ([facility]) Eos # 0.1 10 0.0-0.5 Normal (applies to non-numeric resul ts) [facility] ([facility]) [place] # 0.7 10 0.0-0.8 Normal (applies to non-numeric resul ts) [facility] ([facility]) ID Date Data Source [id number] 07/23/2020 11:06:00 AM EST [facility] ([facility]) Name Value Range Interpretation Code Description Data Nancy rce(s) Supporting Document(s) Blood Urea Nitrogen 18 mg/dL 7-18 Normal (applies to non-nume godfrey results) [facility] ([facility]) Glucose, Fasting 131 mg/dL 70-100 Above high normal M ED[facility] ([facility]) Creatinine For GFR 0.88 mg/dL 0.55-1.30 Normal (applies to non -numeric results) [facility] ([facility]) Glomerular Filtration Rate Laboratory test result Normal (applies to non- numeric results) [facility] ([facility]) <content>Units are mL/min/1.73 m2</content>
<content></content>
<content>Chronic Kidney Disease Staging per NKF:</content>
<content></content>
<content>Stage I & II GFR >=60 Normal to Mildly Decreased</content>
<content>Stage III GFR 30- 59 Moderately Decreased</content>
<content>Stage IV GFR 15-29 Severely Decreased</content>
<content>Stage V GFR <15 Very Little GFR Left</content>
<content>ESRD GFR <15 on APPRAISER ART</content>
<content></content> Sodium Level 140 meq/L 136-145 Normal (applies to non-numeric res ults) [facility] ([facility]) Potassium Serum 4.2 meq/L 3.5-5.1 Normal (applies to non-numeric results) [facility] ([facility]) Anion Gap 6 meq/L 8-16 Below low normal [facility] ( [facility]) Chloride Level 103 meq/L 98-107 Normal (applies to non-numeric r esults) [facility] ([facility]) Carbon Dioxide Level 31 meq/L 21-32 Normal (applies to non-num negar results) [facility] ([facility]) Calcium Level 8.6 mg/dL 8.5-10.1 Normal (applies to non-numeric re sults) [facility] ([facility]) ID Date Data Source [id number] 07/11/2020 08:38:00 PM EST [facility] ([facility]) Name Value Range Interpretation Code Description Data Nancy rce(s) Supporting Document(s) Influenza A Amplification Laboratory test result Normal (applies to non- numeric results) [facility] ([facility]) Negative results do not preclude influen za or RSV virus infection and should not be used as the sole basis for treatment or other patient management decisions. Influenza B Amplification Laboratory test result Normal (applies to non- numeric results) [facility] ([facility]) Negative results do not preclude influen za or RSV virus infection and should not be used as the sole basis for treatment or other patient management decisions. Laboratory test finding (navigational concept) Laboratory test r esult Normal (applies to non-numeric results) [facility] ([facility]) A false negative result may occur if a s pecimen is improperly collected, transported or handled. False negative results may also occur if inadequate numbers of organisms are present in the specimen. As with any molecular test, mutations within the target regions of Xpert Xpress SARS-CoV-2 could affect primer and/or probe binding resulting in failure to detect the presence of virus. This test cannot rule out diseases caused by other bacterial or viral pathogens. DISCLAIMER: Testing was performed using the [employer] SARS-CoV-2 test. This test was developed and its performance characteristics determined by [employer]. This test has not been FDA cleared [...] the authorization is terminated or revoked sooner. RSV Amplification Laboratory test result Normal (applies to non-numeric results) [facility] ([facility]) Negative results do not preclude influen za or RSV virus infection and should not be used as the sole basis for treatment or other patient management decisions. ID Date Data Source [id number] 07/11/2020 08:38:00 PM EST [facility] Name Value Range Interpretation Code Description Data Nancy rce(s) Supporting Document(s) SARS coronavirus 2 RNA [Presence] in Res piratory specimen by [facility]AMAR with probe detection [facility] This lab was ordered by [facility] a nd reported by [facility]. ID Date Data Source [id number] 07/11/2020 08:04:00 PM EST [facility] ([facility]) Name Value Range Interpretation Code Description Data Nancy rce(s) Supporting Document(s) Alt/SGPT 25 U/L 12-78 Normal (applies to non-numeric resul ts) [facility] ([facility]) Ast/Sgot 26 U/L 7-37 Normal (applies to non-numeric resul ts) [facility] ([facility]) Bilirubin,Total 1.0 mg/dL 0.2-1.0 Normal (applies to non-numeric results) [facility] ([facility]) Alkaline Phosphatase 57 U/L 45-117 Normal (applies to non-num negar results) [facility] ([facility]) Bilirubin,Direct 0.2 mg/dL 0.0-0.2 Normal (applies to non-numeric results) [facility] ([facility]) Albumin 3.3 GM/DL 3.2-5.2 Normal (applies to non-numeric resul ts) [facility] ([facility]) Total Protein 6.7 GM/DL 6.4-8.2 Normal (applies to non-numeric re sults) [facility] ([facility]) Albumin/Globulin Ratio 1.0 1.2-2.2 Below low normal [facility] ([facility]) ID Date Data Source [id number] 07/11/2020 08:04:00 PM EST [facility] ([facility]) Name Value Range Interpretation Code Description Data Nancy rce(s) Supporting Document(s) Lipase [Enzymatic activity/volume] in Serum or Plasma 24 U/L 73-393 Below low normal [facility] ([facility]) ID Date Data Source [id number] 07/11/2020 08:04:00 PM EST [facility] ([facility]) Name Value Range Interpretation Code Description Data Nancy rce(s) Supporting Document(s) Lipoprotein lipase [Enzymatic activity/volume] in Serum or Plasm a 24 U/L 73-393 [facility] ([facility]) ID Date Data Source [id number] 07/11/2020 08:04:00 PM EST [facility] ([facility]) Name Value Range Interpretation Code Description Data Nancy rce(s) Supporting Document(s) Alt/SGPT 25 U/L 12-78 [facility] ([facility]) Ast/Sgot 26 U/L 7-37 [facility] ([facility], [facility]) Bilirubin,Direct 0.2 mg/dL 0.0-0.2 [facility] ([facility] [place], [facility]) Bilirubin,Total 1.0 mg/dL 0.2-1.0 [facility] ([facility] [place], [facility]) Alkaline Phosphatase 57 U/L 45-117 [facility] ( [facility] [place], [facility]) Total Protein 6.7 GM/DL 6.4-8.2 [facility] ([facility], [facility]) Albumin 3.3 GM/DL 3.2-5.2 [facility] ([facility], [facility]) Albumin/Globulin Ratio 1.0 1.2-2.2 [facility] ([facility], [facility]) ID Date Data Source [id number] 07/11/2020 07:40:00 PM EST [facility] ([facility]) Name Value Range Interpretation Code Description Data Nancy rce(s) Supporting Document(s) White Blood Count 22.2 10 4.0-10.0 Above high normal [facility] ([facility]) Hemoglobin 12.6 g/dL 12.0-15.5 Normal (applies to non-numeric resul ts) [facility] ([facility]) Red Blood Count 3.97 10 4.00-5.40 Below low normal [facility] ([facility]) Hematocrit 37.7 % 36.0-47.0 Normal (applies to non-numeric resul ts) [facility] ([facility]) Mean Corpuscular Volume 95.0 fl 80.0-96.0 Normal ( applies to non-numeric results) [facility] ([facility]) Mean Corpuscular Hemoglobin 31.7 pg 27.0-33.0 Norm al (applies to non-numeric results) [facility] ([facility]) Mean Corpuscular HGB Conc 33.4 g/dL 32.0-36.5 Normal (applies to non-numeric results) [facility] ([facility]) Red Cell Distribution Width 13.1 % 11.5-14.5 Norm al (applies to non-numeric results) [facility] ([facility]) Platelet Count, Automated 194 10 150-450 Normal (applies to non-numeric results) [facility] ([facility]) Neutrophils % 88.6 % 36.0-66.0 Above high normal [facility] ([facility]) Lymph % 6.7 % 24.0-44.0 Below low normal [facility] ( [facility]) Eos % 0.0 % 0.0-3.0 Normal (applies to non-numeric resul ts) [facility] ([facility]) [place] % 3.6 % 0.0-5.0 Normal (applies to non-numeric resul ts) MED[facility] ([facility]) Immature Granulocyte % 0.8 % 0-3.0 Normal (applies to non-n umeric results) [facility] ([facility]) Baso % 0.3 % 0.0-1.0 Normal (applies to non-numeric resul ts) [facility] ([facility]) Neutrophils # 19.6 10 1.5-8.5 Above high normal MEDE NT ([facility]) Nucleated Red Blood Cell % 0.0 % 0-0 Normal (applies to n on-numeric results) [facility] ([facility]) Lymph # 1.5 10 1.5-5.0 Normal (applies to non-numeric resul ts) [facility] ([facility]) [place] # 0.8 10 0.0-0.8 Normal (applies to non-numeric resul ts) [facility] ([facility]) Baso # 0.1 10 0.0-0.2 Normal (applies to non-numeric resul ts) [facility] ([facility]) Eos # 0.0 10 0.0-0.5 Normal (applies to non-numeric resul ts) [facility] ([facility]) ID Date Data Source [id number] 07/11/2020 07:40:00 PM EST [facility] ([facility]) Name Value Range Interpretation Code Description Data Nancy rce(s) Supporting Document(s) Lactate [Mass/volume] in Serum or Plasma 1.9 mmol/L 0.4-2.0 Normal (applies to non-numeric results) [facility] ([facility]) Y/N query for Sepsis Lactate Rule: Y ID Date Data Source [id number] 07/11/2020 07:40:00 PM EST [facility] ([facility], [facility]) Name Value Range Interpretation Code Description Data Nancy rce(s) Supporting Document(s) Lactate [Mass/volume] in Serum or Plasma 1.9 mmol/L 0.4-2.0 [facility] ([facility], [facility]) Y/N query for Sepsis Lactate Rule: Y ID Date Data Source [id number] 07/11/2020 07:40:00 PM EST [facility] ([facility], [facility]) Name Value Range Interpretation Code Description Data Nancy rce(s) Supporting Document(s) White Blood Count 22.2 10 4.0-10.0 [facility] ([facility], [facility]) Red Blood Count 3.97 10 4.00-5.40 [facility] ([facility] Hemoglobin 12.6 g/dL 12.0-15.5 [facility] Hematocrit 37.7 % 36.0-47.0 [facility] Mean Corpuscular Volume 95.0 fl 80.0-96.0 M EDENT ([facility], [facility]) Mean Corpuscular HGB Conc 33.4 g/dL 32.0-36.5 [facility] ([facility]) Mean Corpuscular Hemoglobin 31.7 pg 27.0-33.0 [facility] ([facility], [facility]) Red Cell Distribution Width 13.1 % 11.5-14.5 [facility] ([facility] Neutrophils % 88.6 % 36.0-66.0 MED[facility] ([facility], [facility]) Platelet Count, Automated 194 10 150-450 MED[facility] ([facility], [facility]) Eos % 0.0 % 0.0-3.0 [facility] ([facility]) Lymph % 6.7 % 24.0-44.0 [facility] ([facility]) [place] % 3.6 % 0.0-5.0 [facility] ([facility]) Nucleated Red Blood Cell % 0.0 % 0-0 MED ENT ([facility], [facility]) Immature Granulocyte % 0.8 % 0-3.0 [facility] ([facility], [facility]) Baso % 0.3 % 0.0-1.0 [facility] ([facility], [facility]) Neutrophils # 19.6 10 1.5-8.5 [facility] ([facility], [facility]) Lymph # 1.5 10 1.5-5.0 [facility] ([facility], [facility]) [place] # 0.8 10 0.0-0.8 [facility] ([facility], [facility]) Eos # 0.0 10 0.0-0.5 [facility] ([facility], [facility]) Baso # 0.1 10 0.0-0.2 [facility] ([facility], [facility]) ID Date Data Source [id number] 07/11/2020 06:11:00 PM EST [facility] ([facility]) Name Value Range Interpretation Code Description Data Nancy rce(s) Supporting Document(s) Appearance, Urine RFX Laboratory test result Nor mal (applies to non-numeric results) [facility] ([facility]) Color, Urine RFX Laboratory test result Normal ( applies to non-numeric results) [facility] ([facility]) Specific [place] Ur Auto RFX 1.011 1.002-1.035 Nor mal (applies to non-numeric results) [facility] ([facility]) PH,Urine RFX 6.0 units 5.0-9.0 Normal (applies to non-numeric res ults) [facility] ([facility]) Glucose, Urine (Ua) Auto RFX Laboratory test result Normal (applies to non- numeric results) [facility] ([facility]) Protein, Urine Auto RFX Laboratory test result Above high normal [facility] ([facility]) Ketone, Urine Auto RFX Laboratory test result Above high n ormal [facility] ([facility]) Urobilinogen, Urine Auto RFX 0.2 mg/dL 0.0-2.0 Nor mal (applies to non-numeric results) [facility] ([facility]) Bilirubin, Urine Auto RFX Laboratory test result Normal (applies to non- numeric results) [facility] ([facility]) Leukocyte Esterase Ur Auto RFX Laboratory test result Abov e high normal [facility] ([facility]) Nitrite, Urine Auto RFX Laboratory test result Above high normal [facility] ([facility]) Blood, Urine Blood RFX Laboratory test result Above high n ormal [facility] ([facility]) WBC, Urine Auto RFX 102 /HPF 0-3 Above high normal [facility] ([facility]) Bacteria, Urine Auto RFX Laboratory test result Above high normal [facility] ([facility]) Squam Epithelial Cell Ur Aurfx 1 /HPF 0-6 N ormal (applies to non-numeric results) [facility] ([facility]) RBC, Urine Auto RFX 13 /HPF 0-3 Above high normal [facility] ([facility]) Hyaline Cast, Urine Auto RFX 0 /LPF 0-1 Normal (appl ies to non-numeric results) [facility] ([facility]) ID Date Data Source [id number] 07/11/2020 05:03:00 PM EST [facility] ([facility]) Name Value Range Interpretation Code Description Data Nancy rce(s) Supporting Document(s) EKG Laboratory test result [facility] ([facility]) ID Date Data Source [id number] 05/23/2020 03:40:00 PM EST [facility] Name Value Range Interpretation Code Description Data Nancy rce(s) Supporting Document(s) Respiratory Panel Laboratory test result [facility] ([facility]) This respiratory PCR panel detects Influ nalini [...] - SARS-CoV-2 (COVID19) ID Date Data Source [id number] 05/23/2020 03:40:00 PM EST [facility] Name Value Range Interpretation Code Description Data Nancy rce(s) Supporting Document(s) SARS-CoV-2 (COVID 19) [facility] This lab was ordered by [facility] a nd reported by [facility]. ID Date Data Source [id number] 05/21/2020 04:48:00 PM EST [facility] ([facility]) Name Value Range Interpretation Code Description Data Nancy rce(s) Supporting Document(s) Inhouse Leukocytes Laboratory test result [facility] ([facility]) Inhouse Nitrite Laboratory test result [facility] ([facility]) Inhouse Urobilinogen Laboratory test result [facility] ([facility]) Inhouse Protein Laboratory test result [facility] ([facility]) Inhouse PH 7.0 [facility] ([facility]) Inhouse Specific [place] 1.007 [facility] ([facility]) Inhouse Hemoglobin Laboratory test result [facility] ([facility]) Inhouse Ketones Laboratory test result [facility] ([facility]) Inhouse Bilirubin Laboratory test result [facility] ([facility]) Inhouse Glucose Laboratory test result [facility] ([facility]) ID Date Data Source [id number] 05/21/2020 04:43:00 PM EST [facility] ([facility]) Name Value Range Interpretation Code Description Data Nancy rce(s) Supporting Document(s) Bacteria identified in Urine by Culture Laboratory test result Normal (applies to non-numeric results) [facility] ([facility]) <content>FULL REPORT IN LAB NOTES (eCW a [...] S</content>
<content>CEFAZOLIN IV 1gm q8h <=4 S</content>
<content>LEVOFLOXACIN IV 500mg qd <=0.12 S</content>
<content>LEVOFLOXACIN PO 250mg qd <=0.12 S</content>
<content>LEVOFLOXACIN PO 500mg qd <=0.12 S</content>
<content>TOBRAMYCIN IV 80mg q8h <=1 S</content>
<content> CEFTRIAXONE IV 1gm q24h <=1 S</content>
<content>CEFTAZIDIME IV 1gm q8h <=1 S</content>
<content>AMPICILLIN/SULBACTAM IV 1.5g q6h <=2 S</content>
<content>PIPERACILLIN/TAZOBACTAM IV 2.25 gm q6h <=4 S</content>
<content>AZTREONAM IV 1gm q8h <=1 S</content>
<content>ERTAPENEM IV 1gm qd <=0.5 S</content>
<content> MEROPENEM IV 1 gm q8h <=0.25 S</content>
<content>MEROPENEM IV 500 mg q8h <=0.25 S</content>
<content>TIGECYCLINE IV 50mg q12h <=0.5 S</content>
<content>CEFEPIME IV 1 gm q12h <=1 S</content>
<content>CEFEPIME IV 2 gm q12h <=1 S</content>
<content>EXTD BRD SPCTRM BETA LACTAMASE IV NEGATIVE FOR ESBL</content>
<content></content> ID Date Data Source [id number] 05/13/2020 08:34:40 AM EST [facility] INFORMATIONPatient MRN Name Date of Age Gend*PT [id number] Elena Marroquin 1965 55 years F ---PT Location Admission Date/Time Visit ID Attending Provider --- --- --- --- EPI ID CSN Admitting Provider [id number] ---Name: Elena MarroquinDOB: 1965Date: 05/13/20CIED Remote CheckImplanted Device 07/11/2019Device Lozenge Maker MedtronicDevice type Single Chamber ICDMRI Conditional Device -Device was remotely interrogated and the following were evaluated:Battery statusSummary arrhythmia logsNew observationsFidelity of the EGM signalIntegrity of leads and lead impendence were reevaluatedConclusion:Normal ICD function.No significant changes continue to monitor.Signature: Law Vasquez MD, [facility], RSCardiac Electrophysiology and Arrhythmia ServiceDate: May 13, 2020Time: 8:34 AMThis document or parts of this document, were dictated using [employer]. A reasonable attempt at proofreading has been made to minimize errors.Please call with any questions or corrections. Name Value Range Interpretation Code Description Data Nancy rce(s) Supporting Document(s) ID Date Data Source [id number] 04/25/2020 08:34:00 PM EST [facility] FASTING: UNKNOWNReceived: 04/24/2020 at 08:42:00 V6O: [facility] [address] [place], [address], Mannie Castellon MD,PhD Name Value Range Interpretation Code Description Data Nancy rce(s) Supporting Document(s) Mycobacterium tuberculosis stimulated gamma [...] Passed [facility] ID Date Data Source [id number] 04/11/2020 12:30:00 PM EST [facility] Name Value Range Interpretation Code Description Data Nacny rce(s) Supporting Document(s) Follow Up [facility] GHPECv5wEwQJCyHyBQDyNsrJYPoxRRguTJGdV0U2YQhzDm6YUDsbguHbHUCrAn7+HYJbHV5hbi1mPBCn gMy 5gDMJfLjzvD8UmPAGpo98ZAAEqGLcJHnKmOjKlDKXgBGY9HDT3ENE9JeFuLggsCT9jPFC7AXAuXXdxOB KeKUPhXLBvTKxfVW1mOPtkEApsJj3MQJ4ew2QsHLMzQWHcRiaEDYbpQExtRHXkJOSlALYqA421hyVwIb 9TmWOrJUp9MBCyUnN2NNEeAtE3PVQdPaVkKrMkOGIt YABfHIMQOYV0PUHbCs1bObNyh2ReI9LfSKo0F9dZOflfL5TtIInfYL1iNOZ0NHGnDl9IuRnqJKedNUQZ P6mwVlApEFToYXMNR3eaAcKaYXPjWAYJK4zcAjUvRZvoVJBPO0sqOzQhVxBuRQJJNi6+Pj4+UGClPQ7w ux34GDGsx4MiAJc0F2X0bBXwO3DaK4AvLYPcbTBLd2 ceQcUiKLS3MRTnNzfgVZ0ZZRYmxKXvVPQvROkpYM2kbjJlcIE2XN2DeQgnZHYvGTWZBs8+Vd0DEWUdwp PjSpCqKSJtL15bwHYsxFKsPidzTTOFYY6+HWVdEZ4alq19ZQPsg1NeKYr2F7povkq0qGMbFcLxLBFmJw UjFFBbVU0oWE8HtVP5sGDbBQ8PqVOcOC5ZvSSuCY0V J8NuLYB6W0UfzQLozqKwV8IaAPJvHEGkf3HgUY4AN2NNWCRiGLCtU6LljH5cI6RcB3XxK8ArepyoSORI Zc5WkVT6bSNhCUVtD2hgeOteeSKxNLdtM3XibUYUFBNYj61pj95dlfRvXG5+f7HsUJTpSKh60yz1FVUi KbjxMnoCOGPAjUMDSUdTOtzsqe7hWoJePcU2SbrW1z 5nJFT1Bu4Z3CV63ye3M5TAp9gmw0p/2/yE9WsgRqopHw/NxnTF7ofop3/XABIAVGRkFGQkVBQUlDdvUN Ou4YBw5TNtxD++g1JfH9YkXMvtD0HgGbAy+eZPOEANu8XMjLoFd5ZEee8XoFsjmREOr/4liuE2ehUUIn 2BHTCQaB926Mf8/9/57p0PJISoY1oEuZpKiUmZN1WS [file] José Miguel+z9q6ZLGWBIU1d9Y36HtbRoAe9O7EXLy1ua1Lz [file] LL5rI57DFMOFXxQptZRMPkRAJHYACdSLdsbPvEYKh8 mkv5nOpo3A1VOlx9UkDzzBmIKv1A2x7btiRy28s0d0CyyV0+TQIDQHBsT4rzsv05+OVnyN2Za6yuecsV zMdJmNExOIC9o3n3Cd7Yw5zUR19DpnXP6xcfF+Gfi/RmrFg9VBRG2ixtyiPRyWEDqd/bwAB0g8aknwjp RCmpMlCzBn0h2JykF0xphk+j8qDMJQbbFdZ0NW85yE qXnGS7iOzcQ/MjkZrKOrPHH8Sg21s6FP5xSLY9yhzDZOnfGPfds/sMWkRasjxbPOrbL+E9HHe5iv/8Fi VZkIlR1/OJeUafdroD9qcbUkrpA/VeGmn7RlQ1L4+KJLIq8PYqyqkl1loNhWCd518OCpnXMDriG8MSTV C2FUNgE8L77Iceos0FeeYN4AEh+V9wwS9cXZoDQR4m 8Z578T2oqrzi49s1NIwzMZScwIL9zK/Io4ECuRy3IqhL2H1UIG+bQK1fl5uB/7t+8QCxJcKwlHWyQ32g WmrDa3QryNARCWHQcWJBHvcqOK1iEH+4ND70dvPFpy+nSbCJ65p8ATGeOC2IFY1mrtBGgST30dwWPj/r CLEAT FEEDER/Lpc62Bj31hsKSgj6eu2zSvfxZnW160k+hFu4SM8 lT5+CmU3f8ZjWNlJVRug5WgwqhnqlZBnorry+wWBkQUtTPEFXN1HwJ8CU2wgdXKYBJJgHTbHYk/SOFV9 lhwoeacW3OhMA4vN8tsYAJKJR1U21VeSomccdrD3ZA+lYbXKdLytlrJ6yJwhjWL82WzarCnWMZ1zyeHR A6q3wfhuKSVYZVmQTxmFPg74SwIkiWKBFCsOSEOZHc [file] pharmacy services representative/z3XFTZ8N6tE3vB7xQM713VbYq6PEqwUnkADgbc967p3W78wfV8nYwPwRne4HfTt5wD1Jw+iNmrKH ju6Pnb8SZ2VrgTg36/5XPIzzAc/PSoJ8XffC+SGmcw FWjSU6cJEAZW9kKJx9Tajh+4GZ7w1vQPOUZ+6AsMyeutlZZOdE4DT97jzcP/Kwn4CkljuZu+vYWIkzvQ EoUeni2U+MDitxAk0mKYeFr09sAvPGhxUmYEy/DHezP5l15zCCHOSWp3RZcEVwXtAyMsCkf65lRPQLW9 8Hwm+hLJat/d88q7Vuti3KJ0UmUmeFQ6eaP+2C6YOY N6/OagTyfwGNRt4zd8alW1u+4cLL+3n1W5O9v0tfTH358FhDyM1pVisdCxd7E23Gj7TrXonk8jKi7sQQ up37DqbAla2lOBKONhgFjdJd3//Pf08muU7UNxHp9xv2Or5DPcOe6Vuau05iVF53CwALpMS0yxLeHXkg AUGq2F0RiqbDVGXGA63PXVSfHfa3sGJa5tKCKQSNXt [file] v/FSHN3WD+screw supervisor/I1BAWAhtXblBP9DQHY6E4dRgos78 [file] FEXzJPX4RuRZiMa5GLyj2IpZWa/tmkVFL9Tflmshhfd1NIp0xL/Price Accuracy Supervisor+CX7U38tCIq3tp7kQEc0ZFLQBjs [file] group home+M9BhrcKTriyZuVV3iy2hDRon61kta7ACZtbR6t [file] clerk supervisor/vkeC9K6vePPDBdOJKZsxy3FmxCjcfEDDDx0kmm [file] Z823Fse0muTQa5Ug/TuyiCi9ZN9I8Lf/62vS+2vtmQ2fJ4WGSAoLDIbw6fpxIYzL+9KMYqNz+tTic/DIRECTOR AUTO [file] J4gapCoCiS9CWVEG0QI1avMxtcGT4/9iA5ydQqX5slsyAyw4SqpwT3cVB6vycZVyAAKYMe/vp human resources+neK5nP [file] G37q5y8N71Abp6rYV94NpRwz8Ls7+vp human resources+fRsuiSYRWT [file] 6003QFfSoN3aBNtUp+8qedFSgcSs98WX72keXe+ [file] YgJr3pmX+senior patrol agent/qb7OxfUSiiSDU5uzl9GNQlsN+tL9Q2DD/DUrLqHSgt1TSiNzxNQ0JQlzZMFR0Ko8KGS [file] Price Accuracy Supervisor/pyLwh59s2mbyXFIfbVBKLu7yTtSZUCdixpvVo+lBeXxGIcUneME7uNfIDSRJ98iNnl4dSTL/1fX70 [file] PM5hy8u4OSKrADbRLdTSP04CZt6JvN7gj6p0FVlqxteGiEsIaQPVk3m5/Ig7eL+/pediatrics teacher+71LgrnO8zKckW Y6ergbB0Rse1ZGLPofgOp7GwGhSnZCpDiBy/H0pJSe ThDeQfUeVJo3Q216jY/ILyRfk2h+mkzX0XptZBPVStRp9sCAeJrQtFRAI/CImdtZC+UnQwcpLIpsEUEd pm7mdncECA1uQEop3zkpXzIINJhq0lZmomld/YVhVC5BtYgIogGFsyt2taDMQUJAZBRFtsZ+n/cJYRWK /VjoTUJ373eL6ZqSefcu6ng5+NVk95b46mAzmnncj7 npfxxadufAod1DdsIXownrUcP9N8LYT/aQW/edouard/WuGRGR+S4FzJU1OT5ACuLAgvI9/xpSX17uIBrjsF [file] +/Julián+8SlTis+ykfLcqHk5hK6duVXBSs3Cte0qMJ0GcEdUSWgnUrje8++S52dmTugtpJHpdURb4x/7e [file] Genetic Technologist+y6po2IEIVOFmqcINW8VHX2OS8UrQA80zavVIbU6Mx2i2KIorm/Pa6rnuDaHcNn5B9qk/U7pAq1blb [file] ySjZhVZ6G+zgQ3jqQrrGIw8HvhEdFK/KjGYFzxaNukOlJYYgoSYSL5fduN7uUt/nxBxRWLss+Lori+Ayp MNQb6hzyzA4J6u3JJ+X8TY4ATrtavnjaFAF9cZbY0bYZs5qkxipStnIOGpywsJpqXVKkvy2/rJAQHLnq 9OS5caLKiEeExkJvKFAe8U1YE73wVGmhdxoGackfE7 R03PYrsJCN/wL1AQjE3zLFvBCdHu57IuvbKTExAsrSFY5c/I45pVvA5Lq2eGBMMs46ObnrQjzpSmv/plant pathologist [file] PvDpeZz9yDl18zxeRJTZWxnqec44/3OsrcLSHX5sv2HPBbnRCXGigok7MtnHfU4a2NTN83OBie+c/Dilcia wn8FihM4md0Okv5ggaXkLhhe7Labv7w3KcTDfmy4RMW5VhH3AGwSmXqDrg7T9eJZHvLtUgd3bx0kBYgW +SspjGRfHTQZL2oe90pQXLNWH+xy5za//0LCsrd [file] dIOSkv8EBrzUFXuEws5SmLTgQ+pediatrics teacher/5LmatuZurme/qKUI9w7tF5nt0qtDvadMxmVJYEz8mteb+FMvKfl lrFV5RB5cw3fSRUiVU9c8C+JZ8zunnMJ1emIMsVGNo1xSJvi7RZAw0AC9IkVyRVogpMEChhC2TFozT/P LUvVRFN5wYkKhG1gtw6uzs5ZHGKh1uSgl3zBfP1m7N Ever+SwZbIinw4R4PX+NxLRefda6+O15k5MuXiGzudYU47om7XtbQ/HzLweKoG2BnH+RrlcuzchcaT2R9 [file] +UW2NJJVGDY10lSxWh1n2Cv6GoDYTByiVVVV+Rmr085gSL/f7wvxpkNJ5bu984o3h+Fátima/g0AJhLE2rZ [file] PMj/emergency department nurse/cb2RnTuwyoLBggXJ+3exV+dfU/JYnqXGC3UadEYcXoSy72Z9FQ/pvHFHraFltq2F+PeTha1U [file] tMXjGoITjSVRYJORZpGD3GTJO7i9rzW2lYn/Exv7wSnzGxqH5IxJWUyiAP6/rigudE1hHTsJMJcQX/DIRECTOR AUTO [file] QPKTZRFyOkHHjamkQkqPVoUE1WIiYoWS3qpf8OBbF2JBJ0uRJtAp2PXlN0KQT2Il7WHADXQ1C= ID Date Data Source [id number] 03/23/2020 11:00:00 AM EDT [facility] Name Value Range Interpretation Code Description Data Nancy rce(s) Supporting Document(s) Hydrogen Breath Test [facility] CLECPu5fNxVOHwAbZZYwYbuBRDvvNVyvFZPrG6K3HUgxKu5DZGybhlHjBREpVx1+CBPjRU7vzg6dRPQc gMy [file] xD1+Yln3KjtKfsooddFd2v19kLU7h2oYn58eY5s1dqobfSll7bEgfZkGOHyXgWa+HpKw+firer portable boiler+LxyNGhD [file] Rnjz3tRgxABKe3YVhl1+Utytp2m235lVbWeOpCIVyHwelJmyNayJzJ1CP2Jaep+IeCRu7bqwSpqQ+POISING INSPECTOR [file] /ZU+CLEAT [file] 17lsX7maoXPfnvv1iQs+pW+xdFXy+María/lqGjbG7xjzcNY9Wwcqb/1eDpbxLAJjSj3KTM4tpAFzB5az0 [file] 1mZ0nMeYgjbCZOnNhJqP83/WiCV3/7bkMamwnjQ4ANNlCMIF6ioZ6/+NbkiS+OJpz/Price Accuracy Supervisor/OKFiNCehlLq [file] RQ74GEZEa1SXYmNvNWy4Xxwfdi6F2QJXPnGltB/last trimmer [file] gz5DRoP7JSI9kVItTu8MZiFfYkUvVDoyNIPOGy== ID Date Data Source [id number] 02/20/2020 11:32:00 AM EDT [facility] ([facility]) Name Value Range Interpretation Code Description Data Nancy rce(s) Supporting Document(s) <0.2 0.0-0.5 CRP [facility] ([facility]) ID Date Data Source [id number] 02/20/2020 11:32:00 AM EDT [facility] ([facility]) Name Value Range Interpretation Code Description Data Nancy rce(s) Supporting Document(s) >60 eGFR [facility] ([facility] 0.9 mg/dL 0.6-1.2 CREATININE [facility] ([facility]) ID Date Data Source [id number] 02/20/2020 11:32:00 AM EDT [facility] ([facility]) Name Value Range Interpretation Code Description Data Nancy rce(s) Supporting Document(s) 27 U/L 15-37 AST [facility] ([facility]) ID Date Data Source [id number] 02/20/2020 11:32:00 AM EDT [facility] ([facility]) Name Value Range Interpretation Code Description Data Nancy rce(s) Supporting Document(s) 43 U/L 30-65 ALT [facility] ([facility]) ID Date Data Source [id number] 02/20/2020 11:32:00 AM EDT [facility] ([facility]) Name Value Range Interpretation Code Description Data Nancy rce(s) Supporting Document(s) 4.0 g/dL 3.4-4.4 ALB [facility]) ID Date Data Source [id number] 02/20/2020 11:32:00 AM EDT [facility] ([facility]) Name Value Range Interpretation Code Description Data Nancy rce(s) Supporting Document(s) <2 0-20 ESR [facility]) ID Date Data Source [id number] 02/20/2020 11:32:00 AM EDT [facility] ([facility]) Name Value Range Interpretation Code Description Data Nancy rce(s) Supporting Document(s) 7.2 10*3/uL 3.7-10.1 WBC [facility] ([facility]) 4.23 10*6/uL 3.50-5.50 RBC [facility] ([facility]) 13.6 g/dL 12.0-16.0 HGB [facility] [...] [facility]) ID Date Data Source [id number] 02/08/2020 03:13:00 PM EDT [facility] ([facility]) Name Value Range Interpretation Code Description Data Nancy rce(s) Supporting Document(s) White Blood Count 9.6 10 4.0-10.0 Normal (applies to non-numeri c results) [facility] ([facility]) Red Blood Count 4.11 10 4.00-5.40 Normal (applies to non-numeric results) [facility] ([facility]) Hemoglobin 13.4 g/dL 12.0-15.5 Normal (applies to non-numeric resul ts) [facility] ([facility]) Hematocrit 39.6 % 36.0-47.0 Normal (applies to non-numeric resul ts) [facility] ([facility]) Mean Corpuscular Hemoglobin 32.6 pg 27.0-33.0 Norm al (applies to non-numeric results) [facility] ([facility]) Mean Corpuscular Volume 96.4 fl 80.0-96.0 Above high normal [facility] ([facility]) Mean Corpuscular HGB Conc 33.8 g/dL 32.0-36.5 Normal (applies to non-numeric results) [facility] ([facility]) Red Cell Distribution Width 13.0 % 11.5-14.5 Norm al (applies to non-numeric results) [facility] ([facility]) Neutrophils % 54.6 % 36.0-66.0 Normal (applies to non-numeric re sults) [facility] ([facility]) Platelet Count, Automated 216 10 150-450 Normal (applies to non-numeric results) [facility] ([facility]) Lymph % 34.8 % 24.0-44.0 Normal (applies to non-numeric resul ts) [facility] ([facility]) Eos % 1.8 % 0.0-3.0 Normal (applies to non-numeric resul ts) [facility] ([facility]) [place] % 7.0 % 0.0-5.0 Above high normal [facility] ([facility]) Baso % 1.0 % 0.0-1.0 Normal (applies to non-numeric resul ts) [facility] ([facility]) Immature Granulocyte % 0.8 % 0-3.0 Normal (applies to non-n umeric results) [facility] ([facility]) Lymph # 3.3 10 1.5-5.0 Normal (applies to non-numeric resul ts) [facility] ([facility]) Neutrophils # 5.2 10 1.5-8.5 Normal (applies to non-numeric re sults) [facility] ([facility]) Nucleated Red Blood Cell % 0.0 % 0-0 Normal (applies to n on-numeric results) [facility] ([facility]) Baso # 0.1 10 0.0-0.2 Normal (applies to non-numeric resul ts) [facility] ([facility]) Eos # 0.2 10 0.0-0.5 Normal (applies to non-numeric resul ts) [facility] ([facility]) [place] # 0.7 10 0.0-0.8 Normal (applies to non-numeric resul ts) [facility] ([facility]) ID Date Data Source [id number] 02/08/2020 03:13:00 PM EDT [facility] ([facility]) Name Value Range Interpretation Code Description Data Nancy rce(s) Supporting Document(s) Triglycerides Level 118 mg/dL Normal (applies to non-nume godfrey results) [facility] ([facility]) Cholesterol Level 151 mg/dL Normal (applies to non-numeri c results) [facility] ([facility]) LDL Cholesterol 51 mg/dL Normal (applies to non-numeric results) [facility] ([facility]) HDL Cholesterol 76 mg/dL Normal (applies to non-numeric results) [facility] ([facility]) Non-HDL-C 75 mg/dL Normal (applies to non-numeric resul ts) [facility] ([facility]) Cholesterol Risk Ratio 1.986 Normal (applies to non-n umeric results) [facility] ([facility]) ID Date Data Source [id number] 02/08/2020 03:13:00 PM EDT [facility] ([facility]) Name Value Range Interpretation Code Description Data Nancy rce(s) Supporting Document(s) Hemoglobin A1c 6.7 % Normal (applies to non-numeric r esults) [facility] ([facility]) <content>REFERENCE RANGES:</content><br/ ><content></content>
<content><=5.6% NORMAL</content>
<content>5.7-6.4% SUGGESTS IMPAIRED GLUCOSE METABOLISM/PREDIABETIC</content>
<content>>= 6.5% ABNORMAL</content>
<content></content> Estimated Average Glucose 146 mg/dL 60-110 Above high normal [facility] ([facility]) ID Date Data Source [id number] 02/08/2020 03:13:00 PM EDT [facility] ([facility]) Name Value Range Interpretation Code Description Data Nancy rce(s) Supporting Document(s) Blood Urea Nitrogen 21 mg/dL 7-18 Above high normal [facility] ([facility]) Glucose, Fasting 109 mg/dL 70-100 Above high normal [facility] ([facility]) Creatinine For GFR 0.78 mg/dL 0.55-1.30 Normal (applies to non -numeric results) [facility] ([facility]) Glomerular Filtration Rate Laboratory test result Normal (applies to non- numeric results) [facility] ([facility]) <content>Units are mL/min/1.73 m2</content>
<content></content>
<content>Chronic Kidney Disease Staging per NKF:</content>
<content></content>
<content>Stage I & II GFR >=60 Normal to Mildly Decreased</content>
<content>Stage III GFR 30- 59 Moderately Decreased</content>
<content>Stage IV GFR 15-29 Severely Decreased</content>
<content>Stage V GFR <15 Very Little GFR Left</content>
<content>ESRD GFR <15 on APPRAISER ART</content>
<content></content> Sodium Level 139 meq/L 136-145 Normal (applies to non-numeric res ults) [facility] ([facility]) Chloride Level 103 meq/L 98-107 Normal (applies to non-numeric r esults) [facility] ([facility]) Potassium Serum 3.3 meq/L 3.5-5.1 Below low normal [facility] ([facility]) Carbon Dioxide Level 31 meq/L 21-32 Normal (applies to non-num negar results) [facility] ([facility]) Anion Gap 5 meq/L 8-16 Below low normal [facility] ( [facility]) Ast/Sgot 19 U/L 7-37 Normal (applies to non-numeric resul ts) [facility] ([facility]) Calcium Level 8.9 mg/dL 8.5-10.1 Normal (applies to non-numeric re sults) [facility] ([facility]) Alt/SGPT 54 U/L 12-78 Normal (applies to non-numeric resul ts) [facility] ([facility]) Bilirubin,Total 1.0 mg/dL 0.2-1.0 Normal (applies to non-numeric results) [facility] ([facility]) Alkaline Phosphatase 50 U/L 45-117 Normal (applies to non-num negar results) [facility] ([facility]) Total Protein 6.6 GM/DL 6.4-8.2 Normal (applies to non-numeric re sults) [facility] ([facility]) Albumin 4.2 GM/DL 3.2-5.2 Normal (applies to non-numeric resul ts) [facility] ([facility]) Albumin/Globulin Ratio 1.8 1.2-2.2 Normal (applies to non-n umeric results) [facility] ([facility]) ID Date Data Source [id number] 02/01/2020 05:23:20 PM [facility]T [facility] INFORMATIONPatient MRN Name Date of Age Gend*PT [id number] Elena Marroquin 1965 54 years F ---PT Location Admission Date/Time Visit ID Attending Provider --- --- --- --- EPI ID CSN Admitting Provider [id number] ---Name: Elena MarroquinDOB: 1965Date: 02/01/20CIED Remote CheckImplanted Device 07/11/2019Device Lozenge Maker MedtronicDevice type Single Chamber ICDMRI Conditional Device -Device was remotely interrogated and the following were evaluated:Battery statusSummary arrhythmia logsNew observationsFidelity of the EGM signalIntegrity of leads and lead impendence were reevaluatedConclusion:Normal ICD function.No significant changes continue to monitor.Signature: Law Vasquez MD, [facility], [facility] Electrophysiology and Arrhythmia ServiceDate: February 01, 2020Time: 5:23 PMThis document or parts of this document, were dictated using Wave[employer]dicate[employer]. A reasonable attempt at proofreading has been made to minimize errors.Please call with any questions or corrections. Name Value Range Interpretation Code Description Data Nancy rce(s) Supporting Document(s) ID Date Data Source [id number] 01/26/2020 11:17:00 AM EDT [facility] ([facility]) Name Value Range Interpretation Code Description Data Nancy rce(s) Supporting Document(s) <0.2 0.0-0.5 CRP [facility] ID Date Data Source [id number] 01/26/2020 11:17:00 AM EDT [facility] ([facility]) Name Value Range Interpretation Code Description Data Nancy rce(s) Supporting Document(s) 0.8 mg/dL 0.6-1.2 CREATININE [facility] ([facility]) >60 eGFR [facility] ([facility]) ID Date Data Source [id number] 01/26/2020 11:17:00 AM EDT [facility] ([facility]) Name Value Range Interpretation Code Description Data Nancy rce(s) Supporting Document(s) 28 U/L 15-37 AST [facility]) ID Date Data Source [id number] 01/26/2020 11:17:00 AM EDT [facility] ([facility]) Name Value Range Interpretation Code Description Data Nancy rce(s) Supporting Document(s) 70 U/L 30-65 Above high normal ALT [facility]) ID Date Data Source [id number] 01/26/2020 11:17:00 AM EDT [facility] ([facility]) Name Value Range Interpretation Code Description Data Nancy rce(s) Supporting Document(s) 4.3 g/dL 3.4-4.4 ALB [facility] ([facility]) ID Date Data Source [id number] 01/26/2020 11:17:00 AM EDT [facility] ([facility]) Name Value Range Interpretation Code Description Data Nancy rce(s) Supporting Document(s) <2 0-20 ESR [facility] ([facility]) ID Date Data Source [id number] 01/26/2020 11:17:00 AM EDT [facility] ([facility]) Name Value Range Interpretation Code Description Data Nancy rce(s) Supporting Document(s) 7.9 10*3/uL 3.7-10.1 WBC [...] 64.0 % 50.0-80.0 NED% [facility] 8.8 % 2.0-10.0 MONO% [facility] 1.1 % 0.0-4.0 BASO% [facility] 2.3 % 0.0-5.0 EOS% [facility] ID Date Data Source [id number] 01/15/2020 08:58:50 AM EDT [facility] Name Value Range Interpretation Code Description Data Nancy rce(s) Supporting Document(s) Progress Note [facility] ESDUFl4aJxYWXpNy05/QCLlxLVJlq4EeLJamZAs3BOchYXEqK8VhEWI6qQ7tGHG2AEyYDhHfJgAaXOE9 lbm [file] AgICAgICAgICAgICAgICAgICAgICAgICAgICAgICAg ICAgICAgICAgICAgICAgICAgDQogICAgICAgICAgICAgICAgICAgICAgICAgICAgICAgICAgICAgICAg ICAgICAgICAgICAgICAgICAgICAgICAgICAgICAgICAgICAgICAgICAgICAgICAgICAgICAgICAgICAg DQogICAgICAgICAgICAgICAgICAgICAgICAgICAgIC AgICAgICAgICAgICAgICAgICAgICAgICAgICAgICAgICAgICAgICAgICAgICAgICAgICAgICAgICAgIC AgICAgICAgICAgDQogICAgICAgICAgICAgICAgICAgICAgICAgICAgICAgICAgICAgICAgICAgICAgIC AgICAgICAgICAgICAgICAgICAgICAgICAgICAgICAg ICAgICAgICAgICAgICAgICAgICAgDQogICAgICAgICAgICAgICAgICAgICAgICAgICAgICAgICAgICAg ICAgICAgICAgICAgICAgICAgICAgICAgICAgICAgICAgICAgICAgICAgICAgICAgICAgICAgICAgICAg ICAgDQogICAgICAgICAgICAgICAgICAgICAgICAgIC AgICAgICAgICAgICAgICAgICAgICAgICAgICAgICAgICAgICAgICAgICAgICAgICAgICAgICAgICAgIC AgICAgICAgICAgICAgDQogICAgICAgICAgICAgICAgICAgICAgICAgICAgICAgICAgICAgICAgICAgIC AgICAgICAgICAgICAgICAgICAgICAgICAgICAgICAg ICAgICAgICAgICAgICAgICAgICAgICAgDQogICAgICAgICAgICAgICAgICAgICAgICAgICAgICAgICAg ICAgICAgICAgICAgICAgICAgICAgICAgICAgICAgICAgICAgICAgICAgICAgICAgICAgICAgICAgICAg ICAgICAgDQogICAgICAgICAgICAgICAgICAgICAgIC AgICAgICAgICAgICAgICAgICAgICAgICAgICAgICAgICAgICAgICAgICAgICAgICAgICAgICAgICAgIC AgICAgICAgICAgICAgICAgDQogICAgICAgICAgICAgICAgICAgICAgICAgICAgICAgICAgICAgICAgIC AgICAgICAgICAgICAgICAgICAgICAgICAgICAgICAg WPHbRPPpNKGrDETnHFWvQOQqAGTpWYJkXFGxQJh0G9luGYLeWDMjAD3dUTy0Hk5+KSbUScBeJNR3jkMo yS8MBQ4fl1YtYBpbMQJpd7GdMIb5RX3BXMIxCSgzQI9RZJfldq9DGXRzPPOpdATBo0yvKwUqUMZ9YUWj GcfyKW0UDIFeL8bsvfVzKZZbCIPVWSzhYDDOUKguEQ FGUYIiQIIsLlEvSPmhXM0Di0XhsQK1KAh+Qn3INM7aq4IgYUttWJLmJG6zks6WVYwJNoPvQ1PowlB7JJ KtGIQyYo8VYTCrRNEgiSUpZpElPDEBIvLhP4HovQ07WCSISl3+CYcknjOoEfgEVpVsZHDoq2EeTYc7ZV 9WUOYlWCu1nHSaEWFhO1Vwu5RgKc02XXSpXibaP5B6 nY1tAiKXKAR5ILWdWI0APCF5KQaoKa1uTQMbWTRsLpC2YZOSGM5TGVOkVPEqoNXtWKIdAMVZGQ0DSKdp CEB2TDFtzrYprNTbGIopEV4DAVTsarDkBkLbUCKLHYs+Zo6RUS7wq4MkTWigLxHtHR4lnt7ALMlNMaXt Z0S9fZPrQ5S3LXjlEd8UPPAjSZVyCxqkOUZNQGzrXQ 7QHI9xeiC0PG1FgFLhACPzVDDouUPpHYs3T08huTDpXLnuMD6KCBH+Aurea+Xx7ZUMXiEGBiOVBfWsXnMA QMHhAlM7OaQ0BOp0RuY0JwTQ40wYufyeKwHPkkRM3WPH6zOXQiSKTTRO5OfTLxrA9erzOqTIXnCJHQGh SoM08lyEMhYQUmCCAdWCPlKy9SFAFlH8RitvTyvCdq enLrMPGyUXSCZG4SXEgjeeQfmTUzxJbiUK08gCcuEF1HWh9YWtFqZX7hzw9TvWAlIl0OXICtGF3UEAQq CYZcQBFgMZJ4NQAcZyAkNPgkJYWdNHXaJZD0VGCmNNYhLI2TRcNlCCUsSmcxOUGeBCYzBVLowv0UPNPt KAOrCWa8PMBpYAYjDCPjKQgrIKRfTNXhSGZ2YTZsXZ HhCF7HQnJuHQEvOIB8QiedACLiTXWkuu9JMROyYFToTuO7PiDdSPNkWULpKRnkBDAbLJO3LYDtGPLaXQ CxFQ0JQtKqQUBvDMTzGhLrDCVqQRSvsr0YDVAyTNOySSbaPUFkVFVwUJHsQXujLHOvFSR5SYM8WXWvMZ HxBW9RRxLoGZLgCPXkZXKpWWAeJKWszf2APOFzWJWr HNMwKCIhDKDzALRrKJxkWAYePNLhPytbXZYrNBSmQT1UXwVdOABpCJJ7XsntXIXfLRAchk6UBFGnUUWz JQT6BNNcYWHeRBYnSEuvQUZsLTJrUuWmOFIfQVZnHP4EXrTwNGNtYEF0XkFaLVEkCPJmmg3SVROxGEGa HaIyXOFuUAQgXJByLWtiRUJcCYG4VPWzASTxMAVpFE 9YBmZiSOPfUhN8HzHrMCFiTFEbke8BWJMcMSLyBZl7NSHmYYSqSLEgQJxzDSIoNXN9UiY1DZRrCWViVU 6QXwEwVERyKcUbIaSeRDToLTGxjg5STKElHLOaHpYiFDSiHHYxXVLlFQhdKDJjKLG7UWQvBVCiPCIkDF 5IFtBgNJZmLdA6FURqXEGlYEEklp2ULFUlVIBnPmIh GrXxMQJzGQSbSTqtOBZkMJN8FOB4JWWwDYPrAD1BAdQyWJKiWtx8TYFsHCXuEJCkzj8WGDQsJEOgCUHd RZEoALOvASBgQBroMORtAHR9NZvqCAOvLCJsIX9OTiFwZGLaNfw4OKQrKACgHWUkfa6KFQEuSWZdZOHh OWRvUHVfCTIgTBg8hbEdvMImVBo7YJ5AU0NfzvTvPf YKJx2Re862OVUlLWNjXs1SR0jaHt1hYJHfJLGPCm2VQBz8P9ZpB0ZcVCd4AXF6JGPqEbYkYoK1SMdcZ0 PyKUE8DRD+ANznPnGmYLJ2HNXjUnD4SUG7L4OcLGC0ONG3YTNcIbbdPN0rNEHQAp7+DQpzdGFydHhyZW MXJnNgLoM3IChtEGHVHg7C ID Date Data Source [id number] 01/06/2020 09:15:08 AM EDT [facility] XR SHOULDER COMPLETE [id number] RESULTIn terpreted by:YUSRA [place] SHOULDERCLINICAL STATEMENT: Status [...] Name Value Range Interpretation Code Description Data Nancy rce(s) Supporting Document(s) ID Date Data Source [id number] 12/20/2019 11:45:00 AM EDT [facility] Name Value Range Interpretation Code Description Data Nancy rce(s) Supporting Document(s) Follow Up [facility] NLPYNy3cBbFNDoEoPCRsPfsZWTslJCpqXLCcS1Q8AEkoXd2XCKfivdZaXURfRd4+UGHbPK4gfe3bCTWz gMy [file] 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+yV2ZXcQ9paH9pnZXTtOsR7AP219NfvbFBaSRUh [file] kkwxT6ekuoagDx00VbpG/pediatrics teacher+ed/29Q69xs6j4NYZytCQG4Fo9fTSEBGekfPX2ikyUR3dCAx6txwBD0Bq [file] nVY9d/Mary Kay/tkA6nULqg5XNoK/onwLHydtHzeIQdvfq+WPnp1MYdwSug4SbFP8HE8K8R499BUYgZy6xMi [file] USc2lNCxS9zzQWmbzY/KS/solids control technician+ZaVs+YGdgN+c9AcE [file] dp/DIRECTOR AUTO/QFyRo7kkn+RVB7CoOXSpRm8fnb+dFlBci/VWRXx08a7mpf1fYK8uWqCZyyEdEbyJJumyxmSGnU [file] 8AqBrlvVB+thxLmdtAY99thNFyHElFTT0ZO9P7l+CLEAT FEEDER [file] +9Ai/9CiEhDbV30ABq75pKSlnC29DmtRC3vtb99Lww5CX5VacqZ5nfzj4Lg9Fj+cobbler sole/HfloeDhZHTE2 D8zguK3B7W0wvW3C8z9NJSoks9kYffZWDXTMjCDelCsrxzLh07VUemFaFvqQ1P7CAeQgHQ079l/pediatrics teacher+8q [file] transition social worker/4YbQwXZeooz03OhN3xVWbgpQ5tDEHy/Umxb27Z8nCGw7oYbBx7WcKrJqWtBmlq2L0tZ0bxj2co3m [file] 6kKSrRNIaqQOZB/60mYzq6Iwvk+bJO3zVHl2Q7i/plant pathologist RoHyCQzlQMeu043cXkAMo5OfDHk/qtLz+MhN1f+maiNM/X8av+0k324NhdJslN6834/CqQ1rGePnuuh8 hE6L7ITtN47jE8Ev1I/0ZFywY0QkHIZmHM5XqpCJ9G2/WqEbBhtsUpqkCNqCnCB3mU55wmXaUS5A11Qv 87Kp/2VNKrAoiUnMISTx0n5hKT75oKed4g9VT2Klwp uEg5ikJGTl3krYzIULaK94plfUZZMkRzDSMPRBzBBv89J7S2RKONmJ2JsbQ7Yxo/yk41XodfPQnpHJhF atfrzwpFCutJqsb6kbZmG/71/PHvSuKuF0vY8nyvW2IgV45U69tBVVysn4TcfdFAy5gYmsAkUmBc5z7c Kelsey/Ag6GAhHE/97Ueg6WlKJjlhx9f+oPeth+OGaQo4A [file] o0wV2jDbNb3MM+lmZ6tsTPOZedtQQPlN0wBj7C0kN/HOtG5q6otwon1rDtILFYpRBK17BkbHh2sA+[facility] b++PoSmFs7hBlthnCFYaA/NWR/VupAbOYAOKkMg0gM zTmC4P9BRrjZ7UB+pPNi8DiEE3M5SVCdOzkwjZq40ANVM3rsleLfE+LPy16q363scSPefF318InABH9P d33q4JrrYYiJZQMzHJNvwIBBjFgg/9HfnKxDWBcBG/urwJndk/VaTMpc9uey1XQUa3wWz3hf/vE1V4UA lMuZlkGMcT4uJnGyjPO/G+krukT8VkOivYAhz9MSSy IWRZ4WQxKWf/65uC+75bJCcAnzyb/wTY44kmaRKJ5kzyGCRLfOoQNnCaU/IYZ0Wa5rdC52l5QVJVg+GUILLERMINA [file] n6WXTcVzRVM/José Manuel/x1vW6ufhp0rGQpLN1sETKtplhOJdSmfgsROw3fE73snvMEyePGL4BL3PCCYc21U7 [file] IfiEAE9BWYd4h+4Sbn1pEpucGr8c924fM/DC/STEPHANIE/AHbBp7fErZWn/Cdo0gvT6Y3KqV248f0qmDvQ/wQ Hq1FGzb6YUNq52xw/lE8UDJ50nOZVFMBihoBzOkq1v38GaV0x+9EiaNLc4Pw5t3VRCSyLTBbFbPoUU1x escXhIdvws/Q4kAiPk8dj0wqs+wGdBDPhAbC+KIqr8 +5vr+4u7WbOZrwgh3akF6pr39x3EPH4q0GGTKZLOYs7hKnpPHNT4qLu5VD5Kn5+qFi3+VDN+z0bDI9S1 Bj+/oaFI89L3gnsKghO/uqrlMJX/specialist managers+Tu8eH50h+giuBnPXxQ6bAvdZetHVF4+/JGtvUGtlm/gGIfR [file] Carlos A+6/1+6j3aEmouEwXnajLZ8TCQYK/FnyLpl3/Tj3sQEEncBSZLAguXYloRGFfpLohXqz5tMdJpvic0 [file] RXR9U4VRKra8+37U/1hr6FKReXWutWcgj0Xz//reactor service operator+gIZtbYzeVF7xWAnyCcytJHcb21wYa36NcoHmxQ [file] sq3Sd0upqfPPzglE03HW5AV+xYrHSHjImGQ6J77skBQ5QhKfyuOoZZqHsvNm9l8t0jSNRhH//CLEAT FEEDER+qq4A [file] 7MIQuL2fp7hVveZxRXUWQxKFyVp/MATT/lPR+YNm/pwq wdJwl8xLToOA6HhWFgZ/pYr+37iFi9uedUnKHZfQlOOWVwja2KUDJUUhR19/OVaoUfb8aGPD9sWqeb6y f3yqXl6GxGuwqj1BYwq2lWzMsCozCv5e+cdcmgaAi/dixUWICwZ9TleZ4NHKvkd877gFgHzKBHqNpUiH O9f0yCdBfvp2m2goMTN8YVvDtLXVOVI3cF8Mk7i8Um 2s4Y/qIc3fZC3jTazcLH4bgqe7BW1Z1RpTyJ5zXffIRewIVS+kp9sq4TPLpwT8qR4uzOpiD359wTJhRU JEDOpUUEaurOOsDxwB5MjIYPzHsTIqYAsUH3SbZs36GndyLDj5GMzSeIPl9DTSTHkKJseD4JxvxyTdwj +2QKYCDho3Ys+3jcK1lrgrj7tJ9ai2szr+RBpfq/oM fFoEwMfxZs2cy1s90sPa/rbi3mAc+ygJpphO6Z3fPRJJHhk5mdzlS5CctETD1pyO0chbnuZRkAIbCrFt 6/1r5i1HgrmrxpVRVLh9xRGakFo6PLnxjTWld0PJFPK4CORzWrSXNjZB56zLbqnzifVcyIU4lnZWwL+o OZEER1MbhL3tKg+37/hgDz7nrrOz4evP0VAHntJkRQ /ssis ssrs developer+KzJR8D1jopRB6WvDlPZsSeQiBav5MUXeEdX17Dl7H9IzyW4U6wXZyuo3/x8SBFts1Ex8wl20hQp [file] 0cNZ2mRTmoQoJ0RGa+v72BmNk86XM/equipment tester/Ab+uG+F/lQcQsB5adKzEpUf+sCPiEGuxXESI4ikReIXeSA [file] flIaqtA1rarZSDal6dyH19QszXWWaSgL43lfQH+bSkmtwypwkNeXaCtEcyel7S/17O/Simón/+U195VV+7 [file] 2M5hE3fGsNPd2pJe4LzJi5JsoVm84e+vp human resources+8JvxzRJuNl+egqvP+pQF/TDeNvEVywE0P4gFDqag5TPi7u [file] qPN3t48/Simón+ZPJ+/YVwCeGX1RiDfNdY7/9ydyqKfTHNcpsOtzD/Q7XAWuiFgEreTIeUvk8ygHnLpL5N [file] Q/y3+dDO8pY99O/matt+r995qBPtCGKSNSPkCFKmXGKQkjKC+BMTaIN2pcbNg4A9m4rlJZnc1939yd6ngu uwFAN1umgf8ovVpSFlaNyf4hBuCTfozpo11gcQ1ADRvDO3jsuxeBRAH+66XJ68aSdSh0QJOGXr5Mc75e 9Z2qbHztGm8xWPR2Y3LyGSlzZsNE6LT2fqx51yQpky lXnkONt3GMPEyHUqmVy7sDcgcgQGb6bMJ22GO/Bvk4nFk5xArzMhG6EqubC7YD3wk9MsfG8ik7Ov/pelt salter [file] COMMISSIONER OF OFFICIALS/0EmpedqkQT9xd287p3e4eiM9MxvupvrUAZFuV7lPfDIf23qZNtSfTWQ7lxEYv5+ecCsSY05v2iqM [file] XXh/Wr4t7svMxcFnJZejQL5iTjEvWp7KWls1eC+director skills [file] /b+loX9F6GOLq8Uf57T/8VKXLp+T1/C5aVlQzh l32ybtxR9t+KjZxG/Ao7qnN0QFvgLVTtDT+vqOrBCG2VRyNKSM+6pe10reTeSWY7Sl5gfwRN7b1b2NDg 7Zmc+P0rocjIlHYQCMrgJ93bInDLgjAREoWVa7q37hrYaLfzjTk5z90dYAdsBMD8bBij/92tFl8W/yoB 2WXpXRyGjnW67CJDMm5BL5VKK7uTKxvMkgZibH5+dM sv6OvMzyIl5/hDG394KLSFCvlxQQk4waycQvhnH+vLAs208pxYV8M+WbzzupAsQBU6UpI3cIfXXAFypt pu9f1/Obaj2Vbpw2ekWEx28cbgQ55FQw/DqgS2g+onJ0+Ox90BynzpVUOnOWcs8XWjGfBnX5oTSEebh9 Ii6S9UqVLwPVnJgUipzrNCAePzkPKQuXqHUKpz06ke csaQS/d4gholEzSVf1gwQ1ZAXL8UAtfTwe4XUjBME35ygpzSAxxX7AFhCZqh/hhueu5WmwDtVFVEeQ3b cU5d4aNztfUJJC1iUqB7dny04owkzPkSKGMGDUIOrDXMPdHwWR3tST9gZnX1NrxwnCRbVi3+wnDTYzZH sP8CmGRIwcZGyyEom+bFEh1UbjiYuW64/QivxX0UHl ySBpnkRIrTzgH0bOfb2Y/i62jm5bRQVT3xL/yHDSm4p+IebKSSwijqjQWneKvW1p3q+5QOZsAUehsS4u wH+jXYgByUp0z0R49fzjky0eoz9i0ox2RmPHpm8Ml1olzchSuBVhZmur45b0oN8ccCcu+Ra1ZI7J3SN v8BuHqPAH7WTT9hYizBRl7VgrpKxlhdUpt+RbgpBEq sJauXSyHX78LZj9A8mUbsPwWslGeqeKREhGJgyDDcTlj1A8V59Lk7XWdX/oR2d5R23npae5vTW5nmLox 53ZlaK+a1hzmQ87CT7WkmM353ZXPnqhV6GBP54uNmvpjCE3m7iFEWOkRaYiME/3wh2mTuKScKAqWHeeC KsRkQgsuZnGg8TtbP+o3ze+lpN2x7jiHNUwsjbJo5+ Y0CYorJm26NvIC0LnuxHGsVIZaMvAKlIH4qqjtkT+Zivmy005X+jGxi3VtM64DVtFP3NtGSQgPbGrXQm R51q2VpEkDD90IXAj53nRFlkWdzpFldO7SHOeV96m3OnmnGW7g64UPN+qMy+Mmt57j+40lRWbc9mk4uf fHMSzRzrxHDYo/Dt/Pi8It+FZ+38p+QCNqWzUVpN/0 E5eOGBmOLyiviAefCWtPxzPSFrYIuBfZrqRkmz1QSb1ZIsOLrZgAevJFgyR+pyoDcQnhxKbEjr7auIcO T8kF6sbmRzm+rKxU0AyyLzT967Bjk2HLi2/P9PsKcYGRG7wNxY3wk0eUGvEEzfCstZmlXLvo6IbwQ0V/ WO3jvp9LVIEXWIXtERKFNuvxwR8CRbvISEFbvif3ox [file] 9U7DCQI5NRdLOXIZmNDFGURo3EtLO2w1RRm0xLw+plant pathologist NLOjA0UOeBo0+GD4+UUXfQBy63Co0k5Izdwxtz6BpNLlm+/mfB8/Ohw0ha09t1aoc+013PmcEy11uNYu NfLMnourTrLZ3LCoth4FblObH2nZy176xZAjRR8kgyi6H9/vLJXCun6uK8mrVRDH/r4IfUM2tXG9SR69 W10Uwjrrhtu7jOy7RxjMJTiM/uhDjUf4Cb7Xk5zMa4 P8mLBpRRTpb+9kjf3MiD51sXz9kQ4n4tQTqbHSuegS60viCN2V+ftc4JHY/8fzl6v1U5NCvXM6YoTBvz i5tx89wUtVJCiIBH0bS2zxryBlyhKWunF6bqnoVii9iOg9Z3OO101t/B8htKUjjxJrqwTNm2Jllkg8lL QgS2uv5Ny6BIPw5xxd9XqNHG+SSJPfJacKaO99xhPl 7peLQA9+OPjrHr5KgwUfN+42m3EJ38BPVmtS2bzubKPEMwmwIs5dlMVVqwX49szke/biwiHLPQEuhqjx uc/gbtrZxm3yDuGkCSCKmYnHYDBsmPKzJMbXEtPnMjbjCKQwdoZC084LGAyV3NhexKvG+pDcjeH5gIWU D93DjmmQIrXvsVQHFmKAGBpkoDnUHYYcG1M1s+cZkC ik/0erSvwvJQC8Uw+cM8z/NiWyUh8BDNi0nsFwpKRv53RpDmrKtfAkkRqOspawk0bRko3ih7dMZGyqXk g0owFPbYSYb6/XMXBiESChf7jUArgAZ48A716nZGup6Rp0gXtT6UpGYTRRnWhgNHGz7u0ApNfzpx4mpg MlMcWB8sYohsJyFOwyVvh6TMFnpw8L+lc3rSU+Simin [file] xrhGCE9r+3d1wz5udU16y0+millinery blocker/Zua9oBNTerTSxpNYc4IBQX+cHNYVJ7wfD5VrP+Dl7JWvLQIi9F7/g [file] 1IAL1p93hSrA4oI/ashley+6wiaAaKMpjoZk25pQUXdr15xOODsQ8t8CY3p9jz9JFgcRLbDnqnKhwnmSkLf UPD01OcaRN0r1ukFL/j7FrVKk3zKpYho7/hQQleqdw KSWPeF6ujcu3tUje6pjoLHxjuVSUUJ1ySu/VMV1CkAV/L1sHnhA0FzLZwfnVOuBtvMxvuFD6GHyNvoFq yv2hBnmYjxmne919M9CKPceg+EHZ9ZhqrhBD01EYpNQ90hd5YVSmpJ1M5BfyDRzr2j16S4eTBrmM8kz8 skilled nursing/By9J/UPRuD2vbRXLWwN41/KPWaBVmMGggSODTv [file] 3e3jAew4gQGbHBmuIkTH92MOwBpk5xiz0zNhNi4G7z41eY5ejwf+WMOaaOv83nix9xie/lUqstdv/SEASONAL GREENERY BUNDLER QiEirqEk8gyzjCP8XYSf5u4O+CHQxgUXKmKs88L7+j TQawJ5VZP3kU0xYAlmcJGFgyQTmvXLGgPs1fZ2bQxTAJaX10+njMUBNclEf5KluEhlGfVLMytPG66dec DtQ8t8N7To71x7Lym/fwn/mxHXDQC5y2R8Ub0fz5qJmSXpUQNPXP/77g62TJxlylkziZtlxWzBiS2zqz YiRaLZFBcSEuMJp8Ff6Jv7zMHLuBtPQklF0Z6OJhRo d7jzL0giQf4QwS/WGL+n1zUVPQYRUUp5Sm33u/XEyyDl9FVoDu9282KnojGgq/hUP+2oqlhTH9JTQBsa 28kFPF4VTXw3rO7ht+nTNYDM3nwuhlwMEALdRf3GSaNXhmYhkIALsHBbndBD7/fvHA/8U7jYOOGBZDzE kV6MbyeQ10yZizz9cPAzGX3qmFCVyonwO/bjiwpMRI D5ic+jqD7yNcFN0m/BCtqvksH4rzRDLCArkf9JII5LiLBJzduCn+aHrGC4Uc40mB7Mw8iJopLKGIW9Mi pBp/KwuOj5VGWYcEQJU9f9Y8XoO8k8UpsN3MCphKvnA20rB5/iR+9ocG56UYSLFk4FJzr+5NYbQWVZpi 13kG6hbIiS69Fw/PM5GrPm1yoxTtLqWntUnESWLhrL 1rML2PHL0ryLiYA0rl6mLF+xSs1yVNuu3iH1nsOGU/FMglCFIVKEziVB5JqVbzyl12P6nK0bUG75dj89 Shanti/k3GFX6/3kVXjmchebZ4EN0iUs0LF4s5HQwXCa7XrAZpq4E7f3AkSf8CX+FlX6tQ5sVT672S3ky6m [file] frame assembler+N87HW/9NL/HWmyQpoI4Bt1SW+HQkwWFGFx3mct [file] MICROSOFT CRM DEVELOPER+PjJ5jXxSadTcbNUSQ0nYCZHKXv4oVcHpfh3YEw [file] EiMNIpIVTYCBmb7P9roxmSOgoXH2cWmWcWEQUbKxyX2112yOnUuOs65a5oLsws/hand screen printer//hsk6Jxdeo7DL [file] 0/x0Ts3i8uhhlLiai1/insole bottom filler+dmtSK7QriAgLpm9BFNAnAk0eSaV+g0lipdUFJN1OSolmilGER3J4WwxB7 [file] JUAN M/rVSm3UUQhdtKEkWL5yIZgFN0BL/npx6cH7WRVdec1CB0KcExZq6XLrugWPWMkzVvNSJxGkaoVu2c [file] Jean-Pierre+N5B/acbWcKPy9eidsVGn76GZTHJ4V/BXI9EeP8 [file] yNO9sKPY7pLUY08B9uSsFmDJ9spvZdPnWvgah4R8Z81CqgQan+legal document specialist/jehHxMvJ69OL76BpXVnwOwaAJ [file] J2CE703xnkf299YRMW05Gi6cSaq79B2QcB14mDSZnD /+rVYqtT59cTDO7niisNiWXaa+pyftA6bB1rU+5Sk5//I50lMi85feVrtQBNg3V9w+CLEAT FEEDER+6OzgY1ciy0U [file] yYtb/Price Accuracy Supervisor/kuh6q7MhbcxPg66bFHnkWyeis6ZycBk5zY [file] zkha/A4EhEeidOTglSN0q0Ll9XrCjAyGiHbPrq+assistant designer [file] 8gDwwCLT9xzetgNEfh9RsFNu1GXjOJbkhDgHI57DE62kyOKuQzpvu1MvzjWmXUJdBR3K+bu0Sphj+Maria Isabel JKwRcmLAW52EUE7/MKlYqkhDFq6WlFzd57OwpwuTRzYl+1tICwH7CxguVWD+aJrjrTHekVZUeOJtwJZX YBr4TBplPBBiVV6F1wHeB94a2ZEBWDVrp+ad9RpM3S pldqbpxN9cKfflquvY4gMO11xZEYRTM79YdtgEZyq2mrPKewDLZmrDNvPwkEPHViqXsQNcydV3o//gary Me0GS0035qrs9Pr36JlfupSbEdPSCKAHIMyF12/u7p44/ohsSpswu6RCj0WDByc7rGUC8LtXdA1yW9uW rREhENvQ8DNiRNp8/8NqeB9Kftb+3MjyM18gM5Hl0u XmQ3r8ia3zIb6cUeIDgn0KzDHd5hgi0HL48WwbwMdW/R4IJ/U9QCvOy440TyofMzHYFIxdu18qbx3U3g x/+9D+m0vpBPpL56MM8CPEPJOjS+pu/D+DKhFZxZuwgZ3B6LR+osAjsRI9RFpwK5APxZEcuqFnLqX4Lz Aw9HUbQfKLj7Xtxhqz2J7aUI7NOE3MCYTXmMn09xS8 YCM6meEJ0U/Niuk4KTY+HnUfb6pYJGIIIW97bqSNqgUr4Ng3RAOIBxTeYxVfQ/yEWTgh1Sh8AiLo78K1 SKALExJcqetTAV+cCSOXp4Ul7XinarQYLR4xftY3OhA3sc45CzVLOxhsYM7cgD6u+kZW/OxSAOqfrKf4 Xh4Q964xOBccU9bC59C4dcktQjzO4zGQrMc9yk41vz zP5L+IImr1s103JTQiGt7dXzyt5AnBCokCHcY2vamDK1oKCWFI0hoUuABszvB19hf1Kr0aQTS2Nc7E49 ia3L5Vh4yDhyWL7g3+gBpXRwlq9QN3rClN1JM+c58sxgUxwrvZilKfHbn1oXPkH7movQhpktX4H+4Rx4 g1YNqSnt6I/gFN4LluPe1j/W3CI5MXMf6lwTCaGoOP VZP/sewhl34N4d+/+/diARGlUdB/plant pathologist/j/B/n/zj/f+tvtnb6t5Tx7nPsKRk8bvdh7VOn/fHWMoXh9mdp [file] +vekcvaiWUI8yectBKm6y585fhZhv4g63d9xiEeA5tYJiFELFkggOOi2+x4V52Gqbh2N8Hn06UvtiW or8o6/0BKCyUhHduSsc1zON9fsIJwMpFUHYw+7U2m8kc8D7+Vop2cBQoV1+OkgNwVuLm8kG3aOSj/eLj 8JC+OQ9DI5RTXIi+FGdmBdGTMOtkq+F8S1SbeQ7OyI dmUqzE7HSS0cVsnIT4wpOU/OtK8hBF9HYLa/qNXjfiDfL+HQDW9/C9VI9WDKGdFelBrqGuObfYKiY/DT v7mCQYg4MHfBg5TkiKen0tVb84E/U5amMEYa9+5qh+1Jq4zxwkl8kvk13UY1S6C+KCQD0g2D8P7WQt73 JMsZ1zKRR507NVhYndfOa3EWW1FIYQjGDIr60ZE0yc ZJRoC+F1coUfCY45XpJrXF3SXpc1aRGGbYQt9h2Qz3t7iuK4xOVt05AMReKUBhdZk+zzoxacEgAZP+CLEAT FEEDER [file] q97sIAMty8ik1U27Ex40Z4NpsP76YpeELYYt5lg+pediatrics teacher [file] RX40xM9ViepoAAAxpP5lXWF+CmydTpxz0WIcVAynkUpG4M5bHS3iqcaL4YAkZhRQfXPLJyXFDXnHH/plant pathologist VPGCJ962JU9dCCq6MHL5K1KTn1wprlLFbiWhwd0PsE 1nVIR67Kw8GlEDm6WRxp6FEgNWFw/4kB9qyxS0yrQgmJdqddKoWHjUL+05eJNDQqQ84VvQZZ0sWPbcR5 14Qprn3EFbgULtnJsAxBIsaTf7ZQ8/Qxr0I5YHJa13H37E6EQSeee/ps4VZRWpbikF5OBdI66hGHTPzv OaDnNtikIWZlt/yHEYtEcQXB9GMFiGkf9Gb5/W9DbJ IZ7SRQM45PRuL2FohGPHO7yLzbuuDaVJqqn8vivLIeWrokWW9EAbE16tGAPffpDAjWecU13qpPFGkv8J EHjVOz2CKqYrhUtBhRxQ++LHL9lXbhp6780sif4Z3IY2NQWZwOQbiTZMCOAspdxF7NL1UFqZFGcsTSVp nAYFK0QzZLx0P8LYpMo8Bdfd10jdDIAPT3ULMM45hW fZp7V7ZOLnTr3GzNkCH3sNKrPqHJh9vyvpRPONnr+zkVEm2adZOwFfOGCawMdCQFTjOd8CRq116tiYMc us1B0vSxirN+cAIejdZjRiNWQZeZ9y90aeZNdL5VH927TsgaD672vDQyTZima500yP7sgT6CB5E3ldHH lw/cXWInlf9irOUJd3kYWqUzIYCwHObUplWe24ygH6 Tis5pELVc9dxZscYMj6Zna7r/MS8HEej5l7zX00b8FPUtAEW9qFHdMNfAZK+y/I5+9nFrnqac2ku7+Wilfredo [file] Efraín/GCJ3021MPfq76TSQrH9WzzRwdG7NG5eXaq0O+jC4D49rx1uz62gZNY8fshm1YOy1UQQ2iub+bvog [file] brG8kZKMj1N2FUTRDCYPOKSKN6KqOyFJPCTEdILTOiXhRVMgO4OIM+IUdpV3NYVCV0RUBQRwucBeP2Xj X6Q7Z2BrBEM0F8JnnTAi0iN0Zdu4HnVPZtBGMuGN3okpFiCVXiDh9HhEvmEEHjC7X0dCGmF8aVPPZrKv FbTLI8BZFiVn0acSAbYZ4TWexwJ3WtPYSoHBAXHHOM Akx+IKKBZ7TkdeiQEM9eJzM6tqaHPFI4iGlWWKjNyJmJRVKQIIRjrDIXGiAxMqVds1h3LRSGGwPyO9rI 1HxMEeLFEJWkc6NABfPJGsQJWt2LTR7ba7IvLJVkLCxcrwPuXynPBAnzxRMymBnoEBFXHiVpJgUgDCPA PxGdIC4T ID Date Data Source [id number] 12/09/2019 12:00:00 AM EDT [facility] Maxine Zhong MD Patient Name: SHAHID MARROQUIN [facility]ly [facility] Date [place] : 1965[place] [id number] Date of Exam: 12/09/2019PH#: Fax: [phone] ____EXAM: ABDOMEN AP (KUB) X-RAYCLINICAL INFORMATION: Check for video endocapsule.COMPARISON: 12/07/2019.The digital endovideo capsule over the pelvis on the previous study is nolonger present and has been passed. No other significant changes.LORIE Roe/netomTyury you for referring ELENA MARROQUIN to our office. Electronically Signed - CHICA MCADAMS MD 12/12/19 9:42 Name Value Range Interpretation Code Description Data Nancy rce(s) Supporting Document(s) ID Date Data Source [id number] 12/07/2019 12:00:00 AM EDT [facility] Jarred Arreguin MD Patient Name: [facility] Date of : [facility] Date of Exam: 12/07/2019AMANDA Leach [id number]#: Fax: [phone] EXAM: ABDOMEN AP (KUB) X-RAYCLINICAL INFORMATION: Ingested endocamera, not yet passed.Comparison 12/05/2019.FINDINGS:Compared to the previous study, the endocamera in the right upper quadrantis now in the upper pelvis overlying the left 4th sacral segment.Therefore, it is either distal ileum or rectosigmoid in location. No otherchanges.LORIE Roe/Jonnathan you for referring ELENA MARROQUNI to our office. Electronically Signed - CHICA MCADAMS MD 12/07/19 16:12 Name Value Range Interpretation Code Description Data Nancy rce(s) Supporting Document(s) ID Date Data Source [id number] 12/05/2019 12:00:00 AM EDT [facility] Ilan Ha MD Patient Name: ELENA [id number] Date of : 1965[address] Date of Exam: 12/05/2019AMANDA Ojeda [id number] Fax: [phone] EXAM: ABDOMEN AP (KUB) X-RAYCLINICAL [...] Name Value Range Interpretation Code Description Data Nancy rce(s) Supporting Document(s) Procedure Social History Code Duration Value Status Description Data Source(s ) Alcohol intake 01/01/2021 12:00:00 AM EDT Current non-d crystal of alcohol (finding) completed Current non-drinker of alcohol (finding) [facility] Caffeine Use Details 10/11/2020 12:00:00 AM EDT soda, 8 oz completed soda, 8 oz [facility] ([facility]) 10/11/2020 12:00:00 AM EDT Never smoked tobacco comple alexys Never smoked tobacco [facility] ([facility]) Alcohol Use Details 10/11/2020 12:00:00 AM EDT wine 1 drink rarely completed wine 1 drink rarely [facility] ([facility]) Smoking 10/11/2020 12:00:00 AM EDT Unknown if ever smoked comp leted Unknown if ever smoked [facility] ([facility]) Alcohol intake 10/01/2020 12:00:00 AM EDT Current non-d crystal of alcohol (finding) completed Current non-drinker of alcohol (finding) [facility] Alcohol intake 09/24/2020 12:00:00 AM EDT Current non-d crystal of alcohol (finding) completed Current non-drinker of alcohol (finding) [facility] Alcohol intake 08/17/2020 12:00:00 AM EDT No completed [facility] Smoking 08/17/2020 12:00:00 AM EDT Never smoker completed Never s moker [facility] Smoking 05/21/2020 12:00:00 AM EST Patient has never smoked co mpleted Patient has never smoked MEDENT ([facility]) Alcohol intake 01/15/2020 12:00:00 AM EDT Current non-d crystal of alcohol (finding) completed Current non-drinker of alcohol (finding) [facility] Tobacco use and exposure 01/15/2020 12:00:00 AM EDT Never used co mpleted Never used [facility] Smoking 01/15/2020 12:00:00 AM EDT Never smoker completed Never s [facility] Vital Signs ID Date Data Source UNK Name Value Range Interpretation Code Description Data Source(s) Systolic blood pressure 138 mm[Hg] 138 mm[Hg] M EDENT ([facility]) Diastolic blood pressure 78 mm[Hg] 78 mm[Hg] MEDENT ([facility]) Heart rate 80 /min 80 /min MEDENT ([facility]) Body height 63 [in_i] 63 [in_i] MEDENT ([facility]) 5'3" Body weight 189.12 [lb_av] 189.12 [lb_av] MEDEN T ([facility]) Oxygen saturation in Arterial blood by Pulse oximetry 99 % 99 % MEDENT ([facility]) Body mass index (BMI) [Ratio] 33.5 kg/m2 33.5 k g/m2 MEDENT ([facility]) Systolic blood pressure 110 mm[Hg] 110 mm[Hg] M EDENT ([facility] ) Diastolic blood pressure 78 mm[Hg] 78 mm[Hg] MEDENT ([facility] ) Heart rate 76 /min 76 /min MEDENT ([facility] ) Respiratory rate 16 /min 16 /min MEDENT ( [facility] ) Body weight 193 [lb_av] 193 [lb_av] W1 ([facility]) Body height 64 [in_i] 64 [in_i] eCW1 ([facility]) Body mass index (BMI) [Ratio] 33.12 kg/m2 33.12 kg/m2 W1 ([facility]) Heart rate 83 /min 83 /min W1 ([facility]) Respiratory rate 19 /min 19 /min eCW1 ([facility]) Body temperature 96.8 [degF] 96.8 [degF] eCW1 ( [facility]) Systolic blood pressure 150 mm[Hg] 150 mm[Hg] e CW1 ([facility]) Diastolic blood pressure 81 mm[Hg] 81 mm[Hg] eCW1 ([facility]) Body height 162.56 cm 162.56 cm Next[facility] ([facility]) Body weight 87.543 kg 87.543 kg [facility] ([facility]) Systolic blood pressure 124 mm[Hg] 124 mm[Hg] N extGen ([facility]) Diastolic blood pressure 60 mm[Hg] 60 mm[Hg] [facility] ([facility]) Body temperature 36.28 Lavonne 36.28 Lavonne [facility] ([facility]) Body mass index (BMI) [Ratio] 33.13 kg/m2 Overweight 33.13 kg/m2 [facility] ([facility]) Systolic blood pressure 120 mm[Hg] 120 mm[Hg] [facility] Diastolic blood pressure 84 mm[Hg] 84 mm[Hg] [facility] Heart rate 80 /min 80 /min [facility] Body height 165.1 cm 165.1 cm [facility] Body weight 88.451 kg 88.451 kg [facility] Body mass index (BMI) [Ratio] 32.45 kg/m2 32.45 kg/m2 [facility] Body temperature 35.61 Lavonne 35.61 Lavonne [facility] Oxygen saturation in Arterial blood by Pulse oximetry 98 % 98 % [facility] Systolic blood pressure 165 mm[Hg] 165 mm[Hg] M EDENT ([facility]) Diastolic blood pressure 86 mm[Hg] 86 mm[Hg] MEDENT ([facility]) Body height 64 [in_i] 64 [in_i] MEDENT ([facility]) 5'4" Heart rate 110 /min 110 /min MEDENT ([facility]) Respiratory rate 20 /min 20 /min [facility] ( [facility]) Body temperature 100.0 [degF] 100.0 [degF] MEDE NT ([facility]) Oxygen saturation in Arterial blood by Pulse oximetry 92 % 92 % MEDENT ([facility]) [place] body weight 120 [lb_av] 120 [lb_av] MEDEN T ([facility]) Body weight 193.6 [lb_av] 193.6 [lb_av] eCW1 ([facility]) Body height 64 [in_i] 64 [in_i] eCW1 ([facility]) Body mass index (BMI) [Ratio] 33.23 kg/m2 33.23 kg/m2 eCW1 ([facility]) Heart rate 78 /min 78 /min eCW1 ([facility]) Respiratory rate 18 /min 18 /min eCW1 ([facility]) Body temperature 97.1 [degF] 97.1 [degF] eCW1 ( [facility]) Systolic blood pressure 142 mm[Hg] 142 mm[Hg] e CW1 ([facility]) Diastolic blood pressure 78 mm[Hg] 78 mm[Hg] eCW1 ([facility]) Body weight 198 [lb_av] 198 [lb_av] eCW1 ([facility]) Body height 64 [in_i] 64 [in_i] eCW1 ([facility]) Body mass index (BMI) [Ratio] 33.98 kg/m2 33.98 kg/m2 eCW1 ([facility]) Heart rate 90 /min 90 /min eCW1 ([facility]) Respiratory rate 18 /min 18 /min eCW1 ([facility]) Body temperature 97.5 [degF] 97.5 [degF] eCW1 ( [facility]) Systolic blood pressure 150 mm[Hg] 150 mm[Hg] e CW1 ([facility]) Diastolic blood pressure 82 mm[Hg] 82 mm[Hg] eCW1 ([facility]) Body weight 199 [lb_av] 199 [lb_av] eCW1 ([facility]) Body height 64 [in_i] 64 [in_i] eCW1 ([facility]) Body mass index (BMI) [Ratio] 34.15 kg/m2 34.15 kg/m2 eCW1 ([facility]) Heart rate 60 /min 60 /min eCW1 ([facility]) Respiratory rate 18 /min 18 /min eCW1 ([facility]) Body temperature 96.8 [degF] 96.8 [degF] eCW1 ( [facility]) Systolic blood pressure 148 mm[Hg] 148 mm[Hg] e CW1 ([facility]) Diastolic blood pressure 76 mm[Hg] 76 mm[Hg] eCW1 ([facility]) Systolic blood pressure 138 mm[Hg] 138 mm[Hg] [facility] Diastolic blood pressure 80 mm[Hg] 80 mm[Hg] [facility] Heart rate 90 /min 90 /min [facility] Body temperature 35.67 Lavonne 35.67 Lavonne [facility] Respiratory rate 20 /min 20 /min [facility] Body height 165.1 cm 165.1 cm [facility] Body weight 88.179 kg 88.179 kg [facility] Body mass index (BMI) [Ratio] 32.35 kg/m2 32.35 kg/m2 [facility] Oxygen saturation in Arterial blood by Pulse oximetry 96 % 96 % [facility] Body weight 199 [lb_av] 199 [lb_av] eCW1 ([facility]) Body height 64 [in_i] 64 [in_i] W1 ([facility]) Body mass index (BMI) [Ratio] 34.15 kg/m2 34.15 kg/m2 eCW1 ([facility]) Heart rate 84 /min 84 /min eCW1 ([facility]) Respiratory rate 18 /min 18 /min eCW1 ([facility]) Body temperature 96.8 [degF] 96.8 [degF] eCW1 ( [facility]) Systolic blood pressure 136 mm[Hg] 136 mm[Hg] e CW1 ([facility]) Diastolic blood pressure 76 mm[Hg] 76 mm[Hg] eCW1 ([facility]) Body weight 199 [lb_av] 199 [lb_av] eCW1 ([facility]) Body height 64 [in_i] 64 [in_i] eCW1 ([facility]) Body mass index (BMI) [Ratio] 34.15 kg/m2 34.15 kg/m2 eCW1 ([facility]) Heart rate 78 /min 78 /min eCW1 ([facility]) Respiratory rate 16 /min 16 /min eCW1 ([facility]) Body temperature 96.6 [degF] 96.6 [degF] eCW1 ( [facility]) Systolic blood pressure 146 mm[Hg] 146 mm[Hg] e CW1 ([facility]) Diastolic blood pressure 74 mm[Hg] 74 mm[Hg] eCW1 ([facility]) Body weight 247 [lb_av] 247 [lb_av] eCW1 ([facility]) Body height 64 [in_i] 64 [in_i] eCW1 ([facility]) Body mass index (BMI) [Ratio] 42.39 kg/m2 42.39 kg/m2 eCW1 ([facility]) Heart rate 97 /min 97 /min eCW1 ([facility]) Respiratory rate 18 /min 18 /min eCW1 ([facility]) Systolic blood pressure 132 mm[Hg] 132 mm[Hg] e CW1 ([facility]) Diastolic blood pressure 82 mm[Hg] 82 mm[Hg] eCW1 ([facility]) [place] body weight 120 [lb_av] 120 [lb_av] MEDEN T ([facility]) Body weight 196.50 [lb_av] 196.50 [lb_av] MEDEN T ([facility]) Oxygen saturation in Arterial blood by Pulse oximetry 97 % 97 % MEDENT ([facility]) Systolic blood pressure 138 mm[Hg] 138 mm[Hg] M EDENT ([facility]) Diastolic blood pressure 84 mm[Hg] 84 mm[Hg] MEDENT ([facility]) Body height 64 [in_i] 64 [in_i] BERNADETTE ([facility]) 5'4" Body mass index (BMI) [Ratio] 33.7 kg/m2 33.7 k g/m2 MEDENT ([facility]) Heart rate 50 /min 50 /min MEDENT ([facility]) Respiratory rate 18 /min 18 /min MEDENT ( [facility]) Body temperature 97.9 [degF] 97.9 [degF] MEDENT ([facility]) Diastolic blood pressure 81 mm[Hg] 81 mm[Hg] JAIRO ([facility]) Body height 64 [in_i] 64 [in_i] JAIRO ([facility]) Systolic blood pressure 149 mm[Hg] 149 mm[Hg] A THENA ([facility]) Diastolic blood pressure 81 mm[Hg] 81 mm[Hg] JAIRO ([facility]) Body height 64 [in_i] 64 [in_i] JAIRO ([facility]) Systolic blood pressure 149 mm[Hg] 149 mm[Hg] A THENA ([facility]) Systolic blood pressure 128 mm[Hg] 128 mm[Hg] M EDENT ([facility]) Diastolic blood pressure 78 mm[Hg] 78 mm[Hg] MEDENT ([facility]) Body height 64 [in_i] 64 [in_i] MEDENT ([facility]) 5'4" Body weight 196.38 [lb_av] 196.38 [lb_av] MEDEN T ([facility]) Body mass index (BMI) [Ratio] 33.7 kg/m2 33.7 k g/m2 MEDENT ([facility]) Body temperature 97.6 [degF] 97.6 [degF] MEDENT ([facility]) Oxygen saturation in Arterial blood by Pulse oximetry 99 % 99 % MED[facility] ([facility]) [place] body weight 120 [lb_av] 120 [lb_av] MEDEN T ([facility]) Heart rate 107 /min 107 /min MED[facility] ([facility]) Respiratory rate 18 /min 18 /min MEDENT ( [facility]) Oxygen saturation in Arterial blood by Pulse oximetry 93 % 93 % MED[facility] ([facility]) [place] body weight 120 [lb_av] 120 [lb_av] MEDEN T ([facility]) Systolic blood pressure 128 mm[Hg] 128 mm[Hg] M EDENT ([facility]) Diastolic blood pressure 78 mm[Hg] 78 mm[Hg] MEDENT ([facility]) Body height 64 [in_i] 64 [in_i] MEDENT ([facility] 5'4" Heart rate 112 /min 112 /min MEDENT ([facility]) Respiratory rate 18 /min 18 /min MEDENT ( [facility]) Body temperature 99.2 [degF] 99.2 [degF] MEDENT ([facility]) [place] body weight 120 [lb_av] 120 [lb_av] MEDEN T ([facility]) Systolic blood pressure 140 mm[Hg] 140 mm[Hg] M EDENT ([facility]) Diastolic blood pressure 84 mm[Hg] 84 mm[Hg] MEDENT ([facility]) Body height 64 [in_i] 64 [in_i] MEDENT ([facility]) 5'4" Body weight 189.00 [lb_av] 189.00 [lb_av] MEDEN T ([facility]) Body mass index (BMI) [Ratio] 32.4 kg/m2 32.4 k g/m2 MED[facility] ([facility]) Heart rate 121 /min 121 /min MED[facility] ([facility]) Respiratory rate 18 /min 18 /min MEDENT ( [facility]) Body temperature 99.4 [degF] 99.4 [degF] MEDENT ([facility]) Oxygen saturation in Arterial blood by Pulse oximetry 97 % 97 % MEDENT ([facility]) Diastolic blood pressure 88 mm[Hg] 88 mm[Hg] MEDENT ([facility]) Body temperature 98.6 [degF] 98.6 [degF] MEDENT ([facility]) Oxygen saturation in Arterial blood by Pulse oximetry 99 % 99 % MED[facility] ([facility]) [place] body weight 120 [lb_av] 120 [lb_av] MEDEN T ([facility]) Systolic blood pressure 132 mm[Hg] 132 mm[Hg] M EDENT ([facility]) Body height 64 [in_i] 64 [in_i] MEDENT ([facility]) 5'4" Heart rate 112 /min 112 /min MEDENT ([facility]) Respiratory rate 20 /min 20 /min MEDENT ( [facility]) Systolic blood pressure 132 mm[Hg] 132 mm[Hg] M EDENT ([facility]) Diastolic blood pressure 76 mm[Hg] 76 mm[Hg] MEDENT ([facility]) Body weight 202.50 [lb_av] 202.50 [lb_av] MEDEN T ([facility]) Body temperature 98.9 [degF] 98.9 [degF] MEDENT ([facility]) Body height 64 [in_i] 64 [in_i] MEDENT ([facility]) 5'4" Body mass index (BMI) [Ratio] 34.8 kg/m2 34.8 k g/m2 MEDENT ([facility]) Heart rate 96 /min 96 /min MED[facility] ([facility]) Respiratory rate 18 /min 18 /min MEDENT ( [facility]) Oxygen saturation in Arterial blood by Pulse oximetry 98 % 98 % [facility] [place] body weight 120 [lb_av] 120 [lb_av] MEDEN T ([facility]) Body height 162.56 cm 162.56 cm [facility] ([facility]) Body weight 90.718 kg 90.718 kg [facility] ([facility]) Systolic blood pressure 104 mm[Hg] 104 mm[Hg] N extGen ([facility]) Diastolic blood pressure 72 mm[Hg] 72 mm[Hg] Next[facility] ([facility]) Body mass index (BMI) [Ratio] 34.33 kg/m2 Overweight 34.33 kg/m2 Next[facility] ([facility]) Diastolic blood pressure 80 mm[Hg] 80 mm[Hg] MEDENT ([facility]) Body weight 201.12 [lb_av] 201.12 [lb_av] MEDEN T ([facility]) Body mass index (BMI) [Ratio] 34.5 kg/m2 34.5 k g/m2 MEDENT ([facility]) Body temperature 98.3 [degF] 98.3 [degF] MEDENT ([facility]) Systolic blood pressure 137 mm[Hg] 137 mm[facility]] [facility] Body height 64 [in_i] 64 [in_i] MEDENT ([facility]) 5'4" Heart rate 59 /min 59 /min MEDENT ([facility]) Respiratory rate 20 /min 20 /min MEDENT ( [facility]) Oxygen saturation in Arterial blood by Pulse oximetry 100 % 100 % [facility]) [place] body weight 120 [lb_av] 120 [lb_av] MEDEN T ([facility]) Systolic blood pressure 142 mm[Hg] 142 mm[Hg] N extGen ([facility]) Diastolic blood pressure 80 mm[Hg] 80 mm[Hg] Next[facility] ([facility]) Body mass index (BMI) [Ratio] 34.84 kg/m2 Overweight 34.84 kg/m2 [facility] ([facility]) Body height 162.56 cm 162.56 cm Next[facility] ([facility]) Body weight 92.079 kg 92.079 kg [facility] Systolic blood pressure 134 mm[Hg] 134 mm[Hg] [facility] Body height 64 [in_i] 64 [in_i] MEDENT ([facility]) 5'4" Body weight 192.38 [lb_av] 192.38 [lb_av] MEDEN T ([facility]) Body mass index (BMI) [Ratio] 33.0 kg/m2 33.0 k g/m2 MED[facility] ([facility]) Heart rate 102 /min 102 /min MED[facility] ([facility]) Respiratory rate 20 /min 20 /min MED[facility] ( [facility]) Body temperature 99.0 [degF] 99.0 [degF] MEDENT ([facility]) Oxygen saturation in Arterial blood by Pulse oximetry 92 % 92 % MED[facility] ([facility]) Diastolic blood pressure 78 mm[Hg] 78 mm[Hg] MED[facility] ([facility]) Body height 64 [in_i] 64 [in_i] JAIRO ([facility]) Body height 64 [in_i] 64 [in_i] JAIRO ([facility]) Body height 64 [in_i] 64 [in_i] JAIRO ([facility]) Body height 64 [in_i] 64 [in_i] JAIRO ([facility]) Body height 64 [in_i] 64 [in_i] JAIRO ([facility]) Body height 64 [in_i] 64 [in_i] JAIRO ([facility]) Body height 64 [in_i] 64 [in_i] JAIRO ([facility]) Patient Treatment Plan of Care Planned Activity Planned Date Details Description Data Source (s) Amiodarone hydrochloride 200 MG Oral Tablet 01/02/2021 12:00:00 AM EDT [facility] rivaroxaban 20 MG Oral Tablet 01/01/2021 12:00:00 AM EDT [facility] Catheters - 11/16/2020 12:00:00 AM EDT e CW1 ([facility]) [place] Urinary Leg Bag - 11/16/2020 12:00:00 AM EDT eCW1 ([facility]) Leucovorin 5 MG Oral Tablet 10/11/2020 12:00:00 AM EDT [facility] ([facility]) Orencia ClickJect 125 mg/mL subcutaneous auto-injector 10/11/2020 12:00:00 AM EDT [facility] ([facility]) Methotrexate 2.5 MG Oral Tablet 10/11/2020 12:00:00 AM EDT [facility] ([facility]) Cyclobenzaprine hydrochloride 10 MG Oral Tablet 10/11/2020 12:00:00 AM EDT [facility] ([facility]) cevimeline 30 MG Oral Capsule 10/11/2020 12:00:00 AM EDT [facility] ([facility]) 0.9 ML tocilizumab 180 MG/ML Prefilled Syringe [Actemr a] 09/26/2020 12:00:00 AM EDT [facility] ([facility]) rivaroxaban 20 MG Oral Tablet 09/24/2020 12:00:00 AM EDT [facility] Metoprolol Tartrate 50 MG Oral Tablet 09/24/2020 12:00:00 AM EDT [facility] doxycycline hyclate 100 MG Oral Tablet 09/20/2020 12:00:00 AM EDT [facility] Sulfamethoxazole 800 MG / Trimethoprim 160 MG Oral Tab let [Bactrim] 08/21/2020 12:00:00 AM EDT eCW1 ([facility]) cevimeline 30 MG Oral Capsule 08/13/2020 12:00:00 AM EDT [facility] ([facility]) Fluconazole 200 MG Oral Tablet 08/13/2020 12:00:00 AM EDT eCW1 ([facility]) Fluconazole 200 MG Oral Tablet 08/13/2020 12:00:00 AM EDT eCW1 ([facility]) Fluconazole 200 MG Oral Tablet 08/13/2020 12:00:00 AM EDT eCW1 ([facility]) Methotrexate 2.5 MG Oral Tablet 08/01/2020 12:00:00 AM EST [facility] ([facility]) Orencia ClickJect 125 mg/mL subcutaneous auto-injector 06/11/2020 12:00:00 AM EST [facility] Methotrexate 2.5 MG Oral Tablet [...] a] 12/01/2019 12:00:00 AM EDT [facility]) Prednisone 5 MG Oral Tablet 11/29/2019 [...] a] 06/14/2019 12:00:00 AM EST [facility] Nystatin [id number] UNT/ML Oral Suspension 04/05/2019 12:00:00 AM EST [facility] ([facility]) Metoprolol Tartrate 25 MG Oral Tablet 09/03/2018 12:00:00 AM EDT [facility] Losartan Potassium 100 MG Oral Tablet 05/29/2018 12:00:00 AM EST [facility] Diclofenac Sodium 75 MG Delayed Release Oral Tablet 06/29/19 12:00:00 AM EST [facility] gabapentin 300 MG Oral Capsule 04/24/2017 12:00:00 AM EST [facility] Klor-Con 10 10 mEq Tab NextG [facility] ([facility]) rivaroxaban 20 MG Oral Tablet [facility] Metoprolol Tartrate 50 MG Oral Tablet [facility] Prednisone 5 MG Oral Tablet [facility] rifaximin 550 MG Oral Tablet [XIFAXAN] JAIRO ([facility]) Prednisone 10 MG Oral Tablet JAIRO ([facility]) Metformin hydrochloride 1000 MG Oral Tablet JAIRO ([facility]) Dicyclomine Hydrochloride 20 MG Oral Tablet JAIRO ([facility]) Diclofenac Sodium 75 MG Delayed Release Oral Tablet JAIRO ([facility]) Diclofenac Sodium 25 MG Delayed Release Oral Tablet JAIRO ([facility]) Clindamycin 300 MG Oral Capsule JAIRO ([facility]) Cefuroxime 500 MG Oral Tablet JAIRO ([facility]) Carisoprodol 350 MG Oral Tablet JAIRO ([facility]) Amitriptyline Hydrochloride 25 MG Oral Tablet JAIRO ([facility]) Actemra 1 injection every week JAIRO ([facility]) Cyclosporine 0.5 MG/ML Ophthalmic Suspension [facility] 24 HR venlafaxine 75 MG Extended Release Oral Capsule [facility] Hydrochlorothiazide 25 MG Oral Tablet [facility] potassium citrate 10 MEQ Extended Release Oral Tablet [facility] 0.9 ML tocilizumab 180 MG/ML Prefilled Syringe [facility] Spironolactone 25 MG Oral Tablet [facility] potassium chloride SA (K-DUR,KLOR-CON) 10 MEQ tablet [facility] Metformin hydrochloride 1000 MG Oral Tablet [facility] Baclofen 10 MG Oral Tablet [facility] rifaximin 550 MG Oral Tablet [XIFAXAN] JAIRO ([facility]) Sulfamethoxazole 800 MG / Trimethoprim 160 MG Oral Tablet JAIRO ([facility]) Prednisone 10 MG Oral Tablet JAIRO ([facility]) Metformin hydrochloride 1000 MG Oral Tablet JAIRO ([facility]) Dicyclomine Hydrochloride 20 MG Oral Tablet JAIRO ([facility]) Diclofenac Sodium 75 MG Delayed Release Oral Tablet [facility]IR[facility] ([facility]) Diclofenac Sodium 25 MG Delayed Release Oral Tablet [facility]IR[facility] ([facility]) Clindamycin 300 MG Oral Capsule JAIRO ([facility]) Cefuroxime 500 MG Oral Tablet [facility]IR[facility] ([facility]) Carisoprodol 350 MG Oral Tablet [facility]IR[facility] ([facility]) Amitriptyline Hydrochloride 25 MG Oral Tablet [facility]IR[facility] ([facility]) Actemra 1 injection every week [facility]IR[facility] ([facility]) rifaximin 550 MG Oral Tablet [XIFAXAN] JAIRO ([facility]) Sulfamethoxazole 800 MG / Trimethoprim 160 MG Oral Tablet JAIRO ([facility]) Prednisone 10 MG Oral Tablet JAIRO ([facility]) Metformin hydrochloride 1000 MG Oral Tablet [facility]IR[facility] ([facility]) Dicyclomine Hydrochloride 20 MG Oral Tablet JAIRO ([facility]) Dicyclomine Hydrochloride 10 MG Oral Capsule JAIRO ([facility]) Diclofenac Sodium 75 MG Delayed Release Oral Tablet [facility]IRO ([facility]) Diclofenac Sodium 25 MG Delayed Release Oral Tablet [facility]IR[facility] ([facility]) Cyclobenzaprine hydrochloride 10 MG Oral Tablet JAIRO ([facility]) Clindamycin 300 MG Oral Capsule [facility]IRO ([facility]) Cefuroxime 500 MG Oral Tablet [facility]IR[facility] ([facility]) Carisoprodol 350 MG Oral Tablet [facility]IR[facility] ([facility]) Amitriptyline Hydrochloride 25 MG Oral Tablet [facility]IR[facility] ([facility]) Actemra 1 injection every week JAIRO ([facility])
[2021-01-22] MEDS ORDERED: ACETAMINOPHEN 325 MG TAB PO ONE (12:30)
--- NOTE | 2021-01-22 13:01 | REP ---
INDICATION: DYSPNEA/COUGH COMPARISON: 12/11/2020 TECHNIQUE: Portable AP view of the chest FINDINGS: The mediastinum and cardiac silhouette are stable and within normal limits for portable technique. The lung ching are clear without acute consolidation, effusion, or pneumothorax. Skeletal structures are intact. IMPRESSION: No acute cardiopulmonary process appreciated. <Electronically signed by [place] > 01/22/21 1257
[2021-01-22 14:44] LABS: RSV AMPLIFICATION NEGATIVE (NEGATIVE)
[2021-01-22 14:48] LABS: ALBUMIN 3.7 GM/DL (3.2-5.2); ALT/SGPT 28 U/L (12-78); BILIRUBIN,DIRECT 0.1 MG/DL (0.0-0.2); BILIRUBIN,TOTAL 0.7 MG/DL (0.2-1.0); BLOOD UREA NITROGEN 12 MG/DL (7-18); CALCIUM LEVEL 8.5 MG/DL (8.5-10.1); CARBON DIOXIDE LEVEL 31 MEQ/L (21-32); CHLORIDE LEVEL 103 MEQ/L (98-107); CK-MB VALUE MASS 1.4 NG/ML (<3.6); CPK CREATINE PHOSPHOKINASE 112 U/L (26-192); CREATININE FOR GFR 0.89 MG/DL (0.55-1.30); GLOMERULAR FILTRATION RATE > 60.0 (>51); GLUCOSE, FASTING 173 MG/DL (70-100); MB/CK RELATIVE INDEX 1.25 (< OR =4); POTASSIUM SERUM 3.5 MEQ/L (3.5-5.1); SODIUM LEVEL 140 MEQ/L (136-145); THYROID STIMULATING HORMONE 0.791 uIU/ML (0.358-3.740); TOTAL PROTEIN 7.4 GM/DL (6.4-8.2); TROPONIN I < 0.02 NG/ML (< 0.10)
[2021-01-22 16:02] LABS: BASO # 0.1 10^3/uL (0.0-0.2); BASO % 0.4 % (0.0-1.0); HEMATOCRIT 37.9 % (36.0-47.0); LYMPH # 1.1 10^3/uL (1.5-5.0); LYMPH % 7.4 % (24.0-44.0); MEAN CORPUSCULAR HEMOGLOBIN 31.6 pg (27.0-33.0); MEAN CORPUSCULAR HGB CONC 34.3 g/dl (32.0-36.5); MONO # 0.8 10^3/uL (0.0-0.8); MONO % 5.7 % (2.0-8.0); NEUTROPHILS # 12.1 10^3/uL (1.5-8.5); NEUTROPHILS % 85.9 % (36.0-66.0); PLATELET COUNT, AUTOMATED 224 10^3/uL (150-450); RED BLOOD COUNT 4.12 10^6/uL (4.00-5.40); WHITE BLOOD COUNT 14.1 10^3/uL (4.0-10.0)
[2021-01-22] MEDS ORDERED: NS 1,000 ML IV SCH (17:25)
[2021-01-22] MEDS ORDERED: NS 500 ML IV ONE (18:25)
[2021-01-22] MEDS ORDERED: CIPR-249 PO (20:33)
[2021-01-22] MEDS ORDERED: CIPROFLOXACIN 500MG TABLET PO ONE (20:35)
--- NOTE | 2021-01-22 20:45 | ECGEPIP ---
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
[2021-01-22 21:00] VITALS: BP 141/64
[2021-01-23] MEDS ORDERED: AMIO200T3 PO (11:49)
[2021-01-23] MEDS ORDERED: XARE20TA PO (11:49)
[2021-01-23] MEDS ORDERED: METO50TA7 PO (11:49)
== END 2021-01-22 21:21 | disposition home or self-care (01) ==
LOC: M ED 11:33
DX: N39.0 Urinary tract infection, site not specified (principal); R00.0 Tachycardia, unspecified; R94.31 Abnormal electrocardiogram [ECG] [EKG]; I10 Essential (primary) hypertension; M08.00 Unspecified juvenile rheumatoid arthritis of unspecified site; K21.9 Gastro-esophageal reflux disease without esophagitis; M54.5 Low back pain; Z98.84 Bariatric surgery status; F41.9 Anxiety disorder, unspecified; Z88.1 Allergy status to other antibiotic agents; Z91.030 Bee allergy status; Z79.899 Other long term (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

== ENCOUNTER 2021-01-23 09:33 | Inpatient (IN) | payer BC, OTHER, MEDICARE ==
[~2021-01-23] VITALS: Ht 162.6 cm; Wt 91.3 kg
[~2021-01-23 09:33] MED LIST changes: +BACTDSTA PO; +CIPR-249 PO
--- NOTE | 2021-01-23 10:08 | REP ---
INDICATION: SEPSIS/SHOCK COMPARISON: 01/22/2021 TECHNIQUE: Portable AP view of the chest FINDINGS: The mediastinum and cardiac silhouette are stable and within normal limits for portable technique. The lung ching are clear without acute consolidation, effusion, or pneumothorax. Skeletal structures are intact. IMPRESSION: No acute cardiopulmonary process appreciated. <Electronically signed by [place] > 01/23/21 1002
[2021-01-23 10:43] LABS: BASO # 0.1 10^3/uL (0.0-0.2); BASO % 0.5 % (0.0-1.0); EOS % 0.1 % (0.0-3.0); HEMATOCRIT 37.4 % (36.0-47.0); HEMOGLOBIN 12.6 g/dl (12.0-15.5); LYMPH # 1.5 10^3/uL (1.5-5.0); LYMPH % 13.6 % (24.0-44.0); MEAN CORPUSCULAR HEMOGLOBIN 31.4 pg (27.0-33.0); MEAN CORPUSCULAR HGB CONC 33.7 g/dl (32.0-36.5); MEAN CORPUSCULAR VOLUME 93.3 fl (80.0-96.0); MONO # 0.6 10^3/uL (0.0-0.8); MONO % 5.8 % (2.0-8.0); NEUTROPHILS # 8.6 10^3/uL (1.5-8.5); NEUTROPHILS % 79.5 % (36.0-66.0); PLATELET COUNT, AUTOMATED 200 10^3/uL (150-450); RED BLOOD COUNT 4.01 10^6/uL (4.00-5.40); WHITE BLOOD COUNT 10.9 10^3/uL (4.0-10.0)
[2021-01-23] MEDS ORDERED: LevoFLOXacin IV 750 MG in IV 1 EA IV ONE (11:10)
[2021-01-23 11:24] LABS: ALBUMIN 3.1 GM/DL (3.2-5.2); ALT/SGPT 26 U/L (12-78); BILIRUBIN,DIRECT < 0.1 MG/DL (0.0-0.2); BILIRUBIN,TOTAL 0.8 MG/DL (0.2-1.0); BLOOD UREA NITROGEN 9 MG/DL (7-18); CALCIUM LEVEL 7.9 MG/DL (8.5-10.1); CARBON DIOXIDE LEVEL 29 MEQ/L (21-32); CHLORIDE LEVEL 103 MEQ/L (98-107); CK-MB VALUE MASS < 1.0 NG/ML (<3.6); CPK CREATINE PHOSPHOKINASE 111 U/L (26-192); CREATININE FOR GFR 0.92 MG/DL (0.55-1.30); GLOMERULAR FILTRATION RATE > 60.0 (>51); GLUCOSE, FASTING 133 MG/DL (70-100); POTASSIUM SERUM 4.3 MEQ/L (3.5-5.1); SODIUM LEVEL 136 MEQ/L (136-145); TOTAL PROTEIN 6.8 GM/DL (6.4-8.2); TROPONIN I < 0.02 NG/ML (< 0.10)
[2021-01-23] MEDS: NS 1,000 ML IV SCH ×2 (11:48→20:20)
[2021-01-23] MEDS ORDERED: XARE20TA PO (11:49)
[2021-01-23] MEDS ORDERED: AMIO200T3 PO (11:49)
[2021-01-23] MEDS ORDERED: METO50TA7 PO (11:49)
[2021-01-23] MEDS ORDERED: HOME MED LIST COMPLETE! XX SCH (11:55)
[2021-01-23] MEDS ORDERED: LOMOTIL 2.5MG/0.025MG TABLET PO PRN (13:30)
[2021-01-23] MEDS ORDERED: PERCOCET 5MG/325MG TAB PO PRN (13:30)
[2021-01-23] MEDS ORDERED: KETOROLAC 30 MG/ML 1ML VIAL IV PRN (13:30)
[2021-01-23] MEDS ORDERED: DICYCLOMINE 10 MG CAP PO PRN (13:30)
--- NOTE | 2021-01-23 13:49 | HPEPDOC ---
General Date of Admission 01/23/2021 Date of Service: Jan 23, 2021 Chief Complaint The patient is a 55-year-old female admitted with a reason for visit of Abnormal Labs. 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 tach in 2019 with placement of ICD, hypertension, fibromyalgia, recently had shingles in the left breast from 12/07/20 complicated by secondary bacterial cellulitis and treated with Bactrim x 2 weeks, has been off methotrexate and Orencia since the shingles started presented to the emergency room on 01/22/2021 for fever and confusion. Patient was febrile to 102 her UA was very dirty so she was diagnosed with an UTI and she was discharged home from the emergency room with a prescription for ciprofloxacin. She got 1 dose of cipro in [facility] ED yesterday. She was called back today as her blood cultures from yesterday were growing gram-negative rods. Hospitalist was consulted for admission for gram-negative bacteremia due to UTI. Today she complains of constant severe joint pains in the hips, knees, back, shoulders and generalized muscle soreness rates it 8/10 dull aching in nature interfering with mobility. She does not have any dysuria, reports that she does not have any bladder sensation due to neurogenic bladder. Home Medications Scheduled Abatacept (Orencia) 125 Mg/1 Ml Syringe, 125 MG SC QWEEK, (Reported) SUNDAYS- CURRENTLY ON HOLD Amiodarone HCl (Amiodarone HCl) 200 Mg Tablet, 200 MG PO DAILY, (Reported) Amitriptyline HCl (Amitriptyline HCl) 50 Mg Tablet, 50 MG PO QHS, (Reported) Atorvastatin Calcium (Atorvastatin Calcium) 40 Mg Tablet, 40 MG PO QHS, (Reported) Cevimeline HCl (Cevimeline HCl) 30 Mg Capsule, 30 MG PO BID, (Reported) Eluxadoline (Viberzi) 75 Mg Tablet, 75 MG PO QHS, (Reported) Hyoscyamine Sulfate (Hyoscyamine Sulfate ER) 0.375 Mg Tab.er.12h, 0.375 MG PO BID, (Reported) Leucovorin Calcium (Leucovorin Calcium) 5 Mg Tablet, 5 MG PO QWEEK, (Reported) THURSDAYS - CURRENTLY ON HOLD Losartan Potassium (Losartan Potassium) 100 Mg Tablet, 100 MG PO DAILY, (Reported) Methotrexate Sodium (Methotrexate) 2.5 Mg Tablet, 20 MG PO QWEEK, (Reported) THURSDAY EVENINGS - CURRENTLY ON HOLD Metoprolol Tartrate (Metoprolol Tartrate) 50 Mg Tablet, 50 MG PO BID, (Reported) Multivitamins (Thera M Plus Tablet) 1 Each Tablet, 1 TAB PO DAILY, (Reported) [place]-3 Fatty Acids/Fish Oil (Fish Oil 1,000 mg Capsule) 1 Each Capsule, 1,000 MG PO BID, (Reported) Rivaroxaban (Xarelto) 20 Mg Tablet, 20 MG PO DAILY, (Reported) Spironolactone (Spironolactone) 25 Mg Tablet, 25 MG PO DAILY, (Reported) Tamsulosin HCl (Flomax) 0.4 Mg Capsule, 0.4 MG PO QHS, (Reported) Venlafaxine HCl (Venlafaxine HCl ER) 75 Mg Cap.er.24h, 75 MG PO DAILY, (Report ed) TAKES WITH 150MG FOR 225MG TOTAL Venlafaxine HCl (Venlafaxine HCl ER) 150 Mg Cap.er.24h, 150 MG PO DAILY, (Reported) TAKES WITH 75MG FOR 225MG TOTAL Scheduled PRN Acetaminophen (Tylenol Arthritis) 650 Mg Tablet.er, 1,300 MG PO BID PRN for PAIN, (Reported) Clonazepam (Clonazepam) 2 Mg Tablet, 2 MG PO QHS PRN for SLEEP, (Reported) Clonazepam (Clonazepam) 1 Mg Tab.rapdis, 1 MG PO BID PRN for ANXIETY, (Reported) Cyclobenzaprine HCl (Cyclobenzaprine HCl) 10 Mg Tablet, 10 MG PO TID PRN for MUSCLE SPASMS, (Reported) Dicyclomine HCl (Dicyclomine HCl) 10 Mg Capsule, 10 MG PO TID PRN for ABDOMINAL PAIN, (Reported) Diphenoxylate HCl/Atropine (Lomotil 2.5-0.025 mg Tablet) 1 Each Tablet, 1 TAB PO QID PRN for DIARRHEA, (Reported) Epinephrine (Epipen 2-Christian) 0.3 Mg/0.3 Ml Auto.injct, 0.3 MG IM ASDIRECTED PRN for ANAPHYLAXIS, (Reported) Hydrocodone/Acetaminophen (Hydrocodone-Acetamin 7.5-325) 1 Each Tablet, 1 TAB PO Q8H PRN for PAIN, (Reported) Nystatin (Nystatin) 15 Gm Cream..g., 1 APLCT TOP BID PRN for RASH/ITCHING, (Reported) APPLY TO ABDOMINAL FOLDS Allergies Coded Allergies: bee venom protein (honey bee) (Verified Allergy, Severe, PALPITATIONS, SWELLING, DYSPNEA, 08/07/20) amoxicillin (Verified Allergy, Intermediate, rash, 08/07/20) erythromycin base (Verified Allergy, Unknown, 08/07/20) Past Medical History Medical History Shingles left breast complicated by secondary cellulitis and bacterial infection with MSSA in December 2020 was on Bactrim Paroxysmal atrial fibrillation diagnosed when her AICD discharged in August 2020 chronic urinary retention used to self catheterize however has difficulty in doing it due to rectocele Recurrent UTI Rectocele HTN. RA. IBS. Sjogrens. anxiety. GERD. Fibromyalgia. Ovarian cysts. Chronic back pain. Surgical History ICD implanted in 2019. R shoulder replacement. R knee ACL repair. Spinal fusion L5-S2. Back surgery in 2 3 Gastric bypass 2007. Trial dorsal column stimulator in 2013. HYSTERECTOMY, PARTIAL; OVARIES INTACT 1998 TONSILS/ADENOIDS D&CS X 2 BREAST REDUCTION TVT 2007 CYSTO Family History Mother has hx of CKD, CAD, and HTN. Father has hx of lung CA and hyperlipidemia Social History * Smoker: Denies Alcohol: Denies Drugs: denies A-FIB/CHADSVASC A-FIB History Current/History of A-Fib/PAF?: Yes Current PO Anticoag Therapy: Yes Review of Systems Constitutional: Reports: Chills, Fever Eyes: Denies: Pain, Vision change ENT: Denies: Head Aches, Ear Pain, Dysphagia Skin: Reports: Rash Pulmonary: Denies: Dyspnea, Cough Cardiovascular: Denies: Chest Pain, Palpitations, Orthopnea, Paroxysmal Noc. Dyspnea, Lt Headedness Gastrointestinal: Reports: Diarrhea; Denies: Nausea, Vomiting, Abdominal Pain Genitourinary: Reports: Retention; Denies: Dysuria, Frequency, Incontinence Hematologic: Denies: Bruising, Bleeding Excessively Musculoskeletal: Reports: Neck Pain, Back Pain, Joint Pain, Muscle Pain, Spasms Neurological: Denies: Weakness, Numbness, Change in speech, Confusion Psych: Reports: Anxiety, Depression; Denies: Memory Issues Physical Examination General Exam: Positive: Alert, Cooperative, No Acute Distress Eye Exam: Positive: PERRLA, Conjunctiva & lids normal, EOMI; Negative: Sclera icteric ENT Exam: Positive: Atraumatic, Mucous membr. moist/pink, Pharynx Normal Neck Exam: Positive: Supple; Negative: JVD, thyromegaly Chest Exam: Positive: Clear to auscultation, Normal air movement Heart Exam: Positive: Rate Normal, Regular Rhythm, Normal S1, Normal S2; Negative: Murmurs, Rubs Abdomen Exam: Positive: Normal bowel sounds, Soft; Negative: Tenderness Extremity Exam: Negative: Clubbing, Cyanosis, Edema Skin Exam: Positive: Rash (dried rash on left breast) Vital Signs Vital Signs Date Time Temp Pulse Resp B/P (MAP) Pulse Ox O2 Delivery O2 Flow Rate FiO2 01/23/21 10:30 101 127/66 (86) 97 Room Air 01/23/21 09:33 99.0 20 Laboratory Data Labs 24H Laboratory Tests 2 01/23/21 09:49: Immature Granulocyte % (Auto) 0.5, Neutrophils (%) (Auto) 79.5H, Lymphocytes (%) (Auto) 13.6L, Monocytes (%) (Auto) 5.8, Eosinophils (%) (Auto) 0.1, Basophils (%) (Auto) 0.5, Neutrophils # (Auto) 8.6H, Lymphocytes # (Auto) 1.5, Monocytes # (Auto) 0.6, Eosinophils # (Auto) 0.0, Basophils # (Auto) 0.1, Nucleated Red Blood Cells % (auto) 0.0, Anion Gap 4L, Glomerular Filtration Rate > 60.0, Lactic Acid Level 1.4, Calcium Level 7.9L, Total Bilirubin 0.8, Direct Bilirubin < 0.1, Aspartate Amino Transf (AST/SGOT) 39H, Alanine Aminotransferase (ALT/SGPT) 26, Alkaline Phosphatase 64, Total Creatine Kinase 111, Creatine Kinase MB < 1.0, Creatine Kinase MB Relative Index 0.90, Troponin I < 0.02, To yovani Protein 6.8, Albumin 3.1L, Albumin/Globulin Ratio 0.8L CBC/BMP Laboratory Tests 01/23/21 09:49 Microbiology Microbiology 01/23/21 Blood Culture, Received Pending 01/23/21 Blood Culture, Received Pending Assessment/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 tach in 2019 with placement of ICD, hypertension, fibromyalgia, recently had shingles in the left breast from 12/07/20 complicated by secondary bacterial cellulitis and treated with Bactrim x 2 weeks, has been off methotrexate and Orencia since the shingles started presented to the emergency room on 01/22/2021 for fever and confusion. Patient was febrile to 102 her UA was very dirty so she was diagnosed with an UTI and she was discharged home from the emergency room with a prescription for ciprofloxacin. She got 1 dose of cipro in [facility] ED yesterday. She was called back today as her blood cultures from yesterday were growing gram-negative rods. Hospitalist was consulted for admission for gram-negative bacteremia due to UTI. UTI with gram-negative bacteremia Urine cultures 01/22 gram negative rods Blood cultures from 01/22/2021 + for gram-negative rods We will start the patient on ceftriaxone Neurogenic bladder Patient has history of chronic urinary retention Patient self catheterizes We will get bladder scan every 8 hours and placement of Mao if there is urinary retention. Continue Flomax Hypertension Continue metoprolol, losartan. Will hold diuretic Paroxysmal atrial fibrillation planned for an ablation. Continue amiodarone, metoprolol Continue Xarelto Juvenile rheumatoid arthritis, Sjogren's with chronic pain We will continue home pain medications. Continue amitriptyline, cyclobenzaprine, acetaminophen, [place] Anxiety, insomnia, depression Continue venlafaxine, clonazepam Hyperlipidemia Continue statin IBS with diarrhea On Viberzi Symptomatic management with home meds lomotil and hyoscyamine Plan / VTE VTE Prophylaxis Ordered?: Yes Chantal Charles MD Jan 23, 2021 12:40
[2021-01-23] MEDS: AMIODARONE 200 MG TAB (PACERONE) PO SCH (14:18)
[2021-01-23] MEDS: VENLAFAXINE **XR** 75MG CAPSULE PO SCH (14:19)
[2021-01-23] MEDS: LOSARTAN 50MG TABLET PO SCH (14:19)
[2021-01-23 14:54] VITALS: BP 112/77
[2021-01-23] MEDS ORDERED: cefTRIAXone SOD 1 GM in D5W MINI-BAG PLUS 50 ML IV SCH (15:00)
[2021-01-23] MEDS: HYOSCYAMINE SULFATE 0.125 MG SUBL TABLET SL SCH ×2 (15:35→20:20)
[2021-01-23] MEDS: RIVAROXABAN 20 MG TAB (XARELTO) PO SCH (18:35)
[2021-01-23 20:03] VITALS: BP 101/53
[2021-01-23] MEDS: ACETAMINOPHEN TAB 650MG DOSE (2X325MG) PO PRN (20:20)
[2021-01-23] MEDS: TAMSULOSIN 0.4 MG CAP PO SCH (20:20)
[2021-01-23] MEDS: ATORVASTATIN 20 MG TAB PO SCH (20:20)
[2021-01-23] MEDS: AMITRIPTYLINE 50 MG TAB PO SCH (20:21)
[2021-01-23] MEDS: METOPROLOL TART 50 MG TAB PO SCH (20:21)
[2021-01-23] MEDS: clonazePAM 1 MG TAB PO PRN (20:31)
[2021-01-24] MEDS: NS 1,000 ML IV SCH ×3 (03:07→17:22)
[2021-01-24 06:00] VITALS: BP 114/65
[2021-01-24 06:31] LABS: BASO % 0.4 % (0.0-1.0); EOS % 0.7 % (0.0-3.0); HEMATOCRIT 31.3 % (36.0-47.0); HEMOGLOBIN 10.7 g/dl (12.0-15.5); LYMPH # 0.8 10^3/uL (1.5-5.0); LYMPH % 14.3 % (24.0-44.0); MEAN CORPUSCULAR HEMOGLOBIN 31.8 pg (27.0-33.0); MEAN CORPUSCULAR HGB CONC 34.2 g/dl (32.0-36.5); MEAN CORPUSCULAR VOLUME 93.2 fl (80.0-96.0); MONO # 0.4 10^3/uL (0.0-0.8); MONO % 8.2 % (2.0-8.0); NEUTROPHILS # 4.1 10^3/uL (1.5-8.5); NEUTROPHILS % 75.7 % (36.0-66.0); PLATELET COUNT, AUTOMATED 164 10^3/uL (150-450); RED BLOOD COUNT 3.36 10^6/uL (4.00-5.40); WHITE BLOOD COUNT 5.4 10^3/uL (4.0-10.0)
[2021-01-24 06:54] LABS: BLOOD UREA NITROGEN 9 MG/DL (7-18); CALCIUM LEVEL 7.6 MG/DL (8.5-10.1); CARBON DIOXIDE LEVEL 26 MEQ/L (21-32); CHLORIDE LEVEL 107 MEQ/L (98-107); CREATININE FOR GFR 0.65 MG/DL (0.55-1.30); GLOMERULAR FILTRATION RATE > 60.0 (>51); GLUCOSE, FASTING 135 MG/DL (70-100); POTASSIUM SERUM 3.2 MEQ/L (3.5-5.1); SODIUM LEVEL 140 MEQ/L (136-145)
[2021-01-24] MEDS: cefTRIAXone SOD 1 GM in D5W MINI-BAG PLUS 50 ML IV SCH (08:23)
[2021-01-24] MEDS: LOSARTAN 50MG TABLET PO SCH (08:24)
[2021-01-24] MEDS: AMIODARONE 200 MG TAB (PACERONE) PO SCH (08:24)
[2021-01-24] MEDS: VENLAFAXINE **XR** 75MG CAPSULE PO SCH (08:25)
[2021-01-24] MEDS: METOPROLOL TART 50 MG TAB PO SCH ×2 (08:25→20:24)
[2021-01-24] MEDS: HYOSCYAMINE SULFATE 0.125 MG SUBL TABLET SL SCH ×3 (08:39→20:24)
[2021-01-24] MEDS ORDERED: VENLAFAXINE **XR** 75MG CAPSULE PO SCH (09:00)
--- NOTE | 2021-01-24 09:21 | IPNPDOC ---
Subjective Date Seen The patient was seen on 01/24/21. Subjective Chief Complaint/HPI Feels tired and exhausted, No fever or chills, no urinary symptoms. Objective Physical Examination General Exam: Positive: Alert, Cooperative, No Acute Distress Eye Exam: Positive: PERRLA, Conjunctiva & lids normal, EOMI; Negative: Sclera icteric ENT Exam: Positive: Atraumatic, Mucous membr. 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 tach in 2019 with placement of ICD, hypertension, fibromyalgia, recently had shingles in the left breast from 12/07/20 complicated by secondary bacterial cellulitis and treated with Bactrim x 2 weeks, has been off methotrexate and Orencia since the shingles started presented to the emergency room on 01/22/2021 for fever and confusion. Patient was febrile to 102 her UA was very dirty so she was diagnosed with an UTI and she was discharged home from the emergency room with a prescription for ciprofloxacin. She got 1 dose of cipro in [facility] ED yesterday. She was called back today as her blood cultures from yesterday were growing gram-negative rods. Hospitalist was cons ulted for admission for gram-negative bacteremia due to UTI. UTI with gram-negative bacteremia Urine cultures 01/22 Ecoli Blood cultures from 01/22/2021 + for gram-negative rods Continue ceftriaxone Neurogenic bladder Patient has history of chronic urinary retention Patient self catheterizes We will get bladder scan every 8 hours and straight cath prn. Continue Flomax Hypertension Continue metoprolol, losartan. Will hold diuretic Paroxysmal atrial fibrillation planned for an ablation. Continue amiodarone, metoprolol Continue Xarelto Juvenile rheumatoid arthritis, Sjogren's with chronic pain We will continue home pain medications. Continue amitriptyline, cyclobenzaprine, acetaminophen, percocet, will give toradol prn. Anxiety, insomnia, depression Continue venlafaxine, clonazepam Hyperlipidemia Continue statin IBS with diarrhea On Viberzi Symptomatic management with home meds lomotil and hyoscyamine Plan/VTE VTE Prophylaxis Ordered?: Yes VS, I&O, 24H, Fishbone Vital Signs/I&O Vital Signs Date Time Temp Pulse Resp B/P (MAP) Pulse Ox O2 Delivery O2 Flow Rate FiO2 01/24/21 08:25 94 112/62 01/24/21 06:00 98.6 17 96 Room Air I&O- Last 24 Hours up to 6 AM0 01/24/21 06:00 Intake Total 2845 ml Output Total 850 ml Balance 1995 ml Laboratory Data 24H LABS Laboratory Tests 2 01/23/21 09:49: Immature Granulocyte % (Auto) 0.5, Neutrophils (%) (Auto) 79.5H, Lymphocytes (%) (Auto) 13.6L, Monocytes (%) (Auto) 5.8, Eosinophils (%) (Auto) 0.1, Basophils (%) (Auto) 0.5, Neutrophils # (Auto) 8.6H, Lymphocytes # (Auto) 1.5, Monocytes # (Auto) 0.6, Eosinophils # (Auto) 0.0, Basophils # (Auto) 0.1, Nucleated Red Blood Cells % (auto) 0.0, Anion Gap 4L, Glomerular Filtration Rate > 60.0, Lactic Acid Level 1.4, Calcium Level 7.9L, Total Bilirubin 0.8, Direct Bilirubin < 0.1, Aspartate Amino Transf (AST/SGOT) 39H, Alanine Aminotransferase (ALT/SGPT) 26, Alkaline Phosphatase 64, Total Creatine Kinase 111, Creatine Kinase MB < 1.0, Creatine Kinase MB Relative Index 0.90, Troponin I < 0.02, Total Protein 6.8, Albumin 3.1L, Albumin/Globulin Ratio 0.8L 01/23/21 20:53: Lactic Acid Level 1.4 01/24/21 06:05: Immature Granulocyte % (Auto) 0.7, Neutrophils (%) (Auto) 75.7H, Lymphocytes (%) (Auto) 14.3L, Monocytes (%) (Auto) 8.2H, Eosinophils (%) (Auto) 0.7, Basophils (%) (Auto) 0.4, Neutrophils # (Auto) 4.1, Lymphocytes # (Auto) 0.8L, Monocytes # (Auto) 0.4, Eosinophils # (Auto) 0.0, Basophils # (Auto) 0.0, Nucleated Red Blood Cells % (auto) 0.0, Anion Gap 7L, Glomerular Filtration Rate > 60.0, Calcium Level 7.6L CBC/BMP Laboratory Tests 01/23/21 09:49 01/24/21 06:05 Microbiology Microbiology 01/23/21 Blood Culture, Received Pending 01/23/21 Blood Culture, Received Pending Chantal Charles MD Jan 24, 2021 09:21
[2021-01-24 14:00] VITALS: BP 115/64
[2021-01-24] MEDS: RIVAROXABAN 20 MG TAB (XARELTO) PO SCH (17:22)
--- NOTE | 2021-01-24 18:42 | ECGEPIP ---
[facility] - ED Test Date: 2021-01-23 Pat Name: MEG CARDOZA Department: Room: - Gender: Female Card Folder: LR : 1965 Requested By: LORENE Martinez Order Number: [id number] Reading MD: Alma Barrera Measurements Intervals [place] Rate: 102 P: -6 [place]: 200 QRS: 11 QRSD: 136 T: 5 QT: 334 QTc: 435 Interpretive Statements Sinus tachycardia Right bundle branch block NSTTW abnormalities shorter qtc compared 01/22/21 Electronically Signed on 01-24-2021 18:42:29 EDT by Alma Barrera
[2021-01-24 20:00] VITALS: BP 114/65
[2021-01-24] MEDS: ACETAMINOPHEN TAB 650MG DOSE (2X325MG) PO PRN (20:23)
[2021-01-24] MEDS: AMITRIPTYLINE 50 MG TAB PO SCH (20:24)
[2021-01-24] MEDS: clonazePAM 1 MG TAB PO PRN (20:24)
[2021-01-24] MEDS: TAMSULOSIN 0.4 MG CAP PO SCH (20:24)
[2021-01-24] MEDS: ATORVASTATIN 20 MG TAB PO SCH (20:24)
[2021-01-25] MEDS: NS 1,000 ML IV SCH ×2 (00:04→05:59)
[2021-01-25 06:00] VITALS: BP 137/77
[2021-01-25 06:59] LABS: BASO % 0.8 % (0.0-1.0); EOS # 0.2 10^3/uL (0.0-0.5); HEMATOCRIT 33.8 % (36.0-47.0); HEMOGLOBIN 11.3 g/dl (12.0-15.5); LYMPH # 1.3 10^3/uL (1.5-5.0); LYMPH % 33.7 % (24.0-44.0); MEAN CORPUSCULAR HEMOGLOBIN 31.3 pg (27.0-33.0); MEAN CORPUSCULAR HGB CONC 33.4 g/dl (32.0-36.5); MEAN CORPUSCULAR VOLUME 93.6 fl (80.0-96.0); MONO # 0.4 10^3/uL (0.0-0.8); MONO % 10.1 % (2.0-8.0); NEUTROPHILS # 1.9 10^3/uL (1.5-8.5); NEUTROPHILS % 51.1 % (36.0-66.0); PLATELET COUNT, AUTOMATED 177 10^3/uL (150-450); RED BLOOD COUNT 3.61 10^6/uL (4.00-5.40); WHITE BLOOD COUNT 3.8 10^3/uL (4.0-10.0)
[2021-01-25 07:30] LABS: BLOOD UREA NITROGEN 9 MG/DL (7-18); CREATININE FOR GFR 0.71 MG/DL (0.55-1.30); GLUCOSE, FASTING 137 MG/DL (70-100)
[2021-01-25 07:31] LABS: CALCIUM LEVEL 7.8 MG/DL (8.5-10.1); CARBON DIOXIDE LEVEL 26 MEQ/L (21-32); CHLORIDE LEVEL 113 MEQ/L (98-107); GLOMERULAR FILTRATION RATE > 60.0 (>51); POTASSIUM SERUM 3.5 MEQ/L (3.5-5.1); SODIUM LEVEL 145 MEQ/L (136-145)
[2021-01-25] MEDS ORDERED: LEVO750T13 PO (07:48)
[2021-01-25] MEDS: HYOSCYAMINE SULFATE 0.125 MG SUBL TABLET SL SCH (08:24)
[2021-01-25] MEDS: VENLAFAXINE **XR** 75MG CAPSULE PO SCH (08:24)
[2021-01-25] MEDS: cefTRIAXone SOD 1 GM in D5W MINI-BAG PLUS 50 ML IV SCH (08:24)
[2021-01-25 08:27] VITALS: BP 140/75
[2021-01-25] MEDS: AMIODARONE 200 MG TAB (PACERONE) PO SCH (08:27)
[2021-01-25] MEDS: LOSARTAN 50MG TABLET PO SCH (08:27)
[2021-01-25] MEDS: METOPROLOL TART 50 MG TAB PO SCH (08:28)
--- NOTE | 2021-01-25 09:59 | DS.PDOC ---
Discharge Summary General Date of Admission Jan 23, 2021 at 13:27 Date of Discharge 01/25/21 Discharge Summary PROCEDURES PERFORMED DURING STAY: [None]. DISCHARGE DIAGNOSES: E. coli UTI Gram-negative bacteremia with E coli Secondary diagnosis: Juvenile rheumatoid arthritis from the age of 8 years on immunomodulator, Sjogren's, Neurogenic bladder due to multiple back surgeries with intermittent self- catheterization usually once at night, history of V. tach in 2019 with placement of ICD, Paroxysmal A. fib hypertension, fibromyalgia, IBS with diarrhea, Anxiety, insomnia, depression, HLD Rectocele HTN. GERD Chronic musculoskeletal pain on opiates Spinal fusion L5-S2. S/p back surgery Dorsal column stimulator in 2013. R shoulder replacement. R knee ACL repair. History of morbid obesity s/p gastric bypass 2007. BREAST REDUCTION CYSTO Shingles left breast complicated by secondary cellulitis and bacterial infection with MSSA in December 2020 was on Bactrim Recurrent UTIs COMPLICATIONS/CHIEF COMPLAINT: Bacteremia, Uti. 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 tach in 2019 with placement of ICD, hypertension, fibromyalgia, recently had shingles in the left breast from 12/07/20 complicated by secondary bacterial cellulitis and treated with Sumaya trim x 2 weeks, has been off methotrexate and Orencia since the shingles started presented to the emergency room on 01/22/2021 for fever and confusion. Patient was febrile to 102 her UA was very dirty so she was diagnosed with an UTI and she was discharged home from the emergency room with a prescription for ciprofloxacin. She got 1 dose of cipro in [facility] ED yesterday. She was called back today as her blood cultures from yesterday were growing gram-negative rods. Hospitalist was consulted for admission for gram-negative bacteremia due to UTI. UTI with gram-negative bacteremia Urine cultures 01/22 Ecoli Blood cultures from 01/22/2021 1/2 sets growing E coli. Cultures form 01/23/21 negative. Recieved 3 doses of ceftriaxone i hospital . Will discharge with levofloxacin x 4 days Neurogenic bladder Patient has history of chronic urinary retention Patient self catheterizes Continue Flomax Hypertension Continue metoprolol, losartan Paroxysmal atrial fibrillation planned for an ablation. Continue amiodarone, metoprolol Continue Xarelto Juvenile rheumatoid arthritis, Sjogren's with chronic pain We will continue home pain medications. Continue amitriptyline, cyclobenzaprine, acetaminophen, [place]. Anxiety, insomnia, depression Continue venlafaxine, clonazepam Hyperlipidemia Continue statin IBS with diarrhea On Viberzi Symptomatic management with home meds lomotil and hyoscyamine DISCHARGE MEDICATIONS: Please see below. ALLERGIES: Please see below. PHYSICAL EXAMINATION ON DISCHARGE: VITAL SIGNS: Please see below. General Exam: Positive: Alert, Cooperative, No Acute Distress Eye Exam: Positive: PERRLA, Conjunctiva & lids normal, EOMI; Negative: Sclera icteric ENT Exam: Positive: Atraumatic, Mucous membr. moist/pink, Pharynx Normal Neck Exam: Positive: Supple; Negative: JVD, thyromegaly Chest Exam: Positive: Clear to auscultation, Normal air movement Heart Exam: Positive: Rate Normal, Regular Rhythm, Normal S1, Normal S2; Negative: Murmurs, Rubs Abdomen Exam: Positive: Normal bowel sounds, Soft; Negative: Tenderness Extremity Exam: Negative: Clubbing, Cyanosis, Edema Skin Exam: Positive: Rash (dried rash on left breast) LABORATORY DATA: Please see below. ACTIVITY: [As tolerated]. DIET: As tolerated DISCHARGE PLAN: Home DISCHARGE INSTRUCTIONS: Follow-up PMD in 1 week ITEMS TO FOLLOWUP ON ON OUTPATIENT: Final blood cultures DISCHARGE CONDITION: [Stable]. TIME SPENT ON DISCHARGE: 35 minutes. Vital Signs/I&Os Vital Signs Date Time Temp Pulse Resp B/P (MAP) Pulse Ox O2 Delivery O2 Flow Rate FiO2 01/25/21 08:28 73 01/25/21 08:27 140/75 01/25/21 06:00 97.4 20 94 Room Air I&O- Last 24 Hours up to 6 AM 01/25/21 06:00 Intake Total 4690 ml Output Total 3025 ml Balance 1665 ml Laboratory Data Labs 24H Laboratory Tests 2 01/25/21 06:22: Immature Granulocyte % (Auto) 0.3, Neutrophils (%) (Auto) 51.1, Lymphocytes (%) (Auto) 33.7, Monocytes (%) (Auto) 10.1H, Eosinophils (%) (Auto) 4.0H, Basophils (%) (Auto) 0.8, Neutrophils # (Auto) 1.9, Lymphocytes # (Auto) 1.3L, Monocytes # (Auto) 0.4, Eosinophils # (Auto) 0.2, Basophils # (Auto) 0.0, Nucleated Red Blood Cells % (auto) 0.0, Anion Gap 6L, Glomerular Filtration Rate > 60.0, Calcium Level 7.8L CBC/BMP Laboratory Tests 01/25/21 06:22 Microbiology Microbiology 01/23/21 Blood Culture - Preliminary, Resulted No growth after 24 hours . All specim... 01/23/21 Blood Culture - Preliminary, Resulted No growth after 24 hours . All specim... Discharge Medications Scheduled Abatacept (Orencia) 125 Mg/1 Ml Syringe, 125 MG SC QWEEK, (Reported) SUNDAYS- CURRENTLY ON HOLD Amiodarone HCl (Amiodarone HCl) 200 Mg Tablet, 200 MG PO DAILY, (Reported) Amitriptyline HCl (Amitriptyline HCl) 50 Mg Tablet, 50 MG PO QHS, (Reported) Atorvastatin Calcium (Atorvastatin Calcium) 40 Mg Tablet, 40 MG PO QHS, (Rep orted) Cevimeline HCl (Cevimeline HCl) 30 Mg Capsule, 30 MG PO BID, (Reported) Eluxadoline (Viberzi) 75 Mg Tablet, 75 MG PO QHS, (Reported) Hyoscyamine Sulfate (Hyoscyamine Sulfate ER) 0.375 Mg Tab.er.12h, 0.375 MG PO BID, (Reported) Leucovorin Calcium (Leucovorin Calcium) 5 Mg Tablet, 5 MG PO QWEEK, (Reported) THURSDAYS - CURRENTLY ON HOLD Levofloxacin (Levofloxacin) 750 Mg Tablet, 1 TAB PO DAILY Losartan Potassium (Losartan Potassium) 100 Mg Tablet, 100 MG PO DAILY, (Reported) Methotrexate Sodium (Methotrexate) 2.5 Mg Tablet, 20 MG PO QWEEK, (Reported) THURSDAY EVENING - CURRENTLY ON HOLD Metoprolol Tartrate (Metoprolol Tartrate) 50 Mg Tablet, 50 MG PO BID, (Reported) Multivitamins (Thera M Plus Tablet) 1 Each Tablet, 1 TAB PO DAILY, (Reported) [place]-3 Fatty Acids/Fish Oil (Fish Oil 1,000 mg Capsule) 1 Each Capsule, 1,000 MG PO BID, (Reported) Rivaroxaban (Xarelto) 20 Mg Tablet, 20 MG PO DAILY, (Reported) Spironolactone (Spironolactone) 25 Mg Tablet, 25 MG PO DAILY, (Reported) Tamsulosin HCl (Flomax) 0.4 Mg Capsule, 0.4 MG PO QHS, (Reported) Venlafaxine HCl (Venlafaxine HCl ER) 75 Mg Cap.er.24h, 75 MG PO DAILY, (Reported) TAKES WITH 150MG FOR 225MG TOTAL Venlafaxine HCl (Venlafaxine HCl ER) 150 Mg Cap.er.24h, 150 MG PO DAILY, (Reported) TAKES WITH 75MG FOR 225MG TOTAL Scheduled PRN Acetaminophen (Tylenol Arthritis) 650 Mg Tablet.er, 1,300 MG PO BID PRN for PAIN, (Reported) Clonazepam (Clonazepam) 2 Mg Tablet, 2 MG PO QHS PRN for SLEEP, (Reported) Clonazepam (Clonazepam) 1 Mg Tab.rapdis, 1 MG PO BID PRN for ANXIETY, (Reported) Cyclobenzaprine HCl (Cyclobenzaprine HCl) 10 Mg Tablet, 10 MG PO TID PRN for MUSCLE SPASMS, (Reported) Dicyclomine HCl (Dicyclomine HCl) 10 Mg Capsule, 10 MG PO TID PRN for ABDOMINAL PAIN, (Reported) Diphenoxylate HCl/Atropine (Lomotil 2.5-0.025 mg Tablet) 1 Each Tablet, 1 TAB PO QID PRN for DIARRHEA, (Reported) Epinephrine (Epipen 2-Christian) 0.3 Mg/0.3 Ml Auto.injct, 0.3 MG IM ASDIRECTED PRN for ANAPHYLAXIS, (Reported) Hydrocodone/Acetaminophen (Hydrocodone-Acetamin 7.5-325) 1 Each Tablet, 1 TAB PO Q8H PRN for PAIN, (Reported) Nystatin (Nystatin) 15 Gm Cream..g., 1 APLCT TOP BID PRN for RASH/ITCHING, (Reported) APPLY TO ABDOMINAL FOLDS Allergies Coded Allergies: bee venom protein (honey bee) (Verified Allergy, Severe, PALPITATIONS, SWELLING, DYSPNEA, 08/07/20) amoxicillin (Verified Allergy, Intermediate, rash, 08/07/20) erythromycin base (Verified Allergy, Unknown, 08/07/20) Chantal Charles MD Jan 25, 2021 09:58
== END 2021-01-25 11:10 | disposition home or self-care (01) | DRG 463 ==
LOC: M ED 09:33 → M ED INP 13:27 → M MSPAV 14:55
PROVIDERS: ADMIT Internal Medicine Nephrology; ATTEND Internal Medicine Nephrology
DX: N39.0 Urinary tract infection, site not specified (principal); R78.81 Bacteremia; M35.00 Sjogren syndrome, unspecified; N31.9 Neuromuscular dysfunction of bladder, unspecified; I48.0 Paroxysmal atrial fibrillation; I10 Essential (primary) hypertension; B96.20 Unspecified Escherichia coli [E. coli] as the cause of diseases classified elsewhere; Z95.810 Presence of automatic (implantable) cardiac defibrillator; M79.7 Fibromyalgia; M08.90 Juvenile arthritis, unspecified, unspecified site; F41.9 Anxiety disorder, unspecified; G47.00 Insomnia, unspecified; F32.9 Major depressive disorder, single episode, unspecified; E78.5 Hyperlipidemia, unspecified; K58.9 Irritable bowel syndrome, unspecified; R33.9 Retention of urine, unspecified; K21.9 Gastro-esophageal reflux disease without esophagitis; M54.9 Dorsalgia, unspecified; Z96.611 Presence of right artificial shoulder joint; Z98.1 Arthrodesis status; Z98.84 Bariatric surgery status; Z79.899 Other long term (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; Z20.822 Contact with and (suspected) exposure to COVID-19; Z88.1 Allergy status to other antibiotic agents; Z88.8 Allergy status to other drugs, medicaments and biological substances; Z91.030 Bee allergy status

== ENCOUNTER 2021-02-24 13:10 | Outpatient (CLI) | payer BC, OTHER, MEDICARE ==
[~2021-02-24] VITALS: Ht 162.6 cm; Wt 85.7 kg
[~2021-02-24 13:10] MED LIST changes: +ACETAMINOPHEN TAB 650MG DOSE (2X325MG) PO ONE; +ALBUTEROL 90 MCG/ACT 8GM HFA INHALER INH PRN; +ALBUTEROL SULFATE 2.5 MG/0.5 ML INH NEB SOLN INH PRN; +AMIO200T3 PO; +CASIRIVIMAB/IMDEVIMAB 1,200 MG in NS 250 ML IV ONE; +EPINEPHrine INJ 1 MG/ML 1ML AMP IM PRN; +NS 1,000 ML IV SCH; +diphenhydrAMINE 25MG CAP PO ONE; +diphenhydrAMINE 50MG/ML VIAL (J1200) IV PRN; +methylPREDNISolone 125MG 2ML VIAL IV PRN
[2021-02-24 13:48] VITALS: BP 108/59
[2021-02-24 14:30] VITALS: BP 103/58
[2021-02-24 15:59] VITALS: BP 105/52
[2021-02-24] MEDS ORDERED: NITR100C2 PO (16:46)
[2021-02-24] MEDS ORDERED: ALBU8.5H INH (16:46)
[2021-02-24] MEDS ORDERED: BENZ200C70 PO (16:46)
== END 2021-02-24 16:00 | disposition other institution (70) ==
LOC: M OPCLI4PR 13:10 → M 4MAIN 13:12 → M OPCLI4PR 16:00
PROVIDERS: ATTEND Internal Medicine
DX: U07.1 COVID-19 (principal); Z88.1 Allergy status to other antibiotic agents

== ENCOUNTER 2021-02-24 15:23 | Inpatient (IN) | payer BC, OTHER, MEDICARE ==
[~2021-02-24] VITALS: Ht 162.6 cm; Wt 85.7 kg
[~2021-02-24 15:23] MED LIST changes: -ACETAMINOPHEN TAB 650MG DOSE (2X325MG) PO ONE; -ALBUTEROL 90 MCG/ACT 8GM HFA INHALER INH PRN; -ALBUTEROL SULFATE 2.5 MG/0.5 ML INH NEB SOLN INH PRN; -CASIRIVIMAB/IMDEVIMAB 1,200 MG in NS 250 ML IV ONE; -EPINEPHrine INJ 1 MG/ML 1ML AMP IM PRN; -NS 1,000 ML IV SCH; -diphenhydrAMINE 25MG CAP PO ONE; -diphenhydrAMINE 50MG/ML VIAL (J1200) IV PRN; -methylPREDNISolone 125MG 2ML VIAL IV PRN
[2021-02-24 16:00] VITALS: O2SAT 99
[2021-02-24 16:34] VITALS: BP 105/52
[2021-02-24] MEDS ORDERED: NITR100C2 PO (16:46)
[2021-02-24] MEDS ORDERED: ALBU8.5H INH (16:46)
[2021-02-24] MEDS ORDERED: BENZ200C70 PO (16:46)
[2021-02-24] MEDS ORDERED: HOME MED LIST COMPLETE! XX SCH (16:50)
[2021-02-24 17:30] LABS: BASO % 0.4 % (0.0-1.0); EOS # 0.1 10^3/uL (0.0-0.5); EOS % 1.3 % (0.0-3.0); HEMATOCRIT 37.2 % (36.0-47.0); HEMOGLOBIN 12.3 g/dl (12.0-15.5); LYMPH # 2.1 10^3/uL (1.5-5.0); MEAN CORPUSCULAR HEMOGLOBIN 30.8 pg (27.0-33.0); MEAN CORPUSCULAR HGB CONC 33.1 g/dl (32.0-36.5); MONO # 0.3 10^3/uL (0.0-0.8); MONO % 4.7 % (2.0-8.0); NEUTROPHILS # 4.5 10^3/uL (1.5-8.5); NEUTROPHILS % 64.3 % (36.0-66.0); PLATELET COUNT, AUTOMATED 117 10^3/uL (150-450); WHITE BLOOD COUNT 7.1 10^3/uL (4.0-10.0)
[2021-02-24] MEDS: dexameTHASONE 4 MG/ML 1ML VIAL (J1100 PER 1MG) IV SCH (17:39)
[2021-02-24 17:43] LABS: INR 1.01; PROTHROMBIN TIME 13.7 SECONDS (12.7-14.5)
[2021-02-24 17:44] LABS: PARTIAL THROMBOPLASTIN TIME 32.4 SECONDS (25.9-37.0)
[2021-02-24 17:46] LABS: D-DIMER QUANT 926.55 ng/ml (<500)
[2021-02-24 17:53] LABS: ALBUMIN 2.9 GM/DL (3.2-5.2); ALT/SGPT 20 U/L (12-78); BILIRUBIN,DIRECT 0.1 MG/DL (0.0-0.2); BILIRUBIN,TOTAL 0.3 MG/DL (0.2-1.0); BLOOD UREA NITROGEN 15 MG/DL (7-18); C REACTIVE PROTEIN QUANTITATIV 5.99 MG/DL (0.00-0.30); CALCIUM LEVEL 7.5 MG/DL (8.5-10.1); CARBON DIOXIDE LEVEL 32 MEQ/L (21-32); CHLORIDE LEVEL 105 MEQ/L (98-107); CPK CREATINE PHOSPHOKINASE 76 U/L (26-192); CREATININE FOR GFR 0.82 MG/DL (0.55-1.30); FERRITIN 71 NG/ML (8-252); GLOMERULAR FILTRATION RATE > 60.0 (>51); GLUCOSE, FASTING 97 MG/DL (70-100); LDH LACTATE DEHYDROGENASE 212 U/L (84-246); MAGNESIUM LEVEL 1.6 MG/DL (1.8-2.4); NT-PRO BNP 68 PG/ML (<125); POTASSIUM SERUM 3.1 MEQ/L (3.5-5.1); SODIUM LEVEL 141 MEQ/L (136-145); TOTAL PROTEIN 6.2 GM/DL (6.4-8.2); TROPONIN I < 0.02 NG/ML (< 0.10)
[2021-02-24] MEDS ORDERED: ACETAMINOPHEN 650MG ER TAB (TYLENOL ARTHRITIS) PO PRN (18:00)
[2021-02-24] MEDS ORDERED: clonazePAM 1 MG TAB PO PRN ×2 (18:00)
[2021-02-24] MEDS ORDERED: ANEXSIA, NORCO 7.5MG/325MG TABLET(HYDROCODONE/APAP) PO PRN (18:00)
[2021-02-24] MEDS ORDERED: CYCLOBENZAPRINE 10MG TABLET PO PRN (18:00)
[2021-02-24] MEDS ORDERED: DICYCLOMINE 10 MG CAP PO PRN (18:00)
[2021-02-24] MEDS ORDERED: LOMOTIL 2.5MG/0.025MG TABLET PO PRN (18:00)
[2021-02-24] MEDS ORDERED: NYSTATIN CREAM 15 GM TOP PRN (18:00)
[2021-02-24 18:05] LABS: APPEARANCE, URINE HAZY (CLEAR); BACTERIA, URINE AUTO NEGATIVE (NEGATIVE); BILIRUBIN, URINE AUTO NEGATIVE (NEGATIVE); BLOOD, URINE BLOOD NEGATIVE (NEGATIVE); COLOR, URINE YELLOW (YELLOW); GLUCOSE, URINE (UA) AUTO NEGATIVE (NEGATIVE); KETONE, URINE AUTO NEGATIVE (NEGATIVE); LEUKOCYTE ESTERASE, URINE AUTO 3+ (NEGATIVE); MUCUS, URINE SMALL (NEGATIVE); NITRITE, URINE AUTO NEGATIVE (NEGATIVE); PROTEIN, URINE AUTO 1+ mg/dL (NEGATIVE); RBC, URINE AUTO 6 /HPF (0-3); SPECIFIC GRAVITY URINE AUTO 1.019 (1.002-1.035); SQUAMOUS EPITHELIAL CELL UR AU 2 /HPF (0-6); UROBILINOGEN, URINE AUTO 0.2 mg/dL (0.0-2.0); WBC, URINE AUTO 42 /HPF (0-3)
--- NOTE | 2021-02-24 18:35 | REP ---
INDICATION: PNA, Covid +. COMPARISON: 01/23/2021 TECHNIQUE: Portable FINDINGS: The technique utilized in obtaining the radiograph has magnified the cardiac silhouette and accentuated the interstitial markings. The cardiomediastinal silhouette lung ching are unchanged. The single chamber bipolar pacemaker devices unchanged. The tip of a dorsal column stimulator is unchanged. IMPRESSION: No acute cardiopulmonary disease or significant change compared to the prior exam. <Electronically signed by Mak Subramanian > 02/24/21 [id number]
--- NOTE | 2021-02-24 18:37 | HPEPDOC ---
[facility] Medical History & Physical Date of Admission Feb 24, 2021 Date of Service: Feb 24, 2021 Primary Care Physician: RUSTY HADDAD DO Attending Physician: RAJINDER MANZANARES DO History and Physical CHIEF COMPLAINT: COVID positive, Shortness of breath, cough, hypoxia HISTORY OF PRESENT ILLNESS: The patient actually came to the hospital for outpatient administration of m onoclonal antibodies ordered by her primary care provider. She is positive for Covid, has been symptomatic for the past 3-4 days or so, and has multiple comorbidities, and did not at that time meet inpatient criteria. She purchased a pulse oximeter yesterday and was saturating 93% on room air yesterday and this morning, which is approximately the same as when she arrived to the hospital today. Her monoclonal antibodies infusion was started, and approximately 45-50 minutes into the treatment she began developing shortness of breath and was desaturating. She does not have any other new complaints. She does continue to have a deep rhonchorous sounding cough which is the same as it has been for the past few days. She is not lightheaded nor dizzy, she denies any throat swelling and vital signs are stable. There is no local reaction or rash at the infusion site either. I was called to admit the patient because she is now having acute decompensation with hypoxic respiratory failure requiring oxygen, and meets criteria for inpatient stay. While this may be a treatment reaction from the infusional monoclonal antibodies, there is no evidence of allergic reaction or anaphylaxis at this time. CODE STATUS: Full code PAST MEDICAL HISTORY: Paroxysmal atrial fibrillation diagnosed when her AICD discharged in August 2020 Presence of AICD Apparently she is scheduled for an ablation in March 2021 chronic urinary retention used to self catheterize however has difficulty in doing it due to rectocele Recurrent UTI Rectocele HTN. RA. IBS. Sjogrens. anxiety. GERD. Fibromyalgia. Ovarian cysts. Chronic back pain. Shingles left breast complicated by secondary cellulitis and bacterial infection with MSSA in December 2020 PAST SURGICAL HISTORY: ICD implanted in 2019. R shoulder replacement. R knee ACL repair. Spinal fusion L5-S2. Back surgery in 2 3 Gastric bypass 2007. Trial dorsal column stimulator in 2013. HYSTERECTOMY, PARTIAL; OVARIES INTACT 1998 TONSILS/ADENOIDS D&CS X 2 BREAST REDUCTION TVT 2007 CYSTO SOCIAL HISTORY: She does not smoke, drink alcohol, or do illicit drugs FAMILY HISTORY: Mother has history of chronic kidney disease, coronary artery disease, hypertension Father has history of lung cancer and hyperlipidemia REVIEW OF SYSTEMS: Constitutional: Patient has a low-grade fevers, denies chills, night sweats, recent weight gain/loss. HEENT: Patient denies blurred or double vision, transient visual disturbances, postnasal drip, epistaxis, sore throat, difficulty chewing or swallowing food. Cardiovascular: Patient denies chest discomfort/pain, palpitations, orthopnea, edema of the extremities at this time. Respiratory: Patient admits to dyspnea, rough deep barky cough. denies wheezing, hemoptysis, sputum production. Gastrointestinal: Patient denies nausea, vomiting, or worsening of chronic diarrhea, constipation, abdominal pain at this time, but has this intermittently chronically due to her IBS. PHYSICAL EXAMINATION: Most recent vitals outpatient, 02/24/2021 15:59 - pulse 65, respiratory rate 19, blood pressure 105/52, pulse oximetry 99 on 2 L nasal cannula temperature 100.3 @14:30 General: Sitting upright on the edge of the bed. Nasal cannula has already been placed on her, and she is on 2 L nasal cannula HEENT: Head normocephalic atraumatic, conjunctiva are pink, sclera are nonicteric. Hearing is grossly intact to conversation. Respiratory: She does have a very prominent prolonged expiratory rhonchi, best heard at the bases, left base seems more diminished than right. Cardiovascular: Regular rate and rhythm, with no rubs, gallops, or murmur. Abdomen: Soft, nontender, nondistended. Bowel sounds present. Extremities: 2+ pulses in the radial and dorsalis pedis bilaterally. No evidence of clubbing or cyanosis. ASSESSMENT/PLAN: COVID-19 pneumonia Acute hypoxic respiratory failure Fever -She finished her outpatient administration of monoclonal antibodies -Now acutely decompensating & hypoxic/desaturating on room air, therefore qualifies for inpatient stay. Given her comorbidities, she certainly is at very high risk for progressing to severe disease. -Oxygen supplementation with a target for greater than 90% saturation, and will keep the patient on continuous oxygen monitoring. -Based on auscultation of her lungs & cough, this does not seem like typical COVID-19 pneumonia. Because of her immunocompromised state she certainly could have another superimposed infection, therefore will also investigate other etiologies of pneumonia by ordering respiratory panel, chest x-ray, mycoplasma, and urine for Legionella and strep pneumonia. -Lactate dehydrogenase, CRP, procalcitonin, INR, fibrinogen, D-dimer, proBNP, ferritin, creatinine phosphokinase, troponin, liver profile, magnesium level, CBC, basic metabolic profile are all ordered -Dexamethasone ordered -She certainly qualifies remdesivir. Will enter the order for this once the results of her liver profile have returned & only if they are within acceptable limits -Will also wait to administer empiric antibiotics until procalcitonin is back -Patient is already on Xarelto for anticoagulation -Benzonatate 200 mg p.o. 3 times daily as needed for cough Paroxysmal atrial fibrillation Presence of AICD due to history of V-tach -Continue home dose of Xarelto, amiodarone, metoprolol tartrate, statin -Patient will be put on telemetry Hypokalemia -Supplementation ordered Hypomagnesemia -Mag run ordered HTN -Continue home dose of spironolactone RA IBS Sjogrens -Hold home dose of methotrexate, leucovorin, orencia, cevimeline, Viberzi, Hyoscyamine -Continue home dose of Bentyl as needed Anxiety -Continue home dose of venlafaxine, and clonazepam 1 mg BID PRN during the day Difficulty sleeping/insomnia -Continue home dose of amitriptyline and clonazepam 2mg PRN nightly Chronic urinary retention Recurrent UTI -Continue home dose of nitrofurantoin, tamsulosin Fibromyalgia Chronic back pain Chronic abdominal pain -Continue home doses of cyclobenzaprine, Bentyl, hydrocodone Vital Signs Vital Signs Date Time Temp Pulse Resp B/P (MAP) Pulse Ox O2 Delivery O2 Flow Rate FiO2 02/24/21 16:34 99.3 68 17 105/52 (69) 96 Nasal Cannula 2.0 Laboratory Data Labs 24H Laboratory Tests 2 02/24/21 17:14: Immature Granulocyte % (Auto) 0.3, Neutrophils (%) (Auto) 64.3, Lymphocytes (%) (Auto) 29.0, Monocytes (%) (Auto) 4.7, Eosinophils (%) (Auto) 1.3, Basophils (%) (Auto) 0.4, Neutrophils # (Auto) 4.5, Lymphocytes # (Auto) 2.1, Monocytes # (Auto) 0.3, Eosinophils # (Auto) 0.1, Basophils # (Auto) 0.0, Nucleated Red Blood Cells % (auto) 0.0, Prothrombin Time 13.7, Prothromb Time International Ratio 1.01, Activated Partial Thromboplast Time 32.4, Fibrinogen 465H, D-Dimer, Quantitative 926.55H, Anion Gap 4L, Glomerular Filtration Rate > 60.0, Calcium Level 7.5L, Magnesium Level 1.6L, Ferritin 71, Total Bilirubin 0.3, Direct Bilirubin 0.1, Aspartate Amino Transf (AST/SGOT) 19, Alanine Aminotransferase (ALT/SGPT) 20, Alkaline Phosphatase 63, Lactate Dehydrogenase 212, Total Creatine Kinase 76, Troponin I < 0.02, C-Reactive Protein, Quantitative 5.99H, JE-Rsh-C-Type Natriuretic Peptide 68, Total Protein 6.2L, Albumin 2.9L, Albumin/Globulin Ratio 0.9L 02/24/21 17:47: Urine Color YELLOW, Urine Appearance HAZY, Urine pH 5.0, Urine Specific [place] 1.019, Urine Protein 1+H, Urine Glucose (Auto)(UA) NEGATIVE, Urine Ketones (Au to) NEGATIVE, Urine Blood NEGATIVE, Urine Nitrite NEGATIVE, Urine Bilirubin NEGATIVE, Urine Urobilinogen 0.2, Urine Leukocyte Esterase (Auto) 3+H, Urine WBC (Auto) 42H, Urine RBC (Auto) 6H, Urine Hyaline Casts (Auto) 0, Urine Bacteria (Auto) NEGATIVE, Urine Squamous Epithelial Cells 2, Urine Mucus (Auto) SMALL, Urine Sperm (Auto) CBC/BMP Laboratory Tests 02/24/21 17:14 Home Medications Scheduled Abatacept (Orencia) 125 Mg/1 Ml Syringe, 125 MG SC QWEEK SUNDAYS- CURRENTLY ON HOLD Amiodarone HCl (Amiodarone HCl) 200 Mg Tablet, 200 MG PO DAILY Amitriptyline HCl (Amitriptyline HCl) 50 Mg Tablet, 50 MG PO QHS Atorvastatin Calcium (Atorvastatin Calcium) 40 Mg Tablet, 40 MG PO QHS Cevimeline HCl (Cevimeline HCl) 30 Mg Capsule, 30 MG PO BID Eluxadoline (Viberzi) 75 Mg Tablet, 75 MG PO QHS Hyoscyamine Sulfate (Hyoscyamine Sulfate ER) 0.375 Mg Tab.er.12h, 0.375 MG PO BID Leucovorin Calcium (Leucovorin Calcium) 5 Mg Tablet, 5 MG PO QWEEK THURSDAYS - CURRENTLY ON HOLD Losartan Potassium (Losartan Potassium) 100 Mg Tablet, 100 MG PO DAILY Methotrexate Sodium (Methotrexate) 2.5 Mg Tablet, 20 MG PO QWEEK THURSDAY EVENINGS - CURRENTLY ON HOLD Metoprolol Tartrate (Metoprolol Tartrate) 50 Mg Tablet, 50 MG PO BID Multivitamins (Thera M Plus Tablet) 1 Each Tablet, 1 TAB PO DAILY Nitrofurantoin Monohyd/M-Cryst (Nitrofurantoin [place]-Mcr 100 mg) 100 Mg Capsule, 100 MG PO DAILY [place]-3 Fatty Acids/Fish Oil (Fish Oil 1,000 mg Capsule) 1 Each Capsule, 1,000 MG PO BID Rivaroxaban (Xarelto) 20 Mg Tablet, 20 MG PO DAILY Spironolactone (Spironolactone) 25 Mg Tablet, 25 MG PO DAILY Tamsulosin HCl (Flomax) 0.4 Mg Capsule, 0.4 MG PO QHS Venlafaxine HCl (Venlafaxine HCl ER) 75 Mg Cap.er.24h, 75 MG PO DAILY TAKES WITH 150MG FOR 225MG TOTAL Venlafaxine HCl (Venlafaxine HCl ER) 150 Mg Cap.er.24h, 150 MG PO DAILY TAKES WITH 75MG FOR 225MG TOTAL Scheduled PRN Acetaminophen (Tylenol Arthritis) 650 Mg Tablet.er, 1,300 MG PO BID PRN for PAIN Albuterol Sulfate (Albuterol Sulfate Hfa) 8.5 Gm Hfa.aer.ad, 2 PUFF INH Q4H PRN for SOB/WHEEZING Benzonatate (Benzonatate) 200 Mg Capsule, 200 MG PO TID PRN for COUGH Clonazepam (Clonazepam) 2 Mg Tablet, 2 MG PO QHS PRN for SLEEP Clonazepam (Clonazepam) 1 Mg Tab.rapdis, 1 MG PO BID PRN for ANXIETY Cyclobenzaprine HCl (Cyclobenzaprine HCl) 10 Mg Tablet, 10 MG PO TID PRN for MUSCLE SPASMS Dicyclomine HCl (Dicyclomine HCl) 10 Mg Capsule, 10 MG PO TID PRN for ABDOMINAL PAIN Diphenoxylate HCl/Atropine (Lomotil 2.5-0.025 mg Tablet) 1 Each Tablet, 1 TAB PO QID PRN for DIARRHEA Epinephrine (Epipen 2-Christian) 0.3 Mg/0.3 Ml Auto.injct, 0.3 MG IM ASDIRECTED PRN fo r ANAPHYLAXIS Hydrocodone/Acetaminophen (Hydrocodone-Acetamin 7.5-325) 1 Each Tablet, 1 TAB PO Q8H PRN for PAIN Nystatin (Nystatin) 15 Gm Cream..g., 1 APLCT TOP BID PRN for RASH/ITCHING APPLY TO ABDOMINAL FOLDS Allergies Coded Allergies: bee venom protein (honey bee) (Verified Allergy, Severe, PALPITATIONS, SWELLING, DYSPNEA, 08/07/20) amoxicillin (Verified Allergy, Intermediate, rash, 08/07/20) erythromycin base (Verified Allergy, Unknown, 08/07/20) A-FIB/CHADSVASC A-FIB History Current/History of A-Fib/PAF?: Yes Current PO Anticoag Therapy: Yes RAJINDER MANZANARES DO Feb 24, 2021 18:37
[2021-02-24] MEDS ORDERED: POTASSIUM CHLORIDE 10MEQ SR TABLET PO ONE (19:00)
[2021-02-24] MEDS ORDERED: MAG SULF 1GM/100ML (MAG RUN) 1 GM in IV 1 EA IV ONE (19:00)
[2021-02-24] MEDS ORDERED: dexameTHASONE 20MG/5ML VIAL (J1100 PER 1MG) IV ONE (19:00)
[2021-02-24] MEDS: ATORVASTATIN 20 MG TAB PO SCH (19:56)
[2021-02-24] MEDS: AMITRIPTYLINE 50 MG TAB PO SCH (19:56)
[2021-02-24] MEDS: TAMSULOSIN 0.4 MG CAP PO SCH (19:56)
[2021-02-24] MEDS: METOPROLOL TART 50 MG TAB PO SCH (19:59)
[2021-02-24 20:00] VITALS: BP 124/60; O2SAT 98
[2021-02-24] MEDS ORDERED: REMDESIVIR 200 MG in NS 250 ML IV ONE (20:00)
[2021-02-24] MEDS: BENZONATATE 100MG CAPSULE PO PRN (20:57)
[2021-02-24] MEDS ORDERED: SODIUM CHLORIDE 0.9% INJ 10 ML SYR IV ONE (22:00)
[2021-02-25] VITALS: O2SAT 97
[2021-02-25 04:00] VITALS: O2SAT 91
[2021-02-25 07:29] LABS: HEMATOCRIT 37.3 % (36.0-47.0); HEMOGLOBIN 12.5 g/dl (12.0-15.5); LYMPH % 18.1 % (24.0-44.0); MEAN CORPUSCULAR HEMOGLOBIN 30.7 pg (27.0-33.0); MEAN CORPUSCULAR HGB CONC 33.5 g/dl (32.0-36.5); MEAN CORPUSCULAR VOLUME 91.6 fl (80.0-96.0); MONO # 0.1 10^3/uL (0.0-0.8); MONO % 2.4 % (2.0-8.0); NEUTROPHILS # 4.2 10^3/uL (1.5-8.5); NEUTROPHILS % 79.1 % (36.0-66.0); PLATELET COUNT, AUTOMATED 130 10^3/uL (150-450); RED BLOOD COUNT 4.07 10^6/uL (4.00-5.40); WHITE BLOOD COUNT 5.3 10^3/uL (4.0-10.0)
[2021-02-25 07:43] LABS: BLOOD UREA NITROGEN 18 MG/DL (7-18); CALCIUM LEVEL 8.2 MG/DL (8.5-10.1); CARBON DIOXIDE LEVEL 31 MEQ/L (21-32); CHLORIDE LEVEL 104 MEQ/L (98-107); CREATININE FOR GFR 0.74 MG/DL (0.55-1.30); GLOMERULAR FILTRATION RATE > 60.0 (>51); GLUCOSE, FASTING 188 MG/DL (70-100); MAGNESIUM LEVEL 2.1 MG/DL (1.8-2.4); POTASSIUM SERUM 3.7 MEQ/L (3.5-5.1); SODIUM LEVEL 139 MEQ/L (136-145)
[2021-02-25] MEDS ORDERED: VENLAFAXINE **XR** 75MG CAPSULE PO SCH (09:00)
[2021-02-25] MEDS: MULTIVITAMINS/MINERALS THERAP 1 TAB PO SCH (09:38)
[2021-02-25] MEDS: NITROFURANTOIN (MACROBID) 100 MG CAP PO SCH (09:39)
[2021-02-25] MEDS: VENLAFAXINE **XR** 75MG CAPSULE PO SCH (09:39)
[2021-02-25] MEDS: AMIODARONE 200 MG TAB (PACERONE) PO SCH (09:40)
[2021-02-25] MEDS: METOPROLOL TART 50 MG TAB PO SCH ×2 (09:40→20:49)
[2021-02-25] MEDS: LOSARTAN 50MG TABLET PO SCH (09:42)
[2021-02-25] MEDS: dexameTHASONE 4 MG/ML 1ML VIAL (J1100 PER 1MG) IV SCH (09:42)
[2021-02-25] MEDS: SPIRONOLACTONE 25 MG TAB PO SCH (09:42)
[2021-02-25] MEDS ORDERED: guaiFENesin SYRUP 200 MG/10 ML UDC PO PRN (13:35)
[2021-02-25] MEDS: BENZONATATE 100MG CAPSULE PO PRN ×2 (14:25→22:18)
[2021-02-25] MEDS ORDERED: RIVAROXABAN 20 MG TAB (XARELTO) PO SCH (18:00)
--- NOTE | 2021-02-25 19:43 | IPNPDOC ---
Text Note Date of Service The patient was seen on 02/25/21. NOTE Hospitalist Progress Note Subjective: Patient reports that she feels terrible. She is short of breath, and has significant exertional dyspnea. She continues to have a hoarse and barking cough, and rhonchorous noises in her lungs on physical examination. Additionally, this days particularly difficult for her since it is her birthday, and not only that this was also the day that she was supposed to be able to see her grandchildren because they were no longer on quarantine, therefore she is having a hard time emotionally as well. Objective: General: Awake, alert, oriented 3. HEENT: Head normocephalic, atraumatic, sclera are nonicteric. Hearing is grossly intact to conversation. Respiratory: Diminished lung sounds at the left base, low pitched rhonchi noted throughout. She does have a coarse cough, but apparently not productive. Cardiovascular: Regular rate and rhythm, with no rubs, gallops, or murmur. Abdomen: Soft, nontender, nondistended, no hepatosplenomegaly appreciated. Bowel sounds present. Extremities: 2+ pulses in the radial and dorsalis pedis bilaterally. No evidence of clubbing or cyanosis. Assessment/Plan: COVID-19 pneumonia Acute hypoxic respiratory failure Fever -She finished her outpatient administration of monoclonal antibodies -Given her comorbidities, she certainly is at very high risk for progressing to severe disease. -Oxygen supplementation with a target for greater than 90% saturation, and will keep the patient on continuous oxygen monitoring. -Other etiologies of pneumonia investigatin still pending, including: respiratory panel, mycoplasma, and urine for Legionella and strep pneumonia. -Contniue Dexamethasone -Continue Remdesivir. -Procalcitonin negative, therefore will not administer antibiotics at this time -Patient is already on Xarelto for anticoagulation -Benzonatate 200 mg p.o. 3 times daily as needed for cough has already been ordered, but apparently this is not fully effective for her, therefore Robitussi n has also been ordered as well. Paroxysmal atrial fibrillation Presence of AICD due to history of V-tach -Continue home dose of Xarelto, amiodarone, metoprolol tartrate, statin -Continue telemetry Hypokalemia -Resolved Hypomagnesemia -Resolved HTN -Continue home dose of spironolactone RA IBS Sjogrens -Hold home dose of methotrexate, leucovorin, orencia, cevimeline, Viberzi, Hyoscyamine -Continue home dose of Bentyl as needed Anxiety -Continue home dose of venlafaxine, and clonazepam 1 mg BID PRN during the day Difficulty sleeping/insomnia -Continue home dose of amitriptyline and clonazepam 2mg PRN nightly Chronic urinary retention Recurrent UTI -Continue home dose of nitrofurantoin, tamsulosin Fibromyalgia Chronic back pain Chronic abdominal pain -Continue home doses of cyclobenzaprine, Bentyl, hydrocodone VS,Fishbone, I+O VS, Fishbone, I+O Laboratory Tests 02/25/21 06:34 Vital Signs Date Time Temp Pulse Resp B/P (MAP) Pulse Ox O2 Delivery O2 Flow Rate FiO2 02/25/21 09:42 134/63 02/25/21 09:40 62 02/25/21 09:00 2.0 02/25/21 04:00 91 Nasal Cannula 02/24/21 20:00 98.9 18 I&O- Last 24 Hours up to 6 AM 02/25/21 06:00 Intake Total 0 ml Balance 0 ml RAJINDER MANZANARES DO Feb 25, 2021 19:43
[2021-02-25 20:00] VITALS: O2SAT 96
[2021-02-25] MEDS ORDERED: REMDESIVIR 100 MG in NS 250 ML IV SCH (20:00)
[2021-02-25] MEDS: AMITRIPTYLINE 50 MG TAB PO SCH (20:45)
[2021-02-25] MEDS: ATORVASTATIN 20 MG TAB PO SCH (20:45)
[2021-02-25] MEDS: TAMSULOSIN 0.4 MG CAP PO SCH (20:45)
[2021-02-25] MEDS ORDERED: SODIUM CHLORIDE 0.9% INJ 10 ML SYR IV SCH (21:00)
[2021-02-25 22:00] VITALS: BP 128/78
[2021-02-26] VITALS: O2SAT 95
[2021-02-26 04:00] VITALS: O2SAT 94
[2021-02-26 06:00] VITALS: BP 113/60
[2021-02-26] MEDS: BENZONATATE 100MG CAPSULE PO PRN (06:32)
[2021-02-26 07:03] LABS: BASO % 0.1 % (0.0-1.0); HEMATOCRIT 37.2 % (36.0-47.0); HEMOGLOBIN 12.2 g/dl (12.0-15.5); LYMPH # 1.5 10^3/uL (1.5-5.0); LYMPH % 21.6 % (24.0-44.0); MEAN CORPUSCULAR HEMOGLOBIN 30.2 pg (27.0-33.0); MEAN CORPUSCULAR HGB CONC 32.8 g/dl (32.0-36.5); MEAN CORPUSCULAR VOLUME 92.1 fl (80.0-96.0); MONO # 0.4 10^3/uL (0.0-0.8); MONO % 5.8 % (2.0-8.0); NEUTROPHILS # 5.1 10^3/uL (1.5-8.5); NEUTROPHILS % 71.9 % (36.0-66.0); PLATELET COUNT, AUTOMATED 140 10^3/uL (150-450); RED BLOOD COUNT 4.04 10^6/uL (4.00-5.40); WHITE BLOOD COUNT 7.1 10^3/uL (4.0-10.0)
[2021-02-26 07:14] LABS: INR 1.32; PROTHROMBIN TIME 16.8 SECONDS (12.7-14.5)
[2021-02-26 07:15] LABS: PARTIAL THROMBOPLASTIN TIME 35.2 SECONDS (25.9-37.0)
[2021-02-26 07:29] LABS: ALBUMIN 2.5 GM/DL (3.2-5.2); ALT/SGPT 19 U/L (12-78); BILIRUBIN,DIRECT 0.1 MG/DL (0.0-0.2); BILIRUBIN,TOTAL 0.2 MG/DL (0.2-1.0); BLOOD UREA NITROGEN 19 MG/DL (7-18); CALCIUM LEVEL 7.9 MG/DL (8.5-10.1); CARBON DIOXIDE LEVEL 31 MEQ/L (21-32); CHLORIDE LEVEL 109 MEQ/L (98-107); CPK CREATINE PHOSPHOKINASE 82 U/L (26-192); CREATININE FOR GFR 0.65 MG/DL (0.55-1.30); FERRITIN 72 NG/ML (8-252); GLOMERULAR FILTRATION RATE > 60.0 (>51); GLUCOSE, FASTING 165 MG/DL (70-100); LDH LACTATE DEHYDROGENASE 178 U/L (84-246); MAGNESIUM LEVEL 1.9 MG/DL (1.8-2.4); NT-PRO BNP 430 PG/ML (<125); POTASSIUM SERUM 3.4 MEQ/L (3.5-5.1); SODIUM LEVEL 143 MEQ/L (136-145); TOTAL PROTEIN 6.1 GM/DL (6.4-8.2); TROPONIN I < 0.02 NG/ML (< 0.10)
[2021-02-26] MEDS: dexameTHASONE 4 MG/ML 1ML VIAL (J1100 PER 1MG) IV SCH (09:49)
[2021-02-26] MEDS: MULTIVITAMINS/MINERALS THERAP 1 TAB PO SCH (09:49)
[2021-02-26] MEDS: NITROFURANTOIN (MACROBID) 100 MG CAP PO SCH (09:49)
[2021-02-26 09:50] VITALS: BP 113/60
[2021-02-26] MEDS: LOSARTAN 50MG TABLET PO SCH (09:50)
[2021-02-26] MEDS: AMIODARONE 200 MG TAB (PACERONE) PO SCH (09:50)
[2021-02-26] MEDS: METOPROLOL TART 50 MG TAB PO SCH (09:50)
[2021-02-26] MEDS: VENLAFAXINE **XR** 75MG CAPSULE PO SCH (09:50)
[2021-02-26] MEDS: SPIRONOLACTONE 25 MG TAB PO SCH (09:51)
[2021-02-26] MEDS ORDERED: PRED10TA2 PO (11:45)
[2021-02-26] MEDS ORDERED: GUAI100S51 PO (11:45)
--- NOTE | 2021-02-26 11:52 | DS.PDOC ---
Discharge Summary General Date of Admission Feb 24, 2021 at 15:58 Date of Discharge 02/26/21 Discharge Summary DISCHARGE DIAGNOSES: 1. Hypoxic respiratory failure 2. Covid 3. Electrolyte abnormality COMPLICATIONS/CHIEF COMPLAINT: Hypoxia Covid +. HOSPITAL COURSE: Ms. Marroquin, is a 56-year-old female with a past medical history of paroxysmal atrial fibrillation, presence of AICD, chronic urinary retention with self- catheterization, recurrent urinary tract infections, hypertension, rheumatoid arthritis, IBS, Sjogren's, anxiety, GERD, fibromyalgia, rectocele, ovarian cyst, and chronic back pain presented to the emergency room department on 02/24 after she was asked by her primary care physician to receive monoclonal antibodies. Following her transfusion she began to feel short of breath. She required oxygen and was placed on 2 L nasal cannula. She was started on remdesivir as well as dexamethasone. On 02/26 she was weaned off oxygen and was tolerating room air with adequate oxygen saturations. She was reportedly only put on oxygen for comfort at night because she uses CPAP which was not available during hospitalization. Prior to discharge she underwent a 6-minute walk test and did not qualify for home oxygen therapy. She was instructed to report back to the emergency room department call 911 if there was changes in her breathing/respiratory status. Patient did not want home health services. Patient noted to have hypomagnesemia and hypokalemia. She is encouraged to follow-up with her primary care physician for repeat labs. DISCHARGE MEDICATIONS: Please see below. ALLERGIES: Please see below. PHYSICAL EXAMINATION ON DISCHARGE: VITAL SIGNS: Please see below. General: Lying in bed, no acute distress Head/Neck/Throat: Trachea midline, mucous membranes moist Eyes: Sclera anicteric, PERRLA Thorax: Normal respiratory effort on room air, lungs clear to auscultation rebekah aterally, no wheezes/rales/rhonchi Cardiovascular: Normal rate, regular rhythm, normal S1, S2; no S3, S4, rubs/gallops/murmurs Abdomen: Bowel sounds present, soft/nontender/nondistended Genitourinary: No CVA tenderness, no Mao in place Musculoskeletal: Moving all extremities, no edema Skin: Warm, dry Neurologic: AAOx3, speech fluent and goal-directed, no focal deficits, grossly intact LABORATORY DATA: Please see below. IMAGING: CXR 02/24/21 The technique utilized in obtaining the radiograph has magnified the cardiac silhouette and accentuated the interstitial markings. The cardiomediastinal silhouette lung ching are unchanged. The single chamber bipolar pacemaker devices unchanged. The tip of a dorsal column stimulator is unchanged. DISCHARGE INSTRUCTIONS: 1. Follow-up with primary care physician in 5 days DISCHARGE CONDITION: Stable TIME SPENT ON DISCHARGE: 25 minutes. Vital Signs/I&Os Vital Signs Date Time Temp Pulse Resp B/P (MAP) Pulse Ox O2 Delivery O2 Flow Rate FiO2 02/26/21 09:50 58 113/60 02/26/21 06:00 97.6 16 96 Nasal Cannula 2.0 I&O- Last 24 Hours up to 6 AM 02/26/21 06:00 Intake Total 2080 ml Output Total 1700 ml Balance 380 ml Laboratory Data Labs 24H Laboratory Tests 2 02/26/21 06:13: Immature Granulocyte % (Auto) 0.6, Neutrophils (%) (Auto) 71.9H, Lymphocytes (%) (Auto) 21.6L, Monocytes (%) (Auto) 5.8, Eosinophils (%) (Auto) 0.0, Basophils (%) (Auto) 0.1, Neutrophils # (Auto) 5.1, Lymphocytes # (Auto) 1.5, Monocytes # (Auto) 0.4, Eosinophils # (Auto) 0.0, Basophils # (Auto) 0.0, Nucleated Red Blood Cells % (auto) 0.0, Prothrombin Time 16.8H, Prothromb Time International Ratio 1.32, Activated Partial Thromboplast Time 35.2, Fibrinogen 447, Anion Gap 3L, Glomerular Filtration Rate > 60.0, Calcium Level 7.9L, Magnesium Level 1.9, Ferritin 72, Total Bilirubin 0.2, Direct Bilirubin 0.1, Aspartate Amino Transf (AST/SGOT) 18, Alanine Aminotransferase (ALT/SGPT) 19, Alkaline Phosphatase 58, Lactate Dehydrogenase 178, Total Creatine Kinase 82, Troponin I < 0.02, NT -Pro-B-Type Natriuretic Peptide 430H, Total Protein 6.1L, Albumin 2.5L, Albumin/Globulin Ratio 0.7L, Procalcitonin <0.05 CBC/BMP Laboratory Tests 02/26/21 06:13 Discharge Medications Scheduled Abatacept (Orencia) 125 Mg/1 Ml Syringe, 125 MG SC QWEEK, (Reported) SUNDAYS- CURRENTLY ON HOLD Amiodarone HCl (Amiodarone HCl) 200 Mg Tablet, 200 MG PO DAILY, (Reported) Amitriptyline HCl (Amitriptyline HCl) 50 Mg Tablet, 50 MG PO QHS, (Reported) Atorvastatin Calcium (Atorvastatin Calcium) 40 Mg Tablet, 40 MG PO QHS, (Reported) Cevimeline HCl (Cevimeline HCl) 30 Mg Capsule, 30 MG PO BID, (Reported) Eluxadoline (Viberzi) 75 Mg Tablet, 75 MG PO QHS, (Reported) Hyoscyamine Sulfate (Hyoscyamine Sulfate ER) 0.375 Mg Tab.er.12h, 0.375 MG PO BID, (Reported) Leucovorin Calcium (Leucovorin Calcium) 5 Mg Tablet, 5 MG PO QWEEK, (Reported) THURSDAYS - CURRENTLY ON HOLD Losartan Potassium (Losartan Potassium) 100 Mg Tablet, 100 MG PO DAILY, (Reported) Methotrexate Sodium (Methotrexate) 2.5 Mg Tablet, 20 MG PO QWEEK, (Reported) THURSDAY EVENINGS - CURRENTLY ON HOLD Metoprolol Tartrate (Metoprolol Tartrate) 50 Mg Tablet, 50 MG PO BID, (Reported) Multivitamins (Thera M Plus Tablet) 1 Each Tablet, 1 TAB PO DAILY, (Reported) Nitrofurantoin Monohyd/M-Cryst (Nitrofurantoin [place]-Mcr 100 mg) 100 Mg Capsule, 100 MG PO DAILY, (Reported) [place]-3 Fatty Acids/Fish Oil (Fish Oil 1,000 mg Capsule) 1 Each Capsule, 1,000 MG PO BID, (Reported) Prednisone (Prednisone) 10 Mg Tablet, 10 MG PO TAPER Take 4 tabs daily x 3 days, then 3 tabs daily x 3 days, then 2 tabs daily x 3 days, then 1 tab daily x 3 days and stop Rivaroxaban (Xarelto) 20 Mg Tablet, 20 MG PO DAILY, (Reported) Spironolactone (Spironolactone) 25 Mg Tablet, 25 MG PO DAILY, (Reported) Tamsulosin HCl (Flomax) 0.4 Mg Capsule, 0.4 MG PO QHS, (Reported) Venlafaxine HCl (Venlafaxine HCl ER) 75 Mg Cap.er.24h, 75 MG PO DAILY, (Reported) TAKES WITH 150MG FOR 225MG TOTAL Venlafaxine HCl (Venlafaxine HCl ER) 150 Mg Cap.er.24h, 150 MG PO DAILY, (Reported) TAKES WITH 75MG FOR 225MG TOTAL Scheduled PRN Acetaminophen (Tylenol Arthritis) 650 Mg Tablet.er, 1,300 MG PO BID PRN for PAIN, (Reported) Albuterol Sulfate (Albuterol Sulfate Hfa) 8.5 Gm Hfa.aer.ad, 2 PUFF INH Q4H PRN for SOB/WHEEZING, (Reported) Benzonatate (Benzonatate) 200 Mg Capsule, 200 MG PO TID PRN for COUGH, (Reported) Clonazepam (Clonazepam) 2 Mg Tablet, 2 MG PO QHS PRN for SLEEP, (Reported) Clonazepam (Clonazepam) 1 Mg Tab.rapdis, 1 MG PO BID PRN for ANXIETY, (Reported) Cyclobenzaprine HCl (Cyclobenzaprine HCl) 10 Mg Tablet, 10 MG PO TID PRN for MUSCLE SPASMS, (Reported) Dicyclomine HCl (Dicyclomine HCl) 10 Mg Capsule, 10 MG PO TID PRN for ABDOMINAL PAIN, (Reported) Diphenoxylate HCl/Atropine (Lomotil 2.5-0.025 mg Tablet) 1 Each Tablet, 1 TAB PO QID PRN for DIARRHEA, (Reported) Epinephrine (Epipen 2-Christian) 0.3 Mg/0.3 Ml Auto.injct, 0.3 MG IM ASDIRECTED PRN for ANAPHYLAXIS, (Reported) Guaifenesin (Guaifenesin) 100 Mg/5 Ml Liquid, 10 ML PO Q4HP PRN for COUGH Hydrocodone/Acetaminophen (Hydrocodone-Acetamin 7.5-325) 1 Each Tablet, 1 TAB PO Q8H PRN for PAIN, (Reported) Nystatin (Nystatin) 15 Gm Cream..g., 1 APLCT TOP BID PRN for RASH/ITCHING, (Reported) APPLY TO ABDOMINAL FOLDS Allergies Coded Allergies: bee venom protein (honey bee) (Verified Allergy, Severe, PALPITATIONS, SWELLING, DYSPNEA, 08/07/20) amoxicillin (Verified Allergy, Intermediate, rash, 08/07/20) erythromycin base (Verified Allergy, Unknown, 08/07/20) JOYCE CANCINO M.D. Feb 26, 2021 11:50
[2021-02-26] MEDS ORDERED: POTASSIUM CHLORIDE 10MEQ SR TABLET PO ONE (12:00)
[2021-02-26 17:08] LABS: MYCOPLASMA PNEUMONIAE IgG <100 U/mL (0-99); MYCOPLASMA PNEUMONIAE IgM <770 U/mL (0-769)
[2021-02-27 21:07] LABS: BODY FLUID CULTURE Not indicated. (.); LEGIONELLA ANTIGEN URINE Negative (Negative); ORGANISM ID Not indicated. (.); SPECIMEN SOURCE Urine (.); URINE STREP PNEUMONIAE ANTIGEN Negative (Negative)
== END 2021-02-26 14:10 | disposition home or self-care (01) | DRG 137 ==
LOC: M 4MAIN 15:58
PROVIDERS: ADMIT Neuromusculoskeletal Medicine & OMM; ATTEND Internal Medicine
DX: U07.1 COVID-19 (principal); J96.01 Acute respiratory failure with hypoxia; E83.42 Hypomagnesemia; M35.00 Sjogren syndrome, unspecified; I48.0 Paroxysmal atrial fibrillation; E87.6 Hypokalemia; I10 Essential (primary) hypertension; M06.9 Rheumatoid arthritis, unspecified; M79.7 Fibromyalgia; K58.9 Irritable bowel syndrome, unspecified; K21.9 Gastro-esophageal reflux disease without esophagitis; Z79.899 Other long term (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; Z91.030 Bee allergy status; Z88.0 Allergy status to penicillin; R33.9 Retention of urine, unspecified; F41.9 Anxiety disorder, unspecified; Z96.611 Presence of right artificial shoulder joint; Z95.0 Presence of cardiac pacemaker

== ENCOUNTER → 2021-03-11 | Outpatient (CLI) | payer BC, OTHER, MEDICARE ==
[~2021-03-11] MED LIST changes: +ALBU8.5H INH; +BENZ200C70 PO; +GUAI100S51 PO; +NITR100C2 PO; +PRED10TA2 PO
[2021-03-11 15:53] LABS: BLOOD UREA NITROGEN 16 MG/DL (7-18); CALCIUM LEVEL 8.1 MG/DL (8.5-10.1); CARBON DIOXIDE LEVEL 33 MEQ/L (21-32); CHLORIDE LEVEL 107 MEQ/L (98-107); CREATININE FOR GFR 0.84 MG/DL (0.55-1.30); GLOMERULAR FILTRATION RATE > 60.0 (>51); GLUCOSE, FASTING 132 MG/DL (70-100); POTASSIUM SERUM 2.4 MEQ/L (3.5-5.1); SODIUM LEVEL 145 MEQ/L (136-145)
== END ==
LOC: M LAB 14:17
PROVIDERS: ATTEND Internal Medicine Cardiovascular Disease
DX: I48.0 Paroxysmal atrial fibrillation (principal)

== ENCOUNTER → 2021-03-18 | Outpatient (CLI) | payer BC, OTHER, MEDICARE ==
[2021-03-18 16:09] LABS: BLOOD UREA NITROGEN 17 MG/DL (7-18); CALCIUM LEVEL 8.4 MG/DL (8.5-10.1); CARBON DIOXIDE LEVEL 28 MEQ/L (21-32); CHLORIDE LEVEL 109 MEQ/L (98-107); GLOMERULAR FILTRATION RATE > 60.0 (>51); GLUCOSE, FASTING 106 MG/DL (70-100); POTASSIUM SERUM 4.9 MEQ/L (3.5-5.1); SODIUM LEVEL 141 MEQ/L (136-145)
== END ==
LOC: M LAB 14:25
PROVIDERS: ATTEND Internal Medicine Cardiovascular Disease
DX: I48.0 Paroxysmal atrial fibrillation (principal); I47.2 Ventricular tachycardia; E87.6 Hypokalemia

== ENCOUNTER → 2021-08-09 | Outpatient (CLI) | payer BC, OTHER, MEDICARE ==
[~2021-08-09] MED LIST changes: -AMIO200T3 PO; +AMIO200T49 PO; +FURO40TA2 PO; +LOSA100T45 PO; -LOSA100T50 PO; +MACR100C43 PO; +POTA-136 PO; +POTA-149 PO; -POTA10TA16 PO; +PRED5PAK2 PO
== END ==
LOC: M LABSMTC 10:42
PROVIDERS: ATTEND Anesthesiology
DX: Z20.828 Contact with and (suspected) exposure to other viral communicable diseases (principal); Z11.59 Encounter for screening for other viral diseases

== ENCOUNTER 2021-08-14 09:45 | Day surgery (SDC) | payer BC, OTHER, MEDICARE ==
[~2021-08-14] VITALS: Ht 165.1 cm; Wt 92.3 kg
[~2021-08-14 09:45] MED LIST changes: +ACETAMINOPHEN 1000MG 100ML IV BTL (OFIRMEV) (J0131 PER 10MG) As Ordered ONE; +EPINEPHrine 1MG/10ML SYRINGE 1.5IN As Ordered ONE; +KETOROLAC 60MG 2ML VIAL As Ordered ONE; +LIDOCAINE 1% MDV 20ML VIAL SQ PRN; +LIDOCAINE 2% 100MG/5ML SDV (FOR ANES.) As Ordered ONE; +LR 1,000 ML IV ONE; +MIDAZOLAM INJ 2MG/2ML VIAL (J2250 PER 1MG) As Ordered ONE; +ONDANSETRON 4MG/2ML VIAL As Ordered ONE; +ROCURONIUM BROMIDE 50 MG/5 ML VIAL As Ordered ONE; +SUGAMMADEX SODIUM 500 MG/5 ML VIAL (BRIDION) As Ordered ONE; +ceFAZolin SOD 2 GM in IV 1 EA IV ONE; +dexameTHASONE 4 MG/ML 1ML VIAL (J1100 PER 1MG) As Ordered ONE; +fentaNYL 100 MCG/2 ML INJECTION As Ordered ONE; +propofoL 200 MG/20 ML VIAL As Ordered ONE
[2021-08-14 10:17] LABS: HEMATOCRIT 38.3 % (36.0-47.0); HEMOGLOBIN 13.1 g/dl (12.0-15.5); MEAN CORPUSCULAR HEMOGLOBIN 31.3 pg (27.0-33.0); MEAN CORPUSCULAR HGB CONC 34.2 g/dl (32.0-36.5); MEAN CORPUSCULAR VOLUME 91.6 fl (80.0-96.0); PLATELET COUNT, AUTOMATED 265 10^3/uL (150-450); RED BLOOD COUNT 4.18 10^6/uL (4.00-5.40); WHITE BLOOD COUNT 8.6 10^3/uL (4.0-10.0)
[2021-08-14 10:36] LABS: BLOOD UREA NITROGEN 12 MG/DL (7-18); CALCIUM LEVEL 8.8 MG/DL (8.5-10.1); CARBON DIOXIDE LEVEL 31 MEQ/L (21-32); CHLORIDE LEVEL 106 MEQ/L (98-107); CREATININE FOR GFR 0.82 MG/DL (0.55-1.30); GLOMERULAR FILTRATION RATE > 60.0 (>51); GLUCOSE, FASTING 141 MG/DL (70-100); POTASSIUM SERUM 3.4 MEQ/L (3.5-5.1); SODIUM LEVEL 142 MEQ/L (136-145)
[2021-08-14] MEDS ORDERED: HYDROCORTISONE 100 MG/2 ML VIAL (J1720 PER 1) As Ordered ONE (11:38)
[2021-08-14] MEDS ORDERED: VASOPRESSIN INJ 20 UNITS/ML VIAL As Ordered ONE (12:02)
[2021-08-14] MEDS ORDERED: SEVOFLURANE INHAL SOLN 250 ML BTL As Ordered ONE (12:03)
[2021-08-14] MEDS ORDERED: PHENYLephrine 500MCG 5ML (100MCG/ML) SYRINGE As Ordered ONE ×2 (12:55→14:30)
[2021-08-14] MEDS ORDERED: HYDROmorphone HCL 2MG/ML 1ML VIAL As Ordered ONE (14:33)
[2021-08-14] MEDS ORDERED: ePHEDrine SULFATE 25 MG/5 ML(5MG/ML) SYRINGE As Ordered ONE (14:42)
[2021-08-14] MEDS ORDERED: LIDOCAINE W/EPINEPHRINE 1% 20ML VIAL As Ordered ONE (15:02)
[2021-08-14] MEDS ORDERED: ESTROGENS VAGINAL CREAM 30GM As Ordered ONE (15:06)
[2021-08-14] MEDS ORDERED: fentaNYL 100 MCG/2 ML INJECTION IV PRN (16:05)
[2021-08-14] MEDS ORDERED: HYDROMORPHONE HCL 0.5 MG/ 0.5 ML SYRINGE (J1170 PER 1) IV PRN (16:05)
[2021-08-14] MEDS ORDERED: oxyCODONE 5MG TAB PO PRN (16:05)
[2021-08-14] MEDS ORDERED: ONDANSETRON 4MG/2ML VIAL IV PRN (16:05)
[2021-08-14] MEDS ORDERED: METOCLOPRAMIDE INJ 10MG/2ML VIAL (J2765 PER 1) IV PRN (16:05)
[2021-08-14] MEDS ORDERED: LR 1,000 ML IV SCH ×2 (16:05→16:15)
[2021-08-14] MEDS ORDERED: PERCOCET 5MG/325MG TAB PO PRN (16:15)
[2021-08-14 16:45] VITALS: BP 149/76
[2021-08-14] MEDS ORDERED: IBUPROFEN 800 MG TAB PO SCH (18:00)
== END 2021-08-14 17:39 | disposition home or self-care (01) ==
LOC: M SDC 09:45
PROVIDERS: ATTEND Obstetrics & Gynecology
DX: N81.11 Cystocele, midline (principal); N81.6 Rectocele; I10 Essential (primary) hypertension; E78.00 Pure hypercholesterolemia, unspecified; M79.7 Fibromyalgia; F41.9 Anxiety disorder, unspecified; M05.9 Rheumatoid arthritis with rheumatoid factor, unspecified; Z88.0 Allergy status to penicillin; Z88.1 Allergy status to other antibiotic agents; Z91.030 Bee allergy status; Z79.899 Other long term (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; Z79.52 Long term (current) use of systemic steroids
CPT/HCPCS: 36415; 57250; 57282; 80048; 85027; 86850; 86900; 86901; 88302; C1713; C1771; J0131; J0690; J1100; J1170; J1720; J1885; J2250; J2370; J2405; J3010

== ENCOUNTER → 2021-10-07 | Outpatient (CLI) | payer MEDICARE, BC, OTHER ==
[~2021-10-07] MED LIST changes: -ACETAMINOPHEN 1000MG 100ML IV BTL (OFIRMEV) (J0131 PER 10MG) As Ordered ONE; -EPINEPHrine 1MG/10ML SYRINGE 1.5IN As Ordered ONE; -KETOROLAC 60MG 2ML VIAL As Ordered ONE; -LIDOCAINE 1% MDV 20ML VIAL SQ PRN; -LIDOCAINE 2% 100MG/5ML SDV (FOR ANES.) As Ordered ONE; -LR 1,000 ML IV ONE; -MIDAZOLAM INJ 2MG/2ML VIAL (J2250 PER 1MG) As Ordered ONE; -ONDANSETRON 4MG/2ML VIAL As Ordered ONE; -ROCURONIUM BROMIDE 50 MG/5 ML VIAL As Ordered ONE; -SUGAMMADEX SODIUM 500 MG/5 ML VIAL (BRIDION) As Ordered ONE; -ceFAZolin SOD 2 GM in IV 1 EA IV ONE; -dexameTHASONE 4 MG/ML 1ML VIAL (J1100 PER 1MG) As Ordered ONE; -fentaNYL 100 MCG/2 ML INJECTION As Ordered ONE; -propofoL 200 MG/20 ML VIAL As Ordered ONE
== END ==
LOC: M WUC 14:34
PROVIDERS: ATTEND Internal Medicine
DX: M43.02 Spondylolysis, cervical region (principal)

== ENCOUNTER → 2022-04-02 | Outpatient (REF) | payer OTHER, MEDICARE, BC ==
[~2022-04-02] MED LIST changes: +CEVI30CA6 PO; -CEVI30CAP PO; +LEVO1TAB40 PO; -LEVO750T13 PO; +NYST-13 TOP; -NYST10CR TOP; +POTA-150 PO; -POTA10TA17 PO
== END ==
LOC: M LAB REF 16:12
PROVIDERS: ATTEND Internal Medicine
DX: M06.9 Rheumatoid arthritis, unspecified (principal)

== ENCOUNTER → 2022-07-04 | Outpatient (REF) | payer OTHER, BC, MEDICARE | LOC: M LAB REF 14:23 | PROVIDERS: ATTEND Internal Medicine | DX: N39.0 Urinary tract infection, site not specified (principal) ==

== ENCOUNTER → 2022-10-17 | Outpatient (REF) | payer OTHER, MEDICARE ==
[~2022-10-17] MED LIST changes: -LOSA100T45 PO; +LOSA100T46 PO
== END ==
LOC: M LAB REF 12:04
PROVIDERS: ATTEND Internal Medicine
DX: R30.0 Dysuria (principal)

== ENCOUNTER → 2023-03-22 | Outpatient (REF) | payer BC, OTHER, MEDICARE ==
[~2023-03-22] MED LIST changes: +ASPI-161 PO; +ASPI81TA26 PO; +BENZ-18 PO; +CLON1TAB8; +CLOP75TA99 PO; +DICY-61 PO; -DICY10CA13 PO; +DICY20TA20; +DICY20TA3 PO; +HYDR-643 PO; +LEUC5TAB PO; +LEVA45AE INH; +METH-855; +METH-855 PO; +OMEG10002 PO; +SOTA80TA32 PO; +TRIA1CR80 TOP; +VENL75TA2 PO; +VITA500C24 PO
== END ==
LOC: M WUC 19:52
PROVIDERS: ATTEND Registered Nurse
DX: J18.9 Pneumonia, unspecified organism (principal); L02.216 Cutaneous abscess of umbilicus

== ENCOUNTER → 2023-03-22 | Outpatient (CLI) | payer MEDICARE, BC, OTHER | LOC: M RAD 09:58 | PROVIDERS: ATTEND Registered Nurse | DX: J18.9 Pneumonia, unspecified organism (principal) ==

== ENCOUNTER 2023-03-24 17:33 | Inpatient (IN) | payer MEDICARE, BC, OTHER ==
[~2023-03-24] VITALS: Ht 162.6 cm; Wt 102.3 kg
[~2023-03-24 17:33] MED LIST changes: -ASPI-161 PO; -ASPI81TA26 PO; -BENZ-18 PO; -CLON1TAB8; -CLOP75TA99 PO; -DICY20TA20; -DICY20TA3 PO; -HYDR-643 PO; -LEUC5TAB PO; -LEVA45AE INH; -METH-855; -METH-855 PO; -OMEG10002 PO; -SOTA80TA32 PO; -TRIA1CR80 TOP; -VENL75TA2 PO; -VITA500C24 PO
[2023-03-24 18:39] LABS: VENOUS BASE EXCESS -0.4 (-2.0-2.0); VENOUS HCO3 27.2 MMOL/L (23.0-27.0); VENOUS O2 SATURATION 67.7 % (60.0-80.0); VENOUS PARTIAL PRESSURE CO2 57.7 mmHg (38.0-50.0); VENOUS PARTIAL PRESSURE O2 36.3 mmHg (30.0-50.0); VENOUS PH 7.292 UNITS (7.330-7.430); VENOUS STANDARD HCO3 23.5 MMOL/L
[2023-03-24 18:43] LABS: BASO % 0.5 % (0.0-1.0); EOS # 0.3 10^3/uL (0.0-0.5); EOS % 4.4 % (0.0-3.0); HEMATOCRIT 37.6 % (36.0-47.0); HEMOGLOBIN 12.8 g/dl (12.0-15.5); LYMPH # 1.9 10^3/uL (1.5-5.0); LYMPH % 26.1 % (24.0-44.0); MEAN CORPUSCULAR HEMOGLOBIN 31.4 pg (27.0-33.0); MEAN CORPUSCULAR VOLUME 92.4 fl (80.0-96.0); MONO # 0.4 10^3/uL (0.0-0.8); MONO % 5.1 % (2.0-8.0); NEUTROPHILS # 4.6 10^3/uL (1.5-8.5); NEUTROPHILS % 63.6 % (36.0-66.0); PLATELET COUNT, AUTOMATED 202 10^3/uL (150-450); RED BLOOD COUNT 4.07 10^6/uL (4.00-5.40); WHITE BLOOD COUNT 7.3 10^3/uL (4.0-10.0)
[2023-03-24] MEDS ORDERED: ASPI81TA26 PO (18:47)
[2023-03-24] MEDS ORDERED: DICY20TA20 (18:47)
[2023-03-24] MEDS ORDERED: METH-855 (18:47)
[2023-03-24] MEDS ORDERED: SOTA80TA32 PO ×2 (18:47→22:15)
[2023-03-24] MEDS ORDERED: CLOP75TA99 PO (18:47)
[2023-03-24] MEDS ORDERED: CLON1TAB8 (18:47)
[2023-03-24] MEDS ORDERED: VITA500C24 PO (18:47)
[2023-03-24 19:17] LABS: ALBUMIN 3.2 G/DL (3.2-5.2); ALKALINE PHOSPHATASE 101 U/L (46-116); ALT/SGPT 20 U/L (7.0-40); AST/SGOT 26 U/L (<34); BILIRUBIN,DIRECT 0.1 MG/DL (<0.4); BILIRUBIN,TOTAL 0.6 MG/DL (0.3-1.2); BLOOD UREA NITROGEN 17 MG/DL (9-23); CALCIUM LEVEL 8.6 MG/DL (8.3-10.6); CARBON DIOXIDE LEVEL 29 MMOL/L (20-31); CHLORIDE LEVEL 103 MMOL/L (98-107); CREATININE FOR GFR 0.63 MG/DL (0.55-1.30); GLOMERULAR FILTRATION RATE > 60.0 (>45); GLUCOSE, FASTING 187 MG/DL (74-106); POTASSIUM SERUM 4.6 MMOL/L (3.5-5.1); SODIUM LEVEL 138 MMOL/L (136-145); TOTAL PROTEIN 6.4 G/DL (5.7-8.2)
[2023-03-24 19:20] LABS: THYROID STIMULATING HORMONE 0.851 uIU/ML (0.55-4.78)
[2023-03-24] MEDS ORDERED: ISOVUE-370 76% 100ML VIAL As Ordered ONE (19:28)
[2023-03-24 20:33] LABS: MAGNESIUM LEVEL 1.5 MG/DL (1.8-2.4)
[2023-03-24] MEDS ORDERED: cefTRIAXone SOD 2 GM in D5W MINI-BAG PLUS 50 ML IV ONE (21:00)
[2023-03-24] MEDS ORDERED: NS 1,000 ML IV ONE (21:00)
[2023-03-24] MEDS ORDERED: CYCL-707 PO (22:15)
[2023-03-24] MEDS ORDERED: BENZ-18 PO (22:15)
[2023-03-24] MEDS ORDERED: HYDR-643 PO (22:15)
[2023-03-24] MEDS ORDERED: TRIA1CR80 TOP (22:15)
[2023-03-24] MEDS ORDERED: METH2.5T48 PO (22:15)
[2023-03-24] MEDS ORDERED: CLON1TAB8 PO (22:15)
[2023-03-24] MEDS ORDERED: EPIP0.3I2 IM (22:15)
[2023-03-24] MEDS ORDERED: ASPI-161 PO (22:15)
[2023-03-24] MEDS ORDERED: OMEG10002 PO (22:15)
[2023-03-24] MEDS ORDERED: DICY20TA3 PO (22:15)
[2023-03-24] MEDS ORDERED: LEUC5TAB PO (22:15)
[2023-03-24] MEDS ORDERED: METH-855 PO (22:15)
[2023-03-24] MEDS ORDERED: LEVO1TAB40 PO (22:15)
[2023-03-24] MEDS ORDERED: HYDR-4514 PO (22:15)
[2023-03-24] MEDS ORDERED: LEVA45AE INH (22:15)
[2023-03-24] MEDS ORDERED: VENL75TA2 PO (23:03)
[2023-03-24] MEDS ORDERED: HOME MED LIST COMPLETE! XX SCH (23:05)
[2023-03-24] MEDS ORDERED: clonazePAM 1 MG TAB PO PRN (23:15)
[2023-03-25] VITALS (8 sets, daily range): BP systolic 113–151; BP diastolic 62–87; TEMP 96.8–98.1; O2SAT 93–96
[2023-03-25] MEDS: MAG SULF 1GM/100ML (MAG RUN) 1 GM in IV 1 EA IV SCH ×3 (00:26→03:13)
[2023-03-25] MEDS: DOXYCYCLINE HYCLATE 100MG TABLET PO SCH ×3 (00:26→21:01)
[2023-03-25] MEDS ORDERED: DEXTROMETHORPHAN 60MG/10ML SUSP 90ML BTL(DELSYM) PO PRN ×2 (00:40→05:35)
[2023-03-25] MEDS ORDERED: ALBUTEROL SULFATE 2.5MG/0.5ML INH NEB SOLN NEB ONE (00:40)
[2023-03-25] MEDS ORDERED: DEXTROMETHORPHAN 60MG/10ML SUSP 90ML BTL(DELSYM) PO ONE (01:45)
[2023-03-25] MEDS ORDERED: LEVALBUTEROL 1.25MG 0.5ML CONCENTRATE NEB INH SCH (02:00)
[2023-03-25] MEDS: ALBUTEROL SULFATE 2.5MG/0.5ML INH NEB SOLN NEB SCH ×6 (04:07→23:06)
[2023-03-25] MEDS ORDERED: PIPERACILLIN/TAZOBACTAM SOD 3.375 GM in D5W MINI-BAG PLUS 50 ML IV SCH (06:30)
[2023-03-25 06:49] LABS: HEMOGLOBIN A1c 7.8 % (4.0-6.0)
[2023-03-25] MEDS: BENZONATATE 100MG CAPSULE PO PRN ×2 (06:59→18:22)
[2023-03-25 07:17] LABS: PROCALCITONIN <0.04 ng/ml
[2023-03-25 07:20] LABS: BLOOD UREA NITROGEN 13 MG/DL (9-23); CARBON DIOXIDE LEVEL 29 MMOL/L (20-31); CHLORIDE LEVEL 105 MMOL/L (98-107); GLOMERULAR FILTRATION RATE > 60.0 (>45); GLUCOSE, FASTING 213 MG/DL (74-106); MAGNESIUM LEVEL 2.3 MG/DL (1.8-2.4); POTASSIUM SERUM 3.4 MMOL/L (3.5-5.1); SODIUM LEVEL 142 MMOL/L (136-145)
[2023-03-25] MEDS: BUDESONIDE 0.5 MG/2 ML INHALATION SUSPENSION INH SCH ×2 (08:06→19:24)
[2023-03-25] MEDS: ACETAMINOPHEN TAB 650MG DOSE (2X325MG) PO PRN (08:56)
[2023-03-25] MEDS: ASPIRIN 81MG ENTERIC TABLET PO SCH (08:56)
[2023-03-25] MEDS: SOTALOL 40MG PER 1/2 TABLET PO SCH ×2 (08:56→21:02)
[2023-03-25] MEDS: SPIRONOLACTONE 25 MG TAB PO SCH (08:57)
[2023-03-25] MEDS: CLOPIDOGREL 75 MG TAB PO SCH (08:57)
[2023-03-25] MEDS: VENLAFAXINE 37.5 MG TAB PO SCH (08:57)
[2023-03-25] MEDS: VENLAFAXINE **XR** 75MG CAPSULE PO SCH (08:57)
[2023-03-25] MEDS ORDERED: METHENAMINE HIPPURATE 1GM TABLET PO SCH (09:00)
[2023-03-25] MEDS: CEFEPIME HCL 2 GM in D5W MINI-BAG PLUS 50 ML IV SCH ×2 (10:31→17:58)
[2023-03-25] MEDS: DEXTROMETHORPHAN 60MG/10ML SUSP 90ML BTL(DELSYM) PO SCH ×2 (11:27→21:00)
[2023-03-25] MEDS ORDERED: cefTRIAXone SOD 1 GM in D5W MINI-BAG PLUS 50 ML IV SCH (21:00)
[2023-03-25] MEDS ORDERED: ATORVASTATIN 20 MG TAB PO SCH (21:00)
[2023-03-26] MEDS: CEFEPIME HCL 2 GM in D5W MINI-BAG PLUS 50 ML IV SCH ×2 (02:43→09:32)
[2023-03-26] MEDS: ALBUTEROL SULFATE 2.5MG/0.5ML INH NEB SOLN NEB SCH ×3 (04:25→11:19)
[2023-03-26] MEDS: BENZONATATE 100MG CAPSULE PO PRN (04:38)
[2023-03-26 06:00] VITALS: BP 141/72; TEMP 97.7; O2SAT 91
[2023-03-26 06:36] LABS: BASO % 0.7 % (0.0-1.0); EOS # 0.3 10^3/uL (0.0-0.5); EOS % 5.6 % (0.0-3.0); HEMATOCRIT 34.1 % (36.0-47.0); HEMOGLOBIN 11.8 g/dl (12.0-15.5); LYMPH # 1.6 10^3/uL (1.5-5.0); LYMPH % 28.6 % (24.0-44.0); MEAN CORPUSCULAR HEMOGLOBIN 31.4 pg (27.0-33.0); MEAN CORPUSCULAR HGB CONC 34.6 g/dl (32.0-36.5); MEAN CORPUSCULAR VOLUME 90.7 fl (80.0-96.0); MONO # 0.4 10^3/uL (0.0-0.8); MONO % 6.9 % (2.0-8.0); NEUTROPHILS # 3.1 10^3/uL (1.5-8.5); NEUTROPHILS % 57.3 % (36.0-66.0); PLATELET COUNT, AUTOMATED 181 10^3/uL (150-450); RED BLOOD COUNT 3.76 10^6/uL (4.00-5.40); WHITE BLOOD COUNT 5.5 10^3/uL (4.0-10.0)
[2023-03-26 07:04] LABS: BLOOD UREA NITROGEN 14 MG/DL (9-23); CALCIUM LEVEL 8.1 MG/DL (8.3-10.6); CARBON DIOXIDE LEVEL 29 MMOL/L (20-31); CHLORIDE LEVEL 105 MMOL/L (98-107); CREATININE FOR GFR 0.57 MG/DL (0.55-1.30); GLOMERULAR FILTRATION RATE > 60.0 (>45); GLUCOSE, FASTING 234 MG/DL (74-106); POTASSIUM SERUM 3.6 MMOL/L (3.5-5.1); SODIUM LEVEL 141 MMOL/L (136-145)
[2023-03-26 07:50] VITALS: O2SAT 96
[2023-03-26] MEDS: BUDESONIDE 0.5 MG/2 ML INHALATION SUSPENSION INH SCH (07:51)
[2023-03-26] MEDS ORDERED: GLUCOSE 4GM CHEW TABLET PO PRN (08:00)
[2023-03-26] MEDS ORDERED: GLUCAGON INJ 1MG VIAL SC PRN (08:00)
[2023-03-26] MEDS ORDERED: DEXTROSE 50% 50ML SYRINGE IV PRN (08:00)
[2023-03-26] MEDS ORDERED: LEVEMIR (INSULIN DETEMIR) 1 UNITS/0.01ML SC SCH (09:00)
[2023-03-26 09:32] VITALS: BP 115/61
[2023-03-26] MEDS: ASPIRIN 81MG ENTERIC TABLET PO SCH (09:32)
[2023-03-26] MEDS: ACETAMINOPHEN TAB 650MG DOSE (2X325MG) PO PRN (09:32)
[2023-03-26] MEDS: INSULIN LISPRO (NovoLOG) PER UNIT SC SCH ×2 (09:32→12:28)
[2023-03-26] MEDS: SOTALOL 40MG PER 1/2 TABLET PO SCH (09:32)
[2023-03-26] MEDS: CLOPIDOGREL 75 MG TAB PO SCH (09:33)
[2023-03-26] MEDS: DOXYCYCLINE HYCLATE 100MG TABLET PO SCH (09:33)
[2023-03-26] MEDS: VENLAFAXINE 37.5 MG TAB PO SCH (09:33)
[2023-03-26] MEDS: VENLAFAXINE **XR** 75MG CAPSULE PO SCH (09:33)
[2023-03-26] MEDS: SPIRONOLACTONE 25 MG TAB PO SCH (09:33)
[2023-03-26] MEDS: DEXTROMETHORPHAN 60MG/10ML SUSP 90ML BTL(DELSYM) PO SCH (09:53)
[2023-03-26 11:21] VITALS: O2SAT 97
[2023-03-26] MEDS ORDERED: DOXY100T PO ×2 (11:49→13:38)
[2023-03-26] MEDS ORDERED: DELS30LI8 PO ×2 (11:49→13:38)
[2023-03-26] MEDS ORDERED: BLOOKIT21 XX ×2 (11:55→13:38)
[2023-03-26] MEDS ORDERED: METF500T13 PO ×2 (11:55→13:50)
[2023-03-26] MEDS ORDERED: ALCOPAD25 TOP ×2 (11:55→13:38)
[2023-03-26] MEDS ORDERED: GLUC1TES2 XX ×2 (11:56→13:38)
[2023-03-26] MEDS ORDERED: LANC30MI XX ×2 (11:56→13:38)
[2023-03-26 13:44] VITALS: BP 122/60; TEMP 97.5; O2SAT 96
[2023-03-26] MEDS ORDERED: SEMA0.257 SQ (14:03)
[2023-03-26] MEDS ORDERED: INSULIN LISPRO (NovoLOG) PER UNIT SC SCH (21:00)
== END 2023-03-26 15:20 | disposition home or self-care (01) | DRG 193 ==
LOC: M ED 17:33 → M ED INP 21:07 → M MSPAV 03-25 01:46
PROVIDERS: ADMIT Internal Medicine; ATTEND Internal Medicine Nephrology
DX: J18.9 Pneumonia, unspecified organism (principal); J96.01 Acute respiratory failure with hypoxia; J96.02 Acute respiratory failure with hypercapnia; E87.29 Other acidosis; I10 Essential (primary) hypertension; K21.9 Gastro-esophageal reflux disease without esophagitis; E09.9 Drug or chemical induced diabetes mellitus without complications; M35.00 Sjogren syndrome, unspecified; N31.9 Neuromuscular dysfunction of bladder, unspecified; M06.9 Rheumatoid arthritis, unspecified; E83.42 Hypomagnesemia; K58.0 Irritable bowel syndrome with diarrhea; F41.9 Anxiety disorder, unspecified; E78.5 Hyperlipidemia, unspecified; M79.7 Fibromyalgia; I48.0 Paroxysmal atrial fibrillation; Z95.810 Presence of automatic (implantable) cardiac defibrillator; Z90.79 Acquired absence of other genital organ(s); Z90.49 Acquired absence of other specified parts of digestive tract; Z96.611 Presence of right artificial shoulder joint; Z79.82 Long term (current) use of aspirin; Z79.2 Long term (current) use of antibiotics; Z79.899 Other long term (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; Z88.1 Allergy status to other antibiotic agents; Z91.030 Bee allergy status; Z98.84 Bariatric surgery status

== ENCOUNTER → 2023-04-09 | Outpatient (REF) | payer MEDICARE, BC, OTHER ==
[~2023-04-09] MED LIST changes: +ALCOPAD25 TOP; +ASPI-161 PO; +ASPI81TA26 PO; +BENZ-18 PO; +BLOOKIT21 XX; +CLON1TAB8; +CLOP75TA99 PO; +DELS30LI8 PO; +DICY20TA20; +DICY20TA3 PO; +GLUC1TES2 XX; +HYDR-643 PO; +LANC30MI XX; +LEUC5TAB PO; +LEVA45AE INH; +METF500T13 PO; +METH-855; +METH-855 PO; +OMEG10002 PO; +SEMA0.257 SQ; +SOTA80TA32 PO; +TRIA1CR80 TOP; +VENL75TA2 PO; +VITA500C24 PO
== END ==
LOC: M SFHCWAGY 17:57
PROVIDERS: ATTEND Nurse Practitioner Family
DX: Z12.4 Encounter for screening for malignant neoplasm of cervix (principal); N95.2 Postmenopausal atrophic vaginitis

== ENCOUNTER → 2023-05-22 | Outpatient (REF) | payer MEDICARE, OTHER | LOC: M LAB REF 10:09 | PROVIDERS: ATTEND Physician Assistant | DX: R30.0 Dysuria (principal) ==

== ENCOUNTER → 2023-06-22 | Outpatient (CLI) | payer MEDICARE, BC ==
[2023-06-22 14:11] LABS: BASO # 0.1 10^3/uL (0.0-0.2); BASO % 0.9 % (0.0-1.0); EOS # 0.2 10^3/uL (0.0-0.5); EOS % 2.8 % (0.0-3.0); HEMATOCRIT 37.5 % (36.0-47.0); HEMOGLOBIN 12.8 g/dl (12.0-15.5); LYMPH # 1.8 10^3/uL (1.5-5.0); MEAN CORPUSCULAR HEMOGLOBIN 31.4 pg (27.0-33.0); MEAN CORPUSCULAR HGB CONC 34.1 g/dl (32.0-36.5); MEAN CORPUSCULAR VOLUME 92.1 fl (80.0-96.0); MONO # 0.6 10^3/uL (0.0-0.8); MONO % 7.2 % (2.0-8.0); NEUTROPHILS # 5.3 10^3/uL (1.5-8.5); NEUTROPHILS % 66.7 % (36.0-66.0); PLATELET COUNT, AUTOMATED 226 10^3/uL (150-450); RED BLOOD COUNT 4.07 10^6/uL (4.00-5.40)
[2023-06-22 14:31] LABS: C REACTIVE PROTEIN QUANTITATIV < 0.40 MG/DL (<1.0)
[2023-06-22 14:32] LABS: ALT/SGPT 18 U/L (7.0-40); AST/SGOT 16 U/L (<34); BLOOD UREA NITROGEN 13 MG/DL (9-23); CREATININE FOR GFR 0.59 MG/DL (0.55-1.30); GLOMERULAR FILTRATION RATE > 60.0 (>45)
[2023-06-22 15:13] LABS: ERYTHROCYTE SEDIMENTATION RATE 24 mm/hr (0-30)
== END ==
LOC: M LAB 13:25
PROVIDERS: ATTEND Physician Assistant
DX: Z79.899 Other long term (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 (principal); M06.9 Rheumatoid arthritis, unspecified; M35.00 Sjogren syndrome, unspecified; Z79.52 Long term (current) use of systemic steroids

== ENCOUNTER 2023-07-31 12:59 | Emergency (ER) | payer MEDICARE, BC, OTHER ==
[~2023-07-31] VITALS: Ht 162.6 cm; Wt 92.7 kg
[~2023-07-31 12:59] MED LIST changes: -ASPI-161 PO; +ASPI-615 PO; -KLON0.5T PO; +KLON0.5T8 PO
[2023-07-31] MEDS: ANEXSIA, NORCO 7.5MG/325MG TABLET(HYDROCODONE/APAP) PO ONE (14:10)
[2023-07-31] MEDS: NS 1,000 ML IV ONE ×2 (14:46→15:45)
[2023-07-31] MEDS ORDERED: MED REC IN PROGRESS XX SCH (14:50)
[2023-07-31 14:52] LABS: VENOUS BASE EXCESS -0.4 (-2.0-2.0); VENOUS HCO3 23.9 MMOL/L (23.0-27.0); VENOUS O2 SATURATION 87.3 % (60.0-80.0); VENOUS PARTIAL PRESSURE CO2 38.2 mmHg (38.0-50.0); VENOUS PARTIAL PRESSURE O2 48.9 mmHg (30.0-50.0); VENOUS PH 7.415 UNITS (7.330-7.430); VENOUS TOTAL CO2 25.1 MMOL/L (24.0-28.0)
[2023-07-31 14:57] LABS: HEMATOCRIT 37.3 % (36.0-47.0); HEMOGLOBIN 12.7 g/dl (12.0-15.5); MEAN CORPUSCULAR HEMOGLOBIN 30.6 pg (27.0-33.0); MEAN CORPUSCULAR VOLUME 89.9 fl (80.0-96.0); PLATELET COUNT, AUTOMATED 250 10^3/uL (150-450); RED BLOOD COUNT 4.15 10^6/uL (4.00-5.40); WHITE BLOOD COUNT 2.4 10^3/uL (4.0-10.0)
[2023-07-31 15:08] LABS: INR 1.2; PROTHROMBIN TIME 14.8 SECONDS (12.5-14.5)
[2023-07-31] MEDS ORDERED: METF500T13 PO (15:26)
[2023-07-31 15:28] LABS: CK-MB VALUE MASS < 1.0 NG/ML (<3.6)
[2023-07-31 15:30] LABS: ALBUMIN 3.2 G/DL (3.2-5.2); ALKALINE PHOSPHATASE 76 U/L (46-116); ALT/SGPT 16 U/L (7.0-40); AST/SGOT 14 U/L (<34); BILIRUBIN,DIRECT 0.2 MG/DL (<0.4); BILIRUBIN,TOTAL 0.5 MG/DL (0.3-1.2); BLOOD UREA NITROGEN 10 MG/DL (9-23); CALCIUM LEVEL 8.6 MG/DL (8.3-10.6); CARBON DIOXIDE LEVEL 29 MMOL/L (20-31); CHLORIDE LEVEL 102 MMOL/L (98-107); CPK CREATINE PHOSPHOKINASE 48 U/L (34-145); CREATININE FOR GFR 0.57 MG/DL (0.55-1.30); GLOMERULAR FILTRATION RATE > 60.0 (>45); GLUCOSE, FASTING 170 MG/DL (74-106); MB/CK RELATIVE INDEX 2.08 (< OR =4); POTASSIUM SERUM 3.8 MMOL/L (3.5-5.1); SODIUM LEVEL 137 MMOL/L (136-145); TOTAL PROTEIN 6.7 G/DL (5.7-8.2)
[2023-07-31 15:32] LABS: THYROID STIMULATING HORMONE 0.733 uIU/ML (0.55-4.78); THYROXINE (T4) 8.9 UG/DL (4.5-10.9)
[2023-07-31] MEDS ORDERED: AZIT-12 PO (15:35)
[2023-07-31 15:43] LABS: ATYPICAL LYMPH 27 % (0-5); BASOPHILS 3 % (0-1); EOSINOPHILS 3 % (0-3); LYMPHOCYTES 9 % (16-44); MONOCYTES 54 % (0-5); PLATELET ESTIMATE NORMAL (NORMAL); SMUDGE CELLS 1+; TOXIC VACUOLATION 1+
[2023-07-31] MEDS ORDERED: PRED5TA PO (15:44)
[2023-07-31] MEDS ORDERED: BREO1INH INH (15:44)
[2023-07-31] MEDS ORDERED: HOME MED LIST COMPLETE! XX SCH (16:20)
[2023-07-31 16:28] LABS: NEUTROPHILS 4 % (28-66)
[2023-07-31 17:01] VITALS: BP 113/63
[2023-07-31] MEDS ORDERED: DOXY100C82 PO (17:10)
[2023-07-31 17:16] VITALS: TEMP 99.4; O2SAT 97
[2023-07-31 17:34] LABS: AMPHETAMINES LEVEL URINE NEGATIVE (NEGATIVE)
[2023-07-31 17:35] LABS: BARBITURATES URINE NEGATIVE (NEGATIVE); BENZODIAZEPINES URINE NEGATIVE (NEGATIVE); CANNABINOIDS URINE NEGATIVE (NEGATIVE); COCAINE METABOLITE URINE NEGATIVE (NEGATIVE); METHADONE URINE NEGATIVE (NEGATIVE); PHENCYCLIDINE URINE NEGATIVE (NEGATIVE)
[2023-07-31 17:44] LABS: OPIATES URINE POSITIVE (NEGATIVE)
== END 2023-07-31 17:46 | disposition home or self-care (01) ==
LOC: M ED 12:59
DX: J06.9 Acute upper respiratory infection, unspecified (principal); R00.0 Tachycardia, unspecified; I45.10 Unspecified right bundle-branch block; I10 Essential (primary) hypertension; K21.9 Gastro-esophageal reflux disease without esophagitis; M79.7 Fibromyalgia; F41.9 Anxiety disorder, unspecified; M08.20 Juvenile rheumatoid arthritis with systemic onset, unspecified site; Z98.84 Bariatric surgery status; Z88.1 Allergy status to other antibiotic agents; Z91.030 Bee allergy status; Z79.82 Long term (current) use of aspirin; Z79.02 Long term (current) use of antithrombotics/antiplatelets; Z79.811 Long term (current) use of aromatase inhibitors; Z79.4 Long term (current) use of insulin; Z79.899 Other long term (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; Z79.01 Long term (current) use of anticoagulants

== ENCOUNTER → 2023-09-28 | Outpatient (REF) | payer MEDICARE, BC, OTHER ==
[~2023-09-28] MED LIST changes: +AZIT-12 PO; +BREO1INH INH; +DOXY100C82 PO
== END ==
LOC: M LAB REF 16:40
PROVIDERS: ATTEND Internal Medicine
DX: R30.0 Dysuria (principal)

== ENCOUNTER → 2023-10-23 | Outpatient (REF) | payer MEDICARE, BC, OTHER | LOC: M LAB REF 16:40 | PROVIDERS: ATTEND Nurse Practitioner Family | DX: N39.0 Urinary tract infection, site not specified (principal) ==

== ENCOUNTER → 2023-12-04 | Outpatient (REF) | payer MEDICARE, OTHER | LOC: M LAB REF 15:52 | PROVIDERS: ATTEND Internal Medicine Pulmonary Disease | DX: R05.9 Cough, unspecified (principal) ==

== ENCOUNTER → 2023-12-07 | Outpatient (CLI) | payer MEDICARE, OTHER | LOC: M PLAIMG 11:31 | PROVIDERS: ATTEND Internal Medicine Pulmonary Disease | DX: R05.9 Cough, unspecified (principal) ==

== ENCOUNTER → 2023-12-28 | Outpatient (REF) | payer MEDICARE, OTHER, BC | LOC: M LAB REF 16:11 | PROVIDERS: ATTEND Internal Medicine | DX: M06.9 Rheumatoid arthritis, unspecified (principal) ==

== ENCOUNTER 2024-02-25 14:33 | Emergency (ER) | payer MEDICARE, BC ==
[~2024-02-25] VITALS: Ht 162.6 cm; Wt 96.4 kg
[2024-02-25 16:46] LABS: VENOUS BASE EXCESS -0.7 (-2.0-2.0); VENOUS HCO3 26.2 MMOL/L (23.0-27.0); VENOUS O2 SATURATION 62.3 % (60.0-80.0); VENOUS PARTIAL PRESSURE CO2 51.7 mmHg (38.0-50.0); VENOUS PH 7.323 UNITS (7.330-7.430); VENOUS STANDARD HCO3 23.1 MMOL/L; VENOUS TOTAL CO2 27.8 MMOL/L (24.0-28.0)
[2024-02-25 17:19] LABS: CK-MB VALUE MASS < 1.0 NG/ML (<3.6)
[2024-02-25 17:21] LABS: ALBUMIN 3.5 G/DL (3.2-5.2); ALKALINE PHOSPHATASE 93 U/L (46-116); ALT/SGPT 26 U/L (7.0-40); AST/SGOT 20 U/L (<34); BILIRUBIN,DIRECT 0.1 MG/DL (<0.4); BILIRUBIN,TOTAL 0.5 MG/DL (0.3-1.2); BLOOD UREA NITROGEN 19 MG/DL (9-23); CALCIUM LEVEL 8.7 MG/DL (8.3-10.6); CARBON DIOXIDE LEVEL 30 MMOL/L (20-31); CHLORIDE LEVEL 104 MMOL/L (98-107); CREATININE FOR GFR 0.63 MG/DL (0.55-1.30); GLOMERULAR FILTRATION RATE > 60.0 (>45); GLUCOSE, FASTING 199 MG/DL (74-106); HEMATOCRIT 41.9 % (36.0-47.0); HEMOGLOBIN 14.1 g/dl (12.0-15.5); MEAN CORPUSCULAR HEMOGLOBIN 30.9 pg (27.0-33.0); MEAN CORPUSCULAR HGB CONC 33.7 g/dl (32.0-36.5); MEAN CORPUSCULAR VOLUME 91.7 fl (80.0-96.0); PLATELET COUNT, AUTOMATED 187 10^3/uL (150-450); POTASSIUM SERUM 4.2 MMOL/L (3.5-5.1); RED BLOOD COUNT 4.57 10^6/uL (4.00-5.40); SODIUM LEVEL 138 MMOL/L (136-145); TOTAL PROTEIN 6.7 G/DL (5.7-8.2)
[2024-02-25 17:22] LABS: THYROXINE (T4) 8.9 UG/DL (4.5-10.9)
[2024-02-25 17:23] LABS: THYROID STIMULATING HORMONE 1.059 uIU/ML (0.55-4.78)
[2024-02-25 17:25] LABS: CPK CREATINE PHOSPHOKINASE 34 U/L (34-145); MB/CK RELATIVE INDEX 2.94 (< OR =4)
[2024-02-25 17:46] LABS: EOSINOPHILS 2 % (0-3); LYMPHOCYTES 32 % (16-44); MONOCYTES 6 % (0-5); NEUTROPHILS 58 % (28-66)
[2024-02-25 17:47] LABS: PLATELET ESTIMATE NORMAL (NORMAL)
[2024-02-25] MEDS ORDERED: ISOVUE-370 76% 100ML VIAL As Ordered ONE (18:23)
[2024-02-25] MEDS: ALBUTEROL SULFATE 2.5MG/0.5ML INH NEB SOLN NEB ONE (19:13)
[2024-02-25] MEDS: NS 1,000 ML IV ONE (19:22)
[2024-02-25 19:51] VITALS: O2SAT 93
[2024-02-25 20:05] LABS: CK-MB VALUE MASS < 1.0 NG/ML (<3.6); CPK CREATINE PHOSPHOKINASE 64 U/L (34-145); MB/CK RELATIVE INDEX 1.56 (< OR =4)
[2024-02-25] MEDS ORDERED: LEVO750T14 PO (21:41)
[2024-02-25] MEDS: LevoFLOXacin 750 MG TABLET PO ONE (21:50)
[2024-02-25 21:56] VITALS: BP 137/60; TEMP 97.8; O2SAT 94
== END 2024-02-25 21:57 | disposition home or self-care (01) ==
LOC: M ED 14:33
DX: J18.9 Pneumonia, unspecified organism (principal); U07.1 COVID-19; R06.02 Shortness of breath; I10 Essential (primary) hypertension; G47.33 Obstructive sleep apnea (adult) (pediatric); G35 Multiple sclerosis; J45.909 Unspecified asthma, uncomplicated; M79.7 Fibromyalgia; M06.9 Rheumatoid arthritis, unspecified; Z76.89 Persons encountering health services in other specified circumstances; Z98.84 Bariatric surgery status; Z88.1 Allergy status to other antibiotic agents; Z91.030 Bee allergy status; Z79.82 Long term (current) use of aspirin; Z79.02 Long term (current) use of antithrombotics/antiplatelets; Z79.2 Long term (current) use of antibiotics; Z79.4 Long term (current) use of insulin; Z79.899 Other long term (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; Z79.52 Long term (current) use of systemic steroids
CPT/HCPCS: 71046; 71275; 80048; 80076; 82550; 82553; 82803; 83605; 83880; 84436; 84443; 84484; 85025; 87486; 87581; 87633; 87798; 93005; 94640; 96360; 99284; Q9967

== ENCOUNTER 2024-03-19 19:27 | Inpatient (IN) | payer MEDICARE, BC ==
[~2024-03-19] VITALS: Ht 162.6 cm; Wt 98.1 kg
[~2024-03-19 19:27] MED LIST changes: +GABA-1172 PO; -GABA-282 PO; +LEVO750T14 PO
[2024-03-19 21:09] LABS: BASO # 0.1 10^3/uL (0.0-0.2); BASO % 0.8 % (0.0-1.0); EOS # 0.6 10^3/uL (0.0-0.5); EOS % 4.6 % (0.0-3.0); HEMATOCRIT 37.5 % (36.0-47.0); HEMOGLOBIN 12.3 g/dl (12.0-15.5); LYMPH # 2.6 10^3/uL (1.5-5.0); LYMPH % 21.6 % (24.0-44.0); MEAN CORPUSCULAR HEMOGLOBIN 30.1 pg (27.0-33.0); MEAN CORPUSCULAR HGB CONC 32.8 g/dl (32.0-36.5); MEAN CORPUSCULAR VOLUME 91.9 fl (80.0-96.0); MONO # 1.1 10^3/uL (0.0-0.8); MONO % 9.5 % (2.0-8.0); NEUTROPHILS # 7.5 10^3/uL (1.5-8.5); NEUTROPHILS % 62.8 % (36.0-66.0); PLATELET COUNT, AUTOMATED 223 10^3/uL (150-450); RED BLOOD COUNT 4.08 10^6/uL (4.00-5.40)
[2024-03-19] MEDS: LEVALBUTEROL 1.25MG 0.5ML CONCENTRATE NEB NEB ONE ×2 (21:25)
[2024-03-19 21:36] LABS: CK-MB VALUE MASS < 1.0 NG/ML (<3.6)
[2024-03-19 21:37] LABS: ALBUMIN 3.2 G/DL (3.2-5.2); ALKALINE PHOSPHATASE 71 U/L (46-116); ALT/SGPT 20 U/L (7.0-40); AST/SGOT 16 U/L (<34); BILIRUBIN,DIRECT 0.1 MG/DL (<0.4); BILIRUBIN,TOTAL 0.3 MG/DL (0.3-1.2); BLOOD UREA NITROGEN 23 MG/DL (9-23); CALCIUM LEVEL 9.1 MG/DL (8.3-10.6); CARBON DIOXIDE LEVEL 25 MMOL/L (20-31); CHLORIDE LEVEL 109 MMOL/L (98-107); CREATININE FOR GFR 0.87 MG/DL (0.55-1.30); GLOMERULAR FILTRATION RATE > 60.0 (>45); GLUCOSE, FASTING 184 MG/DL (74-106); POTASSIUM SERUM 4.3 MMOL/L (3.5-5.1); SODIUM LEVEL 140 MMOL/L (136-145); TOTAL PROTEIN 6.3 G/DL (5.7-8.2)
[2024-03-19 21:41] LABS: CPK CREATINE PHOSPHOKINASE 52 U/L (34-145); MB/CK RELATIVE INDEX 1.92 (< OR =4)
[2024-03-19] MEDS ORDERED: ISOVUE-370 76% 100ML VIAL As Ordered ONE (22:21)
[2024-03-20] MEDS: NS 1,000 ML IV ONE (00:40)
[2024-03-20] MEDS: LevoFLOXacin IV 750 MG in IV 1 EA IV ONE (00:50)
[2024-03-20] MEDS ORDERED: MED REC IN PROGRESS XX SCH (00:55)
[2024-03-20] MEDS ORDERED: MOM 30ML SUSPENSION UDC PO PRN (03:00)
[2024-03-20] MEDS ORDERED: ACETAMINOPHEN 325 MG TAB PO PRN (03:00)
[2024-03-20 04:10] VITALS: BP 126/62; TEMP 97.3; O2SAT 95
[2024-03-20] MEDS ORDERED: IPRA0.00 INH (04:17)
[2024-03-20] MEDS ORDERED: METH25IN12 INJ (04:17)
[2024-03-20] MEDS ORDERED: HYDR28.39 TOP (04:17)
[2024-03-20] MEDS ORDERED: BREO1INH3 INH (04:17)
[2024-03-20] MEDS ORDERED: ALBU8.5H INH (04:21)
[2024-03-20] MEDS ORDERED: HOME MED LIST COMPLETE! XX SCH (04:25)
[2024-03-20] MEDS: ASPIRIN 81MG CHEW TABLET PO ONE (04:49)
[2024-03-20] MEDS: PIPERACILLIN/TAZOBACTAM SOD 3.375 GM in DEXTROSE 5% (D5W) ADV/MINI-BAG 50 ML IV SCH (04:49)
[2024-03-20 06:44] LABS: HEMATOCRIT 35.9 % (36.0-47.0); HEMOGLOBIN 11.7 g/dl (12.0-15.5); MEAN CORPUSCULAR HEMOGLOBIN 30.7 pg (27.0-33.0); MEAN CORPUSCULAR HGB CONC 32.6 g/dl (32.0-36.5); MEAN CORPUSCULAR VOLUME 94.2 fl (80.0-96.0); PLATELET COUNT, AUTOMATED 178 10^3/uL (150-450); RED BLOOD COUNT 3.81 10^6/uL (4.00-5.40); WHITE BLOOD COUNT 6.8 10^3/uL (4.0-10.0)
[2024-03-20 06:58] LABS: BLOOD UREA NITROGEN 22 MG/DL (9-23); CALCIUM LEVEL 8.4 MG/DL (8.3-10.6); CARBON DIOXIDE LEVEL 28 MMOL/L (20-31); CHLORIDE LEVEL 107 MMOL/L (98-107); CREATININE FOR GFR 0.81 MG/DL (0.55-1.30); GLOMERULAR FILTRATION RATE > 60.0 (>45); GLUCOSE, FASTING 375 MG/DL (74-106); MAGNESIUM LEVEL 1.5 MG/DL (1.8-2.4); POTASSIUM SERUM 4.1 MMOL/L (3.5-5.1); SODIUM LEVEL 140 MMOL/L (136-145)
[2024-03-20] MEDS ORDERED: DEXTROSE 50% 50ML SYRINGE IV PRN (07:00)
[2024-03-20] MEDS ORDERED: GLUCAGON INJ 1MG VIAL SC PRN (07:00)
[2024-03-20] MEDS ORDERED: GLUCOSE 4 GM CHEW PO PRN (07:00)
[2024-03-20 08:00] VITALS: BP 107/60; TEMP 97.9; O2SAT 96
[2024-03-20] MEDS: ADVAIR HFA 115/21MCG INHALER INH SCH (08:16)
[2024-03-20] MEDS: VENLAFAXINE **XR** 75MG CAPSULE PO SCH (08:54)
[2024-03-20] MEDS: ATORVASTATIN 20 MG TAB PO SCH (08:54)
[2024-03-20] MEDS: VENLAFAXINE 37.5 MG TAB PO SCH (08:54)
[2024-03-20] MEDS: METHENAMINE HIPPURATE 1GM TABLET PO SCH (08:54)
[2024-03-20] MEDS: INSULIN LISPRO (NovoLOG) PER UNIT SC SCH (08:58)
[2024-03-20] MEDS: METOPROLOL TART 50 MG TAB PO SCH (08:58)
[2024-03-20] MEDS: SOTALOL HCL 80 MG TAB PO ONE (08:58)
[2024-03-20] MEDS ORDERED: SOTALOL 40MG PER 1/2 TABLET PO SCH (09:00)
[2024-03-20] MEDS: guaiFENesin ER TABLET 600 MG TAB PO SCH (09:24)
[2024-03-20] MEDS: CETIRIZINE (ZyrTEC) 10 MG TAB PO SCH (09:24)
[2024-03-20] MEDS: MONTELUKAST 10 MG TAB PO SCH (09:24)
[2024-03-20 12:00] VITALS: BP 136/79; TEMP 97.5; O2SAT 98
[2024-03-20 16:00] VITALS: BP 135/80; TEMP 97.9; O2SAT 91
[2024-03-20] MEDS: ANEXSIA, NORCO 7.5MG/325MG TABLET(HYDROCODONE/APAP) PO PRN (17:55)
[2024-03-20] MEDS: IPRATROPIUM 0.5MG/ALBUTEROL 2.5MG INH SOL UD 3ML (DUONEB) NEB PRN (18:00)
[2024-03-20] MEDS: clonazePAM 1 MG TAB PO SCH (20:20)
[2024-03-20] MEDS: SOTALOL 40MG PER 1/2 TABLET PO SCH (20:29)
[2024-03-20 20:30] VITALS: BP 124/86; TEMP 97.3; O2SAT 94
[2024-03-21 03:48] VITALS: BP 114/78; TEMP 97.6; O2SAT 95
[2024-03-21 06:28] LABS: HEMATOCRIT 35.5 % (36.0-47.0); HEMOGLOBIN 11.7 g/dl (12.0-15.5); MEAN CORPUSCULAR HEMOGLOBIN 30.5 pg (27.0-33.0); MEAN CORPUSCULAR VOLUME 92.7 fl (80.0-96.0); PLATELET COUNT, AUTOMATED 176 10^3/uL (150-450); RED BLOOD COUNT 3.83 10^6/uL (4.00-5.40); WHITE BLOOD COUNT 5.4 10^3/uL (4.0-10.0)
[2024-03-21 06:58] LABS: BLOOD UREA NITROGEN 19 MG/DL (9-23); CALCIUM LEVEL 8.3 MG/DL (8.3-10.6); CARBON DIOXIDE LEVEL 29 MMOL/L (20-31); CHLORIDE LEVEL 106 MMOL/L (98-107); CREATININE FOR GFR 0.59 MG/DL (0.55-1.30); GLOMERULAR FILTRATION RATE > 60.0 (>45); GLUCOSE, FASTING 214 MG/DL (74-106); MAGNESIUM LEVEL 1.5 MG/DL (1.8-2.4); POTASSIUM SERUM 3.6 MMOL/L (3.5-5.1); SODIUM LEVEL 141 MMOL/L (136-145)
[2024-03-21] MEDS: ASPIRIN 81MG CHEW TABLET PEG SCH (08:10)
[2024-03-21] MEDS: POTASSIUM CHLORIDE 10MEQ SR TABLET PO ONE (08:11)
[2024-03-21] MEDS: MAG SULF 1GM/100ML (MAG RUN) 1 GM in IV 1 EA IV SCH (08:23)
[2024-03-21 09:26] VITALS: BP 101/55
[2024-03-21] MEDS ORDERED: LEVALBUTEROL 1.25MG 0.5ML CONCENTRATE NEB INH PRN (10:50)
[2024-03-21] MEDS ORDERED: MAG SULF 1GM/100ML (MAG RUN) 1 GM in IV 1 EA IV SCH (10:55)
[2024-03-21] MEDS: FORMOTEROL FUMARATE 20 MCG/2 ML INHALATION SOLUTION (PERFOROMIST) INH SCH (11:26)
[2024-03-21] MEDS: LEVALBUTEROL 1.25MG 0.5ML CONCENTRATE NEB INH SCH (11:26)
[2024-03-21] MEDS: GLYCOPYRROLATE INJ 0.2 MG/ML 2 ML VIAL NEB SCH (11:26)
[2024-03-21 12:00] VITALS: BP 108/62; TEMP 97.3; O2SAT 94
[2024-03-21] MEDS: DOXYCYCLINE HYCLATE 100MG TABLET PO SCH (12:21)
[2024-03-21] MEDS: methylPREDNISolone 125MG 2ML VIAL IV ONE (12:22)
[2024-03-21 14:19] LABS: IONIZED CALCIUM 4.4 MG/DL (4.5-5.3)
[2024-03-21 14:46] LABS: IMMUNOGLOBULIN A 101.9 MG/DL (40-350); IMMUNOGLOBULIN G 572 MG/DL (650-1600)
[2024-03-21 14:53] LABS: MAGNESIUM LEVEL 1.8 MG/DL (1.8-2.4); POTASSIUM SERUM 4.1 MMOL/L (3.5-5.1)
[2024-03-21] MEDS: MAGNESIUM OXIDE 400MG TAB (MAG-OX) PO SCH (15:00)
[2024-03-21 15:23] LABS: PROCALCITONIN 0.06 ng/ml
[2024-03-21] MEDS: cefTRIAXone SOD 2 GM in DEXTROSE 5% (D5W) ADV/MINI-BAG 50 ML IV SCH (16:44)
[2024-03-21] MEDS: methylPREDNISolone 40MG 1ML VIAL IV SCH (16:44)
[2024-03-21 19:53] VITALS: BP 120/65; TEMP 97.3; O2SAT 94
[2024-03-21] MEDS: INSULIN LISPRO (NovoLOG) PER UNIT SC SCH (21:05)
[2024-03-21] MEDS: guaiFENesin DM LIQ 10ML UD PO PRN (23:38)
[2024-03-22] VITALS (10 sets, daily range): BP systolic 107–145; BP diastolic 50–96; TEMP 97–97.2; O2SAT 83–96
[2024-03-22 05:27] LABS: HEMATOCRIT 34.3 % (36.0-47.0); HEMOGLOBIN 11.5 g/dl (12.0-15.5); MEAN CORPUSCULAR HEMOGLOBIN 30.7 pg (27.0-33.0); MEAN CORPUSCULAR HGB CONC 33.5 g/dl (32.0-36.5); MEAN CORPUSCULAR VOLUME 91.5 fl (80.0-96.0); PLATELET COUNT, AUTOMATED 178 10^3/uL (150-450); RED BLOOD COUNT 3.75 10^6/uL (4.00-5.40); WHITE BLOOD COUNT 6.1 10^3/uL (4.0-10.0)
[2024-03-22 05:59] LABS: BLOOD UREA NITROGEN 21 MG/DL (9-23); CALCIUM LEVEL 8.4 MG/DL (8.3-10.6); CARBON DIOXIDE LEVEL 25 MMOL/L (20-31); CHLORIDE LEVEL 106 MMOL/L (98-107); CREATININE FOR GFR 0.52 MG/DL (0.55-1.30); GLOMERULAR FILTRATION RATE > 60.0 (>45); GLUCOSE, FASTING 405 MG/DL (74-106); MAGNESIUM LEVEL 2.1 MG/DL (1.8-2.4); POTASSIUM SERUM 4.2 MMOL/L (3.5-5.1); SODIUM LEVEL 137 MMOL/L (136-145)
[2024-03-22 13:59] LABS: HEMOGLOBIN A1c 10.7 % (4.0-6.0)
[2024-03-22] MEDS: methylPREDNISolone 40MG 1ML VIAL IV SCH (17:31)
[2024-03-23 04:00] VITALS: BP 114/68; TEMP 97.2; O2SAT 93
[2024-03-23 05:00] VITALS: O2SAT 95
[2024-03-23 05:10] VITALS: O2SAT 91
[2024-03-23 06:23] LABS: BASO % 0.2 % (0.0-1.0); EOS % 0.1 % (0.0-3.0); HEMATOCRIT 33.6 % (36.0-47.0); HEMOGLOBIN 11.3 g/dl (12.0-15.5); LYMPH # 1.5 10^3/uL (1.5-5.0); LYMPH % 12.8 % (24.0-44.0); MEAN CORPUSCULAR HEMOGLOBIN 30.9 pg (27.0-33.0); MEAN CORPUSCULAR HGB CONC 33.6 g/dl (32.0-36.5); MEAN CORPUSCULAR VOLUME 91.8 fl (80.0-96.0); MONO # 0.3 10^3/uL (0.0-0.8); MONO % 2.6 % (2.0-8.0); NEUTROPHILS # 9.6 10^3/uL (1.5-8.5); NEUTROPHILS % 83.3 % (36.0-66.0); PLATELET COUNT, AUTOMATED 184 10^3/uL (150-450); RED BLOOD COUNT 3.66 10^6/uL (4.00-5.40); WHITE BLOOD COUNT 11.5 10^3/uL (4.0-10.0)
[2024-03-23 06:40] LABS: BLOOD UREA NITROGEN 28 MG/DL (9-23); CALCIUM LEVEL 8.6 MG/DL (8.3-10.6); CARBON DIOXIDE LEVEL 27 MMOL/L (20-31); CHLORIDE LEVEL 107 MMOL/L (98-107); CREATININE FOR GFR 0.62 MG/DL (0.55-1.30); GLOMERULAR FILTRATION RATE > 60.0 (>45); GLUCOSE, FASTING 351 MG/DL (74-106); MAGNESIUM LEVEL 1.8 MG/DL (1.8-2.4); SODIUM LEVEL 139 MMOL/L (136-145)
[2024-03-23] MEDS: LEVEMIR (INSULIN DETEMIR) 1 UNITS/0.01ML SC SCH ×2 (09:21→21:05)
[2024-03-23] MEDS: MAG SULF 1GM/100ML (MAG RUN) 1 GM in IV 1 EA IV SCH ×2 (09:21→15:00)
[2024-03-23 12:00] VITALS: BP 118/62; TEMP 97.5; O2SAT 91
[2024-03-23 13:54] VITALS: O2SAT 94
[2024-03-23 20:00] VITALS: BP 130/72; TEMP 97.7; O2SAT 90
[2024-03-23] MEDS: CEFDINIR 300 MG CAP (OMNICEF) PO SCH (20:59)
[2024-03-24 00:22] VITALS: O2SAT 81
[2024-03-24 00:23] VITALS: O2SAT 91
[2024-03-24 04:00] VITALS: BP 132/71; TEMP 98.1; O2SAT 92
[2024-03-24 05:52] LABS: HEMATOCRIT 33.3 % (36.0-47.0); HEMOGLOBIN 11.1 g/dl (12.0-15.5); MEAN CORPUSCULAR HEMOGLOBIN 30.8 pg (27.0-33.0); MEAN CORPUSCULAR HGB CONC 33.3 g/dl (32.0-36.5); MEAN CORPUSCULAR VOLUME 92.5 fl (80.0-96.0); PLATELET COUNT, AUTOMATED 171 10^3/uL (150-450); WHITE BLOOD COUNT 11.1 10^3/uL (4.0-10.0)
[2024-03-24 06:10] LABS: BLOOD UREA NITROGEN 30 MG/DL (9-23); CALCIUM LEVEL 8.4 MG/DL (8.3-10.6); CARBON DIOXIDE LEVEL 29 MMOL/L (20-31); CHLORIDE LEVEL 107 MMOL/L (98-107); GLOMERULAR FILTRATION RATE > 60.0 (>45); GLUCOSE, FASTING 353 MG/DL (74-106); MAGNESIUM LEVEL 1.9 MG/DL (1.8-2.4); SODIUM LEVEL 140 MMOL/L (136-145)
[2024-03-24] MEDS: INSULIN LISPRO (NovoLOG) PER UNIT SC SCH ×3 (09:39→21:24)
[2024-03-24 10:57] VITALS: O2SAT 96
[2024-03-24 12:00] VITALS: BP 121/85; TEMP 97; O2SAT 95
[2024-03-24] MEDS: methylPREDNISolone 40MG 1ML VIAL IV SCH (17:45)
[2024-03-24 18:21] LABS: FUNGITELL INTERPRETATION NEGATIVE (NEGATIVE); FUNGITELL, SERUM 33 pg/mL (<60)
[2024-03-24 20:24] VITALS: BP 125/85; TEMP 97.2; O2SAT 94
[2024-03-25 04:00] VITALS: BP 125/86; TEMP 97; O2SAT 95
[2024-03-25 06:05] LABS: HEMATOCRIT 32.3 % (36.0-47.0); HEMOGLOBIN 10.7 g/dl (12.0-15.5); MEAN CORPUSCULAR HEMOGLOBIN 30.3 pg (27.0-33.0); MEAN CORPUSCULAR HGB CONC 33.1 g/dl (32.0-36.5); MEAN CORPUSCULAR VOLUME 91.5 fl (80.0-96.0); PLATELET COUNT, AUTOMATED 168 10^3/uL (150-450); RED BLOOD COUNT 3.53 10^6/uL (4.00-5.40); WHITE BLOOD COUNT 8.4 10^3/uL (4.0-10.0)
[2024-03-25 06:49] LABS: HYPOCHROMASIA 1+; LYMPHOCYTES 32 % (16-44); MONOCYTES 6 % (0-5); NEUTROPHILS 62 % (28-66); PLATELET ESTIMATE NORMAL (NORMAL)
[2024-03-25 06:50] LABS: ANISOCYTOSIS 1+; OVALOCYTES 1+; POIKILOCYTOSIS 1+; POLYCHROMASIA 1+
[2024-03-25 07:57] LABS: C REACTIVE PROTEIN QUANTITATIV < 0.40 MG/DL (<1.0)
[2024-03-25 08:11] LABS: PROCALCITONIN <0.04 ng/ml
[2024-03-25 08:15] LABS: BLOOD UREA NITROGEN 30 MG/DL (9-23); CARBON DIOXIDE LEVEL 32 MMOL/L (20-31); CHLORIDE LEVEL 107 MMOL/L (98-107); CREATININE FOR GFR 0.54 MG/DL (0.55-1.30); GLOMERULAR FILTRATION RATE > 60.0 (>45); GLUCOSE, FASTING 240 MG/DL (74-106); MAGNESIUM LEVEL 1.9 MG/DL (1.8-2.4); POTASSIUM SERUM 3.4 MMOL/L (3.5-5.1); SODIUM LEVEL 142 MMOL/L (136-145)
[2024-03-25 08:49] VITALS: BP 136/82
[2024-03-25] MEDS ORDERED: GLUCMIS7 XX (11:48)
[2024-03-25] MEDS ORDERED: MAGN400T2 PO (11:48)
[2024-03-25] MEDS ORDERED: MUCI600T31 PO (11:48)
[2024-03-25] MEDS ORDERED: DOXY100T PO (11:48)
[2024-03-25] MEDS ORDERED: PRED20TA PO (11:48)
[2024-03-25] MEDS ORDERED: CEFD300CAP PO (11:48)
[2024-03-25] MEDS ORDERED: MONT10TA97 PO (11:48)
[2024-03-25] MEDS ORDERED: INSUDET SC (11:53)
[2024-03-25] MEDS ORDERED: CHOL1STR MC (11:53)
[2024-03-25] MEDS ORDERED: INSUHUMDS SC (11:53)
[2024-03-25] MEDS ORDERED: PEN-371 SC (11:53)
[2024-03-25] MEDS ORDERED: FREEMIS42 TOP (11:53)
[2024-03-25 12:00] VITALS: BP 140/84; TEMP 97.5; O2SAT 95
[2024-03-25 21:11] LABS: URINE STREP PNEUMONIAE ANTIGEN NOT DETECTED (NOT DETECT)
== END 2024-03-25 15:32 | disposition home health service (06) | DRG 871 ==
LOC: M ED 19:27 → M ED INP 03-20 02:57 → M MSPAV 03-20 04:03
PROVIDERS: ADMIT Student in an Organized Health Care Education/Training Program; ATTEND Hospitalist
DX: A41.9 Sepsis, unspecified organism (principal); J18.9 Pneumonia, unspecified organism; J45.901 Unspecified asthma with (acute) exacerbation; E11.65 Type 2 diabetes mellitus with hyperglycemia; M35.00 Sjogren syndrome, unspecified; I10 Essential (primary) hypertension; I48.0 Paroxysmal atrial fibrillation; E78.5 Hyperlipidemia, unspecified; E83.42 Hypomagnesemia; K21.9 Gastro-esophageal reflux disease without esophagitis; M79.7 Fibromyalgia; M06.9 Rheumatoid arthritis, unspecified; Z88.8 Allergy status to other drugs, medicaments and biological substances; Z91.030 Bee allergy status; Z88.0 Allergy status to penicillin; Z79.899 Other long term (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; Z79.82 Long term (current) use of aspirin; Z79.4 Long term (current) use of insulin; Z96.611 Presence of right artificial shoulder joint

== ENCOUNTER → 2024-04-13 | Outpatient (CLI) | payer MEDICARE, BC ==
[~2024-04-13] MED LIST changes: +BREO1INH3 INH; +CEFD300CAP PO; +CHOL1STR MC; +FREEMIS42 TOP; +GLUCMIS7 XX; +HYDR28.39 TOP; +HYOS0.3723 PO; -HYOS0.374 PO; +INSUDET SC; +INSUHUMDS SC; +IPRA0.00 INH; -LEVO750T14 PO; +LEVO75TAB PO; +MAGN400T2 PO; +METH25IN12 INJ; +MONT10TA97 PO; +MUCI600T31 PO; +PEN-371 SC; +PRED20TA PO
[2024-04-13 18:01] LABS: ERYTHROCYTE SEDIMENTATION RATE 39 mm/hr (0-30)
[2024-04-13 18:11] LABS: BASO # 0.1 10^3/uL (0.0-0.2); BASO % 0.9 % (0.0-1.0); EOS # 0.3 10^3/uL (0.0-0.5); EOS % 2.3 % (0.0-3.0); HEMATOCRIT 41.7 % (36.0-47.0); HEMOGLOBIN 13.5 g/dl (12.0-15.5); LYMPH # 1.3 10^3/uL (1.5-5.0); LYMPH % 10.4 % (24.0-44.0); MEAN CORPUSCULAR HEMOGLOBIN 30.2 pg (27.0-33.0); MEAN CORPUSCULAR HGB CONC 32.4 g/dl (32.0-36.5); MEAN CORPUSCULAR VOLUME 93.3 fl (80.0-96.0); MONO # 0.5 10^3/uL (0.0-0.8); NEUTROPHILS # 9.9 10^3/uL (1.5-8.5); NEUTROPHILS % 81.8 % (36.0-66.0); PLATELET COUNT, AUTOMATED 277 10^3/uL (150-450); RED BLOOD COUNT 4.47 10^6/uL (4.00-5.40); WHITE BLOOD COUNT 12.1 10^3/uL (4.0-10.0)
[2024-04-13 18:30] LABS: IMMUNOGLOBULIN A 124.9 MG/DL (40-350); IMMUNOGLOBULIN G 904 MG/DL (650-1600)
[2024-04-13 22:31] LABS: IMMUNOGLOBULIN E 10.9 IU/ML (0-378)
== END ==
LOC: M PLALAB 15:20
PROVIDERS: ATTEND Allergy & Immunology Allergy
DX: D84.9 Immunodeficiency, unspecified (principal)

== ENCOUNTER → 2024-04-15 | Outpatient (CLI) | payer MEDICARE, BC ==
[2024-04-15 14:40] LABS: BASO # 0.1 10^3/uL (0.0-0.2); BASO % 1.1 % (0.0-1.0); EOS # 0.2 10^3/uL (0.0-0.5); EOS % 2.7 % (0.0-3.0); HEMATOCRIT 40.5 % (36.0-47.0); HEMOGLOBIN 13.2 g/dl (12.0-15.5); LYMPH # 1.3 10^3/uL (1.5-5.0); LYMPH % 14.9 % (24.0-44.0); MEAN CORPUSCULAR HEMOGLOBIN 30.2 pg (27.0-33.0); MEAN CORPUSCULAR HGB CONC 32.6 g/dl (32.0-36.5); MEAN CORPUSCULAR VOLUME 92.7 fl (80.0-96.0); MONO # 0.5 10^3/uL (0.0-0.8); MONO % 5.4 % (2.0-8.0); NEUTROPHILS # 6.4 10^3/uL (1.5-8.5); NEUTROPHILS % 75.4 % (36.0-66.0); PLATELET COUNT, AUTOMATED 280 10^3/uL (150-450); RED BLOOD COUNT 4.37 10^6/uL (4.00-5.40); WHITE BLOOD COUNT 8.5 10^3/uL (4.0-10.0)
[2024-04-15 15:03] LABS: IMMUNOGLOBULIN A 133.4 MG/DL (40-350); IMMUNOGLOBULIN G 959 MG/DL (650-1600)
[2024-04-15 15:53] LABS: ALBUMIN 3.8 G/DL (3.2-5.2); ALKALINE PHOSPHATASE 81 U/L (35-104); ALT/SGPT 21 U/L (7.0-40); AST/SGOT 19 U/L (<34); BILIRUBIN,DIRECT 0.2 MG/DL (<0.4); BILIRUBIN,TOTAL 0.7 MG/DL (0.3-1.2); CALCIUM LEVEL 9.6 MG/DL (8.3-10.6); CREATININE FOR GFR 0.77 MG/DL (0.55-1.30); GLOMERULAR FILTRATION RATE > 60.0 (>45); TOTAL PROTEIN 7.6 G/DL (5.7-8.2)
[2024-04-18 15:56] LABS: ANGIOTENSIN 1 CONVERTING ENZYM 78 U/L (9-67)
[2024-04-19 00:17] LABS: CRYTPOCOCCUS SOURCE Serum
[2024-04-19 14:30] LABS: QuantiFERON-TB Gold Plus NEGATIVE (NEGATIVE)
[2024-04-21 17:33] LABS: ASPERGILLUS FLAVUS ABY Negative (Negative); ASPERGILLUS FUMIGATUS ABY Negative (Negative); ASPERGILLUS NIGER ABY Negative (Negative); BLASTOMYCES ANTIBODY LEVEL Negative (Negative)
[2024-04-22 13:47] LABS: ASPERGILLUS FUMIGATUS AB NEGATIVE (NEGATIVE); MICROPOLYSPORA FAENI AB NEGATIVE (NEGATIVE); PIGEON SERUM AB NEGATIVE (NEGATIVE); S VIRIDIS NEGATIVE (NEGATIVE); T CANDIDUS NEGATIVE (NEGATIVE); THERMOACTINOMYCES VULGARIS NEGATIVE (NEGATIVE)
[2024-04-22 20:13] LABS: COCCIDIODES AB IGG NEGATIVE (NEGATIVE); COCCIDIOIDES AB IGM NEGATIVE (NEGATIVE)
== END ==
LOC: M PLALAB 11:16
PROVIDERS: ATTEND Internal Medicine Pulmonary Disease
DX: R91.8 Other nonspecific abnormal finding of lung field (principal)

== ENCOUNTER → 2024-05-19 | Outpatient (CLI) | payer MEDICARE, BC | LOC: M PLAIMG 10:17 | PROVIDERS: ATTEND Internal Medicine Pulmonary Disease | DX: R91.8 Other nonspecific abnormal finding of lung field (principal) ==

== ENCOUNTER → 2024-06-03 | Outpatient (REF) | payer MEDICARE, BC | LOC: M LAB REF 17:38 | PROVIDERS: ATTEND Nurse Practitioner Family | DX: J18.9 Pneumonia, unspecified organism (principal) ==

== ENCOUNTER 2024-10-09 16:26 | Inpatient (IN) | payer MEDICARE, BC ==
[~2024-10-09] VITALS: Ht 162.6 cm; Wt 85.0 kg
[~2024-10-09 16:26] MED LIST changes: +DOXY-442 PO; -DOXY100C82 PO; -FLOM0.4C39 PO; -NYST-13 TOP; +NYST0.1C TOP; +TAMS-18 PO
[2024-10-09 17:20] LABS: BASO # 0.1 10^3/uL (0.0-0.2); BASO % 0.7 % (0.0-1.0); EOS # 0.1 10^3/uL (0.0-0.5); EOS % 1.2 % (0.0-3.0); HEMATOCRIT 39.6 % (36.0-47.0); HEMOGLOBIN 12.8 g/dl (12.0-15.5); LYMPH # 1.9 10^3/uL (1.5-5.0); LYMPH % 22.2 % (24.0-44.0); MEAN CORPUSCULAR HEMOGLOBIN 28.5 pg (27.0-33.0); MEAN CORPUSCULAR HGB CONC 32.3 g/dl (32.0-36.5); MEAN CORPUSCULAR VOLUME 88.2 fl (80.0-96.0); MONO # 0.7 10^3/uL (0.0-0.8); MONO % 8.7 % (2.0-8.0); NEUTROPHILS # 5.6 10^3/uL (1.5-8.5); PLATELET COUNT, AUTOMATED 251 10^3/uL (150-450); RED BLOOD COUNT 4.49 10^6/uL (4.00-5.40); WHITE BLOOD COUNT 8.4 10^3/uL (4.0-10.0)
[2024-10-09 17:51] LABS: ALBUMIN 3.8 G/DL (3.2-5.2); ALKALINE PHOSPHATASE 69 U/L (35-104); ALT/SGPT 21 U/L (7.0-40); AST/SGOT 17 U/L (<34); BILIRUBIN,DIRECT 0.1 MG/DL (<0.4); BILIRUBIN,TOTAL 0.4 MG/DL (0.3-1.2); BLOOD UREA NITROGEN 21 MG/DL (9-23); CARBON DIOXIDE LEVEL 29 MMOL/L (20-31); CHLORIDE LEVEL 104 MMOL/L (98-107); CREATININE FOR GFR 0.68 MG/DL (0.55-1.30); GLOMERULAR FILTRATION RATE > 90.0 (>45); GLUCOSE, FASTING 99 MG/DL (74-106); POTASSIUM SERUM 4.2 MMOL/L (3.5-5.1); SODIUM LEVEL 142 MMOL/L (136-145); TOTAL PROTEIN 6.8 G/DL (5.7-8.2)
[2024-10-09 17:53] LABS: FREE T4 0.99 NG/DL (0.89-1.76)
[2024-10-09] MEDS ORDERED: DICY-61 PO (19:53)
[2024-10-09] MEDS ORDERED: MAGN400T35 PO (20:02)
[2024-10-09] MEDS ORDERED: MOM 30ML SUSPENSION UDC PO PRN (20:05)
[2024-10-09] MEDS ORDERED: DEXTROSE 50% 50ML SYRINGE IV PRN (20:05)
[2024-10-09] MEDS ORDERED: ACETAMINOPHEN 325 MG TAB PO PRN (20:05)
[2024-10-09] MEDS ORDERED: GLUCOSE 4 GM CHEW PO PRN (20:05)
[2024-10-09] MEDS ORDERED: MAALOX 30 ML SUSP *UDC PO PRN (20:05)
[2024-10-09] MEDS ORDERED: GLUCAGON INJ 1MG VIAL SC PRN (20:05)
[2024-10-09] MEDS ORDERED: MONT10TA97 PO (20:07)
[2024-10-09] MEDS ORDERED: LEVOTAB10 PO (20:14)
[2024-10-09] MEDS ORDERED: JARD1TAB3 PO (20:14)
[2024-10-09] MEDS ORDERED: LIDO1PAD TD (20:14)
[2024-10-09] MEDS ORDERED: PRED5TA PO (20:14)
[2024-10-09] MEDS ORDERED: ACET650T61 PO (20:20)
[2024-10-09] MEDS ORDERED: MULT-90 PO (20:20)
[2024-10-09] MEDS ORDERED: SEMA0.257 PO (20:20)
[2024-10-09] MEDS ORDERED: HOME MED LIST COMPLETE! XX SCH (20:25)
[2024-10-09] MEDS: INSULIN LISPRO (NovoLOG) PER UNIT SC SCH (21:00)
[2024-10-09 21:02] LABS: INR 0.89; PARTIAL THROMBOPLASTIN TIME 25.7 SECONDS (24.8-34.2); PROTHROMBIN TIME 12.3 SECONDS (12.5-14.5)
[2024-10-09 21:31] VITALS: BP 132/65; TEMP 98; O2SAT 93
[2024-10-09] MEDS: METOPROLOL TART 25 MG TABLET PO SCH (21:49)
[2024-10-09 22:30] VITALS: O2SAT 94
[2024-10-09] MEDS: RAMELTEON 8 MG TAB PO PRN (22:42)
[2024-10-09 23:30] VITALS: O2SAT 88
[2024-10-09 23:52] VITALS: BP 106/56; TEMP 98.5; O2SAT 94
[2024-10-10] VITALS (26 sets, daily range): BP systolic 103–137; BP diastolic 53–68; TEMP 97.4–97.7; O2SAT 89–97
[2024-10-10 05:29] LABS: HEMATOCRIT 37.5 % (36.0-47.0); HEMOGLOBIN 12.1 g/dl (12.0-15.5); MEAN CORPUSCULAR HEMOGLOBIN 28.9 pg (27.0-33.0); MEAN CORPUSCULAR HGB CONC 32.3 g/dl (32.0-36.5); MEAN CORPUSCULAR VOLUME 89.7 fl (80.0-96.0); PLATELET COUNT, AUTOMATED 223 10^3/uL (150-450); RED BLOOD COUNT 4.18 10^6/uL (4.00-5.40); WHITE BLOOD COUNT 6.6 10^3/uL (4.0-10.0)
[2024-10-10 06:00] LABS: ALBUMIN 3.4 G/DL (3.2-5.2); ALKALINE PHOSPHATASE 62 U/L (35-104); ALT/SGPT 21 U/L (7.0-40); AST/SGOT 19 U/L (<34); BILIRUBIN,TOTAL 0.3 MG/DL (0.3-1.2); BLOOD UREA NITROGEN 19 MG/DL (9-23); CALCIUM LEVEL 8.7 MG/DL (8.3-10.6); CARBON DIOXIDE LEVEL 29 MMOL/L (20-31); CHLORIDE LEVEL 106 MMOL/L (98-107); CREATININE FOR GFR 0.64 MG/DL (0.55-1.30); GLOMERULAR FILTRATION RATE > 90.0 (>45); GLUCOSE, FASTING 101 MG/DL (74-106); MAGNESIUM LEVEL 1.9 MG/DL (1.8-2.4); POTASSIUM SERUM 3.9 MMOL/L (3.5-5.1); SODIUM LEVEL 145 MMOL/L (136-145); TOTAL PROTEIN 6.1 G/DL (5.7-8.2)
[2024-10-10] MEDS: INSULIN LISPRO (NovoLOG) PER UNIT SC SCH (07:30)
[2024-10-10] MEDS ORDERED: IPRATROPIUM 0.5MG/ALBUTEROL 2.5MG INH SOL UD 3ML INH PRN (08:45)
[2024-10-10] MEDS ORDERED: DICYCLOMINE 10 MG CAP PO PRN (08:45)
[2024-10-10] MEDS ORDERED: ALBUTEROL 90 MCG/ACT 8GM HFA INHALER INH PRN (08:45)
[2024-10-10] MEDS: ENOXAPARIN 40MG/0.4ML SYRINGE (J1650 PER 10MG) SC SCH (09:00)
[2024-10-10] MEDS ORDERED: SPIRONOLACTONE 25 MG TAB PO SCH (09:00)
[2024-10-10] MEDS ORDERED: VENLAFAXINE **XR** 75MG CAPSULE PO SCH (09:00)
[2024-10-10] MEDS: METHENAMINE HIPPURATE 1GM TABLET PO SCH (11:09)
[2024-10-10] MEDS: ASPIRIN 81MG ENTERIC TABLET PO SCH (11:09)
[2024-10-10] MEDS: MONTELUKAST 10 MG TAB PO SCH (11:09)
[2024-10-10] MEDS: POTASSIUM CHLORIDE 10MEQ SR TABLET PO SCH (11:10)
[2024-10-10] MEDS: predniSONE 5 MG TAB PO SCH (11:10)
[2024-10-10] MEDS: SCOPOLAMINE 1MG TRANSDERMAL PATCH TOP ONE (19:02)
[2024-10-10] MEDS: clonazePAM 1 MG TAB PO SCH (20:27)
[2024-10-10] MEDS: ATORVASTATIN 20 MG TAB PO SCH (20:28)
[2024-10-10] MEDS: LIDOCAINE 5% (LIDODERM) PATCH TD SCH (20:28)
[2024-10-11] VITALS (31 sets, daily range): BP systolic 100–135; BP diastolic 55–77; TEMP 96.9–98; O2SAT 90–100
[2024-10-11] MEDS ORDERED: METO75TA PO (09:11)
[2024-10-11] MEDS: ACETAMINOPHEN 650MG ER TAB (TYLENOL ARTHRITIS) PO PRN (09:52)
[2024-10-11] MEDS: AMIODARONE HCL 150 MG in IV 1 EA IV ONE (12:10)
[2024-10-11] MEDS: PERCOCET 5MG/325MG TAB PO PRN (13:29)
[2024-10-11] MEDS: METOPROLOL TART 25 MG TABLET PO SCH (20:43)
[2024-10-11] MEDS: AMIODARONE 200 MG TAB PO SCH (20:44)
[2024-10-12] VITALS (17 sets, daily range): BP systolic 120–140; BP diastolic 57–69; TEMP 97.7–98.3; O2SAT 92–98
[2024-10-12 05:22] LABS: HEMATOCRIT 36.2 % (36.0-47.0); HEMOGLOBIN 11.8 g/dl (12.0-15.5); MEAN CORPUSCULAR HEMOGLOBIN 28.7 pg (27.0-33.0); MEAN CORPUSCULAR HGB CONC 32.6 g/dl (32.0-36.5); MEAN CORPUSCULAR VOLUME 88.1 fl (80.0-96.0); PLATELET COUNT, AUTOMATED 235 10^3/uL (150-450); RED BLOOD COUNT 4.11 10^6/uL (4.00-5.40); WHITE BLOOD COUNT 7.2 10^3/uL (4.0-10.0)
[2024-10-12 08:04] LABS: BLOOD UREA NITROGEN 19 MG/DL (9-23); CALCIUM LEVEL 8.4 MG/DL (8.3-10.6); CARBON DIOXIDE LEVEL 30 MMOL/L (20-31); CHLORIDE LEVEL 106 MMOL/L (98-107); CREATININE FOR GFR 0.75 MG/DL (0.55-1.30); GLOMERULAR FILTRATION RATE > 90.0 (>45); GLUCOSE, FASTING 99 MG/DL (74-106); MAGNESIUM LEVEL 1.9 MG/DL (1.8-2.4); POTASSIUM SERUM 3.2 MMOL/L (3.5-5.1); SODIUM LEVEL 145 MMOL/L (136-145)
[2024-10-12] MEDS ORDERED: AMIO400T2 PO (11:37)
[2024-10-12] MEDS ORDERED: LOPR1TAB6 PO (11:38)
[2024-10-12] MEDS ORDERED: TRAN1DIS4 TOP (11:44)
[2024-10-12] MEDS: POTASSIUM CHLORIDE 10MEQ SR TABLET PO ONE (12:28)
== END 2024-10-12 14:40 | disposition home or self-care (01) | DRG 310 ==
LOC: M ED 16:26 → M ED INP 20:02 → M PCU 21:28
PROVIDERS: ADMIT Student in an Organized Health Care Education/Training Program; ATTEND Student in an Organized Health Care Education/Training Program
DX: I48.0 Paroxysmal atrial fibrillation (principal); I10 Essential (primary) hypertension; E11.9 Type 2 diabetes mellitus without complications; K21.9 Gastro-esophageal reflux disease without esophagitis; M06.9 Rheumatoid arthritis, unspecified; E78.5 Hyperlipidemia, unspecified; M79.7 Fibromyalgia; G47.33 Obstructive sleep apnea (adult) (pediatric); Z79.899 Other long term (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; Z79.82 Long term (current) use of aspirin; K58.9 Irritable bowel syndrome, unspecified; F41.9 Anxiety disorder, unspecified; I44.0 Atrioventricular block, first degree; Z91.030 Bee allergy status; Z88.0 Allergy status to penicillin; Z88.8 Allergy status to other drugs, medicaments and biological substances; F39 Unspecified mood [affective] disorder

== ENCOUNTER → 2025-04-23 | Outpatient (CLI) | payer MEDICARE, BC ==
[~2025-04-23] MED LIST changes: -AMIO200T49 PO; +AMIO200T54 PO; +AMIO400T2 PO; +JARD1TAB3 PO; +LEVOTAB10 PO; +LIDO1PAD TD; +LOPR1TAB6 PO; +MAGN400T35 PO; +METH-1100; +METH-1100 PO; -METH-855; -METH-855 PO; +METO75TA PO; +MULT-90 PO; +SEMA0.257 PO; +TRAN1DIS4 TOP
== END ==
LOC: M RAD 10:05
PROVIDERS: ATTEND Physician Assistant
DX: R06.02 Shortness of breath (principal)

== ENCOUNTER → 2025-05-31 | Outpatient (REF) | payer MEDICARE, BC ==
[~2025-05-31] MED LIST changes: -BACTDSTA PO; +SULF-8 PO
== END ==
LOC: M LAB REF 14:26
PROVIDERS: ATTEND Internal Medicine Critical Care Medicine
DX: J18.9 Pneumonia, unspecified organism (principal)